=== PATIENT | male | born 1975 | race African-American/Black ===

== ENCOUNTER 2016-08-03 15:12 | Inpatient (IN) | payer MEDICARE, MEDICAID ==
[~2016-08-03] VITALS: Ht 180.3 cm; Wt 71.2 kg
[2016-08-03] MEDS ORDERED: DiphenhydrAMINE 50mg/ml Inj IVP ONE ×2 (16:00→18:00)
[2016-08-03 16:40] LABS: INR 1.1 (0.9-1.1); PROTHROMBIN TIME 11.4 SEC (9.30-11.50)
[2016-08-03 16:46] LABS: TROPONIN I < 0.30 ng/mL (<=0.30)
[2016-08-03 16:49] LABS: ALANINE AMINOTRANSFERASE 78 U/L (3-41); ALBUMIN/GLOBULIN RATIO 1.5 (1.0-2.7); ANION GAP 10 (5-15); ASPARTATE AMINO TRANSFERASE 64 U/L (5-40); CALCIUM 9.2 mg/dL (8.6-10.2); CARBON DIOXIDE 33 mEQ/L (20-30); CHLORIDE 100 mEQ/L (98-107); CREATININE 0.9 mg/dL (0.7-1.2); GLOMERULAR FILTRATION RATE > 60 mL/min (>60); HEMOLYSIS 8; LACTATE DEHYDROGENASE 390 U/L (135-230); SODIUM 143 mEQ/L (135-145); TOTAL PROTEIN 6.4 g/dL (6.6-8.7)
[2016-08-03 16:54] LABS: MEAN CORPUSCULAR HEMOGLOBIN 31.3 PG (27.0-31.0); MEAN CORPUSCULAR HGB CONC 33.3 G/DL (32.0-36.0); MEAN CORPUSCULAR VOLUME 94 FL (80-99); MEAN PLATELET VOLUME 6.3 FL (6.5-10.1); PLATELET COUNT 489 K/UL (150-450); RED BLOOD COUNT 2.43 M/UL (4.70-6.10); RED CELL DISTRIBUTION WIDTH 19.1 % (11.6-14.8); WHITE BLOOD COUNT 19.8 K/UL (4.8-10.8)
[2016-08-03 16:59] VITALS: BP 120/70
[2016-08-03 17:31] LABS: RETICULOCYTE COUNT 1.9 % (0.0-2.0)
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
[2016-08-03] MEDS ORDERED: Cefepime 1gm vial ONE (17:45)
[2016-08-03] MEDS ORDERED: Cefepime HCl 1 GM in D5W 55 ML IVPB ONE (17:45)
[2016-08-03] MEDS ORDERED: Azithromycin Inj IV ONE (17:45)
[2016-08-03] MEDS ORDERED: Azithromycin 500 MG in D5W 275 ML IVPB ONE (17:45)
[2016-08-03] MEDS ORDERED: HYDROmorphone 1mg/ml Carpuject IVP ONE (18:00)
[2016-08-03 18:14] LABS: BASOPHILS % (MANUAL) 1 % (0-2); EOSINOPHILS % (MANUAL) 10 % (0-3); LYMPHOCYTES % (MANUAL) 38 % (20-45); NEUTROPHILS % (MANUAL) 45 % (45-75); NUCLEATED RED BLOOD CELLS 1 /100 WBC; TOTAL CELLS COUNTED 100
[2016-08-03 18:15] LABS: ANISOCYTOSIS 2+; BAND NEUTROPHILS % (MANUAL) 0 % (0-8); HYPOCHROMASIA 2+; PLATELET ESTIMATE INCREASED; POLYCHROMASIA 1+
[2016-08-03 18:16] LABS: MACROCYTES 2+; TARGET CELLS 1+
[2016-08-03 18:21] LABS: SICKLE CELLS OCCASIONAL
[2016-08-03 19:00] VITALS: BP 107/73
[2016-08-03] MEDS ORDERED: HYDROmorphone 1mg/ml Carpuject IVP PRN (19:15)
[2016-08-03] MEDS ORDERED: METHADONE HCL40 M1 PO (19:27)
[2016-08-03] MEDS ORDERED: DILAUDID8 MG PO (19:28)
[2016-08-03] MEDS ORDERED: BENADRYL25 M3 PO (19:28)
[2016-08-03] MEDS ORDERED: HYDREA500 MG PO (19:29)
[2016-08-03] MEDS ORDERED: FOLIC ACID0.4 MG ORAL (19:38)
[2016-08-03] MEDS ORDERED: HYDROMORPHONE HC2 M1 PO (19:40)
[2016-08-03] MEDS ORDERED: FOLIC ACID1 MG ORAL (19:40)
[2016-08-03] MEDS: Heparin 5000 units/ml inj SUBQ SCH (20:22)
[2016-08-03 22:19] LABS: PATH BLOOD SMEAR/OMC SENT TO PATHOLOGIST
[2016-08-03] MEDS: DiphenhydrAMINE 50mg/ml Inj IVP PRN (22:50)
[2016-08-04] VITALS (7 sets, daily range): BP systolic 109–141; BP diastolic 67–90
[2016-08-04] MEDS: DiphenhydrAMINE 50mg/ml Inj IVP PRN ×4 (05:36→21:29)
[2016-08-04 07:12] LABS: MEAN CORPUSCULAR HEMOGLOBIN 30.4 PG (27.0-31.0); MEAN CORPUSCULAR HGB CONC 32.2 G/DL (32.0-36.0); MEAN CORPUSCULAR VOLUME 95 FL (80-99); MEAN PLATELET VOLUME 6.1 FL (6.5-10.1); PLATELET COUNT 433 K/UL (150-450); RED BLOOD COUNT 2.35 M/UL (4.70-6.10); RED CELL DISTRIBUTION WIDTH 19.3 % (11.6-14.8); WHITE BLOOD COUNT 17.7 K/UL (4.8-10.8)
[2016-08-04 07:32] LABS: ALANINE AMINOTRANSFERASE 73 U/L (3-41); ALBUMIN/GLOBULIN RATIO 1.3 (1.0-2.7); ANION GAP 8 (5-15); ASPARTATE AMINO TRANSFERASE 63 U/L (5-40); CALCIUM 8.9 mg/dL (8.6-10.2); CARBON DIOXIDE 33 mEQ/L (20-30); CHLORIDE 103 mEQ/L (98-107); CREATININE 0.8 mg/dL (0.7-1.2); GLOMERULAR FILTRATION RATE > 60 mL/min (>60); HEMOLYSIS 3; POTASSIUM 5.6 mEQ/L (3.4-4.9); SODIUM 144 mEQ/L (135-145); TOTAL PROTEIN 5.9 g/dL (6.6-8.7)
[2016-08-04] MEDS: Heparin 5000 units/ml inj SUBQ SCH (08:43)
[2016-08-04 10:06] LABS: BAND NEUTROPHILS % (MANUAL) 0 % (0-8); BASOPHILS % (MANUAL) 0 % (0-2); EOSINOPHILS % (MANUAL) 14 % (0-3); LYMPHOCYTES % (MANUAL) 33 % (20-45); NEUTROPHILS % (MANUAL) 45 % (45-75); NUCLEATED RED BLOOD CELLS 1 /100 WBC; PLATELET ESTIMATE ADEQUATE; PLATELET MORPHOLOGY NORMAL; POLYCHROMASIA 1+; TOTAL CELLS COUNTED 100
[2016-08-04 10:07] LABS: SICKLE CELLS OCCASIONAL
[2016-08-04 10:08] LABS: ANISOCYTOSIS 2+; HYPOCHROMASIA 2+; MACROCYTES 1+
[2016-08-04] MEDS ORDERED: Sodium Polystyrene Sulfonate 15gm Powder ORAL ONE (10:30)
[2016-08-04 10:54] LABS: OTHERS PATHOLOGIST COMMENT
[2016-08-04] MEDS: Hydroxyurea 500mg cap ORAL SCH ×2 (11:09→18:25)
--- NOTE | 2016-08-04 11:59 | Diagnostic Imaging Report ---
Indication: Chest Pain Comparison: 11/07/11 A single view chest radiograph was obtained. Findings: Vascular congestion and cardiomegaly are present. There is a right chest port which remains in good position. The bones are osteopenic. Impression: Congestive heart failure is suspected.
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
--- NOTE | 2016-08-04 15:05 | History and Physical ---
History of Present Illness General Date patient seen: Aug 03, 2016 Time patient seen: 17:52 Reason for Hospitalization: Pain Present Illness HPI 40 yo M with sickle cell anemia, b/l hip avascular necrosis and chronic pain p/ w chest pain and productive cough. unable to obtain further history as pt is lethargic. Allergies: Coded Allergies: AMPICILLIN (Verified Allergy, Unknown, 08/03/16) KETOROLAC (Verified Allergy, Unknown, 08/03/16) MORPHINE (Verified Allergy, Unknown, 08/03/16) PHENYTOIN (Verified Allergy, Unknown, 08/03/16) Medication History Scheduled Folic Acid* (Folic Acid*), 1 MG ORAL DAILY, (Reported) Hydroxyurea* (Hydrea*), 500 MG PO BID, (Reported) Methadone Hcl (Methadone Hcl), 40 MG PO EVERY 6 HOURS, (Reported) Scheduled PRN Diphenhydramine HCl (Benadryl), 50 MG PO Q4HR PRN for Itching, (Reported) Hydromorphone Hcl (Hydromorphone Hcl), 14 MG PO Q4HR PRN for For Pain, (Reported ) Discontinued Medications Folic Acid (Folic Acid), Unknown Dose ORAL DAILY, (Reported) Discontinued Reason: Prescription changed Hydromorphone Hcl (Dilaudid), 14 MG PO PRN, (Reported) Discontinued Reason: Prescription changed Patient History Healthcare decision maker Resuscitation status Full Code Advanced Directive on File Past Medical/Surgical History Past Medical/Surgical History: (1) Sickle cell crisis (2) Anemia (3) Pneumonia Family History Family History: Patient reports no known family medical history. Social History Social History: (1) No significant social history Review of Systems All Other Systems: negative except mentioned in HPI Physical Exam General Appearance: alert, lethargic, other - in pain HEENT: normocephalic, atraumatic, anicteric, mucous membranes moist, PERRL, EOMI, pharynx normal, no JVD Neck: non-tender, supple Respiratory/Chest: lungs clear, normal breath sounds, no respiratory distress, no accessory muscle use Cardiovascular/Chest: normal peripheral pulses, normal rate, regular rhythm Abdomen: normal bowel sounds, non tender, soft, no mass Extremities: non-tender, other - L foot toe flexion deformities and tender wound on dorsum Skin Exam: warm/dry Neurologic: social insurance adviser 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, no motor/sensory deficits, alert Musculoskeletal: normal muscle bulk Last 24 Hour Vital Signs Date Time Temp Pulse Resp B/P Pulse Ox O2 Delivery O2 Flow Rate FiO2 08/04/16 12:00 97.2 76 20 137/84 100 Nasal Cannula 6.0 08/04/16 08:00 97.2 70 20 121/89 95 Nasal Cannula 6.0 08/04/16 04:00 97.5 72 20 115/76 100 Nasal Cannula 5.0 08/04/16 00:04 97.2 82 21 114/85 95 Room Air 08/03/16 23:20 98.4 08/03/16 19:21 74 13 110/70 100 Nasal Cannula 6.0 08/03/16 19:00 97.2 80 20 107/73 100 Nasal Cannula 6.0 08/03/16 18:56 98.7 08/03/16 16:59 92 29 120/70 100 Nasal Cannula 6.0 08/03/16 16:39 98.7 08/03/16 15:26 98.8 120 16 122/79 88 Room Air Intake and Output 08/03/16 08/04/16 19:00 07:00 Intake Total 55 ml 1350 ml Output Total 650 ml Balance 55 ml 700 ml Intake IV Total 55 ml 1350 ml Output Urine Total 650 ml # Voids 1 2 Laboratory Tests Test 08/03/16 15:55 08/03/16 16:10 08/03/16 21:45 08/04/16 06:00 White Blood Count 19.8 K/UL (4.8-10.8) H 17.7 K/UL (4.8-10.8) H Red Blood Count 2.43 M/UL (4.70-6.10) L 2.35 M/UL (4.70-6.10) L Hemoglobin 7.6 G/DL (14.2-18.0) L 7.2 G/DL (14.2-18.0) L Hematocrit 22.8 % (42.0-52.0) L 22.2 % (42.0-52.0) L Mean Corpuscular Volume 94 FL (80-99) 95 FL (80-99) Mean Corpuscular Hemoglobin 31.3 PG (27.0-31.0) H 30.4 PG (27.0-31.0) Mean Corpuscular Hemoglobin Concent 33.3 G/DL (32.0-36.0) 32.2 G/DL (32.0-36.0) Red Cell Distribution Width 19.1 % (11.6-14.8) H 19.3 % (11.6-14.8) H Platelet Count 489 K/UL (150-450) H 433 K/UL (150-450) Mean Platelet Volume 6.3 FL (6.5-10.1) L 6.1 FL (6.5-10.1) L Neutrophils (%) (Auto) % (45.0-75.0) % (45.0-75.0) Lymphocytes (%) (Auto) % (20.0-45.0) % (20.0-45.0) Monocytes (%) (Auto) % (1.0-10.0) % (1.0-10.0) Eosinophils (%) (Auto) % (0.0-3.0) % (0.0-3.0) Basophils (%) (Auto) % (0.0-2.0) % (0.0-2.0) Differential Total Cells Counted 100 100 Neutrophils % (Manual) 45 % (45-75) 45 % (45-75) Lymphocytes % (Manual) 38 % (20-45) 33 % (20-45) Monocytes % (Manual) 6 % (1-10) 8 % (1-10) Eosinophils % (Manual) 10 % (0-3) H 14 % (0-3) H Basophils % (Manual) 1 % (0-2) 0 % (0-2) Band Neutrophils 0 % (0-8) 0 % (0-8) Nucleated Red Blood Cells 1 /100 WBC 1 /100 WBC Other Cell Type Pathologist comment Platelet Estimate Increased H Adequate Platelet Morphology See comment Normal Giant Platelets Rare Polychromasia 1+ 1+ Hypochromasia 2+ 2+ Anisocytosis 2+ 2+ Macrocytosis 2+ 1+ Sickle Cells Occasional H Occasional H Target Cells 1+ Reticulocyte Count 1.9 % (0.0-2.0) 3.7 % (0.0-2.0) H Prothrombin Time 11.4 SEC (9.30-11.50) Prothromb Time International Ratio 1.1 (0.9-1.1) Activated Partial Thromboplast Time 33 SEC (23-33) Sodium Level 143 mEQ/L (135-145) 144 mEQ/L (135-145) Potassium Level 5.0 mEQ/L (3.4-4.9) H 5.6 mEQ/L (3.4-4.9) H Chloride Level 100 mEQ/L (98-107) 103 mEQ/L (98-107) Carbon Dioxide Level 33 mEQ/L (20-30) H 33 mEQ/L (20-30) H Anion Gap 10 (5-15) 8 (5-15) Blood Urea Nitrogen 24 mg/dL (7-23) H 22 mg/dL (7-23) Creatinine 0.9 mg/dL (0.7-1.2) 0.8 mg/dL (0.7-1.2) Estimat Glomerular Filtration Rate > 60 mL/min (>60) > 60 mL/min (>60) Glucose Level 86 mg/dL (74-106) 81 mg/dL (74-106) Lactic Acid Level 0.70 mmol/L (0.66-2.22) Calcium Level 9.2 mg/dL (8.6-10.2) 8.9 mg/dL (8.6-10.2) Total Bilirubin 1.0 mg/dL (0.0-1.2) 0.9 mg/dL (0.0-1.2) Aspartate Amino Transf (AST/SGOT) 64 U/L (5-40) H 63 U/L (5-40) H Alanine Aminotransferase (ALT/SGPT) 78 U/L (3-41) H 73 U/L (3-41) H Alkaline Phosphatase 199 U/L (40-129) H 160 U/L (40-129) H Lactate Dehydrogenase 390 U/L (135-230) H Total Creatine Kinase 26 U/L (38-174) L Troponin I < 0.30 ng/mL (<=0.30) Pro-B-Type Natriuretic Peptide 599 pg/mL (0-125) H Total Protein 6.4 g/dL (6.6-8.7) L 5.9 g/dL (6.6-8.7) L Albumin 3.9 g/dL (3.5-5.2) 3.4 g/dL (3.5-5.2) L Globulin 2.5 g/dL 2.5 g/dL Albumin/Globulin Ratio 1.5 (1.0-2.7) 1.3 (1.0-2.7) Urine Opiates Screen Positive (NEGATIVE) H Urine Barbiturates Screen Negative (NEGATIVE) Phencyclidine (PCP) Screen Negative (NEGATIVE) Urine Amphetamines Screen Negative (NEGATIVE) Urine Benzodiazepines Screen Negative (NEGATIVE) Urine Cocaine Screen Negative (NEGATIVE) Urine Marijuana (THC) Screen Negative (NEGATIVE) Hemoglobin A Pending Hemoglobin A2 Pending Hemoglobin C Pending Hemoglobin F () Pending Hemoglobin S Pending Variant Hemoglobin Pending Hemoglobin Electrophoresis Interp Pending Hemoglobin Interpretation Pending Hemoglobin Solubility Pending Ferritin 6935 ng/mL (10-230) H Microbiology Date/Time Source Procedure Growth Status 08/03/16 16:15 Nose Influenza Types A,B Antigen (LEANDRO) - Final Complete Height (Feet): 5 Height (Inches): 11.00 Weight (Pounds): 157 Medications Current Medications Medications (Trade) Dose Ordered Sig/Anthony Route PRN Reason Start Time Stop Time Status Last Admin Dose Admin Acetaminophen (Tylenol) 650 mg Q4H PRN ORAL Mild Pain (Pain Scale 1-3) 08/03/16 19:15 09/02/16 19:14 Acetaminophen (Tylenol) 650 mg Q4H PRN ORAL fever 08/03/16 19:15 09/02/16 19:14 Azithromycin 500 mg/Dextrose 275 ml @ 275 mls/hr Q24HRS IV 08/04/16 18:00 08/10/16 18:59 Ceftriaxone Sodium/Dextrose (Rocephin/D5W) 55 ml @ 110 mls/hr Q24H IVPB 08/04/16 20:00 08/11/16 19:59 Dextrose STAT PRN IV Hypoglycemia 08/03/16 19:15 09/02/16 19:14 Diphenhydramine HCl (Benadryl) 25 mg Q6H PRN IVP Itching 08/03/16 22:45 09/02/16 22:44 08/04/16 11:39 Folic Acid (Folate) 1 mg DAILY ORAL 08/04/16 09:00 09/03/16 08:59 08/04/16 08:42 Heparin Sodium (Porcine) (Heparin 5000 units/ml) 5,000 units EVERY 12 HOURS SUBQ 08/03/16 21:00 09/02/16 20:59 08/04/16 08:43 Hydromorphone HCl (Dilaudid) 1 mg Q4H PRN IVP Moderate Pain (Pain Scale 4-6) 08/03/16 19:15 08/10/16 19:14 Hydromorphone HCl (Dilaudid) 2 mg Q4H PRN IVP Severe Pain (Pain Scale 7-10) 08/03/16 19:15 08/10/16 19:14 08/04/16 11:39 Hydroxyurea (Hydrea) 500 mg BID ORAL 08/04/16 09:00 08/09/16 08:59 08/04/16 11:09 Methadone HCl (Methadone HCl) 40 mg Q6HR ORAL 08/04/16 12:00 08/11/16 11:59 08/04/16 12:25 Ondansetron HCl (Zofran) 4 mg Q6H PRN IVP Nausea & Vomiting 08/03/16 19:15 09/02/16 19:14 Sodium Chloride (Sodium Chloride 1000ml bag) 1,000 ml @ 150 mls/hr Q6H40M IVLG 08/03/16 20:00 09/02/16 19:59 08/04/16 11:10 Assessment/Plan Problem List: (1) Sickle cell crisis ICD Codes: D57.00 - Hb-SS disease with crisis, unspecified SNOMED: 494086613 (2) Anemia ICD Codes: D64.9 - Anemia, unspecified SNOMED: 008549597 (3) Pneumonia ICD Codes: J18.9 - Pneumonia, unspecified organism SNOMED: 359847941 Status: progressing Assessment/Plan med surg IV Dil prn pain resume home dose of methadone folate hydroxyurea c/s heme ctm H and H transfuse if hg <7 O2 Nakita Hwang M.D. Aug 04, 2016 15:05
--- NOTE | 2016-08-04 17:14 | General Progress Note ---
Assessment/Plan Problem List: (1) Sickle cell crisis ICD Codes: D57.00 - Hb-SS disease with crisis, unspecified SNOMED: 643568908 (2) Anemia ICD Codes: D64.9 - Anemia, unspecified SNOMED: 843992508 (3) Pneumonia ICD Codes: J18.9 - Pneumonia, unspecified organism SNOMED: 095385349 Assessment/Plan med surg IV Dil prn pain Ceftriaxone and Azithromycin resume home dose of methadone c/s pain, Zarrini folate hydroxyurea c/s heme ctm H and H transfuse if hg <7 O2 IVF, 150-->75 cc/h Subjective Date patient seen: Aug 04, 2016 Time patient seen: 17:13 Allergies: Coded Allergies: AMPICILLIN (Verified Allergy, Unknown, 08/03/16) KETOROLAC (Verified Allergy, Unknown, 08/03/16) MORPHINE (Verified Allergy, Unknown, 08/03/16) PHENYTOIN (Verified Allergy, Unknown, 08/03/16) Subjective pt requesting to have IV benadryl in place of PO; and wants it every 4 hours Objective Last 24 Hour Vital Signs Date Time Temp Pulse Resp B/P Pulse Ox O2 Delivery O2 Flow Rate FiO2 08/04/16 16:00 97.5 88 18 109/71 81 08/04/16 12:00 97.2 76 20 137/84 100 Nasal Cannula 6.0 08/04/16 08:00 97.2 70 20 121/89 95 Nasal Cannula 6.0 08/04/16 04:00 97.5 72 20 115/76 100 Nasal Cannula 5.0 08/04/16 00:04 97.2 82 21 114/85 95 Room Air 08/03/16 23:20 98.4 08/03/16 19:21 74 13 110/70 100 Nasal Cannula 6.0 08/03/16 19:00 97.2 80 20 107/73 100 Nasal Cannula 6.0 08/03/16 18:56 98.7 Intake and Output 08/03/16 08/04/16 19:00 07:00 Intake Total 55 ml 1350 ml Output Total 650 ml Balance 55 ml 700 ml Intake IV Total 55 ml 1350 ml Output Urine Total 650 ml # Voids 1 2 Laboratory Tests 08/03/16 21:45: Hemoglobin A [Pending], Hemoglobin A2 [Pending], Hemoglobin C [Pending], Hemoglobin F () [Pending], Hemoglobin S [Pending], Variant Hemoglobin [ Pending], Hemoglobin Electrophoresis Interp [Pending], Hemoglobin Interpretation [Pending], Hemoglobin Solubility [Pending], Ferritin 6935H 08/04/16 06:00: White Blood Count 17.7H, Red Blood Count 2.35L, Hemoglobin 7.2L, Hematocrit 22.2L, Mean Corpuscular Volume 95, Mean Corpuscular Hemoglobin 30.4, Mean Corpuscular Hemoglobin Concent 32.2, Red Cell Distribution Width 19.3H, Platelet Count 433, Mean Platelet Volume 6.1L, Neutrophils (%) (Auto) , Lymphocytes (%) (Auto) , Monocytes (%) (Auto) , Eosinophils (%) (Auto) , Basophils (%) (Auto) , Differential Total Cells Counted 100, Neutrophils % ( Manual) 45, Lymphocytes % (Manual) 33, Monocytes % (Manual) 8, Eosinophils % ( Manual) 14H, Basophils % (Manual) 0, Band Neutrophils 0, Nucleated Red Blood Cells 1, Platelet Estimate Adequate, Platelet Morphology Normal, Polychromasia 1 +, Hypochromasia 2+, Anisocytosis 2+, Macrocytosis 1+, Sickle Cells OccasionalH , Reticulocyte Count 3.7H, Sodium Level 144, Potassium Level 5.6H, Chloride Level 103, Carbon Dioxide Level 33H, Anion Gap 8, Blood Urea Nitrogen 22, Creatinine 0.8, Estimat Glomerular Filtration Rate > 60, Glucose Level 81, Calcium Level 8.9, Total Bilirubin 0.9, Aspartate Amino Transf (AST/SGOT) 63H, Alanine Aminotransferase (ALT/SGPT) 73H, Alkaline Phosphatase 160H, Total Protein 5.9L, Albumin 3.4L, Globulin 2.5, Albumin/Globulin Ratio 1.3 Height (Feet): 5 Height (Inches): 11.00 Weight (Pounds): 157 Objective General Appearance: alert, awake and in NAD HEENT: normocephalic, atraumatic, anicteric, mucous membranes moist, PERRL, EOMI, pharynx normal, no JVD Neck: non-tender, supple Respiratory/Chest: bibasilar crackles Cardiovascular/Chest: normal peripheral pulses, normal rate, regular rhythm Abdomen: normal bowel sounds, non tender, soft, no mass Extremities: non-tender, other - L foot toe flexion deformities and tender wound on dorsum Skin Exam: warm/dry Neurologic: outpatient interviewing clerk 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, no motor/sensory deficits, alert Musculoskeletal: normal muscle bulk Nakita Borden M.D. Aug 04, 2016 17:14
[2016-08-04] MEDS: Azithromycin 500 MG in D5W 275 ML IV SCH (17:34)
[2016-08-04] MEDS: cefTRIAXone 1 GM in D5W 55 ML IVPB SCH (20:18)
[2016-08-05] MEDS: DiphenhydrAMINE 50mg/ml Inj IVP PRN ×6 (01:34→22:39)
--- NOTE | 2016-08-05 03:27 | Consultation ---
DATE OF CONSULTATION: 08/04/2016 HEMATOLOGY/ONCOLOGY CONSULTATION REQUESTING PHYSICIAN: Nakita Borden M.D. REASON FOR CONSULTATION: Evaluation of sickle cell crisis. IDENTIFICATION: Dear Dr. Borden: The patient is a pleasant 40-year-old male with a past medical history significant for sickle cell anemia, bilateral hip necrosis avascular, history of stroke at the age of 10, and chronic pain, at this time presents with chest pain as well as productive cough. The patient was lethargic in the ER, however, upon presentation to the floor, he was evaluated by me and has been doing well with his sickle cell disease, relatively stable. He has sickle cell crisis and he has been on hydroxyurea 500 mg p.o. b.i.d., gave Dilaudid here in the ER and is getting Dilaudid every four hours on a p.r.n. basis as well as continued folic acid. He has not been seen by scheduling clerk in the recent past. PAST MEDICAL HISTORY: Sickle cell disease, sickle cell anemia, hip avascular necrosis, and chronic pain. PAST SURGICAL HISTORY: None noted. MEDICATIONS: Hydroxyurea and folic acid at home. Medications currently Benadryl, ceftriaxone, methadone, Dilaudid, Zofran, dextrose, hydroxyurea 500 mg p.o. b.i.d., and heparin 5000 units subcutaneously q.12 h. SOCIAL HISTORY: No alcohol, tobacco, or illicit drug use. FAMILY HISTORY: Does have a history of sickle cell as well in the patient's mother who at the age of 33. REVIEW OF SYSTEMS: Constitutional: No fever, chills, or night sweats. Skin: No rashes, lumps, or itching. HEENT: No headache or vision changes. Breasts: No lumps, pain, or discharge. Pulmonary: Improved breathing at this time. Cardiovascular: The patient does have some chest pain and some tightness, however, no palpitations. Gastrointestinal: No nausea, vomiting, or diarrhea. Genitourinary: No dysuria, frequency, or urgency. Musculoskeletal: No joint swelling, muscle pain, or trauma. Neurological: No dizziness, fainting, or seizures. PHYSICAL EXAMINATION: GENERAL: The patient is in no acute distress. VITAL SIGNS: Temperature is 97.5 degrees Fahrenheit, respiratory rate 12, blood pressure 109/71, and pulse oximetry 100% on nasal cannula of six liters. PULMONARY: Decreased breath sounds bilaterally CARDIOVASCULAR: Regular rate. No S3 or S4. GASTROINTESTINAL: Abdomen is soft, nontender, and nondistended. EXTREMITIES: A 1+ edema. LABORATORY AND DIAGNOSTIC DATA: WBC is 17.7, hemoglobin 7.2, hematocrit 22, and platelet count of 433,000. Reticulocyte count is 1.7. Hemoglobin electrophoresis is pending. BUN of 22, creatinine 0.8. INR of 1.1. Urine toxicology reviewed. ASSESSMENT: 1. Sickle cell crisis without any evidence of acute chest syndrome. The patient's reticulocyte count is elevated. Hemoglobin at this time is 7.2. 2. Leukocytosis, reactive process from anemia. 3. Thrombocytosis probably secondary to reactive process. 4. Avascular necrosis. 5. Pain from sickle cell crisis. 6. Chest pain potentially related to pneumonia, is on antibiotics. 7. Productive cough, likely secondary to pneumonia. RECOMMENDATIONS: 1. Monitor counts. 2. Transfuse to maintain hemoglobin above 7. 3. Continue hydroxyurea 500 mg. 4. Continue folic acid. 5. Hemoglobin electrophoresis ordered. 6. Pain management. 7. DVT prophylaxis with SCDs. Order has been placed. 8. Anemia workup to be reviewed. 9. Peripheral smear ordered. 10. Outpatient Hematology followup has been sent out. 11. The patient will need iron chelation therapy as ferritin is 6935. 12. We will need to check the patient for cardiac as well as iron overload. 13. Will need yearly retinal exam. 14. Will consider to increase hydroxyurea as an outpatient. 15. Continue IV fluids. 16. Discussed with staff. Thank you, Dr. Nakita Borden for this kind referral. Please do not hesitate to contact me if you have any further questions. Marco Dutton M.D. DR: SANA JOB#: [id number] CC:
[2016-08-05 03:53] VITALS: BP 138/101
[2016-08-05 08:00] VITALS: BP 106/72
[2016-08-05] MEDS: Hydroxyurea 500mg cap ORAL SCH ×2 (08:52→17:41)
--- NOTE | 2016-08-05 10:34 | Consultation ---
History of Present Illness General Date patient seen: Aug 05, 2016 Chief Complaint: Pain Present Illness Allergies: Coded Allergies: AMPICILLIN (Verified Allergy, Unknown, 08/03/16) KETOROLAC (Verified Allergy, Unknown, 08/03/16) MORPHINE (Verified Allergy, Unknown, 08/03/16) PHENYTOIN (Verified Allergy, Unknown, 08/03/16) Medication History Scheduled Folic Acid* (Folic Acid*), 1 MG ORAL DAILY, (Reported) Hydroxyurea* (Hydrea*), 500 MG PO BID, (Reported) Methadone Hcl (Methadone Hcl), 40 MG PO EVERY 6 HOURS, (Reported) Scheduled PRN Diphenhydramine HCl (Benadryl), 50 MG PO Q4HR PRN for Itching, (Reported) Hydromorphone Hcl (Hydromorphone Hcl), 14 MG PO Q4HR PRN for For Pain, (Reported ) Discontinued Medications Folic Acid (Folic Acid), Unknown Dose ORAL DAILY, (Reported) Discontinued Reason: Prescription changed Hydromorphone Hcl (Dilaudid), 14 MG PO PRN, (Reported) Discontinued Reason: Prescription changed Patient History Healthcare decision maker Resuscitation status Full Code Advanced Directive on File Physical Exam Last 24 Hour Vital Signs Date Time Temp Pulse Resp B/P Pulse Ox O2 Delivery O2 Flow Rate FiO2 08/05/16 08:00 96.9 77 17 106/72 96 Room Air 08/05/16 03:53 97.2 79 18 138/101 99 Nasal Cannula 2.0 08/04/16 23:53 98.8 80 18 141/90 97 Nasal Cannula 2.0 08/04/16 21:58 97.5 08/04/16 20:00 97.5 84 16 112/67 90 Room Air 08/04/16 16:00 97.5 88 18 109/71 81 08/04/16 12:00 97.2 76 20 137/84 100 Nasal Cannula 6.0 Intake and Output 08/04/16 08/05/16 19:00 07:00 Intake Total 1475 ml 1695 ml Output Total 700 ml 1500 ml Balance 775 ml 195 ml Intake Oral 830 ml IV Total 1475 ml 865 ml Output Urine Total 700 ml 1500 ml # Voids 2 3 # Bowel Movements 1 Height (Feet): 5 Height (Inches): 11.00 Weight (Pounds): 157 Medications Current Medications Medications (Trade) Dose Ordered Sig/Anthony Route PRN Reason Start Time Stop Time Status Last Admin Dose Admin Acetaminophen (Tylenol) 650 mg Q4H PRN ORAL Mild Pain (Pain Scale 1-3) 08/03/16 19:15 09/02/16 19:14 Acetaminophen (Tylenol) 650 mg Q4H PRN ORAL fever 08/03/16 19:15 09/02/16 19:14 Azithromycin 500 mg/Dextrose 275 ml @ 275 mls/hr Q24HRS IV 08/04/16 18:00 08/10/16 18:59 08/04/16 17:34 Ceftriaxone Sodium/Dextrose (Rocephin/D5W) 55 ml @ 110 mls/hr Q24H IVPB 08/04/16 20:00 08/11/16 19:59 08/04/16 20:18 Dextrose STAT PRN IV Hypoglycemia 08/03/16 19:15 09/02/16 19:14 Diphenhydramine HCl (Benadryl) 25 mg EVERY 4 HOURS PRN IVP Itching 08/04/16 21:00 09/03/16 20:59 08/05/16 09:53 Folic Acid (Folate) 1 mg DAILY ORAL 08/04/16 09:00 09/03/16 08:59 08/05/16 08:52 Hydromorphone HCl (Dilaudid) 1 mg Q4H PRN IVP Moderate Pain (Pain Scale 4-6) 08/03/16 19:15 08/10/16 19:14 Hydromorphone HCl (Dilaudid) 2 mg Q4H PRN IVP Severe Pain (Pain Scale 7-10) 08/03/16 19:15 08/10/16 19:14 08/05/16 09:54 Hydroxyurea (Hydrea) 500 mg BID ORAL 08/04/16 09:00 08/09/16 08:59 08/05/16 08:52 Methadone HCl 40 mg 40 mg Q6HR ORAL 08/04/16 12:00 08/11/16 11:59 08/05/16 05:35 Ondansetron HCl (Zofran) 4 mg Q6H PRN IVP Nausea & Vomiting 08/03/16 19:15 09/02/16 19:14 Sodium Chloride (Sodium Chloride 1000ml bag) 1,000 ml @ 75 mls/hr [id number] IVLG 08/04/16 18:00 09/03/16 17:59 08/05/16 05:49 Assessment/Plan Assessment/Plan (1) Sickle Cell Disease (2) Sickle Cell Crisis (4) Intractable pain Seen Dictated ANTIONE PHILLIPS Aug 05, 2016 10:34
[2016-08-05 12:00] VITALS: BP 118/82
[2016-08-05 12:14] LABS: MEAN CORPUSCULAR HEMOGLOBIN 30.1 PG (27.0-31.0); MEAN CORPUSCULAR HGB CONC 32.3 G/DL (32.0-36.0); MEAN CORPUSCULAR VOLUME 93 FL (80-99); MEAN PLATELET VOLUME 7.4 FL (6.5-10.1); PLATELET COUNT 416 K/UL (150-450); RED BLOOD COUNT 2.37 M/UL (4.70-6.10); RED CELL DISTRIBUTION WIDTH 18.3 % (11.6-14.8); WHITE BLOOD COUNT 14.6 K/UL (4.8-10.8)
[2016-08-05 12:29] LABS: ALANINE AMINOTRANSFERASE 84 U/L (3-41); ALBUMIN/GLOBULIN RATIO 1.5 (1.0-2.7); ANION GAP 6 (5-15); ASPARTATE AMINO TRANSFERASE 71 U/L (5-40); CALCIUM 8.5 mg/dL (8.6-10.2); CARBON DIOXIDE 34 mEQ/L (20-30); CHLORIDE 102 mEQ/L (98-107); CREATININE 0.7 mg/dL (0.7-1.2); GLOMERULAR FILTRATION RATE > 60 mL/min (>60); HEMOLYSIS 23; SODIUM 142 mEQ/L (135-145); TOTAL PROTEIN 5.8 g/dL (6.6-8.7)
[2016-08-05 12:43] LABS: ANISOCYTOSIS 1+; BAND NEUTROPHILS % (MANUAL) 0 % (0-8); BASOPHILS % (MANUAL) 0 % (0-2); EOSINOPHILS % (MANUAL) 11 % (0-3); HYPOCHROMASIA 1+; LYMPHOCYTES % (MANUAL) 25 % (20-45); NEUTROPHILS % (MANUAL) 53 % (45-75); NUCLEATED RED BLOOD CELLS 1 /100 WBC; PLATELET ESTIMATE ADEQUATE; PLATELET MORPHOLOGY NORMAL; POLYCHROMASIA 1+; TOTAL CELLS COUNTED 100
[2016-08-05 16:00] VITALS: BP 113/75
[2016-08-05] MEDS: Azithromycin 500 MG in D5W 275 ML IV SCH (17:41)
--- NOTE | 2016-08-05 18:50 | General Progress Note ---
Assessment/Plan Problem List: (1) Sickle cell crisis ICD Codes: D57.00 - Hb-SS disease with crisis, unspecified SNOMED: 925009313 (2) Anemia ICD Codes: D64.9 - Anemia, unspecified SNOMED: 588443484 Qualifiers: Qualified Codes: D64.89 - Other specified anemias (3) Pneumonia ICD Codes: J18.9 - Pneumonia, unspecified organism SNOMED: 566204361 Qualifiers: Qualified Codes: J18.9 - Pneumonia, unspecified organism (4) Avascular necrosis of femur head, left ICD Codes: M87.052 - Idiopathic aseptic necrosis of left femur SNOMED: 691087831 (5) Avascular necrosis of femur head, right ICD Codes: M87.051 - Idiopathic aseptic necrosis of right femur SNOMED: 831482959 Assessment/Plan med surg IV Dil prn pain Ceftriaxone and Azithromycin resume home dose of methadone c/s pain, Zarrini; pt started on baclofen and gabapentin folate hydroxyurea c/s heme ctm H and H transfuse if hg <7 O2 dc IVF, 150-->75 cc/h hip XR Subjective Date patient seen: Aug 05, 2016 Time patient seen: 18:48 Allergies: Coded Allergies: AMPICILLIN (Verified Allergy, Unknown, 08/03/16) KETOROLAC (Verified Allergy, Unknown, 08/03/16) MORPHINE (Verified Allergy, Unknown, 08/03/16) PHENYTOIN (Verified Allergy, Unknown, 08/03/16) Subjective pain controlled; no sob/cp; c/o hip pain L>R Objective Last 24 Hour Vital Signs Date Time Temp Pulse Resp B/P Pulse Ox O2 Delivery O2 Flow Rate FiO2 08/05/16 16:00 97.9 80 16 113/75 08/05/16 14:15 96.8 08/05/16 14:15 96.8 08/05/16 12:00 96.9 77 17 118/82 97 Room Air 08/05/16 08:00 96.9 77 17 106/72 96 Room Air 08/05/16 03:53 97.2 79 18 138/101 99 Nasal Cannula 2.0 08/04/16 23:53 98.8 80 18 141/90 97 Nasal Cannula 2.0 08/04/16 20:00 97.5 84 16 112/67 90 Room Air Intake and Output 08/04/16 08/05/16 19:00 07:00 Intake Total 1475 ml 1695 ml Output Total 700 ml 1500 ml Balance 775 ml 195 ml Intake Oral 830 ml IV Total 1475 ml 865 ml Output Urine Total 700 ml 1500 ml # Voids 2 3 # Bowel Movements 1 Laboratory Tests 08/05/16 11:50: White Blood Count 14.6H, Red Blood Count 2.37L, Hemoglobin 7.1L, Hematocrit 22.1L, Mean Corpuscular Volume 93, Mean Corpuscular Hemoglobin 30.1, Mean Corpuscular Hemoglobin Concent 32.3, Red Cell Distribution Width 18.3H, Platelet Count 416, Mean Platelet Volume 7.4, Neutrophils (%) (Auto) , Lymphocytes (%) (Auto) , Monocytes (%) (Auto) , Eosinophils (%) (Auto) , Basophils (%) (Auto) , Differential Total Cells Counted 100, Neutrophils % ( Manual) 53, Lymphocytes % (Manual) 25, Monocytes % (Manual) 11H, Eosinophils % ( Manual) 11H, Basophils % (Manual) 0, Band Neutrophils 0, Nucleated Red Blood Cells 1, Platelet Estimate Adequate, Platelet Morphology Normal, Polychromasia 1 +, Hypochromasia 1+, Anisocytosis 1+, Reticulocyte Count 5.9H, Sodium Level 142 , Potassium Level 5.0H, Chloride Level 102, Carbon Dioxide Level 34H, Anion Gap 6, Blood Urea Nitrogen 16, Creatinine 0.7, Estimat Glomerular Filtration Rate > 60, Glucose Level 93, Calcium Level 8.5L, Total Bilirubin 0.9, Aspartate Amino Transf (AST/SGOT) 71H, Alanine Aminotransferase (ALT/SGPT) 84H, Alkaline Phosphatase 194H, Total Protein 5.8L, Albumin 3.5, Globulin 2.3, Albumin/ Globulin Ratio 1.5 Height (Feet): 5 Height (Inches): 11.00 Weight (Pounds): 157 Objective General Appearance: alert, awake and in NAD HEENT: normocephalic, atraumatic, anicteric, mucous membranes moist, PERRL, EOMI, pharynx normal, no JVD Neck: non-tender, supple Respiratory/Chest: bibasilar crackles Cardiovascular/Chest: normal peripheral pulses, normal rate, regular rhythm Abdomen: normal bowel sounds, non tender, soft, no mass Extremities: non-tender, other - L foot toe flexion deformities and tender wound on dorsum Skin Exam: warm/dry 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 Aug 05, 2016 18:50
--- NOTE | 2016-08-05 19:40 | General Progress Note ---
Assessment/Plan Assessment/Plan ASSEMENT: 1. Sickle cell crisis with no evidence of acute chest syndrome. Hgb is 7.2 at this time 2. Thrombocytosis likely due to reactive process 3. Leukocytosis due to reactive process from Anemia 4 Avascular Necrosis of the hip 5. Pain from the sickle cell crisis 6. pneumonia - on abx RECOMMENDATIONS: - Monitor cell count -continue hydroxyurea 500mg -continue Folic acid -adequate hydration -pain management -DVT Prophylaxis with SCD out patient Hematology follow up - staff Subjective Constitutional: Reports: malaise, no symptoms, other HEENT: Reports: no symptoms Cardiovascular: Reports: no symptoms Respiratory: Reports: no symptoms Gastrointestinal/Abdominal: Reports: no symptoms 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: Reports: no symptoms Endocrine: Reports: no symptoms Hematologic/Lymphatic: Reports: anemia Allergies: Coded Allergies: AMPICILLIN (Verified Allergy, Unknown, 08/03/16) KETOROLAC (Verified Allergy, Unknown, 08/03/16) MORPHINE (Verified Allergy, Unknown, 08/03/16) PHENYTOIN (Verified Allergy, Unknown, 08/03/16) Subjective patient is some pains from sickle cell crisis Objective Last 24 Hour Vital Signs Date Time Temp Pulse Resp B/P Pulse Ox O2 Delivery O2 Flow Rate FiO2 08/05/16 18:58 97.9 08/05/16 18:40 97.9 08/05/16 16:00 97.9 80 16 113/75 08/05/16 12:00 96.9 77 17 118/82 97 Room Air 08/05/16 08:00 96.9 77 17 106/72 96 Room Air 08/05/16 03:53 97.2 79 18 138/101 99 Nasal Cannula 2.0 Intake and Output 08/05/16 08/05/16 11:00 23:00 Intake Total 975 ml 870 ml Output Total 1500 ml Balance -525 ml 870 ml Intake Oral 450 ml 660 ml IV Total 525 ml 210 ml Output Urine Total 1500 ml # Voids 3 Laboratory Tests 08/05/16 11:50: White Blood Count 14.6H, Red Blood Count 2.37L, Hemoglobin 7.1L, Hematocrit 22.1L, Mean Corpuscular Volume 93, Mean Corpuscular Hemoglobin 30.1, Mean Corpuscular Hemoglobin Concent 32.3, Red Cell Distribution Width 18.3H, Platelet Count 416, Mean Platelet Volume 7.4, Neutrophils (%) (Auto) , Lymphocytes (%) (Auto) , Monocytes (%) (Auto) , Eosinophils (%) (Auto) , Basophils (%) (Auto) , Differential Total Cells Counted 100, Neutrophils % ( Manual) 53, Lymphocytes % (Manual) 25, Monocytes % (Manual) 11H, Eosinophils % ( Manual) 11H, Basophils % (Manual) 0, Band Neutrophils 0, Nucleated Red Blood Cells 1, Platelet Estimate Adequate, Platelet Morphology Normal, Polychromasia 1 +, Hypochromasia 1+, Anisocytosis 1+, Reticulocyte Count 5.9H, Sodium Level 142 , Potassium Level 5.0H, Chloride Level 102, Carbon Dioxide Level 34H, Anion Gap 6, Blood Urea Nitrogen 16, Creatinine 0.7, Estimat Glomerular Filtration Rate > 60, Glucose Level 93, Calcium Level 8.5L, Total Bilirubin 0.9, Aspartate Amino Transf (AST/SGOT) 71H, Alanine Aminotransferase (ALT/SGPT) 84H, Alkaline Phosphatase 194H, Total Protein 5.8L, Albumin 3.5, Globulin 2.3, Albumin/ Globulin Ratio 1.5 Height (Feet): 5 Height (Inches): 11.00 Weight (Pounds): 157 General Appearance: no apparent distress EENT: PERRL/EOMI Neck: supple Cardiovascular: normal rate, regular rhythm Respiratory/Chest: no respiratory distress Abdomen: non tender Extremities: non-tender Edema: 1+ Leg (L), 1+ Leg (R) Neurologic: alert Skin: warm/dry Marco Dutton Aug 05, 2016 19:40
[2016-08-05 20:00] VITALS: BP 128/88
[2016-08-05] MEDS: cefTRIAXone 1 GM in D5W 55 ML IVPB SCH (20:14)
[2016-08-06] VITALS: BP 136/94
[2016-08-06] MEDS: DiphenhydrAMINE 50mg/ml Inj IVP PRN ×5 (02:33→20:34)
[2016-08-06 04:00] VITALS: BP 128/86
[2016-08-06 08:14] VITALS: BP 148/76
[2016-08-06] MEDS: Hydroxyurea 500mg cap ORAL SCH ×2 (08:35→19:02)
--- NOTE | 2016-08-06 10:40 | General Progress Note ---
Assessment/Plan Assessment/Plan ASSEMENT: 1. Sickle cell crisis with no evidence of acute chest syndrome. Hgb >7, retic elevated 2. Thrombocytosis likely due to reactive process 3. Leukocytosis due to reactive process from Anemia 4 Avascular Necrosis of the hip 5. Pain from the sickle cell crisis 6. pneumonia - on abx RECOMMENDATIONS: - Monitor cell count - Continue hydroxyurea 500mg - Continue Folic acid - Adequate hydration - Pain management - DVT Prophylaxis with SCD - Out patient Hematology follow up - staff Sincerely, Alfredo Dutton MD Subjective Constitutional: Reports: no symptoms HEENT: Reports: no symptoms Cardiovascular: Reports: no symptoms Respiratory: Reports: no symptoms Gastrointestinal/Abdominal: Reports: poor appetite Genitourinary: Reports: no symptoms 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: Reports: no symptoms Endocrine: Reports: no symptoms Hematologic/Lymphatic: Reports: anemia Allergies: Coded Allergies: AMPICILLIN (Verified Allergy, Unknown, 08/03/16) KETOROLAC (Verified Allergy, Unknown, 08/03/16) MORPHINE (Verified Allergy, Unknown, 08/03/16) PHENYTOIN (Verified Allergy, Unknown, 08/03/16) Subjective no hematemesis, no fevers, no chills. Pain is better Objective Last 24 Hour Vital Signs Date Time Temp Pulse Resp B/P Pulse Ox O2 Delivery O2 Flow Rate FiO2 08/06/16 08:14 98.3 74 21 148/76 97 Nasal Cannula 2.0 08/06/16 04:00 98.8 88 18 128/86 94 Nasal Cannula 2.0 08/06/16 00:00 98.1 83 18 136/94 93 Nasal Cannula 2.0 08/05/16 23:09 97.7 08/05/16 20:00 97.7 83 16 128/88 94 Room Air 08/05/16 18:40 97.9 08/05/16 16:00 97.9 80 16 113/75 08/05/16 12:00 96.9 77 17 118/82 97 Room Air Intake and Output 08/05/16 08/06/16 19:00 07:00 Intake Total 1145 ml 785 ml Output Total 1400 ml Balance 1145 ml -615 ml Intake Oral 660 ml 730 ml IV Total 485 ml 55 ml Output Urine Total 1400 ml # Voids 3 3 Laboratory Tests 08/05/16 11:50: White Blood Count 14.6H, Red Blood Count 2.37L, Hemoglobin 7.1L, Hematocrit 22.1L, Mean Corpuscular Volume 93, Mean Corpuscular Hemoglobin 30.1, Mean Corpuscular Hemoglobin Concent 32.3, Red Cell Distribution Width 18.3H, Platelet Count 416, Mean Platelet Volume 7.4, Neutrophils (%) (Auto) , Lymphocytes (%) (Auto) , Monocytes (%) (Auto) , Eosinophils (%) (Auto) , Basophils (%) (Auto) , Differential Total Cells Counted 100, Neutrophils % ( Manual) 53, Lymphocytes % (Manual) 25, Monocytes % (Manual) 11H, Eosinophils % ( Manual) 11H, Basophils % (Manual) 0, Band Neutrophils 0, Nucleated Red Blood Cells 1, Platelet Estimate Adequate, Platelet Morphology Normal, Polychromasia 1 +, Hypochromasia 1+, Anisocytosis 1+, Reticulocyte Count 5.9H, Sodium Level 142 , Potassium Level 5.0H, Chloride Level 102, Carbon Dioxide Level 34H, Anion Gap 6, Blood Urea Nitrogen 16, Creatinine 0.7, Estimat Glomerular Filtration Rate > 60, Glucose Level 93, Calcium Level 8.5L, Total Bilirubin 0.9, Aspartate Amino Transf (AST/SGOT) 71H, Alanine Aminotransferase (ALT/SGPT) 84H, Alkaline Phosphatase 194H, Total Protein 5.8L, Albumin 3.5, Globulin 2.3, Albumin/ Globulin Ratio 1.5 08/06/16 06:45: Reticulocyte Count [Pending] Height (Feet): 5 Height (Inches): 11.00 Weight (Pounds): 157 General Appearance: alert EENT: TMs normal Neck: supple Cardiovascular: regular rhythm Respiratory/Chest: lungs clear Abdomen: non tender, no mass Extremities: non-tender Edema: 1+ Leg (L), 1+ Leg (R) Edema: mild edema Neurologic: no motor/sensory deficits Skin: warm/dry ALFREDO DUTTON Aug 06, 2016 10:40
--- NOTE | 2016-08-06 10:42 | Diagnostic Imaging Report ---
Indication: Right hip pain Technique: XRAY HIP 2V RIGHT Comparison: None Findings: There is no acute fracture or dislocation. There is subchondral flattening and irregularity of the femoral head. Sclerosis of the femoral head is also seen. Mild right hip joint space narrowing is present. There is prominent spurring of the femoral head and neck junction. Impression: No acute fracture or dislocation. Subchondral flattening and irregularity of the femoral head. Femoral head sclerosis also noted. Please correlate clinically for avascular necrosis. Mild degenerative right hip joint space narrowing with prominent spurring of the femoral head and neck junction.
[2016-08-06 10:56] LABS: MEAN CORPUSCULAR HEMOGLOBIN 30.7 PG (27.0-31.0); MEAN CORPUSCULAR HGB CONC 32.4 G/DL (32.0-36.0); MEAN CORPUSCULAR VOLUME 95 FL (80-99); MEAN PLATELET VOLUME 6.3 FL (6.5-10.1); PLATELET COUNT 408 K/UL (150-450); RED BLOOD COUNT 2.33 M/UL (4.70-6.10); RED CELL DISTRIBUTION WIDTH 19.1 % (11.6-14.8); WHITE BLOOD COUNT 15.2 K/UL (4.8-10.8)
--- NOTE | 2016-08-06 11:01 | Diagnostic Imaging Report ---
Indication: Left hip pain Technique: XRAY HIP 2V LEFT Comparison: None Findings: There is no acute fracture or dislocation. There is flattening and collapse of the left femoral head. Left femoral head sclerosis is also noted. There is degenerative narrowing of the left hip with spurring of the left femoral head and neck junction. Impression: No acute osseous abnormality. Flattening and collapse of the left femoral head with left femoral head sclerosis suggestive of avascular necrosis. Secondary degenerative changes of the left hip. Clinical correlation recommended.
[2016-08-06 12:01] VITALS: BP 130/94
[2016-08-06 13:15] LABS: ANISOCYTOSIS 2+; BAND NEUTROPHILS % (MANUAL) 0 % (0-8); BASOPHILS % (MANUAL) 0 % (0-2); EOSINOPHILS % (MANUAL) 6 % (0-3); HYPOCHROMASIA 1+; LYMPHOCYTES % (MANUAL) 10 % (20-45); NEUTROPHILS % (MANUAL) 72 % (45-75); PLATELET ESTIMATE ADEQUATE; PLATELET MORPHOLOGY NORMAL; POIKILOCYTOSIS 1+; STOMATOCYTES 1+; TOTAL CELLS COUNTED 100
[2016-08-06] MEDS ORDERED: Tubing IV Secondary IV ONE (15:19)
[2016-08-06 16:01] VITALS: BP 119/82
[2016-08-06 16:51] LABS: ALANINE AMINOTRANSFERASE 79 U/L (3-41); ALBUMIN/GLOBULIN RATIO 1.4 (1.0-2.7); ANION GAP 8 (5-15); ASPARTATE AMINO TRANSFERASE 61 U/L (5-40); CALCIUM 9.1 mg/dL (8.6-10.2); CARBON DIOXIDE 34 mEQ/L (20-30); CHLORIDE 100 mEQ/L (98-107); CREATININE 0.8 mg/dL (0.7-1.2); GLOMERULAR FILTRATION RATE > 60 mL/min (>60); HEMOLYSIS 10; SODIUM 142 mEQ/L (135-145); TOTAL PROTEIN 6.2 g/dL (6.6-8.7)
[2016-08-06] MEDS: Azithromycin 500 MG in D5W 275 ML IV SCH (19:03)
[2016-08-06 20:00] VITALS: BP 109/76
[2016-08-06] MEDS: cefTRIAXone 1 GM in D5W 55 ML IVPB SCH (20:33)
--- NOTE | 2016-08-06 21:12 | General Progress Note ---
Assessment/Plan Status: stable Assessment/Plan (1) Sickle cell crisis ICD Codes: D57.00 - Hb-SS disease with crisis, unspecified SNOMED: 298099302 (2) Anemia ICD Codes: D64.9 - Anemia, unspecified SNOMED: 012988100 Qualifiers: Qualified Codes: D64.89 - Other specified anemias (3) Pneumonia ICD Codes: J18.9 - Pneumonia, unspecified organism SNOMED: 035757138 Qualifiers: Qualified Codes: J18.9 - Pneumonia, unspecified organism (4) Avascular necrosis of femur head, left ICD Codes: M87.052 - Idiopathic aseptic necrosis of left femur SNOMED: 100777936 (5) Avascular necrosis of femur head, right ICD Codes: M87.051 - Idiopathic aseptic necrosis of right femur SNOMED: 933376136 Plan IV Dil prn pain, consider PO trial in am Ceftriaxone and Azithromycin c/w home dose of methadone c/s pain, Zarrini; c/w baclofen and gabapentin folate hydroxyurea ctm H and H transfuse if hg <7 O2 encourage po intake trend CHEM, mild hyperkalemia radiology reviewed, hip xr c/w AVN Head of femur c/w all other mgt. time of note may not reflect time of clinical encounter Subjective Date patient seen: Aug 06, 2016 Constitutional: Reports: malaise, weakness HEENT: Reports: no symptoms Cardiovascular: Reports: chest pain Respiratory: Reports: cough, shortness of breath Gastrointestinal/Abdominal: Reports: abdominal pain Genitourinary: Reports: no symptoms 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: Reports: no symptoms Endocrine: Reports: no symptoms Hematologic/Lymphatic: Reports: anemia Allergies: Coded Allergies: AMPICILLIN (Verified Allergy, Unknown, 08/03/16) KETOROLAC (Verified Allergy, Unknown, 08/03/16) MORPHINE (Verified Allergy, Unknown, 08/03/16) PHENYTOIN (Verified Allergy, Unknown, 08/03/16) Subjective no acute events pain controlled w/ IV opiates wants to try to transition to po pain meds tomorrow Objective Last 24 Hour Vital Signs Date Time Temp Pulse Resp B/P Pulse Ox O2 Delivery O2 Flow Rate FiO2 08/06/16 20:01 98.0 08/06/16 20:01 98.0 08/06/16 16:45 98.0 08/06/16 16:01 98.0 83 19 119/82 97 Nasal Cannula 2.0 08/06/16 12:01 97.7 80 20 130/94 97 Nasal Cannula 2.0 08/06/16 08:14 98.3 74 21 148/76 97 Nasal Cannula 2.0 08/06/16 04:00 98.8 88 18 128/86 94 Nasal Cannula 2.0 08/06/16 00:00 98.1 83 18 136/94 93 Nasal Cannula 2.0 Intake and Output 08/05/16 08/06/16 19:00 07:00 Intake Total 1145 ml 785 ml Output Total 1400 ml Balance 1145 ml -615 ml Intake Oral 660 ml 730 ml IV Total 485 ml 55 ml Output Urine Total 1400 ml # Voids 3 3 Laboratory Tests 08/06/16 06:45: White Blood Count 15.2H, Red Blood Count 2.33L, Hemoglobin 7.2L, Hematocrit 22.1L, Mean Corpuscular Volume 95, Mean Corpuscular Hemoglobin 30.7, Mean Corpuscular Hemoglobin Concent 32.4, Red Cell Distribution Width 19.1H, Platelet Count 408, Mean Platelet Volume 6.3L, Neutrophils (%) (Auto) , Lymphocytes (%) (Auto) , Monocytes (%) (Auto) , Eosinophils (%) (Auto) , Basophils (%) (Auto) , Differential Total Cells Counted 100, Neutrophils % ( Manual) 72, Lymphocytes % (Manual) 10L, Monocytes % (Manual) 12H, Eosinophils % (Manual) 6H, Basophils % (Manual) 0, Band Neutrophils 0, Platelet Estimate Adequate, Platelet Morphology Normal, Hypochromasia 1+, Poikilocytosis 1+, Anisocytosis 2+, Stomatocytes 1+, Reticulocyte Count 3.0H 08/06/16 07:30: Sodium Level 142, Potassium Level 5.0H, Chloride Level 100, Carbon Dioxide Level 34H, Anion Gap 8, Blood Urea Nitrogen 18, Creatinine 0.8, Estimat Glomerular Filtration Rate > 60, Glucose Level 74, Calcium Level 9.1, Total Bilirubin 0.8, Aspartate Amino Transf (AST/SGOT) 61H, Alanine Aminotransferase ( ALT/SGPT) 79H, Alkaline Phosphatase 214H, Total Protein 6.2L, Albumin 3.7, Globulin 2.5, Albumin/Globulin Ratio 1.4 Height (Feet): 5 Height (Inches): 11.00 Weight (Pounds): 157 General Appearance: WD/WN, no apparent distress, alert EENT: PERRL/EOMI Neck: supple Cardiovascular: regular rhythm, regularly irregular, no gallop/murmur, no JVD Respiratory/Chest: chest wall non-tender, lungs clear, normal breath sounds, no accessory muscle use Abdomen: normal bowel sounds, non tender, soft, no organomegaly Edema: no edema noted Arm (L), no edema noted Arm (R), no edema noted Leg (L), no edema noted Leg (R), no edema noted Pedal (L), no edema noted Pedal (R), no edema noted Generalized Neurologic: lpn rn 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, no motor/sensory deficits, alert, oriented x 3 Joe Dalton MD Aug 06, 2016 21:12
[2016-08-07] VITALS: BP 145/98
[2016-08-07] MEDS: DiphenhydrAMINE 50mg/ml Inj IVP PRN ×6 (00:37→20:59)
[2016-08-07 04:00] VITALS: BP 129/79
[2016-08-07 06:42] LABS: MEAN CORPUSCULAR HEMOGLOBIN 30.9 PG (27.0-31.0); MEAN CORPUSCULAR HGB CONC 31.9 G/DL (32.0-36.0); MEAN CORPUSCULAR VOLUME 97 FL (80-99); MEAN PLATELET VOLUME 6.4 FL (6.5-10.1); PLATELET COUNT 418 K/UL (150-450); RED BLOOD COUNT 2.47 M/UL (4.70-6.10); RED CELL DISTRIBUTION WIDTH 18.2 % (11.6-14.8); WHITE BLOOD COUNT 17.8 K/UL (4.8-10.8)
[2016-08-07 07:59] LABS: ANION GAP 8 (5-15); CALCIUM 9.5 mg/dL (8.6-10.2); CARBON DIOXIDE 34 mEQ/L (20-30); CHLORIDE 103 mEQ/L (98-107); CREATININE 0.8 mg/dL (0.7-1.2); GLOMERULAR FILTRATION RATE > 60 mL/min (>60); HEMOLYSIS 8; POTASSIUM 4.7 mEQ/L (3.4-4.9); SODIUM 145 mEQ/L (135-145)
[2016-08-07 08:15] VITALS: BP 143/95
[2016-08-07] MEDS: Hydroxyurea 500mg cap ORAL SCH ×2 (08:42→18:13)
--- NOTE | 2016-08-07 09:22 | General Progress Note ---
Assessment/Plan Assessment/Plan ASSEMENT: 1. Sickle cell crisis with no evidence of acute chest syndrome. Hgb >7, retic elevated 2. Thrombocytosis likely due to reactive process 3. Leukocytosis due to reactive process from anemia 4 Avascular Necrosis of the hip 5. Pain from the sickle cell crisis 6. pneumonia - on abx RECOMMENDATIONS: - Monitor cell count - Continue hydroxyurea 500mg bid - Continue Folic acid - Adequate hydration - Pain management recs - DVT Prophylaxis with SCDs - Out patient Hematology follow up - staff Sincerely, Alfredo Dutton MD Subjective Constitutional: Reports: no symptoms HEENT: Reports: no symptoms Cardiovascular: Reports: no symptoms Respiratory: Reports: no symptoms Gastrointestinal/Abdominal: Reports: poor appetite Genitourinary: Reports: no symptoms 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: Reports: no symptoms Endocrine: Reports: no symptoms Hematologic/Lymphatic: Reports: anemia Allergies: Coded Allergies: AMPICILLIN (Verified Allergy, Unknown, 08/03/16) KETOROLAC (Verified Allergy, Unknown, 08/03/16) MORPHINE (Verified Allergy, Unknown, 08/03/16) PHENYTOIN (Verified Allergy, Unknown, 08/03/16) Subjective no hematemesis, no fevers, no chills. Less anemic Objective Last 24 Hour Vital Signs Date Time Temp Pulse Resp B/P Pulse Ox O2 Delivery O2 Flow Rate FiO2 08/07/16 08:15 97.5 78 19 143/95 97 Nasal Cannula 2.0 08/07/16 04:00 97.9 83 20 129/79 100 Nasal Cannula 3.0 08/07/16 00:00 97.0 70 20 145/98 100 Nasal Cannula 3.0 08/06/16 21:04 98.0 08/06/16 20:01 98.0 08/06/16 20:01 98.0 08/06/16 20:00 99.0 94 18 109/76 98 Nasal Cannula 2.0 08/06/16 16:01 98.0 83 19 119/82 97 Nasal Cannula 2.0 08/06/16 12:01 97.7 80 20 130/94 97 Nasal Cannula 2.0 Intake and Output 08/06/16 08/07/16 19:00 07:00 Intake Total 1440 ml 810 ml Output Total 1700 ml 400 ml Balance -260 ml 410 ml Intake Oral 1440 ml 480 ml IV Total 330 ml Output Urine Total 1700 ml 400 ml # Voids 4 1 Laboratory Tests 08/07/16 04:30: White Blood Count 17.8H, Red Blood Count 2.47L, Hemoglobin 7.6L, Hematocrit 23.9L, Mean Corpuscular Volume 97, Mean Corpuscular Hemoglobin 30.9, Mean Corpuscular Hemoglobin Concent 31.9L, Red Cell Distribution Width 18.2H, Platelet Count 418, Mean Platelet Volume 6.4L, Neutrophils (%) (Auto) , Lymphocytes (%) (Auto) , Monocytes (%) (Auto) , Eosinophils (%) (Auto) , Basophils (%) (Auto) , Neutrophils % (Manual) [Pending], Lymphocytes % (Manual) [Pending], Platelet Estimate [Pending], Platelet Morphology [Pending], Sodium Level 145, Potassium Level 4.7, Chloride Level 103, Carbon Dioxide Level 34H, Anion Gap 8, Blood Urea Nitrogen 19, Creatinine 0.8, Estimat Glomerular Filtration Rate > 60, Glucose Level 116H, Calcium Level 9.5 Height (Feet): 5 Height (Inches): 11.00 Weight (Pounds): 157 General Appearance: no apparent distress EENT: TMs normal Neck: normal alignment Cardiovascular: regular rhythm Respiratory/Chest: lungs clear Abdomen: normal bowel sounds Extremities: non-tender Edema: no edema noted Leg (L), no edema noted Leg (R) Edema: mild edema Neurologic: alert Skin: warm/dry ALFREDO DUTTON Aug 07, 2016 09:22
[2016-08-07 10:47] LABS: ANISOCYTOSIS 1+; BAND NEUTROPHILS % (MANUAL) 0 % (0-8); BASOPHILS % (MANUAL) 0 % (0-2); EOSINOPHILS % (MANUAL) 16 % (0-3); HYPOCHROMASIA 1+; LYMPHOCYTES % (MANUAL) 33 % (20-45); NEUTROPHILS % (MANUAL) 42 % (45-75); NUCLEATED RED BLOOD CELLS 1 /100 WBC; PLATELET ESTIMATE ADEQUATE; PLATELET MORPHOLOGY NORMAL; TOTAL CELLS COUNTED 100
[2016-08-07 10:49] LABS: STOMATOCYTES OCCASIONAL
[2016-08-07 10:50] LABS: POLYCHROMASIA OCCASIONAL
[2016-08-07 11:52] VITALS: BP 134/83
--- NOTE | 2016-08-07 13:58 | General Progress Note ---
Assessment/Plan Problem List: (1) Intractable pain ICD Codes: R52 - Pain, unspecified SNOMED: 43632520 (2) Sickle cell crisis ICD Codes: D57.00 - Hb-SS disease with crisis, unspecified SNOMED: 588421380 (3) Avascular necrosis of femur head, right ICD Codes: M87.051 - Idiopathic aseptic necrosis of right femur SNOMED: 863612743 (4) Avascular necrosis of femur head, left ICD Codes: M87.052 - Idiopathic aseptic necrosis of left femur SNOMED: 853057211 Assessment/Plan Pain is controlled on current regimen. Subjective Constitutional: Denies: chills, diaphoresis, fever, malaise, no symptoms, other , weakness HEENT: Denies: blurred vision, double vision, ear discharge, ear pain, eye pain , mouth pain, mouth swelling, no symptoms, nose congestion, nose pain, other, tearing, throat pain, throat swelling Cardiovascular: Denies: chest pain, edema, irregular heart rate, lightheadedness, no symptoms, other, palpitations, syncope Respiratory: Denies: SOB at rest, SOB with excertion, cough, no symptoms, orthopnea, other, shortness of breath, sputum, stridor, wheezing Gastrointestinal/Abdominal: Denies: abdomen distended, abdominal pain, black stools, blood in stool, constipated, diarrhea, difficulty swallowing, nausea, no symptoms, other, poor appetite, poor fluid intake, rectal bleeding, tarry stools, vomiting 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: Denies: anxiety, depressed, emotional problems, headache, no symptoms, numbness, other, paresthesia, pre-existing deficit, seizure, tingling, tremors, weakness Allergies: Coded Allergies: AMPICILLIN (Verified Allergy, Unknown, 08/03/16) KETOROLAC (Verified Allergy, Unknown, 08/03/16) MORPHINE (Verified Allergy, Unknown, 08/03/16) PHENYTOIN (Verified Allergy, Unknown, 08/03/16) Subjective Pt continues to have severe pain. Pain is tolerable on current regimen. Objective Last 24 Hour Vital Signs Date Time Temp Pulse Resp B/P Pulse Ox O2 Delivery O2 Flow Rate FiO2 08/07/16 11:52 98.2 76 20 134/83 95 Nasal Cannula 2.0 08/07/16 08:15 97.5 78 19 143/95 97 Nasal Cannula 2.0 08/07/16 04:00 97.9 83 20 129/79 100 Nasal Cannula 3.0 08/07/16 00:00 97.0 70 20 145/98 100 Nasal Cannula 3.0 08/06/16 21:04 98.0 08/06/16 20:01 98.0 08/06/16 20:01 98.0 08/06/16 20:00 99.0 94 18 109/76 98 Nasal Cannula 2.0 08/06/16 16:01 98.0 83 19 119/82 97 Nasal Cannula 2.0 Intake and Output 08/06/16 08/07/16 18:59 06:59 Intake Total 1440 ml 810 ml Output Total 1700 ml 400 ml Balance -260 ml 410 ml Intake Oral 1440 ml 480 ml IV Total 330 ml Output Urine Total 1700 ml 400 ml # Voids 4 1 Laboratory Tests 08/07/16 04:30: White Blood Count 17.8H, Red Blood Count 2.47L, Hemoglobin 7.6L, Hematocrit 23.9L, Mean Corpuscular Volume 97, Mean Corpuscular Hemoglobin 30.9, Mean Corpuscular Hemoglobin Concent 31.9L, Red Cell Distribution Width 18.2H, Platelet Count 418, Mean Platelet Volume 6.4L, Neutrophils (%) (Auto) , Lymphocytes (%) (Auto) , Monocytes (%) (Auto) , Eosinophils (%) (Auto) , Basophils (%) (Auto) , Differential Total Cells Counted 100, Neutrophils % ( Manual) 42L, Lymphocytes % (Manual) 33, Monocytes % (Manual) 9, Eosinophils % ( Manual) 16H, Basophils % (Manual) 0, Band Neutrophils 0, Nucleated Red Blood Cells 1, Platelet Estimate Adequate, Platelet Morphology Normal, Polychromasia Occasional, Hypochromasia 1+, Anisocytosis 1+, Sickle Cells , Stomatocytes Occasional, Sodium Level 145, Potassium Level 4.7, Chloride Level 103, Carbon Dioxide Level 34H, Anion Gap 8, Blood Urea Nitrogen 19, Creatinine 0.8, Estimat Glomerular Filtration Rate > 60, Glucose Level 116H, Calcium Level 9.5 Height (Feet): 5 Height (Inches): 11.00 Weight (Pounds): 157 General Appearance: WD/WN EENT: PERRL/EOMI Neck: supple Cardiovascular: normal rate, regular rhythm Respiratory/Chest: lungs clear Abdomen: non tender Extremities: normal inspection Edema: no edema noted Arm (L), no edema noted Arm (R), no edema noted Leg (L), no edema noted Leg (R), no edema noted Pedal (L), no edema noted Pedal (R), no edema noted 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
--- NOTE | 2016-08-07 15:50 | General Progress Note ---
Assessment/Plan Status: stable Assessment/Plan (1) Sickle cell crisis ICD Codes: D57.00 - Hb-SS disease with crisis, unspecified SNOMED: 973797979 (2) Anemia ICD Codes: D64.9 - Anemia, unspecified SNOMED: 944622784 Qualifiers: Qualified Codes: D64.89 - Other specified anemias (3) Pneumonia ICD Codes: J18.9 - Pneumonia, unspecified organism SNOMED: 639099988 Qualifiers: Qualified Codes: J18.9 - Pneumonia, unspecified organism (4) Avascular necrosis of femur head, left ICD Codes: M87.052 - Idiopathic aseptic necrosis of left femur SNOMED: 816791986 (5) Avascular necrosis of femur head, right ICD Codes: M87.051 - Idiopathic aseptic necrosis of right femur SNOMED: 381151726 Plan IV Dil prn pain Ceftriaxone and Azithromycin c/w home dose of methadone c/s pain, Zarrini; c/w baclofen and gabapentin folate hydroxyurea ctm H and H transfuse if hg <7 O2 encourage po intake trend CHEM, mild hyperkalemia radiology reviewed, hip xr c/w AVN Head of femur c/w all other mgt. time of note may not reflect time of clinical encounter Subjective Date patient seen: Aug 07, 2016 Allergies: Coded Allergies: AMPICILLIN (Verified Allergy, Unknown, 08/03/16) KETOROLAC (Verified Allergy, Unknown, 08/03/16) MORPHINE (Verified Allergy, Unknown, 08/03/16) PHENYTOIN (Verified Allergy, Unknown, 08/03/16) Subjective no acute events pain controlled w/ IV opiates not yet ready to transition to oral pain meds Objective Last 24 Hour Vital Signs Date Time Temp Pulse Resp B/P Pulse Ox O2 Delivery O2 Flow Rate FiO2 08/07/16 11:52 98.2 76 20 134/83 95 Nasal Cannula 2.0 08/07/16 08:15 97.5 78 19 143/95 97 Nasal Cannula 2.0 08/07/16 04:00 97.9 83 20 129/79 100 Nasal Cannula 3.0 08/07/16 00:00 97.0 70 20 145/98 100 Nasal Cannula 3.0 08/06/16 21:04 98.0 08/06/16 20:01 98.0 08/06/16 20:01 98.0 08/06/16 20:00 99.0 94 18 109/76 98 Nasal Cannula 2.0 08/06/16 16:01 98.0 83 19 119/82 97 Nasal Cannula 2.0 Intake and Output 08/06/16 08/07/16 19:00 07:00 Intake Total 1440 ml 810 ml Output Total 1700 ml 400 ml Balance -260 ml 410 ml Intake Oral 1440 ml 480 ml IV Total 330 ml Output Urine Total 1700 ml 400 ml # Voids 4 1 Laboratory Tests 08/07/16 04:30: White Blood Count 17.8H, Red Blood Count 2.47L, Hemoglobin 7.6L, Hematocrit 23.9L, Mean Corpuscular Volume 97, Mean Corpuscular Hemoglobin 30.9, Mean Corpuscular Hemoglobin Concent 31.9L, Red Cell Distribution Width 18.2H, Platelet Count 418, Mean Platelet Volume 6.4L, Neutrophils (%) (Auto) , Lymphocytes (%) (Auto) , Monocytes (%) (Auto) , Eosinophils (%) (Auto) , Basophils (%) (Auto) , Differential Total Cells Counted 100, Neutrophils % ( Manual) 42L, Lymphocytes % (Manual) 33, Monocytes % (Manual) 9, Eosinophils % ( Manual) 16H, Basophils % (Manual) 0, Band Neutrophils 0, Nucleated Red Blood Cells 1, Platelet Estimate Adequate, Platelet Morphology Normal, Polychromasia Occasional, Hypochromasia 1+, Anisocytosis 1+, Sickle Cells , Stomatocytes Occasional, Sodium Level 145, Potassium Level 4.7, Chloride Level 103, Carbon Dioxide Level 34H, Anion Gap 8, Blood Urea Nitrogen 19, Creatinine 0.8, Estimat Glomerular Filtration Rate > 60, Glucose Level 116H, Calcium Level 9.5 Height (Feet): 5 Height (Inches): 11.00 Weight (Pounds): 157 Joe Dalton MD Aug 07, 2016 15:50
[2016-08-07 16:00] VITALS: BP 113/51
[2016-08-07] MEDS: Azithromycin 500 MG in D5W 275 ML IV SCH (18:14)
[2016-08-07] MEDS: cefTRIAXone 1 GM in D5W 55 ML IVPB SCH (19:35)
[2016-08-08] VITALS (7 sets, daily range): BP systolic 106–132; BP diastolic 74–94
[2016-08-08] MEDS: DiphenhydrAMINE 50mg/ml Inj IVP PRN ×5 (01:02→19:38)
[2016-08-08] MEDS: Hydroxyurea 500mg cap ORAL SCH ×2 (09:02→18:13)
--- NOTE | 2016-08-08 15:42 | General Progress Note ---
Assessment/Plan Assessment/Plan ASSESSMENT: 1. Sickle cell crisis with no evidence of acute chest syndrome. Hgb >7, retic elevated 2. Thrombocytosis likely due to reactive process 3. Leukocytosis due to reactive process from anemia 4 Avascular Necrosis of the hip 5. Pain from the sickle cell crisis 6. pneumonia - on abx RECOMMENDATIONS: - Monitor cell count - Continue hydroxyurea 500mg bid - Continue Folic acid - Adequate hydration - Pain management recs - DVT Prophylaxis with SCDs - Out patient Hematology follow up ( next wk) - staff Sincerely, Marco Dutton MD Subjective Constitutional: Reports: no symptoms HEENT: Reports: no symptoms Cardiovascular: Reports: no symptoms Respiratory: Reports: no symptoms Gastrointestinal/Abdominal: Reports: poor appetite Genitourinary: Reports: no symptoms 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: Reports: no symptoms Endocrine: Reports: no symptoms Hematologic/Lymphatic: Reports: anemia Allergies: Coded Allergies: AMPICILLIN (Verified Allergy, Unknown, 08/03/16) KETOROLAC (Verified Allergy, Unknown, 08/03/16) MORPHINE (Verified Allergy, Unknown, 08/03/16) PHENYTOIN (Verified Allergy, Unknown, 08/03/16) Subjective pain improved, not bleeding Objective Last 24 Hour Vital Signs Date Time Temp Pulse Resp B/P Pulse Ox O2 Delivery O2 Flow Rate FiO2 08/08/16 12:03 97.6 76 21 131/94 95 Room Air 08/08/16 12:00 98.6 74 20 106/74 97 Nasal Cannula 2.0 08/08/16 08:00 98.8 88 20 120/86 97 Nasal Cannula 2.0 08/08/16 07:38 98.1 08/08/16 04:00 98.1 74 20 130/83 98 Nasal Cannula 2.0 08/08/16 00:00 97.2 81 18 132/88 98 Room Air 08/07/16 20:00 97.7 08/07/16 19:13 98.5 08/07/16 16:00 98.5 80 18 113/51 93 Nasal Cannula 5.0 Intake and Output 08/07/16 08/08/16 19:00 07:00 Intake Total 1200 ml 800 ml Output Total 1200 ml 3150 ml Balance 0 ml -2350 ml Intake Oral 1200 ml 800 ml Output Urine Total 1200 ml 3150 ml # Voids 3 Height (Feet): 5 Height (Inches): 11.00 Weight (Pounds): 157 General Appearance: alert EENT: TMs normal Neck: supple Cardiovascular: regular rhythm Respiratory/Chest: lungs clear Abdomen: non tender Extremities: non-tender Edema: no edema noted Leg (L), no edema noted Leg (R) Edema: mild edema Neurologic: no motor/sensory deficits, responsive Skin: warm/dry Marco Dutton Aug 08, 2016 15:42
--- NOTE | 2016-08-08 17:00 | General Progress Note ---
Assessment/Plan Problem List: (1) Sickle cell crisis ICD Codes: D57.00 - Hb-SS disease with crisis, unspecified SNOMED: 393806974 (2) Anemia ICD Codes: D64.9 - Anemia, unspecified SNOMED: 295974576 Qualifiers: Qualified Codes: D64.89 - Other specified anemias (3) Pneumonia ICD Codes: J18.9 - Pneumonia, unspecified organism SNOMED: 012344001 Qualifiers: Qualified Codes: J18.9 - Pneumonia, unspecified organism (4) Avascular necrosis of femur head, left ICD Codes: M87.052 - Idiopathic aseptic necrosis of left femur SNOMED: 057048902 (5) Avascular necrosis of femur head, right ICD Codes: M87.051 - Idiopathic aseptic necrosis of right femur SNOMED: 911779907 Assessment/Plan med surg IV Dil prn pain Ceftriaxone and Azithromycin resume home dose of methadone c/s pain, Zarrini; pt started on baclofen and gabapentin folate hydroxyurea c/s heme ctm H and H transfuse if hg <7 O2 dc IVF, 150-->75 cc/h hip XR c/w avascular necrosis; o/p ortho f/u Subjective Date patient seen: Aug 08, 2016 Time patient seen: 16:59 Allergies: Coded Allergies: AMPICILLIN (Verified Allergy, Unknown, 08/03/16) KETOROLAC (Verified Allergy, Unknown, 08/03/16) MORPHINE (Verified Allergy, Unknown, 08/03/16) PHENYTOIN (Verified Allergy, Unknown, 08/03/16) Subjective pain controlled; no sob/cp; c/o hip pain L>R Objective Last 24 Hour Vital Signs Date Time Temp Pulse Resp B/P Pulse Ox O2 Delivery O2 Flow Rate FiO2 08/08/16 16:00 97.7 85 16 123/82 95 Room Air 08/08/16 12:03 97.6 76 21 131/94 95 Room Air 08/08/16 12:00 98.6 74 20 106/74 97 Nasal Cannula 2.0 08/08/16 08:00 98.8 88 20 120/86 97 Nasal Cannula 2.0 08/08/16 07:38 98.1 08/08/16 04:00 98.1 74 20 130/83 98 Nasal Cannula 2.0 08/08/16 00:00 97.2 81 18 132/88 98 Room Air 08/07/16 20:00 97.7 08/07/16 19:13 98.5 Intake and Output 08/07/16 08/08/16 19:00 07:00 Intake Total 1200 ml 800 ml Output Total 1200 ml 3150 ml Balance 0 ml -2350 ml Intake Oral 1200 ml 800 ml Output Urine Total 1200 ml 3150 ml # Voids 3 Height (Feet): 5 Height (Inches): 11.00 Weight (Pounds): 157 Objective General Appearance: alert, awake and in NAD HEENT: normocephalic, atraumatic, anicteric, mucous membranes moist, PERRL, EOMI, pharynx normal, no JVD Neck: non-tender, supple Respiratory/Chest: bibasilar crackles Cardiovascular/Chest: normal peripheral pulses, normal rate, regular rhythm Abdomen: normal bowel sounds, non tender, soft, no mass Extremities: non-tender, other - L foot toe flexion deformities and tender wound on dorsum Skin Exam: warm/dry 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 Aug 08, 2016 17:00
[2016-08-08] MEDS: Azithromycin 500 MG in D5W 275 ML IV SCH (18:13)
[2016-08-08] MEDS: cefTRIAXone 1 GM in D5W 55 ML IVPB SCH (19:37)
[2016-08-09] VITALS: BP 135/90
[2016-08-09] MEDS: DiphenhydrAMINE 50mg/ml Inj IVP PRN ×4 (00:26→12:32)
[2016-08-09 04:00] VITALS: BP 141/91
[2016-08-09 08:00] VITALS: BP 122/73
--- NOTE | 2016-08-09 10:12 | Discharge Summary ---
Discharge Summary Hospital Course Date of Admission Aug 03, 2016 at 16:15 Date of Discharge 08/09/16 Admitting Diagnosis sickle crisis HPI Yevgeniy Barrett is a 40 year old male who was admitted on Aug 03, 2016 at 16: 15 for Sickle Crisis Consultations Heme Pain Hospital Course pt was admitted to med surg IV Dil prn pain Ceftriaxone and Azithromycin resumed home dose of methadone c/s pain, Zarrini; pt started on baclofen and gabapentin folate hydroxyurea c/s heme Hg stable in 7's O2 IVF, 150-->75 cc/h hip XR c/w avascular necrosis; o/p ortho f/u Discharge Condition Upon Discharge: stable Discharge Disposition Patient was discharged to home Discharge Diagnoses: (1) Sickle cell crisis (2) Anemia (3) Pneumonia (4) Avascular necrosis of femur head, right (5) Intractable pain (6) Avascular necrosis of femur head, left Nakita Borden M.D. Aug 09, 2016 10:12
[2016-08-09 12:00] VITALS: BP 126/69
--- NOTE | 2016-08-09 14:05 | General Progress Note ---
Assessment/Plan Problem List: (1) Intractable pain ICD Codes: R52 - Pain, unspecified SNOMED: 08978769 (2) Avascular necrosis of femur head, left ICD Codes: M87.052 - Idiopathic aseptic necrosis of left femur SNOMED: 543887143 (3) Sickle cell crisis ICD Codes: D57.00 - Hb-SS disease with crisis, unspecified SNOMED: 711275281 (4) Avascular necrosis of femur head, right ICD Codes: M87.051 - Idiopathic aseptic necrosis of right femur SNOMED: 927481362 Assessment/Plan Pain is controlled on current regimen. As discussed in HPI, will give one week prescription and pt will follow up with me if she wants to slowly taper down her narcotics. Subjective Constitutional: Denies: chills, diaphoresis, fever, malaise, no symptoms, other , weakness HEENT: Denies: blurred vision, double vision, ear discharge, ear pain, eye pain , mouth pain, mouth swelling, no symptoms, nose congestion, nose pain, other, tearing, throat pain, throat swelling Cardiovascular: Denies: chest pain, edema, irregular heart rate, lightheadedness, no symptoms, other, palpitations, syncope Respiratory: Denies: SOB at rest, SOB with excertion, cough, no symptoms, orthopnea, other, shortness of breath, sputum, stridor, wheezing Gastrointestinal/Abdominal: Denies: abdomen distended, abdominal pain, black stools, blood in stool, constipated, diarrhea, difficulty swallowing, nausea, no symptoms, other, poor appetite, poor fluid intake, rectal bleeding, tarry stools, vomiting 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: Denies: anxiety, depressed, emotional problems, headache, no symptoms, numbness, other, paresthesia, pre-existing deficit, tingling, tremors, weakness Allergies: Coded Allergies: AMPICILLIN (Verified Allergy, Unknown, 08/03/16) KETOROLAC (Verified Allergy, Unknown, 08/03/16) MORPHINE (Verified Allergy, Unknown, 08/03/16) PHENYTOIN (Verified Allergy, Unknown, 08/03/16) Subjective Pt c/o severe whole body pain specially back and legs. Pt is getting discharge and needs prescription. I d/w pt in length that the amount of narcotic she takes is dangerously high and needs to taper down karlie. I explained pain induced by narcotic. She is on Methadone 40 mg 4 times a day in hospital plus Dilaudid 2 mg IV that used 5 times yesterday as breakthru. I agrred to give her Methadone 40 mg three times carolynn and Dilaudid 8 mg 4 times a day. She agreed. If she wants continue tapering, will come to my office next week and will reduce her meds and if she is not agreeable with tapering, will continue seeing previous doctor. Objective Last 24 Hour Vital Signs Date Time Temp Pulse Resp B/P Pulse Ox O2 Delivery O2 Flow Rate FiO2 08/09/16 08:00 96.8 82 20 122/73 97 Nasal Cannula 6.0 08/09/16 04:00 98.2 79 18 141/91 100 Nasal Cannula 2.0 08/09/16 00:00 97.5 66 18 135/90 100 Nasal Cannula 2.0 08/08/16 20:10 97.7 08/08/16 20:00 97.6 74 16 119/79 98 Room Air 08/08/16 16:00 97.7 85 16 123/82 95 Room Air Intake and Output 08/08/16 08/09/16 19:00 07:00 Intake Total 1420 ml 360 ml Output Total 800 ml 1200 ml Balance 620 ml -840 ml Intake Oral 1420 ml 360 ml Output Urine Total 800 ml 1200 ml # Voids 3 2 # Bowel Movements 1 Height (Feet): 5 Height (Inches): 11.00 Weight (Pounds): 157 General Appearance: WD/WN EENT: PERRL/EOMI Neck: supple Cardiovascular: normal rate, regular rhythm Respiratory/Chest: lungs clear Abdomen: soft Extremities: non-tender Edema: no edema noted Arm (L), no edema noted Arm (R), no edema noted Leg (L), no edema noted Leg (R), no edema noted Pedal (L), no edema noted Pedal (R), no edema noted 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
[2016-08-09] MEDS ORDERED: Tubing IV Secondary IV ONE (15:09)
--- NOTE | 2016-08-09 16:22 | General Progress Note ---
Assessment/Plan Assessment/Plan ASSESSMENT: 1. Sickle cell crisis with no evidence of acute chest syndrome. Hgb >7, retic elevated 2. Thrombocytosis - due to reactive process 3. Leukocytosis due to reactive process from anemia 4 Avascular Necrosis of the hip 5. Pain from the sickle cell crisis 6. Pneumonia - being treated on abx RECOMMENDATIONS: - Monitor cell count - Continue hydroxyurea 500mg bid - Continue Folic acid - Adequate hydration - Pain management recs - DVT Prophylaxis with SCDs - Out patient Hematology follow up ( next wk) - staff Sincerely, Marco Dutton MD Subjective Constitutional: Reports: no symptoms HEENT: Reports: no symptoms Cardiovascular: Reports: no symptoms Respiratory: Reports: no symptoms Gastrointestinal/Abdominal: Reports: poor appetite Genitourinary: Reports: no symptoms 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: Reports: no symptoms Endocrine: Reports: no symptoms Hematologic/Lymphatic: Reports: anemia Allergies: Coded Allergies: AMPICILLIN (Verified Allergy, Unknown, 08/03/16) KETOROLAC (Verified Allergy, Unknown, 08/03/16) MORPHINE (Verified Allergy, Unknown, 08/03/16) PHENYTOIN (Verified Allergy, Unknown, 08/03/16) Subjective pain improved, is not bleeding,h/h stable Objective Last 24 Hour Vital Signs Date Time Temp Pulse Resp B/P Pulse Ox O2 Delivery O2 Flow Rate FiO2 08/09/16 12:00 97.5 81 20 126/69 98 Nasal Cannula 6.0 08/09/16 08:00 96.8 82 20 122/73 97 Nasal Cannula 6.0 08/09/16 04:00 98.2 79 18 141/91 100 Nasal Cannula 2.0 08/09/16 00:00 97.5 66 18 135/90 100 Nasal Cannula 2.0 08/08/16 20:10 97.7 08/08/16 20:00 97.6 74 16 119/79 98 Room Air Intake and Output 08/08/16 08/09/16 19:00 07:00 Intake Total 1420 ml 360 ml Output Total 800 ml 1200 ml Balance 620 ml -840 ml Intake Oral 1420 ml 360 ml Output Urine Total 800 ml 1200 ml # Voids 3 2 # Bowel Movements 1 Height (Feet): 5 Height (Inches): 11.00 Weight (Pounds): 157 General Appearance: no apparent distress EENT: PERRL/EOMI Neck: non-tender Cardiovascular: normal rate Respiratory/Chest: chest wall non-tender Abdomen: non tender Extremities: non-tender Edema: 1+ Leg (L), 1+ Leg (R) Edema: mild edema Neurologic: abnormal gait Skin: warm/dry Marco Dutton Aug 09, 2016 16:22
[2016-08-10 09:16] LABS: HEMOGLOBIN A 57.8 % (94.0-98.0); HEMOGLOBIN A2 3.4 % (0.7-3.1); HGB S 38.8 % (0.0)
--- NOTE | 2016-08-10 17:17 | Consultation ---
DATE OF CONSULTATION: 08/05/2016 PAIN MANAGEMENT CONSULTATION CONSULTING PHYSICIAN: Oleg Perera M.D. PHYSICIAN RN ADVANCED: KATHLEEN Zambrano. REFERRING PHYSICIAN: Darcy Rollins M.D. CHIEF COMPLAINT: Generalized body pain. History Of Present Illness: This is a 40-year-old male who [place] [facility] [place]. The patient has a known history of sickle cell disease. At this time, he is having a sickle cell crisis with generalized body pain and reporting that he has been having avascular necrosis in bilateral hips causing severe pain and more so with movement and walking, awaiting to be seen by orthopedic surgeon as an outpatient for possible total hip replacement. As an outpatient, the patient had been on high doses of narcotics, last being on methadone 10 mg tablet, receiving 140 tablets a month with Dilaudid 4 mg tablets 168 tablets a month was given last on 07/19/[address] Lucia, however about two months ago on 05/17/2016 the patient had been seen Dr. Walker, napper runner/oncologist where he was receiving methadone 10 mg tablet 600 tablets with Dilaudid 4 mg tablets, 1090 tablets a month. The patient has high narcotic tolerance. The patient was admitted to the hospital due to sickle cell crisis, and now is on methadone 40 mg tablet every six hours around the clock with Dilaudid 1 to 2 mg intravenous as needed for moderate to severe pain. The patient now is comfortable and reporting that his pain has been tolerated well on the current medication regimen and he has no other complaints at this time. PAST MEDICAL HISTORY: Sickle cell disease, sickle cell anemia, hip avascular necrosis, chronic pain. PAST SURGICAL HISTORY: Left leg open reduction and internal fixation and tonsillectomy. SOCIAL HISTORY: Denies smoking tobacco, drinking alcohol, or drug abuse. Allergies: Ampicillin, morphine, and phenytoin. REVIEW OF SYSTEMS: Denies rash, fever, chills, sweating, dizziness, drowsiness, blurred vision, sore throat, or change in hearing or weight. No shortness of breath, chest pain, palpitations. No nausea, vomiting, diarrhea, or blood in the stool, or urine. No bowel or bladder incontinence. No dysuria. He is complaining of generalized body pain. PHYSICAL EXAMINATION: GENERAL: Alert, awake, and oriented x3. VITAL SIGNS: Blood pressure 106/72, heart rate 75, oxygen saturation 96%, respirations 17, and temperature 96.9 degrees Fahrenheit. Height is 5 feet 11 inches. Weight is 155 pounds. HEENT: PERRLA. NECK: Range of motion is full in all directions. No tenderness. No adenopathy. LUNGS: Decreased breath sounds bilaterally. HEART: S1 and S2 regular. ABDOMEN: Benign. BACK: Range of motion is decreased in flexion and extension with tenderness to paraspinous muscles. No tenderness to trapezius or rhomboid muscles. EXTREMITIES: Upper extremities, range of motion is full in all directions. Motor is intact. No cyanosis. No clubbing. No edema. Sensory is intact. Reflexes are normal. No adenopathy. Lower extremities, range of motion is decreased due to the patient's clinical condition. Motor is reduced. No cyanosis. No clubbing. Sensory is reduced. Reflexes are unobtainable. No adenopathy. ASSESSMENT AND PLAN: This is a 40-year-old male with sickle cell disease, sickle cell crisis, and intractable pain. The patient will be continued on methadone 40 mg one tablet every six hours around the clock hold for sedation and Dilaudid 1 to 2 mg IV every four hours as needed for moderate to severe pain. The patient was discussed with Dr. Perera and Dr. Perera concurred. We will follow the patient. Oleg Perera M.D. KATHLEEN Zambrano DR: Vitaly JOB#: [id number] CC: LELAND
--- NOTE | 2016-09-10 03:17 | Cardiology Report ---
APPROVED REPORT EKG Measurement Heart [id number] MD 174P49 [id number] Normal sinus rhythm Possible Left atrial enlargement T wave abnormality, consider anterior ischemia Abnormal ECG
== END 2016-08-09 15:10 | disposition home or self-care (01) | DRG 811 ==
LOC: EMR 15:40 → 4E 16:15 → EDBEDREQ 16:36
DX: D57.00 Hb-SS disease with crisis, unspecified (principal); J18.9 Pneumonia, unspecified organism; M87.851 Other osteonecrosis, right femur; M87.852 Other osteonecrosis, left femur; D47.3 Essential (hemorrhagic) thrombocythemia; Z88.6 Allergy status to analgesic agent; Z88.1 Allergy status to other antibiotic agents; Z88.8 Allergy status to other drugs, medicaments and biological substances; Z86.73 Personal history of transient ischemic attack (TIA), and cerebral infarction without residual deficits; R07.89 Other chest pain; S91.302D Unspecified open wound, left foot, subsequent encounter
CPT/HCPCS: 36415; 71010; 73502; 80048; 80053; 80300; 82550; 82728; 83020; 83605; 83615; 83880; 84484; 85007; 85025; 85044; 85060; 85610; 85730; 86710; 86900; 86901; 87040; 93005; J2405

== ENCOUNTER 2016-08-17 01:21 | Emergency (ER) | payer MEDICARE, MEDICAID ==
[~2016-08-17] VITALS: Ht 180.3 cm; Wt 69.4 kg
[~2016-08-17 01:21] MED LIST: BENADRYL25 M3 PO; DILAUDID8 MG PO; FOLIC ACID0.4 MG ORAL; FOLIC ACID1 MG ORAL; HYDREA500 MG PO; HYDROMORPHONE HC2 M1 PO; METHADONE HCL40 M1 PO
[2016-08-17] MEDS ORDERED: HYDROmorphone 1mg/ml Carpuject IVP ONE (01:45)
--- NOTE | 2016-08-17 01:51 | Emergency Room Report ---
History of Present Illness General Chief Complaint: Chest Pain Source: Patient Present Illness HPI This is a 40-year-old male with history of sickle cell. He said heavy dose of pain medication. At one point, he was on hydromorphone 4 mg. He was getting over 2000 tablets a month. Top of that he was getting methadone 10 mg, 1200 tablets a month. He is being weaned down. He also history of asthma and seizure. He said that he had a tonic clonic seizure activity today. Also has shortness of breath and wheezing. His inhaler is not helping. He has severe pain 10 out of 10. Diffuse in nature. No nausea no vomiting. Denies any fever or chills. he is currently on 4 L of nasal cannula oxygen at home. No other complaint Allergies: Coded Allergies: AMPICILLIN (Verified Allergy, Unknown, 08/03/16) KETOROLAC (Verified Allergy, Unknown, 08/03/16) MORPHINE (Verified Allergy, Unknown, 08/03/16) PHENYTOIN (Verified Allergy, Unknown, 08/03/16) Patient History Past Medical History: see triage record, old chart reviewed Past Surgical History: other Pertinent Family History: none Social History: Denies: drug use Immunizations: other Reviewed Nursing Documentation: PMH: Agreed, PSxH: Agreed Nursing Documentation-PMH Hx Asthma: Yes Hx COPD: Yes Hx Cancer: No Hx Gastrointestinal Problems: No Hx Seizures: Yes Review of Systems Eye: Denies: blurred vision, eye pain ENT: Denies: ear pain, nose congestion, throat swelling Respiratory: Reports: cough, shortness of breath, wheezing Cardiovascular: Reports: chest pain, Denies: palpitations Gastrointestinal: Denies: abdominal pain, diarrhea, nausea, vomiting Musculoskeletal: Denies: back pain, joint pain Skin: Denies: rash Neurological: Denies: headache, numbness Endocrine: Denies: increased thirst, increased urine Hematologic/Lymphatic: Denies: easy bruising All Other Systems: negative except mentioned in HPI Physical Exam Vital Signs Date Time Temp Pulse Resp B/P Pulse Ox O2 Delivery O2 Flow Rate FiO2 08/17/16 01:37 100.2 108 28 139/87 95 Nasal Cannula 2.0 vitals with low-grade fever and tachycardia. Sp02 EP Interpretation: abnormal General Appearance: thin, Chronically Ill Head: normocephalic, atraumatic Eyes: bilateral eye EOMI, bilateral eye PERRL ENT: hearing grossly normal, normal pharynx Neck: full range of motion, supple, no meningismus Respiratory: chest non-tender, lungs clear, normal breath sounds Cardiovascular #1: regular rate, rhythm, no murmur Gastrointestinal: normal bowel sounds, non tender, no mass, no organomegaly, no bruit, non-distended Musculoskeletal: back normal, gait/station normal, normal range of motion Psychiatric: mood/affect normal Skin: warm/dry Medical Decision Making Diagnostic Impression: Primary Impression: Sickle cell anemia with crisis Additional Impressions: Leukocytosis Qualified Codes: D72.829 - Elevated white blood cell count, unspecified Seizure disorder Intractable pain Chest pain Qualified Codes: R07.89 - Other chest pain Opiate dependence, continuous Drug-seeking behavior ER Course Patient presents with reported seizure, not witnessed. He also has sickle cell pain, chest pain and cough. He was dropped off. He was admitted here recently. He said that he never been to any other hospital since. There was a armband on him from [facility] on 08/16/2016. I confirm this when I called them. He was also there on July 19, , , . On the [facility] system, patient was over 2000 tablets of hydromorphone and 1200 tablets of methadone. This has been aggressively weaned down. I suspect that he goes to a different hospital for pain medication because of his addiction. He does have an elevated WBC. Chest x-ray findings appear to be chronic. He does have a leukocytosis. I put him on antibiotics. patient was constantly asking me for Dilaudid. He also asked for Ativan. I am uncomfortable giving him multiple doses of narcotics since he is very sedated already. I was waiting for labs to make the final decision of admitting versus discharge.patient wanted to leave. He is competent to make a decision. I will go ahead and place him on antibiotics. He does not drive. He does have a persistent elevated WBC. I suspect this is chronic for him. Lab Results Impression labs with leukocytosis EKG Diagnostic Results Rate: normal Rhythm: NSR ST Segments: no acute changes Rhythm Strip Diag. Results EP Interpretation: yes Rhythm: NSR, no PVC's, no ectopy Chest X-Ray Diagnostic Results EP Interpretation: Yes Findings: no effusion, no pneumothorax, no acute cardiopulmonary disease, other - Chronic right lower infiltrate. No change from prior Number of Views: 1 Last Vital Signs Date Time Temp Pulse Resp B/P Pulse Ox O2 Delivery O2 Flow Rate FiO2 08/17/16 01:43 108 28 Nasal Cannula 2.0 08/17/16 01:37 100.2 139/87 95 Status: improved Disposition: AGAINST MEDICAL ADVICE Condition: Stable Scripts Levofloxacin* (LEVAQUIN*) 500 Mg Tablet 500 MG ORAL DAILY, #30 TAB Prov: JOSÉ MIGUEL MELENDEZ M.D. 08/17/16 Additional Instructions: Followup with your Dr. in 2-3 days. Take your medication. Return if symptom worsen. JOSÉ MIGUEL MELENDEZ M.D. Aug 17, 2016 01:51
[2016-08-17] MEDS ORDERED: Albuterol ud Inhalation HHN ONE (02:00)
[2016-08-17 02:44] LABS: APPEARANCE,URINE CLEAR; KETONES,URINE NEGATIVE (NEGATIVE); LEUKOCYTE ESTERASE ,URINE 1+ (NEGATIVE); MEAN CORPUSCULAR HEMOGLOBIN 32.2 PG (27.0-31.0); MEAN CORPUSCULAR VOLUME 92 FL (80-99); MEAN PLATELET VOLUME 6.5 FL (6.5-10.1); NITRITE,URINE NEGATIVE (NEGATIVE); PH,URINE 6.5 (4.5-8.0); PLATELET COUNT 390 K/UL (150-450); PROTEIN,URINE 3+ (NEGATIVE); RED BLOOD COUNT 3.13 M/UL (4.70-6.10); UROBILINOGEN,URINE NORMAL MG/DL (0.0-1.0); WHITE BLOOD COUNT 19.4 K/UL (4.8-10.8)
[2016-08-17 02:51] LABS: SQUAMOUS EPITHELIAL CELL,UR FEW /LPF (NONE/OCC); WBC,URINE 0 /HPF (0 - 0)
[2016-08-17 02:53] VITALS: BP 135/92
[2016-08-17 02:55] LABS: ALANINE AMINOTRANSFERASE 45 U/L (3-41); ALBUMIN/GLOBULIN RATIO 1.6 (1.0-2.7); ASPARTATE AMINO TRANSFERASE 52 U/L (5-40); CALCIUM 10.6 mg/dL (8.6-10.2); CARBON DIOXIDE 26 mEQ/L (20-30); CREATININE 0.9 mg/dL (0.7-1.2); GLOMERULAR FILTRATION RATE > 60 mL/min (>60); HEMOLYSIS 15; TOTAL PROTEIN 7.5 g/dL (6.6-8.7)
[2016-08-17 02:56] LABS: CHLORIDE 100 mEQ/L (98-107); POTASSIUM 3.9 mEQ/L (3.4-4.9); SODIUM 140 mEQ/L (135-145)
[2016-08-17 03:07] LABS: TROPONIN I < 0.30 ng/mL (<=0.30)
[2016-08-17 03:16] LABS: INR 1.2 (0.9-1.1); PROTHROMBIN TIME 12.6 SEC (9.30-11.50)
[2016-08-17 04:05] VITALS: BP 130/88
[2016-08-17] MEDS ORDERED: LEVAQUIN500 MG ORAL (04:28)
[2016-08-17 04:33] VITALS: BP 128/88
[2016-08-17 04:34] VITALS: BP 130/88
[2016-08-17 04:35] LABS: RETICULOCYTE COUNT 1.8 % (0.0-2.0)
[2016-08-17 12:58] LABS: BILIRUBIN,DIRECT 0.4 mg/dL (0.1-0.3)
--- NOTE | 2016-08-17 14:15 | Cardiology Report ---
APPROVED REPORT EKG Measurement Heart [id number] IA [id number] Sinus tachycardia Incomplete right bundle branch block Abnormal ECG
--- NOTE | 2016-08-18 08:17 | Diagnostic Imaging Report ---
Indication: SOB Technique: One view of the chest Comparison: 08/03/2016 Findings: Bilateral interstitial and alveolar parenchymal disease appears slightly improved, but considerable disease persists. The pleural spaces remain clear. Right chest catheter is again demonstrated. Heart size is upper limit of normal Impression: Somewhat improved but persistent bilateral infiltrates versus edema, since 08/03/2016 Other findings as noted
== END 2016-08-17 04:35 | disposition home or self-care (01) ==
LOC: EMR 01:40
DX: D57.00 Hb-SS disease with crisis, unspecified (principal); D72.829 Elevated white blood cell count, unspecified; J44.9 Chronic obstructive pulmonary disease, unspecified; J45.909 Unspecified asthma, uncomplicated
CPT/HCPCS: 36415; 71010; 80053; 80184; 81003; 82248; 82550; 83605; 84484; 85025; 85044; 85610; 85730; 86710; 87040; 93005; 94640; 94664; 96374; 96375; 99284; J1170; J1956

== ENCOUNTER 2016-09-09 15:21 | Inpatient (IN) | payer MEDICARE, MEDICAID ==
[~2016-09-09] VITALS: Ht 170.2 cm; Wt 68.0 kg
[~2016-09-09 15:21] MED LIST changes: +LEVAQUIN500 MG ORAL
[2016-09-09] MEDS ORDERED: HYDROmorphone 1mg/ml Carpuject IVP ONE ×2 (15:45→17:30)
[2016-09-09] MEDS ORDERED: DiphenhydrAMINE 50mg/ml Inj IVP ONE (15:45)
[2016-09-09 15:57] VITALS: BP 135/86
[2016-09-09 16:09] LABS: MEAN CORPUSCULAR HEMOGLOBIN 29.7 PG (27.0-31.0); MEAN CORPUSCULAR HGB CONC 31.6 G/DL (32.0-36.0); MEAN CORPUSCULAR VOLUME 94 FL (80-99); MEAN PLATELET VOLUME 6.4 FL (6.5-10.1); PLATELET COUNT 397 K/UL (150-450); RED BLOOD COUNT 2.45 M/UL (4.70-6.10); RED CELL DISTRIBUTION WIDTH 18.2 % (11.6-14.8); WHITE BLOOD COUNT 15.1 K/UL (4.8-10.8)
[2016-09-09] MEDS ORDERED: GABAPENTIN400 MG ORAL (16:29)
[2016-09-09 16:40] LABS: ALANINE AMINOTRANSFERASE 73 U/L (3-41); ALBUMIN/GLOBULIN RATIO 1.9 (1.0-2.7); ANION GAP 8 (5-15); ASPARTATE AMINO TRANSFERASE 59 U/L (5-40); CALCIUM 9.5 mg/dL (8.6-10.2); CARBON DIOXIDE 36 mEQ/L (20-30); CHLORIDE 99 mEQ/L (98-107); CREATININE 0.8 mg/dL (0.7-1.2); GLOMERULAR FILTRATION RATE > 60 mL/min (>60); HEMOLYSIS 6; SODIUM 143 mEQ/L (135-145); TOTAL PROTEIN 6.2 g/dL (6.6-8.7)
--- NOTE | 2016-09-09 16:41 | Diagnostic Imaging Report ---
Indication: Chest pain Technique: One view of the chest Comparison: 08/17/2016 Findings: Right chest port catheter is again demonstrated. Again demonstrated is extensive bilateral parenchymal disease, appearing similar to the prior study although may be minimally worse. The heart remains enlarged. The pleural spaces are clear. Impression: Diffuse bilateral parenchymal disease. Similarity to multiple prior studies suggests that there may be a significant chronic fibrotic component, but superimposed acute interstitial edema is not excludable. Physical findings Mild cardiomegaly
[2016-09-09 16:42] LABS: TROPONIN I < 0.30 ng/mL (<=0.30)
--- NOTE | 2016-09-09 16:44 | Emergency Room Report ---
History of Present Illness General Chief Complaint: General Complaint Source: Patient, Medical Record Present Illness HPI 40-year-old male presents ED complaining of chest pain or shortness of breath, leg pain x4 days. Patient has history of sickle cell disease. States he is "having a crisis". Pain is sharp. 10 out of 10. Nonradiating. No other aggravating or leading factors. Denies improved with Dilaudid and methadone at home. Patient states he was recently admitted to the hospital for sickle crisis. Denies fevers or chills. Denies cough. Patient is on home oxygen. Patient states he has had pain and swelling to both legs. Has history of DVT in the past. Currently not on anticoagulation. Denies any other associated symptoms Allergies: Coded Allergies: AMPICILLIN (Verified Allergy, Unknown, 08/03/16) KETOROLAC (Verified Allergy, Unknown, 08/03/16) MORPHINE (Verified Allergy, Unknown, 08/03/16) PHENYTOIN (Verified Allergy, Unknown, 08/03/16) Patient History Past Medical History: asthma, COPD, seizures, other - sickle cell Past Surgical History: none Pertinent Family History: none Social History: Denies: alcohol use, drug use, smoking Immunizations: UTD Reviewed Nursing Documentation: PMH: Agreed, PSxH: Agreed Nursing Documentation-PMH Past Medical History: No History, Except For Hx Asthma: Yes Hx COPD: Yes Hx Cancer: No Hx Gastrointestinal Problems: No Hx Seizures: Yes Review of Systems All Other Systems: negative except mentioned in HPI Physical Exam Vital Signs Date Time Temp Pulse Resp B/P Pulse Ox O2 Delivery O2 Flow Rate FiO2 09/09/16 15:25 98.4 98 18 135/86 94 Nasal Cannula 6.0 Sp02 EP Interpretation: reviewed, normal General Appearance: alert, GCS 15, non-toxic, mild distress Head: normocephalic, atraumatic Eyes: bilateral eye PERRL, bilateral eye normal inspection ENT: hearing grossly normal, normal pharynx, no angioedema, normal voice Neck: full range of motion, supple/symm/no masses Respiratory: chest non-tender, lungs clear, normal breath sounds, speaking full sentences Cardiovascular #1: regular rate, rhythm, no edema Cardiovascular #2: 2+ carotid (R), 2+ carotid (L), 2+ radial (R), 2+ radial (L) , 2+ dorsalis pedis (R), 2+ dorsalis pedis (L) Gastrointestinal: normal bowel sounds, non tender, soft, non-distended, no guarding, no rebound Rectal: deferred Genitourinary: normal inspection, no CVA tenderness Musculoskeletal: back normal, gait/station normal, normal range of motion, non- tender, calf tenderness, swelling Neurologic: alert, oriented x3, responsive, motor strength/tone normal, sensory intact, speech normal Psychiatric: judgement/insight normal, memory normal, mood/affect normal, no suicidal/homicidal ideation Reflexes: 3+ bicep (R), 3+ bicep (L), 3+ tricep (R), 3+ tricep (L), 3+ knee (R) , 3+ knee (L) Skin: normal color, no rash, warm/dry, well hydrated Lymphatic: no adenopathy Medical Decision Making Diagnostic Impression: Primary Impression: Sickle cell pain crisis Additional Impressions: Sickle cell anemia with pain Pneumonia Qualified Codes: J18.9 - Pneumonia, unspecified organism Intractable pain ER Course Hospital Course 40-year-old M presents ED complaining of chest pain and leg pain. sob. h/o sickle cell Differential diagnoses include: HI/unstable angina, sickle cell crisis, sepsis, UTI, pneumonia, PE Clinical course Patient placed on stretcher. on clinical pharmacy coordinator. After initial history and physical I ordered labs, EKG, chest x-ray, pain medications, bilateral DVT studies, CTA chest labs reviewed- WBC 15, Hb/Hct 7/23, electrolyes ok, LDH elevated, retic elevated Chest x-ray- portacath in place. B/l effusion/infiltrates bilateral DVT studies negative CTA chest - no PE, infiltrates noted Abx given. IV fluids given. Given Dilaudid x2 with pain control Case discussed with Dr. Rollins/Sha and he agreed to accept the patient to his service for further care and support I. I feel this is a highly complex case requiring extensive working including EKG/Rhythm strip, Xray/CT/US, Blood/urine lab work, repeat exams while in ED, and administration of strong opiates/narcotics for pain control, admission to hospital or close patient follow up. Diagnosis - sickle cell crisis, anemia, pneumonia, intractable pain admitted to telemetry in serious condition Labs Test 09/09/16 15:55 White Blood Count 15.1 K/UL (4.8-10.8) Red Blood Count 2.45 M/UL (4.70-6.10) Hemoglobin 7.3 G/DL (14.2-18.0) Hematocrit 23.0 % (42.0-52.0) Mean Corpuscular Volume 94 FL (80-99) Mean Corpuscular Hemoglobin 29.7 PG (27.0-31.0) Mean Corpuscular Hemoglobin Concent 31.6 G/DL (32.0-36.0) Red Cell Distribution Width 18.2 % (11.6-14.8) Platelet Count 397 K/UL (150-450) Mean Platelet Volume 6.4 FL (6.5-10.1) Neutrophils (%) (Auto) % (45.0-75.0) Lymphocytes (%) (Auto) % (20.0-45.0) Monocytes (%) (Auto) % (1.0-10.0) Eosinophils (%) (Auto) % (0.0-3.0) Basophils (%) (Auto) % (0.0-2.0) Differential Total Cells Counted 100 Neutrophils % (Manual) 47 % (45-75) Lymphocytes % (Manual) 36 % (20-45) Monocytes % (Manual) 7 % (1-10) Eosinophils % (Manual) 9 % (0-3) Basophils % (Manual) 0 % (0-2) Band Neutrophils 1 % (0-8) Nucleated Red Blood Cells 9 /100 WBC Platelet Estimate Adequate Platelet Morphology Normal Polychromasia 1+ Hypochromasia 1+ Anisocytosis 2+ Macrocytosis 1+ Target Cells Rare Reticulocyte Count 3.6 % (0.0-2.0) Sodium Level 143 mEQ/L (135-145) Potassium Level 5.0 mEQ/L (3.4-4.9) Chloride Level 99 mEQ/L (98-107) Carbon Dioxide Level 36 mEQ/L (20-30) Anion Gap 8 (5-15) Blood Urea Nitrogen 17 mg/dL (7-23) Creatinine 0.8 mg/dL (0.7-1.2) Estimat Glomerular Filtration Rate > 60 mL/min (>60) Glucose Level 89 mg/dL (74-106) Calcium Level 9.5 mg/dL (8.6-10.2) Total Bilirubin 1.0 mg/dL (0.0-1.2) Aspartate Amino Transf (AST/SGOT) 59 U/L (5-40) Alanine Aminotransferase (ALT/SGPT) 73 U/L (3-41) Alkaline Phosphatase 150 U/L (40-129) Lactate Dehydrogenase 456 U/L (135-225) Total Creatine Kinase 28 U/L (38-174) Creatine Kinase MB 1.7 ng/mL (< 6.7) Creatine Kinase MB Relative Index 6.0 Troponin I < 0.30 ng/mL (<=0.30) Pro-B-Type Natriuretic Peptide 632 pg/mL (0-125) Total Protein 6.2 g/dL (6.6-8.7) Albumin 4.1 g/dL (3.5-5.2) Globulin 2.1 g/dL Albumin/Globulin Ratio 1.9 (1.0-2.7) EKG Diagnostic Results Rate: normal Rhythm: NSR ST Segments: no acute changes ASA given to the pt in ED: No Rhythm Strip Diag. Results EP Interpretation: yes Rhythm: NSR, no PVC's, no ectopy Chest X-Ray Diagnostic Results EP Interpretation: No Findings: no pneumothorax, no acute cardiopulmonary disease, other - bilateral parenchymal disease. cardiomegaly. port catheter in right chest Number of Views: 1 CT/MRI/US Diagnostic Results CT/MRI/US Diagnostic Results : Imaging Test Ordered: CTA chest Impression CTA chest - no PE, b/l effusion vs infiltrate Last Vital Signs Date Time Temp Pulse Resp B/P Pulse Ox O2 Delivery O2 Flow Rate FiO2 09/09/16 15:57 98.4 18 135/86 94 Nasal Cannula 6.0 09/09/16 15:25 98 Status: improved Disposition: ADMITTED INPATIENT Condition: Serious Referrals: NOT CHOSEN EITAN/,REFERRING (PCP) CLARE ROYAL M.D. Sep 09, 2016 16:44
[2016-09-09 16:50] LABS: CKMB 1.7 ng/mL (< 6.7)
[2016-09-09 17:00] VITALS: BP 138/96
[2016-09-09 17:51] LABS: BAND NEUTROPHILS % (MANUAL) 1 % (0-8); EOSINOPHILS % (MANUAL) 9 % (0-3); LYMPHOCYTES % (MANUAL) 36 % (20-45); NEUTROPHILS % (MANUAL) 47 % (45-75); NUCLEATED RED BLOOD CELLS 9 /100 WBC; TOTAL CELLS COUNTED 100
[2016-09-09 17:53] LABS: ANISOCYTOSIS 2+; BASOPHILS % (MANUAL) 0 % (0-2); HYPOCHROMASIA 1+; MACROCYTES 1+; PLATELET ESTIMATE ADEQUATE; PLATELET MORPHOLOGY NORMAL; POLYCHROMASIA 1+; TARGET CELLS RARE
[2016-09-09] MEDS ORDERED: Azithromycin 500 MG in NS 275 ML IV ONE (18:30)
[2016-09-09] MEDS ORDERED: Cefepime HCl 1 GM in NS 55 ML IV ONE (18:30)
[2016-09-09 18:39] LABS: RETICULOCYTE COUNT 3.6 % (0.0-2.0)
[2016-09-09] MEDS ORDERED: Cefepime 1gm vial ONE (18:41)
[2016-09-09] MEDS ORDERED: Azithromycin Inj IV ONE (18:41)
[2016-09-09 18:51] VITALS: BP 109/75
[2016-09-09] MEDS ORDERED: HYDROmorphone 1mg/ml Carpuject IVP PRN (21:30)
[2016-09-09] MEDS ORDERED: Zolpidem 5mg tab ORAL PRN (21:30)
[2016-09-09] MEDS: DiphenhydrAMINE 50mg/ml Inj IVP PRN (22:43)
[2016-09-10] VITALS (7 sets, daily range): BP systolic 121–150; BP diastolic 73–100
[2016-09-10] MEDS: DiphenhydrAMINE 50mg/ml Inj IVP PRN ×4 (03:20→19:32)
[2016-09-10] MEDS: Cefepime HCl 1 GM in D5W 55 ML IVPB SCH ×3 (05:37→22:24)
[2016-09-10] MEDS: Hydroxyurea 500mg cap ORAL SCH ×2 (08:14→18:36)
--- NOTE | 2016-09-10 12:50 | History and Physical ---
History of Present Illness General Date patient seen: Sep 10, 2016 Time patient seen: 12:50 Reason for Hospitalization: increased pain, chest pain, SOB Present Illness HPI 40 y/o male with pmh of sickle cell anemia, b/l hip avascular necrosis, chronic pain, opioid dependence who presents with increased pain including chest pain and SOB. Pt c/o chest pain or shortness of breath, leg pain x4 days. Pt states he is "having a crisis". Pain is sharp. 10 out of 10. Nonradiating. No other aggravating or leading factors. Not improved with Dilaudid and methadone at home. Denies fevers or chills. Notes cough productive of yellowish sputum. Patient is on home oxygen. Patient states he has had pain and swelling to both legs. Has history of DVT in the past. Currently not on anticoagulation. Denies any other associated symptoms In ED, pt had CTA chest which was negative PE. There was concern for PNA, and pt was started on cefepime and azithromycin. Allergies: Coded Allergies: AMPICILLIN (Verified Allergy, Unknown, 08/03/16) KETOROLAC (Verified Allergy, Unknown, 08/03/16) MORPHINE (Verified Allergy, Unknown, 08/03/16) PHENYTOIN (Verified Allergy, Unknown, 08/03/16) Medication History Scheduled Folic Acid* (Folic Acid*), 1 MG ORAL DAILY, (Reported) Gabapentin* (Gabapentin*), 500 MG ORAL THREE TIMES A DAY, (Reported) Hydroxyurea* (Hydrea*), 500 MG PO BID, (Reported) Levofloxacin* (Levaquin*), 500 MG ORAL DAILY Methadone Hcl (Methadone Hcl), 60 MG PO EVERY 6 HOURS, (Reported) Scheduled PRN Diphenhydramine HCl (Benadryl), 50 MG PO Q4HR PRN for Itching, (Reported) Hydromorphone Hcl (Hydromorphone Hcl), 14 MG PO Q4HR PRN for For Pain, (Reported ) Patient History History Provided By: Patient Healthcare decision maker Resuscitation status Full Code Advanced Directive on File No Family History Family History: Patient reports no known family medical history. Social History Social History: (1) No significant social history Review of Systems All Other Systems: negative except mentioned in HPI ROS Narrative CONSTITUTIONAL: No weight loss, fever, chills, weakness or fatigue. HEENT: Eyes: No visual loss, blurred vision, double vision or yellow sclerae. Ears, Nose, Throat: No hearing loss, sneezing, congestion, runny nose or sore throat. SKIN: No rash or itching. CARDIOVASCULAR: +chest pain, chest pressure or chest discomfort. No palpitations or edema. RESPIRATORY: +shortness of breath, cough or sputum. GASTROINTESTINAL: No anorexia, nausea, vomiting or diarrhea. No abdominal pain or blood. NEUROLOGICAL: No headache, dizziness, syncope, paralysis, ataxia, numbness or tingling in the extremities. No change in bowel or bladder control. MUSCULOSKELETAL: No muscle, back pain, joint pain or stiffness. HEMATOLOGIC: No anemia, bleeding or bruising. LYMPHATICS: No enlarged nodes. No history of splenectomy. PSYCHIATRIC: No history of depression or anxiety. ENDOCRINOLOGIC: No reports of sweating, cold or heat intolerance. No polyuria or polydipsia. ALLERGIES: No history of asthma, hives, eczema or rhinitis. Physical Exam Physical Exam Narrative General: alert, cooperative, no distress, appears stated age Head: normocephalic, without obvious abnormality, atraumatic Eyes: conjunctivae/corneas clear. PERRL, EOM's intact Throat: lips, mucosa, and tongue normal. MMM Neck: supple, symmetrical, trachea midline, and no JVD Lungs: +rhonchi b/l Heart: regular rate and rhythm, S1, S2 normal, no murmur, click, rub or gallop Abdomen: soft, non-tender, non-distended, bowel sounds normal; no masses or organomegaly Extremities: extremities normal, atraumatic, no cyanosis or edema Pulses: 2+ and symmetric Skin: skin color, texture, turgor normal; no rashes or lesions Neurologic: grossly normal, no focal deficits Last 24 Hour Vital Signs Date Time Temp Pulse Resp B/P Pulse Ox O2 Delivery O2 Flow Rate FiO2 09/10/16 11:37 97.0 78 20 126/85 94 Nasal Cannula 6.0 09/10/16 08:50 98.8 09/10/16 08:50 98.8 09/10/16 08:21 97.3 73 20 150/79 95 Nasal Cannula 6.0 09/10/16 08:00 79 09/10/16 07:10 Room Air 09/10/16 07:10 99 Room Air 09/10/16 04:20 145/95 09/10/16 04:15 98.8 90 19 146/100 95 09/10/16 04:00 84 09/10/16 00:25 98.8 95 20 124/90 99 Room Air 09/10/16 00:00 96 09/09/16 19:00 98.4 95 18 109/75 95 Nasal Cannula 6.0 09/09/16 18:51 95 18 109/75 95 Nasal Cannula 6.0 09/09/16 17:45 98.4 09/09/16 17:29 98.4 09/09/16 17:00 79 18 138/96 100 Nasal Cannula 6.0 09/09/16 15:57 98.4 18 135/86 94 Nasal Cannula 6.0 09/09/16 15:25 98.4 98 18 135/86 94 Nasal Cannula 6.0 Intake and Output 09/09/16 09/10/16 19:00 07:00 Intake Total 0 ml 1255 ml Output Total 1400 ml Balance 0 ml -145 ml Intake Oral 0 ml IV Total 1255 ml Output Urine Total 1400 ml Laboratory Tests Test 09/09/16 15:55 White Blood Count 15.1 K/UL (4.8-10.8) H Red Blood Count 2.45 M/UL (4.70-6.10) L Hemoglobin 7.3 G/DL (14.2-18.0) L Hematocrit 23.0 % (42.0-52.0) L Mean Corpuscular Volume 94 FL (80-99) Mean Corpuscular Hemoglobin 29.7 PG (27.0-31.0) Mean Corpuscular Hemoglobin Concent 31.6 G/DL (32.0-36.0) L Red Cell Distribution Width 18.2 % (11.6-14.8) H Platelet Count 397 K/UL (150-450) Mean Platelet Volume 6.4 FL (6.5-10.1) L Neutrophils (%) (Auto) % (45.0-75.0) Lymphocytes (%) (Auto) % (20.0-45.0) Monocytes (%) (Auto) % (1.0-10.0) Eosinophils (%) (Auto) % (0.0-3.0) Basophils (%) (Auto) % (0.0-2.0) Differential Total Cells Counted 100 Neutrophils % (Manual) 47 % (45-75) Lymphocytes % (Manual) 36 % (20-45) Monocytes % (Manual) 7 % (1-10) Eosinophils % (Manual) 9 % (0-3) H Basophils % (Manual) 0 % (0-2) Band Neutrophils 1 % (0-8) Nucleated Red Blood Cells 9 /100 WBC Platelet Estimate Adequate Platelet Morphology Normal Polychromasia 1+ Hypochromasia 1+ Anisocytosis 2+ Macrocytosis 1+ Target Cells Rare Reticulocyte Count 3.6 % (0.0-2.0) H Sodium Level 143 mEQ/L (135-145) Potassium Level 5.0 mEQ/L (3.4-4.9) H Chloride Level 99 mEQ/L (98-107) Carbon Dioxide Level 36 mEQ/L (20-30) H Anion Gap 8 (5-15) Blood Urea Nitrogen 17 mg/dL (7-23) Creatinine 0.8 mg/dL (0.7-1.2) Estimat Glomerular Filtration Rate > 60 mL/min (>60) Glucose Level 89 mg/dL (74-106) Calcium Level 9.5 mg/dL (8.6-10.2) Total Bilirubin 1.0 mg/dL (0.0-1.2) Aspartate Amino Transf (AST/SGOT) 59 U/L (5-40) H Alanine Aminotransferase (ALT/SGPT) 73 U/L (3-41) H Alkaline Phosphatase 150 U/L (40-129) H Lactate Dehydrogenase 456 U/L (135-225) H Total Creatine Kinase 28 U/L (38-174) L Creatine Kinase MB 1.7 ng/mL (< 6.7) Creatine Kinase MB Relative Index 6.0 Troponin I < 0.30 ng/mL (<=0.30) Pro-B-Type Natriuretic Peptide 632 pg/mL (0-125) H Total Protein 6.2 g/dL (6.6-8.7) L Albumin 4.1 g/dL (3.5-5.2) Globulin 2.1 g/dL Albumin/Globulin Ratio 1.9 (1.0-2.7) Height (Feet): 5 Height (Inches): 7.00 Weight (Pounds): 150 Medications Current Medications Medications (Trade) Dose Ordered Sig/Anthony Route PRN Reason Start Time Stop Time Status Last Admin Dose Admin Azithromycin/ Dextrose (Zithromax/D5W) 275 ml @ 275 mls/hr Q24HRS IV 09/10/16 16:00 09/15/16 16:59 Cefepime HCl 1 gm/ Dextrose 55 ml @ 110 mls/hr EVERY 8 HOURS IVPB 09/10/16 06:00 09/17/16 05:59 09/10/16 05:37 Dextrose STAT PRN IV Hypoglycemia 09/09/16 21:30 10/09/16 21:29 Diphenhydramine HCl (Benadryl) 50 mg Q4H PRN IVP Itching 09/09/16 22:15 10/09/16 22:14 09/10/16 08:15 Folic Acid (Folate) 1 mg DAILY ORAL 09/10/16 09:00 10/10/16 08:59 09/10/16 08:23 Gabapentin (Neurontin) 600 mg THREE TIMES A DAY ORAL 09/10/16 09:00 10/10/16 08:59 09/10/16 08:14 Hydromorphone HCl (Dilaudid) 1 mg Q4HR PRN IVP Moderate Pain (Pain Scale 4-6) 09/09/16 21:30 09/16/16 21:29 Hydromorphone HCl (Dilaudid) 2 mg Q4HR PRN IVP Severe Pain (Pain Scale 7-10) 09/09/16 21:30 09/16/16 21:29 09/10/16 08:23 Hydroxyurea (Hydrea) 500 mg TWICE A DAY ORAL 09/10/16 09:00 09/15/16 08:59 09/10/16 08:14 Methadone HCl (Methadone HCl) 60 mg EVERY 6 HOURS ORAL 09/10/16 00:00 09/17/16 00:00 09/10/16 12:46 Ondansetron HCl (Zofran) 4 mg EVERY 4 HOURS PRN IVP Nausea & Vomiting 09/09/16 21:30 10/09/16 21:29 Sodium Chloride (Sodium Chloride 1000ml bag) 1,000 ml @ 150 mls/hr Q6H40M IVLG 09/09/16 22:30 10/09/16 22:29 09/10/16 12:46 Zolpidem Tartrate (Ambien) 5 mg DAILYPRN PRN ORAL Insomnia 09/09/16 21:30 10/09/16 21:29 Assessment/Plan Problem List: (1) Sickle cell pain crisis ICD Codes: D57.00 - Hb-SS disease with crisis, unspecified SNOMED: 173800396 (2) Interstitial lung disease ICD Codes: J84.9 - Interstitial pulmonary disease, unspecified SNOMED: 15037546, 622714083 (3) Pneumonia ICD Codes: J18.9 - Pneumonia, unspecified organism SNOMED: 363684918 Qualifiers: Qualified Codes: J18.9 - Pneumonia, unspecified organism (4) Intractable pain ICD Codes: R52 - Pain, unspecified SNOMED: 64717539 Status: stable Assessment/Plan - Admit to inpt - Hematology consulted - Pulmonology consulted - Cont abx for possible pneumonia: cefepime and azithro (09/10-) - Check resp culture - Check TTE - Monitor cell counts - Continue hydroxyurea 500mg bid - Continue Folic acid - IVFs - Pain mgmt consulted DVT Prophylaxis: SCD Code Status: Full Hospital Classification Declaration: Based on this initial evaluation, and depending on the patient's clinical course, I anticipate that this patient will require hospitalization for 2-3 days for sickle cell crisis, and close respiratory/hemodynamic monitoring. Disposition: Once the patient is stable to leave the hospital, I anticipate the patient will likely be discharged to the following environment: home vs home w/ hh I spent 72 minutes on this patient's case, and 38 minutes were dedicated to counseling and/or care coordination. Discussed with patient/family, nursing staff, SW/DAGOBERTO, pulm, heme regarding clinical status, treatment course, and disposition planning. Time of note may not reflect time of encounter. Jerri Samaniego M.D. Sep 10, 2016 12:50
[2016-09-10 14:32] LABS: MEAN CORPUSCULAR HEMOGLOBIN 30.9 PG (27.0-31.0); MEAN CORPUSCULAR VOLUME 94 FL (80-99); MEAN PLATELET VOLUME 6.6 FL (6.5-10.1); PLATELET COUNT 405 K/UL (150-450); RED BLOOD COUNT 2.54 M/UL (4.70-6.10); RED CELL DISTRIBUTION WIDTH 19.7 % (11.6-14.8); WHITE BLOOD COUNT 13.4 K/UL (4.8-10.8)
[2016-09-10 14:56] LABS: ANION GAP 10 (5-15); CALCIUM 8.7 mg/dL (8.6-10.2); CARBON DIOXIDE 33 mEQ/L (20-30); CHLORIDE 100 mEQ/L (98-107); CREATININE 0.7 mg/dL (0.7-1.2); GLOMERULAR FILTRATION RATE > 60 mL/min (>60); HEMOLYSIS 11; POTASSIUM 4.8 mEQ/L (3.4-4.9); SODIUM 143 mEQ/L (135-145)
[2016-09-10 15:58] LABS: BASOPHILS % (MANUAL) 1 % (0-2); EOSINOPHILS % (MANUAL) 11 % (0-3); LYMPHOCYTES % (MANUAL) 38 % (20-45); NEUTROPHILS % (MANUAL) 42 % (45-75); TOTAL CELLS COUNTED 100
[2016-09-10] MEDS ORDERED: Azithromycin 500 MG in D5W 275 ML IV SCH (16:00)
[2016-09-10 16:01] LABS: ANISOCYTOSIS 3+; HYPOCHROMASIA 3+; POLYCHROMASIA 1+
[2016-09-10 16:02] LABS: BAND NEUTROPHILS % (MANUAL) 0 % (0-8); PLATELET ESTIMATE ADEQUATE; PLATELET MORPHOLOGY NORMAL; TARGET CELLS 1+
[2016-09-10] MEDS ORDERED: Tubing IV Secondary IV ONE (17:00)
[2016-09-11] VITALS: BP 141/92
[2016-09-11] MEDS: DiphenhydrAMINE 50mg/ml Inj IVP PRN ×5 (00:04→19:04)
[2016-09-11 04:00] VITALS: BP 127/56
[2016-09-11] MEDS: Cefepime HCl 1 GM in D5W 55 ML IVPB SCH ×3 (05:24→22:31)
[2016-09-11 07:38] LABS: ANION GAP 8 (5-15); CALCIUM 8.6 mg/dL (8.6-10.2); CARBON DIOXIDE 34 mEQ/L (20-30); CHLORIDE 101 mEQ/L (98-107); CREATININE 0.7 mg/dL (0.7-1.2); GLOMERULAR FILTRATION RATE > 60 mL/min (>60); HEMOLYSIS 5; POTASSIUM 4.8 mEQ/L (3.4-4.9); SODIUM 143 mEQ/L (135-145)
[2016-09-11 07:43] LABS: MEAN CORPUSCULAR HEMOGLOBIN 31.7 PG (27.0-31.0); MEAN CORPUSCULAR HGB CONC 33.2 G/DL (32.0-36.0); MEAN CORPUSCULAR VOLUME 95 FL (80-99); MEAN PLATELET VOLUME 7.5 FL (6.5-10.1); PLATELET COUNT 387 K/UL (150-450); RED BLOOD COUNT 2.44 M/UL (4.70-6.10); RED CELL DISTRIBUTION WIDTH 20.8 % (11.6-14.8); WHITE BLOOD COUNT 14.7 K/UL (4.8-10.8)
[2016-09-11 07:54] VITALS: BP 145/75
[2016-09-11] MEDS: Hydroxyurea 500mg cap ORAL SCH ×2 (09:19→19:04)
--- NOTE | 2016-09-11 09:22 | General Progress Note ---
Assessment/Plan Assessment/Plan (1) Intractable pain ICD Codes: R52 - Pain, unspecified SNOMED: 28134715 (2) Avascular necrosis of femur head, left ICD Codes: M87.052 - Idiopathic aseptic necrosis of left femur SNOMED: 402178452 (3) Sickle cell crisis ICD Codes: D57.00 - Hb-SS disease with crisis, unspecified SNOMED: 388684727 (4) Avascular necrosis of femur head, right ICD Codes: M87.051 - Idiopathic aseptic necrosis of right femur SNOMED: 476647818 Assessment/Plan Patient will be continued on methadone 60mg PO Q6H around the clock hold for oversedation and he will be changed to Dilaudid 1mg Q3H PRN mod pain and the Dilaudid 2mg will continue Q4H PRN severe pain Pt was d/w Dr. Perera and he concurred. Thank you for courtesy of this consultation. Subjective Date patient seen: Sep 11, 2016 Time patient seen: 08:45 - am Constitutional: Reports: chills HEENT: Denies: blurred vision, double vision, ear discharge, ear pain, eye pain , mouth pain, mouth swelling, nose congestion, nose pain, tearing, throat pain, throat swelling Cardiovascular: Denies: chest pain, edema, irregular heart rate, lightheadedness, palpitations, syncope Respiratory: Denies: SOB at rest, SOB with excertion, cough, orthopnea, shortness of breath, sputum, stridor, wheezing Gastrointestinal/Abdominal: Denies: abdomen distended, abdominal pain, black stools, blood in stool, constipated, diarrhea, difficulty swallowing, nausea, poor appetite, poor fluid intake, rectal bleeding, tarry stools, vomiting Genitourinary: Reports: other, Denies: burning, discharge, flank pain, frequency, hematuria, incontinence, pain, urgency 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: Reports: other, Denies: anxiety, depressed, emotional problems, headache, numbness, paresthesia, pre-existing deficit, seizure, tingling, tremors, weakness Endocrine: Reports: other, Denies: excessive sweating, flushing, increased hunger, increased thirst, increased urine, intolerance to cold, intolerance to heat, unexplained weight gain, unexplained weight loss Hematologic/Lymphatic: Denies: anemia, easy bleeding, easy bruising Allergies: Coded Allergies: AMPICILLIN (Verified Allergy, Unknown, 08/03/16) KETOROLAC (Verified Allergy, Unknown, 08/03/16) MORPHINE (Verified Allergy, Unknown, 08/03/16) PHENYTOIN (Verified Allergy, Unknown, 08/03/16) Subjective Patient was seen by us on prior admission and has been admitted due to sickle cell crisis. At this time pt is on methadone 60mg PO Q6H ATC hold for oversedation and Dilaudid 1-2mg IV PRN Mod to severe pain and says that the Dilaudid 2mg last 3 hrs. I d/w pt about reducing to Q3H however pt refuses. Objective Last 24 Hour Vital Signs Date Time Temp Pulse Resp B/P Pulse Ox O2 Delivery O2 Flow Rate FiO2 09/11/16 07:54 97.0 90 20 145/75 95 Nasal Cannula 6.0 09/11/16 04:00 97.3 88 20 127/56 95 Nasal Cannula 5.0 09/11/16 03:50 92 09/11/16 00:00 97.3 84 20 141/92 96 Nasal Cannula 5.0 09/10/16 23:42 81 09/10/16 20:00 97.7 87 18 121/83 95 Nasal Cannula 6.0 09/10/16 19:29 Nasal Cannula 6.0 09/10/16 19:29 97 Nasal Cannula 6.0 09/10/16 19:01 81 09/10/16 16:00 97.0 87 18 129/73 95 Nasal Cannula 6.0 09/10/16 16:00 85 09/10/16 14:48 97.0 09/10/16 14:48 97.0 09/10/16 12:00 78 09/10/16 11:37 97.0 78 20 126/85 94 Nasal Cannula 6.0 Intake and Output 09/10/16 09/11/16 19:00 07:00 Intake Total 270 ml 2150 ml Output Total 950 ml 1350 ml Balance -680 ml 800 ml Intake Oral 120 ml 240 ml IV Total 150 ml 1910 ml Output Urine Total 950 ml 1350 ml # Voids 4 Laboratory Tests 09/10/16 14:12: White Blood Count 13.4H, Red Blood Count 2.54L, Hemoglobin 7.9L, Hematocrit 23.8L, Mean Corpuscular Volume 94, Mean Corpuscular Hemoglobin 30.9, Mean Corpuscular Hemoglobin Concent 33.0, Red Cell Distribution Width 19.7H, Platelet Count 405, Mean Platelet Volume 6.6, Neutrophils (%) (Auto) , Lymphocytes (%) (Auto) , Monocytes (%) (Auto) , Eosinophils (%) (Auto) , Basophils (%) (Auto) , Differential Total Cells Counted 100, Neutrophils % ( Manual) 42L, Lymphocytes % (Manual) 38, Monocytes % (Manual) 8, Eosinophils % ( Manual) 11H, Basophils % (Manual) 1, Band Neutrophils 0, Platelet Estimate Adequate, Platelet Morphology Normal, Polychromasia 1+, Hypochromasia 3+, Anisocytosis 3+, Target Cells 1+, Sodium Level 143, Potassium Level 4.8, Chloride Level 100, Carbon Dioxide Level 33H, Anion Gap 10, Blood Urea Nitrogen 14, Creatinine 0.7, Estimat Glomerular Filtration Rate > 60, Glucose Level 112H , Calcium Level 8.7 09/11/16 06:40: White Blood Count 14.7H, Red Blood Count 2.44L, Hemoglobin 7.7L, Hematocrit 23.3L, Mean Corpuscular Volume 95, Mean Corpuscular Hemoglobin 31.7H, Mean Corpuscular Hemoglobin Concent 33.2, Red Cell Distribution Width 20.8H, Platelet Count 387, Mean Platelet Volume 7.5, Neutrophils (%) (Auto) , Lymphocytes (%) (Auto) , Monocytes (%) (Auto) , Eosinophils (%) (Auto) , Basophils (%) (Auto) , Neutrophils % (Manual) [Pending], Lymphocytes % (Manual) [Pending], Platelet Estimate [Pending], Platelet Morphology [Pending], Sodium Level 143, Potassium Level 4.8, Chloride Level 101, Carbon Dioxide Level 34H, Anion Gap 8, Blood Urea Nitrogen 14, Creatinine 0.7, Estimat Glomerular Filtration Rate > 60, Glucose Level 96, Calcium Level 8.6 Height (Feet): 5 Height (Inches): 7.00 Weight (Pounds): 150 General Appearance: no apparent distress, alert EENT: PERRL/EOMI, normal ENT inspection Neck: non-tender, normal alignment Cardiovascular: normal rate, regular rhythm Respiratory/Chest: lungs clear, normal breath sounds Abdomen: non tender, soft Edema: no edema noted Arm (L), no edema noted Arm (R), no edema noted Leg (L), no edema noted Leg (R), no edema noted Pedal (L), no edema noted Pedal (R), no edema noted Generalized Neurologic: alert, oriented x 3 Skin: warm/dry ANTIONE PHILLIPS Sep 11, 2016 09:22
[2016-09-11 11:37] VITALS: BP 119/82
[2016-09-11] MEDS ORDERED: HYDROmorphone 1mg/ml Carpuject IVP PRN ×2 (12:00→18:00)
[2016-09-11 12:04] LABS: EOSINOPHILS % (MANUAL) 14 % (0-3); LYMPHOCYTES % (MANUAL) 27 % (20-45); NEUTROPHILS % (MANUAL) 51 % (45-75); NUCLEATED RED BLOOD CELLS 2 /100 WBC; TOTAL CELLS COUNTED 100
[2016-09-11 12:05] LABS: BAND NEUTROPHILS % (MANUAL) 0 % (0-8); BASOPHILS % (MANUAL) 0 % (0-2); PLATELET ESTIMATE ADEQUATE; PLATELET MORPHOLOGY NORMAL
[2016-09-11 12:07] LABS: HYPOCHROMASIA 1+
[2016-09-11 12:09] LABS: ANISOCYTOSIS 3+
[2016-09-11 12:14] LABS: MACROCYTES 1+
[2016-09-11 12:15] LABS: SICKLE CELLS OCCASIONAL
--- NOTE | 2016-09-11 12:52 | General Progress Note ---
Assessment/Plan Problem List: (1) Sickle cell pain crisis ICD Codes: D57.00 - Hb-SS disease with crisis, unspecified SNOMED: 600574876 (2) Interstitial lung disease ICD Codes: J84.9 - Interstitial pulmonary disease, unspecified SNOMED: 66247999, 623876249 (3) Pneumonia ICD Codes: J18.9 - Pneumonia, unspecified organism SNOMED: 765814686 Qualifiers: Qualified Codes: J18.9 - Pneumonia, unspecified organism (4) Intractable pain ICD Codes: R52 - Pain, unspecified SNOMED: 16287986 Status: stable Assessment/Plan - Appreciate hematology, pulmonology, and pain mgmt rec's - Cont abx for possible pneumonia: cefepime and azithro (09/10-) - Check resp culture - Check TTE - Monitor cell counts - Continue hydroxyurea 500mg bid - Continue Folic acid - IVFs - Pain control, bowel regimen, supportive care DVT Prophylaxis: SCD Code Status: Full Hospital Classification Declaration: Based on this initial evaluation, and depending on the patient's clinical course, I anticipate that this patient will require hospitalization for 2-3 days for sickle cell crisis, and close respiratory/hemodynamic monitoring. Disposition: Once the patient is stable to leave the hospital, I anticipate the patient will likely be discharged to the following environment: home vs home w/ hh I spent 45 minutes on this patient's case, and 24 minutes were dedicated to counseling and/or care coordination. Discussed with patient/family, nursing staff, SW/CM, pulm, heme regarding clinical status, treatment course, and disposition planning. Time of note may not reflect time of encounter. Subjective Date patient seen: Sep 11, 2016 Time patient seen: 12:52 ROS Limited/Unobtainable: No Constitutional: Reports: no symptoms HEENT: Reports: no symptoms Cardiovascular: Reports: chest pain Respiratory: Reports: shortness of breath Gastrointestinal/Abdominal: Reports: no symptoms Genitourinary: Reports: no symptoms 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: Reports: no symptoms Endocrine: Reports: no symptoms Hematologic/Lymphatic: Reports: no symptoms Allergies: Coded Allergies: AMPICILLIN (Verified Allergy, Unknown, 08/03/16) KETOROLAC (Verified Allergy, Unknown, 08/03/16) MORPHINE (Verified Allergy, Unknown, 08/03/16) PHENYTOIN (Verified Allergy, Unknown, 08/03/16) All Systems: reviewed and negative except above Subjective Continues to c/o increased pain in chest, back, legs Cough improving SOB improving Objective Last 24 Hour Vital Signs Date Time Temp Pulse Resp B/P Pulse Ox O2 Delivery O2 Flow Rate FiO2 09/11/16 11:37 97.0 85 20 119/82 99 Nasal Cannula 6.0 09/11/16 10:10 97.0 09/11/16 10:10 97.0 09/11/16 08:00 93 09/11/16 07:54 97.0 90 20 145/75 95 Nasal Cannula 6.0 09/11/16 04:00 97.3 88 20 127/56 95 Nasal Cannula 5.0 09/11/16 03:50 92 09/11/16 00:00 97.3 84 20 141/92 96 Nasal Cannula 5.0 09/10/16 23:42 81 09/10/16 20:00 97.7 87 18 121/83 95 Nasal Cannula 6.0 09/10/16 19:29 Nasal Cannula 6.0 09/10/16 19:29 97 Nasal Cannula 6.0 09/10/16 19:01 81 09/10/16 16:00 97.0 87 18 129/73 95 Nasal Cannula 6.0 09/10/16 16:00 85 Intake and Output 09/10/16 09/11/16 19:00 07:00 Intake Total 270 ml 2300 ml Output Total 950 ml 1350 ml Balance -680 ml 950 ml Intake Oral 120 ml 240 ml IV Total 150 ml 2060 ml Output Urine Total 950 ml 1350 ml # Voids 4 Laboratory Tests 09/10/16 14:12: White Blood Count 13.4H, Red Blood Count 2.54L, Hemoglobin 7.9L, Hematocrit 23.8L, Mean Corpuscular Volume 94, Mean Corpuscular Hemoglobin 30.9, Mean Corpuscular Hemoglobin Concent 33.0, Red Cell Distribution Width 19.7H, Platelet Count 405, Mean Platelet Volume 6.6, Neutrophils (%) (Auto) , Lymphocytes (%) (Auto) , Monocytes (%) (Auto) , Eosinophils (%) (Auto) , Basophils (%) (Auto) , Differential Total Cells Counted 100, Neutrophils % ( Manual) 42L, Lymphocytes % (Manual) 38, Monocytes % (Manual) 8, Eosinophils % ( Manual) 11H, Basophils % (Manual) 1, Band Neutrophils 0, Platelet Estimate Adequate, Platelet Morphology Normal, Polychromasia 1+, Hypochromasia 3+, Anisocytosis 3+, Target Cells 1+, Sodium Level 143, Potassium Level 4.8, Chloride Level 100, Carbon Dioxide Level 33H, Anion Gap 10, Blood Urea Nitrogen 14, Creatinine 0.7, Estimat Glomerular Filtration Rate > 60, Glucose Level 112H , Calcium Level 8.7 09/11/16 06:40: White Blood Count 14.7H, Red Blood Count 2.44L, Hemoglobin 7.7L, Hematocrit 23.3L, Mean Corpuscular Volume 95, Mean Corpuscular Hemoglobin 31.7H, Mean Corpuscular Hemoglobin Concent 33.2, Red Cell Distribution Width 20.8H, Platelet Count 387, Mean Platelet Volume 7.5, Neutrophils (%) (Auto) , Lymphocytes (%) (Auto) , Monocytes (%) (Auto) , Eosinophils (%) (Auto) , Basophils (%) (Auto) , Differential Total Cells Counted 100, Neutrophils % ( Manual) 51, Lymphocytes % (Manual) 27, Monocytes % (Manual) 8, Eosinophils % ( Manual) 14H, Basophils % (Manual) 0, Band Neutrophils 0, Platelet Estimate Adequate, Platelet Morphology Normal, Hypochromasia 1+, Anisocytosis 3+, Sodium Level 143, Potassium Level 4.8, Chloride Level 101, Carbon Dioxide Level 34H, Anion Gap 8, Blood Urea Nitrogen 14, Creatinine 0.7, Estimat Glomerular Filtration Rate > 60, Glucose Level 96, Calcium Level 8.6, Nucleated Red Blood Cells 2, Macrocytosis 1+, Sickle Cells OccasionalH Height (Feet): 5 Height (Inches): 7.00 Weight (Pounds): 150 Objective General: alert, cooperative, no distress, appears stated age Head: normocephalic, without obvious abnormality, atraumatic Eyes: conjunctivae/corneas clear. PERRL, EOM's intact Throat: lips, mucosa, and tongue normal. MMM Neck: supple, symmetrical, trachea midline, and no JVD Lungs: +rhonchi b/l Heart: regular rate and rhythm, S1, S2 normal, no murmur, click, rub or gallop Abdomen: soft, non-tender, non-distended, bowel sounds normal; no masses or organomegaly Extremities: extremities normal, atraumatic, no cyanosis or edema Pulses: 2+ and symmetric Skin: skin color, texture, turgor normal; no rashes or lesions Neurologic: grossly normal, no focal deficits Jerri Samaniego M.D. Sep 11, 2016 12:52
--- NOTE | 2016-09-11 13:11 | Consultation ---
History of Present Illness General Date patient seen: Sep 11, 2016 Chief Complaint: General Complaint Referring physician: Dr. Rollins Reason for Consultation: dysnea Present Illness HPI 40-year-old male with hx of sickle cell disease presented to [facility] [place] complaining of chest pain or shortness of breath, leg pain x4 days. Patient stated he is "having a crisis". Pain is sharp. 10 out of 10. Nonradiating. C /O of cough and yellowish sputum. He had a CTA in ER ruling out PE. His CXR showed interstitial infiltrate. ? pulmonary edema vs interstitial infiltrate. Allergies: Coded Allergies: AMPICILLIN (Verified Allergy, Unknown, 08/03/16) KETOROLAC (Verified Allergy, Unknown, 08/03/16) MORPHINE (Verified Allergy, Unknown, 08/03/16) PHENYTOIN (Verified Allergy, Unknown, 08/03/16) Medication History Scheduled Folic Acid* (Folic Acid*), 1 MG ORAL DAILY, (Reported) Gabapentin* (Gabapentin*), 500 MG ORAL THREE TIMES A DAY, (Reported) Hydroxyurea* (Hydrea*), 500 MG PO BID, (Reported) Levofloxacin* (Levaquin*), 500 MG ORAL DAILY Methadone Hcl (Methadone Hcl), 60 MG PO EVERY 6 HOURS, (Reported) Scheduled PRN Diphenhydramine HCl (Benadryl), 50 MG PO Q4HR PRN for Itching, (Reported) Hydromorphone Hcl (Hydromorphone Hcl), 14 MG PO Q4HR PRN for For Pain, (Reported ) Patient History Healthcare decision maker Resuscitation status Full Code Advanced Directive on File No Past Medical/Surgical History Past Medical/Surgical History: (1) Sickle cell pain crisis Review of Systems Constitutional: Reports: malaise, weakness Respiratory: Reports: cough, shortness of breath All Other Systems: negative except mentioned in HPI Physical Exam General Appearance: WD/WN Lines, tubes and drains: peripheral HEENT: normocephalic, atraumatic Neck: non-tender, normal alignment Respiratory/Chest: chest wall non-tender, rhonchi - left, rhonchi - right Breasts: no masses Cardiovascular/Chest: normal peripheral pulses, regular rhythm Abdomen: normal bowel sounds, non tender Last 24 Hour Vital Signs Date Time Temp Pulse Resp B/P Pulse Ox O2 Delivery O2 Flow Rate FiO2 09/11/16 11:37 97.0 85 20 119/82 99 Nasal Cannula 6.0 09/11/16 10:10 97.0 09/11/16 10:10 97.0 09/11/16 08:00 93 09/11/16 07:54 97.0 90 20 145/75 95 Nasal Cannula 6.0 09/11/16 04:00 97.3 88 20 127/56 95 Nasal Cannula 5.0 09/11/16 03:50 92 09/11/16 00:00 97.3 84 20 141/92 96 Nasal Cannula 5.0 09/10/16 23:42 81 09/10/16 20:00 97.7 87 18 121/83 95 Nasal Cannula 6.0 09/10/16 19:29 Nasal Cannula 6.0 09/10/16 19:29 97 Nasal Cannula 6.0 09/10/16 19:01 81 09/10/16 16:00 97.0 87 18 129/73 95 Nasal Cannula 6.0 09/10/16 16:00 85 Intake and Output 09/10/16 09/11/16 19:00 07:00 Intake Total 270 ml 2300 ml Output Total 950 ml 1350 ml Balance -680 ml 950 ml Intake Oral 120 ml 240 ml IV Total 150 ml 2060 ml Output Urine Total 950 ml 1350 ml # Voids 4 Laboratory Tests Test 09/10/16 14:12 09/11/16 06:40 White Blood Count 13.4 K/UL (4.8-10.8) H 14.7 K/UL (4.8-10.8) H Red Blood Count 2.54 M/UL (4.70-6.10) L 2.44 M/UL (4.70-6.10) L Hemoglobin 7.9 G/DL (14.2-18.0) L 7.7 G/DL (14.2-18.0) L Hematocrit 23.8 % (42.0-52.0) L 23.3 % (42.0-52.0) L Mean Corpuscular Volume 94 FL (80-99) 95 FL (80-99) Mean Corpuscular Hemoglobin 30.9 PG (27.0-31.0) 31.7 PG (27.0-31.0) H Mean Corpuscular Hemoglobin Concent 33.0 G/DL (32.0-36.0) 33.2 G/DL (32.0-36.0) Red Cell Distribution Width 19.7 % (11.6-14.8) H 20.8 % (11.6-14.8) H Platelet Count 405 K/UL (150-450) 387 K/UL (150-450) Mean Platelet Volume 6.6 FL (6.5-10.1) 7.5 FL (6.5-10.1) Neutrophils (%) (Auto) % (45.0-75.0) % (45.0-75.0) Lymphocytes (%) (Auto) % (20.0-45.0) % (20.0-45.0) Monocytes (%) (Auto) % (1.0-10.0) % (1.0-10.0) Eosinophils (%) (Auto) % (0.0-3.0) % (0.0-3.0) Basophils (%) (Auto) % (0.0-2.0) % (0.0-2.0) Differential Total Cells Counted 100 100 Neutrophils % (Manual) 42 % (45-75) L 51 % (45-75) Lymphocytes % (Manual) 38 % (20-45) 27 % (20-45) Monocytes % (Manual) 8 % (1-10) 8 % (1-10) Eosinophils % (Manual) 11 % (0-3) H 14 % (0-3) H Basophils % (Manual) 1 % (0-2) 0 % (0-2) Band Neutrophils 0 % (0-8) 0 % (0-8) Platelet Estimate Adequate Adequate Platelet Morphology Normal Normal Polychromasia 1+ Hypochromasia 3+ 1+ Anisocytosis 3+ 3+ Target Cells 1+ Sodium Level 143 mEQ/L (135-145) 143 mEQ/L (135-145) Potassium Level 4.8 mEQ/L (3.4-4.9) 4.8 mEQ/L (3.4-4.9) Chloride Level 100 mEQ/L (98-107) 101 mEQ/L (98-107) Carbon Dioxide Level 33 mEQ/L (20-30) H 34 mEQ/L (20-30) H Anion Gap 10 (5-15) 8 (5-15) Blood Urea Nitrogen 14 mg/dL (7-23) 14 mg/dL (7-23) Creatinine 0.7 mg/dL (0.7-1.2) 0.7 mg/dL (0.7-1.2) Estimat Glomerular Filtration Rate > 60 mL/min (>60) > 60 mL/min (>60) Glucose Level 112 mg/dL (74-106) H 96 mg/dL (74-106) Calcium Level 8.7 mg/dL (8.6-10.2) 8.6 mg/dL (8.6-10.2) Nucleated Red Blood Cells 2 /100 WBC Macrocytosis 1+ Sickle Cells Occasional H Height (Feet): 5 Height (Inches): 7.00 Weight (Pounds): 150 Medications Current Medications Medications (Trade) Dose Ordered Sig/Anthony Route PRN Reason Start Time Stop Time Status Last Admin Dose Admin Azithromycin/ Dextrose (Zithromax/D5W) 275 ml @ 275 mls/hr Q24HRS IV 09/10/16 16:00 09/15/16 16:59 09/10/16 18:34 Cefepime HCl 1 gm/ Dextrose 55 ml @ 110 mls/hr EVERY 8 HOURS IVPB 09/10/16 06:00 09/17/16 05:59 09/11/16 05:24 Dextrose STAT PRN IV Hypoglycemia 09/09/16 21:30 10/09/16 21:29 Diphenhydramine HCl (Benadryl) 50 mg Q4H PRN IVP Itching 09/09/16 22:15 10/09/16 22:14 09/11/16 09:19 Folic Acid (Folate) 1 mg DAILY ORAL 09/10/16 09:00 10/10/16 08:59 09/11/16 09:19 Gabapentin (Neurontin) 600 mg THREE TIMES A DAY ORAL 09/10/16 09:00 10/10/16 08:59 09/11/16 12:27 Hydromorphone HCl (Dilaudid) 1 mg Q3H PRN IVP Moderate Pain (Pain Scale 4-6) 09/11/16 12:00 09/18/16 11:59 Hydromorphone HCl (Dilaudid) 2 mg Q4HR PRN IVP Severe Pain (Pain Scale 7-10) 09/09/16 21:30 09/16/16 21:29 09/11/16 09:19 Hydroxyurea (Hydrea) 500 mg TWICE A DAY ORAL 09/10/16 09:00 09/15/16 08:59 09/11/16 09:19 Methadone HCl (Methadone HCl) 60 mg EVERY 6 HOURS ORAL 09/10/16 00:00 09/17/16 00:00 09/11/16 12:27 Ondansetron HCl (Zofran) 4 mg EVERY 4 HOURS PRN IVP Nausea & Vomiting 09/09/16 21:30 10/09/16 21:29 Sodium Chloride (Sodium Chloride 1000ml bag) 1,000 ml @ 150 mls/hr Q6H40M IVLG 09/09/16 22:30 10/09/16 22:29 09/11/16 03:57 Zolpidem Tartrate (Ambien) 5 mg DAILYPRN PRN ORAL Insomnia 09/09/16 21:30 10/09/16 21:29 Assessment/Plan Problem List: (1) Purulent bronchitis ICD Codes: J41.1 - Mucopurulent chronic bronchitis SNOMED: 08112780 (2) Interstitial lung disease ICD Codes: J84.9 - Interstitial pulmonary disease, unspecified SNOMED: 05444899, 100321986 (3) Sickle cell pain crisis ICD Codes: D57.00 - Hb-SS disease with crisis, unspecified SNOMED: 837279143 Assessment/Plan check sputum for c/s IV antibiotics antitussives Echo to evaluate cardiac function Pt has interstitial lung damage caused by sickle cell disease. KENNEDY MOORE Sep 11, 2016 13:11
--- NOTE | 2016-09-11 14:33 | General Progress Note ---
Assessment/Plan Assessment/Plan ASSESSMENT: 1. Sickle cell crisis with no evidence of acute chest syndrome. Hgb >7, retic elevated 2. Thrombocytosis - due to reactive process 3. Leukocytosis due to reactive process from anemia 4 Avascular Necrosis of the hip 5. Pain from the sickle cell crisis 6. Pneumonia - being treated on abx RECOMMENDATIONS: - Monitor cell count - Continue hydroxyurea 500mg bid - Continue Folic acid - Adequate hydration - Pain management recs - DVT Prophylaxis with SCDs - Out patient Hematology follow up ( next wk) - staff Sincerely, Marco Dutton MD Subjective Constitutional: Reports: no symptoms HEENT: Reports: no symptoms Cardiovascular: Reports: no symptoms Respiratory: Reports: no symptoms Gastrointestinal/Abdominal: Reports: no symptoms Genitourinary: Reports: no symptoms 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: Reports: anxiety Endocrine: Reports: no symptoms Hematologic/Lymphatic: Reports: anemia Allergies: Coded Allergies: AMPICILLIN (Verified Allergy, Unknown, 08/03/16) KETOROLAC (Verified Allergy, Unknown, 08/03/16) MORPHINE (Verified Allergy, Unknown, 08/03/16) PHENYTOIN (Verified Allergy, Unknown, 08/03/16) Subjective stable, no events, afebrile, no chest pain Objective Last 24 Hour Vital Signs Date Time Temp Pulse Resp B/P Pulse Ox O2 Delivery O2 Flow Rate FiO2 09/11/16 14:22 97.0 09/11/16 13:46 97.0 09/11/16 11:37 97.0 85 20 119/82 99 Nasal Cannula 6.0 09/11/16 08:00 93 09/11/16 07:54 97.0 90 20 145/75 95 Nasal Cannula 6.0 09/11/16 04:00 97.3 88 20 127/56 95 Nasal Cannula 5.0 09/11/16 03:50 92 09/11/16 00:00 97.3 84 20 141/92 96 Nasal Cannula 5.0 09/10/16 23:42 81 09/10/16 20:00 97.7 87 18 121/83 95 Nasal Cannula 6.0 09/10/16 19:29 Nasal Cannula 6.0 09/10/16 19:29 97 Nasal Cannula 6.0 09/10/16 19:01 81 09/10/16 16:00 97.0 87 18 129/73 95 Nasal Cannula 6.0 09/10/16 16:00 85 Intake and Output 09/10/16 09/11/16 19:00 07:00 Intake Total 270 ml 2300 ml Output Total 950 ml 1350 ml Balance -680 ml 950 ml Intake Oral 120 ml 240 ml IV Total 150 ml 2060 ml Output Urine Total 950 ml 1350 ml # Voids 4 Laboratory Tests 09/11/16 06:40: White Blood Count 14.7H, Red Blood Count 2.44L, Hemoglobin 7.7L, Hematocrit 23.3L, Mean Corpuscular Volume 95, Mean Corpuscular Hemoglobin 31.7H, Mean Corpuscular Hemoglobin Concent 33.2, Red Cell Distribution Width 20.8H, Platelet Count 387, Mean Platelet Volume 7.5, Neutrophils (%) (Auto) , Lymphocytes (%) (Auto) , Monocytes (%) (Auto) , Eosinophils (%) (Auto) , Basophils (%) (Auto) , Differential Total Cells Counted 100, Neutrophils % ( Manual) 51, Lymphocytes % (Manual) 27, Monocytes % (Manual) 8, Eosinophils % ( Manual) 14H, Basophils % (Manual) 0, Band Neutrophils 0, Nucleated Red Blood Cells 2, Platelet Estimate Adequate, Platelet Morphology Normal, Hypochromasia 1 +, Anisocytosis 3+, Macrocytosis 1+, Sickle Cells OccasionalH, Sodium Level 143 , Potassium Level 4.8, Chloride Level 101, Carbon Dioxide Level 34H, Anion Gap 8 , Blood Urea Nitrogen 14, Creatinine 0.7, Estimat Glomerular Filtration Rate > 60, Glucose Level 96, Calcium Level 8.6 09/11/16 13:40: Sodium Level [Pending], Potassium Level [Pending], Chloride Level [Pending], Carbon Dioxide Level [Pending], Blood Urea Nitrogen [Pending], Creatinine [ Pending], Estimat Glomerular Filtration Rate [Pending], Glucose Level [Pending] , Calcium Level [Pending], Hemoglobin A [Pending], Hemoglobin A2 [Pending], Hemoglobin C [Pending], Hemoglobin F () [Pending], Hemoglobin S [Pending], Variant Hemoglobin [Pending], Hemoglobin Electrophoresis Interp [Pending], Hemoglobin Interpretation [Pending], Hemoglobin Solubility [Pending], Ferritin [ Pending], Total Bilirubin [Pending], Aspartate Amino Transf (AST/SGOT) [Pending] , Alanine Aminotransferase (ALT/SGPT) [Pending], Alkaline Phosphatase [Pending] , Lactate Dehydrogenase [Pending], Total Protein [Pending], Albumin [Pending], Globulin [Pending] Height (Feet): 5 Height (Inches): 7.00 Weight (Pounds): 150 General Appearance: no apparent distress EENT: TMs normal Neck: supple Cardiovascular: regular rhythm Respiratory/Chest: lungs clear Abdomen: soft Extremities: non-tender Edema: 1+ Leg (L), 1+ Leg (R) Edema: mild edema Neurologic: alert Skin: warm/dry Marco Dutton Sep 11, 2016 14:33
[2016-09-11 14:39] LABS: ALANINE AMINOTRANSFERASE 65 U/L (3-41); ALBUMIN/GLOBULIN RATIO 1.7 (1.0-2.7); ANION GAP 9 (5-15); ASPARTATE AMINO TRANSFERASE 45 U/L (5-40); CARBON DIOXIDE 34 mEQ/L (20-30); CHLORIDE 101 mEQ/L (98-107); CREATININE 0.7 mg/dL (0.7-1.2); GLOMERULAR FILTRATION RATE > 60 mL/min (>60); HEMOLYSIS 10; LACTATE DEHYDROGENASE 459 U/L (135-230); POTASSIUM 5.3 mEQ/L (3.4-4.9); SODIUM 144 mEQ/L (135-145); TOTAL PROTEIN 5.8 g/dL (6.6-8.7)
[2016-09-11 15:06] VITALS: BP 115/79
[2016-09-11 15:10] LABS: FERRITIN > 2000 ng/mL (10-230)
[2016-09-11] MEDS: Azithromycin 500 MG in D5W 275 ML IV SCH (16:16)
[2016-09-11 20:00] VITALS: BP 131/73
[2016-09-11] MEDS ORDERED: Zolpidem 5mg tab ORAL PRN (21:00)
[2016-09-12] VITALS: BP 129/76
--- NOTE | 2016-09-12 01:08 | Consultation ---
DATE OF CONSULTATION: 09/10/2016 HEMATOLOGY/ONCOLOGY CONSULTATION: CONSULTING PHYSICIAN: Aquilino Dutton M.D. ATTENDING PHYSICIAN: Darcy Rollins M.D. REASON FOR CONSULTATION: Sickle cell anemia. CURRENT COMPLAINT/HISTORY OF PRESENT ILLNESS: Dear Dr. Rollins, Today, I had an opportunity to see one of your patients, who as you are aware is a 40-year-old delightful gentleman with a history of sickle cell anemia. The patient was brought to the emergency room of [facility] with shortness of breath and leg pain for few days. The patient stated he has had pain a pain crisis. The pain was sharp, 10/10, nonradiating. During evaluation, it was found the patient had a significant anemia. history of significant anemia. MEDICATIONS: 1. Folic acid. 2. Gabapentin. 3. Hydroxyurea. 4. Levofloxacin. 5. Methadone. ALLERGIES: 1. Ketoralac. 2. Morphine. 3. Phenytoin. SOCIAL HISTORY: No history of smoking. No history of alcohol abuse. No history of tobacco use. FAMILY HISTORY: Noncontributory. REVIEW OF SYSTEMS: General description: The patient is not in any significant distress, but looks chronically ill. Respiratory: Mild shortness of breath on exertion. Gastrointestinal: The patient claims constipation. PHYSICAL EXAMINATION: VITAL SIGNS: T-Max 97 degrees , respiratory rate 20, heart rate 80, and blood pressure 130/80. HEENT: Head is normocephalic and atraumatic. NECK: Supple. No thyroid enlargement. No lymphadenopathy. HEART: S1 and S2 regular. ABDOMEN: Soft and benign. No organomegaly present. Bowel sounds present. EXTREMITIES: No cyanosis, clubbing, or edema. LABORATORY DATA: Hemoglobin 7.9, hematocrit 23.8, platelets 405,000, WBC 14.4, occasional sickle cell. Creatinine 0.7. LDH 456. AST 59 and ALT 73. IMPRESSION: 1. Sickle cell disease. 2. Sickle cell crisis. 3. Anemia secondary to sickle cell. 4. Leukocytosis with left shift. 5. Increased liver function test, rule out liver failure. 6. Interstitial lung disease. 7. Dyspnea. 8. Chronic bronchitis. 9. Pain syndrome. RECOMMENDATIONS: 1. Watch count. 2. Watch coagulopathy. 3. PRBC transfusion p.r.n basis. 4. Hydroxyurea p.o. 5. Folic acid p.o. 6. Pain control. 7. Skin care. 8. Nutrition. Aquilino Dutton MD DR: Rolo JOB#: [id number] CC:
[2016-09-12] MEDS: DiphenhydrAMINE 50mg/ml Inj IVP PRN ×6 (01:38→22:23)
[2016-09-12] MEDS ORDERED: HYDROmorphone 1mg/ml Carpuject IVP ONE (02:15)
[2016-09-12 04:00] VITALS: BP 107/61
[2016-09-12] MEDS: Cefepime HCl 1 GM in D5W 55 ML IVPB SCH ×3 (06:06→22:02)
[2016-09-12 07:15] LABS: MEAN CORPUSCULAR HEMOGLOBIN 31.1 PG (27.0-31.0); MEAN CORPUSCULAR HGB CONC 32.9 G/DL (32.0-36.0); MEAN CORPUSCULAR VOLUME 94 FL (80-99); MEAN PLATELET VOLUME 6.6 FL (6.5-10.1); PLATELET COUNT 366 K/UL (150-450); RED BLOOD COUNT 2.49 M/UL (4.70-6.10); RED CELL DISTRIBUTION WIDTH 19.7 % (11.6-14.8); WHITE BLOOD COUNT 15.7 K/UL (4.8-10.8)
[2016-09-12 08:20] LABS: ANION GAP 8 (5-15); CARBON DIOXIDE 34 mEQ/L (20-30); CHLORIDE 102 mEQ/L (98-107); CREATININE 0.7 mg/dL (0.7-1.2); GLOMERULAR FILTRATION RATE > 60 mL/min (>60); HEMOLYSIS 7; POTASSIUM 5.1 mEQ/L (3.4-4.9); SODIUM 144 mEQ/L (135-145)
[2016-09-12 08:26] VITALS: BP 121/81
--- NOTE | 2016-09-12 08:29 | General Progress Note ---
Assessment/Plan Assessment/Plan (1) Intractable pain ICD Codes: R52 - Pain, unspecified SNOMED: 44925913 (2) Avascular necrosis of femur head, left ICD Codes: M87.052 - Idiopathic aseptic necrosis of left femur SNOMED: 197118452 (3) Sickle cell crisis ICD Codes: D57.00 - Hb-SS disease with crisis, unspecified SNOMED: 524159440 (4) Avascular necrosis of femur head, right ICD Codes: M87.051 - Idiopathic aseptic necrosis of right femur SNOMED: 485120323 Assessment/Plan Patient will be reducing his methadone to 50mg Q6H ATC hold for oversedation and continuing the Dilaudid as needed Pt was d/w Dr. Perera and he concurred. Subjective Date patient seen: Sep 12, 2016 Time patient seen: 07:30 - am Allergies: Coded Allergies: AMPICILLIN (Verified Allergy, Unknown, 08/03/16) KETOROLAC (Verified Allergy, Unknown, 08/03/16) MORPHINE (Verified Allergy, Unknown, 08/03/16) PHENYTOIN (Verified Allergy, Unknown, 08/03/16) Subjective Constitutional: Reports: chills HEENT: Denies: blurred vision, double vision, ear discharge, ear pain, eye pain , mouth pain, mouth swelling, nose congestion, nose pain, tearing, throat pain, throat swelling Cardiovascular: Denies: chest pain, edema, irregular heart rate, lightheadedness, palpitations, syncope Respiratory: Denies: SOB at rest, SOB with excertion, cough, orthopnea, shortness of breath, sputum, stridor, wheezing Gastrointestinal/Abdominal: Denies: abdomen distended, abdominal pain, black stools, blood in stool, constipated, diarrhea, difficulty swallowing, nausea, poor appetite, poor fluid intake, rectal bleeding, tarry stools, vomiting Genitourinary: Reports: other, Denies: burning, discharge, flank pain, frequency, hematuria, incontinence, pain, urgency 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: Reports: other, Denies: anxiety, depressed, emotional problems, headache, numbness, paresthesia, pre-existing deficit, seizure, tingling, tremors, weakness Endocrine: Reports: other, Denies: excessive sweating, flushing, increased hunger, increased thirst, increased urine, intolerance to cold, intolerance to heat, unexplained weight gain, unexplained weight loss Hematologic/Lymphatic: Denies: anemia, easy bleeding, easy bruising Subjective Patient is sleepy in bed. I d/w patient about tapering him down on the methadone and he agrees. Objective Last 24 Hour Vital Signs Date Time Temp Pulse Resp B/P Pulse Ox O2 Delivery O2 Flow Rate FiO2 09/12/16 08:26 97.0 86 21 121/81 95 Nasal Cannula 6.0 09/12/16 04:00 98.4 100 20 107/61 94 Room Air 09/12/16 00:09 83 16 99 Nasal Cannula 6.0 44 09/12/16 00:07 83 16 97 Nasal Cannula 6.0 44 09/12/16 00:00 97.9 84 18 129/76 96 Nasal Cannula 5.0 09/11/16 20:00 97.2 81 16 131/73 98 Nasal Cannula 6.0 09/11/16 19:54 99 Nasal Cannula 6.0 44 09/11/16 19:50 Nasal Cannula 44 09/11/16 19:49 99 Nasal Cannula 44 09/11/16 15:06 97.5 85 21 115/79 96 Nasal Cannula 5.0 09/11/16 14:22 97.0 09/11/16 13:46 97.0 09/11/16 11:37 97.0 85 20 119/82 99 Nasal Cannula 6.0 Intake and Output 09/11/16 09/12/16 19:00 07:00 Intake Total 1140 ml 1530 ml Output Total 1700 ml 2300 ml Balance -560 ml -770 ml Intake Oral 240 ml 480 ml IV Total 900 ml 1050 ml Output Urine Total 1700 ml 2300 ml Laboratory Tests 09/11/16 13:40: Hemoglobin A [Pending], Hemoglobin A2 [Pending], Hemoglobin C [Pending], Hemoglobin F () [Pending], Hemoglobin S [Pending], Variant Hemoglobin [ Pending], Hemoglobin Electrophoresis Interp [Pending], Hemoglobin Interpretation [Pending], Hemoglobin Solubility [Pending], Sodium Level 144, Potassium Level 5.3H, Chloride Level 101, Carbon Dioxide Level 34H, Anion Gap 9 , Blood Urea Nitrogen 13, Creatinine 0.7, Estimat Glomerular Filtration Rate > 60, Glucose Level 104, Calcium Level 9.0, Ferritin > 2000H, Total Bilirubin 0.7 , Aspartate Amino Transf (AST/SGOT) 45H, Alanine Aminotransferase (ALT/SGPT) 65H , Alkaline Phosphatase 167H, Lactate Dehydrogenase 459H, Total Protein 5.8L, Albumin 3.7, Globulin 2.1, Albumin/Globulin Ratio 1.7 09/12/16 07:00: Sodium Level 144, Potassium Level 5.1H, Chloride Level 102, Carbon Dioxide Level 34H, Anion Gap 8, Blood Urea Nitrogen 13, Creatinine 0.7, Estimat Glomerular Filtration Rate > 60, Glucose Level 106, Calcium Level 9.0, White Blood Count 15.7H, Red Blood Count 2.49L, Hemoglobin 7.7L, Hematocrit 23.5L, Mean Corpuscular Volume 94, Mean Corpuscular Hemoglobin 31.1H, Mean Corpuscular Hemoglobin Concent 32.9, Red Cell Distribution Width 19.7H, Platelet Count 366, Mean Platelet Volume 6.6, Neutrophils (%) (Auto) , Lymphocytes (%) (Auto) , Monocytes (%) (Auto) , Eosinophils (%) (Auto) , Basophils (%) (Auto) , Neutrophils % (Manual) [Pending], Lymphocytes % (Manual) [Pending], Platelet Estimate [Pending], Platelet Morphology [Pending] Height (Feet): 5 Height (Inches): 7.00 Weight (Pounds): 150 Objective General Appearance: no apparent distress, alert EENT: PERRL/EOMI, normal ENT inspection Neck: non-tender, normal alignment Cardiovascular: normal rate, regular rhythm Respiratory/Chest: decreased breath sounds Abdomen: non tender, soft Edema: no edema noted Arm (L), no edema noted Arm (R), no edema noted Leg (L), no edema noted Leg (R), no edema noted Pedal (L), no edema noted Pedal (R), no edema noted Generalized Neurologic: alert, oriented x 3 Skin: warm/dry ANTIONE PHILLIPS Sep 12, 2016 08:29
--- NOTE | 2016-09-12 08:38 | Diagnostic Imaging Report ---
Indication: Chest pain Technique: Continuous helical transaxial imaging of the chest was obtained from the thoracic inlet to the upper abdomen during rapid intravenous contrast administration. Arterial phase of enhancement obtained. Coronal 2-D reformats were also obtained and maximum intensity projection images in multiple planes. Study obtained in a Siemens sensation [address] Total Dose length Product (DLP): [address] Dose Index Volume (CTDIvol): 23, 51, 13 mGy Comparison: None Findings: The pulmonary artery is well opacified and shows no filling defects. There is no aortic dissection or aneurysm identified within the chest. Fairly extensive interstitial disease noted throughout the lungs. Pulmonary vascularity appears prominent. The heart is enlarged. The findings could be due to congestive heart failure which is probably most likely. Please correlate clinically. There are confluent nodes demonstrated within the mediastinum and pulmonary [place] bilaterally. Findings could be inflammatory or neoplastic. Visualized part of the upper abdomen shows hepatomegaly and multiple gallstones. Renal parenchymal enhancement is patchy and abnormal. Would consider infarcts. Differential includes bacterial nephritis. Spleen is absent. There is a port in the right anterior chest wall noted. There are endplate deformities and depressions involving some of the lower thoracic vertebra. Findings are nonspecific but may be related to sickle cell disease versus Scheuermann's. There is no kyphosis. Impression: No evidence of pulmonary embolus, aortic dissection or aneurysm. Interstitial edema versus pneumonitis. Mediastinal/hilar lymphadenopathy. Inflammatory versus neoplastic. Abnormal kidneys. Infarcts versus bacterial nephritis. 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 Endplate deformities involving 3 contiguous lower thoracic vertebra. Scheuermann's disease versus more likely sickle cell anemia. Dr. Carter has communicated the preliminary results to the Emergency Department. There are no significant discrepancies. The CT scanner at [facility] is accredited by the [employer] and the scans are performed using protocols designed to limit radiation exposure to as low as reasonably achievable to attain images of sufficient resolution adequate for diagnostic evaluation.
[2016-09-12] MEDS: Hydroxyurea 500mg cap ORAL SCH ×2 (08:46→18:20)
--- NOTE | 2016-09-12 08:59 | General Progress Note ---
Assessment/Plan Assessment/Plan ASSESSMENT: 1. Sickle cell crisis with no evidence of acute chest syndrome. Hgb >7, retic elevated 2. Thrombocytosis - due to reactive process 3. Leukocytosis due to reactive process from anemia 4 Avascular Necrosis of the hip 5. Pain from the sickle cell crisis 6. Pneumonia - being treated on abx RECOMMENDATIONS: - Monitor cell count - Continue hydroxyurea 500mg bid - Continue Folic acid - Adequate hydration - Pain management recs - DVT Prophylaxis with SCDs - Out patient Hematology follow up ( next wk, however patient with hx noncompliance) - staff Sincerely, Marco Dutton MD Subjective Constitutional: Reports: no symptoms HEENT: Reports: no symptoms Cardiovascular: Reports: no symptoms Respiratory: Reports: no symptoms Gastrointestinal/Abdominal: Reports: no symptoms, poor appetite Genitourinary: Reports: no symptoms 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: Reports: no symptoms Endocrine: Reports: no symptoms Hematologic/Lymphatic: Reports: anemia Allergies: Coded Allergies: AMPICILLIN (Verified Allergy, Unknown, 08/03/16) KETOROLAC (Verified Allergy, Unknown, 08/03/16) MORPHINE (Verified Allergy, Unknown, 08/03/16) PHENYTOIN (Verified Allergy, Unknown, 08/03/16) Subjective stable, no events, afebrile, no chest pain Objective Last 24 Hour Vital Signs Date Time Temp Pulse Resp B/P Pulse Ox O2 Delivery O2 Flow Rate FiO2 09/12/16 08:26 97.0 86 21 121/81 95 Nasal Cannula 6.0 09/12/16 04:00 98.4 100 20 107/61 94 Room Air 09/12/16 00:09 83 16 99 Nasal Cannula 6.0 44 09/12/16 00:07 83 16 97 Nasal Cannula 6.0 44 09/12/16 00:00 97.9 84 18 129/76 96 Nasal Cannula 5.0 09/11/16 20:00 97.2 81 16 131/73 98 Nasal Cannula 6.0 09/11/16 19:54 99 Nasal Cannula 6.0 44 09/11/16 19:50 Nasal Cannula 44 09/11/16 19:49 99 Nasal Cannula 44 09/11/16 15:06 97.5 85 21 115/79 96 Nasal Cannula 5.0 09/11/16 14:22 97.0 09/11/16 13:46 97.0 09/11/16 11:37 97.0 85 20 119/82 99 Nasal Cannula 6.0 Intake and Output 09/11/16 09/12/16 19:00 07:00 Intake Total 1140 ml 1530 ml Output Total 1700 ml 2300 ml Balance -560 ml -770 ml Intake Oral 240 ml 480 ml IV Total 900 ml 1050 ml Output Urine Total 1700 ml 2300 ml Laboratory Tests 09/11/16 13:40: Hemoglobin A [Pending], Hemoglobin A2 [Pending], Hemoglobin C [Pending], Hemoglobin F () [Pending], Hemoglobin S [Pending], Variant Hemoglobin [ Pending], Hemoglobin Electrophoresis Interp [Pending], Hemoglobin Interpretation [Pending], Hemoglobin Solubility [Pending], Sodium Level 144, Potassium Level 5.3H, Chloride Level 101, Carbon Dioxide Level 34H, Anion Gap 9 , Blood Urea Nitrogen 13, Creatinine 0.7, Estimat Glomerular Filtration Rate > 60, Glucose Level 104, Calcium Level 9.0, Ferritin > 2000H, Total Bilirubin 0.7 , Aspartate Amino Transf (AST/SGOT) 45H, Alanine Aminotransferase (ALT/SGPT) 65H , Alkaline Phosphatase 167H, Lactate Dehydrogenase 459H, Total Protein 5.8L, Albumin 3.7, Globulin 2.1, Albumin/Globulin Ratio 1.7 09/12/16 07:00: Sodium Level 144, Potassium Level 5.1H, Chloride Level 102, Carbon Dioxide Level 34H, Anion Gap 8, Blood Urea Nitrogen 13, Creatinine 0.7, Estimat Glomerular Filtration Rate > 60, Glucose Level 106, Calcium Level 9.0, White Blood Count 15.7H, Red Blood Count 2.49L, Hemoglobin 7.7L, Hematocrit 23.5L, Mean Corpuscular Volume 94, Mean Corpuscular Hemoglobin 31.1H, Mean Corpuscular Hemoglobin Concent 32.9, Red Cell Distribution Width 19.7H, Platelet Count 366, Mean Platelet Volume 6.6, Neutrophils (%) (Auto) , Lymphocytes (%) (Auto) , Monocytes (%) (Auto) , Eosinophils (%) (Auto) , Basophils (%) (Auto) , Neutrophils % (Manual) [Pending], Lymphocytes % (Manual) [Pending], Platelet Estimate [Pending], Platelet Morphology [Pending] Height (Feet): 5 Height (Inches): 7.00 Weight (Pounds): 150 General Appearance: no apparent distress EENT: normal ENT inspection Neck: supple Cardiovascular: normal rate Respiratory/Chest: normal breath sounds Abdomen: no organomegaly Extremities: non-tender Edema: 1+ Leg (L), 1+ Leg (R) Edema: mild edema Neurologic: alert Skin: warm/dry Marco Dutton Sep 12, 2016 08:59
[2016-09-12 10:40] LABS: ANISOCYTOSIS 1+; BAND NEUTROPHILS % (MANUAL) 0 % (0-8); BASOPHILS % (MANUAL) 0 % (0-2); EOSINOPHILS % (MANUAL) 9 % (0-3); LYMPHOCYTES % (MANUAL) 19 % (20-45); NEUTROPHILS % (MANUAL) 66 % (45-75); PLATELET ESTIMATE ADEQUATE; PLATELET MORPHOLOGY NORMAL; TOTAL CELLS COUNTED 100
[2016-09-12] MEDS ORDERED: Tubing IV Secondary IV ONE (10:40)
[2016-09-12 10:43] LABS: HYPOCHROMASIA 2+; MACROCYTES 1+; SICKLE CELLS OCCASIONAL
[2016-09-12 11:22] VITALS: BP 124/75
--- NOTE | 2016-09-12 12:52 | General Progress Note ---
Assessment/Plan Problem List: (1) Sickle cell pain crisis ICD Codes: D57.00 - Hb-SS disease with crisis, unspecified SNOMED: 428561523 (2) Interstitial lung disease Assessment & Plan: likely 2/2 sickle cell disease per pulm ICD Codes: J84.9 - Interstitial pulmonary disease, unspecified SNOMED: 41525275, 693104412 (3) Pneumonia ICD Codes: J18.9 - Pneumonia, unspecified organism SNOMED: 524402727 Qualifiers: Qualified Codes: J18.9 - Pneumonia, unspecified organism (4) Intractable pain ICD Codes: R52 - Pain, unspecified SNOMED: 96723489 (5) Pulmonary HTN Assessment & Plan: Severe per TTE. 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 SNOMED: 85940928 Status: stable Assessment/Plan - Appreciate hematology, pulmonology, and pain mgmt rec's - Cont abx for possible pneumonia: cefepime and azithro (09/10-) - Monitor cell counts - Continue hydroxyurea 500mg bid - Continue Folic acid - IVFs - Pain control, bowel regimen, supportive care DVT Prophylaxis: SCD Code Status: Full Hospital Classification Declaration: Based on this initial evaluation, and depending on the patient's clinical course, I anticipate that this patient will require hospitalization for 1-2 days for sickle cell crisis, and close respiratory/hemodynamic monitoring. Disposition: Once the patient is stable to leave the hospital, I anticipate the patient will likely be discharged to the following environment: home vs home w/ hh I spent 45 minutes on this patient's case, and 24 minutes were dedicated to counseling and/or care coordination. Discussed with patient/family, nursing staff, SW/CM, pulm, heme regarding clinical status, treatment course, and disposition planning. Time of note may not reflect time of encounter. Subjective Date patient seen: Sep 12, 2016 Time patient seen: 12:52 ROS Limited/Unobtainable: No Constitutional: Reports: no symptoms HEENT: Reports: no symptoms Cardiovascular: Reports: no symptoms Respiratory: Reports: no symptoms Gastrointestinal/Abdominal: Reports: no symptoms Genitourinary: Reports: no symptoms 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: Reports: no symptoms Endocrine: Reports: no symptoms Hematologic/Lymphatic: Reports: no symptoms Allergies: Coded Allergies: AMPICILLIN (Verified Allergy, Unknown, 08/03/16) KETOROLAC (Verified Allergy, Unknown, 08/03/16) MORPHINE (Verified Allergy, Unknown, 08/03/16) PHENYTOIN (Verified Allergy, Unknown, 08/03/16) All Systems: reviewed and negative except above Subjective Continues to c/o increased pain in back, legs Chest pain better Cough improving SOB improving Objective Last 24 Hour Vital Signs Date Time Temp Pulse Resp B/P Pulse Ox O2 Delivery O2 Flow Rate FiO2 09/12/16 12:46 94 Venturi Mask 10.0 50 09/12/16 12:46 Venturi Mask 10.0 50 09/12/16 11:22 97.6 94 19 124/75 95 Nasal Cannula 6.0 09/12/16 08:26 97.0 86 21 121/81 95 Nasal Cannula 6.0 09/12/16 04:00 98.4 100 20 107/61 94 Room Air 09/12/16 00:09 83 16 99 Nasal Cannula 6.0 44 09/12/16 00:07 83 16 97 Nasal Cannula 6.0 44 09/12/16 00:00 97.9 84 18 129/76 96 Nasal Cannula 5.0 09/11/16 20:00 97.2 81 16 131/73 98 Nasal Cannula 6.0 09/11/16 19:54 99 Nasal Cannula 6.0 44 09/11/16 19:50 Nasal Cannula 44 09/11/16 19:49 99 Nasal Cannula 44 09/11/16 15:06 97.5 85 21 115/79 96 Nasal Cannula 5.0 09/11/16 14:22 97.0 09/11/16 13:46 97.0 Intake and Output 09/11/16 09/12/16 19:00 07:00 Intake Total 1140 ml 1680 ml Output Total 1700 ml 2300 ml Balance -560 ml -620 ml Intake Oral 240 ml 480 ml IV Total 900 ml 1200 ml Output Urine Total 1700 ml 2300 ml Laboratory Tests 09/11/16 13:40: Hemoglobin A [Pending], Hemoglobin A2 [Pending], Hemoglobin C [Pending], Hemoglobin F () [Pending], Hemoglobin S [Pending], Variant Hemoglobin [ Pending], Hemoglobin Electrophoresis Interp [Pending], Hemoglobin Interpretation [Pending], Hemoglobin Solubility [Pending], Sodium Level 144, Potassium Level 5.3H, Chloride Level 101, Carbon Dioxide Level 34H, Anion Gap 9 , Blood Urea Nitrogen 13, Creatinine 0.7, Estimat Glomerular Filtration Rate > 60, Glucose Level 104, Calcium Level 9.0, Ferritin > 2000H, Total Bilirubin 0.7 , Aspartate Amino Transf (AST/SGOT) 45H, Alanine Aminotransferase (ALT/SGPT) 65H , Alkaline Phosphatase 167H, Lactate Dehydrogenase 459H, Total Protein 5.8L, Albumin 3.7, Globulin 2.1, Albumin/Globulin Ratio 1.7 09/12/16 07:00: Sodium Level 144, Potassium Level 5.1H, Chloride Level 102, Carbon Dioxide Level 34H, Anion Gap 8, Blood Urea Nitrogen 13, Creatinine 0.7, Estimat Glomerular Filtration Rate > 60, Glucose Level 106, Calcium Level 9.0, White Blood Count 15.7H, Red Blood Count 2.49L, Hemoglobin 7.7L, Hematocrit 23.5L, Mean Corpuscular Volume 94, Mean Corpuscular Hemoglobin 31.1H, Mean Corpuscular Hemoglobin Concent 32.9, Red Cell Distribution Width 19.7H, Platelet Count 366, Mean Platelet Volume 6.6, Neutrophils (%) (Auto) , Lymphocytes (%) (Auto) , Monocytes (%) (Auto) , Eosinophils (%) (Auto) , Basophils (%) (Auto) , Differential Total Cells Counted 100, Neutrophils % (Manual) 66, Lymphocytes % ( Manual) 19L, Monocytes % (Manual) 6, Eosinophils % (Manual) 9H, Basophils % ( Manual) 0, Band Neutrophils 0, Platelet Estimate Adequate, Platelet Morphology Normal, Hypochromasia 2+, Anisocytosis 1+, Macrocytosis 1+, Sickle Cells OccasionalH Height (Feet): 5 Height (Inches): 7.00 Weight (Pounds): 150 Objective General: alert, cooperative, no distress, appears stated age Head: normocephalic, without obvious abnormality, atraumatic Eyes: conjunctivae/corneas clear. PERRL, EOM's intact Throat: lips, mucosa, and tongue normal. MMM Neck: supple, symmetrical, trachea midline, and no JVD Lungs: +rhonchi b/l Heart: regular rate and rhythm, S1, S2 normal, no murmur, click, rub or gallop Abdomen: soft, non-tender, non-distended, bowel sounds normal; no masses or organomegaly Extremities: extremities normal, atraumatic, no cyanosis or edema Pulses: 2+ and symmetric Skin: skin color, texture, turgor normal; no rashes or lesions Neurologic: grossly normal, no focal deficits Jerri Samaniego M.D. Sep 12, 2016 12:52
--- NOTE | 2016-09-12 14:43 | Diagnostic Imaging Report ---
APPROVED REPORT CPT Code: 38429 Present Symptoms Lower Extremity Edema: Bilateral BILATERAL: Imaging reveals a patent deep venous system bilaterally. There is no evidence of thrombus within the femoral, popliteal or tibial segments. The greater saphenous veins are also within normal limits. Doppler indicates normal spontaneous flow within these segments.
[2016-09-12] MEDS: Azithromycin 500 MG in D5W 275 ML IV SCH (15:45)
--- NOTE | 2016-09-12 15:46 | Pulmonology Progress Note ---
Assessment/Plan Problems: (1) Purulent bronchitis (2) Interstitial lung disease (3) Sickle cell pain crisis Assessment/Plan Iv fluids f/u LDH, bilirubin Nasal cannula check cultures the changes of the lung are chronic Subjective ROS Limited/Unobtainable: Yes - somn Interval Events: somnolent, no dyspnea, no cough, no chest pain Allergies: Coded Allergies: AMPICILLIN (Verified Allergy, Unknown, 08/03/16) KETOROLAC (Verified Allergy, Unknown, 08/03/16) MORPHINE (Verified Allergy, Unknown, 08/03/16) PHENYTOIN (Verified Allergy, Unknown, 08/03/16) Objective Last 24 Hour Vital Signs Date Time Temp Pulse Resp B/P Pulse Ox O2 Delivery O2 Flow Rate FiO2 09/12/16 12:46 94 Venturi Mask 10.0 50 09/12/16 12:46 Venturi Mask 10.0 50 09/12/16 11:22 97.6 94 19 124/75 95 Nasal Cannula 6.0 09/12/16 08:26 97.0 86 21 121/81 95 Nasal Cannula 6.0 09/12/16 04:00 98.4 100 20 107/61 94 Room Air 09/12/16 00:09 83 16 99 Nasal Cannula 6.0 44 09/12/16 00:07 83 16 97 Nasal Cannula 6.0 44 09/12/16 00:00 97.9 84 18 129/76 96 Nasal Cannula 5.0 09/11/16 20:00 97.2 81 16 131/73 98 Nasal Cannula 6.0 09/11/16 19:54 99 Nasal Cannula 6.0 44 09/11/16 19:50 Nasal Cannula 44 09/11/16 19:49 99 Nasal Cannula 44 Intake and Output 09/11/16 09/12/16 19:00 07:00 Intake Total 1140 ml 1680 ml Output Total 1700 ml 2300 ml Balance -560 ml -620 ml Intake Oral 240 ml 480 ml IV Total 900 ml 1200 ml Output Urine Total 1700 ml 2300 ml General Appearance: WD/WN Respiratory/Chest: chest wall non-tender Abdomen: normal bowel sounds, soft, non tender Extremities: no cyanosis Skin: no rash Microbiology Date/Time Source Procedure Growth Status 09/10/16 00:20 Nasal Nares Left MRSA Culture - Final NO METHICILLIN RESISTANT STAPH AUREUS... Complete Laboratory Tests 09/12/16 07:00: White Blood Count 15.7H, Red Blood Count 2.49L, Hemoglobin 7.7L, Hematocrit 23.5L, Mean Corpuscular Volume 94, Mean Corpuscular Hemoglobin 31.1H, Mean Corpuscular Hemoglobin Concent 32.9, Red Cell Distribution Width 19.7H, Platelet Count 366, Mean Platelet Volume 6.6, Neutrophils (%) (Auto) , Lymphocytes (%) (Auto) , Monocytes (%) (Auto) , Eosinophils (%) (Auto) , Basophils (%) (Auto) , Differential Total Cells Counted 100, Neutrophils % ( Manual) 66, Lymphocytes % (Manual) 19L, Monocytes % (Manual) 6, Eosinophils % ( Manual) 9H, Basophils % (Manual) 0, Band Neutrophils 0, Platelet Estimate Adequate, Platelet Morphology Normal, Hypochromasia 2+, Anisocytosis 1+, Macrocytosis 1+, Sickle Cells OccasionalH, Sodium Level 144, Potassium Level 5.1H, Chloride Level 102, Carbon Dioxide Level 34H, Anion Gap 8, Blood Urea Nitrogen 13, Creatinine 0.7, Estimat Glomerular Filtration Rate > 60, Glucose Level 106, Calcium Level 9.0 Current Medications Medications (Trade) Dose Ordered Sig/Anthony Route PRN Reason Start Time Stop Time Status Last Admin Dose Admin Azithromycin 500 mg/Dextrose 275 ml @ 275 mls/hr Q24HRS IV 09/11/16 16:00 09/15/16 16:01 09/11/16 16:16 Cefepime HCl 1 gm/ Dextrose 55 ml @ 110 mls/hr EVERY 8 HOURS IVPB 09/11/16 22:00 09/18/16 21:59 09/12/16 13:21 Dextrose (Dextrose 50%) STAT PRN IV Hypoglycemia 09/11/16 16:00 10/11/16 15:59 Diphenhydramine HCl (Benadryl) 50 mg Q4H PRN IVP Itching 09/11/16 18:00 10/11/16 17:59 09/12/16 14:05 Folic Acid (Folate) 1 mg DAILY ORAL 09/12/16 09:00 10/12/16 08:59 09/12/16 08:47 Gabapentin (Neurontin) 600 mg THREE TIMES A DAY ORAL 09/11/16 18:00 10/11/16 17:59 09/12/16 13:21 Hydromorphone HCl (Dilaudid) 1 mg Q3H PRN IVP Moderate Pain (Pain Scale 4-6) 09/11/16 18:00 09/18/16 17:59 Hydromorphone HCl (Dilaudid) 2 mg Q4HR PRN IVP Severe Pain (Pain Scale 7-10) 09/11/16 17:00 09/18/16 16:59 09/12/16 14:06 Hydroxyurea (Hydrea) 500 mg TWICE A DAY ORAL 09/11/16 18:00 09/16/16 17:59 09/12/16 08:46 Methadone HCl (Methadone HCl) 50 mg Q6HR ORAL 09/12/16 18:00 09/19/16 17:59 Ondansetron HCl (Zofran) 4 mg EVERY 4 HOURS PRN IVP Nausea & Vomiting 09/11/16 17:00 10/11/16 16:59 Sodium Chloride (Sodium Chloride 1000ml bag) 1,000 ml @ 150 mls/hr Q6H40M IVLG 09/11/16 16:00 10/11/16 15:59 09/12/16 11:51 Zolpidem Tartrate (Ambien) 5 mg DAILYPRN PRN ORAL Insomnia 09/11/16 21:00 10/11/16 20:59 KENNEDY MOORE Sep 12, 2016 15:45
[2016-09-12 16:00] VITALS: BP 118/79
[2016-09-12 19:00] VITALS: BP 134/75
[2016-09-13] VITALS: BP 126/87
[2016-09-13] MEDS: DiphenhydrAMINE 50mg/ml Inj IVP PRN ×5 (02:45→21:04)
[2016-09-13 04:00] VITALS: BP 135/94
[2016-09-13] MEDS: Cefepime HCl 1 GM in D5W 55 ML IVPB SCH ×3 (05:55→21:05)
[2016-09-13 06:48] LABS: MEAN CORPUSCULAR HEMOGLOBIN 30.2 PG (27.0-31.0); MEAN CORPUSCULAR HGB CONC 32.8 G/DL (32.0-36.0); MEAN CORPUSCULAR VOLUME 92 FL (80-99); MEAN PLATELET VOLUME 7.1 FL (6.5-10.1); PLATELET COUNT 335 K/UL (150-450); RED BLOOD COUNT 2.33 M/UL (4.70-6.10); RED CELL DISTRIBUTION WIDTH 18.8 % (11.6-14.8); WHITE BLOOD COUNT 16.9 K/UL (4.8-10.8)
[2016-09-13 07:15] LABS: ALANINE AMINOTRANSFERASE 45 U/L (3-41); ALBUMIN/GLOBULIN RATIO 1.5 (1.0-2.7); ANION GAP 5 (5-15); ASPARTATE AMINO TRANSFERASE 37 U/L (5-40); CALCIUM 9.2 mg/dL (8.6-10.2); CARBON DIOXIDE 36 mEQ/L (20-30); CHLORIDE 100 mEQ/L (98-107); CREATININE 0.7 mg/dL (0.7-1.2); GLOMERULAR FILTRATION RATE > 60 mL/min (>60); HEMOLYSIS 5; SODIUM 141 mEQ/L (135-145); TOTAL PROTEIN 5.9 g/dL (6.6-8.7)
[2016-09-13 08:15] VITALS: BP 144/106
--- NOTE | 2016-09-13 08:19 | General Progress Note ---
Assessment/Plan Assessment/Plan (1) Intractable pain ICD Codes: R52 - Pain, unspecified SNOMED: 19733272 (2) Avascular necrosis of femur head, left ICD Codes: M87.052 - Idiopathic aseptic necrosis of left femur SNOMED: 892138148 (3) Sickle cell crisis ICD Codes: D57.00 - Hb-SS disease with crisis, unspecified SNOMED: 971686832 (4) Avascular necrosis of femur head, right ICD Codes: M87.051 - Idiopathic aseptic necrosis of right femur SNOMED: 473294190 Assessment/Plan Patient will be continue methadone, Dilaudid and Ambien will be increased to 10mg Pt was d/w Dr. Perera and he concurred. Subjective Date patient seen: Sep 13, 2016 Time patient seen: 07:00 - am Allergies: Coded Allergies: AMPICILLIN (Verified Allergy, Unknown, 08/03/16) KETOROLAC (Verified Allergy, Unknown, 08/03/16) MORPHINE (Verified Allergy, Unknown, 08/03/16) PHENYTOIN (Verified Allergy, Unknown, 08/03/16) Subjective Constitutional: Reports: chills HEENT: Denies: blurred vision, double vision, ear discharge, ear pain, eye pain , mouth pain, mouth swelling, nose congestion, nose pain, tearing, throat pain, throat swelling Cardiovascular: Denies: chest pain, edema, irregular heart rate, lightheadedness, palpitations, syncope Respiratory: Denies: SOB at rest, SOB with excertion, cough, orthopnea, shortness of breath, sputum, stridor, wheezing Gastrointestinal/Abdominal: Denies: abdomen distended, abdominal pain, black stools, blood in stool, constipated, diarrhea, difficulty swallowing, nausea, poor appetite, poor fluid intake, rectal bleeding, tarry stools, vomiting Genitourinary: Reports: other, Denies: burning, discharge, flank pain, frequency, hematuria, incontinence, pain, urgency 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: Reports: other, Denies: anxiety, depressed, emotional problems, headache, numbness, paresthesia, pre-existing deficit, seizure, tingling, tremors, weakness Endocrine: Reports: other, Denies: excessive sweating, flushing, increased hunger, increased thirst, increased urine, intolerance to cold, intolerance to heat, unexplained weight gain, unexplained weight loss Hematologic/Lymphatic: Denies: anemia, easy bleeding, easy bruising Subjective Patient is awake and c/o pain. Saying that he was unable to sleep at night. He had received a Ambien which he says was ineffective. I d/w him about medications and SE that can occur he understands. Objective Last 24 Hour Vital Signs Date Time Temp Pulse Resp B/P Pulse Ox O2 Delivery O2 Flow Rate FiO2 09/13/16 05:11 Nasal Cannula 6.0 09/13/16 04:00 97.2 84 20 135/94 95 Nasal Cannula 4.0 09/13/16 00:00 97.9 101 20 126/87 90 Nasal Cannula 2.0 09/12/16 19:51 96 Nasal Cannula 6.0 09/12/16 19:51 Nasal Cannula 6.0 09/12/16 19:00 97.9 97 20 134/75 93 Nasal Cannula 5.0 09/12/16 16:00 97.3 92 20 118/79 93 Nasal Cannula 5.0 09/12/16 12:46 94 Venturi Mask 10.0 50 09/12/16 12:46 Venturi Mask 10.0 50 09/12/16 11:22 97.6 94 19 124/75 95 Nasal Cannula 6.0 09/12/16 08:26 97.0 86 21 121/81 95 Nasal Cannula 6.0 Intake and Output 09/12/16 09/13/16 19:00 07:00 Intake Total 1955 ml 3725 ml Output Total 1900 ml 3000 ml Balance 55 ml 725 ml Intake Oral 520 ml 2320 ml IV Total 1435 ml 1405 ml Output Urine Total 1900 ml 3000 ml # Voids 3 Laboratory Tests 09/13/16 06:00: White Blood Count 16.9H, Red Blood Count 2.33L, Hemoglobin 7.0L, Hematocrit 21.4L, Mean Corpuscular Volume 92, Mean Corpuscular Hemoglobin 30.2, Mean Corpuscular Hemoglobin Concent 32.8, Red Cell Distribution Width 18.8H, Platelet Count 335, Mean Platelet Volume 7.1, Neutrophils (%) (Auto) , Lymphocytes (%) (Auto) , Monocytes (%) (Auto) , Eosinophils (%) (Auto) , Basophils (%) (Auto) , Neutrophils % (Manual) [Pending], Lymphocytes % (Manual) [Pending], Platelet Estimate [Pending], Platelet Morphology [Pending], Sodium Level 141, Potassium Level 5.0H, Chloride Level 100, Carbon Dioxide Level 36H, Anion Gap 5, Blood Urea Nitrogen 13, Creatinine 0.7, Estimat Glomerular Filtration Rate > 60, Glucose Level 87, Calcium Level 9.2, Total Bilirubin 0.8, Aspartate Amino Transf (AST/SGOT) 37, Alanine Aminotransferase (ALT/SGPT) 45H, Alkaline Phosphatase 144H, Total Protein 5.9L, Albumin 3.6, Globulin 2.3, Albumin/Globulin Ratio 1.5 Height (Feet): 5 Height (Inches): 7.00 Weight (Pounds): 150 Objective General Appearance: no apparent distress, alert EENT: PERRL/EOMI, normal ENT inspection Neck: non-tender, normal alignment Cardiovascular: normal rate, regular rhythm Respiratory/Chest: decreased breath sounds Abdomen: non tender, soft Edema: no edema noted Arm (L), no edema noted Arm (R), no edema noted Leg (L), no edema noted Leg (R), no edema noted Pedal (L), no edema noted Pedal (R), no edema noted Generalized Neurologic: alert, oriented x 3 Skin: warm/dry ANTIONE PHILLIPS Sep 13, 2016 08:19
[2016-09-13] MEDS: Hydroxyurea 500mg cap ORAL SCH ×2 (08:23→18:55)
[2016-09-13 08:37] LABS: BAND NEUTROPHILS % (MANUAL) 0 % (0-8); BASOPHILS % (MANUAL) 0 % (0-2); EOSINOPHILS % (MANUAL) 10 % (0-3); LYMPHOCYTES % (MANUAL) 24 % (20-45); NEUTROPHILS % (MANUAL) 59 % (45-75); NUCLEATED RED BLOOD CELLS 1 /100 WBC; PLATELET ESTIMATE ADEQUATE; PLATELET MORPHOLOGY NORMAL; TOTAL CELLS COUNTED 100
[2016-09-13 08:39] LABS: ANISOCYTOSIS 2+
[2016-09-13 08:42] LABS: SICKLE CELLS OCCASIONAL
[2016-09-13 08:43] LABS: HYPOCHROMASIA 1+; POIKILOCYTOSIS 1+
--- NOTE | 2016-09-13 09:35 | General Progress Note ---
Assessment/Plan Assessment/Plan ASSESSMENT: 1. Sickle cell crisis with no evidence of acute chest syndrome. Hgb >7 goal, patient continues to be in pain at this time, has been seen by pain service, adjusting meds as needed. Is on a incentive spirometry. Retic is at 3. Bili is nml. He has a hx of noncompliance, has extremely high opiod tolerance. I have stressed importance of followup in the office, has been noncompliant with this as well. 2. Thrombocytosis - due to reactive process 3. Leukocytosis due to reactive process from anemia 4 Avascular Necrosis of the hip 5. Pain from the sickle cell crisis 6. Pneumonia - being treated on abx RECOMMENDATIONS: - Monitor cell count - Continue hydroxyurea 500mg bid as well as folic acid - Check retic and bili levels daily - Hgb S percentage is pending - Pain management recs - DVT Prophylaxis with SCDs - Out patient Hematology follow up ( next wk, however patient with hx noncompliance) - staff as well as Dr. Mckenna Thank you, Marco Dutton MD Subjective Constitutional: Reports: no symptoms HEENT: Reports: no symptoms Cardiovascular: Reports: no symptoms Respiratory: Reports: no symptoms Gastrointestinal/Abdominal: Reports: no symptoms Genitourinary: Reports: no symptoms 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: Reports: no symptoms Endocrine: Reports: no symptoms Hematologic/Lymphatic: Reports: anemia Allergies: Coded Allergies: AMPICILLIN (Verified Allergy, Unknown, 08/03/16) KETOROLAC (Verified Allergy, Unknown, 08/03/16) MORPHINE (Verified Allergy, Unknown, 08/03/16) PHENYTOIN (Verified Allergy, Unknown, 08/03/16) Subjective stable, no events, afebrile, without chest pain Objective Last 24 Hour Vital Signs Date Time Temp Pulse Resp B/P Pulse Ox O2 Delivery O2 Flow Rate FiO2 09/13/16 08:15 97.7 84 21 144/106 99 09/13/16 05:11 Nasal Cannula 6.0 09/13/16 04:00 97.2 84 20 135/94 95 Nasal Cannula 4.0 09/13/16 00:00 97.9 101 20 126/87 90 Nasal Cannula 2.0 09/12/16 19:51 96 Nasal Cannula 6.0 09/12/16 19:51 Nasal Cannula 6.0 09/12/16 19:00 97.9 97 20 134/75 93 Nasal Cannula 5.0 09/12/16 16:00 97.3 92 20 118/79 93 Nasal Cannula 5.0 09/12/16 12:46 94 Venturi Mask 10.0 50 09/12/16 12:46 Venturi Mask 10.0 50 Intake and Output 09/12/16 09/13/16 17:00 05:00 Intake Total 1955 ml 2125 ml Output Total 3400 ml 1400 ml Balance -1445 ml 725 ml Intake Oral 520 ml 720 ml IV Total 1435 ml 1405 ml Output Urine Total 3400 ml 1400 ml # Voids 3 Laboratory Tests 09/13/16 06:00: White Blood Count 16.9H, Red Blood Count 2.33L, Hemoglobin 7.0L, Hematocrit 21.4L, Mean Corpuscular Volume 92, Mean Corpuscular Hemoglobin 30.2, Mean Corpuscular Hemoglobin Concent 32.8, Red Cell Distribution Width 18.8H, Platelet Count 335, Mean Platelet Volume 7.1, Neutrophils (%) (Auto) , Lymphocytes (%) (Auto) , Monocytes (%) (Auto) , Eosinophils (%) (Auto) , Basophils (%) (Auto) , Differential Total Cells Counted 100, Neutrophils % ( Manual) 59, Lymphocytes % (Manual) 24, Monocytes % (Manual) 7, Eosinophils % ( Manual) 10H, Basophils % (Manual) 0, Band Neutrophils 0, Nucleated Red Blood Cells 1, Platelet Estimate Adequate, Platelet Morphology Normal, Hypochromasia 1 +, Poikilocytosis 1+, Anisocytosis 2+, Sickle Cells OccasionalH, Sodium Level 141, Potassium Level 5.0H, Chloride Level 100, Carbon Dioxide Level 36H, Anion Gap 5, Blood Urea Nitrogen 13, Creatinine 0.7, Estimat Glomerular Filtration Rate > 60, Glucose Level 87, Calcium Level 9.2, Total Bilirubin 0.8, Aspartate Amino Transf (AST/SGOT) 37, Alanine Aminotransferase (ALT/SGPT) 45H, Alkaline Phosphatase 144H, Total Protein 5.9L, Albumin 3.6, Globulin 2.3, Albumin/ Globulin Ratio 1.5 Height (Feet): 5 Height (Inches): 7.00 Weight (Pounds): 150 General Appearance: no apparent distress EENT: TMs normal Neck: supple Cardiovascular: regular rhythm Respiratory/Chest: normal breath sounds Abdomen: soft Extremities: non-tender Edema: 1+ Leg (L), 1+ Leg (R) Edema: mild edema Neurologic: alert Skin: warm/dry Marco Dutton Sep 13, 2016 09:35
[2016-09-13 10:05] LABS: OTHERS PATHOLOGIST COMMENT
[2016-09-13 10:06] LABS: OTHERS PATHOLOGIST COMMENT; SICKLE CELLS OCCASIONAL
--- NOTE | 2016-09-13 11:21 | General Progress Note ---
Assessment/Plan Problem List: (1) Sickle cell pain crisis ICD Codes: D57.00 - Hb-SS disease with crisis, unspecified SNOMED: 059238413 (2) Interstitial lung disease Assessment & Plan: likely 2/2 sickle cell disease per pulm ICD Codes: J84.9 - Interstitial pulmonary disease, unspecified SNOMED: 08991083, 476325832 (3) Pneumonia ICD Codes: J18.9 - Pneumonia, unspecified organism SNOMED: 369653133 Qualifiers: Qualified Codes: J18.9 - Pneumonia, unspecified organism (4) Intractable pain ICD Codes: R52 - Pain, unspecified SNOMED: 15402545 (5) Pulmonary HTN Assessment & Plan: Severe per TTE. 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 SNOMED: 89780508 Status: stable Assessment/Plan - Appreciate hematology, pulmonology, and pain mgmt rec's - Cont abx for possible pneumonia: cefepime and azithro (09/10-) - Monitor cell counts - Continue hydroxyurea 500mg bid - Continue Folic acid - IVFs - Pain control, bowel regimen, supportive care - Transfuse 1U pRBC today per heme DVT Prophylaxis: SCD Code Status: Full Hospital Classification Declaration: Based on this initial evaluation, and depending on the patient's clinical course, I anticipate that this patient will require hospitalization for 1-2 days for sickle cell crisis, and close respiratory/hemodynamic monitoring. Disposition: Once the patient is stable to leave the hospital, I anticipate the patient will likely be discharged to the following environment: home vs home w/ hh I spent 45 minutes on this patient's case, and 24 minutes were dedicated to counseling and/or care coordination. Discussed with patient/family, nursing staff, SW/CM, pulm, heme regarding clinical status, treatment course, and disposition planning. Time of note may not reflect time of encounter. Subjective Date patient seen: Sep 13, 2016 Time patient seen: 11:21 ROS Limited/Unobtainable: No Constitutional: Reports: no symptoms HEENT: Reports: no symptoms Cardiovascular: Reports: no symptoms Respiratory: Reports: cough Gastrointestinal/Abdominal: Reports: no symptoms Genitourinary: Reports: no symptoms 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: Reports: no symptoms Endocrine: Reports: no symptoms Hematologic/Lymphatic: Reports: no symptoms Allergies: Coded Allergies: AMPICILLIN (Verified Allergy, Unknown, 08/03/16) KETOROLAC (Verified Allergy, Unknown, 08/03/16) MORPHINE (Verified Allergy, Unknown, 08/03/16) PHENYTOIN (Verified Allergy, Unknown, 08/03/16) All Systems: reviewed and negative except above Subjective Continues to c/o increased pain in back, legs Chest pain better Cough improving SOB improving Hgb 7 this AM. 1U pRBC ordered to be transfused Objective Last 24 Hour Vital Signs Date Time Temp Pulse Resp B/P Pulse Ox O2 Delivery O2 Flow Rate FiO2 09/13/16 08:15 97.7 84 21 144/106 99 09/13/16 07:15 99 Nasal Cannula 5.0 09/13/16 05:11 Nasal Cannula 6.0 09/13/16 04:00 97.2 84 20 135/94 95 Nasal Cannula 4.0 09/13/16 00:00 97.9 101 20 126/87 90 Nasal Cannula 2.0 09/12/16 19:51 96 Nasal Cannula 6.0 09/12/16 19:51 Nasal Cannula 6.0 09/12/16 19:00 97.9 97 20 134/75 93 Nasal Cannula 5.0 09/12/16 16:00 97.3 92 20 118/79 93 Nasal Cannula 5.0 09/12/16 12:46 94 Venturi Mask 10.0 50 09/12/16 12:46 Venturi Mask 10.0 50 09/12/16 11:22 97.6 94 19 124/75 95 Nasal Cannula 6.0 Intake and Output 09/12/16 09/13/16 19:00 07:00 Intake Total 1955 ml 3725 ml Output Total 1900 ml 3000 ml Balance 55 ml 725 ml Intake Oral 520 ml 2320 ml IV Total 1435 ml 1405 ml Output Urine Total 1900 ml 3000 ml # Voids 3 Laboratory Tests 09/13/16 06:00: White Blood Count 16.9H, Red Blood Count 2.33L, Hemoglobin 7.0L, Hematocrit 21.4L, Mean Corpuscular Volume 92, Mean Corpuscular Hemoglobin 30.2, Mean Corpuscular Hemoglobin Concent 32.8, Red Cell Distribution Width 18.8H, Platelet Count 335, Mean Platelet Volume 7.1, Neutrophils (%) (Auto) , Lymphocytes (%) (Auto) , Monocytes (%) (Auto) , Eosinophils (%) (Auto) , Basophils (%) (Auto) , Differential Total Cells Counted 100, Neutrophils % ( Manual) 59, Lymphocytes % (Manual) 24, Monocytes % (Manual) 7, Eosinophils % ( Manual) 10H, Basophils % (Manual) 0, Band Neutrophils 0, Nucleated Red Blood Cells 1, Platelet Estimate Adequate, Platelet Morphology Normal, Hypochromasia 1 +, Poikilocytosis 1+, Anisocytosis 2+, Sickle Cells OccasionalH, Sodium Level 141, Potassium Level 5.0H, Chloride Level 100, Carbon Dioxide Level 36H, Anion Gap 5, Blood Urea Nitrogen 13, Creatinine 0.7, Estimat Glomerular Filtration Rate > 60, Glucose Level 87, Calcium Level 9.2, Total Bilirubin 0.8, Aspartate Amino Transf (AST/SGOT) 37, Alanine Aminotransferase (ALT/SGPT) 45H, Alkaline Phosphatase 144H, Total Protein 5.9L, Albumin 3.6, Globulin 2.3, Albumin/ Globulin Ratio 1.5 Height (Feet): 5 Height (Inches): 7.00 Weight (Pounds): 150 Objective General: alert, cooperative, no distress, appears stated age Head: normocephalic, without obvious abnormality, atraumatic Eyes: conjunctivae/corneas clear. PERRL, EOM's intact Throat: lips, mucosa, and tongue normal. MMM Neck: supple, symmetrical, trachea midline, and no JVD Lungs: +rhonchi b/l Heart: regular rate and rhythm, S1, S2 normal, no murmur, click, rub or gallop Abdomen: soft, non-tender, non-distended, bowel sounds normal; no masses or organomegaly Extremities: extremities normal, atraumatic, no cyanosis or edema Pulses: 2+ and symmetric Skin: skin color, texture, turgor normal; no rashes or lesions Neurologic: grossly normal, no focal deficits Jerri Samaniego M.D. Sep 13, 2016 11:21
[2016-09-13 11:59] VITALS: BP 145/95
[2016-09-13 16:00] VITALS: BP 135/86
[2016-09-13] MEDS: Azithromycin 500 MG in D5W 275 ML IV SCH (16:44)
[2016-09-13] MEDS ORDERED: Tubing Blood Filter IV ONE (16:46)
[2016-09-13] MEDS ORDERED: NS 550ML IV ONE (16:46)
[2016-09-13 20:00] VITALS: BP 154/109
[2016-09-13] MEDS ORDERED: Zolpidem 5mg tab ORAL PRN ×2 (21:00→22:00)
[2016-09-14] VITALS: BP 122/70
[2016-09-14] MEDS: DiphenhydrAMINE 50mg/ml Inj IVP PRN ×6 (01:30→21:53)
[2016-09-14 04:00] VITALS: BP 146/104
[2016-09-14] MEDS: Cefepime HCl 1 GM in D5W 55 ML IVPB SCH ×3 (05:29→21:53)
[2016-09-14 06:54] LABS: BASOPHILS % (AUTO) 1.6 % (0.0-2.0); EOSINOPHILS % (AUTO) 11.6 % (0.0-3.0); LYMPHOCYTES % (AUTO) 40.2 % (20.0-45.0); MEAN CORPUSCULAR HEMOGLOBIN 30.2 PG (27.0-31.0); MEAN CORPUSCULAR HGB CONC 32.5 G/DL (32.0-36.0); MEAN CORPUSCULAR VOLUME 93 FL (80-99); MEAN PLATELET VOLUME 7.3 FL (6.5-10.1); MONOCYTES % (AUTO) 6.6 % (1.0-10.0); PLATELET COUNT 310 K/UL (150-450); RED BLOOD COUNT 2.95 M/UL (4.70-6.10); RED CELL DISTRIBUTION WIDTH 19.3 % (11.6-14.8); WHITE BLOOD COUNT 14.7 K/UL (4.8-10.8)
[2016-09-14 07:38] LABS: ANION GAP 6 (5-15); CALCIUM 9.4 mg/dL (8.6-10.2); CARBON DIOXIDE 36 mEQ/L (20-30); CHLORIDE 98 mEQ/L (98-107); CREATININE 0.7 mg/dL (0.7-1.2); GLOMERULAR FILTRATION RATE > 60 mL/min (>60); HEMOLYSIS 13; POTASSIUM 5.2 mEQ/L (3.4-4.9); SODIUM 140 mEQ/L (135-145)
[2016-09-14 08:15] VITALS: BP 137/92
--- NOTE | 2016-09-14 08:16 | General Progress Note ---
Assessment/Plan Assessment/Plan (1) Intractable pain ICD Codes: R52 - Pain, unspecified SNOMED: 90205706 (2) Avascular necrosis of femur head, left ICD Codes: M87.052 - Idiopathic aseptic necrosis of left femur SNOMED: 975225103 (3) Sickle cell crisis ICD Codes: D57.00 - Hb-SS disease with crisis, unspecified SNOMED: 075439992 (4) Avascular necrosis of femur head, right ICD Codes: M87.051 - Idiopathic aseptic necrosis of right femur SNOMED: 152308419 Assessment/Plan Patient will be continue methadone, Dilaudid and Ambien Pt was d/w Dr. Perera and he concurred. Subjective Date patient seen: Sep 14, 2016 Time patient seen: 07:30 - am Allergies: Coded Allergies: AMPICILLIN (Verified Allergy, Unknown, 08/03/16) KETOROLAC (Verified Allergy, Unknown, 08/03/16) MORPHINE (Verified Allergy, Unknown, 08/03/16) PHENYTOIN (Verified Allergy, Unknown, 08/03/16) Subjective Constitutional: Reports: chills HEENT: Denies: blurred vision, double vision, ear discharge, ear pain, eye pain , mouth pain, mouth swelling, nose congestion, nose pain, tearing, throat pain, throat swelling Cardiovascular: Denies: chest pain, edema, irregular heart rate, lightheadedness, palpitations, syncope Respiratory: Denies: SOB at rest, SOB with excertion, cough, orthopnea, shortness of breath, sputum, stridor, wheezing Gastrointestinal/Abdominal: Denies: abdomen distended, abdominal pain, black stools, blood in stool, constipated, diarrhea, difficulty swallowing, nausea, poor appetite, poor fluid intake, rectal bleeding, tarry stools, vomiting Genitourinary: Reports: other, Denies: burning, discharge, flank pain, frequency, hematuria, incontinence, pain, urgency 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: Reports: other, Denies: anxiety, depressed, emotional problems, headache, numbness, paresthesia, pre-existing deficit, seizure, tingling, tremors, weakness Endocrine: Reports: other, Denies: excessive sweating, flushing, increased hunger, increased thirst, increased urine, intolerance to cold, intolerance to heat, unexplained weight gain, unexplained weight loss Hematologic/Lymphatic: Denies: anemia, easy bleeding, easy bruising Subjective Pain has been unchanged continues to use medications which has allowed patient to tolerate pain. Objective Last 24 Hour Vital Signs Date Time Temp Pulse Resp B/P Pulse Ox O2 Delivery O2 Flow Rate FiO2 09/14/16 07:13 99 Nasal Cannula 6.0 09/14/16 07:13 Nasal Cannula 6.0 09/14/16 04:00 96.8 76 18 146/104 93 Nasal Cannula 4.0 09/14/16 00:00 97.5 80 18 122/70 93 Nasal Cannula 4.0 09/13/16 20:00 98.1 82 15 154/109 98 Nasal Cannula 09/13/16 19:44 Nasal Cannula 6.0 09/13/16 19:43 100 Nasal Cannula 6.0 09/13/16 16:00 98.2 87 16 135/86 92 Room Air 09/13/16 11:59 97.7 88 20 145/95 97 Nasal Cannula 2.0 Intake and Output 09/13/16 09/14/16 19:00 07:00 Intake Total 560 ml 1010 ml Output Total 700 ml 3200 ml Balance -140 ml -2190 ml Intake Oral 1010 ml IV Total 560 ml Output Urine Total 700 ml 3200 ml # Voids 3 3 Laboratory Tests 09/14/16 05:30: White Blood Count 14.7H, Red Blood Count 2.95L, Hemoglobin 8.9L, Hematocrit 27.4L, Mean Corpuscular Volume 93, Mean Corpuscular Hemoglobin 30.2, Mean Corpuscular Hemoglobin Concent 32.5, Red Cell Distribution Width 19.3H, Platelet Count 310, Mean Platelet Volume 7.3, Neutrophils (%) (Auto) 40.0L, Lymphocytes (%) (Auto) 40.2, Monocytes (%) (Auto) 6.6, Eosinophils (%) (Auto) 11.6H, Basophils (%) (Auto) 1.6, Reticulocyte Count [Pending], Sodium Level 140 , Potassium Level 5.2H, Chloride Level 98, Carbon Dioxide Level 36H, Anion Gap 6 , Blood Urea Nitrogen 15, Creatinine 0.7, Estimat Glomerular Filtration Rate > 60, Glucose Level 98, Calcium Level 9.4, Direct Bilirubin 0.2 Height (Feet): 5 Height (Inches): 7.00 Weight (Pounds): 150 Objective General Appearance: no apparent distress, alert EENT: PERRL/EOMI, normal ENT inspection Neck: non-tender, normal alignment Cardiovascular: normal rate, regular rhythm Respiratory/Chest: decreased breath sounds Abdomen: non tender, soft Edema: no edema noted Arm (L), no edema noted Arm (R), no edema noted Leg (L), no edema noted Leg (R), no edema noted Pedal (L), no edema noted Pedal (R), no edema noted Generalized Neurologic: alert, oriented x 3 Skin: warm/dry ANTIONE PHILLIPS. PCali Sep 14, 2016 08:16
--- NOTE | 2016-09-14 08:19 | General Progress Note ---
Assessment/Plan Assessment/Plan ASSESSMENT: 1. Sickle cell crisis with no evidence of acute chest syndrome. Hgb >7 goal, patient continues to be in pain at this time, has been seen by pain service, adjusting meds as needed. Is on a incentive spirometry. Retic is at 3. Bili is nml. He has a hx of noncompliance, has extremely high opiod tolerance. Being seen by pain service. Also says will come in next week for appt to see me 2. Thrombocytosis - due to reactive process 3. Leukocytosis due to reactive process from anemia 4 Avascular Necrosis of the hip 5. Pain from the sickle cell crisis 6. Pneumonia - being treated on abx RECOMMENDATIONS: - Monitor cell count - Continue hydroxyurea 500mg bid as well as folic acid - Check retic and bili levels daily - Hgb S percentage is pending - Pain management recs - DVT Prophylaxis with SCDs - Out patient Hematology follow up ( next wk, however patient with hx noncompliance) - staff and Dr. Mckenna Thank you, Marco Dutton MD Subjective Constitutional: Reports: no symptoms HEENT: Reports: mouth pain Cardiovascular: Reports: no symptoms Respiratory: Reports: no symptoms Gastrointestinal/Abdominal: Reports: poor appetite Genitourinary: Reports: no symptoms 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: Reports: no symptoms Endocrine: Reports: no symptoms Hematologic/Lymphatic: Reports: anemia Allergies: Coded Allergies: AMPICILLIN (Verified Allergy, Unknown, 08/03/16) KETOROLAC (Verified Allergy, Unknown, 08/03/16) MORPHINE (Verified Allergy, Unknown, 08/03/16) PHENYTOIN (Verified Allergy, Unknown, 08/03/16) Subjective stable, no events, afebrile, is without chest pain Objective Last 24 Hour Vital Signs Date Time Temp Pulse Resp B/P Pulse Ox O2 Delivery O2 Flow Rate FiO2 09/14/16 07:13 99 Nasal Cannula 6.0 09/14/16 07:13 Nasal Cannula 6.0 09/14/16 04:00 96.8 76 18 146/104 93 Nasal Cannula 4.0 09/14/16 00:00 97.5 80 18 122/70 93 Nasal Cannula 4.0 09/13/16 20:00 98.1 82 15 154/109 98 Nasal Cannula 09/13/16 19:44 Nasal Cannula 6.0 09/13/16 19:43 100 Nasal Cannula 6.0 09/13/16 16:00 98.2 87 16 135/86 92 Room Air 09/13/16 11:59 97.7 88 20 145/95 97 Nasal Cannula 2.0 Intake and Output 09/13/16 09/14/16 19:00 07:00 Intake Total 560 ml 1010 ml Output Total 700 ml 3200 ml Balance -140 ml -2190 ml Intake Oral 1010 ml IV Total 560 ml Output Urine Total 700 ml 3200 ml # Voids 3 3 Laboratory Tests 09/14/16 05:30: White Blood Count 14.7H, Red Blood Count 2.95L, Hemoglobin 8.9L, Hematocrit 27.4L, Mean Corpuscular Volume 93, Mean Corpuscular Hemoglobin 30.2, Mean Corpuscular Hemoglobin Concent 32.5, Red Cell Distribution Width 19.3H, Platelet Count 310, Mean Platelet Volume 7.3, Neutrophils (%) (Auto) 40.0L, Lymphocytes (%) (Auto) 40.2, Monocytes (%) (Auto) 6.6, Eosinophils (%) (Auto) 11.6H, Basophils (%) (Auto) 1.6, Reticulocyte Count [Pending], Sodium Level 140 , Potassium Level 5.2H, Chloride Level 98, Carbon Dioxide Level 36H, Anion Gap 6 , Blood Urea Nitrogen 15, Creatinine 0.7, Estimat Glomerular Filtration Rate > 60, Glucose Level 98, Calcium Level 9.4, Direct Bilirubin 0.2 Height (Feet): 5 Height (Inches): 7.00 Weight (Pounds): 150 General Appearance: no apparent distress EENT: normal ENT inspection Neck: supple Cardiovascular: regular rhythm Respiratory/Chest: lungs clear Abdomen: no organomegaly Extremities: non-tender Edema: 1+ Leg (L), 1+ Leg (R) Edema: mild edema Neurologic: alert Skin: warm/dry Marco Dutton Sep 14, 2016 08:19
[2016-09-14 08:42] LABS: FETAL HEMOGLOBIN 0.6 % (0.0-2.0); HEMOGLOBIN A 60.9 % (94.0-98.0); HEMOGLOBIN A2 3.8 % (0.7-3.1); HGB S 34.7 % (0.0)
[2016-09-14] MEDS: Hydroxyurea 500mg cap ORAL SCH ×2 (09:39→17:43)
[2016-09-14 12:15] VITALS: BP 141/91
--- NOTE | 2016-09-14 15:18 | Pulmonology Progress Note ---
Assessment/Plan Problems: (1) Purulent bronchitis (2) Interstitial lung disease (3) Sickle cell pain crisis Assessment/Plan Iv fluids f/u LDH, bilirubin Nasal cannula check cultures the changes of the lung are chronic no sputum yet, continue antibiotics adjust pain meds Subjective Interval Events: later note, 09/13, slightly lethargic, less cough, no sob Allergies: Coded Allergies: AMPICILLIN (Verified Allergy, Unknown, 08/03/16) KETOROLAC (Verified Allergy, Unknown, 08/03/16) MORPHINE (Verified Allergy, Unknown, 08/03/16) PHENYTOIN (Verified Allergy, Unknown, 08/03/16) Objective Last 24 Hour Vital Signs Date Time Temp Pulse Resp B/P Pulse Ox O2 Delivery O2 Flow Rate FiO2 09/14/16 12:57 Nasal Cannula 4.0 09/14/16 12:15 98.8 79 21 141/91 97 09/14/16 10:10 97.7 09/14/16 10:10 97.7 09/14/16 09:00 Nasal Cannula 4.0 09/14/16 08:15 97.7 80 19 137/92 96 09/14/16 07:13 99 Nasal Cannula 6.0 09/14/16 07:13 Nasal Cannula 6.0 09/14/16 04:00 96.8 76 18 146/104 93 Nasal Cannula 4.0 09/14/16 00:00 97.5 80 18 122/70 93 Nasal Cannula 4.0 09/13/16 20:00 98.1 82 15 154/109 98 Nasal Cannula 09/13/16 19:44 Nasal Cannula 6.0 09/13/16 19:43 100 Nasal Cannula 6.0 09/13/16 16:00 98.2 87 16 135/86 92 Room Air Intake and Output 09/13/16 09/14/16 19:00 07:00 Intake Total 560 ml 1010 ml Output Total 700 ml 3200 ml Balance -140 ml -2190 ml Intake Oral 1010 ml IV Total 560 ml Output Urine Total 700 ml 3200 ml # Voids 3 3 Objective General Appearance: WD/WN HEENT: normocephalic, atraumatic, PERRL Respiratory/Chest: lungs clear Breasts: no masses Cardiovascular: normal peripheral pulses Abdomen: normal bowel sounds, soft, non tender Genitourinary: normal external genitalia Extremities: no clubbing 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: 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, no motor/sensory deficits Laboratory Tests 09/14/16 05:30: White Blood Count 14.7H, Red Blood Count 2.95L, Hemoglobin 8.9L, Hematocrit 27.4L, Mean Corpuscular Volume 93, Mean Corpuscular Hemoglobin 30.2, Mean Corpuscular Hemoglobin Concent 32.5, Red Cell Distribution Width 19.3H, Platelet Count 310, Mean Platelet Volume 7.3, Neutrophils (%) (Auto) 40.0L, Lymphocytes (%) (Auto) 40.2, Monocytes (%) (Auto) 6.6, Eosinophils (%) (Auto) 11.6H, Basophils (%) (Auto) 1.6, Reticulocyte Count 2.7H, Sodium Level 140, Potassium Level 5.2H, Chloride Level 98, Carbon Dioxide Level 36H, Anion Gap 6, Blood Urea Nitrogen 15, Creatinine 0.7, Estimat Glomerular Filtration Rate > 60 , Glucose Level 98, Calcium Level 9.4, Direct Bilirubin 0.2 Current Medications Medications (Trade) Dose Ordered Sig/Anthony Route PRN Reason Start Time Stop Time Status Last Admin Dose Admin Azithromycin 500 mg/Dextrose 275 ml @ 275 mls/hr Q24HRS IV 09/11/16 16:00 09/15/16 16:01 09/13/16 16:44 Cefepime HCl 1 gm/ Dextrose 55 ml @ 110 mls/hr EVERY 8 HOURS IVPB 09/11/16 22:00 09/18/16 21:59 09/14/16 13:39 Dextrose (Dextrose 50%) STAT PRN IV Hypoglycemia 09/11/16 16:00 10/11/16 15:59 Diphenhydramine HCl (Benadryl) 50 mg Q4H PRN IVP Itching 09/11/16 18:00 10/11/16 17:59 09/14/16 13:38 Folic Acid (Folate) 1 mg DAILY ORAL 09/12/16 09:00 10/12/16 08:59 09/14/16 09:39 Gabapentin (Neurontin) 600 mg THREE TIMES A DAY ORAL 09/11/16 18:00 10/11/16 17:59 09/14/16 13:38 Hydromorphone HCl (Dilaudid) 1 mg Q3H PRN IVP Severe Breakthru Pain (>7) 09/13/16 09:00 09/20/16 08:59 Hydromorphone HCl (Dilaudid) 2 mg Q4HR PRN IVP Severe Pain (Pain Scale 7-10) 09/11/16 17:00 09/18/16 16:59 09/14/16 13:38 Hydroxyurea (Hydrea) 500 mg TWICE A DAY ORAL 09/11/16 18:00 09/16/16 17:59 09/14/16 09:39 Methadone HCl (Methadone HCl) 50 mg Q6HR ORAL 09/12/16 18:00 09/19/16 17:59 09/14/16 12:12 Ondansetron HCl (Zofran) 4 mg EVERY 4 HOURS PRN IVP Nausea & Vomiting 09/11/16 17:00 10/11/16 16:59 Sodium Chloride (Sodium Chloride 1000ml bag) 1,000 ml @ 150 mls/hr Q6H40M IVLG 09/11/16 16:00 10/11/16 15:59 09/14/16 11:17 Zolpidem Tartrate (Ambien) 5 mg QHS PRN ORAL Insomnia 09/13/16 21:00 10/13/16 20:59 KENNEDY MOORE Sep 14, 2016 15:18
--- NOTE | 2016-09-14 15:40 | General Progress Note ---
Assessment/Plan Problem List: (1) Sickle cell pain crisis ICD Codes: D57.00 - Hb-SS disease with crisis, unspecified SNOMED: 099341254 (2) Interstitial lung disease Assessment & Plan: likely 2/2 sickle cell disease per pulm ICD Codes: J84.9 - Interstitial pulmonary disease, unspecified SNOMED: 22676631, 556576610 (3) Pneumonia ICD Codes: J18.9 - Pneumonia, unspecified organism SNOMED: 300276320 Qualifiers: Qualified Codes: J18.9 - Pneumonia, unspecified organism (4) Intractable pain ICD Codes: R52 - Pain, unspecified SNOMED: 09259484 (5) Pulmonary HTN Assessment & Plan: Severe per TTE. 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 SNOMED: 78935374 Assessment/Plan - Appreciate hematology, pulmonology, and pain mgmt rec's - Cont abx for possible pneumonia: cefepime and azithro (09/10-) - Monitor cell counts - Continue hydroxyurea 500mg bid - Continue Folic acid - IVFs - Pain control, bowel regimen, supportive care - s/p 1U pRBC on 09/13/16 DVT Prophylaxis: SCD Code Status: Full Hospital Classification Declaration: Based on this initial evaluation, and depending on the patient's clinical course, I anticipate that this patient will require hospitalization for 1-2 days for sickle cell crisis, and close respiratory/hemodynamic monitoring. Disposition: Once the patient is stable to leave the hospital, I anticipate the patient will likely be discharged to the following environment: home vs home w/ hh I spent 40 minutes on this patient's case, and 22 minutes were dedicated to counseling and/or care coordination. Discussed with patient/family, nursing staff, SW/CM, pulm, heme regarding clinical status, treatment course, and disposition planning. Time of note may not reflect time of encounter. Subjective Date patient seen: Sep 14, 2016 Time patient seen: 15:40 ROS Limited/Unobtainable: No Constitutional: Reports: no symptoms HEENT: Reports: no symptoms Cardiovascular: Reports: no symptoms Respiratory: Reports: no symptoms Gastrointestinal/Abdominal: Reports: no symptoms Genitourinary: Reports: no symptoms 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: Reports: no symptoms Endocrine: Reports: no symptoms Hematologic/Lymphatic: Reports: no symptoms Allergies: Coded Allergies: AMPICILLIN (Verified Allergy, Unknown, 08/03/16) KETOROLAC (Verified Allergy, Unknown, 08/03/16) MORPHINE (Verified Allergy, Unknown, 08/03/16) PHENYTOIN (Verified Allergy, Unknown, 08/03/16) All Systems: reviewed and negative except above Subjective s/p 1U pRBC yesterday Pain slightly improved overall Cough improving SOB improving Objective Last 24 Hour Vital Signs Date Time Temp Pulse Resp B/P Pulse Ox O2 Delivery O2 Flow Rate FiO2 09/14/16 12:57 Nasal Cannula 4.0 09/14/16 12:15 98.8 79 21 141/91 97 09/14/16 10:10 97.7 09/14/16 10:10 97.7 09/14/16 09:00 Nasal Cannula 4.0 09/14/16 08:15 97.7 80 19 137/92 96 09/14/16 07:13 99 Nasal Cannula 6.0 09/14/16 07:13 Nasal Cannula 6.0 09/14/16 04:00 96.8 76 18 146/104 93 Nasal Cannula 4.0 09/14/16 00:00 97.5 80 18 122/70 93 Nasal Cannula 4.0 09/13/16 20:00 98.1 82 15 154/109 98 Nasal Cannula 09/13/16 19:44 Nasal Cannula 6.0 09/13/16 19:43 100 Nasal Cannula 6.0 09/13/16 16:00 98.2 87 16 135/86 92 Room Air Intake and Output 09/13/16 09/14/16 19:00 07:00 Intake Total 560 ml 1010 ml Output Total 700 ml 3200 ml Balance -140 ml -2190 ml Intake Oral 1010 ml IV Total 560 ml Output Urine Total 700 ml 3200 ml # Voids 3 3 Laboratory Tests 09/14/16 05:30: White Blood Count 14.7H, Red Blood Count 2.95L, Hemoglobin 8.9L, Hematocrit 27.4L, Mean Corpuscular Volume 93, Mean Corpuscular Hemoglobin 30.2, Mean Corpuscular Hemoglobin Concent 32.5, Red Cell Distribution Width 19.3H, Platelet Count 310, Mean Platelet Volume 7.3, Neutrophils (%) (Auto) 40.0L, Lymphocytes (%) (Auto) 40.2, Monocytes (%) (Auto) 6.6, Eosinophils (%) (Auto) 11.6H, Basophils (%) (Auto) 1.6, Reticulocyte Count 2.7H, Sodium Level 140, Potassium Level 5.2H, Chloride Level 98, Carbon Dioxide Level 36H, Anion Gap 6, Blood Urea Nitrogen 15, Creatinine 0.7, Estimat Glomerular Filtration Rate > 60 , Glucose Level 98, Calcium Level 9.4, Direct Bilirubin 0.2 Height (Feet): 5 Height (Inches): 7.00 Weight (Pounds): 150 Objective General: alert, cooperative, no distress, appears stated age Head: normocephalic, without obvious abnormality, atraumatic Eyes: conjunctivae/corneas clear. PERRL, EOM's intact Throat: lips, mucosa, and tongue normal. MMM Neck: supple, symmetrical, trachea midline, and no JVD Lungs: +rhonchi b/l Heart: regular rate and rhythm, S1, S2 normal, no murmur, click, rub or gallop Abdomen: soft, non-tender, non-distended, bowel sounds normal; no masses or organomegaly Extremities: extremities normal, atraumatic, no cyanosis or edema Pulses: 2+ and symmetric Skin: skin color, texture, turgor normal; no rashes or lesions Neurologic: grossly normal, no focal deficits Jerri Samaniego M.D. Sep 14, 2016 15:40
[2016-09-14 16:00] VITALS: BP 132/85
[2016-09-14] MEDS: Azithromycin 500 MG in D5W 275 ML IV SCH (17:25)
[2016-09-14 20:00] VITALS: BP 127/74
[2016-09-15] VITALS: BP 150/99
[2016-09-15] MEDS: DiphenhydrAMINE 50mg/ml Inj IVP PRN ×4 (01:59→14:43)
[2016-09-15 04:00] VITALS: BP 139/101
[2016-09-15] MEDS: Cefepime HCl 1 GM in D5W 55 ML IVPB SCH ×2 (06:27→13:47)
[2016-09-15 07:15] LABS: BASOPHILS % (AUTO) 1.2 % (0.0-2.0); EOSINOPHILS % (AUTO) 12.3 % (0.0-3.0); LYMPHOCYTES % (AUTO) 31.7 % (20.0-45.0); MEAN CORPUSCULAR HEMOGLOBIN 30.1 PG (27.0-31.0); MEAN CORPUSCULAR HGB CONC 33.1 G/DL (32.0-36.0); MEAN CORPUSCULAR VOLUME 91 FL (80-99); MEAN PLATELET VOLUME 8.6 FL (6.5-10.1); MONOCYTES % (AUTO) 7.4 % (1.0-10.0); NEUTROPHILS % (AUTO) 47.4 % (45.0-75.0); PLATELET COUNT 306 K/UL (150-450); RED BLOOD COUNT 3.02 M/UL (4.70-6.10); RED CELL DISTRIBUTION WIDTH 18.8 % (11.6-14.8); WHITE BLOOD COUNT 13.8 K/UL (4.8-10.8)
[2016-09-15 07:16] LABS: ANION GAP 8 (5-15); CALCIUM 9.4 mg/dL (8.6-10.2); CARBON DIOXIDE 34 mEQ/L (20-30); CHLORIDE 99 mEQ/L (98-107); CREATININE 0.8 mg/dL (0.7-1.2); GLOMERULAR FILTRATION RATE > 60 mL/min (>60); HEMOLYSIS 10; POTASSIUM 4.7 mEQ/L (3.4-4.9); SODIUM 141 mEQ/L (135-145)
[2016-09-15 07:45] VITALS: BP 131/95
--- NOTE | 2016-09-15 08:01 | Cardiology Report ---
APPROVED REPORT EXAM: Two-dimensional and M-mode echocardiogram with Doppler and color Doppler. INDICATION Left ventricular function M-Mode DIMENSIONS IVSd0.7 (0.7-1.1cm)Left Atrium (MM)3.5 (1.6-4.0cm) LVDd4.6 (3.5-5.6cm)Aortic Root3.4 (2.0-3.7cm) PWd0.7 (0.7-1.1cm)Aortic Cusp Exc.2.0 (1.5-2.0cm) LVDs3.4 (2.5-4.0cm) PWs0.6 cm Normal left ventricular chamber size, systolic function and wall motion. Left ventricular ejection fraction estimated to be 55-60%. No evidence of left ventricular hypertrophy. Small posterior pericardial effusion. Left cardiac chamber sizes are within normal limits. Moderate right atrial and right ventricular enlargement by 2D. Focal aortic valve sclerosis with adequate cusp excursion Thickened mitral valve leaflets with normal excursion. Mitral annulus and aortic root calcification. Pulmonic valve not well visualized. Normal tricuspid valve structure. IVC is normal in size with physiologic collapse. A color flow and spectral Doppler study was performed and revealed: No aortic regurgitation. Trace mitral regurgitation. Mitral inflow velocities indicates possible pseudo normalization pattern implying significant left ventricular diastolic dysfunction. Moderate tricuspid regurgitation. Tricuspid systolic velocities suggests peak right ventricular systolic pressure of 57 mmHg Consistent with severe pulmonary hypertension.
[2016-09-15] MEDS: Hydroxyurea 500mg cap ORAL SCH (08:27)
--- NOTE | 2016-09-15 08:27 | General Progress Note ---
Assessment/Plan Assessment/Plan (1) Intractable pain ICD Codes: R52 - Pain, unspecified SNOMED: 83880709 (2) Avascular necrosis of femur head, left ICD Codes: M87.052 - Idiopathic aseptic necrosis of left femur SNOMED: 130689710 (3) Sickle cell crisis ICD Codes: D57.00 - Hb-SS disease with crisis, unspecified SNOMED: 233561054 (4) Avascular necrosis of femur head, right ICD Codes: M87.051 - Idiopathic aseptic necrosis of right femur SNOMED: 275302360 Assessment/Plan Patient will be continue methadone, Dilaudid and Ambien A RX was written in anticipation for discharge and he was advised to consult with pain specialist when he discharged. Pt was d/w Dr. Perera and he concurred. Subjective Date patient seen: Sep 15, 2016 Time patient seen: 07:15 - am Allergies: Coded Allergies: AMPICILLIN (Verified Allergy, Unknown, 08/03/16) KETOROLAC (Verified Allergy, Unknown, 08/03/16) MORPHINE (Verified Allergy, Unknown, 08/03/16) PHENYTOIN (Verified Allergy, Unknown, 08/03/16) Subjective Constitutional: Reports: chills HEENT: Denies: blurred vision, double vision, ear discharge, ear pain, eye pain , mouth pain, mouth swelling, nose congestion, nose pain, tearing, throat pain, throat swelling Cardiovascular: Denies: chest pain, edema, irregular heart rate, lightheadedness, palpitations, syncope Respiratory: Denies: SOB at rest, SOB with excertion, cough, orthopnea, shortness of breath, sputum, stridor, wheezing Gastrointestinal/Abdominal: Denies: abdomen distended, abdominal pain, black stools, blood in stool, constipated, diarrhea, difficulty swallowing, nausea, poor appetite, poor fluid intake, rectal bleeding, tarry stools, vomiting Genitourinary: Denies: burning, discharge, flank pain, frequency, hematuria, incontinence, pain, urgency 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: Denies: anxiety, depressed, emotional problems, headache, numbness, paresthesia, pre-existing deficit, seizure, tingling, tremors, weakness Endocrine: Reports: other, Denies: excessive sweating, flushing, increased hunger, increased thirst, increased urine, intolerance to cold, intolerance to heat, unexplained weight gain, unexplained weight loss Hematologic/Lymphatic: Denies: anemia, easy bleeding, easy bruising Subjective He continues to c/o pain throughout is body mostly in his back and joints. The pain is controlled on the methadone and Dilaudid. He will be discharged as per production supv and a RX was written in anticipation for discharge. Patient was advised to consult with a pain specialist when discharged. I explained to patient that if he chooses to f/u with Dr. Perera his medications will be tapered down. Objective Last 24 Hour Vital Signs Date Time Temp Pulse Resp B/P Pulse Ox O2 Delivery O2 Flow Rate FiO2 09/15/16 07:45 98.1 80 20 131/95 95 Room Air 09/15/16 04:00 97.7 78 18 139/101 97 Room Air 09/15/16 00:00 97.9 82 18 150/99 100 Nasal Cannula 5.0 09/14/16 20:00 97.0 71 17 127/74 100 Room Air 09/14/16 19:30 Nasal Cannula 5.0 40 09/14/16 19:30 99 Nasal Cannula 5.0 40 09/14/16 16:00 97.5 79 18 132/85 92 Room Air 09/14/16 14:08 98.8 09/14/16 14:08 98.8 09/14/16 12:57 Nasal Cannula 4.0 09/14/16 12:15 98.8 79 21 141/91 97 09/14/16 09:00 Nasal Cannula 4.0 Intake and Output 09/14/16 09/15/16 19:00 07:00 Intake Total 240 ml 1480 ml Output Total 1500 ml Balance 240 ml -20 ml Intake Oral 240 ml 320 ml IV Total 1160 ml Output Urine Total 1500 ml # Voids 4 # Bowel Movements 1 Laboratory Tests 09/15/16 06:20: White Blood Count 13.8H, Red Blood Count 3.02L, Hemoglobin 9.1L, Hematocrit 27.5L, Mean Corpuscular Volume 91, Mean Corpuscular Hemoglobin 30.1, Mean Corpuscular Hemoglobin Concent 33.1, Red Cell Distribution Width 18.8H, Platelet Count 306, Mean Platelet Volume 8.6, Neutrophils (%) (Auto) 47.4, Lymphocytes (%) (Auto) 31.7, Monocytes (%) (Auto) 7.4, Eosinophils (%) (Auto) 12.3H, Basophils (%) (Auto) 1.2, Reticulocyte Count [Pending], Sodium Level 141 , Potassium Level 4.7, Chloride Level 99, Carbon Dioxide Level 34H, Anion Gap 8 , Blood Urea Nitrogen 18, Creatinine 0.8, Estimat Glomerular Filtration Rate > 60, Glucose Level 113H, Calcium Level 9.4, Direct Bilirubin 0.2 Height (Feet): 5 Height (Inches): 7.00 Weight (Pounds): 150 Objective General Appearance: no apparent distress, alert EENT: PERRL/EOMI, normal ENT inspection Neck: non-tender, normal alignment Cardiovascular: normal rate, regular rhythm Respiratory/Chest: decreased breath sounds Abdomen: non tender, soft Edema: no edema noted Arm (L), no edema noted Arm (R), no edema noted Leg (L), no edema noted Leg (R), no edema noted Pedal (L), no edema noted Pedal (R), no edema noted Generalized Neurologic: alert, oriented x 3 Skin: warm/dry ANTIONE PHILLIPS Sep 15, 2016 08:27
--- NOTE | 2016-09-15 08:29 | Cardiology Report ---
APPROVED REPORT EKG Measurement Heart [id number] Normal sinus rhythm RBBB Abnormal ECG
[2016-09-15] MEDS: HYDROmorphone 1mg/ml Carpuject IVP PRN ×2 (10:29→14:44)
[2016-09-15 11:33] VITALS: BP 129/83
--- NOTE | 2016-09-15 12:23 | General Progress Note ---
Assessment/Plan Assessment/Plan ASSESSMENT: 1. Sickle cell crisis with no evidence of acute chest syndrome. Hgb >7 goal, patient continues to be in pain at this time, has been seen by pain service, adjusting meds as needed. Is on a incentive spirometry. Retic is at 2-3. Mary is nml. He has a hx of noncompliance, has extremely high opiod tolerance. Being seen by pain service. Also says will come in next week for appt to see me ( however, has a hx of noncompliance) 2. Thrombocytosis - due to reactive process 3. Leukocytosis due to reactive process from anemia 4 Avascular Necrosis of the hip 5. Pain from the sickle cell crisis 6. Pneumonia - being treated on abx RECOMMENDATIONS: - Monitor cell count - Continue hydroxyurea 500mg bid as well as folic acid - Check retic as needed - Pain management recs - DVT Prophylaxis with SCDs - Out patient Hematology follow up ( next wk, however patient with hx noncompliance) - staff Thank you, Marco Dutton MD Subjective Constitutional: Reports: no symptoms HEENT: Reports: no symptoms Cardiovascular: Reports: no symptoms Respiratory: Reports: no symptoms Gastrointestinal/Abdominal: Reports: nausea Genitourinary: Reports: no symptoms 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: Reports: no symptoms Endocrine: Reports: no symptoms Hematologic/Lymphatic: Reports: anemia Allergies: Coded Allergies: AMPICILLIN (Verified Allergy, Unknown, 08/03/16) KETOROLAC (Verified Allergy, Unknown, 08/03/16) MORPHINE (Verified Allergy, Unknown, 08/03/16) PHENYTOIN (Verified Allergy, Unknown, 08/03/16) Subjective stable, no events, afebrile, pain same Objective Last 24 Hour Vital Signs Date Time Temp Pulse Resp B/P Pulse Ox O2 Delivery O2 Flow Rate FiO2 09/15/16 11:33 98.1 85 15 129/83 94 Nasal Cannula 09/15/16 08:15 Nasal Cannula 5.0 40 09/15/16 08:15 99 Nasal Cannula 5.0 40 09/15/16 07:45 98.1 80 20 131/95 95 Room Air 09/15/16 04:00 97.7 78 18 139/101 97 Room Air 09/15/16 00:00 97.9 82 18 150/99 100 Nasal Cannula 5.0 09/14/16 20:00 97.0 71 17 127/74 100 Room Air 09/14/16 19:30 Nasal Cannula 5.0 40 09/14/16 19:30 99 Nasal Cannula 5.0 40 09/14/16 16:00 97.5 79 18 132/85 92 Room Air 09/14/16 14:08 98.8 09/14/16 14:08 98.8 09/14/16 12:57 Nasal Cannula 4.0 Intake and Output 09/14/16 09/15/16 19:00 07:00 Intake Total 240 ml 1630 ml Output Total 1500 ml Balance 240 ml 130 ml Intake Oral 240 ml 320 ml IV Total 1310 ml Output Urine Total 1500 ml # Voids 4 # Bowel Movements 1 Laboratory Tests 09/15/16 06:20: White Blood Count 13.8H, Red Blood Count 3.02L, Hemoglobin 9.1L, Hematocrit 27.5L, Mean Corpuscular Volume 91, Mean Corpuscular Hemoglobin 30.1, Mean Corpuscular Hemoglobin Concent 33.1, Red Cell Distribution Width 18.8H, Platelet Count 306, Mean Platelet Volume 8.6, Neutrophils (%) (Auto) 47.4, Lymphocytes (%) (Auto) 31.7, Monocytes (%) (Auto) 7.4, Eosinophils (%) (Auto) 12.3H, Basophils (%) (Auto) 1.2, Reticulocyte Count 3.7H, Sodium Level 141, Potassium Level 4.7, Chloride Level 99, Carbon Dioxide Level 34H, Anion Gap 8, Blood Urea Nitrogen 18, Creatinine 0.8, Estimat Glomerular Filtration Rate > 60 , Glucose Level 113H, Calcium Level 9.4, Direct Bilirubin 0.2 Height (Feet): 5 Height (Inches): 7.00 Weight (Pounds): 150 General Appearance: no apparent distress EENT: TMs normal Neck: supple Cardiovascular: regular rhythm Respiratory/Chest: lungs clear Abdomen: no mass Extremities: non-tender Edema: 1+ Leg (L), 1+ Leg (R) Edema: mild edema Neurologic: alert Skin: warm/dry Marco Dutton Sep 15, 2016 12:23
--- NOTE | 2016-09-15 13:12 | Discharge Summary ---
Discharge Summary Hospital Course Date of Admission Sep 09, 2016 at 17:25 Date of Discharge 09/15/16 Admitting Diagnosis SICKLE CELL CRISIS Reason for Hospitalization: Sickle cell crisis HPI 40 y/o male with pmh of sickle cell anemia, b/l hip avascular necrosis, chronic pain, opioid dependence who presents with increased pain including chest pain and SOB. Pt c/o chest pain or shortness of breath, leg pain x4 days. Pt states he is "having a crisis". Pain is sharp. 10 out of 10. Nonradiating. No other aggravating or leading factors. Not improved with Dilaudid and methadone at home. Denies fevers or chills. Notes cough productive of yellowish sputum. Patient is on home oxygen. Patient states he has had pain and swelling to both legs. Has history of DVT in the past. Currently not on anticoagulation. Denies any other associated symptoms In ED, pt had CTA chest which was negative PE. There was concern for PNA, and pt was started on cefepime and azithromycin. Consultations Pulmonology, Pain mgmt, Hematology Hospital Course Pt was admitted and treated for sickle cell crisis with IVFs, pain meds, O2. She was also treated with course of antibiotics for pneumonia. Pulmonology evaluated patient and stated pt with chronic interstitial changes on CT chest which is likely secondary to sickle cell disease. Pt required 1 unit pRBC transfusion for hgb 7 w/ good response. Once pain controlled, pt was discharged home. Discharge Discharge Disposition Patient was discharged to Home (01) Discharge Diagnoses: (1) Sickle cell crisis (2) Pneumonia (3) Interstitial lung disease (4) Pulmonary HTN (5) Intractable pain Discharge Instructions Discharge Instructions Follow up with: PCP Call MD/Return to Hospital if: fevers/chills, chest pain, SOB Diet: regular Activity: resume normal activities Jerri Samaniego M.D. Sep 15, 2016 13:12
[2016-09-15] MEDS ORDERED: Heplock Flush 100 units/ml 3 ml syr INJ ONE (14:00)
[2016-09-15] MEDS ORDERED: DILAUDID1 MG/1 ML PO (14:58)
[2016-09-15] MEDS ORDERED: DILAUDID4 MG ORAL (14:59)
[2016-09-15] MEDS ORDERED: METHADONE HCL10 MG PO (15:01)
[2016-09-15 15:56] VITALS: BP 141/83
--- NOTE | 2016-09-16 13:45 | Discharge Summary ---
Discharge Summary Hospital Course Date of Admission Sep 09, 2016 at 17:25 Date of Discharge Sep 15, 2016 at 17:43 Admitting Diagnosis SICKLE CELL CRISIS ALETHEA Barrett is a 40 year old male who was admitted on Sep 09, 2016 at 17:25 for Sickle Cell Crisis Hospital Course [id number] Discharge Discharge Disposition Patient was discharged to Home (01) Discharge Diagnoses: Brooklynn Borja NP Sep 16, 2016 13:45
--- NOTE | 2016-09-17 02:28 | Discharge Summary 2 SIG ---
DATE OF ADMISSION: 09/09/2016 DATE OF DISCHARGE: 09/15/2016 CONSULTANTS: 1. Hanna Mckenna M.D. 2. Oleg Perera M.D. 3. Marco Dutton M.D. BRIEF HOSPITAL COURSE: The patient is a 40-year-old male with a history of sickle cell anemia, bilateral hip avascular necrosis, chronic pain and opioid dependence, presented with increased pain and chest pain with shortness of breath and leg pain for 14 days. The pain is 10/10. Not improved with Dilaudid and methadone at home. He also complained of productive cough with yellowish sputum and has been on home O2. He has a history of DVT in the past and currently not on anticoagulation. He complained of pain and swelling to both legs. CT of the chest done at ED was negative for PE. There was concern for pneumonia. During the hospital stay, he was seen by a budget specialist Dr. Mckenna, Hematology Dr. Dutton and pain management Dr. Perera. Reticulocyte count is 2 to 3. Bilirubin is normal. He was given hydroxyurea 500 mg b.i.d. as well as folic acid and was given pain management consisting of methadone and Dilaudid. He was given IV cefepime and azithromycin for possible pneumonia. Hemoglobin went down to 7 and received one unit packed RBC blood transfusion. CT changes in lung are chronic. The patient was eventually discharged home. FINAL DIAGNOSES: 1. Sickle cell pain crisis. 2. Interstitial lung disease likely secondary to sickle cell. 3. Pneumonia. 4. Intractable back pain. 5. Pulmonary hypertension. 6. Acute anemia requiring transfusion. Jerri Samaniego M.D. I have been assigned to dictate discharge summary on this account and I was not involved in the patient's management. Brooklynn Borja N.P. DR: KONSTANTIN JOB#: [id number] CC: LELAND
== END 2016-09-15 17:43 | disposition home or self-care (01) | DRG 811 ==
LOC: EMR 15:27 → 2E 17:25 → EDBEDREQ 17:30 → 2E 09-10 00:45 → 4E 09-11 15:06
PROC: 30233N1 Transfusion of Nonautologous Red Blood Cells into Peripheral Vein, Percutaneous Approach (ICD-10-PCS; principal; 2016-09-13)
DX: D57.00 Hb-SS disease with crisis, unspecified (principal); J18.9 Pneumonia, unspecified organism; J84.9 Interstitial pulmonary disease, unspecified; M87.852 Other osteonecrosis, left femur; M87.851 Other osteonecrosis, right femur; F11.20 Opioid dependence, uncomplicated; Z88.6 Allergy status to analgesic agent; Z88.1 Allergy status to other antibiotic agents; Z88.8 Allergy status to other drugs, medicaments and biological substances; I27.2 Other secondary pulmonary hypertension; Z86.718 Personal history of other venous thrombosis and embolism; G89.29 Other chronic pain; M54.9 Dorsalgia, unspecified; J41.1 Mucopurulent chronic bronchitis; D47.3 Essential (hemorrhagic) thrombocythemia; D64.9 Anemia, unspecified
CPT/HCPCS: 36415; 71010; 71275; 80048; 80053; 82248; 82550; 82553; 82728; 83020; 83615; 83880; 84484; 85007; 85025; 85044; 86850; 86900; 86901; 86920; 87081; 93005; 93306; 93970; 94760

== ENCOUNTER 2016-09-22 15:42 | Emergency (ER) | payer MEDICARE, OTHER ==
[~2016-09-22] VITALS: Ht 180.3 cm; Wt 64.9 kg
[~2016-09-22 15:42] MED LIST changes: +DILAUDID1 MG/1 ML PO; +DILAUDID4 MG ORAL; +GABAPENTIN400 MG ORAL; +METHADONE HCL10 MG PO
[2016-09-22] MEDS ORDERED: Nitroglycerin 2% oint pkt TOPIC ONE (16:00)
[2016-09-22 16:16] VITALS: BP 148/94
[2016-09-22] MEDS ORDERED: NS 55ml IV ONE (16:26)
[2016-09-22] MEDS ORDERED: NS 1000ml 1,900 ML IVLG ONE (16:45)
[2016-09-22] MEDS ORDERED: HYDROmorphone 1 MG, DiphenhydrAMINE 25 MG in NS 55 ML IVPB ONE (17:15)
[2016-09-22] MEDS ORDERED: DiphenhydrAMINE 50mg/ml Inj ONE (17:27)
[2016-09-22] MEDS ORDERED: HYDROmorphone 1mg/ml Carpuject ONE (17:27)
[2016-09-22 17:28] LABS: BASOPHILS % (AUTO) 1.6 % (0.0-2.0); LYMPHOCYTES % (AUTO) 46.7 % (20.0-45.0); MEAN CORPUSCULAR HEMOGLOBIN 29.9 PG (27.0-31.0); MEAN CORPUSCULAR HGB CONC 33.1 G/DL (32.0-36.0); MEAN CORPUSCULAR VOLUME 90 FL (80-99); MEAN PLATELET VOLUME 6.5 FL (6.5-10.1); MONOCYTES % (AUTO) 3.6 % (1.0-10.0); PLATELET COUNT 390 K/UL (150-450); RED BLOOD COUNT 3.51 M/UL (4.70-6.10); RED CELL DISTRIBUTION WIDTH 18.6 % (11.6-14.8); WHITE BLOOD COUNT 14.7 K/UL (4.8-10.8)
[2016-09-22 17:41] LABS: INR 1.3 (0.9-1.1); PROTHROMBIN TIME 13.4 SEC (9.30-11.50)
[2016-09-22 17:45] LABS: TROPONIN I < 0.30 ng/mL (<=0.30)
[2016-09-22 17:46] LABS: ALANINE AMINOTRANSFERASE 26 U/L (3-41); ALBUMIN/GLOBULIN RATIO 1.6 (1.0-2.7); ANION GAP 20 (5-15); ASPARTATE AMINO TRANSFERASE 37 U/L (5-40); CALCIUM 10.8 mg/dL (8.6-10.2); CARBON DIOXIDE 23 mEQ/L (20-30); CHLORIDE 99 mEQ/L (98-107); CREATININE 0.9 mg/dL (0.7-1.2); GLOMERULAR FILTRATION RATE > 60 mL/min (>60); HEMOLYSIS 5; POTASSIUM 3.8 mEQ/L (3.4-4.9); SODIUM 142 mEQ/L (135-145); TOTAL PROTEIN 7.6 g/dL (6.6-8.7)
[2016-09-22 17:54] LABS: APPEARANCE,URINE CLEAR; KETONES,URINE NEGATIVE (NEGATIVE); LEUKOCYTE ESTERASE ,URINE 1+ (NEGATIVE); NITRITE,URINE NEGATIVE (NEGATIVE); PH,URINE 5 (4.5-8.0); PROTEIN,URINE 4+ (NEGATIVE); UROBILINOGEN,URINE NORMAL MG/DL (0.0-1.0)
[2016-09-22 17:57] LABS: CKMB 1.7 ng/mL (< 6.7)
[2016-09-22 18:10] LABS: BILIRUBIN,DIRECT 0.3 mg/dL (0.1-0.3)
[2016-09-22 18:23] VITALS: BP 143/91
[2016-09-22 18:30] LABS: AMORPHOUS SEDIMENT,UR FEW /LPF; BACTERIA,URINE MANY /HPF
[2016-09-22] MEDS ORDERED: HYDROmorphone 1mg/NS 50ml IVPB 50 ML IVPB ONE (20:15)
--- NOTE | 2016-09-22 20:28 | Emergency Room Report ---
History of Present Illness General Chief Complaint: Chest Pain Source: Patient Present Illness HPI This patient has a history of sickle cell disease. The patient is a frequent patient here at [facility]. The patient has a history of narcotic dependence and narcotic seeking behavior. The patient was recently admitted for a sickle cell crises. The patient states he is having a sickle cell crises and chest pain. He has no other complaints. Allergies: Coded Allergies: AMPICILLIN (Verified Allergy, Unknown, 08/03/16) KETOROLAC (Verified Allergy, Unknown, 08/03/16) MORPHINE (Verified Allergy, Unknown, 08/03/16) PHENYTOIN (Verified Allergy, Unknown, 08/03/16) Patient History Past Medical History: see triage record, HTN, COPD, seizures, other - SCD Social History: Reports: smoking, Denies: alcohol use, drug use Reviewed Nursing Documentation: PMH: Agreed, PSxH: Agreed Nursing Documentation-PMH Past Medical History: No History, Except For Hx Cardiac Problems: Yes - Sickle Cell Anemia Hx Asthma: Yes Hx COPD: Yes Hx Cancer: No Hx Gastrointestinal Problems: No Hx Neurological Problems: Yes Hx Seizures: Yes Review of Systems All Other Systems: negative except mentioned in HPI Physical Exam Vital Signs Date Time Temp Pulse Resp B/P Pulse Ox O2 Delivery O2 Flow Rate FiO2 09/22/16 15:51 99.1 114 25 148/94 98 Room Air Sp02 EP Interpretation: reviewed, normal General Appearance: no apparent distress, alert, GCS 15, non-toxic Head: normocephalic, atraumatic Eyes: bilateral eye PERRL, bilateral eye normal inspection ENT: hearing grossly normal, normal pharynx, no angioedema, normal voice Neck: full range of motion, supple/symm/no masses Respiratory: chest non-tender, lungs clear, normal breath sounds, speaking full sentences Cardiovascular #1: regular rate, rhythm, no edema Gastrointestinal: normal bowel sounds, non tender, soft, non-distended, no guarding, no rebound Rectal: deferred Musculoskeletal: back normal, gait/station normal, normal range of motion, non- tender Neurologic: alert, oriented x3, responsive, motor strength/tone normal, sensory intact, speech normal Psychiatric: judgement/insight normal, memory normal, mood/affect normal, no suicidal/homicidal ideation Skin: normal color, no rash, warm/dry, well hydrated Medical Decision Making Diagnostic Impression: Primary Impression: Sickle cell crisis Additional Impressions: Chest pain Abnormal EKG ER Course This patient has a history of sickle cell crisis and presents with chest pain. The patient EKG is changed from a recent EKG with ST segment depressions in leads V. 2, V3 and V4. Given the patient's history of sickle cell disease and new EKG changes, I felt this patient should be admitted for further cardiac evaluation. Initial labs to include CBC, CMP and troponin were noncontributory. The patient is admitted because of new EKG changes concerning for ischemia. Labs Test 09/22/16 17:18 09/22/16 17:45 White Blood Count 14.7 K/UL (4.8-10.8) Red Blood Count 3.51 M/UL (4.70-6.10) Hemoglobin 10.5 G/DL (14.2-18.0) Hematocrit 31.7 % (42.0-52.0) Mean Corpuscular Volume 90 FL (80-99) Mean Corpuscular Hemoglobin 29.9 PG (27.0-31.0) Mean Corpuscular Hemoglobin Concent 33.1 G/DL (32.0-36.0) Red Cell Distribution Width 18.6 % (11.6-14.8) Platelet Count 390 K/UL (150-450) Mean Platelet Volume 6.5 FL (6.5-10.1) Neutrophils (%) (Auto) 48.0 % (45.0-75.0) Lymphocytes (%) (Auto) 46.7 % (20.0-45.0) Monocytes (%) (Auto) 3.6 % (1.0-10.0) Eosinophils (%) (Auto) 0.0 % (0.0-3.0) Basophils (%) (Auto) 1.6 % (0.0-2.0) Prothrombin Time 13.4 SEC (9.30-11.50) Prothromb Time International Ratio 1.3 (0.9-1.1) Activated Partial Thromboplast Time 32 SEC (23-33) Sodium Level 142 mEQ/L (135-145) Potassium Level 3.8 mEQ/L (3.4-4.9) Chloride Level 99 mEQ/L (98-107) Carbon Dioxide Level 23 mEQ/L (20-30) Anion Gap 20 (5-15) Blood Urea Nitrogen 28 mg/dL (7-23) Creatinine 0.9 mg/dL (0.7-1.2) Estimat Glomerular Filtration Rate > 60 mL/min (>60) Glucose Level 132 mg/dL (74-106) Calcium Level 10.8 mg/dL (8.6-10.2) Total Bilirubin 1.5 mg/dL (0.0-1.2) Direct Bilirubin 0.3 mg/dL (0.1-0.3) Aspartate Amino Transf (AST/SGOT) 37 U/L (5-40) Alanine Aminotransferase (ALT/SGPT) 26 U/L (3-41) Alkaline Phosphatase 121 U/L (40-129) Total Creatine Kinase 35 U/L (38-174) Creatine Kinase MB 1.7 ng/mL (< 6.7) Creatine Kinase MB Relative Index 4.8 Troponin I < 0.30 ng/mL (<=0.30) Total Protein 7.6 g/dL (6.6-8.7) Albumin 4.7 g/dL (3.5-5.2) Globulin 2.9 g/dL Albumin/Globulin Ratio 1.6 (1.0-2.7) Urine Color Yellow Urine Appearance Clear Urine pH 5 (4.5-8.0) Urine Specific [place] 1.015 (1.005-1.035) Urine Protein 4+ (NEGATIVE) Urine Glucose (UA) Negative (NEGATIVE) Urine Ketones Negative (NEGATIVE) Urine Occult Blood 4+ (NEGATIVE) Urine Nitrite Negative (NEGATIVE) Urine Bilirubin Negative (NEGATIVE) Urine Urobilinogen Normal MG/DL (0.0-1.0) Urine Leukocyte Esterase 1+ (NEGATIVE) Urine RBC 10-15 /HPF (0 - 0) Urine WBC 5-10 /HPF (0 - 0) Urine Squamous Epithelial Cells None /LPF (NONE/OCC) Urine Amorphous Sediment Few /LPF (NONE) Urine Bacteria Many /HPF (NONE) Urine Opiates Screen Negative (NEGATIVE) Urine Barbiturates Screen Positive (NEGATIVE) Phencyclidine (PCP) Screen Negative (NEGATIVE) Urine Amphetamines Screen Negative (NEGATIVE) Urine Benzodiazepines Screen Negative (NEGATIVE) Urine Cocaine Screen Negative (NEGATIVE) Urine Marijuana (THC) Screen Negative (NEGATIVE) EKG Diagnostic Results Rate: tachycardiac Rhythm: NSR ST Segments: other Other Impression New ST depressions in V2, V3, V4 Rhythm Strip Diag. Results EP Interpretation: yes Rate: 100's Rhythm: no PVC's, no ectopy Other Impression tachycardia Chest X-Ray Diagnostic Results EP Interpretation: Yes Findings: no effusion, no pneumothorax Number of Views: 1 Other Impression Bilateral interstitial disease. Improved from previous. See official report. Last Vital Signs Date Time Temp Pulse Resp B/P Pulse Ox O2 Delivery O2 Flow Rate FiO2 09/22/16 19:13 99.1 09/22/16 18:23 110 25 143/91 98 Room Air Disposition: ADMITTED INPATIENT Condition: Serious Referrals: NOT CHOSEN IPA/,REFERRING (PCP) RICHI BETANCUR D.O. Sep 22, 2016 20:28
[2016-09-22 21:31] VITALS: BP 144/88
[2016-09-22] MEDS ORDERED: DuoNeb 0.5-3(2.5)mg/3ml neb HHN PRN (22:45)
[2016-09-22] MEDS ORDERED: Miralax 17gm pkt ORAL PRN (22:45)
[2016-09-22] MEDS ORDERED: Diltiazem 25mg/5ml IV PRN (22:45)
[2016-09-22] MEDS ORDERED: Nitroglycerin Subl 0.4mg tab (Bottle Of 25) SL PRN (22:45)
[2016-09-22] MEDS ORDERED: Enalaprilat 2.5mg/2ml Inj IV PRN (22:45)
[2016-09-22 22:57] VITALS: BP 142/97
[2016-09-23 00:15] VITALS: BP 150/93
[2016-09-23 00:31] VITALS: BP 142/97
[2016-09-23] MEDS ORDERED: Heparin 5000 units/ml inj SUBQ SCH (09:00)
[2016-09-23] MEDS ORDERED: Hydroxyurea 500mg cap ORAL SCH (09:00)
--- NOTE | 2016-09-26 14:05 | Cardiology Report ---
APPROVED REPORT EKG Measurement Heart [id number] Sinus tachycardia RSR' or QR pattern in V1 suggests right ventricular conduction delay Abnormal ECG
--- NOTE | 2016-10-19 14:38 | Diagnostic Imaging Report ---
Indication: Chest pain Technique: One view of the chest Comparison: 09/09/2016 Findings: Again demonstrated is a right jugular port catheter. There is decreased parenchymal disease remainder the prior study, although considerable interstitial disease persists bilaterally. The heart is borderline enlarged. Impression: Nonspecific bilateral interstitial disease, decreased from prior study 09/09/2016
== END 2016-09-23 00:31 | disposition left against medical advice (07) ==
LOC: EMR 16:25 → UNDOADMIN 22:22 → 2E 22:22 → EMR 09-23 00:31
DX: D57.00 Hb-SS disease with crisis, unspecified (principal); R07.9 Chest pain, unspecified; Z88.1 Allergy status to other antibiotic agents; Z88.5 Allergy status to narcotic agent; I10 Essential (primary) hypertension; J44.9 Chronic obstructive pulmonary disease, unspecified; D57.1 Sickle-cell disease without crisis; J45.909 Unspecified asthma, uncomplicated; Z86.69 Personal history of other diseases of the nervous system and sense organs; R94.31 Abnormal electrocardiogram [ECG] [EKG]
CPT/HCPCS: 36415; 71010; 80053; 80300; 81003; 82248; 82550; 82553; 84484; 85025; 85610; 85730; 87086; 93005; 99285; J1170; J1200

== ENCOUNTER 2016-09-26 15:33 | Inpatient (IN) | payer MEDICARE, OTHER ==
[~2016-09-26] VITALS: Ht 175.3 cm; Wt 70.8 kg
[2016-09-26 16:07] VITALS: BP 112/67
[2016-09-26] MEDS ORDERED: HYDROmorphone 2 MG, DiphenhydrAMINE 25 MG in NS 55 ML IVPB ONE (16:30)
[2016-09-26] MEDS ORDERED: DiphenhydrAMINE 50mg/ml Inj ONE (16:41)
[2016-09-26 17:03] LABS: MEAN CORPUSCULAR HEMOGLOBIN 30.1 PG (27.0-31.0); MEAN CORPUSCULAR HGB CONC 33.1 G/DL (32.0-36.0); MEAN CORPUSCULAR VOLUME 91 FL (80-99); MEAN PLATELET VOLUME 6.6 FL (6.5-10.1); PLATELET COUNT 362 K/UL (150-450); RED BLOOD COUNT 2.66 M/UL (4.70-6.10); RED CELL DISTRIBUTION WIDTH 17.9 % (11.6-14.8); WHITE BLOOD COUNT 18.9 K/UL (4.8-10.8)
[2016-09-26 17:19] LABS: ANION GAP 11 (5-15); CALCIUM 9.9 mg/dL (8.6-10.2); CARBON DIOXIDE 28 mEQ/L (20-30); CHLORIDE 100 mEQ/L (98-107); GLOMERULAR FILTRATION RATE > 60 mL/min (>60); HEMOLYSIS 8; POTASSIUM 4.6 mEQ/L (3.4-4.9); SODIUM 139 mEQ/L (135-145)
[2016-09-26 17:33] VITALS: BP 104/71
--- NOTE | 2016-09-26 17:57 | Emergency Room Report ---
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 vomiting Patient reports that he left AGAINST MEDICAL ADVICE recently However has continued to decompensate since that Denies any lower abdominal pain and as any back or flank pain patient initially complained of chest pain however reports that this is in line with his sickle cell disease Pain is 10 out of 10 diffusely throughout the body Allergies: Coded Allergies: AMPICILLIN (Verified Allergy, Unknown, 08/03/16) KETOROLAC (Verified Allergy, Unknown, 08/03/16) MORPHINE (Verified Allergy, Unknown, 08/03/16) PHENYTOIN (Verified Allergy, Unknown, 08/03/16) Patient History Past Medical History: see triage record Pertinent Family History: none Reviewed Nursing Documentation: PMH: Agreed, PSxH: Agreed Nursing Documentation-PMH Hx Cardiac Problems: Yes - Sickle Cell Anemia Hx Asthma: Yes Hx COPD: Yes Hx Cancer: No Hx Gastrointestinal Problems: No Hx Neurological Problems: Yes Hx Seizures: Yes Review of Systems All Other Systems: negative except mentioned in HPI Physical Exam Vital Signs Date Time Temp Pulse Resp B/P Pulse Ox O2 Delivery O2 Flow Rate FiO2 09/26/16 15:41 98.4 125 16 111/69 81 Nasal Cannula 6.0 Sp02 EP Interpretation: reviewed, normal, abnormal - 81% is interpreted as low , however patient is on oxygen and on 2 L patient saturates 95% which is in normal oxygenation, General Appearance: mild distress - Patient appears weak and uncomfortable Head: normocephalic, atraumatic Eyes: bilateral eye EOMI, bilateral eye PERRL ENT: normal pharynx, no angioedema Neck: supple, thyroid normal Respiratory: lungs clear, normal breath sounds Cardiovascular #1: no gallop, no murmur, tachycardia Gastrointestinal: soft, no mass, no organomegaly Musculoskeletal: normal inspection Neurologic: alert, oriented x3, responsive, 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 III-XII nml as tested Skin: normal color, no rash Lymphatic: no adenopathy Medical Decision Making Diagnostic Impression: Primary Impression: Sickle cell crisis ER Course Patient presents with multiple differentials Is considered complex requiring blood work and hydration along with pain medication Patient's blood work appear somewhat worsened from previous appears dehydrated Given the findings patient requires inpatient care and stabilization Labs Test 09/27/16 05:35 09/28/16 10:00 09/29/16 05:20 White Blood Count 18.2 K/UL (4.8-10.8) 15.9 K/UL (4.8-10.8) 18.7 K/UL (4.8-10.8) Red Blood Count 2.50 M/UL (4.70-6.10) 2.29 M/UL (4.70-6.10) 2.49 M/UL (4.70-6.10) Hemoglobin 7.6 G/DL (14.2-18.0) 6.9 G/DL (14.2-18.0) 7.8 G/DL (14.2-18.0) Hematocrit 22.8 % (42.0-52.0) 20.8 % (42.0-52.0) 22.8 % (42.0-52.0) Mean Corpuscular Volume 91 FL (80-99) 91 FL (80-99) 91 FL (80-99) Mean Corpuscular Hemoglobin 30.6 PG (27.0-31.0) 30.1 PG (27.0-31.0) 31.2 PG (27.0-31.0) Mean Corpuscular Hemoglobin Concent 33.5 G/DL (32.0-36.0) 33.1 G/DL (32.0-36.0) 34.1 G/DL (32.0-36.0) Red Cell Distribution Width 17.4 % (11.6-14.8) 18.2 % (11.6-14.8) 17.8 % (11.6-14.8) Platelet Count 386 K/UL (150-450) 370 K/UL (150-450) 357 K/UL (150-450) Mean Platelet Volume 6.6 FL (6.5-10.1) 6.5 FL (6.5-10.1) 6.7 FL (6.5-10.1) Neutrophils (%) (Auto) % (45.0-75.0) % (45.0-75.0) % (45.0-75.0) Lymphocytes (%) (Auto) % (20.0-45.0) % (20.0-45.0) % (20.0-45.0) Monocytes (%) (Auto) % (1.0-10.0) % (1.0-10.0) % (1.0-10.0) Eosinophils (%) (Auto) % (0.0-3.0) % (0.0-3.0) % (0.0-3.0) Basophils (%) (Auto) % (0.0-2.0) % (0.0-2.0) % (0.0-2.0) Differential Total Cells Counted 100 100 100 Neutrophils % (Manual) 45 % (45-75) 40 % (45-75) 50 % (45-75) Lymphocytes % (Manual) 31 % (20-45) 35 % (20-45) 31 % (20-45) Monocytes % (Manual) 5 % (1-10) 7 % (1-10) 6 % (1-10) Eosinophils % (Manual) 19 % (0-3) 18 % (0-3) 11 % (0-3) Basophils % (Manual) 0 % (0-2) 0 % (0-2) 2 % (0-2) Band Neutrophils 0 % (0-8) 0 % (0-8) 0 % (0-8) Nucleated Red Blood Cells 1 /100 WBC 2 /100 WBC Platelet Estimate Adequate Adequate Adequate Platelet Morphology Normal Normal Normal Hypochromasia 1+ 2+ 3+ Anisocytosis 2+ 1+ 1+ Sickle Cells Occasional Rare Reticulocyte Count 0.7 % (0.0-2.0) Sodium Level 143 mEQ/L (135-145) 146 mEQ/L (135-145) Potassium Level 4.9 mEQ/L (3.4-4.9) 4.8 mEQ/L (3.4-4.9) Chloride Level 104 mEQ/L (98-107) 108 mEQ/L (98-107) Carbon Dioxide Level 30 mEQ/L (20-30) 30 mEQ/L (20-30) Anion Gap 9 (5-15) 8 (5-15) Blood Urea Nitrogen 28 mg/dL (7-23) 19 mg/dL (7-23) Creatinine 0.9 mg/dL (0.7-1.2) 0.8 mg/dL (0.7-1.2) Estimat Glomerular Filtration Rate > 60 mL/min (>60) > 60 mL/min (>60) Glucose Level 98 mg/dL (74-106) 104 mg/dL (74-106) Calcium Level 9.3 mg/dL (8.6-10.2) 8.7 mg/dL (8.6-10.2) Magnesium Level 1.7 mg/dL (1.7-2.5) Total Bilirubin 0.8 mg/dL (0.0-1.2) Direct Bilirubin 0.2 mg/dL (0.1-0.3) Aspartate Amino Transf (AST/SGOT) 20 U/L (5-40) Alanine Aminotransferase (ALT/SGPT) 20 U/L (3-41) Alkaline Phosphatase 117 U/L (40-129) Total Protein 6.0 g/dL (6.6-8.7) Albumin 4.1 g/dL (3.5-5.2) Polychromasia EKG Diagnostic Results Rate: normal Rhythm: NSR ST Segments: no acute changes Rhythm Strip Diag. Results EP Interpretation: yes Rate: 66 Rhythm: NSR, no PVC's, no ectopy Last Vital Signs Date Time Temp Pulse Resp B/P Pulse Ox O2 Delivery O2 Flow Rate FiO2 09/26/16 17:33 96 16 104/71 96 Nasal Cannula 6.0 09/26/16 15:41 98.4 Status: improved Disposition: HOME, SELF-CARE Condition: Improved Referrals: NOT CHOSEN IPA/MD,REFERRING (PCP) Additional Instructions: Patient of the for further inpatient care and improved condition RACHEL SCHMIDT D.O. Sep 26, 2016 17:57
[2016-09-26 18:30] LABS: BASOPHILS % (MANUAL) 1 % (0-2); EOSINOPHILS % (MANUAL) 15 % (0-3); LYMPHOCYTES % (MANUAL) 29 % (20-45); NEUTROPHILS % (MANUAL) 49 % (45-75); TOTAL CELLS COUNTED 100
[2016-09-26 18:31] LABS: ANISOCYTOSIS 1+; BAND NEUTROPHILS % (MANUAL) 0 % (0-8); HYPOCHROMASIA 2+; PLATELET ESTIMATE ADEQUATE; PLATELET MORPHOLOGY NORMAL; POLYCHROMASIA 1+
[2016-09-26 18:47] LABS: RETICULOCYTE COUNT 3.5 % (0.0-2.0)
[2016-09-26 19:01] VITALS: BP 131/98
[2016-09-26 20:45] VITALS: BP 113/69
[2016-09-26] MEDS ORDERED: Zolpidem 5mg tab ORAL PRN (21:30)
[2016-09-26] MEDS ORDERED: DiphenhydrAMINE 50mg/ml Inj IVP PRN (21:30)
[2016-09-26] MEDS ORDERED: HYDROmorphone 2 MG in NS 55 ML IVPB PRN (21:30)
[2016-09-26] MEDS ORDERED: HYDROmorphone 1mg/NS 50ml IVPB 50 ML IVPB PRN (21:30)
[2016-09-26] MEDS ORDERED: DuoNeb 0.5-3(2.5)mg/3ml neb HHN PRN (21:30)
[2016-09-26] MEDS ORDERED: Mylanta II UD 30ml ORAL PRN (21:30)
[2016-09-26 23:09] VITALS: BP 127/74
[2016-09-27] MEDS: Hydroxyurea 500mg cap ORAL SCH ×4 (00:55→18:41)
[2016-09-27 01:00] VITALS: BP 145/92
[2016-09-27 04:00] VITALS: BP 133/83
[2016-09-27 06:41] LABS: MEAN CORPUSCULAR HEMOGLOBIN 30.6 PG (27.0-31.0); MEAN CORPUSCULAR HGB CONC 33.5 G/DL (32.0-36.0); MEAN CORPUSCULAR VOLUME 91 FL (80-99); MEAN PLATELET VOLUME 6.6 FL (6.5-10.1); PLATELET COUNT 386 K/UL (150-450); RED CELL DISTRIBUTION WIDTH 17.4 % (11.6-14.8); WHITE BLOOD COUNT 18.2 K/UL (4.8-10.8)
[2016-09-27 06:58] LABS: BILIRUBIN,DIRECT 0.2 mg/dL (0.1-0.3)
[2016-09-27 06:59] LABS: ANION GAP 9 (5-15); CALCIUM 9.3 mg/dL (8.6-10.2); CARBON DIOXIDE 30 mEQ/L (20-30); CHLORIDE 104 mEQ/L (98-107); CREATININE 0.9 mg/dL (0.7-1.2); GLOMERULAR FILTRATION RATE > 60 mL/min (>60); HEMOLYSIS 8; MAGNESIUM 1.7 mg/dL (1.7-2.5); POTASSIUM 4.9 mEQ/L (3.4-4.9); SODIUM 143 mEQ/L (135-145)
--- NOTE | 2016-09-27 08:46 | History and Physical ---
History of Present Illness General Date patient seen: Sep 27, 2016 Time patient seen: 08:46 Reason for Hospitalization: sickle cell crisis Present Illness HPI 40 y/o male with pmh of sickle cell anemia, b/l hip avascular necrosis, chronic pain, opioid dependence who presents with increased pain. Pt states symptoms are characteristic of his typical sickle cell flare up. He also notes incr nausea and vomiting w/ difficultly taking PO's. Pain is mainly ins lower back, hips and chest. Denies f/c, SOB, cough, abd pain, d/c. Allergies: Coded Allergies: AMPICILLIN (Verified Allergy, Unknown, 08/03/16) KETOROLAC (Verified Allergy, Unknown, 08/03/16) MORPHINE (Verified Allergy, Unknown, 08/03/16) PHENYTOIN (Verified Allergy, Unknown, 08/03/16) Medication History Scheduled Folic Acid* (Folic Acid*), 1 MG ORAL DAILY, (Reported) Gabapentin* (Gabapentin*), 500 MG ORAL THREE TIMES A DAY, (Reported) Hydroxyurea* (Hydrea*), 500 MG PO BID, (Reported) Levofloxacin* (Levaquin*), 500 MG ORAL DAILY Methadone Hcl* (Methadone*), 10 MG PO Q6HR, (Reported) Scheduled PRN Diphenhydramine HCl (Benadryl), 50 MG PO Q4HR PRN for Itching, (Reported) Hydromorphone HCl (Dilaudid), 4 MG ORAL Q6HR PRN for prn, (Reported) Hydromorphone Hcl (Dilaudid), 4 MG PO Q6HR PRN for prn , (Reported) Patient History History Provided By: Patient, Medical Record Healthcare decision maker simone Barrett sister Resuscitation status Full Code Advanced Directive on File No Family History Family History: Patient reports no known family medical history. Social History Social History: (1) No significant social history Review of Systems ROS Narrative CONSTITUTIONAL: No weight loss, fever, chills, weakness or fatigue. HEENT: Eyes: No visual loss, blurred vision, double vision or yellow sclerae. Ears, Nose, Throat: No hearing loss, sneezing, congestion, runny nose or sore throat. SKIN: No rash or itching. CARDIOVASCULAR: +chest pain, chest pressure or chest discomfort. No palpitations or edema. RESPIRATORY: No shortness of breath, cough or sputum. GASTROINTESTINAL: No anorexia, nausea, vomiting or diarrhea. No abdominal pain or blood. NEUROLOGICAL: No headache, dizziness, syncope, paralysis, ataxia, numbness or tingling in the extremities. No change in bowel or bladder control. MUSCULOSKELETAL: +muscle, back pain, joint pain or stiffness. HEMATOLOGIC: No anemia, bleeding or bruising. LYMPHATICS: No enlarged nodes. No history of splenectomy. PSYCHIATRIC: No history of depression or anxiety. ENDOCRINOLOGIC: No reports of sweating, cold or heat intolerance. No polyuria or polydipsia. ALLERGIES: No history of asthma, hives, eczema or rhinitis. Physical Exam Physical Exam Narrative General: alert, cooperative, no distress, appears stated age Head: normocephalic, without obvious abnormality, atraumatic Eyes: conjunctivae/corneas clear. PERRL, EOM's intact Throat: lips, mucosa, and tongue normal. MMM Neck: supple, symmetrical, trachea midline, and no JVD Lungs: clear to auscultation bilaterally Heart: regular rate and rhythm, S1, S2 normal, no murmur, click, rub or gallop Abdomen: soft, non-tender, non-distended, bowel sounds normal; no masses or organomegaly Extremities: extremities normal, atraumatic, no cyanosis or edema Pulses: 2+ and symmetric Skin: skin color, texture, turgor normal; no rashes or lesions Neurologic: grossly normal, no focal deficits Last 24 Hour Vital Signs Date Time Temp Pulse Resp B/P Pulse Ox O2 Delivery O2 Flow Rate FiO2 09/27/16 04:00 97.2 89 18 133/83 100 Nasal Cannula 2.0 09/27/16 01:00 97.0 97 19 145/92 100 Nasal Cannula 6.0 09/26/16 23:10 98.0 86 16 127/74 96 Nasal Cannula 6.0 09/26/16 23:09 98.0 86 16 127/74 96 Nasal Cannula 6.0 09/26/16 20:45 98.0 78 16 113/69 96 Nasal Cannula 6.0 09/26/16 19:01 90 16 131/98 96 Nasal Cannula 6.0 09/26/16 18:14 98.5 09/26/16 17:33 96 16 104/71 96 Nasal Cannula 6.0 09/26/16 16:07 117 16 Nasal Cannula 6.0 09/26/16 16:07 117 16 112/67 92 Nasal Cannula 6.0 09/26/16 15:41 98.4 125 16 111/69 81 Nasal Cannula 6.0 Intake and Output 09/26/16 09/27/16 19:00 07:00 Intake Total 0 ml 1000 ml Output Total 1400 ml Balance 0 ml -400 ml Intake Oral 0 ml 0 ml IV Total 1000 ml Output Urine Total 1400 ml Laboratory Tests Test 09/26/16 16:40 09/27/16 05:35 White Blood Count 18.9 K/UL (4.8-10.8) H 18.2 K/UL (4.8-10.8) H Red Blood Count 2.66 M/UL (4.70-6.10) L 2.50 M/UL (4.70-6.10) L Hemoglobin 8.0 G/DL (14.2-18.0) L 7.6 G/DL (14.2-18.0) L Hematocrit 24.3 % (42.0-52.0) L 22.8 % (42.0-52.0) L Mean Corpuscular Volume 91 FL (80-99) 91 FL (80-99) Mean Corpuscular Hemoglobin 30.1 PG (27.0-31.0) 30.6 PG (27.0-31.0) Mean Corpuscular Hemoglobin Concent 33.1 G/DL (32.0-36.0) 33.5 G/DL (32.0-36.0) Red Cell Distribution Width 17.9 % (11.6-14.8) H 17.4 % (11.6-14.8) H Platelet Count 362 K/UL (150-450) 386 K/UL (150-450) Mean Platelet Volume 6.6 FL (6.5-10.1) 6.6 FL (6.5-10.1) Neutrophils (%) (Auto) % (45.0-75.0) % (45.0-75.0) Lymphocytes (%) (Auto) % (20.0-45.0) % (20.0-45.0) Monocytes (%) (Auto) % (1.0-10.0) % (1.0-10.0) Eosinophils (%) (Auto) % (0.0-3.0) % (0.0-3.0) Basophils (%) (Auto) % (0.0-2.0) % (0.0-2.0) Differential Total Cells Counted 100 Neutrophils % (Manual) 49 % (45-75) Pending Lymphocytes % (Manual) 29 % (20-45) Pending Monocytes % (Manual) 6 % (1-10) Eosinophils % (Manual) 15 % (0-3) H Basophils % (Manual) 1 % (0-2) Band Neutrophils 0 % (0-8) Platelet Estimate Adequate Pending Platelet Morphology Normal Pending Polychromasia 1+ Hypochromasia 2+ Anisocytosis 1+ Reticulocyte Count 3.5 % (0.0-2.0) H Sodium Level 139 mEQ/L (135-145) 143 mEQ/L (135-145) Potassium Level 4.6 mEQ/L (3.4-4.9) 4.9 mEQ/L (3.4-4.9) Chloride Level 100 mEQ/L (98-107) 104 mEQ/L (98-107) Carbon Dioxide Level 28 mEQ/L (20-30) 30 mEQ/L (20-30) Anion Gap 11 (5-15) 9 (5-15) Blood Urea Nitrogen 29 mg/dL (7-23) H 28 mg/dL (7-23) H Creatinine 1.0 mg/dL (0.7-1.2) 0.9 mg/dL (0.7-1.2) Estimat Glomerular Filtration Rate > 60 mL/min (>60) > 60 mL/min (>60) Glucose Level 109 mg/dL (74-106) H 98 mg/dL (74-106) Calcium Level 9.9 mg/dL (8.6-10.2) 9.3 mg/dL (8.6-10.2) Magnesium Level 1.7 mg/dL (1.7-2.5) Total Bilirubin 0.8 mg/dL (0.0-1.2) Direct Bilirubin 0.2 mg/dL (0.1-0.3) Aspartate Amino Transf (AST/SGOT) 20 U/L (5-40) Alanine Aminotransferase (ALT/SGPT) 20 U/L (3-41) Alkaline Phosphatase 117 U/L (40-129) Total Protein 6.0 g/dL (6.6-8.7) L Albumin 4.1 g/dL (3.5-5.2) Height (Feet): 5 Height (Inches): 9.00 Weight (Pounds): 156 Medications Current Medications Medications (Trade) Dose Ordered Sig/Anthony Route PRN Reason Start Time Stop Time Status Last Admin Dose Admin Al Hydroxide/Mg Hydroxide (Mylanta II) 30 ml Q6H PRN ORAL dyspepsia 09/26/16 21:30 10/26/16 21:29 Albuterol/ Ipratropium (DuoNeb 0.5-3(2.5)mg/3ml) 3 ml Q4H PRN HHN Shortness of Breath 09/26/16 21:30 10/01/16 21:29 Dextrose (Dextrose 50%) STAT PRN IV Hypoglycemia 09/26/16 21:30 10/26/16 21:29 Diphenhydramine HCl (Benadryl) 50 mg Q4H PRN ORAL Itching 09/26/16 21:30 10/26/16 21:29 Diphenhydramine HCl 50 mg 50 mg Q4H PRN IVP itching 09/26/16 21:30 10/26/16 21:29 Folic Acid (Folate) 1 mg DAILY ORAL 09/27/16 09:00 10/27/16 08:59 Gabapentin (Neurontin) 600 mg THREE TIMES A DAY ORAL 09/27/16 00:00 10/27/16 00:00 Hydromorphone HCl (Dilaudid Premix 1mg/50ml) 50 ml @ 200 mls/hr Q4H PRN IVPB mod pain 09/26/16 21:30 10/26/16 21:29 Hydromorphone HCl/ Sodium Chloride (Dilaudid/Sodium Chloride) 56 ml @ 224 mls/hr Q4H PRN IVPB severe pain 09/26/16 21:30 10/03/16 21:29 Hydroxyurea (Hydrea) 500 mg BID ORAL 09/27/16 00:00 10/02/16 00:00 09/27/16 00:55 Methadone HCl (Methadone HCl) 50 mg Q6H ORAL 09/26/16 21:30 10/03/16 21:29 UNV Ondansetron HCl 4 mg 4 mg Q4H PRN IVP nausea/vomiting 09/26/16 21:30 10/26/16 21:29 Pantoprazole (Protonix) 40 mg DAILY ORAL 09/27/16 09:00 10/27/16 08:59 Sodium Chloride 1,000 ml @ 150 mls/hr Q6H40M IV 09/27/16 00:00 10/27/16 00:00 09/27/16 00:52 Zolpidem Tartrate (Ambien) 5 mg HSPRN PRN ORAL Insomnia 09/26/16 21:30 10/26/16 21:29 Assessment/Plan Problem List: (1) Sickle cell crisis ICD Codes: D57.00 - Hb-SS disease with crisis, unspecified SNOMED: 283230352 (2) Avascular necrosis of femur head, right ICD Codes: M87.051 - Idiopathic aseptic necrosis of right femur SNOMED: 372906809 (3) Avascular necrosis of femur head, left ICD Codes: M87.052 - Idiopathic aseptic necrosis of left femur SNOMED: 825445890 (4) Interstitial lung disease ICD Codes: J84.9 - Interstitial pulmonary disease, unspecified SNOMED: 70757651, 498200839 (5) Intractable pain ICD Codes: R52 - Pain, unspecified SNOMED: 48859347 Status: stable Assessment/Plan - Admit to inpt - Hematology consulted - Monitor cell counts - Continue hydroxyurea 500mg bid - Continue Folic acid - IVFs - O2 - Pain mgmt consulted DVT Prophylaxis: SCD Code Status: Full Hospital Classification Declaration: Based on this initial evaluation, and depending on the patient's clinical course, I anticipate that this patient will require hospitalization for 2-3 days for sickle cell crisis, and close respiratory/hemodynamic monitoring. Disposition: Once the patient is stable to leave the hospital, I anticipate the patient will likely be discharged to the following environment: home vs home w/ hh I spent 70 minutes on this patient's case, and 36 minutes were dedicated to counseling and/or care coordination. Discussed with patient/family, nursing staff, SW/CM, pain mgmt, heme regarding clinical status, treatment course, and disposition planning. Time of note may not reflect time of encounter. Jerri Samaniego M.D. Sep 27, 2016 08:46
[2016-09-27 08:48] VITALS: BP 123/64
--- NOTE | 2016-09-27 09:04 | General Progress Note ---
Assessment/Plan Assessment/Plan (1) Intractable pain ICD Codes: R52 - Pain, unspecified SNOMED: 27108525 (2) Avascular necrosis of femur head, left ICD Codes: M87.052 - Idiopathic aseptic necrosis of left femur SNOMED: 099170278 (3) Sickle cell crisis ICD Codes: D57.00 - Hb-SS disease with crisis, unspecified SNOMED: 880088387 (4) Avascular necrosis of femur head, right ICD Codes: M87.051 - Idiopathic aseptic necrosis of right femur SNOMED: 121972879 Assessment/Plan Patient will be continue methadone at reduced amount of 20mg Q6H ATC hold for oversedation, Dilaudid 1-2 mg IV Q4H PRN Moderate to severe pain. Parameters were set to hold narcotics for oversedation Pt was d/w Dr. Perera and he concurred. Thank you for the courtesy of this consultation. Subjective Date patient seen: Sep 27, 2016 Time patient seen: 07:30 - am Allergies: Coded Allergies: AMPICILLIN (Verified Allergy, Unknown, 08/03/16) KETOROLAC (Verified Allergy, Unknown, 08/03/16) MORPHINE (Verified Allergy, Unknown, 08/03/16) PHENYTOIN (Verified Allergy, Unknown, 08/03/16) Subjective Constitutional: Reports: chills HEENT: Denies: blurred vision, double vision, ear discharge, ear pain, eye pain , mouth pain, mouth swelling, nose congestion, nose pain, tearing, throat pain, throat swelling Cardiovascular: Denies: chest pain, edema, irregular heart rate, lightheadedness, palpitations, syncope Respiratory: Denies: SOB at rest, SOB with excertion, cough, orthopnea, shortness of breath, sputum, stridor, wheezing Gastrointestinal/Abdominal: Denies: abdomen distended, abdominal pain, black stools, blood in stool, constipated, diarrhea, difficulty swallowing, nausea, poor appetite, poor fluid intake, rectal bleeding, tarry stools, vomiting Genitourinary: Denies: burning, discharge, flank pain, frequency, hematuria, incontinence, pain, urgency 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: Denies: anxiety, depressed, emotional problems, headache, numbness, paresthesia, pre-existing deficit, seizure, tingling, tremors, weakness Endocrine: Reports: other, Denies: excessive sweating, flushing, increased hunger, increased thirst, increased urine, intolerance to cold, intolerance to heat, unexplained weight gain, unexplained weight loss Hematologic/Lymphatic: Denies: anemia, easy bleeding, easy bruising Subjective Patient has been seen on prior admissions and now returns with SCC and continues to c/o pain throughout is body mostly in his back and joints. He was started on Methadone 50mg Q6h and Dilaudid 1-2mg IVPB. However at this time pain is severe we will reduce the methadone to 20mg Q6H ARC hold for over sedation and change the IVPB to IV with parameters to hold narcotic for oversedation. Objective Last 24 Hour Vital Signs Date Time Temp Pulse Resp B/P Pulse Ox O2 Delivery O2 Flow Rate FiO2 09/27/16 08:48 97.0 88 20 123/64 100 Nasal Cannula 4.0 09/27/16 07:12 89 20 Room Air 21 09/27/16 04:00 97.2 89 18 133/83 100 Nasal Cannula 2.0 09/27/16 01:00 97.0 97 19 145/92 100 Nasal Cannula 6.0 09/26/16 23:10 98.0 86 16 127/74 96 Nasal Cannula 6.0 09/26/16 23:09 98.0 86 16 127/74 96 Nasal Cannula 6.0 09/26/16 20:45 98.0 78 16 113/69 96 Nasal Cannula 6.0 09/26/16 19:01 90 16 131/98 96 Nasal Cannula 6.0 09/26/16 18:14 98.5 09/26/16 17:33 96 16 104/71 96 Nasal Cannula 6.0 09/26/16 16:07 117 16 Nasal Cannula 6.0 09/26/16 16:07 117 16 112/67 92 Nasal Cannula 6.0 09/26/16 15:41 98.4 125 16 111/69 81 Nasal Cannula 6.0 Intake and Output 09/26/16 09/27/16 19:00 07:00 Intake Total 0 ml 1000 ml Output Total 1400 ml Balance 0 ml -400 ml Intake Oral 0 ml 0 ml IV Total 1000 ml Output Urine Total 1400 ml Laboratory Tests 09/26/16 16:40: White Blood Count 18.9H, Red Blood Count 2.66L, Hemoglobin 8.0L, Hematocrit 24.3L, Mean Corpuscular Volume 91, Mean Corpuscular Hemoglobin 30.1, Mean Corpuscular Hemoglobin Concent 33.1, Red Cell Distribution Width 17.9H, Platelet Count 362, Mean Platelet Volume 6.6, Neutrophils (%) (Auto) , Lymphocytes (%) (Auto) , Monocytes (%) (Auto) , Eosinophils (%) (Auto) , Basophils (%) (Auto) , Differential Total Cells Counted 100, Neutrophils % ( Manual) 49, Lymphocytes % (Manual) 29, Monocytes % (Manual) 6, Eosinophils % ( Manual) 15H, Basophils % (Manual) 1, Band Neutrophils 0, Platelet Estimate Adequate, Platelet Morphology Normal, Polychromasia 1+, Hypochromasia 2+, Anisocytosis 1+, Reticulocyte Count 3.5H, Sodium Level 139, Potassium Level 4.6 , Chloride Level 100, Carbon Dioxide Level 28, Anion Gap 11, Blood Urea Nitrogen 29H, Creatinine 1.0, Estimat Glomerular Filtration Rate > 60, Glucose Level 109H, Calcium Level 9.9 09/27/16 05:35: White Blood Count 18.2H, Red Blood Count 2.50L, Hemoglobin 7.6L, Hematocrit 22.8L, Mean Corpuscular Volume 91, Mean Corpuscular Hemoglobin 30.6, Mean Corpuscular Hemoglobin Concent 33.5, Red Cell Distribution Width 17.4H, Platelet Count 386, Mean Platelet Volume 6.6, Neutrophils (%) (Auto) , Lymphocytes (%) (Auto) , Monocytes (%) (Auto) , Eosinophils (%) (Auto) , Basophils (%) (Auto) , Neutrophils % (Manual) [Pending], Lymphocytes % (Manual) [Pending], Platelet Estimate [Pending], Platelet Morphology [Pending], Sodium Level 143, Potassium Level 4.9, Chloride Level 104, Carbon Dioxide Level 30, Anion Gap 9, Blood Urea Nitrogen 28H, Creatinine 0.9, Estimat Glomerular Filtration Rate > 60, Glucose Level 98, Calcium Level 9.3, Magnesium Level 1.7, Total Bilirubin 0.8, Direct Bilirubin 0.2, Aspartate Amino Transf (AST/SGOT) 20 , Alanine Aminotransferase (ALT/SGPT) 20, Alkaline Phosphatase 117, Total Protein 6.0L, Albumin 4.1 Height (Feet): 5 Height (Inches): 9.00 Weight (Pounds): 156 Objective General Appearance: no apparent distress, alert EENT: PERRL/EOMI, normal ENT inspection Neck: non-tender, normal alignment Cardiovascular: normal rate, regular rhythm Respiratory/Chest: decreased breath sounds Abdomen: non tender, soft Edema: no edema noted Arm (L), no edema noted Arm (R), no edema noted Leg (L), no edema noted Leg (R), no edema noted Pedal (L), no edema noted Pedal (R), no edema noted Generalized Neurologic: alert, oriented x 3 Skin: warm/dry ANTIONE PHILLIPS Sep 27, 2016 09:04
[2016-09-27] MEDS ORDERED: HYDROmorphone 1mg/ml Carpuject IVP PRN (09:15)
[2016-09-27] MEDS: DiphenhydrAMINE 50mg/ml Inj IVP PRN ×3 (10:29→21:47)
--- NOTE | 2016-09-27 10:39 | Wound Care Consultation ---
Wound Assessment Wound Assessment : Wound Number: #1 Wound Present on Admission: Yes New Wound: No Status Change of Wound: No Wound Location Body Site Modif: left, lateral Wound Location Body Site: foot Wound Type: other - old wound site with full thickness dry , scaly scar tissue. Too Test: Does not Too Wound Thickness: Full Thickness Wound Length: 12.0 Wound Width: 3.0 Percent of Wound [place]/Red: 80 Percent of Wound Purple/Maroon: 20 - noted scattered maroon color to scar tissue remains intact. Wound Drainage Amount: None Wound Drainage Odor: None/Absent Tissue Surrounding Wound: dry, scaly, erythemic Wound General Appearance: Reddened, Open to air Wound Comment #1 left lateral full thickness dry, scaly red/ maroon scar tissue from previous wound site. Recommendation -Local wound care as ordered. -Keep skin clean and dry. -keep skin moisturized. -Optimize nutrition. -Turn and reposition. -Offload affected site. -Offload heels and feet. -Assess and notify MD if any further change of condition is noted. GUALBERTO RIVERA Sep 27, 2016 10:39
[2016-09-27 11:58] LABS: BAND NEUTROPHILS % (MANUAL) 0 % (0-8); BASOPHILS % (MANUAL) 0 % (0-2); EOSINOPHILS % (MANUAL) 19 % (0-3); LYMPHOCYTES % (MANUAL) 31 % (20-45); NEUTROPHILS % (MANUAL) 45 % (45-75); NUCLEATED RED BLOOD CELLS 1 /100 WBC; PLATELET ESTIMATE ADEQUATE; PLATELET MORPHOLOGY NORMAL; TOTAL CELLS COUNTED 100
[2016-09-27 11:59] LABS: ANISOCYTOSIS 2+; HYPOCHROMASIA 1+
[2016-09-27 12:01] LABS: SICKLE CELLS OCCASIONAL
[2016-09-27] MEDS: Vitamin A&D Oint 2oz Tube TOPIC SCH ×2 (12:04→21:49)
[2016-09-27 16:44] VITALS: BP 131/78
[2016-09-27 20:00] VITALS: BP 129/79
[2016-09-28 00:47] VITALS: BP 125/80
[2016-09-28] MEDS: DiphenhydrAMINE 50mg/ml Inj IVP PRN ×5 (01:51→21:41)
--- NOTE | 2016-09-28 07:28 | Consultation ---
DATE OF CONSULTATION: 09/27/2016 HEMATOLOGY/ONCOLOGY CONSULTATION CONSULTING PHYSICIAN: Marco Dutton M.D. REQUESTING PHYSICIAN: 1. Darcy Rollins M.D. 2. Jerri Samaniego M.D. REASON FOR CONSULTATION: Management of sickle cell crisis. IDENTIFICATION DATA: Dear Dr. Guthrie, The patient is a pleasant 40-year-old male with a past medical history significant for sickle cell disease. He was recently admitted on 09/09/2016. He has a past medical history of sickle cell disease with having pain crisis. At this time, I was called by Dr. Jerri Samaniego that the patient has a sickle cell disease with increased nausea and vomiting. Decompensated since last admission. Complaining of chest pain. He is having 10/10 pain throughout the body. He was given Dilaudid and admitted for further evaluation and care. PAST MEDICAL HISTORY: 1. Sickle cell disease. 2. Sickle crisis with pain syndrome. MEDICATIONS: . ALLERGIES: No known drug allergies. SOCIAL HISTORY: No alcohol, tobacco, or illicit drug use. FAMILY HISTORY: Noncontributory. REVIEW OF SYSTEMS: Constitutional: No fever, chills, or night sweats. Skin: No rashes, lumps, or itching. HEENT: No headache, hearing, or vision changes. Breasts: No lumps, pain, or discharge. Pulmonary: No cough, sputum, or shortness of breath. Cardiovascular: No chest pain, tightness, or palpitations. Gastrointestinal: No nausea, vomiting, or diarrhea. Genitourinary: No dysuria, frequency, or urgency. Musculoskeletal: No joint swelling, muscle pain, or trauma. Neurological: No dizziness, fainting, or seizures. PHYSICAL EXAMINATION: GENERAL: The patient is in no acute distress. VITAL SIGNS: Temperature 97.9 degrees Fahrenheit, pulse is 74, respiratory rate 12, blood pressure 131/70, and pulse oximetry is 98% on room air. PULMONARY: Decreased breath sounds. CARDIOVASCULAR: Regular rate. No S3 or S4. ABDOMEN: Soft, nontender, and nondistended. EXTREMITIES: There is 1+ edema. LABORATORY DATA: WBC , hemoglobin , and platelet count 86,000. BUN 20 and creatinine 0.9. ASSESSMENT: 1. Sickle cell crisis acute chest pain. 2. Hemoglobin goal of above 7. 3. The patient seems to be in pain, has been seen by pain service. 4. Adjust the medications as needed. 5. . 6. Bilirubin within normal limits. 7. . 8. in the past. 9. Thrombocytosis secondary to reactive process from anemia. Does not have any evidence of infection . 10. Pneumonia being treated with antibiotics. RECOMMENDATIONS: 1. Monitor counts. 2. Transfuse if necessary. 3. Hemoglobin goal of above 7. 4. management. 5. Bilirubin within normal limits. 6. DVT prophylaxis. 7. Hematology followup. The patient has been noncompliant with four days 8. Discussed with staff. Thank you, Dr. Jerri Samaniego, for this kind referral. Please do not hesitate to contact me if you have any further questions. Marco Dutton M.D. DR: DEMETRICE JOB#: [id number] CC:
[2016-09-28 08:00] VITALS: BP 124/89
--- NOTE | 2016-09-28 08:14 | General Progress Note ---
Assessment/Plan Assessment/Plan ASSESSMENT: 1. Sickle cell crisis with no evidence of acute chest syndrome. Know this patient very well from prior hospital admissions. Has been seen in past by pain service and had been on extraordinarily high doses of pain meds including methadone. Now retic count is low. On prior crisis has presented with elevated retic count. Hgb >7 goal, patient continues to be in pain at this time, on incentive spirometry. Bili is nml. He has a hx of noncompliance, has extremely high opiod tolerance. Also says will come in next week for appt to see me ( however, has a hx of noncompliance) 2. Thrombocytosis - due to reactive process 3. Leukocytosis due to reactive process from anemia 4 Avascular Necrosis of the hip 5. Pain from the sickle cell crisis 6. Pneumonia - being treated on abx RECOMMENDATIONS: - Monitor cell count - Continue hydroxyurea 500mg bid as well as folic acid - Check retic as needed - Pain management recs - DVT Prophylaxis with SCDs - Out patient Hematology follow up (Tu next wk, however patient with hx noncompliance) - staff Thank you, Marco Dutton MD Subjective Constitutional: Reports: no symptoms HEENT: Reports: no symptoms Cardiovascular: Reports: no symptoms Respiratory: Reports: no symptoms Gastrointestinal/Abdominal: Reports: poor appetite Genitourinary: Reports: no symptoms 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: Reports: no symptoms Endocrine: Reports: no symptoms Hematologic/Lymphatic: Reports: anemia Allergies: Coded Allergies: AMPICILLIN (Verified Allergy, Unknown, 08/03/16) KETOROLAC (Verified Allergy, Unknown, 08/03/16) MORPHINE (Verified Allergy, Unknown, 08/03/16) PHENYTOIN (Verified Allergy, Unknown, 08/03/16) Subjective stable, pain continues to persist, is 810, retic low Objective Last 24 Hour Vital Signs Date Time Temp Pulse Resp B/P Pulse Ox O2 Delivery O2 Flow Rate FiO2 09/28/16 07:30 84 20 Nasal Cannula 3.0 32 09/28/16 00:47 98.2 79 19 125/80 99 Nasal Cannula 09/27/16 22:17 98.1 09/27/16 20:39 80 20 Nasal Cannula 3.0 09/27/16 20:00 98.1 86 19 129/79 95 Room Air 09/27/16 16:44 97.9 74 18 131/78 92 Nasal Cannula 5.0 09/27/16 08:48 97.0 88 20 123/64 100 Nasal Cannula 4.0 Intake and Output 09/27/16 09/28/16 19:00 07:00 Intake Total 960 ml 990 ml Output Total 1900 ml 1525 ml Balance -940 ml -535 ml Intake Oral 960 ml 240 ml IV Total 750 ml Output Urine Total 1900 ml 1525 ml Height (Feet): 5 Height (Inches): 9.00 Weight (Pounds): 156 General Appearance: no apparent distress EENT: TMs normal Neck: supple Cardiovascular: regular rhythm Respiratory/Chest: normal breath sounds Abdomen: non tender Extremities: non-tender Edema: 1+ Leg (L), 1+ Leg (R) Edema: mild edema Neurologic: alert Marco Dutton Sep 28, 2016 08:14
[2016-09-28] MEDS: Hydroxyurea 500mg cap ORAL SCH ×2 (08:24→18:26)
[2016-09-28] MEDS: Vitamin A&D Oint 2oz Tube TOPIC SCH ×2 (08:26→21:40)
--- NOTE | 2016-09-28 08:26 | General Progress Note ---
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 Pt was d/w Dr. Perera and he concurred. Subjective Date patient seen: Sep 28, 2016 Time patient seen: 07:45 - am Allergies: Coded Allergies: AMPICILLIN (Verified Allergy, Unknown, 08/03/16) KETOROLAC (Verified Allergy, Unknown, 08/03/16) MORPHINE (Verified Allergy, Unknown, 08/03/16) PHENYTOIN (Verified Allergy, Unknown, 08/03/16) Subjective Constitutional: Reports: chills HEENT: Denies: blurred vision, double vision, ear discharge, ear pain, eye pain , mouth pain, mouth swelling, nose congestion, nose pain, tearing, throat pain, throat swelling Cardiovascular: Denies: chest pain, edema, irregular heart rate, lightheadedness, palpitations, syncope Respiratory: Denies: SOB at rest, SOB with excertion, cough, orthopnea, shortness of breath, sputum, stridor, wheezing Gastrointestinal/Abdominal: Denies: abdomen distended, abdominal pain, black stools, blood in stool, constipated, diarrhea, difficulty swallowing, nausea, poor appetite, poor fluid intake, rectal bleeding, tarry stools, vomiting Genitourinary: Denies: burning, discharge, flank pain, frequency, hematuria, incontinence, pain, urgency 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: Denies: anxiety, depressed, emotional problems, headache, numbness, paresthesia, pre-existing deficit, seizure, tingling, tremors, weakness Endocrine: Reports: other, Denies: excessive sweating, flushing, increased hunger, increased thirst, increased urine, intolerance to cold, intolerance to heat, unexplained weight gain, unexplained weight loss Hematologic/Lymphatic: Denies: anemia, easy bleeding, easy bruising Subjective Pt was unable to tolerated the reduced methadone at 20mg and I d/w pt about increasing to 30mg. Objective Last 24 Hour Vital Signs Date Time Temp Pulse Resp B/P Pulse Ox O2 Delivery O2 Flow Rate FiO2 09/28/16 07:30 84 20 Nasal Cannula 3.0 32 09/28/16 00:47 98.2 79 19 125/80 99 Nasal Cannula 09/27/16 22:17 98.1 09/27/16 20:39 80 20 Nasal Cannula 3.0 09/27/16 20:00 98.1 86 19 129/79 95 Room Air 09/27/16 16:44 97.9 74 18 131/78 92 Nasal Cannula 5.0 09/27/16 08:48 97.0 88 20 123/64 100 Nasal Cannula 4.0 Intake and Output 09/27/16 09/28/16 19:00 07:00 Intake Total 960 ml 990 ml Output Total 1900 ml 1525 ml Balance -940 ml -535 ml Intake Oral 960 ml 240 ml IV Total 750 ml Output Urine Total 1900 ml 1525 ml Height (Feet): 5 Height (Inches): 9.00 Weight (Pounds): 156 Objective General Appearance: no apparent distress, alert EENT: PERRL/EOMI, normal ENT inspection Neck: non-tender, normal alignment Cardiovascular: normal rate, regular rhythm Respiratory/Chest: decreased breath sounds Abdomen: non tender, soft Edema: no edema noted Arm (L), no edema noted Arm (R), no edema noted Leg (L), no edema noted Leg (R), no edema noted Pedal (L), no edema noted Pedal (R), no edema noted Generalized Neurologic: alert, oriented x 3 Skin: warm/dry ANTIONE PHILLIPS Sep 28, 2016 08:26
[2016-09-28 10:29] LABS: MEAN CORPUSCULAR HEMOGLOBIN 30.1 PG (27.0-31.0); MEAN CORPUSCULAR HGB CONC 33.1 G/DL (32.0-36.0); MEAN CORPUSCULAR VOLUME 91 FL (80-99); MEAN PLATELET VOLUME 6.5 FL (6.5-10.1); PLATELET COUNT 370 K/UL (150-450); RED BLOOD COUNT 2.29 M/UL (4.70-6.10); RED CELL DISTRIBUTION WIDTH 18.2 % (11.6-14.8); WHITE BLOOD COUNT 15.9 K/UL (4.8-10.8)
[2016-09-28 10:43] LABS: ANION GAP 8 (5-15); CALCIUM 8.7 mg/dL (8.6-10.2); CARBON DIOXIDE 30 mEQ/L (20-30); CHLORIDE 108 mEQ/L (98-107); CREATININE 0.8 mg/dL (0.7-1.2); GLOMERULAR FILTRATION RATE > 60 mL/min (>60); HEMOLYSIS 6; POTASSIUM 4.8 mEQ/L (3.4-4.9); SODIUM 146 mEQ/L (135-145)
[2016-09-28 11:58] LABS: ANISOCYTOSIS 1+; BAND NEUTROPHILS % (MANUAL) 0 % (0-8); BASOPHILS % (MANUAL) 0 % (0-2); EOSINOPHILS % (MANUAL) 18 % (0-3); HYPOCHROMASIA 2+; LYMPHOCYTES % (MANUAL) 35 % (20-45); NEUTROPHILS % (MANUAL) 40 % (45-75); PLATELET ESTIMATE ADEQUATE; PLATELET MORPHOLOGY NORMAL; TOTAL CELLS COUNTED 100
[2016-09-28 12:00] LABS: SICKLE CELLS RARE
[2016-09-28 12:46] VITALS: BP 118/76
[2016-09-28 13:50] LABS: OTHERS PATHOLOGIST COMMENT
--- NOTE | 2016-09-28 15:20 | General Progress Note ---
Assessment/Plan Problem List: (1) Sickle cell crisis ICD Codes: D57.00 - Hb-SS disease with crisis, unspecified SNOMED: 548856343 (2) Intractable pain ICD Codes: R52 - Pain, unspecified SNOMED: 41684258 (3) Avascular necrosis of femur head, left ICD Codes: M87.052 - Idiopathic aseptic necrosis of left femur SNOMED: 248829276 (4) Avascular necrosis of femur head, right ICD Codes: M87.051 - Idiopathic aseptic necrosis of right femur SNOMED: 353048006 (5) Interstitial lung disease ICD Codes: J84.9 - Interstitial pulmonary disease, unspecified SNOMED: 18485101, 066214939 Status: stable Assessment/Plan - Hematology consulted, appreciate rec's - Transfuse 1U pRBC today given hgb 6.8 - Monitor cell counts - Continue hydroxyurea 500mg bid - Continue Folic acid - IVFs - O2 - Pain mgmt consulted, appreciate rec's - Will consult ortho per pt request given b/l hip pain w/ poor stance/gait DVT Prophylaxis: SCD Code Status: Full Hospital Classification Declaration: Based on this initial evaluation, and depending on the patient's clinical course, I anticipate that this patient will require hospitalization for 2-3 days for sickle cell crisis, and close respiratory/hemodynamic monitoring. Disposition: Once the patient is stable to leave the hospital, I anticipate the patient will likely be discharged to the following environment: home vs home w/ hh I spent 72 minutes on this patient's case, and 38 minutes were dedicated to counseling and/or care coordination. Discussed with patient/family, nursing staff, SW/CM, pulm, heme regarding clinical status, treatment course, and disposition planning. Time of note may not reflect time of encounter. Subjective Date patient seen: Sep 28, 2016 Time patient seen: 15:20 ROS Limited/Unobtainable: No Constitutional: Reports: no symptoms Cardiovascular: Reports: chest pain Respiratory: Reports: no symptoms Genitourinary: Reports: no symptoms 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: Reports: no symptoms Endocrine: Reports: no symptoms Hematologic/Lymphatic: Reports: no symptoms Allergies: Coded Allergies: AMPICILLIN (Verified Allergy, Unknown, 08/03/16) KETOROLAC (Verified Allergy, Unknown, 08/03/16) MORPHINE (Verified Allergy, Unknown, 08/03/16) PHENYTOIN (Verified Allergy, Unknown, 08/03/16) All Systems: reviewed and negative except above Subjective Somnolent but arousable Cont to c/o pain though states controlled w/ current regimen Pt requests ortho consult given b/l hip pain w/ poor stance/gait Objective Last 24 Hour Vital Signs Date Time Temp Pulse Resp B/P Pulse Ox O2 Delivery O2 Flow Rate FiO2 09/28/16 12:59 98.2 09/28/16 12:46 98.2 106 20 118/76 93 Nasal Cannula 4.0 09/28/16 08:00 97.0 84 22 124/89 94 Room Air 09/28/16 07:30 84 20 Nasal Cannula 3.0 32 09/28/16 00:47 98.2 79 19 125/80 99 Nasal Cannula 09/27/16 20:39 80 20 Nasal Cannula 3.0 09/27/16 20:00 98.1 86 19 129/79 95 Room Air 09/27/16 16:44 97.9 74 18 131/78 92 Nasal Cannula 5.0 Intake and Output 09/27/16 09/28/16 19:00 07:00 Intake Total 960 ml 1140 ml Output Total 1900 ml 1525 ml Balance -940 ml -385 ml Intake Oral 960 ml 240 ml IV Total 900 ml Output Urine Total 1900 ml 1525 ml Laboratory Tests 09/28/16 10:00: White Blood Count 15.9H, Red Blood Count 2.29L, Hemoglobin 6.9*L, Hematocrit 20.8L, Mean Corpuscular Volume 91, Mean Corpuscular Hemoglobin 30.1, Mean Corpuscular Hemoglobin Concent 33.1, Red Cell Distribution Width 18.2H, Platelet Count 370, Mean Platelet Volume 6.5, Neutrophils (%) (Auto) , Lymphocytes (%) (Auto) , Monocytes (%) (Auto) , Eosinophils (%) (Auto) , Basophils (%) (Auto) , Differential Total Cells Counted 100, Neutrophils % ( Manual) 40L, Lymphocytes % (Manual) 35, Monocytes % (Manual) 7, Eosinophils % ( Manual) 18H, Basophils % (Manual) 0, Band Neutrophils 0, Platelet Estimate Adequate, Platelet Morphology Normal, Polychromasia , Hypochromasia 2+, Anisocytosis 1+, Sickle Cells RareH, Sodium Level 146H, Potassium Level 4.8, Chloride Level 108H, Carbon Dioxide Level 30, Anion Gap 8, Blood Urea Nitrogen 19, Creatinine 0.8, Estimat Glomerular Filtration Rate > 60, Glucose Level 104, Calcium Level 8.7 Height (Feet): 5 Height (Inches): 9.00 Weight (Pounds): 156 Objective General: alert, cooperative, no distress, appears stated age Head: normocephalic, without obvious abnormality, atraumatic Eyes: conjunctivae/corneas clear. PERRL, EOM's intact Throat: lips, mucosa, and tongue normal. MMM Neck: supple, symmetrical, trachea midline, and no JVD Lungs: clear to auscultation bilaterally Heart: regular rate and rhythm, S1, S2 normal, no murmur, click, rub or gallop Abdomen: soft, non-tender, non-distended, bowel sounds normal; no masses or organomegaly Extremities: extremities normal, atraumatic, no cyanosis or edema Pulses: 2+ and symmetric Skin: skin color, texture, turgor normal; no rashes or lesions Neurologic: grossly normal, no focal deficits Jerri Samaniego M.D. Sep 28, 2016 15:20
[2016-09-28 16:30] VITALS: BP 120/83
[2016-09-28 23:47] VITALS: BP 131/83
[2016-09-29] MEDS: DiphenhydrAMINE 50mg/ml Inj IVP PRN ×5 (02:22→22:12)
[2016-09-29 04:00] VITALS: BP 119/76
--- NOTE | 2016-09-29 07:23 | General Progress Note ---
Assessment/Plan Assessment/Plan ASSESSMENT: 1. Sickle cell crisis with no evidence of acute chest syndrome. Know this patient very well from prior hospital admissions. Has been seen in past by pain service and had been on extraordinarily high doses of pain meds including methadone. Now retic count is low. On prior crisis has presented with elevated retic count. Hgb >7 goal, patient continues to be in pain at this time, on incentive spirometry. Bili is nml. He has a hx of noncompliance, has extremely high opiod tolerance. Also says will come in next week for appt to see me ( however, has a hx of noncompliance) 2. Thrombocytosis - due to reactive process 3. Leukocytosis due to reactive process from anemia 4 Avascular Necrosis of the hip 5. Pain from the sickle cell crisis 6. Pneumonia - being treated on abx RECOMMENDATIONS: - Monitor cell count - Continue hydroxyurea 500mg bid as well as folic acid - Check retic as daily - Pain management recs - DVT Prophylaxis with SCDs - Out patient Hematology follow up ( next wk, however patient with hx noncompliance) - staff Thank you, Marco Dutton MD Subjective Constitutional: Reports: no symptoms HEENT: Reports: no symptoms Cardiovascular: Reports: no symptoms Respiratory: Reports: no symptoms Gastrointestinal/Abdominal: Reports: no symptoms Genitourinary: Reports: no symptoms 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: Reports: no symptoms Endocrine: Reports: no symptoms Hematologic/Lymphatic: Reports: anemia Allergies: Coded Allergies: AMPICILLIN (Verified Allergy, Unknown, 08/03/16) KETOROLAC (Verified Allergy, Unknown, 08/03/16) MORPHINE (Verified Allergy, Unknown, 08/03/16) PHENYTOIN (Verified Allergy, Unknown, 08/03/16) Subjective stable, pain continues to persist, has seen Cj, says has been compliant on hydroxyurea Objective Last 24 Hour Vital Signs Date Time Temp Pulse Resp B/P Pulse Ox O2 Delivery O2 Flow Rate FiO2 09/29/16 04:00 97.9 98 22 119/76 99 Nasal Cannula 3.0 09/28/16 23:47 97.7 131 18 131/83 100 Nasal Cannula 3.0 09/28/16 19:35 98 Nasal Cannula 3.0 32 09/28/16 19:35 Nasal Cannula 3.0 32 09/28/16 19:34 89 20 Nasal Cannula 3.0 32 09/28/16 16:30 98.2 16 120/83 96 Nasal Cannula 6.0 09/28/16 12:59 98.2 09/28/16 12:46 98.2 106 20 118/76 93 Nasal Cannula 4.0 09/28/16 08:00 97.0 84 22 124/89 94 Room Air 09/28/16 07:30 84 20 Nasal Cannula 3.0 32 Intake and Output 09/28/16 09/29/16 19:00 07:00 Intake Total 1050 ml 1880 ml Output Total 1800 ml 2250 ml Balance -750 ml -370 ml Intake Oral 600 ml 980 ml IV Total 450 ml 900 ml Output Urine Total 1800 ml 2250 ml Laboratory Tests 09/28/16 10:00: White Blood Count 15.9H, Red Blood Count 2.29L, Hemoglobin 6.9*L, Hematocrit 20.8L, Mean Corpuscular Volume 91, Mean Corpuscular Hemoglobin 30.1, Mean Corpuscular Hemoglobin Concent 33.1, Red Cell Distribution Width 18.2H, Platelet Count 370, Mean Platelet Volume 6.5, Neutrophils (%) (Auto) , Lymphocytes (%) (Auto) , Monocytes (%) (Auto) , Eosinophils (%) (Auto) , Basophils (%) (Auto) , Differential Total Cells Counted 100, Neutrophils % ( Manual) 40L, Lymphocytes % (Manual) 35, Monocytes % (Manual) 7, Eosinophils % ( Manual) 18H, Basophils % (Manual) 0, Band Neutrophils 0, Platelet Estimate Adequate, Platelet Morphology Normal, Polychromasia , Hypochromasia 2+, Anisocytosis 1+, Sickle Cells RareH, Sodium Level 146H, Potassium Level 4.8, Chloride Level 108H, Carbon Dioxide Level 30, Anion Gap 8, Blood Urea Nitrogen 19, Creatinine 0.8, Estimat Glomerular Filtration Rate > 60, Glucose Level 104, Calcium Level 8.7 09/29/16 05:20: White Blood Count [Pending], Red Blood Count [Pending], Hemoglobin [Pending], Hematocrit [Pending], Mean Corpuscular Volume [Pending], Mean Corpuscular Hemoglobin [Pending], Mean Corpuscular Hemoglobin Concent [Pending], Red Cell Distribution Width [Pending], Platelet Count [Pending], Mean Platelet Volume [ Pending], Neutrophils (%) (Auto) [Pending], Lymphocytes (%) (Auto) [Pending], Monocytes (%) (Auto) [Pending], Eosinophils (%) (Auto) [Pending], Basophils (%) (Auto) [Pending] Height (Feet): 5 Height (Inches): 9.00 Weight (Pounds): 156 General Appearance: alert EENT: TMs normal Neck: supple Cardiovascular: normal rate Respiratory/Chest: lungs clear Abdomen: soft Extremities: non-tender Edema: 1+ Leg (L), 1+ Leg (R) Edema: mild edema Neurologic: alert Skin: warm/dry Marco Dutton Sep 29, 2016 07:23
[2016-09-29 07:28] LABS: MEAN CORPUSCULAR HEMOGLOBIN 31.2 PG (27.0-31.0); MEAN CORPUSCULAR HGB CONC 34.1 G/DL (32.0-36.0); MEAN CORPUSCULAR VOLUME 91 FL (80-99); MEAN PLATELET VOLUME 6.7 FL (6.5-10.1); PLATELET COUNT 357 K/UL (150-450); RED BLOOD COUNT 2.49 M/UL (4.70-6.10); RED CELL DISTRIBUTION WIDTH 17.8 % (11.6-14.8); WHITE BLOOD COUNT 18.7 K/UL (4.8-10.8)
[2016-09-29 08:20] VITALS: BP 155/78
[2016-09-29] MEDS: Hydroxyurea 500mg cap ORAL SCH ×2 (09:07→17:49)
[2016-09-29] MEDS: Vitamin A&D Oint 2oz Tube TOPIC SCH ×2 (09:08→20:51)
--- NOTE | 2016-09-29 09:10 | General Progress Note ---
Assessment/Plan Assessment/Plan (1) Intractable pain ICD Codes: R52 - Pain, unspecified SNOMED: 83305988 (2) Avascular necrosis of femur head, left ICD Codes: M87.052 - Idiopathic aseptic necrosis of left femur SNOMED: 398122318 (3) Sickle cell crisis ICD Codes: D57.00 - Hb-SS disease with crisis, unspecified SNOMED: 382673887 (4) Avascular necrosis of femur head, right ICD Codes: M87.051 - Idiopathic aseptic necrosis of right femur SNOMED: 401229564 Assessment/Plan Patient will be continue methadone and Dilaudid. Pt was d/w Dr. Perera and he concurred. Subjective Date patient seen: Sep 29, 2016 Time patient seen: 07:00 - am Allergies: Coded Allergies: AMPICILLIN (Verified Allergy, Unknown, 08/03/16) KETOROLAC (Verified Allergy, Unknown, 08/03/16) MORPHINE (Verified Allergy, Unknown, 08/03/16) PHENYTOIN (Verified Allergy, Unknown, 08/03/16) Subjective Constitutional: Reports: chills HEENT: Denies: blurred vision, double vision, ear discharge, ear pain, eye pain , mouth pain, mouth swelling, nose congestion, nose pain, tearing, throat pain, throat swelling Cardiovascular: Denies: chest pain, edema, irregular heart rate, lightheadedness, palpitations, syncope Respiratory: Denies: SOB at rest, SOB with excertion, cough, orthopnea, shortness of breath, sputum, stridor, wheezing Gastrointestinal/Abdominal: Denies: abdomen distended, abdominal pain, black stools, blood in stool, constipated, diarrhea, difficulty swallowing, nausea, poor appetite, poor fluid intake, rectal bleeding, tarry stools, vomiting Genitourinary: Denies: burning, discharge, flank pain, frequency, hematuria, incontinence, pain, urgency 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: Denies: anxiety, depressed, emotional problems, headache, numbness, paresthesia, pre-existing deficit, seizure, tingling, tremors, weakness Endocrine: Reports: other, Denies: excessive sweating, flushing, increased hunger, increased thirst, increased urine, intolerance to cold, intolerance to heat, unexplained weight gain, unexplained weight loss Hematologic/Lymphatic: Denies: anemia, easy bleeding, easy bruising Subjective Pts pain is unchanged and continues to use the medication for pain which reduces his pain Objective Last 24 Hour Vital Signs Date Time Temp Pulse Resp B/P Pulse Ox O2 Delivery O2 Flow Rate FiO2 09/29/16 08:20 97.0 86 20 155/78 95 Nasal Cannula 4.0 09/29/16 04:00 97.9 98 22 119/76 99 Nasal Cannula 3.0 09/28/16 23:47 97.7 131 18 131/83 100 Nasal Cannula 3.0 09/28/16 19:35 98 Nasal Cannula 3.0 32 09/28/16 19:35 Nasal Cannula 3.0 32 09/28/16 19:34 89 20 Nasal Cannula 3.0 32 09/28/16 16:30 98.2 16 120/83 96 Nasal Cannula 6.0 09/28/16 12:59 98.2 09/28/16 12:46 98.2 106 20 118/76 93 Nasal Cannula 4.0 Intake and Output 09/28/16 09/29/16 19:00 07:00 Intake Total 1050 ml 2030 ml Output Total 1800 ml 2250 ml Balance -750 ml -220 ml Intake Oral 600 ml 980 ml IV Total 450 ml 1050 ml Output Urine Total 1800 ml 2250 ml Laboratory Tests 09/28/16 10:00: White Blood Count 15.9H, Red Blood Count 2.29L, Hemoglobin 6.9*L, Hematocrit 20.8L, Mean Corpuscular Volume 91, Mean Corpuscular Hemoglobin 30.1, Mean Corpuscular Hemoglobin Concent 33.1, Red Cell Distribution Width 18.2H, Platelet Count 370, Mean Platelet Volume 6.5, Neutrophils (%) (Auto) , Lymphocytes (%) (Auto) , Monocytes (%) (Auto) , Eosinophils (%) (Auto) , Basophils (%) (Auto) , Differential Total Cells Counted 100, Neutrophils % ( Manual) 40L, Lymphocytes % (Manual) 35, Monocytes % (Manual) 7, Eosinophils % ( Manual) 18H, Basophils % (Manual) 0, Band Neutrophils 0, Platelet Estimate Adequate, Platelet Morphology Normal, Polychromasia , Hypochromasia 2+, Anisocytosis 1+, Sickle Cells RareH, Sodium Level 146H, Potassium Level 4.8, Chloride Level 108H, Carbon Dioxide Level 30, Anion Gap 8, Blood Urea Nitrogen 19, Creatinine 0.8, Estimat Glomerular Filtration Rate > 60, Glucose Level 104, Calcium Level 8.7 09/29/16 05:20: White Blood Count 18.7H, Red Blood Count 2.49L, Hemoglobin 7.8L, Hematocrit 22.8L, Mean Corpuscular Volume 91, Mean Corpuscular Hemoglobin 31.2H, Mean Corpuscular Hemoglobin Concent 34.1, Red Cell Distribution Width 17.8H, Platelet Count 357, Mean Platelet Volume 6.7, Neutrophils (%) (Auto) , Lymphocytes (%) (Auto) , Monocytes (%) (Auto) , Eosinophils (%) (Auto) , Basophils (%) (Auto) , Neutrophils % (Manual) [Pending], Lymphocytes % (Manual) [Pending], Platelet Estimate [Pending], Platelet Morphology [Pending] Height (Feet): 5 Height (Inches): 9.00 Weight (Pounds): 156 Objective General Appearance: no apparent distress, alert EENT: PERRL/EOMI, normal ENT inspection Neck: non-tender, normal alignment Cardiovascular: normal rate, regular rhythm Respiratory/Chest: decreased breath sounds Abdomen: non tender, soft Edema: no edema noted Arm (L), no edema noted Arm (R), no edema noted Leg (L), no edema noted Leg (R), no edema noted Pedal (L), no edema noted Pedal (R), no edema noted Generalized Neurologic: alert, oriented x 3 Skin: warm/dry ANTIONE PHILLIPS Sep 29, 2016 09:10
[2016-09-29 10:22] LABS: ANISOCYTOSIS 1+; BAND NEUTROPHILS % (MANUAL) 0 % (0-8); BASOPHILS % (MANUAL) 2 % (0-2); EOSINOPHILS % (MANUAL) 11 % (0-3); HYPOCHROMASIA 3+; LYMPHOCYTES % (MANUAL) 31 % (20-45); NEUTROPHILS % (MANUAL) 50 % (45-75); NUCLEATED RED BLOOD CELLS 2 /100 WBC; PLATELET ESTIMATE ADEQUATE; PLATELET MORPHOLOGY NORMAL; TOTAL CELLS COUNTED 100
[2016-09-29 12:35] VITALS: BP 128/72
[2016-09-29 13:00] VITALS: BP 120/72
[2016-09-29 16:00] VITALS: BP 109/69
[2016-09-29 16:17] LABS: PATH BLOOD SMEAR/OMC SENT TO PATHOLOGIST
[2016-09-29 20:00] VITALS: BP 138/62
--- NOTE | 2016-09-29 21:58 | General Progress Note ---
Assessment/Plan Problem List: (1) Sickle cell crisis ICD Codes: D57.00 - Hb-SS disease with crisis, unspecified SNOMED: 646470516 (2) Intractable pain ICD Codes: R52 - Pain, unspecified SNOMED: 98688153 (3) Avascular necrosis of femur head, left ICD Codes: M87.052 - Idiopathic aseptic necrosis of left femur SNOMED: 807374903 (4) Avascular necrosis of femur head, right ICD Codes: M87.051 - Idiopathic aseptic necrosis of right femur SNOMED: 881501679 (5) Interstitial lung disease ICD Codes: J84.9 - Interstitial pulmonary disease, unspecified SNOMED: 84600043, 389581736 Status: stable Assessment/Plan - Hematology consulted, appreciate rec's - s/p 1U pRBC on 09/28/16 - Monitor cell counts - Continue hydroxyurea 500mg bid - Continue Folic acid - IVFs - O2 - Pain mgmt consulted, appreciate rec's - Ortho consulted per pt request given b/l hip pain w/ poor stance/gait DVT Prophylaxis: SCD Code Status: Full Hospital Classification Declaration: Based on this initial evaluation, and depending on the patient's clinical course, I anticipate that this patient will require hospitalization for 1-2 days for sickle cell crisis, and close respiratory/hemodynamic monitoring. Disposition: Once the patient is stable to leave the hospital, I anticipate the patient will likely be discharged to the following environment: home vs home w/ hh I spent 72 minutes on this patient's case, and 38 minutes were dedicated to counseling and/or care coordination. Discussed with patient/family, nursing staff, SW/CM, pulm, heme regarding clinical status, treatment course, and disposition planning. Time of note may not reflect time of encounter. Subjective Date patient seen: Sep 29, 2016 Time patient seen: 18:00 Constitutional: Reports: no symptoms HEENT: Reports: no symptoms Cardiovascular: Reports: no symptoms Respiratory: Reports: no symptoms Gastrointestinal/Abdominal: Reports: no symptoms Genitourinary: Reports: no symptoms 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: Reports: no symptoms Endocrine: Reports: no symptoms Allergies: Coded Allergies: AMPICILLIN (Verified Allergy, Unknown, 08/03/16) KETOROLAC (Verified Allergy, Unknown, 08/03/16) MORPHINE (Verified Allergy, Unknown, 08/03/16) PHENYTOIN (Verified Allergy, Unknown, 08/03/16) All Systems: reviewed and negative except above Subjective Somnolent but arousable Cont to c/o pain though states controlled w/ current regimen Pt requests ortho consult given b/l hip pain w/ poor stance/gait Objective Last 24 Hour Vital Signs Date Time Temp Pulse Resp B/P Pulse Ox O2 Delivery O2 Flow Rate FiO2 09/29/16 18:49 96.2 09/29/16 18:19 96.2 09/29/16 16:00 96.2 69 16 109/69 97 Nasal Cannula 6.0 09/29/16 13:00 109 20 120/72 96 Nasal Cannula 2.0 109 09/29/16 12:35 98.0 102 20 128/72 95 Nasal Cannula 3.0 09/29/16 08:20 97.0 86 20 155/78 95 Nasal Cannula 4.0 09/29/16 07:30 73 18 Nasal Cannula 3.0 32 09/29/16 07:30 95 Nasal Cannula 3.0 32 09/29/16 07:30 Nasal Cannula 3.0 32 09/29/16 04:00 97.9 98 22 119/76 99 Nasal Cannula 3.0 09/28/16 23:47 97.7 131 18 131/83 100 Nasal Cannula 3.0 Intake and Output 09/28/16 09/29/16 19:00 07:00 Intake Total 1050 ml 2030 ml Output Total 1800 ml 2250 ml Balance -750 ml -220 ml Intake Oral 600 ml 980 ml IV Total 450 ml 1050 ml Output Urine Total 1800 ml 2250 ml Laboratory Tests 09/29/16 05:20: White Blood Count 18.7H, Red Blood Count 2.49L, Hemoglobin 7.8L, Hematocrit 22.8L, Mean Corpuscular Volume 91, Mean Corpuscular Hemoglobin 31.2H, Mean Corpuscular Hemoglobin Concent 34.1, Red Cell Distribution Width 17.8H, Platelet Count 357, Mean Platelet Volume 6.7, Neutrophils (%) (Auto) , Lymphocytes (%) (Auto) , Monocytes (%) (Auto) , Eosinophils (%) (Auto) , Basophils (%) (Auto) , Differential Total Cells Counted 100, Neutrophils % ( Manual) 50, Lymphocytes % (Manual) 31, Monocytes % (Manual) 6, Eosinophils % ( Manual) 11H, Basophils % (Manual) 2, Band Neutrophils 0, Nucleated Red Blood Cells 2, Platelet Estimate Adequate, Platelet Morphology Normal, Hypochromasia 3 +, Anisocytosis 1+ Height (Feet): 5 Height (Inches): 9.00 Weight (Pounds): 156 Objective General: alert, cooperative, no distress, appears stated age Head: normocephalic, without obvious abnormality, atraumatic Eyes: conjunctivae/corneas clear. PERRL, EOM's intact Throat: lips, mucosa, and tongue normal. MMM Neck: supple, symmetrical, trachea midline, and no JVD Lungs: clear to auscultation bilaterally Heart: regular rate and rhythm, S1, S2 normal, no murmur, click, rub or gallop Abdomen: soft, non-tender, non-distended, bowel sounds normal; no masses or organomegaly Extremities: extremities normal, atraumatic, no cyanosis or edema Pulses: 2+ and symmetric Skin: skin color, texture, turgor normal; no rashes or lesions Neurologic: grossly normal, no focal deficits Jerri Samaniego M.D. Sep 29, 2016 21:58
[2016-09-30] VITALS: BP 139/93
[2016-09-30] MEDS: DiphenhydrAMINE 50mg/ml Inj IVP PRN ×6 (02:03→22:31)
[2016-09-30 04:00] VITALS: BP 127/81
[2016-09-30 07:37] LABS: MEAN CORPUSCULAR HEMOGLOBIN 30.5 PG (27.0-31.0); MEAN CORPUSCULAR HGB CONC 32.6 G/DL (32.0-36.0); MEAN CORPUSCULAR VOLUME 94 FL (80-99); MEAN PLATELET VOLUME 6.8 FL (6.5-10.1); PLATELET COUNT 298 K/UL (150-450); RED BLOOD COUNT 2.31 M/UL (4.70-6.10); RED CELL DISTRIBUTION WIDTH 17.5 % (11.6-14.8); WHITE BLOOD COUNT 18.1 K/UL (4.8-10.8)
[2016-09-30 07:44] LABS: ANION GAP 8 (5-15); CALCIUM 9.2 mg/dL (8.6-10.2); CARBON DIOXIDE 32 mEQ/L (20-30); CHLORIDE 107 mEQ/L (98-107); CREATININE 0.8 mg/dL (0.7-1.2); GLOMERULAR FILTRATION RATE > 60 mL/min (>60); HEMOLYSIS 5; POTASSIUM 4.9 mEQ/L (3.4-4.9); SODIUM 147 mEQ/L (135-145)
[2016-09-30 08:00] VITALS: BP 140/90
[2016-09-30] MEDS: Hydroxyurea 500mg cap ORAL SCH ×2 (09:00→17:49)
[2016-09-30] MEDS: Vitamin A&D Oint 2oz Tube TOPIC SCH ×2 (09:27→21:00)
--- NOTE | 2016-09-30 10:23 | General Progress Note ---
Assessment/Plan Assessment/Plan (1) Intractable pain ICD Codes: R52 - Pain, unspecified SNOMED: 68312510 (2) Avascular necrosis of femur head, left ICD Codes: M87.052 - Idiopathic aseptic necrosis of left femur SNOMED: 624581216 (3) Sickle cell crisis ICD Codes: D57.00 - Hb-SS disease with crisis, unspecified SNOMED: 513306225 (4) Avascular necrosis of femur head, right ICD Codes: M87.051 - Idiopathic aseptic necrosis of right femur SNOMED: 922595037 Assessment/Plan Patient will be continue methadone and Dilaudid. RX in anticipation for discharge was written for Dilaudid 4mg 60 tabs and Methadone 10mg 90 tabs. He will consult with pain specialist next week. Pt was d/w Dr. Perera and he concurred. Subjective Date patient seen: Sep 30, 2016 Time patient seen: 08:00 - am Allergies: Coded Allergies: AMPICILLIN (Verified Allergy, Unknown, 08/03/16) KETOROLAC (Verified Allergy, Unknown, 08/03/16) MORPHINE (Verified Allergy, Unknown, 08/03/16) PHENYTOIN (Verified Allergy, Unknown, 08/03/16) Subjective Constitutional: Reports: chills HEENT: Denies: blurred vision, double vision, ear discharge, ear pain, eye pain , mouth pain, mouth swelling, nose congestion, nose pain, tearing, throat pain, throat swelling Cardiovascular: Denies: chest pain, edema, irregular heart rate, lightheadedness, palpitations, syncope Respiratory: Denies: SOB at rest, SOB with excertion, cough, orthopnea, shortness of breath, sputum, stridor, wheezing Gastrointestinal/Abdominal: Denies: abdomen distended, abdominal pain, black stools, blood in stool, constipated, diarrhea, difficulty swallowing, nausea, poor appetite, poor fluid intake, rectal bleeding, tarry stools, vomiting Genitourinary: Denies: burning, discharge, flank pain, frequency, hematuria, incontinence, pain, urgency 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: Denies: anxiety, depressed, emotional problems, headache, numbness, paresthesia, pre-existing deficit, seizure, tingling, tremors, weakness Endocrine: Reports: other, Denies: excessive sweating, flushing, increased hunger, increased thirst, increased urine, intolerance to cold, intolerance to heat, unexplained weight gain, unexplained weight loss Hematologic/Lymphatic: Denies: anemia, easy bleeding, easy bruising Subjective The pain has been tolerated on the medications. He is doing better and is looking forward to being discharged. He says he has found a pain specialist who he will consult with as an out pt next week. Objective Last 24 Hour Vital Signs Date Time Temp Pulse Resp B/P Pulse Ox O2 Delivery O2 Flow Rate FiO2 09/30/16 08:00 98.5 99 20 140/90 95 Nasal Cannula 3.0 09/30/16 04:00 98.2 94 20 127/81 95 Nasal Cannula 3.0 09/30/16 00:00 98.6 100 18 139/93 95 Nasal Cannula 09/29/16 22:42 97.9 09/29/16 20:00 97.9 129 18 138/62 90 Nasal Cannula 6.0 09/29/16 19:25 94 Nasal Cannula 3.0 32 09/29/16 19:25 Nasal Cannula 3.0 32 09/29/16 19:22 82 18 Nasal Cannula 3.0 32 09/29/16 18:49 96.2 09/29/16 18:19 96.2 09/29/16 16:00 96.2 69 16 109/69 97 Nasal Cannula 6.0 09/29/16 13:00 109 20 120/72 96 Nasal Cannula 2.0 109 09/29/16 12:35 98.0 102 20 128/72 95 Nasal Cannula 3.0 Intake and Output 09/29/16 09/30/16 19:00 07:00 Intake Total 1325 ml 1340 ml Output Total 1500 ml 2100 ml Balance -175 ml -760 ml Intake Oral 740 ml IV Total 1325 ml 600 ml Output Urine Total 1500 ml 2100 ml Laboratory Tests 09/30/16 06:00: White Blood Count 18.1H, Red Blood Count 2.31L, Hemoglobin 7.0L, Hematocrit 21.6L, Mean Corpuscular Volume 94, Mean Corpuscular Hemoglobin 30.5, Mean Corpuscular Hemoglobin Concent 32.6, Red Cell Distribution Width 17.5H, Platelet Count 298, Mean Platelet Volume 6.8, Neutrophils (%) (Auto) , Lymphocytes (%) (Auto) , Monocytes (%) (Auto) , Eosinophils (%) (Auto) , Basophils (%) (Auto) , Neutrophils % (Manual) [Pending], Lymphocytes % (Manual) [Pending], Platelet Estimate [Pending], Platelet Morphology [Pending], Reticulocyte Count [Pending], Sodium Level 147H, Potassium Level 4.9, Chloride Level 107, Carbon Dioxide Level 32H, Anion Gap 8, Blood Urea Nitrogen 16, Creatinine 0.8, Estimat Glomerular Filtration Rate > 60, Glucose Level 82, Calcium Level 9.2 Height (Feet): 5 Height (Inches): 9.00 Weight (Pounds): 156 Objective General Appearance: no apparent distress, alert EENT: PERRL/EOMI, normal ENT inspection Neck: non-tender, normal alignment Cardiovascular: normal rate, regular rhythm Respiratory/Chest: decreased breath sounds Abdomen: non tender, soft Edema: no edema noted Arm (L), no edema noted Arm (R), no edema noted Leg (L), no edema noted Leg (R), no edema noted Pedal (L), no edema noted Pedal (R), no edema noted Generalized Neurologic: alert, oriented x 3 Skin: warm/dry ANTIONE PHILLIPS Sep 30, 2016 10:23
[2016-09-30 11:13] LABS: ANISOCYTOSIS 1+; BAND NEUTROPHILS % (MANUAL) 0 % (0-8); BASOPHILS % (MANUAL) 0 % (0-2); EOSINOPHILS % (MANUAL) 10 % (0-3); HYPOCHROMASIA 1+; LYMPHOCYTES % (MANUAL) 22 % (20-45); NEUTROPHILS % (MANUAL) 63 % (45-75); NUCLEATED RED BLOOD CELLS 3 /100 WBC; PLATELET ESTIMATE ADEQUATE; PLATELET MORPHOLOGY NORMAL; TOTAL CELLS COUNTED 100
[2016-09-30 11:14] LABS: SICKLE CELLS RARE
[2016-09-30 12:16] VITALS: BP 136/87
[2016-09-30 16:00] VITALS: BP 132/53
--- NOTE | 2016-09-30 19:44 | General Progress Note ---
Assessment/Plan Problem List: (1) Sickle cell crisis ICD Codes: D57.00 - Hb-SS disease with crisis, unspecified SNOMED: 667432102 (2) Intractable pain ICD Codes: R52 - Pain, unspecified SNOMED: 94873408 (3) Avascular necrosis of femur head, left ICD Codes: M87.052 - Idiopathic aseptic necrosis of left femur SNOMED: 767349561 (4) Avascular necrosis of femur head, right ICD Codes: M87.051 - Idiopathic aseptic necrosis of right femur SNOMED: 400074632 (5) Interstitial lung disease ICD Codes: J84.9 - Interstitial pulmonary disease, unspecified SNOMED: 74329077, 950232542 (6) Leukocytosis ICD Codes: D72.829 - Elevated white blood cell count, unspecified SNOMED: 865615771, 780930443 Status: stable Assessment/Plan - Hematology consulted, appreciate rec's - s/p 1U pRBC on 09/28/16 - Monitor cell counts - Leukocytosis likely reactive. Monitor for signs of infection - Continue hydroxyurea 500mg bid - Continue Folic acid - IVFs - O2 - Pain mgmt consulted, appreciate rec's - Ortho consulted per pt request given b/l hip pain w/ poor stance/gait-- recommends b/l ZECHARIAH. Will need outpt f/u DVT Prophylaxis: SCD Code Status: Full Hospital Classification Declaration: Based on this initial evaluation, and depending on the patient's clinical course, I anticipate that this patient will require hospitalization for 1-2 days for sickle cell crisis, and close respiratory/hemodynamic monitoring. Disposition: Once the patient is stable to leave the hospital, I anticipate the patient will likely be discharged to the following environment: home vs home w/ hh I spent 40 minutes on this patient's case, and 22 minutes were dedicated to counseling and/or care coordination. Discussed with patient/family, nursing staff, SW/CM, pulm, heme regarding clinical status, treatment course, and disposition planning. Time of note may not reflect time of encounter. Subjective Date patient seen: Sep 30, 2016 Time patient seen: 15:00 ROS Limited/Unobtainable: No Constitutional: Reports: no symptoms HEENT: Reports: no symptoms Cardiovascular: Reports: no symptoms Respiratory: Reports: no symptoms Gastrointestinal/Abdominal: Reports: no symptoms Genitourinary: Reports: no symptoms 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: Reports: no symptoms Endocrine: Reports: no symptoms Hematologic/Lymphatic: Reports: no symptoms Allergies: Coded Allergies: AMPICILLIN (Verified Allergy, Unknown, 08/03/16) KETOROLAC (Verified Allergy, Unknown, 08/03/16) MORPHINE (Verified Allergy, Unknown, 08/03/16) PHENYTOIN (Verified Allergy, Unknown, 08/03/16) All Systems: reviewed and negative except above Subjective Pain improving Hgb 7 WBC still elevated at 18--d/w heme/onc likely reactive leukocytosis. Clinically no sign of infection Seen by ortho who recommends b/l ZECHARIAH. Pt needs to f/u outpt Objective Last 24 Hour Vital Signs Date Time Temp Pulse Resp B/P Pulse Ox O2 Delivery O2 Flow Rate FiO2 09/30/16 19:35 Nasal Cannula 4.0 36 09/30/16 19:34 97 Nasal Cannula 4.0 36 09/30/16 19:34 95 18 Nasal Cannula 4.0 36 09/30/16 16:00 97.9 101 18 132/53 93 Nasal Cannula 4.0 09/30/16 15:05 98.7 09/30/16 13:50 98.7 09/30/16 12:16 98.7 98 19 136/87 94 Nasal Cannula 3.0 09/30/16 08:00 98.5 99 20 140/90 95 Nasal Cannula 3.0 09/30/16 07:25 95 Nasal Cannula 3.0 32 09/30/16 07:25 98 20 Nasal Cannula 3.0 32 09/30/16 07:25 Nasal Cannula 3.0 32 09/30/16 04:00 98.2 94 20 127/81 95 Nasal Cannula 3.0 09/30/16 00:00 98.6 100 18 139/93 95 Nasal Cannula 09/29/16 22:42 97.9 09/29/16 20:00 97.9 129 18 138/62 90 Nasal Cannula 6.0 Intake and Output 09/29/16 09/30/16 19:00 07:00 Intake Total 1325 ml 1340 ml Output Total 1500 ml 2100 ml Balance -175 ml -760 ml Intake Oral 740 ml IV Total 1325 ml 600 ml Output Urine Total 1500 ml 2100 ml Laboratory Tests 09/30/16 06:00: White Blood Count 18.1H, Red Blood Count 2.31L, Hemoglobin 7.0L, Hematocrit 21.6L, Mean Corpuscular Volume 94, Mean Corpuscular Hemoglobin 30.5, Mean Corpuscular Hemoglobin Concent 32.6, Red Cell Distribution Width 17.5H, Platelet Count 298, Mean Platelet Volume 6.8, Neutrophils (%) (Auto) , Lymphocytes (%) (Auto) , Monocytes (%) (Auto) , Eosinophils (%) (Auto) , Basophils (%) (Auto) , Differential Total Cells Counted 100, Neutrophils % ( Manual) 63, Lymphocytes % (Manual) 22, Monocytes % (Manual) 5, Eosinophils % ( Manual) 10H, Basophils % (Manual) 0, Band Neutrophils 0, Nucleated Red Blood Cells 3, Platelet Estimate Adequate, Platelet Morphology Normal, Hypochromasia 1 +, Anisocytosis 1+, Sickle Cells RareH, Reticulocyte Count 1.1, Sodium Level 147H, Potassium Level 4.9, Chloride Level 107, Carbon Dioxide Level 32H, Anion Gap 8, Blood Urea Nitrogen 16, Creatinine 0.8, Estimat Glomerular Filtration Rate > 60, Glucose Level 82, Calcium Level 9.2 Height (Feet): 5 Height (Inches): 9.00 Weight (Pounds): 156 Objective General: alert, cooperative, no distress, appears stated age Head: normocephalic, without obvious abnormality, atraumatic Eyes: conjunctivae/corneas clear. PERRL, EOM's intact Throat: lips, mucosa, and tongue normal. MMM Neck: supple, symmetrical, trachea midline, and no JVD Lungs: clear to auscultation bilaterally Heart: regular rate and rhythm, S1, S2 normal, no murmur, click, rub or gallop Abdomen: soft, non-tender, non-distended, bowel sounds normal; no masses or organomegaly Extremities: extremities normal, atraumatic, no cyanosis or edema Pulses: 2+ and symmetric Skin: skin color, texture, turgor normal; no rashes or lesions Neurologic: grossly normal, no focal deficits Jerri Samaniego M.D. Sep 30, 2016 19:44
[2016-09-30 21:00] VITALS: BP 138/81
--- NOTE | 2016-09-30 21:36 | General Progress Note ---
Assessment/Plan Assessment/Plan Assessment/Plan ASSESSMENT: 1. Sickle cell crisis with no evidence of acute chest syndrome. Know this patient very well from prior hospital admissions. Has been seen in past by pain service and had been on extraordinarily high doses of pain meds including methadone. Now retic count is low. On prior crisis has presented with elevated retic count. Hgb >7 goal, patient continues to be in pain at this time, on incentive spirometry. Bili is nml. He has a hx of noncompliance, has extremely high opiod tolerance. Also says will come in next week for appt to see me ( however, has a hx of noncompliance) 2. Thrombocytosis - due to reactive process 3. Leukocytosis due to reactive process from anemia 4 Avascular Necrosis of the hip 5. Pain from the sickle cell crisis 6. Pneumonia - being treated on abx RECOMMENDATIONS: - Monitor cell count - Continue hydroxyurea 500mg bid as well as folic acid - Check retic as daily - Pain management recs - DVT Prophylaxis with SCDs - Out patient Hematology follow up (Tues next wk, however patient with hx noncompliance) - staff Thank you, Abundio Dutton MD Subjective Constitutional: Reports: no symptoms HEENT: Reports: no symptoms Cardiovascular: Reports: no symptoms Respiratory: Reports: no symptoms Gastrointestinal/Abdominal: Reports: no symptoms Genitourinary: Reports: no symptoms 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: Reports: no symptoms Endocrine: Reports: no symptoms Hematologic/Lymphatic: Reports: no symptoms Allergies: Coded Allergies: AMPICILLIN (Verified Allergy, Unknown, 08/03/16) KETOROLAC (Verified Allergy, Unknown, 08/03/16) MORPHINE (Verified Allergy, Unknown, 08/03/16) PHENYTOIN (Verified Allergy, Unknown, 08/03/16) Objective Last 24 Hour Vital Signs Date Time Temp Pulse Resp B/P Pulse Ox O2 Delivery O2 Flow Rate FiO2 09/30/16 21:00 97.7 100 18 138/81 96 Nasal Cannula 4.0 09/30/16 19:35 Nasal Cannula 4.0 36 09/30/16 19:34 97 Nasal Cannula 4.0 36 09/30/16 19:34 95 18 Nasal Cannula 4.0 36 09/30/16 16:00 97.9 101 18 132/53 93 Nasal Cannula 4.0 09/30/16 15:05 98.7 09/30/16 13:50 98.7 09/30/16 12:16 98.7 98 19 136/87 94 Nasal Cannula 3.0 09/30/16 08:00 98.5 99 20 140/90 95 Nasal Cannula 3.0 09/30/16 07:25 95 Nasal Cannula 3.0 32 09/30/16 07:25 98 20 Nasal Cannula 3.0 32 09/30/16 07:25 Nasal Cannula 3.0 32 09/30/16 04:00 98.2 94 20 127/81 95 Nasal Cannula 3.0 09/30/16 00:00 98.6 100 18 139/93 95 Nasal Cannula 09/29/16 22:42 97.9 Intake and Output 09/29/16 09/30/16 19:00 07:00 Intake Total 1325 ml 1340 ml Output Total 1500 ml 2100 ml Balance -175 ml -760 ml Intake Oral 740 ml IV Total 1325 ml 600 ml Output Urine Total 1500 ml 2100 ml Laboratory Tests 09/30/16 06:00: White Blood Count 18.1H, Red Blood Count 2.31L, Hemoglobin 7.0L, Hematocrit 21.6L, Mean Corpuscular Volume 94, Mean Corpuscular Hemoglobin 30.5, Mean Corpuscular Hemoglobin Concent 32.6, Red Cell Distribution Width 17.5H, Platelet Count 298, Mean Platelet Volume 6.8, Neutrophils (%) (Auto) , Lymphocytes (%) (Auto) , Monocytes (%) (Auto) , Eosinophils (%) (Auto) , Basophils (%) (Auto) , Differential Total Cells Counted 100, Neutrophils % ( Manual) 63, Lymphocytes % (Manual) 22, Monocytes % (Manual) 5, Eosinophils % ( Manual) 10H, Basophils % (Manual) 0, Band Neutrophils 0, Nucleated Red Blood Cells 3, Platelet Estimate Adequate, Platelet Morphology Normal, Hypochromasia 1 +, Anisocytosis 1+, Sickle Cells RareH, Reticulocyte Count 1.1, Sodium Level 147H, Potassium Level 4.9, Chloride Level 107, Carbon Dioxide Level 32H, Anion Gap 8, Blood Urea Nitrogen 16, Creatinine 0.8, Estimat Glomerular Filtration Rate > 60, Glucose Level 82, Calcium Level 9.2 Height (Feet): 5 Height (Inches): 9.00 Weight (Pounds): 156 General Appearance: no apparent distress EENT: TMs normal Neck: non-tender Cardiovascular: regular rhythm Abdomen: soft Extremities: non-tender Edema: no edema noted Arm (L), no edema noted Arm (R), no edema noted Leg (L), no edema noted Leg (R), no edema noted Pedal (L), no edema noted Pedal (R), no edema noted Generalized Neurologic: alert Skin: warm/dry Lymphatic: normal anterior cervical (L), normal anterior cervical (R), normal axillary (L), normal axillary (R), normal inguinal (L), normal inguinal (R), normal other, normal posterior cervical (L), normal posterior cervical (R), normal submandibular (L), normal submandibular (R), normal supraclavicular (L), normal supraclavicular (R) ALFREDO DUTTON Sep 30, 2016 21:36
[2016-10-01] VITALS: BP 125/86
[2016-10-01 04:00] VITALS: BP 144/96
[2016-10-01] MEDS: DiphenhydrAMINE 50mg/ml Inj IVP PRN ×2 (04:39→10:36)
[2016-10-01 08:00] VITALS: BP 135/90
[2016-10-01] MEDS: Vitamin A&D Oint 2oz Tube TOPIC SCH (09:00)
[2016-10-01] MEDS: Hydroxyurea 500mg cap ORAL SCH (10:35)
--- NOTE | 2016-10-02 22:21 | General Progress Note ---
Assessment/Plan Assessment/Plan Assessment/Plan ASSESSMENT: 1. Sickle cell crisis with no evidence of acute chest syndrome. Know this patient very well from prior hospital admissions. Has been seen in past by pain service and had been on extraordinarily high doses of pain meds including methadone. Now retic count is low. On prior crisis has presented with elevated retic count. Hgb >7 goal, patient continues to be in pain at this time, on incentive spirometry. Bili is nml. He has a hx of noncompliance, has extremely high opiod tolerance. Also says will come in next week for appt to see me ( however, has a hx of noncompliance) 2. Thrombocytosis - due to reactive process 3. Leukocytosis due to reactive process from anemia 4 Avascular Necrosis of the hip 5. Pain from the sickle cell crisis 6. Pneumonia - being treated on abx RECOMMENDATIONS: - Monitor cell count - Continue hydroxyurea 500mg bid as well as folic acid - Check retic as daily - Pain management recs - DVT Prophylaxis with SCDs - Outpatient Hematology follow up (Tues next wk, however patient with hx noncompliance) - staff Thank you, Abunido Dutton MD Subjective Date patient seen: Oct 01, 2016 Constitutional: Reports: no symptoms HEENT: Reports: no symptoms Cardiovascular: Reports: no symptoms Respiratory: Reports: no symptoms Gastrointestinal/Abdominal: Reports: no symptoms Genitourinary: Reports: no symptoms 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: Reports: no symptoms Endocrine: Reports: no symptoms Hematologic/Lymphatic: Reports: anemia Allergies: Coded Allergies: AMPICILLIN (Verified Allergy, Unknown, 08/03/16) KETOROLAC (Verified Allergy, Unknown, 08/03/16) MORPHINE (Verified Allergy, Unknown, 08/03/16) PHENYTOIN (Verified Allergy, Unknown, 08/03/16) Subjective stable, no events overnight, to be discharged later Objective Intake and Output 10/01/16 10/02/16 19:00 07:00 Intake Total 175 ml Balance 175 ml IV Total 175 ml Height (Feet): 5 Height (Inches): 9.00 Weight (Pounds): 156 General Appearance: no apparent distress EENT: pharynx normal Neck: supple Cardiovascular: regular rhythm Respiratory/Chest: no respiratory distress Abdomen: non tender Extremities: non-tender Edema: 1+ Leg (L), 1+ Leg (R) Edema: mild edema Neurologic: no motor/sensory deficits Skin: warm/dry ALFREDO DUTTON Oct 02, 2016 22:21
--- NOTE | 2016-10-03 08:27 | Discharge Summary ---
Discharge Summary Hospital Course Date of Admission Sep 26, 2016 at 17:12 Date of Discharge Oct 01, 2016 at 12:00 Admitting Diagnosis sickle cell crisis ALETHEA Barrett is a 40 year old male who was admitted on Sep 26, 2016 at 17:12 for Sickle Cell Crisis Hospital Course dc summary # [id number] Discharge Medications Continued Medications: Diphenhydramine HCl (Benadryl) 25 Mg Capsule 50 MG PO Q4HR PRN for Itching, CAP Folic Acid* (Folic Acid*) 1 Mg Tablet 1 MG ORAL DAILY, TAB Gabapentin* (Gabapentin*) 400 Mg Capsule 500 MG ORAL THREE TIMES A DAY, CAP 0 Refills Hydromorphone HCl (Dilaudid) 4 Mg Tablet 4 MG ORAL Q6HR PRN for prn, #60 TAB 0 Refills Hydroxyurea* (Hydrea*) 500 Mg Capsule 500 MG PO BID, CAP Methadone Hcl* (Methadone*) 10 Mg Tablet 10 MG PO Q6HR, #90 TAB 0 Refills Discontinued Medications: Hydromorphone Hcl (Dilaudid) 1 Mg/1 Ml Liquid 4 MG PO Q6HR PRN for prn , #60 ML Levofloxacin* (Levaquin*) 500 Mg Tablet 500 MG ORAL DAILY, #30 TAB Discharge Condition Upon Discharge: stable Discharge Disposition Patient was discharged to Home () Discharge Diagnoses: Discharge Instructions Discharge Instructions Special Instructions I have been assigned to complete a D/C Summary on this account. I was not involved in the patient management Mikayla Camara NP ([facility]anchte[place]) Oct 03, 2016 08:27
--- NOTE | 2016-10-03 16:24 | Discharge Summary ---
Discharge Summary Hospital Course Date of Admission Sep 26, 2016 at 17:12 Date of Discharge Oct 01, 2016 at 12:00 Date of service 10/01/16. Admitting Diagnosis sickle cell crisis ALETHEA Barrett is a 40 year old male who was admitted on Sep 26, 2016 at 17:12 for Sickle Cell Crisis. Pt received one unit PRBC transfusion, IVF for hydration , and was continued on hydroxyurea & folic acid. Pain was controlled w/ IV opiates. Pts pain improved and serial blood draws showed stable hb. Transitioned to po pain meds. Followed in house by hematology, pain management. Was evaluated by orthopedic surgery for bilateral hip pain and bl ZECHARIAH was recommended once pt stable for surgery. Discharge Medications Continued Medications: Diphenhydramine HCl (Benadryl) 25 Mg Capsule 50 MG PO Q4HR PRN for Itching, CAP Folic Acid* (Folic Acid*) 1 Mg Tablet 1 MG ORAL DAILY, TAB Gabapentin* (Gabapentin*) 400 Mg Capsule 500 MG ORAL THREE TIMES A DAY, CAP 0 Refills Hydromorphone HCl (Dilaudid) 4 Mg Tablet 4 MG ORAL Q6HR PRN for prn, #60 TAB 0 Refills Hydroxyurea* (Hydrea*) 500 Mg Capsule 500 MG PO BID, CAP Methadone Hcl* (Methadone*) 10 Mg Tablet 10 MG PO Q6HR, #90 TAB 0 Refills Discontinued Medications: Hydromorphone Hcl (Dilaudid) 1 Mg/1 Ml Liquid 4 MG PO Q6HR PRN for prn , #60 ML Levofloxacin* (Levaquin*) 500 Mg Tablet 500 MG ORAL DAILY, #30 TAB Discharge Condition Upon Discharge: stable Discharge Disposition Patient was discharged to Home () Discharge Diagnoses: (1) Avascular necrosis of femur head, right (2) Avascular necrosis of femur head, left (3) Sickle cell crisis (4) Intractable pain Discharge Instructions Discharge Instructions Follow up with: PCP, Hematology, Orthopedic surgery Diet: regular Activity: as tolerated Joe Dalton MD Oct 03, 2016 16:24
--- NOTE | 2016-10-04 03:38 | Discharge Summary 2 SIG ---
DATE OF ADMISSION: 09/26/2016 DATE OF DISCHARGE: 10/01/2016 REASON FOR ADMISSION: 40-year-old male with history of sickle cell disease, asthma, avascular necrosis, and chronic pain syndrome with opioid dependency, presented to the emergency department with increased pain. The patient reported that symptoms were characteristic of his typical sickle cell crisis flare up. He also reported increased nausea, vomiting, and pain in the lower back, hips, and chest. He denied fever, chills, shortness of breath, cough, abdominal pain, or diarrhea. The patient was admitted for management of a sickle cell crisis. ADMITTING DIAGNOSES: 1. Sickle cell crisis. 2. Avascular necrosis of the right femoral head. 3. Avascular necrosis of the left femoral head. 4. Interstitial lung disease/asthma. 5. Intractable pain. HISTORY OF STAY: The patient was admitted to medical/surgical floor. The patient was started on generous IV fluids. Supplemental oxygen and pulmonary toilet provided as needed. No evidence of asthma exacerbation. Hematology consult was requested. Hydroxyurea and folic acid were continued. Pain management was provided. Technical Services Rep was followed the patient closely. Per web site developer, the patient had no evidence of acute chest syndrome. He was recommended transfusion if hemoglobin below 7. The patient was noted to have leukocytosis. Per web site developer, leukocytosis was likely due to the reactive process of anemia. However, patient with occasional cough, afebrile. Declined chest X ray to be done. Started on empiric antibiotics, s/p treatment for 5 days for presumed community acquired pneumonia. No cough, no congestion, no fevers. At one day, hemoglobin down to 6.9 and hematocrit -20.8. The patient was given one unit of packed red blood cells. DVT prophylaxis provided with sequential compression device. The patient was stable for discharge and follow up with the web site developer as an outpatient. Appointment set up prior to discharge. DISCHARGE DIAGNOSES: 1. Sickle cell crisis. 2. Anemia, status post blood transfusion. 3. Interstitial lung disease/asthma, no evidence of exacerbation. 4. Possible community acquired pneumonia 5. Avascular necrosis of the right femoral head. 6. Avascular necrosis of the left femoral head. 7. Intractable pain due to sickle cell crisis/pain crisis. DISCHARGE MEDICATIONS: See medication reconciliation list. DISCHARGE INSTRUCTIONS: The patient was discharged home. Follow up with the web site developer as an outpatient. Darcy Rollins M.D. I have been assigned to dictate discharge summary on this account and I was not involved in the patient's management. Mikayla Camara (Vanchtein) NShari DR: JOSE JOB#: [id number] CC: LELAND
--- NOTE | 2016-10-04 19:39 | Consultation ---
DATE OF CONSULTATION: 09/30/2016 ORTHOPEDIC CONSULTATION REFERRING PHYSICIAN: Darcy Rollins M.D. DIAGNOSIS: Bilateral hip collapse secondary to avascular necrosis. HISTORY OF PRESENT ILLNESS: The patient is a 40-year-old gentleman with significant past medical history for sickle cell disease and AVN. He has had considerable hardship from his disease. He was recently admitted for sickle cell crisis. He is currently improved, but has difficulty standing upright and taking normal steps because of bilateral hip pain, which has been present for the past 15 years. ALLERGIES: He has no known drug allergies. FAMILY HISTORY: No significant family history. PHYSICAL EXAMINATION: GENERAL: He is in moderate distress. He has a central line in place. Both feet are slightly deformed. He has very limited internal and external rotation in both hips. He is only able to extend to approximately -5 degrees on the right and -10 on the left. DIAGNOSTIC DATA: Bilateral hip radiographs taken in July 2016 reveals femoral head collapse secondary to avascular necrosis. 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 It is very painful for him. At some point, when he is medically optimized, he is welcome to follow up for hip arthroplasty. Thank you for the opportunity to consult. Artie Alvarez M.D. ([facility]) DR: CODY JOB#: [id number] CC: LELAND
== END 2016-10-01 12:00 | disposition home or self-care (01) | DRG 811 ==
LOC: EMR 17:10 → 3E 17:12 → EDBEDREQ 22:53 → 3E 09-27 04:44 → 4W 09-30 07:45 → 3E 09-30 08:20
PROC: 30233N1 Transfusion of Nonautologous Red Blood Cells into Peripheral Vein, Percutaneous Approach (ICD-10-PCS; principal; 2016-09-28)
DX: D57.00 Hb-SS disease with crisis, unspecified (principal); J18.9 Pneumonia, unspecified organism; J84.9 Interstitial pulmonary disease, unspecified; M87.851 Other osteonecrosis, right femur; M87.852 Other osteonecrosis, left femur; D64.9 Anemia, unspecified; D47.3 Essential (hemorrhagic) thrombocythemia; Z88.6 Allergy status to analgesic agent; Z88.8 Allergy status to other drugs, medicaments and biological substances; J45.909 Unspecified asthma, uncomplicated; Z91.19 Patient's noncompliance with other medical treatment and regimen
CPT/HCPCS: 36415; 80048; 80076; 83735; 85007; 85025; 85044; 85060; 86850; 86900; 86901; 86920; 87070; 87181; 87205; 94664; 94760

== ENCOUNTER 2016-10-25 14:41 | Inpatient (IN) | payer MEDICARE, OTHER ==
[~2016-10-25] VITALS: Ht 180.3 cm; Wt 69.4 kg
[2016-10-25 15:01] VITALS: BP 129/58
[2016-10-25] MEDS ORDERED: DiphenhydrAMINE 50mg/ml Inj IVP ONE ×2 (15:30→20:30)
--- NOTE | 2016-10-25 15:32 | Emergency Room Report ---
History of Present Illness General Chief Complaint: Pain Source: Patient Present Illness HPI The patient presents with chest pain and no extremity pain with edema. This is been going on for 3 days. His history of sickle cell. She's been taking Dilaudid 4 mg last dose was 6 hours ago and also methadone 10 mg. The pain is 9 /10 at this time constant. It's more pleuritic on the left-hand side of his chest. He has some shortness of breath. Also hasn't fevers or not documented also productive cough with some green phlegm. He has not been wheezing. The patient has a history of DVT in the past. He states that it was present in his legs. He has not been taking any anticoagulants at this time. The patient denies any nausea vomiting diarrhea change in his bowels dysuria. No skin rashes. He is on home O2. Allergies: Coded Allergies: AMPICILLIN (Verified Allergy, Unknown, 08/03/16) KETOROLAC (Verified Allergy, Unknown, 08/03/16) MORPHINE (Verified Allergy, Unknown, 08/03/16) PHENYTOIN (Verified Allergy, Unknown, 08/03/16) Patient History Past Medical History: see triage record Pertinent Family Hx Narrative Lives at home with his family and children Social History: Reports: smoking Social History Narrative Lives at home with his family and children Reviewed Nursing Documentation: PMH: Agreed, PSxH: Agreed Nursing Documentation-PMH Past Medical History: No History, Except For Hx Cardiac Problems: No - Sickle cell Hx Asthma: Yes Hx COPD: Yes Hx Cancer: No Hx Gastrointestinal Problems: No Hx Neurological Problems: Yes Hx Seizures: Yes Review of Systems All Other Systems: negative except mentioned in HPI Physical Exam Vital Signs Date Time Temp Pulse Resp B/P Pulse Ox O2 Delivery O2 Flow Rate FiO2 10/25/16 14:50 98.2 102 20 118/76 93 Nasal Cannula 6.0 Sp02 EP Interpretation: reviewed, normal General Appearance: no apparent distress, GCS 15, Chronically Ill Head: normocephalic Eyes: bilateral eye conjunctivae pale, bilateral eye other - disconjugate gaze , bilateral eye scleral icterus ENT: moist mucus membranes Neck: supple Respiratory: lungs clear, normal breath sounds Cardiovascular #1: regular rate, rhythm, other - vascular prominence in arms, edema - bilat Cardiovascular #2: 2+ radial (R) Gastrointestinal: normal bowel sounds, soft, no mass, no guarding, no rebound, tenderness - diffuse Musculoskeletal: back normal, digits/nails normal, gait/station normal, normal range of motion, calf tenderness - bilaterally, equivical Ashley's Neurologic: alert, oriented x3, motor strength/tone normal, sensory intact Psychiatric: mood/affect normal Skin: pallor Medical Decision Making Diagnostic Impression: Primary Impression: Sickle cell crisis Additional Impressions: Pulmonary infiltrates DVT (deep venous thrombosis) Qualified Codes: I82.442 - Acute embolism and thrombosis of left tibial vein ER Course Patient with sickle cell presents with chest pain leg edema and pain, and nonproductive cough. Differential is fairly broad including sickle cell crisis , acute sickle chest syndrome, pulmonary embolus, pneumonia, acute myocardial infarction amongst others. Emergent evaluation is undertaken. Labs will be obtained including reticulocyte count, blood cultures lactate. Chest x-ray and EKG will be taken. Also noninvasive vascular study will be done of his lower extremities. Due to edema, no aggressive hydration undertaken. Labs with elevated WBC, low H/H. CXR with bilateral infiltrates (has had in past). Antibiotics begun. BNP minimally elevated. Noninvasive suggests DVT. Lovenox started. Prior CTA, no PE. Patient admitted med Dr. Rollins. Laboratory Tests Test 10/25/16 15:30 10/25/16 16:05 White Blood Count 17.7 K/UL (4.8-10.8) H Red Blood Count 2.59 M/UL (4.70-6.10) L Hemoglobin 8.7 G/DL (14.2-18.0) L Hematocrit 23.6 % (42.0-52.0) L Mean Corpuscular Volume 91 FL (80-99) Mean Corpuscular Hemoglobin 33.7 PG (27.0-31.0) H Mean Corpuscular Hemoglobin Concent 36.9 G/DL (32.0-36.0) H Red Cell Distribution Width 20.1 % (11.6-14.8) H Platelet Count 345 K/UL (150-450) Mean Platelet Volume 8.1 FL (6.5-10.1) Neutrophils (%) (Auto) % (45.0-75.0) Lymphocytes (%) (Auto) % (20.0-45.0) Monocytes (%) (Auto) % (1.0-10.0) Eosinophils (%) (Auto) % (0.0-3.0) Basophils (%) (Auto) % (0.0-2.0) Differential Total Cells Counted 100 Neutrophils % (Manual) 55 % (45-75) Lymphocytes % (Manual) 32 % (20-45) Monocytes % (Manual) 5 % (1-10) Eosinophils % (Manual) 8 % (0-3) H Basophils % (Manual) 0 % (0-2) Band Neutrophils 0 % (0-8) Nucleated Red Blood Cells 5 /100 WBC Platelet Estimate Adequate Platelet Morphology Normal Reticulocyte Count 4.9 % (0.0-2.0) H Prothrombin Time 11.1 SEC (9.30-11.50) Prothrombin Time INR 1.1 (0.9-1.1) PTT 65 SEC (23-33) H Sodium Level 141 mEQ/L (135-145) Potassium Level 4.6 mEQ/L (3.4-4.9) Chloride Level 101 mEQ/L (98-107) Carbon Dioxide Level 28 mEQ/L (20-30) Anion Gap 12 (5-15) Blood Urea Nitrogen 26 mg/dL (7-23) H Creatinine 0.8 mg/dL (0.7-1.2) Estimate Glomerular Filtration Rate > 60 mL/min (>60) Glucose Level 92 mg/dL (74-106) Lactic Acid Level 0.70 mmol/L (0.66-2.22) Calcium Level 8.5 mg/dL (8.6-10.2) L Total Bilirubin 0.9 mg/dL (0.0-1.2) Aspartate Amino Transferase (AST) 38 U/L (5-40) Alanine Aminotransferase (ALT) 28 U/L (3-41) Alkaline Phosphatase 141 U/L (40-129) H Lactate Dehydrogenase 562 U/L (135-230) H Total Creatine Kinase 35 U/L (38-174) L Troponin I < 0.30 ng/mL (<=0.30) Pro-B-Type Natriuretic Peptide 331 pg/mL (0-125) H Total Protein 5.9 g/dL (6.6-8.7) L Albumin 3.8 g/dL (3.5-5.2) Globulin 2.1 g/dL Albumin/Globulin Ratio 1.8 (1.0-2.7) Urine Color Pale yellow Urine Appearance Clear Urine pH 6.5 (4.5-8.0) Urine Specific [place] 1.010 (1.005-1.035) Urine Protein 3+ (NEGATIVE) H Urine Glucose (UA) Negative (NEGATIVE) Urine Ketones Negative (NEGATIVE) Urine Occult Blood 2+ (NEGATIVE) H Urine Nitrite Negative (NEGATIVE) Urine Bilirubin Negative (NEGATIVE) Urine Urobilinogen Normal MG/DL (0.0-1.0) Urine Leukocyte Esterase Negative (NEGATIVE) Urine RBC 0-2 /HPF (0 - 0) H Urine WBC 0-2 /HPF (0 - 0) Urine Squamous Epithelial Cells Occasional /LPF Urine Bacteria None /HPF (NONE) Urine Opiates Screen Positive (NEGATIVE) H Urine Barbiturates Screen Positive (NEGATIVE) H Phencyclidine (PCP) Screen Negative (NEGATIVE) Urine Amphetamines Screen Negative (NEGATIVE) Urine Benzodiazepines Screen Negative (NEGATIVE) Urine Cocaine Screen Negative (NEGATIVE) Urine Marijuana (THC) Screen Negative (NEGATIVE) EKG Diagnostic Results Rate: normal Rhythm: NSR ST Segments: other - ST inversions septally Rhythm Strip Diag. Results EP Interpretation: yes Rhythm: NSR, no PVC's, no ectopy Chest X-Ray Diagnostic Results EP Interpretation: Yes Findings: no effusion, no pneumothorax, other - bilateral infiltrates Number of Views: 1 Last Vital Signs Date Time Temp Pulse Resp B/P Pulse Ox O2 Delivery O2 Flow Rate FiO2 10/25/16 18:25 80 18 116/70 100 Nasal Cannula 6.0 10/25/16 16:44 98.3 Status: improved Disposition: ADMITTED INPATIENT Condition: Serious Artie Coburn M.D. Oct 25, 2016 15:32
[2016-10-25 15:52] VITALS: BP 113/81
[2016-10-25 16:25] LABS: TROPONIN I < 0.30 ng/mL (<=0.30)
[2016-10-25] MEDS ORDERED: NS 55 ML IV ONE (16:26)
[2016-10-25 16:27] LABS: MEAN CORPUSCULAR HEMOGLOBIN 33.7 PG (27.0-31.0); MEAN CORPUSCULAR HGB CONC 36.9 G/DL (32.0-36.0); MEAN CORPUSCULAR VOLUME 91 FL (80-99); MEAN PLATELET VOLUME 8.1 FL (6.5-10.1); PLATELET COUNT 345 K/UL (150-450); RED BLOOD COUNT 2.59 M/UL (4.70-6.10); RED CELL DISTRIBUTION WIDTH 20.1 % (11.6-14.8); WHITE BLOOD COUNT 17.7 K/UL (4.8-10.8)
[2016-10-25 16:28] LABS: ALANINE AMINOTRANSFERASE 28 U/L (3-41); ALBUMIN/GLOBULIN RATIO 1.8 (1.0-2.7); ANION GAP 12 (5-15); ASPARTATE AMINO TRANSFERASE 38 U/L (5-40); CALCIUM 8.5 mg/dL (8.6-10.2); CARBON DIOXIDE 28 mEQ/L (20-30); CHLORIDE 101 mEQ/L (98-107); CREATININE 0.8 mg/dL (0.7-1.2); GLOMERULAR FILTRATION RATE > 60 mL/min (>60); HEMOLYSIS 20; INR 1.1 (0.9-1.1); POTASSIUM 4.6 mEQ/L (3.4-4.9); PROTHROMBIN TIME 11.1 SEC (9.30-11.50); SODIUM 141 mEQ/L (135-145); TOTAL PROTEIN 5.9 g/dL (6.6-8.7)
[2016-10-25] MEDS ORDERED: cefTRIAXone 1 GM in NS 55 ML IVPB ONE (16:30)
[2016-10-25 16:35] LABS: APPEARANCE,URINE CLEAR; KETONES,URINE NEGATIVE (NEGATIVE); LEUKOCYTE ESTERASE ,URINE NEGATIVE (NEGATIVE); NITRITE,URINE NEGATIVE (NEGATIVE); PH,URINE 6.5 (4.5-8.0); PROTEIN,URINE 3+ (NEGATIVE); UROBILINOGEN,URINE NORMAL MG/DL (0.0-1.0)
--- NOTE | 2016-10-25 16:45 | Diagnostic Imaging Report ---
Indication: Chest pain Technique: One view of the chest Comparison: 09/22/2016 Findings: Reticular and hazy alveolar disease is seen in the right mid and lower lung, appearing slightly increased from the prior exam. Mostly linear opacities in the left perihilar region and left lung base appear similar to the previous study, likely represent areas of chronic scarring, although could represent areas of atelectasis. Pleural spaces appear clear. The heart is enlarged. Impression: Hazy infiltrates versus edema in the right lung, slightly increased from 09/22/2016. Linear opacities in the left mid and lower lung likely represent areas of atelectasis or scarring Cardiomegaly
[2016-10-25 17:16] VITALS: BP 101/79
[2016-10-25 18:25] VITALS: BP 116/70
[2016-10-25 18:40] LABS: RBC,URINE 0-2 /HPF (0 - 0); SQUAMOUS EPITHELIAL CELL,UR OCCASIONAL /LPF (NONE/OCC); WBC,URINE 0-2 /HPF (0 - 0)
[2016-10-25 20:22] LABS: BAND NEUTROPHILS % (MANUAL) 0 % (0-8); BASOPHILS % (MANUAL) 0 % (0-2); EOSINOPHILS % (MANUAL) 8 % (0-3); LYMPHOCYTES % (MANUAL) 32 % (20-45); NEUTROPHILS % (MANUAL) 55 % (45-75); NUCLEATED RED BLOOD CELLS 5 /100 WBC; PLATELET ESTIMATE ADEQUATE; TOTAL CELLS COUNTED 100
[2016-10-25 20:24] LABS: PLATELET MORPHOLOGY NORMAL
[2016-10-25 20:25] VITALS: BP 120/76
[2016-10-25] MEDS ORDERED: DuoNeb 0.5-3(2.5)mg/3ml neb HHN PRN (20:30)
[2016-10-25] MEDS ORDERED: Enoxaparin 80mg Inj SUBQ SCH (21:00)
[2016-10-25 22:25] VITALS: BP 118/74
[2016-10-26] VITALS (8 sets, daily range): BP systolic 64–128; BP diastolic 64–85
[2016-10-26] MEDS ORDERED: Heparin 25,000u/D5W 500ml 500 ML IV SCH (01:45)
[2016-10-26] MEDS ORDERED: Heparin 5000 units/ml inj IV ONE (01:45)
[2016-10-26] MEDS: DiphenhydrAMINE 50mg/ml Inj IVP PRN ×6 (02:34→23:33)
[2016-10-26] MEDS: Hydroxyurea 500mg cap ORAL SCH ×2 (09:11→17:27)
[2016-10-26] MEDS: Enoxaparin Sodium 300mg/3ml vial SUBQ SCH ×2 (10:41→20:33)
--- NOTE | 2016-10-26 11:30 | Consultation ---
Consult Note Consult Note DATE OF CONSULTATION: 10/26/2016 HEMATOLOGY/ONCOLOGY CONSULTATION REQUESTING PHYSICIAN: Jerri River M.D. REASON FOR CONSULTATION: Evaluation of sickle cell crisis, DVT IDENTIFICATION: The patient is a pleasant 40-year-old male with a past medical history significant for sickle cell anemia, bilateral hip necrosis avascular, history of stroke at the age of 10, and chronic pain, at this time presents with chest pain as well as productive cough. The patient was lethargic in the ER, however , upon presentation to the floor, he was evaluated by me and has been doing well with his sickle cell disease, relatively stable. He has sickle cell crisis and he has been on hydroxyurea 500 mg p.o. b.i.d., gave Dilaudid here in the ER and is getting Dilaudid every four hours on a p.r.n. basis as well as continued folic acid. 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 PAST MEDICAL HISTORY: Sickle cell disease, sickle cell anemia, hip avascular necrosis, and chronic pain. PAST SURGICAL HISTORY: None noted. MEDICATIONS: Hydroxyurea and folic acid at home. Medications currently Benadryl, ceftriaxone, methadone, Dilaudid, Zofran, dextrose, hydroxyurea 500 mg p.o. b.i.d., and heparin 5000 units subcutaneously q.12 h. SOCIAL HISTORY: No alcohol, tobacco, or illicit drug use. FAMILY HISTORY: Does have a history of sickle cell as well in the patient's mother who at the age of 33. REVIEW OF SYSTEMS: Constitutional: No fever, chills, or night sweats. Skin: No rashes, lumps, or itching. HEENT: No headache or vision changes. Breasts: No lumps, pain, or discharge. Pulmonary: Improved breathing at this time. Cardiovascular: ++chest pain and some tightness, however, no palpitations. Gastrointestinal: No nausea, vomiting, or diarrhea. Genitourinary: No dysuria , frequency, or urgency. Musculoskeletal: No joint swelling, muscle pain, or trauma. Neurological: No dizziness, fainting, or seizures. PHYSICAL EXAMINATION: GENERAL: The patient is in no acute distress. VITAL SIGNS: Temperature is 97.5 degrees Fahrenheit, respiratory rate 12, blood pressure 109/71, and pulse oximetry 100% PULMONARY: Decreased breath sounds bilaterally CARDIOVASCULAR: Regular rate. No S3 or S4. GASTROINTESTINAL: Abdomen is soft, nontender, and nondistended. EXTREMITIES: A 1+ edema. LABORATORY AND DIAGNOSTIC DATA: WBC is 17.7, hemoglobin 7.2, hematocrit 22, and platelet count of 433,000. Reticulocyte count is 4.2 ASSESSMENT: 1. Sickle cell crisis with no evidence of acute chest syndrome. Know this patient very well from prior hospital admissions. Has been seen in past by pain service and had been on extraordinarily high doses of pain meds including methadone. Now retic count is elevated, at 4 on admission. On prior crisis has presented with elevated retic count. Hgb >7 goal, patient continues to be in pain at this time, on incentive spirometry. Bili is nml. He has a hx of noncompliance, has extremely high opiod tolerance. Also says will come in next week for appt to see me (however, has a hx of noncompliance) 2. DVT of the lower ext - await final results --> started on lovenox and coumadin, has not been on anticoagulation recently 3. Leukocytosis due to reactive process from anemia 4 Avascular Necrosis of the hip 5. Pain from the sickle cell crisis 6. Pneumonia hx is now resolved RECOMMENDATIONS: - Await final US results - Continue hydroxyurea 500mg bid as well as folic acid - Check retic as daily - Pain management recs - DVT Prophylaxis with SCDs - Out patient Hematology follow up ( next wk, however patient with hx noncompliance) - staff Thank you, Dr. Jerri River for this kind referral. Please do not hesitate to contact me if you have any further questions. Marco Dutton Oct 26, 2016 11:30
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
[2016-10-26] MEDS ORDERED: guaiFENesin 100mg/5ml Liq ud ORAL PRN (15:00)
--- NOTE | 2016-10-26 15:59 | Consultation ---
History of Present Illness General Date patient seen: Oct 26, 2016 Chief Complaint: Pain Reason for Consultation: abn cxr Present Illness HPI 40 year old with hx of sickle cell disease, severe diastolic heart disease, DVT , presented to ER with chest pain and peripheral edema. . It's more pleuritic on the left-hand side of his chest. He has some shortness of breath. Also hasn't fevers or not documented also productive cough with some green phlegm. He has not been wheezing. His CXR showed pulmonary edema VS infiltrate. There is no fever or chills. His CT angio in aug 2016 didn't show any PE, he had severe pulmonary htn on previous echo. Allergies: Coded Allergies: AMPICILLIN (Verified Allergy, Unknown, 08/03/16) KETOROLAC (Verified Allergy, Unknown, 08/03/16) MORPHINE (Verified Allergy, Unknown, 08/03/16) PHENYTOIN (Verified Allergy, Unknown, 08/03/16) Medication History Scheduled Folic Acid* (Folic Acid*), 1 MG ORAL DAILY, (Reported) Gabapentin* (Gabapentin*), 500 MG ORAL THREE TIMES A DAY, (Reported) Hydromorphone HCl (Dilaudid), 12 MG ORAL EVERY 4 HOURS, (Reported) Hydroxyurea* (Hydrea*), 500 MG PO BID, (Reported) Methadone Hcl* (Methadone*), 50 MG PO Q6HR, (Reported) Scheduled PRN Diphenhydramine HCl (Benadryl), 50 MG PO Q4HR PRN for Itching, (Reported) Patient History Healthcare decision maker Resuscitation status Full Code Advanced Directive on File Review of Systems All Other Systems: negative except mentioned in HPI Physical Exam General Appearance: cachetic Lines, tubes and drains: peripheral, central line HEENT: normocephalic, atraumatic Neck: non-tender, normal alignment Respiratory/Chest: chest wall non-tender, rhonchi - bilaterally Cardiovascular/Chest: normal peripheral pulses, normal rate Abdomen: normal bowel sounds, non tender Genitourinary/Rectal: normal genital exam, heme negative stool Extremities: normal range of motion, non-tender Skin Exam: normal pigmentation Last 24 Hour Vital Signs Date Time Temp Pulse Resp B/P Pulse Ox O2 Delivery O2 Flow Rate FiO2 10/26/16 12:35 97.6 81 19 108/75 94 Nasal Cannula 4.0 10/26/16 12:34 97.6 81 19 108/75 94 Nasal Cannula 4.0 10/26/16 11:09 97.5 10/26/16 08:50 97.5 80 16 128/85 93 Room Air 10/26/16 07:40 85 18 Nasal Cannula 3.0 10/26/16 04:00 98.1 83 19 119/69 94 Nasal Cannula 4.0 10/26/16 00:00 97.8 78 18 108/71 98 Nasal Cannula 4.0 10/25/16 22:30 98.3 79 17 118/74 100 Nasal Cannula 6.0 10/25/16 22:25 97.8 79 17 118/74 100 Nasal Cannula 6.0 10/25/16 21:05 98.3 10/25/16 20:25 97.9 80 19 120/76 100 Nasal Cannula 6.0 10/25/16 18:25 80 18 116/70 100 Nasal Cannula 6.0 10/25/16 17:16 95 25 101/79 97 Nasal Cannula 6.0 10/25/16 16:44 98.3 Intake and Output 10/25/16 10/26/16 18:59 06:59 Intake Total 50 ml 1000 ml Output Total 500 ml 2050 ml Balance -450 ml -1050 ml Intake Oral 1000 ml IV Total 50 ml Output Urine Total 500 ml 2050 ml # Voids 2 # Bowel Movements 1 Laboratory Tests Test 10/25/16 16:05 Urine Color Pale yellow Urine Appearance Clear Urine pH 6.5 (4.5-8.0) Urine Specific [place] 1.010 (1.005-1.035) Urine Protein 3+ (NEGATIVE) H Urine Glucose (UA) Negative (NEGATIVE) Urine Ketones Negative (NEGATIVE) Urine Occult Blood 2+ (NEGATIVE) H Urine Nitrite Negative (NEGATIVE) Urine Bilirubin Negative (NEGATIVE) Urine Urobilinogen Normal MG/DL (0.0-1.0) Urine Leukocyte Esterase Negative (NEGATIVE) Urine RBC 0-2 /HPF (0 - 0) H Urine WBC 0-2 /HPF (0 - 0) Urine Squamous Epithelial Cells Occasional /LPF Urine Bacteria None /HPF (NONE) Urine Opiates Screen Positive (NEGATIVE) H Urine Barbiturates Screen Positive (NEGATIVE) H Phencyclidine (PCP) Screen Negative (NEGATIVE) Urine Amphetamines Screen Negative (NEGATIVE) Urine Benzodiazepines Screen Negative (NEGATIVE) Urine Cocaine Screen Negative (NEGATIVE) Urine Marijuana (THC) Screen Negative (NEGATIVE) Height (Feet): 5 Height (Inches): 11.00 Weight (Pounds): 153 Medications Current Medications Medications (Trade) Dose Ordered Sig/Anthony Route PRN Reason Start Time Stop Time Status Last Admin Dose Admin Albuterol/ Ipratropium 3 ml 3 ml Q4H PRN HHN Shortness of Breath/Wheezing 10/25/16 20:30 10/30/16 20:29 Diphenhydramine HCl (Benadryl) 50 mg Q4H PRN IVP Itching 10/26/16 01:45 11/25/16 01:44 10/26/16 15:19 Enoxaparin Sodium (Lovenox) 70 mg EVERY 12 HOURS SUBQ 10/26/16 11:00 11/25/16 10:59 10/26/16 10:41 Folic Acid (Folate) 1 mg DAILY ORAL 10/26/16 09:00 11/25/16 08:59 10/26/16 09:11 Gabapentin (Neurontin) 600 mg THREE TIMES A DAY ORAL 10/26/16 18:00 11/25/16 17:59 Guaifenesin (Robitussin) 200 mg Q4H PRN ORAL For Cough 10/26/16 15:00 11/25/16 14:59 Hydromorphone HCl (Dilaudid) 2 mg Q4H PRN IVP pain 10/26/16 01:45 11/02/16 01:44 10/26/16 15:19 Hydroxyurea (Hydrea) 500 mg BID ORAL 10/26/16 09:00 10/31/16 08:59 10/26/16 09:11 Methadone HCl (Methadone HCl) 50 mg Q6HR ORAL 10/26/16 12:00 11/02/16 11:59 10/26/16 12:08 Ondansetron HCl (Zofran) 4 mg Q4H PRN IVP Nausea & Vomiting 10/26/16 02:00 11/25/16 01:59 Sodium Chloride (Sodium Chloride 1000ml bag) 1,000 ml @ 75 mls/hr [id number] IV 10/26/16 01:45 11/25/16 01:44 10/26/16 15:27 Warfarin Sodium (Coumadin per pharmacy) 1 ea DAILY PRN MISC Per rx protocol 10/26/16 11:30 11/25/16 11:29 Warfarin Sodium (Coumadin) 5 mg COUMADIN ORAL 10/26/16 17:00 10/31/16 16:59 Assessment/Plan Problem List: (1) Pneumonia ICD Codes: J18.9 - Pneumonia, unspecified organism SNOMED: 901783021 (2) severe diastolic heart disease (3) Pulmonary HTN ICD Codes: I27.2 - Other secondary pulmonary hypertension SNOMED: 60242143 (4) Interstitial lung disease ICD Codes: J84.9 - Interstitial pulmonary disease, unspecified SNOMED: 85071137, 803854779 (5) Sickle cell crisis ICD Codes: D57.00 - Hb-SS disease with crisis, unspecified SNOMED: 619450798 (6) DVT (deep venous thrombosis) ICD Codes: I82.409 - Acute embolism and thrombosis of unspecified deep veins of unspecified lower extremity SNOMED: 505010546 Assessment/Plan respiratory treatment I thinks the findings on CXR are more fluid overload than pneumonia I suggest to dc IV fluids once crisis in under control, we could use some diuretics. f/u cxr and bnp KENNEDY MOORE Oct 26, 2016 15:59
[2016-10-26] MEDS: Warfarin Sodium 5mg ORAL SCH (17:27)
[2016-10-27] VITALS (8 sets, daily range): BP systolic 107–150; BP diastolic 62–93
[2016-10-27] MEDS: DiphenhydrAMINE 50mg/ml Inj IVP PRN ×5 (03:37→20:34)
[2016-10-27 07:02] LABS: INR 1.1 (0.9-1.1); PROTHROMBIN TIME 11.3 SEC (9.30-11.50)
[2016-10-27 07:22] LABS: BASOPHILS % (AUTO) 5.4 % (0.0-2.0); EOSINOPHILS % (AUTO) 7.9 % (0.0-3.0); LYMPHOCYTES % (AUTO) 23.1 % (20.0-45.0); MEAN CORPUSCULAR HEMOGLOBIN 32.9 PG (27.0-31.0); MEAN CORPUSCULAR HGB CONC 34.9 G/DL (32.0-36.0); MEAN CORPUSCULAR VOLUME 94 FL (80-99); MEAN PLATELET VOLUME 7.4 FL (6.5-10.1); MONOCYTES % (AUTO) 11.8 % (1.0-10.0); NEUTROPHILS % (AUTO) 51.8 % (45.0-75.0); PLATELET COUNT 375 K/UL (150-450); RED BLOOD COUNT 2.56 M/UL (4.70-6.10); WHITE BLOOD COUNT 16.9 K/UL (4.8-10.8)
[2016-10-27 07:26] LABS: ALANINE AMINOTRANSFERASE 32 U/L (3-41); ALBUMIN/GLOBULIN RATIO 1.7 (1.0-2.7); ANION GAP 9 (5-15); ASPARTATE AMINO TRANSFERASE 37 U/L (5-40); CALCIUM 9.1 mg/dL (8.6-10.2); CARBON DIOXIDE 31 mEQ/L (20-30); CHLORIDE 104 mEQ/L (98-107); CREATININE 0.8 mg/dL (0.7-1.2); GLOMERULAR FILTRATION RATE > 60 mL/min (>60); HEMOLYSIS 5; POTASSIUM 4.5 mEQ/L (3.4-4.9); SODIUM 144 mEQ/L (135-145)
[2016-10-27] MEDS: Hydroxyurea 500mg cap ORAL SCH ×2 (07:43→17:27)
[2016-10-27] MEDS: Enoxaparin Sodium 300mg/3ml vial SUBQ SCH ×2 (09:00→20:42)
--- NOTE | 2016-10-27 10:24 | Diagnostic Imaging Report ---
Indication: DYSPNEA Technique: One view of the chest Comparison: 10/25/2016 Findings: Again demonstrated is a right chest port catheter. Bilateral diffuse interstitial disease a record of the left, sparing only the left upper lobe, is again demonstrated and appears similar to the previous study. The pleural spaces are clear. Heart is borderline enlarged. Impression: Unchanged, over 2 days, findings as above.
[2016-10-27 10:37] LABS: RETICULOCYTE COUNT 3.5 % (0.0-2.0)
--- NOTE | 2016-10-27 14:23 | Cardiology Report ---
APPROVED REPORT EKG Measurement Heart [id number] DC 174P62 [id number] Normal sinus rhythm T wave abnormality, consider anterolateral ischemia Abnormal ECG
[2016-10-27] MEDS: Warfarin Sodium 5mg ORAL SCH (16:29)
--- NOTE | 2016-10-27 17:07 | Pulmonology Progress Note ---
Assessment/Plan Problems: (1) Pneumonia (2) severe diastolic heart disease (3) Pulmonary HTN (4) Interstitial lung disease (5) Sickle cell crisis (6) DVT (deep venous thrombosis) Assessment/Plan respiratory treatment f/u pulse oximeter titrate fio2 pain control Subjective ROS Limited/Unobtainable: No Interval Events: somnolent Allergies: Coded Allergies: AMPICILLIN (Verified Allergy, Unknown, 08/03/16) KETOROLAC (Verified Allergy, Unknown, 08/03/16) MORPHINE (Verified Allergy, Unknown, 08/03/16) PHENYTOIN (Verified Allergy, Unknown, 08/03/16) Objective Last 24 Hour Vital Signs Date Time Temp Pulse Resp B/P Pulse Ox O2 Delivery O2 Flow Rate FiO2 10/27/16 12:58 98.1 10/27/16 12:00 98.8 78 20 133/93 97 Nasal Cannula 5.0 10/27/16 08:00 96.1 94 18 107/65 94 Nasal Cannula 5.0 10/27/16 07:45 96 Nasal Cannula 5.0 40 10/27/16 07:45 Nasal Cannula 5.0 40 10/27/16 07:45 83 18 Nasal Cannula 5.0 40 10/27/16 04:00 98.2 120 24 150/83 93 10/27/16 00:00 97.7 78 22 140/70 93 Nasal Cannula 4.0 10/26/16 20:40 75 14 Nasal Cannula 3.0 10/26/16 20:00 98.1 73 20 125/64 95 Nasal Cannula 4.0 10/26/16 20:00 98.1 73 20 64/83 95 Nasal Cannula 4.0 Intake and Output 10/26/16 10/27/16 19:00 07:00 Intake Total 1705 ml 828 ml Output Total 400 ml Balance 1305 ml 828 ml Intake Oral 880 ml IV Total 825 ml 828 ml Output Urine Total 400 ml # Voids 2 2 Objective General Appearance: WD/WN, no apparent distress Lines, tubes and drains: peripheral HEENT: normocephalic, atraumatic Neck: non-tender, supple Respiratory/Chest: chest wall non-tender, rhonchi - bilaterally Cardiovascular/Chest: normal peripheral pulses, normal rate Abdomen: normal bowel sounds Genitourinary/Rectal: normal genital exam Extremities: normal range of motion Microbiology Date/Time Source Procedure Growth Status 4/11/17 16:53 Blood Blood Culture - Preliminary NO GROWTH AFTER 24 HOURS Resulted 10/25/16 16:30 Blood Blood Culture - Preliminary NO GROWTH AFTER 24 HOURS Resulted Laboratory Tests 10/27/16 06:20: White Blood Count 16.9H, Red Blood Count 2.56L, Hemoglobin 8.4L, Hematocrit 24.1L, Mean Corpuscular Volume 94, Mean Corpuscular Hemoglobin 32.9H, Mean Corpuscular Hemoglobin Concent 34.9, Red Cell Distribution Width 22.0H, Platelet Count 375, Mean Platelet Volume 7.4, Neutrophils (%) (Auto) 51.8, Lymphocytes (%) (Auto) 23.1, Monocytes (%) (Auto) 11.8H, Eosinophils (%) (Auto) 7.9H, Basophils (%) (Auto) 5.4H, Reticulocyte Count 3.5H, Prothrombin Time 11.3 , Prothromb Time International Ratio 1.1, Sodium Level 144, Potassium Level 4.5 , Chloride Level 104, Carbon Dioxide Level 31H, Anion Gap 9, Blood Urea Nitrogen 21, Creatinine 0.8, Estimat Glomerular Filtration Rate > 60, Glucose Level 143H, Calcium Level 9.1, Total Bilirubin 0.7, Aspartate Amino Transf (AST/ SGOT) 37, Alanine Aminotransferase (ALT/SGPT) 32, Alkaline Phosphatase 131H, Pro -B-Type Natriuretic Peptide 256H, Total Protein 6.0L, Albumin 3.8, Globulin 2.2 , Albumin/Globulin Ratio 1.7 Current Medications Medications (Trade) Dose Ordered Sig/Anthony Route PRN Reason Start Time Stop Time Status Last Admin Dose Admin Albuterol/ Ipratropium (DuoNeb 0.5-3(2.5)mg/3ml) 3 ml Q4H PRN HHN Shortness of Breath/Wheezing 10/25/16 20:30 10/30/16 20:29 Diphenhydramine HCl (Benadryl) 50 mg Q4H PRN IVP Itching 10/26/16 01:45 11/25/16 01:44 10/27/16 16:28 Enoxaparin Sodium (Lovenox) 70 mg EVERY 12 HOURS SUBQ 10/26/16 11:00 11/25/16 10:59 10/27/16 09:00 Folic Acid (Folate) 1 mg DAILY ORAL 10/26/16 09:00 11/25/16 08:59 10/27/16 07:43 Gabapentin (Neurontin) 600 mg THREE TIMES A DAY ORAL 10/26/16 18:00 11/25/16 17:59 10/27/16 12:28 Guaifenesin (Robitussin) 200 mg Q4H PRN ORAL For Cough 10/26/16 15:00 11/25/16 14:59 Hydromorphone HCl (Dilaudid) 2 mg Q4H PRN IVP pain 10/26/16 01:45 11/02/16 01:44 10/27/16 16:28 Hydroxyurea (Hydrea) 500 mg BID ORAL 10/26/16 09:00 10/31/16 08:59 10/27/16 07:43 Methadone HCl (Methadone HCl) 50 mg Q6HR ORAL 10/26/16 12:00 11/02/16 11:59 10/27/16 13:37 Ondansetron HCl (Zofran) 4 mg Q4H PRN IVP Nausea & Vomiting 10/26/16 02:00 11/25/16 01:59 Warfarin Sodium (Coumadin per pharmacy) 1 ea DAILY PRN MISC Per rx protocol 10/26/16 11:30 11/25/16 11:29 Warfarin Sodium (Coumadin) 5 mg COUMADIN ORAL 10/26/16 17:00 10/31/16 16:59 10/27/16 16:29 KENNEDY MOORE Oct 27, 2016 17:06
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
--- NOTE | 2016-10-27 22:37 | General Progress Note ---
Assessment/Plan Assessment/Plan ASSESSMENT: 1. Sickle cell crisis with no evidence of acute chest syndrome. Know this patient very well from prior hospital admissions. Has been seen in past by pain service and had been on extraordinarily high doses of pain meds including methadone. Now retic count is elevated, at 4 on admission. On prior crisis has presented with elevated retic count. Hgb >7 goal, patient continues to be in pain at this time, on incentive spirometry. Bili is nml. He has a hx of noncompliance, has extremely high opioid tolerance. Also says will come in next week for appt to see me (however, has a hx of noncompliance) 2. DVT of the lower ext - await final results --> started on lovenox and coumadin, has not been on anticoagulation recently 3. Leukocytosis due to reactive process from anemia 4 Avascular Necrosis of the hip 5. Pain from the sickle cell crisis 6. Pneumonia hx is now resolved RECOMMENDATIONS: - Await final US results - Continue hydroxyurea 500mg bid as well as folic acid - Check retic as daily - Pain management recs - DVT Prophylaxis with SCDs - Out patient Hematology follow up (Tues next wk, however patient with hx noncompliance) - [facility] staff Subjective Constitutional: Reports: no symptoms HEENT: Reports: no symptoms Cardiovascular: Reports: no symptoms Respiratory: Reports: no symptoms Gastrointestinal/Abdominal: Reports: no symptoms Genitourinary: Reports: no symptoms 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: Reports: no symptoms Endocrine: Reports: no symptoms Hematologic/Lymphatic: Reports: no symptoms Allergies: Coded Allergies: AMPICILLIN (Verified Allergy, Unknown, 08/03/16) KETOROLAC (Verified Allergy, Unknown, 08/03/16) MORPHINE (Verified Allergy, Unknown, 08/03/16) PHENYTOIN (Verified Allergy, Unknown, 08/03/16) Subjective pt complaining of total body pain Objective Last 24 Hour Vital Signs Date Time Temp Pulse Resp B/P Pulse Ox O2 Delivery O2 Flow Rate FiO2 10/27/16 21:18 97.2 91 20 140/89 98 Room Air 10/27/16 21:16 97.1 91 20 140/89 98 Room Air 10/27/16 21:04 98.1 10/27/16 20:00 97.2 91 20 140/89 98 Room Air 10/27/16 19:51 92 18 Nasal Cannula 5.0 40 10/27/16 19:51 Nasal Cannula 5.0 40 10/27/16 19:51 96 Nasal Cannula 5.0 40 10/27/16 16:00 97.2 79 18 125/62 97 Nasal Cannula 5.0 10/27/16 12:00 98.8 78 20 133/93 97 Nasal Cannula 5.0 10/27/16 08:00 96.1 94 18 107/65 94 Nasal Cannula 5.0 10/27/16 07:45 96 Nasal Cannula 5.0 40 10/27/16 07:45 Nasal Cannula 5.0 40 10/27/16 07:45 83 18 Nasal Cannula 5.0 40 10/27/16 04:00 98.2 120 24 150/83 93 10/27/16 00:00 97.7 78 22 140/70 93 Nasal Cannula 4.0 Intake and Output 10/26/16 10/27/16 19:00 07:00 Intake Total 1705 ml 828 ml Output Total 400 ml Balance 1305 ml 828 ml Intake Oral 880 ml IV Total 825 ml 828 ml Output Urine Total 400 ml # Voids 2 2 Laboratory Tests 10/27/16 06:20: White Blood Count 16.9H, Red Blood Count 2.56L, Hemoglobin 8.4L, Hematocrit 24.1L, Mean Corpuscular Volume 94, Mean Corpuscular Hemoglobin 32.9H, Mean Corpuscular Hemoglobin Concent 34.9, Red Cell Distribution Width 22.0H, Platelet Count 375, Mean Platelet Volume 7.4, Neutrophils (%) (Auto) 51.8, Lymphocytes (%) (Auto) 23.1, Monocytes (%) (Auto) 11.8H, Eosinophils (%) (Auto) 7.9H, Basophils (%) (Auto) 5.4H, Reticulocyte Count 3.5H, Prothrombin Time 11.3 , Prothromb Time International Ratio 1.1, Sodium Level 144, Potassium Level 4.5 , Chloride Level 104, Carbon Dioxide Level 31H, Anion Gap 9, Blood Urea Nitrogen 21, Creatinine 0.8, Estimat Glomerular Filtration Rate > 60, Glucose Level 143H, Calcium Level 9.1, Total Bilirubin 0.7, Aspartate Amino Transf (AST/ SGOT) 37, Alanine Aminotransferase (ALT/SGPT) 32, Alkaline Phosphatase 131H, Pro -B-Type Natriuretic Peptide 256H, Total Protein 6.0L, Albumin 3.8, Globulin 2.2 , Albumin/Globulin Ratio 1.7 Height (Feet): 5 Height (Inches): 11.00 Weight (Pounds): 153 General Appearance: no apparent distress EENT: PERRL/EOMI Neck: non-tender Cardiovascular: normal peripheral pulses Respiratory/Chest: chest wall non-tender Abdomen: normal bowel sounds Extremities: normal range of motion Edema: no edema noted Leg (L), no edema noted Leg (R), no edema noted Pedal (L) , no edema noted Pedal (R) 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
[2016-10-28] VITALS (7 sets, daily range): BP systolic 121–134; BP diastolic 73–80
[2016-10-28] MEDS: DiphenhydrAMINE 50mg/ml Inj IVP PRN ×6 (00:33→20:40)
[2016-10-28 07:06] LABS: BASOPHILS % (AUTO) 7.8 % (0.0-2.0); EOSINOPHILS % (AUTO) 8.7 % (0.0-3.0); LYMPHOCYTES % (AUTO) 29.5 % (20.0-45.0); MEAN CORPUSCULAR HEMOGLOBIN 32.6 PG (27.0-31.0); MEAN CORPUSCULAR HGB CONC 34.2 G/DL (32.0-36.0); MEAN CORPUSCULAR VOLUME 95 FL (80-99); MEAN PLATELET VOLUME 8.4 FL (6.5-10.1); NEUTROPHILS % (AUTO) 39.1 % (45.0-75.0); PLATELET COUNT 386 K/UL (150-450); RED BLOOD COUNT 2.64 M/UL (4.70-6.10); RED CELL DISTRIBUTION WIDTH 23.1 % (11.6-14.8); WHITE BLOOD COUNT 12.7 K/UL (4.8-10.8)
[2016-10-28 07:18] LABS: INR 1.1 (0.9-1.1); PROTHROMBIN TIME 11.7 SEC (9.30-11.50)
[2016-10-28 07:22] LABS: ANION GAP 6 (5-15); CARBON DIOXIDE 32 mEQ/L (20-30); CHLORIDE 106 mEQ/L (98-107); CREATININE 0.8 mg/dL (0.7-1.2); GLOMERULAR FILTRATION RATE > 60 mL/min (>60); HEMOLYSIS 19; POTASSIUM 4.8 mEQ/L (3.4-4.9); SODIUM 144 mEQ/L (135-145)
[2016-10-28] MEDS: Hydroxyurea 500mg cap ORAL SCH ×2 (08:47→17:56)
[2016-10-28] MEDS: Enoxaparin Sodium 300mg/3ml vial SUBQ SCH (09:46)
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
[2016-10-28] MEDS ORDERED: DuoNeb 0.5-3(2.5)mg/3ml neb HHN PRN (13:30)
--- NOTE | 2016-10-28 14:46 | General Progress Note ---
Assessment/Plan Status: stable Assessment/Plan ASSESSMENT: 1. Sickle cell crisis with no evidence of acute chest syndrome. Know this patient very well from prior hospital admissions. Has been seen in past by pain service and had been on extraordinarily high doses of pain meds including methadone. Now retic count is elevated, at 4 on admission. On prior crisis has presented with elevated retic count. Hgb >7 goal, patient continues to be in pain at this time, on incentive spirometry. Bili is nml. He has a hx of noncompliance, has extremely high opioid tolerance. Also says will come in next week for appt to see me (however, has a hx of noncompliance) 2. DVT of the lower ext - await final results --> started on lovenox and coumadin-->given noncompliance, begin on xarelto 3. Leukocytosis due to reactive process from anemia 4 Avascular Necrosis of the hip 5. Pain from the sickle cell crisis 6. Pneumonia hx is now resolved RECOMMENDATIONS: - Begin xarelto and will need for 3-6mo - Continue hydroxyurea 500mg bid as well as folic acid - Check retic as daily - Pain management recs - DVT Prophylaxis with SCDs - Out patient Hematology follow up ( next wk, however patient with hx noncompliance) - [facility] staff Subjective Constitutional: Reports: no symptoms HEENT: Reports: no symptoms Cardiovascular: Reports: no symptoms Respiratory: Reports: no symptoms Gastrointestinal/Abdominal: Reports: no symptoms Genitourinary: Reports: no symptoms 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: Reports: no symptoms Endocrine: Reports: no symptoms Allergies: Coded Allergies: AMPICILLIN (Verified Allergy, Unknown, 08/03/16) KETOROLAC (Verified Allergy, Unknown, 08/03/16) MORPHINE (Verified Allergy, Unknown, 08/03/16) PHENYTOIN (Verified Allergy, Unknown, 08/03/16) Subjective pt A/O, in no distress Objective Last 24 Hour Vital Signs Date Time Temp Pulse Resp B/P Pulse Ox O2 Delivery O2 Flow Rate FiO2 10/28/16 13:24 97.6 10/28/16 12:00 97.0 85 18 129/80 98 Room Air 10/28/16 09:08 90 18 Nasal Cannula 5.0 40 10/28/16 09:08 95 Nasal Cannula 5.0 40 10/28/16 09:08 Nasal Cannula 5.0 40 10/28/16 08:00 96.5 80 20 121/73 98 10/28/16 05:03 97.6 87 20 130/74 100 Room Air 10/28/16 04:00 97.6 87 20 130/74 Room Air 10/28/16 00:00 97.2 87 20 126/76 98 Room Air 10/27/16 21:18 97.2 91 20 140/89 98 Room Air 10/27/16 21:16 97.1 91 20 140/89 98 Room Air 10/27/16 20:00 97.2 91 20 140/89 98 Room Air 10/27/16 19:51 92 18 Nasal Cannula 5.0 40 10/27/16 19:51 Nasal Cannula 5.0 40 10/27/16 19:51 96 Nasal Cannula 5.0 40 10/27/16 16:00 97.2 79 18 125/62 97 Nasal Cannula 5.0 Intake and Output 10/27/16 10/28/16 19:00 07:00 Intake Total 450 ml Output Total 960 ml 1200 ml Balance -510 ml -1200 ml Intake Oral 450 ml Output Urine Total 960 ml 1200 ml # Voids 3 2 Laboratory Tests 10/28/16 06:00: White Blood Count 12.7H, Red Blood Count 2.64L, Hemoglobin 8.6L, Hematocrit 25.1L, Mean Corpuscular Volume 95, Mean Corpuscular Hemoglobin 32.6H, Mean Corpuscular Hemoglobin Concent 34.2, Red Cell Distribution Width 23.1H, Platelet Count 386, Mean Platelet Volume 8.4, Neutrophils (%) (Auto) 39.1L, Lymphocytes (%) (Auto) 29.5, Monocytes (%) (Auto) 15.0H, Eosinophils (%) (Auto) 8.7H, Basophils (%) (Auto) 7.8H, Prothrombin Time 11.7H, Prothromb Time International Ratio 1.1, Sodium Level 144, Potassium Level 4.8, Chloride Level 106, Carbon Dioxide Level 32H, Anion Gap 6, Blood Urea Nitrogen 19, Creatinine 0.8, Estimat Glomerular Filtration Rate > 60, Glucose Level 124H, Calcium Level 9.0 Height (Feet): 5 Height (Inches): 11.00 Weight (Pounds): 153 General Appearance: WD/WN EENT: PERRL/EOMI Neck: non-tender Cardiovascular: normal peripheral pulses Respiratory/Chest: chest wall non-tender Abdomen: normal bowel sounds Extremities: normal range of motion Edema: no edema noted Leg (L), no edema noted Leg (R), no edema noted Pedal (L) , no edema noted Pedal (R) Neurologic: alert, oriented x 3 Skin: warm/dry Objective Laboratory: WBC 11.7, Hgb 8.6, Plt 386 Marco Dutton Oct 28, 2016 14:46
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
[2016-10-28] MEDS ORDERED: Warfarin Sodium 7.5mg ORAL SCH (17:00)
[2016-10-29 00:26] VITALS: BP 120/70
[2016-10-29] MEDS: DiphenhydrAMINE 50mg/ml Inj IVP PRN ×6 (00:44→20:43)
[2016-10-29 04:38] VITALS: BP 130/72
[2016-10-29 08:00] VITALS: BP 120/78
[2016-10-29 08:07] LABS: MEAN CORPUSCULAR HEMOGLOBIN 30.8 PG (27.0-31.0); MEAN CORPUSCULAR HGB CONC 32.7 G/DL (32.0-36.0); MEAN CORPUSCULAR VOLUME 94 FL (80-99); MEAN PLATELET VOLUME 7.3 FL (6.5-10.1); PLATELET COUNT 382 K/UL (150-450); RED BLOOD COUNT 2.57 M/UL (4.70-6.10); RED CELL DISTRIBUTION WIDTH 21.7 % (11.6-14.8); WHITE BLOOD COUNT 11.1 K/UL (4.8-10.8)
[2016-10-29 08:13] LABS: INR 1.3 (0.9-1.1); PROTHROMBIN TIME 12.9 SEC (9.30-11.50)
[2016-10-29 08:14] LABS: ANION GAP 7 (5-15); CALCIUM 9.5 mg/dL (8.6-10.2); CARBON DIOXIDE 33 mEQ/L (20-30); CHLORIDE 102 mEQ/L (98-107); GLOMERULAR FILTRATION RATE > 60 mL/min (>60); HEMOLYSIS 12; LACTATE DEHYDROGENASE 572 U/L (135-230); POTASSIUM 5.2 mEQ/L (3.4-4.9); SODIUM 142 mEQ/L (135-145)
[2016-10-29] MEDS: Hydroxyurea 500mg cap ORAL SCH ×2 (08:55→18:17)
[2016-10-29] MEDS: Xarelto 10mg tab ORAL SCH ×2 (08:55→18:17)
[2016-10-29 09:16] LABS: ANISOCYTOSIS 2+; BAND NEUTROPHILS % (MANUAL) 0 % (0-8); BASOPHILS % (MANUAL) 0 % (0-2); EOSINOPHILS % (MANUAL) 13 % (0-3); HYPOCHROMASIA 1+; LYMPHOCYTES % (MANUAL) 27 % (20-45); NEUTROPHILS % (MANUAL) 51 % (45-75); PLATELET ESTIMATE ADEQUATE; PLATELET MORPHOLOGY NORMAL; TOTAL CELLS COUNTED 100
[2016-10-29 09:19] LABS: SICKLE CELLS RARE
[2016-10-29 12:00] VITALS: BP 130/75
[2016-10-29] MEDS ORDERED: Cathflo Alteplase 2mg Inj INJ ONE (12:00)
--- NOTE | 2016-10-29 12:15 | General Progress Note ---
Assessment/Plan Assessment/Plan Problem List: (1) Sickle cell crisis ICD Codes: D57.00 - Hb-SS disease with crisis, unspecified SNOMED: 959783851 (2) Acute deep vein thrombosis (DVT) of both lower extremities ICD Codes: I82.403 - Acute embolism and thrombosis of unspecified deep veins of lower extremity, bilateral SNOMED: 815259090446 (3) Leukocytosis ICD Codes: D72.829 - Elevated white blood cell count, unspecified SNOMED: 701981251, 197690545 (4) Pulmonary infiltrates ICD Codes: R91.8 - Other nonspecific abnormal finding of lung field SNOMED: 140380944 (5) Interstitial lung disease ICD Codes: J84.9 - Interstitial pulmonary disease, unspecified SNOMED: 75462889, 277562623 (6) Pulmonary HTN ICD Codes: I27.2 - Other secondary pulmonary hypertension SNOMED: 74332313 Status: stable Status Narrative - Hematology consulted, appreciate rec's - Monitor cell counts, retic - Continue hydroxyurea 500mg bid - Continue Folic acid - IVFs - O2 - Pain mgmt consulted - Cont lovenox + coumadin for DVT per heme/onc - Appreciate pulm re'cs--CXR w/ more fluid overload than pneumonia so will hold off on antibiotics - Consider diuresis - Check sputum culture - Guaifenesin PRN - Duonebs PRN DVT Prophylaxis: SCD, Lovenox + coumadin Code Status: Full Hospital Classification Declaration: Based on this initial evaluation, and depending on the patient's clinical course, I anticipate that this patient will require hospitalization for 1-2 days for sickle cell crisis, DVT, and close respiratory/hemodynamic monitoring. Disposition: Once the patient is stable to leave the hospital, I anticipate the patient will likely be discharged to the following environment: home vs home w/ hh I spent 40minutes on this patient's case, and 21 minutes were dedicated to counseling and/or care coordination. Discussed with patient/family, nursing staff, SW/CM, heme/onc, pulm regarding clinical status, treatment course, and disposition planning. Time of note may not reflect time of encounter. Subjective Date patient seen: Oct 29, 2016 Time patient seen: 12:13 ROS Limited/Unobtainable: No Allergies: Coded Allergies: AMPICILLIN (Verified Allergy, Unknown, 08/03/16) KETOROLAC (Verified Allergy, Unknown, 08/03/16) MORPHINE (Verified Allergy, Unknown, 08/03/16) PHENYTOIN (Verified Allergy, Unknown, 08/03/16) Subjective No acute overnight events, no new major complaints, sickle cell pain slightly better today, c/o mild headache, requesting tylenol Objective Last 24 Hour Vital Signs Date Time Temp Pulse Resp B/P Pulse Ox O2 Delivery O2 Flow Rate FiO2 10/29/16 09:25 98.2 10/29/16 08:00 98.2 80 18 120/78 96 Nasal Cannula 5.0 10/29/16 06:49 Nasal Cannula 5.0 10/29/16 06:48 99 Nasal Cannula 5.0 10/29/16 06:47 93 18 Nasal Cannula 5.0 10/29/16 04:38 98.2 70 18 130/72 96 Room Air 10/29/16 00:26 98.1 80 19 120/70 97 Room Air 10/28/16 20:00 97.3 85 18 134/77 97 Nasal Cannula 5.0 10/28/16 19:10 98 Nasal Cannula 5.0 40 10/28/16 19:10 Nasal Cannula 5.0 40 10/28/16 19:10 95 18 Nasal Cannula 5.0 40 10/28/16 16:00 97.0 88 18 128/78 98 Nasal Cannula 5.0 Intake and Output 10/28/16 10/29/16 19:00 07:00 Intake Total 500 ml Output Total 950 ml 700 ml Balance -450 ml -700 ml Intake Oral 500 ml Output Urine Total 950 ml 700 ml # Voids 4 Laboratory Tests 10/29/16 07:30: White Blood Count 11.1H, Red Blood Count 2.57L, Hemoglobin 7.9L, Hematocrit 24.1L, Mean Corpuscular Volume 94, Mean Corpuscular Hemoglobin 30.8, Mean Corpuscular Hemoglobin Concent 32.7, Red Cell Distribution Width 21.7H, Platelet Count 382, Mean Platelet Volume 7.3, Neutrophils (%) (Auto) , Lymphocytes (%) (Auto) , Monocytes (%) (Auto) , Eosinophils (%) (Auto) , Basophils (%) (Auto) , Differential Total Cells Counted 100, Neutrophils % ( Manual) 51, Lymphocytes % (Manual) 27, Monocytes % (Manual) 9, Eosinophils % ( Manual) 13H, Basophils % (Manual) 0, Band Neutrophils 0, Platelet Estimate Adequate, Platelet Morphology Normal, Hypochromasia 1+, Anisocytosis 2+, Sickle Cells RareH, Prothrombin Time 12.9H, Prothromb Time International Ratio 1.3H, Sodium Level 142, Potassium Level 5.2H, Chloride Level 102, Carbon Dioxide Level 33H, Anion Gap 7, Blood Urea Nitrogen 22, Creatinine 1.0, Estimat Glomerular Filtration Rate > 60, Glucose Level 114H, Calcium Level 9.5, Lactate Dehydrogenase 572H Height (Feet): 5 Height (Inches): 11.00 Weight (Pounds): 153 Objective General: alert, cooperative, no distress, appears stated age Head: normocephalic, without obvious abnormality, atraumatic Eyes: conjunctivae/corneas clear. PERRL, EOM's intact Throat: lips, mucosa, and tongue normal. MMM Neck: supple, symmetrical, trachea midline, and no JVD Lungs: clear to auscultation bilaterally Heart: regular rate and rhythm, S1, S2 normal, no murmur, click, rub or gallop Abdomen: soft, non-tender, non-distended, bowel sounds normal; no masses or organomegaly Pulses: 2+ and symmetric Skin: skin color, texture, turgor normal; no rashes or lesions Neurologic: grossly normal, no focal deficits ADAM CONTE Oct 29, 2016 12:15
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
[2016-10-29 16:00] VITALS: BP 140/88
--- NOTE | 2016-10-29 17:48 | General Progress Note ---
Assessment/Plan Assessment/Plan ASSESSMENT: 1. Sickle cell crisis with no evidence of acute chest syndrome. Know this patient very well from prior hospital admissions. Has been seen in past by pain service and had been on extraordinarily high doses of pain meds including methadone. Now retic count is elevated, at 4 on admission. On prior crisis has presented with elevated retic count. Hgb >7 goal, patient continues to be in pain at this time, on incentive spirometry. Mary is nml. He has a hx of noncompliance, has extremely high opioid tolerance. Also says will come in next week for appt to see me (however, has a hx of noncompliance) 2. DVT of the lower ext - await final results --> started on lovenox and coumadin-->given noncompliance, begin on xarelto 3. Leukocytosis due to reactive process from anemia--counts decreasing 4 Avascular Necrosis of the hip 5. Pain from the sickle cell crisis 6. Pneumonia hx is now resolved RECOMMENDATIONS: - Begin xarelto and will need for 3-6mo - Transfuse to hgb >7 - Continue hydroxyurea 500mg bid as well as folic acid - Check retic as daily - Pain management recs - DVT Prophylaxis with SCDs --DC lovenox and coumadin d/t noncompliance - Out patient Hematology follow up ( next wk, however patient with hx noncompliance) - [facility] staff Subjective Constitutional: Reports: no symptoms HEENT: Reports: no symptoms Cardiovascular: Reports: no symptoms Respiratory: Reports: no symptoms Gastrointestinal/Abdominal: Reports: no symptoms Genitourinary: Reports: no symptoms 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: Reports: no symptoms Endocrine: Reports: no symptoms Hematologic/Lymphatic: Reports: anemia Allergies: Coded Allergies: AMPICILLIN (Verified Allergy, Unknown, 08/03/16) KETOROLAC (Verified Allergy, Unknown, 08/03/16) MORPHINE (Verified Allergy, Unknown, 08/03/16) PHENYTOIN (Verified Allergy, Unknown, 08/03/16) Subjective pt complains of generalized pain, is drowsy, on supplemental O2 Objective Last 24 Hour Vital Signs Date Time Temp Pulse Resp B/P Pulse Ox O2 Delivery O2 Flow Rate FiO2 10/29/16 17:19 98.2 10/29/16 16:00 98.1 100 18 140/88 100 Nasal Cannula 5.0 10/29/16 13:24 98.2 4/15/17 12:00 97.9 91 18 130/75 96 Nasal Cannula 5.0 10/29/16 08:00 98.2 80 18 120/78 96 Nasal Cannula 5.0 10/29/16 06:49 Nasal Cannula 5.0 10/29/16 06:48 99 Nasal Cannula 5.0 10/29/16 06:47 93 18 Nasal Cannula 5.0 10/29/16 04:38 98.2 70 18 130/72 96 Room Air 10/29/16 00:26 98.1 80 19 120/70 97 Room Air 10/28/16 20:00 97.3 85 18 134/77 97 Nasal Cannula 5.0 10/28/16 19:10 98 Nasal Cannula 5.0 40 10/28/16 19:10 Nasal Cannula 5.0 40 10/28/16 19:10 95 18 Nasal Cannula 5.0 40 Intake and Output 10/28/16 10/29/16 19:00 07:00 Intake Total 500 ml Output Total 950 ml 700 ml Balance -450 ml -700 ml Intake Oral 500 ml Output Urine Total 950 ml 700 ml # Voids 4 Laboratory Tests 10/29/16 07:30: White Blood Count 11.1H, Red Blood Count 2.57L, Hemoglobin 7.9L, Hematocrit 24.1L, Mean Corpuscular Volume 94, Mean Corpuscular Hemoglobin 30.8, Mean Corpuscular Hemoglobin Concent 32.7, Red Cell Distribution Width 21.7H, Platelet Count 382, Mean Platelet Volume 7.3, Neutrophils (%) (Auto) , Lymphocytes (%) (Auto) , Monocytes (%) (Auto) , Eosinophils (%) (Auto) , Basophils (%) (Auto) , Differential Total Cells Counted 100, Neutrophils % ( Manual) 51, Lymphocytes % (Manual) 27, Monocytes % (Manual) 9, Eosinophils % ( Manual) 13H, Basophils % (Manual) 0, Band Neutrophils 0, Platelet Estimate Adequate, Platelet Morphology Normal, Hypochromasia 1+, Anisocytosis 2+, Sickle Cells RareH, Prothrombin Time 12.9H, Prothromb Time International Ratio 1.3H, Sodium Level 142, Potassium Level 5.2H, Chloride Level 102, Carbon Dioxide Level 33H, Anion Gap 7, Blood Urea Nitrogen 22, Creatinine 1.0, Estimat Glomerular Filtration Rate > 60, Glucose Level 114H, Calcium Level 9.5, Lactate Dehydrogenase 572H Height (Feet): 5 Height (Inches): 11.00 Weight (Pounds): 153 General Appearance: mild distress EENT: PERRL/EOMI Neck: non-tender Cardiovascular: normal peripheral pulses Respiratory/Chest: chest wall non-tender Abdomen: normal bowel sounds Extremities: normal range of motion Edema: no edema noted Leg (L), no edema noted Leg (R), no edema noted Pedal (L) , no edema noted Pedal (R) Neurologic: chemist water purification 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 Skin: normal pigmentation ALFREDO FRANK Oct 29, 2016 17:48
[2016-10-29 20:00] VITALS: BP 120/93
[2016-10-30 00:07] VITALS: BP 128/80
[2016-10-30] MEDS: DiphenhydrAMINE 50mg/ml Inj IVP PRN ×6 (00:45→20:47)
[2016-10-30 04:04] VITALS: BP 137/85
[2016-10-30 05:18] LABS: INR 1.4 (0.9-1.1); PROTHROMBIN TIME 14.4 SEC (9.30-11.50)
[2016-10-30] MEDS ORDERED: Xarelto 15mg tab ORAL SCH (07:20)
[2016-10-30 07:49] VITALS: BP 140/90
[2016-10-30] MEDS: Xarelto 15mg tab ORAL SCH ×2 (08:41→20:59)
[2016-10-30] MEDS: Hydroxyurea 500mg cap ORAL SCH ×2 (08:41→17:53)
[2016-10-30 12:00] VITALS: BP 121/70
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
--- NOTE | 2016-10-30 13:56 | General Progress Note ---
Assessment/Plan Assessment/Plan ASSESSMENT: 1. Sickle cell crisis with no evidence of acute chest syndrome. Know this patient very well from prior hospital admissions. Has been seen in past by pain service and had been on extraordinarily high doses of pain meds including methadone. Now retic count is elevated, at 4 on admission. On prior crisis has presented with elevated retic count. Hgb >7 goal, patient continues to be in pain at this time, on incentive spirometry. Mary is nml. He has a hx of noncompliance, has extremely high opioid tolerance. Also says will come in next week for appt to see me (however, has a hx of noncompliance) 2. DVT of the lower ext - await final results --> started on lovenox and coumadin-->given noncompliance, begin on xarelto 3. Leukocytosis due to reactive process from anemia--counts decreasing 4 Avascular Necrosis of the hip 5. Pain from the sickle cell crisis- on pain meds 6. Pneumonia hx is now resolved RECOMMENDATIONS: - Begin xarelto and will need for 3-6mo - Transfuse to hgb >7 - Continue hydroxyurea 500mg bid as well as folic acid - Check retic as daily - Pain management recs - DVT Prophylaxis with SCDs --DC lovenox and coumadin d/t noncompliance - Out patient Hematology follow up ( next wk, however patient with hx noncompliance) - [facility] staff Subjective Constitutional: Reports: no symptoms HEENT: Reports: no symptoms Cardiovascular: Reports: no symptoms Respiratory: Reports: no symptoms Gastrointestinal/Abdominal: Reports: no symptoms Genitourinary: Reports: no symptoms 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: Reports: no symptoms Endocrine: Reports: no symptoms Hematologic/Lymphatic: Reports: anemia Allergies: Coded Allergies: AMPICILLIN (Verified Allergy, Unknown, 08/03/16) KETOROLAC (Verified Allergy, Unknown, 08/03/16) MORPHINE (Verified Allergy, Unknown, 08/03/16) PHENYTOIN (Verified Allergy, Unknown, 08/03/16) Subjective pt A/O, in no distress, no SOB Objective Last 24 Hour Vital Signs Date Time Temp Pulse Resp B/P Pulse Ox O2 Delivery O2 Flow Rate FiO2 10/30/16 10:55 112 20 Nasal Cannula 5.0 10/30/16 10:55 Nasal Cannula 5.0 40 10/30/16 10:55 99 Nasal Cannula 5.0 40 10/30/16 09:18 97.5 10/30/16 07:49 97.5 78 18 140/90 100 Nasal Cannula 5.0 10/30/16 04:04 97.5 78 18 137/85 100 Nasal Cannula 5.0 10/30/16 00:55 97.3 10/30/16 00:07 97.3 85 18 128/80 94 Nasal Cannula 5.0 10/29/16 20:00 97.9 86 19 120/93 97 Nasal Cannula 5.0 10/29/16 19:38 Nasal Cannula 5.0 40 10/29/16 19:38 99 Nasal Cannula 5.0 40 10/29/16 19:38 103 20 Nasal Cannula 5.0 10/29/16 16:00 98.1 100 18 140/88 100 Nasal Cannula 5.0 Intake and Output 10/29/16 10/30/16 19:00 07:00 Intake Total 360 ml Output Total 1800 ml 700 ml Balance -1800 ml -340 ml Intake Oral 360 ml Output Urine Total 1800 ml 700 ml # Voids 2 Laboratory Tests 10/30/16 04:31: Prothrombin Time 14.4H, Prothromb Time International Ratio 1.4H Height (Feet): 5 Height (Inches): 11.00 Weight (Pounds): 153 General Appearance: no apparent distress EENT: PERRL/EOMI Neck: non-tender Cardiovascular: normal peripheral pulses Respiratory/Chest: chest wall non-tender Abdomen: normal bowel sounds Extremities: normal range of motion Edema: no edema noted Leg (L), no edema noted Leg (R), no edema noted Pedal (L) , no edema noted Pedal (R) 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
--- NOTE | 2016-10-30 14:02 | General Progress Note ---
Assessment/Plan Assessment/Plan Problem List: (1) Sickle cell crisis ICD Codes: D57.00 - Hb-SS disease with crisis, unspecified SNOMED: 806332343 (2) Acute deep vein thrombosis (DVT) of both lower extremities ICD Codes: I82.403 - Acute embolism and thrombosis of unspecified deep veins of lower extremity, bilateral SNOMED: 659960944702 (3) Leukocytosis ICD Codes: D72.829 - Elevated white blood cell count, unspecified SNOMED: 695101290, 558966951 (4) Pulmonary infiltrates ICD Codes: R91.8 - Other nonspecific abnormal finding of lung field SNOMED: 793219289 (5) Interstitial lung disease ICD Codes: J84.9 - Interstitial pulmonary disease, unspecified SNOMED: 33227270, 469500143 (6) Pulmonary HTN ICD Codes: I27.2 - Other secondary pulmonary hypertension SNOMED: 54091246 Status: stable Status Narrative - Hematology consulted, appreciate rec's - Monitor cell counts, retic - Continue hydroxyurea 500mg bid - Continue Folic acid - IVFs - O2 - Pain mgmt consulted - Cont lovenox + coumadin for DVT per heme/onc - Appreciate pulm re'cs--CXR w/ more fluid overload than pneumonia so will hold off on antibiotics - Consider diuresis - Check sputum culture - Guaifenesin PRN - Duonebs PRN DVT Prophylaxis: SCD, Lovenox + coumadin Code Status: Full Hospital Classification Declaration: Based on this initial evaluation, and depending on the patient's clinical course, I anticipate that this patient will require hospitalization for 1-2 days for sickle cell crisis, DVT, and close respiratory/hemodynamic monitoring. Disposition: Once the patient is stable to leave the hospital, I anticipate the patient will likely be discharged to the following environment: home vs home w/ hh I spent 40minutes on this patient's case, and 20 minutes were dedicated to counseling and/or care coordination. Discussed with patient/family, nursing staff, SW/CM, heme/onc, pulm regarding clinical status, treatment course, and disposition planning. Time of note may not reflect time of encounter. Subjective Date patient seen: Oct 30, 2016 Time patient seen: 14:02 ROS Limited/Unobtainable: No Allergies: Coded Allergies: AMPICILLIN (Verified Allergy, Unknown, 08/03/16) KETOROLAC (Verified Allergy, Unknown, 08/03/16) MORPHINE (Verified Allergy, Unknown, 08/03/16) PHENYTOIN (Verified Allergy, Unknown, 08/03/16) Subjective No acute overnight events, no new major complaints, sickle cell pain slightly better today, c/o mild headache, requesting tylenol Objective Last 24 Hour Vital Signs Date Time Temp Pulse Resp B/P Pulse Ox O2 Delivery O2 Flow Rate FiO2 10/30/16 10:55 112 20 Nasal Cannula 5.0 10/30/16 10:55 Nasal Cannula 5.0 40 10/30/16 10:55 99 Nasal Cannula 5.0 40 10/30/16 09:18 97.5 10/30/16 07:49 97.5 78 18 140/90 100 Nasal Cannula 5.0 10/30/16 04:04 97.5 78 18 137/85 100 Nasal Cannula 5.0 10/30/16 00:55 97.3 10/30/16 00:07 97.3 85 18 128/80 94 Nasal Cannula 5.0 10/29/16 20:00 97.9 86 19 120/93 97 Nasal Cannula 5.0 10/29/16 19:38 Nasal Cannula 5.0 40 10/29/16 19:38 99 Nasal Cannula 5.0 40 10/29/16 19:38 103 20 Nasal Cannula 5.0 10/29/16 16:00 98.1 100 18 140/88 100 Nasal Cannula 5.0 Intake and Output 10/29/16 10/30/16 19:00 07:00 Intake Total 360 ml Output Total 1800 ml 700 ml Balance -1800 ml -340 ml Intake Oral 360 ml Output Urine Total 1800 ml 700 ml # Voids 2 Laboratory Tests 10/30/16 04:31: Prothrombin Time 14.4H, Prothromb Time International Ratio 1.4H Height (Feet): 5 Height (Inches): 11.00 Weight (Pounds): 153 Objective General: alert, cooperative, no distress, appears stated age Head: normocephalic, without obvious abnormality, atraumatic Eyes: conjunctivae/corneas clear. PERRL, EOM's intact Throat: lips, mucosa, and tongue normal. MMM Neck: supple, symmetrical, trachea midline, and no JVD Lungs: clear to auscultation bilaterally Heart: regular rate and rhythm, S1, S2 normal, no murmur, click, rub or gallop Abdomen: soft, non-tender, non-distended, bowel sounds normal; no masses or organomegaly Pulses: 2+ and symmetric Skin: skin color, texture, turgor normal; no rashes or lesions Neurologic: grossly normal, no focal deficits ADAM CONTE Oct 30, 2016 14:02
[2016-10-30 16:00] VITALS: BP 130/80
[2016-10-30 20:08] VITALS: BP 124/73
[2016-10-31 00:09] VITALS: BP 120/73
[2016-10-31] MEDS: DiphenhydrAMINE 50mg/ml Inj IVP PRN ×6 (00:47→21:13)
[2016-10-31 04:14] VITALS: BP 125/75
[2016-10-31 08:53] VITALS: BP 131/83
[2016-10-31] MEDS: Xarelto 15mg tab ORAL SCH (09:03)
[2016-10-31 10:32] LABS: OTHERS PATHOLOGIST COMMENT
[2016-10-31 12:49] VITALS: BP 127/79
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
[2016-10-31 17:00] VITALS: BP 128/75
--- NOTE | 2016-10-31 17:57 | General Progress Note ---
Assessment/Plan Assessment/Plan ASSESSMENT: 1. Sickle cell crisis with no evidence of acute chest syndrome. Know this patient very well from prior hospital admissions. Has been seen in past by pain service and had been on extraordinarily high doses of pain meds including methadone. Now retic count is elevated, at 4 on admission. On prior crisis has presented with elevated retic count. Hgb >7 goal, patient continues to be in pain at this time, on incentive spirometry. Bilshaina is nml. He has a hx of noncompliance, has extremely high opioid tolerance. Also says will come in next week for appt to see me (however, has a hx of noncompliance) 2. DVT of the lower ext - await final results --> started on lovenox and coumadin-->given noncompliance, begin on xarelto 3. Leukocytosis due to reactive process from anemia--counts decreasing 4 Avascular Necrosis of the hip 5. Pain from the sickle cell crisis- on pain meds 6. Pneumonia hx is now resolved RECOMMENDATIONS: - Continue xarelto and will need for 3-6mo - Transfuse to hgb >7 - Continue hydroxyurea 500mg bid as well as folic acid - Check retic as daily - Pain management recs - DVT Prophylaxis with SCDs - Out patient Hematology follow up - [facility] staff Subjective Constitutional: Reports: no symptoms HEENT: Reports: no symptoms Cardiovascular: Reports: no symptoms Respiratory: Reports: no symptoms Gastrointestinal/Abdominal: Reports: no symptoms Genitourinary: Reports: no symptoms 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: Reports: no symptoms Endocrine: Reports: no symptoms Hematologic/Lymphatic: Reports: anemia Allergies: Coded Allergies: AMPICILLIN (Verified Allergy, Unknown, 08/03/16) KETOROLAC (Verified Allergy, Unknown, 08/03/16) MORPHINE (Verified Allergy, Unknown, 08/03/16) PHENYTOIN (Verified Allergy, Unknown, 08/03/16) Subjective pt continues to have pain, better controlled with opiates Objective Last 24 Hour Vital Signs Date Time Temp Pulse Resp B/P Pulse Ox O2 Delivery O2 Flow Rate FiO2 10/31/16 17:36 97.9 10/31/16 17:14 Nasal Cannula 5.0 40 10/31/16 17:14 99 22 Nasal Cannula 5.0 10/31/16 17:14 99 Nasal Cannula 5.0 40 10/31/16 17:00 97.9 89 20 128/75 96 Room Air 10/31/16 12:49 98.0 85 20 127/79 96 Room Air 10/31/16 08:53 98.4 79 20 131/83 95 Room Air 10/31/16 04:14 98.1 75 18 125/75 98 Nasal Cannula 5.0 10/31/16 01:02 97.9 10/31/16 00:09 97.9 87 19 120/73 96 Nasal Cannula 5.0 10/30/16 20:08 98.1 87 18 124/73 100 Nasal Cannula 5.0 10/30/16 19:54 Nasal Cannula 5.0 40 10/30/16 19:53 99 Nasal Cannula 5.0 40 10/30/16 19:53 106 20 Nasal Cannula 5.0 Intake and Output 10/30/16 10/31/16 19:00 07:00 Intake Total 240 ml Output Total 2025 ml 1400 ml Balance -2025 ml -1160 ml Intake Oral 240 ml Output Urine Total 2025 ml 1400 ml # Voids 2 Height (Feet): 5 Height (Inches): 11.00 Weight (Pounds): 153 General Appearance: lethargic EENT: PERRL/EOMI Neck: non-tender Cardiovascular: normal peripheral pulses Respiratory/Chest: chest wall non-tender Abdomen: normal bowel sounds Extremities: normal range of motion Edema: no edema noted Leg (L), no edema noted Leg (R), no edema noted Pedal (L) , no edema noted Pedal (R) Neurologic: oriented x 3 Skin: warm/dry Marco Dutton Oct 31, 2016 17:57
[2016-10-31 20:00] VITALS: BP 131/71
--- NOTE | 2016-10-31 22:39 | Pulmonology Progress Note ---
Assessment/Plan Problems: (1) Pneumonia (2) severe diastolic heart disease (3) Pulmonary HTN (4) Interstitial lung disease (5) Sickle cell crisis (6) DVT (deep venous thrombosis) Assessment/Plan improving less cough pain is better controlled ok to dc home with outpatient f/u Subjective ROS Limited/Unobtainable: No Constitutional: Reports: fatigue Allergies: Coded Allergies: AMPICILLIN (Verified Allergy, Unknown, 08/03/16) KETOROLAC (Verified Allergy, Unknown, 08/03/16) MORPHINE (Verified Allergy, Unknown, 08/03/16) PHENYTOIN (Verified Allergy, Unknown, 08/03/16) Objective Last 24 Hour Vital Signs Date Time Temp Pulse Resp B/P Pulse Ox O2 Delivery O2 Flow Rate FiO2 10/31/16 20:00 98.2 89 19 131/71 90 Nasal Cannula 5.0 10/31/16 19:18 97 Nasal Cannula 5.0 40 10/31/16 19:18 97 22 Nasal Cannula 5.0 10/31/16 19:18 Nasal Cannula 5.0 40 10/31/16 17:36 97.9 10/31/16 17:14 Nasal Cannula 5.0 40 10/31/16 17:14 99 22 Nasal Cannula 5.0 10/31/16 17:14 99 Nasal Cannula 5.0 40 10/31/16 17:00 97.9 89 20 128/75 96 Room Air 10/31/16 12:49 98.0 85 20 127/79 96 Room Air 10/31/16 08:53 98.4 79 20 131/83 95 Room Air 10/31/16 04:14 98.1 75 18 125/75 98 Nasal Cannula 5.0 10/31/16 01:02 97.9 10/31/16 00:09 97.9 87 19 120/73 96 Nasal Cannula 5.0 Intake and Output 10/30/16 10/31/16 19:00 07:00 Intake Total 240 ml Output Total 2025 ml 1400 ml Balance -2025 ml -1160 ml Intake Oral 240 ml Output Urine Total 2025 ml 1400 ml # Voids 2 Objective General Appearance: WD/WN, no apparent distress Lines, tubes and drains: peripheral HEENT: normocephalic, atraumatic Neck: non-tender, supple Respiratory/Chest: chest wall non-tender, rhonchi - bilaterally Cardiovascular/Chest: normal peripheral pulses, normal rate Abdomen: normal bowel sounds Genitourinary/Rectal: normal genital exam Extremities: normal range of motion Current Medications Medications (Trade) Dose Ordered Sig/Anthony Route PRN Reason Start Time Stop Time Status Last Admin Dose Admin Acetaminophen (Tylenol) 650 mg Q6H PRN ORAL Mild Pain/Temp > 100.5 10/29/16 13:00 11/28/16 12:59 10/31/16 00:03 Albuterol/ Ipratropium (DuoNeb 0.5-3(2.5)mg/3ml) 3 ml Q4H PRN HHN Shortness of Breath/Wheezing 10/28/16 13:30 11/02/16 13:29 Diphenhydramine HCl (Benadryl) 50 mg Q4H PRN IVP Itching 10/26/16 01:45 11/25/16 01:44 10/31/16 21:13 Folic Acid (Folate) 1 mg DAILY ORAL 10/26/16 09:00 11/25/16 08:59 10/31/16 09:03 Gabapentin (Neurontin) 600 mg THREE TIMES A DAY ORAL 10/26/16 18:00 11/25/16 17:59 10/31/16 17:06 Guaifenesin (Robitussin) 200 mg Q4H PRN ORAL For Cough 10/26/16 15:00 11/25/16 14:59 Hydromorphone HCl (Dilaudid) 2 mg Q4H PRN IVP pain 10/26/16 01:45 11/02/16 01:44 10/31/16 21:15 Methadone HCl (Methadone HCl) 50 mg Q6HR ORAL 10/26/16 12:00 11/02/16 11:59 10/31/16 17:13 Ondansetron HCl (Zofran) 4 mg Q4H PRN IVP Nausea & Vomiting 10/26/16 02:00 11/25/16 01:59 Rivaroxaban (Xarelto) 15 mg Q12HR ORAL 10/30/16 09:00 11/29/16 07:19 10/31/16 09:03 KENNEDY MOORE Oct 31, 2016 22:39
[2016-11-01] VITALS: BP 123/92
[2016-11-01] MEDS: Xarelto 15mg tab ORAL SCH ×3 (00:22→21:14)
[2016-11-01] MEDS: DiphenhydrAMINE 50mg/ml Inj IVP PRN ×6 (01:06→23:51)
[2016-11-01 04:00] VITALS: BP 113/69
[2016-11-01 08:37] LABS: EOSINOPHILS % (AUTO) 11.3 % (0.0-3.0); MEAN CORPUSCULAR HEMOGLOBIN 30.3 PG (27.0-31.0); MEAN CORPUSCULAR HGB CONC 32.2 G/DL (32.0-36.0); MEAN CORPUSCULAR VOLUME 94 FL (80-99); MEAN PLATELET VOLUME 7.4 FL (6.5-10.1); MONOCYTES % (AUTO) 5.4 % (1.0-10.0); NEUTROPHILS % (AUTO) 43.3 % (45.0-75.0); PLATELET COUNT 397 K/UL (150-450); RED BLOOD COUNT 2.71 M/UL (4.70-6.10); RED CELL DISTRIBUTION WIDTH 21.5 % (11.6-14.8); WHITE BLOOD COUNT 13.7 K/UL (4.8-10.8)
--- NOTE | 2016-11-01 08:44 | Cardiology Report ---
APPROVED REPORT EXAM: Two-dimensional and M-mode echocardiogram with Doppler and color Doppler. INDICATION LV function M-Mode DIMENSIONS IVSd1.1 (0.7-1.1cm)Left Atrium (MM)3.6 (1.6-4.0cm) LVDd5.4 (3.5-5.6cm)Aortic Root3.1 (2.0-3.7cm) PWd1.5 (0.7-1.1cm)Aortic Cusp Exc.2.2 (1.5-2.0cm) LVDs3.4 (2.5-4.0cm) PWs1.8 cm Normal left ventricular chamber size, systolic function and wall motion. Left ventricular ejection fraction estimated to be 65 %. Mild left ventricular hypertrophy on 2-D. Anterior Echo-free space, may be due to pericardial fat or effusion. Left atrial size at upper limits of normal. Right cardiac chamber sizes are within normal limits. Mild focal aortic valve sclerosis with adequate cusp excursion Mildly thickened mitral valve leaflets with normal excursion. Mild mitral annulus and aortic root calcification. Pulmonic valve not well visualized. Normal tricuspid valve structure. IVC dilated at 2.2cm with slight physiologic collapse suggestive of elevated RAP. A color flow and spectral Doppler study was performed and revealed: No aortic regurgitation. Trace mitral regurgitation. Mitral diastolic velocities suggest normal left ventricular relaxation diastolic function. Mild to moderate tricuspid regurgitation. Tricuspid systolic velocities suggests peak right ventricular systolic pressure of 79 mmHg, consistent with severe pulmonary hypertension. Trace pulmonic regurgitation present.
[2016-11-01 08:57] VITALS: BP 136/101
[2016-11-01 09:26] LABS: ALANINE AMINOTRANSFERASE 64 U/L (3-41); ALBUMIN/GLOBULIN RATIO 1.6 (1.0-2.7); ANION GAP 10 (5-15); ASPARTATE AMINO TRANSFERASE 70 U/L (5-40); CALCIUM 9.7 mg/dL (8.6-10.2); CARBON DIOXIDE 33 mEQ/L (20-30); CHLORIDE 98 mEQ/L (98-107); CREATININE 0.8 mg/dL (0.7-1.2); CRP QUANT 1.6 mg/dL (< 0.5); GLOMERULAR FILTRATION RATE > 60 mL/min (>60); MAGNESIUM 1.9 mg/dL (1.7-2.5); PHOSPHORUS 4.4 mg/dL (2.5-4.8); POTASSIUM 5.1 mEQ/L (3.4-4.9); SODIUM 141 mEQ/L (135-145); TOTAL PROTEIN 6.6 g/dL (6.6-8.7)
[2016-11-01 09:34] LABS: ERYTHROCYTE SEDIMENTATION RATE 22 MM/HR (0-15)
[2016-11-01 09:43] LABS: BILIRUBIN,DIRECT 0.3 mg/dL (0.1-0.3); HEMOLYSIS 19
[2016-11-01 12:37] VITALS: BP 128/91
--- NOTE | 2016-11-01 13:54 | General Progress Note ---
Assessment/Plan Assessment/Plan ASSESSMENT: 1. Sickle cell crisis with no evidence of acute chest syndrome. Know this patient very well from prior hospital admissions. Has been seen in past by pain service and had been on extraordinarily high doses of pain meds including methadone. Now retic count is elevated, at 4 on admission. On prior crisis has presented with elevated retic count. Hgb >7 goal, patient continues to be in pain at this time, on incentive spirometry. Bili is nml. He has a hx of noncompliance, has extremely high opioid tolerance. Also says will come in next week for appt to see me (however, has a hx of noncompliance) 2. DVT of the lower ext - await final results --> started on lovenox and coumadin-->given noncompliance, begin on xarelto 3. Leukocytosis due to reactive process from anemia--counts decreasing 4 Avascular Necrosis of the hip 5. Pain from the sickle cell crisis- on pain meds 6. Pneumonia hx is now resolved RECOMMENDATIONS: - Continue xarelto and will need for 3-6mo - Transfuse to hgb >7 - Continue hydroxyurea 500mg bid as well as folic acid - Check retic as daily - Pain management recs - DVT Prophylaxis with SCDs - Out patient Hematology follow up- okay for DC - [facility] staff Subjective Constitutional: Reports: malaise, no symptoms HEENT: Reports: no symptoms Cardiovascular: Reports: no symptoms Respiratory: Reports: no symptoms Gastrointestinal/Abdominal: Reports: no symptoms Genitourinary: Reports: no symptoms 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: Reports: no symptoms Endocrine: Reports: no symptoms Hematologic/Lymphatic: Reports: anemia Allergies: Coded Allergies: AMPICILLIN (Verified Allergy, Unknown, 08/03/16) KETOROLAC (Verified Allergy, Unknown, 08/03/16) MORPHINE (Verified Allergy, Unknown, 08/03/16) PHENYTOIN (Verified Allergy, Unknown, 08/03/16) Subjective pt continues to have pain, better controlled with opiates, reports feeling unwell for DC Objective Last 24 Hour Vital Signs Date Time Temp Pulse Resp B/P Pulse Ox O2 Delivery O2 Flow Rate FiO2 11/01/16 12:37 97.0 89 19 128/91 95 Nasal Cannula 2.0 11/01/16 12:07 98.1 11/01/16 09:24 98.1 11/01/16 08:57 98.1 79 19 136/101 94 Nasal Cannula 2.0 11/01/16 07:19 93 22 Room Air 11/01/16 07:19 Room Air 11/01/16 07:19 93 Room Air 11/01/16 04:00 97.8 74 19 113/69 Nasal Cannula 5.0 11/01/16 00:00 98.1 89 19 123/92 98 Nasal Cannula 5.0 10/31/16 20:00 98.2 89 19 131/71 90 Nasal Cannula 5.0 10/31/16 19:18 97 Nasal Cannula 5.0 40 10/31/16 19:18 97 22 Nasal Cannula 5.0 10/31/16 19:18 Nasal Cannula 5.0 40 10/31/16 17:14 Nasal Cannula 5.0 40 10/31/16 17:14 99 22 Nasal Cannula 5.0 10/31/16 17:14 99 Nasal Cannula 5.0 40 10/31/16 17:00 97.9 89 20 128/75 96 Room Air Intake and Output 10/31/16 11/01/16 19:00 07:00 Intake Total 480 ml 750 ml Output Total 1400 ml 500 ml Balance -920 ml 250 ml Intake Oral 480 ml 750 ml Output Urine Total 1400 ml 500 ml # Voids 4 Laboratory Tests 11/01/16 08:00: White Blood Count 13.7H, Red Blood Count 2.71L, Hemoglobin 8.2L, Hematocrit 25.4L, Mean Corpuscular Volume 94, Mean Corpuscular Hemoglobin 30.3, Mean Corpuscular Hemoglobin Concent 32.2, Red Cell Distribution Width 21.5H, Platelet Count 397, Mean Platelet Volume 7.4, Neutrophils (%) (Auto) 43.3L, Lymphocytes (%) (Auto) 39.0, Monocytes (%) (Auto) 5.4, Eosinophils (%) (Auto) 11.3H, Basophils (%) (Auto) 1.0, Erythrocyte Sedimentation Rate 22H, Sodium Level 141, Potassium Level 5.1H, Chloride Level 98, Carbon Dioxide Level 33H, Anion Gap 10, Blood Urea Nitrogen 22, Creatinine 0.8, Estimat Glomerular Filtration Rate > 60, Glucose Level 99, Calcium Level 9.7, Phosphorus Level 4.4 , Magnesium Level 1.9, Total Bilirubin 1.1, Direct Bilirubin 0.3, Aspartate Amino Transf (AST/SGOT) 70H, Alanine Aminotransferase (ALT/SGPT) 64H, Alkaline Phosphatase 159H, C-Reactive Protein, Quantitative 1.6H, Total Protein 6.6, Albumin 4.1, Globulin 2.5, Albumin/Globulin Ratio 1.6 Height (Feet): 5 Height (Inches): 11.00 Weight (Pounds): 153 General Appearance: WD/WN EENT: PERRL/EOMI Neck: non-tender Cardiovascular: normal peripheral pulses Respiratory/Chest: chest wall non-tender Abdomen: normal bowel sounds Extremities: normal range of motion Edema: no edema noted Leg (L), no edema noted Leg (R), no edema noted Pedal (L) , no edema noted Pedal (R) Neurologic: oriented x 3 Skin: warm/dry Marco Dutton Nov 01, 2016 13:54
[2016-11-01] MEDS ORDERED: XARELTO15 MG ORAL (14:04)
[2016-11-01] MEDS: HYDROmorphone 4mg tab ORAL PRN ×2 (15:38→22:16)
[2016-11-01 16:12] VITALS: BP 144/95
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
--- NOTE | 2016-11-01 19:20 | Pulmonology Progress Note ---
Assessment/Plan Problems: (1) Pneumonia (2) severe diastolic heart disease (3) Pulmonary HTN (4) Interstitial lung disease (5) Sickle cell crisis (6) DVT (deep venous thrombosis) Assessment/Plan respiratory treatment f/u pulse oximeter titrate fio2 pain control ok to dc home with outpatient f/u Subjective ROS Limited/Unobtainable: No Constitutional: Reports: no symptoms HEENT: Repors: no symptoms Allergies: Coded Allergies: AMPICILLIN (Verified Allergy, Unknown, 08/03/16) KETOROLAC (Verified Allergy, Unknown, 08/03/16) MORPHINE (Verified Allergy, Unknown, 08/03/16) PHENYTOIN (Verified Allergy, Unknown, 08/03/16) Objective Last 24 Hour Vital Signs Date Time Temp Pulse Resp B/P Pulse Ox O2 Delivery O2 Flow Rate FiO2 11/01/16 16:37 97.0 11/01/16 16:12 97.0 79 20 144/95 100 Room Air 11/01/16 15:52 Nasal Cannula 5.0 40 11/01/16 15:52 97 Nasal Cannula 5.0 40 11/01/16 12:37 97.0 89 19 128/91 95 Nasal Cannula 2.0 11/01/16 12:07 98.1 11/01/16 09:24 98.1 11/01/16 08:57 98.1 79 19 136/101 94 Nasal Cannula 2.0 11/01/16 07:19 93 22 Room Air 11/01/16 07:19 Room Air 11/01/16 07:19 93 Room Air 11/01/16 04:00 97.8 74 19 113/69 Nasal Cannula 5.0 11/01/16 00:00 98.1 89 19 123/92 98 Nasal Cannula 5.0 10/31/16 20:00 98.2 89 19 131/71 90 Nasal Cannula 5.0 Intake and Output 10/31/16 11/01/16 19:00 07:00 Intake Total 480 ml 750 ml Output Total 1400 ml 500 ml Balance -920 ml 250 ml Intake Oral 480 ml 750 ml Output Urine Total 1400 ml 500 ml # Voids 4 Objective General Appearance: WD/WN, no apparent distress Lines, tubes and drains: peripheral HEENT: normocephalic, atraumatic Neck: non-tender, supple Respiratory/Chest: chest wall non-tender, rhonchi - bilaterally Cardiovascular/Chest: normal peripheral pulses, normal rate Abdomen: normal bowel sounds Genitourinary/Rectal: normal genital exam Extremities: normal range of motion Laboratory Tests 11/01/16 08:00: White Blood Count 13.7H, Red Blood Count 2.71L, Hemoglobin 8.2L, Hematocrit 25.4L, Mean Corpuscular Volume 94, Mean Corpuscular Hemoglobin 30.3, Mean Corpuscular Hemoglobin Concent 32.2, Red Cell Distribution Width 21.5H, Platelet Count 397, Mean Platelet Volume 7.4, Neutrophils (%) (Auto) 43.3L, Lymphocytes (%) (Auto) 39.0, Monocytes (%) (Auto) 5.4, Eosinophils (%) (Auto) 11.3H, Basophils (%) (Auto) 1.0, Erythrocyte Sedimentation Rate 22H, Sodium Level 141, Potassium Level 5.1H, Chloride Level 98, Carbon Dioxide Level 33H, Anion Gap 10, Blood Urea Nitrogen 22, Creatinine 0.8, Estimat Glomerular Filtration Rate > 60, Glucose Level 99, Calcium Level 9.7, Phosphorus Level 4.4 , Magnesium Level 1.9, Total Bilirubin 1.1, Direct Bilirubin 0.3, Aspartate Amino Transf (AST/SGOT) 70H, Alanine Aminotransferase (ALT/SGPT) 64H, Alkaline Phosphatase 159H, C-Reactive Protein, Quantitative 1.6H, Total Protein 6.6, Albumin 4.1, Globulin 2.5, Albumin/Globulin Ratio 1.6 Current Medications Medications (Trade) Dose Ordered Sig/Anthony Route PRN Reason Start Time Stop Time Status Last Admin Dose Admin Acetaminophen (Tylenol) 650 mg Q6H PRN ORAL Mild Pain/Temp > 100.5 10/29/16 13:00 11/28/16 12:59 11/01/16 08:25 Albuterol/ Ipratropium (DuoNeb 0.5-3(2.5)mg/3ml) 3 ml Q4H PRN HHN Shortness of Breath/Wheezing 10/28/16 13:30 11/02/16 13:29 Diphenhydramine HCl (Benadryl) 50 mg Q4H PRN IVP Itching 10/26/16 01:45 11/25/16 01:44 11/01/16 15:38 Folic Acid (Folate) 1 mg DAILY ORAL 10/26/16 09:00 11/25/16 08:59 11/01/16 08:24 Gabapentin (Neurontin) 600 mg THREE TIMES A DAY ORAL 10/26/16 18:00 11/25/16 17:59 11/01/16 17:14 Guaifenesin (Robitussin) 200 mg Q4H PRN ORAL For Cough 10/26/16 15:00 11/25/16 14:59 Hydromorphone HCl (Dilaudid) 1 mg Q4H PRN IVP for breakthrough pain 11/01/16 18:30 11/08/16 18:29 Hydromorphone HCl (Dilaudid) 12 mg EVERY 4 HOURS PRN ORAL severe pain 11/01/16 14:00 11/08/16 13:59 11/01/16 15:38 Methadone HCl (Methadone HCl) 50 mg Q6HR ORAL 10/26/16 12:00 11/02/16 11:59 11/01/16 17:14 Ondansetron HCl (Zofran) 4 mg Q4H PRN IVP Nausea & Vomiting 10/26/16 02:00 11/25/16 01:59 Rivaroxaban (Xarelto) 15 mg Q12HR ORAL 10/30/16 09:00 11/29/16 07:19 11/01/16 08:26 KENNEDY MOORE Nov 01, 2016 19:20
[2016-11-01] MEDS: HYDROmorphone 1mg/ml Carpuject IVP PRN ×2 (19:50→23:51)
[2016-11-01 20:00] VITALS: BP 120/65
[2016-11-02] VITALS: BP_SYST 118; BP_DIAS 15; BP_DIAS 75
[2016-11-02] MEDS: HYDROmorphone 4mg tab ORAL PRN ×2 (02:21→07:58)
[2016-11-02] MEDS: HYDROmorphone 1mg/ml Carpuject IVP PRN ×2 (03:54→09:19)
[2016-11-02] MEDS: DiphenhydrAMINE 50mg/ml Inj IVP PRN ×2 (03:54→07:58)
[2016-11-02 04:00] VITALS: BP 127/50
[2016-11-02 08:00] VITALS: BP 120/80
[2016-11-02] MEDS: Xarelto 15mg tab ORAL SCH (09:19)
[2016-11-02 12:00] VITALS: BP 118/87
--- NOTE | 2016-11-02 17:08 | General Progress Note ---
Assessment/Plan Assessment/Plan ASSESSMENT: 1. Sickle cell crisis with no evidence of acute chest syndrome. Know this patient very well from prior hospital admissions. Has been seen in past by pain service and had been on extraordinarily high doses of pain meds including methadone. Now retic count is elevated, at 4 on admission. On prior crisis has presented with elevated retic count. Hgb >7 goal, patient continues to be in pain at this time, on incentive spirometry. Mary is nml. He has a hx of noncompliance, has extremely high opioid tolerance. Also says will come in next week for appt to see me (however, has a hx of noncompliance) 2. DVT of the lower ext - await final results --> started on lovenox and coumadin-->given noncompliance, begin on xarelto 3. Leukocytosis due to reactive process from anemia--counts decreasing 4 Avascular Necrosis of the hip 5. Pain from the sickle cell crisis- on pain meds 6. Pneumonia hx is now resolved RECOMMENDATIONS: - Continue xarelto and will need for 3-6mo - Transfuse to hgb >7 - Continue hydroxyurea 500mg bid as well as folic acid - Check retic as daily - Pain management recs - DVT Prophylaxis with SCDs - Out patient Hematology follow up- okay for DC - staff Subjective Constitutional: Reports: no symptoms HEENT: Reports: no symptoms Cardiovascular: Reports: no symptoms Respiratory: Reports: no symptoms Gastrointestinal/Abdominal: Reports: no symptoms Genitourinary: Reports: no symptoms 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: Reports: no symptoms Endocrine: Reports: no symptoms Hematologic/Lymphatic: Reports: anemia Allergies: Coded Allergies: AMPICILLIN (Verified Allergy, Unknown, 08/03/16) KETOROLAC (Verified Allergy, Unknown, 08/03/16) MORPHINE (Verified Allergy, Unknown, 08/03/16) PHENYTOIN (Verified Allergy, Unknown, 08/03/16) Subjective pt continues to use opiates for pain management, DC today, plans to f/u as outpatient Objective Last 24 Hour Vital Signs Date Time Temp Pulse Resp B/P Pulse Ox O2 Delivery O2 Flow Rate FiO2 11/02/16 12:00 97.3 80 19 118/87 97 Room Air 11/02/16 09:49 98.1 11/02/16 08:57 98.1 11/02/16 08:00 98.1 75 17 120/80 91 Room Air 11/02/16 04:00 98.6 87 127/50 Room Air 11/02/16 04:00 95 Nasal Cannula 5.0 11/02/16 03:24 97.9 11/02/16 00:00 100 Nasal Cannula 5.0 11/02/16 00:00 97.9 86 19 118/75 Nasal Cannula 5.0 11/01/16 20:00 97.9 85 21 120/65 92 Nasal Cannula 5.0 11/01/16 19:30 Nasal Cannula 5.0 40 11/01/16 19:30 90 20 Nasal Cannula 2.0 28 11/01/16 19:30 97 Nasal Cannula 5.0 40 Intake and Output 11/01/16 11/02/16 19:00 07:00 Intake Total 360 ml 3000 ml Output Total 1000 ml 1500 ml Balance -640 ml 1500 ml Intake Oral 360 ml 3000 ml Output Urine Total 1000 ml 1500 ml # Voids 3 Height (Feet): 5 Height (Inches): 11.00 Weight (Pounds): 153 General Appearance: WD/WN EENT: normal ENT inspection Neck: non-tender Cardiovascular: normal peripheral pulses Respiratory/Chest: chest wall non-tender Abdomen: normal bowel sounds Extremities: normal range of motion Edema: no edema noted Arm (R), no edema noted Leg (L), no edema noted Leg (R), no edema noted Pedal (L), no edema noted Pedal (R), no edema noted Generalized Neurologic: oriented x 3 Skin: warm/dry Marco Dutton Nov 02, 2016 17:08
--- NOTE | 2016-11-02 17:51 | Discharge Summary ---
Discharge Summary Hospital Course Date of Admission Oct 25, 2016 at 15:45 Date of Discharge Nov 02, 2016 at 12:24 Admitting Diagnosis sickle cell crisis Reason for Hospitalization: sickle cell crisis HPI 40 y/o male with pmh of sickle cell anemia, b/l hip avascular necrosis, chronic pain, opioid dependence who presents with chest pain, back pain, and leg pain. Pt states symptoms are characteristic of his typical sickle cell flare up. He has been having worsening pain for abt 3 days. He also notes a cough with some productive sputum, green in color per ER note. Low grade temp at home. Denies chills, SOB, abd pain, d/c. Denies recent travel, sick contacts, trauma. In ER, concern for PNA--pt given ceftriaxone. Also found to have DVT and given lovenox. Consultations Hematology/oncology, Pulmonology Hospital Course Pt was admitted and continued on IV fluids, O2, pain medications. Pt was seen by heme/onc who switched pt to Xarelto for treatment of DVT. Pt was also seen by pulmonology who stated no evidence of pneumonia, so pt was not continued on antibiotics. Once pt's pain was controlled on PO pain medications, he was discharged home. Pt displayed signs of narcotic abuse. Recommend if pt presents to ED in future to not give IV narcotics if not indicated. Discharge Medications New Medications: Rivaroxaban (Xarelto) 15 Mg Tablet 15 MG ORAL Q12HR for 60 Days, TAB Continued Medications: Diphenhydramine HCl (Benadryl) 25 Mg Capsule 50 MG PO Q4HR PRN for Itching, CAP Folic Acid* (Folic Acid*) 1 Mg Tablet 1 MG ORAL DAILY, TAB Gabapentin* (Gabapentin*) 400 Mg Capsule 500 MG ORAL THREE TIMES A DAY, CAP 0 Refills Hydromorphone HCl (Dilaudid) 4 Mg Tablet 12 MG ORAL EVERY 4 HOURS, #60 TAB 0 Refills Hydroxyurea* (Hydrea*) 500 Mg Capsule 500 MG PO BID, CAP Methadone Hcl* (Methadone*) 10 Mg Tablet 50 MG PO Q6HR, #90 TAB 0 Refills Discharge Condition Upon Discharge: stable Discharge Disposition Patient was discharged to home Discharge Diagnoses: (1) severe diastolic heart disease (2) Acute deep vein thrombosis (DVT) of both lower extremities (3) Interstitial lung disease (4) Pulmonary HTN (5) Leukocytosis (6) Avascular necrosis of femur head, right (7) Avascular necrosis of femur head, left Jerri Samaniego M.D. Nov 02, 2016 17:51
--- NOTE | 2016-11-02 21:45 | Pulmonology Progress Note ---
Assessment/Plan Problems: (1) Pneumonia (2) severe diastolic heart disease (3) Pulmonary HTN (4) Interstitial lung disease (5) Sickle cell crisis (6) DVT (deep venous thrombosis) Assessment/Plan respiratory treatment f/u pulse oximeter titrate fio2 pain control ok to dc home with outpatient f/u pt was seen earlier today prior to discharge. Subjective ROS Limited/Unobtainable: No Interval Events: no new complains, feeling better Allergies: Coded Allergies: AMPICILLIN (Verified Allergy, Unknown, 08/03/16) KETOROLAC (Verified Allergy, Unknown, 08/03/16) MORPHINE (Verified Allergy, Unknown, 08/03/16) PHENYTOIN (Verified Allergy, Unknown, 08/03/16) Objective Last 24 Hour Vital Signs Date Time Temp Pulse Resp B/P Pulse Ox O2 Delivery O2 Flow Rate FiO2 11/02/16 12:00 97.3 80 19 118/87 97 Room Air 11/02/16 09:49 98.1 11/02/16 08:57 98.1 11/02/16 08:00 98.1 75 17 120/80 91 Room Air 11/02/16 04:00 98.6 87 127/50 Room Air 11/02/16 04:00 95 Nasal Cannula 5.0 11/02/16 03:24 97.9 11/02/16 00:00 100 Nasal Cannula 5.0 11/02/16 00:00 97.9 86 19 118/75 Nasal Cannula 5.0 Intake and Output 11/01/16 11/02/16 19:00 07:00 Intake Total 360 ml 3000 ml Output Total 1000 ml 1500 ml Balance -640 ml 1500 ml Intake Oral 360 ml 3000 ml Output Urine Total 1000 ml 1500 ml # Voids 3 Objective General Appearance: WD/WN, no apparent distress Lines, tubes and drains: peripheral HEENT: normocephalic, atraumatic Neck: non-tender, supple Respiratory/Chest: chest wall non-tender, rhonchi - bilaterally Cardiovascular/Chest: normal peripheral pulses, normal rate Abdomen: normal bowel sounds Genitourinary/Rectal: normal genital exam Extremities: normal range of motion KENNEDY MOORE Nov 02, 2016 21:45
--- NOTE | 2016-11-03 23:27 | Diagnostic Imaging Report ---
APPROVED REPORT CPT Code: 96345 Present Symptoms Lower Extremity Pain: Bilateral Shortness of breath Comments: Sickle cell Past History Pulmonary Embolism Study performed with patient seated upright on edge of bed. Limited study due to patient's difficulty cooperating. Limited study of left leg. RIGHT LEG: Venous imaging reveals acute thrombus in the popliteal vein and tibial veins (posterior tibial veins). Remainder of the deep venous system within normal limits. Greater saphenous vein also within normal limits. LEFT LEG: Venous imaging reveals acute thrombus in the tibial veins (posterior tibial veins). Imaging reveals patency of the common femoral and popliteal veins. Greater saphenous vein also within normal limits. Dr. Coburn was notified of abnormal results at 19:30 hrs.
== END 2016-11-02 12:24 | disposition home or self-care (01) | DRG 812 ==
LOC: EMR 15:30 → EDBEDREQ 15:31 → 4W 15:45 → EDBEDREQ 16:01 → 4W 22:07
DX: D57.00 Hb-SS disease with crisis, unspecified (principal); J84.9 Interstitial pulmonary disease, unspecified; I27.2 Other secondary pulmonary hypertension; M87.88 Other osteonecrosis, other site; I82.433 Acute embolism and thrombosis of popliteal vein, bilateral; I82.443 Acute embolism and thrombosis of tibial vein, bilateral; E87.70 Fluid overload, unspecified; Z86.718 Personal history of other venous thrombosis and embolism; Z86.73 Personal history of transient ischemic attack (TIA), and cerebral infarction without residual deficits; Z88.6 Allergy status to analgesic agent; Z88.1 Allergy status to other antibiotic agents; Z88.8 Allergy status to other drugs, medicaments and biological substances; G89.29 Other chronic pain; I51.89 Other ill-defined heart diseases; S91.302D Unspecified open wound, left foot, subsequent encounter; W34.00XD Accidental discharge from unspecified firearms or gun, subsequent encounter; Z91.14 Patient's other noncompliance with medication regimen
CPT/HCPCS: 36415; 71010; 80048; 80053; 80300; 81003; 82248; 82550; 83605; 83615; 83735; 83880; 84100; 84484; 85007; 85025; 85044; 85610; 85651; 85730; 86140; 87040; 87070; 87205; 93005; 93306; 93970; 94664; 94760; J2405

== ENCOUNTER 2016-11-14 14:00 | Emergency (ER) | payer MEDICARE, OTHER ==
[~2016-11-14] VITALS: Ht 180.3 cm; Wt 73.9 kg
[~2016-11-14 14:00] MED LIST changes: +XARELTO15 MG ORAL
[2016-11-14 14:30] VITALS: BP 110/68
[2016-11-14] MEDS ORDERED: HYDROmorphone 1 MG, DiphenhydrAMINE 25 MG in NS 55 ML IVPB ONE (14:45)
--- NOTE | 2016-11-14 14:56 | Emergency Room Report ---
History of Present Illness General Chief Complaint: Pain Source: Patient Present Illness HPI 40 YO Male presents to the ED c/o 04/25 in severity pain to bilateral thighs, hips, back ,and chest. denies N/V/F/C. pt. also reports seizure this am. 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 pt. takes phenobarbital, and Dilaudid. pt. states he is currently on blood thinning medications. denies trauma or fall. pt. states he also has hx of avascular necrosis of the hips. denies abdominal pain, rashes, SOB, Palpitations, LOC, AMS, dizziness, Changes in Vision, Sensation, paresthesias, or a sudden severe headache. Allergies: Coded Allergies: AMPICILLIN (Verified Allergy, Unknown, 08/03/16) KETOROLAC (Verified Allergy, Unknown, 08/03/16) MORPHINE (Verified Allergy, Unknown, 08/03/16) PHENYTOIN (Verified Allergy, Unknown, 08/03/16) Patient History Past Medical History: see triage record Past Surgical History: none Pertinent Family History: none Immunizations: UTD Reviewed Nursing Documentation: PMH: Agreed, PSxH: Agreed Nursing Documentation-PMH Past Medical History: No History, Except For Hx Cardiac Problems: No - Sickle cell Hx Asthma: Yes Hx COPD: Yes Hx Cancer: No Hx Gastrointestinal Problems: No Hx Neurological Problems: Yes Hx Seizures: Yes - related to sickle cell disease Review of Systems All Other Systems: negative except mentioned in HPI Physical Exam Vital Signs Date Time Temp Pulse Resp B/P Pulse Ox O2 Delivery O2 Flow Rate FiO2 11/14/16 14:12 98.4 82 16 110/68 98 Nasal Cannula 6.0 Sp02 EP Interpretation: reviewed, normal, other - Pt is on nasal cannula General Appearance: no apparent distress, alert, GCS 15, non-toxic, Chronically Ill Head: normocephalic, atraumatic Eyes: bilateral eye PERRL, bilateral eye normal inspection ENT: hearing grossly normal, normal pharynx, no angioedema, normal voice Neck: full range of motion, supple/symm/no masses Respiratory: chest non-tender, lungs clear, normal breath sounds, speaking full sentences Cardiovascular #1: regular rate, rhythm, no edema Gastrointestinal: normal bowel sounds, non tender, soft, no guarding, no rebound Rectal: deferred Genitourinary: normal inspection, no CVA tenderness Musculoskeletal: back normal, gait/station normal, normal range of motion, non- tender, tender - bilateral thigh ttp, and low back ttp, no midline ttp. Neurologic: alert, oriented x3, responsive, motor strength/tone normal, sensory intact, speech normal Psychiatric: judgement/insight normal, memory normal, mood/affect normal Skin: normal color, no rash, warm/dry, well hydrated Lymphatic: no adenopathy Medical Decision Making PA Attestation Dr. Davies is my supervising Physician whom patient management has been discussed with. Diagnostic Impression: Primary Impression: Sickle cell crisis ER Course 40 YO Male presents to the ED c/o 04/25 in severity pain to bilateral thighs, hips, back ,and chest. denies N/V/F/C. pt. also reports seizure this am. 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 pt. takes phenobarbital, and Dilaudid. pt. states he is currently on blood thinning medications. denies trauma or fall. pt. states he also has hx of avascular necrosis of the hips Ddx considered but are not limited to Sickle cell crisis, Infection, Cardiac pathology, DVT, Acute chest syndrome, Fracture, Dislocation Vital signs: are WNL, pt. is afebrile H&PE are most consistent with Sickle cell crisis ORDERS: -CBC: elevated WBC's consistent with pt.'s baseline reviewed from previous visits- also consistent with pt. hx of recent seizure, anemia noted -CMP:see results attached. -Total CK: WNL -Troponins, Ck-MB: WNL -Reticulocyte count 3.4 -UA: unremarkable -CXR: No new changes from previous imaging, no atelectasis, or obvious infiltrates- per preliminary read by Dr. Davies ED INTERVENTIONS: - 1 liter NS for hydration. - 1mg + 25mg benadryl / Dilaudid for pain DISCHARGE: At this time pt. is stable for d/c to home. Will provide printed patient care instructions, and any necessary prescriptions. Care plan and follow up instructions have been discussed with the patient prior to discharge. Labs Test 11/14/16 15:05 11/14/16 16:40 White Blood Count 15.8 K/UL (4.8-10.8) Red Blood Count 2.90 M/UL (4.70-6.10) Hemoglobin 9.0 G/DL (14.2-18.0) Hematocrit 26.4 % (42.0-52.0) Mean Corpuscular Volume 91 FL (80-99) Mean Corpuscular Hemoglobin 30.9 PG (27.0-31.0) Mean Corpuscular Hemoglobin Concent 34.0 G/DL (32.0-36.0) Red Cell Distribution Width 20.3 % (11.6-14.8) Platelet Count 493 K/UL (150-450) Mean Platelet Volume 6.5 FL (6.5-10.1) Neutrophils (%) (Auto) 38.2 % (45.0-75.0) Lymphocytes (%) (Auto) 47.2 % (20.0-45.0) Monocytes (%) (Auto) 4.2 % (1.0-10.0) Eosinophils (%) (Auto) 8.6 % (0.0-3.0) Basophils (%) (Auto) 1.7 % (0.0-2.0) Reticulocyte Count 3.0 % (0.0-2.0) Sodium Level 141 mEQ/L (135-145) Potassium Level 5.0 mEQ/L (3.4-4.9) Chloride Level 99 mEQ/L (98-107) Carbon Dioxide Level 31 mEQ/L (20-30) Anion Gap 11 (5-15) Blood Urea Nitrogen 28 mg/dL (7-23) Creatinine 1.0 mg/dL (0.7-1.2) Estimat Glomerular Filtration Rate > 60 mL/min (>60) Glucose Level 101 mg/dL (74-106) Calcium Level 9.6 mg/dL (8.6-10.2) Total Bilirubin 1.1 mg/dL (0.0-1.2) Direct Bilirubin 0.2 mg/dL (0.1-0.3) Aspartate Amino Transf (AST/SGOT) 37 U/L (5-40) Alanine Aminotransferase (ALT/SGPT) 22 U/L (3-41) Alkaline Phosphatase 121 U/L (40-129) Total Creatine Kinase 18 U/L (38-174) Creatine Kinase MB 2.2 ng/mL (< 6.7) Creatine Kinase MB Relative Index 12.2 Troponin I < 0.30 ng/mL (<=0.30) Total Protein 6.6 g/dL (6.6-8.7) Albumin 4.2 g/dL (3.5-5.2) Globulin 2.4 g/dL Albumin/Globulin Ratio 1.7 (1.0-2.7) Urine Color Pale yellow Urine Appearance Clear Urine pH 5 (4.5-8.0) Urine Specific [place] 1.010 (1.005-1.035) Urine Protein 3+ (NEGATIVE) Urine Glucose (UA) Negative (NEGATIVE) Urine Ketones Negative (NEGATIVE) Urine Occult Blood 1+ (NEGATIVE) Urine Nitrite Negative (NEGATIVE) Urine Bilirubin Negative (NEGATIVE) Urine Urobilinogen Normal MG/DL (0.0-1.0) Urine Leukocyte Esterase 1+ (NEGATIVE) Urine RBC 2-4 /HPF (0 - 0) Urine WBC 0-2 /HPF (0 - 0) Urine Squamous Epithelial Cells None /LPF (NONE/OCC) Urine Bacteria Few /HPF (NONE) EKG Diagnostic Results EP Interpretation: Dr. Davies Rate: normal - 77 BPM Rhythm: NSR ST Segments: no acute changes ASA given to the pt in ED: No Last Vital Signs Date Time Temp Pulse Resp B/P Pulse Ox O2 Delivery O2 Flow Rate FiO2 11/14/16 14:30 98.4 16 110/68 98 Nasal Cannula 6.0 11/14/16 14:12 82 Disposition: HOME, SELF-CARE Condition: Stable Patient Instructions: Sickle Cell Anemia, Adult, [id number], Chronic Pain Additional Instructions: Take previously prescribed medications as directed. Follow up with PCP in 3-5 days Return sooner to ED if new symptoms occur, or current symptoms become worse. - Please note that this Emergency Department Report was dictated using GOBA[employer] accountant technology software, occasionally this can lead to erroneous entry secondary to interpretation by the dictation equipment. Matilda Stewart November 14, 2016 14:56
[2016-11-14] MEDS ORDERED: HYDROmorphone 1mg/ml Carpuject ONE (15:04)
[2016-11-14] MEDS ORDERED: DiphenhydrAMINE 50mg/ml Inj ONE (15:04)
[2016-11-14 15:21] LABS: BASOPHILS % (AUTO) 1.7 % (0.0-2.0); EOSINOPHILS % (AUTO) 8.6 % (0.0-3.0); LYMPHOCYTES % (AUTO) 47.2 % (20.0-45.0); MEAN CORPUSCULAR HEMOGLOBIN 30.9 PG (27.0-31.0); MEAN CORPUSCULAR VOLUME 91 FL (80-99); MEAN PLATELET VOLUME 6.5 FL (6.5-10.1); MONOCYTES % (AUTO) 4.2 % (1.0-10.0); NEUTROPHILS % (AUTO) 38.2 % (45.0-75.0); PLATELET COUNT 493 K/UL (150-450); RED CELL DISTRIBUTION WIDTH 20.3 % (11.6-14.8); WHITE BLOOD COUNT 15.8 K/UL (4.8-10.8)
[2016-11-14 15:45] LABS: ALANINE AMINOTRANSFERASE 22 U/L (3-41); ALBUMIN/GLOBULIN RATIO 1.7 (1.0-2.7); ANION GAP 11 (5-15); ASPARTATE AMINO TRANSFERASE 37 U/L (5-40); CALCIUM 9.6 mg/dL (8.6-10.2); CARBON DIOXIDE 31 mEQ/L (20-30); CHLORIDE 99 mEQ/L (98-107); GLOMERULAR FILTRATION RATE > 60 mL/min (>60); HEMOLYSIS 5; SODIUM 141 mEQ/L (135-145); TOTAL PROTEIN 6.6 g/dL (6.6-8.7)
[2016-11-14 15:48] LABS: TROPONIN I < 0.30 ng/mL (<=0.30)
[2016-11-14 15:56] LABS: CKMB 2.2 ng/mL (< 6.7)
[2016-11-14 16:07] LABS: BILIRUBIN,DIRECT 0.2 mg/dL (0.1-0.3)
[2016-11-14] MEDS ORDERED: NS 55ml IV ONE (16:31)
[2016-11-14 16:37] VITALS: BP 122/85
[2016-11-14 16:55] LABS: APPEARANCE,URINE CLEAR; KETONES,URINE NEGATIVE (NEGATIVE); LEUKOCYTE ESTERASE ,URINE 1+ (NEGATIVE); NITRITE,URINE NEGATIVE (NEGATIVE); PH,URINE 5 (4.5-8.0); PROTEIN,URINE 3+ (NEGATIVE); UROBILINOGEN,URINE NORMAL MG/DL (0.0-1.0)
[2016-11-14 17:21] LABS: BACTERIA,URINE FEW /HPF; WBC,URINE 0-2 /HPF (0 - 0)
[2016-11-14 18:51] VITALS: BP 121/73
--- NOTE | 2016-11-15 12:47 | Diagnostic Imaging Report ---
Indication: Chest Pain Comparison: 10/27/69 A single view chest radiograph was obtained. Findings: There is enlargement of the cardiac silhouette with pulmonary vascular prominence, hazy vessel margins and the suggestion of interstitial edema. There is a right chest port again noted. The findings do not appear significant change from the last study. Impression: Suspected interstitial edema
--- NOTE | 2016-11-22 15:55 | Cardiology Report ---
APPROVED REPORT EKG Measurement Heart [id number] Normal sinus rhythm Incomplete right bundle branch block Cannot rule out Anterior infarct, age undetermined Abnormal ECG
== END 2016-11-14 19:19 | disposition home or self-care (01) ==
LOC: EMR 16:30
DX: D57.00 Hb-SS disease with crisis, unspecified (principal); J44.9 Chronic obstructive pulmonary disease, unspecified
CPT/HCPCS: 36415; 71010; 80053; 81003; 82248; 82550; 82553; 84484; 85025; 85044; 93005; 96360; 96361; 96374; 99284; J1170; J1200; J7040

== ENCOUNTER 2016-11-18 13:52 | Inpatient (IN) | payer MEDICARE, OTHER ==
[~2016-11-18] VITALS: Ht 180.3 cm; Wt 73.9 kg
[2016-11-18] MEDS ORDERED: DiphenhydrAMINE 50mg/ml Inj IVP ONE ×2 (14:15→17:15)
[2016-11-18] MEDS ORDERED: HYDROmorphone 1mg/ml Carpuject IVP ONE (14:15)
--- NOTE | 2016-11-18 14:51 | Diagnostic Imaging Report ---
Indication: Chest pain Comparison: 11/14/16 A single view chest radiograph was obtained. Findings: Interstitial edema is suspected although the appearance appears improved since the last study. Heart is mildly enlarged but also improved slightly. Right chest port again noted. Impression: Suspected interstitial edema. Pneumonia not excluded. Findings appear improved since the last study
--- NOTE | 2016-11-18 15:02 | Emergency Room Report ---
History of Present Illness General Chief Complaint: Pain Source: Patient Present Illness HPI The patient presents with several days of productive cough of green phlegm, possible fevers and joint pain. His history of sickle cell is been taking Dilaudid. It's not been controlling the pain. His pain is in his joints ( ankles, shoulders, back, wrists) at this time and also in his chest. Pain is 9/ 10, aching, not radiating. The patient was recently admitted to hospital for similar complaints. Treated with antibiotics at that time. The cough has persisted and is somewhat worsened. He is on home oxygen. He has not heard himself wheezing. No dysuria. Moving bowels with some diarrhea. No vomiting. Prior admitting MD concerned about possible drug seeking behavior. He denies depression/HI/SI. H/O seizures supposedly on dilantin and phenobarbital (though phenobarb was negative in August = + barbs on tox.. H/O avascular necrosis of hips. Allergies: Coded Allergies: AMPICILLIN (Verified Allergy, Unknown, 08/03/16) KETOROLAC (Verified Allergy, Unknown, 08/03/16) MORPHINE (Verified Allergy, Unknown, 08/03/16) PHENYTOIN (Verified Allergy, Unknown, 08/03/16) Patient History Past Medical History: see triage record Social History: Reports: smoking Social History Narrative son just turned [age] Reviewed Nursing Documentation: PMH: Agreed, PSxH: Agreed Nursing Documentation-PMH Past Medical History: No History, Except For Hx Hypertension: Yes Hx Asthma: Yes Hx COPD: Yes Hx Cancer: No Hx Gastrointestinal Problems: No Hx Neurological Problems: Yes Hx Seizures: Yes Review of Systems All Other Systems: negative except mentioned in HPI Physical Exam Vital Signs Date Time Temp Pulse Resp B/P Pulse Ox O2 Delivery O2 Flow Rate FiO2 11/18/16 13:58 97.7 130 22 107/76 81 Nasal Cannula 6.0 Sp02 EP Interpretation: reviewed, abnormal - as interpreted by me on high O2 General Appearance: alert, GCS 15, Chronically Ill Head: normocephalic Eyes: bilateral eye PERRL, bilateral eye scleral icterus ENT: moist mucus membranes Neck: supple Respiratory: crackles, other - portacath Cardiovascular #1: regular rate, rhythm Cardiovascular #2: 2+ radial (R) Gastrointestinal: normal inspection, normal bowel sounds, non tender, no mass, non-distended Musculoskeletal: back normal, gait/station normal, normal range of motion, tender - ankles and other joints Neurologic: alert, oriented x3, motor strength/tone normal, DTRs symmetric, sensory intact Psychiatric: mood/affect normal Skin: normal inspection, warm/dry, other - venous disease Medical Decision Making Diagnostic Impression: Primary Impression: Sickle cell crisis Additional Impressions: Purulent bronchitis Leukocytosis Qualified Codes: D72.829 - Elevated white blood cell count, unspecified ER Course The patient presents with productive cough and exacerbation of sickle cell pain. Differential includes pneumonia, bronchitis, congestive heart failure, acute myocardial infarction, sickle chest syndrome, exacerbation of sickle cell pain, failure of amongst others. The patient needs evaluation with EKG chest x- ray and labs. The patient was treated with gentle IV hydration and also analgesia. Blood cultures will be obtained and lactate. Labs significant for inc WBC, low H/H (not as severe as prior admit), elevated LDH, normal retic count. CXR with increased pineda, but less than prior admission. Discussed admission with Dr. Guthrie. She is concerned about possible drug seeking behavior. Difficult to determine this from ED. Will observe patient. Laboratory Tests Test 11/18/16 15:00 11/18/16 17:27 White Blood Count 13.2 K/UL (4.8-10.8) H Red Blood Count 3.25 M/UL (4.70-6.10) L Hemoglobin 9.9 G/DL (14.2-18.0) L Hematocrit 30.0 % (42.0-52.0) L Mean Corpuscular Volume 92 FL (80-99) Mean Corpuscular Hemoglobin 30.5 PG (27.0-31.0) Mean Corpuscular Hemoglobin Concent 33.1 G/DL (32.0-36.0) Red Cell Distribution Width 19.3 % (11.6-14.8) H Platelet Count 488 K/UL (150-450) H Mean Platelet Volume 6.2 FL (6.5-10.1) L Neutrophils (%) (Auto) 48.0 % (45.0-75.0) Lymphocytes (%) (Auto) 41.3 % (20.0-45.0) Monocytes (%) (Auto) 6.3 % (1.0-10.0) Eosinophils (%) (Auto) 2.9 % (0.0-3.0) Basophils (%) (Auto) 1.5 % (0.0-2.0) Reticulocyte Count 0.9 % (0.0-2.0) Prothrombin Time 12.3 SEC (9.30-11.50) H Prothrombin Time INR 1.2 (0.9-1.1) H PTT 36 SEC (23-33) H Sodium Level 137 mEQ/L (135-145) Potassium Level 4.6 mEQ/L (3.4-4.9) Chloride Level 96 mEQ/L (98-107) L Carbon Dioxide Level 25 mEQ/L (20-30) Anion Gap 16 (5-15) H Blood Urea Nitrogen 27 mg/dL (7-23) H Creatinine 0.8 mg/dL (0.7-1.2) Estimate Glomerular Filtration Rate > 60 mL/min (>60) Glucose Level 121 mg/dL (74-106) H Lactic Acid Level 0.90 mmol/L (0.66-2.22) Calcium Level 9.6 mg/dL (8.6-10.2) Total Bilirubin 1.3 mg/dL (0.0-1.2) H Direct Bilirubin 0.2 mg/dL (0.1-0.3) Aspartate Amino Transferase (AST) 44 U/L (5-40) H Alanine Aminotransferase (ALT) 30 U/L (3-41) Alkaline Phosphatase 120 U/L (40-129) Lactate Dehydrogenase 592 U/L (135-230) H Total Creatine Kinase 14 U/L (38-174) L Troponin I < 0.30 ng/mL (<=0.30) Pro-B-Type Natriuretic Peptide 19 pg/mL (0-125) Total Protein 6.4 g/dL (6.6-8.7) L Albumin 4.2 g/dL (3.5-5.2) Globulin 2.2 g/dL Albumin/Globulin Ratio 1.9 (1.0-2.7) Urine Color Pale yellow Urine Appearance Clear Urine pH 6 (4.5-8.0) Urine Specific [place] 1.010 (1.005-1.035) Urine Protein 3+ (NEGATIVE) H Urine Glucose (UA) Negative (NEGATIVE) Urine Ketones Negative (NEGATIVE) Urine Occult Blood 2+ (NEGATIVE) H Urine Nitrite Negative (NEGATIVE) Urine Bilirubin Negative (NEGATIVE) Urine Urobilinogen Normal MG/DL (0.0-1.0) Urine Leukocyte Esterase Negative (NEGATIVE) Urine RBC 0-2 /HPF (0 - 0) H Urine WBC 0-2 /HPF (0 - 0) Urine Squamous Epithelial Cells None /LPF (NONE/OCC) Urine Bacteria Occasional /HPF (NONE) Urine Opiates Screen Negative (NEGATIVE) Urine Barbiturates Screen Positive (NEGATIVE) H Phencyclidine (PCP) Screen Negative (NEGATIVE) Urine Amphetamines Screen Negative (NEGATIVE) Urine Benzodiazepines Screen Negative (NEGATIVE) Urine Cocaine Screen Negative (NEGATIVE) Urine Marijuana (THC) Screen Negative (NEGATIVE) EKG Diagnostic Results Rate: normal Rhythm: NSR ST Segments: no acute changes - nonspecific ST-T wave changes Rhythm Strip Diag. Results EP Interpretation: yes Rhythm: NSR, no PVC's, no ectopy Chest X-Ray Diagnostic Results EP Interpretation: Yes Findings: no effusion, no pneumothorax, other - portacath, improved L infiltrate Number of Views: 1 Last Vital Signs Date Time Temp Pulse Resp B/P Pulse Ox O2 Delivery O2 Flow Rate FiO2 11/19/16 00:44 Nasal Cannula 11/19/16 00:00 99.0 107 22 129/79 97 2.0 11/18/16 19:40 28 Status: improved Disposition: ADMITTED INPATIENT Condition: Serious Referrals: NON PHYSICIAN (PCP) Artie Coburn M.D. November 18, 2016 15:02
[2016-11-18] MEDS ORDERED: Albuterol ud Inhalation HHN ONE (15:15)
[2016-11-18] MEDS ORDERED: Ipratropium 0.02% Inh Soln 2.5ml UD HHN ONE (15:15)
[2016-11-18] MEDS ORDERED: NS 55 ML IV ONE (15:19)
[2016-11-18 15:24] LABS: BASOPHILS % (AUTO) 1.5 % (0.0-2.0); EOSINOPHILS % (AUTO) 2.9 % (0.0-3.0); LYMPHOCYTES % (AUTO) 41.3 % (20.0-45.0); MEAN CORPUSCULAR HEMOGLOBIN 30.5 PG (27.0-31.0); MEAN CORPUSCULAR HGB CONC 33.1 G/DL (32.0-36.0); MEAN CORPUSCULAR VOLUME 92 FL (80-99); MEAN PLATELET VOLUME 6.2 FL (6.5-10.1); MONOCYTES % (AUTO) 6.3 % (1.0-10.0); PLATELET COUNT 488 K/UL (150-450); RED BLOOD COUNT 3.25 M/UL (4.70-6.10); RED CELL DISTRIBUTION WIDTH 19.3 % (11.6-14.8); WHITE BLOOD COUNT 13.2 K/UL (4.8-10.8)
[2016-11-18 15:35] LABS: INR 1.2 (0.9-1.1); PROTHROMBIN TIME 12.3 SEC (9.30-11.50)
[2016-11-18 15:38] LABS: TROPONIN I < 0.30 ng/mL (<=0.30)
[2016-11-18 15:40] LABS: CHLORIDE 96 mEQ/L (98-107); POTASSIUM 4.6 mEQ/L (3.4-4.9); SODIUM 137 mEQ/L (135-145)
[2016-11-18 15:56] LABS: ALANINE AMINOTRANSFERASE 30 U/L (3-41); ALBUMIN/GLOBULIN RATIO 1.9 (1.0-2.7); ANION GAP 16 (5-15); ASPARTATE AMINO TRANSFERASE 44 U/L (5-40); CALCIUM 9.6 mg/dL (8.6-10.2); CARBON DIOXIDE 25 mEQ/L (20-30); CREATININE 0.8 mg/dL (0.7-1.2); GLOMERULAR FILTRATION RATE > 60 mL/min (>60); HEMOLYSIS 24; TOTAL PROTEIN 6.4 g/dL (6.6-8.7)
[2016-11-18 16:00] VITALS: BP 123/80
[2016-11-18] MEDS ORDERED: cefTRIAXone 1 GM in NS 55 ML IVPB ONE (16:45)
[2016-11-18 17:08] LABS: RETICULOCYTE COUNT 0.9 % (0.0-2.0)
[2016-11-18] MEDS ORDERED: Hydromorphone 0.5mg/0.5ml inj IVP STA (17:09)
[2016-11-18 17:45] LABS: BILIRUBIN,DIRECT 0.2 mg/dL (0.1-0.3); LACTATE DEHYDROGENASE 592 U/L (135-230)
[2016-11-18 17:52] LABS: APPEARANCE,URINE CLEAR; KETONES,URINE NEGATIVE (NEGATIVE); LEUKOCYTE ESTERASE ,URINE NEGATIVE (NEGATIVE); NITRITE,URINE NEGATIVE (NEGATIVE); PH,URINE 6 (4.5-8.0); PROTEIN,URINE 3+ (NEGATIVE); UROBILINOGEN,URINE NORMAL MG/DL (0.0-1.0)
[2016-11-18] MEDS ORDERED: HYDROmorphone 1mg/ml Carpuject IVP PRN (18:00)
[2016-11-18 18:05] LABS: BACTERIA,URINE OCCASIONAL /HPF; RBC,URINE 0-2 /HPF (0 - 0); WBC,URINE 0-2 /HPF (0 - 0)
[2016-11-18] MEDS ORDERED: Milk of Magnesia 30ml Ud ORAL PRN (18:15)
[2016-11-18] MEDS ORDERED: DuoNeb 0.5-3(2.5)mg/3ml neb HHN PRN (18:15)
[2016-11-18] MEDS ORDERED: Miralax 17gm pkt ORAL PRN (18:15)
--- NOTE | 2016-11-18 18:19 | History and Physical ---
History of Present Illness General Date patient seen: November 18, 2016 Time patient seen: 18:19 Reason for Hospitalization: Pain Present Illness HPI 40 y/o male with pmh of sickle cell anemia, b/l hip avascular necrosis, recent acute DVT (on xarelto), chronic pain, opioid dependence who presents with worsening chest pain, back pain, and leg pain. Pt states symptoms are characteristic of his typical sickle cell flare up. He has been having worsening pain for the past few days. He also notes a cough with some productive sputum, green in color. Low grade temp at home. Denies chills, SOB, abd pain, d/c. Denies recent travel, sick contacts, trauma. In ED, pt given IVFs, cefriaxone, dilaudid + benadryl IV. Allergies: Coded Allergies: AMPICILLIN (Verified Allergy, Unknown, 08/03/16) KETOROLAC (Verified Allergy, Unknown, 08/03/16) MORPHINE (Verified Allergy, Unknown, 08/03/16) PHENYTOIN (Verified Allergy, Unknown, 08/03/16) Medication History Scheduled Folic Acid* (Folic Acid*), 1 MG ORAL DAILY, (Reported) Gabapentin* (Gabapentin*), 500 MG ORAL THREE TIMES A DAY, (Reported) Hydromorphone HCl (Dilaudid), 12 MG ORAL EVERY 4 HOURS, (Reported) Hydroxyurea* (Hydrea*), 500 MG PO BID, (Reported) Methadone Hcl* (Methadone*), 50 MG PO Q6HR, (Reported) Rivaroxaban (Xarelto), 15 MG ORAL Q12HR Scheduled PRN Diphenhydramine HCl (Benadryl), 50 MG PO Q4HR PRN for Itching, (Reported) Patient History Healthcare decision maker NONE Resuscitation status Advanced Directive on File Past Medical/Surgical History Past Medical/Surgical History: (1) Interstitial lung disease (2) Pulmonary HTN (3) Avascular necrosis of femur head, right (4) Avascular necrosis of femur head, left (5) Sickle cell disease (6) Acute deep vein thrombosis (DVT) of both lower extremities Family History Family History: Patient reports no known family medical history. Social History Social History: (1) No significant social history Review of Systems Constitutional: Reports: no symptoms Eye: Reports: no symptoms Respiratory: Reports: cough Cardiovascular: Reports: chest pain Gastrointestinal: Reports: no symptoms Genitourinary: Reports: no symptoms Musculoskeletal: Reports: back pain, muscle pain Skin: Reports: no symptoms Psychiatric: Reports: no symptoms Neurological: Reports: no symptoms Endocrine: Reports: no symptoms Hematologic/Lymphatic: Reports: anemia Physical Exam Physical Exam Narrative General: alert, cooperative, no distress, appears stated age Head: normocephalic, without obvious abnormality, atraumatic Eyes: conjunctivae/corneas clear. PERRL, EOM's intact Throat: lips, mucosa, and tongue normal. MMM Neck: supple, symmetrical, trachea midline, and no JVD Lungs: clear to auscultation bilaterally Heart: regular rate and rhythm, S1, S2 normal, no murmur, click, rub or gallop Abdomen: soft, non-tender, non-distended, bowel sounds normal; no masses or organomegaly Extremities: extremities normal, atraumatic, no cyanosis or edema Pulses: 2+ and symmetric Skin: skin color, texture, turgor normal; no rashes or lesions Neurologic: grossly normal, no focal deficits Last 24 Hour Vital Signs Date Time Temp Pulse Resp B/P Pulse Ox O2 Delivery O2 Flow Rate FiO2 11/18/16 17:33 111 20 129/86 99 Nasal Cannula 6.0 11/18/16 16:00 97.5 115 20 123/80 100 Nasal Cannula 6.0 11/18/16 15:35 97 18 100 Nasal Cannula 2.0 28 11/18/16 15:25 95 13 Nasal Cannula 2.0 28 11/18/16 15:25 95 13 100 Nasal Cannula 2.0 28 11/18/16 14:00 114 20 Nasal Cannula 6.0 11/18/16 13:58 97.7 130 22 107/76 81 Nasal Cannula 6.0 Laboratory Tests Test 11/18/16 15:00 11/18/16 17:27 White Blood Count 13.2 K/UL (4.8-10.8) H Red Blood Count 3.25 M/UL (4.70-6.10) L Hemoglobin 9.9 G/DL (14.2-18.0) L Hematocrit 30.0 % (42.0-52.0) L Mean Corpuscular Volume 92 FL (80-99) Mean Corpuscular Hemoglobin 30.5 PG (27.0-31.0) Mean Corpuscular Hemoglobin Concent 33.1 G/DL (32.0-36.0) Red Cell Distribution Width 19.3 % (11.6-14.8) H Platelet Count 488 K/UL (150-450) H Mean Platelet Volume 6.2 FL (6.5-10.1) L Neutrophils (%) (Auto) 48.0 % (45.0-75.0) Lymphocytes (%) (Auto) 41.3 % (20.0-45.0) Monocytes (%) (Auto) 6.3 % (1.0-10.0) Eosinophils (%) (Auto) 2.9 % (0.0-3.0) Basophils (%) (Auto) 1.5 % (0.0-2.0) Reticulocyte Count 0.9 % (0.0-2.0) Prothrombin Time 12.3 SEC (9.30-11.50) H Prothromb Time International Ratio 1.2 (0.9-1.1) H Activated Partial Thromboplast Time 36 SEC (23-33) H Sodium Level 137 mEQ/L (135-145) Potassium Level 4.6 mEQ/L (3.4-4.9) Chloride Level 96 mEQ/L (98-107) L Carbon Dioxide Level 25 mEQ/L (20-30) Anion Gap 16 (5-15) H Blood Urea Nitrogen 27 mg/dL (7-23) H Creatinine 0.8 mg/dL (0.7-1.2) Estimat Glomerular Filtration Rate > 60 mL/min (>60) Glucose Level 121 mg/dL (74-106) H Lactic Acid Level 0.90 mmol/L (0.66-2.22) Calcium Level 9.6 mg/dL (8.6-10.2) Total Bilirubin 1.3 mg/dL (0.0-1.2) H Direct Bilirubin 0.2 mg/dL (0.1-0.3) Aspartate Amino Transf (AST/SGOT) 44 U/L (5-40) H Alanine Aminotransferase (ALT/SGPT) 30 U/L (3-41) Alkaline Phosphatase 120 U/L (40-129) Lactate Dehydrogenase 592 U/L (135-230) H Total Creatine Kinase 14 U/L (38-174) L Troponin I < 0.30 ng/mL (<=0.30) Pro-B-Type Natriuretic Peptide 19 pg/mL (0-125) Total Protein 6.4 g/dL (6.6-8.7) L Albumin 4.2 g/dL (3.5-5.2) Globulin 2.2 g/dL Albumin/Globulin Ratio 1.9 (1.0-2.7) Urine Color Pale yellow Urine Appearance Clear Urine pH 6 (4.5-8.0) Urine Specific [place] 1.010 (1.005-1.035) Urine Protein 3+ (NEGATIVE) H Urine Glucose (UA) Negative (NEGATIVE) Urine Ketones Negative (NEGATIVE) Urine Occult Blood 2+ (NEGATIVE) H Urine Nitrite Negative (NEGATIVE) Urine Bilirubin Negative (NEGATIVE) Urine Urobilinogen Normal MG/DL (0.0-1.0) Urine Leukocyte Esterase Negative (NEGATIVE) Urine RBC 0-2 /HPF (0 - 0) H Urine WBC 0-2 /HPF (0 - 0) Urine Squamous Epithelial Cells None /LPF (NONE/OCC) Urine Bacteria Occasional /HPF (NONE) Urine Opiates Screen Negative (NEGATIVE) Urine Barbiturates Screen Positive (NEGATIVE) H Phencyclidine (PCP) Screen Negative (NEGATIVE) Urine Amphetamines Screen Negative (NEGATIVE) Urine Benzodiazepines Screen Negative (NEGATIVE) Urine Cocaine Screen Negative (NEGATIVE) Urine Marijuana (THC) Screen Negative (NEGATIVE) Height (Feet): 5 Height (Inches): 11.00 Weight (Pounds): 163 Medications Current Medications Medications (Trade) Dose Ordered Sig/Anthony Route PRN Reason Start Time Stop Time Status Last Admin Dose Admin Acetaminophen (Tylenol) 650 mg Q4H PRN ORAL Mild Pain (Pain Scale 1-3) 11/18/16 18:15 12/18/16 18:14 UNV Albuterol/ Ipratropium (DuoNeb 0.5-3(2.5)mg/3ml) 3 ml Q4H PRN HHN SOB, wheezing 11/18/16 18:15 11/23/16 18:14 UNV Albuterol/ Ipratropium (DuoNeb 0.5-3(2.5)mg/3ml) 3 ml Q6H HHN 11/18/16 18:15 11/23/16 18:14 UNV Bisacodyl (Dulcolax) 10 mg HSPRN PRN RECTAL Constipation 11/18/16 18:15 12/18/16 18:14 UNV Dextrose (Dextrose 50%) STAT PRN IV Hypoglycemia 11/18/16 18:15 12/18/16 18:14 UNV Diphenhydramine HCl (Benadryl) 25 mg Q6H PRN ORAL Itching/Pruritis 11/18/16 18:15 12/18/16 18:14 UNV Diphenhydramine HCl (Benadryl) 50 mg Q4HR PRN ORAL Itching 11/18/16 18:15 12/18/16 18:14 UNV Docusate Sodium (Colace) 100 mg EVERY 12 HOURS ORAL 11/18/16 21:00 12/18/16 20:59 UNV Folic Acid (Folate) 1 mg DAILY ORAL 11/19/16 09:00 12/19/16 08:59 UNV Gabapentin (Neurontin) 500 mg THREE TIMES A DAY ORAL 11/19/16 09:00 12/19/16 08:59 UNV Hydromorphone HCl (Dilaudid) 1 mg Q4H PRN IVP Moderate breakthrough pain 11/18/16 18:00 11/25/16 17:59 Hydromorphone HCl (Dilaudid) 12 mg EVERY 4 HOURS PRN ORAL moderate to severe pain 11/18/16 18:15 11/25/16 18:14 UNV Hydromorphone HCl 2 mg 2 mg Q4H PRN IVP Severe breakthrough pain 11/18/16 18:00 11/25/16 17:59 Hydroxyurea (Hydrea) 500 mg BID ORAL 11/18/16 18:15 11/23/16 18:14 UNV Magnesium Hydroxide (Mom) 30 ml HSPRN PRN ORAL Constipation 11/18/16 18:15 12/18/16 18:14 UNV Methadone HCl (Methadone HCl) 30 mg Q6HR ORAL 11/18/16 18:00 11/25/16 17:59 11/18/16 18:14 Ondansetron HCl (Zofran) 4 mg Q6H PRN IVP Nausea & Vomiting 11/18/16 18:15 12/18/16 18:14 UNV Polyethylene Glycol (Miralax) 17 gm HSPRN PRN ORAL Constipation 11/18/16 18:15 12/18/16 18:14 UNV Rivaroxaban (Xarelto) 15 mg Q12HR ORAL 11/18/16 21:00 12/18/16 20:59 UNV Sodium Chloride (0.45% NS 1000ml) 1,000 ml @ 100 mls/hr Q10H IV 11/18/16 19:08 12/18/16 19:07 UNV Sodium Chloride (Sodium Chloride 1000ml bag) 1,000 ml @ 100 mls/hr Q10H IV 11/18/16 14:15 12/18/16 14:14 11/18/16 15:44 Assessment/Plan Problem List: (1) Sickle cell crisis ICD Codes: D57.00 - Hb-SS disease with crisis, unspecified SNOMED: 232271173 (2) Interstitial lung disease ICD Codes: J84.9 - Interstitial pulmonary disease, unspecified SNOMED: 72893170, 507351005 (3) Pulmonary HTN ICD Codes: I27.2 - Other secondary pulmonary hypertension SNOMED: 24058221 (4) Avascular necrosis of femur head, right ICD Codes: M87.051 - Idiopathic aseptic necrosis of right femur SNOMED: 055595824 (5) Avascular necrosis of femur head, left ICD Codes: M87.052 - Idiopathic aseptic necrosis of left femur SNOMED: 679262332 (6) Acute deep vein thrombosis (DVT) of both lower extremities ICD Codes: I82.403 - Acute embolism and thrombosis of unspecified deep veins of lower extremity, bilateral SNOMED: 269166000294 Status: stable Assessment/Plan - Admit to inpt - Hematology consulted, appreciate rec's - Monitor cell counts, retic - Continue hydroxyurea 500mg bid - Continue Folic acid - IVFs - O2 - Pain mgmt consulted - Cont xarelto for DVT - s/p ceftriaxone in ED on 10/25 - No indication for abx at this time - Check sputum culture - Guaifenesin PRN - Duonebs PRN DVT Prophylaxis: SCD, xarelto Code Status: Full Hospital Classification Declaration: Based on this initial evaluation, and depending on the patient's clinical course, I anticipate that this patient will require hospitalization for 2-3 days for sickle cell crisis, and close respiratory/hemodynamic monitoring. Disposition: Once the patient is stable to leave the hospital, I anticipate the patient will likely be discharged to the following environment: home vs home w/ hh I spent 70 minutes on this patient's case, and 38 minutes were dedicated to counseling and/or care coordination. Discussed with patient/family, nursing staff, SW/CM, pain mgmt, heme/onc, regarding clinical status, treatment course, and disposition planning. Time of note may not reflect time of encounter. Jerri Samaniego M.D. November 18, 2016 18:19
[2016-11-18] MEDS: DuoNeb 0.5-3(2.5)mg/3ml neb HHN SCH (19:00)
[2016-11-18 20:00] VITALS: BP 140/90
[2016-11-18] MEDS: Xarelto 15mg tab ORAL SCH (21:14)
[2016-11-18] MEDS: Hydroxyurea 500mg cap ORAL SCH (21:14)
[2016-11-18] MEDS: Docusate 100mg cap ORAL SCH (21:14)
[2016-11-19] VITALS: BP 129/79
[2016-11-19] MEDS: DuoNeb 0.5-3(2.5)mg/3ml neb HHN SCH ×4 (00:44→19:00)
[2016-11-19] MEDS: HYDROmorphone 4mg tab ORAL PRN ×4 (02:07→20:54)
[2016-11-19 04:00] VITALS: BP 117/75
[2016-11-19 07:19] LABS: BASOPHILS % (AUTO) 2.2 % (0.0-2.0); EOSINOPHILS % (AUTO) 4.2 % (0.0-3.0); LYMPHOCYTES % (AUTO) 50.1 % (20.0-45.0); MEAN CORPUSCULAR HEMOGLOBIN 33.1 PG (27.0-31.0); MEAN CORPUSCULAR HGB CONC 35.3 G/DL (32.0-36.0); MEAN CORPUSCULAR VOLUME 94 FL (80-99); MEAN PLATELET VOLUME 6.3 FL (6.5-10.1); MONOCYTES % (AUTO) 8.6 % (1.0-10.0); NEUTROPHILS % (AUTO) 34.8 % (45.0-75.0); PLATELET COUNT 398 K/UL (150-450); RED BLOOD COUNT 2.64 M/UL (4.70-6.10); RED CELL DISTRIBUTION WIDTH 19.6 % (11.6-14.8); WHITE BLOOD COUNT 13.9 K/UL (4.8-10.8)
[2016-11-19 07:44] LABS: ALBUMIN/GLOBULIN RATIO 1.5 (1.0-2.7); ANION GAP 8 (5-15); CARBON DIOXIDE 29 mEQ/L (20-30); CHLORIDE 104 mEQ/L (98-107); CREATININE 0.8 mg/dL (0.7-1.2); GLOMERULAR FILTRATION RATE > 60 mL/min (>60); HEMOLYSIS 12; MAGNESIUM 1.6 mg/dL (1.7-2.5); POTASSIUM 4.3 mEQ/L (3.4-4.9); SODIUM 141 mEQ/L (135-145); TOTAL PROTEIN 5.7 g/dL (6.6-8.7)
[2016-11-19 08:00] VITALS: BP 126/81
[2016-11-19 08:54] LABS: ASPARTATE AMINO TRANSFERASE 40 U/L (5-40)
[2016-11-19 08:55] LABS: ALANINE AMINOTRANSFERASE 25 U/L (3-41)
[2016-11-19] MEDS: Hydroxyurea 500mg cap ORAL SCH ×2 (09:09→20:46)
[2016-11-19] MEDS: Xarelto 15mg tab ORAL SCH ×2 (09:10→20:46)
[2016-11-19] MEDS: Docusate 100mg cap ORAL SCH ×2 (09:10→20:46)
[2016-11-19 12:00] VITALS: BP 120/76
[2016-11-19] MEDS ORDERED: 1/2 NS 1000ml IV ONE (15:24)
[2016-11-19] MEDS: DiphenhydrAMINE 50mg/ml Inj IVP PRN ×2 (15:30→22:12)
[2016-11-19 16:00] VITALS: BP 134/86
--- NOTE | 2016-11-19 17:33 | Cardiology Report ---
APPROVED REPORT EKG Measurement Heart [id number] Normal sinus rhythm T wave abnormality, consider anterolateral ischemia Abnormal ECG
--- NOTE | 2016-11-19 18:56 | Consultation ---
Consult Note Consult Note DATE OF CONSULTATION: 11/18/2016 HEMATOLOGY/ONCOLOGY CONSULTATION REQUESTING PHYSICIAN: Jreri River M.D. REASON FOR CONSULTATION: Evaluation of sickle cell crisis, DVT IDENTIFICATION: The patient is a pleasant 40-year-old male with a past medical history significant for sickle cell anemia, bilateral hip necrosis avascular, history of stroke at the age of 10, and chronic pain, at this time presents with sob and productive cough. The patient was lethargic in the ER, however, upon presentation to the floor, he was evaluated by me and has been doing well with his sickle cell disease, relatively stable. He has sickle cell crisis and he has been on hydroxyurea 500 mg p.o. b.i.d., gave Dilaudid here in the ER and is getting Dilaudid every four hours on a p.r.n. basis as well as continued folic acid. 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 PAST MEDICAL HISTORY: Sickle cell disease, sickle cell anemia, hip avascular necrosis, and chronic pain. PAST SURGICAL HISTORY: None noted. MEDICATIONS: Hydroxyurea and folic acid at home. Medications currently Benadryl, ceftriaxone, methadone, Dilaudid, Zofran, dextrose, hydroxyurea 500 mg p.o. b.i.d., and heparin 5000 units subcutaneously q.12 h. SOCIAL HISTORY: No alcohol, tobacco, or illicit drug use. FAMILY HISTORY: Does have a history of sickle cell as well in the patient's mother who at the age of 33. REVIEW OF SYSTEMS: Constitutional: No fever, chills, or night sweats. Skin: No rashes, lumps, or itching. HEENT: No headache or vision changes. Breasts: No lumps, pain, or discharge. Pulmonary: Improved breathing at this time. Cardiovascular: ++chest pain and some tightness, however, no palpitations. Gastrointestinal: No nausea, vomiting, or diarrhea. Genitourinary: No dysuria , frequency, or urgency. Musculoskeletal: No joint swelling, muscle pain, or trauma. Neurological: No dizziness, fainting, or seizures. PHYSICAL EXAMINATION: GENERAL: The patient is in no acute distress. VITAL SIGNS: Stable, and reviewed PULMONARY: Decreased breath sounds bilaterally CARDIOVASCULAR: Regular rate. No S3 or S4. GASTROINTESTINAL: Abdomen is soft, nontender, and nondistended. EXTREMITIES: A 1+ edema. LABORATORY AND DIAGNOSTIC DATA: WBC is 9.7, hemoglobin 8.9, hematocrit 22, and platelet count of 433,000. Reticulocyte count is 4.2 ASSESSMENT: 1. Sickle cell crisis with no evidence of acute chest syndrome. Know this patient very well from prior hospital admissions. Has been seen in past by pain service and had been on extraordinarily high doses of pain meds including methadone. Now retic count is elevated, at 4 on admission. On prior crisis has presented with elevated retic count. Hgb >7 goal, patient continues to be in pain at this time, on incentive spirometry. Bili is nml. He has a hx of noncompliance, has extremely high opiod tolerance. Also says will come in next week for appt to see me (however, has a hx of noncompliance) 2. DVT of the lower ext - on xarelto 3. Leukocytosis due to reactive process from anemia 4 Avascular Necrosis of the hip 5. Pain from the sickle cell crisis 6. Pneumonia hx is now resolved RECOMMENDATIONS: - Have reviewed prior admission records - Continue hydroxyurea 500mg bid as well as folic acid - Check retic as daily - Pain management recs - DVT Prophylaxis with xarelto - Out patient Hematology follow up ( next wk, however patient with hx noncompliance) - staff Thank you, Dr. Jerri River for this kind referral. Please do not hesitate to contact me if you have any further questions. Marco Dutton. November 19, 2016 18:56
[2016-11-19 20:00] VITALS: BP 115/80
[2016-11-20] VITALS (7 sets, daily range): BP systolic 114–149; BP diastolic 71–90
[2016-11-20] MEDS: DuoNeb 0.5-3(2.5)mg/3ml neb HHN SCH ×4 (01:20→19:40)
[2016-11-20] MEDS: HYDROmorphone 4mg tab ORAL PRN ×4 (02:12→20:38)
[2016-11-20] MEDS: DiphenhydrAMINE 50mg/ml Inj IVP PRN ×5 (04:35→22:46)
[2016-11-20 06:51] LABS: MEAN CORPUSCULAR HEMOGLOBIN 31.3 PG (27.0-31.0); MEAN CORPUSCULAR HGB CONC 33.4 G/DL (32.0-36.0); MEAN CORPUSCULAR VOLUME 94 FL (80-99); MEAN PLATELET VOLUME 6.4 FL (6.5-10.1); PLATELET COUNT 368 K/UL (150-450); RED BLOOD COUNT 2.62 M/UL (4.70-6.10); RED CELL DISTRIBUTION WIDTH 20.3 % (11.6-14.8); WHITE BLOOD COUNT 15.3 K/UL (4.8-10.8)
[2016-11-20 07:14] LABS: ANION GAP 10 (5-15); CARBON DIOXIDE 29 mEQ/L (20-30); CHLORIDE 103 mEQ/L (98-107); CREATININE 0.8 mg/dL (0.7-1.2); GLOMERULAR FILTRATION RATE > 60 mL/min (>60); HEMOLYSIS 0; MAGNESIUM 2.1 mg/dL (1.7-2.5); POTASSIUM 4.9 mEQ/L (3.4-4.9); SODIUM 142 mEQ/L (135-145)
[2016-11-20] MEDS: Xarelto 15mg tab ORAL SCH ×2 (08:26→20:38)
[2016-11-20] MEDS: Hydroxyurea 500mg cap ORAL SCH ×2 (08:26→20:38)
[2016-11-20] MEDS: Docusate 100mg cap ORAL SCH ×2 (08:27→20:38)
--- NOTE | 2016-11-20 09:41 | General Progress Note ---
Assessment/Plan Problem List: (1) Sickle cell crisis ICD Codes: D57.00 - Hb-SS disease with crisis, unspecified SNOMED: 229763671 (2) Pulmonary HTN ICD Codes: I27.2 - Other secondary pulmonary hypertension SNOMED: 73083696 (3) Interstitial lung disease ICD Codes: J84.9 - Interstitial pulmonary disease, unspecified SNOMED: 73073407, 397960085 (4) Avascular necrosis of femur head, right ICD Codes: M87.051 - Idiopathic aseptic necrosis of right femur SNOMED: 535245943 (5) Avascular necrosis of femur head, left ICD Codes: M87.052 - Idiopathic aseptic necrosis of left femur SNOMED: 691010220 (6) Acute deep vein thrombosis (DVT) of both lower extremities ICD Codes: I82.403 - Acute embolism and thrombosis of unspecified deep veins of lower extremity, bilateral SNOMED: 615215152860 Status: stable Assessment/Plan - Hematology consulted, appreciate rec's - Monitor cell counts, retic - Continue hydroxyurea 500mg bid - Continue Folic acid - IVFs - O2 - Pain mgmt consulted - Cont xarelto for DVT - s/p ceftriaxone in ED on 10/25 - No indication for abx at this time - Check sputum culture if pt able to produc - Guaifenesin PRN - Duonebs PRN DVT Prophylaxis: SCD, xarelto Code Status: Full Hospital Classification Declaration: Based on this initial evaluation, and depending on the patient's clinical course, I anticipate that this patient will require hospitalization for 2-3 days for sickle cell crisis, and close respiratory/hemodynamic monitoring. Disposition: Once the patient is stable to leave the hospital, I anticipate the patient will likely be discharged to the following environment: home vs home w/ hh I spent 40 minutes on this patient's case, and 22 minutes were dedicated to counseling and/or care coordination. Discussed with patient/family, nursing staff, SW/CM, pain mgmt, heme/onc regarding clinical status, treatment course, and disposition planning. Time of note may not reflect time of encounter. Subjective Date patient seen: November 19, 2016 Time patient seen: 12:00 Constitutional: Reports: no symptoms HEENT: Reports: no symptoms Cardiovascular: Reports: chest pain Respiratory: Reports: cough Gastrointestinal/Abdominal: Reports: no symptoms Genitourinary: Reports: no symptoms 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: Reports: no symptoms Endocrine: Reports: no symptoms Hematologic/Lymphatic: Reports: anemia Allergies: Coded Allergies: AMPICILLIN (Verified Allergy, Unknown, 08/03/16) KETOROLAC (Verified Allergy, Unknown, 08/03/16) MORPHINE (Verified Allergy, Unknown, 08/03/16) PHENYTOIN (Verified Allergy, Unknown, 08/03/16) All Systems: reviewed and negative except above Subjective Cont to c/o uncontrolled pain--chest, back, leg--typical spots Also c/o cough, chronic SOB able Denies f/c Objective Last 24 Hour Vital Signs Date Time Temp Pulse Resp B/P Pulse Ox O2 Delivery O2 Flow Rate FiO2 11/20/16 08:00 95.2 89 18 120/71 98 Room Air 11/20/16 07:35 Nasal Cannula 5.0 40 11/20/16 07:35 Nasal Cannula 11/20/16 07:35 98 Nasal Cannula 5.0 40 11/20/16 07:35 Nasal Cannula 11/20/16 05:05 96.5 11/20/16 04:00 96.5 83 20 114/75 97 Nasal Cannula 2.0 11/20/16 03:11 98.2 11/20/16 01:18 Nasal Cannula 11/20/16 01:18 Nasal Cannula 11/20/16 00:00 98.2 88 18 127/84 96 Nasal Cannula 2.0 11/19/16 20:00 97.9 95 18 115/80 94 Room Air 11/19/16 19:31 Nasal Cannula 11/19/16 19:22 Nasal Cannula 11/19/16 19:21 Nasal Cannula 5.0 40 11/19/16 19:21 99 Nasal Cannula 5.0 40 11/19/16 16:00 97.7 100 18 134/86 98 Room Air 11/19/16 13:00 Nasal Cannula 11/19/16 13:00 Nasal Cannula 11/19/16 12:00 97.7 76 16 120/76 97 Room Air Intake and Output 11/19/16 11/20/16 19:00 07:00 Intake Total 840 ml 1533 ml Output Total 1000 ml Balance -160 ml 1533 ml Intake Oral 240 ml 780 ml IV Total 600 ml 753 ml Output Urine Total 1000 ml # Voids 2 3 Laboratory Tests 11/20/16 05:10: White Blood Count 15.3H, Red Blood Count 2.62L, Hemoglobin 8.2L, Hematocrit 24.5L, Mean Corpuscular Volume 94, Mean Corpuscular Hemoglobin 31.3H, Mean Corpuscular Hemoglobin Concent 33.4, Red Cell Distribution Width 20.3H, Platelet Count 368, Mean Platelet Volume 6.4L, Neutrophils (%) (Auto) , Lymphocytes (%) (Auto) , Monocytes (%) (Auto) , Eosinophils (%) (Auto) , Basophils (%) (Auto) , Neutrophils % (Manual) [Pending], Lymphocytes % (Manual) [Pending], Platelet Estimate [Pending], Platelet Morphology [Pending], Sodium Level 142, Potassium Level 4.9, Chloride Level 103, Carbon Dioxide Level 29, Anion Gap 10, Blood Urea Nitrogen 28H, Creatinine 0.8, Estimat Glomerular Filtration Rate > 60, Glucose Level 99, Calcium Level 10.0, Magnesium Level 2.1 Height (Feet): 5 Height (Inches): 11.00 Weight (Pounds): 163 Objective General: alert, cooperative, no distress, appears stated age Head: normocephalic, without obvious abnormality, atraumatic Eyes: conjunctivae/corneas clear. PERRL, EOM's intact Throat: lips, mucosa, and tongue normal. MMM Neck: supple, symmetrical, trachea midline, and no JVD Lungs: clear to auscultation bilaterally Heart: regular rate and rhythm, S1, S2 normal, no murmur, click, rub or gallop Abdomen: soft, non-tender, non-distended, bowel sounds normal; no masses or organomegaly Extremities: extremities normal, atraumatic, no cyanosis or edema Pulses: 2+ and symmetric Skin: skin color, texture, turgor normal; no rashes or lesions Neurologic: grossly normal, no focal deficits Jerri Samaniego M.D. November 20, 2016 09:41
[2016-11-20 10:34] LABS: BAND NEUTROPHILS % (MANUAL) 0 % (0-8); BASOPHILS % (MANUAL) 0 % (0-2); EOSINOPHILS % (MANUAL) 9 % (0-3); LYMPHOCYTES % (MANUAL) 40 % (20-45); NEUTROPHILS % (MANUAL) 42 % (45-75); PLATELET ESTIMATE ADEQUATE; PLATELET MORPHOLOGY NORMAL; TOTAL CELLS COUNTED 100
[2016-11-20 10:35] LABS: ANISOCYTOSIS 2+; HYPOCHROMASIA 1+
[2016-11-20 10:36] LABS: SICKLE CELLS RARE
--- NOTE | 2016-11-20 12:20 | General Progress Note ---
Assessment/Plan Assessment/Plan (1) Intractable pain (2) Avascular necrosis of femur head, left (3) Sickle cell crisis (4) Avascular necrosis of femur head, right Patient will be continue methadone,and Dilaudid RX for Methadone 10mg 200 tabs, and Dilaudid 4mg 180 tabs was written for the patient in anticipation for discharged. He was advised to either follow up with Dr. Perera in the office to be tapered off the medication or find another doctor karlie. Pt was d/w Dr. Perera and he concurred. Subjective Date patient seen: November 20, 2016 Time patient seen: 11:30 - am Allergies: Coded Allergies: AMPICILLIN (Verified Allergy, Unknown, 08/03/16) KETOROLAC (Verified Allergy, Unknown, 08/03/16) MORPHINE (Verified Allergy, Unknown, 08/03/16) PHENYTOIN (Verified Allergy, Unknown, 08/03/16) Subjective Subjective Constitutional: Reports: chills HEENT: Denies: blurred vision, double vision, ear discharge, ear pain, eye pain , mouth pain, mouth swelling, nose congestion, nose pain, tearing, throat pain, throat swelling Cardiovascular: Denies: chest pain, edema, irregular heart rate, lightheadedness, palpitations, syncope Respiratory: Denies: SOB at rest, SOB with excertion, cough, orthopnea, shortness of breath, sputum, stridor, wheezing Gastrointestinal/Abdominal: Denies: abdomen distended, abdominal pain, black stools, blood in stool, constipated, diarrhea, difficulty swallowing, nausea, poor appetite, poor fluid intake, rectal bleeding, tarry stools, vomiting Genitourinary: Reports: other, Denies: burning, discharge, flank pain, frequency, hematuria, incontinence, pain, urgency 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: Reports: other, Denies: anxiety, depressed, emotional problems, headache, numbness, paresthesia, pre-existing deficit, seizure, tingling, tremors, weakness Endocrine: Reports: other, Denies: excessive sweating, flushing, increased hunger, increased thirst, increased urine, intolerance to cold, intolerance to heat, unexplained weight gain, unexplained weight loss Hematologic/Lymphatic: Denies: anemia, easy bleeding, easy bruising Subjective Pt is a known patient from prior admission who has been on high doses of methadone and Dilaudid in the past. He has been admitted for pain control for SCS crisis. Pt was started on Methadone 30mg Q6H, Dilaudid 12mg tab Q4H, 1mg IV Q4H, and 2mg IV Q4H. He explains that he has not been able to find physicians as an out pt to take care of him and this is why he keeps being admitted to the hospital. I d/w pt about his medication regimen and tolerance with now the need to be tapered off the medication to a moderate level. He was advised to f/u in Dr. Perera or find a physician karlie. He seems to understand. Objective Last 24 Hour Vital Signs Date Time Temp Pulse Resp B/P Pulse Ox O2 Delivery O2 Flow Rate FiO2 11/20/16 08:00 95.2 89 18 120/71 98 Room Air 11/20/16 07:35 Nasal Cannula 5.0 40 11/20/16 07:35 Nasal Cannula 11/20/16 07:35 98 Nasal Cannula 5.0 40 11/20/16 07:35 Nasal Cannula 11/20/16 05:05 96.5 11/20/16 04:00 96.5 83 20 114/75 97 Nasal Cannula 2.0 11/20/16 03:11 98.2 11/20/16 01:18 Nasal Cannula 11/20/16 01:18 Nasal Cannula 11/20/16 00:00 98.2 88 18 127/84 96 Nasal Cannula 2.0 11/19/16 20:00 97.9 95 18 115/80 94 Room Air 11/19/16 19:31 Nasal Cannula 11/19/16 19:22 Nasal Cannula 11/19/16 19:21 Nasal Cannula 5.0 40 11/19/16 19:21 99 Nasal Cannula 5.0 40 11/19/16 16:00 97.7 100 18 134/86 98 Room Air 11/19/16 13:00 Nasal Cannula 11/19/16 13:00 Nasal Cannula Intake and Output 11/19/16 11/20/16 19:00 07:00 Intake Total 840 ml 1533 ml Output Total 1000 ml Balance -160 ml 1533 ml Intake Oral 240 ml 780 ml IV Total 600 ml 753 ml Output Urine Total 1000 ml # Voids 2 3 Laboratory Tests 11/20/16 05:10: White Blood Count 15.3H, Red Blood Count 2.62L, Hemoglobin 8.2L, Hematocrit 24.5L, Mean Corpuscular Volume 94, Mean Corpuscular Hemoglobin 31.3H, Mean Corpuscular Hemoglobin Concent 33.4, Red Cell Distribution Width 20.3H, Platelet Count 368, Mean Platelet Volume 6.4L, Neutrophils (%) (Auto) , Lymphocytes (%) (Auto) , Monocytes (%) (Auto) , Eosinophils (%) (Auto) , Basophils (%) (Auto) , Differential Total Cells Counted 100, Neutrophils % ( Manual) 42L, Lymphocytes % (Manual) 40, Monocytes % (Manual) 9, Eosinophils % ( Manual) 9H, Basophils % (Manual) 0, Band Neutrophils 0, Platelet Estimate Adequate, Platelet Morphology Normal, Hypochromasia 1+, Anisocytosis 2+, Sickle Cells RareH, Sodium Level 142, Potassium Level 4.9, Chloride Level 103, Carbon Dioxide Level 29, Anion Gap 10, Blood Urea Nitrogen 28H, Creatinine 0.8, Estimat Glomerular Filtration Rate > 60, Glucose Level 99, Calcium Level 10.0, Magnesium Level 2.1 Height (Feet): 5 Height (Inches): 11.00 Weight (Pounds): 163 Objective General Appearance: no apparent distress, alert EENT: PERRL/EOMI, normal ENT inspection Neck: non-tender, normal alignment Cardiovascular: normal rate, regular rhythm Respiratory/Chest: decreased breath sounds Abdomen: non tender, soft Edema: no edema noted Arm (L), no edema noted Arm (R), no edema noted Leg (L), no edema noted Leg (R), no edema noted Pedal (L), no edema noted Pedal (R), no edema noted Generalized Neurologic: alert, oriented x 3 Skin: warm/dry ANTIONE PHILLIPS PCali November 20, 2016 12:20
[2016-11-20] MEDS ORDERED: HYDREA500 MG PO (12:44)
[2016-11-20] MEDS ORDERED: FOLIC ACID1 MG ORAL (12:44)
[2016-11-20] MEDS ORDERED: GABAPENTIN400 MG ORAL (12:44)
[2016-11-20] MEDS ORDERED: 1/2 NS 1000ml IV ONE (16:07)
--- NOTE | 2016-11-20 20:26 | General Progress Note ---
Assessment/Plan Problem List: (1) Sickle cell crisis ICD Codes: D57.00 - Hb-SS disease with crisis, unspecified SNOMED: 304457053 (2) Pulmonary HTN ICD Codes: I27.2 - Other secondary pulmonary hypertension SNOMED: 69759673 (3) Interstitial lung disease ICD Codes: J84.9 - Interstitial pulmonary disease, unspecified SNOMED: 84710279, 225120448 (4) Avascular necrosis of femur head, right ICD Codes: M87.051 - Idiopathic aseptic necrosis of right femur SNOMED: 206297985 (5) Avascular necrosis of femur head, left ICD Codes: M87.052 - Idiopathic aseptic necrosis of left femur SNOMED: 039712158 (6) Acute deep vein thrombosis (DVT) of both lower extremities ICD Codes: I82.403 - Acute embolism and thrombosis of unspecified deep veins of lower extremity, bilateral SNOMED: 499138355327 Status: stable Assessment/Plan - Hematology consulted, appreciate rec's - Monitor cell counts, retic - Continue hydroxyurea 500mg bid - Continue Folic acid - IVFs - O2 - Pain mgmt consulted - Cont xarelto for DVT - s/p ceftriaxone in ED on 10/25 - No indication for abx at this time - Check sputum culture if pt able to produc - Guaifenesin PRN - Duonebs PRN - DC planning for tomorrow DVT Prophylaxis: SCD, xarelto Code Status: Full Hospital Classification Declaration: Based on this initial evaluation, and depending on the patient's clinical course, I anticipate that this patient will require hospitalization for 1-2 days for sickle cell crisis, and close respiratory/hemodynamic monitoring. Disposition: Once the patient is stable to leave the hospital, I anticipate the patient will likely be discharged to the following environment: home vs home w/ hh I spent 39 minutes on this patient's case, and 21 minutes were dedicated to counseling and/or care coordination. Discussed with patient/family, nursing staff, SW/CM, pain mgmt, heme/onc regarding clinical status, treatment course, and disposition planning. Time of note may not reflect time of encounter. Subjective Date patient seen: November 20, 2016 Time patient seen: 12:00 ROS Limited/Unobtainable: No HEENT: Reports: no symptoms Cardiovascular: Reports: chest pain Respiratory: Reports: cough Gastrointestinal/Abdominal: Reports: no symptoms Genitourinary: Reports: no symptoms 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: Reports: no symptoms Endocrine: Reports: no symptoms Hematologic/Lymphatic: Reports: anemia Allergies: Coded Allergies: AMPICILLIN (Verified Allergy, Unknown, 08/03/16) KETOROLAC (Verified Allergy, Unknown, 08/03/16) MORPHINE (Verified Allergy, Unknown, 08/03/16) PHENYTOIN (Verified Allergy, Unknown, 08/03/16) All Systems: reviewed and negative except above Subjective Cont to c/o uncontrolled pain--chest, back, leg--typical spots Also c/o cough, chronic SOB stable Denies f/c Objective Last 24 Hour Vital Signs Date Time Temp Pulse Resp B/P Pulse Ox O2 Delivery O2 Flow Rate FiO2 11/20/16 19:40 100 Nasal Cannula 2.0 28 11/20/16 19:40 Nasal Cannula 2.0 28 11/20/16 19:40 Nasal Cannula 2.0 28 11/20/16 19:40 90 16 100 Nasal Cannula 2.0 28 11/20/16 16:07 99.0 93 20 132/84 95 Room Air 11/20/16 14:12 99.3 11/20/16 12:55 Nasal Cannula 11/20/16 12:55 Nasal Cannula 11/20/16 12:00 99.3 90 16 136/84 95 Nasal Cannula 6.0 11/20/16 08:00 95.2 89 18 120/71 98 Room Air 11/20/16 07:35 Nasal Cannula 5.0 40 11/20/16 07:35 Nasal Cannula 11/20/16 07:35 98 Nasal Cannula 5.0 40 11/20/16 07:35 Nasal Cannula 11/20/16 05:05 96.5 11/20/16 04:00 96.5 83 20 114/75 97 Nasal Cannula 2.0 11/20/16 01:18 Nasal Cannula 11/20/16 01:18 Nasal Cannula 11/20/16 00:00 98.2 88 18 127/84 96 Nasal Cannula 2.0 Intake and Output 11/19/16 11/20/16 19:00 07:00 Intake Total 840 ml 1608 ml Output Total 1000 ml Balance -160 ml 1608 ml Intake Oral 240 ml 780 ml IV Total 600 ml 828 ml Output Urine Total 1000 ml # Voids 2 3 Laboratory Tests 11/20/16 05:10: White Blood Count 15.3H, Red Blood Count 2.62L, Hemoglobin 8.2L, Hematocrit 24.5L, Mean Corpuscular Volume 94, Mean Corpuscular Hemoglobin 31.3H, Mean Corpuscular Hemoglobin Concent 33.4, Red Cell Distribution Width 20.3H, Platelet Count 368, Mean Platelet Volume 6.4L, Neutrophils (%) (Auto) , Lymphocytes (%) (Auto) , Monocytes (%) (Auto) , Eosinophils (%) (Auto) , Basophils (%) (Auto) , Differential Total Cells Counted 100, Neutrophils % ( Manual) 42L, Lymphocytes % (Manual) 40, Monocytes % (Manual) 9, Eosinophils % ( Manual) 9H, Basophils % (Manual) 0, Band Neutrophils 0, Platelet Estimate Adequate, Platelet Morphology Normal, Hypochromasia 1+, Anisocytosis 2+, Sickle Cells RareH, Sodium Level 142, Potassium Level 4.9, Chloride Level 103, Carbon Dioxide Level 29, Anion Gap 10, Blood Urea Nitrogen 28H, Creatinine 0.8, Estimat Glomerular Filtration Rate > 60, Glucose Level 99, Calcium Level 10.0, Magnesium Level 2.1 Height (Feet): 5 Height (Inches): 11.00 Weight (Pounds): 163 Objective General: alert, cooperative, no distress, appears stated age Head: normocephalic, without obvious abnormality, atraumatic Eyes: conjunctivae/corneas clear. PERRL, EOM's intact Throat: lips, mucosa, and tongue normal. MMM Neck: supple, symmetrical, trachea midline, and no JVD Lungs: clear to auscultation bilaterally Heart: regular rate and rhythm, S1, S2 normal, no murmur, click, rub or gallop Abdomen: soft, non-tender, non-distended, bowel sounds normal; no masses or organomegaly Extremities: extremities normal, atraumatic, no cyanosis or edema Pulses: 2+ and symmetric Skin: skin color, texture, turgor normal; no rashes or lesions Neurologic: grossly normal, no focal deficits Jerri Samaniego M.D. November 20, 2016 20:26
--- NOTE | 2016-11-21 00:30 | General Progress Note ---
Assessment/Plan Assessment/Plan ASSESSMENT: 1. Sickle cell crisis with no evidence of acute chest syndrome. Know this patient very well from prior hospital admissions. Has been seen in past by pain service and had been on extraordinarily high doses of pain meds including methadone. Now retic count is elevated, at 4 on admission. On prior crisis has presented with elevated retic count. Hgb >7 goal, patient continues to be in pain at this time, on incentive spirometry. Bili is nml. He has a hx of noncompliance, has extremely high opiod tolerance. Also says will come in next week for appt to see me (however, has a hx of noncompliance) 2. DVT of the lower ext - on xarelto 3. Leukocytosis due to reactive process from anemia 4 Avascular Necrosis of the hip 5. Pain from the sickle cell crisis 6. Pneumonia hx is now resolved RECOMMENDATIONS: - Have reviewed prior admission records - Continue hydroxyurea 500mg bid as well as folic acid - Check retic as daily - Pain management recs - DVT Prophylaxis with xarelto - Out patient Hematology follow up (Tues next wk, however patient with hx noncompliance) - staff Alfredo Dutton M.D. Subjective Constitutional: Reports: no symptoms HEENT: Reports: no symptoms Cardiovascular: Reports: no symptoms Respiratory: Reports: no symptoms Gastrointestinal/Abdominal: Reports: no symptoms Genitourinary: Reports: no symptoms 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: Reports: no symptoms Endocrine: Reports: no symptoms Hematologic/Lymphatic: Reports: no symptoms Allergies: Coded Allergies: AMPICILLIN (Verified Allergy, Unknown, 08/03/16) KETOROLAC (Verified Allergy, Unknown, 08/03/16) MORPHINE (Verified Allergy, Unknown, 08/03/16) PHENYTOIN (Verified Allergy, Unknown, 08/03/16) Objective Last 24 Hour Vital Signs Date Time Temp Pulse Resp B/P Pulse Ox O2 Delivery O2 Flow Rate FiO2 11/20/16 23:59 98.4 95 18 149/90 93 Nasal Cannula 2.0 11/20/16 23:16 98.2 11/20/16 21:37 98.2 11/20/16 21:36 98.2 11/20/16 20:00 98.2 92 18 135/85 97 Nasal Cannula 2.0 11/20/16 19:40 100 Nasal Cannula 2.0 28 11/20/16 19:40 Nasal Cannula 2.0 28 11/20/16 19:40 Nasal Cannula 2.0 28 11/20/16 19:40 90 16 100 Nasal Cannula 2.0 28 11/20/16 16:07 99.0 93 20 132/84 95 Room Air 11/20/16 12:55 Nasal Cannula 11/20/16 12:55 Nasal Cannula 11/20/16 12:00 99.3 90 16 136/84 95 Nasal Cannula 6.0 11/20/16 08:00 95.2 89 18 120/71 98 Room Air 11/20/16 07:35 Nasal Cannula 5.0 40 11/20/16 07:35 Nasal Cannula 11/20/16 07:35 98 Nasal Cannula 5.0 40 11/20/16 07:35 Nasal Cannula 11/20/16 04:00 96.5 83 20 114/75 97 Nasal Cannula 2.0 11/20/16 01:18 Nasal Cannula 11/20/16 01:18 Nasal Cannula Intake and Output 11/20/16 11/21/16 19:00 07:00 Intake Total 1425 ml 300 ml Output Total 2400 ml Balance -975 ml 300 ml Intake Oral 600 ml IV Total 825 ml 300 ml Output Urine Total 2400 ml Laboratory Tests 11/20/16 05:10: White Blood Count 15.3H, Red Blood Count 2.62L, Hemoglobin 8.2L, Hematocrit 24.5L, Mean Corpuscular Volume 94, Mean Corpuscular Hemoglobin 31.3H, Mean Corpuscular Hemoglobin Concent 33.4, Red Cell Distribution Width 20.3H, Platelet Count 368, Mean Platelet Volume 6.4L, Neutrophils (%) (Auto) , Lymphocytes (%) (Auto) , Monocytes (%) (Auto) , Eosinophils (%) (Auto) , Basophils (%) (Auto) , Differential Total Cells Counted 100, Neutrophils % ( Manual) 42L, Lymphocytes % (Manual) 40, Monocytes % (Manual) 9, Eosinophils % ( Manual) 9H, Basophils % (Manual) 0, Band Neutrophils 0, Platelet Estimate Adequate, Platelet Morphology Normal, Hypochromasia 1+, Anisocytosis 2+, Sickle Cells RareH, Sodium Level 142, Potassium Level 4.9, Chloride Level 103, Carbon Dioxide Level 29, Anion Gap 10, Blood Urea Nitrogen 28H, Creatinine 0.8, Estimat Glomerular Filtration Rate > 60, Glucose Level 99, Calcium Level 10.0, Magnesium Level 2.1 Height (Feet): 5 Height (Inches): 11.00 Weight (Pounds): 163 General Appearance: no apparent distress EENT: TMs normal Neck: supple Cardiovascular: normal rate Respiratory/Chest: lungs clear Abdomen: no organomegaly Extremities: non-tender Edema: no edema noted Arm (L), no edema noted Arm (R), no edema noted Leg (L), no edema noted Leg (R), no edema noted Pedal (L), no edema noted Pedal (R), no edema noted Generalized ALFREDO DUTTON November 21, 2016 00:30
[2016-11-21] MEDS: DuoNeb 0.5-3(2.5)mg/3ml neb HHN SCH ×2 (01:29→06:30)
[2016-11-21] MEDS: HYDROmorphone 4mg tab ORAL PRN ×2 (02:44→09:41)
[2016-11-21 04:00] VITALS: BP 146/88
[2016-11-21] MEDS: DiphenhydrAMINE 50mg/ml Inj IVP PRN ×2 (04:47→10:43)
[2016-11-21 08:00] VITALS: BP 143/98
--- NOTE | 2016-11-21 08:12 | General Progress Note ---
Assessment/Plan Assessment/Plan (1) Intractable pain (2) Avascular necrosis of femur head, left (3) Sickle cell crisis (4) Avascular necrosis of femur head, right Patient will be continue methadone,and Dilaudid Pt was d/w Dr. Perera and he concurred. Subjective Date patient seen: November 21, 2016 Time patient seen: 07:15 - am Allergies: Coded Allergies: AMPICILLIN (Verified Allergy, Unknown, 08/03/16) KETOROLAC (Verified Allergy, Unknown, 08/03/16) MORPHINE (Verified Allergy, Unknown, 08/03/16) PHENYTOIN (Verified Allergy, Unknown, 08/03/16) Subjective Subjective Constitutional: Reports: chills HEENT: Denies: blurred vision, double vision, ear discharge, ear pain, eye pain , mouth pain, mouth swelling, nose congestion, nose pain, tearing, throat pain, throat swelling Cardiovascular: Denies: chest pain, edema, irregular heart rate, lightheadedness, palpitations, syncope Respiratory: Denies: SOB at rest, SOB with excertion, cough, orthopnea, shortness of breath, sputum, stridor, wheezing Gastrointestinal/Abdominal: Denies: abdomen distended, abdominal pain, black stools, blood in stool, constipated, diarrhea, difficulty swallowing, nausea, poor appetite, poor fluid intake, rectal bleeding, tarry stools, vomiting Genitourinary: Reports: other, Denies: burning, discharge, flank pain, frequency, hematuria, incontinence, pain, urgency 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: Reports: other, Denies: anxiety, depressed, emotional problems, headache, numbness, paresthesia, pre-existing deficit, seizure, tingling, tremors, weakness Endocrine: Reports: other, Denies: excessive sweating, flushing, increased hunger, increased thirst, increased urine, intolerance to cold, intolerance to heat, unexplained weight gain, unexplained weight loss Hematologic/Lymphatic: Denies: anemia, easy bleeding, easy bruising Subjective His pain has been unchanged and can be severe with movement and walking at times. The pain is tolerated on the medications. Objective Last 24 Hour Vital Signs Date Time Temp Pulse Resp B/P Pulse Ox O2 Delivery O2 Flow Rate FiO2 11/21/16 05:17 98.4 11/21/16 04:00 98.2 91 19 146/88 96 Nasal Cannula 2.0 11/21/16 03:43 98.4 11/21/16 01:29 Nasal Cannula 2.0 28 11/21/16 01:29 Nasal Cannula 2.0 28 11/20/16 23:59 98.4 95 18 149/90 93 Nasal Cannula 2.0 11/20/16 21:36 98.2 11/20/16 20:00 98.2 92 18 135/85 97 Nasal Cannula 2.0 11/20/16 19:40 100 Nasal Cannula 2.0 11/20/16 19:40 Nasal Cannula 2.0 28 11/20/16 19:40 Nasal Cannula 2.0 28 11/20/16 19:40 90 16 100 Nasal Cannula 2.0 11/20/16 16:07 99.0 93 20 132/84 95 Room Air 11/20/16 12:55 Nasal Cannula 11/20/16 12:55 Nasal Cannula 11/20/16 12:00 99.3 90 16 136/84 95 Nasal Cannula 6.0 Intake and Output 11/20/16 11/21/16 19:00 07:00 Intake Total 1425 ml 1465 ml Output Total 2400 ml 1800 ml Balance -975 ml -335 ml Intake Oral 600 ml 640 ml IV Total 825 ml 825 ml Output Urine Total 2400 ml 1800 ml Height (Feet): 5 Height (Inches): 11.00 Weight (Pounds): 163 Objective General Appearance: no apparent distress, alert EENT: PERRL/EOMI, normal ENT inspection Neck: non-tender, normal alignment Cardiovascular: normal rate, regular rhythm Respiratory/Chest: decreased breath sounds Abdomen: non tender, soft Edema: no edema noted Arm (L), no edema noted Arm (R), no edema noted Leg (L), no edema noted Leg (R), no edema noted Pedal (L), no edema noted Pedal (R), no edema noted Generalized Neurologic: alert, oriented x 3 Skin: warm/dry ANTIONE PHILLIPS P.Ilda November 21, 2016 08:12
[2016-11-21] MEDS: Xarelto 15mg tab ORAL SCH (09:40)
[2016-11-21] MEDS: Hydroxyurea 500mg cap ORAL SCH (09:41)
[2016-11-21] MEDS: Docusate 100mg cap ORAL SCH (09:41)
[2016-11-21 11:09] LABS: OTHERS PATHOLOGIST COMMENT
[2016-11-21] MEDS ORDERED: 1/2 NS 1000ml IV ONE (11:09)
--- NOTE | 2016-11-21 15:35 | Discharge Summary ---
Discharge Summary Hospital Course Date of Admission November 18, 2016 at 14:40 Date of Discharge November 21, 2016 at 11:10 Admitting Diagnosis Sickle cell crisis Reason for Hospitalization: Sickle cell crisis HPI 40 y/o male with pmh of sickle cell anemia, b/l hip avascular necrosis, recent acute DVT (on xarelto), chronic pain, opioid dependence who presents with worsening chest pain, back pain, and leg pain. Pt states symptoms are characteristic of his typical sickle cell flare up. He has been having worsening pain for the past few days. He also notes a cough with some productive sputum, green in color. Low grade temp at home. Denies chills, SOB, abd pain, d/c. Denies recent travel, sick contacts, trauma. In ED, pt given IVFs, cefriaxone, dilaudid + benadryl IV. Consultations Pain mgmt, Heme/onc Hospital Course Pt was admitted and treated for sickle cell crisis with IVFs, O2, pain medications. Pain mgmt was consulted given pt's chronic opioid dependence which made pain control very difficult. Pt did not require any transfusions per heme/ onc. Once pt's pain controlled, he was discharged home. Prior to d/c, he was HD stable, tolerating PO, and ambulating w/o assistance. Pt was counseled extensively on medication compliance and importance of outpatient follow-up. Discharge Medications Continued Medications: Diphenhydramine HCl (Benadryl) 25 Mg Capsule 50 MG PO Q4HR PRN for Itching, CAP Folic Acid* (Folic Acid*) 1 Mg Tablet 1 MG ORAL DAILY for 30 Days, #30 TAB 6 Refills (This prescription has been renewed) Gabapentin* (Gabapentin*) 400 Mg Capsule 500 MG ORAL THREE TIMES A DAY for 30 Days, #90 CAP 1 Refill (This prescription has been renewed) Hydromorphone HCl (Dilaudid) 4 Mg Tablet 12 MG ORAL EVERY 4 HOURS, #60 TAB 0 Refills Hydroxyurea* (Hydrea*) 500 Mg Capsule 500 MG PO BID for 30 Days, #30 CAP 6 Refills (This prescription has been renewed ) Methadone Hcl* (Methadone*) 10 Mg Tablet 50 MG PO Q6HR, #90 TAB 0 Refills Rivaroxaban (Xarelto) 15 Mg Tablet 15 MG ORAL Q12HR for 60 Days, TAB Discharge Condition Upon Discharge: stable Discharge Disposition Patient was discharged to Home () Discharge Diagnoses: (1) Sickle cell disease (2) Acute deep vein thrombosis (DVT) of both lower extremities (3) Avascular necrosis of femur head, left (4) Avascular necrosis of femur head, right (5) Pulmonary HTN (6) Interstitial lung disease Jerri Samaniego M.D. November 21, 2016 15:35
--- NOTE | 2016-11-21 19:43 | General Progress Note ---
Assessment/Plan Assessment/Plan ASSESSMENT: 1. Sickle cell crisis with no evidence of acute chest syndrome. Know this patient very well from prior hospital admissions. Has been seen in past by pain service and had been on extraordinarily high doses of pain meds including methadone. Now retic count is elevated, at 4 on admission. On prior crisis has presented with elevated retic count. Hgb >7 goal, patient continues to be in pain at this time, on incentive spirometry. Bili is nml. He has a hx of noncompliance, has extremely high opiod tolerance. Also says will come in next week for appt to see me (however, has a hx of noncompliance) 2. DVT of the lower ext - on xarelto 3. Leukocytosis due to reactive process from anemia 4 Avascular Necrosis of the hip 5. Pain from the sickle cell crisis 6. Pneumonia hx is now resolved RECOMMENDATIONS: - Have reviewed prior admission records - Continue hydroxyurea 500mg bid as well as folic acid - Check retic as daily - Pain management recs - DVT Prophylaxis with xarelto - Out patient Hematology follow up (Tu next wk, however patient with hx noncompliance) - Stable for discharge! Subjective Constitutional: Reports: no symptoms HEENT: Reports: no symptoms Cardiovascular: Reports: no symptoms Respiratory: Reports: no symptoms Gastrointestinal/Abdominal: Reports: no symptoms Genitourinary: Reports: burning 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: Reports: no symptoms Endocrine: Reports: no symptoms Hematologic/Lymphatic: Reports: anemia Allergies: Coded Allergies: AMPICILLIN (Verified Allergy, Unknown, 08/03/16) KETOROLAC (Verified Allergy, Unknown, 08/03/16) MORPHINE (Verified Allergy, Unknown, 08/03/16) PHENYTOIN (Verified Allergy, Unknown, 08/03/16) Subjective to be disharged today, has car home Objective Last 24 Hour Vital Signs Date Time Temp Pulse Resp B/P Pulse Ox O2 Delivery O2 Flow Rate FiO2 11/21/16 08:00 96.8 87 18 143/98 98 Room Air 11/21/16 06:49 Nasal Cannula 2.0 11/21/16 06:49 Nasal Cannula 2.0 11/21/16 06:49 Nasal Cannula 2.0 11/21/16 06:49 94 Nasal Cannula 2.0 11/21/16 05:17 98.4 11/21/16 04:00 98.2 91 19 146/88 96 Nasal Cannula 2.0 11/21/16 03:43 98.4 11/21/16 01:29 Nasal Cannula 2.0 28 11/21/16 01:29 Nasal Cannula 2.0 28 11/20/16 23:59 98.4 95 18 149/90 93 Nasal Cannula 2.0 11/20/16 21:36 98.2 11/20/16 20:00 98.2 92 18 135/85 97 Nasal Cannula 2.0 Intake and Output 11/20/16 11/21/16 19:00 07:00 Intake Total 1425 ml 1465 ml Output Total 2400 ml 1800 ml Balance -975 ml -335 ml Intake Oral 600 ml 640 ml IV Total 825 ml 825 ml Output Urine Total 2400 ml 1800 ml Height (Feet): 5 Height (Inches): 11.00 Weight (Pounds): 163 General Appearance: no apparent distress EENT: TMs normal Neck: supple Cardiovascular: regular rhythm Respiratory/Chest: lungs clear Abdomen: soft Genitourinary/Rectal: normal rectal exam Extremities: non-tender Edema: 1+ Leg (L), 1+ Leg (R) Edema: mild edema Neurologic: alert Skin: warm/dry Marco Dutton November 21, 2016 19:43
== END 2016-11-21 11:10 | disposition home or self-care (01) | DRG 812 ==
LOC: ENRESERVTM → ENRESERVDT → EMR 14:28 → EDBEDREQ 14:38 → 4W 14:40 → EDBEDREQ 14:50 → 4W 17:11
DX: D57.00 Hb-SS disease with crisis, unspecified (principal); J84.9 Interstitial pulmonary disease, unspecified; I27.2 Other secondary pulmonary hypertension; I82.403 Acute embolism and thrombosis of unspecified deep veins of lower extremity, bilateral; M87.851 Other osteonecrosis, right femur; M87.852 Other osteonecrosis, left femur; I10 Essential (primary) hypertension; J40 Bronchitis, not specified as acute or chronic; J45.909 Unspecified asthma, uncomplicated; J44.9 Chronic obstructive pulmonary disease, unspecified; G40.909 Epilepsy, unspecified, not intractable, without status epilepticus; Z88.6 Allergy status to analgesic agent; Z88.1 Allergy status to other antibiotic agents; Z88.8 Allergy status to other drugs, medicaments and biological substances; Z91.19 Patient's noncompliance with other medical treatment and regimen
CPT/HCPCS: 36415; 71010; 80048; 80053; 80300; 81003; 82248; 82550; 83605; 83615; 83735; 83880; 84484; 85007; 85025; 85044; 85610; 85730; 86850; 86900; 86901; 87040; 87081; 93005; 94640; 94664; 94760; J7620

== ENCOUNTER 2017-08-25 18:33 | Inpatient (IN) | payer MEDICARE, OTHER ==
[~2017-08-25] VITALS: Ht 180.3 cm; Wt 75.3 kg
[2017-08-25] MEDS ORDERED: HYDROmorphone 1mg/ml Carpuject IVP ONE ×2 (19:30→21:30)
[2017-08-25] MEDS ORDERED: DiphenhydrAMINE 50mg/ml Inj IVP ONE ×2 (19:30→21:30)
[2017-08-25 20:55] LABS: BASOPHILS % (AUTO) 3.4 % (0.0-2.0); EOSINOPHILS % (AUTO) 3.5 % (0.0-3.0); HEMATOCRIT 31.5 % (42.0-52.0); HEMOGLOBIN 10.1 G/DL (14.2-18.0); MEAN CORPUSCULAR VOLUME 96 FL (80-99); MONOCYTES % (AUTO) 9.9 % (1.0-10.0); NEUTROPHILS % (AUTO) 67.1 % (45.0-75.0); PLATELET COUNT 387 K/UL (150-450); RED BLOOD COUNT 3.29 M/UL (4.70-6.10); RED CELL DISTRIBUTION WIDTH 16.5 % (11.6-14.8); WHITE BLOOD COUNT 13.8 K/UL (4.8-10.8)
[2017-08-25 21:09] LABS: INR 1.2 (0.9-1.1)
[2017-08-25 21:18] LABS: ANION GAP 1 mmol/L (5-15); BLOOD UREA NITROGEN 25 mg/dL (7-18); CALCIUM 9.7 MG/DL (8.5-10.1); CARBON DIOXIDE 32 MMOL/L (21-32); CHLORIDE 105 MMOL/L (98-107); CREATININE 0.8 MG/DL (0.55-1.30); POTASSIUM 4.7 MMOL/L (3.5-5.1); SODIUM 138 MMOL/L (136-145)
[2017-08-25 21:25] LABS: ALANINE AMINOTRANSFERASE 56 U/L (12-78); ALBUMIN 3.3 G/DL (3.4-5.0); ALBUMIN/GLOBULIN RATIO 0.9 (1.0-2.7); ALKALINE PHOSPHATASE 151 U/L (46-116); ASPARTATE AMINO TRANSFERASE 56 U/L (15-37); BILIRUBIN,TOTAL 0.8 MG/DL (0.2-1.0); CREATINE KINASE 23 U/L (26-308)
[2017-08-25] MEDS ORDERED: Miralax 17gm pkt ORAL PRN (22:30)
[2017-08-25] MEDS ORDERED: LORazepam Inj 2mg/ml 1ml IV PRN (22:30)
[2017-08-25] MEDS ORDERED: Zolpidem 5mg tab ORAL PRN (22:30)
[2017-08-25] MEDS ORDERED: Mylanta II UD 30ml ORAL PRN (22:30)
[2017-08-25 23:18] LABS: APPEARANCE,URINE CLEAR; BILIRUBIN, URINE NEGATIVE (NEGATIVE); COLOR,URINE AMBER; GLUCOSE, URINE (UA) NEGATIVE (NEGATIVE); KETONES,URINE NEGATIVE (NEGATIVE); LEUKOCYTE ESTERASE ,URINE NEGATIVE (NEGATIVE); NITRITE,URINE NEGATIVE (NEGATIVE); PH,URINE 6 (4.5-8.0); PROTEIN,URINE 2+ (NEGATIVE); UROBILINOGEN,URINE NORMAL MG/DL (0.0-1.0)
--- NOTE | 2017-08-25 23:21 | Emergency Room Report ---
History of Present Illness General Chief Complaint: Pain Source: Patient, Medical Record Present Illness HPI 41-year-old male presents ED for evaluation. Complaining of cough and body pain starting yesterday. Pain as throbbing, 10 out of 10, nonradiating. Notes cough with productive greenish sputum. Denies fevers or chills. Believes he has pneumonia. Has history of sickle cell disease. PMD is Dr. Dutton. Also complaining of chest pain. Denies shortness of breath. No other aggravating or relieving factors. Denies any other associated symptom Allergies: Coded Allergies: AMPICILLIN (Verified Allergy, Unknown, 08/03/16) KETOROLAC (Verified Allergy, Unknown, 08/03/16) MORPHINE (Verified Allergy, Unknown, 08/03/16) PHENYTOIN (Verified Allergy, Unknown, 08/03/16) Patient History Past Medical History: HTN, asthma, seizures, other - sickle cell Past Surgical History: none Pertinent Family History: none Social History: Denies: smoking, alcohol use, drug use Immunizations: UTD Reviewed Nursing Documentation: PMH: Agreed, PSxH: Agreed Nursing Documentation-PMH Past Medical History: No History, Except For Hx Cardiac Problems: Yes - sickle cell Hx Hypertension: Yes Hx Asthma: Yes Hx COPD: Yes Hx Cancer: No Hx Gastrointestinal Problems: No Hx Neurological Problems: Yes Hx Seizures: Yes Review of Systems All Other Systems: negative except mentioned in HPI Physical Exam Vital Signs Date Time Temp Pulse Resp B/P (MAP) Pulse Ox O2 Delivery O2 Flow Rate FiO2 08/25/17 18:39 97.7 87 18 158/93 96 Nasal Cannula 6.0 Sp02 EP Interpretation: reviewed, normal General Appearance: no apparent distress, alert, GCS 15, non-toxic Head: normocephalic, atraumatic Eyes: bilateral eye normal inspection, bilateral eye PERRL ENT: hearing grossly normal, normal pharynx, no angioedema, normal voice Neck: full range of motion, supple/symm/no masses Respiratory: chest non-tender, lungs clear, normal breath sounds, speaking full sentences Cardiovascular #1: regular rate, rhythm, no edema Cardiovascular #2: 2+ carotid (R), 2+ carotid (L), 2+ radial (R), 2+ radial (L) , 2+ dorsalis pedis (R), 2+ dorsalis pedis (L) Gastrointestinal: normal bowel sounds, non tender, soft, non-distended, no guarding, no rebound Rectal: deferred Genitourinary: normal inspection, no CVA tenderness Musculoskeletal: back normal, gait/station normal, normal range of motion, non- tender Neurologic: alert, oriented x3, responsive, motor strength/tone normal, sensory intact, speech normal Psychiatric: judgement/insight normal, memory normal, mood/affect normal, no suicidal/homicidal ideation Reflexes: 3+ bicep (R), 3+ bicep (L), 3+ tricep (R), 3+ tricep (L), 3+ knee (R) , 3+ knee (L) Skin: normal color, no rash, warm/dry, well hydrated Lymphatic: no adenopathy Medical Decision Making Diagnostic Impression: Primary Impression: Acute chest syndrome due to sickle cell crisis Additional Impression: Pneumonia Qualified Codes: J18.9 - Pneumonia, unspecified organism ER Course Hospital Course 41-year-old M presenting to ED with cough, chest pain, body aches. h/o sickle cell disease Differential diagnoses include: Pneumonia, CHF exacerbation, pneumothorax, fluid overload Clinical course Patient placed on stretcher. On monitor tech. After initial history and physical, I ordered labs, IVFs, EKG, CXR, pain meds Labs -leukocytosis noted, hemoglobin/hematocrit stable, electrolytes ok, LDH elevated, retic count ok CXR - bilateral infiltrates EKG - NSR, no acute ischemic changes interpreted by me Pain improved after medications. Antibiotics given. Case discussed with Dr. Marco Dutton. asked that we admit to Dr Mckenna Case discussed with Dr. Mckenna and he agreed to the patient to his service for further care and support I feel this is a highly complex case requiring extensive working including EKG/ Rhythm strip, Xray/CT/US, Blood/urine lab work, repeat exams while in ED, and administration of strong opiates/narcotics for pain control, admission to hospital or close patient follow up. Diagnosis - pneumonia, acute chest syndrome Patient admitted to floor in serious condition Labs Test 08/25/17 19:50 08/25/17 21:20 White Blood Count 13.8 K/UL (4.8-10.8) Red Blood Count 3.29 M/UL (4.70-6.10) Hemoglobin 10.1 G/DL (14.2-18.0) Hematocrit 31.5 % (42.0-52.0) Mean Corpuscular Volume 96 FL (80-99) Mean Corpuscular Hemoglobin 30.8 PG (27.0-31.0) Mean Corpuscular Hemoglobin Concent 32.2 G/DL (32.0-36.0) Red Cell Distribution Width 16.5 % (11.6-14.8) Platelet Count 387 K/UL (150-450) Mean Platelet Volume 6.7 FL (6.5-10.1) Neutrophils (%) (Auto) 67.1 % (45.0-75.0) Lymphocytes (%) (Auto) 16.0 % (20.0-45.0) Monocytes (%) (Auto) 9.9 % (1.0-10.0) Eosinophils (%) (Auto) 3.5 % (0.0-3.0) Basophils (%) (Auto) 3.4 % (0.0-2.0) Reticulocyte Count 1.9 % (0.0-2.0) Prothrombin Time 12.1 SEC (9.30-11.50) Prothromb Time International Ratio 1.2 (0.9-1.1) Activated Partial Thromboplast Time 99 SEC (23-33) Sodium Level 138 MMOL/L (136-145) Potassium Level 4.7 MMOL/L (3.5-5.1) Chloride Level 105 MMOL/L (98-107) Carbon Dioxide Level 32 MMOL/L (21-32) Anion Gap 1 mmol/L (5-15) Blood Urea Nitrogen 25 mg/dL (7-18) Creatinine 0.8 MG/DL (0.55-1.30) Estimat Glomerular Filtration Rate > 60 mL/min (>60) Glucose Level 91 MG/DL (74-106) Lactic Acid Level 0.30 mmol/L (0.66-2.22) Calcium Level 9.7 MG/DL (8.5-10.1) Total Bilirubin 0.8 MG/DL (0.2-1.0) Aspartate Amino Transf (AST/SGOT) 56 U/L (15-37) Alanine Aminotransferase (ALT/SGPT) 56 U/L (12-78) Alkaline Phosphatase 151 U/L (46-116) Lactate Dehydrogenase 534 U/L (81-234) Total Creatine Kinase 23 U/L (26-308) Creatine Kinase MB 1.0 NG/ML (0.0-3.6) Creatine Kinase MB Relative Index 4.3 Troponin I 0.000 ng/mL (0.000-0.056) Pro-B-Type Natriuretic Peptide 61 pg/mL (0-125) Total Protein 6.8 G/DL (6.4-8.2) Albumin 3.3 G/DL (3.4-5.0) Globulin 3.5 g/dL Albumin/Globulin Ratio 0.9 (1.0-2.7) EKG Diagnostic Results Rate: normal Rhythm: NSR ST Segments: no acute changes ASA given to the pt in ED: No Rhythm Strip Diag. Results EP Interpretation: yes Rhythm: NSR, no PVC's, no ectopy Chest X-Ray Diagnostic Results Chest X-Ray Diagnostic Results : Chest X-Ray Ordered: Yes # of Views/Limited/Complete: 1 View Indication: Chest Pain EP Interpretation: Yes Interpretation: no pneumothorax, other - bialteral interstitial changes Impression: Other - pneumonia Electronically Signed by: Electronically signed by Andrés Yoon MD Last Vital Signs Date Time Temp Pulse Resp B/P (MAP) Pulse Ox O2 Delivery O2 Flow Rate FiO2 08/25/17 18:39 97.7 87 18 158/93 96 Nasal Cannula 6.0 Status: improved Disposition: ADMITTED INPATIENT Condition: Serious Referrals: NOT CHOSEN EITAN/,REFERRING (PCP) ANDRÉS YOON M.D. Aug 25, 2017 23:21
[2017-08-25 23:36] VITALS: BP 110/63
--- NOTE | 2017-08-25 23:45 | History and Physical ---
History of Present Illness General Date patient seen: Aug 25, 2017 Reason for Hospitalization: Purulent bronchitis fever Present Illness HPI 41-year-old male with pmhx sickle cell anemia presents to [facility] Emergency room with complaints of cough and body pain starting yesterday. Pain as throbbing, 10 out of 10, nonradiating. Patient admits to a cough with productive greenish sputum. Denies fevers or chills. Denies shortness of breath. No other aggravating or relieving factors. Denies any other associated symptom Allergies: Coded Allergies: PENTAMIDINE ISETHIONATE (Verified Allergy, Severe, palpitations, 08/27/17) AMPICILLIN (Verified Allergy, Unknown, 08/03/16) KETOROLAC (Verified Allergy, Unknown, 08/03/16) MORPHINE (Verified Allergy, Unknown, 08/03/16) PHENYTOIN (Verified Allergy, Unknown, 08/03/16) Medication History Scheduled Folic Acid* (Folic Acid*), 1 MG ORAL DAILY Gabapentin* (Gabapentin*), 500 MG ORAL THREE TIMES A DAY Hydromorphone HCl (Dilaudid), 12 MG ORAL EVERY 4 HOURS, (Reported) Hydroxyurea* (Hydrea*), 500 MG PO BID Methadone Hcl* (Methadone*), 50 MG PO Q6HR, (Reported) Phenobarbital* (Phenobarbital*), 30 MG ORAL THREE TIMES A DAY, (Reported) Rivaroxaban (Xarelto), 15 MG ORAL Q12HR Scheduled PRN Diphenhydramine HCl (Benadryl), 50 MG PO Q4HR PRN for Itching, (Reported) Patient History Healthcare decision maker Resuscitation status Advanced Directive on File Past Medical/Surgical History Past Medical/Surgical History: (1) Seizure disorder (2) Sickle cell crisis (3) Sickle cell disease (4) Pulmonary HTN (5) severe diastolic heart disease (6) Uncontrolled seizures (7) Intractable pain (8) Purulent bronchitis (9) Dyspnea (10) Leukocytosis (11) Pneumonia (12) Interstitial lung disease (13) Avascular necrosis of femur head, right (14) Avascular necrosis of femur head, left (15) Acute deep vein thrombosis (DVT) of both lower extremities Family History Family History: Patient reports no known family medical history. Review of Systems Constitutional: Reports: malaise, weakness Respiratory: Reports: cough, sputum Physical Exam General Appearance: moderate distress Lines, tubes and drains: peripheral HEENT: normocephalic, atraumatic, anicteric, PERRL Neck: non-tender, normal alignment, supple, normal inspection Respiratory/Chest: chest wall non-tender, normal breath sounds, no respiratory distress, no accessory muscle use Breasts: no masses Cardiovascular/Chest: normal peripheral pulses, normal rate, regular rhythm, no JVD Abdomen: normal bowel sounds, non tender, soft, no organomegaly, no mass Genitourinary/Rectal: normal genital exam, normal rectal exam Extremities: normal range of motion, non-tender, normal inspection, no calf tenderness, normal capillary refill Skin Exam: normal pigmentation, warm/dry 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, no motor/sensory deficits Last 24 Hour Vital Signs Date Time Temp Pulse Resp B/P (MAP) Pulse Ox O2 Delivery O2 Flow Rate FiO2 08/25/17 23:36 97.8 79 18 110/63 98 Nasal Cannula 6.0 08/25/17 18:39 97.7 87 18 158/93 96 Nasal Cannula 6.0 Laboratory Tests Test 08/25/17 19:50 08/25/17 21:20 White Blood Count 13.8 K/UL (4.8-10.8) H Red Blood Count 3.29 M/UL (4.70-6.10) L Hemoglobin 10.1 G/DL (14.2-18.0) L Hematocrit 31.5 % (42.0-52.0) L Mean Corpuscular Volume 96 FL (80-99) Mean Corpuscular Hemoglobin 30.8 PG (27.0-31.0) Mean Corpuscular Hemoglobin Concent 32.2 G/DL (32.0-36.0) Red Cell Distribution Width 16.5 % (11.6-14.8) H Platelet Count 387 K/UL (150-450) Mean Platelet Volume 6.7 FL (6.5-10.1) Neutrophils (%) (Auto) 67.1 % (45.0-75.0) Lymphocytes (%) (Auto) 16.0 % (20.0-45.0) L Monocytes (%) (Auto) 9.9 % (1.0-10.0) Eosinophils (%) (Auto) 3.5 % (0.0-3.0) H Basophils (%) (Auto) 3.4 % (0.0-2.0) H Reticulocyte Count 1.9 % (0.0-2.0) Prothrombin Time 12.1 SEC (9.30-11.50) H Prothromb Time International Ratio 1.2 (0.9-1.1) H Activated Partial Thromboplast Time 99 SEC (23-33) H Sodium Level 138 MMOL/L (136-145) Potassium Level 4.7 MMOL/L (3.5-5.1) Chloride Level 105 MMOL/L (98-107) Carbon Dioxide Level 32 MMOL/L (21-32) Anion Gap 1 mmol/L (5-15) L Blood Urea Nitrogen 25 mg/dL (7-18) H Creatinine 0.8 MG/DL (0.55-1.30) Estimat Glomerular Filtration Rate > 60 mL/min (>60) Glucose Level 91 MG/DL (74-106) Lactic Acid Level 0.30 mmol/L (0.66-2.22) L Calcium Level 9.7 MG/DL (8.5-10.1) Total Bilirubin 0.8 MG/DL (0.2-1.0) Aspartate Amino Transf (AST/SGOT) 56 U/L (15-37) H Alanine Aminotransferase (ALT/SGPT) 56 U/L (12-78) Alkaline Phosphatase 151 U/L (46-116) H Lactate Dehydrogenase 534 U/L (81-234) H Total Creatine Kinase 23 U/L (26-308) L Creatine Kinase MB 1.0 NG/ML (0.0-3.6) Creatine Kinase MB Relative Index 4.3 Troponin I 0.000 ng/mL (0.000-0.056) Pro-B-Type Natriuretic Peptide 61 pg/mL (0-125) Total Protein 6.8 G/DL (6.4-8.2) Albumin 3.3 G/DL (3.4-5.0) L Globulin 3.5 g/dL Albumin/Globulin Ratio 0.9 (1.0-2.7) L Urine Color Randi Urine Appearance Clear Urine pH 6 (4.5-8.0) Urine Specific [place] 1.010 (1.005-1.035) Urine Protein 2+ (NEGATIVE) H Urine Glucose (UA) Negative (NEGATIVE) Urine Ketones Negative (NEGATIVE) Urine Occult Blood Negative (NEGATIVE) Urine Nitrite Negative (NEGATIVE) Urine Bilirubin Negative (NEGATIVE) Urine Ictotest Negative Urine Urobilinogen Normal MG/DL (0.0-1.0) Urine Leukocyte Esterase Negative (NEGATIVE) Urine RBC 0-2 /HPF (0 - 0) H Urine WBC 0-2 /HPF (0 - 0) Urine Squamous Epithelial Cells Occasional /LPF Urine Bacteria Occasional /HPF (NONE) Height (Feet): 5 Height (Inches): 11.00 Weight (Pounds): 166 Medications Current Medications Medications (Trade) Dose Ordered Sig/Anthony Route PRN Reason Start Time Stop Time Status Last Admin Dose Admin Acetaminophen (Tylenol) 650 mg Q4H PRN ORAL fever 08/25/17 22:30 09/24/17 22:29 Al Hydroxide/Mg Hydroxide (Mylanta II) 30 ml Q6H PRN ORAL dyspepsia 08/25/17 22:30 09/24/17 22:29 Dextrose (Dextrose 50%) STAT PRN IV Hypoglycemia 08/25/17 22:30 09/24/17 22:29 Gabapentin (Neurontin) 500 mg THREE TIMES A DAY ORAL 08/26/17 09:00 09/25/17 08:59 Heparin Sodium (Porcine) (Heparin 5000 units/ml) 5,000 units EVERY 12 HOURS SUBQ 08/26/17 09:00 09/25/17 08:59 Hydromorphone HCl (Dilaudid) 2 mg EVERY 3 HOURS PRN IV pain 4-6 08/25/17 22:30 09/01/17 22:29 Hydromorphone HCl (Dilaudid) 3 mg Q3H PRN IVP For Pain 7-10 08/25/17 22:30 09/01/17 22:29 Hydromorphone HCl (Dilaudid) 12 mg EVERY 4 HOURS ORAL 08/26/17 01:00 09/02/17 00:59 Hydroxyurea (Hydrea) 500 mg BID ORAL 08/26/17 09:00 08/31/17 08:59 Lorazepam (Ativan 2mg/ml 1ml) 0.5 mg Q4H PRN IV For Anxiety 08/25/17 22:30 09/01/17 22:29 Methadone HCl (Methadone HCl) 50 mg Q6HR ORAL 08/26/17 00:00 09/02/17 00:00 UNV Ondansetron HCl (Zofran) 4 mg Q6H PRN IVP Nausea & Vomiting 08/25/17 22:30 09/24/17 22:29 Polyethylene Glycol (Miralax) 17 gm HSPRN PRN ORAL Constipation 08/25/17 22:30 09/24/17 22:29 Sodium Chloride 1,000 ml @ 75 mls/hr [id number] IV 08/25/17 22:30 09/24/17 22:29 Zolpidem Tartrate (Ambien) 5 mg HSPRN PRN ORAL Insomnia 08/25/17 22:30 09/01/17 22:29 Assessment/Plan Problem List: (1) severe diastolic heart disease (2) Sickle cell crisis ICD Codes: D57.00 - Hb-SS disease with crisis, unspecified SNOMED: 085348659 (3) Pulmonary HTN ICD Codes: I27.2 - Other secondary pulmonary hypertension SNOMED: 25255163 Status: stable, unchanged Assessment/Plan IV fluids Broad spectrum antibiotics Pain control Ccheck LDH Echo Venous doppler of legs KENNEDY MOORE Aug 25, 2017 23:45
[2017-08-26] MEDS: HYDROmorphone 4mg tab ORAL SCH ×6 (01:08→21:26)
[2017-08-26] MEDS: DiphenhydrAMINE 50mg/ml Inj IVP PRN ×3 (06:50→20:46)
[2017-08-26 08:14] LABS: BASOPHILS % (AUTO) 1.1 % (0.0-2.0); EOSINOPHILS % (AUTO) 7.2 % (0.0-3.0); HEMATOCRIT 29.3 % (42.0-52.0); HEMOGLOBIN 9.7 G/DL (14.2-18.0); LYMPHOCYTES % (AUTO) 34.7 % (20.0-45.0); MEAN CORPUSCULAR VOLUME 96 FL (80-99); MONOCYTES % (AUTO) 4.3 % (1.0-10.0); NEUTROPHILS % (AUTO) 52.8 % (45.0-75.0); PLATELET COUNT 398 K/UL (150-450); RED BLOOD COUNT 3.06 M/UL (4.70-6.10); RED CELL DISTRIBUTION WIDTH 16.6 % (11.6-14.8); WHITE BLOOD COUNT 12.4 K/UL (4.8-10.8)
[2017-08-26 08:30] VITALS: BP 111/67
[2017-08-26 08:43] LABS: ALANINE AMINOTRANSFERASE 59 U/L (12-78); ALBUMIN 3.1 G/DL (3.4-5.0); ALBUMIN/GLOBULIN RATIO 0.9 (1.0-2.7); ALKALINE PHOSPHATASE 155 U/L (46-116); ANION GAP 2 mmol/L (5-15); ASPARTATE AMINO TRANSFERASE 59 U/L (15-37); BILIRUBIN,TOTAL 0.7 MG/DL (0.2-1.0); BLOOD UREA NITROGEN 22 mg/dL (7-18); CALCIUM 9.6 MG/DL (8.5-10.1); CARBON DIOXIDE 33 MMOL/L (21-32); CHLORIDE 105 MMOL/L (98-107); CREATININE 0.8 MG/DL (0.55-1.30); LACTATE DEHYDROGENASE 472 U/L (81-234); POTASSIUM 4.3 MMOL/L (3.5-5.1); SODIUM 140 MMOL/L (136-145)
[2017-08-26] MEDS: Hydroxyurea 500mg cap ORAL SCH ×2 (09:00→10:20)
[2017-08-26] MEDS: Heparin 5000 units/ml inj SUBQ SCH ×2 (09:00→21:00)
--- NOTE | 2017-08-26 10:14 | Diagnostic Imaging Report ---
Indication: Chest pain Technique: XRAY Chest 1v Comparison: 11/18/2016 Findings: Lung volumes are low. Heart size appears enlarged. Portacatheter in place with its tip in the region of the cavoatrial junction. There is interstitial and patchy bilateral airspace opacities. No large pleural effusion. No pneumothorax. No acute osseous abnormality seen. Impression: Mild cardiomegaly with interstitial and patchy bilateral airspace opacities. Findings may be related to interstitial edema with foci of developing alveolar edema. Superimposed pneumonia not excluded. Clinical correlation and follow-up exam recommended. Study obtained via the emergency department however patient admitted to the hospital at time of dictation of the final report.
--- NOTE | 2017-08-26 11:55 | Pulmonology Progress Note ---
Assessment/Plan Problems: (1) Sickle cell crisis (2) severe diastolic heart disease (3) Pulmonary HTN Assessment/Plan pain management iv fluids check LDH Dr. Dutton to see Subjective ROS Limited/Unobtainable: No Allergies: Coded Allergies: AMPICILLIN (Verified Allergy, Unknown, 08/03/16) KETOROLAC (Verified Allergy, Unknown, 08/03/16) MORPHINE (Verified Allergy, Unknown, 08/03/16) PHENYTOIN (Verified Allergy, Unknown, 08/03/16) Objective Last 24 Hour Vital Signs Date Time Temp Pulse Resp B/P (MAP) Pulse Ox O2 Delivery O2 Flow Rate FiO2 08/26/17 10:51 98.8 08/26/17 08:30 98.8 75 18 111/67 Nasal Cannula 08/26/17 00:05 97.8 79 18 110/63 98 Nasal Cannula 6.0 08/25/17 23:36 97.8 79 18 110/63 98 Nasal Cannula 6.0 08/25/17 18:39 97.7 87 18 158/93 96 Nasal Cannula 6.0 Intake and Output 08/25/17 08/26/17 19:00 07:00 Intake Total 200 ml Output Total 1300 ml Balance -1100 ml Intake Oral 200 ml Output Urine Total 1300 ml Objective General Appearance: cachetic HEENT: normocephalic, atraumatic Respiratory/Chest: chest wall non-tender, normal breath sounds Cardiovascular: normal peripheral pulses, normal rate Abdomen: soft, non tender, no organomegaly Genitourinary: normal external genitalia Extremities: no clubbing Skin: no rash, no lesions 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, no motor/sensory deficits, normal mood/affect Lymphatic: no neck adenopathy Microbiology Date/Time Source Procedure Growth Status 08/25/17 23:28 Nasal Nares Influenza Types A,B Antigen (LEANDRO) - Final Complete Laboratory Tests 08/25/17 19:50: White Blood Count 13.8H, Red Blood Count 3.29L, Hemoglobin 10.1L, Hematocrit 31.5L, Mean Corpuscular Volume 96, Mean Corpuscular Hemoglobin 30.8, Mean Corpuscular Hemoglobin Concent 32.2, Red Cell Distribution Width 16.5H, Platelet Count 387, Mean Platelet Volume 6.7, Neutrophils (%) (Auto) 67.1, Lymphocytes (%) (Auto) 16.0L, Monocytes (%) (Auto) 9.9, Eosinophils (%) (Auto) 3.5H, Basophils (%) (Auto) 3.4H, Reticulocyte Count 1.9, Prothrombin Time 12.1H , Prothromb Time International Ratio 1.2H, Activated Partial Thromboplast Time 99H, Sodium Level 138, Potassium Level 4.7, Chloride Level 105, Carbon Dioxide Level 32, Anion Gap 1L, Blood Urea Nitrogen 25H, Creatinine 0.8, Estimat Glomerular Filtration Rate > 60, Glucose Level 91, Lactic Acid Level 0.30L, Calcium Level 9.7, Total Bilirubin 0.8, Aspartate Amino Transf (AST/SGOT) 56H, Alanine Aminotransferase (ALT/SGPT) 56, Alkaline Phosphatase 151H, Lactate Dehydrogenase 534H, Total Creatine Kinase 23L, Creatine Kinase MB 1.0, Creatine Kinase MB Relative Index 4.3, Troponin I 0.000, Pro-B-Type Natriuretic Peptide 61, Total Protein 6.8, Albumin 3.3L, Globulin 3.5, Albumin/Globulin Ratio 0.9L 08/25/17 21:20: Urine Color Randi, Urine Appearance Clear, Urine pH 6, Urine Specific [place] 1.010, Urine Protein 2+H, Urine Glucose (UA) Negative, Urine Ketones Negative, Urine Occult Blood Negative, Urine Nitrite Negative, Urine Bilirubin Negative, Urine Ictotest Negative, Urine Urobilinogen Normal, Urine Leukocyte Esterase Negative, Urine RBC 0-2H, Urine WBC 0-2, Urine Squamous Epithelial Cells Occasional, Urine Bacteria Occasional 08/26/17 07:05: White Blood Count 12.4H, Red Blood Count 3.06L, Hemoglobin 9.7L, Hematocrit 29.3L, Mean Corpuscular Volume 96, Mean Corpuscular Hemoglobin 31.8H, Mean Corpuscular Hemoglobin Concent 33.1, Red Cell Distribution Width 16.6H, Platelet Count 398, Mean Platelet Volume 7.2, Neutrophils (%) (Auto) 52.8, Lymphocytes (%) (Auto) 34.7, Monocytes (%) (Auto) 4.3, Eosinophils (%) (Auto) 7.2H, Basophils (%) (Auto) 1.1, Sodium Level 140, Potassium Level 4.3, Chloride Level 105, Carbon Dioxide Level 33H, Anion Gap 2L, Blood Urea Nitrogen 22H, Creatinine 0.8, Estimat Glomerular Filtration Rate > 60, Glucose Level 96, Calcium Level 9.6, Total Bilirubin 0.7, Aspartate Amino Transf (AST/SGOT) 59H, Alanine Aminotransferase (ALT/SGPT) 59, Alkaline Phosphatase 155H, Lactate Dehydrogenase 472H, Total Protein 6.4, Albumin 3.1L, Globulin 3.3, Albumin/ Globulin Ratio 0.9L Current Medications Medications (Trade) Dose Ordered Sig/Anthony Route PRN Reason Start Time Stop Time Status Last Admin Dose Admin Acetaminophen (Tylenol) 650 mg Q4H PRN ORAL fever 08/25/17 22:30 09/24/17 22:29 Al Hydroxide/Mg Hydroxide (Mylanta II) 30 ml Q6H PRN ORAL dyspepsia 08/25/17 22:30 09/24/17 22:29 Dextrose (Dextrose 50%) STAT PRN IV Hypoglycemia 08/25/17 22:30 09/24/17 22:29 Diphenhydramine HCl (Benadryl) 50 mg Q6H PRN IVP Itching 08/26/17 06:30 09/25/17 06:29 08/26/17 06:50 Gabapentin (Neurontin) 500 mg THREE TIMES A DAY ORAL 08/26/17 09:00 09/25/17 08:59 08/26/17 09:51 Heparin Sodium (Porcine) (Heparin 5000 units/ml) 5,000 units EVERY 12 HOURS SUBQ 08/26/17 09:00 09/25/17 08:59 Hydromorphone HCl (Dilaudid) 2 mg EVERY 3 HOURS PRN IV pain 4-6 08/25/17 22:30 09/01/17 22:29 Hydromorphone HCl (Dilaudid) 3 mg Q3H PRN IVP For Pain 7-10 08/25/17 22:30 09/01/17 22:29 08/26/17 06:07 Hydromorphone HCl (Dilaudid) 12 mg EVERY 4 HOURS ORAL 08/26/17 01:00 09/02/17 00:59 08/26/17 09:52 Hydroxyurea (Hydrea) 500 mg BID ORAL 08/26/17 09:00 08/31/17 08:59 08/26/17 10:20 Lorazepam (Ativan 2mg/ml 1ml) 0.5 mg Q4H PRN IV For Anxiety 08/25/17 22:30 09/01/17 22:29 Methadone HCl (Methadone HCl) 50 mg Q6HR ORAL 08/26/17 00:00 09/02/17 00:00 UNV Ondansetron HCl (Zofran) 4 mg Q6H PRN IVP Nausea & Vomiting 08/25/17 22:30 09/24/17 22:29 Polyethylene Glycol (Miralax) 17 gm HSPRN PRN ORAL Constipation 08/25/17 22:30 09/24/17 22:29 Sodium Chloride 1,000 ml @ 75 mls/hr [id number] IV 08/25/17 22:30 09/24/17 22:29 08/26/17 01:09 Zolpidem Tartrate (Ambien) 5 mg HSPRN PRN ORAL Insomnia 08/25/17 22:30 09/01/17 22:29 08/26/17 01:48 KENNEDY MOORE Aug 26, 2017 11:55
[2017-08-26 12:50] VITALS: BP 113/69
[2017-08-26 16:00] VITALS: BP 104/74
[2017-08-26 21:00] VITALS: BP 138/64
[2017-08-26] MEDS: Dyna-Hex 2% Top Sol 2oz TOPIC SCH (23:45)
[2017-08-27] VITALS: BP 126/89
[2017-08-27] MEDS: HYDROmorphone 4mg tab ORAL SCH ×3 (01:38→09:00)
[2017-08-27] MEDS: DiphenhydrAMINE 50mg/ml Inj IVP PRN ×4 (02:53→21:35)
[2017-08-27 04:00] VITALS: BP 139/86
[2017-08-27 06:45] LABS: EOSINOPHILS % (AUTO) 8.6 % (0.0-3.0); HEMATOCRIT 30.1 % (42.0-52.0); HEMOGLOBIN 9.7 G/DL (14.2-18.0); LYMPHOCYTES % (AUTO) 30.4 % (20.0-45.0); MEAN CORPUSCULAR VOLUME 95 FL (80-99); MONOCYTES % (AUTO) 5.7 % (1.0-10.0); NEUTROPHILS % (AUTO) 54.4 % (45.0-75.0); PLATELET COUNT 441 K/UL (150-450); RED BLOOD COUNT 3.16 M/UL (4.70-6.10); RED CELL DISTRIBUTION WIDTH 16.1 % (11.6-14.8); WHITE BLOOD COUNT 13.3 K/UL (4.8-10.8)
[2017-08-27 07:13] LABS: INR 1.1 (0.9-1.1)
[2017-08-27 08:00] VITALS: BP 112/69
[2017-08-27 08:15] LABS: % IRON SATURATION 86 % (15-50); IRON 177 ug/dL (50-175); TOTAL IRON BINDING CAPACITY 205 ug/dL (250-450)
[2017-08-27] MEDS: Heparin 5000 units/ml inj SUBQ SCH ×2 (09:00→21:00)
[2017-08-27] MEDS: Hydroxyurea 500mg cap ORAL SCH ×2 (09:09→18:21)
--- NOTE | 2017-08-27 10:45 | Pulmonology Progress Note ---
Assessment/Plan Problems: (1) Sickle cell crisis (2) severe diastolic heart disease (3) Pulmonary HTN Assessment/Plan pain management iv fluids check LDH Dr. Dutton to see temp of 99.7. ID evaluaiton Subjective ROS Limited/Unobtainable: No Allergies: Coded Allergies: AMPICILLIN (Verified Allergy, Unknown, 08/03/16) KETOROLAC (Verified Allergy, Unknown, 08/03/16) MORPHINE (Verified Allergy, Unknown, 08/03/16) PHENYTOIN (Verified Allergy, Unknown, 08/03/16) Objective Last 24 Hour Vital Signs Date Time Temp Pulse Resp B/P (MAP) Pulse Ox O2 Delivery O2 Flow Rate FiO2 08/27/17 09:50 98.2 08/27/17 08:00 98.2 69 20 112/69 100 08/27/17 04:00 99.7 73 20 139/86 95 08/27/17 04:00 Nasal Cannula 6.0 08/27/17 00:00 98.3 77 21 126/89 98 08/27/17 00:00 Nasal Cannula 6.0 08/26/17 21:00 98.0 73 21 138/64 100 08/26/17 20:00 Nasal Cannula 6.0 08/26/17 18:32 97.9 08/26/17 16:01 Nasal Cannula 6.0 08/26/17 16:00 97.9 84 20 104/74 96 08/26/17 12:51 98 Nasal Cannula 6.0 08/26/17 12:50 98.0 71 17 113/69 98 Room Air Intake and Output 08/26/17 08/27/17 19:00 07:00 Intake Total 1440 ml 825 ml Output Total 2150 ml 700 ml Balance -710 ml 125 ml Intake Oral 540 ml IV Total 900 ml 825 ml Output Urine Total 2150 ml 700 ml # Voids 1 Objective General Appearance: cachetic HEENT: normocephalic, atraumatic Respiratory/Chest: chest wall non-tender, normal breath sounds Cardiovascular: normal peripheral pulses, normal rate Abdomen: soft, non tender, no organomegaly Genitourinary: normal external genitalia Extremities: no clubbing Skin: no rash, no lesions 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, no motor/sensory deficits, normal mood/affect Lymphatic: no neck adenopathy Microbiology Date/Time Source Procedure Growth Status 08/25/17 20:10 Blood Blood Culture - Preliminary NO GROWTH AFTER 24 HOURS Resulted 08/25/17 19:50 Blood Blood Culture - Preliminary NO GROWTH AFTER 24 HOURS Resulted 08/25/17 23:28 Nasal Nares Influenza Types A,B Antigen (LEANDRO) - Final Complete Laboratory Tests 08/27/17 06:24: White Blood Count 13.3H, Red Blood Count 3.16L, Hemoglobin 9.7L, Hematocrit 30.1L, Mean Corpuscular Volume 95, Mean Corpuscular Hemoglobin 30.6, Mean Corpuscular Hemoglobin Concent 32.1, Red Cell Distribution Width 16.1H, Platelet Count 441, Mean Platelet Volume 7.0, Neutrophils (%) (Auto) 54.4, Lymphocytes (%) (Auto) 30.4, Monocytes (%) (Auto) 5.7, Eosinophils (%) (Auto) 8.6H, Basophils (%) (Auto) 1.0, Neutrophils % (Manual) [Pending], Lymphocytes % (Manual) [Pending], Platelet Estimate [Pending], Platelet Morphology [Pending], Erythrocyte Sedimentation Rate 40H, Reticulocyte Count [Pending], Prothrombin Time 11.1, Prothromb Time International Ratio 1.1, Activated Partial Thromboplast Time 31, Iron Level 177H, Total Iron Binding Capacity 205L, Percent Iron Saturation 86H, Unsaturated Iron Binding 28L, Lactate Dehydrogenase 490H, Vitamin B12 Level 595, Folate 11.5 Current Medications Medications (Trade) Dose Ordered Sig/Anthony Route PRN Reason Start Time Stop Time Status Last Admin Dose Admin Acetaminophen (Tylenol) 650 mg Q4H PRN ORAL fever 08/25/17 22:30 09/24/17 22:29 Al Hydroxide/Mg Hydroxide (Mylanta II) 30 ml Q6H PRN ORAL dyspepsia 08/25/17 22:30 09/24/17 22:29 Chlorhexidine Gluconate (Val-Hex 2%) 1 applic 2000 TOPIC 08/26/17 20:00 09/25/17 19:59 08/26/17 23:45 Dextrose (Dextrose 50%) STAT PRN IV Hypoglycemia 08/25/17 22:30 09/24/17 22:29 Diphenhydramine HCl (Benadryl) 50 mg Q6H PRN IVP Itching 08/26/17 06:30 09/25/17 06:29 08/27/17 02:53 Gabapentin (Neurontin) 500 mg THREE TIMES A DAY ORAL 08/26/17 09:00 09/25/17 08:59 08/27/17 09:07 Heparin Sodium (Porcine) (Heparin 5000 units/ml) 5,000 units EVERY 12 HOURS SUBQ 08/26/17 09:00 09/25/17 08:59 Hydromorphone HCl (Dilaudid) 2 mg EVERY 3 HOURS PRN IV pain 4-6 08/25/17 22:30 09/01/17 22:29 Hydromorphone HCl (Dilaudid) 3 mg Q3H PRN IVP For Pain 7-10 08/25/17 22:30 09/01/17 22:29 08/27/17 09:20 Hydromorphone HCl (Dilaudid) 12 mg EVERY 4 HOURS ORAL 08/26/17 01:00 09/02/17 00:59 08/27/17 04:59 Hydroxyurea (Hydrea) 500 mg BID ORAL 08/26/17 09:00 08/31/17 08:59 08/27/17 09:09 Lorazepam (Ativan 2mg/ml 1ml) 0.5 mg Q4H PRN IV For Anxiety 08/25/17 22:30 09/01/17 22:29 Methadone HCl (Methadone HCl) 50 mg Q6HR ORAL 08/26/17 13:00 09/02/17 12:59 08/27/17 06:13 Ondansetron HCl (Zofran) 4 mg Q6H PRN IVP Nausea & Vomiting 08/25/17 22:30 09/24/17 22:29 Polyethylene Glycol (Miralax) 17 gm HSPRN PRN ORAL Constipation 08/25/17 22:30 09/24/17 22:29 Sodium Chloride 1,000 ml @ 75 mls/hr [id number] IV 08/25/17 22:30 09/24/17 22:29 08/27/17 01:37 Zolpidem Tartrate (Ambien) 5 mg HSPRN PRN ORAL Insomnia 08/25/17 22:30 09/01/17 22:29 08/26/17 01:48 KENNEDY MOORE Aug 27, 2017 10:45
--- NOTE | 2017-08-27 11:10 | Consultation ---
Consult Note Consult Note ID DIC# [id number] RICHARD CHENEY M.D. Aug 27, 2017 11:10
[2017-08-27 11:40] VITALS: BP 112/73
--- NOTE | 2017-08-27 12:21 | General Progress Note ---
Assessment/Plan Assessment/Plan (1) Intractable pain (2) Avascular necrosis of femur head, left (3) Sickle cell crisis (4) Avascular necrosis of femur head, right Patient will be continue methadone and Dilaudid Parameters will be started to hold opioids for oversedation or SBP<90 or DBP<60 or RR<12 Pt was d/w Dr. Perera and he concurred. Thank you for the courtesy of this consultation Subjective Date patient seen: Aug 27, 2017 Time patient seen: 10:00 - am Allergies: Coded Allergies: AMPICILLIN (Verified Allergy, Unknown, 08/03/16) KETOROLAC (Verified Allergy, Unknown, 08/03/16) MORPHINE (Verified Allergy, Unknown, 08/03/16) PHENYTOIN (Verified Allergy, Unknown, 08/03/16) Subjective Constitutional: Reports: chills HEENT: Denies: blurred vision, double vision, ear discharge, ear pain, eye pain , mouth pain, mouth swelling, nose congestion, nose pain, tearing, throat pain, throat swelling Cardiovascular: Denies: chest pain, edema, irregular heart rate, lightheadedness, palpitations, syncope Respiratory: Denies: SOB at rest, SOB with excertion, cough, orthopnea, shortness of breath, sputum, stridor, wheezing Gastrointestinal/Abdominal: Denies: abdomen distended, abdominal pain, black stools, blood in stool, constipated, diarrhea, difficulty swallowing, nausea, poor appetite, poor fluid intake, rectal bleeding, tarry stools, vomiting Genitourinary: Denies: burning, discharge, flank pain, frequency, hematuria, incontinence, pain, urgency 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: Denies: anxiety, depressed, emotional problems, headache, numbness, paresthesia, pre-existing deficit, seizure, tingling, tremors, weakness Endocrine: Reports: other, Denies: excessive sweating, flushing, increased hunger, increased thirst, increased urine, intolerance to cold, intolerance to heat, unexplained weight gain, unexplained weight loss Hematologic/Lymphatic: Denies: anemia, easy bleeding, easy bruising Subjective Patient is a known patient from prior admission and now has been admitted under the care of Dr. Perera with sickle cell crisis. Patient has found a Hem/onc Dr. Garcia who has continued his methadone and Dilaudid as an outpt. He has been started on Methadone 50mg Q6H, Dilaudid 2-3mg IV Q3H PRN mod to sev pain and Dilaudid 12mg PO 1 tab Q4H which will be changed to As needed. D/w Nurse. Objective Last 24 Hour Vital Signs Date Time Temp Pulse Resp B/P (MAP) Pulse Ox O2 Delivery O2 Flow Rate FiO2 08/27/17 11:40 97.6 71 20 112/73 99 08/27/17 09:50 98.2 08/27/17 08:00 98.2 69 20 112/69 100 08/27/17 04:00 99.7 73 20 139/86 95 08/27/17 04:00 Nasal Cannula 6.0 08/27/17 00:00 98.3 77 21 126/89 98 08/27/17 00:00 Nasal Cannula 6.0 08/26/17 21:00 98.0 73 21 138/64 100 08/26/17 20:00 Nasal Cannula 6.0 08/26/17 18:32 97.9 08/26/17 16:01 Nasal Cannula 6.0 08/26/17 16:00 97.9 84 20 104/74 96 08/26/17 12:51 98 Nasal Cannula 6.0 08/26/17 12:50 98.0 71 17 113/69 98 Room Air Intake and Output 08/26/17 08/27/17 19:00 07:00 Intake Total 1440 ml 825 ml Output Total 2150 ml 700 ml Balance -710 ml 125 ml Intake Oral 540 ml IV Total 900 ml 825 ml Output Urine Total 2150 ml 700 ml # Voids 1 Laboratory Tests 08/27/17 06:24: White Blood Count 13.3H, Red Blood Count 3.16L, Hemoglobin 9.7L, Hematocrit 30.1L, Mean Corpuscular Volume 95, Mean Corpuscular Hemoglobin 30.6, Mean Corpuscular Hemoglobin Concent 32.1, Red Cell Distribution Width 16.1H, Platelet Count 441, Mean Platelet Volume 7.0, Neutrophils (%) (Auto) 54.4, Lymphocytes (%) (Auto) 30.4, Monocytes (%) (Auto) 5.7, Eosinophils (%) (Auto) 8.6H, Basophils (%) (Auto) 1.0, Differential Total Cells Counted 100, Neutrophils % (Manual) 56, Lymphocytes % (Manual) 30, Monocytes % (Manual) 6, Eosinophils % (Manual) 8H, Basophils % (Manual) 0, Band Neutrophils 0, Platelet Estimate Adequate, Platelet Morphology Normal, Hypochromasia 2+, Erythrocyte Sedimentation Rate 40H, Reticulocyte Count 1.3, Prothrombin Time 11.1, Prothromb Time International Ratio 1.1, Activated Partial Thromboplast Time 31, Iron Level 177H, Total Iron Binding Capacity 205L, Percent Iron Saturation 86H, Unsaturated Iron Binding 28L, Lactate Dehydrogenase 490H, Vitamin B12 Level 595 , Folate 11.5 Height (Feet): 5 Height (Inches): 11.00 Weight (Pounds): 166 Objective General Appearance: no apparent distress, alert EENT: PERRL/EOMI, normal ENT inspection Neck: non-tender, normal alignment Cardiovascular: normal rate, regular rhythm Respiratory/Chest: decreased breath sounds Abdomen: non tender, soft Edema: no edema noted Arm (L), no edema noted Arm (R), no edema noted Leg (L), no edema noted Leg (R), no edema noted Pedal (L), no edema noted Pedal (R), no edema noted Generalized Neurologic: alert, oriented x 3 Skin: warm/dry ANTIONE PHILLIPS Aug 27, 2017 12:21
[2017-08-27] MEDS: HYDROmorphone 4mg tab ORAL PRN ×2 (14:05→18:20)
--- NOTE | 2017-08-27 15:13 | Cardiology Report ---
APPROVED REPORT EKG Measurement Heart [id number] Normal sinus rhythm T wave abnormality, consider anterior ischemia Abnormal ECG
[2017-08-27 15:48] VITALS: BP 139/86
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
--- NOTE | 2017-08-27 17:30 | Consultation ---
DATE OF CONSULTATION: 08/26/2017 NOTE: POOR AUDIO HEMATOLOGY/ONCOLOGY CONSULTATION CONSULTING PHYSICIAN: Marco Dutton M.D. REQUESTING PHYSICIAN: Hanna Mckenna M.D. REASON FOR CONSULTATION: Evaluation of sickle cell crisis. IDENTIFICATION DATA: Dear Dr. Mckenna, Thank you for the courtesy of this consultation. The patient is a pleasant 41-year-old male, who I have seen multiple times in the past. Past medical history is significant for sickle cell crisis with history of in the past, has been on extraordinary high doses of pain medications including methadone , had elevated sickle cell count, has been on incentive spirometer, history of noncompliance, DVT of the left lower extremity, has been on Xarelto potentially and also has a history of pulmonary embolism. He was on hydroxyurea in the past. He presents to the hospital at this time for sickle cell crisis. Hematology Service was consulted for further evaluation and care. PAST MEDICAL HISTORY: Sickle cell disease/crisis, pulmonary hypertension, and severe diastolic heart failure. MEDICATIONS: Folic acid, hydroxyurea, Dilaudid, methadone, and Xarelto. IMMUNIZATIONS: Up-to-date. ALLERGIES: Ampicillin, , morphine, . SOCIAL HISTORY: Denies any smoking, alcohol, tobacco, or illicit drug use. REVIEW OF SYSTEMS: CONSTITUTIONAL: No fevers or chills, however, he does have some fatigue. SKIN: No rashes, bumps, or itching. HEENT: No headache, hearing or vision changes. BREASTS: No lumps, pain, or discharge. PULMONARY: No cough, sputum, or shortness of breath. GASTROINTESTINAL: No nausea, vomiting, or diarrhea. GENITOURINARY: No dysuria, frequency, or urgency. MUSCULOSKELETAL: No joint swelling, muscle pain, or trauma. PHYSICAL EXAMINATION: VITAL SIGNS: Reviewed. GENERAL: No distress. PULMONARY: Decreased breath sounds. CARDIOVASCULAR: Regular rate. No S3 or S4. ABDOMEN: Soft, nontender, and nondistended. EXTREMITIES: No cyanosis, swelling, or edema. LABORATORY AND DIAGNOSTIC DATA: WBC of 12.4, hemoglobin 9.7, hematocrit 30, and platelet count 298,000. ASSESSMENT AND RECOMMENDATIONS: 1. 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 Current hemoglobin is within normal limits. 2. Deep venous thrombosis of the lower extremity, which was sustained in the right leg and the left leg, bilateral deep venous thrombosis, has been on Xarelto. At this time, to see if his deep venous thrombosis has improved. This has been ordered by Dr. Mckenna. 3. Sickle cell crisis in the past. Continue to monitor recurrence. 4. Pulmonary hypertension. 5. Nausea and vomiting, currently on Zofran on as-needed basis. 6. Coagulopathy due to prior history of Xarelto use. His anticoagulation at this point is currently on heparin subcutaneous. Given his anemia, it is still okay to begin the patient on Xarelto versus a heparin drip. I appreciate the consultation. Marco Dutton M.D. DR: Gonzalo JOB#: [id number] CC:
[2017-08-27 20:00] VITALS: BP 110/77
[2017-08-27] MEDS: Dyna-Hex 2% Top Sol 2oz TOPIC SCH (21:35)
[2017-08-28] VITALS: BP 122/77
--- NOTE | 2017-08-28 00:22 | General Progress Note ---
Assessment/Plan Assessment/Plan 1. 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 --> Current hemoglobin is within normal limits. 2. Deep venous thrombosis of the lower extremity, which was sustained in the right leg and the left leg, --> bilateral deep venous thrombosis, has been on Xarelto. --> INR goal between 2 and 3 4. Pulmonary hypertension. 5. Nausea and vomiting, currently on Zofran on as-needed basis. 6. Coagulopathy due to prior history of Xarelto use. His anticoagulation at this point is currently on heparin subcutaneous. --> Given his anemia, it is still okay to begin the patient on Xarelto versus a heparin drip. Subjective Date patient seen: Aug 27, 2017 Constitutional: Denies: no symptoms, chills, diaphoresis, fever, malaise, weakness, other HEENT: Denies: no symptoms, eye pain, blurred vision, tearing, double vision, ear pain, ear discharge, nose pain, nose congestion, throat pain, throat swelling, mouth pain, mouth swelling, other Cardiovascular: Denies: no symptoms, chest pain, edema, irregular heart rate, lightheadedness, palpitations, syncope, other Respiratory: Denies: no symptoms, cough, orthopnea, shortness of breath, SOB with excertion, SOB at rest, sputum, stridor, wheezing, other Gastrointestinal/Abdominal: Denies: no symptoms, abdomen distended, abdominal pain, black stools, tarry stools, blood in stool, constipated, diarrhea, difficulty swallowing, nausea, poor appetite, poor fluid intake, rectal bleeding , vomiting, other Genitourinary: Denies: no symptoms, burning, discharge, frequency, flank pain, hematuria, incontinence, pain, urgency, other Hematologic/Lymphatic: Reports: anemia Allergies: Coded Allergies: PENTAMIDINE ISETHIONATE (Verified Allergy, Severe, palpitations, 08/27/17) AMPICILLIN (Verified Allergy, Unknown, 08/03/16) KETOROLAC (Verified Allergy, Unknown, 08/03/16) MORPHINE (Verified Allergy, Unknown, 08/03/16) PHENYTOIN (Verified Allergy, Unknown, 08/03/16) Subjective On anticoag. H/H stable. Objective Last 24 Hour Vital Signs Date Time Temp Pulse Resp B/P (MAP) Pulse Ox O2 Delivery O2 Flow Rate FiO2 08/27/17 20:00 97.9 79 20 110/77 100 08/27/17 15:48 97.6 77 20 139/86 97 08/27/17 11:40 97.6 71 20 112/73 99 08/27/17 09:50 98.2 08/27/17 08:00 98.2 69 20 112/69 100 08/27/17 04:00 99.7 73 20 139/86 95 08/27/17 04:00 Nasal Cannula 6.0 Intake and Output 08/27/17 08/28/17 19:00 07:00 Intake Total 795 ml 225 ml Output Total 800 ml Balance -5 ml 225 ml Intake Oral 720 ml IV Total 75 ml 225 ml Output Urine Total 800 ml Laboratory Tests 08/27/17 06:24: White Blood Count 13.3H, Red Blood Count 3.16L, Hemoglobin 9.7L, Hematocrit 30.1L, Mean Corpuscular Volume 95, Mean Corpuscular Hemoglobin 30.6, Mean Corpuscular Hemoglobin Concent 32.1, Red Cell Distribution Width 16.1H, Platelet Count 441, Mean Platelet Volume 7.0, Neutrophils (%) (Auto) 54.4, Lymphocytes (%) (Auto) 30.4, Monocytes (%) (Auto) 5.7, Eosinophils (%) (Auto) 8.6H, Basophils (%) (Auto) 1.0, Differential Total Cells Counted 100, Neutrophils % (Manual) 56, Lymphocytes % (Manual) 30, Monocytes % (Manual) 6, Eosinophils % (Manual) 8H, Basophils % (Manual) 0, Band Neutrophils 0, Platelet Estimate Adequate, Platelet Morphology Normal, Hypochromasia 2+, Erythrocyte Sedimentation Rate 40H, Reticulocyte Count 1.3, Prothrombin Time 11.1, Prothromb Time International Ratio 1.1, Activated Partial Thromboplast Time 31, Iron Level 177H, Total Iron Binding Capacity 205L, Percent Iron Saturation 86H, Unsaturated Iron Binding 28L, Lactate Dehydrogenase 490H, Vitamin B12 Level 595 , Folate 11.5 Height (Feet): 5 Height (Inches): 11.00 Weight (Pounds): 166 General Appearance: no apparent distress Respiratory/Chest: decreased breath sounds Abdomen: non tender, soft Marco Dutton Aug 28, 2017 00:22
[2017-08-28] MEDS: DiphenhydrAMINE 50mg/ml Inj IVP PRN ×2 (03:42→09:52)
[2017-08-28 04:00] VITALS: BP 126/89
[2017-08-28] MEDS: HYDROmorphone 4mg tab ORAL PRN (04:43)
[2017-08-28 07:00] LABS: BASOPHILS % (AUTO) 1.1 % (0.0-2.0); EOSINOPHILS % (AUTO) 10.5 % (0.0-3.0); HEMATOCRIT 28.4 % (42.0-52.0); HEMOGLOBIN 9.4 G/DL (14.2-18.0); LYMPHOCYTES % (AUTO) 27.7 % (20.0-45.0); MEAN CORPUSCULAR VOLUME 94 FL (80-99); MONOCYTES % (AUTO) 4.9 % (1.0-10.0); NEUTROPHILS % (AUTO) 55.7 % (45.0-75.0); PLATELET COUNT 435 K/UL (150-450); RED BLOOD COUNT 3.01 M/UL (4.70-6.10); RED CELL DISTRIBUTION WIDTH 15.8 % (11.6-14.8); WHITE BLOOD COUNT 11.2 K/UL (4.8-10.8)
[2017-08-28 07:06] LABS: ALANINE AMINOTRANSFERASE 64 U/L (12-78); ALBUMIN 3.1 G/DL (3.4-5.0); ALBUMIN/GLOBULIN RATIO 0.9 (1.0-2.7); ALKALINE PHOSPHATASE 183 U/L (46-116); ANION GAP 6 mmol/L (5-15); ASPARTATE AMINO TRANSFERASE 60 U/L (15-37); BILIRUBIN,TOTAL 0.7 MG/DL (0.2-1.0); BLOOD UREA NITROGEN 25 mg/dL (7-18); CALCIUM 9.9 MG/DL (8.5-10.1); CARBON DIOXIDE 31 MMOL/L (21-32); CHLORIDE 104 MMOL/L (98-107); CREATININE 0.9 MG/DL (0.55-1.30); LACTATE DEHYDROGENASE 502 U/L (81-234); POTASSIUM 4.5 MMOL/L (3.5-5.1); SODIUM 141 MMOL/L (136-145)
[2017-08-28 07:20] LABS: PHOSPHORUS 4.1 MG/DL (2.5-4.9)
[2017-08-28 08:00] VITALS: BP 109/73
--- NOTE | 2017-08-28 08:43 | General Progress Note ---
Assessment/Plan Assessment/Plan (1) Intractable pain (2) Avascular necrosis of femur head, left (3) Sickle cell crisis (4) Avascular necrosis of femur head, right Patient will be continued on methadone and Dilaudid Pt was d/w Dr. Perera and he concurred. Subjective Date patient seen: Aug 28, 2017 Time patient seen: 07:30 - am Allergies: Coded Allergies: PENTAMIDINE ISETHIONATE (Verified Allergy, Severe, palpitations, 08/27/17) AMPICILLIN (Verified Allergy, Unknown, 08/03/16) KETOROLAC (Verified Allergy, Unknown, 08/03/16) MORPHINE (Verified Allergy, Unknown, 08/03/16) PHENYTOIN (Verified Allergy, Unknown, 08/03/16) Subjective Constitutional: Reports: chills HEENT: Denies: blurred vision, double vision, ear discharge, ear pain, eye pain , mouth pain, mouth swelling, nose congestion, nose pain, tearing, throat pain, throat swelling Cardiovascular: Denies: chest pain, edema, irregular heart rate, lightheadedness, palpitations, syncope Respiratory: Denies: SOB at rest, SOB with excertion, cough, orthopnea, shortness of breath, sputum, stridor, wheezing Gastrointestinal/Abdominal: Denies: abdomen distended, abdominal pain, black stools, blood in stool, constipated, diarrhea, difficulty swallowing, nausea, poor appetite, poor fluid intake, rectal bleeding, tarry stools, vomiting Genitourinary: Denies: burning, discharge, flank pain, frequency, hematuria, incontinence, pain, urgency 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: Denies: anxiety, depressed, emotional problems, headache, numbness, paresthesia, pre-existing deficit, seizure, tingling, tremors, weakness Endocrine: Reports: other, Denies: excessive sweating, flushing, increased hunger, increased thirst, increased urine, intolerance to cold, intolerance to heat, unexplained weight gain, unexplained weight loss Hematologic/Lymphatic: Denies: anemia, easy bleeding, easy bruising Subjective Patient has been in bed and shows no signs of pain or distress. Pain has been well controlled on the medications. Objective Last 24 Hour Vital Signs Date Time Temp Pulse Resp B/P (MAP) Pulse Ox O2 Delivery O2 Flow Rate FiO2 08/28/17 04:00 97.7 71 18 126/89 91 08/28/17 04:00 Nasal Cannula 6.0 08/28/17 00:00 97.2 68 18 122/77 99 08/28/17 00:00 Nasal Cannula 6.0 08/27/17 20:00 97.9 79 20 110/77 100 08/27/17 20:00 Nasal Cannula 6.0 08/27/17 15:48 97.6 77 20 139/86 97 08/27/17 11:40 97.6 71 20 112/73 99 08/27/17 09:50 98.2 Intake and Output 08/27/17 08/28/17 19:00 07:00 Intake Total 795 ml 825 ml Output Total 800 ml 2500 ml Balance -5 ml -1675 ml Intake Oral 720 ml IV Total 75 ml 825 ml Output Urine Total 800 ml 2500 ml Laboratory Tests 08/28/17 05:23: White Blood Count 11.2H, Red Blood Count 3.01L, Hemoglobin 9.4L, Hematocrit 28.4L, Mean Corpuscular Volume 94, Mean Corpuscular Hemoglobin 31.3H, Mean Corpuscular Hemoglobin Concent 33.2, Red Cell Distribution Width 15.8H, Platelet Count 435, Mean Platelet Volume 7.3, Neutrophils (%) (Auto) 55.7, Lymphocytes (%) (Auto) 27.7, Monocytes (%) (Auto) 4.9, Eosinophils (%) (Auto) 10.5H, Basophils (%) (Auto) 1.1, Erythrocyte Sedimentation Rate [Pending], Phosphorus Level 4.1, Magnesium Level 1.6L, C-Reactive Protein, Quantitative 1.5H 08/28/17 05:25: Sodium Level 141, Potassium Level 4.5, Chloride Level 104, Carbon Dioxide Level 31, Anion Gap 6, Blood Urea Nitrogen 25H, Creatinine 0.9, Estimat Glomerular Filtration Rate > 60, Glucose Level 150H, Calcium Level 9.9, Total Bilirubin 0.7 , Aspartate Amino Transf (AST/SGOT) 60H, Alanine Aminotransferase (ALT/SGPT) 64 , Alkaline Phosphatase 183H, Lactate Dehydrogenase 502H, Total Protein 6.5, Albumin 3.1L, Globulin 3.4, Albumin/Globulin Ratio 0.9L Height (Feet): 5 Height (Inches): 11.00 Weight (Pounds): 166 Objective General Appearance: no apparent distress, alert EENT: PERRL/EOMI, normal ENT inspection Neck: non-tender, normal alignment Cardiovascular: normal rate, regular rhythm Respiratory/Chest: decreased breath sounds Abdomen: non tender, soft Edema: no edema noted Arm (L), no edema noted Arm (R), no edema noted Leg (L), no edema noted Leg (R), no edema noted Pedal (L), no edema noted Pedal (R), no edema noted Generalized Neurologic: alert, oriented x 3 Skin: warm/dry ANTIONE PHILLIPS Aug 28, 2017 08:43
[2017-08-28] MEDS: Heparin 5000 units/ml inj SUBQ SCH (09:00)
[2017-08-28] MEDS: Hydroxyurea 500mg cap ORAL SCH (09:51)
[2017-08-28] MEDS ORDERED: 1/2 NS 1000ml IV ONE (10:09)
[2017-08-28] MEDS ORDERED: Heplock Flush 100 units/ml 3 ml syr INJ ONE (10:45)
--- NOTE | 2017-08-28 15:20 | Pulmonology Progress Note ---
Assessment/Plan Problems: (1) Sickle cell crisis (2) severe diastolic heart disease (3) Pulmonary HTN Assessment/Plan pain management iv fluids check LDH Dr. Dutton to see temp of 99.7. ID evaluaipaul flores planning, pt wants to go home Subjective Allergies: Coded Allergies: PENTAMIDINE ISETHIONATE (Verified Allergy, Severe, palpitations, 08/27/17) AMPICILLIN (Verified Allergy, Unknown, 08/03/16) KETOROLAC (Verified Allergy, Unknown, 08/03/16) MORPHINE (Verified Allergy, Unknown, 08/03/16) PHENYTOIN (Verified Allergy, Unknown, 08/03/16) Objective Last 24 Hour Vital Signs Date Time Temp Pulse Resp B/P (MAP) Pulse Ox O2 Delivery O2 Flow Rate FiO2 08/28/17 08:00 98.3 78 20 109/73 92 08/28/17 04:00 97.7 71 18 126/89 91 08/28/17 04:00 Nasal Cannula 6.0 08/28/17 00:00 97.2 68 18 122/77 99 08/28/17 00:00 Nasal Cannula 6.0 08/27/17 20:00 97.9 79 20 110/77 100 08/27/17 20:00 Nasal Cannula 6.0 08/27/17 15:48 97.6 77 20 139/86 97 Intake and Output 08/27/17 08/28/17 19:00 07:00 Intake Total 795 ml 825 ml Output Total 800 ml 2500 ml Balance -5 ml -1675 ml Intake Oral 720 ml IV Total 75 ml 825 ml Output Urine Total 800 ml 2500 ml Objective General Appearance: cachetic HEENT: normocephalic, atraumatic Respiratory/Chest: chest wall non-tender, normal breath sounds Cardiovascular: normal peripheral pulses, normal rate Abdomen: soft, non tender, no organomegaly Genitourinary: normal external genitalia Extremities: no clubbing Skin: no rash, no lesions 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: 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, no motor/sensory deficits, normal mood/affect Lymphatic: no neck adenopathy Microbiology Date/Time Source Procedure Growth Status 08/25/17 20:10 Blood Blood Culture - Preliminary NO GROWTH AFTER 48 HOURS Resulted 08/25/17 19:50 Blood Blood Culture - Preliminary NO GROWTH AFTER 48 HOURS Resulted 08/25/17 23:28 Nasal Nares Influenza Types A,B Antigen (LEANDRO) - Final Complete Laboratory Tests 08/28/17 05:23: White Blood Count 11.2H, Red Blood Count 3.01L, Hemoglobin 9.4L, Hematocrit 28.4L, Mean Corpuscular Volume 94, Mean Corpuscular Hemoglobin 31.3H, Mean Corpuscular Hemoglobin Concent 33.2, Red Cell Distribution Width 15.8H, Platelet Count 435, Mean Platelet Volume 7.3, Neutrophils (%) (Auto) 55.7, Lymphocytes (%) (Auto) 27.7, Monocytes (%) (Auto) 4.9, Eosinophils (%) (Auto) 10.5H, Basophils (%) (Auto) 1.1, Erythrocyte Sedimentation Rate 35H, Phosphorus Level 4.1, Magnesium Level 1.6L, C-Reactive Protein, Quantitative 1.5H 08/28/17 05:25: Sodium Level 141, Potassium Level 4.5, Chloride Level 104, Carbon Dioxide Level 31, Anion Gap 6, Blood Urea Nitrogen 25H, Creatinine 0.9, Estimat Glomerular Filtration Rate > 60, Glucose Level 150H, Calcium Level 9.9, Total Bilirubin 0.7 , Aspartate Amino Transf (AST/SGOT) 60H, Alanine Aminotransferase (ALT/SGPT) 64 , Alkaline Phosphatase 183H, Lactate Dehydrogenase 502H, Total Protein 6.5, Albumin 3.1L, Globulin 3.4, Albumin/Globulin Ratio 0.9L KENNEDY MOORE Aug 28, 2017 15:20
--- NOTE | 2017-08-28 23:57 | General Progress Note ---
Assessment/Plan Assessment/Plan 1. 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 --> Current hemoglobin is within normal limits. --> Blood transfusion not required unless symptomatic or hgb <7 2. Deep venous thrombosis of the lower extremity, which was sustained in the right leg and the left leg, --> bilateral deep venous thrombosis, has been on Xarelto. --> INR goal between 2 and 3 --> Improved. 4. Pulmonary hypertension. 5. Nausea and vomiting, currently on Zofran on as-needed basis. 6. Coagulopathy due to prior history of Xarelto use. His anticoagulation at this point is currently on heparin subcutaneous. --> Given his anemia, it is still okay to begin the patient on Xarelto versus a heparin drip. Subjective Date patient seen: Aug 28, 2017 Constitutional: Denies: no symptoms, chills, diaphoresis, fever, malaise, weakness, other HEENT: Denies: no symptoms, eye pain, blurred vision, tearing, double vision, ear pain, ear discharge, nose pain, nose congestion, throat pain, throat swelling, mouth pain, mouth swelling, other Cardiovascular: Denies: no symptoms, chest pain, edema, irregular heart rate, lightheadedness, palpitations, syncope, other Respiratory: Denies: no symptoms, cough, orthopnea, shortness of breath, SOB with excertion, SOB at rest, sputum, stridor, wheezing, other Gastrointestinal/Abdominal: Denies: no symptoms, abdomen distended, abdominal pain, black stools, tarry stools, blood in stool, constipated, diarrhea, difficulty swallowing, nausea, poor appetite, poor fluid intake, rectal bleeding , vomiting, other Genitourinary: Denies: no symptoms, burning, discharge, frequency, flank pain, hematuria, incontinence, pain, urgency, other Hematologic/Lymphatic: Reports: anemia Allergies: Coded Allergies: PENTAMIDINE ISETHIONATE (Verified Allergy, Severe, palpitations, 08/27/17) AMPICILLIN (Verified Allergy, Unknown, 08/03/16) KETOROLAC (Verified Allergy, Unknown, 08/03/16) MORPHINE (Verified Allergy, Unknown, 08/03/16) PHENYTOIN (Verified Allergy, Unknown, 08/03/16) Subjective No fever or chills. NAD. Stable. Objective Last 24 Hour Vital Signs Date Time Temp Pulse Resp B/P (MAP) Pulse Ox O2 Delivery O2 Flow Rate FiO2 08/28/17 08:00 98.3 78 20 109/73 92 08/28/17 04:00 97.7 71 18 126/89 91 08/28/17 04:00 Nasal Cannula 6.0 08/28/17 00:00 97.2 68 18 122/77 99 08/28/17 00:00 Nasal Cannula 6.0 Intake and Output 08/27/17 08/28/17 19:00 07:00 Intake Total 795 ml 825 ml Output Total 800 ml 2500 ml Balance -5 ml -1675 ml Intake Oral 720 ml IV Total 75 ml 825 ml Output Urine Total 800 ml 2500 ml Laboratory Tests 08/28/17 05:23: White Blood Count 11.2H, Red Blood Count 3.01L, Hemoglobin 9.4L, Hematocrit 28.4L, Mean Corpuscular Volume 94, Mean Corpuscular Hemoglobin 31.3H, Mean Corpuscular Hemoglobin Concent 33.2, Red Cell Distribution Width 15.8H, Platelet Count 435, Mean Platelet Volume 7.3, Neutrophils (%) (Auto) 55.7, Lymphocytes (%) (Auto) 27.7, Monocytes (%) (Auto) 4.9, Eosinophils (%) (Auto) 10.5H, Basophils (%) (Auto) 1.1, Erythrocyte Sedimentation Rate 35H, Phosphorus Level 4.1, Magnesium Level 1.6L, C-Reactive Protein, Quantitative 1.5H 08/28/17 05:25: Sodium Level 141, Potassium Level 4.5, Chloride Level 104, Carbon Dioxide Level 31, Anion Gap 6, Blood Urea Nitrogen 25H, Creatinine 0.9, Estimat Glomerular Filtration Rate > 60, Glucose Level 150H, Calcium Level 9.9, Total Bilirubin 0.7 , Aspartate Amino Transf (AST/SGOT) 60H, Alanine Aminotransferase (ALT/SGPT) 64 , Alkaline Phosphatase 183H, Lactate Dehydrogenase 502H, Total Protein 6.5, Albumin 3.1L, Globulin 3.4, Albumin/Globulin Ratio 0.9L Height (Feet): 5 Height (Inches): 11.00 Weight (Pounds): 166 General Appearance: no apparent distress Cardiovascular: normal rate Respiratory/Chest: decreased breath sounds Abdomen: non tender, soft Marco Dutton Aug 28, 2017 23:57
--- NOTE | 2017-08-30 14:51 | Discharge Summary ---
Discharge Summary Hospital Course Date of Admission Aug 25, 2017 at 21:32 Date of Discharge Aug 28, 2017 at 11:00 Admitting Diagnosis acute chest syndrome, sickle cell HPI Yevgeniy Barrett is a 41 year old male who was admitted on Aug 25, 2017 at 21:32 for Acute Chest Syndrome,Sickle Cell Hospital Course dc summary #[id number] Discharge Medications Continued Medications: Diphenhydramine HCl (Benadryl) 25 Mg Capsule 50 MG PO Q4HR PRN for Itching, CAP Folic Acid* (Folic Acid*) 1 Mg Tablet 1 MG ORAL DAILY for 30 Days, #30 TAB 6 Refills Gabapentin* (Gabapentin*) 400 Mg Capsule 500 MG ORAL THREE TIMES A DAY for 30 Days, #90 CAP 1 Refill Hydromorphone HCl (Dilaudid) 4 Mg Tablet 12 MG ORAL EVERY 4 HOURS, #60 TAB 0 Refills Hydroxyurea* (Hydrea*) 500 Mg Capsule 500 MG PO BID for 30 Days, #30 CAP 6 Refills Methadone Hcl* (Methadone*) 10 Mg Tablet 50 MG PO Q6HR, #90 TAB 0 Refills Rivaroxaban (Xarelto) 15 Mg Tablet 15 MG ORAL Q12HR for 60 Days, TAB Discharge Condition Upon Discharge: stable Discharge Disposition Patient was discharged to Home (01) Discharge Diagnoses: Discharge Instructions Discharge Instructions Special Instructions I have been assigned to complete a D/C Summary on this account. I was not involved in the patient management Mikayla Camara NP (Vanchtein) Aug 30, 2017 14:51
--- NOTE | 2017-08-31 04:01 | Discharge Summary 2 SIG ---
DATE OF ADMISSION: 08/25/2017 DATE OF DISCHARGE: 08/28/2017 REASON FOR ADMISSION: 41-year-old male with a history of sickle cell disease, hypertension, asthma, and history of DVT, presented to emergency department with complaint of cough and body pain. Pain described as stabbing, 10/10, and nonradiating. No fever. No chills. He also complained of the chest pain, but no shortness of breath. Vital signs showed elevated blood pressure -158/93. Noted leukocytosis -13.8. Hemoglobin and hematocrit stable for sickle cell disease. Hemoglobin -10.1 and hematocrit -31.5. LDH elevated. Reticulocyte count stable. Electrolytes within normal limits. EKG showed normal sinus rhythm. No acute ischemic changes. Troponin negative. Chest x-ray showed mild cardiomegaly with interstitial and patchy bilateral airspace opacities. Finding may be related to interstitial edema with foci of developing alveolar edema. Superimposed pneumonia was not excluded. The patient was admitted with a diagnoses of acute chest syndrome with sickle cell crisis , leukocytosis, and possible pneumonia. HOSPITAL STAY: The patient was admitted to telemetry floor. ID and pain specialist consults were requested along with the spare fixer. Review of previous echocardiogram showed severe diastolic heart failure. The patient appeared to be in sickle cell crisis. The patient was on the IV fluids. Supplemental oxygen provided as needed to keep pulse oximetry above 92%. Pain management provided. Pain specialist consulted. LDH was trending. The patient declined echocardiogram and venous duplex. Infectious Disease doctor seen the patient due to the low-grade fever and leukocytosis, which was likely due to sickle cell crisis. The patient was started on empiric antibiotics at that time. Blood cultures were negative. Influenza screen test was negative. Antibiotics stopped prior to discharge. ID doubted pneumonia. Chest x-ray was suggestive of pulmonary edema. The patient did not have significant cough. Pain specialist seen the patient. Pain management was provided as per pain specialist recommendation. The patient had right and left avascular necrosis of femoral head. The patient also had intractable pain due to sickle cell crisis. Car Salesman closely followed the patient. Per spare fixer, the patient had anemia due to sickle cell disease. Hemoglobin and hematocrit were closely monitored, remained with baseline for this patient. The patient with a history of DVT of the lower extremity. Patient declined Venous Duplex as mentioned above. The patient was on Xarelto at home, continue upon discharge. Pain controlled, tolerated diet. Cough resolved. The patient was stable for discharge. FINAL DIAGNOSES: 1. Severe diastolic heart failure. 2. Sickle cell crisis. 3. Pulmonary hypertension. 4. Anemia secondary to sickle cell disease. 5. History of deep venous thrombosis. 6. Avascular necrosis of femoral head, right. 7. Avascular necrosis of femoral head, left. DISCHARGE MEDICATIONS: See medication reconciliation list. DISCHARGE INSTRUCTIONS: The patient was discharged home. Follow up with the spare fixer as outpatient. Hanna Mckenna M.D. I have been assigned to dictate discharge summary on this account and I was not involved in the patient's management. Mikayla GarciaSt. John'S Episcopal Hospital South ShoreGeorge N.PMoustapha DR: NARCISA JOB#: [id number] CC: LELAND
== END 2017-08-28 11:00 | disposition home or self-care (01) | DRG 811 ==
LOC: EMR 19:20 → 4E 21:32 → EDBEDREQSVC 22:15 → EDBEDREQ 22:32 → 4E 08-26 23:16
DX: D57.01 Hb-SS disease with acute chest syndrome (principal); I50.31 Acute diastolic (congestive) heart failure; J18.9 Pneumonia, unspecified organism; I27.20 Pulmonary hypertension, unspecified; D68.9 Coagulation defect, unspecified; M87.852 Other osteonecrosis, left femur; M87.851 Other osteonecrosis, right femur; Z88.6 Allergy status to analgesic agent; Z88.0 Allergy status to penicillin; Z88.8 Allergy status to other drugs, medicaments and biological substances; I10 Essential (primary) hypertension; Z86.718 Personal history of other venous thrombosis and embolism
CPT/HCPCS: 36415; 71045; 80053; 81003; 82378; 82550; 82553; 82607; 82746; 83540; 83550; 83605; 83615; 83735; 83880; 84100; 84484; 85007; 85025; 85044; 85060; 85610; 85651; 85730; 86140; 86710; 86850; 86900; 86901; 87040; 93005; 99285

== ENCOUNTER 2017-09-18 18:44 | Inpatient (IN) | payer MEDICARE, OTHER ==
[~2017-09-18] VITALS: Ht 180.3 cm; Wt 71.2 kg
[2017-09-18] MEDS ORDERED: NS 250 ML IV ONE (19:11)
[2017-09-18] MEDS ORDERED: DiphenhydrAMINE 50mg/ml Inj IVP ONE (19:30)
[2017-09-18] MEDS ORDERED: Morphine Sulfate 2mg/ml Inj IVP ONE (19:30)
--- NOTE | 2017-09-18 19:53 | Emergency Room Report ---
History of Present Illness General Chief Complaint: Seizure Source: Patient (Lawson Robertson) Present Illness HPI 41 yo male patient presents to ER BIB ambulance s/p seizure a few hours ago. Patient reports seizure was unwitnessed. Reports having a seizure yesterday as well; states previous seizure was a long time before that. Patient reports taking phenobarbital for symptoms. Reports he woke up and called ambulance to bring him in. Reports he urinated himself during seizure; has urine soaked pants with him. Patient has a hx of sickle cell disease. Patient is complaining of chest pain during this time. Patient reports feels like he is having crisis. (Lawson Robertson) Allergies: Coded Allergies: PENTAMIDINE ISETHIONATE (Verified Allergy, Severe, palpitations, 08/27/17) AMPICILLIN (Verified Allergy, Unknown, 08/03/16) KETOROLAC (Verified Allergy, Unknown, 08/03/16) MORPHINE (Verified Allergy, Unknown, 08/03/16) PHENYTOIN (Verified Allergy, Unknown, 08/03/16) Patient History Past Medical History: see triage record Reviewed Nursing Documentation: PMH: Agreed, PSxH: Agreed (Lawson Robertson) Nursing Documentation-PMH Past Medical History: No History, Except For Hx Cardiac Problems: Yes - sickle cell Hx Hypertension: Yes Hx Asthma: Yes Hx COPD: Yes Hx Cancer: No Hx Gastrointestinal Problems: No Hx Neurological Problems: Yes Hx Seizures: Yes (Lawson Robertson) Review of Systems All Other Systems: negative except mentioned in HPI (Lawson Robertson) Physical Exam Vital Signs Date Time Temp Pulse Resp B/P (MAP) Pulse Ox O2 Delivery O2 Flow Rate FiO2 09/18/17 18:50 98.0 84 23 111/72 96 Nasal Cannula 6.0 98.1 Sp02 EP Interpretation: reviewed, normal General Appearance: well appearing, no apparent distress, alert, GCS 15 Head: normocephalic, atraumatic Eyes: bilateral eye normal inspection, bilateral eye PERRL ENT: hearing grossly normal, normal pharynx, no angioedema, normal voice, uvula midline, moist mucus membranes Neck: full range of motion Respiratory: lungs clear, normal breath sounds, no rhonchi, no respiratory distress, no accessory muscle use, no wheezing, speaking full sentences Cardiovascular #1: regular rate, rhythm, no edema Gastrointestinal: non tender, soft, no mass, non-distended, no guarding, no rebound Musculoskeletal: back normal, digits/nails normal, gait/station normal, normal range of motion, non-tender Neurologic: alert, oriented x3, responsive, motor strength/tone normal, sensory intact Psychiatric: mood/affect normal Skin: no rash Lymphatic: no adenopathy (Lawson Robertson) Medical Decision Making PA Attestation Dr. Carballo is my supervising Physician whom patient management has been discussed with. (Lawson Robertson) ER Course Pt. presents to the ED c/o seizure Ddx considered but are not limited to seizure disorder, drug intoxication Began workup for seizure disorder. Vital signs: are WNL, pt. is afebrile Ordered labs, EKG, CXR, and pain medication. ED COURSE: Patient moved to monitored bed. EKG shows T wave inversion; results consistent with previous EKG performed at hospital. Patient care transferred to Dr. Carballo. Patient will be admitted to hospital to (Lawson Robertson PCali) ER Course Patient requiring admission for seizures, had one yesterday and another today. Normally takes phenobarbital, phenobarbital level is low Patient is hypoxic on room air, on nasal cannula, and intractable pain I gave Keppra instead of phenobarbital 2 to risk of having respiratory depression Patient will be admitted to telemetry floor Patient was signed out to Dr Mckenna, who has accepted patient for admission. (Lucie Carballo M.D.) EKG Diagnostic Results Rate: normal Rhythm: NSR ST Segments: other - T wave abnormality ASA given to the pt in ED: No PA Scribe Text Walt Robertson PA-C (Lawson Robertson P.AMoustapha) Rhythm Strip Diag. Results EP Interpretation: yes Rate: 76 Rhythm: NSR, no PVC's, no ectopy PA Scribe Text Walt Robertson PA-C (Lawson Robertson P.AMoustapha) Last Vital Signs Date Time Temp Pulse Resp B/P (MAP) Pulse Ox O2 Delivery O2 Flow Rate FiO2 318 18:50 98.0 84 23 111/72 96 Nasal Cannula 6.0 98.1 (Lawson Robertson P.A.) Disposition: ADMITTED INPATIENT Condition: Serious Lawson Robertson Sep 18, 2017 19:53 Lucie Carballo M.D. Sep 18, 2017 21:25
[2017-09-18 20:16] LABS: APPEARANCE,URINE CLEAR; BILIRUBIN, URINE NEGATIVE (NEGATIVE); COLOR,URINE PALE YELLOW; GLUCOSE, URINE (UA) NEGATIVE (NEGATIVE); KETONES,URINE NEGATIVE (NEGATIVE); LEUKOCYTE ESTERASE ,URINE 1+ (NEGATIVE); NITRITE,URINE NEGATIVE (NEGATIVE); PH,URINE 7 (4.5-8.0); PROTEIN,URINE 3+ (NEGATIVE); UROBILINOGEN,URINE NORMAL MG/DL (0.0-1.0)
[2017-09-18] MEDS ORDERED: PHENOBARBITAL30 MG ORAL (20:41)
[2017-09-18 20:59] LABS: EOSINOPHILS % (AUTO) 10.1 % (0.0-3.0); HEMATOCRIT 24.7 % (42.0-52.0); HEMOGLOBIN 8.3 G/DL (14.2-18.0); LYMPHOCYTES % (AUTO) 30.5 % (20.0-45.0); MEAN CORPUSCULAR VOLUME 91 FL (80-99); MONOCYTES % (AUTO) 6.6 % (1.0-10.0); NEUTROPHILS % (AUTO) 51.8 % (45.0-75.0); PLATELET COUNT 250 K/UL (150-450); RED BLOOD COUNT 2.72 M/UL (4.70-6.10); RED CELL DISTRIBUTION WIDTH 15.1 % (11.6-14.8); WHITE BLOOD COUNT 14.7 K/UL (4.8-10.8)
[2017-09-18 21:02] LABS: ANION GAP 4 mmol/L (5-15); BLOOD UREA NITROGEN 23 mg/dL (7-18); CALCIUM 9.7 MG/DL (8.5-10.1); CARBON DIOXIDE 33 MMOL/L (21-32); CHLORIDE 104 MMOL/L (98-107); CREATININE 0.8 MG/DL (0.55-1.30); POTASSIUM 4.7 MMOL/L (3.5-5.1); SODIUM 141 MMOL/L (136-145)
[2017-09-18 21:06] LABS: ALANINE AMINOTRANSFERASE 64 U/L (12-78); ALBUMIN 3.3 G/DL (3.4-5.0); ALKALINE PHOSPHATASE 154 U/L (46-116); ASPARTATE AMINO TRANSFERASE 44 U/L (15-37); BILIRUBIN,TOTAL 0.7 MG/DL (0.2-1.0)
[2017-09-18 21:10] LABS: INR 1.2 (0.9-1.1)
[2017-09-18] MEDS ORDERED: levETIRAcetam 1,500 MG in D5W 95 ML IVPB SCH (21:30)
[2017-09-18] MEDS ORDERED: Mylanta II UD 30ml ORAL PRN (21:30)
[2017-09-18] MEDS ORDERED: Zolpidem 5mg tab ORAL PRN (21:30)
[2017-09-18] MEDS ORDERED: Miralax 17gm pkt ORAL PRN (21:30)
[2017-09-18] MEDS ORDERED: LORazepam Inj 2mg/ml 1ml IV PRN (21:30)
[2017-09-18 21:57] VITALS: BP 124/78
[2017-09-19] MEDS ORDERED: levETIRAcetam 500mg vial IV ONE (01:07)
[2017-09-19 04:00] VITALS: BP 103/59
[2017-09-19] MEDS: HYDROmorphone 2 MG in NS 50 ML IVPB PRN ×3 (04:15→20:58)
[2017-09-19 08:00] VITALS: BP 126/98
[2017-09-19] MEDS: Heparin 5000 units/ml inj SUBQ SCH ×2 (09:00→20:56)
--- NOTE | 2017-09-19 09:00 | History and Physical ---
History of Present Illness General Date patient seen: Sep 19, 2017 Reason for Hospitalization: Seizure Present Illness HPI 41 year old male with hx of seizures, sickle cell disease presented to ER BIB ambulance s/p seizure a few hours ago. Patient takes phenobarbital for seizures. Reports he woke up and called ambulance to bring him in. Patient is complaining of chest pain during this time. He is c/o generalized body pain as well Allergies: Coded Allergies: PENTAMIDINE ISETHIONATE (Verified Allergy, Severe, palpitations, 08/27/17) AMPICILLIN (Verified Allergy, Unknown, 08/03/16) KETOROLAC (Verified Allergy, Unknown, 08/03/16) MORPHINE (Verified Allergy, Unknown, 08/03/16) PHENYTOIN (Verified Allergy, Unknown, 08/03/16) Medication History Scheduled Folic Acid* (Folic Acid*), 1 MG ORAL DAILY Gabapentin* (Gabapentin*), 500 MG ORAL THREE TIMES A DAY Hydromorphone HCl (Dilaudid), 12 MG ORAL EVERY 4 HOURS, (Reported) Hydroxyurea* (Hydrea*), 500 MG PO BID Methadone Hcl* (Methadone*), 50 MG PO Q6HR, (Reported) Phenobarbital* (Phenobarbital*), 30 MG ORAL THREE TIMES A DAY, (Reported) Rivaroxaban (Xarelto), 15 MG ORAL Q12HR Scheduled PRN Diphenhydramine HCl (Benadryl), 50 MG PO Q4HR PRN for Itching, (Reported) Patient History Healthcare decision maker Resuscitation status Advanced Directive on File Past Medical/Surgical History Past Medical/Surgical History: (1) Seizure disorder (2) severe diastolic heart disease (3) Pulmonary HTN (4) Sickle cell disease Family History Family History: Patient reports no known family medical history. 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 Last 24 Hour Vital Signs Date Time Temp Pulse Resp B/P (MAP) Pulse Ox O2 Delivery O2 Flow Rate FiO2 3/6/18 04:45 98.0 09/19/17 04:15 98.0 09/19/17 04:00 70 09/19/17 04:00 73 18 103/59 100 Nasal Cannula 6.0 09/19/17 00:00 72 09/18/17 22:01 98.0 75 15 124/78 100 Nasal Cannula 6.0 98.0 09/18/17 21:57 98.0 75 15 124/78 100 Nasal Cannula 6.0 98.0 09/18/17 20:52 84 23 Nasal Cannula 6.0 09/18/17 18:50 98.0 84 23 111/72 96 Nasal Cannula 6.0 98.1 Intake and Output 09/18/17 09/19/17 19:00 07:00 Intake Total 200 ml Output Total 650 ml Balance -450 ml Intake Oral 200 ml Output Urine Total 650 ml # Voids 1 Laboratory Tests Test 09/18/17 19:45 09/18/17 20:40 Urine Color Pale yellow Urine Appearance Clear Urine pH 7 (4.5-8.0) Urine Specific [place] 1.010 (1.005-1.035) Urine Protein 3+ (NEGATIVE) H Urine Glucose (UA) Negative (NEGATIVE) Urine Ketones Negative (NEGATIVE) Urine Occult Blood Negative (NEGATIVE) Urine Nitrite Negative (NEGATIVE) Urine Bilirubin Negative (NEGATIVE) Urine Urobilinogen Normal MG/DL (0.0-1.0) Urine Leukocyte Esterase 1+ (NEGATIVE) H Urine RBC 0-2 /HPF (0 - 0) H Urine WBC 2-4 /HPF (0 - 0) Urine Squamous Epithelial Cells None /LPF (NONE/OCC) Urine Bacteria Few /HPF (NONE) White Blood Count 14.7 K/UL (4.8-10.8) H Red Blood Count 2.72 M/UL (4.70-6.10) L Hemoglobin 8.3 G/DL (14.2-18.0) L Hematocrit 24.7 % (42.0-52.0) L Mean Corpuscular Volume 91 FL (80-99) Mean Corpuscular Hemoglobin 30.4 PG (27.0-31.0) Mean Corpuscular Hemoglobin Concent 33.6 G/DL (32.0-36.0) Red Cell Distribution Width 15.1 % (11.6-14.8) H Platelet Count 250 K/UL (150-450) Mean Platelet Volume 6.9 FL (6.5-10.1) Neutrophils (%) (Auto) 51.8 % (45.0-75.0) Lymphocytes (%) (Auto) 30.5 % (20.0-45.0) Monocytes (%) (Auto) 6.6 % (1.0-10.0) Eosinophils (%) (Auto) 10.1 % (0.0-3.0) H Basophils (%) (Auto) 1.0 % (0.0-2.0) Reticulocyte Count 1.9 % (0.0-2.0) Prothrombin Time 12.5 SEC (9.30-11.50) H Prothromb Time International Ratio 1.2 (0.9-1.1) H Activated Partial Thromboplast Time 46 SEC (23-33) H Sodium Level 141 MMOL/L (136-145) Potassium Level 4.7 MMOL/L (3.5-5.1) Chloride Level 104 MMOL/L (98-107) Carbon Dioxide Level 33 MMOL/L (21-32) H Anion Gap 4 mmol/L (5-15) L Blood Urea Nitrogen 23 mg/dL (7-18) H Creatinine 0.8 MG/DL (0.55-1.30) Estimat Glomerular Filtration Rate > 60 mL/min (>60) Glucose Level 103 MG/DL (74-106) Calcium Level 9.7 MG/DL (8.5-10.1) Total Bilirubin 0.7 MG/DL (0.2-1.0) Aspartate Amino Transf (AST/SGOT) 44 U/L (15-37) H Alanine Aminotransferase (ALT/SGPT) 64 U/L (12-78) Alkaline Phosphatase 154 U/L (46-116) H Lactate Dehydrogenase 276 U/L (81-234) H Troponin I 0.000 ng/mL (0.000-0.056) Total Protein 6.5 G/DL (6.4-8.2) Albumin 3.3 G/DL (3.4-5.0) L Globulin 3.2 g/dL Albumin/Globulin Ratio 1.0 (1.0-2.7) Phenobarbital Level 1.9 ug/mL (15-40) L Height (Feet): 5 Height (Inches): 11.00 Weight (Pounds): 157 Medications Current Medications Medications (Trade) Dose Ordered Sig/Anthony Route PRN Reason Start Time Stop Time Status Last Admin Dose Admin Acetaminophen (Tylenol) 650 mg Q4H PRN ORAL fever 09/18/17 21:30 10/18/17 21:29 Al Hydroxide/Mg Hydroxide (Mylanta II) 30 ml Q6H PRN ORAL dyspepsia 09/18/17 21:30 10/18/17 21:29 Dextrose (Dextrose 50%) STAT PRN IV Hypoglycemia 09/18/17 21:30 10/18/17 21:29 Diphenhydramine HCl (Benadryl) 50 mg Q4H PRN ORAL Itching 09/19/17 05:00 10/19/17 04:59 09/19/17 05:37 Heparin Sodium (Porcine) (Heparin 5000 units/ml) 5,000 units EVERY 12 HOURS SUBQ 09/19/17 09:00 10/19/17 08:59 Hydromorphone HCl 2 mg/Sodium Chloride 51 ml @ 200 mls/hr EVERY 3 HOURS PRN IVPB pain 7-10 09/18/17 21:30 09/25/17 21:29 09/19/17 04:15 Lorazepam (Ativan 2mg/ml 1ml) 2 mg EVERY HOUR PRN IV seizures 09/18/17 21:30 09/25/17 21:29 Methadone HCl (Methadone HCl) 50 mg Q6H PRN ORAL Severe Breakthrough Pain 09/19/17 11:30 09/26/17 11:29 Ondansetron HCl (Zofran) 4 mg Q6H PRN IVP Nausea & Vomiting 09/18/17 21:30 10/18/17 21:29 Polyethylene Glycol (Miralax) 17 gm HSPRN PRN ORAL Constipation 09/18/17 21:30 10/18/17 21:29 Zolpidem Tartrate (Ambien) 5 mg HSPRN PRN ORAL Insomnia 09/18/17 21:30 09/25/17 21:29 Assessment/Plan Problem List: (1) Uncontrolled seizures ICD Codes: R56.9 - Unspecified convulsions SNOMED: 02083214 (2) Intractable pain ICD Codes: R52 - Pain, unspecified SNOMED: 18051227 (3) Sickle cell crisis ICD Codes: D57.00 - Hb-SS disease with crisis, unspecified SNOMED: 178866519 (4) Pulmonary HTN ICD Codes: I27.2 - Other secondary pulmonary hypertension SNOMED: 61538926 (5) severe diastolic heart disease Assessment/Plan seizure precaution, neurology evaluation hematology to see pain management wound care of foot ulcer KENNEDY MOORE Sep 19, 2017 08:59
--- NOTE | 2017-09-19 10:37 | Diagnostic Imaging Report ---
Indication: Chest pain Comparison: 08/25/2017 A single view chest radiograph was obtained. Findings: Interstitial opacities are present bilaterally with prominent vascularity. There is a right chest port. Heart is enlarged. Findings appear unchanged. Lungs are osteopenic. IMPRESSION: Interstitial infiltrates versus edema. No significant change
[2017-09-19 12:00] VITALS: BP 128/70
--- NOTE | 2017-09-19 12:28 | Neurology Progress Note ---
Objective Physical Exam Last Vital Signs Date Time Temp Pulse Resp B/P (MAP) Pulse Ox O2 Delivery O2 Flow Rate FiO2 09/19/17 04:45 98.0 09/19/17 04:00 70 09/19/17 04:00 18 103/59 100 Nasal Cannula 6.0 Laboratory Tests Test 09/18/17 19:45 09/18/17 20:40 Urine Color Pale yellow Urine Appearance Clear Urine pH 7 (4.5-8.0) Urine Specific [place] 1.010 (1.005-1.035) Urine Protein 3+ (NEGATIVE) H Urine Glucose (UA) Negative (NEGATIVE) Urine Ketones Negative (NEGATIVE) Urine Occult Blood Negative (NEGATIVE) Urine Nitrite Negative (NEGATIVE) Urine Bilirubin Negative (NEGATIVE) Urine Urobilinogen Normal MG/DL (0.0-1.0) Urine Leukocyte Esterase 1+ (NEGATIVE) H Urine RBC 0-2 /HPF (0 - 0) H Urine WBC 2-4 /HPF (0 - 0) Urine Squamous Epithelial Cells None /LPF (NONE/OCC) Urine Bacteria Few /HPF (NONE) White Blood Count 14.7 K/UL (4.8-10.8) H Red Blood Count 2.72 M/UL (4.70-6.10) L Hemoglobin 8.3 G/DL (14.2-18.0) L Hematocrit 24.7 % (42.0-52.0) L Mean Corpuscular Volume 91 FL (80-99) Mean Corpuscular Hemoglobin 30.4 PG (27.0-31.0) Mean Corpuscular Hemoglobin Concent 33.6 G/DL (32.0-36.0) Red Cell Distribution Width 15.1 % (11.6-14.8) H Platelet Count 250 K/UL (150-450) Mean Platelet Volume 6.9 FL (6.5-10.1) Neutrophils (%) (Auto) 51.8 % (45.0-75.0) Lymphocytes (%) (Auto) 30.5 % (20.0-45.0) Monocytes (%) (Auto) 6.6 % (1.0-10.0) Eosinophils (%) (Auto) 10.1 % (0.0-3.0) H Basophils (%) (Auto) 1.0 % (0.0-2.0) Reticulocyte Count 1.9 % (0.0-2.0) Prothrombin Time 12.5 SEC (9.30-11.50) H Prothromb Time International Ratio 1.2 (0.9-1.1) H Activated Partial Thromboplast Time 46 SEC (23-33) H Sodium Level 141 MMOL/L (136-145) Potassium Level 4.7 MMOL/L (3.5-5.1) Chloride Level 104 MMOL/L (98-107) Carbon Dioxide Level 33 MMOL/L (21-32) H Anion Gap 4 mmol/L (5-15) L Blood Urea Nitrogen 23 mg/dL (7-18) H Creatinine 0.8 MG/DL (0.55-1.30) Estimat Glomerular Filtration Rate > 60 mL/min (>60) Glucose Level 103 MG/DL (74-106) Calcium Level 9.7 MG/DL (8.5-10.1) Total Bilirubin 0.7 MG/DL (0.2-1.0) Aspartate Amino Transf (AST/SGOT) 44 U/L (15-37) H Alanine Aminotransferase (ALT/SGPT) 64 U/L (12-78) Alkaline Phosphatase 154 U/L (46-116) H Lactate Dehydrogenase 276 U/L (81-234) H Troponin I 0.000 ng/mL (0.000-0.056) Total Protein 6.5 G/DL (6.4-8.2) Albumin 3.3 G/DL (3.4-5.0) L Globulin 3.2 g/dL Albumin/Globulin Ratio 1.0 (1.0-2.7) Phenobarbital Level 1.9 ug/mL (15-40) L Impression/Recommendations Problems: (1) Uncontrolled seizures (2) Sickle cell disease Status: unchanged Recommendations #[id number] AMY MUSTAFA Sep 19, 2017 12:28
[2017-09-19] MEDS: DiphenhydrAMINE 50mg/ml Inj IVP PRN ×2 (13:26→20:57)
[2017-09-19 16:00] VITALS: BP 127/84
--- NOTE | 2017-09-19 16:26 | Cardiology Report ---
APPROVED REPORT EKG Measurement Heart [id number] Normal sinus rhythm T wave abnormality, consider anterior ischemia Abnormal ECG
--- NOTE | 2017-09-19 17:28 | Consultation ---
Consult Note Assessment/Plan A/ 1) Osteo? 2) Nonpressure ulcer left foot to level of muscle 3) Sickle Cell Dz P/ 1) MRI of left foot without contrast 2) Ordered wound care 3) Will follow Thank you Kevin Martin DPM Sep 19, 2017 17:28
[2017-09-19 20:00] VITALS: BP 129/87
--- NOTE | 2017-09-19 21:30 | Consultation ---
DATE OF CONSULTATION: 09/19/2017 NEUROLOGICAL CONSULTATION CONSULTING PHYSICIAN: Carl Alvares M.D. REQUESTING PHYSICIAN: Hanna Mckenna M.D. HISTORY OF PRESENT ILLNESS: This is a 41-year-old male, seen in neurological consultation to evaluate the exacerbation of seizure activities. According to the patient, at the age of 10, sustained an acute stroke, following which he developed intermittent generalized seizures, they are described as loss of consciousness and shaking with urinary incontinence, initially treated with Dilantin, later discontinued. He was also placed on phenobarbital, remaining until present time. The frequency of seizures initially quite often, but the last few years only once or twice a year. There was reported two generalized seizures in the last couple of days, seizure was unwitnessed, but during the episode, he reported urinary incontinence. The patient was brought to emergency room. Vital signs were stable, afebrile. Initial laboratory studies revealed chemistry panel with carbon dioxide of 33, BUN of 23. Elevated LDH of 276. Coagulation panel mildly abnormal, INR of 1.2. Urinalysis, 3+ protein. Toxicology panel, 1.9 mg of phenobarbital. Chest x-ray revealed interstitial infiltrates versus edema, but no significant changes. The patient was started on Keppra in order to replace phenobarbital due to having . EKG, normal sinus rhythm. No PVC. No ectopy detected. Patient now is fully alert and able to provide proper medical history. PAST MEDICAL HISTORY: The patient has a history of sickle-cell disease, hypertension, bronchial asthma, COPD, history of DVT, avascular necrosis of both hips, chronic anemia, severe diastolic heart failure and chronic pain syndrome. MEDICATIONS: The patient's treatment prior to admission included Benadryl, Coreg, gabapentin 500 mg t.i.d, Dilaudid 12 mg q.4 h., hydroxyurea, methadone 50 mg q.6 h., phenobarbital 30 mg t.i.d., and Xarelto 50 mg q.12 h. ALLERGIES: Ampicillin, ketorolac, morphine, pentamidine, phenytoin. FAMILY HISTORY: Noncontributory. SOCIAL HISTORY: Lives with his family. Denies alcohol or drug abuse. Denies illicit drug use. REVIEW OF SYMPTOMS: Severe pain, upper back and lower back; generalized aches and pain. Complains of nonhealing left foot wound. Denies headache, dizziness. Denies chest pain or palpitation. No respiratory problems. Denies abdominal pain or discomfort. No urine or bowel incontinence. PHYSICAL EXAMINATION: GENERAL: A well-developed, tall male, not in acute distress, found to be asleep. VITAL SIGNS: Stable. Blood pressure 103/69, afebrile. HEENT: Head normocephalic. There is no evidence of trauma. Eyes, ears, and throat are clear. NECK: Supple. No meningeal signs. MUSCULOSKELETAL: Postoperative scarring to both hips. Palpable tenderness diffusely in the cervical, thoracic, lumbar, paraspinal region, both hips, both legs, both knees. Peripheral pulses 1+ bilaterally. Unable to obtain dorsal pedis bilaterally. MENTAL STATUS: The patient is alert and oriented x3 with no evidence of aphasia or apraxia. Cognitive function appears normal. CRANIAL NERVE II: Pupils both responding to light and accommodation. There is right eye exotropia. Fundi poorly visualized. CRANIAL NERVE V: Normal corneal responses. CRANIAL NERVE VII: No fascial asymmetry. CRANIAL NERVE VIII: Normal hearing. CRANIAL NERVES IX THROUGH XII: Normal limits. MOTOR EXAMINATION: Normal muscle tone. Strength 5/5 in all extremities. Antalgic, both lower extremities. Deep tendon reflexes are depressed bilaterally. Plantar response is mute. SENSORY EXAMINATION: Inconsistent response with decrease in sensation in both feet. Gait not tested, but reported able to ambulate using cane. IMPRESSION: 1. Chronic seizure disorder exacerbation due to noncompliance. 2. Sickle-cell anemia. 3. Chronic pain syndrome, opiate dependent. 4. Hypertension. 5. Chronic obstructive pulmonary disease. 6. Status post deep venous thrombosis. 7. Bilateral hip avascular necrosis. RECOMMENDATION: I agree with maintaining on Keppra 500 mg b.i.d., taper off phenobarbital. Get EEG study. Observe for any further paroxysmal events. Thank you for allowing me to see this interesting patient in neurological consultation. Carl Alvares M.D. DR: Talisha JOB#: [id number] CC:
--- NOTE | 2017-09-19 22:30 | Consultation ---
DATE OF CONSULTATION: 09/19/2017 CONSULTING PHYSICIAN: Kevin Reese D.P.M. REQUESTING PHYSICIAN: Hanna Mckenna M.D. REASON FOR CONSULTATION: Chronic ulcer of the left foot with sickle cell disease. HISTORY OF PRESENT ILLNESS: The patient is a 41-year-old male, who was admitted to [facility] on 09/18/2017 for uncontrolled seizures. The patient states that he has had wounds on his left foot since 2007, has been self-caring and has been followed by several physicians. He states that he has been using Aquacel on it and it has been doing better with that. He states that he does not believe it is infected and does not want to be imaged on the left foot. PAST MEDICAL HISTORY: Significant for sickle cell disease, history of seizures, diastolic heart disease, and pulmonary hypertension. SOCIAL HISTORY: Noncontributory. MEDICATIONS: Per SEP. ALLERGIES: He has allergies to ampicillin, ketorolac, morphine, pentamidine isethionate, and phenytoin. REVIEW OF SYSTEMS: HEENT: The patient denies any headaches, blurred vision, or ringing in the ears. CARDIORESPIRATORY: Currently, he denies any chest pain. Admits to some shortness of breath. GENITOURINARY: The patient denies any urgency, frequency, burning upon urination, or hematuria. GASTROINTESTINAL: The patient denies any constipation, diarrhea, or blood in the stool. PHYSICAL EXAMINATION: VITAL SIGNS: Temperature is 98.0, pulse 83, respirations 18, blood pressure is 128/70, and saturating 100% on six liters. EXTREMITIES: Lower extremity physical exam, vascular, 2+ palpable dorsalis pedis and posterior tibial arteries bilaterally. Feet are equally warm. No edema or cyanosis noted. DERMATOLOGICAL: There is a full-thickness ulceration noted on the dorsolateral aspect of the left foot. There is no bone or tendon exposed. There is no signs of acute infection. Wound base is granular. There is some dry dressing on the dorsum of the wound. The patient appears to be at his wound. Remaining dermatological exam is unremarkable. MUSCULOSKELETAL: The patient has 4/5 muscle strength noted in the anterolateral and posterior muscle groups of bilateral lower extremities. The patient states he ambulates with a walker. He has contractures of his toes on the left foot. NEUROLOGICAL: Protective threshold is intact. LABORATORY DATA: White blood cell count is 14.7, hemoglobin and hematocrit is 8.3 and 24.7, and platelet count is 250. INR is 1.2. Potassium is 4.7, BUN is 23, creatinine is 0.8, and glucose is 103. Albumin is 3.3. No lower extremity imaging is noted. ASSESSMENT: 1. Possible osteomyelitis of the left foot due to the chronic nature of wound. 2. Non-pressure ulcer of the left foot at the level of muscle. 3. Sickle cell disease. PLAN: 1. MRI of the left foot will be ordered without contrast. 2. Ordered wound care consisting of cleansing of the site with normal saline, patting it dry, and applying Xeroform and a dry dressing daily. 3. We will follow. Thank you for the courtesy of this consultation, Dr. Mckenna. Kevin Reese D.P.M. DR: JUAN JOSE JOB#: [id number] CC:
[2017-09-20] VITALS: BP 103/65
[2017-09-20] MEDS: DiphenhydrAMINE 50mg/ml Inj IVP PRN ×3 (03:45→18:26)
[2017-09-20] MEDS: HYDROmorphone 2 MG in NS 50 ML IVPB PRN ×3 (03:46→19:56)
[2017-09-20 04:00] VITALS: BP 111/74
--- NOTE | 2017-09-20 05:30 | Consultation ---
DATE OF CONSULTATION: 09/19/2017 NOTE: "POOR AUDIO" HEMATOLOGY/ONCOLOGY CONSULTATION CONSULTING PHYSICIAN: Marco Dutton M.D. REQUESTING PHYSICIAN: Hanna Mckenna M.D. IDENTIFICATION DATA: Dear Dr. Mckenna, The patient is a pleasant 41-year-old male with past medical history significant for seizure disorder, sickle cell disease, has been admitted multiple times in the past, at this time presents to the ER, brought in by ambulance . The patient again has a history of sickle cell disease, has been taking phenobarbital, complaining of generalized body pain, however, has extremely high . Hematology Service was consulted for further evaluation and treatment. PAST MEDICAL HISTORY: Sickle cell disease. PAST SURGICAL HISTORY: None noted. MEDICATIONS: Folic acid, Neurontin, Dilaudid, hydroxyurea, methadone, phenobarbital, and Xarelto. ALLERGIES: , ampicillin, ketorolac, morphine, and phenytoin. FAMILY HISTORY: Noncontributory. REVIEW OF SYSTEMS: CONSTITUTIONAL: . SKIN: No rashes, bumps, or itching. HEENT: No headache, hearing or vision changes. BREASTS: No lumps, pain, or discharge. PULMONARY: No cough, sputum, or shortness of breath. GASTROINTESTINAL: No nausea, vomiting, or diarrhea. GENITOURINARY: No dysuria, frequency, or urgency. MUSCULOSKELETAL: No joint swelling, muscle pain, or trauma. PHYSICAL EXAMINATION: VITAL SIGNS: Reviewed. GENERAL: No acute distress. PULMONARY: Decreased breath sounds. CARDIOVASCULAR: Regular rate. No S3 or S4. ABDOMEN: Soft, nontender, and nondistended. EXTREMITIES: No cyanosis, swelling, or edema. LABORATORY DATA: INR 1.2, PTT 26. WBC 14.7, hemoglobin 8.3, and platelet count 250,000. BUN is , creatinine is 0.8. . ASSESSMENT AND RECOMMENDATION: 1. Sickle cell, currently does not appear to be in significant crisis. elevated. Continue to closely monitor. 2. Seizure at home, closely monitor. No improvement. Apparently has been seen by Neurology service . 3. Anemia due to underlying chronic disease, closely monitor, due to sickle cell. 4. Coagulopathy, secondary to outpatient blood thinner which the patient has been on. Most recently saw the patient back in August. The patient had been taking Xarelto coagulopathy. 5. Nausea and vomiting. Jazmine on a p.r.n. basis. I appreciate the consultation. Marco Dutton M.D. DR: Joe JOB#: [id number] CC:
[2017-09-20 08:00] VITALS: BP 119/77
--- NOTE | 2017-09-20 08:48 | General Progress Note ---
Assessment/Plan Assessment/Plan (1) Intractable pain (2) Avascular necrosis of femur head, left (3) Sickle cell crisis (4) Avascular necrosis of femur head, right Patient will be continued on methadone and Dilaudid Pt was d/w Dr. Perera and he concurred. Thank you for the courtesy of this consultation. Subjective Date patient seen: Sep 20, 2017 Time patient seen: 07:15 - am Allergies: Coded Allergies: PENTAMIDINE ISETHIONATE (Verified Allergy, Severe, palpitations, 08/27/17) AMPICILLIN (Verified Allergy, Unknown, 08/03/16) KETOROLAC (Verified Allergy, Unknown, 08/03/16) MORPHINE (Verified Allergy, Unknown, 08/03/16) PHENYTOIN (Verified Allergy, Unknown, 08/03/16) Subjective Constitutional: Reports: chills HEENT: Denies: blurred vision, double vision, ear discharge, ear pain, eye pain , mouth pain, mouth swelling, nose congestion, nose pain, tearing, throat pain, throat swelling Cardiovascular: Denies: chest pain, edema, irregular heart rate, lightheadedness, palpitations, syncope Respiratory: Denies: SOB at rest, SOB with excertion, cough, orthopnea, shortness of breath, sputum, stridor, wheezing Gastrointestinal/Abdominal: Denies: abdomen distended, abdominal pain, black stools, blood in stool, constipated, diarrhea, difficulty swallowing, nausea, poor appetite, poor fluid intake, rectal bleeding, tarry stools, vomiting Genitourinary: Denies: burning, discharge, flank pain, frequency, hematuria, incontinence, pain, urgency 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: Denies: anxiety, depressed, emotional problems, headache, numbness, paresthesia, pre-existing deficit, seizure, tingling, tremors, weakness Endocrine: Reports: other, Denies: excessive sweating, flushing, increased hunger, increased thirst, increased urine, intolerance to cold, intolerance to heat, unexplained weight gain, unexplained weight loss Hematologic/Lymphatic: Denies: anemia, easy bleeding, easy bruising Subjective Patient is a known patient from prior admission returned on the care of Dr. Mckenna. He is on Methadone 50mg Tab Q6H PRN and Dilaudid 2mg IVPB Q3H PRN. At this time patient is in bed in no signs of pain or distress. Objective Last 24 Hour Vital Signs Date Time Temp Pulse Resp B/P (MAP) Pulse Ox O2 Delivery O2 Flow Rate FiO2 09/20/17 04:02 76 09/20/17 04:00 97.9 78 20 111/74 100 Nasal Cannula 6.0 97.9 09/20/17 00:01 80 09/20/17 00:00 98.1 86 20 103/65 98 Nasal Cannula 6.0 98.1 09/19/17 20:00 98.1 74 20 129/87 100 98.1 09/19/17 19:50 73 09/19/17 16:00 73 09/19/17 16:00 97.1 73 18 127/84 100 Nasal Cannula 6.0 97.1 09/19/17 13:26 98.0 09/19/17 12:00 97.0 83 18 128/70 100 Nasal Cannula 6.0 97.0 09/19/17 12:00 67 Intake and Output 09/19/17 09/20/17 19:00 07:00 Intake Total 708 ml 566 ml Output Total 1150 ml Balance 708 ml -584 ml Intake Oral 708 ml 566 ml Output Urine Total 1150 ml # Voids 2 Height (Feet): 5 Height (Inches): 11.00 Weight (Pounds): 157 Objective General Appearance: no apparent distress, alert EENT: PERRL/EOMI, normal ENT inspection Neck: non-tender, normal alignment Cardiovascular: normal rate, regular rhythm Respiratory/Chest: decreased breath sounds Abdomen: non tender, soft Edema: no edema noted Arm (L), no edema noted Arm (R), no edema noted Leg (L), no edema noted Leg (R), no edema noted Pedal (L), no edema noted Pedal (R), no edema noted Generalized Neurologic: alert, oriented x 3 Skin: warm/dry ANTIONE PHILLIPS Sep 20, 2017 08:48
[2017-09-20] MEDS: Heparin 5000 units/ml inj SUBQ SCH ×2 (09:00→21:00)
--- NOTE | 2017-09-20 09:24 | Pulmonology Progress Note ---
Assessment/Plan Problems: (1) Uncontrolled seizures (2) Intractable pain (3) Sickle cell crisis (4) Pulmonary HTN (5) severe diastolic heart disease Assessment/Plan no more seizures still c/o of lots of pain check LD, bilirubin symptomatic treatment IV fluids Subjective ROS Limited/Unobtainable: No Constitutional: Reports: no symptoms HEENT: Repors: no symptoms Respiratory: Reports: no symptoms Allergies: Coded Allergies: PENTAMIDINE ISETHIONATE (Verified Allergy, Severe, palpitations, 08/27/17) AMPICILLIN (Verified Allergy, Unknown, 08/03/16) KETOROLAC (Verified Allergy, Unknown, 08/03/16) MORPHINE (Verified Allergy, Unknown, 08/03/16) PHENYTOIN (Verified Allergy, Unknown, 08/03/16) Objective Last 24 Hour Vital Signs Date Time Temp Pulse Resp B/P (MAP) Pulse Ox O2 Delivery O2 Flow Rate FiO2 09/20/17 04:02 76 09/20/17 04:00 97.9 78 20 111/74 100 Nasal Cannula 6.0 97.9 09/20/17 00:01 80 09/20/17 00:00 98.1 86 20 103/65 98 Nasal Cannula 6.0 98.1 09/19/17 20:00 98.1 74 20 129/87 100 98.1 09/19/17 19:50 73 09/19/17 16:00 73 09/19/17 16:00 97.1 73 18 127/84 100 Nasal Cannula 6.0 97.1 09/19/17 13:26 98.0 09/19/17 12:00 97.0 83 18 128/70 100 Nasal Cannula 6.0 97.0 09/19/17 12:00 67 Intake and Output 09/19/17 09/20/17 19:00 07:00 Intake Total 708 ml 566 ml Output Total 1150 ml Balance 708 ml -584 ml Intake Oral 708 ml 566 ml Output Urine Total 1150 ml # Voids 2 Objective General Appearance: WD/WN Lines, tubes and drains: peripheral HEENT: normocephalic, atraumatic Neck: non-tender, normal alignment Respiratory/Chest: chest wall non-tender, lungs clear Breasts: no masses Cardiovascular/Chest: normal peripheral pulses, normal rate Abdomen: normal bowel sounds, non tender Genitourinary/Rectal: normal genital exam, heme negative stool Extremities: normal range of motion, non-tender Skin Exam: normal pigmentation Current Medications Medications (Trade) Dose Ordered Sig/Anthony Route PRN Reason Start Time Stop Time Status Last Admin Dose Admin Acetaminophen (Tylenol) 650 mg Q4H PRN ORAL fever 09/18/17 21:30 10/18/17 21:29 Al Hydroxide/Mg Hydroxide (Mylanta II) 30 ml Q6H PRN ORAL dyspepsia 09/18/17 21:30 10/18/17 21:29 Dextrose (Dextrose 50%) STAT PRN IV Hypoglycemia 09/18/17 21:30 10/18/17 21:29 Diphenhydramine HCl (Benadryl) 50 mg Q6H PRN IVP Itching 09/19/17 09:00 10/19/17 08:59 09/20/17 03:45 Heparin Sodium (Porcine) (Heparin 5000 units/ml) 5,000 units EVERY 12 HOURS SUBQ 09/19/17 09:00 10/19/17 08:59 09/19/17 20:56 Hydromorphone HCl 2 mg/Sodium Chloride 51 ml @ 200 mls/hr EVERY 3 HOURS PRN IVPB pain 7-10 09/18/17 21:30 09/25/17 21:29 09/20/17 03:46 Levetiracetam (Keppra) 500 mg Q12HR ORAL 09/19/17 13:00 10/19/17 12:59 09/19/17 22:06 Lorazepam (Ativan 2mg/ml 1ml) 2 mg EVERY HOUR PRN IV seizures 09/18/17 21:30 09/25/17 21:29 Methadone HCl (Methadone HCl) 50 mg Q6H PRN ORAL Severe Breakthrough Pain 09/19/17 11:30 09/26/17 11:29 09/20/17 06:44 Ondansetron HCl (Zofran) 4 mg Q6H PRN IVP Nausea & Vomiting 09/18/17 21:30 10/18/17 21:29 Polyethylene Glycol (Miralax) 17 gm HSPRN PRN ORAL Constipation 09/18/17 21:30 10/18/17 21:29 Zolpidem Tartrate (Ambien) 5 mg HSPRN PRN ORAL Insomnia 09/18/17 21:30 09/25/17 21:29 KENNEDY MOORE Sep 20, 2017 09:24
[2017-09-20 12:00] VITALS: BP 124/67
--- NOTE | 2017-09-20 12:29 | Neurology Progress Note ---
Interim History Interim History ROS Limited/Unobtainable: No Complaints: alot of pain Events: no sz noted Interim History EEG no sz Objective Physical Exam Last Vital Signs Date Time Temp Pulse Resp B/P (MAP) Pulse Ox O2 Delivery O2 Flow Rate FiO2 09/20/17 10:29 97.5 09/20/17 08:00 69 09/20/17 08:00 18 119/77 98 Nasal Cannula 6.0 General: no acute distress, other - ill appearing Head: normocophalic, atraumatic Neck: no rigidity Neurologic Exam Mental Status: awake, alert Speech: normal speech, no dysarthia Language: normal language, no aphasia Cranial Nerve II: fundus normal, visual mejia, no papilledema Cranial Nerves III, IV, : PERRLA, EOMI, pupils Cranial Nerve V: normal facial sensations, temporales function normal, masseters function normal, pterygoids function normal Cranial Nerve VII: no facial asymmetry, normal facial expressions Cranial Nerve VIII: normal hearing, no nystagmus Cranial Nerve IX: normal palate elevation, gag response Cranial Nerve X: no voice hoarseness Cranial Nerve XI: SCM symmetric, trapezii function normal Cranial Nerve XII: tongue midline, no tongue atrophy/fasciculations Motor System: no involuntary movement, no muscle wasting Sensory: normal pinprick Coordination: normal finger to nose bilaterally Deep Tendon Reflexes: 1+ bicep (L), 1+ bicep (R), 1+ tricep (L), 1+ tricep (R) , 1+ brachioradialis (L), 1+ brachioradialis (R), 1+ knee (L), 1+ knee (R), 1+ ankle (L), 1+ ankle (R) Reflexes: mute plantar (L), mute plantar (R) Impression/Recommendations Problems: (1) Uncontrolled seizures (2) Sickle cell disease Status: unchanged Recommendations #[id number] keppra 250mg bid neuro stable AMY MUSTAFA Sep 20, 2017 12:29
--- NOTE | 2017-09-20 12:40 | Consultation ---
History of Present Illness General Date patient seen: Sep 19, 2017 Chief Complaint: Seizure Present Illness HPI 41-year-old male with seizure disorder, sickle cell disease, presents to the ER. The pt pw depressed mood anhedonia decrease energy and anxiety. insomnia. no si/hi Allergies: Coded Allergies: PENTAMIDINE ISETHIONATE (Verified Allergy, Severe, palpitations, 08/27/17) AMPICILLIN (Verified Allergy, Unknown, 08/03/16) KETOROLAC (Verified Allergy, Unknown, 08/03/16) MORPHINE (Verified Allergy, Unknown, 08/03/16) PHENYTOIN (Verified Allergy, Unknown, 08/03/16) Medication History Scheduled Folic Acid* (Folic Acid*), 1 MG ORAL DAILY Gabapentin* (Gabapentin*), 500 MG ORAL THREE TIMES A DAY Hydromorphone HCl (Dilaudid), 12 MG ORAL EVERY 4 HOURS, (Reported) Hydroxyurea* (Hydrea*), 500 MG PO BID Methadone Hcl* (Methadone*), 50 MG PO Q6HR, (Reported) Phenobarbital* (Phenobarbital*), 30 MG ORAL THREE TIMES A DAY, (Reported) Rivaroxaban (Xarelto), 15 MG ORAL Q12HR Scheduled PRN Diphenhydramine HCl (Benadryl), 50 MG PO Q4HR PRN for Itching, (Reported) Patient History Limited by: medical condition History Provided By: Patient, PMD Healthcare decision maker Resuscitation status Advanced Directive on File Past Medical/Surgical History Past Medical/Surgical History: (1) Dyspnea (2) Purulent bronchitis (3) Leukocytosis (4) Interstitial lung disease (5) Avascular necrosis of femur head, right (6) Avascular necrosis of femur head, left (7) Acute deep vein thrombosis (DVT) of both lower extremities (8) Pneumonia (9) Seizure disorder (10) Sickle cell crisis (11) Sickle cell disease (12) Pulmonary HTN (13) severe diastolic heart disease (14) Uncontrolled seizures (15) Intractable pain Review of Systems Psychiatric: Reports: prior hx, anxiety, depressed feelings, emotional problems Physical Exam General Appearance: no apparent distress, alert, agitated Neurologic: alert, oriented x 3, responsive, depressed affect Last 24 Hour Vital Signs Date Time Temp Pulse Resp B/P (MAP) Pulse Ox O2 Delivery O2 Flow Rate FiO2 09/20/17 10:29 97.5 09/20/17 09:59 97.9 09/20/17 08:00 69 09/20/17 08:00 97.1 67 18 119/77 98 Nasal Cannula 6.0 97.1 09/20/17 04:02 76 09/20/17 04:00 97.9 78 20 111/74 100 Nasal Cannula 6.0 97.9 09/20/17 00:01 80 09/20/17 00:00 98.1 86 20 103/65 98 Nasal Cannula 6.0 98.1 09/19/17 20:00 98.1 74 20 129/87 100 98.1 09/19/17 19:50 73 09/19/17 16:00 73 09/19/17 16:00 97.1 73 18 127/84 100 Nasal Cannula 6.0 97.1 09/19/17 13:26 98.0 Intake and Output 09/19/17 09/20/17 19:00 07:00 Intake Total 708 ml 566 ml Output Total 1150 ml Balance 708 ml -584 ml Intake Oral 708 ml 566 ml Output Urine Total 1150 ml # Voids 2 Height (Feet): 5 Height (Inches): 11.00 Weight (Pounds): 157 Medications Current Medications Medications (Trade) Dose Ordered Sig/Anthony Route PRN Reason Start Time Stop Time Status Last Admin Dose Admin Acetaminophen (Tylenol) 650 mg Q4H PRN ORAL fever 09/18/17 21:30 10/18/17 21:29 Al Hydroxide/Mg Hydroxide (Mylanta II) 30 ml Q6H PRN ORAL dyspepsia 09/18/17 21:30 10/18/17 21:29 Dextrose (Dextrose 50%) STAT PRN IV Hypoglycemia 09/18/17 21:30 10/18/17 21:29 Diphenhydramine HCl (Benadryl) 50 mg Q6H PRN IVP Itching 09/19/17 09:00 10/19/17 08:59 09/20/17 09:59 Heparin Sodium (Porcine) (Heparin 5000 units/ml) 5,000 units EVERY 12 HOURS SUBQ 09/19/17 09:00 10/19/17 08:59 09/19/17 20:56 Hydromorphone HCl 2 mg/Sodium Chloride 51 ml @ 200 mls/hr EVERY 3 HOURS PRN IVPB pain 7-10 09/18/17 21:30 09/25/17 21:29 09/20/17 09:59 Levetiracetam (Keppra) 500 mg Q12HR ORAL 09/19/17 13:00 10/19/17 12:59 09/20/17 09:59 Lorazepam (Ativan 2mg/ml 1ml) 2 mg EVERY HOUR PRN IV seizures 09/18/17 21:30 09/25/17 21:29 Methadone HCl (Methadone HCl) 50 mg Q6H PRN ORAL Severe Breakthrough Pain 09/19/17 11:30 09/26/17 11:29 09/20/17 06:44 Mirtazapine (Remeron) 15 mg BEDTIME ORAL 09/20/17 21:00 10/20/17 20:59 Ondansetron HCl (Zofran) 4 mg Q6H PRN IVP Nausea & Vomiting 09/18/17 21:30 10/18/17 21:29 Polyethylene Glycol (Miralax) 17 gm HSPRN PRN ORAL Constipation 09/18/17 21:30 10/18/17 21:29 Zolpidem Tartrate (Ambien) 5 mg HSPRN PRN ORAL Insomnia 09/18/17 21:30 09/25/17 21:29 Assessment/Plan Status: stable, progressing Assessment/Plan MDD, anxiety d/o -remeron 15mg qhs Deedee Sims M.D. Sep 20, 2017 12:40
--- NOTE | 2017-09-20 13:25 | Podiatric Progress Note ---
Assessment/Plan Patient Yevgeniy Barrett is a 41 year old male who was admitted on Sep 18, 2017 at 20:10 with Problems: Assessment/Plan A/ 1) Osteo? 2) Nonpressure ulcer left foot to level of muscle 3) Sickle Cell Dz P/ 1) MRI of left foot without contrast - pending. MRI machine was down this AM 2) Patient refused dressings. Cont wound care ordered. D/W nursing 3) Will follow Subjective Allergies: Coded Allergies: PENTAMIDINE ISETHIONATE (Verified Allergy, Severe, palpitations, 08/27/17) AMPICILLIN (Verified Allergy, Unknown, 08/03/16) KETOROLAC (Verified Allergy, Unknown, 08/03/16) MORPHINE (Verified Allergy, Unknown, 08/03/16) PHENYTOIN (Verified Allergy, Unknown, 08/03/16) Subjective Resting Objective Exam Last 24 Hour Vital Signs Date Time Temp Pulse Resp B/P (MAP) Pulse Ox O2 Delivery O2 Flow Rate FiO2 09/20/17 10:29 97.5 09/20/17 09:59 97.9 09/20/17 08:00 69 09/20/17 08:00 97.1 67 18 119/77 98 Nasal Cannula 6.0 97.1 09/20/17 04:02 76 09/20/17 04:00 97.9 78 20 111/74 100 Nasal Cannula 6.0 97.9 09/20/17 00:01 80 09/20/17 00:00 98.1 86 20 103/65 98 Nasal Cannula 6.0 98.1 09/19/17 20:00 98.1 74 20 129/87 100 98.1 09/19/17 19:50 73 09/19/17 16:00 73 09/19/17 16:00 97.1 73 18 127/84 100 Nasal Cannula 6.0 97.1 09/19/17 13:26 98.0 Kevin Reese DPM Sep 20, 2017 13:25
[2017-09-20 16:00] VITALS: BP 100/59
--- NOTE | 2017-09-20 17:40 | Wound Care Consultation ---
Wound Assessment Wound Assessment : Wound Number: 1 Wound Present on Admission: Yes New Wound: No Status Change of Wound: No Wound Location Body Site Modif: left, dorsal Wound Location Body Site: foot Wound Type: other - FULL THICKNESS OPEN WOUND non pressure Too Test: Does not Too Wound Thickness: Full Thickness Wound Length: 11.0 Wound Width: 3.5 Wound Depth: 0.4 Percent of Wound [place]/Red: 90 Percent of Wound Bed Yellow/Wh: 10 Wound Drainage Description: Serosanguineous Wound Drainage Amount: Moderate Wound Drainage Odor: None/Absent Tissue Surrounding Wound: Macerated Wound General Appearance: Reddened, Draining Wound Comment #1 left dorsal foot non pressure full thickness wound patient is under the care of dr.nejad alex SHEA orders patient refused to have recommended treatment per md at this time ,site cleansed and dry dressing applied as per pt request. GUALBERTO RIVERA Sep 20, 2017 17:40
[2017-09-20] MEDS ORDERED: Mylanta II UD 30ml ORAL PRN (18:44)
[2017-09-20] MEDS ORDERED: Miralax 17gm pkt ORAL PRN (18:47)
[2017-09-20] MEDS ORDERED: Zolpidem 5mg tab ORAL PRN (18:47)
[2017-09-20] MEDS ORDERED: LORazepam Inj 2mg/ml 1ml IV PRN (19:00)
[2017-09-20 20:00] VITALS: BP 95/63
--- NOTE | 2017-09-20 21:00 | Progress Note ---
DATE: 09/20/2017 SUBJECTIVE: Apparently, the patient became agitated last night. The patient's nurse was stating that the his medication was not given to the patient appropriately. Therefore, the patient was not able to sleep last night as pain medication was not administered appropriately. The patient is depressed, has anhedonia, worthlessness, difficulty with sleep, poor insight and judgment into his mental condition. He is complaining of pain. MENTAL STATUS EXAMINATION: The patient is alert and oriented times self, place, and situation he is in. Mood is depressed. Affect is constricted, congruent with mood. Thought process is concrete. Thought content, no suicidal or homicidal ideation. Cognition is intact. Insight and judgment is poor. ASSESSMENT: 1. Major depressive disorder. 2. Sickle cell anemia. PLAN: We will start the patient on Remeron 15 mg, provide the patient with reality orientation and supportive therapy. Deedee Sims M.D. DR: SHANE JOB#: [id number] CC:
[2017-09-21] VITALS: BP 104/67
[2017-09-21] MEDS: HYDROmorphone 2 MG in NS 50 ML IVPB PRN ×2 (00:13→06:39)
[2017-09-21] MEDS: DiphenhydrAMINE 50mg/ml Inj IVP PRN ×2 (00:36→06:38)
--- NOTE | 2017-09-21 01:49 | General Progress Note ---
Assessment/Plan Assessment/Plan 1. Sickle cell, currently does not appear to be in significant crisis. --> Continue to closely monitor. --> Trend cbc 2. Seizure at home, closely monitor. No improvement. --> Apparently has been seen by Neurology service. 3. Anemia due to underlying chronic disease, closely monitor, due to sickle cell. --> Blood transfusion not required unless symptomatic or hgb <7 --> Monitor and trend cbc. --> Last hemoglobin level was 8.3 4. Coagulopathy, secondary to outpatient blood thinner which the patient has been on. --> Most recently saw the patient back in August. --> The patient had been taking Xarelto for coagulopathy. 5. Nausea and vomiting. Zofran on a p.r.n. basis. Subjective Date patient seen: Sep 20, 2017 Constitutional: Denies: no symptoms, chills, diaphoresis, fever, malaise, weakness, other HEENT: Denies: no symptoms, eye pain, blurred vision, tearing, double vision, ear pain, ear discharge, nose pain, nose congestion, throat pain, throat swelling, mouth pain, mouth swelling, other Cardiovascular: Denies: no symptoms, chest pain, edema, irregular heart rate, lightheadedness, palpitations, syncope, other Respiratory: Denies: no symptoms, cough, orthopnea, shortness of breath, SOB with excertion, SOB at rest, sputum, stridor, wheezing, other Gastrointestinal/Abdominal: Denies: no symptoms, abdomen distended, abdominal pain, black stools, tarry stools, blood in stool, constipated, diarrhea, difficulty swallowing, nausea, poor appetite, poor fluid intake, rectal bleeding , vomiting, other Genitourinary: Denies: no symptoms, burning, discharge, frequency, flank pain, hematuria, incontinence, pain, urgency, other 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: Denies: no symptoms, anxiety, depressed, emotional problems, headache, numbness, paresthesia, pre-existing deficit, seizure, tingling, tremors, weakness, other Hematologic/Lymphatic: Reports: anemia Allergies: Coded Allergies: PENTAMIDINE ISETHIONATE (Verified Allergy, Severe, palpitations, 08/27/17) AMPICILLIN (Verified Allergy, Unknown, 08/03/16) KETOROLAC (Verified Allergy, Unknown, 08/03/16) MORPHINE (Verified Allergy, Unknown, 08/03/16) PHENYTOIN (Verified Allergy, Unknown, 08/03/16) Subjective No major events. No fever or chills. Objective Last 24 Hour Vital Signs Date Time Temp Pulse Resp B/P (MAP) Pulse Ox O2 Delivery O2 Flow Rate FiO2 09/21/17 00:43 97.1 09/21/17 00:13 97.1 09/21/17 00:00 97.9 76 18 104/67 97 97.9 09/20/17 20:00 94 Nasal Cannula 6.0 09/20/17 20:00 99.9 74 19 95/63 94 99.9 09/20/17 19:56 97.1 09/20/17 16:00 97.1 68 18 100/59 100 Nasal Cannula 6.0 97.1 09/20/17 12:00 97.1 74 18 124/67 98 Nasal Cannula 6.0 97.1 09/20/17 12:00 74 09/20/17 10:29 97.5 09/20/17 09:59 97.9 09/20/17 08:00 69 09/20/17 08:00 97.1 67 18 119/77 98 Nasal Cannula 6.0 97.1 09/20/17 04:02 76 09/20/17 04:00 97.9 78 20 111/74 100 Nasal Cannula 6.0 97.9 Intake and Output 09/20/17 09/21/17 18:59 06:59 Intake Total 944 ml 102 ml Output Total 200 ml Balance 744 ml 102 ml Intake Oral 944 ml IV Total 102 ml Output Urine Total 200 ml # Voids 1 Labs Test 09/18/17 19:45 09/18/17 20:40 Urine Color Pale yellow Urine Appearance Clear Urine pH 7 (4.5-8.0) Urine Specific [place] 1.010 (1.005-1.035) Urine Protein 3+ (NEGATIVE) Urine Glucose (UA) Negative (NEGATIVE) Urine Ketones Negative (NEGATIVE) Urine Occult Blood Negative (NEGATIVE) Urine Nitrite Negative (NEGATIVE) Urine Bilirubin Negative (NEGATIVE) Urine Urobilinogen Normal MG/DL (0.0-1.0) Urine Leukocyte Esterase 1+ (NEGATIVE) Urine RBC 0-2 /HPF (0 - 0) Urine WBC 2-4 /HPF (0 - 0) Urine Squamous Epithelial Cells None /LPF (NONE/OCC) Urine Bacteria Few /HPF (NONE) White Blood Count 14.7 K/UL (4.8-10.8) Red Blood Count 2.72 M/UL (4.70-6.10) Hemoglobin 8.3 G/DL (14.2-18.0) Hematocrit 24.7 % (42.0-52.0) Mean Corpuscular Volume 91 FL (80-99) Mean Corpuscular Hemoglobin 30.4 PG (27.0-31.0) Mean Corpuscular Hemoglobin Concent 33.6 G/DL (32.0-36.0) Red Cell Distribution Width 15.1 % (11.6-14.8) Platelet Count 250 K/UL (150-450) Mean Platelet Volume 6.9 FL (6.5-10.1) Neutrophils (%) (Auto) 51.8 % (45.0-75.0) Lymphocytes (%) (Auto) 30.5 % (20.0-45.0) Monocytes (%) (Auto) 6.6 % (1.0-10.0) Eosinophils (%) (Auto) 10.1 % (0.0-3.0) Basophils (%) (Auto) 1.0 % (0.0-2.0) Reticulocyte Count 1.9 % (0.0-2.0) Prothrombin Time 12.5 SEC (9.30-11.50) Prothromb Time International Ratio 1.2 (0.9-1.1) Activated Partial Thromboplast Time 46 SEC (23-33) Sodium Level 141 MMOL/L (136-145) Potassium Level 4.7 MMOL/L (3.5-5.1) Chloride Level 104 MMOL/L (98-107) Carbon Dioxide Level 33 MMOL/L (21-32) Anion Gap 4 mmol/L (5-15) Blood Urea Nitrogen 23 mg/dL (7-18) Creatinine 0.8 MG/DL (0.55-1.30) Estimat Glomerular Filtration Rate > 60 mL/min (>60) Glucose Level 103 MG/DL (74-106) Calcium Level 9.7 MG/DL (8.5-10.1) Total Bilirubin 0.7 MG/DL (0.2-1.0) Aspartate Amino Transf (AST/SGOT) 44 U/L (15-37) Alanine Aminotransferase (ALT/SGPT) 64 U/L (12-78) Alkaline Phosphatase 154 U/L (46-116) Lactate Dehydrogenase 276 U/L (81-234) Troponin I 0.000 ng/mL (0.000-0.056) Total Protein 6.5 G/DL (6.4-8.2) Albumin 3.3 G/DL (3.4-5.0) Globulin 3.2 g/dL Albumin/Globulin Ratio 1.0 (1.0-2.7) Phenobarbital Level 1.9 ug/mL (15-40) Height (Feet): 5 Height (Inches): 11.00 Weight (Pounds): 157 Marco Dutton Sep 21, 2017 01:49
[2017-09-21 04:00] VITALS: BP 138/91
[2017-09-21 07:31] LABS: BASOPHILS % (AUTO) 0.6 % (0.0-2.0); EOSINOPHILS % (AUTO) 10.1 % (0.0-3.0); HEMATOCRIT 26.3 % (42.0-52.0); HEMOGLOBIN 8.8 G/DL (14.2-18.0); LYMPHOCYTES % (AUTO) 35.7 % (20.0-45.0); MEAN CORPUSCULAR VOLUME 91 FL (80-99); NEUTROPHILS % (AUTO) 48.6 % (45.0-75.0); PLATELET COUNT 357 K/UL (150-450); RED BLOOD COUNT 2.88 M/UL (4.70-6.10); WHITE BLOOD COUNT 14.5 K/UL (4.8-10.8)
[2017-09-21 08:15] LABS: ALANINE AMINOTRANSFERASE 79 U/L (12-78); ALBUMIN 3.3 G/DL (3.4-5.0); ALBUMIN/GLOBULIN RATIO 0.9 (1.0-2.7); ALKALINE PHOSPHATASE 172 U/L (46-116); ANION GAP 4 mmol/L (5-15); ASPARTATE AMINO TRANSFERASE 52 U/L (15-37); BILIRUBIN,TOTAL 0.6 MG/DL (0.2-1.0); BLOOD UREA NITROGEN 25 mg/dL (7-18); CALCIUM 9.9 MG/DL (8.5-10.1); CARBON DIOXIDE 31 MMOL/L (21-32); CHLORIDE 104 MMOL/L (98-107); CREATININE 0.8 MG/DL (0.55-1.30); PHOSPHORUS 4.2 MG/DL (2.5-4.9); POTASSIUM 4.9 MMOL/L (3.5-5.1); SODIUM 139 MMOL/L (136-145)
[2017-09-21 08:40] VITALS: BP 94/64
--- NOTE | 2017-09-21 08:44 | General Progress Note ---
Assessment/Plan Assessment/Plan (1) Intractable pain (2) Avascular necrosis of femur head, left (3) Sickle cell crisis (4) Avascular necrosis of femur head, right Patient will be continued on methadone and Dilaudid Pt was d/w Dr. Perera and he concurred. Subjective Date patient seen: Sep 21, 2017 Time patient seen: 07:00 - am Allergies: Coded Allergies: PENTAMIDINE ISETHIONATE (Verified Allergy, Severe, palpitations, 08/27/17) AMPICILLIN (Verified Allergy, Unknown, 08/03/16) KETOROLAC (Verified Allergy, Unknown, 08/03/16) MORPHINE (Verified Allergy, Unknown, 08/03/16) PHENYTOIN (Verified Allergy, Unknown, 08/03/16) Subjective Constitutional: Reports: chills HEENT: Denies: blurred vision, double vision, ear discharge, ear pain, eye pain , mouth pain, mouth swelling, nose congestion, nose pain, tearing, throat pain, throat swelling Cardiovascular: Denies: chest pain, edema, irregular heart rate, lightheadedness, palpitations, syncope Respiratory: Denies: SOB at rest, SOB with excertion, cough, orthopnea, shortness of breath, sputum, stridor, wheezing Gastrointestinal/Abdominal: Denies: abdomen distended, abdominal pain, black stools, blood in stool, constipated, diarrhea, difficulty swallowing, nausea, poor appetite, poor fluid intake, rectal bleeding, tarry stools, vomiting Genitourinary: Denies: burning, discharge, flank pain, frequency, hematuria, incontinence, pain, urgency 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: Denies: anxiety, depressed, emotional problems, headache, numbness, paresthesia, pre-existing deficit, seizure, tingling, tremors, weakness Endocrine: Reports: other, Denies: excessive sweating, flushing, increased hunger, increased thirst, increased urine, intolerance to cold, intolerance to heat, unexplained weight gain, unexplained weight loss Hematologic/Lymphatic: Denies: anemia, easy bleeding, easy bruising Subjective Patient is in bed and shows no signs of pain or distress. His pain has been tolerated and reduced on the Methadone with Dilaudid. Objective Last 24 Hour Vital Signs Date Time Temp Pulse Resp B/P (MAP) Pulse Ox O2 Delivery O2 Flow Rate FiO2 09/21/17 08:40 98.4 78 20 94/64 99 98.4 09/21/17 07:10 98.1 09/21/17 06:39 98.1 09/21/17 04:00 98.1 68 19 138/91 99 98.1 09/21/17 00:13 97.1 09/21/17 00:00 97.9 76 18 104/67 97 97.9 09/21/17 00:00 97 Nasal Cannula 6.0 09/20/17 20:00 94 Nasal Cannula 6.0 09/20/17 20:00 99.9 74 19 95/63 94 99.9 09/20/17 19:56 97.1 09/20/17 16:00 97.1 68 18 100/59 100 Nasal Cannula 6.0 97.1 09/20/17 12:00 97.1 74 18 124/67 98 Nasal Cannula 6.0 97.1 09/20/17 12:00 74 09/20/17 10:29 97.5 09/20/17 09:59 97.9 Intake and Output 09/20/17 09/21/17 19:00 07:00 Intake Total 944 ml 553 ml Output Total 200 ml 2200 ml Balance 744 ml -1647 ml Intake Oral 944 ml 400 ml IV Total 153 ml Output Urine Total 200 ml 2200 ml # Voids 1 Laboratory Tests 09/21/17 05:00: White Blood Count 14.5H, Red Blood Count 2.88L, Hemoglobin 8.8L, Hematocrit 26.3L, Mean Corpuscular Volume 91, Mean Corpuscular Hemoglobin 30.7, Mean Corpuscular Hemoglobin Concent 33.6, Red Cell Distribution Width 15.0H, Platelet Count 357, Mean Platelet Volume 6.5, Neutrophils (%) (Auto) 48.6, Lymphocytes (%) (Auto) 35.7, Monocytes (%) (Auto) 5.0, Eosinophils (%) (Auto) 10.1H, Basophils (%) (Auto) 0.6, Sodium Level 139, Potassium Level 4.9, Chloride Level 104, Carbon Dioxide Level 31, Anion Gap 4L, Blood Urea Nitrogen 25H, Creatinine 0.8, Estimat Glomerular Filtration Rate > 60, Glucose Level 82, Calcium Level 9.9, Phosphorus Level 4.2, Magnesium Level 1.8, Total Bilirubin 0.6, Aspartate Amino Transf (AST/SGOT) 52H, Alanine Aminotransferase (ALT/SGPT) 79H, Alkaline Phosphatase 172H, Total Protein 6.9, Albumin 3.3L, Globulin 3.6, Albumin/Globulin Ratio 0.9L Height (Feet): 5 Height (Inches): 11.00 Weight (Pounds): 157 Objective General Appearance: no apparent distress, alert EENT: PERRL/EOMI, normal ENT inspection Neck: non-tender, normal alignment Cardiovascular: normal rate, regular rhythm Respiratory/Chest: decreased breath sounds Abdomen: non tender, soft Edema: no edema noted Arm (L), no edema noted Arm (R), no edema noted Leg (L), no edema noted Leg (R), no edema noted Pedal (L), no edema noted Pedal (R), no edema noted Generalized Neurologic: alert, oriented x 3 Skin: warm/dry ANTIONE PHILLIPS Sep 21, 2017 08:44
[2017-09-21] MEDS: Heparin 5000 units/ml inj SUBQ SCH (09:00)
[2017-09-21] MEDS ORDERED: ALPRAZolam 0.5mg tab ORAL PRN (09:00)
[2017-09-21] MEDS ORDERED: Heparin 5000 units/ml inj INJ ONE (09:51)
[2017-09-21] MEDS ORDERED: Heplock Flush 100 units/ml 3 ml syr INJ ONE (10:30)
--- NOTE | 2017-09-21 16:51 | General Progress Note ---
Assessment/Plan Status: stable, progressing Assessment/Plan mdd -cont current meds Subjective Date patient seen: Sep 21, 2017 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: Reports: anxiety, depressed, emotional problems Allergies: Coded Allergies: PENTAMIDINE ISETHIONATE (Verified Allergy, Severe, palpitations, 08/27/17) AMPICILLIN (Verified Allergy, Unknown, 08/03/16) KETOROLAC (Verified Allergy, Unknown, 08/03/16) MORPHINE (Verified Allergy, Unknown, 08/03/16) PHENYTOIN (Verified Allergy, Unknown, 08/03/16) Objective Last 24 Hour Vital Signs Date Time Temp Pulse Resp B/P (MAP) Pulse Ox O2 Delivery O2 Flow Rate FiO2 09/21/17 08:40 98.4 78 20 94/64 99 98.4 09/21/17 07:10 98.1 09/21/17 06:39 98.1 09/21/17 04:00 98.1 68 19 138/91 99 98.1 09/21/17 00:13 97.1 09/21/17 00:00 97.9 76 18 104/67 97 97.9 09/21/17 00:00 97 Nasal Cannula 6.0 09/20/17 20:00 94 Nasal Cannula 6.0 09/20/17 20:00 99.9 74 19 95/63 94 99.9 09/20/17 19:56 97.1 Intake and Output 09/20/17 09/21/17 19:00 07:00 Intake Total 944 ml 553 ml Output Total 200 ml 2200 ml Balance 744 ml -1647 ml Intake Oral 944 ml 400 ml IV Total 153 ml Output Urine Total 200 ml 2200 ml # Voids 1 Laboratory Tests 09/21/17 05:00: White Blood Count 14.5H, Red Blood Count 2.88L, Hemoglobin 8.8L, Hematocrit 26.3L, Mean Corpuscular Volume 91, Mean Corpuscular Hemoglobin 30.7, Mean Corpuscular Hemoglobin Concent 33.6, Red Cell Distribution Width 15.0H, Platelet Count 357, Mean Platelet Volume 6.5, Neutrophils (%) (Auto) 48.6, Lymphocytes (%) (Auto) 35.7, Monocytes (%) (Auto) 5.0, Eosinophils (%) (Auto) 10.1H, Basophils (%) (Auto) 0.6, Sodium Level 139, Potassium Level 4.9, Chloride Level 104, Carbon Dioxide Level 31, Anion Gap 4L, Blood Urea Nitrogen 25H, Creatinine 0.8, Estimat Glomerular Filtration Rate > 60, Glucose Level 82, Calcium Level 9.9, Phosphorus Level 4.2, Magnesium Level 1.8, Total Bilirubin 0.6, Aspartate Amino Transf (AST/SGOT) 52H, Alanine Aminotransferase (ALT/SGPT) 79H, Alkaline Phosphatase 172H, Total Protein 6.9, Albumin 3.3L, Globulin 3.6, Albumin/Globulin Ratio 0.9L Height (Feet): 5 Height (Inches): 11.00 Weight (Pounds): 157 General Appearance: no apparent distress, alert Deedee Sims M.D. Sep 21, 2017 16:51
--- NOTE | 2017-09-21 17:04 | Discharge Summary ---
Discharge Summary Hospital Course Date of Admission Sep 18, 2017 at 20:10 Date of Discharge Sep 21, 2017 at 10:45 Admitting Diagnosis SEIZURE,SICKLE CELL CRISIS ALETHEA Barrett is a 41 year old male who was admitted on Sep 18, 2017 at 20:10 for Seizure, Sickle Cell Crisis Hospital Course [id number] Discharge Discharge Disposition Patient was discharged to Home (01) Discharge Diagnoses: Brooklynn Borja NP Sep 21, 2017 17:04
--- NOTE | 2017-09-21 19:11 | Pulmonology Progress Note ---
Assessment/Plan Problems: (1) Uncontrolled seizures (2) Intractable pain (3) Sickle cell crisis (4) Pulmonary HTN (5) severe diastolic heart disease Assessment/Plan no more seizures pain is better controlled pt wants to leave to take care of some business symptomatic treatment IV fluids Subjective ROS Limited/Unobtainable: No Constitutional: Reports: no symptoms HEENT: Repors: no symptoms Respiratory: Reports: no symptoms Allergies: Coded Allergies: PENTAMIDINE ISETHIONATE (Verified Allergy, Severe, palpitations, 08/27/17) AMPICILLIN (Verified Allergy, Unknown, 08/03/16) KETOROLAC (Verified Allergy, Unknown, 08/03/16) MORPHINE (Verified Allergy, Unknown, 08/03/16) PHENYTOIN (Verified Allergy, Unknown, 08/03/16) Objective Last 24 Hour Vital Signs Date Time Temp Pulse Resp B/P (MAP) Pulse Ox O2 Delivery O2 Flow Rate FiO2 09/21/17 08:40 98.4 78 20 94/64 99 98.4 09/21/17 07:10 98.1 09/21/17 06:39 98.1 09/21/17 04:00 98.1 68 19 138/91 99 98.1 09/21/17 00:13 97.1 09/21/17 00:00 97.9 76 18 104/67 97 97.9 09/21/17 00:00 97 Nasal Cannula 6.0 09/20/17 20:00 94 Nasal Cannula 6.0 09/20/17 20:00 99.9 74 19 95/63 94 99.9 09/20/17 19:56 97.1 Intake and Output 09/20/17 09/21/17 19:00 07:00 Intake Total 944 ml 553 ml Output Total 200 ml 2200 ml Balance 744 ml -1647 ml Intake Oral 944 ml 400 ml IV Total 153 ml Output Urine Total 200 ml 2200 ml # Voids 1 Objective General Appearance: WD/WN Lines, tubes and drains: peripheral HEENT: normocephalic, atraumatic Neck: non-tender, normal alignment Respiratory/Chest: chest wall non-tender, lungs clear Breasts: no masses Cardiovascular/Chest: normal peripheral pulses, normal rate Abdomen: normal bowel sounds, non tender Genitourinary/Rectal: normal genital exam, heme negative stool Extremities: normal range of motion, non-tender Skin Exam: normal pigmentation Laboratory Tests 09/21/17 05:00: White Blood Count 14.5H, Red Blood Count 2.88L, Hemoglobin 8.8L, Hematocrit 26.3L, Mean Corpuscular Volume 91, Mean Corpuscular Hemoglobin 30.7, Mean Corpuscular Hemoglobin Concent 33.6, Red Cell Distribution Width 15.0H, Platelet Count 357, Mean Platelet Volume 6.5, Neutrophils (%) (Auto) 48.6, Lymphocytes (%) (Auto) 35.7, Monocytes (%) (Auto) 5.0, Eosinophils (%) (Auto) 10.1H, Basophils (%) (Auto) 0.6, Sodium Level 139, Potassium Level 4.9, Chloride Level 104, Carbon Dioxide Level 31, Anion Gap 4L, Blood Urea Nitrogen 25H, Creatinine 0.8, Estimat Glomerular Filtration Rate > 60, Glucose Level 82, Calcium Level 9.9, Phosphorus Level 4.2, Magnesium Level 1.8, Total Bilirubin 0.6, Aspartate Amino Transf (AST/SGOT) 52H, Alanine Aminotransferase (ALT/SGPT) 79H, Alkaline Phosphatase 172H, Total Protein 6.9, Albumin 3.3L, Globulin 3.6, Albumin/Globulin Ratio 0.9L KENNEDY MOORE Sep 21, 2017 19:10
--- NOTE | 2017-09-22 04:15 | Discharge Summary 2 SIG ---
DATE OF ADMISSION: 09/18/2017 DATE OF DISCHARGE: 09/21/2017 CONSULTANTS: 1. Deedee Sims M.D. 2. Oleg Perera M.D. 3. Marco Dutton M.D. 4. Kevin Reese D.P.M. 5. Carl Alvares M.D. BRIEF HOSPITAL COURSE: The patient is a 41-year-old male with history of seizure disorder and sickle disease, presented to ED, was brought in by ambulance status post seizure. The patient takes phenobarbital for his symptoms. He apparently woke up and called ambulance to take him in. He urinated on himself and his pants were soaked with urine. He also has sickle cell disease and was complaining of chest pain. On evaluation at ED, vital signs were within normal limits. The patient was afebrile. He had an EKG done, which showed T-wave inversion consistent with previous EKGs. Phenobarbital level was low. He was noted to be hypoxic on room air. He was given Keppra and the patient was admitted to telemetry for evaluation of seizure disorder and sickle cell crisis. He was placed on seizure precautions. He underwent neurologic evaluation. Phenobarbital was 1.9. He was continued on Keppra 500 mg b.i.d. to be tapered off phenobarbital. The patient had chronic seizure disorder exacerbation due to noncompliance. He had an ulcer on the left foot that he have been self-caring and had been using Aquacel. He was ordered wound care. However, the patient was refusing dressing, unable to perform MRI as machine was down. The patient had sickle cell, however, does not appear to be in significant crisis. He had anemia due to underlying chronic disease. Retic count was 1.9. He had elevated INR possibly due to Xarelto that the patient had been taking as outpatient. He was seen by pain management and was given methadone and Dilaudid. The patient became agitated and was not able to sleep as pain medication was not administered appropriately. Per the patient, he is depressed and has anhedonia. He was diagnosed with major depressive disorder and was started on Remeron 15 mg. There has been no seizure events. He was eventually discharged home. FINAL DIAGNOSES: 1. Acute exacerbation of seizure disorder. 2. Intractable pain. 3. Sickle cell crisis. 4. Severe diastolic heart disease. 5. Pulmonary hypertension. 6. Elevated liver transaminases. 7. Major depressive disorder. 8. Vascular necrosis of the right femur. 9. Possible osteomyelitis. 10. Non-pressure ulcer of the left foot to the level of muscle, present on admission. DISPOSITION: The patient was discharged home. DISCHARGE MEDICATIONS: Refer to medication list. DISCHARGE INSTRUCTIONS: Follow up with PMD in a week. Hanna Mckenna M.D. I have been assigned to dictate discharge summary on this account and I was not involved in the patient's management. Brooklynn Borja N.P. DR: Mikel JOB#: [id number] CC: LELAND
--- NOTE | 2017-09-22 09:14 | General Progress Note ---
Assessment/Plan Assessment/Plan 1. Sickle cell, currently does not appear to be in significant crisis. --> Continue to closely monitor. --> Trend cbc 2. Seizure at home, closely monitor. --> Apparently has been seen by Neurology service. --> No seizures have been reported 3. Anemia due to underlying chronic disease, closely monitor, due to sickle cell. --> Blood transfusion not required unless symptomatic or hgb <7 --> Monitor and trend cbc. --> Hemoglobin currently 8.8, does not need prbc 4. Coagulopathy, secondary to outpatient blood thinner which the patient has been on. --> Most recently saw the patient back in August. --> The patient had been taking Xarelto for coagulopathy. 5. Nausea and vomiting. Zofran on a p.r.n. basis. Subjective Date patient seen: Sep 21, 2017 Constitutional: Denies: no symptoms, chills, diaphoresis, fever, malaise, weakness, other HEENT: Denies: no symptoms, eye pain, blurred vision, tearing, double vision, ear pain, ear discharge, nose pain, nose congestion, throat pain, throat swelling, mouth pain, mouth swelling, other Cardiovascular: Denies: no symptoms, chest pain, edema, irregular heart rate, lightheadedness, palpitations, syncope, other Respiratory: Denies: no symptoms, cough, orthopnea, shortness of breath, SOB with excertion, SOB at rest, sputum, stridor, wheezing, other Gastrointestinal/Abdominal: Denies: no symptoms, abdomen distended, abdominal pain, black stools, tarry stools, blood in stool, constipated, diarrhea, difficulty swallowing, nausea, poor appetite, poor fluid intake, rectal bleeding , vomiting, other Genitourinary: Denies: no symptoms, burning, discharge, frequency, flank pain, hematuria, incontinence, pain, urgency, other 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: Denies: no symptoms, anxiety, depressed, emotional problems, headache, numbness, paresthesia, pre-existing deficit, seizure, tingling, tremors, weakness, other Hematologic/Lymphatic: Reports: anemia Allergies: Coded Allergies: PENTAMIDINE ISETHIONATE (Verified Allergy, Severe, palpitations, 08/27/17) AMPICILLIN (Verified Allergy, Unknown, 08/03/16) KETOROLAC (Verified Allergy, Unknown, 08/03/16) MORPHINE (Verified Allergy, Unknown, 08/03/16) PHENYTOIN (Verified Allergy, Unknown, 08/03/16) Subjective No seizures. H/H stable. NAD. Objective VS - Last 72 Hours, by Label Date Time Temp Pulse Resp B/P (MAP) Pulse Ox O2 Delivery O2 Flow Rate FiO2 09/21/17 08:40 98.4 78 20 94/64 99 98.4 09/21/17 07:10 98.1 09/21/17 06:39 98.1 09/21/17 04:00 98.1 68 19 138/91 99 98.1 09/21/17 00:13 97.1 09/21/17 00:00 97.9 76 18 104/67 97 97.9 09/21/17 00:00 97 Nasal Cannula 6.0 09/20/17 20:00 94 Nasal Cannula 6.0 09/20/17 20:00 99.9 74 19 95/63 94 99.9 09/20/17 19:56 97.1 09/20/17 16:00 97.1 68 18 100/59 100 Nasal Cannula 6.0 97.1 09/20/17 12:00 97.1 74 18 124/67 98 Nasal Cannula 6.0 97.1 09/20/17 12:00 74 09/20/17 10:29 97.5 09/20/17 09:59 97.9 09/20/17 08:00 69 09/20/17 08:00 97.1 67 18 119/77 98 Nasal Cannula 6.0 97.1 09/20/17 04:02 76 09/20/17 04:00 97.9 78 20 111/74 100 Nasal Cannula 6.0 97.9 09/20/17 00:01 80 09/20/17 00:00 98.1 86 20 103/65 98 Nasal Cannula 6.0 98.1 09/19/17 20:00 98.1 74 20 129/87 100 98.1 09/19/17 19:50 73 09/19/17 16:00 73 09/19/17 16:00 97.1 73 18 127/84 100 Nasal Cannula 6.0 97.1 09/19/17 13:26 98.0 09/19/17 12:00 97.0 83 18 128/70 100 Nasal Cannula 6.0 97.0 09/19/17 12:00 67 Labs Test 09/21/17 05:00 White Blood Count 14.5 K/UL (4.8-10.8) Red Blood Count 2.88 M/UL (4.70-6.10) Hemoglobin 8.8 G/DL (14.2-18.0) Hematocrit 26.3 % (42.0-52.0) Mean Corpuscular Volume 91 FL (80-99) Mean Corpuscular Hemoglobin 30.7 PG (27.0-31.0) Mean Corpuscular Hemoglobin Concent 33.6 G/DL (32.0-36.0) Red Cell Distribution Width 15.0 % (11.6-14.8) Platelet Count 357 K/UL (150-450) Mean Platelet Volume 6.5 FL (6.5-10.1) Neutrophils (%) (Auto) 48.6 % (45.0-75.0) Lymphocytes (%) (Auto) 35.7 % (20.0-45.0) Monocytes (%) (Auto) 5.0 % (1.0-10.0) Eosinophils (%) (Auto) 10.1 % (0.0-3.0) Basophils (%) (Auto) 0.6 % (0.0-2.0) Sodium Level 139 MMOL/L (136-145) Potassium Level 4.9 MMOL/L (3.5-5.1) Chloride Level 104 MMOL/L (98-107) Carbon Dioxide Level 31 MMOL/L (21-32) Anion Gap 4 mmol/L (5-15) Blood Urea Nitrogen 25 mg/dL (7-18) Creatinine 0.8 MG/DL (0.55-1.30) Estimat Glomerular Filtration Rate > 60 mL/min (>60) Glucose Level 82 MG/DL (74-106) Calcium Level 9.9 MG/DL (8.5-10.1) Phosphorus Level 4.2 MG/DL (2.5-4.9) Magnesium Level 1.8 MG/DL (1.8-2.4) Total Bilirubin 0.6 MG/DL (0.2-1.0) Aspartate Amino Transf (AST/SGOT) 52 U/L (15-37) Alanine Aminotransferase (ALT/SGPT) 79 U/L (12-78) Alkaline Phosphatase 172 U/L (46-116) Total Protein 6.9 G/DL (6.4-8.2) Albumin 3.3 G/DL (3.4-5.0) Globulin 3.6 g/dL Albumin/Globulin Ratio 0.9 (1.0-2.7) Height (Feet): 5 Height (Inches): 11.00 Weight (Pounds): 157 Marco Dutton Sep 22, 2017 09:14
== END 2017-09-21 10:45 | disposition home or self-care (01) | DRG 100 ==
LOC: EMR 19:30 → 2E 20:10 → EDBEDREQ 22:17 → 2E 09-19 00:25 → 4W 09-20 17:50
DX: G40.909 Epilepsy, unspecified, not intractable, without status epilepticus (principal); D57.00 Hb-SS disease with crisis, unspecified; I50.30 Unspecified diastolic (congestive) heart failure; I27.20 Pulmonary hypertension, unspecified; L97.825 Non-pressure chronic ulcer of other part of left lower leg with muscle involvement without evidence of necrosis; F11.20 Opioid dependence, uncomplicated; M87.9 Osteonecrosis, unspecified; D63.8 Anemia in other chronic diseases classified elsewhere; R09.02 Hypoxemia; R45.84 Anhedonia; F32.9 Major depressive disorder, single episode, unspecified; I10 Essential (primary) hypertension; Z91.19 Patient's noncompliance with other medical treatment and regimen; J44.9 Chronic obstructive pulmonary disease, unspecified; Z86.718 Personal history of other venous thrombosis and embolism; G89.4 Chronic pain syndrome; Z79.01 Long term (current) use of anticoagulants; R11.2 Nausea with vomiting, unspecified
CPT/HCPCS: 36415; 71045; 80053; 80184; 80299; 81003; 83615; 83735; 84100; 84484; 85025; 85044; 85610; 85730; 93005; 99285

== ENCOUNTER 2017-10-14 15:13 | Emergency (ER) | payer MEDICARE, OTHER ==
[~2017-10-14] VITALS: Ht 180.3 cm; Wt 71.2 kg
[~2017-10-14 15:13] MED LIST changes: +PHENOBARBITAL30 MG ORAL
[2017-10-14] MEDS ORDERED: DiphenhydrAMINE 50mg/ml Inj ONE (15:50)
--- NOTE | 2017-10-14 16:06 | Emergency Room Report ---
History of Present Illness General Chief Complaint: General Complaint Source: Patient, Medical Record Present Illness HPI Patient present with complaints of bilateral upper chest pain Reports that he thinks he might be having sickle cell crisis Denies any neck pain or photophobia Denies any midsternal chest pain Denies any vomiting or diarrhea. Reports that he thinks he might has had a seizure yesterday Denies any fevers or chills Allergies: Coded Allergies: PENTAMIDINE ISETHIONATE (Verified Allergy, Severe, palpitations, 08/27/17) AMPICILLIN (Verified Allergy, Unknown, 08/03/16) KETOROLAC (Verified Allergy, Unknown, 08/03/16) MORPHINE (Verified Allergy, Unknown, 08/03/16) PHENYTOIN (Verified Allergy, Unknown, 08/03/16) Patient History Past Medical History: see triage record Pertinent Family History: none Reviewed Nursing Documentation: PMH: Agreed; PSxH: Agreed Nursing Documentation-PMH Past Medical History: No History, Except For Hx Cardiac Problems: Yes - sickle cell Hx Hypertension: Yes Hx Asthma: Yes Hx COPD: Yes Hx Cancer: No Hx Gastrointestinal Problems: No Hx Neurological Problems: Yes Hx Seizures: Yes Review of Systems All Other Systems: negative except mentioned in HPI Physical Exam Vital Signs Date Time Temp Pulse Resp B/P (MAP) Pulse Ox O2 Delivery O2 Flow Rate FiO2 10/14/17 15:15 98.3 104 20 120/75 94 Nasal Cannula 6.0 98.2 Sp02 EP Interpretation: reviewed, normal General Appearance: well appearing, no apparent distress Head: normocephalic, atraumatic Eyes: left eye other - lazy eye; bilateral eye PERRL ENT: hearing grossly normal, TMs + canals normal, uvula midline, other - poor dentition Neck: full range of motion, supple, no meningismus, no bony tend Respiratory: lungs clear, normal breath sounds, no rhonchi, no respiratory distress, no retraction, no accessory muscle use Cardiovascular #1: normal peripheral pulses, regular rate, rhythm, no edema, no gallop, no JVD, no murmur Gastrointestinal: normal bowel sounds, non tender, soft, no mass, no organomegaly, non-distended, no guarding, no hernia, no pulsatile mass, no rebound Genitourinary: no CVA tenderness Musculoskeletal: other - Patient has chronic wound left foot Neurologic: oriented x3, responsive, motor strength/tone normal, sensory intact Psychiatric: mood/affect normal Skin: palpation normal, other - left foot ulcer Lymphatic: normal inspection, no adenopathy Medical Decision Making Diagnostic Impression: Primary Impression: Myalgia ER Course Patient is complex with multiple comorbidities and past medical history Given the presentation and complaints blood work including imaging was obtained Patient's reticulocyte count remains normal patient was provided with pain medication here 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6-14.8) Platelet Count 334 K/UL (150-450) Mean Platelet Volume 6.7 FL (6.5-10.1) Neutrophils (%) (Auto) 47.4 % (45.0-75.0) Lymphocytes (%) (Auto) 40.7 % (20.0-45.0) Monocytes (%) (Auto) 8.7 % (1.0-10.0) Eosinophils (%) (Auto) 1.8 % (0.0-3.0) Basophils (%) (Auto) 1.4 % (0.0-2.0) Reticulocyte Count 1.4 % (0.0-2.0) Sodium Level 142 MMOL/L (136-145) Potassium Level 4.9 MMOL/L (3.5-5.1) Chloride Level 105 MMOL/L (98-107) Carbon Dioxide Level 31 MMOL/L (21-32) Anion Gap 6 mmol/L (5-15) Blood Urea Nitrogen 43 mg/dL (7-18) Creatinine 1.4 MG/DL (0.55-1.30) Estimat Glomerular Filtration Rate > 60 mL/min (>60) Glucose Level 107 MG/DL (74-106) Calcium Level 9.3 MG/DL (8.5-10.1) Rhythm Strip Diag. Results EP Interpretation: yes Rate: 67 Rhythm: NSR, no PVC's, no ectopy Chest X-Ray Diagnostic Results Chest X-Ray Diagnostic Results : Chest X-Ray Ordered: Yes # of Views/Limited/Complete: 1 View Indication: Shortness of Breath EP Interpretation: Yes Interpretation: no consolidation, no effusion, no pneumothorax, other - similar interstitial disease cardiomegaly no significant change Impression: No acute disease Last Vital Signs Date Time Temp Pulse Resp B/P (MAP) Pulse Ox O2 Delivery O2 Flow Rate FiO2 10/14/17 15:15 98.3 104 20 120/75 94 Nasal Cannula 6.0 98.2 Status: improved Disposition: HOME, SELF-CARE Condition: Improved Additional Instructions: Patient is provided with the discharge instructions notified to follow up with primary doctor in the next 2-3 days otherwise return to the er with any worsening symptoms. Please note that this report is being documented using [employer] technology. This can lead to erroneous entry secondary to incorrect interpretation by the dictating instrument. Griffin Banda DO Oct 14, 2017 16:06
[2017-10-14 16:09] LABS: BASOPHILS % (AUTO) 1.4 % (0.0-2.0); EOSINOPHILS % (AUTO) 1.8 % (0.0-3.0); HEMATOCRIT 24.8 % (42.0-52.0); HEMOGLOBIN 8.6 G/DL (14.2-18.0); LYMPHOCYTES % (AUTO) 40.7 % (20.0-45.0); MEAN CORPUSCULAR VOLUME 91 FL (80-99); MONOCYTES % (AUTO) 8.7 % (1.0-10.0); NEUTROPHILS % (AUTO) 47.4 % (45.0-75.0); PLATELET COUNT 334 K/UL (150-450); RED BLOOD COUNT 2.74 M/UL (4.70-6.10); RED CELL DISTRIBUTION WIDTH 16.6 % (11.6-14.8); WHITE BLOOD COUNT 14.8 K/UL (4.8-10.8)
[2017-10-14 16:25] LABS: ANION GAP 6 mmol/L (5-15); BLOOD UREA NITROGEN 43 mg/dL (7-18); CALCIUM 9.3 MG/DL (8.5-10.1); CARBON DIOXIDE 31 MMOL/L (21-32); CHLORIDE 105 MMOL/L (98-107); CREATININE 1.4 MG/DL (0.55-1.30); POTASSIUM 4.9 MMOL/L (3.5-5.1); SODIUM 142 MMOL/L (136-145)
[2017-10-14 17:20] VITALS: BP 110/85
[2017-10-14] MEDS ORDERED: HYDROmorphone 1mg/ml Carpuject IVP ONE (17:45)
[2017-10-14] MEDS ORDERED: DiphenhydrAMINE 50mg/ml Inj IVP ONE ×2 (17:45→18:00)
[2017-10-14 18:09] VITALS: BP 122/84
--- NOTE | 2017-10-15 17:14 | Diagnostic Imaging Report ---
Indication: Chest pain Technique: XRAY Chest 1v Comparison:09/18/2017 Findings: Compared previous study there is decreased interstitial nodularity. The cardiomediastinal silhouette is unchanged. Scarring is again noted in the left midlung. Some interstitial disease does remain. An infusion port is again noted on the right. Impression: Decreased interstitial disease. No other change.
== END 2017-10-14 18:09 | disposition home or self-care (01) ==
LOC: EMR 16:00
DX: M79.1 Myalgia (principal); I10 Essential (primary) hypertension; J45.909 Unspecified asthma, uncomplicated; J44.9 Chronic obstructive pulmonary disease, unspecified; D57.1 Sickle-cell disease without crisis
CPT/HCPCS: 36415; 71045; 80048; 85025; 85044; 96372; 96374; 96375; 99284; J1170; J1200

== ENCOUNTER 2017-10-16 15:46 | Inpatient (IN) | payer MEDICARE, OTHER ==
[~2017-10-16] VITALS: Ht 180.3 cm; Wt 72.1 kg
[2017-10-16] MEDS ORDERED: Albuterol/Ipratropium 3ml neb HHN ONE (16:30)
--- NOTE | 2017-10-16 16:36 | Emergency Room Report ---
History of Present Illness General Chief Complaint: General Complaint Source: Patient Present Illness HPI Patient is a 41-year-old male brought in by EMS after increased difficulty with breathing. Patient had prior history of sickle cell disease as well as COPD. Patient had previous leg ulcers. Patient ports having increased generalized body pain as well as generalized weakness. Patient reports having a normal hemoglobin of 9. The patient was noted to have increased pain over the past few days. Patient states that he is currently has his medications which include hydroxyurea as well as methadone and Dilaudid . The patient uses oxygen chronically. Allergies: Coded Allergies: PENTAMIDINE ISETHIONATE (Verified Allergy, Severe, palpitations, 08/27/17) AMPICILLIN (Verified Allergy, Unknown, 08/03/16) KETOROLAC (Verified Allergy, Unknown, 08/03/16) MORPHINE (Verified Allergy, Unknown, 08/03/16) PHENYTOIN (Verified Allergy, Unknown, 08/03/16) Patient History Past Medical History: see triage record Reviewed Nursing Documentation: PMH: Agreed; PSxH: Agreed Nursing Documentation-PMH Hx Cardiac Problems: Yes - sickle cell Hx Hypertension: Yes Hx Asthma: Yes Hx COPD: Yes Hx Cancer: No Hx Gastrointestinal Problems: No Hx Neurological Problems: Yes Hx Seizures: Yes Review of Systems All Other Systems: negative except mentioned in HPI Physical Exam Vital Signs Date Time Temp Pulse Resp B/P (MAP) Pulse Ox O2 Delivery O2 Flow Rate FiO2 10/16/17 15:48 98.2 104 20 119/67 88 Nasal Cannula 6.0 98.2 General Appearance: alert, Chronically Ill Eyes: bilateral eye abnormal EOM Gastrointestinal: normal bowel sounds, non tender, soft Neurologic: alert, motor weakness Psychiatric: normal inspection Skin: other - chronic wound to right lower extremity Medical Decision Making Diagnostic Impression: Primary Impression: Sickle cell crisis Additional Impression: Interstitial lung disease ER Course Patient presented for sickle cell pain. Differential diagnosis included but was not limited to have sickle cell pain crisis, aplastic crisis, sequestration , osteomyelitis, acute chest syndrome among others. Because of complexity of patient's case laboratory testing and imaging studies were ordered. The patient was given IV fluids he started on IV pain medications. The patient' s baseline hemoglobin was noted to be approximately 9. Patient was noted to have hemoglobin which is slightly lower. Dr. Mckenna was contacted for inpatient management due to complexity of medical condition. Labs Test 10/16/17 17:06 White Blood Count 15.2 K/UL (4.8-10.8) Red Blood Count 2.34 M/UL (4.70-6.10) Hemoglobin 7.3 G/DL (14.2-18.0) Hematocrit 21.3 % (42.0-52.0) Mean Corpuscular Volume 91 FL (80-99) Mean Corpuscular Hemoglobin 31.2 PG (27.0-31.0) Mean Corpuscular Hemoglobin Concent 34.3 G/DL (32.0-36.0) Red Cell Distribution Width 16.5 % (11.6-14.8) Platelet Count 329 K/UL (150-450) Mean Platelet Volume 7.3 FL (6.5-10.1) Neutrophils (%) (Auto) % (45.0-75.0) Lymphocytes (%) (Auto) % (20.0-45.0) Monocytes (%) (Auto) % (1.0-10.0) Eosinophils (%) (Auto) % (0.0-3.0) Basophils (%) (Auto) % (0.0-2.0) Sodium Level 139 MMOL/L (136-145) Potassium Level 4.9 MMOL/L (3.5-5.1) Chloride Level 104 MMOL/L (98-107) Carbon Dioxide Level 32 MMOL/L (21-32) Anion Gap 3 mmol/L (5-15) Blood Urea Nitrogen 21 mg/dL (7-18) Creatinine 0.9 MG/DL (0.55-1.30) Estimat Glomerular Filtration Rate > 60 mL/min (>60) Glucose Level 99 MG/DL (74-106) Calcium Level 8.9 MG/DL (8.5-10.1) Total Bilirubin 0.9 MG/DL (0.2-1.0) Aspartate Amino Transf (AST/SGOT) 43 U/L (15-37) Alanine Aminotransferase (ALT/SGPT) 53 U/L (12-78) Alkaline Phosphatase 166 U/L (46-116) Troponin I 0.000 ng/mL (0.000-0.056) Total Protein 6.3 G/DL (6.4-8.2) Albumin 3.5 G/DL (3.4-5.0) Globulin 2.8 g/dL Albumin/Globulin Ratio 1.2 (1.0-2.7) Phenobarbital Level 2.6 ug/mL (15-40) Last Vital Signs Date Time Temp Pulse Resp B/P (MAP) Pulse Ox O2 Delivery O2 Flow Rate FiO2 10/16/17 15:48 98.2 104 20 119/67 88 Nasal Cannula 6.0 98.2 Status: improved Disposition: ADMITTED INPATIENT Condition: Serious Referrals: Marco Dutton MD (PCP) Jose Antonio Davies Oct 16, 2017 16:36
--- NOTE | 2017-10-16 17:06 | Diagnostic Imaging Report ---
Indication: Shortness of breath Technique: One view of the chest Comparison: 10/14/2017 Findings: Diffuse right mid and lower lung interstitial and airspace disease, left lower lung interstitial and airspace disease persists. Right chest port catheter is again demonstrated. The heart is mildly enlarged Impression: Unchanged bilateral parenchymal disease, over 2 days. Acute of this is indeterminate, may represent residual acute edema versus chronic fibrotic changes versus combination of both. Correlation with clinical findings is recommended
[2017-10-16 17:29] LABS: HEMATOCRIT 21.3 % (42.0-52.0); HEMOGLOBIN 7.3 G/DL (14.2-18.0); MEAN CORPUSCULAR VOLUME 91 FL (80-99); PLATELET COUNT 329 K/UL (150-450); RED BLOOD COUNT 2.34 M/UL (4.70-6.10); RED CELL DISTRIBUTION WIDTH 16.5 % (11.6-14.8); WHITE BLOOD COUNT 15.2 K/UL (4.8-10.8)
[2017-10-16] MEDS ORDERED: DiphenhydrAMINE 50mg/ml Inj IVP ONE (17:30)
[2017-10-16 17:33] LABS: ANION GAP 3 mmol/L (5-15); BLOOD UREA NITROGEN 21 mg/dL (7-18); CALCIUM 8.9 MG/DL (8.5-10.1); CARBON DIOXIDE 32 MMOL/L (21-32); CHLORIDE 104 MMOL/L (98-107); CREATININE 0.9 MG/DL (0.55-1.30); POTASSIUM 4.9 MMOL/L (3.5-5.1); SODIUM 139 MMOL/L (136-145)
[2017-10-16 17:37] LABS: ALANINE AMINOTRANSFERASE 53 U/L (12-78); ALBUMIN 3.5 G/DL (3.4-5.0); ALBUMIN/GLOBULIN RATIO 1.2 (1.0-2.7); ALKALINE PHOSPHATASE 166 U/L (46-116); ASPARTATE AMINO TRANSFERASE 43 U/L (15-37); BILIRUBIN,TOTAL 0.9 MG/DL (0.2-1.0)
[2017-10-16 18:01] VITALS: BP 119/70
[2017-10-16] MEDS ORDERED: Zolpidem 5mg tab ORAL PRN (20:15)
[2017-10-16] MEDS ORDERED: Miralax 17gm pkt ORAL PRN (20:15)
[2017-10-16] MEDS ORDERED: LORazepam Inj 2mg/ml 1ml IV PRN (20:15)
[2017-10-16] MEDS ORDERED: Mylanta II UD 30ml ORAL PRN (20:15)
[2017-10-16 20:27] VITALS: BP 124/81
[2017-10-16] MEDS: Heparin 5000 units/ml inj SUBQ SCH (21:00)
[2017-10-16] MEDS: DiphenhydrAMINE 50mg/ml Inj IVP PRN (22:25)
--- NOTE | 2017-10-16 22:51 | History and Physical ---
History of Present Illness General Date patient seen: Oct 16, 2017 Reason for Hospitalization: General Complaint Present Illness HPI 41-year-old male with hx of sickle cell disease, COPD brought in by EMS with CC of difficulty with breathing, increased generalized body pain as well as generalized weakness. pt is admitted to telemetry for possible ACS and dyspnea. Allergies: Coded Allergies: PENTAMIDINE ISETHIONATE (Verified Allergy, Severe, palpitations, 08/27/17) AMPICILLIN (Verified Allergy, Unknown, 08/03/16) KETOROLAC (Verified Allergy, Unknown, 08/03/16) MORPHINE (Verified Allergy, Unknown, 08/03/16) PHENYTOIN (Verified Allergy, Unknown, 08/03/16) Medication History Scheduled Folic Acid* (Folic Acid*), 1 MG ORAL DAILY Gabapentin* (Gabapentin*), 500 MG ORAL THREE TIMES A DAY Hydromorphone HCl (Dilaudid), 12 MG ORAL EVERY 4 HOURS, (Reported) Hydroxyurea* (Hydrea*), 500 MG PO BID Methadone Hcl* (Methadone*), 50 MG PO Q6HR, (Reported) Phenobarbital* (Phenobarbital*), 30 MG ORAL THREE TIMES A DAY, (Reported) Rivaroxaban (Xarelto), 15 MG ORAL Q12HR Scheduled PRN Diphenhydramine HCl (Benadryl), 50 MG PO Q4HR PRN for Itching, (Reported) Patient History Healthcare decision maker N Resuscitation status Advanced Directive on File Past Medical/Surgical History Past Medical/Surgical History: (1) Interstitial lung disease (2) Avascular necrosis of femur head, right (3) Seizure disorder (4) Pulmonary HTN Family History Family History: Patient reports no known family medical history. 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 Last 24 Hour Vital Signs Date Time Temp Pulse Resp B/P (MAP) Pulse Ox O2 Delivery O2 Flow Rate FiO2 10/16/17 20:27 208.8 100 16 124/81 95 Room Air 5.0 208.8 10/16/17 18:01 100 18 119/70 94 Room Air 10/16/17 17:42 98.2 10/16/17 17:36 90 18 100 Nasal Cannula 5.0 10/16/17 17:16 87 18 100 Nasal Cannula 5.0 10/16/17 17:14 87 18 Nasal Cannula 5.0 10/16/17 15:48 98.2 104 20 119/67 88 Nasal Cannula 6.0 98.2 Laboratory Tests Test 10/16/17 17:06 White Blood Count 15.2 K/UL (4.8-10.8) H Red Blood Count 2.34 M/UL (4.70-6.10) L Hemoglobin 7.3 G/DL (14.2-18.0) L Hematocrit 21.3 % (42.0-52.0) L Mean Corpuscular Volume 91 FL (80-99) Mean Corpuscular Hemoglobin 31.2 PG (27.0-31.0) H Mean Corpuscular Hemoglobin Concent 34.3 G/DL (32.0-36.0) Red Cell Distribution Width 16.5 % (11.6-14.8) H Platelet Count 329 K/UL (150-450) Mean Platelet Volume 7.3 FL (6.5-10.1) Neutrophils (%) (Auto) % (45.0-75.0) Lymphocytes (%) (Auto) % (20.0-45.0) Monocytes (%) (Auto) % (1.0-10.0) Eosinophils (%) (Auto) % (0.0-3.0) Basophils (%) (Auto) % (0.0-2.0) Differential Total Cells Counted 100 Neutrophils % (Manual) 40 % (45-75) L Lymphocytes % (Manual) 49 % (20-45) H Monocytes % (Manual) 4 % (1-10) Eosinophils % (Manual) 7 % (0-3) H Basophils % (Manual) 0 % (0-2) Band Neutrophils 0 % (0-8) Platelet Estimate Adequate Platelet Morphology Normal Polychromasia 1+ Hypochromasia 2+ Anisocytosis 1+ Target Cells 1+ Reticulocyte Count 1.8 % (0.0-2.0) Sodium Level 139 MMOL/L (136-145) Potassium Level 4.9 MMOL/L (3.5-5.1) Chloride Level 104 MMOL/L (98-107) Carbon Dioxide Level 32 MMOL/L (21-32) Anion Gap 3 mmol/L (5-15) L Blood Urea Nitrogen 21 mg/dL (7-18) H Creatinine 0.9 MG/DL (0.55-1.30) Estimat Glomerular Filtration Rate > 60 mL/min (>60) Glucose Level 99 MG/DL (74-106) Calcium Level 8.9 MG/DL (8.5-10.1) Total Bilirubin 0.9 MG/DL (0.2-1.0) Aspartate Amino Transf (AST/SGOT) 43 U/L (15-37) H Alanine Aminotransferase (ALT/SGPT) 53 U/L (12-78) Alkaline Phosphatase 166 U/L (46-116) H Troponin I 0.000 ng/mL (0.000-0.056) Total Protein 6.3 G/DL (6.4-8.2) L Albumin 3.5 G/DL (3.4-5.0) Globulin 2.8 g/dL Albumin/Globulin Ratio 1.2 (1.0-2.7) Phenobarbital Level 2.6 ug/mL (15-40) L Height (Feet): 5 Height (Inches): 11.00 Weight (Pounds): 159 Medications Current Medications Medications (Trade) Dose Ordered Sig/Anthony Route PRN Reason Start Time Stop Time Status Last Admin Dose Admin Acetaminophen (Tylenol) 650 mg Q4H PRN ORAL fever 10/16/17 20:15 11/15/17 20:14 Al Hydroxide/Mg Hydroxide (Mylanta II) 30 ml Q6H PRN ORAL dyspepsia 10/16/17 20:15 11/15/17 20:14 Dextrose (Dextrose 50%) STAT PRN IV Hypoglycemia 10/16/17 20:15 11/15/17 20:14 Diphenhydramine HCl (Benadryl) 50 mg Q6H PRN IVP Itching 10/16/17 22:00 11/15/17 21:59 10/16/17 22:25 Gabapentin (Neurontin) 100 mg THREE TIMES A DAY ORAL 10/17/17 09:00 11/16/17 08:59 Gabapentin (Neurontin) 400 mg THREE TIMES A DAY ORAL 10/17/17 09:00 11/16/17 08:59 Heparin Sodium (Porcine) (Heparin 5000 units/ml) 5,000 units EVERY 12 HOURS SUBQ 10/16/17 21:00 11/15/17 20:59 Hydromorphone HCl (Dilaudid) 2 mg EVERY 3 HOURS PRN IV pain 4-6 10/16/17 20:15 10/23/17 20:14 Hydromorphone HCl (Dilaudid) 3 mg Q3H PRN IVP For Pain 7-10 10/16/17 20:15 10/23/17 20:14 10/16/17 22:25 Hydroxyurea (Hydrea) 500 mg BID ORAL 10/17/17 09:00 10/22/17 08:59 Lorazepam (Ativan 2mg/ml 1ml) 0.5 mg Q4H PRN IV For Anxiety 10/16/17 20:15 10/23/17 20:14 Methadone HCl (Methadone HCl) 50 mg Q6HR ORAL 10/17/17 00:00 10/24/17 00:00 UNV Ondansetron HCl (Zofran) 4 mg Q6H PRN IVP Nausea & Vomiting 10/16/17 20:15 11/15/17 20:14 Phenobarbital (PHENobarbital) 30 mg THREE TIMES A DAY ORAL 10/17/17 09:00 11/16/17 08:59 Polyethylene Glycol (Miralax) 17 gm HSPRN PRN ORAL Constipation 10/16/17 20:15 11/15/17 20:14 Sodium Chloride 1,000 ml @ 75 mls/hr [id number] IV 10/16/17 20:45 11/15/17 20:44 10/16/17 22:08 Zolpidem Tartrate (Ambien) 5 mg HSPRN PRN ORAL Insomnia 10/16/17 20:15 10/23/17 20:14 Assessment/Plan Problem List: (1) Sickle cell crisis ICD Codes: D57.00 - Hb-SS disease with crisis, unspecified SNOMED: 827770318 (2) Interstitial lung disease ICD Codes: J84.9 - Interstitial pulmonary disease, unspecified SNOMED: 94067683, 898124991 (3) Pulmonary HTN ICD Codes: I27.2 - Other secondary pulmonary hypertension SNOMED: 00916642 (4) Dyspnea ICD Codes: R06.00 - Dyspnea, unspecified SNOMED: 686163167 Assessment/Plan respiratory treatment iv fluids symptomatic treatment check LDH, bilirubin Nasal cannula, titrate fio2 to sat of 92% Hematology evaluation. Hanna Mckenna MD Oct 16, 2017 22:51
[2017-10-17] VITALS (7 sets, daily range): BP systolic 106–139; BP diastolic 74–98
[2017-10-17] MEDS: DiphenhydrAMINE 50mg/ml Inj IVP PRN ×4 (04:59→22:32)
[2017-10-17] MEDS ORDERED: PHENobarbital 32.4mg tab ORAL SCH (09:00)
[2017-10-17] MEDS ORDERED: Hydroxyurea 500mg cap ORAL SCH (09:00)
[2017-10-17] MEDS: Heparin 5000 units/ml inj SUBQ SCH ×2 (09:00→21:00)
[2017-10-17 09:04] LABS: HEMATOCRIT 21.3 % (42.0-52.0); HEMOGLOBIN 7.3 G/DL (14.2-18.0); MEAN CORPUSCULAR VOLUME 91 FL (80-99); PLATELET COUNT 333 K/UL (150-450); RED BLOOD COUNT 2.33 M/UL (4.70-6.10); RED CELL DISTRIBUTION WIDTH 16.6 % (11.6-14.8); WHITE BLOOD COUNT 14.3 K/UL (4.8-10.8)
[2017-10-17] MEDS: PHENobarbital 32.4mg tab ORAL SCH ×3 (09:23→18:48)
[2017-10-17 09:36] LABS: ALANINE AMINOTRANSFERASE 52 U/L (12-78); ALBUMIN 3.2 G/DL (3.4-5.0); ALBUMIN/GLOBULIN RATIO 1.1 (1.0-2.7); ALKALINE PHOSPHATASE 172 U/L (46-116); ANION GAP 2 mmol/L (5-15); ASPARTATE AMINO TRANSFERASE 42 U/L (15-37); BILIRUBIN,TOTAL 0.6 MG/DL (0.2-1.0); BLOOD UREA NITROGEN 18 mg/dL (7-18); CALCIUM 8.6 MG/DL (8.5-10.1); CARBON DIOXIDE 33 MMOL/L (21-32); CHLORIDE 105 MMOL/L (98-107); CREATININE 0.7 MG/DL (0.55-1.30); LACTATE DEHYDROGENASE 379 U/L (81-234); POTASSIUM 4.2 MMOL/L (3.5-5.1); SODIUM 140 MMOL/L (136-145)
[2017-10-17] MEDS ORDERED: DiphenhydrAMINE 50mg/ml Inj IVP PRN (13:00)
--- NOTE | 2017-10-17 13:06 | Pulmonology Progress Note ---
Assessment/Plan Problems: (1) Sickle cell crisis (2) Interstitial lung disease (3) Pulmonary HTN (4) Dyspnea Assessment/Plan improving wants Benardyl to be increased to q4 hours med/surg cxr reviewed. same old interstitial changes f/u LDH, cbc, bilirubin and reti count. Subjective ROS Limited/Unobtainable: No Constitutional: Reports: no symptoms HEENT: Repors: no symptoms Allergies: Coded Allergies: PENTAMIDINE ISETHIONATE (Verified Allergy, Severe, palpitations, 08/27/17) AMPICILLIN (Verified Allergy, Unknown, 08/03/16) KETOROLAC (Verified Allergy, Unknown, 08/03/16) MORPHINE (Verified Allergy, Unknown, 08/03/16) PHENYTOIN (Verified Allergy, Unknown, 08/03/16) Objective Last 24 Hour Vital Signs Date Time Temp Pulse Resp B/P (MAP) Pulse Ox O2 Delivery O2 Flow Rate FiO2 10/17/17 12:00 97.6 86 22 139/98 96 Nasal Cannula 6.0 97.6 10/17/17 11:08 97.9 10/17/17 08:00 91 10/17/17 08:00 97.9 95 21 135/89 99 Nasal Cannula 6.0 97.9 10/17/17 04:00 93 10/17/17 03:59 97.7 87 20 117/75 98 97.7 10/17/17 00:00 88 10/17/17 00:00 97.6 92 20 106/81 100 97.6 10/16/17 21:12 93 10/16/17 20:27 208.8 100 16 124/81 95 Room Air 5.0 208.8 10/16/17 20:15 98.2 100 18 119/70 94 Room Air 5.0 208.8 10/16/17 18:01 100 18 119/70 94 Room Air 10/16/17 17:42 98.2 10/16/17 17:36 90 18 100 Nasal Cannula 5.0 10/16/17 17:16 87 18 100 Nasal Cannula 5.0 10/16/17 17:14 87 18 Nasal Cannula 5.0 10/16/17 15:48 98.2 104 20 119/67 88 Nasal Cannula 6.0 98.2 Intake and Output 10/16/17 10/17/17 19:00 07:00 Intake Total 0 ml Balance 0 ml Intake Oral 0 ml # Voids 6 # Bowel Movements 1 Objective General Appearance: WD/WN Lines, tubes and drains: peripheral HEENT: normocephalic, atraumatic Neck: non-tender, normal alignment Respiratory/Chest: chest wall non-tender, lungs clear, normal breath sounds Cardiovascular/Chest: normal rate Abdomen: normal bowel sounds, non tender Genitourinary/Rectal: normal genital exam Extremities: normal range of motion, non-tender Skin Exam: normal pigmentation 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 Laboratory Tests 10/16/17 17:06: White Blood Count 15.2H, Red Blood Count 2.34L, Hemoglobin 7.3L, Hematocrit 21.3L, Mean Corpuscular Volume 91, Mean Corpuscular Hemoglobin 31.2H, Mean Corpuscular Hemoglobin Concent 34.3, Red Cell Distribution Width 16.5H, Platelet Count 329, Mean Platelet Volume 7.3, Neutrophils (%) (Auto) , Lymphocytes (%) (Auto) , Monocytes (%) (Auto) , Eosinophils (%) (Auto) , Basophils (%) (Auto) , Differential Total Cells Counted 100, Neutrophils % ( Manual) 40L, Lymphocytes % (Manual) 49H, Monocytes % (Manual) 4, Eosinophils % ( Manual) 7H, Basophils % (Manual) 0, Band Neutrophils 0, Platelet Estimate Adequate, Platelet Morphology Normal, Polychromasia 1+, Hypochromasia 2+, Anisocytosis 1+, Target Cells 1+, Reticulocyte Count 1.8, Sodium Level 139, Potassium Level 4.9, Chloride Level 104, Carbon Dioxide Level 32, Anion Gap 3L, Blood Urea Nitrogen 21H, Creatinine 0.9, Estimat Glomerular Filtration Rate > 60 , Glucose Level 99, Calcium Level 8.9, Total Bilirubin 0.9, Aspartate Amino Transf (AST/SGOT) 43H, Alanine Aminotransferase (ALT/SGPT) 53, Alkaline Phosphatase 166H, Troponin I 0.000, Total Protein 6.3L, Albumin 3.5, Globulin 2.8, Albumin/Globulin Ratio 1.2, Phenobarbital Level 2.6L 10/17/17 08:40: White Blood Count 14.3H, Red Blood Count 2.33L, Hemoglobin 7.3L, Hematocrit 21.3L, Mean Corpuscular Volume 91, Mean Corpuscular Hemoglobin 31.5H, Mean Corpuscular Hemoglobin Concent 34.5, Red Cell Distribution Width 16.6H, Platelet Count 333, Mean Platelet Volume 7.1, Neutrophils (%) (Auto) , Lymphocytes (%) (Auto) , Monocytes (%) (Auto) , Eosinophils (%) (Auto) , Basophils (%) (Auto) , Differential Total Cells Counted 100, Neutrophils % ( Manual) 61, Lymphocytes % (Manual) 26, Monocytes % (Manual) 6, Eosinophils % ( Manual) 7H, Basophils % (Manual) 0, Band Neutrophils 0, Platelet Estimate Adequate, Platelet Morphology , Hypochromasia 1+, Anisocytosis 1+, Sodium Level 140, Potassium Level 4.2, Chloride Level 105, Carbon Dioxide Level 33H, Anion Gap 2L, Blood Urea Nitrogen 18, Creatinine 0.7, Estimat Glomerular Filtration Rate > 60, Glucose Level 128H, Calcium Level 8.6, Total Bilirubin 0.6, Aspartate Amino Transf (AST/SGOT) 42H, Alanine Aminotransferase (ALT/SGPT) 52, Alkaline Phosphatase 172H, Total Protein 6.0L, Albumin 3.2L, Globulin 2.8, Albumin/Globulin Ratio 1.1, Giant Platelets 1+, Sickle Cells RareH, Lactate Dehydrogenase 379H Current Medications Medications (Trade) Dose Ordered Sig/Anthony Route PRN Reason Start Time Stop Time Status Last Admin Dose Admin Acetaminophen (Tylenol) 650 mg Q4H PRN ORAL fever 10/16/17 20:15 11/15/17 20:14 Al Hydroxide/Mg Hydroxide (Mylanta II) 30 ml Q6H PRN ORAL dyspepsia 10/16/17 20:15 11/15/17 20:14 Chlorhexidine Gluconate (Val-Hex 2%) 1 applic DAILY@1999 TOPIC 10/17/17 20:00 11/16/17 19:59 Dextrose (Dextrose 50%) STAT PRN IV Hypoglycemia 10/16/17 20:15 11/15/17 20:14 Diphenhydramine HCl (Benadryl) 50 mg Q6H PRN IVP Itching 10/16/17 22:00 11/15/17 21:59 10/17/17 11:08 Gabapentin (Neurontin) 100 mg THREE TIMES A DAY ORAL 10/17/17 09:00 11/16/17 08:59 10/17/17 12:15 Gabapentin (Neurontin) 400 mg THREE TIMES A DAY ORAL 10/17/17 09:00 11/16/17 08:59 10/17/17 12:15 Heparin Sodium (Porcine) (Heparin 5000 units/ml) 5,000 units EVERY 12 HOURS SUBQ 10/16/17 21:00 11/15/17 20:59 Hydromorphone HCl (Dilaudid) 2 mg EVERY 3 HOURS PRN IV pain 4-6 10/16/17 20:15 10/23/17 20:14 10/17/17 11:08 Hydromorphone HCl (Dilaudid) 3 mg Q3H PRN IVP For Pain 7-10 10/16/17 20:15 10/23/17 20:14 10/16/17 22:25 Hydroxyurea (Hydrea) 500 mg BID ORAL 10/17/17 09:00 10/22/17 08:59 10/17/17 09:23 Lorazepam (Ativan 2mg/ml 1ml) 0.5 mg Q4H PRN IV For Anxiety 10/16/17 20:15 10/23/17 20:14 Methadone HCl (Methadone HCl) 50 mg Q6HR ORAL 10/17/17 12:00 10/24/17 11:59 10/17/17 12:16 Ondansetron HCl (Zofran) 4 mg Q6H PRN IVP Nausea & Vomiting 10/16/17 20:15 11/15/17 20:14 Phenobarbital (PHENobarbital) 32.4 mg THREE TIMES A DAY ORAL 10/17/17 09:10 11/16/17 09:09 10/17/17 12:16 Polyethylene Glycol (Miralax) 17 gm HSPRN PRN ORAL Constipation 10/16/17 20:15 11/15/17 20:14 Sodium Chloride 1,000 ml @ 75 mls/hr [id number] IV 10/16/17 20:45 11/15/17 20:44 10/17/17 11:51 Zolpidem Tartrate (Ambien) 5 mg HSPRN PRN ORAL Insomnia 10/16/17 20:15 10/23/17 20:14 Hanna Mckenna MD Oct 17, 2017 13:06
[2017-10-17] MEDS ORDERED: Zolpidem 5mg tab ORAL PRN (17:00)
[2017-10-17] MEDS ORDERED: Mylanta II UD 30ml ORAL PRN (17:00)
[2017-10-17] MEDS ORDERED: Miralax 17gm pkt ORAL PRN (17:00)
[2017-10-17] MEDS ORDERED: LORazepam Inj 2mg/ml 1ml IV PRN (17:00)
--- NOTE | 2017-10-17 17:42 | Cardiology Report ---
APPROVED REPORT EKG Measurement Heart [id number] Normal sinus rhythm Incomplete right bundle branch block Nonspecific T wave abnormality Abnormal ECG
[2017-10-17] MEDS: Hydroxyurea 500mg cap ORAL SCH (17:50)
[2017-10-17] MEDS ORDERED: Dyna-Hex 2% Top Sol 2oz TOPIC SCH ×2 (20:00)
--- NOTE | 2017-10-18 00:15 | Consultation ---
DATE OF CONSULTATION: 10/17/2017 NOTE: POOR AUDIO HEMATOLOGY/ONCOLOGY CONSULTATION CONSULTING PHYSICIAN: Marco Dutton M.D. REQUESTING PHYSICIAN: Hanna Mckenna M.D. REASON FOR CONSULTATION: Evaluation of sickle cell crisis. IDENTIFICATION DATA: Dear Dr. Mckenna, The patient is a pleasant 41-year-old male with past medical history, which is significant for sickle cell disease and COPD, at this time presents to EMS with complaints of difficulty with shortness of breath, increased generalized body pain, and generalized weakness. At this time, admitted to telemetry with ACS, rule out dyspnea. Hematology Service was consulted for further evaluation and treatment. The patient noted to have sickle cell disease. Reticulocyte count 1.8. The patient wants to have Benadryl and morphine as needed reticulocyte counts to fall. PAST MEDICAL HISTORY: Sickle cell disease/crisis, avascular necrosis of the femur, seizure disorder, and pulmonary hypertension. PAST SURGICAL HISTORY: None noted. MEDICATIONS: Neurontin, Dilaudid, hydroxyurea, methadone, folic acid, Xarelto, phenobarbital, . ALLERGIES: Ketorolac, morphine, phenytoin, and ampicillin. FAMILY HISTORY: Noncontributory. REVIEW OF SYSTEMS: CONSTITUTIONAL: No fever, chills, or night sweats. SKIN: No rashes, bumps, or itching. HEENT: No headache, hearing or vision changes. BREASTS: No lumps, pain, or discharge. PULMONARY: No cough, sputum, or shortness of breath. GASTROINTESTINAL: No nausea, vomiting, or diarrhea. GENITOURINARY: No dysuria, frequency, or urgency. MUSCULOSKELETAL: No joint swelling, muscle pain, or trauma. NEUROLOGICAL: Nonfocal. LABORATORY AND DIAGNOSTIC DATA: Currently, hemoglobin of 7.3, platelets are 133,000. BUN of 18 and creatinine 0.7. Toxicology pathology. ASSESSMENT AND RECOMMENDATIONS: 1. Sickle cell crisis. Continue the patient on hydroxyurea. The patient's pain control has been started with Dilaudid and continue the patient on methadone. The patient is once again on Benadryl, however, at this time I do not recommend the use of Benadryl given high opioid tolerance and potential addiction reticulocyte count is currently 1.8. 2. Leukocytosis, likely secondary to sickle cell reactive process, rule out underlying infection x-ray did not show any evidence of interstitial disease, but does have parenchymal disease, did not appear to be acute. 3. Deep venous thrombosis history before. He has been on Xarelto. Currently, off of it. He has completed three months of Xarelto, also has been noncompliant with Xarelto. 4. Anemia due to underlying sickle cell disease. Consider transfusion if hemoglobin is less than 6. 5. Seizure disorder neurology team to closely monitor. 6. Avascular necrosis of the hip, closely monitor for improvement. 7. Hypoalbuminemia due to decreased p.o. intake. 8. I appreciate the consultation. Thank you for the consultation. Marco Dutton M.D. DR: Max JOB#: [id number] CC:
[2017-10-18 04:00] VITALS: BP 129/84
[2017-10-18] MEDS: DiphenhydrAMINE 50mg/ml Inj IVP PRN ×2 (04:04→08:16)
[2017-10-18 07:13] LABS: HEMATOCRIT 22.1 % (42.0-52.0); HEMOGLOBIN 7.2 G/DL (14.2-18.0); MEAN CORPUSCULAR VOLUME 92 FL (80-99); PLATELET COUNT 349 K/UL (150-450); RED BLOOD COUNT 2.39 M/UL (4.70-6.10); RED CELL DISTRIBUTION WIDTH 17.2 % (11.6-14.8); WHITE BLOOD COUNT 14.6 K/UL (4.8-10.8)
[2017-10-18 07:15] LABS: ALANINE AMINOTRANSFERASE 61 U/L (12-78); ALBUMIN 3.4 G/DL (3.4-5.0); ALBUMIN/GLOBULIN RATIO 1.2 (1.0-2.7); ALKALINE PHOSPHATASE 187 U/L (46-116); ANION GAP 3 mmol/L (5-15); ASPARTATE AMINO TRANSFERASE 49 U/L (15-37); BILIRUBIN,TOTAL 0.6 MG/DL (0.2-1.0); BLOOD UREA NITROGEN 21 mg/dL (7-18); CALCIUM 8.7 MG/DL (8.5-10.1); CARBON DIOXIDE 31 MMOL/L (21-32); CHLORIDE 104 MMOL/L (98-107); CREATININE 0.8 MG/DL (0.55-1.30); LACTATE DEHYDROGENASE 379 U/L (81-234); SODIUM 138 MMOL/L (136-145)
[2017-10-18 07:44] LABS: PHOSPHORUS 4.2 MG/DL (2.5-4.9)
[2017-10-18 08:00] VITALS: BP 143/97
[2017-10-18] MEDS: Heparin 5000 units/ml inj SUBQ SCH ×2 (08:13→08:28)
[2017-10-18] MEDS: Hydroxyurea 500mg cap ORAL SCH (08:14)
[2017-10-18] MEDS: PHENobarbital 32.4mg tab ORAL SCH (08:15)
[2017-10-18] MEDS ORDERED: Heplock Flush 100 units/ml 3 ml syr IV ONE (10:15)
[2017-10-18] MEDS ORDERED: 1/2 NS 1000ml IV ONE (10:29)
--- NOTE | 2017-10-18 20:16 | Pulmonology Progress Note ---
Assessment/Plan Problems: (1) Sickle cell crisis (2) Interstitial lung disease (3) Pulmonary HTN (4) Dyspnea Assessment/Plan improving wants Benardyl to be increased to q4 hours med/surg cxr reviewed. same old interstitial changes f/u LDH, cbc, bilirubin and reti count. wants to go home today Subjective ROS Limited/Unobtainable: No Constitutional: Reports: no symptoms HEENT: Repors: no symptoms Respiratory: Reports: no symptoms Allergies: Coded Allergies: PENTAMIDINE ISETHIONATE (Verified Allergy, Severe, palpitations, 08/27/17) AMPICILLIN (Verified Allergy, Unknown, 08/03/16) KETOROLAC (Verified Allergy, Unknown, 08/03/16) MORPHINE (Verified Allergy, Unknown, 08/03/16) PHENYTOIN (Verified Allergy, Unknown, 08/03/16) Objective Last 24 Hour Vital Signs Date Time Temp Pulse Resp B/P (MAP) Pulse Ox O2 Delivery O2 Flow Rate FiO2 10/18/17 08:46 98.1 10/18/17 08:16 98.1 10/18/17 08:00 97.7 20 143/97 98 Nasal Cannula 6.0 97.7 10/18/17 04:18 Nasal Cannula 6.0 10/18/17 04:04 98.1 10/18/17 04:00 98.1 82 18 129/84 97 98.1 10/17/17 23:53 Nasal Cannula 6.0 10/17/17 23:50 98.2 84 18 124/87 98 98.2 10/17/17 22:33 98.5 Intake and Output 10/17/17 10/18/17 19:00 07:00 Intake Total 300 ml 1310 ml Output Total 1200 ml 2200 ml Balance -900 ml -890 ml Intake Oral 860 ml IV Total 300 ml 450 ml Output Urine Total 1200 ml 2200 ml Objective General Appearance: WD/WN Lines, tubes and drains: peripheral HEENT: normocephalic, atraumatic Neck: non-tender, normal alignment Respiratory/Chest: chest wall non-tender, lungs clear, normal breath sounds Cardiovascular/Chest: normal rate Abdomen: normal bowel sounds, non tender Genitourinary/Rectal: normal genital exam Extremities: normal range of motion, non-tender Skin Exam: normal pigmentation 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 Microbiology Date/Time Source Procedure Growth Status 10/17/17 13:50 Foot Left Gram Stain - Final Resulted 10/17/17 13:50 Wound Culture - Preliminary Staphylococcus Aureus Resulted Laboratory Tests 10/18/17 05:05: White Blood Count 14.6H, Red Blood Count 2.39L, Hemoglobin 7.2L, Hematocrit 22.1L, Mean Corpuscular Volume 92, Mean Corpuscular Hemoglobin 30.3, Mean Corpuscular Hemoglobin Concent 32.8, Red Cell Distribution Width 17.2H, Platelet Count 349, Mean Platelet Volume 7.1, Neutrophils (%) (Auto) , Lymphocytes (%) (Auto) , Monocytes (%) (Auto) , Eosinophils (%) (Auto) , Basophils (%) (Auto) , Differential Total Cells Counted 100, Neutrophils % ( Manual) 42L, Lymphocytes % (Manual) 37, Monocytes % (Manual) 8, Eosinophils % ( Manual) 13H, Basophils % (Manual) 0, Band Neutrophils 0, Platelet Estimate Adequate, Platelet Morphology , Giant Platelets 1+, Polychromasia 1+, Hypochromasia 1+, Anisocytosis 2+, Sickle Cells RareH, Prothrombin Time 10.7, Prothromb Time International Ratio 1.0, Activated Partial Thromboplast Time 30, Sodium Level 138, Potassium Level 5.0, Chloride Level 104, Carbon Dioxide Level 31, Anion Gap 3L, Blood Urea Nitrogen 21H, Creatinine 0.8, Estimat Glomerular Filtration Rate > 60, Glucose Level 99, Calcium Level 8.7, Phosphorus Level 4.2 , Magnesium Level 1.8, Total Bilirubin 0.6, Aspartate Amino Transf (AST/SGOT) 49H, Alanine Aminotransferase (ALT/SGPT) 61, Alkaline Phosphatase 187H, Lactate Dehydrogenase 379H, Total Protein 6.3L, Albumin 3.4, Globulin 2.9, Albumin/ Globulin Ratio 1.2 Hanna Mckenna MD Oct 18, 2017 20:16
--- NOTE | 2017-10-19 15:59 | Discharge Summary ---
Discharge Summary Hospital Course Date of Admission Oct 16, 2017 at 17:08 Date of Discharge Oct 18, 2017 at 10:30 Admitting Diagnosis SICKLE CELL CRISIS ALETHEA Barrett is a 41 year old male who was admitted on Oct 16, 2017 at 17:08 for Sickle Cell Crisis Hospital Course [id number] Discharge Discharge Disposition Patient was discharged to Home (01) Brooklynn Borja NP Oct 19, 2017 15:59
--- NOTE | 2017-10-19 21:45 | Discharge Summary 2 SIG ---
DATE OF ADMISSION: 10/16/2017 DATE OF DISCHARGE: 10/18/2017 REHABILITATION DIRECTOR: Marco Dutton M.D. BRIEF HOSPITAL COURSE: The patient is a 41-year-old male with history of sickle cell disease and chronic obstructive pulmonary disease, who was brought in by EMS for complaints of difficulty breathing and increased generalized body pain as well as generalized weakness. He was having increased pain for the past few days. He has been taking hydroxyurea as well as methadone and Dilaudid chronically. On evaluation at ED, blood work showed leukocytosis. WBC was 15 and hemoglobin was 7.3. His baseline was noted to be approximately on the 9. Due to hemoglobin, which was slightly lower than his baseline and pain, he was admitted for sickle cell crisis. He was given IV fluids and pain management. He was followed by high risk case manager. Reticulocyte count was 1.8. He was continued on hydroxyurea. He was given Dilaudid. Leukocytosis was likely secondary to sickle cell reactive process and anemia was secondary to sickle cell disease. No blood transfusion indicated unless hemoglobin drops to less than 6. He was on Xarelto due to prior deep venous thrombosis. He has completed three months of Xarelto and had been noncompliant. Currently, the patient had been off Xarelto. The patient wants to have Benadryl increased to q.4 hours. He had a chest x-ray done that showed unchanged bilateral parenchymal disease. He was eventually discharged home. Access to the Port-A-Cath was discontinued. FINAL DIAGNOSES: 1. Sickle cell crisis. 2. Interstitial lung disease. 3. Pulmonary hypertension. 4. Dyspnea. DISPOSITION: The patient was discharged home. DISCHARGE INSTRUCTIONS: Follow up with PCP in a week. Hanna Mckenna M.D. I have been assigned to dictate discharge summary on this account and I was not involved in the patient's management. Brooklynn Borja N.P. DR: YARELI JOB#: [id number] CC: LELAND
== END 2017-10-18 10:30 | disposition home or self-care (01) | DRG 812 ==
LOC: EMR 16:17 → 2E 17:08 → EDBEDREQ 17:45 → 4W 10-17 16:51
DX: D57.00 Hb-SS disease with crisis, unspecified (principal); J84.9 Interstitial pulmonary disease, unspecified; I27.20 Pulmonary hypertension, unspecified; Z88.6 Allergy status to analgesic agent; Z88.1 Allergy status to other antibiotic agents; Z88.8 Allergy status to other drugs, medicaments and biological substances; R06.00 Dyspnea, unspecified; J44.9 Chronic obstructive pulmonary disease, unspecified; Z86.718 Personal history of other venous thrombosis and embolism; Z91.14 Patient's other noncompliance with medication regimen; G40.909 Epilepsy, unspecified, not intractable, without status epilepticus; E88.09 Other disorders of plasma-protein metabolism, not elsewhere classified
CPT/HCPCS: 36415; 71045; 80053; 80184; 83615; 83735; 84100; 84484; 85007; 85025; 85044; 85610; 85730; 86850; 86900; 86901; 87070; 87181; 87205; 93005; 94640; 94664; 99285; J7620

== ENCOUNTER 2017-11-01 14:27 | Inpatient (IN) | payer MEDICARE, OTHER ==
[~2017-11-01] VITALS: Ht 180.3 cm; Wt 71.2 kg
[2017-11-01 15:35] VITALS: BP 148/84
--- NOTE | 2017-11-01 15:47 | Emergency Room Report ---
History of Present Illness General Chief Complaint: Chest Pain Source: Patient Present Illness HPI This patient has a history of sickle cell disease. He gets recurrent chest pain and recurrent pain crises. He states that he has had swollen legs and chest pain. He states that this has been worse over the past 3 days. He has used his home Dilaudid and other pain medications. He did not call his baby counselor or his pain management physician. He denies fever or chills. He denies nausea or vomiting. He denies cough or congestion. He denies abdominal pain. He has no other complaints. Allergies: Coded Allergies: PENTAMIDINE ISETHIONATE (Verified Allergy, Severe, palpitations, 08/27/17) AMPICILLIN (Verified Allergy, Unknown, 08/03/16) KETOROLAC (Verified Allergy, Unknown, 08/03/16) MORPHINE (Verified Allergy, Unknown, 08/03/16) PHENYTOIN (Verified Allergy, Unknown, 08/03/16) Patient History Past Medical History: see triage record, HTN, CAD, asthma, seizures, other - Pulmonary HTN (on home oxygen), SCD, Hx PE Social History: Denies: smoking, alcohol use, drug use Reviewed Nursing Documentation: PMH: Agreed; PSxH: Agreed Nursing Documentation-PMH Hx Cardiac Problems: Yes - sickle cell Hx Hypertension: Yes Hx Asthma: Yes Hx COPD: Yes Hx Cancer: No Hx Gastrointestinal Problems: No Hx Neurological Problems: Yes Hx Seizures: Yes Review of Systems All Other Systems: negative except mentioned in HPI Physical Exam Vital Signs Date Time Temp Pulse Resp B/P (MAP) Pulse Ox O2 Delivery O2 Flow Rate FiO2 11/01/17 15:01 98.7 108 17 148/84 77 Nasal Cannula 6.0 98.8 Sp02 EP Interpretation: reviewed, abnormal General Appearance: no apparent distress, alert, GCS 15, non-toxic Head: normocephalic, atraumatic Eyes: bilateral eye other - Strabysmus (at baseline) ENT: hearing grossly normal, normal pharynx, no angioedema, normal voice Neck: full range of motion, supple/symm/no masses Respiratory: chest non-tender, lungs clear, normal breath sounds, no respiratory distress, no retraction, no accessory muscle use, speaking full sentences Cardiovascular #1: regular rate, rhythm, no edema Gastrointestinal: normal bowel sounds, non tender, soft, non-distended, no guarding, no rebound Rectal: deferred Musculoskeletal: normal range of motion, other - BLE edema Neurologic: alert, oriented x3, responsive, motor strength/tone normal, sensory intact, speech normal Psychiatric: judgement/insight normal, memory normal, mood/affect normal, no suicidal/homicidal ideation Skin: normal color, no rash, warm/dry, well hydrated Medical Decision Making Diagnostic Impression: Primary Impression: Sickle cell pain crisis ER Course This patient presents with sickle cell pain crises. The patient's anemia is at his baseline. Patient does have pulmonary edema at baseline. He is on oxygen. Here in the emergency department his oxygen saturation was in the high 90s on her oxygen. Possibly his oxygen was malfunctioning. Regardless, the patient has severe pain and is admitted for sickle pain crises. Laboratory Tests Test 11/01/17 17:01 11/01/17 17:32 White Blood Count 15.2 K/UL (4.8-10.8) H Red Blood Count 2.71 M/UL (4.70-6.10) L Hemoglobin 8.5 G/DL (14.2-18.0) L Hematocrit 25.0 % (42.0-52.0) L Mean Corpuscular Volume 92 FL (80-99) Mean Corpuscular Hemoglobin 31.5 PG (27.0-31.0) H Mean Corpuscular Hemoglobin Concent 34.1 G/DL (32.0-36.0) Red Cell Distribution Width 17.3 % (11.6-14.8) H Platelet Count 250 K/UL (150-450) Mean Platelet Volume 8.2 FL (6.5-10.1) Neutrophils (%) (Auto) 51.1 % (45.0-75.0) Lymphocytes (%) (Auto) 31.6 % (20.0-45.0) Monocytes (%) (Auto) 6.6 % (1.0-10.0) Eosinophils (%) (Auto) 8.6 % (0.0-3.0) H Basophils (%) (Auto) 2.1 % (0.0-2.0) H Reticulocyte Count 1.0 % (0.0-2.0) Prothrombin Time 12.7 SEC (9.30-11.50) H Prothrombin Time INR 1.2 (0.9-1.1) H PTT 49 SEC (23-33) H Sodium Level 139 MMOL/L (136-145) Potassium Level 5.0 MMOL/L (3.5-5.1) Chloride Level 103 MMOL/L (98-107) Carbon Dioxide Level 34 MMOL/L (21-32) H Anion Gap 2 mmol/L (5-15) L Blood Urea Nitrogen 37 mg/dL (7-18) H Creatinine 0.9 MG/DL (0.55-1.30) Estimate Glomerular Filtration Rate > 60 mL/min (>60) Glucose Level 104 MG/DL (74-106) Calcium Level 9.4 MG/DL (8.5-10.1) Total Bilirubin 0.9 MG/DL (0.2-1.0) Aspartate Amino Transferase (AST) 42 U/L (15-37) H Alanine Aminotransferase (ALT) 63 U/L (12-78) Alkaline Phosphatase 174 U/L (46-116) H Total Creatine Kinase 15 U/L (26-308) L Creatine Kinase MB < 0.5 NG/ML (0.0-3.6) Creatine Kinase MB Relative Index 3.3 Troponin I 0.000 ng/mL (0.000-0.056) Pro-B-Type Natriuretic Peptide 96 pg/mL (0-125) Total Protein 6.8 G/DL (6.4-8.2) Albumin 3.7 G/DL (3.4-5.0) Globulin 3.1 g/dL Albumin/Globulin Ratio 1.2 (1.0-2.7) Urine Color Pale yellow Urine Appearance Clear Urine pH 7 (4.5-8.0) Urine Specific [place] 1.005 (1.005-1.035) Urine Protein 2+ (NEGATIVE) H Urine Glucose (UA) Negative (NEGATIVE) Urine Ketones Negative (NEGATIVE) Urine Occult Blood Negative (NEGATIVE) Urine Nitrite Negative (NEGATIVE) Urine Bilirubin Negative (NEGATIVE) Urine Urobilinogen Normal MG/DL (0.0-1.0) Urine Leukocyte Esterase 1+ (NEGATIVE) H Urine RBC 0-2 /HPF (0 - 0) H Urine WBC 2-4 /HPF (0 - 0) Urine Squamous Epithelial Cells None /LPF (NONE/OCC) Urine Bacteria Few /HPF (NONE) Urine Opiates Screen Positive (NEGATIVE) H Urine Barbiturates Screen Positive (NEGATIVE) H Phencyclidine (PCP) Screen Negative (NEGATIVE) Urine Amphetamines Screen Negative (NEGATIVE) Urine Benzodiazepines Screen Negative (NEGATIVE) Urine Cocaine Screen Negative (NEGATIVE) Urine Marijuana (THC) Screen Negative (NEGATIVE) EKG Diagnostic Results Rate: normal Rhythm: NSR Other Impression IRBBB, NSST Rhythm Strip Diag. Results EP Interpretation: yes Rate: 90's Rhythm: NSR, no PVC's, no ectopy Chest X-Ray Diagnostic Results Chest X-Ray Diagnostic Results : Chest X-Ray Ordered: Yes # of Views/Limited/Complete: 1 View Indication: Chest Pain EP Interpretation: Yes Interpretation: no effusion, no pneumothorax Impression: Other - Diffuse insterstitial prominence. Similar to previous. Electronically Signed by: Julito Last Vital Signs Date Time Temp Pulse Resp B/P (MAP) Pulse Ox O2 Delivery O2 Flow Rate FiO2 11/01/17 15:01 98.7 108 17 148/84 77 Nasal Cannula 6.0 98.8 Disposition: ADMITTED INPATIENT Condition: Serious RICHI BETANCUR D.O. Nov 01, 2017 15:47
--- NOTE | 2017-11-01 15:56 | Diagnostic Imaging Report ---
Indication: Chest pain Technique: One view of the chest Comparison: October 16, 2017 Findings: Right jugular port catheter again demonstrated. Reticular nodular opacities in the right lung and left lung base appears slightly less prominent on the prior exam, although this may be due to differences in exposure technique as well as slightly improved inspiration on the current exam. No new infiltrates. The heart is upper limits of normal in size. Impression: Bilateral parenchymal disease, as described, acuity indeterminant although similarity to prior study suggests that this is on the basis of chronic fibrotic change. Correlate with clinical findings
[2017-11-01] MEDS ORDERED: HYDROmorphone 1mg/ml Carpuject IVP ONE (17:15)
[2017-11-01 17:28] LABS: BASOPHILS % (AUTO) 2.1 % (0.0-2.0); EOSINOPHILS % (AUTO) 8.6 % (0.0-3.0); HEMOGLOBIN 8.5 G/DL (14.2-18.0); LYMPHOCYTES % (AUTO) 31.6 % (20.0-45.0); MEAN CORPUSCULAR VOLUME 92 FL (80-99); MONOCYTES % (AUTO) 6.6 % (1.0-10.0); NEUTROPHILS % (AUTO) 51.1 % (45.0-75.0); PLATELET COUNT 250 K/UL (150-450); RED BLOOD COUNT 2.71 M/UL (4.70-6.10); RED CELL DISTRIBUTION WIDTH 17.3 % (11.6-14.8); WHITE BLOOD COUNT 15.2 K/UL (4.8-10.8)
[2017-11-01 17:34] LABS: INR 1.2 (0.9-1.1)
[2017-11-01 17:35] LABS: ANION GAP 2 mmol/L (5-15); BLOOD UREA NITROGEN 37 mg/dL (7-18); CALCIUM 9.4 MG/DL (8.5-10.1); CARBON DIOXIDE 34 MMOL/L (21-32); CHLORIDE 103 MMOL/L (98-107); CREATININE 0.9 MG/DL (0.55-1.30); SODIUM 139 MMOL/L (136-145)
[2017-11-01 17:46] LABS: APPEARANCE,URINE CLEAR; BILIRUBIN, URINE NEGATIVE (NEGATIVE); COLOR,URINE PALE YELLOW; GLUCOSE, URINE (UA) NEGATIVE (NEGATIVE); KETONES,URINE NEGATIVE (NEGATIVE); LEUKOCYTE ESTERASE ,URINE 1+ (NEGATIVE); NITRITE,URINE NEGATIVE (NEGATIVE); PH,URINE 7 (4.5-8.0); PROTEIN,URINE 2+ (NEGATIVE); UROBILINOGEN,URINE NORMAL MG/DL (0.0-1.0)
[2017-11-01 17:56] LABS: ALANINE AMINOTRANSFERASE 63 U/L (12-78); ALBUMIN 3.7 G/DL (3.4-5.0); ALBUMIN/GLOBULIN RATIO 1.2 (1.0-2.7); ALKALINE PHOSPHATASE 174 U/L (46-116); ASPARTATE AMINO TRANSFERASE 42 U/L (15-37); BILIRUBIN,TOTAL 0.9 MG/DL (0.2-1.0); CKMB < 0.5 NG/ML (0.0-3.6); CREATINE KINASE 15 U/L (26-308)
[2017-11-01] MEDS ORDERED: DiphenhydrAMINE 50mg/ml Inj IVP ONE (19:00)
[2017-11-01 19:30] VITALS: BP 126/84
[2017-11-01] MEDS ORDERED: DOCUSATE SODIU100 MG ORAL (19:43)
[2017-11-01] MEDS ORDERED: ACETAMINOPHEN325 M1 ORAL (19:43)
[2017-11-01] MEDS ORDERED: PRADAXA150 MG ORAL (19:43)
[2017-11-01] MEDS ORDERED: Zolpidem 5mg tab ORAL PRN (20:15)
[2017-11-01] MEDS ORDERED: LORazepam Inj 2mg/ml 1ml IV PRN (20:15)
[2017-11-01] MEDS ORDERED: Mylanta II UD 30ml ORAL PRN (20:15)
[2017-11-01] MEDS ORDERED: Miralax 17gm pkt ORAL PRN (20:15)
[2017-11-01 20:30] VITALS: BP 119/69
[2017-11-01] MEDS ORDERED: Heparin 5000 units/ml inj SUBQ SCH (21:00)
[2017-11-01] MEDS: PHENobarbital 32.4mg tab ORAL SCH (21:30)
[2017-11-01] MEDS: Dabigatran 150mg cap ORAL SCH (21:30)
[2017-11-01] MEDS: DiphenhydrAMINE 50mg/ml Inj IVP PRN (23:26)
[2017-11-02] VITALS (8 sets, daily range): BP systolic 113–140; BP diastolic 67–92
[2017-11-02] MEDS: DiphenhydrAMINE 50mg/ml Inj IVP PRN ×5 (03:33→20:24)
[2017-11-02] MEDS: Dabigatran 150mg cap ORAL SCH ×2 (08:03→20:23)
[2017-11-02 08:28] LABS: BASOPHILS % (AUTO) 1.7 % (0.0-2.0); EOSINOPHILS % (AUTO) 11.2 % (0.0-3.0); HEMOGLOBIN 8.3 G/DL (14.2-18.0); LYMPHOCYTES % (AUTO) 42.5 % (20.0-45.0); MEAN CORPUSCULAR VOLUME 93 FL (80-99); MONOCYTES % (AUTO) 5.7 % (1.0-10.0); NEUTROPHILS % (AUTO) 38.9 % (45.0-75.0); PLATELET COUNT 272 K/UL (150-450); RED BLOOD COUNT 2.67 M/UL (4.70-6.10); RED CELL DISTRIBUTION WIDTH 17.4 % (11.6-14.8); WHITE BLOOD COUNT 12.8 K/UL (4.8-10.8)
[2017-11-02] MEDS: PHENobarbital 32.4mg tab ORAL SCH ×2 (08:51→20:24)
[2017-11-02 09:02] LABS: ALANINE AMINOTRANSFERASE 226 U/L (12-78); ALBUMIN 3.5 G/DL (3.4-5.0); ALBUMIN/GLOBULIN RATIO 1.1 (1.0-2.7); ALKALINE PHOSPHATASE 158 U/L (46-116); ANION GAP 0 mmol/L (5-15); ASPARTATE AMINO TRANSFERASE 46 U/L (15-37); BILIRUBIN,TOTAL 0.7 MG/DL (0.2-1.0); BLOOD UREA NITROGEN 32 mg/dL (7-18); CALCIUM 9.2 MG/DL (8.5-10.1); CARBON DIOXIDE 36 MMOL/L (21-32); CHLORIDE 103 MMOL/L (98-107); CREATININE 0.9 MG/DL (0.55-1.30); LACTATE DEHYDROGENASE 381 U/L (81-234); POTASSIUM 4.9 MMOL/L (3.5-5.1); SODIUM 139 MMOL/L (136-145)
--- NOTE | 2017-11-02 13:36 | History and Physical ---
History of Present Illness General Date patient seen: Nov 02, 2017 Reason for Hospitalization: Chest Pain Present Illness HPI 41-year-old male with hx of sickle cell disease, COPD brought in by EMS with CC of difficulty with breathing, increased generalized body pain, mostly around hip and knee areas,as well as generalized weakness. pt is admitted to telemetry for possible ACS and dyspnea. Allergies: Coded Allergies: PENTAMIDINE ISETHIONATE (Verified Allergy, Severe, palpitations, 08/27/17) AMPICILLIN (Verified Allergy, Unknown, 08/03/16) KETOROLAC (Verified Allergy, Unknown, 08/03/16) MORPHINE (Verified Allergy, Unknown, 08/03/16) PHENYTOIN (Verified Allergy, Unknown, 08/03/16) Medication History Scheduled Dabigatran Etexilate Mesylate* (Pradaxa*), 150 MG ORAL EVERY 12 HOURS, (Reported ) Docusate Sodium* (Docusate Sodium*), 100 MG ORAL TWICE A DAY, (Reported) Folic Acid* (Folic Acid*), 1 MG ORAL DAILY Hydromorphone HCl (Dilaudid), 14 MG ORAL EVERY 4 HOURS, (Reported) Hydroxyurea* (Hydrea*), 500 MG PO BID Methadone Hcl* (Methadone*), 60 MG PO Q6HR, (Reported) Phenobarbital* (Phenobarbital*), 16.2 MG ORAL BID, (Reported) Scheduled PRN Acetaminophen* (Acetaminophen 325MG Tablet*), 325 MG ORAL Q8HR PRN for Pain Scale (3-5), (Reported) Diphenhydramine HCl (Benadryl), 50 MG PO Q4HR PRN for Itching, (Reported) Patient History Healthcare decision maker Resuscitation status Full Code Advanced Directive on File Family History Family History: Patient reports no known family medical history. Review of Systems Constitutional: Reports: malaise, weakness Physical Exam General Appearance: cachetic Lines, tubes and drains: peripheral HEENT: normocephalic, atraumatic Neck: non-tender, normal alignment Respiratory/Chest: chest wall non-tender, lungs clear Cardiovascular/Chest: normal peripheral pulses, normal rate Abdomen: normal bowel sounds, non tender Genitourinary/Rectal: normal genital exam, normal rectal exam Extremities: normal range of motion, normal inspection Skin Exam: normal pigmentation Neurologic: stock clipper 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 Last 24 Hour Vital Signs Date Time Temp Pulse Resp B/P (MAP) Pulse Ox O2 Delivery O2 Flow Rate FiO2 11/02/17 12:56 97.2 11/02/17 12:26 97.2 11/02/17 12:15 97.2 84 19 122/67 97 Nasal Cannula 6.0 97.2 11/02/17 11:39 82 11/02/17 08:53 81 19 116/77 97 Nasal Cannula 6.0 11/02/17 08:07 96.7 11/02/17 07:47 81 11/02/17 04:00 96.7 84 19 134/92 97 Nasal Cannula 6.0 96.7 11/02/17 04:00 80 11/02/17 00:00 97.4 86 18 132/87 99 Nasal Cannula 6.0 97.4 11/02/17 00:00 87 11/01/17 21:00 97.7 81 17 119/69 95 Nasal Cannula 2.0 98.7 11/01/17 20:30 81 17 119/69 95 Nasal Cannula 2.0 11/01/17 19:30 69 16 126/84 96 Nasal Cannula 2.0 11/01/17 19:10 98.7 11/01/17 17:28 98.7 11/01/17 15:35 98.8 17 148/84 77 Nasal Cannula 6.0 98.8 11/01/17 15:35 108 17 Nasal Cannula 6.0 11/01/17 15:01 98.7 108 17 148/84 77 Nasal Cannula 6.0 98.8 Laboratory Tests Test 11/01/17 17:01 11/01/17 17:32 11/02/17 08:00 White Blood Count 15.2 K/UL (4.8-10.8) H 12.8 K/UL (4.8-10.8) H Red Blood Count 2.71 M/UL (4.70-6.10) L 2.67 M/UL (4.70-6.10) L Hemoglobin 8.5 G/DL (14.2-18.0) L 8.3 G/DL (14.2-18.0) L Hematocrit 25.0 % (42.0-52.0) L 25.0 % (42.0-52.0) L Mean Corpuscular Volume 92 FL (80-99) 93 FL (80-99) Mean Corpuscular Hemoglobin 31.5 PG (27.0-31.0) H 31.0 PG (27.0-31.0) Mean Corpuscular Hemoglobin Concent 34.1 G/DL (32.0-36.0) 33.2 G/DL (32.0-36.0) Red Cell Distribution Width 17.3 % (11.6-14.8) H 17.4 % (11.6-14.8) H Platelet Count 250 K/UL (150-450) 272 K/UL (150-450) Mean Platelet Volume 8.2 FL (6.5-10.1) 8.2 FL (6.5-10.1) Neutrophils (%) (Auto) 51.1 % (45.0-75.0) 38.9 % (45.0-75.0) L Lymphocytes (%) (Auto) 31.6 % (20.0-45.0) 42.5 % (20.0-45.0) Monocytes (%) (Auto) 6.6 % (1.0-10.0) 5.7 % (1.0-10.0) Eosinophils (%) (Auto) 8.6 % (0.0-3.0) H 11.2 % (0.0-3.0) H Basophils (%) (Auto) 2.1 % (0.0-2.0) H 1.7 % (0.0-2.0) Reticulocyte Count 1.0 % (0.0-2.0) Prothrombin Time 12.7 SEC (9.30-11.50) H Prothromb Time International Ratio 1.2 (0.9-1.1) H Activated Partial Thromboplast Time 49 SEC (23-33) H Sodium Level 139 MMOL/L (136-145) 139 MMOL/L (136-145) Potassium Level 5.0 MMOL/L (3.5-5.1) 4.9 MMOL/L (3.5-5.1) Chloride Level 103 MMOL/L (98-107) 103 MMOL/L (98-107) Carbon Dioxide Level 34 MMOL/L (21-32) H 36 MMOL/L (21-32) H Anion Gap 2 mmol/L (5-15) L 0 mmol/L (5-15) L Blood Urea Nitrogen 37 mg/dL (7-18) H 32 mg/dL (7-18) H Creatinine 0.9 MG/DL (0.55-1.30) 0.9 MG/DL (0.55-1.30) Estimat Glomerular Filtration Rate > 60 mL/min (>60) > 60 mL/min (>60) Glucose Level 104 MG/DL (74-106) 123 MG/DL (74-106) H Calcium Level 9.4 MG/DL (8.5-10.1) 9.2 MG/DL (8.5-10.1) Total Bilirubin 0.9 MG/DL (0.2-1.0) 0.7 MG/DL (0.2-1.0) Aspartate Amino Transf (AST/SGOT) 42 U/L (15-37) H 46 U/L (15-37) H Alanine Aminotransferase (ALT/SGPT) 63 U/L (12-78) 226 U/L (12-78) H Alkaline Phosphatase 174 U/L (46-116) H 158 U/L (46-116) H Total Creatine Kinase 15 U/L (26-308) L Creatine Kinase MB < 0.5 NG/ML (0.0-3.6) Creatine Kinase MB Relative Index 3.3 Troponin I 0.000 ng/mL (0.000-0.056) Pro-B-Type Natriuretic Peptide 96 pg/mL (0-125) Total Protein 6.8 G/DL (6.4-8.2) 6.8 G/DL (6.4-8.2) Albumin 3.7 G/DL (3.4-5.0) 3.5 G/DL (3.4-5.0) Globulin 3.1 g/dL 3.3 g/dL Albumin/Globulin Ratio 1.2 (1.0-2.7) 1.1 (1.0-2.7) Urine Color Pale yellow Urine Appearance Clear Urine pH 7 (4.5-8.0) Urine Specific [place] 1.005 (1.005-1.035) Urine Protein 2+ (NEGATIVE) H Urine Glucose (UA) Negative (NEGATIVE) Urine Ketones Negative (NEGATIVE) Urine Occult Blood Negative (NEGATIVE) Urine Nitrite Negative (NEGATIVE) Urine Bilirubin Negative (NEGATIVE) Urine Urobilinogen Normal MG/DL (0.0-1.0) Urine Leukocyte Esterase 1+ (NEGATIVE) H Urine RBC 0-2 /HPF (0 - 0) H Urine WBC 2-4 /HPF (0 - 0) Urine Squamous Epithelial Cells None /LPF (NONE/OCC) Urine Bacteria Few /HPF (NONE) Urine Opiates Screen Positive (NEGATIVE) H Urine Barbiturates Screen Positive (NEGATIVE) H Phencyclidine (PCP) Screen Negative (NEGATIVE) Urine Amphetamines Screen Negative (NEGATIVE) Urine Benzodiazepines Screen Negative (NEGATIVE) Urine Cocaine Screen Negative (NEGATIVE) Urine Marijuana (THC) Screen Negative (NEGATIVE) Lactate Dehydrogenase 381 U/L (81-234) H Height (Feet): 5 Height (Inches): 11.00 Weight (Pounds): 157 Medications Current Medications Medications (Trade) Dose Ordered Sig/Anthony Route PRN Reason Start Time Stop Time Status Last Admin Dose Admin Acetaminophen (Tylenol) 650 mg Q4H PRN ORAL fever 11/01/17 20:15 12/01/17 20:14 Al Hydroxide/Mg Hydroxide (Mylanta II) 30 ml Q6H PRN ORAL dyspepsia 11/01/17 20:15 12/01/17 20:14 Chlorhexidine Gluconate (Val-Hex 2%) 1 applic DAILY@1999 TOPIC 11/02/17 20:00 12/02/17 19:59 Dabigatran (Pradaxa) 150 mg EVERY 12 HOURS ORAL 11/01/17 21:30 12/01/17 21:29 11/02/17 08:03 Dextrose (Dextrose 50%) 25 ml STAT PRN IV Hypoglycemia 60-69 mg/dL 11/01/17 21:00 12/01/17 20:59 Dextrose (Dextrose 50%) 50 ml STAT PRN IV Hypoglycemia 11/01/17 20:15 12/01/17 20:14 Diphenhydramine HCl (Benadryl) 50 mg Q4HR PRN IVP Itching 11/01/17 23:15 12/01/17 23:14 11/02/17 12:25 Hydromorphone HCl (Dilaudid) 2 mg Q3H PRN IV pain 4-6 11/01/17 20:15 11/08/17 20:14 11/02/17 03:33 Hydromorphone HCl (Dilaudid) 3 mg Q3H PRN IVP For Pain 7-10 11/01/17 20:15 11/08/17 20:14 11/02/17 12:26 Lorazepam (Ativan 2mg/ml 1ml) 0.5 mg Q4H PRN IV For Anxiety 11/01/17 20:15 11/08/17 20:14 Methadone HCl (Methadone HCl) 60 mg Q6HR ORAL 11/02/17 00:00 11/09/17 00:00 11/02/17 05:47 Ondansetron HCl (Zofran) 4 mg Q6H PRN IVP Nausea & Vomiting 11/01/17 20:15 12/01/17 20:14 Phenobarbital (PHENobarbital) 16.2 mg Q12HR ORAL 11/01/17 21:30 12/01/17 21:29 11/02/17 08:51 Polyethylene Glycol (Miralax) 17 gm HSPRN PRN ORAL Constipation 11/01/17 20:15 12/01/17 20:14 Sodium Chloride 1,000 ml @ 75 mls/hr [id number] IV 11/01/17 21:00 12/01/17 20:59 11/02/17 10:29 Zolpidem Tartrate (Ambien) 5 mg HSPRN PRN ORAL Insomnia 11/01/17 20:15 11/08/17 20:14 Assessment/Plan Problem List: (1) Sickle cell pain crisis ICD Codes: D57.00 - Hb-SS disease with crisis, unspecified SNOMED: 131367384 (2) Intractable pain ICD Codes: R52 - Pain, unspecified SNOMED: 90664424 (3) Interstitial lung disease ICD Codes: J84.9 - Interstitial pulmonary disease, unspecified SNOMED: 04327918, 013356199 (4) severe diastolic heart disease (5) Pulmonary HTN ICD Codes: I27.2 - Other secondary pulmonary hypertension SNOMED: 23739687 (6) Seizure disorder ICD Codes: G40.909 - Epilepsy, unspecified, not intractable, without status epilepticus SNOMED: 157067315 Assessment/Plan iv fluids titrate fio2 sat of 92% f/u LDH, bilirubin pain management symptomatic treatment respiratory treatment check electrolytes Hanna Mckenna MD Nov 02, 2017 13:36
--- NOTE | 2017-11-02 13:42 | General Progress Note ---
Assessment/Plan Assessment/Plan (1) Intractable pain (2) Avascular necrosis of femur head, left (3) Sickle cell crisis (4) Avascular necrosis of femur head, right Patient will be continued on methadone reduced to Q8H ATC and Dilaudid Parameters will be set to hold opioids for oversedation or SBP<90 or DBP<60 or O2sat<92% or RR<12 Pt was d/w Dr. Perera and he concurred. Subjective Date patient seen: Nov 02, 2017 Time patient seen: 12:45 - pm Allergies: Coded Allergies: PENTAMIDINE ISETHIONATE (Verified Allergy, Severe, palpitations, 08/27/17) AMPICILLIN (Verified Allergy, Unknown, 08/03/16) KETOROLAC (Verified Allergy, Unknown, 08/03/16) MORPHINE (Verified Allergy, Unknown, 08/03/16) PHENYTOIN (Verified Allergy, Unknown, 08/03/16) Subjective Constitutional: Reports: chills HEENT: Denies: blurred vision, double vision, ear discharge, ear pain, eye pain , mouth pain, mouth swelling, nose congestion, nose pain, tearing, throat pain, throat swelling Cardiovascular: Denies: chest pain, edema, irregular heart rate, lightheadedness, palpitations, syncope Respiratory: Denies: SOB at rest, SOB with excertion, cough, orthopnea, shortness of breath, sputum, stridor, wheezing Gastrointestinal/Abdominal: Denies: abdomen distended, abdominal pain, black stools, blood in stool, constipated, diarrhea, difficulty swallowing, nausea, poor appetite, poor fluid intake, rectal bleeding, tarry stools, vomiting Genitourinary: Denies: burning, discharge, flank pain, frequency, hematuria, incontinence, pain, urgency 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: Denies: anxiety, depressed, emotional problems, headache, numbness, paresthesia, pre-existing deficit, seizure, tingling, tremors, weakness Endocrine: Reports: other, Denies: excessive sweating, flushing, increased hunger, increased thirst, increased urine, intolerance to cold, intolerance to heat, unexplained weight gain, unexplained weight loss Hematologic/Lymphatic: Denies: anemia, easy bleeding, easy bruising Subjective Patient is a known patient from prior admission with sickle cell disease and crisis c/o severe pain. As out patient seen Dr Qasabian, Bernard receiving high doses of Methadone 60mg Q8H ATC and Dilaudid 4mg 4-6tabs Q4H PRN pain. However has not been able to control his pain causing him to be admitted. At this time has been started on Methadone 60mg Q6H and Dilaudid 2-3mg IV Q3H PRN mod-severe pain. Objective Last 24 Hour Vital Signs Date Time Temp Pulse Resp B/P (MAP) Pulse Ox O2 Delivery O2 Flow Rate FiO2 11/02/17 12:56 97.2 11/02/17 12:26 97.2 11/02/17 12:15 97.2 84 19 122/67 97 Nasal Cannula 6.0 97.2 11/02/17 11:39 82 11/02/17 08:53 81 19 116/77 97 Nasal Cannula 6.0 11/02/17 08:07 96.7 11/02/17 07:47 81 11/02/17 04:00 96.7 84 19 134/92 97 Nasal Cannula 6.0 96.7 11/02/17 04:00 80 11/02/17 00:00 97.4 86 18 132/87 99 Nasal Cannula 6.0 97.4 11/02/17 00:00 87 11/01/17 21:00 97.7 81 17 119/69 95 Nasal Cannula 2.0 98.7 11/01/17 20:30 81 17 119/69 95 Nasal Cannula 2.0 11/01/17 19:30 69 16 126/84 96 Nasal Cannula 2.0 11/01/17 19:10 98.7 11/01/17 17:28 98.7 11/01/17 15:35 98.8 17 148/84 77 Nasal Cannula 6.0 98.8 11/01/17 15:35 108 17 Nasal Cannula 6.0 11/01/17 15:01 98.7 108 17 148/84 77 Nasal Cannula 6.0 98.8 Laboratory Tests 11/01/17 17:01: White Blood Count 15.2H, Red Blood Count 2.71L, Hemoglobin 8.5L, Hematocrit 25.0L, Mean Corpuscular Volume 92, Mean Corpuscular Hemoglobin 31.5H, Mean Corpuscular Hemoglobin Concent 34.1, Red Cell Distribution Width 17.3H, Platelet Count 250, Mean Platelet Volume 8.2, Neutrophils (%) (Auto) 51.1, Lymphocytes (%) (Auto) 31.6, Monocytes (%) (Auto) 6.6, Eosinophils (%) (Auto) 8.6H, Basophils (%) (Auto) 2.1H, Reticulocyte Count 1.0, Prothrombin Time 12.7H , Prothromb Time International Ratio 1.2H, Activated Partial Thromboplast Time 49H, Sodium Level 139, Potassium Level 5.0, Chloride Level 103, Carbon Dioxide Level 34H, Anion Gap 2L, Blood Urea Nitrogen 37H, Creatinine 0.9, Estimat Glomerular Filtration Rate > 60, Glucose Level 104, Calcium Level 9.4, Total Bilirubin 0.9, Aspartate Amino Transf (AST/SGOT) 42H, Alanine Aminotransferase ( ALT/SGPT) 63, Alkaline Phosphatase 174H, Total Creatine Kinase 15L, Creatine Kinase MB < 0.5, Creatine Kinase MB Relative Index 3.3, Troponin I 0.000, Pro-B- Type Natriuretic Peptide 96, Total Protein 6.8, Albumin 3.7, Globulin 3.1, Albumin/Globulin Ratio 1.2 11/01/17 17:32: Urine Color Pale yellow, Urine Appearance Clear, Urine pH 7, Urine Specific [place] 1.005, Urine Protein 2+H, Urine Glucose (UA) Negative, Urine Ketones Negative, Urine Occult Blood Negative, Urine Nitrite Negative, Urine Bilirubin Negative, Urine Urobilinogen Normal, Urine Leukocyte Esterase 1+H, Urine RBC 0- 2H, Urine WBC 2-4, Urine Squamous Epithelial Cells None, Urine Bacteria Few, Urine Opiates Screen PositiveH, Urine Barbiturates Screen PositiveH, Phencyclidine (PCP) Screen Negative, Urine Amphetamines Screen Negative, Urine Benzodiazepines Screen Negative, Urine Cocaine Screen Negative, Urine Marijuana (THC) Screen Negative 11/02/17 08:00: White Blood Count 12.8H, Red Blood Count 2.67L, Hemoglobin 8.3L, Hematocrit 25.0L, Mean Corpuscular Volume 93, Mean Corpuscular Hemoglobin 31.0, Mean Corpuscular Hemoglobin Concent 33.2, Red Cell Distribution Width 17.4H, Platelet Count 272, Mean Platelet Volume 8.2, Neutrophils (%) (Auto) 38.9L, Lymphocytes (%) (Auto) 42.5, Monocytes (%) (Auto) 5.7, Eosinophils (%) (Auto) 11.2H, Basophils (%) (Auto) 1.7, Sodium Level 139, Potassium Level 4.9, Chloride Level 103, Carbon Dioxide Level 36H, Anion Gap 0L, Blood Urea Nitrogen 32H, Creatinine 0.9, Estimat Glomerular Filtration Rate > 60, Glucose Level 123H , Calcium Level 9.2, Total Bilirubin 0.7, Aspartate Amino Transf (AST/SGOT) 46H , Alanine Aminotransferase (ALT/SGPT) 226H, Alkaline Phosphatase 158H, Total Protein 6.8, Albumin 3.5, Globulin 3.3, Albumin/Globulin Ratio 1.1, Lactate Dehydrogenase 381H Height (Feet): 5 Height (Inches): 11.00 Weight (Pounds): 157 Objective General Appearance: no apparent distress, alert EENT: PERRL/EOMI, normal ENT inspection Neck: non-tender, normal alignment Cardiovascular: normal rate, regular rhythm Respiratory/Chest: decreased breath sounds Abdomen: non tender, soft Edema: no edema noted Neurologic: alert, oriented x 3 Skin: warm/dry ANTIONE PHILLIPS Nov 02, 2017 13:42
[2017-11-02] MEDS ORDERED: LORazepam Inj 2mg/ml 1ml IV PRN (18:00)
[2017-11-02] MEDS ORDERED: Zolpidem 5mg tab ORAL PRN (18:00)
[2017-11-02] MEDS ORDERED: Mylanta II UD 30ml ORAL PRN (18:00)
[2017-11-02] MEDS ORDERED: Miralax 17gm pkt ORAL PRN (18:00)
[2017-11-02] MEDS ORDERED: Dyna-Hex 2% Top Sol 2oz TOPIC SCH ×2 (20:00)
--- NOTE | 2017-11-02 21:22 | Cardiology Report ---
APPROVED REPORT EKG Measurement Heart [id number] Normal sinus rhythm RSR' or QR pattern in V1 suggests right ventricular conduction delay Nonspecific T wave abnormality Prolonged QT Abnormal ECG
[2017-11-03] VITALS: BP 116/80
[2017-11-03] MEDS: DiphenhydrAMINE 50mg/ml Inj IVP PRN ×4 (00:36→13:35)
[2017-11-03 04:00] VITALS: BP 147/88
[2017-11-03 06:42] LABS: BASOPHILS % (AUTO) 2.5 % (0.0-2.0); EOSINOPHILS % (AUTO) 10.4 % (0.0-3.0); HEMATOCRIT 25.6 % (42.0-52.0); HEMOGLOBIN 8.6 G/DL (14.2-18.0); LYMPHOCYTES % (AUTO) 48.6 % (20.0-45.0); MEAN CORPUSCULAR VOLUME 94 FL (80-99); NEUTROPHILS % (AUTO) 33.5 % (45.0-75.0); PLATELET COUNT 323 K/UL (150-450); RED BLOOD COUNT 2.72 M/UL (4.70-6.10); RED CELL DISTRIBUTION WIDTH 17.8 % (11.6-14.8); WHITE BLOOD COUNT 14.4 K/UL (4.8-10.8)
[2017-11-03 07:13] LABS: ALANINE AMINOTRANSFERASE 71 U/L (12-78); ALBUMIN 3.6 G/DL (3.4-5.0); ALBUMIN/GLOBULIN RATIO 1.1 (1.0-2.7); ALKALINE PHOSPHATASE 175 U/L (46-116); ANION GAP 4 mmol/L (5-15); ASPARTATE AMINO TRANSFERASE 49 U/L (15-37); BILIRUBIN,TOTAL 0.6 MG/DL (0.2-1.0); BLOOD UREA NITROGEN 23 mg/dL (7-18); CALCIUM 9.1 MG/DL (8.5-10.1); CARBON DIOXIDE 32 MMOL/L (21-32); CHLORIDE 104 MMOL/L (98-107); CREATININE 0.7 MG/DL (0.55-1.30); LACTATE DEHYDROGENASE 385 U/L (81-234); SODIUM 140 MMOL/L (136-145)
[2017-11-03 08:00] VITALS: BP 110/71
[2017-11-03] MEDS: Dabigatran 150mg cap ORAL SCH (08:48)
[2017-11-03] MEDS: PHENobarbital 32.4mg tab ORAL SCH (08:49)
--- NOTE | 2017-11-03 10:11 | General Progress Note ---
Assessment/Plan Assessment/Plan (1) Intractable pain (2) Avascular necrosis of femur head, left (3) Sickle cell crisis (4) Avascular necrosis of femur head, right Patient will be continued on methadone changed to Q6H PRN and Dilaudid Pt was d/w Dr. Perera and he concurred. Subjective Date patient seen: Nov 03, 2017 Time patient seen: 09:15 - am Allergies: Coded Allergies: PENTAMIDINE ISETHIONATE (Verified Allergy, Severe, palpitations, 08/27/17) AMPICILLIN (Verified Allergy, Unknown, 08/03/16) KETOROLAC (Verified Allergy, Unknown, 08/03/16) MORPHINE (Verified Allergy, Unknown, 08/03/16) PHENYTOIN (Verified Allergy, Unknown, 08/03/16) Subjective Constitutional: Reports: chills HEENT: Denies: blurred vision, double vision, ear discharge, ear pain, eye pain , mouth pain, mouth swelling, nose congestion, nose pain, tearing, throat pain, throat swelling Cardiovascular: Denies: chest pain, edema, irregular heart rate, lightheadedness, palpitations, syncope Respiratory: Denies: SOB at rest, SOB with excertion, cough, orthopnea, shortness of breath, sputum, stridor, wheezing Gastrointestinal/Abdominal: Denies: abdomen distended, abdominal pain, black stools, blood in stool, constipated, diarrhea, difficulty swallowing, nausea, poor appetite, poor fluid intake, rectal bleeding, tarry stools, vomiting Genitourinary: Denies: burning, discharge, flank pain, frequency, hematuria, incontinence, pain, urgency 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: Denies: anxiety, depressed, emotional problems, headache, numbness, paresthesia, pre-existing deficit, seizure, tingling, tremors, weakness Endocrine: Reports: other, Denies: excessive sweating, flushing, increased hunger, increased thirst, increased urine, intolerance to cold, intolerance to heat, unexplained weight gain, unexplained weight loss Hematologic/Lymphatic: Denies: anemia, easy bleeding, easy bruising Subjective His pain has been stable on the methadone and uses the Dilaudid as needed. He has no new complaints. Objective Last 24 Hour Vital Signs Date Time Temp Pulse Resp B/P (MAP) Pulse Ox O2 Delivery O2 Flow Rate FiO2 11/03/17 09:33 97.9 11/03/17 09:03 97.9 11/03/17 04:00 97.9 72 15 147/88 100 97.9 11/03/17 00:00 97.7 78 14 116/80 97 97.7 11/02/17 21:06 100 Nasal Cannula 5.0 11/02/17 21:06 Nasal Cannula 5.0 11/02/17 20:00 98.1 80 14 133/84 100 98.1 11/02/17 18:28 98.6 80 18 113/78 96 Room Air 98.6 11/02/17 17:45 98.6 80 18 113/78 98 Room Air 98.6 11/02/17 16:56 97.2 81 19 140/90 97 Nasal Cannula 6.0 97.2 11/02/17 16:56 97.2 11/02/17 16:26 97.2 11/02/17 12:26 97.2 11/02/17 12:15 97.2 84 19 122/67 97 Nasal Cannula 6.0 97.2 11/02/17 11:39 82 Intake and Output 11/02/17 11/03/17 19:00 07:00 Intake Total 150 ml 1225 ml Output Total 2800 ml Balance 150 ml -1575 ml Intake Oral 300 ml IV Total 150 ml 925 ml Output Urine Total 2800 ml # Voids 3 Laboratory Tests 11/03/17 04:50: White Blood Count 14.4H, Red Blood Count 2.72L, Hemoglobin 8.6L, Hematocrit 25.6L, Mean Corpuscular Volume 94, Mean Corpuscular Hemoglobin 31.5H, Mean Corpuscular Hemoglobin Concent 33.4, Red Cell Distribution Width 17.8H, Platelet Count 323, Mean Platelet Volume 7.5, Neutrophils (%) (Auto) 33.5L, Lymphocytes (%) (Auto) 48.6H, Monocytes (%) (Auto) 5.0, Eosinophils (%) (Auto) 10.4H, Basophils (%) (Auto) 2.5H, Erythrocyte Sedimentation Rate 28H, Sodium Level 140, Potassium Level 5.0, Chloride Level 104, Carbon Dioxide Level 32, Anion Gap 4L, Blood Urea Nitrogen 23H, Creatinine 0.7, Estimat Glomerular Filtration Rate > 60, Glucose Level 81, Calcium Level 9.1, Phosphorus Level 4.0 , Magnesium Level 1.9, Total Bilirubin 0.6, Aspartate Amino Transf (AST/SGOT) 49H, Alanine Aminotransferase (ALT/SGPT) 71, Alkaline Phosphatase 175H, Lactate Dehydrogenase 385H, Total Protein 6.9, Albumin 3.6, Globulin 3.3, Albumin/ Globulin Ratio 1.1 Height (Feet): 5 Height (Inches): 11.00 Weight (Pounds): 157 Objective General Appearance: no apparent distress, alert EENT: PERRL/EOMI, normal ENT inspection Neck: non-tender, normal alignment Cardiovascular: normal rate, regular rhythm Respiratory/Chest: decreased breath sounds Abdomen: non tender, soft Edema: no edema noted Neurologic: alert, oriented x 3 Skin: warm/dry ANTIONE PHILLIPS Nov 03, 2017 10:11
[2017-11-03] MEDS ORDERED: 1/2 NS 1000ml IV ONE ×2 (10:14→14:29)
[2017-11-03 12:00] VITALS: BP 118/67
--- NOTE | 2017-11-03 12:59 | Physician Query ---
--------- THIS DOCUMENT IS A PERMANENT PART OF THE MEDICAL RECORD --------- PLEASE COMPLETE THE DOCUMENT BEFORE SIGNING Dear KENNEDY Hensley Date: 11/03/17 Manager Android/CDS Name: Timothy Delaney Manager Android / CDS Phone #[phone] Exercise your independent professional judgment when responding to query. Question asked do not imply a particular answer is desired/expected Clinical Documentation States: "Severe diastolic heart disease" documented in: H & P (11/02/17) Clinical Findings Show: BNP 96 Diuretic N/A Echocardiogram N/A Please Clarify: Acuity [] Acute [] Chronic [] Acute on Chronic Type [] Systolic [] Diastolic [] Systolic & Diastolic (Combined) [] Left Heart failure [] Other: Etiology [] CHF due to Hypertension [] Cardiomyopathy [] Valvular Heart Disease [] Coronary Artery Disease [] Unable to determine [] Other: Condition Present on Admission: [] Yes [] No []Clinically Undeterminable Please also document in your Progress Notes and/or Discharge Summary and indicate if the condition was present on admission. Dr. KENNEDY MOORE Date/Time MTDD
--- NOTE | 2017-11-03 15:01 | Pulmonology Progress Note ---
Assessment/Plan Problems: (1) Sickle cell pain crisis (2) Intractable pain (3) Interstitial lung disease (4) severe diastolic heart disease (5) Pulmonary HTN (6) Seizure disorder Assessment/Plan iv fluids check LDH, and bilirubin daily analgesics pain management check h/h daily symptomatic treatment. Subjective ROS Limited/Unobtainable: No Interval Events: feeling better, wants to go home now Constitutional: Reports: no symptoms Allergies: Coded Allergies: PENTAMIDINE ISETHIONATE (Verified Allergy, Severe, palpitations, 08/27/17) AMPICILLIN (Verified Allergy, Unknown, 08/03/16) KETOROLAC (Verified Allergy, Unknown, 08/03/16) MORPHINE (Verified Allergy, Unknown, 08/03/16) PHENYTOIN (Verified Allergy, Unknown, 08/03/16) Objective Last 24 Hour Vital Signs Date Time Temp Pulse Resp B/P (MAP) Pulse Ox O2 Delivery O2 Flow Rate FiO2 11/03/17 14:06 97.9 11/03/17 13:36 97.9 11/03/17 12:00 97.9 78 22 118/67 97 Room Air 97.9 11/03/17 09:33 97.9 11/03/17 09:03 97.9 11/03/17 08:00 97.9 84 21 110/71 99 Room Air 97.9 11/03/17 04:00 97.9 72 15 147/88 100 97.9 11/03/17 00:00 97.7 78 14 116/80 97 97.7 11/02/17 21:06 100 Nasal Cannula 5.0 11/02/17 21:06 Nasal Cannula 5.0 11/02/17 20:00 98.1 80 14 133/84 100 98.1 11/02/17 18:28 98.6 80 18 113/78 96 Room Air 98.6 11/02/17 17:45 98.6 80 18 113/78 98 Room Air 98.6 11/02/17 16:56 97.2 81 19 140/90 97 Nasal Cannula 6.0 97.2 11/02/17 16:56 97.2 11/02/17 16:26 97.2 Intake and Output 11/02/17 11/03/17 19:00 07:00 Intake Total 150 ml 1225 ml Output Total 2800 ml Balance 150 ml -1575 ml Intake Oral 300 ml IV Total 150 ml 925 ml Output Urine Total 2800 ml # Voids 3 General Appearance: WD/WN HEENT: normocephalic, atraumatic Respiratory/Chest: chest wall non-tender, lungs clear Cardiovascular: normal peripheral pulses, normal rate Abdomen: normal bowel sounds, no organomegaly Genitourinary: normal external genitalia Extremities: no cyanosis Skin: no rash 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: allergist/md 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 Lymphatic: no neck adenopathy Laboratory Tests 11/03/17 04:50: White Blood Count 14.4H, Red Blood Count 2.72L, Hemoglobin 8.6L, Hematocrit 25.6L, Mean Corpuscular Volume 94, Mean Corpuscular Hemoglobin 31.5H, Mean Corpuscular Hemoglobin Concent 33.4, Red Cell Distribution Width 17.8H, Platelet Count 323, Mean Platelet Volume 7.5, Neutrophils (%) (Auto) 33.5L, Lymphocytes (%) (Auto) 48.6H, Monocytes (%) (Auto) 5.0, Eosinophils (%) (Auto) 10.4H, Basophils (%) (Auto) 2.5H, Erythrocyte Sedimentation Rate 28H, Sodium Level 140, Potassium Level 5.0, Chloride Level 104, Carbon Dioxide Level 32, Anion Gap 4L, Blood Urea Nitrogen 23H, Creatinine 0.7, Estimat Glomerular Filtration Rate > 60, Glucose Level 81, Calcium Level 9.1, Phosphorus Level 4.0 , Magnesium Level 1.9, Total Bilirubin 0.6, Aspartate Amino Transf (AST/SGOT) 49H, Alanine Aminotransferase (ALT/SGPT) 71, Alkaline Phosphatase 175H, Lactate Dehydrogenase 385H, Total Protein 6.9, Albumin 3.6, Globulin 3.3, Albumin/ Globulin Ratio 1.1 Hanna Mckenna MD Nov 03, 2017 15:01
--- NOTE | 2017-11-03 17:05 | Discharge Summary ---
Discharge Summary Hospital Course Date of Admission Nov 01, 2017 at 18:53 Date of Discharge Nov 03, 2017 at 14:30 Admitting Diagnosis SICKLE PAIN CRISIS ALETHEA Barrett is a 41 year old male who was admitted on Nov 01, 2017 at 18:53 for Sickle Pain Crisis Hospital Course [id number] Discharge Discharge Disposition Patient left Brooklynn Rae NP Nov 03, 2017 17:05
--- NOTE | 2017-11-04 00:30 | Discharge Summary 2 SIG ---
DATE OF ADMISSION: 11/01/2017 DATE OF DISCHARGE: 11/03/2017 RESTAURANT OPERATIONS MANAGER: Oleg Perera M.D. BRIEF HOSPITAL COURSE: The patient is a 41-year-old male with history of sickle cell disease and COPD, was brought in by EMS for complaints of difficulty breathing and generalized body pain mostly around the hip and knees as well as generalized weakness. On evaluation at ED, he was noted to have leukocytosis, WBC was 15, hemoglobin was 8, and hematocrit 25. Reticulocyte count of 1. EKG was in normal sinus rhythm and chest x-ray showed diffuse interstitial prominence similar to previous imaging. He was then admitted for sickle cell crisis and was seen by pain specialist. He was given methadone and Dilaudid. Full treatment was not carried out as the patient left against medical advice. FINAL DIAGNOSES: 1. Sickle cell crisis. 2. Intractable pain. 3. Interstitial lung disease. 4. Severe diastolic heart disease, chronic. 5. Pulmonary hypertension. 6. Seizure disorder. DISPOSITION: The patient left AMA. Hanna Mckenna M.D. I have been assigned to dictate discharge summary on this account and I was not involved in the patient's management. Brooklynn Borja N.P. DR: ALESHIA JOB#: [id number] CC:
== END 2017-11-03 14:30 | disposition left against medical advice (07) | DRG 812 ==
LOC: EMR 15:42 → EDBEDREQ 18:47 → 2E 18:53 → EDBEDREQ 20:21 → 4W 11-02 17:31
DX: D57.00 Hb-SS disease with crisis, unspecified (principal); J84.9 Interstitial pulmonary disease, unspecified; I50.32 Chronic diastolic (congestive) heart failure; M87.852 Other osteonecrosis, left femur; M87.851 Other osteonecrosis, right femur; G40.909 Epilepsy, unspecified, not intractable, without status epilepticus; I27.20 Pulmonary hypertension, unspecified; Z88.6 Allergy status to analgesic agent; Z88.1 Allergy status to other antibiotic agents; Z88.8 Allergy status to other drugs, medicaments and biological substances; J44.9 Chronic obstructive pulmonary disease, unspecified
CPT/HCPCS: 36415; 71045; 80053; 80307; 81003; 82550; 82553; 83615; 83735; 83880; 84100; 84484; 85025; 85044; 85610; 85651; 85730; 93005; 94760; 99285; J2405

== ENCOUNTER 2017-11-14 13:32 | Emergency (ER) | payer MEDICARE, OTHER ==
[~2017-11-14] VITALS: Ht 180.3 cm; Wt 73.9 kg
[~2017-11-14 13:32] MED LIST changes: +ACETAMINOPHEN325 M1 ORAL; +DOCUSATE SODIU100 MG ORAL; +PRADAXA150 MG ORAL
[2017-11-14 13:54] VITALS: BP 113/93
--- NOTE | 2017-11-14 14:17 | Emergency Room Report ---
History of Present Illness General Chief Complaint: Pain Source: Patient Present Illness HPI Patient is a 41-year-old male presented after increased generalized weakness. Patient prior history of sickle cell disease. He reports having the recent increased generalized weakness. He was noted to have the recent hospitalization for which he was noted to be somewhat anemic. The patient reports having the similar symptoms previously. The patient had been recently hospitalized at this facility and is followed by Dr. Marco Ocampo Allergies: Coded Allergies: PENTAMIDINE ISETHIONATE (Verified Allergy, Severe, palpitations, 08/27/17) AMPICILLIN (Verified Allergy, Unknown, 08/03/16) KETOROLAC (Verified Allergy, Unknown, 08/03/16) MORPHINE (Verified Allergy, Unknown, 08/03/16) PHENYTOIN (Verified Allergy, Unknown, 08/03/16) Patient History Reviewed Nursing Documentation: PMH: Agreed; PSxH: Agreed Nursing Documentation-PMH Past Medical History: No History, Except For Hx Cardiac Problems: Yes - sickle cell Hx Hypertension: Yes Hx Asthma: Yes Hx COPD: Yes Hx Cancer: No Hx Gastrointestinal Problems: No Hx Neurological Problems: Yes Hx Seizures: Yes Review of Systems All Other Systems: negative except mentioned in HPI Physical Exam Vital Signs Date Time Temp Pulse Resp B/P (MAP) Pulse Ox O2 Delivery O2 Flow Rate FiO2 11/14/17 13:44 98.0 111 12 113/93 95 Nasal Cannula 4.0 98.1 General Appearance: alert, GCS 15, Chronically Ill Eyes: bilateral eye abnormal EOM - disconjugate gaze chronic ENT: hearing grossly normal, normal pharynx Neck: full range of motion, supple, thyroid normal, no meningismus Respiratory: chest non-tender, lungs clear, normal breath sounds, no rhonchi Cardiovascular #1: tachycardia Gastrointestinal: normal inspection, normal bowel sounds, non tender, soft Musculoskeletal: normal inspection, back normal Neurologic: normal inspection, alert, oriented x3, responsive, operations clerk III-XII nml as tested Psychiatric: normal inspection, judgement/insight normal Medical Decision Making Diagnostic Impression: Primary Impression: Sickle cell disease Additional Impression: Interstitial lung disease ER Course Patient presented for sickle cell pain. Differential diagnosis included but was not limited to have sickle cell pain crisis, aplastic crisis, sequestration , osteomyelitis, acute chest syndrome among others. EKG interpreted by me showed sinus tachycardia with a rate of [address] changes patient was noted to have diffuse T wave inversion. Patient was given prescription for azithromycin. Patient was to have adequate doses of narcotic pain medication at home. 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 Patient advised to return if he felt worse. Labs Test 11/14/17 14:27 11/14/17 14:45 White Blood Count 18.0 K/UL (4.8-10.8) Red Blood Count 2.63 M/UL (4.70-6.10) Hemoglobin 8.2 G/DL (14.2-18.0) Hematocrit 23.9 % (42.0-52.0) Mean Corpuscular Volume 91 FL (80-99) Mean Corpuscular Hemoglobin 31.4 PG (27.0-31.0) Mean Corpuscular Hemoglobin Concent 34.5 G/DL (32.0-36.0) Red Cell Distribution Width 16.2 % (11.6-14.8) Platelet Count 354 K/UL (150-450) Mean Platelet Volume 7.0 FL (6.5-10.1) Neutrophils (%) (Auto) % (45.0-75.0) Lymphocytes (%) (Auto) % (20.0-45.0) Monocytes (%) (Auto) % (1.0-10.0) Eosinophils (%) (Auto) % (0.0-3.0) Basophils (%) (Auto) % (0.0-2.0) Differential Total Cells Counted 100 Neutrophils % (Manual) 54 % (45-75) Lymphocytes % (Manual) 32 % (20-45) Monocytes % (Manual) 6 % (1-10) Eosinophils % (Manual) 5 % (0-3) Basophils % (Manual) 1 % (0-2) Band Neutrophils 2 % (0-8) Platelet Estimate Adequate Platelet Morphology Normal Hypochromasia 2+ Anisocytosis 2+ Sodium Level 140 MMOL/L (136-145) Potassium Level 5.1 MMOL/L (3.5-5.1) Chloride Level 105 MMOL/L (98-107) Carbon Dioxide Level 28 MMOL/L (21-32) Anion Gap 7 mmol/L (5-15) Blood Urea Nitrogen 45 mg/dL (7-18) Creatinine 1.2 MG/DL (0.55-1.30) Estimat Glomerular Filtration Rate > 60 mL/min (>60) Glucose Level 112 MG/DL (74-106) Calcium Level 9.3 MG/DL (8.5-10.1) Total Bilirubin 1.1 MG/DL (0.2-1.0) Direct Bilirubin 0.2 MG/DL (0.0-0.3) Aspartate Amino Transf (AST/SGOT) 44 U/L (15-37) Alanine Aminotransferase (ALT/SGPT) 62 U/L (12-78) Alkaline Phosphatase 171 U/L (46-116) Total Protein 7.3 G/DL (6.4-8.2) Albumin 4.0 G/DL (3.4-5.0) Globulin 3.3 g/dL Albumin/Globulin Ratio 1.2 (1.0-2.7) Urine Color Yellow Urine Appearance Clear Urine pH 5 (4.5-8.0) Urine Specific [place] 1.010 (1.005-1.035) Urine Protein 3+ (NEGATIVE) Urine Glucose (UA) Negative (NEGATIVE) Urine Ketones Negative (NEGATIVE) Urine Occult Blood 1+ (NEGATIVE) Urine Nitrite Negative (NEGATIVE) Urine Bilirubin Negative (NEGATIVE) Urine Urobilinogen Normal MG/DL (0.0-1.0) Urine Leukocyte Esterase 1+ (NEGATIVE) Urine RBC 0-2 /HPF (0 - 0) Urine WBC 0-2 /HPF (0 - 0) Urine Squamous Epithelial Cells None /LPF (NONE/OCC) Urine Bacteria Few /HPF (NONE) Urine Opiates Screen Positive (NEGATIVE) Urine Barbiturates Screen Positive (NEGATIVE) Phencyclidine (PCP) Screen Negative (NEGATIVE) Urine Amphetamines Screen Negative (NEGATIVE) Urine Benzodiazepines Screen Negative (NEGATIVE) Urine Cocaine Screen Negative (NEGATIVE) Urine Marijuana (THC) Screen Negative (NEGATIVE) EKG Diagnostic Results Rate: tachycardiac Rhythm: NSR ST Segments: no acute changes Last Vital Signs Date Time Temp Pulse Resp B/P (MAP) Pulse Ox O2 Delivery O2 Flow Rate FiO2 11/14/17 13:54 98.1 107 22 113/93 97 Nasal Cannula 4.0 98.1 Status: improved Disposition: HOME, SELF-CARE Condition: Stable Scripts Azithromycin* (ZITHROMAX*) 250 Mg Tablet 250 MG ORAL DAILY, #6 TAB 0 Refills Take two tables once daily for 1 day, then one tablet once daily for 4 days. Prov: Jose Antonio Davies 11/14/17 Jose Antonio Davies November 14, 2017 14:17
[2017-11-14 14:37] LABS: HEMATOCRIT 23.9 % (42.0-52.0); HEMOGLOBIN 8.2 G/DL (14.2-18.0); MEAN CORPUSCULAR VOLUME 91 FL (80-99); PLATELET COUNT 354 K/UL (150-450); RED BLOOD COUNT 2.63 M/UL (4.70-6.10); RED CELL DISTRIBUTION WIDTH 16.2 % (11.6-14.8)
[2017-11-14 15:00] LABS: APPEARANCE,URINE CLEAR; BILIRUBIN, URINE NEGATIVE (NEGATIVE); GLUCOSE, URINE (UA) NEGATIVE (NEGATIVE); KETONES,URINE NEGATIVE (NEGATIVE); LEUKOCYTE ESTERASE ,URINE 1+ (NEGATIVE); NITRITE,URINE NEGATIVE (NEGATIVE); PH,URINE 5 (4.5-8.0); PROTEIN,URINE 3+ (NEGATIVE); UROBILINOGEN,URINE NORMAL MG/DL (0.0-1.0)
[2017-11-14 15:01] LABS: COLOR,URINE YELLOW
[2017-11-14 15:07] VITALS: BP 98/77
[2017-11-14 15:30] LABS: ANION GAP 7 mmol/L (5-15); BLOOD UREA NITROGEN 45 mg/dL (7-18); CALCIUM 9.3 MG/DL (8.5-10.1); CARBON DIOXIDE 28 MMOL/L (21-32); CHLORIDE 105 MMOL/L (98-107); CREATININE 1.2 MG/DL (0.55-1.30); POTASSIUM 5.1 MMOL/L (3.5-5.1); SODIUM 140 MMOL/L (136-145)
[2017-11-14 15:41] LABS: ALANINE AMINOTRANSFERASE 62 U/L (12-78); ALBUMIN/GLOBULIN RATIO 1.2 (1.0-2.7); ALKALINE PHOSPHATASE 171 U/L (46-116); ASPARTATE AMINO TRANSFERASE 44 U/L (15-37); BILIRUBIN,TOTAL 1.1 MG/DL (0.2-1.0)
[2017-11-14 15:44] LABS: BILIRUBIN,DIRECT 0.2 MG/DL (0.0-0.3)
[2017-11-14] MEDS ORDERED: DiphenhydrAMINE 50mg/ml Inj IVP ONE (16:00)
[2017-11-14] MEDS ORDERED: ZITHROMAX250 MG ORAL (16:06)
[2017-11-14 17:00] VITALS: BP 124/76
--- NOTE | 2017-11-15 15:50 | Cardiology Report ---
APPROVED REPORT EKG Measurement Heart [id number] Sinus tachycardia T wave abnormality, consider anterior ischemia Abnormal ECG
== END 2017-11-14 16:59 | disposition home or self-care (01) ==
LOC: EMR 14:20
DX: D57.1 Sickle-cell disease without crisis (principal); J84.9 Interstitial pulmonary disease, unspecified; I10 Essential (primary) hypertension; J44.9 Chronic obstructive pulmonary disease, unspecified; Z88.5 Allergy status to narcotic agent; Z88.8 Allergy status to other drugs, medicaments and biological substances; Z88.0 Allergy status to penicillin
CPT/HCPCS: 36415; 80053; 80307; 81001; 82248; 85007; 85025; 86850; 86900; 86901; 93005; 96374; 96375; 99284; J1170; J1200

== ENCOUNTER 2018-01-01 15:50 | Inpatient (IN) | payer MEDICARE, OTHER ==
[~2018-01-01] VITALS: Ht 180.3 cm; Wt 79.8 kg
[~2018-01-01 15:50] MED LIST changes: +ZITHROMAX250 MG ORAL
[2018-01-01] MEDS ORDERED: DiphenhydrAMINE 50mg/ml Inj IVP ONE ×2 (16:30→19:15)
--- NOTE | 2018-01-01 16:36 | Emergency Room Report ---
History of Present Illness General Chief Complaint: Chest Pain Source: Patient Present Illness HPI Patient presents with complaints of chest pain Reports some of the family members had a cold and he thinks he might have caught pneumonia from them Denies any headache patient has palpitation sensation Also claims of pain diffusely in the upper joints legs denies any pleurisy Denies any recent trauma Patient has heme oncologist specialty follow-up Allergies: Coded Allergies: PENTAMIDINE ISETHIONATE (Verified Allergy, Severe, palpitations, 08/27/17) AMPICILLIN (Verified Allergy, Unknown, 08/03/16) KETOROLAC (Verified Allergy, Unknown, 08/03/16) MORPHINE (Verified Allergy, Unknown, 08/03/16) PHENYTOIN (Verified Allergy, Unknown, 08/03/16) Patient History Past Medical History: see triage record Pertinent Family History: none Reviewed Nursing Documentation: PMH: Agreed; PSxH: Agreed Nursing Documentation-PMH Past Medical History: No History, Except For Hx Cardiac Problems: Yes - sickle cell Hx Hypertension: Yes Hx Asthma: Yes Hx COPD: Yes Hx Cancer: No Hx Gastrointestinal Problems: No Hx Neurological Problems: Yes Hx Seizures: Yes Review of Systems All Other Systems: negative except mentioned in HPI Physical Exam Vital Signs Date Time Temp Pulse Resp B/P (MAP) Pulse Ox O2 Delivery O2 Flow Rate FiO2 01/01/18 15:58 98.9 138 22 125/78 98 Room Air 99.0 Sp02 EP Interpretation: reviewed, normal General Appearance: no apparent distress Head: normocephalic, atraumatic Eyes: bilateral eye other - Lazy eye on the right side ENT: normal pharynx, no angioedema Neck: supple Respiratory: lungs clear, normal breath sounds Cardiovascular #1: tachycardia Gastrointestinal: non tender, soft Neurologic: alert, oriented x3 Skin: normal color, no rash Lymphatic: no adenopathy Procedures Critical Care Time Critical Care Time 50 minutes for multiple re-evaluations Critical findings concerning for cardiopulmonary end organ disease not including any procedural time Medical Decision Making Diagnostic Impression: Primary Impression: Sickle cell crisis Additional Impressions: severe diastolic heart disease Pulmonary HTN ER Course Patient is a fairly complex patient with multiple differential to consideration including but not limited to cardiac cardiopulmonary and vascular emergencies Given the patient's medical history extensive workup was also initiated Blood work reveals elevated reticulocyte count White blood cell count is higher than previous and hemoglobin is lower Patient requiring extensive pain control IV hydration and admitted for further inpatient care Labs Test 01/01/18 16:48 01/02/18 05:20 White Blood Count 22.0 K/UL (4.8-10.8) 19.4 K/UL (4.8-10.8) Red Blood Count 2.54 M/UL (4.70-6.10) 2.32 M/UL (4.70-6.10) Hemoglobin 7.5 G/DL (14.2-18.0) 7.1 G/DL (14.2-18.0) Hematocrit 22.4 % (42.0-52.0) 20.5 % (42.0-52.0) Mean Corpuscular Volume 88 FL (80-99) 89 FL (80-99) Mean Corpuscular Hemoglobin 29.6 PG (27.0-31.0) 30.6 PG (27.0-31.0) Mean Corpuscular Hemoglobin Concent 33.6 G/DL (32.0-36.0) 34.5 G/DL (32.0-36.0) Red Cell Distribution Width 17.9 % (11.6-14.8) 18.5 % (11.6-14.8) Platelet Count 368 K/UL (150-450) 341 K/UL (150-450) Mean Platelet Volume 6.4 FL (6.5-10.1) 7.3 FL (6.5-10.1) Neutrophils (%) (Auto) % (45.0-75.0) % (45.0-75.0) Lymphocytes (%) (Auto) % (20.0-45.0) % (20.0-45.0) Monocytes (%) (Auto) % (1.0-10.0) % (1.0-10.0) Eosinophils (%) (Auto) % (0.0-3.0) % (0.0-3.0) Basophils (%) (Auto) % (0.0-2.0) % (0.0-2.0) Differential Total Cells Counted 100 100 Neutrophils % (Manual) 62 % (45-75) 54 % (45-75) Lymphocytes % (Manual) 21 % (20-45) 29 % (20-45) Monocytes % (Manual) 9 % (1-10) 8 % (1-10) Eosinophils % (Manual) 7 % (0-3) 9 % (0-3) Basophils % (Manual) 0 % (0-2) 0 % (0-2) Band Neutrophils 1 % (0-8) 0 % (0-8) Platelet Estimate Adequate Adequate Platelet Morphology Normal Normal Hypochromasia 1+ 2+ Anisocytosis 1+ 2+ Reticulocyte Count 2.2 % (0.0-2.0) Sodium Level 140 MMOL/L (136-145) 142 MMOL/L (136-145) Potassium Level 4.5 MMOL/L (3.5-5.1) 5.0 MMOL/L (3.5-5.1) Chloride Level 105 MMOL/L (98-107) 107 MMOL/L (98-107) Carbon Dioxide Level 31 MMOL/L (21-32) 33 MMOL/L (21-32) Anion Gap 4 mmol/L (5-15) 2 mmol/L (5-15) Blood Urea Nitrogen 33 mg/dL (7-18) 23 mg/dL (7-18) Creatinine 1.1 MG/DL (0.55-1.30) 1.0 MG/DL (0.55-1.30) Estimat Glomerular Filtration Rate > 60 mL/min (>60) > 60 mL/min (>60) Glucose Level 121 MG/DL (74-106) 112 MG/DL (74-106) Calcium Level 8.9 MG/DL (8.5-10.1) 8.8 MG/DL (8.5-10.1) Sickle Cells Occasional Total Bilirubin 0.8 MG/DL (0.2-1.0) Aspartate Amino Transf (AST/SGOT) 46 U/L (15-37) Alanine Aminotransferase (ALT/SGPT) 49 U/L (12-78) Alkaline Phosphatase 149 U/L (46-116) Lactate Dehydrogenase 418 U/L (81-234) Total Protein 6.4 G/DL (6.4-8.2) Albumin 3.5 G/DL (3.4-5.0) Globulin 2.9 g/dL Albumin/Globulin Ratio 1.2 (1.0-2.7) Rhythm Strip Diag. Results EP Interpretation: yes Rate: 110 Rhythm: no PVC's, no ectopy, other - Sinus tach Chest X-Ray Diagnostic Results Chest X-Ray Diagnostic Results : Chest X-Ray Ordered: Yes # of Views/Limited/Complete: 1 View Indication: Chest Pain EP Interpretation: Yes Interpretation: no effusion, no pneumothorax, other - Patchy atelectasis cardiomegaly similar to previous presentation however question developing lower infiltrated, Impression: Other - Question acuity possible lower lobe infiltrate Electronically Signed by: Griffin Banda DO Last Vital Signs Date Time Temp Pulse Resp B/P (MAP) Pulse Ox O2 Delivery O2 Flow Rate FiO2 01/01/18 15:58 98.9 138 22 125/78 98 Room Air 99.0 Status: improved Disposition: ADMITTED INPATIENT Condition: Serious Griffin Banda DO Jan 01, 2018 16:36
[2018-01-01 16:46] VITALS: BP 125/78
[2018-01-01 17:04] LABS: HEMATOCRIT 22.4 % (42.0-52.0); HEMOGLOBIN 7.5 G/DL (14.2-18.0); MEAN CORPUSCULAR VOLUME 88 FL (80-99); PLATELET COUNT 368 K/UL (150-450); RED BLOOD COUNT 2.54 M/UL (4.70-6.10); RED CELL DISTRIBUTION WIDTH 17.9 % (11.6-14.8)
[2018-01-01 17:13] LABS: ANION GAP 4 mmol/L (5-15); BLOOD UREA NITROGEN 33 mg/dL (7-18); CALCIUM 8.9 MG/DL (8.5-10.1); CARBON DIOXIDE 31 MMOL/L (21-32); CHLORIDE 105 MMOL/L (98-107); CREATININE 1.1 MG/DL (0.55-1.30); POTASSIUM 4.5 MMOL/L (3.5-5.1); SODIUM 140 MMOL/L (136-145)
[2018-01-01] MEDS ORDERED: Morphine Sulfate 10mg/ml Inj IVP ONE ×2 (17:30→19:15)
--- NOTE | 2018-01-01 17:42 | Diagnostic Imaging Report ---
Indication: Reason For Exam: CP Technique: One view of the chest Comparison: 11/01/2017 Findings: Right chest Mediport unchanged in position with its catheter tip the region of the lower SVC/cavoatrial junction. Heart size and mediastinal contours are stable. Again noted are bilateral reticular nodular opacities suggesting underlying interstitial lung disease, likely chronic. There is increased opacity at the right base compared to the prior exam suggesting superimposed infection. There is no effusion or pneumothorax. No acute osseous abnormality. IMPRESSION: Bilateral interstitial opacities, similar to the prior exam dressing chronic interstitial disease/fibrotic change. Interval development of focal new opacity/increased density involving the right lower lung most concerning for areas of superimposed acute infiltrate. Clinical correlation and follow-up exam recommended.
[2018-01-01] MEDS ORDERED: ACETAMINOPHEN1 EACH ORAL (19:29)
[2018-01-01] MEDS ORDERED: PHENOBARBITAL16.2 MG PO (19:32)
[2018-01-01] MEDS ORDERED: GABAPENTIN300 MG ORAL (19:33)
[2018-01-01] MEDS ORDERED: Mylanta II UD 30ml ORAL PRN (20:35)
[2018-01-01] MEDS ORDERED: Zolpidem 5mg tab ORAL PRN (21:00)
[2018-01-01] MEDS ORDERED: Miralax 17gm pkt ORAL PRN (21:00)
[2018-01-02] VITALS (7 sets, daily range): BP systolic 114–145; BP diastolic 64–93
[2018-01-02] MEDS: LORazepam Inj 2mg/ml 1ml IV PRN (01:53)
[2018-01-02 06:15] LABS: HEMATOCRIT 20.5 % (42.0-52.0); HEMOGLOBIN 7.1 G/DL (14.2-18.0); MEAN CORPUSCULAR VOLUME 89 FL (80-99); PLATELET COUNT 341 K/UL (150-450); RED BLOOD COUNT 2.32 M/UL (4.70-6.10); RED CELL DISTRIBUTION WIDTH 18.5 % (11.6-14.8); WHITE BLOOD COUNT 19.4 K/UL (4.8-10.8)
[2018-01-02 06:32] LABS: ALANINE AMINOTRANSFERASE 49 U/L (12-78); ALBUMIN 3.5 G/DL (3.4-5.0); ALBUMIN/GLOBULIN RATIO 1.2 (1.0-2.7); ALKALINE PHOSPHATASE 149 U/L (46-116); ANION GAP 2 mmol/L (5-15); ASPARTATE AMINO TRANSFERASE 46 U/L (15-37); BILIRUBIN,TOTAL 0.8 MG/DL (0.2-1.0); BLOOD UREA NITROGEN 23 mg/dL (7-18); CALCIUM 8.8 MG/DL (8.5-10.1); CARBON DIOXIDE 33 MMOL/L (21-32); CHLORIDE 107 MMOL/L (98-107); LACTATE DEHYDROGENASE 418 U/L (81-234); SODIUM 142 MMOL/L (136-145)
[2018-01-02] MEDS: DiphenhydrAMINE 50mg/ml Inj IVP PRN ×4 (08:22→21:15)
[2018-01-02] MEDS: Hydroxyurea 500mg cap ORAL SCH ×2 (08:22→17:21)
[2018-01-02] MEDS: Morphine Sulfate 10mg/ml Inj IVP PRN ×4 (08:23→21:15)
--- NOTE | 2018-01-02 08:26 | Consultation ---
Consult Note Consult Note [id number] Job ID Marco Dutton MD Jan 02, 2018 08:26
--- NOTE | 2018-01-02 08:31 | General Progress Note ---
Assessment/Plan Assessment/Plan (1) Intractable pain (2) Avascular necrosis of femur head, left (3) Sickle cell crisis (4) Avascular necrosis of femur head, right Patient will be continued on methadone and Morphine as needed. Pt was d/w Dr. Perera and he concurred. Subjective Date patient seen: Jan 02, 2018 Time patient seen: 07:30 - am Allergies: Coded Allergies: PENTAMIDINE ISETHIONATE (Verified Allergy, Severe, palpitations, 08/27/17) AMPICILLIN (Verified Allergy, Unknown, 08/03/16) KETOROLAC (Verified Allergy, Unknown, 08/03/16) MORPHINE (Verified Allergy, Unknown, 08/03/16) PHENYTOIN (Verified Allergy, Unknown, 08/03/16) Subjective Constitutional: Reports: chills HEENT: Denies: blurred vision, double vision, ear discharge, ear pain, eye pain , mouth pain, mouth swelling, nose congestion, nose pain, tearing, throat pain, throat swelling Cardiovascular: Denies: chest pain, edema, irregular heart rate, lightheadedness, palpitations, syncope Respiratory: Denies: SOB at rest, SOB with excertion, cough, orthopnea, shortness of breath, sputum, stridor, wheezing Gastrointestinal/Abdominal: Denies: abdomen distended, abdominal pain, black stools, blood in stool, constipated, diarrhea, difficulty swallowing, nausea, poor appetite, poor fluid intake, rectal bleeding, tarry stools, vomiting Genitourinary: Denies: burning, discharge, flank pain, frequency, hematuria, incontinence, pain, urgency 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: Denies: anxiety, depressed, emotional problems, headache, numbness, paresthesia, pre-existing deficit, seizure, tingling, tremors, weakness Endocrine: Reports: other, Denies: excessive sweating, flushing, increased hunger, increased thirst, increased urine, intolerance to cold, intolerance to heat, unexplained weight gain, unexplained weight loss Hematologic/Lymphatic: Denies: anemia, easy bleeding, easy bruising Subjective Patient is a known patient from prior admission admitted under the care of Dr. Zarate for sickle cell crisis c/o severe pain. Started on Methadone 60mg Q6H ATC and Morphine 10mg IV Q4h PRN. He has no other complaints at this time. Objective Last 24 Hour Vital Signs Date Time Temp Pulse Resp B/P (MAP) Pulse Ox O2 Delivery O2 Flow Rate FiO2 01/02/18 04:45 97.9 92 20 128/64 97 Nasal Cannula 97.9 01/02/18 00:43 97.9 99 20 145/93 99 Nasal Cannula 97.9 01/01/18 21:45 99.0 22 121/82 98 Room Air 210.2 01/01/18 19:22 99.0 01/01/18 17:34 99.0 01/01/18 16:46 99.0 22 125/78 98 Room Air 99.0 01/01/18 16:46 138 22 Room Air 01/01/18 15:58 98.9 138 22 125/78 98 Room Air 99.0 Intake and Output 01/01/18 01/02/18 19:00 07:00 Intake Total 0 ml Balance 0 ml Intake Oral 0 ml # Voids 3 Laboratory Tests 01/01/18 16:48: White Blood Count 22.0H, Red Blood Count 2.54L, Hemoglobin 7.5L, Hematocrit 22.4L, Mean Corpuscular Volume 88, Mean Corpuscular Hemoglobin 29.6, Mean Corpuscular Hemoglobin Concent 33.6, Red Cell Distribution Width 17.9H, Platelet Count 368, Mean Platelet Volume 6.4L, Neutrophils (%) (Auto) , Lymphocytes (%) (Auto) , Monocytes (%) (Auto) , Eosinophils (%) (Auto) , Basophils (%) (Auto) , Differential Total Cells Counted 100, Neutrophils % ( Manual) 62, Lymphocytes % (Manual) 21, Monocytes % (Manual) 9, Eosinophils % ( Manual) 7H, Basophils % (Manual) 0, Band Neutrophils 1, Platelet Estimate Adequate, Platelet Morphology Normal, Hypochromasia 1+, Anisocytosis 1+, Reticulocyte Count 2.2H, Sodium Level 140, Potassium Level 4.5, Chloride Level 105, Carbon Dioxide Level 31, Anion Gap 4L, Blood Urea Nitrogen 33H, Creatinine 1.1, Estimat Glomerular Filtration Rate > 60, Glucose Level 121H, Calcium Level 8.9 01/02/18 05:20: White Blood Count 19.4H, Red Blood Count 2.32L, Hemoglobin 7.1L, Hematocrit 20.5L, Mean Corpuscular Volume 89, Mean Corpuscular Hemoglobin 30.6, Mean Corpuscular Hemoglobin Concent 34.5, Red Cell Distribution Width 18.5H, Platelet Count 341, Mean Platelet Volume 7.3, Neutrophils (%) (Auto) , Lymphocytes (%) (Auto) , Monocytes (%) (Auto) , Eosinophils (%) (Auto) , Basophils (%) (Auto) , Neutrophils % (Manual) [Pending], Lymphocytes % (Manual) [Pending], Platelet Estimate [Pending], Platelet Morphology [Pending], Sodium Level 142, Potassium Level 5.0, Chloride Level 107, Carbon Dioxide Level 33H, Anion Gap 2L, Blood Urea Nitrogen 23H, Creatinine 1.0, Estimat Glomerular Filtration Rate > 60, Glucose Level 112H, Calcium Level 8.8, Total Bilirubin 0.8 , Aspartate Amino Transf (AST/SGOT) 46H, Alanine Aminotransferase (ALT/SGPT) 49 , Alkaline Phosphatase 149H, Lactate Dehydrogenase 418H, Total Protein 6.4, Albumin 3.5, Globulin 2.9, Albumin/Globulin Ratio 1.2 Height (Feet): 5 Height (Inches): 11.00 Weight (Pounds): 173 Objective General Appearance: no apparent distress, alert EENT: PERRL/EOMI, normal ENT inspection Neck: non-tender, normal alignment Cardiovascular: normal rate, regular rhythm Respiratory/Chest: decreased breath sounds Abdomen: non tender, soft Edema: no edema noted Neurologic: alert, oriented x 3 Skin: warm/dry Cj Anderson Jan 02, 2018 08:31
[2018-01-02] MEDS: Heparin 5000 units/ml inj SUBQ SCH ×2 (08:36→21:00)
[2018-01-02] MEDS: Azithromycin 250 MG in D5W 275 ML IV SCH (10:57)
--- NOTE | 2018-01-02 12:59 | Consultation ---
History of Present Illness General Chief Complaint: Chest Pain Present Illness Allergies: Coded Allergies: PENTAMIDINE ISETHIONATE (Verified Allergy, Severe, palpitations, 08/27/17) AMPICILLIN (Verified Allergy, Unknown, 08/03/16) KETOROLAC (Verified Allergy, Unknown, 08/03/16) MORPHINE (Verified Allergy, Unknown, 08/03/16) PHENYTOIN (Verified Allergy, Unknown, 08/03/16) Medication History Scheduled Acetaminophen/Diphenhydramine (Acetaminophen Pm Caplet), 2 TAB ORAL BEDTIME, ( Reported) Folic Acid* (Folic Acid*), 1 MG ORAL DAILY Gabapentin* (Gabapentin*), 350 MG ORAL THREE TIMES A DAY, (Reported) Hydromorphone HCl (Dilaudid), 14 MG ORAL EVERY 4 HOURS, (Reported) Hydroxyurea* (Hydrea*), 500 MG PO BID Methadone Hcl* (Methadone*), 60 MG PO Q6HR, (Reported) Phenobarbital (Phenobarbital), 16.2 MG PO BID, (Reported) Scheduled PRN Diphenhydramine HCl (Benadryl), 50 MG PO Q4HR PRN for Itching, (Reported) Discontinued Medications Azithromycin* (Zithromax*), 250 MG ORAL DAILY Discontinued Reason: Pt stopped taking med Dabigatran Etexilate Mesylate* (Pradaxa*), 150 MG ORAL EVERY 12 HOURS, (Reported ) Discontinued Reason: Pt stopped taking med Docusate Sodium* (Docusate Sodium*), 100 MG ORAL TWICE A DAY, (Reported) Discontinued Reason: Pt stopped taking med Patient History Healthcare decision maker Resuscitation status Full Code Advanced Directive on File No Physical Exam Last 24 Hour Vital Signs Date Time Temp Pulse Resp B/P (MAP) Pulse Ox O2 Delivery O2 Flow Rate FiO2 01/02/18 11:58 97.1 102 18 127/80 97.1 01/02/18 08:53 97.5 01/02/18 08:47 97.5 86 18 119/79 100 97.5 01/02/18 08:23 97.9 01/02/18 08:00 97.5 86 18 114/79 100 Room Air 97.5 01/02/18 04:45 97.9 92 20 128/64 97 Nasal Cannula 97.9 01/02/18 00:43 97.9 99 20 145/93 99 Nasal Cannula 97.9 01/01/18 21:45 99.0 22 121/82 98 Room Air 210.2 01/01/18 19:22 99.0 01/01/18 17:34 99.0 01/01/18 16:46 99.0 22 125/78 98 Room Air 99.0 01/01/18 16:46 138 22 Room Air 01/01/18 15:58 98.9 138 22 125/78 98 Room Air 99.0 Intake and Output 01/01/18 01/02/18 19:00 07:00 Intake Total 0 ml Balance 0 ml Intake Oral 0 ml # Voids 3 Laboratory Tests Test 01/01/18 16:48 01/02/18 05:20 White Blood Count 22.0 K/UL (4.8-10.8) H 19.4 K/UL (4.8-10.8) H Red Blood Count 2.54 M/UL (4.70-6.10) L 2.32 M/UL (4.70-6.10) L Hemoglobin 7.5 G/DL (14.2-18.0) L 7.1 G/DL (14.2-18.0) L Hematocrit 22.4 % (42.0-52.0) L 20.5 % (42.0-52.0) L Mean Corpuscular Volume 88 FL (80-99) 89 FL (80-99) Mean Corpuscular Hemoglobin 29.6 PG (27.0-31.0) 30.6 PG (27.0-31.0) Mean Corpuscular Hemoglobin Concent 33.6 G/DL (32.0-36.0) 34.5 G/DL (32.0-36.0) Red Cell Distribution Width 17.9 % (11.6-14.8) H 18.5 % (11.6-14.8) H Platelet Count 368 K/UL (150-450) 341 K/UL (150-450) Mean Platelet Volume 6.4 FL (6.5-10.1) L 7.3 FL (6.5-10.1) Neutrophils (%) (Auto) % (45.0-75.0) % (45.0-75.0) Lymphocytes (%) (Auto) % (20.0-45.0) % (20.0-45.0) Monocytes (%) (Auto) % (1.0-10.0) % (1.0-10.0) Eosinophils (%) (Auto) % (0.0-3.0) % (0.0-3.0) Basophils (%) (Auto) % (0.0-2.0) % (0.0-2.0) Differential Total Cells Counted 100 100 Neutrophils % (Manual) 62 % (45-75) 54 % (45-75) Lymphocytes % (Manual) 21 % (20-45) 29 % (20-45) Monocytes % (Manual) 9 % (1-10) 8 % (1-10) Eosinophils % (Manual) 7 % (0-3) H 9 % (0-3) H Basophils % (Manual) 0 % (0-2) 0 % (0-2) Band Neutrophils 1 % (0-8) 0 % (0-8) Platelet Estimate Adequate Adequate Platelet Morphology Normal Normal Hypochromasia 1+ 2+ Anisocytosis 1+ 2+ Reticulocyte Count 2.2 % (0.0-2.0) H Sodium Level 140 MMOL/L (136-145) 142 MMOL/L (136-145) Potassium Level 4.5 MMOL/L (3.5-5.1) 5.0 MMOL/L (3.5-5.1) Chloride Level 105 MMOL/L (98-107) 107 MMOL/L (98-107) Carbon Dioxide Level 31 MMOL/L (21-32) 33 MMOL/L (21-32) H Anion Gap 4 mmol/L (5-15) L 2 mmol/L (5-15) L Blood Urea Nitrogen 33 mg/dL (7-18) H 23 mg/dL (7-18) H Creatinine 1.1 MG/DL (0.55-1.30) 1.0 MG/DL (0.55-1.30) Estimat Glomerular Filtration Rate > 60 mL/min (>60) > 60 mL/min (>60) Glucose Level 121 MG/DL (74-106) H 112 MG/DL (74-106) H Calcium Level 8.9 MG/DL (8.5-10.1) 8.8 MG/DL (8.5-10.1) Sickle Cells Occasional H Total Bilirubin 0.8 MG/DL (0.2-1.0) Aspartate Amino Transf (AST/SGOT) 46 U/L (15-37) H Alanine Aminotransferase (ALT/SGPT) 49 U/L (12-78) Alkaline Phosphatase 149 U/L (46-116) H Lactate Dehydrogenase 418 U/L (81-234) H Total Protein 6.4 G/DL (6.4-8.2) Albumin 3.5 G/DL (3.4-5.0) Globulin 2.9 g/dL Albumin/Globulin Ratio 1.2 (1.0-2.7) Height (Feet): 5 Height (Inches): 11.00 Weight (Pounds): 173 Medications Current Medications Medications (Trade) Dose Ordered Sig/Anthony Route PRN Reason Start Time Stop Time Status Last Admin Dose Admin Acetaminophen (Tylenol) 650 mg Q4H PRN ORAL fever 01/01/18 20:35 01/31/18 20:34 Al Hydroxide/Mg Hydroxide (Mylanta II) 30 ml Q6H PRN ORAL dyspepsia 01/01/18 20:35 01/31/18 20:34 Azithromycin 250 mg/Dextrose 275 ml @ 275 mls/hr Q24HRS IV 01/02/18 10:00 01/06/18 10:59 01/02/18 10:57 Ceftriaxone Sodium 1 gm/ Dextrose 110 ml @ 220 mls/hr Q24H IVPB 01/02/18 13:00 01/09/18 12:59 Dextrose (Dextrose 50%) 25 ml STAT PRN IV Hypoglycemia 01/01/18 20:41 01/31/18 20:40 Dextrose (Dextrose 50%) 50 ml STAT PRN IV Hypoglycemia 01/01/18 20:42 01/31/18 20:41 Diphenhydramine HCl (Benadryl) 50 mg Q4H PRN IVP Itching 01/02/18 08:00 02/01/18 07:59 01/02/18 12:47 Gabapentin (Neurontin) 300 mg THREE TIMES A DAY ORAL 01/02/18 09:00 02/01/18 08:59 01/02/18 08:22 Heparin Sodium (Porcine) (Heparin 5000 units/ml) 5,000 units EVERY 12 HOURS SUBQ 01/02/18 09:00 02/01/18 08:59 Hydroxyurea (Hydrea) 500 mg BID ORAL 01/02/18 09:00 01/07/18 08:59 01/02/18 08:22 Lorazepam (Ativan 2mg/ml 1ml) 0.5 mg Q4H PRN IV For Anxiety 01/01/18 20:35 01/08/18 20:34 01/02/18 01:53 Methadone HCl (Methadone HCl) 60 mg Q6HR ORAL 01/02/18 00:00 01/09/18 00:00 01/02/18 05:30 Morphine Sulfate (Morphine Sulfate) 10 mg Q4H PRN IVP pain 7-10 01/01/18 21:42 01/08/18 21:41 01/02/18 12:48 Ondansetron HCl (Zofran) 4 mg Q6H PRN IVP Nausea & Vomiting 01/01/18 20:35 01/31/18 20:34 Polyethylene Glycol (Miralax) 17 gm HSPRN PRN ORAL Constipation 01/01/18 21:00 01/31/18 20:59 Sodium Chloride 1,000 ml @ 75 mls/hr [id number] IV 01/01/18 23:00 01/31/18 22:59 01/02/18 12:49 Zolpidem Tartrate (Ambien) 5 mg HSPRN PRN ORAL Insomnia 01/01/18 21:00 01/08/18 20:59 Hanna Mckenna MD Jan 02, 2018 12:59
[2018-01-02] MEDS: cefTRIAXone 1 GM in D5W 110 ML IVPB SCH (14:18)
--- NOTE | 2018-01-02 17:48 | History & Physical ---
History and Physical History & Physicial Dictated for Int Med-Dr Zarate no. [id number]. Mehdi Rosales MD Jan 02, 2018 17:48
--- NOTE | 2018-01-02 22:00 | History and Physical Report ---
DATE OF ADMISSION: 01/02/2018 CHIEF COMPLAINT: The patient is a 42-year-old male with history of sickle cell disease presents with a chief complaint of chest pain. HISTORY OF PRESENT ILLNESS: The patient has a history of sickle cell disease. The patient is followed as an outpatient by Dr. Aquilino Dutton. The patient presented to [place] emergency room. The patient was complaining of one-day history of chest pain. There was no radiation to the jaw or to the shoulder. The patient states he may have had an upper respiratory tract infection recently, which may have given him pneumonia. The patient presented to [place] emergency room complaining of chest pain. The patient was admitted for chest pain to rule out acute coronary syndrome. PAST MEDICAL HISTORY: Significant for sickle cell disease. PAST SURGICAL HISTORY: The patient denies. CURRENT MEDICATIONS: 1. Folic acid 1 mg p.o. daily. 2. Gabapentin 300 mg one tablet p.o. 3 times daily. 3. Dilaudid mg p.o. q.4 hours p.r.n. 4. Hydroxyurea 500 mg p.o. twice daily. 5. Methadone 60 mg p.o. q.6 hours. 6. Phenobarbital 16.2 mg p.o. twice daily. ALLERGIES: 1. Ampicillin. 2. Ketoralac. 3. Morphine. 4. Phenytoin. 5. Pentamidine. SOCIAL HISTORY: The patient is single and is unemployed. The patient admits to tobacco use. The patient denies alcohol use. REVIEW OF SYSTEMS: CONSTITUTIONAL: The patient denies weight loss or weight gain. The patient denies fevers or chills. HEENT: The patient denies ear or throat pain. The patient denies headache. CARDIOVASCULAR: The patient complains of chest pain as above. The patient denies palpitations. CHEST: The patient complains of cough. The patient denies wheezes or shortness of breath. ABDOMEN: The patient denies nausea, vomiting, diarrhea, or constipation. GENITOURINARY: The patient denies dysuria or increased frequency of urination. NEUROMUSCULAR: The patient denies seizures or generalized weakness. PHYSICAL EXAMINATION: VITAL SIGNS: Temperature 97.5, respirations 18, pulse 86, and blood pressure 119/79. GENERAL: The patient is a well-developed and well-nourished male, in no apparent distress. HEENT: Eyes, pupils are equal and responsive to light and accommodation. Extraocular movements are intact. NECK: Supple. No lymphadenopathy. CHEST: Lungs are clear to auscultation bilaterally without wheezes or rales. CARDIOVASCULAR: Regular rhythm and rate. S1 and S2 are normal without murmurs, rubs, or gallops. ABDOMEN: Soft, nontender, and nondistended. Positive bowel sounds. No evidence of hepatosplenomegaly. Currently, no rebound or guarding noted. EXTREMITIES: Negative for clubbing, cyanosis, or edema. RECTAL/GENITAL: Refused. NEUROLOGIC: Cranial nerves II through XII are grossly intact without focal deficits. Motor strength is 5/5 bilaterally. Deep tendon reflexes are 2+ plantar. LABORATORY AND DIAGNOSTIC STUDIES: WBC 22.0, hemoglobin 7.5, hematocrit 22.4, and platelets 368,000. Sodium 140, potassium 4.5, chloride 105, CO2 of 31, BUN 33, creatinine 1.1, and glucose 121. Chest x-ray was reported as bilateral interstitial opacities consistent with acute pneumonia. ASSESSMENT: This is a 42-year-old male. 1. Bilateral pneumonia. 2. Chest pain. 3. Sickle cell disease. 4. Sickle cell anemia. 5. Sickle cell crisis. 6. Leukocytosis. TREATMENT: 1. Pneumonia. A Pulmonary consultation has been obtained with Dr. Hanna Mckenna. The patient has been started empirically on azithromycin and ceftriaxone. We will follow recommendations of Pulmonary. 2. Chest pain. This may be secondary to pneumonia as above. Differential includes sickle cell crisis. We will follow recommendations of Hematology/Oncology, Dr. Marco Dutton. 3. Sickle cell disease/sickle cell crisis. As above, a Hematology consultation has been obtained with Dr. Marco Dutton. We will follow recommendations of Dr. Dutton. Continue hydroxyurea as above. 4. Leukocytosis. This may be secondary to pneumonia as above. Mehdi Rosales M.D. DR: RAFIQ JOB#: [id number] CC:
--- NOTE | 2018-01-02 23:52 | Consultation ---
History of Present Illness General Date patient seen: Jan 02, 2018 Chief Complaint: Chest Pain Present Illness HPI 42-year-old male with history of sickle cell disease presents with a chief complaint of chest pain. the pt refuses care at times and is irritable. The pt is not endorsing psychotic sxs. no si/hi. Allergies: Coded Allergies: PENTAMIDINE ISETHIONATE (Verified Allergy, Severe, palpitations, 08/27/17) AMPICILLIN (Verified Allergy, Unknown, 08/03/16) KETOROLAC (Verified Allergy, Unknown, 08/03/16) MORPHINE (Verified Allergy, Unknown, 08/03/16) PHENYTOIN (Verified Allergy, Unknown, 08/03/16) Medication History Scheduled Acetaminophen/Diphenhydramine (Acetaminophen Pm Caplet), 2 TAB ORAL BEDTIME, ( Reported) Folic Acid* (Folic Acid*), 1 MG ORAL DAILY Gabapentin* (Gabapentin*), 350 MG ORAL THREE TIMES A DAY, (Reported) Hydromorphone HCl (Dilaudid), 14 MG ORAL EVERY 4 HOURS, (Reported) Hydroxyurea* (Hydrea*), 500 MG PO BID Methadone Hcl* (Methadone*), 60 MG PO Q6HR, (Reported) Phenobarbital (Phenobarbital), 16.2 MG PO BID, (Reported) Scheduled PRN Diphenhydramine HCl (Benadryl), 50 MG PO Q4HR PRN for Itching, (Reported) Discontinued Medications Azithromycin* (Zithromax*), 250 MG ORAL DAILY Discontinued Reason: Pt stopped taking med Dabigatran Etexilate Mesylate* (Pradaxa*), 150 MG ORAL EVERY 12 HOURS, (Reported ) Discontinued Reason: Pt stopped taking med Docusate Sodium* (Docusate Sodium*), 100 MG ORAL TWICE A DAY, (Reported) Discontinued Reason: Pt stopped taking med Patient History Limited by: medical condition History Provided By: Patient, Medical Record, PMD Healthcare decision maker Resuscitation status Full Code Advanced Directive on File No Past Medical/Surgical History Past Medical/Surgical History: (1) Pneumonia (2) Purulent bronchitis (3) Leukocytosis (4) Uncontrolled seizures (5) Avascular necrosis of femur head, left (6) Acute deep vein thrombosis (DVT) of both lower extremities (7) Myalgia (8) Avascular necrosis of femur head, right (9) Dyspnea (10) Seizure disorder (11) Intractable pain (12) Pain (13) Sickle cell disease (14) Interstitial lung disease (15) Pulmonary HTN (16) severe diastolic heart disease (17) Sickle cell crisis Review of Systems Psychiatric: Reports: prior hx, anxiety, depressed feelings, emotional problems Physical Exam General Appearance: no apparent distress, alert Neurologic: oriented x 3, responsive, depressed affect Last 24 Hour Vital Signs Date Time Temp Pulse Resp B/P (MAP) Pulse Ox O2 Delivery O2 Flow Rate FiO2 01/02/18 21:15 98.2 01/02/18 20:00 98.2 83 18 115/76 98 98.2 01/02/18 17:52 98.6 01/02/18 17:22 98.6 01/02/18 15:54 98.6 97 18 121/66 97 98.6 01/02/18 11:58 97.1 102 18 127/80 97.1 01/02/18 08:47 97.5 86 18 119/79 100 97.5 01/02/18 08:23 97.9 01/02/18 08:00 97.5 86 18 114/79 100 Room Air 97.5 01/02/18 04:45 97.9 92 20 128/64 97 Nasal Cannula 97.9 01/02/18 00:43 97.9 99 20 145/93 99 Nasal Cannula 97.9 Intake and Output 01/01/18 01/02/18 19:00 07:00 Intake Total 0 ml Balance 0 ml Intake Oral 0 ml # Voids 3 Laboratory Tests Test 01/02/18 05:20 White Blood Count 19.4 K/UL (4.8-10.8) H Red Blood Count 2.32 M/UL (4.70-6.10) L Hemoglobin 7.1 G/DL (14.2-18.0) L Hematocrit 20.5 % (42.0-52.0) L Mean Corpuscular Volume 89 FL (80-99) Mean Corpuscular Hemoglobin 30.6 PG (27.0-31.0) Mean Corpuscular Hemoglobin Concent 34.5 G/DL (32.0-36.0) Red Cell Distribution Width 18.5 % (11.6-14.8) H Platelet Count 341 K/UL (150-450) Mean Platelet Volume 7.3 FL (6.5-10.1) Neutrophils (%) (Auto) % (45.0-75.0) Lymphocytes (%) (Auto) % (20.0-45.0) Monocytes (%) (Auto) % (1.0-10.0) Eosinophils (%) (Auto) % (0.0-3.0) Basophils (%) (Auto) % (0.0-2.0) Differential Total Cells Counted 100 Neutrophils % (Manual) 54 % (45-75) Lymphocytes % (Manual) 29 % (20-45) Monocytes % (Manual) 8 % (1-10) Eosinophils % (Manual) 9 % (0-3) H Basophils % (Manual) 0 % (0-2) Band Neutrophils 0 % (0-8) Platelet Estimate Adequate Platelet Morphology Normal Hypochromasia 2+ Anisocytosis 2+ Sickle Cells Occasional H Sodium Level 142 MMOL/L (136-145) Potassium Level 5.0 MMOL/L (3.5-5.1) Chloride Level 107 MMOL/L (98-107) Carbon Dioxide Level 33 MMOL/L (21-32) H Anion Gap 2 mmol/L (5-15) L Blood Urea Nitrogen 23 mg/dL (7-18) H Creatinine 1.0 MG/DL (0.55-1.30) Estimat Glomerular Filtration Rate > 60 mL/min (>60) Glucose Level 112 MG/DL (74-106) H Calcium Level 8.8 MG/DL (8.5-10.1) Total Bilirubin 0.8 MG/DL (0.2-1.0) Aspartate Amino Transf (AST/SGOT) 46 U/L (15-37) H Alanine Aminotransferase (ALT/SGPT) 49 U/L (12-78) Alkaline Phosphatase 149 U/L (46-116) H Lactate Dehydrogenase 418 U/L (81-234) H Total Protein 6.4 G/DL (6.4-8.2) Albumin 3.5 G/DL (3.4-5.0) Globulin 2.9 g/dL Albumin/Globulin Ratio 1.2 (1.0-2.7) Height (Feet): 5 Height (Inches): 11.00 Weight (Pounds): 173 Medications Current Medications Medications (Trade) Dose Ordered Sig/Anthony Route PRN Reason Start Time Stop Time Status Last Admin Dose Admin Acetaminophen (Tylenol) 650 mg Q4H PRN ORAL fever 01/01/18 20:35 01/31/18 20:34 Al Hydroxide/Mg Hydroxide (Mylanta II) 30 ml Q6H PRN ORAL dyspepsia 01/01/18 20:35 01/31/18 20:34 Azithromycin 250 mg/Dextrose 275 ml @ 275 mls/hr Q24HRS IV 01/02/18 10:00 01/06/18 10:59 01/02/18 10:57 Ceftriaxone Sodium 1 gm/ Dextrose 110 ml @ 220 mls/hr Q24H IVPB 01/02/18 13:00 01/09/18 12:59 01/02/18 14:18 Dextrose (Dextrose 50%) 25 ml STAT PRN IV Hypoglycemia 01/01/18 20:41 01/31/18 20:40 Dextrose (Dextrose 50%) 50 ml STAT PRN IV Hypoglycemia 01/01/18 20:42 01/31/18 20:41 Diphenhydramine HCl (Benadryl) 50 mg Q4H PRN IVP Itching 01/02/18 08:00 02/01/18 07:59 01/02/18 21:15 Gabapentin (Neurontin) 300 mg THREE TIMES A DAY ORAL 01/02/18 09:00 02/01/18 08:59 01/02/18 17:22 Heparin Sodium (Porcine) (Heparin 5000 units/ml) 5,000 units EVERY 12 HOURS SUBQ 01/02/18 09:00 02/01/18 08:59 Hydroxyurea (Hydrea) 500 mg BID ORAL 01/02/18 09:00 01/07/18 08:59 01/02/18 17:21 Lorazepam (Ativan 2mg/ml 1ml) 0.5 mg Q4H PRN IV For Anxiety 01/01/18 20:35 01/08/18 20:34 01/02/18 01:53 Methadone HCl (Methadone HCl) 60 mg Q6HR ORAL 01/02/18 00:00 01/09/18 00:00 01/02/18 23:46 Morphine Sulfate (Morphine Sulfate) 10 mg Q4H PRN IVP pain 7-10 01/01/18 21:42 01/08/18 21:41 6/19/18 21:15 Ondansetron HCl (Zofran) 4 mg Q6H PRN IVP Nausea & Vomiting 01/01/18 20:35 01/31/18 20:34 Polyethylene Glycol (Miralax) 17 gm HSPRN PRN ORAL Constipation 01/01/18 21:00 01/31/18 20:59 Sodium Chloride 1,000 ml @ 75 mls/hr [id number] IV 01/01/18 23:00 01/31/18 22:59 01/02/18 12:49 Zolpidem Tartrate (Ambien) 5 mg HSPRN PRN ORAL Insomnia 01/01/18 21:00 01/08/18 20:59 Assessment/Plan Status: stable Assessment/Plan MDD Anxiety d/o -Ativan prn -low dose ssri -ptovided /Deedee Magana M.D. Jan 02, 2018 23:52
[2018-01-03] VITALS (7 sets, daily range): BP systolic 114–137; BP diastolic 70–96
[2018-01-03] MEDS: DiphenhydrAMINE 50mg/ml Inj IVP PRN ×6 (01:14→22:01)
[2018-01-03] MEDS: Morphine Sulfate 10mg/ml Inj IVP PRN ×6 (01:15→22:05)
[2018-01-03 06:38] LABS: HEMATOCRIT 20.6 % (42.0-52.0); HEMOGLOBIN 7.2 G/DL (14.2-18.0); MEAN CORPUSCULAR VOLUME 87 FL (80-99); PLATELET COUNT 326 K/UL (150-450); RED BLOOD COUNT 2.36 M/UL (4.70-6.10)
[2018-01-03 06:52] LABS: ANION GAP 4 mmol/L (5-15); BLOOD UREA NITROGEN 17 mg/dL (7-18); CALCIUM 8.9 MG/DL (8.5-10.1); CARBON DIOXIDE 31 MMOL/L (21-32); CHLORIDE 105 MMOL/L (98-107); CREATININE 0.9 MG/DL (0.55-1.30); POTASSIUM 4.5 MMOL/L (3.5-5.1); SODIUM 140 MMOL/L (136-145)
--- NOTE | 2018-01-03 07:12 | Cardiology Report ---
APPROVED REPORT EKG Measurement Heart [id number] Sinus tachycardia RSR' or QR pattern in V1 suggests right ventricular conduction delay Moderate voltage criteria for LVH, may be normal variant T wave abnormality, consider anterior ischemia Abnormal ECG
--- NOTE | 2018-01-03 07:59 | General Progress Note ---
Assessment/Plan Assessment/Plan (1) Intractable pain (2) Avascular necrosis of femur head, left (3) Sickle cell crisis (4) Avascular necrosis of femur head, right Patient will be continued on methadone and Morphine as needed. Pt was d/w Dr. Perera and he concurred. Subjective Date patient seen: Jan 03, 2018 Time patient seen: 07:45 - am Allergies: Coded Allergies: PENTAMIDINE ISETHIONATE (Verified Allergy, Severe, palpitations, 08/27/17) AMPICILLIN (Verified Allergy, Unknown, 08/03/16) KETOROLAC (Verified Allergy, Unknown, 08/03/16) MORPHINE (Verified Allergy, Unknown, 08/03/16) PHENYTOIN (Verified Allergy, Unknown, 08/03/16) Subjective Constitutional: Reports: chills HEENT: Denies: blurred vision, double vision, ear discharge, ear pain, eye pain , mouth pain, mouth swelling, nose congestion, nose pain, tearing, throat pain, throat swelling Cardiovascular: Denies: chest pain, edema, irregular heart rate, lightheadedness, palpitations, syncope Respiratory: Denies: SOB at rest, SOB with excertion, cough, orthopnea, shortness of breath, sputum, stridor, wheezing Gastrointestinal/Abdominal: Denies: abdomen distended, abdominal pain, black stools, blood in stool, constipated, diarrhea, difficulty swallowing, nausea, poor appetite, poor fluid intake, rectal bleeding, tarry stools, vomiting Genitourinary: Denies: burning, discharge, flank pain, frequency, hematuria, incontinence, pain, urgency 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: Denies: anxiety, depressed, emotional problems, headache, numbness, paresthesia, pre-existing deficit, seizure, tingling, tremors, weakness Endocrine: Reports: other, Denies: excessive sweating, flushing, increased hunger, increased thirst, increased urine, intolerance to cold, intolerance to heat, unexplained weight gain, unexplained weight loss Hematologic/Lymphatic: Denies: anemia, easy bleeding, easy bruising Subjective Patient in bed and shows no signs of distress. His pain has been tolerated on the Methadone and morphine. C/o itching and using Benadryl. Objective Last 24 Hour Vital Signs Date Time Temp Pulse Resp B/P (MAP) Pulse Ox O2 Delivery O2 Flow Rate FiO2 6/20/18 01:45 98.4 01/03/18 00:00 98.4 81 18 137/96 96 Nasal Cannula 2.0 98.4 01/02/18 21:15 98.2 01/02/18 20:00 98.2 83 18 115/76 98 98.2 01/02/18 17:22 98.6 01/02/18 15:54 98.6 97 18 121/66 97 98.6 01/02/18 11:58 97.1 102 18 127/80 97.1 01/02/18 08:47 97.5 86 18 119/79 100 97.5 01/02/18 08:23 97.9 01/02/18 08:00 97.5 86 18 114/79 100 Room Air 97.5 Intake and Output 01/02/18 01/03/18 19:00 07:00 Intake Total 325 ml 1300 ml Output Total 700 ml 1300 ml Balance -375 ml 0 ml Intake Oral 250 ml 400 ml IV Total 75 ml 900 ml Output Urine Total 700 ml 1300 ml # Voids 2 Laboratory Tests 01/03/18 05:30: White Blood Count 21.0H, Red Blood Count 2.36L, Hemoglobin 7.2L, Hematocrit 20.6L, Mean Corpuscular Volume 87, Mean Corpuscular Hemoglobin 30.6, Mean Corpuscular Hemoglobin Concent 35.0, Red Cell Distribution Width 18.0H, Platelet Count 326, Mean Platelet Volume 8.4, Neutrophils (%) (Auto) , Lymphocytes (%) (Auto) , Monocytes (%) (Auto) , Eosinophils (%) (Auto) , Basophils (%) (Auto) , Neutrophils % (Manual) [Pending], Lymphocytes % (Manual) [Pending], Platelet Estimate [Pending], Platelet Morphology [Pending], Sodium Level 140, Potassium Level 4.5, Chloride Level 105, Carbon Dioxide Level 31, Anion Gap 4L, Blood Urea Nitrogen 17, Creatinine 0.9, Estimat Glomerular Filtration Rate > 60, Glucose Level 125H, Calcium Level 8.9, Lactate Dehydrogenase 452H Height (Feet): 5 Height (Inches): 11.00 Weight (Pounds): 173 Objective General Appearance: no apparent distress, alert EENT: PERRL/EOMI, normal ENT inspection Neck: non-tender, normal alignment Cardiovascular: normal rate, regular rhythm Respiratory/Chest: decreased breath sounds Abdomen: non tender, soft Edema: no edema noted Neurologic: alert, oriented x 3 Skin: warm/dry Cj Anderson Jan 03, 2018 07:59
[2018-01-03] MEDS: Heparin 5000 units/ml inj SUBQ SCH ×2 (09:00→21:00)
[2018-01-03] MEDS: Hydroxyurea 500mg cap ORAL SCH ×2 (09:36→17:25)
--- NOTE | 2018-01-03 10:15 | Consultation ---
DATE OF CONSULTATION: 01/02/2018 HEMATOLOGY/ONCOLOGY CONSULTATION CONSULTING PHYSICIAN: Marco Dutton M.D. REQUESTING PHYSICIANS: 1. Wan Zarate M.D. 2. Mehdi Rosales M.D. REASON FOR CONSULTATION: Evaluation of sickle cell crisis. IDENTIFYING DATA: Dear Dr. Rosales and Dr. Zarate, The patient is a pleasant 42-year-old, I have seen him multiple times in the past with history of sickle cell crisis, most recent presentation to the hospital was November 14, most recent admission was November 01, 2017. Reviewed the patient's laboratories. The patient has a sickle cell crisis history confirm sickle cell. Reticulocyte count noted upon admission at this time to be 2.2. WBC was 22,000, which is elevated, increased from the patient's baseline. The patient's baseline is generally less than 20,000 and currently is 22,000. At this time, the patient presents with pain in the lower extremities, noted to have evidence of potential crisis, seen by Dr. Banda where the patient has found that the patient's family had a cold. Denies any headache. 01:15 sensation changes. Complains of diffuse pain in the upper joints. Denies any pleurisy. 01:24 the patient has been taking hydroxyurea and I have asked the patient to come to the clinic for further monitor in the future. Reticulocyte count 2.2, hemoglobin 10.1. Hematology Service was consulted. PAST MEDICAL HISTORY: As noted above. PAST SURGICAL HISTORY: None noted. ALLERGIES: Ampicillin, ketorolac, phenytoin, and pentamidine. REVIEW OF SYSTEMS: CONSTITUTIONAL: No fevers, chills, or night sweats. SKIN: No rashes, bumps, or itching. HEENT: No headache, hearing or visual changes. BREASTS: No lumps, pain, or discharge. PULMONARY: No cough, sputum, or shortness of breath. GASTROINTESTINAL: No nausea, vomiting, or diarrhea. GENITOURINARY: No dysuria, frequency, or urgency. MUSCULOSKELETAL: No joint swelling, muscle pain, or trauma. PHYSICAL EXAMINATION: VITAL SIGNS: Reviewed. GENERAL: No distress. LUNGS: Decreased breath sounds. CARDIOVASCULAR: Regular rate. No S3 or S4. ABDOMEN: Soft, nontender, and nondistended. EXTREMITIES: No cyanosis, swelling, or edema noted. LABORATORY DATA: Reviewed. BUN of 20, creatinine of 1. WBC 19.4, hemoglobin 10.1, and platelet count 221,000. Imaging, x-ray reviewed shows bilateral interstitial opacities similar to prior exam 02:31 opacity involving the right lower lung, which 02:36 areas superimposed acute infiltrate. ASSESSMENT AND RECOMMENDATIONS: 1. Sickle cell crisis. The patient has been admitted multiple times in the past. Potentially, this presentation is secondary to infection. The patient may require antibiotics for pneumonia. I have started on ceftriaxone at this time a total five-day course has been initiated. In addition, the patient has a common cold. 2. Leukocytosis. The patient has a sickle cell crisis which is other cause. Closely monitor, use hydroxyurea fluids as needed. Morphine. 3. Reticulocytosis. Currently reticulocyte is 2.2, evaluate further as needed. No evidence of hemolysis at this particular moment. We will draw the patient's bilirubin if required, if elevated in the near future. 4. Transaminitis, related to iron overload in the past. 5. Noncompliance history, the patient has been admitted multiple times before and at this time recommend the patient to seek Oncology/Hematology followup. 6. Chronic obstructive pulmonary disease history. Pain management and respiratory management. Further monitor. 7. Diastolic heart failure. I appreciate the consultation. Marco Dutton M.D. DR: CHERIE JOB#: [id number] CC:
[2018-01-03] MEDS: Azithromycin 250 MG in D5W 275 ML IV SCH (10:27)
--- NOTE | 2018-01-03 11:04 | General Progress Note ---
Assessment/Plan Assessment/Plan MDD Anxiety -Neurontin -ativan prn Subjective Date patient seen: Jan 03, 2018 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: Reports: anxiety Allergies: Coded Allergies: PENTAMIDINE ISETHIONATE (Verified Allergy, Severe, palpitations, 08/27/17) AMPICILLIN (Verified Allergy, Unknown, 08/03/16) KETOROLAC (Verified Allergy, Unknown, 08/03/16) MORPHINE (Verified Allergy, Unknown, 08/03/16) PHENYTOIN (Verified Allergy, Unknown, 08/03/16) Subjective the pt is on Neurontin which helps anxiety he is asking for blood transfusion. Objective Last 24 Hour Vital Signs Date Time Temp Pulse Resp B/P (MAP) Pulse Ox O2 Delivery O2 Flow Rate FiO2 01/03/18 10:06 98.6 01/03/18 09:36 98.6 01/03/18 08:00 98.6 102 20 127/91 92 Nasal Cannula 2.0 98.6 01/03/18 00:00 98.4 81 18 137/96 96 Nasal Cannula 2.0 98.4 01/02/18 21:15 98.2 01/02/18 20:00 98.2 83 18 115/76 98 98.2 01/02/18 17:22 98.6 01/02/18 15:54 98.6 97 18 121/66 97 98.6 01/02/18 11:58 97.1 102 18 127/80 97.1 Intake and Output 01/02/18 01/03/18 19:00 07:00 Intake Total 325 ml 1300 ml Output Total 700 ml 1300 ml Balance -375 ml 0 ml Intake Oral 250 ml 400 ml IV Total 75 ml 900 ml Output Urine Total 700 ml 1300 ml # Voids 2 Laboratory Tests 01/03/18 05:30: White Blood Count 21.0H, Red Blood Count 2.36L, Hemoglobin 7.2L, Hematocrit 20.6L, Mean Corpuscular Volume 87, Mean Corpuscular Hemoglobin 30.6, Mean Corpuscular Hemoglobin Concent 35.0, Red Cell Distribution Width 18.0H, Platelet Count 326, Mean Platelet Volume 8.4, Neutrophils (%) (Auto) , Lymphocytes (%) (Auto) , Monocytes (%) (Auto) , Eosinophils (%) (Auto) , Basophils (%) (Auto) , Differential Total Cells Counted 100, Neutrophils % ( Manual) 60, Lymphocytes % (Manual) 22, Monocytes % (Manual) 4, Eosinophils % ( Manual) 13H, Basophils % (Manual) 1, Band Neutrophils 0, Platelet Estimate Adequate, Platelet Morphology Normal, Polychromasia , Hypochromasia 2+, Anisocytosis 2+, Sickle Cells OccasionalH, Sodium Level 140, Potassium Level 4.5 , Chloride Level 105, Carbon Dioxide Level 31, Anion Gap 4L, Blood Urea Nitrogen 17, Creatinine 0.9, Estimat Glomerular Filtration Rate > 60, Glucose Level 125H, Calcium Level 8.9, Lactate Dehydrogenase 452H Height (Feet): 5 Height (Inches): 11.00 Weight (Pounds): 177 General Appearance: no apparent distress, alert Neurologic: oriented x 3, responsive, depressed affect Deedee Sims M.D. Jan 03, 2018 11:04
--- NOTE | 2018-01-03 11:42 | General Progress Note ---
Assessment/Plan Status: stable Assessment/Plan #. Sickle cell crisis. The patient has been admitted multiple times in the past for similar symptoms, also with hx of stroke and complications --> continue ceftriaxone, total five-day course for potential infection --> retic and ldh daily --> ivf and pain control, incentive spirometer #. Leukocytosis. The patient has a sickle cell crisis which is other cause. --> Closely monitor, use hydroxyurea fluids as needed. Morphine. #. Transaminitis, related to iron overload in the past. #. Noncompliance history, the patient has been admitted multiple times before and at this time recommend the patient to seek Oncology/Hematology followup. #. Chronic obstructive pulmonary disease history. Pain management and respiratory management. #. Diastolic heart failure. Subjective Date patient seen: Jan 03, 2018 ROS Limited/Unobtainable: Yes Allergies: Coded Allergies: PENTAMIDINE ISETHIONATE (Verified Allergy, Severe, palpitations, 08/27/17) AMPICILLIN (Verified Allergy, Unknown, 08/03/16) KETOROLAC (Verified Allergy, Unknown, 08/03/16) MORPHINE (Verified Allergy, Unknown, 08/03/16) PHENYTOIN (Verified Allergy, Unknown, 08/03/16) All Systems: reviewed and negative except above Subjective Pt in bed and shows no signs of distress. His pain has been tolerated on the Methadone and morphine. C/o itching and using Benadryl Objective Last 24 Hour Vital Signs Date Time Temp Pulse Resp B/P (MAP) Pulse Ox O2 Delivery O2 Flow Rate FiO2 01/03/18 10:06 98.6 01/03/18 09:36 98.6 01/03/18 08:00 98.6 102 20 127/91 92 Nasal Cannula 2.0 98.6 01/03/18 00:00 98.4 81 18 137/96 96 Nasal Cannula 2.0 98.4 01/02/18 21:15 98.2 01/02/18 20:00 98.2 83 18 115/76 98 98.2 01/02/18 17:22 98.6 01/02/18 15:54 98.6 97 18 121/66 97 98.6 01/02/18 11:58 97.1 102 18 127/80 97.1 Intake and Output 01/02/18 01/03/18 19:00 07:00 Intake Total 325 ml 1300 ml Output Total 700 ml 1300 ml Balance -375 ml 0 ml Intake Oral 250 ml 400 ml IV Total 75 ml 900 ml Output Urine Total 700 ml 1300 ml # Voids 2 Laboratory Tests 01/03/18 05:30: White Blood Count 21.0H, Red Blood Count 2.36L, Hemoglobin 7.2L, Hematocrit 20.6L, Mean Corpuscular Volume 87, Mean Corpuscular Hemoglobin 30.6, Mean Corpuscular Hemoglobin Concent 35.0, Red Cell Distribution Width 18.0H, Platelet Count 326, Mean Platelet Volume 8.4, Neutrophils (%) (Auto) , Lymphocytes (%) (Auto) , Monocytes (%) (Auto) , Eosinophils (%) (Auto) , Basophils (%) (Auto) , Differential Total Cells Counted 100, Neutrophils % ( Manual) 60, Lymphocytes % (Manual) 22, Monocytes % (Manual) 4, Eosinophils % ( Manual) 13H, Basophils % (Manual) 1, Band Neutrophils 0, Platelet Estimate Adequate, Platelet Morphology Normal, Polychromasia , Hypochromasia 2+, Anisocytosis 2+, Sickle Cells OccasionalH, Sodium Level 140, Potassium Level 4.5 , Chloride Level 105, Carbon Dioxide Level 31, Anion Gap 4L, Blood Urea Nitrogen 17, Creatinine 0.9, Estimat Glomerular Filtration Rate > 60, Glucose Level 125H, Calcium Level 8.9, Lactate Dehydrogenase 452H Height (Feet): 5 Height (Inches): 11.00 Weight (Pounds): 177 General Appearance: WD/WN, no apparent distress EENT: PERRL/EOMI Neck: normal alignment, supple Cardiovascular: normal peripheral pulses Respiratory/Chest: normal breath sounds, no respiratory distress Abdomen: soft Marco Dutton MD Jan 03, 2018 11:42
--- NOTE | 2018-01-03 12:24 | Internal Med Progress Note ---
Subjective Date of Service: Jan 03, 2018 Physician Name RosalesMehdi Attending Physician Wan Zarate MD Current Medications Medications (Trade) Dose Ordered Sig/Anthony Route PRN Reason Start Time Stop Time Status Last Admin Dose Admin Acetaminophen (Tylenol) 650 mg Q4H PRN ORAL fever 01/01/18 20:35 01/31/18 20:34 Al Hydroxide/Mg Hydroxide (Mylanta II) 30 ml Q6H PRN ORAL dyspepsia 01/01/18 20:35 01/31/18 20:34 Azithromycin 250 mg/Dextrose 275 ml @ 275 mls/hr Q24HRS IV 01/02/18 10:00 01/06/18 10:59 01/03/18 10:27 Ceftriaxone Sodium 1 gm/ Dextrose 110 ml @ 220 mls/hr Q24H IVPB 01/02/18 13:00 01/09/18 12:59 01/02/18 14:18 Dextrose (Dextrose 50%) 25 ml STAT PRN IV Hypoglycemia 01/01/18 20:41 01/31/18 20:40 Dextrose (Dextrose 50%) 50 ml STAT PRN IV Hypoglycemia 01/01/18 20:42 01/31/18 20:41 Diphenhydramine HCl (Benadryl) 50 mg Q4H PRN IVP Itching 01/02/18 08:00 02/01/18 07:59 01/03/18 09:36 Gabapentin (Neurontin) 300 mg THREE TIMES A DAY ORAL 01/02/18 09:00 02/01/18 08:59 01/03/18 09:36 Heparin Sodium (Porcine) (Heparin 5000 units/ml) 5,000 units EVERY 12 HOURS SUBQ 01/02/18 09:00 02/01/18 08:59 Hydroxyurea (Hydrea) 500 mg BID ORAL 01/02/18 09:00 01/07/18 08:59 01/03/18 09:36 Lorazepam (Ativan 2mg/ml 1ml) 0.5 mg Q4H PRN IV For Anxiety 01/01/18 20:35 01/08/18 20:34 01/02/18 01:53 Methadone HCl (Methadone HCl) 60 mg Q6HR ORAL 01/02/18 00:00 01/09/18 00:00 01/03/18 06:31 Morphine Sulfate (Morphine Sulfate) 10 mg Q4H PRN IVP pain 7-10 01/01/18 21:42 01/08/18 21:41 01/03/18 09:36 Ondansetron HCl (Zofran) 4 mg Q6H PRN IVP Nausea & Vomiting 01/01/18 20:35 01/31/18 20:34 Polyethylene Glycol (Miralax) 17 gm HSPRN PRN ORAL Constipation 01/01/18 21:00 01/31/18 20:59 Sodium Chloride 1,000 ml @ 75 mls/hr [id number] IV 01/01/18 23:00 01/31/18 22:59 01/03/18 01:15 Zolpidem Tartrate (Ambien) 5 mg HSPRN PRN ORAL Insomnia 01/01/18 21:00 01/08/18 20:59 Allergies: Coded Allergies: PENTAMIDINE ISETHIONATE (Verified Allergy, Severe, palpitations, 08/27/17) AMPICILLIN (Verified Allergy, Unknown, 08/03/16) KETOROLAC (Verified Allergy, Unknown, 08/03/16) MORPHINE (Verified Allergy, Unknown, 08/03/16) PHENYTOIN (Verified Allergy, Unknown, 08/03/16) ROS Limited/Unobtainable: No Constitutional: Reports: no symptoms HEENT: Reports: no symptoms Cardiovascular: Reports: no symptoms Respiratory: Reports: no symptoms Gastrointestinal/Abdominal: Reports: no symptoms Genitourinary: Reports: no symptoms 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: Reports: no symptoms Subjective 42 YO M admitted with chest pain. Now sickle cell crisis. Cover for Int Kali- Dr Zarate Objective Last Vital Signs Date Time Temp Pulse Resp B/P (MAP) Pulse Ox O2 Delivery O2 Flow Rate FiO2 01/03/18 12:14 98.4 90 20 117/77 Nasal Cannula 98.4 01/03/18 08:00 92 2.0 General Appearance: WD/WN, alert, mild distress EENT: PERRL/EOMI, normal ENT inspection Neck: non-tender, normal alignment, supple, normal inspection Cardiovascular: normal peripheral pulses, normal rate, regular rhythm, no gallop/murmur, no JVD Respiratory/Chest: chest wall non-tender, lungs clear, normal breath sounds, no respiratory distress, no accessory muscle use Abdomen: normal bowel sounds, non tender, soft, no organomegaly, no mass Extremities: normal range of motion, non-tender Neurologic: bottom loader 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, no motor/sensory deficits Skin: normal pigmentation, warm/dry Laboratory Tests Test 01/03/18 05:30 White Blood Count 21.0 K/UL (4.8-10.8) H Red Blood Count 2.36 M/UL (4.70-6.10) L Hemoglobin 7.2 G/DL (14.2-18.0) L Hematocrit 20.6 % (42.0-52.0) L Mean Corpuscular Volume 87 FL (80-99) Mean Corpuscular Hemoglobin 30.6 PG (27.0-31.0) Mean Corpuscular Hemoglobin Concent 35.0 G/DL (32.0-36.0) Red Cell Distribution Width 18.0 % (11.6-14.8) H Platelet Count 326 K/UL (150-450) Mean Platelet Volume 8.4 FL (6.5-10.1) Neutrophils (%) (Auto) % (45.0-75.0) Lymphocytes (%) (Auto) % (20.0-45.0) Monocytes (%) (Auto) % (1.0-10.0) Eosinophils (%) (Auto) % (0.0-3.0) Basophils (%) (Auto) % (0.0-2.0) Differential Total Cells Counted 100 Neutrophils % (Manual) 60 % (45-75) Lymphocytes % (Manual) 22 % (20-45) Monocytes % (Manual) 4 % (1-10) Eosinophils % (Manual) 13 % (0-3) H Basophils % (Manual) 1 % (0-2) Band Neutrophils 0 % (0-8) Platelet Estimate Adequate Platelet Morphology Normal Polychromasia Hypochromasia 2+ Anisocytosis 2+ Sickle Cells Occasional H Sodium Level 140 MMOL/L (136-145) Potassium Level 4.5 MMOL/L (3.5-5.1) Chloride Level 105 MMOL/L (98-107) Carbon Dioxide Level 31 MMOL/L (21-32) Anion Gap 4 mmol/L (5-15) L Blood Urea Nitrogen 17 mg/dL (7-18) Creatinine 0.9 MG/DL (0.55-1.30) Estimat Glomerular Filtration Rate > 60 mL/min (>60) Glucose Level 125 MG/DL (74-106) H Calcium Level 8.9 MG/DL (8.5-10.1) Lactate Dehydrogenase 452 U/L (81-234) H Intake and Output 01/02/18 01/03/18 19:00 07:00 Intake Total 325 ml 1300 ml Output Total 700 ml 1300 ml Balance -375 ml 0 ml Intake Oral 250 ml 400 ml IV Total 75 ml 900 ml Output Urine Total 700 ml 1300 ml # Voids 2 Assessment/Plan Problem List: (1) Chest pain Assessment & Plan: ?sickle cell crisis? (2) Anemia Assessment & Plan: Transfuse 1 unit PRBC today (3) Sickle cell disease (4) Sickle cell crisis Assessment & Plan: See hematology note. Pain management (5) Pneumonia Assessment & Plan: Continue azithromycin and ceftriaxone. Status: not improved Mehdi Rosales MD Jan 03, 2018 12:24
[2018-01-03] MEDS: cefTRIAXone 1 GM in D5W 110 ML IVPB SCH (13:40)
--- NOTE | 2018-01-03 14:24 | Pulmonology Progress Note ---
Assessment/Plan Problems: (1) Sickle cell crisis (2) Intractable pain (3) Interstitial lung disease (4) Seizure disorder (5) Pulmonary HTN (6) severe diastolic heart disease Assessment/Plan IV fluids check LDH, H/H symptomatic treatment check electrolytes doing slightly better Subjective ROS Limited/Unobtainable: No Constitutional: Reports: fatigue, anorexia HEENT: Repors: no symptoms Cardiovascular: Reports: no symptoms Musculoskeletal: Reports: pain, stiffness Allergies: Coded Allergies: PENTAMIDINE ISETHIONATE (Verified Allergy, Severe, palpitations, 08/27/17) AMPICILLIN (Verified Allergy, Unknown, 08/03/16) KETOROLAC (Verified Allergy, Unknown, 08/03/16) MORPHINE (Verified Allergy, Unknown, 08/03/16) PHENYTOIN (Verified Allergy, Unknown, 08/03/16) Objective Last 24 Hour Vital Signs Date Time Temp Pulse Resp B/P (MAP) Pulse Ox O2 Delivery O2 Flow Rate FiO2 01/03/18 14:10 98.4 01/03/18 13:40 98.4 01/03/18 12:14 98.4 90 20 117/77 Nasal Cannula 98.4 01/03/18 09:36 98.6 01/03/18 08:00 98.6 102 20 127/91 92 Nasal Cannula 2.0 98.6 01/03/18 00:00 98.4 81 18 137/96 96 Nasal Cannula 2.0 98.4 01/02/18 21:15 98.2 01/02/18 20:00 98.2 83 18 115/76 98 98.2 01/02/18 17:22 98.6 01/02/18 15:54 98.6 97 18 121/66 97 98.6 Intake and Output 01/02/18 01/03/18 19:00 07:00 Intake Total 325 ml 1300 ml Output Total 700 ml 1300 ml Balance -375 ml 0 ml Intake Oral 250 ml 400 ml IV Total 75 ml 900 ml Output Urine Total 700 ml 1300 ml # Voids 2 General Appearance: WD/WN Respiratory/Chest: chest wall non-tender, normal breath sounds Cardiovascular: normal peripheral pulses, regular rhythm Abdomen: normal bowel sounds, soft, non tender Extremities: no clubbing Skin: no rash Laboratory Tests 01/03/18 05:30: White Blood Count 21.0H, Red Blood Count 2.36L, Hemoglobin 7.2L, Hematocrit 20.6L, Mean Corpuscular Volume 87, Mean Corpuscular Hemoglobin 30.6, Mean Corpuscular Hemoglobin Concent 35.0, Red Cell Distribution Width 18.0H, Platelet Count 326, Mean Platelet Volume 8.4, Neutrophils (%) (Auto) , Lymphocytes (%) (Auto) , Monocytes (%) (Auto) , Eosinophils (%) (Auto) , Basophils (%) (Auto) , Differential Total Cells Counted 100, Neutrophils % ( Manual) 60, Lymphocytes % (Manual) 22, Monocytes % (Manual) 4, Eosinophils % ( Manual) 13H, Basophils % (Manual) 1, Band Neutrophils 0, Platelet Estimate Adequate, Platelet Morphology Normal, Polychromasia , Hypochromasia 2+, Anisocytosis 2+, Sickle Cells OccasionalH, Sodium Level 140, Potassium Level 4.5 , Chloride Level 105, Carbon Dioxide Level 31, Anion Gap 4L, Blood Urea Nitrogen 17, Creatinine 0.9, Estimat Glomerular Filtration Rate > 60, Glucose Level 125H, Calcium Level 8.9, Lactate Dehydrogenase 452H Current Medications Medications (Trade) Dose Ordered Sig/Anthony Route PRN Reason Start Time Stop Time Status Last Admin Dose Admin Acetaminophen (Tylenol) 650 mg Q4H PRN ORAL fever 01/01/18 20:35 01/31/18 20:34 Al Hydroxide/Mg Hydroxide (Mylanta II) 30 ml Q6H PRN ORAL dyspepsia 01/01/18 20:35 01/31/18 20:34 Azithromycin 250 mg/Dextrose 275 ml @ 275 mls/hr Q24HRS IV 01/02/18 10:00 01/06/18 10:59 01/03/18 10:27 Ceftriaxone Sodium 1 gm/ Dextrose 110 ml @ 220 mls/hr Q24H IVPB 01/02/18 13:00 01/09/18 12:59 01/03/18 13:40 Dextrose (Dextrose 50%) 25 ml STAT PRN IV Hypoglycemia 01/01/18 20:41 01/31/18 20:40 Dextrose (Dextrose 50%) 50 ml STAT PRN IV Hypoglycemia 01/01/18 20:42 01/31/18 20:41 Diphenhydramine HCl (Benadryl) 50 mg Q4H PRN IVP Itching 01/02/18 08:00 02/01/18 07:59 01/03/18 13:40 Gabapentin (Neurontin) 300 mg THREE TIMES A DAY ORAL 01/02/18 09:00 02/01/18 08:59 01/03/18 13:40 Heparin Sodium (Porcine) (Heparin 5000 units/ml) 5,000 units EVERY 12 HOURS SUBQ 01/02/18 09:00 02/01/18 08:59 Hydroxyurea (Hydrea) 500 mg BID ORAL 01/02/18 09:00 01/07/18 08:59 01/03/18 09:36 Lorazepam (Ativan 2mg/ml 1ml) 0.5 mg Q4H PRN IV For Anxiety 01/01/18 20:35 01/08/18 20:34 01/02/18 01:53 Methadone HCl (Methadone HCl) 60 mg Q6HR ORAL 01/02/18 00:00 01/09/18 00:00 01/03/18 12:25 Morphine Sulfate (Morphine Sulfate) 10 mg Q4H PRN IVP pain 7-10 01/01/18 21:42 01/08/18 21:41 01/03/18 13:40 Ondansetron HCl (Zofran) 4 mg Q6H PRN IVP Nausea & Vomiting 01/01/18 20:35 01/31/18 20:34 Polyethylene Glycol (Miralax) 17 gm HSPRN PRN ORAL Constipation 01/01/18 21:00 01/31/18 20:59 Sodium Chloride 1,000 ml @ 75 mls/hr [id number] IV 01/01/18 23:00 01/31/18 22:59 01/03/18 01:15 Zolpidem Tartrate (Ambien) 5 mg HSPRN PRN ORAL Insomnia 01/01/18 21:00 01/08/18 20:59 Hanna Mckenna MD Jan 03, 2018 14:24
[2018-01-04] VITALS: BP 118/82
[2018-01-04] MEDS: DiphenhydrAMINE 50mg/ml Inj IVP PRN ×6 (02:27→22:32)
[2018-01-04] MEDS: Morphine Sulfate 10mg/ml Inj IVP PRN ×6 (02:28→22:32)
[2018-01-04 04:00] VITALS: BP 138/88
[2018-01-04 08:00] VITALS: BP 142/100
--- NOTE | 2018-01-04 08:42 | General Progress Note ---
Assessment/Plan Assessment/Plan (1) Intractable pain (2) Avascular necrosis of femur head, left (3) Sickle cell crisis (4) Avascular necrosis of femur head, right Patient will be continued on methadone and Morphine as needed. Pt was d/w Dr. Perera and he concurred. Subjective Date patient seen: Jan 04, 2018 Time patient seen: 07:30 - am Allergies: Coded Allergies: PENTAMIDINE ISETHIONATE (Verified Allergy, Severe, palpitations, 08/27/17) AMPICILLIN (Verified Allergy, Unknown, 08/03/16) KETOROLAC (Verified Allergy, Unknown, 08/03/16) MORPHINE (Verified Allergy, Unknown, 08/03/16) PHENYTOIN (Verified Allergy, Unknown, 08/03/16) Subjective Constitutional: Reports: chills HEENT: Denies: blurred vision, double vision, ear discharge, ear pain, eye pain , mouth pain, mouth swelling, nose congestion, nose pain, tearing, throat pain, throat swelling Cardiovascular: Denies: chest pain, edema, irregular heart rate, lightheadedness, palpitations, syncope Respiratory: Denies: SOB at rest, SOB with excertion, cough, orthopnea, shortness of breath, sputum, stridor, wheezing Gastrointestinal/Abdominal: Denies: abdomen distended, abdominal pain, black stools, blood in stool, constipated, diarrhea, difficulty swallowing, nausea, poor appetite, poor fluid intake, rectal bleeding, tarry stools, vomiting Genitourinary: Denies: burning, discharge, flank pain, frequency, hematuria, incontinence, pain, urgency 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: Denies: anxiety, depressed, emotional problems, headache, numbness, paresthesia, pre-existing deficit, seizure, tingling, tremors, weakness Endocrine: Reports: other, Denies: excessive sweating, flushing, increased hunger, increased thirst, increased urine, intolerance to cold, intolerance to heat, unexplained weight gain, unexplained weight loss Hematologic/Lymphatic: Denies: anemia, easy bleeding, easy bruising Subjective Patient reports continued pain which has been tolerated on the Methadone and Morphine as needed. At this time in bed showing no signs of pain or distress with no other complaints. Objective Last 24 Hour Vital Signs Date Time Temp Pulse Resp B/P (MAP) Pulse Ox O2 Delivery O2 Flow Rate FiO2 6/21/18 08:00 98.0 79 18 142/100 97 98.0 01/04/18 04:00 98.1 78 24 138/88 95 98.1 01/04/18 04:00 98.1 78 20 138/88 97 Nasal Cannula 2.0 98.1 01/04/18 00:00 98.2 90 20 118/82 99 Nasal Cannula 2.0 98.2 01/03/18 20:00 Nasal Cannula 2.0 01/03/18 20:00 98.5 85 24 118/82 98 98.5 01/03/18 18:39 98.3 91 19 127/83 98 Nasal Cannula 2.0 98.3 01/03/18 18:37 98.0 01/03/18 18:24 98.0 98 18 121/83 98 Nasal Cannula 2.0 98.0 01/03/18 18:07 97.5 01/03/18 16:00 97.5 106 20 114/70 90 Room Air 97.5 01/03/18 16:00 Nasal Cannula 2.0 01/03/18 13:40 98.4 01/03/18 12:14 98.4 90 20 117/77 Nasal Cannula 98.4 01/03/18 09:36 98.6 Intake and Output 01/03/18 01/04/18 19:00 07:00 Intake Total 1525 ml 1025 ml Output Total 1300 ml 1200 ml Balance 225 ml -175 ml Intake Oral 840 ml 500 ml IV Total 685 ml 525 ml Output Urine Total 1300 ml 1200 ml # Bowel Movements 2 Height (Feet): 5 Height (Inches): 11.00 Weight (Pounds): 175 Objective General Appearance: no apparent distress, alert EENT: PERRL/EOMI, normal ENT inspection Neck: non-tender, normal alignment Cardiovascular: normal rate, regular rhythm Respiratory/Chest: decreased breath sounds Abdomen: non tender, soft Edema: no edema noted Neurologic: alert, oriented x 3 Skin: warm/dry Cj Anderson Jan 04, 2018 08:42
--- NOTE | 2018-01-04 08:48 | General Progress Note ---
Assessment/Plan Assessment/Plan #. Sickle cell crisis. The patient has been admitted multiple times in the past for similar symptoms, also with hx of stroke and complications --> continue ceftriaxone, total five-day course for potential infection, appreciate pulm recs --> retic and ldh daily --> ivf and pain control, incentive spirometer prn #. Leukocytosis. The patient has a sickle cell crisis which is other cause. --> Closely monitor, use hydroxyurea fluids as needed. Morphine prn #. Transaminitis, related to iron overload in the past. #. Noncompliance history, the patient has been admitted multiple times before and at this time recommend the patient to seek Oncology/Hematology followup. #. Chronic obstructive pulmonary disease history. Pain management and respiratory management. #. Diastolic heart failure. Subjective Allergies: Coded Allergies: PENTAMIDINE ISETHIONATE (Verified Allergy, Severe, palpitations, 08/27/17) AMPICILLIN (Verified Allergy, Unknown, 08/03/16) KETOROLAC (Verified Allergy, Unknown, 08/03/16) MORPHINE (Verified Allergy, Unknown, 08/03/16) PHENYTOIN (Verified Allergy, Unknown, 08/03/16) All Systems: reviewed and negative except above Subjective Pt in bed and shows no signs of distress. His pain has been tolerated on the Methadone/morphine. C/o itching and using Benadryl Objective Last 24 Hour Vital Signs Date Time Temp Pulse Resp B/P (MAP) Pulse Ox O2 Delivery O2 Flow Rate FiO2 01/04/18 08:00 98.0 79 18 142/100 97 98.0 01/04/18 04:00 98.1 78 24 138/88 95 98.1 01/04/18 04:00 98.1 78 20 138/88 97 Nasal Cannula 2.0 98.1 01/04/18 00:00 98.2 90 20 118/82 99 Nasal Cannula 2.0 98.2 01/03/18 20:00 Nasal Cannula 2.0 01/03/18 20:00 98.5 85 24 118/82 98 98.5 01/03/18 18:39 98.3 91 19 127/83 98 Nasal Cannula 2.0 98.3 01/03/18 18:37 98.0 01/03/18 18:24 98.0 98 18 121/83 98 Nasal Cannula 2.0 98.0 01/03/18 18:07 97.5 01/03/18 16:00 97.5 106 20 114/70 90 Room Air 97.5 01/03/18 16:00 Nasal Cannula 2.0 01/03/18 13:40 98.4 01/03/18 12:14 98.4 90 20 117/77 Nasal Cannula 98.4 01/03/18 09:36 98.6 Intake and Output 01/03/18 01/04/18 19:00 07:00 Intake Total 1525 ml 1025 ml Output Total 1300 ml 1200 ml Balance 225 ml -175 ml Intake Oral 840 ml 500 ml IV Total 685 ml 525 ml Output Urine Total 1300 ml 1200 ml # Bowel Movements 2 Height (Feet): 5 Height (Inches): 11.00 Weight (Pounds): 175 General Appearance: lethargic EENT: TMs normal Neck: supple Cardiovascular: regular rhythm Respiratory/Chest: normal breath sounds Abdomen: non tender Extremities: non-tender Edema: no edema noted Leg (L), no edema noted Leg (R) Edema: mild edema Neurologic: normal mood/affect Skin: warm/dry Marco Dutton MD Jan 04, 2018 08:48
[2018-01-04] MEDS: Heparin 5000 units/ml inj SUBQ SCH ×2 (09:00→20:22)
[2018-01-04] MEDS ORDERED: Cathflo Alteplase 2mg Inj INJ ONE (09:00)
[2018-01-04] MEDS: Hydroxyurea 500mg cap ORAL SCH ×2 (09:14→17:47)
[2018-01-04] MEDS: Azithromycin 250 MG in D5W 275 ML IV SCH (10:08)
[2018-01-04 10:44] LABS: ANION GAP 6 mmol/L (5-15); BLOOD UREA NITROGEN 17 mg/dL (7-18); CALCIUM 9.2 MG/DL (8.5-10.1); CARBON DIOXIDE 32 MMOL/L (21-32); CHLORIDE 103 MMOL/L (98-107); CREATININE 0.9 MG/DL (0.55-1.30); POTASSIUM 4.8 MMOL/L (3.5-5.1); SODIUM 141 MMOL/L (136-145)
[2018-01-04 11:48] LABS: HEMATOCRIT 25.6 % (42.0-52.0); HEMOGLOBIN 8.9 G/DL (14.2-18.0); MEAN CORPUSCULAR VOLUME 87 FL (80-99); PLATELET COUNT 319 K/UL (150-450); RED BLOOD COUNT 2.94 M/UL (4.70-6.10); RED CELL DISTRIBUTION WIDTH 16.9 % (11.6-14.8)
[2018-01-04 12:00] VITALS: BP 143/89
--- NOTE | 2018-01-04 12:04 | Pulmonology Progress Note ---
Assessment/Plan Problems: (1) Sickle cell crisis (2) Intractable pain (3) Interstitial lung disease (4) Seizure disorder (5) Pulmonary HTN (6) severe diastolic heart disease Assessment/Plan improving gradually s/p two units of prbc, h/h better bilirubin is negative, but Reit count and LDH are elevated IV fluids check LDH, H/H symptomatic treatment check electrolytes doing slightly better Subjective ROS Limited/Unobtainable: No Interval Events: still c/o pain mostly upper chest Allergies: Coded Allergies: PENTAMIDINE ISETHIONATE (Verified Allergy, Severe, palpitations, 08/27/17) AMPICILLIN (Verified Allergy, Unknown, 08/03/16) KETOROLAC (Verified Allergy, Unknown, 08/03/16) MORPHINE (Verified Allergy, Unknown, 08/03/16) PHENYTOIN (Verified Allergy, Unknown, 08/03/16) Objective Last 24 Hour Vital Signs Date Time Temp Pulse Resp B/P (MAP) Pulse Ox O2 Delivery O2 Flow Rate FiO2 01/04/18 08:00 98.0 79 18 142/100 97 98.0 01/04/18 04:00 98.1 78 24 138/88 95 98.1 01/04/18 04:00 98.1 78 20 138/88 97 Nasal Cannula 2.0 98.1 01/04/18 00:00 98.2 90 20 118/82 99 Nasal Cannula 2.0 98.2 01/03/18 20:00 Nasal Cannula 2.0 01/03/18 20:00 98.5 85 24 118/82 98 98.5 01/03/18 18:39 98.3 91 19 127/83 98 Nasal Cannula 2.0 98.3 01/03/18 18:37 98.0 01/03/18 18:24 98.0 98 18 121/83 98 Nasal Cannula 2.0 98.0 01/03/18 18:07 97.5 01/03/18 16:00 97.5 106 20 114/70 90 Room Air 97.5 01/03/18 16:00 Nasal Cannula 2.0 01/03/18 13:40 98.4 01/03/18 12:14 98.4 90 20 117/77 Nasal Cannula 98.4 Intake and Output 01/03/18 01/04/18 19:00 07:00 Intake Total 1525 ml 1025 ml Output Total 1300 ml 1200 ml Balance 225 ml -175 ml Intake Oral 840 ml 500 ml IV Total 685 ml 525 ml Output Urine Total 1300 ml 1200 ml # Bowel Movements 2 General Appearance: WD/WN HEENT: normocephalic, atraumatic Respiratory/Chest: chest wall non-tender, lungs clear Cardiovascular: normal peripheral pulses, normal rate Abdomen: normal bowel sounds, soft, non tender Genitourinary: normal external genitalia Extremities: no cyanosis, no clubbing 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: fur polisher 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 Laboratory Tests 01/04/18 10:00: Sodium Level 141, Potassium Level 4.8, Chloride Level 103, Carbon Dioxide Level 32, Anion Gap 6, Blood Urea Nitrogen 17, Creatinine 0.9, Estimat Glomerular Filtration Rate > 60, Glucose Level 117H, Calcium Level 9.2, Lactate Dehydrogenase 427H 01/04/18 10:30: White Blood Count 19.0H, Red Blood Count 2.94L, Hemoglobin 8.9L, Hematocrit 25.6L, Mean Corpuscular Volume 87, Mean Corpuscular Hemoglobin 30.3, Mean Corpuscular Hemoglobin Concent 34.8, Red Cell Distribution Width 16.9H, Platelet Count 319, Mean Platelet Volume 8.7, Neutrophils (%) (Auto) , Lymphocytes (%) (Auto) , Monocytes (%) (Auto) , Eosinophils (%) (Auto) , Basophils (%) (Auto) , Neutrophils % (Manual) [Pending], Lymphocytes % (Manual) [Pending], Platelet Estimate [Pending], Platelet Morphology [Pending] Current Medications Medications (Trade) Dose Ordered Sig/Anthony Route PRN Reason Start Time Stop Time Status Last Admin Dose Admin Acetaminophen (Tylenol) 650 mg Q4H PRN ORAL fever 01/01/18 20:35 01/31/18 20:34 Al Hydroxide/Mg Hydroxide (Mylanta II) 30 ml Q6H PRN ORAL dyspepsia 01/01/18 20:35 01/31/18 20:34 Azithromycin 250 mg/Dextrose 275 ml @ 275 mls/hr Q24HRS IV 01/02/18 10:00 01/06/18 10:59 01/04/18 10:08 Ceftriaxone Sodium 1 gm/ Dextrose 110 ml @ 220 mls/hr Q24H IVPB 01/02/18 13:00 01/09/18 12:59 01/03/18 13:40 Chlorhexidine Gluconate (Val-Hex 2%) 1 applic DAILY@2000 TOPIC 01/04/18 20:00 02/03/18 19:59 Dextrose (Dextrose 50%) 25 ml STAT PRN IV Hypoglycemia 01/01/18 20:41 01/31/18 20:40 Dextrose (Dextrose 50%) 50 ml STAT PRN IV Hypoglycemia 01/01/18 20:42 01/31/18 20:41 Diphenhydramine HCl (Benadryl) 50 mg Q4H PRN IVP Itching 01/02/18 08:00 02/01/18 07:59 01/04/18 10:40 Gabapentin (Neurontin) 300 mg THREE TIMES A DAY ORAL 01/02/18 09:00 02/01/18 08:59 01/04/18 09:14 Heparin Sodium (Porcine) (Heparin 5000 units/ml) 5,000 units EVERY 12 HOURS SUBQ 01/02/18 09:00 02/01/18 08:59 Hydroxyurea (Hydrea) 500 mg BID ORAL 01/02/18 09:00 01/07/18 08:59 01/04/18 09:14 Lorazepam (Ativan 2mg/ml 1ml) 0.5 mg Q4H PRN IV For Anxiety 01/01/18 20:35 01/08/18 20:34 01/02/18 01:53 Methadone HCl (Methadone HCl) 60 mg Q6HR ORAL 01/02/18 00:00 01/09/18 00:00 01/04/18 05:34 Morphine Sulfate (Morphine Sulfate) 10 mg Q4H PRN IVP pain 7-10 01/01/18 21:42 01/08/18 21:41 01/04/18 10:34 Ondansetron HCl (Zofran) 4 mg Q6H PRN IVP Nausea & Vomiting 01/01/18 20:35 01/31/18 20:34 Polyethylene Glycol (Miralax) 17 gm HSPRN PRN ORAL Constipation 01/01/18 21:00 01/31/18 20:59 Sodium Chloride 1,000 ml @ 75 mls/hr [id number] IV 01/01/18 23:00 01/31/18 22:59 6/21/18 05:03 Zolpidem Tartrate (Ambien) 5 mg HSPRN PRN ORAL Insomnia 01/01/18 21:00 01/08/18 20:59 Hanna Mckenna MD Jan 04, 2018 12:04
--- NOTE | 2018-01-04 12:24 | General Progress Note ---
Assessment/Plan Assessment/Plan MDD Anxiety -Neurontin -ativan prn Subjective Date patient seen: Jan 04, 2018 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: Reports: anxiety, depressed, emotional problems Allergies: Coded Allergies: PENTAMIDINE ISETHIONATE (Verified Allergy, Severe, palpitations, 08/27/17) AMPICILLIN (Verified Allergy, Unknown, 08/03/16) KETOROLAC (Verified Allergy, Unknown, 08/03/16) MORPHINE (Verified Allergy, Unknown, 08/03/16) PHENYTOIN (Verified Allergy, Unknown, 08/03/16) Subjective the ptc/o more anxiety and depression due to pain ask for Dilaudid Objective Last 24 Hour Vital Signs Date Time Temp Pulse Resp B/P (MAP) Pulse Ox O2 Delivery O2 Flow Rate FiO2 01/04/18 08:00 98.0 79 18 142/100 97 98.0 01/04/18 04:00 98.1 78 24 138/88 95 98.1 01/04/18 04:00 98.1 78 20 138/88 97 Nasal Cannula 2.0 98.1 01/04/18 00:00 98.2 90 20 118/82 99 Nasal Cannula 2.0 98.2 01/03/18 20:00 Nasal Cannula 2.0 01/03/18 20:00 98.5 85 24 118/82 98 98.5 01/03/18 18:39 98.3 91 19 127/83 98 Nasal Cannula 2.0 98.3 01/03/18 18:37 98.0 01/03/18 18:24 98.0 98 18 121/83 98 Nasal Cannula 2.0 98.0 01/03/18 18:07 97.5 01/03/18 16:00 97.5 106 20 114/70 90 Room Air 97.5 01/03/18 16:00 Nasal Cannula 2.0 01/03/18 13:40 98.4 Intake and Output 01/03/18 01/04/18 19:00 07:00 Intake Total 1525 ml 1025 ml Output Total 1300 ml 1200 ml Balance 225 ml -175 ml Intake Oral 840 ml 500 ml IV Total 685 ml 525 ml Output Urine Total 1300 ml 1200 ml # Bowel Movements 2 Laboratory Tests 01/04/18 10:00: Sodium Level 141, Potassium Level 4.8, Chloride Level 103, Carbon Dioxide Level 32, Anion Gap 6, Blood Urea Nitrogen 17, Creatinine 0.9, Estimat Glomerular Filtration Rate > 60, Glucose Level 117H, Calcium Level 9.2, Lactate Dehydrogenase 427H 01/04/18 10:30: White Blood Count 19.0H, Red Blood Count 2.94L, Hemoglobin 8.9L, Hematocrit 25.6L, Mean Corpuscular Volume 87, Mean Corpuscular Hemoglobin 30.3, Mean Corpuscular Hemoglobin Concent 34.8, Red Cell Distribution Width 16.9H, Platelet Count 319, Mean Platelet Volume 8.7, Neutrophils (%) (Auto) , Lymphocytes (%) (Auto) , Monocytes (%) (Auto) , Eosinophils (%) (Auto) , Basophils (%) (Auto) , Differential Total Cells Counted 100, Neutrophils % ( Manual) 48, Lymphocytes % (Manual) 28, Monocytes % (Manual) 7, Eosinophils % ( Manual) 14H, Basophils % (Manual) 3H, Band Neutrophils 0, Nucleated Red Blood Cells 3, Platelet Estimate Adequate, Platelet Morphology Normal, Hypochromasia 2 +, Anisocytosis 1+ Height (Feet): 5 Height (Inches): 11.00 Weight (Pounds): 176 Deedee Sims M.D. Jan 04, 2018 12:24
[2018-01-04] MEDS: cefTRIAXone 1 GM in D5W 110 ML IVPB SCH (12:39)
[2018-01-04] MEDS: LORazepam Inj 2mg/ml 1ml IV PRN ×2 (12:40→20:22)
[2018-01-04] MEDS ORDERED: Sodium Chloride 3% 4ml Nebul Soln INH ONE (14:30)
--- NOTE | 2018-01-04 15:34 | Internal Med Progress Note ---
Subjective Date of Service: Jan 04, 2018 Physician Name RosalesMehdi Attending Physician Wan Zarate MD Current Medications Medications (Trade) Dose Ordered Sig/Anthony Route PRN Reason Start Time Stop Time Status Last Admin Dose Admin Acetaminophen (Tylenol) 650 mg Q4H PRN ORAL fever 01/01/18 20:35 01/31/18 20:34 Al Hydroxide/Mg Hydroxide (Mylanta II) 30 ml Q6H PRN ORAL dyspepsia 01/01/18 20:35 01/31/18 20:34 Azithromycin 250 mg/Dextrose 275 ml @ 275 mls/hr Q24HRS IV 01/02/18 10:00 01/06/18 10:59 01/04/18 10:08 Ceftriaxone Sodium 1 gm/ Dextrose 110 ml @ 220 mls/hr Q24H IVPB 01/02/18 13:00 01/09/18 12:59 01/04/18 12:39 Chlorhexidine Gluconate (Val-Hex 2%) 1 applic DAILY@2000 TOPIC 01/04/18 20:00 02/03/18 19:59 Dextrose (Dextrose 50%) 25 ml STAT PRN IV Hypoglycemia 01/01/18 20:41 01/31/18 20:40 Dextrose (Dextrose 50%) 50 ml STAT PRN IV Hypoglycemia 01/01/18 20:42 01/31/18 20:41 Diphenhydramine HCl (Benadryl) 50 mg Q4H PRN IVP Itching 01/02/18 08:00 02/01/18 07:59 01/04/18 14:42 Gabapentin (Neurontin) 300 mg THREE TIMES A DAY ORAL 01/02/18 09:00 02/01/18 08:59 01/04/18 12:40 Heparin Sodium (Porcine) (Heparin 5000 units/ml) 5,000 units EVERY 12 HOURS SUBQ 01/02/18 09:00 02/01/18 08:59 Hydroxyurea (Hydrea) 500 mg BID ORAL 01/02/18 09:00 01/07/18 08:59 01/04/18 09:14 Lorazepam (Ativan 2mg/ml 1ml) 0.5 mg Q4H PRN IV For Anxiety 01/01/18 20:35 01/08/18 20:34 01/04/18 12:40 Methadone HCl (Methadone HCl) 60 mg Q6HR ORAL 01/02/18 00:00 01/09/18 00:00 01/04/18 12:39 Morphine Sulfate (Morphine Sulfate) 10 mg Q4H PRN IVP pain 7-10 01/01/18 21:42 01/08/18 21:41 01/04/18 14:42 Ondansetron HCl (Zofran) 4 mg Q6H PRN IVP Nausea & Vomiting 01/01/18 20:35 01/31/18 20:34 Polyethylene Glycol (Miralax) 17 gm HSPRN PRN ORAL Constipation 01/01/18 21:00 01/31/18 20:59 Sodium Chloride 1,000 ml @ 75 mls/hr [id number] IV 01/01/18 23:00 01/31/18 22:59 01/04/18 05:03 Zolpidem Tartrate (Ambien) 5 mg HSPRN PRN ORAL Insomnia 01/01/18 21:00 01/08/18 20:59 Allergies: Coded Allergies: PENTAMIDINE ISETHIONATE (Verified Allergy, Severe, palpitations, 08/27/17) AMPICILLIN (Verified Allergy, Unknown, 08/03/16) KETOROLAC (Verified Allergy, Unknown, 08/03/16) MORPHINE (Verified Allergy, Unknown, 08/03/16) PHENYTOIN (Verified Allergy, Unknown, 08/03/16) ROS Limited/Unobtainable: No Constitutional: Reports: no symptoms HEENT: Reports: no symptoms Cardiovascular: Reports: chest pain Respiratory: Reports: cough, shortness of breath Gastrointestinal/Abdominal: Reports: no symptoms Genitourinary: Reports: no symptoms 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: Reports: no symptoms Subjective 42 YO M admitted with chest pain. Now sickle cell crisis. Cover for Int [facility]- Dr Zarate. PICC not functioning this am Objective Last Vital Signs Date Time Temp Pulse Resp B/P (MAP) Pulse Ox O2 Delivery O2 Flow Rate FiO2 01/04/18 12:00 97.8 88 20 143/89 98 97.8 01/04/18 04:00 Nasal Cannula 2.0 Laboratory Tests Test 01/04/18 10:00 01/04/18 10:30 Sodium Level 141 MMOL/L (136-145) Potassium Level 4.8 MMOL/L (3.5-5.1) Chloride Level 103 MMOL/L (98-107) Carbon Dioxide Level 32 MMOL/L (21-32) Anion Gap 6 mmol/L (5-15) Blood Urea Nitrogen 17 mg/dL (7-18) Creatinine 0.9 MG/DL (0.55-1.30) Estimat Glomerular Filtration Rate > 60 mL/min (>60) Glucose Level 117 MG/DL (74-106) H Calcium Level 9.2 MG/DL (8.5-10.1) Lactate Dehydrogenase 427 U/L (81-234) H White Blood Count 19.0 K/UL (4.8-10.8) H Red Blood Count 2.94 M/UL (4.70-6.10) L Hemoglobin 8.9 G/DL (14.2-18.0) L Hematocrit 25.6 % (42.0-52.0) L Mean Corpuscular Volume 87 FL (80-99) Mean Corpuscular Hemoglobin 30.3 PG (27.0-31.0) Mean Corpuscular Hemoglobin Concent 34.8 G/DL (32.0-36.0) Red Cell Distribution Width 16.9 % (11.6-14.8) H Platelet Count 319 K/UL (150-450) Mean Platelet Volume 8.7 FL (6.5-10.1) Neutrophils (%) (Auto) % (45.0-75.0) Lymphocytes (%) (Auto) % (20.0-45.0) Monocytes (%) (Auto) % (1.0-10.0) Eosinophils (%) (Auto) % (0.0-3.0) Basophils (%) (Auto) % (0.0-2.0) Differential Total Cells Counted 100 Neutrophils % (Manual) 48 % (45-75) Lymphocytes % (Manual) 28 % (20-45) Monocytes % (Manual) 7 % (1-10) Eosinophils % (Manual) 14 % (0-3) H Basophils % (Manual) 3 % (0-2) H Band Neutrophils 0 % (0-8) Nucleated Red Blood Cells 3 /100 WBC Platelet Estimate Adequate Platelet Morphology Normal Hypochromasia 2+ Anisocytosis 1+ Intake and Output 01/03/18 01/04/18 19:00 07:00 Intake Total 1525 ml 1025 ml Output Total 1300 ml 1200 ml Balance 225 ml -175 ml Intake Oral 840 ml 500 ml IV Total 685 ml 525 ml Output Urine Total 1300 ml 1200 ml # Bowel Movements 2 Objective General Appearance: WD/WN, alert, mild distress EENT: PERRL/EOMI, normal ENT inspection Neck: non-tender, normal alignment, supple, normal inspection Cardiovascular: normal peripheral pulses, normal rate, regular rhythm, no gallop/murmur, no JVD Respiratory/Chest: chest wall non-tender, lungs clear, normal breath sounds, no respiratory distress, no accessory muscle use Abdomen: normal bowel sounds, non tender, soft, no organomegaly, no mass Extremities: normal range of motion, non-tender Neurologic: broke handler 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, no motor/sensory deficits Skin: normal pigmentation, warm/dry Assessment/Plan Problem List: (1) Chest pain Assessment & Plan: ?sickle cell crisis? (2) Anemia Assessment & Plan: Transfuse 1 unit PRBC today (3) Sickle cell disease (4) Sickle cell crisis Assessment & Plan: See hematology note. Pain management (5) Pneumonia Assessment & Plan: Continue azithromycin and ceftriaxone. Mehdi Rosales MD Jan 04, 2018 15:34
[2018-01-04] MEDS ORDERED: Tubing Blood Filter IV ONE (15:56)
[2018-01-04] MEDS ORDERED: NS 275ml ONE (15:56)
[2018-01-04] MEDS ORDERED: 1/2 NS 1000ml IV ONE (15:56)
[2018-01-04 16:00] VITALS: BP 147/95
[2018-01-04 20:00] VITALS: BP 137/95
[2018-01-04] MEDS ORDERED: Dyna-Hex 2% Top Sol 2oz TOPIC SCH (20:00)
[2018-01-05] VITALS: BP 142/94
[2018-01-05] MEDS: Morphine Sulfate 10mg/ml Inj IVP PRN ×3 (02:41→12:50)
[2018-01-05] MEDS: DiphenhydrAMINE 50mg/ml Inj IVP PRN ×3 (02:41→12:50)
[2018-01-05 04:00] VITALS: BP 140/80
--- NOTE | 2018-01-05 07:25 | Consultation ---
Consult Note Assessment/Plan A/ 1) Osteo? 2) Nonpressure ulcer left foot to level of muscle 3) Sickle Cell Dz P/ 1) MRI of left foot without contrast 2) Ordered wound care 3) Will follow Kevin Reese DPM Jan 05, 2018 07:25
[2018-01-05 07:33] LABS: HEMATOCRIT 26.1 % (42.0-52.0); MEAN CORPUSCULAR VOLUME 88 FL (80-99); PLATELET COUNT 318 K/UL (150-450); RED BLOOD COUNT 2.98 M/UL (4.70-6.10); RED CELL DISTRIBUTION WIDTH 18.5 % (11.6-14.8); WHITE BLOOD COUNT 19.8 K/UL (4.8-10.8)
[2018-01-05 08:00] LABS: ALANINE AMINOTRANSFERASE 61 U/L (12-78); ALBUMIN 3.7 G/DL (3.4-5.0); ALBUMIN/GLOBULIN RATIO 1.1 (1.0-2.7); ALKALINE PHOSPHATASE 178 U/L (46-116); ANION GAP 6 mmol/L (5-15); ASPARTATE AMINO TRANSFERASE 55 U/L (15-37); BILIRUBIN,TOTAL 0.7 MG/DL (0.2-1.0); BLOOD UREA NITROGEN 18 mg/dL (7-18); CALCIUM 9.3 MG/DL (8.5-10.1); CARBON DIOXIDE 32 MMOL/L (21-32); CHLORIDE 102 MMOL/L (98-107); CREATININE 0.8 MG/DL (0.55-1.30); PHOSPHORUS 5.7 MG/DL (2.5-4.9); POTASSIUM 4.8 MMOL/L (3.5-5.1); SODIUM 140 MMOL/L (136-145)
--- NOTE | 2018-01-05 09:03 | General Progress Note ---
Assessment/Plan Assessment/Plan (1) Intractable pain (2) Avascular necrosis of femur head, left (3) Sickle cell crisis (4) Avascular necrosis of femur head, right Patient will be continued on methadone and Morphine as needed. Pt was d/w Dr. Perera and he concurred. Subjective Date patient seen: Jan 05, 2018 Time patient seen: 07:30 - am Allergies: Coded Allergies: PENTAMIDINE ISETHIONATE (Verified Allergy, Severe, palpitations, 08/27/17) AMPICILLIN (Verified Allergy, Unknown, 08/03/16) KETOROLAC (Verified Allergy, Unknown, 08/03/16) MORPHINE (Verified Allergy, Unknown, 08/03/16) PHENYTOIN (Verified Allergy, Unknown, 08/03/16) Subjective Constitutional: Reports: chills HEENT: Denies: blurred vision, double vision, ear discharge, ear pain, eye pain , mouth pain, mouth swelling, nose congestion, nose pain, tearing, throat pain, throat swelling Cardiovascular: Denies: chest pain, edema, irregular heart rate, lightheadedness, palpitations, syncope Respiratory: Denies: SOB at rest, SOB with excertion, cough, orthopnea, shortness of breath, sputum, stridor, wheezing Gastrointestinal/Abdominal: Denies: abdomen distended, abdominal pain, black stools, blood in stool, constipated, diarrhea, difficulty swallowing, nausea, poor appetite, poor fluid intake, rectal bleeding, tarry stools, vomiting Genitourinary: Denies: burning, discharge, flank pain, frequency, hematuria, incontinence, pain, urgency 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: Denies: anxiety, depressed, emotional problems, headache, numbness, paresthesia, pre-existing deficit, seizure, tingling, tremors, weakness Endocrine: Reports: other, Denies: excessive sweating, flushing, increased hunger, increased thirst, increased urine, intolerance to cold, intolerance to heat, unexplained weight gain, unexplained weight loss Hematologic/Lymphatic: Denies: anemia, easy bleeding, easy bruising Subjective Patient has been tolerating the pain on the Methadone and using the Morphine for breakthrough pain having 6 doses in the last 24hrs. Objective Last 24 Hour Vital Signs Date Time Temp Pulse Resp B/P (MAP) Pulse Ox O2 Delivery O2 Flow Rate FiO2 01/05/18 08:41 98.1 01/05/18 08:11 98.1 01/05/18 04:00 98.1 80 19 140/80 100 Nasal Cannula 2.0 98.1 01/05/18 00:00 98.7 82 19 142/94 100 98.7 01/04/18 20:00 98.7 80 18 137/95 98 98.7 01/04/18 16:00 98.0 91 20 147/95 98 98.0 01/04/18 12:00 97.8 88 20 143/89 98 97.8 Intake and Output 01/04/18 01/05/18 19:00 07:00 Intake Total 1860 ml 1150 ml Output Total 500 ml Balance 1860 ml 650 ml Intake Oral 500 ml 400 ml IV Total 1360 ml 750 ml Output Urine Total 500 ml # Voids 2 Laboratory Tests 01/04/18 10:00: Sodium Level 141, Potassium Level 4.8, Chloride Level 103, Carbon Dioxide Level 32, Anion Gap 6, Blood Urea Nitrogen 17, Creatinine 0.9, Estimat Glomerular Filtration Rate > 60, Glucose Level 117H, Calcium Level 9.2, Lactate Dehydrogenase 427H 01/04/18 10:30: White Blood Count 19.0H, Red Blood Count 2.94L, Hemoglobin 8.9L, Hematocrit 25.6L, Mean Corpuscular Volume 87, Mean Corpuscular Hemoglobin 30.3, Mean Corpuscular Hemoglobin Concent 34.8, Red Cell Distribution Width 16.9H, Platelet Count 319, Mean Platelet Volume 8.7, Neutrophils (%) (Auto) , Lymphocytes (%) (Auto) , Monocytes (%) (Auto) , Eosinophils (%) (Auto) , Basophils (%) (Auto) , Differential Total Cells Counted 100, Neutrophils % ( Manual) 48, Lymphocytes % (Manual) 28, Monocytes % (Manual) 7, Eosinophils % ( Manual) 14H, Basophils % (Manual) 3H, Band Neutrophils 0, Nucleated Red Blood Cells 3, Platelet Estimate Adequate, Platelet Morphology Normal, Hypochromasia 2 +, Anisocytosis 1+ 01/05/18 05:00: Sodium Level 140, Potassium Level 4.8, Chloride Level 102, Carbon Dioxide Level 32, Anion Gap 6, Blood Urea Nitrogen 18, Creatinine 0.8, Estimat Glomerular Filtration Rate > 60, Glucose Level 83, Calcium Level 9.3, White Blood Count 19.8H, Red Blood Count 2.98L, Hemoglobin 9.0L, Hematocrit 26.1L, Mean Corpuscular Volume 88, Mean Corpuscular Hemoglobin 30.1, Mean Corpuscular Hemoglobin Concent 34.3, Red Cell Distribution Width 18.5H, Platelet Count 318, Mean Platelet Volume 7.6, Neutrophils (%) (Auto) , Lymphocytes (%) (Auto) , Monocytes (%) (Auto) , Eosinophils (%) (Auto) , Basophils (%) (Auto) , Neutrophils % (Manual) [Pending], Lymphocytes % (Manual) [Pending], Platelet Estimate [Pending], Platelet Morphology [Pending], Phosphorus Level 5.7H, Magnesium Level 1.8, Total Bilirubin 0.7, Aspartate Amino Transf (AST/SGOT) 55H , Alanine Aminotransferase (ALT/SGPT) 61, Alkaline Phosphatase 178H, Total Protein 7.1, Albumin 3.7, Globulin 3.4, Albumin/Globulin Ratio 1.1 Height (Feet): 5 Height (Inches): 11.00 Weight (Pounds): 176 Objective General Appearance: no apparent distress, alert EENT: PERRL/EOMI, normal ENT inspection Neck: non-tender, normal alignment Cardiovascular: normal rate, regular rhythm Respiratory/Chest: decreased breath sounds Abdomen: non tender, soft Edema: no edema noted Neurologic: alert, oriented x 3 Skin: warm/dry Cj Anderson Jan 05, 2018 09:03
--- NOTE | 2018-01-05 09:29 | General Progress Note ---
Assessment/Plan Status: stable Assessment/Plan #. Sickle cell crisis. The patient has been admitted multiple times in the past for similar symptoms, also with hx of stroke and complications --> continue ceftriaxone, total five-day course for potential infection, appreciate pulm recs --> retic and ldh daily --> ivf and pain control, incentive spirometer prn #. Leukocytosis. The patient has a sickle cell crisis which is other cause. --> Closely monitor, use hydroxyurea fluids as needed. --> Morphine prn #. Transaminitis, related to iron overload in the past. #. Noncompliance history, the patient has been admitted multiple times before and at this time recommend the patient to seek Oncology/Hematology followup. #. Chronic obstructive pulmonary disease history. Pain management and respiratory management. #. Diastolic heart failure. Subjective Date patient seen: Jan 05, 2018 ROS Limited/Unobtainable: Yes Allergies: Coded Allergies: PENTAMIDINE ISETHIONATE (Verified Allergy, Severe, palpitations, 08/27/17) AMPICILLIN (Verified Allergy, Unknown, 08/03/16) KETOROLAC (Verified Allergy, Unknown, 08/03/16) MORPHINE (Verified Allergy, Unknown, 08/03/16) PHENYTOIN (Verified Allergy, Unknown, 08/03/16) All Systems: reviewed and negative except above Subjective MRI of L foot scheduled. No signs of distress or sob. Objective Last 24 Hour Vital Signs Date Time Temp Pulse Resp B/P (MAP) Pulse Ox O2 Delivery O2 Flow Rate FiO2 01/05/18 08:41 98.1 01/05/18 08:11 98.1 01/05/18 04:00 98.1 80 19 140/80 100 Nasal Cannula 2.0 98.1 01/05/18 00:00 98.7 82 19 142/94 100 98.7 01/04/18 20:00 98.7 80 18 137/95 98 98.7 01/04/18 16:00 98.0 91 20 147/95 98 98.0 01/04/18 12:00 97.8 88 20 143/89 98 97.8 Intake and Output 01/04/18 01/05/18 19:00 07:00 Intake Total 1860 ml 1150 ml Output Total 500 ml Balance 1860 ml 650 ml Intake Oral 500 ml 400 ml IV Total 1360 ml 750 ml Output Urine Total 500 ml # Voids 2 Laboratory Tests 01/04/18 10:00: Sodium Level 141, Potassium Level 4.8, Chloride Level 103, Carbon Dioxide Level 32, Anion Gap 6, Blood Urea Nitrogen 17, Creatinine 0.9, Estimat Glomerular Filtration Rate > 60, Glucose Level 117H, Calcium Level 9.2, Lactate Dehydrogenase 427H 01/04/18 10:30: White Blood Count 19.0H, Red Blood Count 2.94L, Hemoglobin 8.9L, Hematocrit 25.6L, Mean Corpuscular Volume 87, Mean Corpuscular Hemoglobin 30.3, Mean Corpuscular Hemoglobin Concent 34.8, Red Cell Distribution Width 16.9H, Platelet Count 319, Mean Platelet Volume 8.7, Neutrophils (%) (Auto) , Lymphocytes (%) (Auto) , Monocytes (%) (Auto) , Eosinophils (%) (Auto) , Basophils (%) (Auto) , Differential Total Cells Counted 100, Neutrophils % ( Manual) 48, Lymphocytes % (Manual) 28, Monocytes % (Manual) 7, Eosinophils % ( Manual) 14H, Basophils % (Manual) 3H, Band Neutrophils 0, Nucleated Red Blood Cells 3, Platelet Estimate Adequate, Platelet Morphology Normal, Hypochromasia 2 +, Anisocytosis 1+ 01/05/18 05:00: Sodium Level 140, Potassium Level 4.8, Chloride Level 102, Carbon Dioxide Level 32, Anion Gap 6, Blood Urea Nitrogen 18, Creatinine 0.8, Estimat Glomerular Filtration Rate > 60, Glucose Level 83, Calcium Level 9.3, White Blood Count 19.8H, Red Blood Count 2.98L, Hemoglobin 9.0L, Hematocrit 26.1L, Mean Corpuscular Volume 88, Mean Corpuscular Hemoglobin 30.1, Mean Corpuscular Hemoglobin Concent 34.3, Red Cell Distribution Width 18.5H, Platelet Count 318, Mean Platelet Volume 7.6, Neutrophils (%) (Auto) , Lymphocytes (%) (Auto) , Monocytes (%) (Auto) , Eosinophils (%) (Auto) , Basophils (%) (Auto) , Neutrophils % (Manual) [Pending], Lymphocytes % (Manual) [Pending], Platelet Estimate [Pending], Platelet Morphology [Pending], Phosphorus Level 5.7H, Magnesium Level 1.8, Total Bilirubin 0.7, Aspartate Amino Transf (AST/SGOT) 55H , Alanine Aminotransferase (ALT/SGPT) 61, Alkaline Phosphatase 178H, Total Protein 7.1, Albumin 3.7, Globulin 3.4, Albumin/Globulin Ratio 1.1 Height (Feet): 5 Height (Inches): 11.00 Weight (Pounds): 176 General Appearance: WD/WN, no apparent distress EENT: PERRL/EOMI Neck: normal alignment, supple Cardiovascular: normal peripheral pulses Respiratory/Chest: no respiratory distress Abdomen: soft Marco Dutton MD Jan 05, 2018 09:29
[2018-01-05] MEDS: Hydroxyurea 500mg cap ORAL SCH (10:33)
[2018-01-05] MEDS: Azithromycin 250 MG in D5W 275 ML IV SCH (10:34)
[2018-01-05] MEDS: Heparin 5000 units/ml inj SUBQ SCH (10:34)
--- NOTE | 2018-01-05 11:04 | Consultation ---
History of Present Illness General Date patient seen: Jan 05, 2018 Chief Complaint: Chest Pain Present Illness HPI 42 y/o M with hx of sickle cell disease on hydroxyurea w/ multiple admission for sickle cell crisis (last November 14), dCHF, HTN, Asthma/COPD, seizure disorder presents to ED on 01/01 with b/l lower extremity pain and chest pain. +family members sick with a cold. Found to have leukocytosis (WBC up to 22) and elevated retic count. Noted to have non pressure ulcer L foot down to level of muscle. Denies LERMA, pleurisy, f/c, n/v/d, urinary symptoms, trauma Allergies: Coded Allergies: PENTAMIDINE ISETHIONATE (Verified Allergy, Severe, palpitations, 08/27/17) AMPICILLIN (Verified Allergy, Unknown, 01/05/18) Tolerated CEftriaxone 01/02/18 KETOROLAC (Verified Allergy, Unknown, 08/03/16) MORPHINE (Verified Allergy, Unknown, 08/03/16) PHENYTOIN (Verified Allergy, Unknown, 08/03/16) Medication History Scheduled Acetaminophen/Diphenhydramine (Acetaminophen Pm Caplet), 2 TAB ORAL BEDTIME, ( Reported) Folic Acid* (Folic Acid*), 1 MG ORAL DAILY Gabapentin* (Gabapentin*), 350 MG ORAL THREE TIMES A DAY, (Reported) Hydromorphone HCl (Dilaudid), 14 MG ORAL EVERY 4 HOURS, (Reported) Hydroxyurea* (Hydrea*), 500 MG PO BID Methadone Hcl* (Methadone*), 60 MG PO Q6HR, (Reported) Phenobarbital (Phenobarbital), 16.2 MG PO BID, (Reported) Scheduled PRN Diphenhydramine HCl (Benadryl), 50 MG PO Q4HR PRN for Itching, (Reported) Discontinued Medications Azithromycin* (Zithromax*), 250 MG ORAL DAILY Discontinued Reason: Pt stopped taking med Dabigatran Etexilate Mesylate* (Pradaxa*), 150 MG ORAL EVERY 12 HOURS, (Reported ) Discontinued Reason: Pt stopped taking med Docusate Sodium* (Docusate Sodium*), 100 MG ORAL TWICE A DAY, (Reported) Discontinued Reason: Pt stopped taking med Patient History Healthcare decision maker Resuscitation status Full Code Advanced Directive on File No Patient History Narrative Pmhx: as above Shx: The patient is single and is unemployed. The patient admits to tobacco use. The patient denies alcohol use. Fhx: non contributory Review of Systems All Other Systems: negative except mentioned in HPI Physical Exam Physical Exam Narrative GENERAL: The patient is a well-developed and well-nourished male, in no apparent distress. HEENT: Eyes, pupils are equal and responsive to light and accommodation. Extraocular movements are intact. NECK: Supple. No lymphadenopathy. CHEST: Lungs are clear to auscultation bilaterally without wheezes or rales. CARDIOVASCULAR: Regular rhythm and rate. S1 and S2 are normal without murmurs, rubs, or gallops. ABDOMEN: Soft, nontender, and nondistended. Positive bowel sounds. No evidence of hepatosplenomegaly. Currently, no rebound or guarding noted. EXTREMITIES: Negative for clubbing, cyanosis, or edema. Last 24 Hour Vital Signs Date Time Temp Pulse Resp B/P (MAP) Pulse Ox O2 Delivery O2 Flow Rate FiO2 01/05/18 08:41 98.1 01/05/18 08:11 98.1 01/05/18 04:00 98.1 80 19 140/80 100 Nasal Cannula 2.0 98.1 01/05/18 00:00 98.7 82 19 142/94 100 98.7 01/04/18 20:00 98.7 80 18 137/95 98 98.7 01/04/18 16:00 98.0 91 20 147/95 98 98.0 01/04/18 12:00 97.8 88 20 143/89 98 97.8 Intake and Output 01/04/18 01/05/18 19:00 07:00 Intake Total 1860 ml 1150 ml Output Total 500 ml Balance 1860 ml 650 ml Intake Oral 500 ml 400 ml IV Total 1360 ml 750 ml Output Urine Total 500 ml # Voids 2 Laboratory Tests Test 01/05/18 05:00 White Blood Count 19.8 K/UL (4.8-10.8) H Red Blood Count 2.98 M/UL (4.70-6.10) L Hemoglobin 9.0 G/DL (14.2-18.0) L Hematocrit 26.1 % (42.0-52.0) L Mean Corpuscular Volume 88 FL (80-99) Mean Corpuscular Hemoglobin 30.1 PG (27.0-31.0) Mean Corpuscular Hemoglobin Concent 34.3 G/DL (32.0-36.0) Red Cell Distribution Width 18.5 % (11.6-14.8) H Platelet Count 318 K/UL (150-450) Mean Platelet Volume 7.6 FL (6.5-10.1) Neutrophils (%) (Auto) % (45.0-75.0) Lymphocytes (%) (Auto) % (20.0-45.0) Monocytes (%) (Auto) % (1.0-10.0) Eosinophils (%) (Auto) % (0.0-3.0) Basophils (%) (Auto) % (0.0-2.0) Differential Total Cells Counted 100 Neutrophils % (Manual) 67 % (45-75) Lymphocytes % (Manual) 23 % (20-45) Monocytes % (Manual) 6 % (1-10) Eosinophils % (Manual) 4 % (0-3) H Basophils % (Manual) 0 % (0-2) Band Neutrophils 0 % (0-8) Nucleated Red Blood Cells 6 /100 WBC Platelet Estimate Adequate Platelet Morphology Normal Giant Platelets Occasional Hypochromasia 2+ Poikilocytosis 1+ Anisocytosis 2+ Sickle Cells Occasional H Sodium Level 140 MMOL/L (136-145) Potassium Level 4.8 MMOL/L (3.5-5.1) Chloride Level 102 MMOL/L (98-107) Carbon Dioxide Level 32 MMOL/L (21-32) Anion Gap 6 mmol/L (5-15) Blood Urea Nitrogen 18 mg/dL (7-18) Creatinine 0.8 MG/DL (0.55-1.30) Estimat Glomerular Filtration Rate > 60 mL/min (>60) Glucose Level 83 MG/DL (74-106) Calcium Level 9.3 MG/DL (8.5-10.1) Phosphorus Level 5.7 MG/DL (2.5-4.9) H Magnesium Level 1.8 MG/DL (1.8-2.4) Total Bilirubin 0.7 MG/DL (0.2-1.0) Aspartate Amino Transf (AST/SGOT) 55 U/L (15-37) H Alanine Aminotransferase (ALT/SGPT) 61 U/L (12-78) Alkaline Phosphatase 178 U/L (46-116) H Total Protein 7.1 G/DL (6.4-8.2) Albumin 3.7 G/DL (3.4-5.0) Globulin 3.4 g/dL Albumin/Globulin Ratio 1.1 (1.0-2.7) Height (Feet): 5 Height (Inches): 11.00 Weight (Pounds): 176 Medications Current Medications Medications (Trade) Dose Ordered Sig/Anthony Route PRN Reason Start Time Stop Time Status Last Admin Dose Admin Acetaminophen (Tylenol) 650 mg Q4H PRN ORAL fever 01/01/18 20:35 01/31/18 20:34 Al Hydroxide/Mg Hydroxide (Mylanta II) 30 ml Q6H PRN ORAL dyspepsia 01/01/18 20:35 01/31/18 20:34 Azithromycin 250 mg/Dextrose 275 ml @ 275 mls/hr Q24HRS IV 01/02/18 10:00 01/06/18 10:59 01/05/18 10:34 Ceftriaxone Sodium 1 gm/ Dextrose 110 ml @ 220 mls/hr Q24H IVPB 01/02/18 13:00 01/09/18 12:59 01/04/18 12:39 Chlorhexidine Gluconate (Val-Hex 2%) 1 applic DAILY@2000 TOPIC 01/04/18 20:00 02/03/18 19:59 01/04/18 20:22 Dextrose (Dextrose 50%) 25 ml STAT PRN IV Hypoglycemia 01/01/18 20:41 01/31/18 20:40 Dextrose (Dextrose 50%) 50 ml STAT PRN IV Hypoglycemia 01/01/18 20:42 01/31/18 20:41 Diphenhydramine HCl (Benadryl) 50 mg Q4H PRN IVP Itching 01/02/18 08:00 02/01/18 07:59 01/05/18 08:11 Gabapentin (Neurontin) 300 mg THREE TIMES A DAY ORAL 01/02/18 09:00 02/01/18 08:59 01/05/18 10:33 Heparin Sodium (Porcine) (Heparin 5000 units/ml) 5,000 units EVERY 12 HOURS SUBQ 01/02/18 09:00 02/01/18 08:59 Hydroxyurea (Hydrea) 500 mg BID ORAL 6/19/18 09:00 01/07/18 08:59 01/05/18 10:33 Lorazepam (Ativan 2mg/ml 1ml) 0.5 mg Q4H PRN IV For Anxiety 01/01/18 20:35 01/08/18 20:34 01/04/18 20:22 Methadone HCl (Methadone HCl) 60 mg Q6HR ORAL 01/02/18 00:00 01/09/18 00:00 01/05/18 05:25 Morphine Sulfate (Morphine Sulfate) 10 mg Q4H PRN IVP pain 7-10 01/01/18 21:42 01/08/18 21:41 01/05/18 08:11 Ondansetron HCl (Zofran) 4 mg Q6H PRN IVP Nausea & Vomiting 01/01/18 20:35 01/31/18 20:34 Polyethylene Glycol (Miralax) 17 gm HSPRN PRN ORAL Constipation 01/01/18 21:00 01/31/18 20:59 Sodium Chloride 1,000 ml @ 75 mls/hr [id number] IV 01/01/18 23:00 01/31/18 22:59 01/05/18 05:57 Zolpidem Tartrate (Ambien) 5 mg HSPRN PRN ORAL Insomnia 01/01/18 21:00 01/08/18 20:59 01/05/18 00:20 Assessment/Plan Assessment/Plan Abx: Azithromycin 01/02 Ceftriaxone 01/02- Assessment: Sickle cell crisis Acute on chronic leukocytosis (baseline 12-14); multifactorial 2ry to above and possible super imposed PNA Probable PNA -CXR: bilateral reticular nodular opacities suggesting underlying interstitial lung disease, likely chronic. There is increased opacity at the right base compared to the prior exam suggesting superimposed infection. Afebrile L foot lateral wound- likely 2ryt o ischemia due to vasoocclusive mechanisms- no signs of acute infection -MRI no OM sickle cell disease on hydroxyurea w/ multiple admission for sickle cell crisis (last November 14) dCHF HTN Asthma/COPD seizure disorder Plan: -On Azithromycin and Ceftriaxone #4; ok to discharge on PO Levaquin to complete course. -f.u sp cx -f/u cx -Monitor CBC/BMP, temperatures -wound care per hospital protocol -podiatry, heme/onc f/u Thank you for this consultation. Will continue to follow along with you. Discussed with GRISELDA. Isadora Frankel M.D. Jan 05, 2018 11:04
--- NOTE | 2018-01-05 11:19 | Diagnostic Imaging Report ---
Indication: Large open wound on dorsal surface of foot extending from the 55 tibia Technique: Sagittal, coronal, and axial FSE STIR, and T1 FSE images obtained of the forefoot Comparison: none Findings: There is image degradation due to motion artifact on the axial and coronal STIR images. There is mild dorsal soft tissue edema. No marrow signal abnormality demonstrated. No focal drainable fluid collections are demonstrated. Impression: Minimal dorsal soft tissue edema, likely related to stated clinical history of dorsal ulcer No evidence of osteomyelitis or drainable soft tissue abscess
--- NOTE | 2018-01-05 11:38 | Diagnostic Imaging Report ---
Indication: Reason For Exam: OSTEOMY Technique: Axial, coronal, and sagittal FSE STIR and T1 FSE images obtained of the hindfoot and ankle Comparison: none Findings: There are innumerable scattered focal small areas of low T1 signal throughout the bone marrow of all the visualized bones, more striking in the large bones. No definite associated posterior signal abnormality, although there are scattered tiny foci of subtle increased STIR signal. No angelic marrow edema changes to suggest osteomyelitis are evident. There is a small ankle joint effusion. There is minimal dorsal soft tissue edema. There is also edema of the soft tissues posterior to the distal tibia and deep to the Achilles tendon. No drainable soft tissue fluid collection demonstrated to suggest abscess Impression: No evidence of acute osteomyelitis. Diffusely abnormal marrow signal on T1 images, as described, without definite corresponding STIR abnormality. Given evidence of bony manifestations of likely sickle cell disease on a [address], this most likely represents bone marrow changes related to sickle cell disease, either small infarcts or areas of fibrosis Minimal dorsal soft tissue edema. No evidence of drainable abscess. Small ankle joint effusion
[2018-01-05 12:00] VITALS: BP 138/96
--- NOTE | 2018-01-05 12:35 | Pulmonology Progress Note ---
Assessment/Plan Problems: (1) Sickle cell crisis (2) Intractable pain (3) Interstitial lung disease (4) Seizure disorder (5) Pulmonary HTN (6) severe diastolic heart disease Assessment/Plan improving gradually s/p two units of prbc, h/h better bilirubin is negative, but Reit count and LDH are elevated IV fluids check LDH, H/H symptomatic treatment check electrolytes doing slightly better wants to go home Subjective ROS Limited/Unobtainable: No Constitutional: Reports: no symptoms HEENT: Repors: no symptoms Respiratory: Reports: no symptoms Allergies: Coded Allergies: PENTAMIDINE ISETHIONATE (Verified Allergy, Severe, palpitations, 08/27/17) AMPICILLIN (Verified Allergy, Unknown, 01/05/18) Tolerated CEftriaxone 01/02/18 KETOROLAC (Verified Allergy, Unknown, 08/03/16) MORPHINE (Verified Allergy, Unknown, 08/03/16) PHENYTOIN (Verified Allergy, Unknown, 08/03/16) Objective Last 24 Hour Vital Signs Date Time Temp Pulse Resp B/P (MAP) Pulse Ox O2 Delivery O2 Flow Rate FiO2 01/05/18 08:41 98.1 01/05/18 08:11 98.1 01/05/18 04:00 98.1 80 19 140/80 100 Nasal Cannula 2.0 98.1 01/05/18 00:00 98.7 82 19 142/94 100 98.7 01/04/18 20:00 98.7 80 18 137/95 98 98.7 01/04/18 16:00 98.0 91 20 147/95 98 98.0 Intake and Output 01/04/18 01/05/18 19:00 07:00 Intake Total 1860 ml 1150 ml Output Total 500 ml Balance 1860 ml 650 ml Intake Oral 500 ml 400 ml IV Total 1360 ml 750 ml Output Urine Total 500 ml # Voids 2 General Appearance: WD/WN HEENT: normocephalic, atraumatic Respiratory/Chest: chest wall non-tender, lungs clear Cardiovascular: normal peripheral pulses, normal rate Abdomen: normal bowel sounds, soft, non tender Extremities: no cyanosis Skin: no lesions 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: abnormal gait Laboratory Tests 01/05/18 05:00: White Blood Count 19.8H, Red Blood Count 2.98L, Hemoglobin 9.0L, Hematocrit 26.1L, Mean Corpuscular Volume 88, Mean Corpuscular Hemoglobin 30.1, Mean Corpuscular Hemoglobin Concent 34.3, Red Cell Distribution Width 18.5H, Platelet Count 318, Mean Platelet Volume 7.6, Neutrophils (%) (Auto) , Lymphocytes (%) (Auto) , Monocytes (%) (Auto) , Eosinophils (%) (Auto) , Basophils (%) (Auto) , Differential Total Cells Counted 100, Neutrophils % ( Manual) 67, Lymphocytes % (Manual) 23, Monocytes % (Manual) 6, Eosinophils % ( Manual) 4H, Basophils % (Manual) 0, Band Neutrophils 0, Nucleated Red Blood Cells 6, Platelet Estimate Adequate, Platelet Morphology Normal, Giant Platelets Occasional, Hypochromasia 2+, Poikilocytosis 1+, Anisocytosis 2+, Sickle Cells OccasionalH, Sodium Level 140, Potassium Level 4.8, Chloride Level 102, Carbon Dioxide Level 32, Anion Gap 6, Blood Urea Nitrogen 18, Creatinine 0.8, Estimat Glomerular Filtration Rate > 60, Glucose Level 83, Calcium Level 9.3, Phosphorus Level 5.7H, Magnesium Level 1.8, Total Bilirubin 0.7, Aspartate Amino Transf (AST/SGOT) 55H, Alanine Aminotransferase (ALT/SGPT) 61, Alkaline Phosphatase 178H, Total Protein 7.1, Albumin 3.7, Globulin 3.4, Albumin/ Globulin Ratio 1.1 Current Medications Medications (Trade) Dose Ordered Sig/Anthony Route PRN Reason Start Time Stop Time Status Last Admin Dose Admin Acetaminophen (Tylenol) 650 mg Q4H PRN ORAL fever 01/01/18 20:35 01/31/18 20:34 Al Hydroxide/Mg Hydroxide (Mylanta II) 30 ml Q6H PRN ORAL dyspepsia 01/01/18 20:35 01/31/18 20:34 Azithromycin 250 mg/Dextrose 275 ml @ 275 mls/hr Q24HRS IV 01/02/18 10:00 01/06/18 10:59 01/05/18 10:34 Ceftriaxone Sodium 1 gm/ Dextrose 110 ml @ 220 mls/hr Q24H IVPB 01/02/18 13:00 01/09/18 12:59 01/04/18 12:39 Chlorhexidine Gluconate (Val-Hex 2%) 1 applic DAILY@2000 TOPIC 01/04/18 20:00 02/03/18 19:59 01/04/18 20:22 Dextrose (Dextrose 50%) 25 ml STAT PRN IV Hypoglycemia 01/01/18 20:41 01/31/18 20:40 Dextrose (Dextrose 50%) 50 ml STAT PRN IV Hypoglycemia 01/01/18 20:42 01/31/18 20:41 Diphenhydramine HCl (Benadryl) 50 mg Q4H PRN IVP Itching 01/02/18 08:00 02/01/18 07:59 01/05/18 08:11 Gabapentin (Neurontin) 300 mg THREE TIMES A DAY ORAL 01/02/18 09:00 02/01/18 08:59 01/05/18 12:26 Heparin Sodium (Porcine) (Heparin 5000 units/ml) 5,000 units EVERY 12 HOURS SUBQ 01/02/18 09:00 02/01/18 08:59 Hydroxyurea (Hydrea) 500 mg BID ORAL 01/02/18 09:00 01/07/18 08:59 01/05/18 10:33 Lorazepam (Ativan 2mg/ml 1ml) 0.5 mg Q4H PRN IV For Anxiety 01/01/18 20:35 01/08/18 20:34 01/04/18 20:22 Methadone HCl (Methadone HCl) 60 mg Q6HR ORAL 01/02/18 00:00 01/09/18 00:00 01/05/18 12:24 Morphine Sulfate (Morphine Sulfate) 10 mg Q4H PRN IVP pain 7-10 01/01/18 21:42 01/08/18 21:41 01/05/18 08:11 Ondansetron HCl (Zofran) 4 mg Q6H PRN IVP Nausea & Vomiting 01/01/18 20:35 01/31/18 20:34 Polyethylene Glycol (Miralax) 17 gm HSPRN PRN ORAL Constipation 01/01/18 21:00 01/31/18 20:59 Sodium Chloride 1,000 ml @ 75 mls/hr [id number] IV 01/01/18 23:00 01/31/18 22:59 01/05/18 05:57 Zolpidem Tartrate (Ambien) 5 mg HSPRN PRN ORAL Insomnia 01/01/18 21:00 01/08/18 20:59 01/05/18 00:20 Hanna Mckenna MD Jan 05, 2018 12:35
[2018-01-05] MEDS: cefTRIAXone 1 GM in D5W 110 ML IVPB SCH (13:00)
--- NOTE | 2018-01-05 17:00 | Consultation ---
DATE OF CONSULTATION: 01/05/2018 REFERRING PHYSICIAN: Mehdi Rosales M.D. CONSULTING PHYSICIAN: Kevin Reese D.P.M. REASON FOR CONSULTATION: Painful chronic wound on the dorsum of the left foot. HISTORY OF PRESENT ILLNESS: The patient is a 42-year-old male, who is known to my service from previous admission, was admitted for a sickle cell crisis. The patient states that he has had wounds on his left foot since approximately 2007 and has been performing his own wound care daily. He seems less agitated from previous admission and appears amenable to treatment. PAST MEDICAL HISTORY: Significant for sickle cell disease, history of seizures, diastolic heart disease, and pulmonary hypertension. MEDICATIONS: Per MAR and currently include ceftriaxone, azithromycin, gabapentin, and heparin for DVT prophylaxis. ALLERGIES: He has allergies to ampicillin, ketorolac, morphine, pentamidine isethionate and phenytoin. FAMILY HISTORY: Noncontributory. SOCIAL HISTORY: Noncontributory. REVIEW OF SYSTEMS: HEENT: The patient denies any headaches, blurred vision, or ringing in the ears. CARDIOVASCULAR: The patient denies any chest pain or shortness of breath. GENITOURINARY: The patient denies any urgency, frequency, burning upon urination, or hematuria. GASTROINTESTINAL: The patient denies any constipation, diarrhea or blood in the stool. EXTREMITIES: Lower extremity, vascular, nonpalpable pedal pulses noted bilaterally. Feet are equally warm. No edema or cyanosis noted. DERMATOLOGICAL: There is a full-thickness ulceration noted on the dorsolateral aspect of the left foot. There has been 2 segments nearly coalescing. It is full thickness down to the level of muscle. There is serous drainage noted from the site. No malodor is noted. The periwound skin appears within normal limits and regular. No other ulcers or lesions are noted. LABORATORY AND DIAGNOSTIC DATA: White blood cell count is 19.0, hemoglobin and hematocrit is 8.9 and 25.6, and platelet count 319,000. Sodium is 141, potassium is 4.8, BUN is 17, creatinine is 0.9, and glucose is 117. Albumin is 3.5. No lower extremity imaging is noted. ASSESSMENT: 1. 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 2. Questionable . 3. Sickle cell disease. PLAN: 1. We will order an MRI of the left foot without contrast. This was ordered during a previous admission in September and the patient left AMA without having this study done. He is amenable to having it done today. 2. We will order wound care to consist of Maxorb Ag and dry dressing daily. 3. We will follow. Thank you for the courtesy of this consultation. Kevin Reese D.P.M. DR: COLLEEN JOB#: [id number] CC:
--- NOTE | 2018-01-05 23:09 | General Progress Note ---
Assessment/Plan Assessment/Plan MDD Anxiety -Neurontin -ativan prn Subjective Date patient seen: Jan 05, 2018 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: Reports: anxiety, depressed Allergies: Coded Allergies: PENTAMIDINE ISETHIONATE (Verified Allergy, Severe, palpitations, 08/27/17) AMPICILLIN (Verified Allergy, Unknown, hives, 01/05/18) Tolerated CEftriaxone 01/02/18 KETOROLAC (Verified Allergy, Unknown, 08/03/16) MORPHINE (Verified Allergy, Unknown, 08/03/16) PHENYTOIN (Verified Allergy, Unknown, 08/03/16) Subjective the ptc/o more anxiety and depression Objective Last 24 Hour Vital Signs Date Time Temp Pulse Resp B/P (MAP) Pulse Ox O2 Delivery O2 Flow Rate FiO2 01/05/18 13:20 98.1 01/05/18 12:50 98.1 01/05/18 12:00 98.1 86 18 138/96 100 Nasal Cannula 2.0 98.1 01/05/18 08:11 98.1 01/05/18 04:00 98.1 80 19 140/80 100 Nasal Cannula 2.0 98.1 01/05/18 00:00 98.7 82 19 142/94 100 98.7 Intake and Output 01/04/18 01/05/18 19:00 07:00 Intake Total 1860 ml 1150 ml Output Total 500 ml Balance 1860 ml 650 ml Intake Oral 500 ml 400 ml IV Total 1360 ml 750 ml Output Urine Total 500 ml # Voids 2 Laboratory Tests 01/05/18 05:00: White Blood Count 19.8H, Red Blood Count 2.98L, Hemoglobin 9.0L, Hematocrit 26.1L, Mean Corpuscular Volume 88, Mean Corpuscular Hemoglobin 30.1, Mean Corpuscular Hemoglobin Concent 34.3, Red Cell Distribution Width 18.5H, Platelet Count 318, Mean Platelet Volume 7.6, Neutrophils (%) (Auto) , Lymphocytes (%) (Auto) , Monocytes (%) (Auto) , Eosinophils (%) (Auto) , Basophils (%) (Auto) , Differential Total Cells Counted 100, Neutrophils % ( Manual) 67, Lymphocytes % (Manual) 23, Monocytes % (Manual) 6, Eosinophils % ( Manual) 4H, Basophils % (Manual) 0, Band Neutrophils 0, Nucleated Red Blood Cells 6, Platelet Estimate Adequate, Platelet Morphology Normal, Giant Platelets Occasional, Hypochromasia 2+, Poikilocytosis 1+, Anisocytosis 2+, Sickle Cells OccasionalH, Sodium Level 140, Potassium Level 4.8, Chloride Level 102, Carbon Dioxide Level 32, Anion Gap 6, Blood Urea Nitrogen 18, Creatinine 0.8, Estimat Glomerular Filtration Rate > 60, Glucose Level 83, Calcium Level 9.3, Phosphorus Level 5.7H, Magnesium Level 1.8, Total Bilirubin 0.7, Aspartate Amino Transf (AST/SGOT) 55H, Alanine Aminotransferase (ALT/SGPT) 61, Alkaline Phosphatase 178H, Total Protein 7.1, Albumin 3.7, Globulin 3.4, Albumin/ Globulin Ratio 1.1 Height (Feet): 5 Height (Inches): 11.00 Weight (Pounds): 176 Deedee Sims M.D. Jan 05, 2018 23:09
--- NOTE | 2018-01-07 08:54 | Discharge Summary ---
Discharge Summary Discharge Summary _ DATE OF ADMISSION: 01/01/2018 DATE OF DISCHARGE: 01/05/2018 REASON FOR ADMISSION: 42 years old male with a history of sickle cell disease, COPD/asthma, diastolic dysfunction, pulmonary hypertension, systemic hypertension, multiply admission for sickle cell crisis, last done sign AMA, presented to emergency room with the complaint of generalized diffused pain. He reported that some of his family members had pneumonia, and was thinking he may have caught it as well. Denied fevers, chills. Patient was afebrile. Pulse oximetry was stable on room air. Patient noted to be tachycardic with heart rate 138. Laboratory workup revealed leukocytosis WBC 22, hemoglobin 7.5, hematocrit 22.4. BUN 33, creatinine 1.1. LDH 418. Reticulocyte count 2.2 Chest x-ray revealed: Bilateral interstitial opacities, similar to the prior exam , chronic interstitial disease/fibrotic change. Interval development of focal new opacity/increased density, involving the right lower lung most concerning for acute infiltrate. Patient admitted with diagnosis of probable pneumonia, sickle cell disease, sickle cell anemia ,sickle cell crisis, leukocytosis, severe diastolic CHF and pulmonary hypertension. CONSULTANTS: pulmonary Dr. Mckenna ID specialist Dr. Duran cage tender/oncologist Dr. Dutton psychiatrist pain specialist Dr. Perera HOSPITAL COURSE: Patient admitted. Patient started on generous intravenous hydration and empiric antibiotics. Infectious disease doctor and food beverage attendant followed . Supplemental oxygen provided as needed to keep pulse oximetry above 92%. Pulmonary toilet provided as needed. Incentive spirometry was taught and encouraged. Per infectious disease specialist, patient had acute on chronic leukocytosis. Baseline leukocytosis 12-14. Acute leukocytosis was likely secondary to probable pneumonia as well as the sickle cell crisis. Web Offset Press Feeder closely followed. Patient was continued on folic acid and Hydrea. Hemoglobin and hematocrit were closely monitored. Patient undergone transfusion of 2 units of leukocyte reduced red blood cells. Hemoglobin and hematocrit stable, on the baseline prior to discharge. LDH was the monitored. Patient noted to have transaminitis, likely secondary to iron overload in the past. Web Offset Press Feeder recommended follow-up with the cage tender as outpatient on the regular basis to keep sickle cell disease under control. Pain management provided as per pain specialist recommendation. Pain was addressed and controlled.. Bowel regimen instituted. Renal parameters and electrolytes were closely monitored. Electrolytes were corrected as needed. Nephrotoxins were avoided. Prior to discharge BUN down to 18, creatinine. 0.8 Psychiatrist seen and evaluated the patient and diagnosed patient with major depressive disorder and anxiety disorder. Patient was started on Neurontin. Anxiolytics were on board as needed. Service Desk Manager closely followed patient for left foot chronic non-pressure ulcer to the level of muscle. MRI of the left foot and left ankle revealed no evidence of acute osteomyelitis and no evidence of abscess. Wound care provided as per personal financial advisor recommendation. DVT prophylaxis provided . GI prophylaxis provided . Supportive care provided . Patient clinically improved asnd was stable for discharge home. FINAL DIAGNOSES: Probable bilateral pneumonia Sickle cell crisis Sickle cell anemia status post blood transfusion Sickle cell disease Severe diastolic CHF Pulmonary hypertension Interstitial lung disease Acute on chronic leukocytosis, multifactorial Left foot chronic non-pressure ulcer to the level of the muscle Transaminitis( likely secondary to iron overload in the past) Noncompliance Major depressive disorder Anxiety DISCHARGE MEDICATIONS: See Medication Reconciliation list. DISCHARGE INSTRUCTIONS: Patient was discharged home. Encouraged compliance with medication regimen. Encouraged to follow-up with the cage tender on a regular basis. I have been assigned to dictate discharge summary for this account. I was not involved in the patient's management. Mikayla Camara NP Jan 07, 2018 08:54
== END 2018-01-05 14:35 | disposition home or self-care (01) | DRG 662 ==
LOC: EMR 16:38 → 4W 19:10 → EDBEDREQ 20:14 → 4W 23:39
PROC: 30253N1 (ICD-10-PCS; principal; 2018-01-03)
DX: D57.819 Other sickle-cell disorders with crisis, unspecified (principal); J84.9 Interstitial pulmonary disease, unspecified; J18.9 Pneumonia, unspecified organism; I11.0 Hypertensive heart disease with heart failure; M87.852 Other osteonecrosis, left femur; M87.851 Other osteonecrosis, right femur; I50.30 Unspecified diastolic (congestive) heart failure; I27.20 Pulmonary hypertension, unspecified; F32.9 Major depressive disorder, single episode, unspecified; F41.9 Anxiety disorder, unspecified; J44.0 Chronic obstructive pulmonary disease with (acute) lower respiratory infection; R70.1 Abnormal plasma viscosity; L97.525 Non-pressure chronic ulcer of other part of left foot with muscle involvement without evidence of necrosis; G40.909 Epilepsy, unspecified, not intractable, without status epilepticus; R74.0 Nonspecific elevation of levels of transaminase and lactic acid dehydrogenase [LDH]; Z91.19 Patient's noncompliance with other medical treatment and regimen
CPT/HCPCS: 36415; 71045; 80048; 80053; 83615; 83735; 84100; 85007; 85025; 85044; 86850; 86900; 86901; 86920; 93005; 99285; J2405

== ENCOUNTER 2018-06-16 13:12 | Inpatient (IN) | payer MEDICARE, OTHER ==
[~2018-06-16] VITALS: Ht 180.3 cm; Wt 71.2 kg
[~2018-06-16 13:12] MED LIST changes: +ACETAMINOPHEN1 EACH ORAL; +GABAPENTIN300 MG ORAL; +PHENOBARBITAL16.2 MG PO
[2018-06-16] MEDS ORDERED: DiphenhydrAMINE 50mg/ml Inj IVP ONE ×2 (13:30→15:30)
[2018-06-16 13:53] VITALS: BP 123/74
[2018-06-16 14:32] LABS: HEMATOCRIT 23.3 % (42.0-52.0); HEMOGLOBIN 7.5 G/DL (14.2-18.0); MEAN CORPUSCULAR VOLUME 89 FL (80-99); PLATELET COUNT 348 K/UL (150-450); RED CELL DISTRIBUTION WIDTH 15.9 % (11.6-14.8); WHITE BLOOD COUNT 16.9 K/UL (4.8-10.8)
[2018-06-16 14:40] LABS: INR 1.2 (0.9-1.1)
[2018-06-16 14:43] LABS: ANION GAP 2 mmol/L (5-15); BLOOD UREA NITROGEN 25 mg/dL (7-18); CALCIUM 9.3 MG/DL (8.5-10.1); CARBON DIOXIDE 32 MMOL/L (21-32); CHLORIDE 107 MMOL/L (98-107); CREATININE 0.9 MG/DL (0.55-1.30); POTASSIUM 5.2 MMOL/L (3.5-5.1); SODIUM 141 MMOL/L (136-145)
--- NOTE | 2018-06-16 14:56 | Diagnostic Imaging Report ---
EXAM: XR Chest, 1 View CLINICAL HISTORY: CP TECHNIQUE: Frontal view of the chest. COMPARISON: 01/01/18. FINDINGS: Redemonstrated infusion port in a right internal jugular approach, tip appropriately positioned near the cavoatrial junction. Redemonstrated diffuse interstitial pulmonary infiltrates, similar to prior. Left midlung consolidation is not significantly changed. Question persistent infectious infiltrate superimposed on chronic interstitial lung disease. IMPRESSION: Chronic interstitial pulmonary disease. Persistent left midlung opacity, potentially reflecting infectious airspace consolidation. Redemonstrated right IJ infusion port.
[2018-06-16 14:59] LABS: ALANINE AMINOTRANSFERASE 53 U/L (12-78); ALBUMIN 3.5 G/DL (3.4-5.0); ALBUMIN/GLOBULIN RATIO 1.1 (1.0-2.7); ALKALINE PHOSPHATASE 156 U/L (46-116); ASPARTATE AMINO TRANSFERASE 41 U/L (15-37); BILIRUBIN,TOTAL 1.2 MG/DL (0.2-1.0); CREATINE KINASE 14 U/L (26-308); LACTATE DEHYDROGENASE 413 U/L (81-234)
[2018-06-16 15:00] LABS: BILIRUBIN,DIRECT 0.2 MG/DL (0.0-0.3)
[2018-06-16 15:44] VITALS: BP 116/78
[2018-06-16 15:52] LABS: APPEARANCE,URINE CLEAR; BILIRUBIN, URINE NEGATIVE (NEGATIVE); COLOR,URINE PALE YELLOW; GLUCOSE, URINE (UA) NEGATIVE (NEGATIVE); KETONES,URINE NEGATIVE (NEGATIVE); LEUKOCYTE ESTERASE ,URINE NEGATIVE (NEGATIVE); NITRITE,URINE NEGATIVE (NEGATIVE); PH,URINE 5 (4.5-8.0); PROTEIN,URINE 3+ (NEGATIVE); UROBILINOGEN,URINE NORMAL MG/DL (0.0-1.0)
[2018-06-16] MEDS ORDERED: Mylanta II UD 30ml ORAL PRN (16:00)
[2018-06-16] MEDS ORDERED: LORazepam Inj 2mg/ml 1ml IV PRN (16:00)
[2018-06-16] MEDS ORDERED: Miralax 17gm pkt ORAL PRN (16:00)
[2018-06-16] MEDS ORDERED: Zolpidem 5mg tab ORAL PRN (16:00)
[2018-06-16 16:31] VITALS: BP 133/93
[2018-06-16 20:00] VITALS: BP 109/84
[2018-06-16] MEDS: DiphenhydrAMINE 50mg/ml Inj IVP PRN (20:54)
[2018-06-16] MEDS: Heparin 5000 units/ml inj SUBQ SCH ×2 (20:55→21:00)
--- NOTE | 2018-06-16 21:24 | Emergency Room Report ---
History of Present Illness General Chief Complaint: General Complaint Source: Patient Present Illness HPI Patient presents with body and leg pain which is his usual sickle cell crisis. This has worsened over the last few days, but more today. Has been taking Dilaudid 16 mg at a dose without relief. Pain rated 9/10, back hips and L knee. No fevers or cough. On chronic O2 at home for pulmonary disease. He states he usually gets transfused when Hgb below 7. On hydroxyurea. Also taking methadone 60 mg/d. No NVD, dysuria, headache, neck stiffness. No rashes. Avascular necrosis of hips. Holding L knee extended as feels better this way. H/O seizures - on phenobarbital. In past phenobarbital level has been low. H/O bilateral DVTs LE 2016. Apparently not anticoagulated at this time. Allergies: Coded Allergies: PENTAMIDINE ISETHIONATE (Verified Allergy, Severe, palpitations, 08/27/17) AMPICILLIN (Verified Allergy, Unknown, hives, 01/05/18) Tolerated CEftriaxone 01/02/18 KETOROLAC (Verified Allergy, Unknown, 08/03/16) MORPHINE (Verified Allergy, Unknown, 08/03/16) PHENYTOIN (Verified Allergy, Unknown, 08/03/16) Patient History Past Medical History: see triage record Past Surgical History: other - portacath Social History: Denies: smoking Social History Narrative from home Reviewed Nursing Documentation: PMH: Agreed; PSxH: Agreed Nursing Documentation-PM Past Medical History: No History, Except For Hx Cardiac Problems: Yes Hx Hypertension: Yes Hx Asthma: Yes Hx COPD: Yes Hx Cancer: No Hx Gastrointestinal Problems: No Hx Neurological Problems: Yes Hx Seizures: Yes Review of Systems All Other Systems: negative except mentioned in HPI Physical Exam Vital Signs Date Time Temp Pulse Resp B/P (MAP) Pulse Ox O2 Delivery O2 Flow Rate FiO2 06/16/18 13:19 98.2 105 16 123/74 83 Room Air 06/16/18 13:37 4.0 98 Sp02 EP Interpretation: reviewed, abnormal - interpreted as low by me General Appearance: no apparent distress, GCS 15, non-toxic, Chronically Ill Head: normocephalic, atraumatic Eyes: bilateral eye PERRL, bilateral eye conjunctivae pale ENT: normal pharynx, moist mucus membranes Neck: full range of motion, supple Respiratory: chest non-tender, decreased breath sounds, other - portacath R Cardiovascular #1: no edema, tachycardia Cardiovascular #2: 2+ radial (R), 2+ dorsalis pedis (L) Gastrointestinal: normal bowel sounds, non tender, soft, no mass Genitourinary: no CVA tenderness Musculoskeletal: back normal - but reported pain, digits/nails normal, no calf tenderness, tender - L knee Neurologic: oriented x3, maintenance specialist III-XII nml as tested - dysconjugate gaze, motor strength/tone normal, sensory intact, speech normal Psychiatric: mood/affect normal Skin: warm/dry, pallor Medical Decision Making Diagnostic Impression: Primary Impression: Sickle cell crisis Additional Impressions: Anemia Qualified Codes: D64.89 - Other specified anemias Avascular necrosis of femur head, left Avascular necrosis of femur head, right Hypoxia Chronic interstitial lung disease ER Course Patient presents with sickle cell crisis pain. DDx: sickle cell crisis, anemia , opiate dependence/tolerance, dehydration, acute sickle chest syndrome, PE, gout amongst others. Evaluation with EKG, CXR and labs. Treatment with IV hydration and analgesia. Place on panel monitor. Chronic hypoxia of concern. Not febrile and no cough. EKG without injury. CXR with chronic changes and interstitial disease. Elevated WBC (usual) and anemia (Hgb = 7.5 - last was 9). LDH elevated. Retic low for degree of anemia. + opiates. Uric acid normal. As afebrile, antibiotics not indicated at this time. Improved, but still with pain. Dilaudid repeated. Retic has been this low in past. Concern for possible bone marrow failure and possible need for transfusion. Improved. O2 100% on oxygen. Doubt PE. Admit med Dr. Zarate. Laboratory Tests Test 06/16/18 13:50 06/16/18 15:10 White Blood Count 16.9 K/UL (4.8-10.8) H Red Blood Count 2.60 M/UL (4.70-6.10) L Hemoglobin 7.5 G/DL (14.2-18.0) L Hematocrit 23.3 % (42.0-52.0) L Mean Corpuscular Volume 89 FL (80-99) Mean Corpuscular Hemoglobin 28.7 PG (27.0-31.0) Mean Corpuscular Hemoglobin Concent 32.1 G/DL (32.0-36.0) Red Cell Distribution Width 15.9 % (11.6-14.8) H Platelet Count 348 K/UL (150-450) Mean Platelet Volume 7.6 FL (6.5-10.1) Neutrophils (%) (Auto) % (45.0-75.0) Lymphocytes (%) (Auto) % (20.0-45.0) Monocytes (%) (Auto) % (1.0-10.0) Eosinophils (%) (Auto) % (0.0-3.0) Basophils (%) (Auto) % (0.0-2.0) Differential Total Cells Counted 100 Neutrophils % (Manual) 51 % (45-75) Lymphocytes % (Manual) 39 % (20-45) Monocytes % (Manual) 2 % (1-10) Eosinophils % (Manual) 7 % (0-3) H Basophils % (Manual) 1 % (0-2) Band Neutrophils 0 % (0-8) Platelet Estimate Adequate Platelet Morphology Normal Hypochromasia 3+ Anisocytosis 1+ Reticulocyte Count 1.1 % (0.0-2.0) Prothrombin Time 12.4 SEC (9.30-11.50) H Prothrombin Time INR 1.2 (0.9-1.1) H PTT 33 SEC (23-33) Sodium Level 141 MMOL/L (136-145) Potassium Level 5.2 MMOL/L (3.5-5.1) H Chloride Level 107 MMOL/L (98-107) Carbon Dioxide Level 32 MMOL/L (21-32) Anion Gap 2 mmol/L (5-15) L Blood Urea Nitrogen 25 mg/dL (7-18) H Creatinine 0.9 MG/DL (0.55-1.30) Estimate Glomerular Filtration Rate > 60 mL/min (>60) Glucose Level 98 MG/DL (74-106) Calcium Level 9.3 MG/DL (8.5-10.1) Total Bilirubin 1.2 MG/DL (0.2-1.0) H Direct Bilirubin 0.2 MG/DL (0.0-0.3) Aspartate Amino Transferase (AST) 41 U/L (15-37) H Alanine Aminotransferase (ALT) 53 U/L (12-78) Alkaline Phosphatase 156 U/L (46-116) H Lactate Dehydrogenase 413 U/L (81-234) H Total Creatine Kinase 14 U/L (26-308) L Troponin I 0.003 ng/mL (0.000-0.056) Pro-B-Type Natriuretic Peptide 354 pg/mL (0-125) H Total Protein 6.8 G/DL (6.4-8.2) Albumin 3.5 G/DL (3.4-5.0) Globulin 3.3 g/dL Albumin/Globulin Ratio 1.1 (1.0-2.7) Urine Color Pale yellow Urine Appearance Clear Urine pH 5 (4.5-8.0) Urine Specific [place] 1.010 (1.005-1.035) Urine Protein 3+ (NEGATIVE) H Urine Glucose (UA) Negative (NEGATIVE) Urine Ketones Negative (NEGATIVE) Urine Blood 1+ (NEGATIVE) H Urine Nitrite Negative (NEGATIVE) Urine Bilirubin Negative (NEGATIVE) Urine Urobilinogen Normal MG/DL (0.0-1.0) Urine Leukocyte Esterase Negative (NEGATIVE) Urine RBC 2-4 /HPF (0 - 0) H Urine WBC 0-2 /HPF (0 - 0) Urine Squamous Epithelial Cells None /LPF (NONE/OCC) Urine Bacteria Few /HPF (NONE) Urine Opiates Screen Positive (NEGATIVE) H Urine Barbiturates Screen Negative (NEGATIVE) Phencyclidine (PCP) Screen Negative (NEGATIVE) Urine Amphetamines Screen Negative (NEGATIVE) Urine Benzodiazepines Screen Negative (NEGATIVE) Urine Cocaine Screen Negative (NEGATIVE) Urine Marijuana (THC) Screen Negative (NEGATIVE) EKG Diagnostic Results Rate: tachycardiac ST Segments: no acute changes - LVH, T inversions Rhythm Strip Diag. Results EP Interpretation: yes Rhythm: no PVC's, no ectopy, other - ST Chest X-Ray Diagnostic Results Chest X-Ray Diagnostic Results : Chest X-Ray Ordered: Yes # of Views/Limited/Complete: 1 View Indication: Other EP Interpretation: Yes Interpretation: no effusion, no pneumothorax, other - interstitial lung disease and chronic infiltrate, inc cor and portacath Impression: Other Electronically Signed by: Artie Cobrun MD Last Vital Signs Date Time Temp Pulse Resp B/P (MAP) Pulse Ox O2 Delivery O2 Flow Rate FiO2 06/16/18 17:26 Nasal Cannula 6.0 06/16/18 16:31 98.8 95 20 133/93 (106) 96 06/16/18 16:26 98 Status: improved Disposition: ADMITTED INPATIENT Condition: Serious Referrals: Aquilino Dutton MD (PCP) Artie Coburn MD Jun 16, 2018 21:24
[2018-06-17] VITALS: BP 142/62
[2018-06-17] MEDS: DiphenhydrAMINE 50mg/ml Inj IVP PRN ×6 (01:34→22:26)
[2018-06-17 04:00] VITALS: BP 148/83
[2018-06-17 07:16] LABS: HEMATOCRIT 21.7 % (42.0-52.0); HEMOGLOBIN 7.2 G/DL (14.2-18.0); MEAN CORPUSCULAR VOLUME 89 FL (80-99); PLATELET COUNT 302 K/UL (150-450); RED BLOOD COUNT 2.44 M/UL (4.70-6.10); RED CELL DISTRIBUTION WIDTH 16.3 % (11.6-14.8); WHITE BLOOD COUNT 20.5 K/UL (4.8-10.8)
[2018-06-17 07:52] LABS: ALANINE AMINOTRANSFERASE 50 U/L (12-78); ALBUMIN 3.3 G/DL (3.4-5.0); ALKALINE PHOSPHATASE 163 U/L (46-116); ANION GAP 3 mmol/L (5-15); ASPARTATE AMINO TRANSFERASE 35 U/L (15-37); BLOOD UREA NITROGEN 23 mg/dL (7-18); CALCIUM 9.3 MG/DL (8.5-10.1); CARBON DIOXIDE 33 MMOL/L (21-32); CHLORIDE 105 MMOL/L (98-107); LACTATE DEHYDROGENASE 350 U/L (81-234); POTASSIUM 5.4 MMOL/L (3.5-5.1); SODIUM 141 MMOL/L (136-145)
[2018-06-17 08:00] VITALS: BP 118/85
[2018-06-17] MEDS: Heparin 5000 units/ml inj SUBQ SCH ×2 (08:15→20:04)
--- NOTE | 2018-06-17 11:58 | General Progress Note ---
Assessment/Plan Assessment/Plan (1) Intractable pain (2) Avascular necrosis of femur head, left (3) Sickle cell disease and crisis (4) Avascular necrosis of femur head, right Patient will be continued on methadone and Dilaudid as needed. Pt was d/w Dr. Perera and he concurred. Subjective Date patient seen: Jun 17, 2018 Time patient seen: 10:00 - am Allergies: Coded Allergies: PENTAMIDINE ISETHIONATE (Verified Allergy, Severe, palpitations, 08/27/17) AMPICILLIN (Verified Allergy, Unknown, hives, 01/05/18) Tolerated CEftriaxone 01/02/18 KETOROLAC (Verified Allergy, Unknown, 08/03/16) MORPHINE (Verified Allergy, Unknown, 08/03/16) PHENYTOIN (Verified Allergy, Unknown, 08/03/16) Subjective Constitutional: Reports: chills HEENT: Denies: blurred vision, double vision, ear discharge, ear pain, eye pain , mouth pain, mouth swelling, nose congestion, nose pain, tearing, throat pain, throat swelling Cardiovascular: Denies: chest pain, edema, irregular heart rate, lightheadedness, palpitations, syncope Respiratory: Denies: SOB at rest, SOB with excertion, cough, orthopnea, shortness of breath, sputum, stridor, wheezing Gastrointestinal/Abdominal: Denies: abdomen distended, abdominal pain, black stools, blood in stool, constipated, diarrhea, difficulty swallowing, nausea, poor appetite, poor fluid intake, rectal bleeding, tarry stools, vomiting Genitourinary: Denies: burning, discharge, flank pain, frequency, hematuria, incontinence, pain, urgency 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: Denies: anxiety, depressed, emotional problems, headache, numbness, paresthesia, pre-existing deficit, seizure, tingling, tremors, weakness Endocrine: Reports: other, Denies: excessive sweating, flushing, increased hunger, increased thirst, increased urine, intolerance to cold, intolerance to heat, unexplained weight gain, unexplained weight loss Hematologic/Lymphatic: Denies: anemia, easy bleeding, easy bruising Subjective Patient is a known patient from prior admissions. Has returned due to SS crisis and was started on Methadone 60mg Q6H ATC and Dilaudid 2mg IV Q4H PRN severe pain. He is comfortable in no acute distress at this time. Objective Last 24 Hour Vital Signs Date Time Temp Pulse Resp B/P (MAP) Pulse Ox O2 Delivery O2 Flow Rate FiO2 06/17/18 09:00 Nasal Cannula 2.0 06/17/18 08:00 98.1 89 12 118/85 (96) 99 06/17/18 04:00 98.9 20 148/83 (104) 89 06/17/18 00:00 97.0 16 142/62 (88) 96 06/16/18 21:00 Nasal Cannula 2.0 06/16/18 20:00 98.0 18 109/84 (92) 97 06/16/18 17:26 Nasal Cannula 6.0 06/16/18 16:31 98.8 95 20 133/93 (106) 96 06/16/18 16:26 98.2 90 16 116/78 100 Nasal Cannula 4.0 98 06/16/18 16:02 98.2 06/16/18 15:44 98.2 90 16 116/78 100 Nasal Cannula 4.0 98 06/16/18 15:26 98.2 06/16/18 13:53 98.2 102 16 123/74 97 Nasal Cannula 4.0 98 06/16/18 13:37 105 16 Nasal Cannula 4.0 98 06/16/18 13:19 98.2 105 16 123/74 83 Room Air Intake and Output 06/16/18 06/17/18 19:00 07:00 Intake Total 390 ml 800 ml Output Total 900 ml 2400 ml Balance -510 ml -1600 ml Intake Oral 240 ml 800 ml IV Total 150 ml Output Urine Total 900 ml 2400 ml # Voids 1 3 # Bowel Movements 1 Laboratory Tests 06/16/18 13:50: White Blood Count 16.9H, Red Blood Count 2.60L, Hemoglobin 7.5L, Hematocrit 23.3L, Mean Corpuscular Volume 89, Mean Corpuscular Hemoglobin 28.7, Mean Corpuscular Hemoglobin Concent 32.1, Red Cell Distribution Width 15.9H, Platelet Count 348, Mean Platelet Volume 7.6, Neutrophils (%) (Auto) , Lymphocytes (%) (Auto) , Monocytes (%) (Auto) , Eosinophils (%) (Auto) , Basophils (%) (Auto) , Differential Total Cells Counted 100, Neutrophils % ( Manual) 51, Lymphocytes % (Manual) 39, Monocytes % (Manual) 2, Eosinophils % ( Manual) 7H, Basophils % (Manual) 1, Band Neutrophils 0, Platelet Estimate Adequate, Platelet Morphology Normal, Hypochromasia 3+, Anisocytosis 1+, Reticulocyte Count 1.1, Prothrombin Time 12.4H, Prothromb Time International Ratio 1.2H, Activated Partial Thromboplast Time 33, Sodium Level 141, Potassium Level 5.2H, Chloride Level 107, Carbon Dioxide Level 32, Anion Gap 2L, Blood Urea Nitrogen 25H, Creatinine 0.9, Estimat Glomerular Filtration Rate > 60, Glucose Level 98, Uric Acid 4.1, Calcium Level 9.3, Total Bilirubin 1.2H, Direct Bilirubin 0.2, Aspartate Amino Transf (AST/SGOT) 41H, Alanine Aminotransferase (ALT/SGPT) 53, Alkaline Phosphatase 156H, Lactate Dehydrogenase 413H, Total Creatine Kinase 14L, Troponin I 0.003, Pro-B-Type Natriuretic Peptide 354H, Total Protein 6.8, Albumin 3.5, Globulin 3.3, Albumin/ Globulin Ratio 1.1 06/16/18 15:10: Urine Color Pale yellow, Urine Appearance Clear, Urine pH 5, Urine Specific [place] 1.010, Urine Protein 3+H, Urine Glucose (UA) Negative, Urine Ketones Negative, Urine Blood 1+H, Urine Nitrite Negative, Urine Bilirubin Negative, Urine Urobilinogen Normal, Urine Leukocyte Esterase Negative, Urine RBC 2-4H, Urine WBC 0-2, Urine Squamous Epithelial Cells None, Urine Bacteria Few, Urine Opiates Screen PositiveH, Urine Barbiturates Screen Negative, Phencyclidine (PCP ) Screen Negative, Urine Amphetamines Screen Negative, Urine Benzodiazepines Screen Negative, Urine Cocaine Screen Negative, Urine Marijuana (THC) Screen Negative 06/17/18 05:00: White Blood Count 20.5H, Red Blood Count 2.44L, Hemoglobin 7.2L, Hematocrit 21.7L, Mean Corpuscular Volume 89, Mean Corpuscular Hemoglobin 29.7, Mean Corpuscular Hemoglobin Concent 33.3, Red Cell Distribution Width 16.3H, Platelet Count 302, Mean Platelet Volume 7.4, Neutrophils (%) (Auto) , Lymphocytes (%) (Auto) , Monocytes (%) (Auto) , Eosinophils (%) (Auto) , Basophils (%) (Auto) , Differential Total Cells Counted 100, Neutrophils % ( Manual) 57, Lymphocytes % (Manual) 24, Monocytes % (Manual) 6, Eosinophils % ( Manual) 13H, Basophils % (Manual) 0, Band Neutrophils 0, Platelet Estimate Adequate, Platelet Morphology , Hypochromasia 2+, Anisocytosis 2+, Sodium Level 141, Potassium Level 5.4H, Chloride Level 105, Carbon Dioxide Level 33H, Anion Gap 3L, Blood Urea Nitrogen 23H, Creatinine 1.0, Estimat Glomerular Filtration Rate > 60, Glucose Level 94, Calcium Level 9.3, Total Bilirubin 1.0, Aspartate Amino Transf (AST/SGOT) 35, Alanine Aminotransferase (ALT/SGPT) 50, Alkaline Phosphatase 163H, Lactate Dehydrogenase 350H, Total Protein 6.5, Albumin 3.3L, Globulin 3.2, Albumin/Globulin Ratio 1.0, Nucleated Red Blood Cells , Giant Platelets 1+ Height (Feet): 5 Height (Inches): 11.00 Weight (Pounds): 157 Objective General Appearance: no apparent distress, alert EENT: PERRL/EOMI, normal ENT inspection Neck: non-tender, normal alignment Cardiovascular: normal rate, regular rhythm Respiratory/Chest: decreased breath sounds Abdomen: non tender, soft Edema: no edema noted Neurologic: alert, oriented x 3 Skin: warm/dry Cj Anderson Jun 17, 2018 11:58
[2018-06-17 12:00] VITALS: BP 116/79
--- NOTE | 2018-06-17 12:42 | Consultation ---
History of Present Illness General Date patient seen: Jun 17, 2018 Time patient seen: 11:30 Chief Complaint: General Complaint Referring physician: dr Zarate Reason for Consultation: chronic hypoxemia, asthma Present Illness HPI 42 y/old male with history of sickle cell disease with pain crises, history of DVT bilateral lower extremity ,COPD/asthma, hypertension, diastolic CHF, severe pulmonary HTN, seizure disorder, anemia, substance-abuse, presented to emergency department with generalized body pain along with lower back , bilateral hip and and left knee. Patient chronically oxygen dependent at home No fever , no cough, no congestion, no wheezing, no hemoptysis He denied nausea , vomiting, diarrhea; no headache , no neck stiffness, no rashes, no dysuria . Upon evaluation troponin was negative. EKG revealed no acute ischemic changes. Laboratory workup revealed leukocytosis (usual ) and anemia with hemoglobin 7.5 ( this am -7.2). Elevated LDH. Urine tox screen positive for opiates Noted elevated total bilirubin and AST. Reticulocyte count low for this kind of anemia, and was low in the past. There was question for need of bone marrow biopsy Chest x-ray revealed chronic interstitial disease. Persistent left midlung opacity . Patient was placed on supplemetnal oxygen. Patient was admitted for further management with diagnosis of sickle cell crisis Allergies: Coded Allergies: PENTAMIDINE ISETHIONATE (Verified Allergy, Severe, palpitations, 08/27/17) AMPICILLIN (Verified Allergy, Unknown, hives, 01/05/18) Tolerated CEftriaxone 01/02/18 KETOROLAC (Verified Allergy, Unknown, 08/03/16) MORPHINE (Verified Allergy, Unknown, 08/03/16) PHENYTOIN (Verified Allergy, Unknown, 08/03/16) Medication History Scheduled Acetaminophen/Diphenhydramine (Acetaminophen Pm Caplet), 2 TAB ORAL BEDTIME, ( Reported) Folic Acid* (Folic Acid*), 1 MG ORAL DAILY Gabapentin* (Gabapentin*), 350 MG ORAL THREE TIMES A DAY, (Reported) Hydromorphone HCl (Dilaudid), 14 MG ORAL EVERY 4 HOURS, (Reported) Hydroxyurea* (Hydrea*), 500 MG PO BID Methadone Hcl* (Methadone*), 60 MG PO Q6HR, (Reported) Phenobarbital (Phenobarbital), 16.2 MG PO BID, (Reported) Scheduled PRN Diphenhydramine HCl (Benadryl), 50 MG PO Q4HR PRN for Itching, (Reported) Patient History History Provided By: Patient Healthcare decision maker N Resuscitation status Full Code Advanced Directive on File Past Medical/Surgical History Past Medical/Surgical History: (1) Seizure disorder (2) Interstitial lung disease (3) Acute deep vein thrombosis (DVT) of both lower extremities (4) Sickle cell crisis (5) Anemia (6) Sickle cell disease (7) severe diastolic heart disease (8) Pulmonary HTN Physical Exam Last 24 Hour Vital Signs Date Time Temp Pulse Resp B/P (MAP) Pulse Ox O2 Delivery O2 Flow Rate FiO2 06/17/18 12:00 97.9 85 14 116/79 (91) 99 06/17/18 09:00 Nasal Cannula 2.0 06/17/18 08:00 98.1 89 12 118/85 (96) 99 06/17/18 04:00 98.9 20 148/83 (104) 89 06/17/18 00:00 97.0 16 142/62 (88) 96 06/16/18 21:00 Nasal Cannula 2.0 06/16/18 20:00 98.0 18 109/84 (92) 97 06/16/18 17:26 Nasal Cannula 6.0 06/16/18 16:31 98.8 95 20 133/93 (106) 96 06/16/18 16:26 98.2 90 16 116/78 100 Nasal Cannula 4.0 98 06/16/18 16:02 98.2 06/16/18 15:44 98.2 90 16 116/78 100 Nasal Cannula 4.0 98 06/16/18 15:26 98.2 06/16/18 13:53 98.2 102 16 123/74 97 Nasal Cannula 4.0 98 06/16/18 13:37 105 16 Nasal Cannula 4.0 98 06/16/18 13:19 98.2 105 16 123/74 83 Room Air Intake and Output 06/16/18 06/17/18 19:00 07:00 Intake Total 390 ml 800 ml Output Total 900 ml 2400 ml Balance -510 ml -1600 ml Intake Oral 240 ml 800 ml IV Total 150 ml Output Urine Total 900 ml 2400 ml # Voids 1 3 # Bowel Movements 1 Laboratory Tests Test 06/16/18 13:50 06/16/18 15:10 06/17/18 05:00 White Blood Count 16.9 K/UL (4.8-10.8) H 20.5 K/UL (4.8-10.8) H Red Blood Count 2.60 M/UL (4.70-6.10) L 2.44 M/UL (4.70-6.10) L Hemoglobin 7.5 G/DL (14.2-18.0) L 7.2 G/DL (14.2-18.0) L Hematocrit 23.3 % (42.0-52.0) L 21.7 % (42.0-52.0) L Mean Corpuscular Volume 89 FL (80-99) 89 FL (80-99) Mean Corpuscular Hemoglobin 28.7 PG (27.0-31.0) 29.7 PG (27.0-31.0) Mean Corpuscular Hemoglobin Concent 32.1 G/DL (32.0-36.0) 33.3 G/DL (32.0-36.0) Red Cell Distribution Width 15.9 % (11.6-14.8) H 16.3 % (11.6-14.8) H Platelet Count 348 K/UL (150-450) 302 K/UL (150-450) Mean Platelet Volume 7.6 FL (6.5-10.1) 7.4 FL (6.5-10.1) Neutrophils (%) (Auto) % (45.0-75.0) % (45.0-75.0) Lymphocytes (%) (Auto) % (20.0-45.0) % (20.0-45.0) Monocytes (%) (Auto) % (1.0-10.0) % (1.0-10.0) Eosinophils (%) (Auto) % (0.0-3.0) % (0.0-3.0) Basophils (%) (Auto) % (0.0-2.0) % (0.0-2.0) Differential Total Cells Counted 100 100 Neutrophils % (Manual) 51 % (45-75) 57 % (45-75) Lymphocytes % (Manual) 39 % (20-45) 24 % (20-45) Monocytes % (Manual) 2 % (1-10) 6 % (1-10) Eosinophils % (Manual) 7 % (0-3) H 13 % (0-3) H Basophils % (Manual) 1 % (0-2) 0 % (0-2) Band Neutrophils 0 % (0-8) 0 % (0-8) Platelet Estimate Adequate Adequate Platelet Morphology Normal Hypochromasia 3+ 2+ Anisocytosis 1+ 2+ Reticulocyte Count 1.1 % (0.0-2.0) Prothrombin Time 12.4 SEC (9.30-11.50) H Prothromb Time International Ratio 1.2 (0.9-1.1) H Activated Partial Thromboplast Time 33 SEC (23-33) Sodium Level 141 MMOL/L (136-145) 141 MMOL/L (136-145) Potassium Level 5.2 MMOL/L (3.5-5.1) H 5.4 MMOL/L (3.5-5.1) H Chloride Level 107 MMOL/L (98-107) 105 MMOL/L (98-107) Carbon Dioxide Level 32 MMOL/L (21-32) 33 MMOL/L (21-32) H Anion Gap 2 mmol/L (5-15) L 3 mmol/L (5-15) L Blood Urea Nitrogen 25 mg/dL (7-18) H 23 mg/dL (7-18) H Creatinine 0.9 MG/DL (0.55-1.30) 1.0 MG/DL (0.55-1.30) Estimat Glomerular Filtration Rate > 60 mL/min (>60) > 60 mL/min (>60) Glucose Level 98 MG/DL (74-106) 94 MG/DL (74-106) Uric Acid 4.1 MG/DL (2.6-7.2) Calcium Level 9.3 MG/DL (8.5-10.1) 9.3 MG/DL (8.5-10.1) Total Bilirubin 1.2 MG/DL (0.2-1.0) H 1.0 MG/DL (0.2-1.0) Direct Bilirubin 0.2 MG/DL (0.0-0.3) Aspartate Amino Transf (AST/SGOT) 41 U/L (15-37) H 35 U/L (15-37) Alanine Aminotransferase (ALT/SGPT) 53 U/L (12-78) 50 U/L (12-78) Alkaline Phosphatase 156 U/L (46-116) H 163 U/L (46-116) H Lactate Dehydrogenase 413 U/L (81-234) H 350 U/L (81-234) H Total Creatine Kinase 14 U/L (26-308) L Troponin I 0.003 ng/mL (0.000-0.056) Pro-B-Type Natriuretic Peptide 354 pg/mL (0-125) H Total Protein 6.8 G/DL (6.4-8.2) 6.5 G/DL (6.4-8.2) Albumin 3.5 G/DL (3.4-5.0) 3.3 G/DL (3.4-5.0) L Globulin 3.3 g/dL 3.2 g/dL Albumin/Globulin Ratio 1.1 (1.0-2.7) 1.0 (1.0-2.7) Urine Color Pale yellow Urine Appearance Clear Urine pH 5 (4.5-8.0) Urine Specific [place] 1.010 (1.005-1.035) Urine Protein 3+ (NEGATIVE) H Urine Glucose (UA) Negative (NEGATIVE) Urine Ketones Negative (NEGATIVE) Urine Blood 1+ (NEGATIVE) H Urine Nitrite Negative (NEGATIVE) Urine Bilirubin Negative (NEGATIVE) Urine Urobilinogen Normal MG/DL (0.0-1.0) Urine Leukocyte Esterase Negative (NEGATIVE) Urine RBC 2-4 /HPF (0 - 0) H Urine WBC 0-2 /HPF (0 - 0) Urine Squamous Epithelial Cells None /LPF (NONE/OCC) Urine Bacteria Few /HPF (NONE) Urine Opiates Screen Positive (NEGATIVE) H Urine Barbiturates Screen Negative (NEGATIVE) Phencyclidine (PCP) Screen Negative (NEGATIVE) Urine Amphetamines Screen Negative (NEGATIVE) Urine Benzodiazepines Screen Negative (NEGATIVE) Urine Cocaine Screen Negative (NEGATIVE) Urine Marijuana (THC) Screen Negative (NEGATIVE) Nucleated Red Blood Cells /100 WBC Giant Platelets 1+ Height (Feet): 5 Height (Inches): 11.00 Weight (Pounds): 157 Medications Current Medications Medications (Trade) Dose Ordered Sig/Anthony Route PRN Reason Start Time Stop Time Status Last Admin Dose Admin Acetaminophen (Tylenol) 650 mg Q4H PRN ORAL fever 06/16/18 16:01 07/16/18 16:00 Al Hydroxide/Mg Hydroxide (Mylanta II) 30 ml Q6H PRN ORAL dyspepsia 06/16/18 16:00 07/16/18 15:59 Dextrose (Dextrose 50%) 25 ml Q30M PRN IV Hypoglycemia 06/16/18 16:15 07/16/18 16:02 Dextrose (Dextrose 50%) 50 ml Q30M PRN IV hypoglycemia 06/16/18 16:15 07/16/18 16:14 Diphenhydramine HCl (Benadryl) 50 mg Q4H PRN IVP Itching 06/16/18 18:15 07/16/18 18:14 06/17/18 09:31 Heparin Sodium (Porcine) (Heparin 5000 units/ml) 5,000 units EVERY 12 HOURS SUBQ 06/16/18 21:00 07/16/18 20:59 Hydromorphone HCl (Dilaudid) 2 mg Q4H PRN IVP For Pain 06/16/18 18:15 06/23/18 18:14 06/17/18 09:32 Lorazepam (Ativan 2mg/ml 1ml) 0.5 mg Q4H PRN IV For Anxiety 06/16/18 16:00 06/23/18 15:59 Methadone HCl (Methadone HCl) 60 mg EVERY 6 HOURS ORAL 06/17/18 00:00 06/24/18 00:00 06/17/18 12:12 Ondansetron HCl (Zofran) 4 mg Q6H PRN IVP Nausea & Vomiting 06/16/18 16:00 07/16/18 15:59 Polyethylene Glycol (Miralax) 17 gm HSPRN PRN ORAL Constipation 06/16/18 16:00 07/16/18 15:59 Sodium Chloride 1,000 ml @ 75 mls/hr [id number] IV 06/16/18 16:02 07/16/18 16:01 06/17/18 05:33 Zolpidem Tartrate (Ambien) 5 mg HSPRN PRN ORAL Insomnia 06/16/18 16:00 06/23/18 15:59 Assessment/Plan Assessment/Plan ASSESSMENT Sickle cell crisis Anemia of sickle cell disease Chronic hypoxemic respiratory failure ,requiring home O2 Asthma/COPD Congestive heart failure with diastolic dysfunction Severe pulmonary hypertension Hypertension Seizure disorder Avascular necrosis bilateral hip Hx of DVT BLE PLAN of CARE MS floor O2 titrate to keep pulse ox above 92% pulmonary toilet prn f/up with CXR generous IV fluids DVT prophylaxis venous duplex BLE pain management as per pain specialist recommendations Last echo ( 2016) with pEF and evidence of severe pulmonary hypertension recheck ECHO close monitoring of BP seizure precaution , continue phenobarbital , check level bowel regimen supportive care case discussed and evaluated by supervising physician Mikayla Camara NP Jun 17, 2018 12:42
[2018-06-17] MEDS ORDERED: Albuterol/Ipratropium 3ml neb HHN PRN (13:09)
--- NOTE | 2018-06-17 13:24 | History & Physical ---
History and Physical History & Physicial Dictated for Int Med-Dr Zarate no. [id number]. Mehdi Rosales MD Jun 17, 2018 13:24
--- NOTE | 2018-06-17 13:49 | Consultation ---
Consult Note Consult Note HEME/ONC CONSULTATION REFERRING MD: Wan Zarate REASON FOR CONSULT: Sickle cell crisis DATE OF CONSULT: 06/17/2018 HPI 42 y/old male with history of sickle cell disease with pain crises, history of DVT bilateral lower extremity, COPD/asthma, hypertension, diastolic CHF, severe pulmonary HTN, seizure disorder, anemia, substance-abuse, presented to emergency department with generalized body pain along with lower back , bilateral hip and and left knee. Patient is chronically oxygen dependent at home. Hematology services have been consulted for the evaluation of sickle cell crisis and anemia. Labs and imaging have been reviewed. Pt is known to me and has been seen several times this year for the same chronic medical issues. Allergies: Coded Allergies: PENTAMIDINE ISETHIONATE (Verified Allergy, Severe, palpitations, 08/27/17) AMPICILLIN (Verified Allergy, Unknown, hives, 01/05/18) Tolerated CEftriaxone 01/02/18 KETOROLAC (Verified Allergy, Unknown, 08/03/16) MORPHINE (Verified Allergy, Unknown, 08/03/16) PHENYTOIN (Verified Allergy, Unknown, 08/03/16) Medication History Scheduled Acetaminophen/Diphenhydramine (Acetaminophen Pm Caplet), 2 TAB ORAL BEDTIME, ( Reported) Folic Acid* (Folic Acid*), 1 MG ORAL DAILY Gabapentin* (Gabapentin*), 350 MG ORAL THREE TIMES A DAY, (Reported) Hydromorphone HCl (Dilaudid), 14 MG ORAL EVERY 4 HOURS, (Reported) Hydroxyurea* (Hydrea*), 500 MG PO BID Methadone Hcl* (Methadone*), 60 MG PO Q6HR, (Reported) Phenobarbital (Phenobarbital), 16.2 MG PO BID, (Reported) Scheduled PRN Diphenhydramine HCl (Benadryl), 50 MG PO Q4HR PRN for Itching, (Reported) Patient History History Provided By: Patient Healthcare decision maker N Resuscitation status Full Code Advanced Directive on File Past Medical/Surgical History Past Medical/Surgical History: (1) Seizure disorder (2) Interstitial lung disease (3) Acute deep vein thrombosis (DVT) of both lower extremities (4) Sickle cell crisis (5) Anemia (6) Sickle cell disease (7) severe diastolic heart disease (8) Pulmonary HTN Physical Exam Laboratory Tests Test 06/16/18 13:50 06/16/18 15:10 06/17/18 05:00 White Blood Count 16.9 K/UL (4.8-10.8) H 20.5 K/UL (4.8-10.8) H Red Blood Count 2.60 M/UL (4.70-6.10) L 2.44 M/UL (4.70-6.10) L Hemoglobin 7.5 G/DL (14.2-18.0) L 7.2 G/DL (14.2-18.0) L Hematocrit 23.3 % (42.0-52.0) L 21.7 % (42.0-52.0) L Mean Corpuscular Volume 89 FL (80-99) 89 FL (80-99) Mean Corpuscular Hemoglobin 28.7 PG (27.0-31.0) 29.7 PG (27.0-31.0) Mean Corpuscular Hemoglobin Concent 32.1 G/DL (32.0-36.0) 33.3 G/DL (32.0-36.0) Red Cell Distribution Width 15.9 % (11.6-14.8) H 16.3 % (11.6-14.8) H Platelet Count 348 K/UL (150-450) 302 K/UL (150-450) Mean Platelet Volume 7.6 FL (6.5-10.1) 7.4 FL (6.5-10.1) Neutrophils (%) (Auto) % (45.0-75.0) % (45.0-75.0) Lymphocytes (%) (Auto) % (20.0-45.0) % (20.0-45.0) Monocytes (%) (Auto) % (1.0-10.0) % (1.0-10.0) Eosinophils (%) (Auto) % (0.0-3.0) % (0.0-3.0) Basophils (%) (Auto) % (0.0-2.0) % (0.0-2.0) Differential Total Cells Counted 100 100 Neutrophils % (Manual) 51 % (45-75) 57 % (45-75) Lymphocytes % (Manual) 39 % (20-45) 24 % (20-45) Monocytes % (Manual) 2 % (1-10) 6 % (1-10) Eosinophils % (Manual) 7 % (0-3) H 13 % (0-3) H Basophils % (Manual) 1 % (0-2) 0 % (0-2) Band Neutrophils 0 % (0-8) 0 % (0-8) Platelet Estimate Adequate Adequate Platelet Morphology Normal Hypochromasia 3+ 2+ Anisocytosis 1+ 2+ Reticulocyte Count 1.1 % (0.0-2.0) Prothrombin Time 12.4 SEC (9.30-11.50) H Prothromb Time International Ratio 1.2 (0.9-1.1) H Activated Partial Thromboplast Time 33 SEC (23-33) Sodium Level 141 MMOL/L (136-145) 141 MMOL/L (136-145) Potassium Level 5.2 MMOL/L (3.5-5.1) H 5.4 MMOL/L (3.5-5.1) H Chloride Level 107 MMOL/L (98-107) 105 MMOL/L (98-107) Carbon Dioxide Level 32 MMOL/L (21-32) 33 MMOL/L (21-32) H Anion Gap 2 mmol/L (5-15) L 3 mmol/L (5-15) L Blood Urea Nitrogen 25 mg/dL (7-18) H 23 mg/dL (7-18) H Creatinine 0.9 MG/DL (0.55-1.30) 1.0 MG/DL (0.55-1.30) Estimat Glomerular Filtration Rate > 60 mL/min (>60) > 60 mL/min (>60) Glucose Level 98 MG/DL (74-106) 94 MG/DL (74-106) Uric Acid 4.1 MG/DL (2.6-7.2) Calcium Level 9.3 MG/DL (8.5-10.1) 9.3 MG/DL (8.5-10.1) Total Bilirubin 1.2 MG/DL (0.2-1.0) H 1.0 MG/DL (0.2-1.0) Direct Bilirubin 0.2 MG/DL (0.0-0.3) Aspartate Amino Transf (AST/SGOT) 41 U/L (15-37) H 35 U/L (15-37) Alanine Aminotransferase (ALT/SGPT) 53 U/L (12-78) 50 U/L (12-78) Alkaline Phosphatase 156 U/L (46-116) H 163 U/L (46-116) H Lactate Dehydrogenase 413 U/L (81-234) H 350 U/L (81-234) H Total Creatine Kinase 14 U/L (26-308) L Troponin I 0.003 ng/mL (0.000-0.056) Pro-B-Type Natriuretic Peptide 354 pg/mL (0-125) H Total Protein 6.8 G/DL (6.4-8.2) 6.5 G/DL (6.4-8.2) Albumin 3.5 G/DL (3.4-5.0) 3.3 G/DL (3.4-5.0) L Globulin 3.3 g/dL 3.2 g/dL Albumin/Globulin Ratio 1.1 (1.0-2.7) 1.0 (1.0-2.7) Urine Color Pale yellow Urine Appearance Clear Urine pH 5 (4.5-8.0) Urine Specific [place] 1.010 (1.005-1.035) Urine Protein 3+ (NEGATIVE) H Urine Glucose (UA) Negative (NEGATIVE) Urine Ketones Negative (NEGATIVE) Urine Blood 1+ (NEGATIVE) H Urine Nitrite Negative (NEGATIVE) Urine Bilirubin Negative (NEGATIVE) Urine Urobilinogen Normal MG/DL (0.0-1.0) Urine Leukocyte Esterase Negative (NEGATIVE) Urine RBC 2-4 /HPF (0 - 0) H Urine WBC 0-2 /HPF (0 - 0) Urine Squamous Epithelial Cells None /LPF (NONE/OCC) Urine Bacteria Few /HPF (NONE) Urine Opiates Screen Positive (NEGATIVE) H Urine Barbiturates Screen Negative (NEGATIVE) Phencyclidine (PCP) Screen Negative (NEGATIVE) Urine Amphetamines Screen Negative (NEGATIVE) Urine Benzodiazepines Screen Negative (NEGATIVE) Urine Cocaine Screen Negative (NEGATIVE) Urine Marijuana (THC) Screen Negative (NEGATIVE) Nucleated Red Blood Cells /100 WBC Giant Platelets 1+ Last 24 Hour Vital Signs Date Time Temp Pulse Resp B/P (MAP) Pulse Ox O2 Delivery O2 Flow Rate FiO2 06/17/18 12:00 97.9 85 14 116/79 (91) 99 06/17/18 09:00 Nasal Cannula 2.0 06/17/18 08:00 98.1 89 12 118/85 (96) 99 06/17/18 04:00 98.9 20 148/83 (104) 89 06/17/18 00:00 97.0 16 142/62 (88) 96 06/16/18 21:00 Nasal Cannula 2.0 06/16/18 20:00 98.0 18 109/84 (92) 97 06/16/18 17:26 Nasal Cannula 6.0 06/16/18 16:31 98.8 95 20 133/93 (106) 96 06/16/18 16:26 98.2 90 16 116/78 100 Nasal Cannula 4.0 98 06/16/18 16:02 98.2 06/16/18 15:44 98.2 90 16 116/78 100 Nasal Cannula 4.0 98 06/16/18 15:26 98.2 06/16/18 13:53 98.2 102 16 123/74 97 Nasal Cannula 4.0 98 Current Medications Medications (Trade) Dose Ordered Sig/Anthony Route PRN Reason Start Time Stop Time Status Last Admin Dose Admin Acetaminophen (Tylenol) 650 mg Q4H PRN ORAL fever 06/16/18 16:01 07/16/18 16:00 Al Hydroxide/Mg Hydroxide (Mylanta II) 30 ml Q6H PRN ORAL dyspepsia 06/16/18 16:00 07/16/18 15:59 Albuterol/ Ipratropium (Albuterol/ Ipratropium) 3 ml Q4H PRN HHN Shortness of Breath 06/17/18 13:09 06/22/18 13:08 Dextrose (Dextrose 50%) 25 ml Q30M PRN IV Hypoglycemia 06/16/18 16:15 07/16/18 16:02 Dextrose (Dextrose 50%) 50 ml Q30M PRN IV hypoglycemia 06/16/18 16:15 07/16/18 16:14 Diphenhydramine HCl (Benadryl) 50 mg Q4H PRN IVP Itching 06/16/18 18:15 07/16/18 18:14 06/17/18 13:35 Folic Acid (Folate) 1 mg DAILY ORAL 06/18/18 09:00 07/18/18 08:59 Heparin Sodium (Porcine) (Heparin 5000 units/ml) 5,000 units EVERY 12 HOURS SUBQ 06/16/18 21:00 07/16/18 20:59 Hydromorphone HCl (Dilaudid) 2 mg Q4H PRN IVP For Pain 06/16/18 18:15 06/23/18 18:14 06/17/18 13:35 Hydroxyurea (Hydrea) 500 mg BID ORAL 06/17/18 18:00 06/22/18 17:59 Lorazepam (Ativan 2mg/ml 1ml) 0.5 mg Q4H PRN IV For Anxiety 06/16/18 16:00 06/23/18 15:59 Methadone HCl (Methadone HCl) 60 mg EVERY 6 HOURS ORAL 06/17/18 00:00 06/24/18 00:00 06/17/18 12:12 Ondansetron HCl (Zofran) 4 mg Q6H PRN IVP Nausea & Vomiting 06/16/18 16:00 07/16/18 15:59 Phenobarbital (PHENobarbital) 16.2 mg BID ORAL 06/17/18 18:00 07/17/18 17:59 Polyethylene Glycol (Miralax) 17 gm HSPRN PRN ORAL Constipation 06/16/18 16:00 07/16/18 15:59 Sodium Chloride 1,000 ml @ 75 mls/hr [id number] IV 06/16/18 16:02 07/16/18 16:01 06/17/18 05:33 Zolpidem Tartrate (Ambien) 5 mg HSPRN PRN ORAL Insomnia 06/16/18 16:00 06/23/18 15:59 ASSESSMENT AND RECOMMENDATIONS #. Sickle cell crisis. The patient has been admitted multiple times in the past for similar symptoms, also with hx of stroke and complications --> continue hydroxyurea same dose as outpatient, po meds --> retic and ldh daily --> ivf and pain control, incentive spirometer --> Cont po folic acid daily #. Leukocytosis. The patient has a sickle cell crisis which is other cause. --> Closely monitor for improvement --> use hydroxyurea fluids as needed. Morphine. #. Transaminitis, related to iron overload in the past. #. Noncompliance history, the patient has been admitted multiple times before and at this time recommend the patient to seek Oncology/Hematology followup. #. Chronic obstructive pulmonary disease history. Pain management and respiratory management. #. Diastolic heart failure. GREATLY APPRECIATE CONSULTATION. Marco Dutton MD Jun 17, 2018 13:49
[2018-06-17 15:41] VITALS: BP 113/71
[2018-06-17] MEDS: Hydroxyurea 500mg cap ORAL SCH (18:02)
[2018-06-17] MEDS: PHENobarbital 32.4mg tab ORAL SCH (18:02)
--- NOTE | 2018-06-17 18:15 | History and Physical Report ---
DATE OF ADMISSION: 06/16/2018 CHIEF COMPLAINT: The patient is a 42-year-old male with history of sickle cell disease who presents with chief complaint of generalized pain, sickle cell crisis." PATIENT HISTORY OF PRESENT ILLNESS: The patient has a history of sickle cell disease. The patient was last admitted to [facility] in December 2017. The patient states current history of present illness began three days prior to admission. The patient began to experience pain in his low back. Pain is also in his right side. Pain is also in the bilateral lower extremities. The patient presented to [facility] emergency room. The patient was admitted for sickle cell crisis and generalized pain. REVIEW OF SYSTEMS: CONSTITUTIONAL: The patient denies weight loss or weight gain. The patient denies fevers or chills. HEENT: The patient denies ear or throat pain. The patient denies headache. CARDIOVASCULAR: The patient denies palpitations or chest pain. CHEST: The patient denies wheeze or shortness of breath. ABDOMINAL: The patient complains of right flank pain as above. The patient denies nausea, vomiting, diarrhea, or constipation. GENITOURINARY: The patient denies dysuria or increased frequency of urination. NEUROMUSCULAR: The patient complains of generalized pain, especially in the bilateral knees and hips. PAST MEDICAL HISTORY: Significant for: 1. Sickle cell disease. 2. History of seizure disorder. 3. Avascular necrosis of the bilateral hips. 4. Avascular necrosis of bilateral knees. PAST SURGICAL HISTORY: Significant for: 1. Tonsillectomy and adenoidectomy. 2. Left tibia-fibula fracture. 3. Open reduction and internal fixation of left tibia-fibula fracture. 4. Pneumothorax. CURRENT MEDICATIONS: 1. Folic acid 1 mg p.o. daily. 2. Gabapentin 300 mg p.o. three times daily. 3. Dilaudid 4 mg tablet one tablet p.o. q.4 hours. 4. Hydroxyurea 500 mg p.o. twice daily. 5. Methadone 60 mg p.o. q.6 hours. 6. Phenobarbital 16.2 mg p.o. twice daily. ALLERGIES: 1. Ampicillin. 2. Penicillin. 3. Ketorolac. 4. Morphine. 5. Dilantin 6. Pentamidine. SOCIAL HISTORY: The patient lives with his girlfriend and children. The patient is disabled. The patient denies tobacco or alcohol use. PHYSICAL EXAMINATION: VITAL SIGNS: Temperature 97, respirations 16, pulse 89, blood pressure 142/62. GENERAL: The patient is well-developed and well-nourished male, who is in moderate pain. HEENT: Eyes, pupils are equal and responsive to light and accommodation. Extraocular movements are intact. NECK: Supple without lymphadenopathy. CHEST: Lungs are clear to auscultation bilaterally without wheezes or rales. CARDIOVASCULAR: Regular rhythm and rate. S1 and S2 normal without murmurs, rubs, gallops. ABDOMEN: Soft, nontender, nondistended. Positive bowel sounds. No evidence of hepatosplenomegaly. Currently, no rebound or guarding. EXTREMITIES: Negative for clubbing, cyanosis, or edema. RECTAL/GENITAL: Refused. NEUROLOGICAL: Cranial nerves II through XII are grossly intact without focal deficits. Motor strength is 5/5 bilaterally. Deep tendon reflexes are 2+ plantar. LABORATORY AND DIAGNOSTIC DATA: Chest x-ray showed chronic interstitial pulmonary disease with a left mid lung opacity. Laboratory Studies, WBC 16.9, hemoglobin 7.5 hematocrit 23.3, platelets 348,000. Sodium 141, potassium 5.2, chloride 107, CO2 32, BUN 25, creatinine 0.9, glucose 98. Urinalysis showed 3+ protein, 1+ blood with 2 to 4 rbc's. Urine toxicology was positive for opiates and marijuana. Urine drug screen was positive for opiates. ASSESSMENT: This is a 42-year-old male. 1. Generalized pain. 2. Sickle cell disease. 3. Sickle cell anemia. 4. Pulmonary hypertension. 5. Seizure disorder. 6. Avascular necrosis of bilateral hips. 7. Avascular necrosis of bilateral knees. TREATMENT: 1. Generalized pain. A pain management consultation obtained with Dr. ePrera. We will follow recommendations of pain management. Pain is secondary to sickle cell crisis. 2. Sickle cell disease/sickle cell anemia. A Hematology/Oncology consultation with Dr. Dutton. Transfusions are normally not recommended in sickle cell anemia. We will follow recommendations of Hematology/Oncology. 3. Pulmonary hypertension. A Pulmonary consultation obtained with Dr. Hanna Mckenna. 4. Seizure disorder. Continue phenobarbital as above. 5. Avascular necrosis of bilateral hips. 6. Avascular necrosis of the bilateral knees. Mehdi Solis Rosales DR: Mariaa JOB#: [id number] CC:
[2018-06-17 20:00] VITALS: BP 110/78
[2018-06-18] VITALS: BP 121/79
[2018-06-18] MEDS: DiphenhydrAMINE 50mg/ml Inj IVP PRN ×3 (02:27→10:41)
[2018-06-18 04:05] VITALS: BP 140/74
[2018-06-18 07:41] LABS: HEMATOCRIT 20.8 % (42.0-52.0); HEMOGLOBIN 7.1 G/DL (14.2-18.0); MEAN CORPUSCULAR VOLUME 87 FL (80-99); PLATELET COUNT 351 K/UL (150-450); RED BLOOD COUNT 2.38 M/UL (4.70-6.10); RED CELL DISTRIBUTION WIDTH 15.6 % (11.6-14.8); WHITE BLOOD COUNT 20.4 K/UL (4.8-10.8)
[2018-06-18 07:49] LABS: ALANINE AMINOTRANSFERASE 49 U/L (12-78); ALBUMIN 3.4 G/DL (3.4-5.0); ALKALINE PHOSPHATASE 161 U/L (46-116); ANION GAP 2 mmol/L (5-15); ASPARTATE AMINO TRANSFERASE 36 U/L (15-37); BILIRUBIN,TOTAL 0.9 MG/DL (0.2-1.0); BLOOD UREA NITROGEN 22 mg/dL (7-18); CALCIUM 9.3 MG/DL (8.5-10.1); CARBON DIOXIDE 34 MMOL/L (21-32); CHLORIDE 105 MMOL/L (98-107); CREATININE 0.8 MG/DL (0.55-1.30); LACTATE DEHYDROGENASE 339 U/L (81-234); SODIUM 140 MMOL/L (136-145)
[2018-06-18 08:00] VITALS: BP 135/77
--- NOTE | 2018-06-18 08:48 | General Progress Note ---
Assessment/Plan Assessment/Plan (1) Intractable pain (2) Avascular necrosis of femur head, left (3) Sickle cell disease and crisis (4) Avascular necrosis of femur head, right Patient will be continued on methadone and Dilaudid as needed. Pt was d/w Dr. Perera and he concurred. Subjective Date patient seen: Jun 18, 2018 Time patient seen: 07:00 - am Allergies: Coded Allergies: PENTAMIDINE ISETHIONATE (Verified Allergy, Severe, palpitations, 08/27/17) AMPICILLIN (Verified Allergy, Unknown, hives, 01/05/18) Tolerated CEftriaxone 01/02/18 KETOROLAC (Verified Allergy, Unknown, 08/03/16) MORPHINE (Verified Allergy, Unknown, 08/03/16) PHENYTOIN (Verified Allergy, Unknown, 08/03/16) Subjective Constitutional: Reports: chills HEENT: Denies: blurred vision, double vision, ear discharge, ear pain, eye pain , mouth pain, mouth swelling, nose congestion, nose pain, tearing, throat pain, throat swelling Cardiovascular: Denies: chest pain, edema, irregular heart rate, lightheadedness, palpitations, syncope Respiratory: Denies: SOB at rest, SOB with excertion, cough, orthopnea, shortness of breath, sputum, stridor, wheezing Gastrointestinal/Abdominal: Denies: abdomen distended, abdominal pain, black stools, blood in stool, constipated, diarrhea, difficulty swallowing, nausea, poor appetite, poor fluid intake, rectal bleeding, tarry stools, vomiting Genitourinary: Denies: burning, discharge, flank pain, frequency, hematuria, incontinence, pain, urgency 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: Denies: anxiety, depressed, emotional problems, headache, numbness, paresthesia, pre-existing deficit, seizure, tingling, tremors, weakness Endocrine: Reports: other, Denies: excessive sweating, flushing, increased hunger, increased thirst, increased urine, intolerance to cold, intolerance to heat, unexplained weight gain, unexplained weight loss Hematologic/Lymphatic: Denies: anemia, easy bleeding, easy bruising Subjective Patient continued to c/o pain which has been severe but is being tolerated well on the Methadone scheduled and Dilaudid which he has requested 6 doses of in the last 24hrs. He has no new complaints. Objective Last 24 Hour Vital Signs Date Time Temp Pulse Resp B/P (MAP) Pulse Ox O2 Delivery O2 Flow Rate FiO2 06/18/18 04:05 97.6 90 20 140/74 (96) 98 06/18/18 00:00 97.7 77 20 121/79 (93) 06/17/18 21:00 Room Air 06/17/18 20:13 87 18 Room Air 21 06/17/18 20:00 97.8 98 20 110/78 (89) 98 06/17/18 15:41 97.5 82 14 113/71 (85) 100 06/17/18 12:00 97.9 85 14 116/79 (91) 99 06/17/18 09:00 Nasal Cannula 2.0 Intake and Output 06/17/18 06/18/18 19:00 07:00 Intake Total 995 ml 825 ml Output Total 850 ml 2000 ml Balance 145 ml -1175 ml Intake Oral 920 ml IV Total 75 ml 825 ml Output Urine Total 850 ml 2000 ml # Voids 1 3 # Bowel Movements 1 Laboratory Tests 06/18/18 06:04: White Blood Count 20.4H, Red Blood Count 2.38L, Hemoglobin 7.1L, Hematocrit 20.8L, Mean Corpuscular Volume 87, Mean Corpuscular Hemoglobin 30.0, Mean Corpuscular Hemoglobin Concent 34.4, Red Cell Distribution Width 15.6H, Platelet Count 351, Mean Platelet Volume 7.7, Neutrophils (%) (Auto) , Lymphocytes (%) (Auto) , Monocytes (%) (Auto) , Eosinophils (%) (Auto) , Basophils (%) (Auto) , Differential Total Cells Counted 100, Neutrophils % ( Manual) 47, Lymphocytes % (Manual) 40, Monocytes % (Manual) 3, Eosinophils % ( Manual) 10H, Basophils % (Manual) 0, Band Neutrophils 0, Platelet Estimate Adequate, Platelet Morphology Normal, Polychromasia 1+, Hypochromasia 3+, Poikilocytosis 1+, Anisocytosis 2+, Spherocytes 2+, Sodium Level 140, Potassium Level 5.0, Chloride Level 105, Carbon Dioxide Level 34H, Anion Gap 2L, Blood Urea Nitrogen 22H, Creatinine 0.8, Estimat Glomerular Filtration Rate > 60, Glucose Level 104, Calcium Level 9.3, Total Bilirubin 0.9, Aspartate Amino Transf (AST/SGOT) 36, Alanine Aminotransferase (ALT/SGPT) 49, Alkaline Phosphatase 161H, Lactate Dehydrogenase 339H, Total Protein 6.7, Albumin 3.4, Globulin 3.3, Albumin/Globulin Ratio 1.0, Phenobarbital Level < 1.0L Height (Feet): 5 Height (Inches): 11.00 Weight (Pounds): 157 Objective General Appearance: no apparent distress, alert EENT: PERRL/EOMI, normal ENT inspection Neck: non-tender, normal alignment Cardiovascular: normal rate, regular rhythm Respiratory/Chest: decreased breath sounds Abdomen: non tender, soft Edema: no edema noted Neurologic: alert, oriented x 3 Skin: warm/dry Cj Anderson Jun 18, 2018 08:48
[2018-06-18] MEDS: Hydroxyurea 500mg cap ORAL SCH (09:08)
[2018-06-18] MEDS: PHENobarbital 32.4mg tab ORAL SCH (09:08)
[2018-06-18] MEDS: Heparin 5000 units/ml inj SUBQ SCH (09:09)
--- NOTE | 2018-06-18 13:25 | Cardiology Report ---
APPROVED REPORT EXAM: Two-dimensional and M-mode echocardiogram with Doppler and color Doppler. INDICATION S.O.B M-Mode DIMENSIONS IVSd1.1 (0.7-1.1cm)Left Atrium (MM)2.8 (1.6-4.0cm) LVDd4.9 (3.5-5.6cm)Aortic Root4.3 (2.0-3.7cm) PWd1.4 (0.7-1.1cm)Aortic Cusp Exc.2.0 (1.5-2.0cm) IVSs1.6 cm LVDs3.0 (2.5-4.0cm) PWs1.6 cm Normal left ventricular chamber size, systolic function and wall motion. Left ventricular ejection fraction estimated to be 65-70 %. No evidence of left ventricular hypertrophy. Trivial pericardial effusion. Mild left atrial enlargment . Right cardiac chamber sizes are within normal limits. Focal aortic valve sclerosis with adequate cusp excursion. Thickened mitral valve leaflets with normal excursion. Mitral annulus and aortic root calcification. Normal pulmonic valve structure. Normal tricuspid valve structure. IVC at normal size with physiologic collapse. A color flow and spectral Doppler study was performed and revealed: No aortic regurgitation. Trace mitral regurgitation. Mitral diastolic velocities suggest reduced left ventricular relaxation c/w mild LV diastolic dysfunction (Grade I ). Moderate tricuspid regurgitation. Tricuspid systolic velocities suggests peak right ventricular systolic pressure of 74 mmHg, consistent with severe pulmonary hypertension.
--- NOTE | 2018-06-18 13:28 | General Progress Note ---
Assessment/Plan Status: stable Assessment/Plan #. Sickle cell crisis. The patient has been admitted multiple times in the past for similar symptoms, also with hx of stroke and complications --> continue hydroxyurea same dose as outpatient, po meds --> retic and ldh daily --> ivf and pain control, incentive spirometer --> Cont po folic acid daily #. Leukocytosis. The patient has a sickle cell crisis which is other cause. --> Closely monitor for improvement --> use hydroxyurea fluids as needed. Morphine. #. Transaminitis, related to iron overload in the past. #. Noncompliance history, the patient has been admitted multiple times before and at this time recommend the patient to seek Oncology/Hematology followup. #. Chronic obstructive pulmonary disease history. Pain management and respiratory management. #. Diastolic heart failure. GREATLY APPRECIATE CONSULTATION. Subjective Date patient seen: Jun 18, 2018 Hematologic/Lymphatic: Reports: anemia Allergies: Coded Allergies: PENTAMIDINE ISETHIONATE (Verified Allergy, Severe, palpitations, 08/27/17) AMPICILLIN (Verified Allergy, Unknown, hives, 01/05/18) Tolerated CEftriaxone 01/02/18 KETOROLAC (Verified Allergy, Unknown, 08/03/16) MORPHINE (Verified Allergy, Unknown, 08/03/16) PHENYTOIN (Verified Allergy, Unknown, 08/03/16) All Systems: reviewed and negative except above Subjective Pt awake and alert. No acute events. Pt in stable condition. DC planning. Objective Last 24 Hour Vital Signs Date Time Temp Pulse Resp B/P (MAP) Pulse Ox O2 Delivery O2 Flow Rate FiO2 06/18/18 08:00 98.0 89 20 135/77 (96) 06/18/18 04:05 97.6 90 20 140/74 (96) 98 06/18/18 00:00 97.7 77 20 121/79 (93) 06/17/18 21:00 Room Air 06/17/18 20:13 87 18 Room Air 21 06/17/18 20:00 97.8 98 20 110/78 (89) 98 06/17/18 15:41 97.5 82 14 113/71 (85) 100 Intake and Output 06/17/18 06/18/18 19:00 07:00 Intake Total 995 ml 825 ml Output Total 850 ml 2000 ml Balance 145 ml -1175 ml Intake Oral 920 ml IV Total 75 ml 825 ml Output Urine Total 850 ml 2000 ml # Voids 1 3 # Bowel Movements 1 Laboratory Tests 06/18/18 06:04: White Blood Count 20.4H, Red Blood Count 2.38L, Hemoglobin 7.1L, Hematocrit 20.8L, Mean Corpuscular Volume 87, Mean Corpuscular Hemoglobin 30.0, Mean Corpuscular Hemoglobin Concent 34.4, Red Cell Distribution Width 15.6H, Platelet Count 351, Mean Platelet Volume 7.7, Neutrophils (%) (Auto) , Lymphocytes (%) (Auto) , Monocytes (%) (Auto) , Eosinophils (%) (Auto) , Basophils (%) (Auto) , Differential Total Cells Counted 100, Neutrophils % ( Manual) 47, Lymphocytes % (Manual) 40, Monocytes % (Manual) 3, Eosinophils % ( Manual) 10H, Basophils % (Manual) 0, Band Neutrophils 0, Platelet Estimate Adequate, Platelet Morphology Normal, Polychromasia 1+, Hypochromasia 3+, Poikilocytosis 1+, Anisocytosis 2+, Spherocytes 2+, Sodium Level 140, Potassium Level 5.0, Chloride Level 105, Carbon Dioxide Level 34H, Anion Gap 2L, Blood Urea Nitrogen 22H, Creatinine 0.8, Estimat Glomerular Filtration Rate > 60, Glucose Level 104, Calcium Level 9.3, Total Bilirubin 0.9, Aspartate Amino Transf (AST/SGOT) 36, Alanine Aminotransferase (ALT/SGPT) 49, Alkaline Phosphatase 161H, Lactate Dehydrogenase 339H, Total Protein 6.7, Albumin 3.4, Globulin 3.3, Albumin/Globulin Ratio 1.0, Phenobarbital Level < 1.0L Height (Feet): 5 Height (Inches): 11.00 Weight (Pounds): 157 General Appearance: no apparent distress, alert Marco Dutton MD Jun 18, 2018 13:28
--- NOTE | 2018-06-18 21:40 | Consultation ---
History of Present Illness General Chief Complaint: General Complaint Referring physician: dr Zarate Reason for Consultation: chronic hypoxemia, asthma Present Illness Allergies: Coded Allergies: PENTAMIDINE ISETHIONATE (Verified Allergy, Severe, palpitations, 08/27/17) AMPICILLIN (Verified Allergy, Unknown, hives, 01/05/18) Tolerated CEftriaxone 01/02/18 KETOROLAC (Verified Allergy, Unknown, 08/03/16) MORPHINE (Verified Allergy, Unknown, 08/03/16) PHENYTOIN (Verified Allergy, Unknown, 08/03/16) Medication History Scheduled Acetaminophen/Diphenhydramine (Acetaminophen Pm Caplet), 2 TAB ORAL BEDTIME, ( Reported) Folic Acid* (Folic Acid*), 1 MG ORAL DAILY Gabapentin* (Gabapentin*), 350 MG ORAL THREE TIMES A DAY, (Reported) Hydromorphone HCl (Dilaudid), 14 MG ORAL EVERY 4 HOURS, (Reported) Hydroxyurea* (Hydrea*), 500 MG PO BID Methadone Hcl* (Methadone*), 60 MG PO Q6HR, (Reported) Phenobarbital (Phenobarbital), 16.2 MG PO BID, (Reported) Scheduled PRN Diphenhydramine HCl (Benadryl), 50 MG PO Q4HR PRN for Itching, (Reported) Patient History Healthcare decision maker N Resuscitation status Full Code Advanced Directive on File Physical Exam Last 24 Hour Vital Signs Date Time Temp Pulse Resp B/P (MAP) Pulse Ox O2 Delivery O2 Flow Rate FiO2 06/18/18 08:00 98.0 89 20 135/77 (96) 06/18/18 04:05 97.6 90 20 140/74 (96) 98 06/18/18 00:00 97.7 77 20 121/79 (93) Intake and Output 06/17/18 06/18/18 19:00 07:00 Intake Total 995 ml 825 ml Output Total 850 ml 2000 ml Balance 145 ml -1175 ml Intake Oral 920 ml IV Total 75 ml 825 ml Output Urine Total 850 ml 2000 ml # Voids 1 3 # Bowel Movements 1 Laboratory Tests Test 06/18/18 06:04 White Blood Count 20.4 K/UL (4.8-10.8) H Red Blood Count 2.38 M/UL (4.70-6.10) L Hemoglobin 7.1 G/DL (14.2-18.0) L Hematocrit 20.8 % (42.0-52.0) L Mean Corpuscular Volume 87 FL (80-99) Mean Corpuscular Hemoglobin 30.0 PG (27.0-31.0) Mean Corpuscular Hemoglobin Concent 34.4 G/DL (32.0-36.0) Red Cell Distribution Width 15.6 % (11.6-14.8) H Platelet Count 351 K/UL (150-450) Mean Platelet Volume 7.7 FL (6.5-10.1) Neutrophils (%) (Auto) % (45.0-75.0) Lymphocytes (%) (Auto) % (20.0-45.0) Monocytes (%) (Auto) % (1.0-10.0) Eosinophils (%) (Auto) % (0.0-3.0) Basophils (%) (Auto) % (0.0-2.0) Differential Total Cells Counted 100 Neutrophils % (Manual) 47 % (45-75) Lymphocytes % (Manual) 40 % (20-45) Monocytes % (Manual) 3 % (1-10) Eosinophils % (Manual) 10 % (0-3) H Basophils % (Manual) 0 % (0-2) Band Neutrophils 0 % (0-8) Platelet Estimate Adequate Platelet Morphology Normal Polychromasia 1+ Hypochromasia 3+ Poikilocytosis 1+ Anisocytosis 2+ Spherocytes 2+ Sodium Level 140 MMOL/L (136-145) Potassium Level 5.0 MMOL/L (3.5-5.1) Chloride Level 105 MMOL/L (98-107) Carbon Dioxide Level 34 MMOL/L (21-32) H Anion Gap 2 mmol/L (5-15) L Blood Urea Nitrogen 22 mg/dL (7-18) H Creatinine 0.8 MG/DL (0.55-1.30) Estimat Glomerular Filtration Rate > 60 mL/min (>60) Glucose Level 104 MG/DL (74-106) Calcium Level 9.3 MG/DL (8.5-10.1) Total Bilirubin 0.9 MG/DL (0.2-1.0) Aspartate Amino Transf (AST/SGOT) 36 U/L (15-37) Alanine Aminotransferase (ALT/SGPT) 49 U/L (12-78) Alkaline Phosphatase 161 U/L (46-116) H Lactate Dehydrogenase 339 U/L (81-234) H Total Protein 6.7 G/DL (6.4-8.2) Albumin 3.4 G/DL (3.4-5.0) Globulin 3.3 g/dL Albumin/Globulin Ratio 1.0 (1.0-2.7) Phenobarbital Level < 1.0 ug/mL (15-40) L Height (Feet): 5 Height (Inches): 11.00 Weight (Pounds): 157 Deedee Sims MD Jun 18, 2018 21:40
--- NOTE | 2018-06-18 21:40 | General Progress Note ---
Subjective Allergies: Coded Allergies: PENTAMIDINE ISETHIONATE (Verified Allergy, Severe, palpitations, 08/27/17) AMPICILLIN (Verified Allergy, Unknown, hives, 01/05/18) Tolerated CEftriaxone 01/02/18 KETOROLAC (Verified Allergy, Unknown, 08/03/16) MORPHINE (Verified Allergy, Unknown, 08/03/16) PHENYTOIN (Verified Allergy, Unknown, 08/03/16) Objective Last 24 Hour Vital Signs Date Time Temp Pulse Resp B/P (MAP) Pulse Ox O2 Delivery O2 Flow Rate FiO2 06/18/18 08:00 98.0 89 20 135/77 (96) 06/18/18 04:05 97.6 90 20 140/74 (96) 98 06/18/18 00:00 97.7 77 20 121/79 (93) Intake and Output 06/17/18 06/18/18 19:00 07:00 Intake Total 995 ml 825 ml Output Total 850 ml 2000 ml Balance 145 ml -1175 ml Intake Oral 920 ml IV Total 75 ml 825 ml Output Urine Total 850 ml 2000 ml # Voids 1 3 # Bowel Movements 1 Laboratory Tests 06/18/18 06:04: White Blood Count 20.4H, Red Blood Count 2.38L, Hemoglobin 7.1L, Hematocrit 20.8L, Mean Corpuscular Volume 87, Mean Corpuscular Hemoglobin 30.0, Mean Corpuscular Hemoglobin Concent 34.4, Red Cell Distribution Width 15.6H, Platelet Count 351, Mean Platelet Volume 7.7, Neutrophils (%) (Auto) , Lymphocytes (%) (Auto) , Monocytes (%) (Auto) , Eosinophils (%) (Auto) , Basophils (%) (Auto) , Differential Total Cells Counted 100, Neutrophils % ( Manual) 47, Lymphocytes % (Manual) 40, Monocytes % (Manual) 3, Eosinophils % ( Manual) 10H, Basophils % (Manual) 0, Band Neutrophils 0, Platelet Estimate Adequate, Platelet Morphology Normal, Polychromasia 1+, Hypochromasia 3+, Poikilocytosis 1+, Anisocytosis 2+, Spherocytes 2+, Sodium Level 140, Potassium Level 5.0, Chloride Level 105, Carbon Dioxide Level 34H, Anion Gap 2L, Blood Urea Nitrogen 22H, Creatinine 0.8, Estimat Glomerular Filtration Rate > 60, Glucose Level 104, Calcium Level 9.3, Total Bilirubin 0.9, Aspartate Amino Transf (AST/SGOT) 36, Alanine Aminotransferase (ALT/SGPT) 49, Alkaline Phosphatase 161H, Lactate Dehydrogenase 339H, Total Protein 6.7, Albumin 3.4, Globulin 3.3, Albumin/Globulin Ratio 1.0, Phenobarbital Level < 1.0L Height (Feet): 5 Height (Inches): 11.00 Weight (Pounds): 157 Deedee Sims MD Jun 18, 2018 21:40
--- NOTE | 2018-06-21 08:35 | Discharge Summary ---
Discharge Summary Discharge Summary _ DATE OF ADMISSION: [] 06/16/2018 DATE OF DISCHARGE: 06/18/2018 REASON FOR ADMISSION: 42 years old male with past medical history of sickle cell disease with pain crises, history of DVT bilateral lower extremity, COPD/asthma, hypertension, diastolic congestive heart failure, severe pulmonary hypertension, seizure disorder, anemia of sickle cell disease, presented to emergency department with generalized body pain along with lower back, bilateral hip and left knee pain. Patient chronically oxygen dependent at home. He denied fever, cough ,congestion, wheezing or hemoptysis. He denied nausea, vomiting, diarrhea. No headache, no neck stiffness, no rashes, no dysuria. Upon evaluation troponin was negative. EKG revealed sinus rhythm , no acute ischemic changes. Laboratory workup revealed leukocytosis (usual for him) and anemia with hemoglobin 7.5. Elevated LDH. Urine toxicology screen was positive for opiates. Elevated total bilirubin and AST. Chest x-ray revealed chronic interstitial disease. Persistent left midlung opacity. Patient was admitted for further management with diagnosis of sickle cell crisis. CONSULTANTS: pulmonary Dr. Mckenna air drier machine operator/oncologist Dr. Lopes psychiatrist Pain specialist Dr. Perera HOSPITAL COURSE Patient admitted to medical surgical floor and started on IV hydration. Supplemental oxygen titrated to keep pulse oximetry above 92%. Pulmonary toilet provided as needed. Dental spirometry was encouraged while in the bed. Pain management was addressed as per pain specialist recommendation. Economic Adviser followed. Reticulocyte and LDH were trending. Hydroxyurea and folic acid were continued. Last echo in 2017 revealed preserved ejection fraction and evidence of severe pulmonary hypertension. Repeated echocardiogram at this admission revealed preserved ejection fraction of 65-70%, no evidence of left ventricular hypertrophy. No wall motion abnormality. Moderate tricuspid regurgitation. Right ventricular systolic pressure of 74, consistent with a severe pulmonary hypertension. DVT prophylaxis provided. Patient declined venous duplex bilateral lower extremity. Blood pressure was closely monitored and remained stable. Seizure precautions were maintained. Phenobarbital was continued. Bowel regimen instituted Supportive care provided. Patient was encouraged compliance with medication regimen. Patient stabilized and was ready for discharge home. FINAL DIAGNOSES: Sickle cell crisis Anemia of sickle cell disease, Chronic hypoxemic respiratory failure , requiring home O2 Asthma/COPD Congestive heart failure with diastolic dysfunction Severe pulmonary hypertension Hypertension Seizure disorder Avascular necrosis bilateral hips History of DVT bilateral lower extremity DISCHARGE MEDICATIONS: Medication list was sent with patient DISCHARGE INSTRUCTIONS: Patient was discharged home. Follow up with air drier machine operator in one week. Mikayla Camara NP Jun 21, 2018 08:35
== END 2018-06-18 11:30 | disposition home or self-care (01) | DRG 662 ==
LOC: EMR 13:56 → 4E 14:25 → EDBEDREQ 15:12
DX: D57.00 Hb-SS disease with crisis, unspecified (principal); J96.11 Chronic respiratory failure with hypoxia; I27.20 Pulmonary hypertension, unspecified; M87.852 Other osteonecrosis, left femur; M87.851 Other osteonecrosis, right femur; I11.0 Hypertensive heart disease with heart failure; I50.32 Chronic diastolic (congestive) heart failure; G40.909 Epilepsy, unspecified, not intractable, without status epilepticus; J44.9 Chronic obstructive pulmonary disease, unspecified; Z86.718 Personal history of other venous thrombosis and embolism; Z88.6 Allergy status to analgesic agent; Z88.1 Allergy status to other antibiotic agents; Z88.8 Allergy status to other drugs, medicaments and biological substances
CPT/HCPCS: 36415; 71045; 80053; 80184; 80307; 81003; 82248; 82550; 83615; 83880; 84484; 84550; 85007; 85025; 85044; 85610; 85730; 86850; 86900; 86901; 93306; 94664; 96361; 96374; 96375; 96376; 99285; J2405

== ENCOUNTER 2018-09-10 14:22 | Inpatient (IN) | payer MEDICARE, OTHER ==
[~2018-09-10] VITALS: Ht 180.3 cm; Wt 68.5 kg
[2018-09-10 14:30] VITALS: BP 127/82
[2018-09-10] MEDS ORDERED: Ipratropium 0.02% Inh Soln 2.5ml UD HHN ONE (14:30)
[2018-09-10] MEDS ORDERED: Albuterol ud Inhalation HHN ONE (14:30)
--- NOTE | 2018-09-10 14:30 | NUR ---
ED Nurse Note: Pt presented at ER c/o Sickell cell crisis with general body pain 10/10. pt aao x4 and skin clean and intact. pt presented crossed eye, port a cath on Rt upper chest. 20G of port a cath needle was inserted and good blood return noted. VSS and pt calm and cooperative.
--- NOTE | 2018-09-10 14:32 | NUR ---
ED Nurse Note: pt refused to be on hospital gown as reporting he is allergic to it.
--- NOTE | 2018-09-10 14:37 | Emergency Room Report ---
History of Present Illness General Chief Complaint: General Complaint Source: Patient, Medical Record Present Illness HPI This is a 42-year-old male with a history of sickle cell anemia, seizure disorder, who complains of back pain that radiates to his chest. Associated with coughing. Greenish sputum. This is been going on for several days. His shortness of breath exacerbated by exertion. Alleviated by rest. He does have subjective fever. He states that he has been taking medications with minimal relief. No other associated symptoms. He states is very similar to his pneumonia in the past before. Allergies: Coded Allergies: PENTAMIDINE ISETHIONATE (Verified Allergy, Severe, palpitations, 08/27/17) AMPICILLIN (Verified Allergy, Unknown, hives, 01/05/18) Tolerated CEftriaxone 01/02/18 KETOROLAC (Verified Allergy, Unknown, 08/03/16) MORPHINE (Verified Allergy, Unknown, 08/03/16) PHENYTOIN (Verified Allergy, Unknown, 08/03/16) Patient History Past Medical History: see triage record Past Surgical History: none Pertinent Family History: none Nursing Documentation-[facility] Past Medical History: No History, Except For Hx Cardiac Problems: Yes - sickle cell Hx Hypertension: Yes Hx Asthma: Yes Hx COPD: Yes Hx Cancer: No Hx Gastrointestinal Problems: No Hx Neurological Problems: Yes Hx Seizures: Yes Review of Systems All Other Systems: negative except mentioned in HPI Physical Exam Vital Signs Date Time Temp Pulse Resp B/P (MAP) Pulse Ox O2 Delivery O2 Flow Rate FiO2 09/10/18 14:25 98.1 82 19 100/67 90 Room Air General Appearance: normal inspection, no apparent distress, alert ENT: normal ENT inspection, no angioedema, normal voice Neck: full range of motion, supple Respiratory: no accessory muscle use, rhonchi, wheezing Gastrointestinal: non tender, soft, no rebound Musculoskeletal: normal inspection, digits/nails normal Neurologic: normal inspection, oriented x3 Medical Decision Making Diagnostic Impression: Primary Impression: Pneumonia Additional Impressions: Sickle cell crisis Anemia ER Course Patient presented with significant complexity of risk requiring multiple bedside evaluations. Particularly very concerned about acute chest syndrome. I also considered acute sickle cell crisis and aplastic anemia. The patient is anemic. We will order 1 unit of blood on this patient. And I feel that this may improve his respiratory symptoms. I also did consider sepsis. The patient has been started on antibiotics. My concern is the patient may have a pneumonia. Chest x-ray was abnormal.. Laboratory Tests Test 09/10/18 15:20 09/10/18 16:20 White Blood Count 15.3 K/UL (4.8-10.8) H Red Blood Count 2.32 M/UL (4.70-6.10) L Hemoglobin 6.8 G/DL (14.2-18.0) *L Hematocrit 20.6 % (42.0-52.0) L Mean Corpuscular Volume 89 FL (80-99) Mean Corpuscular Hemoglobin 29.3 PG (27.0-31.0) Mean Corpuscular Hemoglobin Concent 33.0 G/DL (32.0-36.0) Red Cell Distribution Width 18.0 % (11.6-14.8) H Platelet Count 463 K/UL (150-450) H Mean Platelet Volume 6.0 FL (6.5-10.1) L Neutrophils (%) (Auto) % (45.0-75.0) Lymphocytes (%) (Auto) % (20.0-45.0) Monocytes (%) (Auto) % (1.0-10.0) Eosinophils (%) (Auto) % (0.0-3.0) Basophils (%) (Auto) % (0.0-2.0) Differential Total Cells Counted 100 Neutrophils % (Manual) 72 % (45-75) Lymphocytes % (Manual) 13 % (20-45) L Monocytes % (Manual) 5 % (1-10) Eosinophils % (Manual) 10 % (0-3) H Basophils % (Manual) 0 % (0-2) Band Neutrophils 0 % (0-8) Nucleated Red Blood Cells 9 /100 WBC Platelet Estimate Increased H Platelet Morphology Normal Polychromasia 1+ Hypochromasia 2+ Anisocytosis 2+ Microcytosis 1+ Target Cells 1+ Reticulocyte Count 3.0 % (0.0-2.0) H Sodium Level 143 MMOL/L (136-145) Potassium Level 4.7 MMOL/L (3.5-5.1) Chloride Level 108 MMOL/L (98-107) H Carbon Dioxide Level 26 MMOL/L (21-32) Anion Gap 10 mmol/L (5-15) Blood Urea Nitrogen 16 mg/dL (7-18) Creatinine 1.0 MG/DL (0.55-1.30) Estimate Glomerular Filtration Rate > 60 mL/min (>60) Glucose Level 99 MG/DL (74-106) Calcium Level 9.5 MG/DL (8.5-10.1) Total Bilirubin 0.8 MG/DL (0.2-1.0) Aspartate Amino Transferase (AST) 46 U/L (15-37) H Alanine Aminotransferase (ALT) 63 U/L (12-78) Alkaline Phosphatase 214 U/L (46-116) H Total Protein 6.3 G/DL (6.4-8.2) L Albumin 3.6 G/DL (3.4-5.0) Globulin 2.7 g/dL Albumin/Globulin Ratio 1.3 (1.0-2.7) Lactic Acid Level 0.80 mmol/L (0.4-2.0) Microbiology Date/Time Source Procedure Growth Status 09/10/18 15:20 Nasopharynx Influenza Types A,B Antigen (LEANDRO) - Final Complete EKG Diagnostic Results EKG Time: 14:46 Rate: normal Rhythm: NSR ST Segments: no acute changes ASA given to the pt in ED: No Chest X-Ray Diagnostic Results Chest X-Ray Diagnostic Results : Chest X-Ray Ordered: Yes # of Views/Limited/Complete: 1 View Indication: Shortness of Breath Interpretation: other - Suspected interstitial pneumonia Last Vital Signs Date Time Temp Pulse Resp B/P (MAP) Pulse Ox O2 Delivery O2 Flow Rate FiO2 09/10/18 14:25 98.1 82 19 100/67 90 Room Air Disposition: ADMITTED INPATIENT Condition: Serious BHUPENDRA RAMOS Sep 10, 2018 14:37
[2018-09-10] MEDS ORDERED: DiphenhydrAMINE 50mg/ml Inj IVP ONE (15:15)
[2018-09-10 15:44] LABS: HEMATOCRIT 20.6 % (42.0-52.0); MEAN CORPUSCULAR VOLUME 89 FL (80-99); PLATELET COUNT 463 K/UL (150-450); RED BLOOD COUNT 2.32 M/UL (4.70-6.10); WHITE BLOOD COUNT 15.3 K/UL (4.8-10.8)
[2018-09-10 15:48] LABS: HEMOGLOBIN 6.8 G/DL (14.2-18.0)
--- NOTE | 2018-09-10 15:50 | NUR ---
ED Nurse Note: Hgb 6.8 and reported to ERMD.
--- NOTE | 2018-09-10 16:03 | Diagnostic Imaging Report ---
Indication: Dyspnea Comparison: 06/16/2018 A single view chest radiograph was obtained. Findings: There is a right chest port present. Patchy interstitial disease and prominent vascularity demonstrated. Heart is enlarged. The bones are slightly osteopenic. IMPRESSION: Suspected congestive heart failure. Suspect chronic interstitial disease as well
[2018-09-10 16:04] LABS: ANION GAP 10 mmol/L (5-15); BLOOD UREA NITROGEN 16 mg/dL (7-18); CALCIUM 9.5 MG/DL (8.5-10.1); CARBON DIOXIDE 26 MMOL/L (21-32); CHLORIDE 108 MMOL/L (98-107); POTASSIUM 4.7 MMOL/L (3.5-5.1); SODIUM 143 MMOL/L (136-145)
[2018-09-10 16:09] LABS: ALANINE AMINOTRANSFERASE 63 U/L (12-78); ALBUMIN 3.6 G/DL (3.4-5.0); ALBUMIN/GLOBULIN RATIO 1.3 (1.0-2.7); ALKALINE PHOSPHATASE 214 U/L (46-116); ASPARTATE AMINO TRANSFERASE 46 U/L (15-37); BILIRUBIN,TOTAL 0.8 MG/DL (0.2-1.0)
[2018-09-10] MEDS ORDERED: cefTRIAXone 1 GM in NS 55 ML IVPB ONE (16:30)
[2018-09-10] MEDS ORDERED: HYDROmorphone 1mg/ml Carpuject IVP ONE (17:15)
[2018-09-10] MEDS ORDERED: Mylanta II UD 30ml ORAL PRN (17:45)
[2018-09-10] MEDS ORDERED: LORazepam Inj 2mg/ml 1ml IV PRN (17:45)
[2018-09-10] MEDS ORDERED: HYDROmorphone 1mg/ml Carpuject SUBQ PRN (17:45)
[2018-09-10] MEDS ORDERED: Miralax 17gm pkt ORAL PRN (17:45)
--- NOTE | 2018-09-10 18:00 | NUR ---
ED Nurse Note: Report given to GRISELDA Grayson. He was told pt will be transferred after 1900 from his concrete pouring supervisor. will confirm that and will follow that.
[2018-09-10] MEDS ORDERED: UNOBMED (18:02)
[2018-09-10] MEDS ORDERED: Dextrose 50% 25ml Syringe IV PRN (18:15)
--- NOTE | 2018-09-10 18:31 | NUR ---
ED Nurse Note: Called GRISELDA Grayson again and we will transfer pt now.
[2018-09-10 18:50] VITALS: BP 155/98
[2018-09-10] MEDS ORDERED: VIMPAT100 MG PO (18:59)
--- NOTE | 2018-09-10 19:13 | NUR ---
NURSE NOTES: Patient received to room at 1850. Transferred via gurney by emissions repair technician. Transferred safely to bed. VS assessed and stable. Patient on 6L NC. Right upper chest power port accessed with IVF TKO. Called ER and asked Rachel VILLALOBOS if blood was transfused per order from ER MD, order was placed at 1740. Rachel RN reports she did not transfuse blood. Will endorse to fast food shift supervisor to call admitting doctor for order to transfuse blood. Patient's belongings accounted and signed for. Side rails upx3, bed low and locked, call light in reach. Will continue to monitor.
--- NOTE | 2018-09-10 19:15 | NUR ---
HAND-OFF: Report given to Ori VILLALOBOS. Patient in stable condition.
--- NOTE | 2018-09-10 19:25 | NUR ---
NURSE NOTES: Report taken from GRISELDA Stout. Patient came to the floor at 1850. In stable condition, vitals stable. Patient stating that he is in 8/10 pain, generalized. Is asking if he has orders for specific home medications. RN followed up with pharmacy and MD to complete orders. Pharmacy will complete medications in the AM, once they receive approval from patients home pharmacy. Right port-o-cath is c/d/i and patent, IVF 1/2NS @ 75/hr. Argelia endorsed that the patient had yet to receive blood transfusion. Will follow up with lab and begin transfusion. Patient is weak and does not get out of bed. Continue to monitor. Bed in lowest position, call light within reach.
--- NOTE | 2018-09-10 20:15 | History and Physical Report ---
DATE OF ADMISSION: 09/10/2018 CHIEF COMPLAINT: The patient is a 42-year-old male, who presents with a chief complaint of chest pain. HISTORY OF PRESENT ILLNESS: The patient has a history of sickle cell anemia. The patient was last admitted to [facility] in June of 2018. Please see history and physical and discharge summary dictated at that time. History of present illness began several days ago. The patient began to experience a cough. The patient states cough is productive of a greenish sputum. The patient has subjective fevers and chills. The patient now complains of back pain that radiates to the chest. The patient presented to [place] emergency room. The patient is admitted with chest pain and cough to rule out pneumonia. REVIEW OF SYSTEMS: CONSTITUTIONAL: The patient denies weight loss or weight gain. The patient denies fevers or chills. HEENT: The patient denies ear or throat pain. The patient denies headache. CARDIOVASCULAR: The patient denies palpitations or chest pain. CHEST: The patient complains of cough productive of a greenish sputum as above. The patient denies wheezes. ABDOMEN: The patient denies nausea, vomiting, diarrhea, or constipation. GENITOURINARY: The patient denies dysuria or increased frequency of urination. NEUROMUSCULAR: The patient denies seizures or generalized weakness. PAST MEDICAL HISTORY: Significant for, 1. Sickle cell disease. 2. History of seizure disorder. 3. Avascular necrosis of the bilateral hips. 4. Avascular necrosis of bilateral knees. PAST SURGICAL HISTORY: Significant for, 1. Tonsillectomy and adenoidectomy. 2. Left tibia fibula fracture. 3. Open reduction and internal fixation of left tibia fibula fracture. 4. Pneumothorax. CURRENT MEDICATIONS: 1. Tylenol 650 mg p.o. daily. 2. Benadryl 25 mg 2 tablets p.o. q.4 hours p.r.n. 3. Folic acid 1 mg p.o. daily. 4. Gabapentin 300 mg p.o. 3 times daily. 5. Dilaudid 4 mg 3 tablets p.o. q.4 hours. 6. Hydroxyurea 500 mg p.o. twice daily. 7. Vimpat 100 mg p.o. twice daily. 8. Methadone 60 mg p.o. q.6 hours. ALLERGIES: 1. Ampicillin. 2. Ketoralac. 3. Morphine. 4. Pentamidine. 5. . 6. Phenytoin. SOCIAL HISTORY: The patient lives with his girlfriend and children. The patient is disabled. The patient denies tobacco or alcohol use. PHYSICAL EXAMINATION: VITAL SIGNS: Temperature 98.1, respirations 19, pulse 80,and blood pressure 127/82. GENERAL: The patient is a well-developed and well nourished male, in no apparent distress. HEENT: Eyes, pupils are equal and responsive to light and accommodation. Extraocular movements are intact. NECK: Supple without lymphadenopathy. CHEST: Decreased crackles in bilateral bases. Otherwise, clear to auscultation without wheezes or rales. CARDIOVASCULAR: Regular rhythm and rate. S1 and S2 are normal without murmurs, rubs, or gallops. ABDOMEN: Soft, nontender, and nondistended. Positive bowel sounds. No evidence of hepatosplenomegaly. Currently, no rebound or guarding noted. EXTREMITIES: Negative for clubbing, cyanosis, or edema. RECTAL/GENITAL: Refused. NEUROLOGIC: Cranial nerves II through XII are grossly intact without focal deficits. Motor strength is 5/5 bilaterally. Deep tendon reflexes are 2+ plantar. LABORATORY STUDIES: WBC 15.3, hemoglobin 6.8, hematocrit 20.6, and platelets 463,000. Sodium 143, potassium 4.7, chloride 108, CO2 26, BUN 16, creatinine 1.0, and glucose 99. Chest x-ray was reported as suspect congestive heart failure and chronic interstitial disease. ASSESSMENT: This is a 42-year-old male. 1. Probable bronchitis. 2. Sickle cell disease. 3. Severe anemia. 4. History of seizure disorder. 5. Pulmonary hypertension. 6. History of avascular necrosis of the bilateral hips. 7. Avascular necrosis of bilateral knees. TREATMENT: 1. Bronchitis. The patient received ceftriaxone and doxycycline in the emergency room. A Pulmonary consultation has been obtained with Dr. Hanna Mckenna. We will follow recommendations of Pulmonary. 2. Sickle cell disease. 3. Sickle cell anemia. The patient currently has severe anemia. The patient may require transfusion during the hospitalization. 4. Seizure disorder. Continue gabapentin as above. 5. Pulmonary hypertension. Mehdi Rosales M.D. DR: RAFIQ JOB#: [id number] CC:
[2018-09-10 21:00] VITALS: BP 141/97
[2018-09-10] MEDS: Heparin 5000 units/ml inj SUBQ SCH (21:00)
[2018-09-10] MEDS ORDERED: HYDROmorphone 4mg tab ORAL SCH (21:00)
--- NOTE | 2018-09-10 22:30 | NUR ---
NURSE NOTES: Patient due blood transfusion. Patient however was refusing because he has no orders for benadryl or his anti-seizure medication. RN contacted MD immediately, awaiting return call.
[2018-09-10] MEDS ORDERED: DiphenhydrAMINE 50mg/ml Inj IVP STA (22:57)
[2018-09-11] VITALS: BP 148/103
[2018-09-11 04:00] VITALS: BP 156/99
[2018-09-11] MEDS ORDERED: DiphenhydrAMINE 50mg/ml Inj IVP PRN (05:00)
--- NOTE | 2018-09-11 05:24 | NUR ---
NURSE NOTES: Patient stated that he would like to get a breathing treatment. Is having audible wheezing, with some crackles at the base of the lungs. Contacted MD waiting for call back.
[2018-09-11] MEDS: Lacosamide 50mg tablet ORAL SCH ×2 (06:04→18:13)
--- NOTE | 2018-09-11 07:30 | NUR ---
NURSE NOTES: Received pt from GRISELDA PATTERSON. Pt is alert and oriented x4. pt has NC 6L/M. No SOB or acute respiratory distress noted. pt has intact RU chest port is running well. Dr cheung visited pt, all orders noted and carried out. all needs attended, bed is locked and is in the lowest position. call light within easy reach. will continue to monitor.
[2018-09-11 07:33] LABS: ALANINE AMINOTRANSFERASE 62 U/L (12-78); ALBUMIN 3.4 G/DL (3.4-5.0); ALBUMIN/GLOBULIN RATIO 1.2 (1.0-2.7); ALKALINE PHOSPHATASE 192 U/L (46-116); ANION GAP 6 mmol/L (5-15); ASPARTATE AMINO TRANSFERASE 44 U/L (15-37); BILIRUBIN,TOTAL 0.6 MG/DL (0.2-1.0); BLOOD UREA NITROGEN 13 mg/dL (7-18); CALCIUM 9.3 MG/DL (8.5-10.1); CARBON DIOXIDE 28 MMOL/L (21-32); CHLORIDE 108 MMOL/L (98-107); CREATININE 0.9 MG/DL (0.55-1.30); LACTATE DEHYDROGENASE 322 U/L (81-234); POTASSIUM 4.6 MMOL/L (3.5-5.1); SODIUM 142 MMOL/L (136-145)
--- NOTE | 2018-09-11 07:47 | NUR ---
HAND-OFF: Report given to GRISELDA Burrell. Patient in stable condition.
[2018-09-11 07:50] LABS: BASOPHILS % (AUTO) 3.6 % (0.0-2.0); EOSINOPHILS % (AUTO) 8.9 % (0.0-3.0); HEMATOCRIT 25.2 % (42.0-52.0); LYMPHOCYTES % (AUTO) 21.8 % (20.0-45.0); MEAN CORPUSCULAR VOLUME 91 FL (80-99); MONOCYTES % (AUTO) 9.3 % (1.0-10.0); NEUTROPHILS % (AUTO) 56.5 % (45.0-75.0); PLATELET COUNT 413 K/UL (150-450); RED BLOOD COUNT 2.78 M/UL (4.70-6.10); RED CELL DISTRIBUTION WIDTH 17.7 % (11.6-14.8); WHITE BLOOD COUNT 14.5 K/UL (4.8-10.8)
[2018-09-11 07:51] LABS: HEMOGLOBIN 8.4 G/DL (14.2-18.0)
[2018-09-11 08:00] VITALS: BP 134/92
[2018-09-11] MEDS ORDERED: Wixela 250/50 Inhaler - 60 dose INH PRN (08:15)
[2018-09-11] MEDS ORDERED: HydrALAZINE 25mg tab ORAL PRN (08:15)
[2018-09-11] MEDS ORDERED: Lacosamide 50mg tablet ORAL SCH (09:00)
[2018-09-11] MEDS: Heparin 5000 units/ml inj SUBQ SCH ×2 (09:00→20:35)
[2018-09-11] MEDS: Hydroxyurea 500mg cap ORAL SCH ×2 (09:04→18:11)
--- NOTE | 2018-09-11 10:32 | NUR ---
*-* INSURANCE *-* ALL CLINICALS HAVE BEEN FAXED TO: [employer]ONT[employer] P:[phone] F:[phone]
[2018-09-11 12:00] VITALS: BP 147/96
--- NOTE | 2018-09-11 12:13 | Consultation ---
History of Present Illness General Date patient seen: Sep 11, 2018 Chief Complaint: General Complaint Present Illness HPI 42 year old male with history of sickle cell disease, DVT bilateral lower extremity ,COPD/asthma, hypertension, diastolic CHF, severe pulmonary HTN, seizure disorder, anemia, presented to Er with generalized body pain with cough and dyspnea. Patient is chronically oxygen dependent at home Chest x-ray revealed chronic interstitial disease. Persistent left midlung opacity . Patient was admitted for further management with diagnosis of sickle cell crisis and Bronchitis Allergies: Coded Allergies: PENTAMIDINE ISETHIONATE (Verified Allergy, Severe, palpitations, 08/27/17) AMPICILLIN (Verified Allergy, Unknown, hives, 01/05/18) Tolerated CEftriaxone 01/02/18 KETOROLAC (Verified Allergy, Unknown, 08/03/16) MORPHINE (Verified Allergy, Unknown, 08/03/16) PHENYTOIN (Verified Allergy, Unknown, 08/03/16) Medication History Scheduled Acetaminophen/Diphenhydramine (Acetaminophen Pm Caplet), 2 TAB ORAL BEDTIME, ( Reported) Folic Acid* (Folic Acid*), 1 MG ORAL DAILY Gabapentin* (Gabapentin*), 350 MG ORAL THREE TIMES A DAY, (Reported) Hydromorphone HCl (Dilaudid), 14 MG ORAL EVERY 4 HOURS, (Reported) Hydroxyurea* (Hydrea*), 500 MG PO BID Lacosamide (Vimpat), 100 MG PO BID, (Reported) Methadone Hcl* (Methadone*), 60 MG PO Q6HR, (Reported) Scheduled PRN Diphenhydramine HCl (Benadryl), 50 MG PO Q4HR PRN for Itching, (Reported) Miscellaneous Medications Unable to Obtain Medications (Unable To Obtain Meds), (Reported) Discontinued Medications Phenobarbital (Phenobarbital), 16.2 MG PO BID, (Reported) Discontinued Reason: Pt stopped taking med Patient History Healthcare decision maker Resuscitation status Advanced Directive on File Past Medical/Surgical History Past Medical/Surgical History: (1) Avascular necrosis of femur head, right (2) Avascular necrosis of femur head, left (3) Sickle cell disease (4) Interstitial lung disease (5) Pulmonary HTN (6) severe diastolic heart disease (7) Anemia Review of Systems Respiratory: Reports: cough, shortness of breath Musculoskeletal: Reports: back pain, joint pain All Other Systems: negative except mentioned in HPI Physical Exam General Appearance: cachetic Lines, tubes and drains: peripheral HEENT: normocephalic, atraumatic Neck: non-tender, normal alignment Respiratory/Chest: chest wall non-tender, lungs clear Cardiovascular/Chest: normal peripheral pulses, normal rate Abdomen: normal bowel sounds, non tender Extremities: normal range of motion Skin Exam: normal pigmentation Last 24 Hour Vital Signs Date Time Temp Pulse Resp B/P (MAP) Pulse Ox O2 Delivery O2 Flow Rate FiO2 09/11/18 09:00 Nasal Cannula 6.0 09/11/18 08:00 98.8 79 19 134/92 (106) 98 09/11/18 04:00 98.3 81 18 156/99 (118) 100 09/11/18 00:00 98.5 85 17 148/103 (118) 100 09/10/18 21:00 98.3 85 16 141/97 (112) 100 09/10/18 19:01 Nasal Cannula 4.0 09/10/18 18:50 97.9 87 20 155/98 (117) 96 09/10/18 18:30 98.1 80 16 127/82 99 Nasal Cannula 2.0 28 09/10/18 17:40 98.1 09/10/18 15:18 98.1 09/10/18 15:04 72 16 99 Nasal Cannula 2.0 28 09/10/18 14:55 66 16 Nasal Cannula 2.0 28 09/10/18 14:55 66 16 96 Nasal Cannula 2.0 28 09/10/18 14:30 80 19 Room Air 09/10/18 14:30 98.1 80 17 127/82 100 Room Air 09/10/18 14:25 98.1 82 19 100/67 90 Room Air Intake and Output 09/10/18 09/11/18 19:00 07:00 Intake Total 1055 ml Balance 1055 ml Intake Oral 0 ml IV Total 1055 ml # Bowel Movements 1 Laboratory Tests Test 09/10/18 15:20 09/10/18 16:20 09/11/18 05:36 09/11/18 07:00 White Blood Count 15.3 K/UL (4.8-10.8) H 14.5 K/UL (4.8-10.8) H Red Blood Count 2.32 M/UL (4.70-6.10) L 2.78 M/UL (4.70-6.10) L Hemoglobin 6.8 G/DL (14.2-18.0) *L 8.4 G/DL (14.2-18.0) L Hematocrit 20.6 % (42.0-52.0) L 25.2 % (42.0-52.0) L Mean Corpuscular Volume 89 FL (80-99) 91 FL (80-99) Mean Corpuscular Hemoglobin 29.3 PG (27.0-31.0) 29.2 PG (27.0-31.0) Mean Corpuscular Hemoglobin Concent 33.0 G/DL (32.0-36.0) 32.2 G/DL (32.0-36.0) Red Cell Distribution Width 18.0 % (11.6-14.8) H 17.7 % (11.6-14.8) H Platelet Count 463 K/UL (150-450) H 413 K/UL (150-450) Mean Platelet Volume 6.0 FL (6.5-10.1) L 5.9 FL (6.5-10.1) L Neutrophils (%) (Auto) % (45.0-75.0) 56.5 % (45.0-75.0) Lymphocytes (%) (Auto) % (20.0-45.0) 21.8 % (20.0-45.0) Monocytes (%) (Auto) % (1.0-10.0) 9.3 % (1.0-10.0) Eosinophils (%) (Auto) % (0.0-3.0) 8.9 % (0.0-3.0) H Basophils (%) (Auto) % (0.0-2.0) 3.6 % (0.0-2.0) H Differential Total Cells Counted 100 Neutrophils % (Manual) 72 % (45-75) Lymphocytes % (Manual) 13 % (20-45) L Monocytes % (Manual) 5 % (1-10) Eosinophils % (Manual) 10 % (0-3) H Basophils % (Manual) 0 % (0-2) Band Neutrophils 0 % (0-8) Nucleated Red Blood Cells 9 /100 WBC Platelet Estimate Increased H Platelet Morphology Normal Polychromasia 1+ Hypochromasia 2+ Anisocytosis 2+ Microcytosis 1+ Target Cells 1+ Reticulocyte Count 3.0 % (0.0-2.0) H Sodium Level 143 MMOL/L (136-145) 142 MMOL/L (136-145) Potassium Level 4.7 MMOL/L (3.5-5.1) 4.6 MMOL/L (3.5-5.1) Chloride Level 108 MMOL/L (98-107) H 108 MMOL/L (98-107) H Carbon Dioxide Level 26 MMOL/L (21-32) 28 MMOL/L (21-32) Anion Gap 10 mmol/L (5-15) 6 mmol/L (5-15) Blood Urea Nitrogen 16 mg/dL (7-18) 13 mg/dL (7-18) Creatinine 1.0 MG/DL (0.55-1.30) 0.9 MG/DL (0.55-1.30) Estimat Glomerular Filtration Rate > 60 mL/min (>60) > 60 mL/min (>60) Glucose Level 99 MG/DL (74-106) 81 MG/DL (74-106) Calcium Level 9.5 MG/DL (8.5-10.1) 9.3 MG/DL (8.5-10.1) Total Bilirubin 0.8 MG/DL (0.2-1.0) 0.6 MG/DL (0.2-1.0) Aspartate Amino Transf (AST/SGOT) 46 U/L (15-37) H 44 U/L (15-37) H Alanine Aminotransferase (ALT/SGPT) 63 U/L (12-78) 62 U/L (12-78) Alkaline Phosphatase 214 U/L (46-116) H 192 U/L (46-116) H Pro-B-Type Natriuretic Peptide 312 pg/mL (0-125) H Total Protein 6.3 G/DL (6.4-8.2) L 6.2 G/DL (6.4-8.2) L Albumin 3.6 G/DL (3.4-5.0) 3.4 G/DL (3.4-5.0) Globulin 2.7 g/dL 2.8 g/dL Albumin/Globulin Ratio 1.3 (1.0-2.7) 1.2 (1.0-2.7) Lactic Acid Level 0.80 mmol/L (0.4-2.0) Lactate Dehydrogenase 322 U/L (81-234) H Microbiology Date/Time Source Procedure Growth Status 09/10/18 15:20 Nasopharynx Influenza Types A,B Antigen (LEANDRO) - Final Complete Height (Feet): 5 Height (Inches): 11.00 Weight (Pounds): 163 Medications Current Medications Medications (Trade) Dose Ordered Sig/Anthony Route PRN Reason Start Time Stop Time Status Last Admin Dose Admin Acetaminophen (Tylenol) 650 mg Q4H PRN ORAL fever 09/10/18 17:45 10/10/18 17:44 09/10/18 23:22 Al Hydroxide/Mg Hydroxide (Mylanta II) 30 ml Q6H PRN ORAL dyspepsia 09/10/18 17:45 10/10/18 17:44 Dextrose (Dextrose 50%) 25 ml Q30M PRN IV Hypoglycemia 09/10/18 18:15 10/10/18 18:05 Dextrose (Dextrose 50%) 50 ml Q30M PRN IV hypoglycemia 09/10/18 18:15 10/10/18 18:14 Diphenhydramine HCl (Benadryl) 50 mg Q6H PRN IVP Itching 09/11/18 05:00 10/11/18 04:59 09/11/18 06:04 Heparin Sodium (Porcine) (Heparin 5000 units/ml) 5,000 units EVERY 12 HOURS SUBQ 09/10/18 21:00 10/10/18 20:59 09/10/18 21:00 Hydralazine HCl (Apresoline) 25 mg Q6H PRN ORAL SBP>160 09/11/18 08:15 10/11/18 08:14 Hydromorphone HCl (Dilaudid) 2 mg Q3H PRN IV pain 4-6 09/10/18 17:45 09/17/18 17:44 Hydromorphone HCl (Dilaudid) 3 mg Q3H PRN IVP For Pain 7-10 09/10/18 17:45 09/17/18 17:44 09/11/18 06:04 Hydroxyurea (Hydrea) 500 mg BID ORAL 09/11/18 09:00 09/16/18 08:59 09/11/18 09:04 Lacosamide (Vimpat) 100 mg Q12H ORAL 09/11/18 06:00 10/11/18 05:59 09/11/18 06:04 Levofloxacin 100 ml @ 100 mls/hr Q24H IVPB 09/11/18 12:15 09/18/18 12:14 UNV Lorazepam (Ativan 2mg/ml 1ml) 0.5 mg Q4H PRN IV For Anxiety 09/10/18 17:45 09/17/18 17:44 Methadone HCl (Methadone HCl) 60 mg Q6HR ORAL 09/11/18 12:00 09/18/18 11:59 09/11/18 11:50 Ondansetron HCl (Zofran) 4 mg Q6H PRN IVP Nausea & Vomiting 09/10/18 17:45 10/10/18 17:44 Polyethylene Glycol (Miralax) 17 gm HSPRN PRN ORAL Constipation 09/10/18 17:45 10/10/18 17:44 Salmeterol Xinafoate/ Fluticasone (Advair 250/50 Diskus) 1 puffs Q4H PRN INH Shortness of Breath 09/11/18 08:15 10/11/18 08:14 Sodium Chloride 1,000 ml @ 75 mls/hr [id number] IV 09/10/18 17:33 10/10/18 17:32 09/11/18 11:55 Zolpidem Tartrate (Ambien) 5 mg HSPRN PRN ORAL Insomnia 09/10/18 17:45 09/17/18 17:44 Assessment/Plan Problem List: (1) Pneumonia ICD Codes: J18.9 - Pneumonia, unspecified organism SNOMED: 528887785 (2) Interstitial lung disease ICD Codes: J84.9 - Interstitial pulmonary disease, unspecified SNOMED: 78778583, 719722808 (3) Pulmonary HTN ICD Codes: I27.2 - Other secondary pulmonary hypertension SNOMED: 21501636 (4) Sickle cell crisis ICD Codes: D57.00 - Hb-SS disease with crisis, unspecified SNOMED: 326034211 (5) severe diastolic heart disease Assessment/Plan respiratory treatment check sputum analgesics ID evaluation IV abx f/u LDH titrate fio2 to sat Zarrabi,Mirali MD Sep 11, 2018 12:13
[2018-09-11] MEDS ORDERED: Promethazine/Codeine 5ml UD ORAL PRN (12:15)
--- NOTE | 2018-09-11 12:37 | NUR ---
NURSE NOTES: Dr soto visited pt, he is aware T 99.3, all orders noted and carried out. will continue to monitor.
--- NOTE | 2018-09-11 13:29 | Consultation ---
History of Present Illness General Date patient seen: Sep 11, 2018 Chief Complaint: General Complaint Present Illness HPI 42 y/o M with hx of sickle cell anemia, seizure disorder, b/l DVT, avascular necrosis b/k hips, s/p tonsillectomy, L tibia/fibula fx s/p ORIF, pneumothorax, COPD/asthma on home O2, HTN, dCHF, severe pHTN presents to ED on 09/10 with generalized body pain, productive cough of green sputum, subjective fevers and dyspnea. Allergies: Coded Allergies: PENTAMIDINE ISETHIONATE (Verified Allergy, Severe, palpitations, 08/27/17) AMPICILLIN (Verified Allergy, Unknown, hives, 01/05/18) Tolerated CEftriaxone 01/02/18 KETOROLAC (Verified Allergy, Unknown, 08/03/16) MORPHINE (Verified Allergy, Unknown, 08/03/16) PHENYTOIN (Verified Allergy, Unknown, 08/03/16) Medication History Scheduled Acetaminophen/Diphenhydramine (Acetaminophen Pm Caplet), 2 TAB ORAL BEDTIME, ( Reported) Folic Acid* (Folic Acid*), 1 MG ORAL DAILY Gabapentin* (Gabapentin*), 350 MG ORAL THREE TIMES A DAY, (Reported) Hydromorphone HCl (Dilaudid), 14 MG ORAL EVERY 4 HOURS, (Reported) Hydroxyurea* (Hydrea*), 500 MG PO BID Lacosamide (Vimpat), 100 MG PO BID, (Reported) Methadone Hcl* (Methadone*), 60 MG PO Q6HR, (Reported) Scheduled PRN Diphenhydramine HCl (Benadryl), 50 MG PO Q4HR PRN for Itching, (Reported) Miscellaneous Medications Unable to Obtain Medications (Unable To Obtain Meds), (Reported) Discontinued Medications Phenobarbital (Phenobarbital), 16.2 MG PO BID, (Reported) Discontinued Reason: Pt stopped taking med Patient History Healthcare decision maker Resuscitation status Advanced Directive on File Patient History Narrative Pmhx: as above Shx:The patient lives with his girlfriend and children. The patient is disabled. The patient denies tobacco or alcohol use. Fhx: non contributory Review of Systems All Other Systems: negative except mentioned in HPI Physical Exam Physical Exam Narrative GENERAL: The patient is a well-developed and well nourished male, in no apparent distress. HEENT: Eyes, pupils are equal and responsive to light and accommodation. Extraocular movements are intact. NECK: Supple without lymphadenopathy. CHEST: Decreased crackles in bilateral bases. Otherwise, clear to auscultation without wheezes or rales. CARDIOVASCULAR: Regular rhythm and rate. S1 and S2 are normal without murmurs, rubs, or gallops. ABDOMEN: Soft, nontender, and nondistended. Positive bowel sounds. No evidence of hepatosplenomegaly. Currently, no rebound or guarding noted. EXTREMITIES: Negative for clubbing, cyanosis, or edema. NEUROLOGIC: Cranial nerves II through XII are grossly intact without focal deficits. Motor strength is 5/5 bilaterally. Deep tendon reflexes are 2+ plantar. Last 24 Hour Vital Signs Date Time Temp Pulse Resp B/P (MAP) Pulse Ox O2 Delivery O2 Flow Rate FiO2 09/11/18 12:00 99.3 81 20 147/96 (113) 99 09/11/18 09:00 Nasal Cannula 6.0 09/11/18 08:00 98.8 79 19 134/92 (106) 98 09/11/18 04:00 98.3 81 18 156/99 (118) 100 09/11/18 00:00 98.5 85 17 148/103 (118) 100 09/10/18 21:00 98.3 85 16 141/97 (112) 100 09/10/18 19:01 Nasal Cannula 4.0 09/10/18 18:50 97.9 87 20 155/98 (117) 96 09/10/18 18:30 98.1 80 16 127/82 99 Nasal Cannula 2.0 28 09/10/18 17:40 98.1 09/10/18 15:18 98.1 09/10/18 15:04 72 16 99 Nasal Cannula 2.0 28 09/10/18 14:55 66 16 Nasal Cannula 2.0 28 09/10/18 14:55 66 16 96 Nasal Cannula 2.0 28 09/10/18 14:30 80 19 Room Air 09/10/18 14:30 98.1 80 17 127/82 100 Room Air 09/10/18 14:25 98.1 82 19 100/67 90 Room Air Intake and Output 09/10/18 09/11/18 19:00 07:00 Intake Total 1055 ml Balance 1055 ml Intake Oral 0 ml IV Total 1055 ml # Bowel Movements 1 Laboratory Tests Test 09/10/18 15:20 09/10/18 16:20 09/11/18 05:36 09/11/18 07:00 White Blood Count 15.3 K/UL (4.8-10.8) H 14.5 K/UL (4.8-10.8) H Red Blood Count 2.32 M/UL (4.70-6.10) L 2.78 M/UL (4.70-6.10) L Hemoglobin 6.8 G/DL (14.2-18.0) *L 8.4 G/DL (14.2-18.0) L Hematocrit 20.6 % (42.0-52.0) L 25.2 % (42.0-52.0) L Mean Corpuscular Volume 89 FL (80-99) 91 FL (80-99) Mean Corpuscular Hemoglobin 29.3 PG (27.0-31.0) 29.2 PG (27.0-31.0) Mean Corpuscular Hemoglobin Concent 33.0 G/DL (32.0-36.0) 32.2 G/DL (32.0-36.0) Red Cell Distribution Width 18.0 % (11.6-14.8) H 17.7 % (11.6-14.8) H Platelet Count 463 K/UL (150-450) H 413 K/UL (150-450) Mean Platelet Volume 6.0 FL (6.5-10.1) L 5.9 FL (6.5-10.1) L Neutrophils (%) (Auto) % (45.0-75.0) 56.5 % (45.0-75.0) Lymphocytes (%) (Auto) % (20.0-45.0) 21.8 % (20.0-45.0) Monocytes (%) (Auto) % (1.0-10.0) 9.3 % (1.0-10.0) Eosinophils (%) (Auto) % (0.0-3.0) 8.9 % (0.0-3.0) H Basophils (%) (Auto) % (0.0-2.0) 3.6 % (0.0-2.0) H Differential Total Cells Counted 100 Neutrophils % (Manual) 72 % (45-75) Lymphocytes % (Manual) 13 % (20-45) L Monocytes % (Manual) 5 % (1-10) Eosinophils % (Manual) 10 % (0-3) H Basophils % (Manual) 0 % (0-2) Band Neutrophils 0 % (0-8) Nucleated Red Blood Cells 9 /100 WBC Platelet Estimate Increased H Platelet Morphology Normal Polychromasia 1+ Hypochromasia 2+ Anisocytosis 2+ Microcytosis 1+ Target Cells 1+ Reticulocyte Count 3.0 % (0.0-2.0) H Sodium Level 143 MMOL/L (136-145) 142 MMOL/L (136-145) Potassium Level 4.7 MMOL/L (3.5-5.1) 4.6 MMOL/L (3.5-5.1) Chloride Level 108 MMOL/L (98-107) H 108 MMOL/L (98-107) H Carbon Dioxide Level 26 MMOL/L (21-32) 28 MMOL/L (21-32) Anion Gap 10 mmol/L (5-15) 6 mmol/L (5-15) Blood Urea Nitrogen 16 mg/dL (7-18) 13 mg/dL (7-18) Creatinine 1.0 MG/DL (0.55-1.30) 0.9 MG/DL (0.55-1.30) Estimat Glomerular Filtration Rate > 60 mL/min (>60) > 60 mL/min (>60) Glucose Level 99 MG/DL (74-106) 81 MG/DL (74-106) Calcium Level 9.5 MG/DL (8.5-10.1) 9.3 MG/DL (8.5-10.1) Total Bilirubin 0.8 MG/DL (0.2-1.0) 0.6 MG/DL (0.2-1.0) Aspartate Amino Transf (AST/SGOT) 46 U/L (15-37) H 44 U/L (15-37) H Alanine Aminotransferase (ALT/SGPT) 63 U/L (12-78) 62 U/L (12-78) Alkaline Phosphatase 214 U/L (46-116) H 192 U/L (46-116) H Pro-B-Type Natriuretic Peptide 312 pg/mL (0-125) H Total Protein 6.3 G/DL (6.4-8.2) L 6.2 G/DL (6.4-8.2) L Albumin 3.6 G/DL (3.4-5.0) 3.4 G/DL (3.4-5.0) Globulin 2.7 g/dL 2.8 g/dL Albumin/Globulin Ratio 1.3 (1.0-2.7) 1.2 (1.0-2.7) Lactic Acid Level 0.80 mmol/L (0.4-2.0) Lactate Dehydrogenase 322 U/L (81-234) H Microbiology Date/Time Source Procedure Growth Status 09/10/18 15:20 Nasopharynx Influenza Types A,B Antigen (LEANDRO) - Final Complete Height (Feet): 5 Height (Inches): 11.00 Weight (Pounds): 163 Medications Current Medications Medications (Trade) Dose Ordered Sig/Anthony Route PRN Reason Start Time Stop Time Status Last Admin Dose Admin Acetaminophen (Tylenol) 650 mg Q4H PRN ORAL fever 09/10/18 17:45 10/10/18 17:44 09/10/18 23:22 Al Hydroxide/Mg Hydroxide (Mylanta II) 30 ml Q6H PRN ORAL dyspepsia 09/10/18 17:45 10/10/18 17:44 Dextrose (Dextrose 50%) 25 ml Q30M PRN IV Hypoglycemia 09/10/18 18:15 10/10/18 18:05 Dextrose (Dextrose 50%) 50 ml Q30M PRN IV hypoglycemia 09/10/18 18:15 10/10/18 18:14 Diphenhydramine HCl (Benadryl) 25 mg Q6H PRN ORAL Itching 09/11/18 12:15 10/11/18 12:14 Diphenhydramine HCl (Benadryl) 50 mg Q6H PRN IVP Itching 09/11/18 12:45 10/11/18 04:59 Heparin Sodium (Porcine) (Heparin 5000 units/ml) 5,000 units EVERY 12 HOURS SUBQ 09/10/18 21:00 10/10/18 20:59 09/10/18 21:00 Hydralazine HCl (Apresoline) 25 mg Q6H PRN ORAL SBP>160 09/11/18 08:15 10/11/18 08:14 Hydromorphone HCl (Dilaudid) 2 mg Q3H PRN IV pain 4-6 09/10/18 17:45 09/17/18 17:44 Hydromorphone HCl (Dilaudid) 3 mg Q3H PRN IVP For Pain 7-10 09/10/18 17:45 09/17/18 17:44 09/11/18 06:04 Hydroxyurea (Hydrea) 500 mg BID ORAL 09/11/18 09:00 09/16/18 08:59 09/11/18 09:04 Lacosamide (Vimpat) 100 mg Q12H ORAL 09/11/18 06:00 10/11/18 05:59 09/11/18 06:04 Levofloxacin 100 ml @ 100 mls/hr Q24H IVPB 09/11/18 13:00 09/18/18 12:59 Lorazepam (Ativan 2mg/ml 1ml) 0.5 mg Q4H PRN IV For Anxiety 09/10/18 17:45 09/17/18 17:44 Methadone HCl (Methadone HCl) 60 mg Q6HR ORAL 09/11/18 12:00 09/18/18 11:59 09/11/18 11:50 Ondansetron HCl (Zofran) 4 mg Q6H PRN IVP Nausea & Vomiting 09/10/18 17:45 10/10/18 17:44 Polyethylene Glycol (Miralax) 17 gm HSPRN PRN ORAL Constipation 09/10/18 17:45 10/10/18 17:44 Promethazine HCl/ Codeine (Phenergan with Codeine) 5 ml Q4H PRN ORAL For Cough 09/11/18 12:15 10/11/18 12:14 Salmeterol Xinafoate/ Fluticasone (Advair 250/50 Diskus) 1 puffs Q4H PRN INH Shortness of Breath 09/11/18 08:15 10/11/18 08:14 Sodium Chloride 1,000 ml @ 75 mls/hr [id number] IV 09/10/18 17:33 10/10/18 17:32 09/11/18 11:55 Theophylline (Gee-Dur) 100 mg EVERY 12 HOURS ORAL 09/11/18 21:00 10/11/18 20:59 Zolpidem Tartrate (Ambien) 5 mg HSPRN PRN ORAL Insomnia 09/10/18 17:45 09/17/18 17:44 Assessment/Plan Assessment/Plan Abx: Levaquin 09/11- Ceftriaxone x1 09/10 Doxycycline x1 09/10 Assessment: Acute sickle cell crisis Acute bronchitis -CXR: Suspected congestive heart failure. Suspect chronic interstitial disease as well -influenza sc neg Afebrile Leukocytosis, improving sickle cell anemia seizure disorder b/l DVT avascular necrosis b/l hips s/p tonsillectomy L tibia/fibula fx s/p ORIF pneumothorax COPD/asthma on home O2 HTN dCHF severe pHTN Plan: -Continue Levaquin #1 (abx d #2/) -f/u cx -Monitor CBC/CMP, temperatures Thank you for this consultation. Will continue to follow along with you. Discussed with Isadora Lawrence M.D. Sep 11, 2018 13:29
[2018-09-11] MEDS: DiphenhydrAMINE 50mg/ml Inj IVP PRN ×2 (13:30→20:28)
--- NOTE | 2018-09-11 14:10 | NUR ---
CASE MANAGEMENT:REVIEW 42 YR OLD MALE FROM HOME CC: SOB. CHEST PAIN. SICKLE CELL CRISIS W/GENERALIZED BODY PAIN SI: PNEUMONIA. SSC. ANEMIA 98.1 82 19 100/67 90% ON RA WBC+15.3 H/H-6.8/20.6 IS: DUONEB HHN 1L NS BOLUS IV DILAUDID IV ZOFRAN IV BENADRYL IV ROCEPHIN CHEST XRAY : TO MED/SURG UNIT 3 EAST INTERQUAL CRITERIA
[2018-09-11 15:53] VITALS: BP 93/55
--- NOTE | 2018-09-11 16:45 | General Progress Note ---
Assessment/Plan Assessment/Plan (1) Intractable pain (2) Avascular necrosis of femur head, left (3) Sickle cell disease and crisis (4) Avascular necrosis of femur head, right Patient will be continued on methadone and Dilaudid as needed. Pt was d/w Dr. Perera and he concurred. Subjective Date patient seen: Sep 11, 2018 Time patient seen: 04:15 - pm Allergies: Coded Allergies: PENTAMIDINE ISETHIONATE (Verified Allergy, Severe, palpitations, 08/27/17) AMPICILLIN (Verified Allergy, Unknown, hives, 01/05/18) Tolerated CEftriaxone 01/02/18 KETOROLAC (Verified Allergy, Unknown, 08/03/16) MORPHINE (Verified Allergy, Unknown, 08/03/16) PHENYTOIN (Verified Allergy, Unknown, 08/03/16) Subjective Constitutional: Reports: chills HEENT: Denies: blurred vision, double vision, ear discharge, ear pain, eye pain , mouth pain, mouth swelling, nose congestion, nose pain, tearing, throat pain, throat swelling Cardiovascular: Denies: chest pain, edema, irregular heart rate, lightheadedness, palpitations, syncope Respiratory: Denies: SOB at rest, SOB with excertion, cough, orthopnea, shortness of breath, sputum, stridor, wheezing Gastrointestinal/Abdominal: Denies: abdomen distended, abdominal pain, black stools, blood in stool, constipated, diarrhea, difficulty swallowing, nausea, poor appetite, poor fluid intake, rectal bleeding, tarry stools, vomiting Genitourinary: Denies: burning, discharge, flank pain, frequency, hematuria, incontinence, pain, urgency 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: Denies: anxiety, depressed, emotional problems, headache, numbness, paresthesia, pre-existing deficit, seizure, tingling, tremors, weakness Endocrine: Reports: other, Denies: excessive sweating, flushing, increased hunger, increased thirst, increased urine, intolerance to cold, intolerance to heat, unexplained weight gain, unexplained weight loss Hematologic/Lymphatic: Denies: anemia, easy bleeding, easy bruising Subjective Patient is a known patient from prior admission and has been admitted under the care of Dr. Zarate with SS crisis. Was started on Methadone 60mg Q6H ATC, Dilaudid 2mg IV Q4H PRN and Dilaudid 3mg IV Q3H PRN. He is in bed and continued to c/o generalized body pain which has been tolerated on the medications. Objective Last 24 Hour Vital Signs Date Time Temp Pulse Resp B/P (MAP) Pulse Ox O2 Delivery O2 Flow Rate FiO2 09/11/18 15:53 98.6 61 18 93/55 (68) 99 09/11/18 14:02 99.3 09/11/18 12:00 99.3 81 20 147/96 (113) 99 09/11/18 09:00 Nasal Cannula 6.0 09/11/18 08:00 98.8 79 19 134/92 (106) 98 09/11/18 04:00 98.3 81 18 156/99 (118) 100 09/11/18 00:00 98.5 85 17 148/103 (118) 100 09/10/18 21:00 98.3 85 16 141/97 (112) 100 09/10/18 19:01 Nasal Cannula 4.0 09/10/18 18:50 97.9 87 20 155/98 (117) 96 09/10/18 18:30 98.1 80 16 127/82 99 Nasal Cannula 2.0 28 09/10/18 17:40 98.1 Intake and Output 09/10/18 09/11/18 19:00 07:00 Intake Total 1055 ml Balance 1055 ml Intake Oral 0 ml IV Total 1055 ml # Bowel Movements 1 Laboratory Tests 09/11/18 05:36: White Blood Count 14.5H, Red Blood Count 2.78L, Hemoglobin 8.4L, Hematocrit 25.2L, Mean Corpuscular Volume 91, Mean Corpuscular Hemoglobin 29.2, Mean Corpuscular Hemoglobin Concent 32.2, Red Cell Distribution Width 17.7H, Platelet Count 413, Mean Platelet Volume 5.9L, Neutrophils (%) (Auto) 56.5, Lymphocytes (%) (Auto) 21.8, Monocytes (%) (Auto) 9.3, Eosinophils (%) (Auto) 8.9H, Basophils (%) (Auto) 3.6H 09/11/18 07:00: Sodium Level 142, Potassium Level 4.6, Chloride Level 108H, Carbon Dioxide Level 28, Anion Gap 6, Blood Urea Nitrogen 13, Creatinine 0.9, Estimat Glomerular Filtration Rate > 60, Glucose Level 81, Calcium Level 9.3, Total Bilirubin 0.6, Aspartate Amino Transf (AST/SGOT) 44H, Alanine Aminotransferase ( ALT/SGPT) 62, Alkaline Phosphatase 192H, Lactate Dehydrogenase 322H, Total Protein 6.2L, Albumin 3.4, Globulin 2.8, Albumin/Globulin Ratio 1.2 Height (Feet): 5 Height (Inches): 11.00 Weight (Pounds): 163 Objective General Appearance: no apparent distress, alert EENT: PERRL/EOMI, normal ENT inspection Neck: non-tender, normal alignment Cardiovascular: normal rate, regular rhythm Respiratory/Chest: decreased breath sounds Abdomen: non tender, soft Extremities: non-tender Edema: no edema noted Arm (L), no edema noted Arm (R), no edema noted Leg (L), no edema noted Leg (R), no edema noted Pedal (L), no edema noted Pedal (R), no edema noted Generalized Neurologic: alert, oriented x 3 Skin: warm/dry Cj Anderson Sep 11, 2018 16:45
--- NOTE | 2018-09-11 17:24 | Cardiology Report ---
APPROVED REPORT EKG Measurement Heart [id number] Normal sinus rhythm RSR' or QR pattern in V1 suggests right ventricular conduction delay Nonspecific T wave abnormality Abnormal ECG
--- NOTE | 2018-09-11 18:34 | Internal Med Progress Note ---
Subjective Date of Service: Sep 11, 2018 Physician Name Mehdi Rosales Attending Physician Wan Zarate MD Current Medications Medications (Trade) Dose Ordered Sig/Anthony Route PRN Reason Start Time Stop Time Status Last Admin Dose Admin Acetaminophen (Tylenol) 650 mg Q4H PRN ORAL fever 09/10/18 17:45 10/10/18 17:44 09/10/18 23:22 Al Hydroxide/Mg Hydroxide (Mylanta II) 30 ml Q6H PRN ORAL dyspepsia 09/10/18 17:45 10/10/18 17:44 Dextrose (Dextrose 50%) 25 ml Q30M PRN IV Hypoglycemia 09/10/18 18:15 10/10/18 18:05 Dextrose (Dextrose 50%) 50 ml Q30M PRN IV hypoglycemia 09/10/18 18:15 10/10/18 18:14 Diphenhydramine HCl (Benadryl) 25 mg Q6H PRN ORAL Itching 09/11/18 12:15 10/11/18 12:14 Diphenhydramine HCl (Benadryl) 50 mg Q6H PRN IVP Itching 09/11/18 12:45 10/11/18 04:59 09/11/18 13:30 Heparin Sodium (Porcine) (Heparin 5000 units/ml) 5,000 units EVERY 12 HOURS SUBQ 09/10/18 21:00 10/10/18 20:59 09/10/18 21:00 Hydralazine HCl (Apresoline) 25 mg Q6H PRN ORAL SBP>160 09/11/18 08:15 10/11/18 08:14 Hydromorphone HCl (Dilaudid) 2 mg Q3H PRN IV pain 4-6 09/10/18 17:45 09/17/18 17:44 09/11/18 13:32 Hydromorphone HCl (Dilaudid) 3 mg Q3H PRN IVP For Pain 7-10 09/10/18 17:45 09/17/18 17:44 09/11/18 06:04 Hydroxyurea (Hydrea) 500 mg BID ORAL 09/11/18 09:00 09/16/18 08:59 09/11/18 18:11 Lacosamide (Vimpat) 100 mg Q12H ORAL 2/26/19 06:00 10/11/18 05:59 09/11/18 18:13 Levofloxacin 100 ml @ 100 mls/hr Q24H IVPB 09/11/18 13:00 09/18/18 12:59 09/11/18 13:25 Lorazepam (Ativan 2mg/ml 1ml) 0.5 mg Q4H PRN IV For Anxiety 09/10/18 17:45 09/17/18 17:44 Methadone HCl (Methadone HCl) 60 mg Q6HR ORAL 09/11/18 12:00 09/18/18 11:59 09/11/18 18:10 Ondansetron HCl (Zofran) 4 mg Q6H PRN IVP Nausea & Vomiting 09/10/18 17:45 10/10/18 17:44 Polyethylene Glycol (Miralax) 17 gm HSPRN PRN ORAL Constipation 09/10/18 17:45 10/10/18 17:44 Promethazine HCl/ Codeine (Phenergan with Codeine) 5 ml Q4H PRN ORAL For Cough 09/11/18 12:15 10/11/18 12:14 Salmeterol Xinafoate/ Fluticasone (Advair 250/50 Diskus) 1 puffs Q4H PRN INH Shortness of Breath 09/11/18 08:15 10/11/18 08:14 Sodium Chloride 1,000 ml @ 75 mls/hr [id number] IV 09/10/18 17:33 10/10/18 17:32 09/11/18 11:55 Theophylline (Gee-Dur) 100 mg EVERY 12 HOURS ORAL 09/11/18 21:00 10/11/18 20:59 Zolpidem Tartrate (Ambien) 5 mg HSPRN PRN ORAL Insomnia 09/10/18 17:45 09/17/18 17:44 Allergies: Coded Allergies: PENTAMIDINE ISETHIONATE (Verified Allergy, Severe, palpitations, 08/27/17) AMPICILLIN (Verified Allergy, Unknown, hives, 01/05/18) Tolerated CEftriaxone 01/02/18 KETOROLAC (Verified Allergy, Unknown, 08/03/16) MORPHINE (Verified Allergy, Unknown, 08/03/16) PHENYTOIN (Verified Allergy, Unknown, 08/03/16) ROS Limited/Unobtainable: No Constitutional: Reports: no symptoms HEENT: Reports: no symptoms Cardiovascular: Reports: no symptoms Respiratory: Reports: cough Gastrointestinal/Abdominal: Reports: no symptoms Genitourinary: Reports: no symptoms 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: Reports: no symptoms Subjective 42 YO M with sickle cell dis admitted with cough. Now bronchitis and CHF. Cover for Int Med-DR Zarate. Wants dialudid and benadryl q 4 hr. Objective Last Vital Signs Date Time Temp Pulse Resp B/P (MAP) Pulse Ox O2 Delivery O2 Flow Rate FiO2 09/11/18 15:53 98.6 61 18 93/55 (68) 99 09/11/18 09:00 Nasal Cannula 6.0 09/10/18 18:30 28 General Appearance: WD/WN, no apparent distress, alert EENT: PERRL/EOMI, normal ENT inspection Neck: non-tender, normal alignment, supple, normal inspection Cardiovascular: normal peripheral pulses, normal rate, regular rhythm, no gallop/murmur, no JVD Respiratory/Chest: chest wall non-tender, crackles/rales, rhonchi - bilaterally , expiratory wheezing Abdomen: normal bowel sounds, non tender, soft, no organomegaly, no mass Extremities: normal range of motion, non-tender 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, no motor/sensory deficits Skin: normal pigmentation, warm/dry Laboratory Tests Test 09/11/18 05:36 09/11/18 07:00 White Blood Count 14.5 K/UL (4.8-10.8) H Red Blood Count 2.78 M/UL (4.70-6.10) L Hemoglobin 8.4 G/DL (14.2-18.0) L Hematocrit 25.2 % (42.0-52.0) L Mean Corpuscular Volume 91 FL (80-99) Mean Corpuscular Hemoglobin 29.2 PG (27.0-31.0) Mean Corpuscular Hemoglobin Concent 32.2 G/DL (32.0-36.0) Red Cell Distribution Width 17.7 % (11.6-14.8) H Platelet Count 413 K/UL (150-450) Mean Platelet Volume 5.9 FL (6.5-10.1) L Neutrophils (%) (Auto) 56.5 % (45.0-75.0) Lymphocytes (%) (Auto) 21.8 % (20.0-45.0) Monocytes (%) (Auto) 9.3 % (1.0-10.0) Eosinophils (%) (Auto) 8.9 % (0.0-3.0) H Basophils (%) (Auto) 3.6 % (0.0-2.0) H Sodium Level 142 MMOL/L (136-145) Potassium Level 4.6 MMOL/L (3.5-5.1) Chloride Level 108 MMOL/L (98-107) H Carbon Dioxide Level 28 MMOL/L (21-32) Anion Gap 6 mmol/L (5-15) Blood Urea Nitrogen 13 mg/dL (7-18) Creatinine 0.9 MG/DL (0.55-1.30) Estimat Glomerular Filtration Rate > 60 mL/min (>60) Glucose Level 81 MG/DL (74-106) Calcium Level 9.3 MG/DL (8.5-10.1) Total Bilirubin 0.6 MG/DL (0.2-1.0) Aspartate Amino Transf (AST/SGOT) 44 U/L (15-37) H Alanine Aminotransferase (ALT/SGPT) 62 U/L (12-78) Alkaline Phosphatase 192 U/L (46-116) H Lactate Dehydrogenase 322 U/L (81-234) H Total Protein 6.2 G/DL (6.4-8.2) L Albumin 3.4 G/DL (3.4-5.0) Globulin 2.8 g/dL Albumin/Globulin Ratio 1.2 (1.0-2.7) Microbiology Date/Time Source Procedure Growth Status 09/10/18 15:20 Nasopharynx Influenza Types A,B Antigen (LEANDRO) - Final Complete Intake and Output 09/10/18 09/11/18 18:59 06:59 Intake Total 1055 ml Balance 1055 ml Intake Oral 0 ml IV Total 1055 ml # Bowel Movements 1 Assessment/Plan Problem List: (1) Sickle cell disease (2) Anemia Assessment & Plan: Severe. 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
--- NOTE | 2018-09-11 19:30 | NUR ---
NURSE NOTES: Patient in bed, alert and oriented x4, on nasal cannula 6LPM. Patient wanted to have breathing treatment. Will contact MD. Instructed the use of call light. Call light and needs in reach. Bed in lowest position, lock engaged and alarm on Will continue to monitor.
[2018-09-11 20:00] VITALS: BP 122/84
--- NOTE | 2018-09-11 20:03 | NUR ---
NURSE NOTES: pt has order for benedryl Q6 HRS BUT PT REQUEST TO CHENGE FREQUENCY TO q4hrs, called Dr holland, he refused.
--- NOTE | 2018-09-11 20:11 | NUR ---
HAND-OFF: Report given to GRISELDA HERNANDEZ.
[2018-09-11] MEDS: Theophylline ER 100mg ORAL SCH (20:27)
[2018-09-11] MEDS ORDERED: Naloxone 0.4mg/ml Inj IVP PRN (20:45)
--- NOTE | 2018-09-11 21:00 | NUR ---
NURSE NOTES: Dr. Mckenna made aware for patient's request. Waiting for call back.
--- NOTE | 2018-09-11 21:55 | Consultation ---
History of Present Illness General Chief Complaint: General Complaint Present Illness Allergies: Coded Allergies: PENTAMIDINE ISETHIONATE (Verified Allergy, Severe, palpitations, 08/27/17) AMPICILLIN (Verified Allergy, Unknown, hives, 01/05/18) Tolerated CEftriaxone 01/02/18 KETOROLAC (Verified Allergy, Unknown, 08/03/16) MORPHINE (Verified Allergy, Unknown, 08/03/16) PHENYTOIN (Verified Allergy, Unknown, 08/03/16) Medication History Scheduled Acetaminophen/Diphenhydramine (Acetaminophen Pm Caplet), 2 TAB ORAL BEDTIME, ( Reported) Folic Acid* (Folic Acid*), 1 MG ORAL DAILY Gabapentin* (Gabapentin*), 350 MG ORAL THREE TIMES A DAY, (Reported) Hydromorphone HCl (Dilaudid), 14 MG ORAL EVERY 4 HOURS, (Reported) Hydroxyurea* (Hydrea*), 500 MG PO BID Lacosamide (Vimpat), 100 MG PO BID, (Reported) Methadone Hcl* (Methadone*), 60 MG PO Q6HR, (Reported) Scheduled PRN Diphenhydramine HCl (Benadryl), 50 MG PO Q4HR PRN for Itching, (Reported) Miscellaneous Medications Unable to Obtain Medications (Unable To Obtain Meds), (Reported) Discontinued Medications Phenobarbital (Phenobarbital), 16.2 MG PO BID, (Reported) Discontinued Reason: Pt stopped taking med Patient History Healthcare decision maker Resuscitation status Advanced Directive on File Physical Exam Last 24 Hour Vital Signs Date Time Temp Pulse Resp B/P (MAP) Pulse Ox O2 Delivery O2 Flow Rate FiO2 09/11/18 15:53 98.6 61 18 93/55 (68) 99 09/11/18 14:02 99.3 09/11/18 12:00 99.3 81 20 147/96 (113) 99 09/11/18 09:00 Nasal Cannula 6.0 09/11/18 08:00 98.8 79 19 134/92 (106) 98 09/11/18 04:00 98.3 81 18 156/99 (118) 100 09/11/18 00:00 98.5 85 17 148/103 (118) 100 Intake and Output 09/10/18 09/11/18 18:59 06:59 Intake Total 1055 ml Balance 1055 ml Intake Oral 0 ml IV Total 1055 ml # Bowel Movements 1 Laboratory Tests Test 09/11/18 05:36 09/11/18 07:00 White Blood Count 14.5 K/UL (4.8-10.8) H Red Blood Count 2.78 M/UL (4.70-6.10) L Hemoglobin 8.4 G/DL (14.2-18.0) L Hematocrit 25.2 % (42.0-52.0) L Mean Corpuscular Volume 91 FL (80-99) Mean Corpuscular Hemoglobin 29.2 PG (27.0-31.0) Mean Corpuscular Hemoglobin Concent 32.2 G/DL (32.0-36.0) Red Cell Distribution Width 17.7 % (11.6-14.8) H Platelet Count 413 K/UL (150-450) Mean Platelet Volume 5.9 FL (6.5-10.1) L Neutrophils (%) (Auto) 56.5 % (45.0-75.0) Lymphocytes (%) (Auto) 21.8 % (20.0-45.0) Monocytes (%) (Auto) 9.3 % (1.0-10.0) Eosinophils (%) (Auto) 8.9 % (0.0-3.0) H Basophils (%) (Auto) 3.6 % (0.0-2.0) H Sodium Level 142 MMOL/L (136-145) Potassium Level 4.6 MMOL/L (3.5-5.1) Chloride Level 108 MMOL/L (98-107) H Carbon Dioxide Level 28 MMOL/L (21-32) Anion Gap 6 mmol/L (5-15) Blood Urea Nitrogen 13 mg/dL (7-18) Creatinine 0.9 MG/DL (0.55-1.30) Estimat Glomerular Filtration Rate > 60 mL/min (>60) Glucose Level 81 MG/DL (74-106) Calcium Level 9.3 MG/DL (8.5-10.1) Total Bilirubin 0.6 MG/DL (0.2-1.0) Aspartate Amino Transf (AST/SGOT) 44 U/L (15-37) H Alanine Aminotransferase (ALT/SGPT) 62 U/L (12-78) Alkaline Phosphatase 192 U/L (46-116) H Lactate Dehydrogenase 322 U/L (81-234) H Total Protein 6.2 G/DL (6.4-8.2) L Albumin 3.4 G/DL (3.4-5.0) Globulin 2.8 g/dL Albumin/Globulin Ratio 1.2 (1.0-2.7) Height (Feet): 5 Height (Inches): 11.00 Weight (Pounds): 163 Medications Current Medications Medications (Trade) Dose Ordered Sig/Anthony Route PRN Reason Start Time Stop Time Status Last Admin Dose Admin Acetaminophen (Tylenol) 650 mg Q4H PRN ORAL fever 09/10/18 17:45 10/10/18 17:44 09/10/18 23:22 Al Hydroxide/Mg Hydroxide (Mylanta II) 30 ml Q6H PRN ORAL dyspepsia 09/10/18 17:45 10/10/18 17:44 Dextrose (Dextrose 50%) 25 ml Q30M PRN IV Hypoglycemia 09/10/18 18:15 10/10/18 18:05 Dextrose (Dextrose 50%) 50 ml Q30M PRN IV hypoglycemia 09/10/18 18:15 10/10/18 18:14 Diphenhydramine HCl (Benadryl) 25 mg Q6H PRN ORAL Itching 09/11/18 12:15 10/11/18 12:14 Diphenhydramine HCl (Benadryl) 50 mg Q6H PRN IVP Itching 09/11/18 12:45 10/11/18 04:59 09/11/18 20:28 Heparin Sodium (Porcine) (Heparin 5000 units/ml) 5,000 units EVERY 12 HOURS SUBQ 09/10/18 21:00 10/10/18 20:59 09/11/18 20:35 Hydralazine HCl (Apresoline) 25 mg Q6H PRN ORAL SBP>160 09/11/18 08:15 10/11/18 08:14 Hydromorphone HCl (Dilaudid) 2 mg Q3H PRN IV pain 4-6 09/10/18 17:45 09/17/18 17:44 09/11/18 13:32 Hydromorphone HCl (Dilaudid) 3 mg Q3H PRN IVP For Pain 7-10 09/10/18 17:45 09/17/18 17:44 09/11/18 20:34 Hydroxyurea (Hydrea) 500 mg BID ORAL 09/11/18 09:00 09/16/18 08:59 09/11/18 18:11 Lacosamide (Vimpat) 100 mg Q12H ORAL 09/11/18 06:00 10/11/18 05:59 09/11/18 18:13 Levofloxacin 100 ml @ 100 mls/hr Q24H IVPB 09/11/18 13:00 09/18/18 12:59 09/11/18 13:25 Lorazepam (Ativan 2mg/ml 1ml) 0.5 mg Q4H PRN IV For Anxiety 09/10/18 17:45 09/17/18 17:44 Methadone HCl (Methadone HCl) 60 mg Q6HR ORAL 09/11/18 12:00 09/18/18 11:59 09/11/18 18:10 Naloxone HCl (Narcan) 0.2 mg Q30M PRN IVP respritory depression RR<8/min 09/11/18 20:45 10/11/18 20:44 Ondansetron HCl (Zofran) 4 mg Q6H PRN IVP Nausea & Vomiting 09/10/18 17:45 10/10/18 17:44 Polyethylene Glycol (Miralax) 17 gm HSPRN PRN ORAL Constipation 09/10/18 17:45 10/10/18 17:44 Promethazine HCl/ Codeine (Phenergan with Codeine) 5 ml Q4H PRN ORAL For Cough 09/11/18 12:15 10/11/18 12:14 Salmeterol Xinafoate/ Fluticasone (Advair 250/50 Diskus) 1 puffs Q4H PRN INH Shortness of Breath 09/11/18 08:15 10/11/18 08:14 Sodium Chloride 1,000 ml @ 75 mls/hr [id number] IV 09/10/18 17:33 10/10/18 17:32 09/11/18 11:55 Theophylline (Gee-Dur) 100 mg EVERY 12 HOURS ORAL 09/11/18 21:00 10/11/18 20:59 09/11/18 20:27 Zolpidem Tartrate (Ambien) 5 mg HSPRN PRN ORAL Insomnia 09/10/18 17:45 09/17/18 17:44 Assessment/Plan Assessment/Plan Hematology/Oncology Consultation Requesting MD: Wan Zarate Date of Service: 09/11/18 Reason for consultation: Anemia and Leukocytosis HISTORY OF PRESENT ILLNESS: The patient has a history of sickle cell anemia. The patient was last admitted to [facility] in June of 2018. Please see history and physical and discharge summary dictated at that time. The patient now complains of back pain that radiates to the chest. The patient presented to [place] emergency room. The patient is admitted with chest pain and cough to rule out pneumonia. Hematology/Oncology was consulted for Anemia and Leukocytosis. Wbc14.5 and Hgb 8.4 PAST MEDICAL HISTORY: Sickle cell disease, History of seizure disorder, Avascular necrosis of the bilateral hips, Avascular necrosis of bilateral knees. PAST SURGICAL HISTORY: Tonsillectomy and adenoidectomy, Left tibia fibula fracture, Open reduction and internal fixation of left tibia fibula fracture, Pneumothorax. CURRENT MEDICATIONS:,Tylenol 650 mg p.o. daily, Benadryl 25 mg 2 tablets p.o. q.4 hours p.r.n, Folic acid 1 mg p.o. daily, Gabapentin 300 mg p.o. 3 times daily, Dilaudid 4 mg 3 tablets p.o. q.4 hours, Hydroxyurea 500 mg p.o. twice daily, Vimpat 100 mg p.o. twice bin, Methadone 60 mg p.o. q.6 hours. ALLERGIES: Ampicillin, Ketoralac, Morphine, Pentamidine, Phenytoin. SOCIAL HISTORY: The patient lives with his girlfriend and children. The patient is disabled. The patient denies tobacco or alcohol use. PHYSICAL EXAMINATION: VITAL SIGNS: Temperature 98.1, respirations 19, pulse 80,and blood pressure 127 /82. GENERAL: The patient is a well-developed and well nourished male, in no apparent distress. HEENT: Eyes, pupils are equal and responsive to light and accommodation. Extraocular movements are intact. NECK: Supple without lymphadenopathy. CHEST: Decreased crackles in bilateral bases. Otherwise, clear to auscultation without wheezes or rales. CARDIOVASCULAR: Regular rhythm and rate. S1 and S2 are normal without murmurs , rubs, or gallops. ABDOMEN: Soft, nontender, and nondistended. Positive bowel sounds. No evidence of hepatosplenomegaly. Currently, no rebound or guarding noted. EXTREMITIES: Negative for clubbing, cyanosis, or edema. RECTAL/GENITAL: Refused. NEUROLOGIC: Cranial nerves II through XII are grossly intact without focal deficits. Motor strength is 5/5 bilaterally. Deep tendon reflexes are 2+ plantar. REVIEW OF SYSTEMS: CONSTITUTIONAL: The patient denies weight loss or weight gain. The patient denies fevers or chills. HEENT: The patient denies ear or throat pain. The patient denies headache. CARDIOVASCULAR: The patient denies palpitations or chest pain. CHEST: The patient complains of cough productive of a greenish sputum as above. The patient denies wheezes. ABDOMEN: The patient denies nausea, vomiting, diarrhea, or constipation. GENITOURINARY: The patient denies dysuria or increased frequency of urination. NEUROMUSCULAR: The patient denies seizures or generalized weakness. LABORATORY STUDIES: WBC 15.3, hemoglobin 6.8, hematocrit 20.6, and platelets 463,000. ASSESSMENT/Recs # Anemia of chronic disease (or of iron deficiency) due to underlying chronic medical issues, multifactorial --> Anemia workup has been ordered --> No evidence of hemolysis is noted, peripheral smear has been reviewed. --> Hgb goal >7. Transfuse prn. --> Epogen or iron at this time is not particularly indicated --> Medications have been reviewed Leukocytosis. Likely related to underlying infection versus reactive process. --> have reviewed peripheral smear and bandemia/neutrophilia noted --> continue antibiotics if they have been started by ID team --> monitor for resolution # Probable bronchitis, the patient received ceftriaxone and doxycycline in the emergency room. -->A Pulmonary consultation has been obtained with Dr. Hanna Mckenna. We will follow recommendations of Pulmonary. # Sickle cell disease, the patient currently has severe anemia. The patient may require transfusion during the hospitalization # History of seizure disorder, continue gabapentin as above. # Pulmonary hypertension. 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 The timing of this note does not necessarily reflect the time of the patient was seen. Greatly appreciate consultation! Marco Dutton MD Sep 11, 2018 21:55
[2018-09-11] MEDS ORDERED: Tubing IV Blood Pump IV ONE (22:25)
[2018-09-11] MEDS ORDERED: 1/2 NS 1000ml IV ONE (22:25)
[2018-09-11] MEDS ORDERED: NS 275ml ONE (22:25)
[2018-09-12] VITALS: BP 119/79
[2018-09-12 04:00] VITALS: BP 137/83
[2018-09-12] MEDS: DiphenhydrAMINE 50mg/ml Inj IVP PRN ×4 (04:30→21:14)
[2018-09-12] MEDS: Lacosamide 50mg tablet ORAL SCH ×2 (06:06→18:15)
[2018-09-12 07:20] LABS: HEMATOCRIT 26.8 % (42.0-52.0); HEMOGLOBIN 8.6 G/DL (14.2-18.0); MEAN CORPUSCULAR VOLUME 90 FL (80-99); PLATELET COUNT 401 K/UL (150-450); RED BLOOD COUNT 2.96 M/UL (4.70-6.10); RED CELL DISTRIBUTION WIDTH 19.1 % (11.6-14.8); WHITE BLOOD COUNT 17.9 K/UL (4.8-10.8)
[2018-09-12 07:41] LABS: PHOSPHORUS 3.3 MG/DL (2.5-4.9)
[2018-09-12 07:45] LABS: ALANINE AMINOTRANSFERASE 60 U/L (12-78); ALBUMIN 3.3 G/DL (3.4-5.0); ALBUMIN/GLOBULIN RATIO 1.1 (1.0-2.7); ALKALINE PHOSPHATASE 194 U/L (46-116); ANION GAP 7 mmol/L (5-15); ASPARTATE AMINO TRANSFERASE 61 U/L (15-37); BLOOD UREA NITROGEN 17 mg/dL (7-18); CALCIUM 9.1 MG/DL (8.5-10.1); CARBON DIOXIDE 28 MMOL/L (21-32); CHLORIDE 102 MMOL/L (98-107); CREATININE 0.9 MG/DL (0.55-1.30); LACTATE DEHYDROGENASE 382 U/L (81-234); SODIUM 137 MMOL/L (136-145)
[2018-09-12 08:00] VITALS: BP 136/86
--- NOTE | 2018-09-12 08:00 | NUR ---
NURSE NOTES: Received report from April VILLALOBOS. pt a/a/o x4 laying in bed with no signs of distress or other issues at this time. IV on the right chest upper chest emil-cath. pt on O2 at 6L via n/c, with some wheezing, MD is aware. call light within reach. bed in lowest position, side rales up x2. I will be follow up as needed.
--- NOTE | 2018-09-12 08:10 | NUR ---
HAND-OFF: Report given to GRISELDA Lake.
[2018-09-12] MEDS: Hydroxyurea 500mg cap ORAL SCH ×2 (08:25→18:15)
[2018-09-12] MEDS: Theophylline ER 100mg ORAL SCH ×2 (08:25→23:04)
[2018-09-12] MEDS: Heparin 5000 units/ml inj SUBQ SCH ×2 (08:26→23:05)
--- NOTE | 2018-09-12 08:49 | General Progress Note ---
Assessment/Plan Assessment/Plan (1) Intractable pain (2) Avascular necrosis of femur head, left (3) Sickle cell disease and crisis (4) Avascular necrosis of femur head, right Patient will be continued on methadone and Dilaudid as needed. Pt was d/w Dr. Perera and he concurred. Subjective Date patient seen: Sep 12, 2018 Time patient seen: 07:30 - am Allergies: Coded Allergies: PENTAMIDINE ISETHIONATE (Verified Allergy, Severe, palpitations, 08/27/17) AMPICILLIN (Verified Allergy, Unknown, hives, 01/05/18) Tolerated CEftriaxone 01/02/18 KETOROLAC (Verified Allergy, Unknown, 08/03/16) MORPHINE (Verified Allergy, Unknown, 08/03/16) PHENYTOIN (Verified Allergy, Unknown, 08/03/16) Subjective Constitutional: Reports: chills HEENT: Denies: blurred vision, double vision, ear discharge, ear pain, eye pain , mouth pain, mouth swelling, nose congestion, nose pain, tearing, throat pain, throat swelling Cardiovascular: Denies: chest pain, edema, irregular heart rate, lightheadedness, palpitations, syncope Respiratory: Denies: SOB at rest, SOB with excertion, cough, orthopnea, shortness of breath, sputum, stridor, wheezing Gastrointestinal/Abdominal: Denies: abdomen distended, abdominal pain, black stools, blood in stool, constipated, diarrhea, difficulty swallowing, nausea, poor appetite, poor fluid intake, rectal bleeding, tarry stools, vomiting Genitourinary: Denies: burning, discharge, flank pain, frequency, hematuria, incontinence, pain, urgency 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: Denies: anxiety, depressed, emotional problems, headache, numbness, paresthesia, pre-existing deficit, seizure, tingling, tremors, weakness Endocrine: Reports: other, Denies: excessive sweating, flushing, increased hunger, increased thirst, increased urine, intolerance to cold, intolerance to heat, unexplained weight gain, unexplained weight loss Hematologic/Lymphatic: Denies: anemia, easy bleeding, easy bruising Subjective Patient is in bed showing no signs of pain or distress. Pain has been tolerated on the Methadone and Dilaudid. No new complaints at this time. Objective Last 24 Hour Vital Signs Date Time Temp Pulse Resp B/P (MAP) Pulse Ox O2 Delivery O2 Flow Rate FiO2 2/27/19 04:00 98.3 75 18 137/83 (101) 96 09/12/18 00:00 99.4 86 18 119/79 (92) 97 09/11/18 21:00 Nasal Cannula 6.0 09/11/18 20:00 100.1 89 19 122/84 (97) 97 09/11/18 15:53 98.6 61 18 93/55 (68) 99 09/11/18 14:02 99.3 09/11/18 12:00 99.3 81 20 147/96 (113) 99 09/11/18 09:00 Nasal Cannula 6.0 Intake and Output 09/11/18 09/12/18 19:00 07:00 Intake Total 845 ml 825 ml Balance 845 ml 825 ml IV Total 845 ml 825 ml # Bowel Movements 1 Laboratory Tests 09/12/18 06:40: White Blood Count 17.9H, Red Blood Count 2.96L, Hemoglobin 8.6L, Hematocrit 26.8L, Mean Corpuscular Volume 90, Mean Corpuscular Hemoglobin 29.0, Mean Corpuscular Hemoglobin Concent 32.1, Red Cell Distribution Width 19.1H, Platelet Count 401, Mean Platelet Volume 6.1L, Neutrophils (%) (Auto) , Lymphocytes (%) (Auto) , Monocytes (%) (Auto) , Eosinophils (%) (Auto) , Basophils (%) (Auto) , Neutrophils % (Manual) [Pending], Lymphocytes % (Manual) [Pending], Platelet Estimate [Pending], Platelet Morphology [Pending], Erythrocyte Sedimentation Rate 23H, Sodium Level 137, Potassium Level 4.0, Chloride Level 102, Carbon Dioxide Level 28, Anion Gap 7, Blood Urea Nitrogen 17 , Creatinine 0.9, Estimat Glomerular Filtration Rate > 60, Glucose Level 80, Calcium Level 9.1, Phosphorus Level 3.3, Magnesium Level 1.4L, Total Bilirubin 1.0, Aspartate Amino Transf (AST/SGOT) 61H, Alanine Aminotransferase (ALT/SGPT) 60, Alkaline Phosphatase 194H, Lactate Dehydrogenase 382H, C-Reactive Protein, Quantitative 7.4H, Total Protein 6.4, Albumin 3.3L, Globulin 3.1, Albumin/ Globulin Ratio 1.1 Height (Feet): 5 Height (Inches): 11.00 Weight (Pounds): 151 Objective General Appearance: no apparent distress, alert EENT: PERRL/EOMI, normal ENT inspection Neck: non-tender, normal alignment Cardiovascular: normal rate, regular rhythm Respiratory/Chest: decreased breath sounds Abdomen: non tender, soft Extremities: non-tender Edema: no edema noted Arm (L), no edema noted Arm (R), no edema noted Leg (L), no edema noted Leg (R), no edema noted Pedal (L), no edema noted Pedal (R), no edema noted Generalized Neurologic: alert, oriented x 3 Skin: warm/dry Cj Anderson Sep 12, 2018 08:49
[2018-09-12 12:00] VITALS: BP 119/88
--- NOTE | 2018-09-12 12:08 | Internal Med Progress Note ---
Subjective Date of Service: Sep 12, 2018 Physician Name Mehdi Rosales Attending Physician Wan Zarate MD Current Medications Medications (Trade) Dose Ordered Sig/Anthony Route PRN Reason Start Time Stop Time Status Last Admin Dose Admin Acetaminophen (Tylenol) 650 mg Q4H PRN ORAL fever 09/10/18 17:45 10/10/18 17:44 09/10/18 23:22 Al Hydroxide/Mg Hydroxide (Mylanta II) 30 ml Q6H PRN ORAL dyspepsia 09/10/18 17:45 10/10/18 17:44 Dextrose (Dextrose 50%) 25 ml Q30M PRN IV Hypoglycemia 09/10/18 18:15 10/10/18 18:05 Dextrose (Dextrose 50%) 50 ml Q30M PRN IV hypoglycemia 09/10/18 18:15 10/10/18 18:14 Diphenhydramine HCl (Benadryl) 25 mg Q6H PRN ORAL Itching 09/11/18 12:15 10/11/18 12:14 Diphenhydramine HCl (Benadryl) 50 mg Q6H PRN IVP Itching 09/11/18 12:45 10/11/18 04:59 09/12/18 11:34 Heparin Sodium (Porcine) (Heparin 5000 units/ml) 5,000 units EVERY 12 HOURS SUBQ 09/10/18 21:00 10/10/18 20:59 09/12/18 08:26 Hydralazine HCl (Apresoline) 25 mg Q6H PRN ORAL SBP>160 09/11/18 08:15 10/11/18 08:14 Hydromorphone HCl (Dilaudid) 2 mg Q3H PRN IV pain 4-6 09/10/18 17:45 09/17/18 17:44 09/11/18 13:32 Hydromorphone HCl (Dilaudid) 3 mg Q3H PRN IVP For Pain 7-10 09/10/18 17:45 09/17/18 17:44 09/12/18 11:35 Hydroxyurea (Hydrea) 500 mg BID ORAL 09/11/18 09:00 09/16/18 08:59 09/12/18 08:25 Lacosamide (Vimpat) 100 mg Q12H ORAL 2/26/19 06:00 10/11/18 05:59 09/12/18 06:06 Levofloxacin 100 ml @ 100 mls/hr Q24H IVPB 09/11/18 13:00 09/18/18 12:59 09/11/18 13:25 Lorazepam (Ativan 2mg/ml 1ml) 0.5 mg Q4H PRN IV For Anxiety 09/10/18 17:45 09/17/18 17:44 Methadone HCl (Methadone HCl) 60 mg Q6HR ORAL 09/11/18 12:00 09/18/18 11:59 09/12/18 06:03 Naloxone HCl (Narcan) 0.2 mg Q30M PRN IVP respritory depression RR<8/min 09/11/18 20:45 10/11/18 20:44 Ondansetron HCl (Zofran) 4 mg Q6H PRN IVP Nausea & Vomiting 09/10/18 17:45 10/10/18 17:44 Polyethylene Glycol (Miralax) 17 gm HSPRN PRN ORAL Constipation 09/10/18 17:45 10/10/18 17:44 Promethazine HCl/ Codeine (Phenergan with Codeine) 5 ml Q4H PRN ORAL For Cough 09/11/18 12:15 10/11/18 12:14 Salmeterol Xinafoate/ Fluticasone (Advair 250/50 Diskus) 1 puffs Q4H PRN INH Shortness of Breath 09/11/18 08:15 10/11/18 08:14 Sodium Chloride 1,000 ml @ 75 mls/hr [id number] IV 09/10/18 17:33 10/10/18 17:32 09/12/18 03:33 Theophylline (Gee-Dur) 100 mg EVERY 12 HOURS ORAL 09/11/18 21:00 10/11/18 20:59 09/12/18 08:25 Zolpidem Tartrate (Ambien) 5 mg HSPRN PRN ORAL Insomnia 09/10/18 17:45 09/17/18 17:44 Allergies: Coded Allergies: PENTAMIDINE ISETHIONATE (Verified Allergy, Severe, palpitations, 08/27/17) AMPICILLIN (Verified Allergy, Unknown, hives, 01/05/18) Tolerated CEftriaxone 6/19/18 KETOROLAC (Verified Allergy, Unknown, 08/03/16) MORPHINE (Verified Allergy, Unknown, 08/03/16) PHENYTOIN (Verified Allergy, Unknown, 08/03/16) ROS Limited/Unobtainable: No Constitutional: Reports: no symptoms HEENT: Reports: no symptoms Cardiovascular: Reports: no symptoms Respiratory: Reports: no symptoms Gastrointestinal/Abdominal: Reports: no symptoms Genitourinary: Reports: no symptoms 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: Reports: no symptoms Subjective 42 YO M with sickle cell dis admitted with cough. Now bronchitis and CHF. Cover for Int Med-DR Zarate. Objective Last Vital Signs Date Time Temp Pulse Resp B/P (MAP) Pulse Ox O2 Delivery O2 Flow Rate FiO2 09/12/18 10:22 98 Nasal Cannula 5.0 40 09/12/18 08:48 98.3 09/12/18 04:00 75 18 137/83 (101) Laboratory Tests Test 09/12/18 06:40 White Blood Count 17.9 K/UL (4.8-10.8) H Red Blood Count 2.96 M/UL (4.70-6.10) L Hemoglobin 8.6 G/DL (14.2-18.0) L Hematocrit 26.8 % (42.0-52.0) L Mean Corpuscular Volume 90 FL (80-99) Mean Corpuscular Hemoglobin 29.0 PG (27.0-31.0) Mean Corpuscular Hemoglobin Concent 32.1 G/DL (32.0-36.0) Red Cell Distribution Width 19.1 % (11.6-14.8) H Platelet Count 401 K/UL (150-450) Mean Platelet Volume 6.1 FL (6.5-10.1) L Neutrophils (%) (Auto) % (45.0-75.0) Lymphocytes (%) (Auto) % (20.0-45.0) Monocytes (%) (Auto) % (1.0-10.0) Eosinophils (%) (Auto) % (0.0-3.0) Basophils (%) (Auto) % (0.0-2.0) Differential Total Cells Counted 100 Neutrophils % (Manual) 81 % (45-75) H Lymphocytes % (Manual) 8 % (20-45) L Monocytes % (Manual) 7 % (1-10) Eosinophils % (Manual) 2 % (0-3) Basophils % (Manual) 1 % (0-2) Band Neutrophils 1 % (0-8) Platelet Estimate Adequate Platelet Morphology See comment Giant Platelets Rare Polychromasia 1+ Anisocytosis 2+ Target Cells 1+ Erythrocyte Sedimentation Rate 23 MM/HR (0-15) H Sodium Level 137 MMOL/L (136-145) Potassium Level 4.0 MMOL/L (3.5-5.1) Chloride Level 102 MMOL/L (98-107) Carbon Dioxide Level 28 MMOL/L (21-32) Anion Gap 7 mmol/L (5-15) Blood Urea Nitrogen 17 mg/dL (7-18) Creatinine 0.9 MG/DL (0.55-1.30) Estimat Glomerular Filtration Rate > 60 mL/min (>60) Glucose Level 80 MG/DL (74-106) Calcium Level 9.1 MG/DL (8.5-10.1) Phosphorus Level 3.3 MG/DL (2.5-4.9) Magnesium Level 1.4 MG/DL (1.8-2.4) L Total Bilirubin 1.0 MG/DL (0.2-1.0) Aspartate Amino Transf (AST/SGOT) 61 U/L (15-37) H Alanine Aminotransferase (ALT/SGPT) 60 U/L (12-78) Alkaline Phosphatase 194 U/L (46-116) H Lactate Dehydrogenase 382 U/L (81-234) H C-Reactive Protein, Quantitative 7.4 mg/dL (0.00-0.90) H Total Protein 6.4 G/DL (6.4-8.2) Albumin 3.3 G/DL (3.4-5.0) L Globulin 3.1 g/dL Albumin/Globulin Ratio 1.1 (1.0-2.7) Microbiology Date/Time Source Procedure Growth Status 09/10/18 15:20 Blood Blood Culture - Preliminary NO GROWTH AFTER 24 HOURS Resulted 09/10/18 15:05 Blood Blood Culture - Preliminary NO GROWTH AFTER 24 HOURS Resulted 09/10/18 15:20 Nasopharynx Influenza Types A,B Antigen (LEANDRO) - Final Complete Intake and Output 09/11/18 09/12/18 19:00 07:00 Intake Total 845 ml 825 ml Balance 845 ml 825 ml IV Total 845 ml 825 ml # Bowel Movements 1 Objective General Appearance: WD/WN, no apparent distress, alert EENT: PERRL/EOMI, normal ENT inspection Neck: non-tender, normal alignment, supple, normal inspection Cardiovascular: normal peripheral pulses, normal rate, regular rhythm, no gallop/murmur, no JVD Respiratory/Chest: chest wall non-tender, crackles/rales, rhonchi - bilaterally , expiratory wheezing Abdomen: normal bowel sounds, non tender, soft, no organomegaly, no mass Extremities: normal range of motion, non-tender 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 S/P transfusion 1 unit PRBC 09/10/18 (3) Sickle cell crisis Assessment & Plan: Pain management per pain team (4) Seizure disorder (5) Pulmonary HTN Assessment & Plan: Continue hydralazine (6) Avascular necrosis of femur head, right (7) Avascular necrosis of femur head, left (8) Purulent bronchitis Assessment & Plan: Continue levaquin per ID (9) severe diastolic heart disease Status: not improved Mehdi Rosales MD Sep 12, 2018 12:08
[2018-09-12] MEDS ORDERED: Albuterol/Ipratropium 3ml neb HHN PRN (12:15)
--- NOTE | 2018-09-12 12:22 | Infectious Diseases Prog Note ---
Assessment/Plan Assessment/Plan Abx: Levaquin 09/11- Ceftriaxone x1 09/10 Doxycycline x1 09/10 Assessment: Acute sickle cell crisis Acute bronchitis -CXR: Suspected congestive heart failure. Suspect chronic interstitial disease as well -influenza sc neg -sp cx p Afebrile Leukocytosis, incrased- reactive in the setting of acute sickle crisis -Bcx NTD sickle cell anemia seizure disorder b/l DVT avascular necrosis b/l hips s/p tonsillectomy L tibia/fibula fx s/p ORIF pneumothorax COPD/asthma on home O2 HTN dCHF severe pHTN Plan: -Continue Levaquin #2 (abx d #3/) -09/10 SP Ceftriaxone and Doxycycline x1 -f/u cx -Monitor CBC/CMP, temperatures -CXR am Thank you for this consultation. Will continue to follow along with you. Discussed with RN. Subjective Allergies: Coded Allergies: PENTAMIDINE ISETHIONATE (Verified Allergy, Severe, palpitations, 08/27/17) AMPICILLIN (Verified Allergy, Unknown, hives, 01/05/18) Tolerated CEftriaxone 01/02/18 KETOROLAC (Verified Allergy, Unknown, 08/03/16) MORPHINE (Verified Allergy, Unknown, 08/03/16) PHENYTOIN (Verified Allergy, Unknown, 08/03/16) Subjective Tm 100.1 wbc incrased Objective Vital Signs Last 24 Hour Vital Signs Date Time Temp Pulse Resp B/P (MAP) Pulse Ox O2 Delivery O2 Flow Rate FiO2 09/12/18 10:22 98 Nasal Cannula 5.0 40 09/12/18 10:21 Nasal Cannula 5.0 40 09/12/18 08:48 98.3 09/12/18 04:00 98.3 75 18 137/83 (101) 96 09/12/18 00:00 99.4 86 18 119/79 (92) 97 09/11/18 21:00 Nasal Cannula 6.0 09/11/18 20:00 100.1 89 19 122/84 (97) 97 09/11/18 15:53 98.6 61 18 93/55 (68) 99 09/11/18 14:02 99.3 Height (Feet): 5 Height (Inches): 11.00 Weight (Pounds): 151 Objective GENERAL: The patient is a well-developed and well nourished male, in no apparent distress. HEENT: Eyes, pupils are equal and responsive to light and accommodation. Extraocular movements are intact. NECK: Supple without lymphadenopathy. CHEST: Decreased crackles in bilateral bases. Otherwise, clear to auscultation without wheezes or rales. CARDIOVASCULAR: Regular rhythm and rate. S1 and S2 are normal without murmurs, rubs, or gallops. ABDOMEN: Soft, nontender, and nondistended. Positive bowel sounds. No evidence of hepatosplenomegaly. Currently, no rebound or guarding noted. EXTREMITIES: Negative for clubbing, cyanosis, or edema. Microbiology Date/Time Source Procedure Growth Status 09/10/18 15:20 Blood Blood Culture - Preliminary NO GROWTH AFTER 24 HOURS Resulted 09/10/18 15:05 Blood Blood Culture - Preliminary NO GROWTH AFTER 24 HOURS Resulted 09/10/18 15:20 Nasopharynx Influenza Types A,B Antigen (LEANDRO) - Final Complete Laboratory Tests Test 09/12/18 06:40 White Blood Count 17.9 K/UL (4.8-10.8) H Red Blood Count 2.96 M/UL (4.70-6.10) L Hemoglobin 8.6 G/DL (14.2-18.0) L Hematocrit 26.8 % (42.0-52.0) L Mean Corpuscular Volume 90 FL (80-99) Mean Corpuscular Hemoglobin 29.0 PG (27.0-31.0) Mean Corpuscular Hemoglobin Concent 32.1 G/DL (32.0-36.0) Red Cell Distribution Width 19.1 % (11.6-14.8) H Platelet Count 401 K/UL (150-450) Mean Platelet Volume 6.1 FL (6.5-10.1) L Neutrophils (%) (Auto) % (45.0-75.0) Lymphocytes (%) (Auto) % (20.0-45.0) Monocytes (%) (Auto) % (1.0-10.0) Eosinophils (%) (Auto) % (0.0-3.0) Basophils (%) (Auto) % (0.0-2.0) Differential Total Cells Counted 100 Neutrophils % (Manual) 81 % (45-75) H Lymphocytes % (Manual) 8 % (20-45) L Monocytes % (Manual) 7 % (1-10) Eosinophils % (Manual) 2 % (0-3) Basophils % (Manual) 1 % (0-2) Band Neutrophils 1 % (0-8) Platelet Estimate Adequate Platelet Morphology See comment Giant Platelets Rare Polychromasia 1+ Anisocytosis 2+ Target Cells 1+ Erythrocyte Sedimentation Rate 23 MM/HR (0-15) H Sodium Level 137 MMOL/L (136-145) Potassium Level 4.0 MMOL/L (3.5-5.1) Chloride Level 102 MMOL/L (98-107) Carbon Dioxide Level 28 MMOL/L (21-32) Anion Gap 7 mmol/L (5-15) Blood Urea Nitrogen 17 mg/dL (7-18) Creatinine 0.9 MG/DL (0.55-1.30) Estimat Glomerular Filtration Rate > 60 mL/min (>60) Glucose Level 80 MG/DL (74-106) Calcium Level 9.1 MG/DL (8.5-10.1) Phosphorus Level 3.3 MG/DL (2.5-4.9) Magnesium Level 1.4 MG/DL (1.8-2.4) L Total Bilirubin 1.0 MG/DL (0.2-1.0) Aspartate Amino Transf (AST/SGOT) 61 U/L (15-37) H Alanine Aminotransferase (ALT/SGPT) 60 U/L (12-78) Alkaline Phosphatase 194 U/L (46-116) H Lactate Dehydrogenase 382 U/L (81-234) H C-Reactive Protein, Quantitative 7.4 mg/dL (0.00-0.90) H Total Protein 6.4 G/DL (6.4-8.2) Albumin 3.3 G/DL (3.4-5.0) L Globulin 3.1 g/dL Albumin/Globulin Ratio 1.1 (1.0-2.7) Current Medications Medications (Trade) Dose Ordered Sig/Anthony Route PRN Reason Start Time Stop Time Status Last Admin Dose Admin Acetaminophen (Tylenol) 650 mg Q4H PRN ORAL fever 09/10/18 17:45 10/10/18 17:44 09/10/18 23:22 Al Hydroxide/Mg Hydroxide (Mylanta II) 30 ml Q6H PRN ORAL dyspepsia 09/10/18 17:45 10/10/18 17:44 Albuterol/ Ipratropium (Albuterol/ Ipratropium) 3 ml Q4H PRN HHN Shortness of Breath 09/12/18 12:15 09/17/18 12:14 UNV Dextrose (Dextrose 50%) 25 ml Q30M PRN IV Hypoglycemia 09/10/18 18:15 10/10/18 18:05 Dextrose (Dextrose 50%) 50 ml Q30M PRN IV hypoglycemia 09/10/18 18:15 10/10/18 18:14 Diphenhydramine HCl (Benadryl) 25 mg Q6H PRN ORAL Itching 09/11/18 12:15 10/11/18 12:14 Diphenhydramine HCl (Benadryl) 50 mg Q6H PRN IVP Itching 09/11/18 12:45 10/11/18 04:59 09/12/18 11:34 Heparin Sodium (Porcine) (Heparin 5000 units/ml) 5,000 units EVERY 12 HOURS SUBQ 09/10/18 21:00 10/10/18 20:59 09/12/18 08:26 Hydralazine HCl (Apresoline) 25 mg Q6H PRN ORAL SBP>160 09/11/18 08:15 10/11/18 08:14 Hydromorphone HCl (Dilaudid) 2 mg Q3H PRN IV pain 4-6 09/10/18 17:45 09/17/18 17:44 09/11/18 13:32 Hydromorphone HCl (Dilaudid) 3 mg Q3H PRN IVP For Pain 7-10 09/10/18 17:45 09/17/18 17:44 09/12/18 11:35 Hydroxyurea (Hydrea) 500 mg BID ORAL 09/11/18 09:00 09/16/18 08:59 09/12/18 08:25 Lacosamide (Vimpat) 100 mg Q12H ORAL 09/11/18 06:00 10/11/18 05:59 09/12/18 06:06 Levofloxacin 100 ml @ 100 mls/hr Q24H IVPB 09/11/18 13:00 09/18/18 12:59 09/11/18 13:25 Lorazepam (Ativan 2mg/ml 1ml) 0.5 mg Q4H PRN IV For Anxiety 09/10/18 17:45 09/17/18 17:44 Methadone HCl (Methadone HCl) 60 mg Q6HR ORAL 09/11/18 12:00 09/18/18 11:59 09/12/18 06:03 Naloxone HCl (Narcan) 0.2 mg Q30M PRN IVP respritory depression RR<8/min 09/11/18 20:45 10/11/18 20:44 Ondansetron HCl (Zofran) 4 mg Q6H PRN IVP Nausea & Vomiting 09/10/18 17:45 10/10/18 17:44 Polyethylene Glycol (Miralax) 17 gm HSPRN PRN ORAL Constipation 09/10/18 17:45 10/10/18 17:44 Promethazine HCl/ Codeine (Phenergan with Codeine) 5 ml Q4H PRN ORAL For Cough 09/11/18 12:15 10/11/18 12:14 Salmeterol Xinafoate/ Fluticasone (Advair 250/50 Diskus) 1 puffs Q4H PRN INH Shortness of Breath 09/11/18 08:15 10/11/18 08:14 Sodium Chloride 1,000 ml @ 75 mls/hr [id number] IV 09/10/18 17:33 10/10/18 17:32 09/12/18 03:33 Theophylline (Gee-Dur) 100 mg EVERY 12 HOURS ORAL 09/11/18 21:00 10/11/18 20:59 09/12/18 08:25 Zolpidem Tartrate (Ambien) 5 mg HSPRN PRN ORAL Insomnia 09/10/18 17:45 09/17/18 17:44 Isadora Frankel M.D. Sep 12, 2018 12:22
--- NOTE | 2018-09-12 13:28 | Pulmonology Progress Note ---
Assessment/Plan Problems: (1) Pneumonia (2) Interstitial lung disease (3) Pulmonary HTN (4) Sickle cell crisis (5) severe diastolic heart disease Assessment/Plan respiratory treatment q4 check sputum analgesics ID evaluation IV abx f/u LDH titrate fio2 to sat increase benadryl to q4 Subjective ROS Limited/Unobtainable: No Constitutional: Reports: no symptoms HEENT: Repors: no symptoms Allergies: Coded Allergies: PENTAMIDINE ISETHIONATE (Verified Allergy, Severe, palpitations, 08/27/17) AMPICILLIN (Verified Allergy, Unknown, hives, 01/05/18) Tolerated CEftriaxone 01/02/18 KETOROLAC (Verified Allergy, Unknown, 08/03/16) MORPHINE (Verified Allergy, Unknown, 08/03/16) PHENYTOIN (Verified Allergy, Unknown, 08/03/16) Objective Last 24 Hour Vital Signs Date Time Temp Pulse Resp B/P (MAP) Pulse Ox O2 Delivery O2 Flow Rate FiO2 09/12/18 12:05 98.2 09/12/18 12:00 98.2 73 19 119/88 (98) 98 09/12/18 10:22 98 Nasal Cannula 5.0 40 09/12/18 10:21 Nasal Cannula 5.0 40 09/12/18 08:00 98.0 80 20 136/86 (103) 98 09/12/18 04:00 98.3 75 18 137/83 (101) 96 09/12/18 00:00 99.4 86 18 119/79 (92) 97 09/11/18 21:00 Nasal Cannula 6.0 09/11/18 20:00 100.1 89 19 122/84 (97) 97 09/11/18 15:53 98.6 61 18 93/55 (68) 99 09/11/18 14:02 99.3 Intake and Output 09/11/18 09/12/18 19:00 07:00 Intake Total 845 ml 825 ml Balance 845 ml 825 ml IV Total 845 ml 825 ml # Bowel Movements 1 General Appearance: WD/WN HEENT: normocephalic, atraumatic Respiratory/Chest: chest wall non-tender, lungs clear Cardiovascular: normal peripheral pulses, normal rate Abdomen: normal bowel sounds, soft, non tender Genitourinary: normal external genitalia Extremities: no clubbing Skin: no rash Microbiology Date/Time Source Procedure Growth Status 09/10/18 15:20 Blood Blood Culture - Preliminary NO GROWTH AFTER 24 HOURS Resulted 09/10/18 15:05 Blood Blood Culture - Preliminary NO GROWTH AFTER 24 HOURS Resulted 09/10/18 15:20 Nasopharynx Influenza Types A,B Antigen (LEANDRO) - Final Complete Laboratory Tests 09/12/18 06:40: White Blood Count 17.9H, Red Blood Count 2.96L, Hemoglobin 8.6L, Hematocrit 26.8L, Mean Corpuscular Volume 90, Mean Corpuscular Hemoglobin 29.0, Mean Corpuscular Hemoglobin Concent 32.1, Red Cell Distribution Width 19.1H, Platelet Count 401, Mean Platelet Volume 6.1L, Neutrophils (%) (Auto) , Lymphocytes (%) (Auto) , Monocytes (%) (Auto) , Eosinophils (%) (Auto) , Basophils (%) (Auto) , Differential Total Cells Counted 100, Neutrophils % ( Manual) 81H, Lymphocytes % (Manual) 8L, Monocytes % (Manual) 7, Eosinophils % ( Manual) 2, Basophils % (Manual) 1, Band Neutrophils 1, Platelet Estimate Adequate, Platelet Morphology See comment, Giant Platelets Rare, Polychromasia 1 +, Anisocytosis 2+, Target Cells 1+, Erythrocyte Sedimentation Rate 23H, Sodium Level 137, Potassium Level 4.0, Chloride Level 102, Carbon Dioxide Level 28, Anion Gap 7, Blood Urea Nitrogen 17, Creatinine 0.9, Estimat Glomerular Filtration Rate > 60, Glucose Level 80, Calcium Level 9.1, Phosphorus Level 3.3 , Magnesium Level 1.4L, Total Bilirubin 1.0, Aspartate Amino Transf (AST/SGOT) 61H, Alanine Aminotransferase (ALT/SGPT) 60, Alkaline Phosphatase 194H, Lactate Dehydrogenase 382H, C-Reactive Protein, Quantitative 7.4H, Total Protein 6.4, Albumin 3.3L, Globulin 3.1, Albumin/Globulin Ratio 1.1 Current Medications Medications (Trade) Dose Ordered Sig/Anthony Route PRN Reason Start Time Stop Time Status Last Admin Dose Admin Acetaminophen (Tylenol) 650 mg Q4H PRN ORAL fever 09/10/18 17:45 10/10/18 17:44 09/10/18 23:22 Al Hydroxide/Mg Hydroxide (Mylanta II) 30 ml Q6H PRN ORAL dyspepsia 09/10/18 17:45 3/27/19 17:44 Albuterol/ Ipratropium (Albuterol/ Ipratropium) 3 ml Q4H PRN HHN Shortness of Breath 09/12/18 12:15 09/17/18 12:14 Dextrose (Dextrose 50%) 25 ml Q30M PRN IV Hypoglycemia 09/10/18 18:15 10/10/18 18:05 Dextrose (Dextrose 50%) 50 ml Q30M PRN IV hypoglycemia 09/10/18 18:15 10/10/18 18:14 Diphenhydramine HCl (Benadryl) 25 mg Q4H PRN ORAL Itching 09/12/18 13:15 10/12/18 13:14 Diphenhydramine HCl (Benadryl) 50 mg Q4H PRN IVP Itching 09/12/18 15:00 10/12/18 14:59 Heparin Sodium (Porcine) (Heparin 5000 units/ml) 5,000 units EVERY 12 HOURS SUBQ 09/10/18 21:00 10/10/18 20:59 09/12/18 08:26 Hydralazine HCl (Apresoline) 25 mg Q6H PRN ORAL SBP>160 09/11/18 08:15 10/11/18 08:14 Hydromorphone HCl (Dilaudid) 2 mg Q3H PRN IV pain 4-6 09/10/18 17:45 09/17/18 17:44 09/11/18 13:32 Hydromorphone HCl (Dilaudid) 3 mg Q3H PRN IVP For Pain 7-10 09/10/18 17:45 09/17/18 17:44 09/12/18 11:35 Hydroxyurea (Hydrea) 500 mg BID ORAL 09/11/18 09:00 09/16/18 08:59 09/12/18 08:25 Lacosamide (Vimpat) 100 mg Q12H ORAL 09/11/18 06:00 10/11/18 05:59 09/12/18 06:06 Levofloxacin 100 ml @ 100 mls/hr Q24H IVPB 09/11/18 13:00 09/18/18 12:59 09/12/18 12:49 Lorazepam (Ativan 2mg/ml 1ml) 0.5 mg Q4H PRN IV For Anxiety 09/10/18 17:45 09/17/18 17:44 Methadone HCl (Methadone HCl) 60 mg Q6HR ORAL 09/11/18 12:00 09/18/18 11:59 09/12/18 12:49 Naloxone HCl (Narcan) 0.2 mg Q30M PRN IVP respritory depression RR<8/min 09/11/18 20:45 10/11/18 20:44 Ondansetron HCl (Zofran) 4 mg Q6H PRN IVP Nausea & Vomiting 09/10/18 17:45 10/10/18 17:44 Polyethylene Glycol (Miralax) 17 gm HSPRN PRN ORAL Constipation 09/10/18 17:45 10/10/18 17:44 Promethazine HCl/ Codeine (Phenergan with Codeine) 5 ml Q4H PRN ORAL For Cough 09/11/18 12:15 10/11/18 12:14 Salmeterol Xinafoate/ Fluticasone (Advair 250/50 Diskus) 1 puffs Q4H PRN INH Shortness of Breath 09/11/18 08:15 10/11/18 08:14 Sodium Chloride 1,000 ml @ 75 mls/hr [id number] IV 09/10/18 17:33 10/10/18 17:32 09/12/18 03:33 Theophylline (Gee-Dur) 100 mg EVERY 12 HOURS ORAL 09/11/18 21:00 10/11/18 20:59 09/12/18 08:25 Zolpidem Tartrate (Ambien) 5 mg HSPRN PRN ORAL Insomnia 09/10/18 17:45 09/17/18 17:44 Hanna Mckenna MD Sep 12, 2018 13:28
[2018-09-12 16:00] VITALS: BP 128/86
--- NOTE | 2018-09-12 16:11 | NUR ---
CASE MANAGEMENT:REVIEW 09/12/18 SI: PNEUMONIA. SICKLE CELL CRISIS 98.2 73 19 119/88 98% ON 5L/NC WBC+17.9 H/H-8.6/26.8 IS: IV LEVAQUIN Q24 NAVNEET-DUR PO Q12 METHADONE 60MG PO Q6HRS HYDREA PO BID VIMPAT PO Q12 HEPARIN SQ Q12 IV DILAUDID Q3HRS PRN PAIN IVF@75/HR : MED/SURG STATUS 3 EAST DCP: PATIENT IS FROM HOME
--- NOTE | 2018-09-12 16:43 | NUR ---
*-* INSURANCE *-* ALL CLINICALS HAVE BEEN FAXED TO: [employer] P:[phone] F:[phone]
--- NOTE | 2018-09-12 17:30 | NUR ---
NURSE NOTES: RN Called RT for breathing tx due to wheezing however pt REFUSED at this time. he stated that he will like to have it later. RT is aware and they will be back later.
[2018-09-12 20:00] VITALS: BP 134/91
--- NOTE | 2018-09-12 20:00 | NUR ---
HAND-OFF: Report given to Marlys VILLALOBOS, pt in stable condition.
--- NOTE | 2018-09-12 20:09 | General Progress Note ---
Assessment/Plan Assessment/Plan ASSESSMENT/Recs # Anemia of chronic disease (or of iron deficiency) due to underlying chronic medical issues, multifactorial --> Anemia workup has been ordered --> No evidence of hemolysis is noted, peripheral smear has been reviewed. --> Hgb goal >7. Transfuse prn. --> Epogen or iron at this time is not particularly indicated --> Medications have been reviewed Leukocytosis. Likely related to underlying infection versus reactive process. --> have reviewed peripheral smear and bandemia/neutrophilia noted --> continue antibiotics if they have been started by ID team --> monitor for resolution # Probable bronchitis, the patient received ceftriaxone and doxycycline in the emergency room. -->A Pulmonary consultation has been obtained with Dr. Hanna Mckenna. We will follow recommendations of Pulmonary. # Sickle cell disease, the patient currently has severe anemia. The patient may require transfusion during the hospitalization # History of seizure disorder, continue gabapentin as above. # Pulmonary hypertension. 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 The timing of this note does not necessarily reflect the time of the patient was seen. Greatly appreciate consultation! Subjective Constitutional: Denies: no symptoms, chills, diaphoresis, fever, malaise, weakness, other HEENT: Denies: no symptoms, eye pain, blurred vision, tearing, double vision, ear pain, ear discharge, nose pain, nose congestion, throat pain, throat swelling, mouth pain, mouth swelling, other Cardiovascular: Denies: no symptoms, chest pain, edema, irregular heart rate, lightheadedness, palpitations, syncope, other Respiratory: Denies: no symptoms, cough, orthopnea, shortness of breath, SOB with excertion, SOB at rest, sputum, stridor, wheezing, other Gastrointestinal/Abdominal: Denies: no symptoms, abdomen distended, abdominal pain, black stools, tarry stools, blood in stool, constipated, diarrhea, difficulty swallowing, nausea, poor appetite, poor fluid intake, rectal bleeding , vomiting, other 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: Denies: no symptoms, anxiety, depressed, emotional problems, headache, numbness, paresthesia, pre-existing deficit, seizure, tingling, tremors, weakness, other Endocrine: Denies: no symptoms, excessive sweating, flushing, intolerance to cold, intolerance to heat, increased hunger, increased thirst, increased urine, unexplained weight gain, unexplained weight loss, other Hematologic/Lymphatic: Denies: no symptoms, anemia, easy bleeding, easy bruising, other Allergies: Coded Allergies: PENTAMIDINE ISETHIONATE (Verified Allergy, Severe, palpitations, 08/27/17) AMPICILLIN (Verified Allergy, Unknown, hives, 01/05/18) Tolerated CEftriaxone 01/02/18 KETOROLAC (Verified Allergy, Unknown, 08/03/16) MORPHINE (Verified Allergy, Unknown, 08/03/16) PHENYTOIN (Verified Allergy, Unknown, 08/03/16) Subjective 09/12: seen by bedside, awake, comfortable, wbc trending up, no events. Objective Last 24 Hour Vital Signs Date Time Temp Pulse Resp B/P (MAP) Pulse Ox O2 Delivery O2 Flow Rate FiO2 09/12/18 16:12 98.2 09/12/18 12:05 98.2 09/12/18 12:00 98.2 73 19 119/88 (98) 98 09/12/18 10:22 98 Nasal Cannula 5.0 40 09/12/18 10:21 Nasal Cannula 5.0 40 09/12/18 09:00 Nasal Cannula 6.0 09/12/18 08:00 98.0 80 20 136/86 (103) 98 09/12/18 04:00 98.3 75 18 137/83 (101) 96 09/12/18 00:00 99.4 86 18 119/79 (92) 97 09/11/18 21:00 Nasal Cannula 6.0 Intake and Output 09/11/18 09/12/18 18:59 06:59 Intake Total 845 ml 825 ml Balance 845 ml 825 ml IV Total 845 ml 825 ml # Bowel Movements 1 Laboratory Tests 09/12/18 06:40: White Blood Count 17.9H, Red Blood Count 2.96L, Hemoglobin 8.6L, Hematocrit 26.8L, Mean Corpuscular Volume 90, Mean Corpuscular Hemoglobin 29.0, Mean Corpuscular Hemoglobin Concent 32.1, Red Cell Distribution Width 19.1H, Platelet Count 401, Mean Platelet Volume 6.1L, Neutrophils (%) (Auto) , Lymphocytes (%) (Auto) , Monocytes (%) (Auto) , Eosinophils (%) (Auto) , Basophils (%) (Auto) , Differential Total Cells Counted 100, Neutrophils % ( Manual) 81H, Lymphocytes % (Manual) 8L, Monocytes % (Manual) 7, Eosinophils % ( Manual) 2, Basophils % (Manual) 1, Band Neutrophils 1, Platelet Estimate Adequate, Platelet Morphology See comment, Giant Platelets Rare, Polychromasia 1 +, Anisocytosis 2+, Target Cells 1+, Erythrocyte Sedimentation Rate 23H, Sodium Level 137, Potassium Level 4.0, Chloride Level 102, Carbon Dioxide Level 28, Anion Gap 7, Blood Urea Nitrogen 17, Creatinine 0.9, Estimat Glomerular Filtration Rate > 60, Glucose Level 80, Calcium Level 9.1, Phosphorus Level 3.3 , Magnesium Level 1.4L, Total Bilirubin 1.0, Aspartate Amino Transf (AST/SGOT) 61H, Alanine Aminotransferase (ALT/SGPT) 60, Alkaline Phosphatase 194H, Lactate Dehydrogenase 382H, C-Reactive Protein, Quantitative 7.4H, Total Protein 6.4, Albumin 3.3L, Globulin 3.1, Albumin/Globulin Ratio 1.1 Height (Feet): 5 Height (Inches): 11.00 Weight (Pounds): 151 Objective PHYSICAL EXAMINATION GENERAL: The patient is a well-developed and well nourished male, in no apparent distress. HEENT: Eyes, pupils are equal and responsive to light and accommodation. Extraocular movements are intact. NECK: Supple without lymphadenopathy. CHEST: Decreased crackles in bilateral bases. Otherwise, clear to auscultation without wheezes or rales. CARDIOVASCULAR: Regular rhythm and rate. S1 and S2 are normal without murmurs , rubs, or gallops. ABDOMEN: Soft, nontender, and nondistended. Positive bowel sounds. No evidence of hepatosplenomegaly. Currently, no rebound or guarding noted. EXTREMITIES: Negative for clubbing, cyanosis, or edema. Marco Dutton MD Sep 12, 2018 20:09
[2018-09-13] VITALS: BP 126/91
[2018-09-13] MEDS: DiphenhydrAMINE 50mg/ml Inj IVP PRN ×6 (01:27→21:53)
[2018-09-13 04:00] VITALS: BP 140/84
[2018-09-13] MEDS: Lacosamide 50mg tablet ORAL SCH ×2 (06:33→17:49)
[2018-09-13 07:41] LABS: BASOPHILS % (AUTO) 0.2 % (0.0-2.0); EOSINOPHILS % (AUTO) 6.6 % (0.0-3.0); HEMATOCRIT 26.1 % (42.0-52.0); HEMOGLOBIN 8.5 G/DL (14.2-18.0); LYMPHOCYTES % (AUTO) 19.4 % (20.0-45.0); MEAN CORPUSCULAR VOLUME 89 FL (80-99); MONOCYTES % (AUTO) 5.8 % (1.0-10.0); PLATELET COUNT 394 K/UL (150-450); RED BLOOD COUNT 2.91 M/UL (4.70-6.10); RED CELL DISTRIBUTION WIDTH 18.3 % (11.6-14.8); WHITE BLOOD COUNT 14.6 K/UL (4.8-10.8)
[2018-09-13 07:44] LABS: ANION GAP 5 mmol/L (5-15); BLOOD UREA NITROGEN 19 mg/dL (7-18); CALCIUM 9.4 MG/DL (8.5-10.1); CARBON DIOXIDE 29 MMOL/L (21-32); CHLORIDE 104 MMOL/L (98-107); POTASSIUM 4.1 MMOL/L (3.5-5.1); SODIUM 138 MMOL/L (136-145)
--- NOTE | 2018-09-13 07:55 | NUR ---
NURSE NOTES: Report received from outgoing RN, rounds made. Patient sitting in high fowlers position, in bed, drowsy/calm. Right upper Portacath site clean/dry/intact, IV infusing as ordered, without difficulty. Denies SOB/pain/NV. Seizure precautions. Call light in reach, bed in lowest position, will continue to monitor.
[2018-09-13 08:00] VITALS: BP 138/91
[2018-09-13] MEDS: Albuterol/Ipratropium 3ml neb HHN PRN ×2 (09:16→15:23)
[2018-09-13] MEDS: Hydroxyurea 500mg cap ORAL SCH ×2 (09:34→17:49)
[2018-09-13] MEDS: Theophylline ER 100mg ORAL SCH ×2 (09:34→21:54)
[2018-09-13] MEDS: Heparin 5000 units/ml inj SUBQ SCH ×2 (09:35→22:00)
--- NOTE | 2018-09-13 10:48 | NUR ---
RADIOLOGY DEPT CHEST X-RAY DONE.-P.DYE
--- NOTE | 2018-09-13 10:51 | Diagnostic Imaging Report ---
Indication: Shortness of breath Technique: One view of the chest Comparison: 09/10/2018 Findings: Right chest port catheter again demonstrated. Bilateral interstitial and airspace disease is again demonstrated, unchanged. Scarring or atelectasis are seen in the left perihilar region and left lung base. The heart size is upper limits normal Impression: Unchanged, over 3 days, findings as above.
--- NOTE | 2018-09-13 11:32 | Pulmonology Progress Note ---
Assessment/Plan Problems: (1) Pneumonia (2) Interstitial lung disease (3) Pulmonary HTN (4) Sickle cell crisis (5) severe diastolic heart disease Assessment/Plan doing better respiratory treatment q4 check sputum analgesics ID evaluation IV abx f/u LDH titrate fio2 to sat increase benadryl to q4 Subjective ROS Limited/Unobtainable: Yes Constitutional: Reports: no symptoms HEENT: Repors: no symptoms Allergies: Coded Allergies: PENTAMIDINE ISETHIONATE (Verified Allergy, Severe, palpitations, 08/27/17) AMPICILLIN (Verified Allergy, Unknown, hives, 01/05/18) Tolerated CEftriaxone 01/02/18 KETOROLAC (Verified Allergy, Unknown, 08/03/16) MORPHINE (Verified Allergy, Unknown, 08/03/16) PHENYTOIN (Verified Allergy, Unknown, 08/03/16) Objective Last 24 Hour Vital Signs Date Time Temp Pulse Resp B/P (MAP) Pulse Ox O2 Delivery O2 Flow Rate FiO2 09/13/18 09:20 100 Nasal Cannula 6.0 44 09/13/18 09:20 Nasal Cannula 44 09/13/18 08:00 98.1 72 20 138/91 (107) 99 09/13/18 06:03 98.6 09/13/18 04:00 98.6 78 20 140/84 (102) 100 09/13/18 00:00 98.0 75 20 126/91 (103) 100 09/12/18 21:00 Nasal Cannula 6.0 09/12/18 20:00 99.1 80 20 134/91 (105) 98 09/12/18 19:30 Room Air 21 09/12/18 19:30 99 Room Air 21 09/12/18 16:12 98.2 09/12/18 16:00 98.0 78 20 128/86 (100) 98 09/12/18 12:00 98.2 73 19 119/88 (98) 98 Intake and Output 09/12/18 09/13/18 19:00 07:00 Intake Total 75 ml Balance 75 ml IV Total 75 ml General Appearance: WD/WN HEENT: normocephalic, atraumatic Respiratory/Chest: chest wall non-tender, lungs clear Cardiovascular: normal peripheral pulses, normal rate Abdomen: normal bowel sounds, soft, non tender Genitourinary: normal external genitalia Extremities: no cyanosis Skin: no rash 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: upper and bottom lacer hand 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 Microbiology Date/Time Source Procedure Growth Status 09/10/18 15:20 Blood Blood Culture - Preliminary NO GROWTH AFTER 48 HOURS Resulted 09/10/18 15:05 Blood Blood Culture - Preliminary NO GROWTH AFTER 48 HOURS Resulted 09/10/18 15:20 Nasopharynx Influenza Types A,B Antigen (LEANDRO) - Final Complete Laboratory Tests 09/13/18 06:45: White Blood Count 14.6H, Red Blood Count 2.91L, Hemoglobin 8.5L, Hematocrit 26.1L, Mean Corpuscular Volume 89, Mean Corpuscular Hemoglobin 29.3, Mean Corpuscular Hemoglobin Concent 32.8, Red Cell Distribution Width 18.3H, Platelet Count 394, Mean Platelet Volume 6.4L, Neutrophils (%) (Auto) 68.0, Lymphocytes (%) (Auto) 19.4L, Monocytes (%) (Auto) 5.8, Eosinophils (%) (Auto) 6.6H, Basophils (%) (Auto) 0.2, Sodium Level 138, Potassium Level 4.1, Chloride Level 104, Carbon Dioxide Level 29, Anion Gap 5, Blood Urea Nitrogen 19H, Creatinine 1.0, Estimat Glomerular Filtration Rate > 60, Glucose Level 93, Calcium Level 9.4, Lactate Dehydrogenase 417H Current Medications Medications (Trade) Dose Ordered Sig/Anthony Route PRN Reason Start Time Stop Time Status Last Admin Dose Admin Acetaminophen (Tylenol) 650 mg Q4H PRN ORAL fever 09/10/18 17:45 10/10/18 17:44 09/10/18 23:22 Al Hydroxide/Mg Hydroxide (Mylanta II) 30 ml Q6H PRN ORAL dyspepsia 09/10/18 17:45 10/10/18 17:44 Albuterol/ Ipratropium (Albuterol/ Ipratropium) 3 ml Q4H PRN HHN Shortness of Breath 09/12/18 13:30 09/17/18 13:29 09/13/18 09:16 Dextrose (Dextrose 50%) 25 ml Q30M PRN IV Hypoglycemia 09/10/18 18:15 10/10/18 18:05 Dextrose (Dextrose 50%) 50 ml Q30M PRN IV hypoglycemia 09/10/18 18:15 10/10/18 18:14 Diphenhydramine HCl (Benadryl) 25 mg Q4H PRN ORAL Itching 09/12/18 13:15 10/12/18 13:14 Diphenhydramine HCl (Benadryl) 50 mg Q4H PRN IVP Itching 09/12/18 15:00 10/12/18 14:59 09/13/18 09:33 Heparin Sodium (Porcine) (Heparin 5000 units/ml) 5,000 units EVERY 12 HOURS SUBQ 09/10/18 21:00 10/10/18 20:59 09/13/18 09:35 Hydralazine HCl (Apresoline) 25 mg Q6H PRN ORAL SBP>160 09/11/18 08:15 10/11/18 08:14 Hydromorphone HCl (Dilaudid) 2 mg Q3H PRN IV pain 4-6 09/10/18 17:45 09/17/18 17:44 09/12/18 15:42 Hydromorphone HCl (Dilaudid) 3 mg Q3H PRN IVP For Pain 7-10 09/10/18 17:45 09/17/18 17:44 09/13/18 09:34 Hydroxyurea (Hydrea) 500 mg BID ORAL 09/11/18 09:00 09/16/18 08:59 09/13/18 09:34 Lacosamide (Vimpat) 100 mg Q12H ORAL 09/11/18 06:00 10/11/18 05:59 09/13/18 06:33 Levofloxacin 100 ml @ 100 mls/hr Q24H IVPB 09/11/18 13:00 09/18/18 12:59 09/12/18 12:49 Lorazepam (Ativan 2mg/ml 1ml) 0.5 mg Q4H PRN IV For Anxiety 09/10/18 17:45 09/17/18 17:44 Methadone HCl (Methadone HCl) 60 mg Q6HR ORAL 09/11/18 12:00 09/18/18 11:59 09/13/18 07:00 Naloxone HCl (Narcan) 0.2 mg Q30M PRN IVP respritory depression RR<8/min 09/11/18 20:45 10/11/18 20:44 Ondansetron HCl (Zofran) 4 mg Q6H PRN IVP Nausea & Vomiting 09/10/18 17:45 10/10/18 17:44 Polyethylene Glycol (Miralax) 17 gm HSPRN PRN ORAL Constipation 09/10/18 17:45 10/10/18 17:44 Promethazine HCl/ Codeine (Phenergan with Codeine) 5 ml Q4H PRN ORAL For Cough 09/11/18 12:15 10/11/18 12:14 Salmeterol Xinafoate/ Fluticasone (Advair 250/50 Diskus) 1 puffs Q4H PRN INH Shortness of Breath 09/11/18 08:15 10/11/18 08:14 Sodium Chloride 1,000 ml @ 75 mls/hr [id number] IV 09/10/18 17:33 10/10/18 17:32 09/12/18 23:02 Theophylline (Gee-Dur) 100 mg EVERY 12 HOURS ORAL 09/11/18 21:00 10/11/18 20:59 09/13/18 09:34 Zolpidem Tartrate (Ambien) 5 mg HSPRN PRN ORAL Insomnia 09/10/18 17:45 09/17/18 17:44 Hanna Mckenna MD Sep 13, 2018 11:32
[2018-09-13 12:00] VITALS: BP 117/73
--- NOTE | 2018-09-13 14:42 | NUR ---
CASE MANAGEMENT:REVIEW 09/13/18 SI: PNEUMONIA. SICKLE CELL CRISIS 97.7 100 20 117/73 99% ON 6L/NC WBC+14.6 H/H-8.5/26.1 IS: DUONEB HHN Q4HRS PRN IV LEVAQUIN Q24 NAVNEET-DUR PO Q12 METHADONE 60MG PO Q6HRS HYDREA PO BID VIMPAT PO Q12 HEPARIN SQ Q12 IV DILAUDID Q3HRS PRN PAIN IVF@75/HR : MED/SURG STATUS 3 EAST DCP: PATIENT IS FROM HOME
--- NOTE | 2018-09-13 15:46 | General Progress Note ---
Assessment/Plan Assessment/Plan (1) Intractable pain (2) Avascular necrosis of femur head, left (3) Sickle cell disease and crisis (4) Avascular necrosis of femur head, right Patient will be continued on methadone and Dilaudid as needed. Pt was d/w Dr. Perera and he concurred. Subjective Date patient seen: Sep 13, 2018 Time patient seen: 03:30 - pm Allergies: Coded Allergies: PENTAMIDINE ISETHIONATE (Verified Allergy, Severe, palpitations, 08/27/17) AMPICILLIN (Verified Allergy, Unknown, hives, 01/05/18) Tolerated CEftriaxone 01/02/18 KETOROLAC (Verified Allergy, Unknown, 08/03/16) MORPHINE (Verified Allergy, Unknown, 08/03/16) PHENYTOIN (Verified Allergy, Unknown, 08/03/16) Subjective Constitutional: Reports: chills HEENT: Denies: blurred vision, double vision, ear discharge, ear pain, eye pain , mouth pain, mouth swelling, nose congestion, nose pain, tearing, throat pain, throat swelling Cardiovascular: Denies: chest pain, edema, irregular heart rate, lightheadedness, palpitations, syncope Respiratory: Denies: SOB at rest, SOB with excertion, cough, orthopnea, shortness of breath, sputum, stridor, wheezing Gastrointestinal/Abdominal: Denies: abdomen distended, abdominal pain, black stools, blood in stool, constipated, diarrhea, difficulty swallowing, nausea, poor appetite, poor fluid intake, rectal bleeding, tarry stools, vomiting Genitourinary: Denies: burning, discharge, flank pain, frequency, hematuria, incontinence, pain, urgency 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: Denies: anxiety, depressed, emotional problems, headache, numbness, paresthesia, pre-existing deficit, seizure, tingling, tremors, weakness Endocrine: Reports: other, Denies: excessive sweating, flushing, increased hunger, increased thirst, increased urine, intolerance to cold, intolerance to heat, unexplained weight gain, unexplained weight loss Hematologic/Lymphatic: Denies: anemia, easy bleeding, easy bruising Subjective Patient has been tolerating the pain on the Methadone 5 doses and Dilaudid 5 doses in the last 24hrs. He has no new complaints at this time. Objective Last 24 Hour Vital Signs Date Time Temp Pulse Resp B/P (MAP) Pulse Ox O2 Delivery O2 Flow Rate FiO2 09/13/18 15:30 88 18 100 Nasal Cannula 6.0 44 09/13/18 15:23 84 18 98 Nasal Cannula 6.0 44 09/13/18 12:00 97.7 100 20 117/73 (88) 99 09/13/18 09:20 100 Nasal Cannula 6.0 44 09/13/18 09:20 Nasal Cannula 44 09/13/18 09:00 Nasal Cannula 6.0 09/13/18 08:00 98.1 72 20 138/91 (107) 99 09/13/18 06:03 98.6 09/13/18 04:00 98.6 78 20 140/84 (102) 100 09/13/18 00:00 98.0 75 20 126/91 (103) 100 09/12/18 21:00 Nasal Cannula 6.0 09/12/18 20:00 99.1 80 20 134/91 (105) 98 09/12/18 19:30 Room Air 21 09/12/18 19:30 99 Room Air 21 09/12/18 16:12 98.2 09/12/18 16:00 98.0 78 20 128/86 (100) 98 Intake and Output 09/12/18 09/13/18 19:00 07:00 Intake Total 75 ml Balance 75 ml IV Total 75 ml Laboratory Tests 09/13/18 06:45: White Blood Count 14.6H, Red Blood Count 2.91L, Hemoglobin 8.5L, Hematocrit 26.1L, Mean Corpuscular Volume 89, Mean Corpuscular Hemoglobin 29.3, Mean Corpuscular Hemoglobin Concent 32.8, Red Cell Distribution Width 18.3H, Platelet Count 394, Mean Platelet Volume 6.4L, Neutrophils (%) (Auto) 68.0, Lymphocytes (%) (Auto) 19.4L, Monocytes (%) (Auto) 5.8, Eosinophils (%) (Auto) 6.6H, Basophils (%) (Auto) 0.2, Sodium Level 138, Potassium Level 4.1, Chloride Level 104, Carbon Dioxide Level 29, Anion Gap 5, Blood Urea Nitrogen 19H, Creatinine 1.0, Estimat Glomerular Filtration Rate > 60, Glucose Level 93, Calcium Level 9.4, Lactate Dehydrogenase 417H Height (Feet): 5 Height (Inches): 11.00 Weight (Pounds): 151 Objective General Appearance: no apparent distress, alert EENT: PERRL/EOMI, normal ENT inspection Neck: non-tender, normal alignment Cardiovascular: normal rate, regular rhythm Respiratory/Chest: decreased breath sounds Abdomen: non tender, soft Extremities: non-tender Edema: no edema noted Arm (L), no edema noted Arm (R), no edema noted Leg (L), no edema noted Leg (R), no edema noted Pedal (L), no edema noted Pedal (R), no edema noted Generalized Neurologic: alert, oriented x 3 Skin: warm/dry Cj Anderson Sep 13, 2018 15:46
[2018-09-13 16:00] VITALS: BP 113/76
--- NOTE | 2018-09-13 16:46 | Internal Med Progress Note ---
Subjective Date of Service: Sep 13, 2018 Physician Name Rosales,Mehdi Attending Physician Wan Zarate MD Current Medications Medications (Trade) Dose Ordered Sig/Anthony Route PRN Reason Start Time Stop Time Status Last Admin Dose Admin Acetaminophen (Tylenol) 650 mg Q4H PRN ORAL fever 09/10/18 17:45 10/10/18 17:44 09/10/18 23:22 Al Hydroxide/Mg Hydroxide (Mylanta II) 30 ml Q6H PRN ORAL dyspepsia 09/10/18 17:45 10/10/18 17:44 Albuterol/ Ipratropium (Albuterol/ Ipratropium) 3 ml Q4H PRN HHN Shortness of Breath 09/12/18 13:30 09/17/18 13:29 09/13/18 15:23 Dextrose (Dextrose 50%) 25 ml Q30M PRN IV Hypoglycemia 09/10/18 18:15 10/10/18 18:05 Dextrose (Dextrose 50%) 50 ml Q30M PRN IV hypoglycemia 09/10/18 18:15 10/10/18 18:14 Diphenhydramine HCl (Benadryl) 25 mg Q4H PRN ORAL Itching 09/12/18 13:15 10/12/18 13:14 Diphenhydramine HCl (Benadryl) 50 mg Q4H PRN IVP Itching 09/12/18 15:00 10/12/18 14:59 09/13/18 13:48 Heparin Sodium (Porcine) (Heparin 5000 units/ml) 5,000 units EVERY 12 HOURS SUBQ 09/10/18 21:00 10/10/18 20:59 09/13/18 09:35 Hydralazine HCl (Apresoline) 25 mg Q6H PRN ORAL SBP>160 09/11/18 08:15 10/11/18 08:14 Hydromorphone HCl (Dilaudid) 2 mg Q3H PRN IV pain 4-6 09/10/18 17:45 09/17/18 17:44 09/12/18 15:42 Hydromorphone HCl (Dilaudid) 3 mg Q3H PRN IVP For Pain 7-10 09/10/18 17:45 09/17/18 17:44 09/13/18 13:48 Hydroxyurea (Hydrea) 500 mg BID ORAL 09/11/18 09:00 09/16/18 08:59 09/13/18 09:34 Lacosamide (Vimpat) 100 mg Q12H ORAL 09/11/18 06:00 10/11/18 05:59 09/13/18 06:33 Levofloxacin 100 ml @ 100 mls/hr Q24H IVPB 09/11/18 13:00 09/18/18 12:59 09/13/18 12:53 Lorazepam (Ativan 2mg/ml 1ml) 0.5 mg Q4H PRN IV For Anxiety 09/10/18 17:45 09/17/18 17:44 Methadone HCl (Methadone HCl) 60 mg Q6HR ORAL 09/11/18 12:00 09/18/18 11:59 09/13/18 12:45 Naloxone HCl (Narcan) 0.2 mg Q30M PRN IVP respritory depression RR<8/min 09/11/18 20:45 10/11/18 20:44 Ondansetron HCl (Zofran) 4 mg Q6H PRN IVP Nausea & Vomiting 09/10/18 17:45 10/10/18 17:44 Polyethylene Glycol (Miralax) 17 gm HSPRN PRN ORAL Constipation 09/10/18 17:45 10/10/18 17:44 Promethazine HCl/ Codeine (Phenergan with Codeine) 5 ml Q4H PRN ORAL For Cough 09/11/18 12:15 10/11/18 12:14 Salmeterol Xinafoate/ Fluticasone (Advair 250/50 Diskus) 1 puffs Q4H PRN INH Shortness of Breath 09/11/18 08:15 10/11/18 08:14 Sodium Chloride 1,000 ml @ 75 mls/hr [id number] IV 09/10/18 17:33 10/10/18 17:32 09/12/18 23:02 Theophylline (Gee-Dur) 100 mg EVERY 12 HOURS ORAL 09/11/18 21:00 10/11/18 20:59 09/13/18 09:34 Zolpidem Tartrate (Ambien) 5 mg HSPRN PRN ORAL Insomnia 09/10/18 17:45 09/17/18 17:44 Allergies: Coded Allergies: PENTAMIDINE ISETHIONATE (Verified Allergy, Severe, palpitations, 08/27/17) AMPICILLIN (Verified Allergy, Unknown, hives, 01/05/18) Tolerated CEftriaxone 01/02/18 KETOROLAC (Verified Allergy, Unknown, 08/03/16) MORPHINE (Verified Allergy, Unknown, 08/03/16) PHENYTOIN (Verified Allergy, Unknown, 08/03/16) ROS Limited/Unobtainable: No Constitutional: Reports: no symptoms HEENT: Reports: no symptoms Cardiovascular: Reports: no symptoms Respiratory: Reports: no symptoms Gastrointestinal/Abdominal: Reports: no symptoms Genitourinary: Reports: no symptoms 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: Reports: no symptoms Subjective 42 YO M with sickle cell dis admitted with cough. Now bronchitis and CHF. Cover for Int Med-DR Zarate. Objective Last Vital Signs Date Time Temp Pulse Resp B/P (MAP) Pulse Ox O2 Delivery O2 Flow Rate FiO2 09/13/18 15:30 88 18 100 Nasal Cannula 6.0 44 09/13/18 12:00 97.7 117/73 (88) Laboratory Tests Test 09/13/18 06:45 White Blood Count 14.6 K/UL (4.8-10.8) H Red Blood Count 2.91 M/UL (4.70-6.10) L Hemoglobin 8.5 G/DL (14.2-18.0) L Hematocrit 26.1 % (42.0-52.0) L Mean Corpuscular Volume 89 FL (80-99) Mean Corpuscular Hemoglobin 29.3 PG (27.0-31.0) Mean Corpuscular Hemoglobin Concent 32.8 G/DL (32.0-36.0) Red Cell Distribution Width 18.3 % (11.6-14.8) H Platelet Count 394 K/UL (150-450) Mean Platelet Volume 6.4 FL (6.5-10.1) L Neutrophils (%) (Auto) 68.0 % (45.0-75.0) Lymphocytes (%) (Auto) 19.4 % (20.0-45.0) L Monocytes (%) (Auto) 5.8 % (1.0-10.0) Eosinophils (%) (Auto) 6.6 % (0.0-3.0) H Basophils (%) (Auto) 0.2 % (0.0-2.0) Sodium Level 138 MMOL/L (136-145) Potassium Level 4.1 MMOL/L (3.5-5.1) Chloride Level 104 MMOL/L (98-107) Carbon Dioxide Level 29 MMOL/L (21-32) Anion Gap 5 mmol/L (5-15) Blood Urea Nitrogen 19 mg/dL (7-18) H Creatinine 1.0 MG/DL (0.55-1.30) Estimat Glomerular Filtration Rate > 60 mL/min (>60) Glucose Level 93 MG/DL (74-106) Calcium Level 9.4 MG/DL (8.5-10.1) Lactate Dehydrogenase 417 U/L (81-234) H Intake and Output 09/12/18 09/13/18 19:00 07:00 Intake Total 75 ml Balance 75 ml IV Total 75 ml Objective General Appearance: WD/WN, no apparent distress, alert EENT: PERRL/EOMI, normal ENT inspection Neck: non-tender, normal alignment, supple, normal inspection Cardiovascular: normal peripheral pulses, normal rate, regular rhythm, no gallop/murmur, no JVD Respiratory/Chest: chest wall non-tender, crackles/rales, rhonchi - bilaterally , expiratory wheezing Abdomen: normal bowel sounds, non tender, soft, no organomegaly, no mass Extremities: normal range of motion, non-tender 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 S/P transfusion 1 unit PRBC 09/10/18 (3) Sickle cell crisis Assessment & Plan: Pain management per pain team (4) Seizure disorder (5) Pulmonary HTN Assessment & Plan: Continue hydralazine (6) Avascular necrosis of femur head, right (7) Avascular necrosis of femur head, left (8) Purulent bronchitis Assessment & Plan: Continue levaquin per pulmonary (9) severe diastolic heart disease Mehdi Rosales MD Sep 13, 2018 16:46
--- NOTE | 2018-09-13 17:01 | Infectious Diseases Prog Note ---
Assessment/Plan Assessment/Plan Abx: Levaquin 09/11- Ceftriaxone x1 09/10 Doxycycline x1 09/10 Assessment: Acute sickle cell crisis Acute bronchitis -09/13 CXR: Bilateral interstitial and airspace disease is again demonstrated, unchanged. Scarring or atelectasis are seen in the left perihilar region and left lung base. -CXR: Suspected congestive heart failure. Suspect chronic interstitial disease as well -influenza sc neg -sp cx p Afebrile Leukocytosis, incrased- reactive in the setting of acute sickle crisis -Bcx NTD sickle cell anemia seizure disorder b/l DVT avascular necrosis b/l hips s/p tonsillectomy L tibia/fibula fx s/p ORIF pneumothorax COPD/asthma on home O2 HTN dCHF severe pHTN Plan: -Continue Levaquin #3 (abx d #4/) -09/10 SP Ceftriaxone and Doxycycline x1 -f/u cx -Monitor CBC/CMP, temperatures Thank you for this consultation. Will continue to follow along with you. Discussed with RN. Subjective Allergies: Coded Allergies: PENTAMIDINE ISETHIONATE (Verified Allergy, Severe, palpitations, 08/27/17) AMPICILLIN (Verified Allergy, Unknown, hives, 01/05/18) Tolerated CEftriaxone 01/02/18 KETOROLAC (Verified Allergy, Unknown, 08/03/16) MORPHINE (Verified Allergy, Unknown, 08/03/16) PHENYTOIN (Verified Allergy, Unknown, 08/03/16) Subjective afebrile in >36hrs wbc improved Objective Vital Signs Last 24 Hour Vital Signs Date Time Temp Pulse Resp B/P (MAP) Pulse Ox O2 Delivery O2 Flow Rate FiO2 09/13/18 15:30 88 18 100 Nasal Cannula 6.0 44 09/13/18 15:23 84 18 98 Nasal Cannula 6.0 44 09/13/18 12:00 97.7 100 20 117/73 (88) 99 09/13/18 09:20 100 Nasal Cannula 6.0 44 09/13/18 09:20 Nasal Cannula 44 09/13/18 09:00 Nasal Cannula 6.0 09/13/18 08:00 98.1 72 20 138/91 (107) 99 09/13/18 06:03 98.6 09/13/18 04:00 98.6 78 20 140/84 (102) 100 09/13/18 00:00 98.0 75 20 126/91 (103) 100 09/12/18 21:00 Nasal Cannula 6.0 09/12/18 20:00 99.1 80 20 134/91 (105) 98 09/12/18 19:30 Room Air 21 09/12/18 19:30 99 Room Air 21 Height (Feet): 5 Height (Inches): 11.00 Weight (Pounds): 151 Objective GENERAL: The patient is a well-developed and well nourished male, in no apparent distress. HEENT: Eyes, pupils are equal and responsive to light and accommodation. Extraocular movements are intact. NECK: Supple without lymphadenopathy. CHEST: Decreased crackles in bilateral bases. Otherwise, clear to auscultation without wheezes or rales. CARDIOVASCULAR: Regular rhythm and rate. S1 and S2 are normal without murmurs, rubs, or gallops. ABDOMEN: Soft, nontender, and nondistended. Positive bowel sounds. No evidence of hepatosplenomegaly. Currently, no rebound or guarding noted. EXTREMITIES: Negative for clubbing, cyanosis, or edema. Laboratory Tests Test 09/13/18 06:45 White Blood Count 14.6 K/UL (4.8-10.8) H Red Blood Count 2.91 M/UL (4.70-6.10) L Hemoglobin 8.5 G/DL (14.2-18.0) L Hematocrit 26.1 % (42.0-52.0) L Mean Corpuscular Volume 89 FL (80-99) Mean Corpuscular Hemoglobin 29.3 PG (27.0-31.0) Mean Corpuscular Hemoglobin Concent 32.8 G/DL (32.0-36.0) Red Cell Distribution Width 18.3 % (11.6-14.8) H Platelet Count 394 K/UL (150-450) Mean Platelet Volume 6.4 FL (6.5-10.1) L Neutrophils (%) (Auto) 68.0 % (45.0-75.0) Lymphocytes (%) (Auto) 19.4 % (20.0-45.0) L Monocytes (%) (Auto) 5.8 % (1.0-10.0) Eosinophils (%) (Auto) 6.6 % (0.0-3.0) H Basophils (%) (Auto) 0.2 % (0.0-2.0) Sodium Level 138 MMOL/L (136-145) Potassium Level 4.1 MMOL/L (3.5-5.1) Chloride Level 104 MMOL/L (98-107) Carbon Dioxide Level 29 MMOL/L (21-32) Anion Gap 5 mmol/L (5-15) Blood Urea Nitrogen 19 mg/dL (7-18) H Creatinine 1.0 MG/DL (0.55-1.30) Estimat Glomerular Filtration Rate > 60 mL/min (>60) Glucose Level 93 MG/DL (74-106) Calcium Level 9.4 MG/DL (8.5-10.1) Lactate Dehydrogenase 417 U/L (81-234) H Current Medications Medications (Trade) Dose Ordered Sig/Anthony Route PRN Reason Start Time Stop Time Status Last Admin Dose Admin Acetaminophen (Tylenol) 650 mg Q4H PRN ORAL fever 09/10/18 17:45 10/10/18 17:44 09/10/18 23:22 Al Hydroxide/Mg Hydroxide (Mylanta II) 30 ml Q6H PRN ORAL dyspepsia 09/10/18 17:45 10/10/18 17:44 Albuterol/ Ipratropium (Albuterol/ Ipratropium) 3 ml Q4H PRN HHN Shortness of Breath 09/12/18 13:30 09/17/18 13:29 09/13/18 15:23 Dextrose (Dextrose 50%) 25 ml Q30M PRN IV Hypoglycemia 09/10/18 18:15 10/10/18 18:05 Dextrose (Dextrose 50%) 50 ml Q30M PRN IV hypoglycemia 09/10/18 18:15 10/10/18 18:14 Diphenhydramine HCl (Benadryl) 25 mg Q4H PRN ORAL Itching 09/12/18 13:15 10/12/18 13:14 Diphenhydramine HCl (Benadryl) 50 mg Q4H PRN IVP Itching 09/12/18 15:00 10/12/18 14:59 09/13/18 13:48 Heparin Sodium (Porcine) (Heparin 5000 units/ml) 5,000 units EVERY 12 HOURS SUBQ 09/10/18 21:00 10/10/18 20:59 09/13/18 09:35 Hydralazine HCl (Apresoline) 25 mg Q6H PRN ORAL SBP>160 09/11/18 08:15 10/11/18 08:14 Hydromorphone HCl (Dilaudid) 2 mg Q3H PRN IV pain 4-6 09/10/18 17:45 09/17/18 17:44 09/12/18 15:42 Hydromorphone HCl (Dilaudid) 3 mg Q3H PRN IVP For Pain 7-10 09/10/18 17:45 09/17/18 17:44 09/13/18 13:48 Hydroxyurea (Hydrea) 500 mg BID ORAL 09/11/18 09:00 09/16/18 08:59 09/13/18 09:34 Lacosamide (Vimpat) 100 mg Q12H ORAL 09/11/18 06:00 10/11/18 05:59 09/13/18 06:33 Levofloxacin 100 ml @ 100 mls/hr Q24H IVPB 09/11/18 13:00 09/18/18 12:59 09/13/18 12:53 Lorazepam (Ativan 2mg/ml 1ml) 0.5 mg Q4H PRN IV For Anxiety 09/10/18 17:45 09/17/18 17:44 Methadone HCl (Methadone HCl) 60 mg Q6HR ORAL 09/11/18 12:00 09/18/18 11:59 09/13/18 12:45 Naloxone HCl (Narcan) 0.2 mg Q30M PRN IVP respritory depression RR<8/min 09/11/18 20:45 10/11/18 20:44 Ondansetron HCl (Zofran) 4 mg Q6H PRN IVP Nausea & Vomiting 09/10/18 17:45 10/10/18 17:44 Polyethylene Glycol (Miralax) 17 gm HSPRN PRN ORAL Constipation 09/10/18 17:45 10/10/18 17:44 Promethazine HCl/ Codeine (Phenergan with Codeine) 5 ml Q4H PRN ORAL For Cough 09/11/18 12:15 10/11/18 12:14 Salmeterol Xinafoate/ Fluticasone (Advair 250/50 Diskus) 1 puffs Q4H PRN INH Shortness of Breath 09/11/18 08:15 10/11/18 08:14 Sodium Chloride 1,000 ml @ 75 mls/hr [id number] IV 09/10/18 17:33 10/10/18 17:32 09/12/18 23:02 Theophylline (Gee-Dur) 100 mg EVERY 12 HOURS ORAL 09/11/18 21:00 10/11/18 20:59 09/13/18 09:34 Zolpidem Tartrate (Ambien) 5 mg HSPRN PRN ORAL Insomnia 09/10/18 17:45 09/17/18 17:44 Isadora Frankel M.D. Sep 13, 2018 17:01
--- NOTE | 2018-09-13 19:45 | NUR ---
HAND-OFF: Report given to Gianna VILLALOBOS.
[2018-09-13 20:00] VITALS: BP 113/75
--- NOTE | 2018-09-13 20:17 | NUR ---
NURSE NOTES: Received patient in bed, awake, alert and oriented,no acute distress noted or reported, call light is within reach, bed is in low position, locked and alarm is on, will continue to monitor for safety and comfort.
--- NOTE | 2018-09-13 21:11 | General Progress Note ---
Assessment/Plan Assessment/Plan ASSESSMENT/Recs # Anemia of chronic disease (or of iron deficiency) due to underlying chronic medical issues, multifactorial --> Anemia workup has been ordered --> No evidence of hemolysis is noted, peripheral smear has been reviewed. --> Hgb goal >7. Transfuse prn. --> Epogen or iron at this time is not particularly indicated --> Medications have been reviewed Leukocytosis. Likely related to underlying infection versus reactive process. --> have reviewed peripheral smear and bandemia/neutrophilia noted --> continue antibiotics if they have been started by ID team --> monitor for resolution # Probable bronchitis, the patient received ceftriaxone and doxycycline in the emergency room. -->A Pulmonary consultation has been obtained with Dr. Hanna Mckenna. We will follow recommendations of Pulmonary. # Sickle cell disease, the patient currently has severe anemia. The patient may require transfusion during the hospitalization # History of seizure disorder, continue gabapentin as above. # Pulmonary hypertension. 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 The timing of this note does not necessarily reflect the time of the patient was seen. Greatly appreciate consultation! Subjective Constitutional: Denies: no symptoms, chills, diaphoresis, fever, malaise, weakness, other HEENT: Denies: no symptoms, eye pain, blurred vision, tearing, double vision, ear pain, ear discharge, nose pain, nose congestion, throat pain, throat swelling, mouth pain, mouth swelling, other Cardiovascular: Denies: no symptoms, chest pain, edema, irregular heart rate, lightheadedness, palpitations, syncope, other Respiratory: Denies: no symptoms, cough, orthopnea, shortness of breath, SOB with excertion, SOB at rest, sputum, stridor, wheezing, other Gastrointestinal/Abdominal: Denies: no symptoms, abdomen distended, abdominal pain, black stools, tarry stools, blood in stool, constipated, diarrhea, difficulty swallowing, nausea, poor appetite, poor fluid intake, rectal bleeding , vomiting, other Genitourinary: Denies: no symptoms, burning, discharge, frequency, flank pain, hematuria, incontinence, pain, urgency, other 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: Denies: no symptoms, anxiety, depressed, emotional problems, headache, numbness, paresthesia, pre-existing deficit, seizure, tingling, tremors, weakness, other Endocrine: Denies: no symptoms, excessive sweating, flushing, intolerance to cold, intolerance to heat, increased hunger, increased thirst, increased urine, unexplained weight gain, unexplained weight loss, other Allergies: Coded Allergies: PENTAMIDINE ISETHIONATE (Verified Allergy, Severe, palpitations, 08/27/17) AMPICILLIN (Verified Allergy, Unknown, hives, 01/05/18) Tolerated CEftriaxone 01/02/18 KETOROLAC (Verified Allergy, Unknown, 08/03/16) MORPHINE (Verified Allergy, Unknown, 08/03/16) PHENYTOIN (Verified Allergy, Unknown, 08/03/16) Subjective 09/12: seen by bedside, awake, comfortable, wbc trending up, no events. 09/13: Pt is awake, comfortable, no acute distress. wbc trending down Objective Last 24 Hour Vital Signs Date Time Temp Pulse Resp B/P (MAP) Pulse Ox O2 Delivery O2 Flow Rate FiO2 09/13/18 20:20 Nasal Cannula 6.0 44 09/13/18 20:19 99 Nasal Cannula 6.0 44 09/13/18 16:00 99.6 113 20 113/76 (88) 99 09/13/18 15:30 88 18 100 Nasal Cannula 6.0 44 09/13/18 15:23 84 18 98 Nasal Cannula 6.0 44 09/13/18 12:00 97.7 100 20 117/73 (88) 99 09/13/18 09:20 100 Nasal Cannula 6.0 44 09/13/18 09:20 Nasal Cannula 44 09/13/18 09:00 Nasal Cannula 6.0 09/13/18 08:00 98.1 72 20 138/91 (107) 99 09/13/18 06:03 98.6 09/13/18 04:00 98.6 78 20 140/84 (102) 100 09/13/18 00:00 98.0 75 20 126/91 (103) 100 Intake and Output 09/12/18 09/13/18 18:59 06:59 Intake Total 75 ml Balance 75 ml IV Total 75 ml Laboratory Tests 09/13/18 06:45: White Blood Count 14.6H, Red Blood Count 2.91L, Hemoglobin 8.5L, Hematocrit 26.1L, Mean Corpuscular Volume 89, Mean Corpuscular Hemoglobin 29.3, Mean Corpuscular Hemoglobin Concent 32.8, Red Cell Distribution Width 18.3H, Platelet Count 394, Mean Platelet Volume 6.4L, Neutrophils (%) (Auto) 68.0, Lymphocytes (%) (Auto) 19.4L, Monocytes (%) (Auto) 5.8, Eosinophils (%) (Auto) 6.6H, Basophils (%) (Auto) 0.2, Sodium Level 138, Potassium Level 4.1, Chloride Level 104, Carbon Dioxide Level 29, Anion Gap 5, Blood Urea Nitrogen 19H, Creatinine 1.0, Estimat Glomerular Filtration Rate > 60, Glucose Level 93, Calcium Level 9.4, Lactate Dehydrogenase 417H Height (Feet): 5 Height (Inches): 11.00 Weight (Pounds): 151 Objective PHYSICAL EXAMINATION GENERAL: The patient is a well-developed and well nourished male, in no apparent distress. HEENT: Eyes, pupils are equal and responsive to light and accommodation. Extraocular movements are intact. NECK: Supple without lymphadenopathy. CHEST: Decreased crackles in bilateral bases. Otherwise, clear to auscultation without wheezes or rales. CARDIOVASCULAR: Regular rhythm and rate. S1 and S2 are normal without murmurs , rubs, or gallops. ABDOMEN: Soft, nontender, and nondistended. Positive bowel sounds. No evidence of hepatosplenomegaly. Currently, no rebound or guarding noted. EXTREMITIES: Negative for clubbing, cyanosis, or edema. Marco Dutton MD Sep 13, 2018 21:11
[2018-09-14] VITALS: BP 119/71
[2018-09-14] MEDS: Zolpidem 5mg tab ORAL PRN (00:38)
[2018-09-14] MEDS: DiphenhydrAMINE 50mg/ml Inj IVP PRN ×6 (02:01→22:25)
[2018-09-14 04:00] VITALS: BP 115/79
[2018-09-14 05:24] LABS: BASOPHILS % (AUTO) 0.8 % (0.0-2.0); EOSINOPHILS % (AUTO) 5.9 % (0.0-3.0); HEMATOCRIT 25.3 % (42.0-52.0); HEMOGLOBIN 8.3 G/DL (14.2-18.0); LYMPHOCYTES % (AUTO) 34.5 % (20.0-45.0); MEAN CORPUSCULAR VOLUME 91 FL (80-99); MONOCYTES % (AUTO) 6.6 % (1.0-10.0); NEUTROPHILS % (AUTO) 52.1 % (45.0-75.0); PLATELET COUNT 368 K/UL (150-450); RED BLOOD COUNT 2.78 M/UL (4.70-6.10); RED CELL DISTRIBUTION WIDTH 18.2 % (11.6-14.8); WHITE BLOOD COUNT 16.5 K/UL (4.8-10.8)
[2018-09-14 05:38] LABS: ALANINE AMINOTRANSFERASE 65 U/L (12-78); ALBUMIN 3.3 G/DL (3.4-5.0); ALKALINE PHOSPHATASE 204 U/L (46-116); ANION GAP 4 mmol/L (5-15); ASPARTATE AMINO TRANSFERASE 67 U/L (15-37); BILIRUBIN,TOTAL 0.9 MG/DL (0.2-1.0); BLOOD UREA NITROGEN 21 mg/dL (7-18); CALCIUM 9.6 MG/DL (8.5-10.1); CARBON DIOXIDE 30 MMOL/L (21-32); CHLORIDE 104 MMOL/L (98-107); PHOSPHORUS 3.2 MG/DL (2.5-4.9); POTASSIUM 4.6 MMOL/L (3.5-5.1); SODIUM 138 MMOL/L (136-145)
[2018-09-14] MEDS: Lacosamide 50mg tablet ORAL SCH ×2 (06:35→19:23)
--- NOTE | 2018-09-14 07:04 | NUR ---
HAND-OFF: Report given to Yamileth VILLALOBOS.
--- NOTE | 2018-09-14 07:35 | NUR ---
NURSE NOTES: Report received from outgoing Gianna RN, rounds made. Patient sitting in high fowlers position in bed, alert/oriented x4, calm. O2 6LNC in place, no respiratory distress noted. Patient denies need for pain medication at this time. IV infusing to right subclavian portacath, site asymptomatic. Bed in lowest position, call light in reach, will continue to monitor.
[2018-09-14 08:00] VITALS: BP 113/69
[2018-09-14] MEDS: Heparin 5000 units/ml inj SUBQ SCH ×3 (09:00→22:24)
--- NOTE | 2018-09-14 09:05 | General Progress Note ---
Assessment/Plan Assessment/Plan (1) Intractable pain (2) Avascular necrosis of femur head, left (3) Sickle cell disease and crisis (4) Avascular necrosis of femur head, right Patient will be continued on methadone and Dilaudid as needed. Pt was d/w Dr. Perera and he concurred. Subjective Date patient seen: Sep 14, 2018 Time patient seen: 08:30 - am Allergies: Coded Allergies: PENTAMIDINE ISETHIONATE (Verified Allergy, Severe, palpitations, 08/27/17) AMPICILLIN (Verified Allergy, Unknown, hives, 01/05/18) Tolerated CEftriaxone 01/02/18 KETOROLAC (Verified Allergy, Unknown, 08/03/16) MORPHINE (Verified Allergy, Unknown, 08/03/16) PHENYTOIN (Verified Allergy, Unknown, 08/03/16) Subjective Constitutional: Reports: chills HEENT: Denies: blurred vision, double vision, ear discharge, ear pain, eye pain , mouth pain, mouth swelling, nose congestion, nose pain, tearing, throat pain, throat swelling Cardiovascular: Denies: chest pain, edema, irregular heart rate, lightheadedness, palpitations, syncope Respiratory: Denies: SOB at rest, SOB with excertion, cough, orthopnea, shortness of breath, sputum, stridor, wheezing Gastrointestinal/Abdominal: Denies: abdomen distended, abdominal pain, black stools, blood in stool, constipated, diarrhea, difficulty swallowing, nausea, poor appetite, poor fluid intake, rectal bleeding, tarry stools, vomiting Genitourinary: Denies: burning, discharge, flank pain, frequency, hematuria, incontinence, pain, urgency 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: Denies: anxiety, depressed, emotional problems, headache, numbness, paresthesia, pre-existing deficit, seizure, tingling, tremors, weakness Endocrine: Reports: other, Denies: excessive sweating, flushing, increased hunger, increased thirst, increased urine, intolerance to cold, intolerance to heat, unexplained weight gain, unexplained weight loss Hematologic/Lymphatic: Denies: anemia, easy bleeding, easy bruising Subjective Patient is in bed continues to c/o generalized body pain. His pain has been stable on the Methadone and Dilaudid. No new complaints at this time. Objective Last 24 Hour Vital Signs Date Time Temp Pulse Resp B/P (MAP) Pulse Ox O2 Delivery O2 Flow Rate FiO2 09/14/18 07:56 99 Nasal Cannula 6.0 44 09/14/18 07:56 Nasal Cannula 6.0 44 09/14/18 04:00 99.1 81 20 115/79 (91) 09/14/18 00:00 99.1 101 20 119/71 (87) 09/13/18 23:19 Nasal Cannula 6.0 09/13/18 20:20 Nasal Cannula 6.0 44 09/13/18 20:19 99 Nasal Cannula 6.0 44 09/13/18 20:00 99.8 97 18 113/75 (88) 97 09/13/18 16:00 99.6 113 20 113/76 (88) 99 09/13/18 15:30 88 18 100 Nasal Cannula 6.0 44 09/13/18 15:23 84 18 98 Nasal Cannula 6.0 44 09/13/18 12:00 97.7 100 20 117/73 (88) 99 09/13/18 09:20 100 Nasal Cannula 6.0 44 09/13/18 09:20 Nasal Cannula 44 Intake and Output 09/13/18 09/14/18 19:00 07:00 Intake Total 900 ml Balance 900 ml IV Total 900 ml Laboratory Tests 09/14/18 05:15: White Blood Count 16.5H, Red Blood Count 2.78L, Hemoglobin 8.3L, Hematocrit 25.3L, Mean Corpuscular Volume 91, Mean Corpuscular Hemoglobin 30.0, Mean Corpuscular Hemoglobin Concent 33.0, Red Cell Distribution Width 18.2H, Platelet Count 368, Mean Platelet Volume 6.3L, Neutrophils (%) (Auto) 52.1, Lymphocytes (%) (Auto) 34.5, Monocytes (%) (Auto) 6.6, Eosinophils (%) (Auto) 5.9H, Basophils (%) (Auto) 0.8, Erythrocyte Sedimentation Rate 41H, Sodium Level 138, Potassium Level 4.6, Chloride Level 104, Carbon Dioxide Level 30, Anion Gap 4L, Blood Urea Nitrogen 21H, Creatinine 1.0, Estimat Glomerular Filtration Rate > 60, Glucose Level 98, Calcium Level 9.6, Phosphorus Level 3.2 , Magnesium Level 1.7L, Total Bilirubin 0.9, Aspartate Amino Transf (AST/SGOT) 67H, Alanine Aminotransferase (ALT/SGPT) 65, Alkaline Phosphatase 204H, C- Reactive Protein, Quantitative 8.9H, Total Protein 6.5, Albumin 3.3L, Globulin 3.2, Albumin/Globulin Ratio 1.0 Height (Feet): 5 Height (Inches): 11.00 Weight (Pounds): 151 General Appearance: no apparent distress, alert EENT: PERRL/EOMI, normal ENT inspection Neck: non-tender, normal alignment Cardiovascular: normal rate, regular rhythm Respiratory/Chest: decreased breath sounds Abdomen: non tender, soft Extremities: non-tender Edema: no edema noted Arm (L), no edema noted Arm (R), no edema noted Leg (L), no edema noted Leg (R), no edema noted Pedal (L), no edema noted Pedal (R), no edema noted Generalized Neurologic: alert, oriented x 3 Skin: warm/dry Cj Anderson Sep 14, 2018 09:04
[2018-09-14] MEDS: Theophylline ER 100mg ORAL SCH ×2 (09:23→22:24)
[2018-09-14] MEDS: Hydroxyurea 500mg cap ORAL SCH ×2 (09:23→18:14)
--- NOTE | 2018-09-14 10:18 | NUR ---
CASE MANAGEMENT:REVIEW SI: PNEUMONIA. SICKLE CELL CRISIS 99.1 81 20 115/79 99% ON 4L/NC WBC+ 16.5 H/H-8.3/25.3 IS: DUONEB HHN Q4HRS PRN IV LEVAQUIN Q24 NAVNEET-DUR PO Q12 METHADONE 60MG PO Q6HRS HYDREA PO BID VIMPAT PO Q12 HEPARIN SQ Q12 IV DILAUDID Q3HRS PRN PAIN IVF@75/HR : MED/SURG STATUS 3 EAST DCP: PATIENT IS FROM HOME
[2018-09-14 12:00] VITALS: BP 117/81
--- NOTE | 2018-09-14 15:44 | Pulmonology Progress Note ---
Assessment/Plan Problems: (1) Pneumonia (2) Interstitial lung disease (3) Pulmonary HTN (4) Sickle cell crisis (5) severe diastolic heart disease Assessment/Plan feeling better, butn not quite yet respiratory treatment q4 check sputum analgesics ID evaluation IV abx f/u LDH titrate fio2 to sat increase benadryl to q4 Subjective ROS Limited/Unobtainable: No Constitutional: Reports: no symptoms HEENT: Repors: no symptoms Respiratory: Reports: no symptoms Allergies: Coded Allergies: PENTAMIDINE ISETHIONATE (Verified Allergy, Severe, palpitations, 08/27/17) AMPICILLIN (Verified Allergy, Unknown, hives, 01/05/18) Tolerated CEftriaxone 01/02/18 KETOROLAC (Verified Allergy, Unknown, 08/03/16) MORPHINE (Verified Allergy, Unknown, 08/03/16) PHENYTOIN (Verified Allergy, Unknown, 08/03/16) Objective Last 24 Hour Vital Signs Date Time Temp Pulse Resp B/P (MAP) Pulse Ox O2 Delivery O2 Flow Rate FiO2 09/14/18 08:00 98.9 88 20 113/69 (84) 96 09/14/18 07:56 99 Nasal Cannula 6.0 44 09/14/18 07:56 Nasal Cannula 6.0 44 09/14/18 04:00 99.1 81 20 115/79 (91) 09/14/18 00:00 99.1 101 20 119/71 (87) 09/13/18 23:19 Nasal Cannula 6.0 09/13/18 20:20 Nasal Cannula 6.0 44 09/13/18 20:19 99 Nasal Cannula 6.0 44 09/13/18 20:00 99.8 97 18 113/75 (88) 97 09/13/18 16:00 99.6 113 20 113/76 (88) 99 Intake and Output 09/13/18 09/14/18 19:00 07:00 Intake Total 900 ml Balance 900 ml IV Total 900 ml General Appearance: WD/WN HEENT: normocephalic, anicteric Respiratory/Chest: chest wall non-tender, lungs clear Abdomen: normal bowel sounds, no organomegaly Genitourinary: normal external genitalia Skin: no rash Laboratory Tests 09/14/18 05:15: White Blood Count 16.5H, Red Blood Count 2.78L, Hemoglobin 8.3L, Hematocrit 25.3L, Mean Corpuscular Volume 91, Mean Corpuscular Hemoglobin 30.0, Mean Corpuscular Hemoglobin Concent 33.0, Red Cell Distribution Width 18.2H, Platelet Count 368, Mean Platelet Volume 6.3L, Neutrophils (%) (Auto) 52.1, Lymphocytes (%) (Auto) 34.5, Monocytes (%) (Auto) 6.6, Eosinophils (%) (Auto) 5.9H, Basophils (%) (Auto) 0.8, Erythrocyte Sedimentation Rate 41H, Sodium Level 138, Potassium Level 4.6, Chloride Level 104, Carbon Dioxide Level 30, Anion Gap 4L, Blood Urea Nitrogen 21H, Creatinine 1.0, Estimat Glomerular Filtration Rate > 60, Glucose Level 98, Calcium Level 9.6, Phosphorus Level 3.2 , Magnesium Level 1.7L, Total Bilirubin 0.9, Aspartate Amino Transf (AST/SGOT) 67H, Alanine Aminotransferase (ALT/SGPT) 65, Alkaline Phosphatase 204H, C- Reactive Protein, Quantitative 8.9H, Total Protein 6.5, Albumin 3.3L, Globulin 3.2, Albumin/Globulin Ratio 1.0 Current Medications Medications (Trade) Dose Ordered Sig/Anthony Route PRN Reason Start Time Stop Time Status Last Admin Dose Admin Acetaminophen (Tylenol) 650 mg Q4H PRN ORAL fever 09/10/18 17:45 10/10/18 17:44 09/10/18 23:22 Al Hydroxide/Mg Hydroxide (Mylanta II) 30 ml Q6H PRN ORAL dyspepsia 09/10/18 17:45 10/10/18 17:44 Albuterol/ Ipratropium (Albuterol/ Ipratropium) 3 ml Q4H PRN HHN Shortness of Breath 09/12/18 13:30 09/17/18 13:29 09/13/18 15:23 Dextrose (Dextrose 50%) 25 ml Q30M PRN IV Hypoglycemia 09/10/18 18:15 10/10/18 18:05 Dextrose (Dextrose 50%) 50 ml Q30M PRN IV hypoglycemia 09/10/18 18:15 10/10/18 18:14 Diphenhydramine HCl (Benadryl) 25 mg Q4H PRN ORAL Itching 09/12/18 13:15 10/12/18 13:14 Diphenhydramine HCl (Benadryl) 50 mg Q4H PRN IVP Itching 09/12/18 15:00 10/12/18 14:59 09/14/18 14:13 Heparin Sodium (Porcine) (Heparin 5000 units/ml) 5,000 units EVERY 12 HOURS SUBQ 09/10/18 21:00 10/10/18 20:59 09/13/18 22:00 Hydralazine HCl (Apresoline) 25 mg Q6H PRN ORAL SBP>160 09/11/18 08:15 10/11/18 08:14 Hydromorphone HCl (Dilaudid) 2 mg Q3H PRN IV pain 4-6 09/10/18 17:45 09/17/18 17:44 09/12/18 15:42 Hydromorphone HCl (Dilaudid) 3 mg Q3H PRN IVP For Pain 7-10 09/10/18 17:45 09/17/18 17:44 09/14/18 14:13 Hydroxyurea (Hydrea) 500 mg BID ORAL 09/11/18 09:00 09/16/18 08:59 09/14/18 09:23 Lacosamide (Vimpat) 100 mg Q12H ORAL 09/11/18 06:00 10/11/18 05:59 09/14/18 06:35 Levofloxacin 100 ml @ 100 mls/hr Q24H IVPB 09/11/18 13:00 09/18/18 12:59 09/14/18 13:13 Lorazepam (Ativan 2mg/ml 1ml) 0.5 mg Q4H PRN IV For Anxiety 09/10/18 17:45 09/17/18 17:44 Methadone HCl (Methadone HCl) 60 mg Q6HR ORAL 09/11/18 12:00 09/18/18 11:59 09/14/18 12:20 Naloxone HCl (Narcan) 0.2 mg Q30M PRN IVP respritory depression RR<8/min 09/11/18 20:45 10/11/18 20:44 Ondansetron HCl (Zofran) 4 mg Q6H PRN IVP Nausea & Vomiting 09/10/18 17:45 10/10/18 17:44 Polyethylene Glycol (Miralax) 17 gm HSPRN PRN ORAL Constipation 09/10/18 17:45 10/10/18 17:44 Promethazine HCl/ Codeine (Phenergan with Codeine) 5 ml Q4H PRN ORAL For Cough 09/11/18 12:15 10/11/18 12:14 Salmeterol Xinafoate/ Fluticasone (Advair 250/50 Diskus) 1 puffs Q4H PRN INH Shortness of Breath 09/11/18 08:15 10/11/18 08:14 Sodium Chloride 1,000 ml @ 75 mls/hr [id number] IV 09/10/18 17:33 10/10/18 17:32 09/14/18 13:13 Theophylline (Gee-Dur) 100 mg EVERY 12 HOURS ORAL 09/11/18 21:00 10/11/18 20:59 09/14/18 09:23 Zolpidem Tartrate (Ambien) 5 mg HSPRN PRN ORAL Insomnia 09/10/18 17:45 09/17/18 17:44 09/14/18 00:38 Hanna Mckenna MD Sep 14, 2018 15:44
[2018-09-14 16:00] VITALS: BP 113/71
--- NOTE | 2018-09-14 16:09 | Infectious Diseases Prog Note ---
Assessment/Plan Assessment/Plan Abx: Levaquin 09/11- Ceftriaxone x1 09/10 Doxycycline x1 09/10 Assessment: Acute sickle cell crisis Acute bronchitis -09/13 CXR: Bilateral interstitial and airspace disease is again demonstrated, unchanged. Scarring or atelectasis are seen in the left perihilar region and left lung base. -CXR: Suspected congestive heart failure. Suspect chronic interstitial disease as well -influenza sc neg -sp cx p Afebrile Leukocytosis, incrased- reactive in the setting of acute sickle crisis -Bcx NTD sickle cell anemia seizure disorder b/l DVT avascular necrosis b/l hips s/p tonsillectomy L tibia/fibula fx s/p ORIF pneumothorax COPD/asthma on home O2 HTN dCHF severe pHTN Plan: -Continue Levaquin #4 (abx d #/) -09/10 SP Ceftriaxone and Doxycycline x1 -f/u cx -Monitor CBC/CMP, temperatures Thank you for this consultation. Will continue to follow along with you. Discussed with RN. Subjective Allergies: Coded Allergies: PENTAMIDINE ISETHIONATE (Verified Allergy, Severe, palpitations, 08/27/17) AMPICILLIN (Verified Allergy, Unknown, hives, 01/05/18) Tolerated CEftriaxone 01/02/18 KETOROLAC (Verified Allergy, Unknown, 08/03/16) MORPHINE (Verified Allergy, Unknown, 08/03/16) PHENYTOIN (Verified Allergy, Unknown, 08/03/16) Subjective afebrile in >48hrs wbc fluctuating Objective Vital Signs Last 24 Hour Vital Signs Date Time Temp Pulse Resp B/P (MAP) Pulse Ox O2 Delivery O2 Flow Rate FiO2 09/14/18 08:00 98.9 88 20 113/69 (84) 96 09/14/18 07:56 99 Nasal Cannula 6.0 44 09/14/18 07:56 Nasal Cannula 6.0 44 09/14/18 04:00 99.1 81 20 115/79 (91) 09/14/18 00:00 99.1 101 20 119/71 (87) 09/13/18 23:19 Nasal Cannula 6.0 09/13/18 20:20 Nasal Cannula 6.0 44 09/13/18 20:19 99 Nasal Cannula 6.0 44 09/13/18 20:00 99.8 97 18 113/75 (88) 97 Height (Feet): 5 Height (Inches): 11.00 Weight (Pounds): 151 Objective GENERAL: The patient is a well-developed and well nourished male, in no apparent distress. HEENT: Eyes, pupils are equal and responsive to light and accommodation. Extraocular movements are intact. NECK: Supple without lymphadenopathy. CHEST: Decreased crackles in bilateral bases. Otherwise, clear to auscultation without wheezes or rales. CARDIOVASCULAR: Regular rhythm and rate. S1 and S2 are normal without murmurs, rubs, or gallops. ABDOMEN: Soft, nontender, and nondistended. Positive bowel sounds. No evidence of hepatosplenomegaly. Currently, no rebound or guarding noted. EXTREMITIES: Negative for clubbing, cyanosis, or edema. Laboratory Tests Test 09/14/18 05:15 White Blood Count 16.5 K/UL (4.8-10.8) H Red Blood Count 2.78 M/UL (4.70-6.10) L Hemoglobin 8.3 G/DL (14.2-18.0) L Hematocrit 25.3 % (42.0-52.0) L Mean Corpuscular Volume 91 FL (80-99) Mean Corpuscular Hemoglobin 30.0 PG (27.0-31.0) Mean Corpuscular Hemoglobin Concent 33.0 G/DL (32.0-36.0) Red Cell Distribution Width 18.2 % (11.6-14.8) H Platelet Count 368 K/UL (150-450) Mean Platelet Volume 6.3 FL (6.5-10.1) L Neutrophils (%) (Auto) 52.1 % (45.0-75.0) Lymphocytes (%) (Auto) 34.5 % (20.0-45.0) Monocytes (%) (Auto) 6.6 % (1.0-10.0) Eosinophils (%) (Auto) 5.9 % (0.0-3.0) H Basophils (%) (Auto) 0.8 % (0.0-2.0) Erythrocyte Sedimentation Rate 41 MM/HR (0-15) H Sodium Level 138 MMOL/L (136-145) Potassium Level 4.6 MMOL/L (3.5-5.1) Chloride Level 104 MMOL/L (98-107) Carbon Dioxide Level 30 MMOL/L (21-32) Anion Gap 4 mmol/L (5-15) L Blood Urea Nitrogen 21 mg/dL (7-18) H Creatinine 1.0 MG/DL (0.55-1.30) Estimat Glomerular Filtration Rate > 60 mL/min (>60) Glucose Level 98 MG/DL (74-106) Calcium Level 9.6 MG/DL (8.5-10.1) Phosphorus Level 3.2 MG/DL (2.5-4.9) Magnesium Level 1.7 MG/DL (1.8-2.4) L Total Bilirubin 0.9 MG/DL (0.2-1.0) Aspartate Amino Transf (AST/SGOT) 67 U/L (15-37) H Alanine Aminotransferase (ALT/SGPT) 65 U/L (12-78) Alkaline Phosphatase 204 U/L (46-116) H C-Reactive Protein, Quantitative 8.9 mg/dL (0.00-0.90) H Total Protein 6.5 G/DL (6.4-8.2) Albumin 3.3 G/DL (3.4-5.0) L Globulin 3.2 g/dL Albumin/Globulin Ratio 1.0 (1.0-2.7) Current Medications Medications (Trade) Dose Ordered Sig/Anthony Route PRN Reason Start Time Stop Time Status Last Admin Dose Admin Acetaminophen (Tylenol) 650 mg Q4H PRN ORAL fever 09/10/18 17:45 10/10/18 17:44 09/10/18 23:22 Al Hydroxide/Mg Hydroxide (Mylanta II) 30 ml Q6H PRN ORAL dyspepsia 09/10/18 17:45 10/10/18 17:44 Albuterol/ Ipratropium (Albuterol/ Ipratropium) 3 ml Q4H PRN HHN Shortness of Breath 09/12/18 13:30 09/17/18 13:29 09/13/18 15:23 Dextrose (Dextrose 50%) 25 ml Q30M PRN IV Hypoglycemia 09/10/18 18:15 10/10/18 18:05 Dextrose (Dextrose 50%) 50 ml Q30M PRN IV hypoglycemia 09/10/18 18:15 10/10/18 18:14 Diphenhydramine HCl (Benadryl) 25 mg Q4H PRN ORAL Itching 09/12/18 13:15 10/12/18 13:14 Diphenhydramine HCl (Benadryl) 50 mg Q4H PRN IVP Itching 09/12/18 15:00 10/12/18 14:59 09/14/18 14:13 Heparin Sodium (Porcine) (Heparin 5000 units/ml) 5,000 units EVERY 12 HOURS SUBQ 09/10/18 21:00 10/10/18 20:59 09/13/18 22:00 Hydralazine HCl (Apresoline) 25 mg Q6H PRN ORAL SBP>160 09/11/18 08:15 10/11/18 08:14 Hydromorphone HCl (Dilaudid) 2 mg Q3H PRN IV pain 4-6 09/10/18 17:45 09/17/18 17:44 09/12/18 15:42 Hydromorphone HCl (Dilaudid) 3 mg Q3H PRN IVP For Pain 7-10 09/10/18 17:45 09/17/18 17:44 09/14/18 14:13 Hydroxyurea (Hydrea) 500 mg BID ORAL 09/11/18 09:00 09/16/18 08:59 09/14/18 09:23 Lacosamide (Vimpat) 100 mg Q12H ORAL 09/11/18 06:00 10/11/18 05:59 09/14/18 06:35 Levofloxacin 100 ml @ 100 mls/hr Q24H IVPB 09/11/18 13:00 09/18/18 12:59 09/14/18 13:13 Lorazepam (Ativan 2mg/ml 1ml) 0.5 mg Q4H PRN IV For Anxiety 09/10/18 17:45 09/17/18 17:44 Methadone HCl (Methadone HCl) 60 mg Q6HR ORAL 09/11/18 12:00 09/18/18 11:59 09/14/18 12:20 Naloxone HCl (Narcan) 0.2 mg Q30M PRN IVP respritory depression RR<8/min 09/11/18 20:45 10/11/18 20:44 Ondansetron HCl (Zofran) 4 mg Q6H PRN IVP Nausea & Vomiting 09/10/18 17:45 10/10/18 17:44 Polyethylene Glycol (Miralax) 17 gm HSPRN PRN ORAL Constipation 09/10/18 17:45 10/10/18 17:44 Promethazine HCl/ Codeine (Phenergan with Codeine) 5 ml Q4H PRN ORAL For Cough 09/11/18 12:15 10/11/18 12:14 Salmeterol Xinafoate/ Fluticasone (Advair 250/50 Diskus) 1 puffs Q4H PRN INH Shortness of Breath 09/11/18 08:15 10/11/18 08:14 Sodium Chloride 1,000 ml @ 75 mls/hr [id number] IV 09/10/18 17:33 10/10/18 17:32 09/14/18 13:13 Theophylline (Gee-Dur) 100 mg EVERY 12 HOURS ORAL 09/11/18 21:00 10/11/18 20:59 09/14/18 09:23 Zolpidem Tartrate (Ambien) 5 mg HSPRN PRN ORAL Insomnia 09/10/18 17:45 09/17/18 17:44 09/14/18 00:38 Iasdora Frankel M.D. Sep 14, 2018 16:09
--- NOTE | 2018-09-14 16:32 | Internal Med Progress Note ---
Subjective Physician Name Wan Zarate Attending Physician Wan Zarate MD Current Medications Medications (Trade) Dose Ordered Sig/Anthony Route PRN Reason Start Time Stop Time Status Last Admin Dose Admin Acetaminophen (Tylenol) 650 mg Q4H PRN ORAL fever 09/10/18 17:45 10/10/18 17:44 09/10/18 23:22 Al Hydroxide/Mg Hydroxide (Mylanta II) 30 ml Q6H PRN ORAL dyspepsia 09/10/18 17:45 10/10/18 17:44 Albuterol/ Ipratropium (Albuterol/ Ipratropium) 3 ml Q4H PRN HHN Shortness of Breath 09/12/18 13:30 09/17/18 13:29 09/13/18 15:23 Dextrose (Dextrose 50%) 25 ml Q30M PRN IV Hypoglycemia 09/10/18 18:15 10/10/18 18:05 Dextrose (Dextrose 50%) 50 ml Q30M PRN IV hypoglycemia 09/10/18 18:15 10/10/18 18:14 Diphenhydramine HCl (Benadryl) 25 mg Q4H PRN ORAL Itching 09/12/18 13:15 10/12/18 13:14 Diphenhydramine HCl (Benadryl) 50 mg Q4H PRN IVP Itching 09/12/18 15:00 10/12/18 14:59 09/14/18 14:13 Heparin Sodium (Porcine) (Heparin 5000 units/ml) 5,000 units EVERY 12 HOURS SUBQ 09/10/18 21:00 10/10/18 20:59 09/13/18 22:00 Hydralazine HCl (Apresoline) 25 mg Q6H PRN ORAL SBP>160 09/11/18 08:15 10/11/18 08:14 Hydromorphone HCl (Dilaudid) 2 mg Q3H PRN IV pain 4-6 09/10/18 17:45 09/17/18 17:44 09/12/18 15:42 Hydromorphone HCl (Dilaudid) 3 mg Q3H PRN IVP For Pain 7-10 09/10/18 17:45 09/17/18 17:44 09/14/18 14:13 Hydroxyurea (Hydrea) 500 mg BID ORAL 09/11/18 09:00 09/16/18 08:59 09/14/18 09:23 Lacosamide (Vimpat) 100 mg Q12H ORAL 09/11/18 06:00 10/11/18 05:59 09/14/18 06:35 Lorazepam (Ativan 2mg/ml 1ml) 0.5 mg Q4H PRN IV For Anxiety 09/10/18 17:45 09/17/18 17:44 Methadone HCl (Methadone HCl) 60 mg Q6HR ORAL 09/11/18 12:00 09/18/18 11:59 09/14/18 12:20 Naloxone HCl (Narcan) 0.2 mg Q30M PRN IVP respritory depression RR<8/min 09/11/18 20:45 10/11/18 20:44 Ondansetron HCl (Zofran) 4 mg Q6H PRN IVP Nausea & Vomiting 09/10/18 17:45 10/10/18 17:44 Polyethylene Glycol (Miralax) 17 gm HSPRN PRN ORAL Constipation 09/10/18 17:45 10/10/18 17:44 Promethazine HCl/ Codeine (Phenergan with Codeine) 5 ml Q4H PRN ORAL For Cough 09/11/18 12:15 10/11/18 12:14 Salmeterol Xinafoate/ Fluticasone (Advair 250/50 Diskus) 1 puffs Q4H PRN INH Shortness of Breath 09/11/18 08:15 10/11/18 08:14 Sodium Chloride 1,000 ml @ 75 mls/hr [id number] IV 09/10/18 17:33 10/10/18 17:32 09/14/18 13:13 Theophylline (Gee-Dur) 100 mg EVERY 12 HOURS ORAL 09/11/18 21:00 10/11/18 20:59 09/14/18 09:23 Zolpidem Tartrate (Ambien) 5 mg HSPRN PRN ORAL Insomnia 09/10/18 17:45 09/17/18 17:44 09/14/18 00:38 Allergies: Coded Allergies: PENTAMIDINE ISETHIONATE (Verified Allergy, Severe, palpitations, 08/27/17) AMPICILLIN (Verified Allergy, Unknown, hives, 01/05/18) Tolerated CEftriaxone 01/02/18 KETOROLAC (Verified Allergy, Unknown, 08/03/16) MORPHINE (Verified Allergy, Unknown, 08/03/16) PHENYTOIN (Verified Allergy, Unknown, 08/03/16) Subjective Alert, oriented, responsive, denies any chest pain, complained about shortness of breath and cough. Objective Last Vital Signs Date Time Temp Pulse Resp B/P (MAP) Pulse Ox O2 Delivery O2 Flow Rate FiO2 09/14/18 08:00 98.9 88 20 113/69 (84) 96 09/14/18 07:56 Nasal Cannula 6.0 44 Laboratory Tests Test 09/14/18 05:15 White Blood Count 16.5 K/UL (4.8-10.8) H Red Blood Count 2.78 M/UL (4.70-6.10) L Hemoglobin 8.3 G/DL (14.2-18.0) L Hematocrit 25.3 % (42.0-52.0) L Mean Corpuscular Volume 91 FL (80-99) Mean Corpuscular Hemoglobin 30.0 PG (27.0-31.0) Mean Corpuscular Hemoglobin Concent 33.0 G/DL (32.0-36.0) Red Cell Distribution Width 18.2 % (11.6-14.8) H Platelet Count 368 K/UL (150-450) Mean Platelet Volume 6.3 FL (6.5-10.1) L Neutrophils (%) (Auto) 52.1 % (45.0-75.0) Lymphocytes (%) (Auto) 34.5 % (20.0-45.0) Monocytes (%) (Auto) 6.6 % (1.0-10.0) Eosinophils (%) (Auto) 5.9 % (0.0-3.0) H Basophils (%) (Auto) 0.8 % (0.0-2.0) Erythrocyte Sedimentation Rate 41 MM/HR (0-15) H Sodium Level 138 MMOL/L (136-145) Potassium Level 4.6 MMOL/L (3.5-5.1) Chloride Level 104 MMOL/L (98-107) Carbon Dioxide Level 30 MMOL/L (21-32) Anion Gap 4 mmol/L (5-15) L Blood Urea Nitrogen 21 mg/dL (7-18) H Creatinine 1.0 MG/DL (0.55-1.30) Estimat Glomerular Filtration Rate > 60 mL/min (>60) Glucose Level 98 MG/DL (74-106) Calcium Level 9.6 MG/DL (8.5-10.1) Phosphorus Level 3.2 MG/DL (2.5-4.9) Magnesium Level 1.7 MG/DL (1.8-2.4) L Total Bilirubin 0.9 MG/DL (0.2-1.0) Aspartate Amino Transf (AST/SGOT) 67 U/L (15-37) H Alanine Aminotransferase (ALT/SGPT) 65 U/L (12-78) Alkaline Phosphatase 204 U/L (46-116) H C-Reactive Protein, Quantitative 8.9 mg/dL (0.00-0.90) H Total Protein 6.5 G/DL (6.4-8.2) Albumin 3.3 G/DL (3.4-5.0) L Globulin 3.2 g/dL Albumin/Globulin Ratio 1.0 (1.0-2.7) Intake and Output 09/13/18 09/14/18 19:00 07:00 Intake Total 900 ml Balance 900 ml IV Total 900 ml Objective General: No acute distress, awake and alert HEENT: NCAT, sclera anicteric, PERRL, EOMI. Neck: Supple, no significant jugular venous distention, Chest wall: Right-sided [place]. Lungs: Good inspiratory effort, no Wheeze. Bilateral coarse breath sounds, Heart: Regular rate and rhythm, normal S1/S2, no murmur. Abdomen: soft, nontender, nondistended. Normoactive bowel sounds. / Rectal: Refused and deferred. Extremities: No Cyanosis , clubbing or edema. Neuro: A&O x 3, Able to move all extremities Skin: warm, no rashes or lesions Psych: Normal mood and affect Assessment/Plan Assessment/Plan (1) Sickle cell disease (2) Anemia Assessment & Plan: Severe. S/P transfusion 1 unit PRBC 09/10/18 (3) Sickle cell crisis Assessment & Plan: Pain management per pain team (4) Seizure disorder (5) Pulmonary HTN Assessment & Plan: Continue hydralazine (6) Avascular necrosis of femur head, right (7) Avascular necrosis of femur head, left (8) Purulent bronchitis /pneumonia. Assessment & Plan: Complete course of Levaquin. (9) severe diastolic heart disease Plan: DVT prophylaxis with heparin subcu. Continue pain management. Encourage ambulation. DC planning home in 1-2 days. CODE STATUS: Full code. Wan Zarate MD Sep 14, 2018 16:32
--- NOTE | 2018-09-14 19:45 | NUR ---
HAND-OFF: Report given to Faiza VILLALOBOS.
[2018-09-14 20:00] VITALS: BP 104/73
--- NOTE | 2018-09-14 20:00 | NUR ---
NURSE NOTES: Pt lying in bed w/bed in lowest position and call light within reach. Pt A&Ox4; VSS; on 5L NC; and in no apparent distress. Rt chest port-a-cath intact/asymptomatic w/IVF @ 75 ml/hr and skin intact. Pt has no complaints or concerns at this time. Will continue to monitor.
[2018-09-15] VITALS: BP 124/85
--- NOTE | 2018-09-15 00:15 | General Progress Note ---
Assessment/Plan Assessment/Plan ASSESSMENT/Recs # Anemia of chronic disease due to underlying chronic medical issues, multifactorial --> Anemia workup has been reviewed --> No evidence of hemolysis is noted, peripheral smear has been reviewed. --> Hgb goal >7. Transfuse prn. --> Epogen or iron at this time is not particularly indicated --> Medications have been reviewed Leukocytosis. Likely related to underlying infection versus reactive process. --> have reviewed peripheral smear and bandemia/neutrophilia noted --> continue antibiotics if they have been started by ID team --> monitor for resolution # Probable bronchitis, the patient received ceftriaxone and doxycycline in the emergency room. -->A Pulmonary consultation has been obtained with Dr. Hanna Mckenna. We will follow recommendations of Pulmonary. # Sickle cell disease, the patient currently has severe anemia. The patient may require transfusion during the hospitalization # History of seizure disorder, continue gabapentin as above. # Pulmonary hypertension. 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 The timing of this note does not necessarily reflect the time of the patient was seen. Greatly appreciate consultation! Subjective Date patient seen: Sep 14, 2018 Constitutional: Denies: no symptoms, chills, diaphoresis, fever, malaise, weakness, other HEENT: Denies: no symptoms, eye pain, blurred vision, tearing, double vision, ear pain, ear discharge, nose pain, nose congestion, throat pain, throat swelling, mouth pain, mouth swelling, other Cardiovascular: Denies: no symptoms, chest pain, edema, irregular heart rate, lightheadedness, palpitations, syncope, other Respiratory: Denies: no symptoms, cough, orthopnea, shortness of breath, SOB with excertion, SOB at rest, sputum, stridor, wheezing, other Gastrointestinal/Abdominal: Denies: no symptoms, abdomen distended, abdominal pain, black stools, tarry stools, blood in stool, constipated, diarrhea, difficulty swallowing, nausea, poor appetite, poor fluid intake, rectal bleeding , vomiting, other Genitourinary: Denies: no symptoms, burning, discharge, frequency, flank pain, hematuria, incontinence, pain, urgency, other 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: Denies: no symptoms, anxiety, depressed, emotional problems, headache, numbness, paresthesia, pre-existing deficit, seizure, tingling, tremors, weakness, other Endocrine: Denies: no symptoms, excessive sweating, flushing, intolerance to cold, intolerance to heat, increased hunger, increased thirst, increased urine, unexplained weight gain, unexplained weight loss, other Allergies: Coded Allergies: PENTAMIDINE ISETHIONATE (Verified Allergy, Severe, palpitations, 08/27/17) AMPICILLIN (Verified Allergy, Unknown, hives, 01/05/18) Tolerated CEftriaxone 01/02/18 KETOROLAC (Verified Allergy, Unknown, 08/03/16) MORPHINE (Verified Allergy, Unknown, 08/03/16) PHENYTOIN (Verified Allergy, Unknown, 08/03/16) Subjective 09/12: seen by bedside, awake, comfortable, wbc trending up, no events. 09/13: Pt is awake, comfortable, no acute distress. wbc trending down 09/14: Pt is alert, oriented, responsive,complained of shortness of breath and cough, wbc trending up at 16 Objective Last 24 Hour Vital Signs Date Time Temp Pulse Resp B/P (MAP) Pulse Ox O2 Delivery O2 Flow Rate FiO2 09/14/18 21:00 Nasal Cannula 6.0 09/14/18 20:06 98 Nasal Cannula 6.0 44 09/14/18 20:06 Nasal Cannula 6.0 44 09/14/18 20:00 98.0 88 18 104/73 (83) 97 09/14/18 16:00 99.5 89 18 113/71 (85) 97 09/14/18 12:00 98.5 79 19 117/81 (93) 97 09/14/18 09:00 Nasal Cannula 6.0 09/14/18 08:00 98.9 88 20 113/69 (84) 96 09/14/18 07:56 99 Nasal Cannula 6.0 44 09/14/18 07:56 Nasal Cannula 6.0 44 09/14/18 04:00 99.1 81 20 115/79 (91) Intake and Output 09/14/18 09/15/18 19:00 07:00 Intake Total 750 ml 75 ml Balance 750 ml 75 ml IV Total 750 ml 75 ml Laboratory Tests 09/14/18 05:15: White Blood Count 16.5H, Red Blood Count 2.78L, Hemoglobin 8.3L, Hematocrit 25.3L, Mean Corpuscular Volume 91, Mean Corpuscular Hemoglobin 30.0, Mean Corpuscular Hemoglobin Concent 33.0, Red Cell Distribution Width 18.2H, Platelet Count 368, Mean Platelet Volume 6.3L, Neutrophils (%) (Auto) 52.1, Lymphocytes (%) (Auto) 34.5, Monocytes (%) (Auto) 6.6, Eosinophils (%) (Auto) 5.9H, Basophils (%) (Auto) 0.8, Erythrocyte Sedimentation Rate 41H, Sodium Level 138, Potassium Level 4.6, Chloride Level 104, Carbon Dioxide Level 30, Anion Gap 4L, Blood Urea Nitrogen 21H, Creatinine 1.0, Estimat Glomerular Filtration Rate > 60, Glucose Level 98, Calcium Level 9.6, Phosphorus Level 3.2 , Magnesium Level 1.7L, Total Bilirubin 0.9, Aspartate Amino Transf (AST/SGOT) 67H, Alanine Aminotransferase (ALT/SGPT) 65, Alkaline Phosphatase 204H, C- Reactive Protein, Quantitative 8.9H, Total Protein 6.5, Albumin 3.3L, Globulin 3.2, Albumin/Globulin Ratio 1.0 Height (Feet): 5 Height (Inches): 11.00 Weight (Pounds): 151 Objective PHYSICAL EXAMINATION GENERAL: The patient is a well-developed and well nourished male, in no apparent distress. HEENT: Eyes, pupils are equal and responsive to light and accommodation. Extraocular movements are intact. NECK: Supple without lymphadenopathy. CHEST: Decreased crackles in bilateral bases. Otherwise, clear to auscultation without wheezes or rales. CARDIOVASCULAR: Regular rhythm and rate. S1 and S2 are normal without murmurs , rubs, or gallops. ABDOMEN: Soft, nontender, and nondistended. Positive bowel sounds. No evidence of hepatosplenomegaly. Currently, no rebound or guarding noted. EXTREMITIES: Negative for clubbing, cyanosis, or edema. Marco Dutton MD Sep 15, 2018 00:15
--- NOTE | 2018-09-15 00:45 | Consultation ---
DATE OF CONSULTATION: 09/14/2018 CONSULTING PHYSICIAN: Deysi Green M.D. ATTENDING PHYSICIAN: Wan Zarate M.D. REASON FOR CONSULTATION: Wound care prevention, also port site check. HISTORY OF PRESENT ILLNESS: This is a 42-year-old male who was admitted for chest pain and also cough. The patient was admitted for pneumonia and is on antibiotics. PAST MEDICAL HISTORY: 1. Sickle cell disorder. 2. Seizure disorder. 3. Avascular necrosis of bilateral hips. PAST SURGICAL HISTORY: 1. Tonsillectomy and adenoidectomy. 2. Left tibia fracture. 3. 01:49. MEDICATIONS: Tylenol, Benadryl, gabapentin, ceftriaxone, doxycycline, Dilaudid, hydroxyurea, methadone. SOCIAL HISTORY: The patient denies tobacco or alcohol use. REVIEW OF SYSTEMS: A complete 14-point review of systems, the patient denies any weight loss or weight gain or any fevers and chills. HEENT: The patient denies any ear or throat pain or headaches. CARDIOVASCULAR: The patient denies any current chest pain. CHEST: The patient still has a little bit of shortness of breath, but states it is improving. ABDOMINAL: The patient has no nausea or vomiting. NEUROMUSCULAR: The patient has weakness because of the avascular necrosis of his hips. PHYSICAL EXAMINATION: GENERAL: The patient is afebrile. He is alert and oriented, no acute distress. VITAL SIGNS: Stable. HEENT: Pupils are equal, responsive to light. ABDOMEN: Soft, nontender, nondistended. EXTREMITIES: Negative for clubbing, cyanosis or edema. ASSESSMENT: 1. This is a patient who has chronic pain. He was recently admitted for chest pain and is being treated for pneumonia with IV antibiotics. The patient has a port through which he is receiving intravenous antibiotics. The port site looks good, no redness and I recommend just monitoring his port site to make sure there are no signs of infection. 2. The patient stated that he is scheduled for bilateral hip surgery in November because he has chronic pain and generalized weakness. I discussed the patient precautions to prevent any pressure sores while he is here in the hospital for admission and then also after he had the surgery. These recommendations were for him to turn and reposition q.2 h. and to moisturize his skin. Also, I recommended that when he is in bed, to float his heels off the mattress and also make sure to his mattress and also his linens to make sure that they are dry and wrinkle free. Deysi Green M.D. DR: David JOB#: [id number] CC: LELAND
[2018-09-15] MEDS: Zolpidem 5mg tab ORAL PRN (00:59)
--- NOTE | 2018-09-15 01:04 | NUR ---
NURSE NOTES: Patient states he would like his methadone together with Ambien. I have educated the patient that we do not give medications together that can sedate him. Patient has been educated on the risks of taking these two medications very close together. Patient verbalized understanding of risks of taking Methadone and Ambien together. Patient continuously insists that he takes the same medications together and can tolerate the medications. Patient has also been educated that his next dose for Methadone will be available to him at 7:30 in the morning instead of 0600, because he had taken is 1800 dose at a later time. [facility] has been notified to adjust the schedule accordingly.
[2018-09-15] MEDS: DiphenhydrAMINE 50mg/ml Inj IVP PRN ×6 (02:39→23:13)
[2018-09-15 04:00] VITALS: BP 126/82
[2018-09-15] MEDS: Lacosamide 50mg tablet ORAL SCH ×2 (06:55→17:28)
--- NOTE | 2018-09-15 07:24 | NUR ---
HAND-OFF: Report given to GRISELDA Foley.
--- NOTE | 2018-09-15 07:33 | NUR ---
NURSE NOTES: Received pt from GRISELDA Kendall, pt is sleeping, no acute distress. call light w/in reach
[2018-09-15 08:00] VITALS: BP 130/78
[2018-09-15] MEDS: Hydroxyurea 500mg cap ORAL SCH ×2 (09:53→17:28)
[2018-09-15] MEDS: Theophylline ER 100mg ORAL SCH ×2 (09:53→20:47)
[2018-09-15] MEDS: Heparin 5000 units/ml inj SUBQ SCH ×2 (09:56→20:52)
[2018-09-15 12:00] VITALS: BP 113/73
--- NOTE | 2018-09-15 14:50 | Infectious Diseases Prog Note ---
Assessment/Plan Assessment/Plan A: Acute sickle cell crisis Acute bronchitis, Sp RX -09/13 CXR: Bilateral interstitial and airspace disease is again demonstrated, unchanged. Scarring or atelectasis are seen in the left perihilar region and left lung base. -CXR: Suspected congestive heart failure. Suspect chronic interstitial disease as well -influenza sc neg -sp cx p Afebrile Leukocytosis, incrased- reactive in the setting of acute sickle crisis -Bcx NTD sickle cell anemia seizure disorder b/l DVT avascular necrosis b/l hips s/p tonsillectomy L tibia/fibula fx s/p ORIF pneumothorax COPD/asthma on home O2 HTN dCHF severe pHTN Plan: - Monitor pt off of AB Rx - 09/15 Sp Levaquin #4 (abx d #/) -09/10 SP Ceftriaxone and Doxycycline x1 -Monitor CBC/CMP, temperatures Subjective Allergies: Coded Allergies: PENTAMIDINE ISETHIONATE (Verified Allergy, Severe, palpitations, 08/27/17) AMPICILLIN (Verified Allergy, Unknown, hives, 01/05/18) Tolerated CEftriaxone 01/02/18 KETOROLAC (Verified Allergy, Unknown, 08/03/16) MORPHINE (Verified Allergy, Unknown, 08/03/16) PHENYTOIN (Verified Allergy, Unknown, 08/03/16) Subjective Afebrile Objective Vital Signs Last 24 Hour Vital Signs Date Time Temp Pulse Resp B/P (MAP) Pulse Ox O2 Delivery O2 Flow Rate FiO2 09/15/18 12:00 98.7 87 18 113/73 (86) 94 09/15/18 08:23 Nasal Cannula 5.0 09/15/18 08:00 99.0 84 18 130/78 (95) 98 09/15/18 07:52 Nasal Cannula 6.0 44 09/15/18 07:52 99 Nasal Cannula 6.0 44 09/15/18 04:00 98.4 83 18 126/82 (97) 100 09/15/18 00:00 98.7 77 18 124/85 (98) 100 09/14/18 21:00 Nasal Cannula 6.0 09/14/18 20:06 98 Nasal Cannula 6.0 44 09/14/18 20:06 Nasal Cannula 6.0 44 09/14/18 20:00 98.0 88 18 104/73 (83) 97 09/14/18 16:00 99.5 89 18 113/71 (85) 97 Height (Feet): 5 Height (Inches): 11.00 Weight (Pounds): 151 HEENT: atraumatic Respiratory/Chest: normal breath sounds Cardiovascular: regular rhythm Abdomen: soft, non tender Current Medications Medications (Trade) Dose Ordered Sig/Anthony Route PRN Reason Start Time Stop Time Status Last Admin Dose Admin Acetaminophen (Tylenol) 650 mg Q4H PRN ORAL fever 09/10/18 17:45 10/10/18 17:44 09/10/18 23:22 Al Hydroxide/Mg Hydroxide (Mylanta II) 30 ml Q6H PRN ORAL dyspepsia 09/10/18 17:45 10/10/18 17:44 Albuterol/ Ipratropium (Albuterol/ Ipratropium) 3 ml Q4H PRN HHN Shortness of Breath 09/12/18 13:30 09/17/18 13:29 09/13/18 15:23 Dextrose (Dextrose 50%) 25 ml Q30M PRN IV Hypoglycemia 09/10/18 18:15 10/10/18 18:05 Dextrose (Dextrose 50%) 50 ml Q30M PRN IV hypoglycemia 09/10/18 18:15 10/10/18 18:14 Diphenhydramine HCl (Benadryl) 25 mg Q4H PRN ORAL Itching 09/12/18 13:15 10/12/18 13:14 Diphenhydramine HCl (Benadryl) 50 mg Q4H PRN IVP Itching 09/12/18 15:00 10/12/18 14:59 09/15/18 11:06 Heparin Sodium (Porcine) (Heparin 5000 units/ml) 5,000 units EVERY 12 HOURS SUBQ 09/10/18 21:00 10/10/18 20:59 09/15/18 09:56 Hydralazine HCl (Apresoline) 25 mg Q6H PRN ORAL SBP>160 09/11/18 08:15 10/11/18 08:14 Hydromorphone HCl (Dilaudid) 2 mg Q3H PRN IV pain 4-6 09/10/18 17:45 09/17/18 17:44 09/12/18 15:42 Hydromorphone HCl (Dilaudid) 3 mg Q3H PRN IVP For Pain 7-10 09/10/18 17:45 09/17/18 17:44 09/15/18 11:07 Hydroxyurea (Hydrea) 500 mg BID ORAL 09/11/18 09:00 09/16/18 08:59 09/15/18 09:53 Lacosamide (Vimpat) 100 mg Q12H ORAL 09/11/18 06:00 10/11/18 05:59 09/15/18 06:55 Lorazepam (Ativan 2mg/ml 1ml) 0.5 mg Q4H PRN IV For Anxiety 09/10/18 17:45 09/17/18 17:44 Methadone HCl (Methadone HCl) 60 mg Q6H ORAL 09/15/18 01:30 09/18/18 13:29 09/15/18 13:58 Naloxone HCl (Narcan) 0.2 mg Q30M PRN IVP respritory depression RR<8/min 09/11/18 20:45 10/11/18 20:44 Ondansetron HCl (Zofran) 4 mg Q6H PRN IVP Nausea & Vomiting 09/10/18 17:45 10/10/18 17:44 Polyethylene Glycol (Miralax) 17 gm HSPRN PRN ORAL Constipation 09/10/18 17:45 10/10/18 17:44 Promethazine HCl/ Codeine (Phenergan with Codeine) 5 ml Q4H PRN ORAL For Cough 09/11/18 12:15 10/11/18 12:14 Salmeterol Xinafoate/ Fluticasone (Advair 250/50 Diskus) 1 puffs Q4H PRN INH Shortness of Breath 09/11/18 08:15 10/11/18 08:14 Sodium Chloride 1,000 ml @ 75 mls/hr [id number] IV 09/10/18 17:33 10/10/18 17:32 09/15/18 04:13 Theophylline (Gee-Dur) 100 mg EVERY 12 HOURS ORAL 09/11/18 21:00 10/11/18 20:59 09/15/18 09:53 Zolpidem Tartrate (Ambien) 5 mg HSPRN PRN ORAL Insomnia 09/10/18 17:45 09/17/18 17:44 09/15/18 00:59 Piyush Duran MD Sep 15, 2018 14:50
[2018-09-15] MEDS ORDERED: Tubing IV Secondary IV ONE (15:29)
[2018-09-15] MEDS ORDERED: 1/2 NS 1000ml IV ONE (15:29)
[2018-09-15 16:00] VITALS: BP 120/85
--- NOTE | 2018-09-15 16:51 | Internal Med Progress Note ---
Subjective Date of Service: Sep 15, 2018 Physician Name Mehdi Rosales Attending Physician Wan Zarate MD Current Medications Medications (Trade) Dose Ordered Sig/Anthony Route PRN Reason Start Time Stop Time Status Last Admin Dose Admin Acetaminophen (Tylenol) 650 mg Q4H PRN ORAL fever 09/10/18 17:45 10/10/18 17:44 09/10/18 23:22 Al Hydroxide/Mg Hydroxide (Mylanta II) 30 ml Q6H PRN ORAL dyspepsia 09/10/18 17:45 10/10/18 17:44 Albuterol/ Ipratropium (Albuterol/ Ipratropium) 3 ml Q4H PRN HHN Shortness of Breath 09/12/18 13:30 09/17/18 13:29 09/13/18 15:23 Dextrose (Dextrose 50%) 25 ml Q30M PRN IV Hypoglycemia 09/10/18 18:15 10/10/18 18:05 Dextrose (Dextrose 50%) 50 ml Q30M PRN IV hypoglycemia 09/10/18 18:15 10/10/18 18:14 Diphenhydramine HCl (Benadryl) 25 mg Q4H PRN ORAL Itching 09/12/18 13:15 10/12/18 13:14 Diphenhydramine HCl (Benadryl) 50 mg Q4H PRN IVP Itching 09/12/18 15:00 10/12/18 14:59 09/15/18 15:12 Heparin Sodium (Porcine) (Heparin 5000 units/ml) 5,000 units EVERY 12 HOURS SUBQ 09/10/18 21:00 10/10/18 20:59 09/15/18 09:56 Hydralazine HCl (Apresoline) 25 mg Q6H PRN ORAL SBP>160 09/11/18 08:15 10/11/18 08:14 Hydromorphone HCl (Dilaudid) 2 mg Q3H PRN IV pain 4-6 09/10/18 17:45 09/17/18 17:44 09/12/18 15:42 Hydromorphone HCl (Dilaudid) 3 mg Q3H PRN IVP For Pain 7-10 09/10/18 17:45 09/17/18 17:44 09/15/18 15:13 Hydroxyurea (Hydrea) 500 mg BID ORAL 09/11/18 09:00 09/16/18 08:59 09/15/18 09:53 Lacosamide (Vimpat) 100 mg Q12H ORAL 09/11/18 06:00 10/11/18 05:59 09/15/18 06:55 Lorazepam (Ativan 2mg/ml 1ml) 0.5 mg Q4H PRN IV For Anxiety 09/10/18 17:45 09/17/18 17:44 Methadone HCl (Methadone HCl) 60 mg Q6H ORAL 09/15/18 01:30 09/18/18 13:29 09/15/18 13:58 Naloxone HCl (Narcan) 0.2 mg Q30M PRN IVP respritory depression RR<8/min 09/11/18 20:45 10/11/18 20:44 Ondansetron HCl (Zofran) 4 mg Q6H PRN IVP Nausea & Vomiting 09/10/18 17:45 10/10/18 17:44 Polyethylene Glycol (Miralax) 17 gm HSPRN PRN ORAL Constipation 09/10/18 17:45 10/10/18 17:44 Promethazine HCl/ Codeine (Phenergan with Codeine) 5 ml Q4H PRN ORAL For Cough 09/11/18 12:15 10/11/18 12:14 Salmeterol Xinafoate/ Fluticasone (Advair 250/50 Diskus) 1 puffs Q4H PRN INH Shortness of Breath 09/11/18 08:15 10/11/18 08:14 Sodium Chloride 1,000 ml @ 75 mls/hr [id number] IV 09/10/18 17:33 10/10/18 17:32 09/15/18 04:13 Theophylline (Gee-Dur) 100 mg EVERY 12 HOURS ORAL 09/11/18 21:00 10/11/18 20:59 09/15/18 09:53 Zolpidem Tartrate (Ambien) 5 mg HSPRN PRN ORAL Insomnia 09/10/18 17:45 09/17/18 17:44 09/15/18 00:59 Allergies: Coded Allergies: PENTAMIDINE ISETHIONATE (Verified Allergy, Severe, palpitations, 08/27/17) AMPICILLIN (Verified Allergy, Unknown, hives, 01/05/18) Tolerated CEftriaxone 01/02/18 KETOROLAC (Verified Allergy, Unknown, 08/03/16) MORPHINE (Verified Allergy, Unknown, 08/03/16) PHENYTOIN (Verified Allergy, Unknown, 08/03/16) ROS Limited/Unobtainable: No Constitutional: Reports: no symptoms HEENT: Reports: no symptoms Cardiovascular: Reports: no symptoms Respiratory: Reports: no symptoms Gastrointestinal/Abdominal: Reports: no symptoms Genitourinary: Reports: no symptoms 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: Reports: no symptoms Subjective 42 YO M with sickle cell dis admitted with cough. Now bronchitis and CHF. Cover for Int Med-DR Zarate. Objective Last Vital Signs Date Time Temp Pulse Resp B/P (MAP) Pulse Ox O2 Delivery O2 Flow Rate FiO2 09/15/18 14:30 73 16 Nasal Cannula 5.0 40 09/15/18 12:00 98.7 113/73 (86) 94 Intake and Output 09/14/18 09/15/18 19:00 07:00 Intake Total 750 ml 750 ml Output Total 1000 ml Balance 750 ml -250 ml IV Total 750 ml 750 ml Output Urine Total 1000 ml Objective General Appearance: WD/WN, no apparent distress, alert EENT: PERRL/EOMI, normal ENT inspection Neck: non-tender, normal alignment, supple, normal inspection Cardiovascular: normal peripheral pulses, normal rate, regular rhythm, no gallop/murmur, no JVD Respiratory/Chest: chest wall non-tender, crackles/rales, rhonchi - bilaterally , expiratory wheezing Abdomen: normal bowel sounds, non tender, soft, no organomegaly, no mass Extremities: normal range of motion, non-tender Neurologic: quality improvement coordinator (rn) 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, no motor/sensory deficits Skin: normal pigmentation, warm/dry Assessment/Plan Problem List: (1) Sickle cell disease (2) Anemia Assessment & Plan: Severe. S/P transfusion 1 unit PRBC 09/10/18 (3) Sickle cell crisis Assessment & Plan: Pain management per pain team (4) Seizure disorder (5) Pulmonary HTN Assessment & Plan: Continue hydralazine (6) Avascular necrosis of femur head, right (7) Avascular necrosis of femur head, left (8) Purulent bronchitis Assessment & Plan: Continue levaquin per pulmonary (9) severe diastolic heart disease Mehdi Rosales MD Sep 15, 2018 16:51
--- NOTE | 2018-09-15 19:26 | NUR ---
NURSE NOTES: PATIENT IN BED, AWAKE, ALERT, TALKING ON THE PHONE. EXPLAINED THAT SINCE NURSE IS GIVING HIM DILAUDID AND BENADRYL, METHADONE WON'T BE GIVEN UNTIL 2029, PATIENT VERBALIZED UNDERSTANDING. PORTACATH IN PLACE. NO S/S DISTRESS NOTED. BED IN LOWEST POSITION, CALL LIGHT WITHIN REACH. WILL CONTINUE TO MONITOR.
--- NOTE | 2018-09-15 19:55 | NUR ---
HAND-OFF: Report given to GRISELDA Ghosh.
[2018-09-15 20:22] VITALS: BP 129/73
[2018-09-16 00:36] VITALS: BP 112/81
[2018-09-16] MEDS: Zolpidem 5mg tab ORAL PRN (02:15)
--- NOTE | 2018-09-16 02:18 | NUR ---
NURSE NOTES: Patient requested for both Methadone and Ambien. I educated the patient giving both medications together can oversedate him. Patient educated on the risks of taking these two medications together. Patient verbalized understanding of risks of taking Methadone and Ambien together. Patient remains insistent on taking the medications together and can tolerate the medications. Charge nurse made aware and she stated it was okay to give as patient tolerated the medications together the previous nights. Will continue to monitor.
[2018-09-16] MEDS: DiphenhydrAMINE 50mg/ml Inj IVP PRN ×4 (03:24→15:44)
[2018-09-16 04:29] VITALS: BP 137/87
[2018-09-16] MEDS: Lacosamide 50mg tablet ORAL SCH (05:50)
--- NOTE | 2018-09-16 07:30 | NUR ---
HAND-OFF: Report given to ESTEBAN PIERRE RN. ENDORSED TO AM NURSE METHADONE FOR 729 CANNOT BE GIVEN SINCE PATIENT REQUESTED AND RECEIVED BENAGRYL PRN AND DILAUDID PRN MEDICATIONS.
[2018-09-16 07:55] LABS: HEMATOCRIT 24.9 % (42.0-52.0); HEMOGLOBIN 8.1 G/DL (14.2-18.0); LYMPHOCYTES % (AUTO) 46.7 % (20.0-45.0); MEAN CORPUSCULAR VOLUME 90 FL (80-99); MONOCYTES % (AUTO) 5.5 % (1.0-10.0); NEUTROPHILS % (AUTO) 32.8 % (45.0-75.0); PLATELET COUNT 338 K/UL (150-450); RED BLOOD COUNT 2.76 M/UL (4.70-6.10); RED CELL DISTRIBUTION WIDTH 17.2 % (11.6-14.8); WHITE BLOOD COUNT 17.1 K/UL (4.8-10.8)
[2018-09-16 08:00] VITALS: BP 126/75
--- NOTE | 2018-09-16 08:00 | NUR ---
NURSE NOTES: Received patient from GRISELDA Ghosh stable condition reporting pain 8/10 medication given awake alert seating on bed. retail shift manager nurse reported and gave to day shift nurse GRISELDA Mejia the 3 pills found on the bed by EARLENE Cortes.Day shift RN verified if patient has any medication at bedside patient stated no medication at bedside RN asked permission to check the patient belonging and no medication found. retail shift manager and day shift nurse went the pharmacy to identify the pill and medication identified by harley Simmons as Methadone the medication also checked if it matches the medication provided by pharmacy and it matches. The three pill wasted by the pharmacist witnessed and signed by GRISELDA Mejia & harley Simmons.
[2018-09-16 08:22] LABS: ANION GAP 7 mmol/L (5-15); BLOOD UREA NITROGEN 29 mg/dL (7-18); CALCIUM 10.1 MG/DL (8.5-10.1); CARBON DIOXIDE 28 MMOL/L (21-32); CHLORIDE 104 MMOL/L (98-107); CREATININE 0.9 MG/DL (0.55-1.30); POTASSIUM 5.1 MMOL/L (3.5-5.1); SODIUM 139 MMOL/L (136-145)
[2018-09-16] MEDS: Theophylline ER 100mg ORAL SCH (08:32)
[2018-09-16] MEDS: Heparin 5000 units/ml inj SUBQ SCH (08:33)
--- NOTE | 2018-09-16 08:35 | NUR ---
NURSE NOTES: Seen pt, resting in bed at this time. Pt is AAOX3, resp is even, no SOB noted. c/o generalized pain 01/23, no distress noted. will f/u pain med as schedule. IVF infusing well to Right Chest Port intact. Call light w/in reach.
--- NOTE | 2018-09-16 09:29 | General Progress Note ---
Assessment/Plan Assessment/Plan (1) Intractable pain (2) Avascular necrosis of femur head, left (3) Sickle cell disease and crisis (4) Avascular necrosis of femur head, right Patient will be continued on methadone and Dilaudid as needed. Pt was d/w Dr. Perera and he concurred. Subjective Date patient seen: Sep 16, 2018 Time patient seen: 08:30 - am Allergies: Coded Allergies: PENTAMIDINE ISETHIONATE (Verified Allergy, Severe, palpitations, 08/27/17) AMPICILLIN (Verified Allergy, Unknown, hives, 01/05/18) Tolerated CEftriaxone 01/02/18 KETOROLAC (Verified Allergy, Unknown, 08/03/16) MORPHINE (Verified Allergy, Unknown, 08/03/16) PHENYTOIN (Verified Allergy, Unknown, 08/03/16) Subjective Constitutional: Reports: chills HEENT: Denies: blurred vision, double vision, ear discharge, ear pain, eye pain , mouth pain, mouth swelling, nose congestion, nose pain, tearing, throat pain, throat swelling Cardiovascular: Denies: chest pain, edema, irregular heart rate, lightheadedness, palpitations, syncope Respiratory: Denies: SOB at rest, SOB with excertion, cough, orthopnea, shortness of breath, sputum, stridor, wheezing Gastrointestinal/Abdominal: Denies: abdomen distended, abdominal pain, black stools, blood in stool, constipated, diarrhea, difficulty swallowing, nausea, poor appetite, poor fluid intake, rectal bleeding, tarry stools, vomiting Genitourinary: Denies: burning, discharge, flank pain, frequency, hematuria, incontinence, pain, urgency 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: Denies: anxiety, depressed, emotional problems, headache, numbness, paresthesia, pre-existing deficit, seizure, tingling, tremors, weakness Endocrine: Reports: other, Denies: excessive sweating, flushing, increased hunger, increased thirst, increased urine, intolerance to cold, intolerance to heat, unexplained weight gain, unexplained weight loss Hematologic/Lymphatic: Denies: anemia, easy bleeding, easy bruising Subjective Patient is in bed sitting up reporting pain is stable on the Methadone and Dilaudid. He has no new complaints at this time. Objective Last 24 Hour Vital Signs Date Time Temp Pulse Resp B/P (MAP) Pulse Ox O2 Delivery O2 Flow Rate FiO2 09/16/18 08:26 97.6 09/16/18 07:46 75 19 Nasal Cannula 5.0 40 09/16/18 07:46 98 Nasal Cannula 5.0 40 09/16/18 07:46 Nasal Cannula 5.0 40 09/16/18 04:29 97.6 79 18 137/87 (104) 100 09/16/18 00:36 97.7 82 18 112/81 (91) 99 09/15/18 21:19 Nasal Cannula 5.0 09/15/18 21:18 98 Nasal Cannula 5.0 09/15/18 21:00 Nasal Cannula 5.0 09/15/18 20:22 97.6 83 18 129/73 (91) 99 09/15/18 16:00 98.9 78 18 120/85 (97) 94 09/15/18 14:30 73 16 Nasal Cannula 5.0 40 09/15/18 12:00 98.7 87 18 113/73 (86) 94 Intake and Output 09/15/18 09/16/18 18:59 06:59 Intake Total 500 ml 1110 ml Output Total 1000 ml 1000 ml Balance -500 ml 110 ml Intake Oral 500 ml 360 ml IV Total 750 ml Output Urine Total 1000 ml 1000 ml Laboratory Tests 09/16/18 05:40: White Blood Count 17.1H, Red Blood Count 2.76L, Hemoglobin 8.1L, Hematocrit 24.9L, Mean Corpuscular Volume 90, Mean Corpuscular Hemoglobin 29.3, Mean Corpuscular Hemoglobin Concent 32.5, Red Cell Distribution Width 17.2H, Platelet Count 338, Mean Platelet Volume 6.7, Neutrophils (%) (Auto) 32.8L, Lymphocytes (%) (Auto) 46.7H, Monocytes (%) (Auto) 5.5, Eosinophils (%) (Auto) 12.0H, Basophils (%) (Auto) 3.0H, Sodium Level 139, Potassium Level 5.1, Chloride Level 104, Carbon Dioxide Level 28, Anion Gap 7, Blood Urea Nitrogen 29H, Creatinine 0.9, Estimat Glomerular Filtration Rate > 60, Glucose Level 84, Calcium Level 10.1 Height (Feet): 5 Height (Inches): 11.00 Weight (Pounds): 151 Objective General Appearance: no apparent distress, alert EENT: PERRL/EOMI, normal ENT inspection Neck: non-tender, normal alignment Cardiovascular: normal rate, regular rhythm Respiratory/Chest: decreased breath sounds Abdomen: non tender, soft Extremities: non-tender Edema: no edema noted Arm (L), no edema noted Arm (R), no edema noted Leg (L), no edema noted Leg (R), no edema noted Pedal (L), no edema noted Pedal (R), no edema noted Generalized Neurologic: alert, oriented x 3 Skin: warm/dry Cj Anderson Sep 16, 2018 09:29
--- NOTE | 2018-09-16 10:51 | General Progress Note ---
Assessment/Plan Assessment/Plan Assessment/Recs: # Anemia of chronic disease due to underlying chronic medical issues, multifactorial --> Anemia workup has been reviewed --> No evidence of hemolysis is noted, peripheral smear has been reviewed. --> Hgb goal >7. Transfuse prn. --> Epogen or iron at this time is not particularly indicated --> Medications have been reviewed # Leukocytosis. Likely related to underlying infection versus reactive process --> have reviewed peripheral smear and bandemia/neutrophilia noted --> continue antibiotics if they have been started by ID team --> monitor for resolution # Probable bronchitis --> f/u on recs prn with pulm and ID # Sickle cell disease, the patient currently has severe anemia. --> transfuse prn # History of seizure disorder, continue gabapentin as above. # Pulmonary hypertension. 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 The timing of this note does not necessarily reflect the time of the patient was seen. Greatly appreciate consultation! Subjective HEENT: Denies: no symptoms, eye pain, blurred vision, tearing, double vision, ear pain, ear discharge, nose pain, nose congestion, throat pain, throat swelling, mouth pain, mouth swelling, other Cardiovascular: Denies: no symptoms, chest pain, edema, irregular heart rate, lightheadedness, palpitations, syncope, other Respiratory: Denies: no symptoms, cough, orthopnea, shortness of breath, SOB with excertion, SOB at rest, sputum, stridor, wheezing, other Gastrointestinal/Abdominal: Denies: no symptoms, abdomen distended, abdominal pain, black stools, tarry stools, blood in stool, constipated, diarrhea, difficulty swallowing, nausea, poor appetite, poor fluid intake, rectal bleeding , vomiting, other Genitourinary: Denies: no symptoms, burning, discharge, frequency, flank pain, hematuria, incontinence, pain, urgency, other 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: Denies: no symptoms, anxiety, depressed, emotional problems, headache, numbness, paresthesia, pre-existing deficit, seizure, tingling, tremors, weakness, other Endocrine: Denies: no symptoms, excessive sweating, flushing, intolerance to cold, intolerance to heat, increased hunger, increased thirst, increased urine, unexplained weight gain, unexplained weight loss, other Hematologic/Lymphatic: Denies: no symptoms, anemia, easy bleeding, easy bruising, other Allergies: Coded Allergies: PENTAMIDINE ISETHIONATE (Verified Allergy, Severe, palpitations, 08/27/17) AMPICILLIN (Verified Allergy, Unknown, hives, 01/05/18) Tolerated CEftriaxone 01/02/18 KETOROLAC (Verified Allergy, Unknown, 08/03/16) MORPHINE (Verified Allergy, Unknown, 08/03/16) PHENYTOIN (Verified Allergy, Unknown, 08/03/16) Subjective 09/12: seen by bedside, awake, comfortable, wbc trending up, no events. 09/13: Pt is awake, comfortable, no acute distress. wbc trending down 09/14: Pt is alert, oriented, responsive,complained of shortness of breath and cough, wbc trending up at 16 09/16: on methadone and dilaudid on prn basis, no fevers or chills Objective Last 24 Hour Vital Signs Date Time Temp Pulse Resp B/P (MAP) Pulse Ox O2 Delivery O2 Flow Rate FiO2 09/16/18 08:26 97.6 09/16/18 07:46 75 19 Nasal Cannula 5.0 40 09/16/18 07:46 98 Nasal Cannula 5.0 40 09/16/18 07:46 Nasal Cannula 5.0 40 09/16/18 04:29 97.6 79 18 137/87 (104) 100 09/16/18 00:36 97.7 82 18 112/81 (91) 99 09/15/18 21:19 Nasal Cannula 5.0 09/15/18 21:18 98 Nasal Cannula 5.0 09/15/18 21:00 Nasal Cannula 5.0 09/15/18 20:22 97.6 83 18 129/73 (91) 99 09/15/18 16:00 98.9 78 18 120/85 (97) 94 09/15/18 14:30 73 16 Nasal Cannula 5.0 40 09/15/18 12:00 98.7 87 18 113/73 (86) 94 Intake and Output 09/15/18 09/16/18 18:59 06:59 Intake Total 500 ml 1110 ml Output Total 1000 ml 1000 ml Balance -500 ml 110 ml Intake Oral 500 ml 360 ml IV Total 750 ml Output Urine Total 1000 ml 1000 ml Laboratory Tests 09/16/18 05:40: White Blood Count 17.1H, Red Blood Count 2.76L, Hemoglobin 8.1L, Hematocrit 24.9L, Mean Corpuscular Volume 90, Mean Corpuscular Hemoglobin 29.3, Mean Corpuscular Hemoglobin Concent 32.5, Red Cell Distribution Width 17.2H, Platelet Count 338, Mean Platelet Volume 6.7, Neutrophils (%) (Auto) 32.8L, Lymphocytes (%) (Auto) 46.7H, Monocytes (%) (Auto) 5.5, Eosinophils (%) (Auto) 12.0H, Basophils (%) (Auto) 3.0H, Sodium Level 139, Potassium Level 5.1, Chloride Level 104, Carbon Dioxide Level 28, Anion Gap 7, Blood Urea Nitrogen 29H, Creatinine 0.9, Estimat Glomerular Filtration Rate > 60, Glucose Level 84, Calcium Level 10.1 Height (Feet): 5 Height (Inches): 11.00 Weight (Pounds): 151 Objective PHYSICAL EXAMINATION GENERAL: The patient is a well-developed and well nourished HEENT: Eyes, pupils are equal and responsive to light and accommodation. Eomi NECK: Supple without lymphadenopathy. CHEST: Decreased crackles in bilateral bases. CARDIOVASCULAR: Regular rhythm and rate. S1 and S2 are normal without murmurs , rubs, or gallops. ABDOMEN: Soft, nontender, and nondistended. Positive bowel sounds. No evidence of hepatosplenomegaly EXTREMITIES: Negative for clubbing, cyanosis, or edema. Marco Dutton MD Sep 16, 2018 10:51
[2018-09-16 12:00] VITALS: BP 120/83
--- NOTE | 2018-09-16 13:30 | NUR ---
NURSE NOTES: Assessed bowel sounds, patient reports last BM was yesterday 09/15/2018, normal, brown, formed, moderate amount.
--- NOTE | 2018-09-16 13:30 | NUR ---
NURSE NOTES: Report received from Roberto RN at 1330, rounds made. Patient sitting in high fowlers position, in bed on O2 5LNC, no SOB/respiratory distress noted. Patient medicated with scheduled Methadone at this time, pain 7/10, will reassess pain in 30 minutes. IVF infusing to Right Subclavian Portacath, site asymptomatic. Seizure precautions. Call light in reach, bed in lowest position, will continue to monitor.
--- NOTE | 2018-09-16 13:32 | NUR ---
HAND-OFF: Report given to GRISELDA Turner patient stable condition with out no distress endorsed for the nurse to renew the medication requires renewal.
--- NOTE | 2018-09-16 14:18 | NUR ---
NURSE NOTES: Spoke to Dr. Zarate on the phone regarding Methadone 3 tabs found on pt's bed this morning. Med identified by Pharmacy with Roberto VILLALOBOS.
--- NOTE | 2018-09-16 14:26 | NUR ---
CASE MANAGEMENT:REVIEW 09/16/2018 SI: PNEUMONIA. SICKLE CELL CRISIS T 98 HR 75 RR 20 B/P 120/83 SATS 96% ON 5L/NC WBC 17.1 BUN 29 IS: DUONEB HHN Q4HRS PRN IV LEVAQUIN Q24H NAVNEET-DUR PO Q12H METHADONE 60MG PO Q6HRS HYDREA PO BID VIMPAT PO Q12H HEPARIN SQ Q12H IV DILAUDID Q3HRS PRN PAIN IVF@75 mL/HR : MED/SURG STATUS 3 EAST DCP: PATIENT IS FROM HOME
--- NOTE | 2018-09-16 14:32 | NUR ---
CHARGE NURSE NOTE: Pt wants to be discharged, talk to . WBC 17.1. H@H .. notified. He said will come to see him soon. No new orders given.
[2018-09-16] MEDS ORDERED: Zolpidem 5mg tab ORAL PRN (15:15)
--- NOTE | 2018-09-16 15:29 | Pulmonology Progress Note ---
Assessment/Plan Problems: (1) Pneumonia (2) Interstitial lung disease (3) Pulmonary HTN (4) Sickle cell crisis (5) severe diastolic heart disease Assessment/Plan all reviewed wbc still high dc home, prescription for [place] given. respiratory treatment q4 check sputum analgesics titrate fio2 to sat increase benadryl to q4 Subjective ROS Limited/Unobtainable: No Constitutional: Reports: no symptoms HEENT: Repors: no symptoms Respiratory: Reports: no symptoms Allergies: Coded Allergies: PENTAMIDINE ISETHIONATE (Verified Allergy, Severe, palpitations, 08/27/17) AMPICILLIN (Verified Allergy, Unknown, hives, 01/05/18) Tolerated CEftriaxone 01/02/18 KETOROLAC (Verified Allergy, Unknown, 08/03/16) MORPHINE (Verified Allergy, Unknown, 08/03/16) PHENYTOIN (Verified Allergy, Unknown, 08/03/16) Objective Last 24 Hour Vital Signs Date Time Temp Pulse Resp B/P (MAP) Pulse Ox O2 Delivery O2 Flow Rate FiO2 09/16/18 12:24 97.6 09/16/18 12:00 98.0 75 20 120/83 (95) 96 09/16/18 09:00 Nasal Cannula 5.0 09/16/18 08:00 98.0 91 16 126/75 (92) 97 09/16/18 07:46 75 19 Nasal Cannula 5.0 40 09/16/18 07:46 98 Nasal Cannula 5.0 40 09/16/18 07:46 Nasal Cannula 5.0 40 09/16/18 04:29 97.6 79 18 137/87 (104) 100 09/16/18 00:36 97.7 82 18 112/81 (91) 99 09/15/18 21:19 Nasal Cannula 5.0 09/15/18 21:18 98 Nasal Cannula 5.0 09/15/18 21:00 Nasal Cannula 5.0 09/15/18 20:22 97.6 83 18 129/73 (91) 99 09/15/18 16:00 98.9 78 18 120/85 (97) 94 Intake and Output 09/15/18 09/16/18 19:00 07:00 Intake Total 575 ml 1035 ml Output Total 1000 ml 1000 ml Balance -425 ml 35 ml Intake Oral 500 ml 360 ml IV Total 75 ml 675 ml Output Urine Total 1000 ml 1000 ml Objective General Appearance: WD/WN HEENT: atraumatic Respiratory/Chest: chest wall non-tender, normal breath sounds Cardiovascular: normal peripheral pulses, no gallop/murmur Abdomen: soft, non tender Genitourinary: normal external genitalia Skin: no ulcers Laboratory Tests 09/16/18 05:40: White Blood Count 17.1H, Red Blood Count 2.76L, Hemoglobin 8.1L, Hematocrit 24.9L, Mean Corpuscular Volume 90, Mean Corpuscular Hemoglobin 29.3, Mean Corpuscular Hemoglobin Concent 32.5, Red Cell Distribution Width 17.2H, Platelet Count 338, Mean Platelet Volume 6.7, Neutrophils (%) (Auto) 32.8L, Lymphocytes (%) (Auto) 46.7H, Monocytes (%) (Auto) 5.5, Eosinophils (%) (Auto) 12.0H, Basophils (%) (Auto) 3.0H, Sodium Level 139, Potassium Level 5.1, Chloride Level 104, Carbon Dioxide Level 28, Anion Gap 7, Blood Urea Nitrogen 29H, Creatinine 0.9, Estimat Glomerular Filtration Rate > 60, Glucose Level 84, Calcium Level 10.1 Current Medications Medications (Trade) Dose Ordered Sig/Anthony Route PRN Reason Start Time Stop Time Status Last Admin Dose Admin Acetaminophen (Tylenol) 650 mg Q4H PRN ORAL fever 09/10/18 17:45 10/10/18 17:44 09/10/18 23:22 Al Hydroxide/Mg Hydroxide (Mylanta II) 30 ml Q6H PRN ORAL dyspepsia 09/10/18 17:45 10/10/18 17:44 Albuterol/ Ipratropium (Albuterol/ Ipratropium) 3 ml Q4H PRN HHN Shortness of Breath 09/16/18 15:30 09/21/18 15:29 Dextrose (Dextrose 50%) 25 ml Q30M PRN IV Hypoglycemia 09/10/18 18:15 10/10/18 18:05 Dextrose (Dextrose 50%) 50 ml Q30M PRN IV hypoglycemia 09/10/18 18:15 10/10/18 18:14 Diphenhydramine HCl (Benadryl) 25 mg Q4H PRN ORAL Itching 09/12/18 13:15 10/12/18 13:14 Diphenhydramine HCl (Benadryl) 50 mg Q4H PRN IVP Itching 09/12/18 15:00 10/12/18 14:59 09/16/18 11:38 Heparin Sodium (Porcine) (Heparin 5000 units/ml) 5,000 units EVERY 12 HOURS SUBQ 09/10/18 21:00 10/10/18 20:59 09/16/18 08:33 Hydralazine HCl (Apresoline) 25 mg Q6H PRN ORAL SBP>160 09/11/18 08:15 10/11/18 08:14 Hydromorphone HCl (Dilaudid) 2 mg Q3H PRN IV pain 4-6 09/16/18 15:30 09/23/18 15:29 Hydromorphone HCl (Dilaudid) 3 mg Q3H PRN IVP For Pain 7-10 09/16/18 15:30 09/23/18 15:29 Lacosamide (Vimpat) 100 mg Q12H ORAL 09/11/18 06:00 10/11/18 05:59 09/16/18 05:50 Lorazepam (Ativan 2mg/ml 1ml) 0.5 mg Q4H PRN IV For Anxiety 09/16/18 15:30 09/23/18 15:29 Methadone HCl (Methadone HCl) 60 mg Q6H ORAL 09/15/18 01:30 09/18/18 13:29 09/16/18 13:44 Naloxone HCl (Narcan) 0.2 mg Q30M PRN IVP respritory depression RR<8/min 09/11/18 20:45 10/11/18 20:44 Ondansetron HCl (Zofran) 4 mg Q6H PRN IVP Nausea & Vomiting 09/10/18 17:45 10/10/18 17:44 Polyethylene Glycol (Miralax) 17 gm HSPRN PRN ORAL Constipation 09/10/18 17:45 10/10/18 17:44 Promethazine HCl/ Codeine (Phenergan with Codeine) 5 ml Q4H PRN ORAL For Cough 09/11/18 12:15 10/11/18 12:14 Sodium Chloride 1,000 ml @ 75 mls/hr [id number] IV 09/10/18 17:33 10/10/18 17:32 09/16/18 05:54 Theophylline (Gee-Dur) 100 mg EVERY 12 HOURS ORAL 09/11/18 21:00 10/11/18 20:59 09/16/18 08:32 Zolpidem Tartrate (Ambien) 5 mg HSPRN PRN ORAL Insomnia 09/16/18 15:15 09/23/18 15:14 Hanna Mckenna MD Sep 16, 2018 15:29
--- NOTE | 2018-09-16 15:29 | Pulmonology Progress Note ---
Assessment/Plan Problems: (1) Pneumonia (2) Interstitial lung disease (3) Pulmonary HTN (4) Sickle cell crisis (5) severe diastolic heart disease Assessment/Plan all reviewed wbc still high feeling better, butn not quite yet respiratory treatment q4 check sputum analgesics ID evaluation IV abx f/u LDH titrate fio2 to sat increase benadryl to q4 Subjective ROS Limited/Unobtainable: No Interval Events: late note for 09/15 Constitutional: Reports: no symptoms HEENT: Repors: no symptoms Respiratory: Reports: no symptoms Allergies: Coded Allergies: PENTAMIDINE ISETHIONATE (Verified Allergy, Severe, palpitations, 08/27/17) AMPICILLIN (Verified Allergy, Unknown, hives, 01/05/18) Tolerated CEftriaxone 01/02/18 KETOROLAC (Verified Allergy, Unknown, 08/03/16) MORPHINE (Verified Allergy, Unknown, 08/03/16) PHENYTOIN (Verified Allergy, Unknown, 08/03/16) Objective Last 24 Hour Vital Signs Date Time Temp Pulse Resp B/P (MAP) Pulse Ox O2 Delivery O2 Flow Rate FiO2 09/16/18 12:24 97.6 09/16/18 12:00 98.0 75 20 120/83 (95) 96 09/16/18 09:00 Nasal Cannula 5.0 09/16/18 08:00 98.0 91 16 126/75 (92) 97 09/16/18 07:46 75 19 Nasal Cannula 5.0 40 09/16/18 07:46 98 Nasal Cannula 5.0 40 09/16/18 07:46 Nasal Cannula 5.0 40 09/16/18 04:29 97.6 79 18 137/87 (104) 100 09/16/18 00:36 97.7 82 18 112/81 (91) 99 09/15/18 21:19 Nasal Cannula 5.0 09/15/18 21:18 98 Nasal Cannula 5.0 09/15/18 21:00 Nasal Cannula 5.0 09/15/18 20:22 97.6 83 18 129/73 (91) 99 09/15/18 16:00 98.9 78 18 120/85 (97) 94 Intake and Output 09/15/18 09/16/18 19:00 07:00 Intake Total 575 ml 1035 ml Output Total 1000 ml 1000 ml Balance -425 ml 35 ml Intake Oral 500 ml 360 ml IV Total 75 ml 675 ml Output Urine Total 1000 ml 1000 ml General Appearance: WD/WN HEENT: atraumatic Respiratory/Chest: chest wall non-tender, normal breath sounds Cardiovascular: normal peripheral pulses, no gallop/murmur Abdomen: soft, non tender Genitourinary: normal external genitalia Skin: no ulcers Laboratory Tests 09/16/18 05:40: White Blood Count 17.1H, Red Blood Count 2.76L, Hemoglobin 8.1L, Hematocrit 24.9L, Mean Corpuscular Volume 90, Mean Corpuscular Hemoglobin 29.3, Mean Corpuscular Hemoglobin Concent 32.5, Red Cell Distribution Width 17.2H, Platelet Count 338, Mean Platelet Volume 6.7, Neutrophils (%) (Auto) 32.8L, Lymphocytes (%) (Auto) 46.7H, Monocytes (%) (Auto) 5.5, Eosinophils (%) (Auto) 12.0H, Basophils (%) (Auto) 3.0H, Sodium Level 139, Potassium Level 5.1, Chloride Level 104, Carbon Dioxide Level 28, Anion Gap 7, Blood Urea Nitrogen 29H, Creatinine 0.9, Estimat Glomerular Filtration Rate > 60, Glucose Level 84, Calcium Level 10.1 Current Medications Medications (Trade) Dose Ordered Sig/Anthony Route PRN Reason Start Time Stop Time Status Last Admin Dose Admin Acetaminophen (Tylenol) 650 mg Q4H PRN ORAL fever 09/10/18 17:45 10/10/18 17:44 09/10/18 23:22 Al Hydroxide/Mg Hydroxide (Mylanta II) 30 ml Q6H PRN ORAL dyspepsia 09/10/18 17:45 10/10/18 17:44 Albuterol/ Ipratropium (Albuterol/ Ipratropium) 3 ml Q4H PRN HHN Shortness of Breath 09/16/18 15:30 09/21/18 15:29 Dextrose (Dextrose 50%) 25 ml Q30M PRN IV Hypoglycemia 09/10/18 18:15 10/10/18 18:05 Dextrose (Dextrose 50%) 50 ml Q30M PRN IV hypoglycemia 09/10/18 18:15 10/10/18 18:14 Diphenhydramine HCl (Benadryl) 25 mg Q4H PRN ORAL Itching 09/12/18 13:15 10/12/18 13:14 Diphenhydramine HCl (Benadryl) 50 mg Q4H PRN IVP Itching 09/12/18 15:00 10/12/18 14:59 09/16/18 11:38 Heparin Sodium (Porcine) (Heparin 5000 units/ml) 5,000 units EVERY 12 HOURS SUBQ 09/10/18 21:00 10/10/18 20:59 09/16/18 08:33 Hydralazine HCl (Apresoline) 25 mg Q6H PRN ORAL SBP>160 09/11/18 08:15 10/11/18 08:14 Hydromorphone HCl (Dilaudid) 2 mg Q3H PRN IV pain 4-6 09/16/18 15:30 09/23/18 15:29 Hydromorphone HCl (Dilaudid) 3 mg Q3H PRN IVP For Pain 7-10 09/16/18 15:30 09/23/18 15:29 Lacosamide (Vimpat) 100 mg Q12H ORAL 09/11/18 06:00 10/11/18 05:59 09/16/18 05:50 Lorazepam (Ativan 2mg/ml 1ml) 0.5 mg Q4H PRN IV For Anxiety 09/16/18 15:30 09/23/18 15:29 Methadone HCl (Methadone HCl) 60 mg Q6H ORAL 09/15/18 01:30 09/18/18 13:29 09/16/18 13:44 Naloxone HCl (Narcan) 0.2 mg Q30M PRN IVP respritory depression RR<8/min 09/11/18 20:45 10/11/18 20:44 Ondansetron HCl (Zofran) 4 mg Q6H PRN IVP Nausea & Vomiting 09/10/18 17:45 10/10/18 17:44 Polyethylene Glycol (Miralax) 17 gm HSPRN PRN ORAL Constipation 09/10/18 17:45 10/10/18 17:44 Promethazine HCl/ Codeine (Phenergan with Codeine) 5 ml Q4H PRN ORAL For Cough 09/11/18 12:15 10/11/18 12:14 Sodium Chloride 1,000 ml @ 75 mls/hr [id number] IV 09/10/18 17:33 10/10/18 17:32 09/16/18 05:54 Theophylline (Gee-Dur) 100 mg EVERY 12 HOURS ORAL 09/11/18 21:00 10/11/18 20:59 09/16/18 08:32 Zolpidem Tartrate (Ambien) 5 mg HSPRN PRN ORAL Insomnia 09/16/18 15:15 09/23/18 15:14 Hanna Mckenna MD Sep 16, 2018 15:29
[2018-09-16] MEDS ORDERED: LORazepam Inj 2mg/ml 1ml IV PRN (15:30)
[2018-09-16] MEDS ORDERED: Albuterol/Ipratropium 3ml neb HHN PRN (15:30)
[2018-09-16 16:00] VITALS: BP 160/104
[2018-09-16] MEDS ORDERED: NORCO 10-325 T1 EACH ORAL (16:10)
--- NOTE | 2018-09-16 17:35 | Internal Med Progress Note ---
Subjective Date of Service: Sep 16, 2018 Physician Name Mehdi Rosales Attending Physician Wan Zarate MD Current Medications Medications (Trade) Dose Ordered Sig/Anthony Route PRN Reason Start Time Stop Time Status Last Admin Dose Admin Acetaminophen (Tylenol) 650 mg Q4H PRN ORAL fever 09/10/18 17:45 10/10/18 17:44 09/10/18 23:22 Al Hydroxide/Mg Hydroxide (Mylanta II) 30 ml Q6H PRN ORAL dyspepsia 09/10/18 17:45 10/10/18 17:44 Albuterol/ Ipratropium (Albuterol/ Ipratropium) 3 ml Q4H PRN HHN Shortness of Breath 09/16/18 15:30 09/21/18 15:29 Dextrose (Dextrose 50%) 25 ml Q30M PRN IV Hypoglycemia 09/10/18 18:15 10/10/18 18:05 Dextrose (Dextrose 50%) 50 ml Q30M PRN IV hypoglycemia 09/10/18 18:15 10/10/18 18:14 Diphenhydramine HCl (Benadryl) 25 mg Q4H PRN ORAL Itching 09/12/18 13:15 10/12/18 13:14 Diphenhydramine HCl (Benadryl) 50 mg Q4H PRN IVP Itching 09/12/18 15:00 10/12/18 14:59 09/16/18 15:44 Heparin Sodium (Porcine) (Heparin 5000 units/ml) 5,000 units EVERY 12 HOURS SUBQ 09/10/18 21:00 10/10/18 20:59 09/16/18 08:33 Hydralazine HCl (Apresoline) 25 mg Q6H PRN ORAL SBP>160 09/11/18 08:15 10/11/18 08:14 Hydromorphone HCl (Dilaudid) 2 mg Q3H PRN IV pain 4-6 09/16/18 15:30 09/23/18 15:29 Hydromorphone HCl (Dilaudid) 3 mg Q3H PRN IVP For Pain 7-10 09/16/18 15:30 09/23/18 15:29 09/16/18 15:44 Lacosamide (Vimpat) 100 mg Q12H ORAL 09/11/18 06:00 10/11/18 05:59 09/16/18 05:50 Lorazepam (Ativan 2mg/ml 1ml) 0.5 mg Q4H PRN IV For Anxiety 09/16/18 15:30 09/23/18 15:29 Methadone HCl (Methadone HCl) 60 mg Q6H ORAL 09/15/18 01:30 09/18/18 13:29 09/16/18 13:44 Naloxone HCl (Narcan) 0.2 mg Q30M PRN IVP respritory depression RR<8/min 09/11/18 20:45 10/11/18 20:44 Ondansetron HCl (Zofran) 4 mg Q6H PRN IVP Nausea & Vomiting 09/10/18 17:45 10/10/18 17:44 Polyethylene Glycol (Miralax) 17 gm HSPRN PRN ORAL Constipation 09/10/18 17:45 10/10/18 17:44 Promethazine HCl/ Codeine (Phenergan with Codeine) 5 ml Q4H PRN ORAL For Cough 09/11/18 12:15 10/11/18 12:14 Sodium Chloride 1,000 ml @ 75 mls/hr [id number] IV 09/10/18 17:33 10/10/18 17:32 09/16/18 05:54 Theophylline (Gee-Dur) 100 mg EVERY 12 HOURS ORAL 09/11/18 21:00 10/11/18 20:59 09/16/18 08:32 Zolpidem Tartrate (Ambien) 5 mg HSPRN PRN ORAL Insomnia 09/16/18 15:15 09/23/18 15:14 Allergies: Coded Allergies: PENTAMIDINE ISETHIONATE (Verified Allergy, Severe, palpitations, 08/27/17) AMPICILLIN (Verified Allergy, Unknown, hives, 01/05/18) Tolerated CEftriaxone 01/02/18 KETOROLAC (Verified Allergy, Unknown, 08/03/16) MORPHINE (Verified Allergy, Unknown, 08/03/16) PHENYTOIN (Verified Allergy, Unknown, 08/03/16) ROS Limited/Unobtainable: No Constitutional: Reports: no symptoms HEENT: Reports: no symptoms Cardiovascular: Reports: no symptoms Respiratory: Reports: no symptoms Gastrointestinal/Abdominal: Reports: no symptoms Genitourinary: Reports: no symptoms 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: Reports: no symptoms Subjective 42 YO M with sickle cell dis admitted with cough. Now bronchitis and CHF. Cover for Int Med-DR Zarate. Objective Last Vital Signs Date Time Temp Pulse Resp B/P (MAP) Pulse Ox O2 Delivery O2 Flow Rate FiO2 09/16/18 16:00 98.1 94 20 160/104 (122) 96 09/16/18 09:00 Nasal Cannula 5.0 09/16/18 07:46 40 Laboratory Tests Test 09/16/18 05:40 White Blood Count 17.1 K/UL (4.8-10.8) H Red Blood Count 2.76 M/UL (4.70-6.10) L Hemoglobin 8.1 G/DL (14.2-18.0) L Hematocrit 24.9 % (42.0-52.0) L Mean Corpuscular Volume 90 FL (80-99) Mean Corpuscular Hemoglobin 29.3 PG (27.0-31.0) Mean Corpuscular Hemoglobin Concent 32.5 G/DL (32.0-36.0) Red Cell Distribution Width 17.2 % (11.6-14.8) H Platelet Count 338 K/UL (150-450) Mean Platelet Volume 6.7 FL (6.5-10.1) Neutrophils (%) (Auto) 32.8 % (45.0-75.0) L Lymphocytes (%) (Auto) 46.7 % (20.0-45.0) H Monocytes (%) (Auto) 5.5 % (1.0-10.0) Eosinophils (%) (Auto) 12.0 % (0.0-3.0) H Basophils (%) (Auto) 3.0 % (0.0-2.0) H Sodium Level 139 MMOL/L (136-145) Potassium Level 5.1 MMOL/L (3.5-5.1) Chloride Level 104 MMOL/L (98-107) Carbon Dioxide Level 28 MMOL/L (21-32) Anion Gap 7 mmol/L (5-15) Blood Urea Nitrogen 29 mg/dL (7-18) H Creatinine 0.9 MG/DL (0.55-1.30) Estimat Glomerular Filtration Rate > 60 mL/min (>60) Glucose Level 84 MG/DL (74-106) Calcium Level 10.1 MG/DL (8.5-10.1) Intake and Output 09/15/18 09/16/18 19:00 07:00 Intake Total 575 ml 1035 ml Output Total 1000 ml 1000 ml Balance -425 ml 35 ml Intake Oral 500 ml 360 ml IV Total 75 ml 675 ml Output Urine Total 1000 ml 1000 ml Objective General Appearance: WD/WN, no apparent distress, alert EENT: PERRL/EOMI, normal ENT inspection Neck: non-tender, normal alignment, supple, normal inspection Cardiovascular: normal peripheral pulses, normal rate, regular rhythm, no gallop/murmur, no JVD Respiratory/Chest: chest wall non-tender, crackles/rales, rhonchi - bilaterally , expiratory wheezing Abdomen: normal bowel sounds, non tender, soft, no organomegaly, no mass Extremities: normal range of motion, non-tender 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
--- NOTE | 2018-09-16 17:40 | NUR ---
NURSE NOTES: Discharge instructions and prescription x1 reviewed with patient, verbalized understanding. Right subclavian Portacath flushed, clamped then removed, no redness/swelling noted to site, no active bleeding, sterile 4x4 gauze with tegederm dressing cover applied. All belongings, prescription x1 and discharge instructions given to patient. Patient transported down to [facility] via wheelchair with portable O2 tank at 5L per NC and respiratory therapist stand by assist, patient remains stable. Patient discharged home at 1740.
--- NOTE | 2018-09-17 11:20 | NUR ---
*-* INSURANCE *-* updated CLINICALS HAVE BEEN FAXED TO: CARLO MONTES P:[phone] F:[phone]
--- NOTE | 2018-09-18 09:02 | Discharge Summary ---
Discharge Summary Discharge Summary _ DATE OF ADMISSION: 09/10/2018 DATE OF DISCHARGE: 09/16/2018 DISCHARGED BY: Dr. Zarate REASON FOR ADMISSION: 42 years old male with past medical history of sickle cell disease, DVT bilateral lower extremity, COPD/asthma, hypertension, diastolic CHF, severe pulmonary hypertension, seizure disorder, anemia, presented to emergency department with generalized body pain, cough and dyspnea Patient is chronically oxygen dependent at home. Chest x-ray revealed right chest Port-A-Cath. Chronic interstitial disease. Persistent left mid lung opacity. Laboratory workup revealed WBC 15.3. Hemoglobin 6.8, hematocrit 20.6. Pro BNP 312. Stable chemistry and renal parameters. Patient was admitted for further management with diagnosis of sickle cell crisis and bronchitis. CONSULTANTS: pulmonary Dr. Mckenna ID specialist Dr. Duran overhauler/oncologist Dr. Dutton plastic surgeon Dr. Resendez pain specialist Dr. Perera HOSPITAL COURSE: Patient admitted and started on IV hydration, supplemental oxygen and respiratory treatment with handheld nebulizing treatment with bronchodilator. Patient was started on empiric antibiotic. Patient started on Theodur. DVT prophylaxis provided. Pain management was addressed as per pain specialist recommendation Patient demonstrated fever on few occasions. Patient remained with leukocytosis. Patient was followed -up with chest x-ray. which shows not no major changes. Blood cultures were negative. Influenza rapid influenza screen test was negative. Infectious disease specialist closely followed. Antibiotics provided as per infectious disease specialist recommendation. Per ID specialist, leukocytosis was possibly reactive in setting of acute sickle cell crisis. Patient undergone course of antibiotics. Antibiotics were discontinued. Infectious disease specialist recommended to monitor patient off antibiotic. Fevers resolved. Juice Tester followed. Patient had anemia of sickle cell disease as well as the anemia of chronic disease. Hemoglobin and hematocrit were closely monitored with goal to keep hemoglobin above 7 Patient undergone transfusion of 1 unit of packed red blood cells. Prior to discharge hemoglobin 8.1 hematocrit 24.9. Hydroxyurea was continued. Seizure precaution maintained. Vimpat was continued. No evidence of seizure activity while in the hospital. Plastic surgeon seen the patient regarding recommendation for wound care prevention and Port-A-Cath site check. Measures to prevent pressure sores were discussed with patient, and recommendations were provided by plastic surgeon. Patient clinically stabilized and was ready for discharge home FINAL DIAGNOSES: Acute bronchitis Probably pneumonia Diastolic congestive heart failure COPD/asthma Severe pulmonary hypertension Sickle cell disease and crisis Sickle cell anemia Seizure disorder Avascular necrosis of femur head left and right History of bilateral DVT DISCHARGE MEDICATIONS: See Medication Reconciliation list. DISCHARGE INSTRUCTIONS: Patient was discharged home. Follow up with primary care provider in one week. I have been assigned to dictate discharge summary for this account. I was not involved in the patient's management. Mikayla Camara NP Sep 18, 2018 09:02
== END 2018-09-16 17:40 | disposition home or self-care (01) | DRG 193 ==
LOC: EMR 14:56 → 3E 16:34 → EDBEDREQ 17:54
PROC: 30233N1 Transfusion of Nonautologous Red Blood Cells into Peripheral Vein, Percutaneous Approach (ICD-10-PCS; principal; 2018-09-10)
DX: J18.9 Pneumonia, unspecified organism (principal); D57.00 Hb-SS disease with crisis, unspecified; I50.32 Chronic diastolic (congestive) heart failure; M87.852 Other osteonecrosis, left femur; M87.851 Other osteonecrosis, right femur; J84.9 Interstitial pulmonary disease, unspecified; J20.9 Acute bronchitis, unspecified; D63.8 Anemia in other chronic diseases classified elsewhere; I27.20 Pulmonary hypertension, unspecified; G40.909 Epilepsy, unspecified, not intractable, without status epilepticus; I11.0 Hypertensive heart disease with heart failure; Z86.718 Personal history of other venous thrombosis and embolism; Z88.6 Allergy status to analgesic agent; Z88.8 Allergy status to other drugs, medicaments and biological substances; Z99.81 Dependence on supplemental oxygen
CPT/HCPCS: 36415; 71045; 80048; 80053; 83605; 83615; 83735; 83880; 84100; 85007; 85025; 85044; 85651; 86140; 86710; 86850; 86900; 86901; 86920; 87040; 93005; 94640; 94664; 94760; 96361; 96365; 96375; 96376; 99285; J2405; J7620

== ENCOUNTER 2018-10-31 16:06 | Inpatient (IN) | payer MEDICARE, OTHER ==
[~2018-10-31] VITALS: Ht 180.3 cm; Wt 61.2 kg
[~2018-10-31 16:06] MED LIST changes: +NORCO 10-325 T1 EACH ORAL; +UNOBMED; +VIMPAT100 MG PO
[2018-10-31 16:44] VITALS: BP 104/66
[2018-10-31] MEDS ORDERED: HYDROmorphone 1mg/ml Carpuject IVP ONE (16:45)
[2018-10-31] MEDS ORDERED: DiphenhydrAMINE 50mg/ml Inj IVP ONE (16:45)
[2018-10-31] MEDS ORDERED: Metoclopramide 10mg/2ml Inj IVP ONE (16:45)
--- NOTE | 2018-10-31 16:52 | Emergency Room Report ---
History of Present Illness General Chief Complaint: Pain Source: Patient Present Illness HPI Patient presents with complaints of sickle cell crisis reports that He has pain diffusely in the back legs and upper arms Patient reports that 2 weeks ago he was at [facility] was found to have cholecystitis and had surgery for that He is now having continued discomfort in the mid lower abdominal area Denies any vomiting he does feel somewhat nauseous He is passing stool Denies any focal weakness patient is on oxygen at home Allergies: Coded Allergies: PENTAMIDINE ISETHIONATE (Verified Allergy, Severe, palpitations, 08/27/17) AMPICILLIN (Verified Allergy, Unknown, hives, 01/05/18) Tolerated CEftriaxone 01/02/18 KETOROLAC (Verified Allergy, Unknown, 08/03/16) MORPHINE (Verified Allergy, Unknown, 08/03/16) PHENYTOIN (Verified Allergy, Unknown, 08/03/16) Patient History Past Medical History: see triage record Pertinent Family History: none Reviewed Nursing Documentation: PMH: Agreed; PSxH: Agreed Nursing Documentation-PMH Past Medical History: No History, Except For Hx Cardiac Problems: Yes - sickle cell Hx Hypertension: Yes Hx Asthma: Yes Hx COPD: Yes Hx Cancer: No Hx Gastrointestinal Problems: No Hx Neurological Problems: Yes Hx Seizures: Yes Review of Systems All Other Systems: negative except mentioned in HPI Physical Exam Vital Signs Date Time Temp Pulse Resp B/P (MAP) Pulse Ox O2 Delivery O2 Flow Rate FiO2 10/31/18 16:24 99.3 143 14 113/66 77 Room Air Sp02 EP Interpretation: reviewed, normal General Appearance: mild distress Head: normocephalic, atraumatic Eyes: bilateral eye EOMI ENT: dry mucus membranes Neck: supple, thyroid normal Respiratory: no retraction, no accessory muscle use, crackles - Bilaterally Cardiovascular #1: no edema, no gallop, tachycardia Gastrointestinal: no guarding, no hernia, other - Evidence of recent laparoscopic surgery, mild dehiscence in the lower site, mildly decreased bowel sounds Genitourinary: no CVA tenderness Musculoskeletal: normal inspection Neurologic: alert, oriented x3, responsive Skin: no rash, warm/dry Lymphatic: no adenopathy Medical Decision Making Diagnostic Impression: Primary Impression: Sickle cell crisis ER Course Patient is a fairly complex patient with multiple differential to consideration including but not limited to cardiac cardiopulmonary and vascular emergencies Patient required acute intervention with pain medication and IV hydration low work also shows significant abnormalities And patient requires further inpatient care Labs Test 10/31/18 17:45 10/31/18 18:14 11/01/18 17:52 White Blood Count 21.0 K/UL (4.8-10.8) 20.1 K/UL (4.8-10.8) Red Blood Count 2.38 M/UL (4.70-6.10) 2.16 M/UL (4.70-6.10) Hemoglobin 7.3 G/DL (14.2-18.0) 6.7 G/DL (14.2-18.0) Hematocrit 21.4 % (42.0-52.0) 20.2 % (42.0-52.0) Mean Corpuscular Volume 90 FL (80-99) 93 FL (80-99) Mean Corpuscular Hemoglobin 30.8 PG (27.0-31.0) 31.2 PG (27.0-31.0) Mean Corpuscular Hemoglobin Concent 34.3 G/DL (32.0-36.0) 33.4 G/DL (32.0-36.0) Red Cell Distribution Width 18.4 % (11.6-14.8) 19.6 % (11.6-14.8) Platelet Count 350 K/UL (150-450) 377 K/UL (150-450) Mean Platelet Volume 7.4 FL (6.5-10.1) 7.2 FL (6.5-10.1) Neutrophils (%) (Auto) % (45.0-75.0) % (45.0-75.0) Lymphocytes (%) (Auto) % (20.0-45.0) % (20.0-45.0) Monocytes (%) (Auto) % (1.0-10.0) % (1.0-10.0) Eosinophils (%) (Auto) % (0.0-3.0) % (0.0-3.0) Basophils (%) (Auto) % (0.0-2.0) % (0.0-2.0) Differential Total Cells Counted 100 100 Neutrophils % (Manual) 74 % (45-75) 63 % (45-75) Lymphocytes % (Manual) 21 % (20-45) 14 % (20-45) Monocytes % (Manual) 3 % (1-10) 5 % (1-10) Eosinophils % (Manual) 2 % (0-3) 17 % (0-3) Basophils % (Manual) 0 % (0-2) 1 % (0-2) Band Neutrophils 0 % (0-8) 0 % (0-8) Platelet Estimate Adequate Adequate Platelet Morphology Normal Normal Hypochromasia 2+ 2+ Anisocytosis 1+ 2+ Target Cells 1+ 1+ Reticulocyte Count 2.4 % (0.0-2.0) 2.8 % (0.0-2.0) Sodium Level 142 MMOL/L (136-145) 141 MMOL/L (136-145) Potassium Level 5.1 MMOL/L (3.5-5.1) 5.2 MMOL/L (3.5-5.1) Chloride Level 106 MMOL/L (98-107) 106 MMOL/L (98-107) Carbon Dioxide Level 29 MMOL/L (21-32) 29 MMOL/L (21-32) Anion Gap 7 mmol/L (5-15) 6 mmol/L (5-15) Blood Urea Nitrogen 32 mg/dL (7-18) 25 mg/dL (7-18) Creatinine 1.2 MG/DL (0.55-1.30) 1.1 MG/DL (0.55-1.30) Estimat Glomerular Filtration Rate > 60 mL/min (>60) > 60 mL/min (>60) Glucose Level 93 MG/DL (74-106) 121 MG/DL (74-106) Calcium Level 9.4 MG/DL (8.5-10.1) 9.2 MG/DL (8.5-10.1) Total Bilirubin 1.0 MG/DL (0.2-1.0) 0.7 MG/DL (0.2-1.0) Aspartate Amino Transf (AST/SGOT) 64 U/L (15-37) 74 U/L (15-37) Alanine Aminotransferase (ALT/SGPT) 86 U/L (12-78) 91 U/L (12-78) Alkaline Phosphatase 212 U/L (46-116) 248 U/L (46-116) Total Protein 7.2 G/DL (6.4-8.2) 6.9 G/DL (6.4-8.2) Albumin 3.7 G/DL (3.4-5.0) 3.3 G/DL (3.4-5.0) Globulin 3.5 g/dL 3.6 g/dL Albumin/Globulin Ratio 1.1 (1.0-2.7) 0.9 (1.0-2.7) Lipase 78 U/L (73-393) Urine Color Yellow Urine Appearance Clear Urine pH 6 (4.5-8.0) Urine Specific [place] 1.015 (1.005-1.035) Urine Protein 3+ (NEGATIVE) Urine Glucose (UA) Negative (NEGATIVE) Urine Ketones Negative (NEGATIVE) Urine Blood 1+ (NEGATIVE) Urine Nitrite Negative (NEGATIVE) Urine Bilirubin 1+ (NEGATIVE) Urine Ictotest Negative (NEGATIVE) Urine Urobilinogen Normal MG/DL (0.0-1.0) Urine Leukocyte Esterase 1+ (NEGATIVE) Urine RBC 2-4 /HPF (0 - 0) Urine WBC 0-2 /HPF (0 - 0) Urine Squamous Epithelial Cells None /LPF (NONE/OCC) Urine Bacteria Few /HPF (NONE) Ferritin 1664 NG/ML (8-388) Lactate Dehydrogenase 355 U/L (81-234) EKG Diagnostic Results Rate: normal Rhythm: NSR ST Segments: no acute changes Rhythm Strip Diag. Results EP Interpretation: yes Rate: 87 Rhythm: NSR, no PVC's, no ectopy CT/MRI/US Diagnostic Results CT/MRI/US Diagnostic Results : Impression CT abdomen pelvisIMPRESSION: Limited exam without intravenous and oral contrast. Within these limitations: * Surgical clips in the gallbladder fossa. Fluid is also noted in the gallbladder fossa which may related to postoperative change versus seroma. The possibility of bile leak or infected fluid is not excluded. Correlation with timing of surgery and clinical findings is recommended. * Findings suggestive of chronic interstitial lung disease. Component of acute infectious/inflammatory process however cannot be excluded. * Cardiomegaly and mild pericardial effusion. * Autoinfarction of the spleen and bony changes consistent with given history of sickle cell disease. Severe degenerative changes of left hip with flattening and a sclerosis of the left femoral head which may represent sequela of avascular necrosis. * Nonspecific hyperattenuation of the liver, may be sequela of prior deposition or medications. * Mild prominence of the bladder wall, nonspecific. Correlation with urinalysis recommended. Additional findings as above. This corresponds with the [facility] preliminary report. Last Vital Signs Date Time Temp Pulse Resp B/P (MAP) Pulse Ox O2 Delivery O2 Flow Rate FiO2 10/31/18 16:44 98.9 124 24 104/66 98 Room Air Status: improved Disposition: ADMITTED INPATIENT Condition: Serious Griffin Banda DO Oct 31, 2018 16:52
[2018-10-31 18:05] VITALS: BP 103/55
[2018-10-31 18:15] LABS: HEMATOCRIT 21.4 % (42.0-52.0); HEMOGLOBIN 7.3 G/DL (14.2-18.0); MEAN CORPUSCULAR VOLUME 90 FL (80-99); PLATELET COUNT 350 K/UL (150-450); RED BLOOD COUNT 2.38 M/UL (4.70-6.10); RED CELL DISTRIBUTION WIDTH 18.4 % (11.6-14.8)
[2018-10-31 18:18] LABS: ANION GAP 7 mmol/L (5-15); BLOOD UREA NITROGEN 32 mg/dL (7-18); CALCIUM 9.4 MG/DL (8.5-10.1); CARBON DIOXIDE 29 MMOL/L (21-32); CHLORIDE 106 MMOL/L (98-107); CREATININE 1.2 MG/DL (0.55-1.30); POTASSIUM 5.1 MMOL/L (3.5-5.1); SODIUM 142 MMOL/L (136-145)
[2018-10-31 18:23] LABS: ALANINE AMINOTRANSFERASE 86 U/L (12-78); ALBUMIN 3.7 G/DL (3.4-5.0); ALBUMIN/GLOBULIN RATIO 1.1 (1.0-2.7); ALKALINE PHOSPHATASE 212 U/L (46-116); ASPARTATE AMINO TRANSFERASE 64 U/L (15-37)
[2018-10-31 18:40] LABS: APPEARANCE,URINE CLEAR; BILIRUBIN, URINE 1+ (NEGATIVE); GLUCOSE, URINE (UA) NEGATIVE (NEGATIVE); KETONES,URINE NEGATIVE (NEGATIVE); LEUKOCYTE ESTERASE ,URINE 1+ (NEGATIVE); NITRITE,URINE NEGATIVE (NEGATIVE); PH,URINE 6 (4.5-8.0); PROTEIN,URINE 3+ (NEGATIVE); UROBILINOGEN,URINE NORMAL MG/DL (0.0-1.0)
[2018-10-31 18:41] LABS: COLOR,URINE YELLOW
[2018-10-31 19:23] VITALS: BP 103/64
[2018-10-31] MEDS ORDERED: Zolpidem 5mg tab ORAL PRN (19:45)
[2018-10-31] MEDS ORDERED: Mylanta II UD 30ml ORAL PRN (19:45)
[2018-10-31] MEDS ORDERED: Miralax 17gm pkt ORAL PRN (19:45)
[2018-10-31] MEDS ORDERED: LORazepam Inj 2mg/ml 1ml IV PRN (19:45)
[2018-10-31 20:00] VITALS: BP 127/90
[2018-10-31] MEDS: Heparin 5000 units/ml inj SUBQ SCH (22:02)
[2018-11-01] VITALS: BP 111/82
[2018-11-01 04:00] VITALS: BP 106/65
[2018-11-01 08:00] VITALS: BP 108/72
[2018-11-01] MEDS: Heparin 5000 units/ml inj SUBQ SCH ×2 (08:50→21:20)
[2018-11-01] MEDS ORDERED: Hydroxyurea 500mg cap ORAL SCH (09:00)
[2018-11-01] MEDS ORDERED: Lacosamide 50mg tablet ORAL SCH (09:00)
--- NOTE | 2018-11-01 11:17 | Diagnostic Imaging Report ---
Indication: Abdominal pain. History of recent cholecystectomy Technique: Noncontrast CT of the abdomen and pelvis utilizing automated exposure control. Axial, sagittal and coronal reformats presented. CT dose: Total DLP 571.64 mGycm; CTDI vol 11.53 mGy Comparison: Prior CT of the abdomen available for comparison Findings: Please note that evaluation of the abdominal and pelvic viscera and vascular structures is limited without the use of intravenous and oral contrast. Within these limitations the following observations are made: Reticular densities with some small calcifications in the lung bases suggests possible chronic interstitial lung disease. Component infectious/inflammatory process is not excluded. Heart is enlarged. There is hypoattenuation of the blood pool relative to the septum just of anemia. There is a mild pericardial effusion. There is nonspecific hyperattenuation of the liver. There is hepatomegaly versus Luis's lobe configuration with the right hepatic lobe measuring 19 cm in craniocaudal length. Surgical clips are noted in the gallbladder fossa. There does however appear to the fluid within the gallbladder fossa which may be related to postoperative change. Bile leak is not excluded. The spleen is not visualized. Instead there is some faint linear attenuation in the region of the spleen which is mildly calcified suggesting autoinfarction, consistent with known history of sickle cell disease. Adrenal glands unremarkable. Pancreas is mildly atrophic. No definite peripancreatic inflammatory change. Multiple low-attenuation lesions are noted in the bilateral kidneys consistent with simple cysts. There are some subcentimeter high attenuation foci in the bilateral kidneys which may represent small parenchymal calcifications or hyperdense cysts. No evidence of hydronephrosis or obstructing renal stone bilaterally. The bladder is mildly distended. Questionable wall thickening is noted. Prostate does not appear enlarged. Imaged portions of the penis unremarkable. There is no free intraperitoneal air. There is no evidence of bowel obstruction. There is mild distention of the stomach with ingested contents. Moderate stool is noted within the transverse and right colon. There is no free intraperitoneal air. The abdominal aorta is normal in caliber with a few scattered atherosclerotic calcifications. A infrarenal inferior vena cava no filter is noted in place. Migration of some of the legs outside of the wall of the cava outside the ayala of the cava is noted, a common finding in chronic indwelling filters. There is a periumbilical soft tissue stranding with some intermediate attenuation. This may be related to possible dehiscence of the surgical scar. There is a small fat-containing umbilical hernia. Some small mesenteric, inguinal lymph nodes are noted which may be reactive in etiology. Heterogeneity of the osseous structures is noted in shape vertebral bodies. Findings are consistent with sickle cell osseous changes. There is abnormal sclerosis and flattening of the head of the left femur which may be related to degenerative changes or sequela of avascular necrosis. IMPRESSION: Limited exam without intravenous and oral contrast. Within these limitations: * Surgical clips in the gallbladder fossa. Fluid is also noted in the gallbladder fossa which may related to postoperative change versus seroma. The possibility of bile leak or infected fluid is not excluded. Correlation with timing of surgery and clinical findings is recommended. * Findings suggestive of chronic interstitial lung disease. Component of acute infectious/inflammatory process however cannot be excluded. * Cardiomegaly and mild pericardial effusion. * Autoinfarction of the spleen and bony changes consistent with given history of sickle cell disease. Severe degenerative changes of left hip with flattening and a sclerosis of the left femoral head which may represent sequela of avascular necrosis. * Nonspecific hyperattenuation of the liver, may be sequela of prior deposition or medications. * Mild prominence of the bladder wall, nonspecific. Correlation with urinalysis recommended. Additional findings as above. This corresponds with the [facility] preliminary report. The CT scanner at [facility] is accredited by the [employer] and the scans are performed using protocols designed to limit radiation exposure to as low as reasonably achievable to attain images of sufficient resolution adequate for diagnostic evaluation.
--- NOTE | 2018-11-01 11:41 | Consultation ---
History of Present Illness General Date patient seen: Nov 01, 2018 Chief Complaint: Pain Present Illness HPI 42 year old male with history of sickle cell disease, DVT bilateral lower extremity ,COPD/asthma, recent cholecystectomy, hypertension, diastolic CHF, severe pulmonary HTN, seizure disorder, anemia, presented to Er with generalized body pain and dyspnea. Patient is chronically oxygen dependent at home. Patient was admitted for further management with diagnosis of sickle cell crisis Allergies: Coded Allergies: PENTAMIDINE ISETHIONATE (Verified Allergy, Severe, palpitations, 08/27/17) AMPICILLIN (Verified Allergy, Unknown, hives, 01/05/18) Tolerated CEftriaxone 01/02/18 KETOROLAC (Verified Allergy, Unknown, 08/03/16) MORPHINE (Verified Allergy, Unknown, 08/03/16) PHENYTOIN (Verified Allergy, Unknown, 08/03/16) Medication History Scheduled Folic Acid* (Folic Acid*), 1 MG ORAL DAILY Hydromorphone HCl (Dilaudid), 14 MG ORAL EVERY 4 HOURS, (Reported) Hydroxyurea* (Hydrea*), 500 MG PO BID Lacosamide (Vimpat), 100 MG PO BID, (Reported) Methadone Hcl* (Methadone*), 60 MG PO Q6HR, (Reported) Scheduled PRN Diphenhydramine HCl (Benadryl), 50 MG PO Q4HR PRN for Itching, (Reported) Discontinued Medications Gabapentin* (Gabapentin*), 350 MG ORAL THREE TIMES A DAY, (Reported) Discontinued Reason: Pt stopped taking med Hydrocodone Bit/Acetaminophen 10-325* ([place] 10-325*), 1 TAB ORAL Q8HR PRN for For Pain, (Reported) Discontinued Reason: Pt stopped taking med Patient History Healthcare decision maker SELF Resuscitation status Full Code Advanced Directive on File No Past Medical/Surgical History Past Medical/Surgical History: (1) Intractable pain (2) severe diastolic heart disease (3) Pulmonary HTN (4) Interstitial lung disease (5) Seizure disorder (6) Sickle cell disease (7) Avascular necrosis of femur head, left (8) Avascular necrosis of femur head, right Review of Systems All Other Systems: negative except mentioned in HPI Physical Exam General Appearance: cachetic Lines, tubes and drains: peripheral HEENT: normocephalic, atraumatic Neck: non-tender, supple Respiratory/Chest: chest wall non-tender, lungs clear Cardiovascular/Chest: normal peripheral pulses, normal rate Abdomen: normal bowel sounds, non tender Genitourinary/Rectal: normal genital exam Skin Exam: normal pigmentation 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 Last 24 Hour Vital Signs Date Time Temp Pulse Resp B/P (MAP) Pulse Ox O2 Delivery O2 Flow Rate FiO2 11/01/18 09:00 Nasal Cannula 6.0 11/01/18 08:21 6.0 11/01/18 08:00 89 11/01/18 08:00 98.2 80 20 108/72 (84) 99 11/01/18 05:11 98.6 11/01/18 04:00 6.0 11/01/18 04:00 97.7 80 16 106/65 (79) 99 11/01/18 04:00 83 11/01/18 00:00 98.3 90 20 111/82 (92) 99 11/01/18 00:00 88 11/01/18 00:00 6.0 10/31/18 21:00 Nasal Cannula 6.0 10/31/18 20:28 Nasal Cannula 6.0 10/31/18 20:15 98.6 90 13 103/64 100 Nasal Cannula 6.0 90 10/31/18 20:00 88 10/31/18 20:00 98.1 94 16 127/90 (102) 100 10/31/18 19:23 98.9 90 13 103/64 100 Nasal Cannula 6.0 10/31/18 18:05 98.9 91 14 103/55 100 Nasal Cannula 6.0 10/31/18 17:57 98.9 10/31/18 16:44 98.9 124 24 104/66 98 Room Air 10/31/18 16:24 99.3 143 14 113/66 77 Room Air Intake and Output 10/31/18 11/01/18 19:00 07:00 Intake Total 2005 ml Output Total 700 ml Balance 1305 ml Intake Oral 480 ml IV Total 1525 ml Output Urine Total 700 ml Laboratory Tests Test 10/31/18 17:45 10/31/18 18:14 White Blood Count 21.0 K/UL (4.8-10.8) H Red Blood Count 2.38 M/UL (4.70-6.10) L Hemoglobin 7.3 G/DL (14.2-18.0) L Hematocrit 21.4 % (42.0-52.0) L Mean Corpuscular Volume 90 FL (80-99) Mean Corpuscular Hemoglobin 30.8 PG (27.0-31.0) Mean Corpuscular Hemoglobin Concent 34.3 G/DL (32.0-36.0) Red Cell Distribution Width 18.4 % (11.6-14.8) H Platelet Count 350 K/UL (150-450) Mean Platelet Volume 7.4 FL (6.5-10.1) Neutrophils (%) (Auto) % (45.0-75.0) Lymphocytes (%) (Auto) % (20.0-45.0) Monocytes (%) (Auto) % (1.0-10.0) Eosinophils (%) (Auto) % (0.0-3.0) Basophils (%) (Auto) % (0.0-2.0) Differential Total Cells Counted 100 Neutrophils % (Manual) 74 % (45-75) Lymphocytes % (Manual) 21 % (20-45) Monocytes % (Manual) 3 % (1-10) Eosinophils % (Manual) 2 % (0-3) Basophils % (Manual) 0 % (0-2) Band Neutrophils 0 % (0-8) Platelet Estimate Adequate Platelet Morphology Normal Hypochromasia 2+ Anisocytosis 1+ Target Cells 1+ Reticulocyte Count 2.4 % (0.0-2.0) H Sodium Level 142 MMOL/L (136-145) Potassium Level 5.1 MMOL/L (3.5-5.1) Chloride Level 106 MMOL/L (98-107) Carbon Dioxide Level 29 MMOL/L (21-32) Anion Gap 7 mmol/L (5-15) Blood Urea Nitrogen 32 mg/dL (7-18) H Creatinine 1.2 MG/DL (0.55-1.30) Estimat Glomerular Filtration Rate > 60 mL/min (>60) Glucose Level 93 MG/DL (74-106) Calcium Level 9.4 MG/DL (8.5-10.1) Total Bilirubin 1.0 MG/DL (0.2-1.0) Aspartate Amino Transf (AST/SGOT) 64 U/L (15-37) H Alanine Aminotransferase (ALT/SGPT) 86 U/L (12-78) H Alkaline Phosphatase 212 U/L (46-116) H Total Protein 7.2 G/DL (6.4-8.2) Albumin 3.7 G/DL (3.4-5.0) Globulin 3.5 g/dL Albumin/Globulin Ratio 1.1 (1.0-2.7) Lipase 78 U/L (73-393) Urine Color Yellow Urine Appearance Clear Urine pH 6 (4.5-8.0) Urine Specific [place] 1.015 (1.005-1.035) Urine Protein 3+ (NEGATIVE) H Urine Glucose (UA) Negative (NEGATIVE) Urine Ketones Negative (NEGATIVE) Urine Blood 1+ (NEGATIVE) H Urine Nitrite Negative (NEGATIVE) Urine Bilirubin 1+ (NEGATIVE) H Urine Ictotest Negative (NEGATIVE) Urine Urobilinogen Normal MG/DL (0.0-1.0) Urine Leukocyte Esterase 1+ (NEGATIVE) H Urine RBC 2-4 /HPF (0 - 0) H Urine WBC 0-2 /HPF (0 - 0) Urine Squamous Epithelial Cells None /LPF (NONE/OCC) Urine Bacteria Few /HPF (NONE) Height (Feet): 5 Height (Inches): 11.00 Weight (Pounds): 135 Medications Current Medications Medications (Trade) Dose Ordered Sig/Anthony Route PRN Reason Start Time Stop Time Status Last Admin Dose Admin Acetaminophen (Tylenol) 650 mg Q4H PRN ORAL fever 10/31/18 19:45 11/30/18 19:44 Al Hydroxide/Mg Hydroxide (Mylanta II) 30 ml Q6H PRN ORAL dyspepsia 10/31/18 19:45 11/30/18 19:44 Chlorhexidine Gluconate (Val-Hex 2%) 1 applic DAILY@2000 TOPIC 11/01/18 20:00 12/01/18 19:59 Dextrose (Dextrose 50%) 25 ml Q30M PRN IV Hypoglycemia 10/31/18 19:45 11/30/18 19:44 Dextrose (Dextrose 50%) 50 ml Q30M PRN IV Hypoglycemia 10/31/18 20:00 11/30/18 19:59 Diphenhydramine HCl (Benadryl) 50 mg EVERY 4 HOURS PRN IVP Itching 11/01/18 11:45 12/01/18 11:44 UNV Diphenhydramine HCl (Benadryl) 50 mg Q4H PRN ORAL Itching 10/31/18 23:45 11/30/18 23:44 11/01/18 04:41 Folic Acid (Folate) 1 mg DAILY ORAL 11/01/18 09:00 12/01/18 08:59 11/01/18 08:35 Heparin Sodium (Porcine) (Heparin 5000 units/ml) 5,000 units EVERY 12 HOURS SUBQ 10/31/18 21:00 11/30/18 20:59 10/31/18 22:02 Hydromorphone HCl (Dilaudid) 3 mg Q3H PRN IVP For Pain 7-10 10/31/18 19:45 11/07/18 19:44 11/01/18 04:41 Hydroxyurea (Hydrea) 500 mg BID ORAL 11/01/18 09:00 11/06/18 08:59 11/01/18 08:35 Lacosamide (Vimpat) 100 mg BID ORAL 11/01/18 09:00 12/01/18 08:59 11/01/18 08:36 Lorazepam (Ativan 2mg/ml 1ml) 0.5 mg Q4H PRN IV For Anxiety 10/31/18 19:45 11/07/18 19:44 Methadone HCl (Methadone HCl) 60 mg Q6HR ORAL 11/01/18 12:00 11/08/18 11:59 Ondansetron HCl (Zofran) 4 mg Q6H PRN IVP Nausea & Vomiting 10/31/18 19:45 11/30/18 19:44 Polyethylene Glycol (Miralax) 17 gm HSPRN PRN ORAL Constipation 10/31/18 19:45 11/30/18 19:44 Sodium Chloride 1,000 ml @ 75 mls/hr [id number] IV 10/31/18 19:40 11/30/18 19:39 11/01/18 08:50 Zolpidem Tartrate (Ambien) 5 mg HSPRN PRN ORAL Insomnia 10/31/18 19:45 11/07/18 19:44 Assessment/Plan Problem List: (1) Sickle cell crisis ICD Codes: D57.00 - Hb-SS disease with crisis, unspecified SNOMED: 193241763 (2) Interstitial lung disease ICD Codes: J84.9 - Interstitial pulmonary disease, unspecified SNOMED: 62108317, 089285072 (3) Pulmonary HTN ICD Codes: I27.2 - Other secondary pulmonary hypertension SNOMED: 86929630 (4) Protein-calorie malnutrition, severe ICD Codes: E43 - Unspecified severe protein-calorie malnutrition SNOMED: 763982167, 436537228, 057556305 (5) Anemia ICD Codes: D64.9 - Anemia, unspecified SNOMED: 992875131 (6) severe diastolic heart disease (7) Seizure disorder ICD Codes: G40.909 - Epilepsy, unspecified, not intractable, without status epilepticus SNOMED: 172003750 Diagnosis [place] I: IV fluids respiratory treatment check LDH daily Dilaudid+ Benadryl iv prbc prn if hem less than 6 titrate fio2 to sat of 92% Hanna Mckenna MD Nov 01, 2018 11:41
[2018-11-01] MEDS ORDERED: DiphenhydrAMINE 50mg/ml Inj IVP PRN (11:45)
[2018-11-01 12:00] VITALS: BP 107/72
[2018-11-01] MEDS ORDERED: Cathflo Alteplase 2mg Inj INJ SCH ×2 (13:00→13:23)
[2018-11-01] MEDS ORDERED: Mylanta II UD 30ml ORAL PRN (13:23)
[2018-11-01] MEDS ORDERED: Miralax 17gm pkt ORAL PRN (13:26)
[2018-11-01] MEDS ORDERED: LORazepam Inj 2mg/ml 1ml IV PRN (13:26)
[2018-11-01 16:00] VITALS: BP 109/73
[2018-11-01] MEDS: DiphenhydrAMINE 50mg/ml Inj IVP PRN ×2 (17:12→21:18)
[2018-11-01 18:20] LABS: ALANINE AMINOTRANSFERASE 91 U/L (12-78); ALBUMIN 3.3 G/DL (3.4-5.0); ALBUMIN/GLOBULIN RATIO 0.9 (1.0-2.7); ALKALINE PHOSPHATASE 248 U/L (46-116); ANION GAP 6 mmol/L (5-15); ASPARTATE AMINO TRANSFERASE 74 U/L (15-37); BILIRUBIN,TOTAL 0.7 MG/DL (0.2-1.0); BLOOD UREA NITROGEN 25 mg/dL (7-18); CALCIUM 9.2 MG/DL (8.5-10.1); CARBON DIOXIDE 29 MMOL/L (21-32); CHLORIDE 106 MMOL/L (98-107); CREATININE 1.1 MG/DL (0.55-1.30); LACTATE DEHYDROGENASE 355 U/L (81-234); POTASSIUM 5.2 MMOL/L (3.5-5.1); SODIUM 141 MMOL/L (136-145)
[2018-11-01 18:22] LABS: HEMATOCRIT 20.2 % (42.0-52.0); MEAN CORPUSCULAR VOLUME 93 FL (80-99); PLATELET COUNT 377 K/UL (150-450); RED BLOOD COUNT 2.16 M/UL (4.70-6.10); RED CELL DISTRIBUTION WIDTH 19.6 % (11.6-14.8); WHITE BLOOD COUNT 20.1 K/UL (4.8-10.8)
--- NOTE | 2018-11-01 18:27 | Consultation ---
History of Present Illness General Chief Complaint: Pain Present Illness Allergies: Coded Allergies: PENTAMIDINE ISETHIONATE (Verified Allergy, Severe, palpitations, 08/27/17) AMPICILLIN (Verified Allergy, Unknown, hives, 01/05/18) Tolerated CEftriaxone 01/02/18 KETOROLAC (Verified Allergy, Unknown, 08/03/16) MORPHINE (Verified Allergy, Unknown, 08/03/16) PHENYTOIN (Verified Allergy, Unknown, 08/03/16) Medication History Scheduled Folic Acid* (Folic Acid*), 1 MG ORAL DAILY Hydromorphone HCl (Dilaudid), 14 MG ORAL EVERY 4 HOURS, (Reported) Hydroxyurea* (Hydrea*), 500 MG PO BID Lacosamide (Vimpat), 100 MG PO BID, (Reported) Methadone Hcl* (Methadone*), 60 MG PO Q6HR, (Reported) Scheduled PRN Diphenhydramine HCl (Benadryl), 50 MG PO Q4HR PRN for Itching, (Reported) Discontinued Medications Gabapentin* (Gabapentin*), 350 MG ORAL THREE TIMES A DAY, (Reported) Discontinued Reason: Pt stopped taking med Hydrocodone Bit/Acetaminophen 10-325* (Craig 10-325*), 1 TAB ORAL Q8HR PRN for For Pain, (Reported) Discontinued Reason: Pt stopped taking med Patient History Healthcare decision maker SELF Resuscitation status Full Code Advanced Directive on File No Physical Exam Last 24 Hour Vital Signs Date Time Temp Pulse Resp B/P (MAP) Pulse Ox O2 Delivery O2 Flow Rate FiO2 11/01/18 16:00 97.9 94 20 109/73 (85) 92 11/01/18 13:43 Nasal Cannula 6.0 11/01/18 12:00 6.0 11/01/18 12:00 97.3 91 20 107/72 (84) 100 11/01/18 09:00 Nasal Cannula 6.0 11/01/18 08:21 6.0 11/01/18 08:00 89 11/01/18 08:00 98.2 80 20 108/72 (84) 99 11/01/18 05:11 98.6 11/01/18 04:00 6.0 11/01/18 04:00 97.7 80 16 106/65 (79) 99 11/01/18 04:00 83 11/01/18 00:00 98.3 90 20 111/82 (92) 99 11/01/18 00:00 88 11/01/18 00:00 6.0 10/31/18 21:00 Nasal Cannula 6.0 10/31/18 20:28 Nasal Cannula 6.0 10/31/18 20:15 98.6 90 13 103/64 100 Nasal Cannula 6.0 90 10/31/18 20:00 88 10/31/18 20:00 98.1 94 16 127/90 (102) 100 10/31/18 19:23 98.9 90 13 103/64 100 Nasal Cannula 6.0 Intake and Output 10/31/18 11/01/18 19:00 07:00 Intake Total 2005 ml Output Total 700 ml Balance 1305 ml Intake Oral 480 ml IV Total 1525 ml Output Urine Total 700 ml Laboratory Tests Test 11/01/18 17:52 White Blood Count Pending Red Blood Count Pending Hemoglobin Pending Hematocrit Pending Mean Corpuscular Volume Pending Mean Corpuscular Hemoglobin Pending Mean Corpuscular Hemoglobin Concent Pending Red Cell Distribution Width Pending Platelet Count Pending Mean Platelet Volume Pending Neutrophils (%) (Auto) Pending Lymphocytes (%) (Auto) Pending Monocytes (%) (Auto) Pending Eosinophils (%) (Auto) Pending Basophils (%) (Auto) Pending Sodium Level 141 MMOL/L (136-145) Potassium Level 5.2 MMOL/L (3.5-5.1) H Chloride Level 106 MMOL/L (98-107) Carbon Dioxide Level 29 MMOL/L (21-32) Anion Gap 6 mmol/L (5-15) Blood Urea Nitrogen 25 mg/dL (7-18) H Creatinine 1.1 MG/DL (0.55-1.30) Estimat Glomerular Filtration Rate > 60 mL/min (>60) Glucose Level 121 MG/DL (74-106) H Calcium Level 9.2 MG/DL (8.5-10.1) Total Bilirubin 0.7 MG/DL (0.2-1.0) Aspartate Amino Transf (AST/SGOT) 74 U/L (15-37) H Alanine Aminotransferase (ALT/SGPT) 91 U/L (12-78) H Alkaline Phosphatase 248 U/L (46-116) H Lactate Dehydrogenase 355 U/L (81-234) H Total Protein 6.9 G/DL (6.4-8.2) Albumin 3.3 G/DL (3.4-5.0) L Globulin 3.6 g/dL Albumin/Globulin Ratio 0.9 (1.0-2.7) L Height (Feet): 5 Height (Inches): 11.00 Weight (Pounds): 135 Medications Current Medications Medications (Trade) Dose Ordered Sig/Anthony Route PRN Reason Start Time Stop Time Status Last Admin Dose Admin Acetaminophen (Tylenol) 650 mg Q4H PRN ORAL fever 11/01/18 13:23 12/01/18 13:22 Al Hydroxide/Mg Hydroxide (Mylanta II) 30 ml Q6H PRN ORAL dyspepsia 11/01/18 13:23 12/01/18 13:22 Chlorhexidine Gluconate (Val-Hex 2%) 1 applic DAILY@2000 TOPIC 11/01/18 20:00 12/01/18 19:59 Dextrose (Dextrose 50%) 25 ml Q30M PRN IV Hypoglycemia 11/01/18 13:45 11/30/18 19:44 Dextrose (Dextrose 50%) 50 ml Q30M PRN IV Hypoglycemia 11/01/18 13:30 11/30/18 19:59 Diphenhydramine HCl (Benadryl) 50 mg Q4H PRN IVP Itching 11/01/18 13:24 12/01/18 13:23 11/01/18 17:12 Diphenhydramine HCl (Benadryl) 50 mg Q4H PRN ORAL Itching 11/01/18 13:24 12/01/18 13:23 Folic Acid (Folate) 1 mg DAILY ORAL 11/02/18 09:00 12/01/18 08:59 Heparin Sodium (Porcine) (Heparin 5000 units/ml) 5,000 units EVERY 12 HOURS SUBQ 11/01/18 21:00 12/01/18 20:59 Hydromorphone HCl (Dilaudid) 3 mg Q3H PRN IVP For Pain 7-10 11/01/18 13:25 11/08/18 13:24 11/01/18 17:14 Hydroxyurea (Hydrea) 500 mg BID ORAL 11/01/18 18:00 11/06/18 08:59 Lacosamide (Vimpat) 100 mg BID ORAL 11/01/18 18:00 12/01/18 08:59 Lorazepam (Ativan 2mg/ml 1ml) 0.5 mg Q4H PRN IV For Anxiety 11/01/18 13:26 11/08/18 13:25 Methadone HCl (Methadone HCl) 60 mg Q6HR ORAL 11/01/18 18:00 11/08/18 11:59 Ondansetron HCl (Zofran) 4 mg Q6H PRN IVP Nausea & Vomiting 11/01/18 13:26 12/01/18 13:25 Polyethylene Glycol (Miralax) 17 gm HSPRN PRN ORAL Constipation 11/01/18 13:26 12/01/18 13:25 Sodium Chloride 1,000 ml @ 75 mls/hr [id number] IV 11/01/18 13:23 12/01/18 13:22 11/01/18 13:38 Zolpidem Tartrate (Ambien) 5 mg HSPRN PRN ORAL Insomnia 11/01/18 19:45 11/07/18 19:44 Assessment/Plan Assessment: Hematology/Oncology Consultation Requesting MD: Wan Zarate Date of Service: 11/01/18 Reason for consultation: Anemia and Leukocytosis, Sickle cell disease HISTORY OF PRESENT ILLNESS: The patient has a history of sickle cell anemia. The patient was last admitted to [facility] in June of 2018, 08/2018, I last saw him at that time. Please see history and physical and discharge summary dictated at that time. The patient now complains of back pain that radiates to the chest. The patient presented to [place] emergency room. The patient is admitted with chest pain and cough to rule out pneumonia. Hematology/Oncology was consulted for Anemia and Leukocytosis. PAST MEDICAL HISTORY: Sickle cell disease, History of seizure disorder, Avascular necrosis of the bilateral hips, Avascular necrosis of bilateral knees. PAST SURGICAL HISTORY: Tonsillectomy and adenoidectomy, Left tibia fibula fracture, Open reduction and internal fixation of left tibia fibula fracture, Pneumothorax. CURRENT MEDICATIONS:,Tylenol 650 mg p.o. daily, Benadryl 25 mg 2 tablets p.o. q.4 hours p.r.n, Folic acid 1 mg p.o. daily, Gabapentin 300 mg p.o. 3 times daily, Dilaudid 4 mg 3 tablets p.o. q.4 hours, Hydroxyurea 500 mg p.o. twice daily, Vimpat 100 mg p.o. twice bin, Methadone 60 mg p.o. q.6 hours. ALLERGIES: Ampicillin, Ketoralac, Morphine, Pentamidine, Phenytoin. SOCIAL HISTORY: The patient lives with his girlfriend and children. The patient is disabled. The patient denies tobacco or alcohol use. PHYSICAL EXAMINATION: VITAL SIGNS: Temperature 98.1, respirations 19, pulse 80,and blood pressure 127 /82. GENERAL: The patient is a well-developed and well nourished male, in no apparent distress. HEENT: Eyes, pupils are equal and responsive to light and accommodation. Extraocular movements are intact. NECK: Supple without lymphadenopathy. CHEST: Decreased crackles in bilateral bases. Otherwise, clear to auscultation without wheezes or rales. CARDIOVASCULAR: Regular rhythm and rate. S1 and S2 are normal without murmurs , rubs, or gallops. ABDOMEN: Soft, nontender, and nondistended. Positive bowel sounds. No evidence of hepatosplenomegaly. Currently, no rebound or guarding noted. EXTREMITIES: Negative for clubbing, cyanosis, or edema. RECTAL/GENITAL: Refused. NEUROLOGIC: Cranial nerves II through XII are grossly intact without focal deficits. Motor strength is 5/5 bilaterally. Deep tendon reflexes are 2+ plantar. ROS: Constitutional: No fever, no chills, no night sweats, no fatigue Skin: No rashes, lumps, itchiness, dryness HEENT: No LERMA, ear ache, visual changes, double vision, nosebleeds, sore throat, lumps, swollen glands Breasts: No lumps, pain, discharge Pulmonary: No cough, sputum, shortness of breath, coughing up blood, hemoptysis Cardiovascular: No chest pain, tightness, palpitations, syncope, claudication, orthopnea, PND GI: No nausea, vomiting, diarrhea, melena, hematochezia, change in appetite, abdominal pain : No dysuria, frequency, urgency, urinary incontinence, foamy urine Musculoskeletal: No joint swelling or muscle pain, trauma, back pain Neurologic: No dizziness, fainting, seizures, changes in smell or taste Psychiatric: No nervousness, stress, or depression, anxiety, hallucinations Endocrine: No weight change, heat or cold intolerance, tremor, insomnia LABORATORY STUDIES: noted above ASSESSMENT/Recs # Sickl cell disease with crisis presentation with total body pain --> IVF, benadryl, dilaudid --> No evidence of hemolysis is noted, peripheral smear has been reviewed. --> Hgb goal >7. Transfuse prn. --> Epogen or iron at this time is not particularly indicated --> Medications have been reviewed # Leukocytosis. Likely related to underlying infection versus reactive process --> have reviewed peripheral smear and bandemia/neutrophilia noted --> continue antibiotics if they have been started by ID team --> monitor for resolution # DVT of the bilateral lower ext --> hold off on anticoagulation at this time # History of seizure disorder, continue gabapentin as above. # Pulmonary hypertension. # History of avascular necrosis of the bilateral hips. # Avascular necrosis of bilateral knees. The timing of this note does not necessarily reflect the time of the patient was seen. Greatly appreciate consultation! Marco Dutton MD Nov 01, 2018 18:27
--- NOTE | 2018-11-01 18:29 | History & Physical ---
History and Physical History & Physicial Dictated for Int Med-DR Zarate no. [id number]. Mehdi Rosales MD Nov 01, 2018 18:29
[2018-11-01] MEDS: Hydroxyurea 500mg cap ORAL SCH (18:30)
[2018-11-01] MEDS: Lacosamide 50mg tablet ORAL SCH (18:30)
[2018-11-01 18:35] LABS: HEMOGLOBIN 6.7 G/DL (14.2-18.0)
[2018-11-01] MEDS ORDERED: Zolpidem 5mg tab ORAL PRN (19:45)
[2018-11-01 20:00] VITALS: BP 125/70
[2018-11-01] MEDS ORDERED: Dyna-Hex 2% Top Sol 2oz TOPIC SCH ×2 (20:00)
--- NOTE | 2018-11-01 22:00 | History and Physical Report ---
DATE OF ADMISSION: 10/31/2018 CHIEF COMPLAINT: The patient is a 42-year-old male, who presents with chief complaint of generalized pain. HISTORY OF PRESENT ILLNESS: The patient has a history of sickle cell anemia. The patient was last admitted to [facility] in August of 2018 for sickle cell crisis. The patient presented to [place] [facility]. The patient was complaining of bilateral leg and bilateral upper extremity pain. The patient states it began two weeks ago. The patient was admitted to [facility] two weeks ago and underwent laparoscopic cholecystectomy. The patient also complains of abdominal pain. The patient is admitted for generalized pain and sickle cell crisis. REVIEW OF SYSTEMS: CONSTITUTIONAL: The patient denies weight loss or weight gain. The patient denies fevers or chills. HEENT: The patient denies ear or throat pain. The patient denies headache. CARDIOVASCULAR: The patient denies palpitations or chest pain. CHEST: The patient denies wheeze or shortness of breath. ABDOMEN: The patient denies nausea, vomiting, diarrhea, or constipation. GENITOURINARY: The patient denies dysuria or increased frequency of urination. NEUROMUSCULAR: The patient complains of bilateral upper and lower extremity pain. The patient denies seizures or generalized weakness. PAST MEDICAL HISTORY: Significant for: 1. Sickle cell disease. 2. History of seizure disorder. 3. Avascular necrosis of bilateral hips. 4. Avascular necrosis of bilateral knees. PAST SURGICAL HISTORY: Significant for: 1. Laparoscopic cholecystectomy on 10/15/2018. 2. Tonsillectomy and adenoidectomy. 3. Left tibia-fibula fracture open reduction and internal fixation. 4. Pneumothorax. CURRENT MEDICATIONS: 1. Benadryl 25 mg p.o. q.4 h. p.r.n. 2. Folic acid 1 mg p.o. daily. 3. Dilaudid 4 mg p.o. q.4 h. p.r.n. 4. Hydroxyurea 500 mg p.o. twice daily. 5. Vimpat 100 mg p.o. twice daily. 6. Methadone 60 mg p.o. q.6 h. ALLERGIES: 1. Ampicillin. 2. Ketorolac. 3. Morphine. 4. Pentamidine. 5. Phenytoin. SOCIAL HISTORY: The patient is single. The patient denies tobacco or alcohol use. PHYSICAL EXAMINATION: VITAL SIGNS: Temperature 98.6, respirations 20, pulse 80, and blood pressure 108/72. GENERAL: The patient is a well-developed and well-nourished, thin-appearing male, in no apparent distress. HEENT: Eyes, pupils are equal and responsive to light and accommodation. Extraocular movements are intact. NECK: Supple without lymphadenopathy. CHEST: Lungs are clear to auscultation bilaterally without wheezes or rales. CARDIOVASCULAR: Regular rhythm and rate. S1 and S2 normal without murmurs, rubs, or gallops. ABDOMEN: Soft, nontender, and nondistended. Positive bowel sounds. No evidence of hepatosplenomegaly. Currently, no rebound or guarding noted. EXTREMITIES: Negative for clubbing, cyanosis, or edema. RECTAL: Refused. GENITAL: Refused. NEUROLOGIC: Cranial nerves II through XII grossly intact without focal deficits. Motor strength is 5/5 bilaterally. Deep tendon reflexes are 2+ plantar. LABORATORY STUDIES: WBC 21.0, hemoglobin 7.3, hematocrit 21.4, and platelets 350,000. Sodium 142, potassium 5.1, chloride 106, CO2 29, BUN 32, and creatinine 1.2. Glucose 93. Chest x-ray was reported as . CT of the abdomen and pelvis was reported as surgical clips in the gallbladder fossa. ASSESSMENT: This is a 42-year-old male with: 1. Sickle cell crisis. 2. Sickle cell disease. 3. Abdominal pain. 4. Generalized pain. 5. Seizure disorder. 6. Avascular necrosis of bilateral hips. 7. Avascular necrosis of bilateral knees. TREATMENT: 1. Sickle cell crisis. A pain management consultation has been obtained with Dr. Perera. The patient is currently receiving Dilaudid intravenously. We will follow recommendations of pain management. Continue methadone as above. 2. Abdominal pain. This is probably postop pain secondary to laparoscopic cholecystectomy two weeks ago. 3. Seizure disorder. The patient is currently off antiseizure medication. 4. Avascular necrosis of the bilateral hips and knees. Mehdi Rosales M.D. DR: REJI JOB#: [id number] CC:
[2018-11-02] VITALS: BP 123/92
[2018-11-02 01:05] VITALS: BP 123/92
[2018-11-02] MEDS: DiphenhydrAMINE 50mg/ml Inj IVP PRN ×4 (01:36→10:18)
[2018-11-02 04:00] VITALS: BP 122/92
[2018-11-02] MEDS: Hydroxyurea 500mg cap ORAL SCH (09:50)
[2018-11-02] MEDS: Lacosamide 50mg tablet ORAL SCH (09:50)
[2018-11-02] MEDS: Heparin 5000 units/ml inj SUBQ SCH ×2 (09:59→10:22)
[2018-11-02 10:47] LABS: ANION GAP 5 mmol/L (5-15); BLOOD UREA NITROGEN 28 mg/dL (7-18); CALCIUM 10.1 MG/DL (8.5-10.1); CARBON DIOXIDE 30 MMOL/L (21-32); CHLORIDE 106 MMOL/L (98-107); CREATININE 0.9 MG/DL (0.55-1.30); POTASSIUM 5.2 MMOL/L (3.5-5.1); SODIUM 141 MMOL/L (136-145)
--- NOTE | 2018-11-02 12:25 | General Progress Note ---
Assessment/Plan Assessment: ASSESSMENT/Recs # Sickl cell disease with crisis presentation with total body pain --> IVF, benadryl, dilaudid --> No evidence of hemolysis is noted, peripheral smear has been reviewed. --> Hgb goal >7. Transfuse prn. --> Epogen or iron at this time is not particularly indicated --> Medications have been reviewed --> labs from today pending # Leukocytosis. Likely related to underlying infection versus reactive process --> have reviewed peripheral smear and bandemia/neutrophilia noted --> continue antibiotics if they have been started by ID team --> monitor for resolution # DVT of the bilateral lower ext --> hold off on anticoagulation at this time # History of seizure disorder, continue gabapentin as above. # Pulmonary hypertension. # History of avascular necrosis of the bilateral hips. # Avascular necrosis of bilateral knees. The timing of this note does not necessarily reflect the time of the patient was seen. Greatly appreciate consultation! Subjective Constitutional: Denies: no symptoms, chills, diaphoresis, fever, malaise, weakness, other HEENT: Denies: no symptoms, eye pain, blurred vision, tearing, double vision, ear pain, ear discharge, nose pain, nose congestion, throat pain, throat swelling, mouth pain, mouth swelling, other Cardiovascular: Denies: no symptoms, chest pain, edema, irregular heart rate, lightheadedness, palpitations, syncope, other Respiratory: Denies: no symptoms, cough, orthopnea, shortness of breath, SOB with excertion, SOB at rest, sputum, stridor, wheezing, other Gastrointestinal/Abdominal: Denies: no symptoms, abdomen distended, abdominal pain, black stools, tarry stools, blood in stool, constipated, diarrhea, difficulty swallowing, nausea, poor appetite, poor fluid intake, rectal bleeding , vomiting, other Genitourinary: Denies: no symptoms, burning, discharge, frequency, flank pain, hematuria, incontinence, pain, urgency, other 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: Denies: no symptoms, anxiety, depressed, emotional problems, headache, numbness, paresthesia, pre-existing deficit, seizure, tingling, tremors, weakness, other Endocrine: Denies: no symptoms, excessive sweating, flushing, intolerance to cold, intolerance to heat, increased hunger, increased thirst, increased urine, unexplained weight gain, unexplained weight loss, other Allergies: Coded Allergies: PENTAMIDINE ISETHIONATE (Verified Allergy, Severe, palpitations, 08/27/17) AMPICILLIN (Verified Allergy, Unknown, hives, 01/05/18) Tolerated CEftriaxone 01/02/18 KETOROLAC (Verified Allergy, Unknown, 08/03/16) MORPHINE (Verified Allergy, Unknown, 08/03/16) PHENYTOIN (Verified Allergy, Unknown, 08/03/16) Subjective 11/02: patient was seen and examined, wants to go today home Objective Last 24 Hour Vital Signs Date Time Temp Pulse Resp B/P (MAP) Pulse Ox O2 Delivery O2 Flow Rate FiO2 11/02/18 07:45 99 Nasal Cannula 5.0 40 11/02/18 07:45 Nasal Cannula 5.0 40 11/02/18 06:24 98.0 11/02/18 04:00 98.0 80 18 122/92 (102) 11/02/18 03:08 5.0 40 11/02/18 01:58 Nasal Cannula 5.0 40 11/02/18 01:58 99 Nasal Cannula 5.0 40 11/02/18 01:05 98.2 81 123/92 (102) 16 11/02/18 00:00 98.2 81 16 123/92 (102) 82 11/01/18 21:50 6.0 44 11/01/18 21:00 Nasal Cannula 6.0 11/01/18 20:00 98.3 89 18 125/70 (88) 11/01/18 18:55 6.0 44 11/01/18 16:00 97.9 94 20 109/73 (85) 92 11/01/18 13:43 Nasal Cannula 6.0 Intake and Output 11/01/18 11/02/18 19:00 07:00 Intake Total 1410 ml Output Total 2250 ml 1200 ml Balance -840 ml -1200 ml Intake Oral 960 ml IV Total 450 ml Output Urine Total 2250 ml 1200 ml Laboratory Tests 11/01/18 17:52: White Blood Count 20.1H, Red Blood Count 2.16L, Hemoglobin 6.7*L, Hematocrit 20.2L, Mean Corpuscular Volume 93, Mean Corpuscular Hemoglobin 31.2H, Mean Corpuscular Hemoglobin Concent 33.4, Red Cell Distribution Width 19.6H, Platelet Count 377, Mean Platelet Volume 7.2, Neutrophils (%) (Auto) , Lymphocytes (%) (Auto) , Monocytes (%) (Auto) , Eosinophils (%) (Auto) , Basophils (%) (Auto) , Differential Total Cells Counted 100, Neutrophils % ( Manual) 63, Lymphocytes % (Manual) 14L, Monocytes % (Manual) 5, Eosinophils % ( Manual) 17H, Basophils % (Manual) 1, Band Neutrophils 0, Platelet Estimate Adequate, Platelet Morphology Normal, Hypochromasia 2+, Anisocytosis 2+, Target Cells 1+, Reticulocyte Count 2.8H, Sodium Level 141, Potassium Level 5.2H, Chloride Level 106, Carbon Dioxide Level 29, Anion Gap 6, Blood Urea Nitrogen 25H, Creatinine 1.1, Estimat Glomerular Filtration Rate > 60, Glucose Level 121H , Calcium Level 9.2, Ferritin 1664H, Total Bilirubin 0.7, Aspartate Amino Transf (AST/SGOT) 74H, Alanine Aminotransferase (ALT/SGPT) 91H, Alkaline Phosphatase 248H, Lactate Dehydrogenase 355H, Total Protein 6.9, Albumin 3.3L, Globulin 3.6, Albumin/Globulin Ratio 0.9L 11/02/18 10:28: Sodium Level 141, Potassium Level 5.2H, Chloride Level 106, Carbon Dioxide Level 30, Anion Gap 5, Blood Urea Nitrogen 28H, Creatinine 0.9, Estimat Glomerular Filtration Rate > 60, Glucose Level 110H, Calcium Level 10.1, Lactate Dehydrogenase 354H Height (Feet): 5 Height (Inches): 11.00 Weight (Pounds): 135 Objective PHYSICAL EXAMINATION: VITAL SIGNS: Temperature 98.1, respirations 19, pulse 80,and blood pressure 127 /82. GENERAL: The patient is a well-developed and well nourished male, in no apparent distress. HEENT: Eyes, pupils are equal and responsive to light and accommodation. Extraocular movements are intact. NECK: Supple without lymphadenopathy. CHEST: Decreased crackles in bilateral bases. Otherwise, clear to auscultation without wheezes or rales. CARDIOVASCULAR: Regular rhythm and rate. S1 and S2 are normal without murmurs , rubs, or gallops. ABDOMEN: Soft, nontender, and nondistended. Positive bowel sounds. No evidence of hepatosplenomegaly. Currently, no rebound or guarding noted. EXTREMITIES: Negative for clubbing, cyanosis, or edema. RECTAL/GENITAL: Refused. NEUROLOGIC: Cranial nerves II through XII are grossly intact without focal KleynMarco krause MD Nov 02, 2018 12:25
--- NOTE | 2018-11-03 11:56 | Discharge Summary ---
Discharge Summary Discharge Summary _ DATE OF ADMISSION: 10/31/2018 DATE OF DISCHARGE: 11/02/2018 Patient left AGAINST MEDICAL ADVICE REASON FOR ADMISSION: 42 years old male with past medical history of sickle cell disease, DVT bilateral lower extremity, COPD/asthma, recent cholecystectomy, hypertension, diastolic congestive heart failure, severe pulmonary hypertension, seizure disorder, anemia, sickle cell disease, avascular necrosis bilateral hip and knee , presented to emergency department with complaints of generalized body pain and dyspnea. Patient chronically oxygen dependent at home. Upon evaluation patient was tachycardic with heart rate of 143, had a low- grade fever. Pulse oximetry was 77% on room air. Laboratory workup revealed leukocytosis WBC 21, hemoglobin 7.3, hematocrit 21.4 , MCV 90. Reticulocyte count 2.4. Potassium 5.1 . BUN 32 creatinine 1.2,. AST 64, ALT 86. Urinalysis revealed no evidence of urinary tract infection, +3 protein. LDH 355. EKG revealed sinus tachycardia, no acute ischemic changes. CT of the abdomen and pelvis demonstrated findings suggestive of chronic interstitial lung disease. Component of acute infectious/inflammatory process could not be excluded. Cardiomegaly and mild pericardial effusion. Surgical clips in the gallbladder fossa. Fluid noted in the gallbladder fossa, which may be related to postoperative changes versus seroma. Possibility of bile leak or infected fluid was not excluded. Patient was admitted to medical surgical floor for further management. CONSULTANTS: pulmonary Dr. Mckenna environmental engineering technician/oncologist Dr. Dutton [facility] COURSE: Patient admitted and started on intravenous hydration. Supplemental oxygen provided as need to keep pulse oximetry above 92%. Pulmonary toilet provided as needed. Pulse oximetry was stable on oxygen 5 L via nasal cannula. Pain management was addressed with Dilaudid and Benadryl. Hemoglobin and hematocrit were closely monitored with goal to keep hemoglobin above 7. Patient undergone transfusion of 2 units of packed red blood cells for hemoglobin 6.7 Patient was continued on hydroxyurea and folate. DVT prophylaxis provided. Seizure precaution maintained. Vimpat was continued. Bowel regimen instituted. Renal parameters and electrolytes were closely monitored. Electrolytes corrected as needed. BUN from 32 down to 28, creatinine from 1.2 down to 0.9. LDH was followed up and remain elevated above 300. Cylinder Loader followed. Per environmental engineering technician patient had sickle cell disease with crisis presentation with total body pain. No evidence of hemolysis noted. Leukocytosis was likely reactive due to underlying sickle cell disease or possibly related to underlying infection . Peripheral smear revealed bandemia/neutrophilia. Patient had no fevers and later refused blood work to be done. Clinically patient was feeling better and decided to sign AGAINST MEDICAL ADVICE. Family member was at bedside to pick him up. The risks and consequences of signing AGAINST MEDICAL ADVICE were discussed with patient in detail. Patient verbalized understanding, nevertheless signed AMA form and left. FINAL DIAGNOSES: Sickle cell disease with crisis presentation Leukocytosis Interstitial lung disease Pulmonary hypertension Severe protein calorie malnutrition Anemia of sickle cell disease Severe diastolic heart failure Seizure disorder History of avascular necrosis of bilateral hip and bilateral knees I have been assigned to dictate discharge summary for this account. I was not involved in the patient's management. Mikayla Camara NP Nov 03, 2018 11:56
--- NOTE | 2018-11-05 12:04 | Cardiology Report ---
APPROVED REPORT EKG Measurement Heart [id number] Normal sinus rhythm Right bundle branch block Voltage criteria for left ventricular hypertrophy T wave abnormality, consider anterolateral ischemia Abnormal ECG
== END 2018-11-02 11:20 | disposition left against medical advice (07) | DRG 662 ==
LOC: EMR 17:00 → EDBEDREQ 17:00 → 2E 17:25 → EDBEDREQ 17:31 → 4E 11-01 13:10
PROC: 30233N1 Transfusion of Nonautologous Red Blood Cells into Peripheral Vein, Percutaneous Approach (ICD-10-PCS; principal; 2018-11-01)
DX: D57.00 Hb-SS disease with crisis, unspecified (principal); E43 Unspecified severe protein-calorie malnutrition; J84.9 Interstitial pulmonary disease, unspecified; I27.20 Pulmonary hypertension, unspecified; M87.852 Other osteonecrosis, left femur; M87.851 Other osteonecrosis, right femur; I11.0 Hypertensive heart disease with heart failure; I50.32 Chronic diastolic (congestive) heart failure; I50.30 Unspecified diastolic (congestive) heart failure; I82.4Z3 Acute embolism and thrombosis of unspecified deep veins of distal lower extremity, bilateral; Z68.1 Body mass index [BMI] 19.9 or less, adult; J44.9 Chronic obstructive pulmonary disease, unspecified; D64.9 Anemia, unspecified; Z88.6 Allergy status to analgesic agent; Z88.1 Allergy status to other antibiotic agents; Z88.8 Allergy status to other drugs, medicaments and biological substances; G40.909 Epilepsy, unspecified, not intractable, without status epilepticus; G89.18 Other acute postprocedural pain; R10.9 Unspecified abdominal pain; Z90.49 Acquired absence of other specified parts of digestive tract; Z86.718 Personal history of other venous thrombosis and embolism
CPT/HCPCS: 36415; 74176; 80048; 80053; 81003; 82728; 83615; 83690; 85007; 85025; 85044; 86850; 86900; 86901; 86920; 93005; 94760; 96361; 96374; 96375; 99285; J2765

== ENCOUNTER 2018-11-11 15:37 | Emergency (ER) | payer MEDICARE, OTHER ==
[~2018-11-11] VITALS: Ht 180.3 cm; Wt 64.9 kg
--- NOTE | 2018-11-11 15:56 | Emergency Room Report ---
History of Present Illness General Chief Complaint: General Complaint Source: Patient Present Illness HPI Patient is a 42-year-old male presented for increased generalized pain. Patient states symptoms present for 3 days. Patient a prior history of sickle cell disease. Patient had similar symptoms in the past. Patient had multiple prior visits for similar symptoms. Allergies: Coded Allergies: PENTAMIDINE ISETHIONATE (Verified Allergy, Severe, palpitations, 08/27/17) AMPICILLIN (Verified Allergy, Unknown, hives, 01/05/18) Tolerated CEftriaxone 01/02/18 KETOROLAC (Verified Allergy, Unknown, 08/03/16) MORPHINE (Verified Allergy, Unknown, 08/03/16) PHENYTOIN (Verified Allergy, Unknown, 08/03/16) Patient History Past Medical History: see triage record Reviewed Nursing Documentation: PMH: Agreed; PSxH: Agreed Nursing Documentation-PMH Past Medical History: No History, Except For Hx Cardiac Problems: Yes Hx Hypertension: Yes Hx Asthma: Yes Hx COPD: Yes Hx Cancer: No Hx Gastrointestinal Problems: Yes Hx Neurological Problems: Yes Hx Seizures: Yes Review of Systems All Other Systems: negative except mentioned in HPI Physical Exam Vital Signs Date Time Temp Pulse Resp B/P (MAP) Pulse Ox O2 Delivery O2 Flow Rate FiO2 11/11/18 15:49 99.1 82 17 149/97 100 Room Air Sp02 EP Interpretation: reviewed, normal General Appearance: normal inspection, well appearing, no apparent distress, alert, Chronically Ill Head: atraumatic ENT: normal ENT inspection, hearing grossly normal, normal voice Neck: normal inspection, full range of motion, supple, no bony tend Respiratory: normal inspection, lungs clear, normal breath sounds, no respiratory distress, no retraction, no wheezing Cardiovascular #1: regular rate, rhythm, no edema Gastrointestinal: normal inspection, normal bowel sounds, non tender, soft, no guarding, no hernia Genitourinary: no CVA tenderness Musculoskeletal: normal inspection, back normal, normal range of motion Neurologic: alert, oriented x3, responsive, speech normal, other - disconjugate gaze Psychiatric: normal inspection, judgement/insight normal, mood/affect normal Skin: normal inspection, normal color, no rash Medical Decision Making Diagnostic Impression: Primary Impression: Chronic pain Additional Impression: Pulmonary HTN ER Course . Patient presented for sickle cell disease. Differential diagnosis included but was not limited to have sickle cell pain crisis, aplastic crisis, sequestration, osteomyelitis, acute chest syndrome among others. Because of complexity of patient's case laboratory testing and imaging studies were ordered. Patient's laboratory testing was improved from recent labs from 2 weeks ago. Patient was given pain medications with improvement. Patient is known to chronically take oxygen. Patient was discharged home. He is advised to follow-up with his manager of it this week. Labs Test 11/11/18 16:00 White Blood Count 10.2 K/UL (4.8-10.8) Red Blood Count 2.96 M/UL (4.70-6.10) Hemoglobin 8.8 G/DL (14.2-18.0) Hematocrit 26.8 % (42.0-52.0) Mean Corpuscular Volume 90 FL (80-99) Mean Corpuscular Hemoglobin 29.7 PG (27.0-31.0) Mean Corpuscular Hemoglobin Concent 32.9 G/DL (32.0-36.0) Red Cell Distribution Width 17.2 % (11.6-14.8) Platelet Count 367 K/UL (150-450) Mean Platelet Volume 6.1 FL (6.5-10.1) Neutrophils (%) (Auto) 57.3 % (45.0-75.0) Lymphocytes (%) (Auto) 36.3 % (20.0-45.0) Monocytes (%) (Auto) 3.8 % (1.0-10.0) Eosinophils (%) (Auto) 0.3 % (0.0-3.0) Basophils (%) (Auto) 2.3 % (0.0-2.0) Reticulocyte Count 0.5 % (0.0-2.0) Sodium Level 138 MMOL/L (136-145) Potassium Level 3.9 MMOL/L (3.5-5.1) Chloride Level 104 MMOL/L (98-107) Carbon Dioxide Level 26 MMOL/L (21-32) Anion Gap 8 mmol/L (5-15) Blood Urea Nitrogen 21 mg/dL (7-18) Creatinine 0.9 MG/DL (0.55-1.30) Estimat Glomerular Filtration Rate > 60 mL/min (>60) Glucose Level 129 MG/DL (74-106) Calcium Level 10.0 MG/DL (8.5-10.1) Total Bilirubin 0.8 MG/DL (0.2-1.0) Aspartate Amino Transf (AST/SGOT) 77 U/L (15-37) Alanine Aminotransferase (ALT/SGPT) 82 U/L (12-78) Alkaline Phosphatase 208 U/L (46-116) Total Protein 7.3 G/DL (6.4-8.2) Albumin 3.8 G/DL (3.4-5.0) Globulin 3.5 g/dL Albumin/Globulin Ratio 1.1 (1.0-2.7) Last Vital Signs Date Time Temp Pulse Resp B/P (MAP) Pulse Ox O2 Delivery O2 Flow Rate FiO2 11/11/18 15:49 99.1 82 17 149/97 100 Room Air Status: improved Disposition: HOME, SELF-CARE Condition: Stable Jose Antonio Davies MD Nov 11, 2018 15:56
[2018-11-11 16:00] VITALS: BP 149/97
[2018-11-11] MEDS ORDERED: HYDROmorphone 2 MG in NS 55 ML IV ONE (16:00)
--- NOTE | 2018-11-11 16:03 | NUR ---
ED Nurse Note: Patient present at ER c/o sickle cell crisis pain 9/10 in general body. pt has a port-a-cath on Rt upper chest. 20G needle was inserted without complication. pt aao x4 and ambulatory but weak due to severe pain. skin clean and intact. pt calm and cooperative.
[2018-11-11 16:06] LABS: BASOPHILS % (AUTO) 2.3 % (0.0-2.0); EOSINOPHILS % (AUTO) 0.3 % (0.0-3.0); HEMATOCRIT 26.8 % (42.0-52.0); HEMOGLOBIN 8.8 G/DL (14.2-18.0); LYMPHOCYTES % (AUTO) 36.3 % (20.0-45.0); MEAN CORPUSCULAR VOLUME 90 FL (80-99); MONOCYTES % (AUTO) 3.8 % (1.0-10.0); NEUTROPHILS % (AUTO) 57.3 % (45.0-75.0); PLATELET COUNT 367 K/UL (150-450); RED BLOOD COUNT 2.96 M/UL (4.70-6.10); RED CELL DISTRIBUTION WIDTH 17.2 % (11.6-14.8); WHITE BLOOD COUNT 10.2 K/UL (4.8-10.8)
[2018-11-11] MEDS: DiphenhydrAMINE 25mg/10ml Elixir ORAL ONE ×2 (16:07→16:16)
[2018-11-11 16:21] LABS: ANION GAP 8 mmol/L (5-15); BLOOD UREA NITROGEN 21 mg/dL (7-18); CARBON DIOXIDE 26 MMOL/L (21-32); CHLORIDE 104 MMOL/L (98-107); CREATININE 0.9 MG/DL (0.55-1.30); POTASSIUM 3.9 MMOL/L (3.5-5.1); SODIUM 138 MMOL/L (136-145)
[2018-11-11 16:26] LABS: ALANINE AMINOTRANSFERASE 82 U/L (12-78); ALBUMIN 3.8 G/DL (3.4-5.0); ALBUMIN/GLOBULIN RATIO 1.1 (1.0-2.7); ALKALINE PHOSPHATASE 208 U/L (46-116); ASPARTATE AMINO TRANSFERASE 77 U/L (15-37); BILIRUBIN,TOTAL 0.8 MG/DL (0.2-1.0)
--- NOTE | 2018-11-11 16:53 | NUR ---
ED Nurse Note: Pt c/o pain level 7/10. reported to ERMD.
[2018-11-11] MEDS ORDERED: Heparin Sod 1000 units/ml 10ml INJ ONE (17:30)
[2018-11-11 17:38] VITALS: BP 151/79
--- NOTE | 2018-11-11 17:40 | NUR ---
ER DISCHARGE NOTE: Patient is cleared to be discharged per ERMD, pt is aox4, with 2L/via NC with his own portable oxygen tank, with stable vital signs. pt was given dc instructions, pt was able to verbalize understanding, pt id band and port a cath needle removed after heparin flushed without complications. pt is able to ambulate but assisted with wheelchair due to weakness. pt took all belongings.
== END 2018-11-11 17:40 | disposition home or self-care (01) ==
LOC: EMR 16:15
DX: G89.29 Other chronic pain (principal); Z88.6 Allergy status to analgesic agent; Z88.0 Allergy status to penicillin; I10 Essential (primary) hypertension; J44.9 Chronic obstructive pulmonary disease, unspecified; G40.909 Epilepsy, unspecified, not intractable, without status epilepticus; I27.20 Pulmonary hypertension, unspecified; D57.1 Sickle-cell disease without crisis
CPT/HCPCS: 36415; 80053; 85025; 85044; 86850; 86900; 86901; 96374; 96375; 99284; J1170; J1644; J7040

== ENCOUNTER 2018-11-14 14:26 | Inpatient (IN) | payer MEDICARE, OTHER ==
[~2018-11-14] VITALS: Ht 180.3 cm; Wt 66.2 kg
[2018-11-14 14:39] VITALS: BP 125/77
[2018-11-14] MEDS ORDERED: HYDROmorphone 1mg/ml Carpuject IVP ONE (15:15)
[2018-11-14] MEDS ORDERED: DiphenhydrAMINE 50mg/ml Inj IVP ONE (15:15)
--- NOTE | 2018-11-14 15:18 | Emergency Room Report ---
History of Present Illness General Chief Complaint: General Complaint Source: Patient Present Illness HPI 42-year-old male presents ED for evaluation. Patient complaining of chest pain and shortness of breath. Started today. Pain is sharp, 8 out of 10, nonradiating. History of sickle cell disease. States he has a cough which is dry. Also history of seizures. Had a seizure this morning. No head injury. Denies alcohol or drug use. No other aggravating relieving factors. Denies any other associated symptoms Allergies: Coded Allergies: PENTAMIDINE ISETHIONATE (Verified Allergy, Severe, palpitations, 08/27/17) AMPICILLIN (Verified Allergy, Unknown, hives, 01/05/18) Tolerated CEftriaxone 01/02/18 KETOROLAC (Verified Allergy, Unknown, 08/03/16) MORPHINE (Verified Allergy, Unknown, 08/03/16) PHENYTOIN (Verified Allergy, Unknown, 08/03/16) Patient History Past Medical History: HTN, asthma, COPD, seizures, other - sickle cell anemia Past Surgical History: none Pertinent Family History: none Social History: Denies: smoking, alcohol use, drug use Immunizations: UTD Reviewed Nursing Documentation: PMH: Agreed; PSxH: Agreed Nursing Documentation-PMH Past Medical History: No History, Except For Hx Cardiac Problems: Yes - Sickle cell anemia Hx Hypertension: Yes Hx Asthma: Yes Hx COPD: Yes Hx Cancer: No Hx Gastrointestinal Problems: Yes Hx Neurological Problems: Yes Hx Seizures: Yes Review of Systems All Other Systems: negative except mentioned in HPI Physical Exam Vital Signs Date Time Temp Pulse Resp B/P (MAP) Pulse Ox O2 Delivery O2 Flow Rate FiO2 11/14/18 14:35 98.2 106 11 125/77 98 Room Air 11/14/18 14:39 6.0 Sp02 EP Interpretation: reviewed, normal General Appearance: no apparent distress, alert, GCS 15, non-toxic Head: normocephalic, atraumatic Eyes: bilateral eye normal inspection, bilateral eye PERRL ENT: hearing grossly normal, normal pharynx, no angioedema, normal voice Neck: full range of motion, supple/symm/no masses Respiratory: chest non-tender, lungs clear, normal breath sounds, speaking full sentences, other - portacath access on R chest Cardiovascular #1: no edema, tachycardia Cardiovascular #2: 2+ carotid (R), 2+ carotid (L), 2+ radial (R), 2+ radial (L) , 2+ dorsalis pedis (R), 2+ dorsalis pedis (L) Gastrointestinal: normal bowel sounds, non tender, soft, non-distended, no guarding, no rebound Rectal: deferred Genitourinary: normal inspection, no CVA tenderness Musculoskeletal: back normal, gait/station normal, normal range of motion, non- tender Neurologic: alert, oriented x3, responsive, motor strength/tone normal, sensory intact, speech normal Psychiatric: judgement/insight normal, memory normal, mood/affect normal, no suicidal/homicidal ideation Reflexes: 3+ bicep (R), 3+ bicep (L), 3+ tricep (R), 3+ tricep (L), 3+ knee (R) , 3+ knee (L) Skin: normal color, no rash, warm/dry, well hydrated Lymphatic: no adenopathy Medical Decision Making Diagnostic Impression: Primary Impression: Sickle cell crisis Additional Impressions: Acute chest syndrome Seizure disorder ER Course Hospital Course 42 yo M presents with cough, chest pain, generalized pain. 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 After initial history and physical I ordered labs, EKG, chest x-ray, pain medications labs reviewed- WBC > 15, Hb 8.0, electrolyes ok, LFTs elevated, LDH 372 EKG - NSR, no acute ischemic changes interpreted by me Chest x-ray- bilateral hazy opacities - ? infiltrate Abx given. Pain meds given. IV fluids given. Discussed with PMD Dr Dutton Case discussed with Dr. Mckenna (requested by Dr Dutton) and he agreed to accept the patient to his service for further care and support I. I feel this is a highly complex case requiring extensive working including EKG/Rhythm strip, Xray/CT/US, Blood/urine lab work, repeat exams while in ED, and administration of strong opiates/narcotics for pain control, admission to hospital or close patient follow up. Diagnosis - sickle cell crisis, acute chest syndrome, seizure disorder admitted to telemetry in serious condition Labs Test 11/14/18 15:00 White Blood Count 15.7 K/UL (4.8-10.8) Red Blood Count 2.70 M/UL (4.70-6.10) Hemoglobin 8.0 G/DL (14.2-18.0) Hematocrit 25.2 % (42.0-52.0) Mean Corpuscular Volume 93 FL (80-99) Mean Corpuscular Hemoglobin 29.6 PG (27.0-31.0) Mean Corpuscular Hemoglobin Concent 31.7 G/DL (32.0-36.0) Red Cell Distribution Width 17.2 % (11.6-14.8) Platelet Count 241 K/UL (150-450) Mean Platelet Volume 7.6 FL (6.5-10.1) Neutrophils (%) (Auto) 49.7 % (45.0-75.0) Lymphocytes (%) (Auto) 31.8 % (20.0-45.0) Monocytes (%) (Auto) 4.5 % (1.0-10.0) Eosinophils (%) (Auto) 12.6 % (0.0-3.0) Basophils (%) (Auto) 1.4 % (0.0-2.0) Prothrombin Time 12.5 SEC (9.30-11.50) Prothromb Time International Ratio 1.2 (0.9-1.1) Activated Partial Thromboplast Time 32 SEC (23-33) Urine Color Pale yellow Urine Appearance Clear Urine pH 5 (4.5-8.0) Urine Specific [place] 1.010 (1.005-1.035) Urine Protein 3+ (NEGATIVE) Urine Glucose (UA) Negative (NEGATIVE) Urine Ketones Negative (NEGATIVE) Urine Blood Negative (NEGATIVE) Urine Nitrite Negative (NEGATIVE) Urine Bilirubin Negative (NEGATIVE) Urine Urobilinogen Normal MG/DL (0.0-1.0) Urine Leukocyte Esterase 1+ (NEGATIVE) Urine RBC 0-2 /HPF (0 - 0) Urine WBC 0-2 /HPF (0 - 0) Urine Squamous Epithelial Cells None /LPF (NONE/OCC) Urine Bacteria Few /HPF (NONE) Sodium Level 141 MMOL/L (136-145) Potassium Level 4.9 MMOL/L (3.5-5.1) Chloride Level 105 MMOL/L (98-107) Carbon Dioxide Level 32 MMOL/L (21-32) Anion Gap 4 mmol/L (5-15) Blood Urea Nitrogen 29 mg/dL (7-18) Creatinine 0.8 MG/DL (0.55-1.30) Estimat Glomerular Filtration Rate > 60 mL/min (>60) Glucose Level 123 MG/DL (74-106) Calcium Level 9.8 MG/DL (8.5-10.1) Total Bilirubin 0.9 MG/DL (0.2-1.0) Aspartate Amino Transf (AST/SGOT) 77 U/L (15-37) Alanine Aminotransferase (ALT/SGPT) 97 U/L (12-78) Alkaline Phosphatase 235 U/L (46-116) Lactate Dehydrogenase 372 U/L (81-234) Total Creatine Kinase 17 U/L (26-308) Creatine Kinase MB 1.5 NG/ML (0.0-3.6) Creatine Kinase MB Relative Index 8.8 Troponin I 0.004 ng/mL (0.000-0.056) Pro-B-Type Natriuretic Peptide 34 pg/mL (0-125) Total Protein 6.9 G/DL (6.4-8.2) Albumin 3.7 G/DL (3.4-5.0) Globulin 3.2 g/dL Albumin/Globulin Ratio 1.2 (1.0-2.7) EKG Diagnostic Results Rate: tachycardiac Rhythm: NSR ST Segments: no acute changes ASA given to the pt in ED: No Rhythm Strip Diag. Results EP Interpretation: yes Rhythm: NSR, no PVC's, no ectopy Chest X-Ray Diagnostic Results Chest X-Ray Diagnostic Results : Chest X-Ray Ordered: Yes # of Views/Limited/Complete: 1 View Indication: Shortness of Breath EP Interpretation: Yes Interpretation: no pneumothorax, other - bilateral faint opacities. infiltrate vs pulmonary edema Impression: Other - pneumonia Electronically Signed by: Electronically signed by Andrés Yoon MD Last Vital Signs Date Time Temp Pulse Resp B/P (MAP) Pulse Ox O2 Delivery O2 Flow Rate FiO2 11/14/18 14:39 106 11 Nasal Cannula 6.0 11/14/18 14:39 98.2 125/77 98 Status: improved Disposition: ADMITTED INPATIENT Condition: Serious Referrals: NOT CHOSEN IPA/,REFERRING (PCP) Andrés Yoon MD November 14, 2018 15:18
--- NOTE | 2018-11-14 15:22 | Diagnostic Imaging Report ---
Indication: Shortness breath, chest pain Technique: One view of the chest Comparison: 09/13/2018 Findings: Inspiration is suboptimal. Bilateral faint somewhat diffuse airspace opacities are demonstrated. This is similar to the prior exam, possibly exaggerated by the low lung volumes. Right chest port catheter is again demonstrated. The heart is borderline enlarged. Pleural spaces are probably clear. Impression: Bilateral faint hazy mostly airspace opacities, could represent infectious infiltrates or pulmonary edema. Borderline cardiomegaly Other findings as noted
[2018-11-14 15:25] LABS: BASOPHILS % (AUTO) 1.4 % (0.0-2.0); EOSINOPHILS % (AUTO) 12.6 % (0.0-3.0); HEMATOCRIT 25.2 % (42.0-52.0); LYMPHOCYTES % (AUTO) 31.8 % (20.0-45.0); MEAN CORPUSCULAR VOLUME 93 FL (80-99); MONOCYTES % (AUTO) 4.5 % (1.0-10.0); NEUTROPHILS % (AUTO) 49.7 % (45.0-75.0); PLATELET COUNT 241 K/UL (150-450); RED CELL DISTRIBUTION WIDTH 17.2 % (11.6-14.8); WHITE BLOOD COUNT 15.7 K/UL (4.8-10.8)
[2018-11-14 15:31] LABS: APPEARANCE,URINE CLEAR; BILIRUBIN, URINE NEGATIVE (NEGATIVE); COLOR,URINE PALE YELLOW; GLUCOSE, URINE (UA) NEGATIVE (NEGATIVE); KETONES,URINE NEGATIVE (NEGATIVE); LEUKOCYTE ESTERASE ,URINE 1+ (NEGATIVE); NITRITE,URINE NEGATIVE (NEGATIVE); PH,URINE 5 (4.5-8.0); PROTEIN,URINE 3+ (NEGATIVE); UROBILINOGEN,URINE NORMAL MG/DL (0.0-1.0)
[2018-11-14 15:36] LABS: INR 1.2 (0.9-1.1)
[2018-11-14 15:42] LABS: ANION GAP 4 mmol/L (5-15); BLOOD UREA NITROGEN 29 mg/dL (7-18); CALCIUM 9.8 MG/DL (8.5-10.1); CARBON DIOXIDE 32 MMOL/L (21-32); CHLORIDE 105 MMOL/L (98-107); CREATININE 0.8 MG/DL (0.55-1.30); POTASSIUM 4.9 MMOL/L (3.5-5.1); SODIUM 141 MMOL/L (136-145)
[2018-11-14 15:55] LABS: ALANINE AMINOTRANSFERASE 97 U/L (12-78); ALBUMIN 3.7 G/DL (3.4-5.0); ALBUMIN/GLOBULIN RATIO 1.2 (1.0-2.7); ALKALINE PHOSPHATASE 235 U/L (46-116); ASPARTATE AMINO TRANSFERASE 77 U/L (15-37); BILIRUBIN,TOTAL 0.9 MG/DL (0.2-1.0); CKMB 1.5 NG/ML (0.0-3.6); CREATINE KINASE 17 U/L (26-308)
[2018-11-14] MEDS ORDERED: Mylanta II UD 30ml ORAL PRN (16:15)
[2018-11-14] MEDS ORDERED: LORazepam Inj 2mg/ml 1ml IV PRN (16:15)
[2018-11-14] MEDS ORDERED: Miralax 17gm pkt ORAL PRN (16:15)
[2018-11-14] MEDS ORDERED: Dextrose 50% 25ml Syringe IV PRN (16:30)
[2018-11-14 16:35] VITALS: BP 114/78
[2018-11-14] MEDS ORDERED: HYDROmorphone 4mg tab ORAL PRN (17:00)
[2018-11-14] MEDS: Hydroxyurea 500mg cap ORAL SCH (18:41)
[2018-11-14 20:00] VITALS: BP 102/74
[2018-11-14] MEDS: DiphenhydrAMINE 50mg/ml Inj IVP PRN (20:45)
[2018-11-14] MEDS: Heparin 5000 units/ml inj SUBQ SCH (21:47)
[2018-11-14] MEDS: Zolpidem 5mg tab ORAL PRN (23:41)
[2018-11-15] VITALS: BP 111/75
[2018-11-15] MEDS: DiphenhydrAMINE 50mg/ml Inj IVP PRN ×6 (01:12→22:41)
[2018-11-15 04:00] VITALS: BP 101/61
[2018-11-15 07:02] LABS: HEMATOCRIT 21.7 % (42.0-52.0); MEAN CORPUSCULAR VOLUME 93 FL (80-99); PLATELET COUNT 196 K/UL (150-450); RED BLOOD COUNT 2.33 M/UL (4.70-6.10)
[2018-11-15 07:45] LABS: ALANINE AMINOTRANSFERASE 79 U/L (12-78); ALBUMIN 3.2 G/DL (3.4-5.0); ALBUMIN/GLOBULIN RATIO 1.1 (1.0-2.7); ALKALINE PHOSPHATASE 216 U/L (46-116); ANION GAP 6 mmol/L (5-15); ASPARTATE AMINO TRANSFERASE 57 U/L (15-37); BILIRUBIN,TOTAL 0.6 MG/DL (0.2-1.0); BLOOD UREA NITROGEN 24 mg/dL (7-18); CALCIUM 9.5 MG/DL (8.5-10.1); CARBON DIOXIDE 30 MMOL/L (21-32); CHLORIDE 106 MMOL/L (98-107); CREATININE 0.8 MG/DL (0.55-1.30); LACTATE DEHYDROGENASE 297 U/L (81-234); POTASSIUM 4.6 MMOL/L (3.5-5.1); SODIUM 141 MMOL/L (136-145)
[2018-11-15 08:00] VITALS: BP 105/68
[2018-11-15] MEDS: Hydroxyurea 500mg cap ORAL SCH ×2 (08:51→17:07)
[2018-11-15] MEDS: Heparin 5000 units/ml inj SUBQ SCH ×2 (08:52→21:47)
--- NOTE | 2018-11-15 08:52 | General Progress Note ---
Assessment/Plan Assessment/Plan: (1) Intractable pain (2) Avascular necrosis of femur head, left (3) Sickle cell disease and crisis (4) Avascular necrosis of femur head, right Patient will be continued on methadone and Dilaudid as needed. Pt was d/w Dr. Perera and he concurred. Subjective Date patient seen: November 15, 2018 Time patient seen: 07:30 - am Allergies: Coded Allergies: PENTAMIDINE ISETHIONATE (Verified Allergy, Severe, palpitations, 08/27/17) AMPICILLIN (Verified Allergy, Unknown, hives, 01/05/18) Tolerated CEftriaxone 01/02/18 KETOROLAC (Verified Allergy, Unknown, 08/03/16) MORPHINE (Verified Allergy, Unknown, 08/03/16) PHENYTOIN (Verified Allergy, Unknown, 08/03/16) Subjective Constitutional: Reports: chills HEENT: Denies: blurred vision, double vision, ear discharge, ear pain, eye pain , mouth pain, mouth swelling, nose congestion, nose pain, tearing, throat pain, throat swelling Cardiovascular: Denies: chest pain, edema, irregular heart rate, lightheadedness, palpitations, syncope Respiratory: Denies: SOB at rest, SOB with excertion, cough, orthopnea, shortness of breath, sputum, stridor, wheezing Gastrointestinal/Abdominal: Denies: abdomen distended, abdominal pain, black stools, blood in stool, constipated, diarrhea, difficulty swallowing, nausea, poor appetite, poor fluid intake, rectal bleeding, tarry stools, vomiting Genitourinary: Denies: burning, discharge, flank pain, frequency, hematuria, incontinence, pain, urgency 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: Denies: anxiety, depressed, emotional problems, headache, numbness, paresthesia, pre-existing deficit, seizure, tingling, tremors, weakness Endocrine: Reports: other, Denies: excessive sweating, flushing, increased hunger, increased thirst, increased urine, intolerance to cold, intolerance to heat, unexplained weight gain, unexplained weight loss Hematologic/Lymphatic: Denies: anemia, easy bleeding, easy bruising Subjective Patient is a known patient from prior admission and has been admitted under the care of Dr. Mckenna, in bed no signs of pain continues to c/o pain through body. Started on Methadone 60mg Q6H and Dilaudid 2mg IV Q4H PRN as per floor framer. Pain has been tolerated on the current regimen. No new complaints at this time. Objective Last 24 Hour Vital Signs Date Time Temp Pulse Resp B/P (MAP) Pulse Ox O2 Delivery O2 Flow Rate FiO2 11/15/18 08:20 Nasal Cannula 6.0 11/15/18 04:00 98.4 84 20 101/61 (74) 100 11/15/18 04:00 95 11/15/18 00:00 98.5 98 20 111/75 (87) 96 11/15/18 00:00 88 11/14/18 21:00 Nasal Cannula 6.0 11/14/18 20:00 98.1 95 20 102/74 (83) 99 11/14/18 20:00 99 11/14/18 17:57 Room Air 6.0 11/14/18 16:43 98.2 97 17 114/78 100 Nasal Cannula 6.0 11/14/18 16:35 98.2 97 17 114/78 100 Nasal Cannula 6.0 11/14/18 15:54 98.2 11/14/18 14:39 106 11 Nasal Cannula 6.0 11/14/18 14:39 98.2 11 125/77 98 Room Air 11/14/18 14:35 98.2 106 11 125/77 98 Room Air Intake and Output 11/14/18 11/15/18 19:00 07:00 Intake Total 600 ml Output Total 1500 ml Balance -900 ml Intake Oral 600 ml Output Urine Total 1500 ml # Voids 2 Laboratory Tests 11/14/18 15:00: White Blood Count 15.7H, Red Blood Count 2.70L, Hemoglobin 8.0L, Hematocrit 25.2L, Mean Corpuscular Volume 93, Mean Corpuscular Hemoglobin 29.6, Mean Corpuscular Hemoglobin Concent 31.7L, Red Cell Distribution Width 17.2H, Platelet Count 241, Mean Platelet Volume 7.6, Neutrophils (%) (Auto) 49.7, Lymphocytes (%) (Auto) 31.8, Monocytes (%) (Auto) 4.5, Eosinophils (%) (Auto) 12.6H, Basophils (%) (Auto) 1.4, Reticulocyte Count 2.2H, Prothrombin Time 12.5H , Prothromb Time International Ratio 1.2H, Activated Partial Thromboplast Time 32, Urine Color Pale yellow, Urine Appearance Clear, Urine pH 5, Urine Specific [place] 1.010, Urine Protein 3+H, Urine Glucose (UA) Negative, Urine Ketones Negative, Urine Blood Negative, Urine Nitrite Negative, Urine Bilirubin Negative , Urine Urobilinogen Normal, Urine Leukocyte Esterase 1+H, Urine RBC 0-2H, Urine WBC 0-2, Urine Squamous Epithelial Cells None, Urine Bacteria Few, Sodium Level 141, Potassium Level 4.9, Chloride Level 105, Carbon Dioxide Level 32, Anion Gap 4L, Blood Urea Nitrogen 29H, Creatinine 0.8, Estimat Glomerular Filtration Rate > 60, Glucose Level 123H, Calcium Level 9.8, Total Bilirubin 0.9 , Aspartate Amino Transf (AST/SGOT) 77H, Alanine Aminotransferase (ALT/SGPT) 97H , Alkaline Phosphatase 235H, Lactate Dehydrogenase 372H, Total Creatine Kinase 17L, Creatine Kinase MB 1.5, Creatine Kinase MB Relative Index 8.8, Troponin I 0.004, Pro-B-Type Natriuretic Peptide 34, Total Protein 6.9, Albumin 3.7, Globulin 3.2, Albumin/Globulin Ratio 1.2 11/15/18 06:00: White Blood Count 18.0H, Red Blood Count 2.33L, Hemoglobin 7.0L, Hematocrit 21.7L, Mean Corpuscular Volume 93, Mean Corpuscular Hemoglobin 30.1, Mean Corpuscular Hemoglobin Concent 32.3, Red Cell Distribution Width 17.0H, Platelet Count 196, Mean Platelet Volume 7.2, Neutrophils (%) (Auto) , Lymphocytes (%) (Auto) , Monocytes (%) (Auto) , Eosinophils (%) (Auto) , Basophils (%) (Auto) , Sodium Level 141, Potassium Level 4.6, Chloride Level 106 , Carbon Dioxide Level 30, Anion Gap 6, Blood Urea Nitrogen 24H, Creatinine 0.8 , Estimat Glomerular Filtration Rate > 60, Glucose Level 116H, Calcium Level 9.5 , Total Bilirubin 0.6, Aspartate Amino Transf (AST/SGOT) 57H, Alanine Aminotransferase (ALT/SGPT) 79H, Alkaline Phosphatase 216H, Lactate Dehydrogenase 297H, Total Protein 6.2L, Albumin 3.2L, Globulin 3.0, Albumin/ Globulin Ratio 1.1, Neutrophils % (Manual) [Pending], Lymphocytes % (Manual) [ Pending], Platelet Estimate [Pending], Platelet Morphology [Pending] Height (Feet): 5 Height (Inches): 11.00 Weight (Pounds): 140 Objective General Appearance: no apparent distress, alert EENT: PERRL/EOMI, normal ENT inspection Neck: non-tender, normal alignment Cardiovascular: normal rate, regular rhythm Respiratory/Chest: decreased breath sounds Abdomen: non tender, soft Extremities: non-tender Edema: no edema noted Arm (L), no edema noted Arm (R), no edema noted Leg (L), no edema noted Leg (R), no edema noted Pedal (L), no edema noted Pedal (R), no edema noted Generalized Neurologic: alert, oriented x 3 Skin: warm/dry Cj Anderson November 15, 2018 08:52
--- NOTE | 2018-11-15 10:54 | History and Physical ---
History of Present Illness General Date patient seen: November 15, 2018 Reason for Hospitalization: General Complaint Present Illness HPI 42 year old male with history of sickle cell disease, seizures, DVT bilateral lower extremity ,COPD/asthma, recent cholecystectomy, hypertension, diastolic CHF, severe pulmonary HTN, anemia, presented to Er with generalized body pain and dyspnea. Patient is chronically oxygen dependent at home. He also had an episode of seizure which he contributed to hot weather. Patient was admitted for further management with diagnosis of sickle cell crisis Allergies: Coded Allergies: PENTAMIDINE ISETHIONATE (Verified Allergy, Severe, palpitations, 08/27/17) AMPICILLIN (Verified Allergy, Unknown, hives, 01/05/18) Tolerated CEftriaxone 01/02/18 KETOROLAC (Verified Allergy, Unknown, 08/03/16) MORPHINE (Verified Allergy, Unknown, 08/03/16) PHENYTOIN (Verified Allergy, Unknown, 08/03/16) Medication History Scheduled Folic Acid* (Folic Acid*), 1 MG ORAL DAILY Hydromorphone HCl (Dilaudid), 14 MG ORAL EVERY 4 HOURS, (Reported) Hydroxyurea* (Hydrea*), 500 MG PO BID Lacosamide (Vimpat), 100 MG PO BID, (Reported) Methadone Hcl* (Methadone*), 60 MG PO Q6HR, (Reported) Scheduled PRN Diphenhydramine HCl (Benadryl), 50 MG PO Q4HR PRN for Itching, (Reported) Patient History Healthcare decision maker Resuscitation status Full Code Advanced Directive on File Past Medical/Surgical History Past Medical/Surgical History: (1) Protein-calorie malnutrition, severe (2) Chronic pain (3) Avascular necrosis of femur head, right (4) Avascular necrosis of femur head, left (5) Sickle cell disease (6) Seizure disorder (7) Interstitial lung disease (8) Pulmonary HTN (9) severe diastolic heart disease Family History Family History: Patient reports no known family medical history. Review of Systems All Other Systems: negative except mentioned in HPI Physical Exam General Appearance: cachetic Lines, tubes and drains: peripheral HEENT: normocephalic, atraumatic Neck: non-tender, normal alignment, supple Respiratory/Chest: chest wall non-tender, normal breath sounds Breasts: no masses Cardiovascular/Chest: normal peripheral pulses Abdomen: normal bowel sounds Genitourinary/Rectal: normal genital exam Last 24 Hour Vital Signs Date Time Temp Pulse Resp B/P (MAP) Pulse Ox O2 Delivery O2 Flow Rate FiO2 11/15/18 08:20 Nasal Cannula 6.0 11/15/18 08:00 97.5 85 22 105/68 (80) 100 11/15/18 04:00 98.4 84 20 101/61 (74) 100 11/15/18 04:00 95 11/15/18 00:00 98.5 98 20 111/75 (87) 96 11/15/18 00:00 88 11/14/18 21:00 Nasal Cannula 6.0 11/14/18 20:00 98.1 95 20 102/74 (83) 99 11/14/18 20:00 99 11/14/18 17:57 Room Air 6.0 11/14/18 16:43 98.2 97 17 114/78 100 Nasal Cannula 6.0 11/14/18 16:35 98.2 97 17 114/78 100 Nasal Cannula 6.0 11/14/18 15:54 98.2 11/14/18 14:39 106 11 Nasal Cannula 6.0 11/14/18 14:39 98.2 11 125/77 98 Room Air 11/14/18 14:35 98.2 106 11 125/77 98 Room Air Intake and Output 11/14/18 11/15/18 19:00 07:00 Intake Total 600 ml Output Total 1500 ml Balance -900 ml Intake Oral 600 ml Output Urine Total 1500 ml # Voids 2 Laboratory Tests Test 11/14/18 15:00 11/15/18 06:00 White Blood Count 15.7 K/UL (4.8-10.8) H 18.0 K/UL (4.8-10.8) H Red Blood Count 2.70 M/UL (4.70-6.10) L 2.33 M/UL (4.70-6.10) L Hemoglobin 8.0 G/DL (14.2-18.0) L 7.0 G/DL (14.2-18.0) L Hematocrit 25.2 % (42.0-52.0) L 21.7 % (42.0-52.0) L Mean Corpuscular Volume 93 FL (80-99) 93 FL (80-99) Mean Corpuscular Hemoglobin 29.6 PG (27.0-31.0) 30.1 PG (27.0-31.0) Mean Corpuscular Hemoglobin Concent 31.7 G/DL (32.0-36.0) L 32.3 G/DL (32.0-36.0) Red Cell Distribution Width 17.2 % (11.6-14.8) H 17.0 % (11.6-14.8) H Platelet Count 241 K/UL (150-450) 196 K/UL (150-450) Mean Platelet Volume 7.6 FL (6.5-10.1) 7.2 FL (6.5-10.1) Neutrophils (%) (Auto) 49.7 % (45.0-75.0) % (45.0-75.0) Lymphocytes (%) (Auto) 31.8 % (20.0-45.0) % (20.0-45.0) Monocytes (%) (Auto) 4.5 % (1.0-10.0) % (1.0-10.0) Eosinophils (%) (Auto) 12.6 % (0.0-3.0) H % (0.0-3.0) Basophils (%) (Auto) 1.4 % (0.0-2.0) % (0.0-2.0) Reticulocyte Count 2.2 % (0.0-2.0) H Prothrombin Time 12.5 SEC (9.30-11.50) H Prothromb Time International Ratio 1.2 (0.9-1.1) H Activated Partial Thromboplast Time 32 SEC (23-33) Urine Color Pale yellow Urine Appearance Clear Urine pH 5 (4.5-8.0) Urine Specific [place] 1.010 (1.005-1.035) Urine Protein 3+ (NEGATIVE) H Urine Glucose (UA) Negative (NEGATIVE) Urine Ketones Negative (NEGATIVE) Urine Blood Negative (NEGATIVE) Urine Nitrite Negative (NEGATIVE) Urine Bilirubin Negative (NEGATIVE) Urine Urobilinogen Normal MG/DL (0.0-1.0) Urine Leukocyte Esterase 1+ (NEGATIVE) H Urine RBC 0-2 /HPF (0 - 0) H Urine WBC 0-2 /HPF (0 - 0) Urine Squamous Epithelial Cells None /LPF (NONE/OCC) Urine Bacteria Few /HPF (NONE) Sodium Level 141 MMOL/L (136-145) 141 MMOL/L (136-145) Potassium Level 4.9 MMOL/L (3.5-5.1) 4.6 MMOL/L (3.5-5.1) Chloride Level 105 MMOL/L (98-107) 106 MMOL/L (98-107) Carbon Dioxide Level 32 MMOL/L (21-32) 30 MMOL/L (21-32) Anion Gap 4 mmol/L (5-15) L 6 mmol/L (5-15) Blood Urea Nitrogen 29 mg/dL (7-18) H 24 mg/dL (7-18) H Creatinine 0.8 MG/DL (0.55-1.30) 0.8 MG/DL (0.55-1.30) Estimat Glomerular Filtration Rate > 60 mL/min (>60) > 60 mL/min (>60) Glucose Level 123 MG/DL (74-106) H 116 MG/DL (74-106) H Calcium Level 9.8 MG/DL (8.5-10.1) 9.5 MG/DL (8.5-10.1) Total Bilirubin 0.9 MG/DL (0.2-1.0) 0.6 MG/DL (0.2-1.0) Aspartate Amino Transf (AST/SGOT) 77 U/L (15-37) H 57 U/L (15-37) H Alanine Aminotransferase (ALT/SGPT) 97 U/L (12-78) H 79 U/L (12-78) H Alkaline Phosphatase 235 U/L (46-116) H 216 U/L (46-116) H Lactate Dehydrogenase 372 U/L (81-234) H 297 U/L (81-234) H Total Creatine Kinase 17 U/L (26-308) L Creatine Kinase MB 1.5 NG/ML (0.0-3.6) Creatine Kinase MB Relative Index 8.8 Troponin I 0.004 ng/mL (0.000-0.056) Pro-B-Type Natriuretic Peptide 34 pg/mL (0-125) Total Protein 6.9 G/DL (6.4-8.2) 6.2 G/DL (6.4-8.2) L Albumin 3.7 G/DL (3.4-5.0) 3.2 G/DL (3.4-5.0) L Globulin 3.2 g/dL 3.0 g/dL Albumin/Globulin Ratio 1.2 (1.0-2.7) 1.1 (1.0-2.7) Neutrophils % (Manual) Pending Lymphocytes % (Manual) Pending Platelet Estimate Pending Platelet Morphology Pending Microbiology Date/Time Source Procedure Growth Status 11/14/18 14:45 Blood Blood Culture - Preliminary Gram Positive Cocci Resulted Height (Feet): 5 Height (Inches): 11.00 Weight (Pounds): 140 Medications Current Medications Medications (Trade) Dose Ordered Sig/Anthony Route PRN Reason Start Time Stop Time Status Last Admin Dose Admin Acetaminophen (Tylenol) 650 mg Q4H PRN ORAL fever 11/14/18 16:15 12/14/18 16:14 Al Hydroxide/Mg Hydroxide (Mylanta II) 30 ml Q6H PRN ORAL dyspepsia 11/14/18 16:15 12/14/18 16:14 Dextrose (Dextrose 50%) 25 ml Q30M PRN IV Hypoglycemia 11/14/18 16:30 12/14/18 16:16 Dextrose (Dextrose 50%) 50 ml Q30M PRN IV hypoglycemia 11/14/18 16:30 12/14/18 16:29 Diphenhydramine HCl (Benadryl) 50 mg Q4H PRN IVP Itching 11/14/18 20:30 12/14/18 20:29 11/15/18 10:15 Heparin Sodium (Porcine) (Heparin 5000 units/ml) 5,000 units EVERY 12 HOURS SUBQ 11/14/18 21:00 12/14/18 20:59 11/14/18 21:47 Hydromorphone HCl (Dilaudid) 2 mg Q4H PRN IV pain 4-10 11/15/18 08:54 11/22/18 08:53 11/15/18 10:17 Hydroxyurea (Hydrea) 500 mg BID ORAL 11/14/18 18:00 11/19/18 17:59 11/15/18 08:51 Lorazepam (Ativan 2mg/ml 1ml) 0.5 mg Q4H PRN IV For Anxiety 11/14/18 16:15 11/21/18 16:14 Methadone HCl (Methadone HCl) 60 mg Q6HR ORAL 11/14/18 18:00 11/21/18 17:59 11/15/18 07:01 Ondansetron HCl (Zofran) 4 mg Q6H PRN IVP Nausea & Vomiting 11/14/18 16:15 12/14/18 16:14 Polyethylene Glycol (Miralax) 17 gm HSPRN PRN ORAL Constipation 11/14/18 16:15 12/14/18 16:14 Sodium Chloride 1,000 ml @ 75 mls/hr [id number] IV 11/14/18 16:13 12/14/18 16:12 11/15/18 05:50 Zolpidem Tartrate (Ambien) 5 mg HSPRN PRN ORAL Insomnia 11/14/18 16:15 11/21/18 16:14 11/14/18 23:41 Assessment/Plan Problem List: (1) Sickle cell crisis ICD Codes: D57.00 - Hb-SS disease with crisis, unspecified SNOMED: 937061836 (2) Uncontrolled seizures ICD Codes: R56.9 - Unspecified convulsions SNOMED: 70079070 (3) Intractable pain ICD Codes: R52 - Pain, unspecified SNOMED: 13621754 (4) Pulmonary HTN ICD Codes: I27.2 - Other secondary pulmonary hypertension SNOMED: 65029826 (5) Interstitial lung disease ICD Codes: J84.9 - Interstitial pulmonary disease, unspecified SNOMED: 25368327, 819939939 (6) Protein-calorie malnutrition, severe ICD Codes: E43 - Unspecified severe protein-calorie malnutrition SNOMED: 521228728, 658264730, 434411666 Diagnosis Orr I: pain management neuro evaluation prbc prn titrate fio2 to sat of 92% check electrolytes Hanna Mckenna MD November 15, 2018 10:54
--- NOTE | 2018-11-15 13:12 | Consultation ---
History of Present Illness General Chief Complaint: General Complaint Present Illness Allergies: Coded Allergies: PENTAMIDINE ISETHIONATE (Verified Allergy, Severe, palpitations, 08/27/17) AMPICILLIN (Verified Allergy, Unknown, hives, 01/05/18) Tolerated CEftriaxone 01/02/18 KETOROLAC (Verified Allergy, Unknown, 08/03/16) MORPHINE (Verified Allergy, Unknown, 08/03/16) PHENYTOIN (Verified Allergy, Unknown, 08/03/16) Medication History Scheduled Folic Acid* (Folic Acid*), 1 MG ORAL DAILY Hydromorphone HCl (Dilaudid), 14 MG ORAL EVERY 4 HOURS, (Reported) Hydroxyurea* (Hydrea*), 500 MG PO BID Lacosamide (Vimpat), 100 MG PO BID, (Reported) Methadone Hcl* (Methadone*), 60 MG PO Q6HR, (Reported) Scheduled PRN Diphenhydramine HCl (Benadryl), 50 MG PO Q4HR PRN for Itching, (Reported) Patient History Healthcare decision maker Resuscitation status Full Code Advanced Directive on File Physical Exam Last 24 Hour Vital Signs Date Time Temp Pulse Resp B/P (MAP) Pulse Ox O2 Delivery O2 Flow Rate FiO2 11/15/18 10:47 97.5 11/15/18 08:20 Nasal Cannula 6.0 11/15/18 08:00 97.5 85 22 105/68 (80) 100 11/15/18 07:33 85 11/15/18 04:00 98.4 84 20 101/61 (74) 100 11/15/18 04:00 95 11/15/18 00:00 98.5 98 20 111/75 (87) 96 11/15/18 00:00 88 11/14/18 21:00 Nasal Cannula 6.0 11/14/18 20:00 98.1 95 20 102/74 (83) 99 11/14/18 20:00 99 11/14/18 17:57 Room Air 6.0 11/14/18 16:43 98.2 97 17 114/78 100 Nasal Cannula 6.0 11/14/18 16:35 98.2 97 17 114/78 100 Nasal Cannula 6.0 11/14/18 15:54 98.2 11/14/18 14:39 106 11 Nasal Cannula 6.0 11/14/18 14:39 98.2 11 125/77 98 Room Air 11/14/18 14:35 98.2 106 11 125/77 98 Room Air Intake and Output 11/14/18 11/15/18 18:59 06:59 Intake Total 600 ml Output Total 1500 ml Balance -900 ml Intake Oral 600 ml Output Urine Total 1500 ml # Voids 2 Laboratory Tests Test 11/14/18 15:00 11/15/18 06:00 White Blood Count 15.7 K/UL (4.8-10.8) H 18.0 K/UL (4.8-10.8) H Red Blood Count 2.70 M/UL (4.70-6.10) L 2.33 M/UL (4.70-6.10) L Hemoglobin 8.0 G/DL (14.2-18.0) L 7.0 G/DL (14.2-18.0) L Hematocrit 25.2 % (42.0-52.0) L 21.7 % (42.0-52.0) L Mean Corpuscular Volume 93 FL (80-99) 93 FL (80-99) Mean Corpuscular Hemoglobin 29.6 PG (27.0-31.0) 30.1 PG (27.0-31.0) Mean Corpuscular Hemoglobin Concent 31.7 G/DL (32.0-36.0) L 32.3 G/DL (32.0-36.0) Red Cell Distribution Width 17.2 % (11.6-14.8) H 17.0 % (11.6-14.8) H Platelet Count 241 K/UL (150-450) 196 K/UL (150-450) Mean Platelet Volume 7.6 FL (6.5-10.1) 7.2 FL (6.5-10.1) Neutrophils (%) (Auto) 49.7 % (45.0-75.0) % (45.0-75.0) Lymphocytes (%) (Auto) 31.8 % (20.0-45.0) % (20.0-45.0) Monocytes (%) (Auto) 4.5 % (1.0-10.0) % (1.0-10.0) Eosinophils (%) (Auto) 12.6 % (0.0-3.0) H % (0.0-3.0) Basophils (%) (Auto) 1.4 % (0.0-2.0) % (0.0-2.0) Reticulocyte Count 2.2 % (0.0-2.0) H Prothrombin Time 12.5 SEC (9.30-11.50) H Prothromb Time International Ratio 1.2 (0.9-1.1) H Activated Partial Thromboplast Time 32 SEC (23-33) Urine Color Pale yellow Urine Appearance Clear Urine pH 5 (4.5-8.0) Urine Specific [place] 1.010 (1.005-1.035) Urine Protein 3+ (NEGATIVE) H Urine Glucose (UA) Negative (NEGATIVE) Urine Ketones Negative (NEGATIVE) Urine Blood Negative (NEGATIVE) Urine Nitrite Negative (NEGATIVE) Urine Bilirubin Negative (NEGATIVE) Urine Urobilinogen Normal MG/DL (0.0-1.0) Urine Leukocyte Esterase 1+ (NEGATIVE) H Urine RBC 0-2 /HPF (0 - 0) H Urine WBC 0-2 /HPF (0 - 0) Urine Squamous Epithelial Cells None /LPF (NONE/OCC) Urine Bacteria Few /HPF (NONE) Sodium Level 141 MMOL/L (136-145) 141 MMOL/L (136-145) Potassium Level 4.9 MMOL/L (3.5-5.1) 4.6 MMOL/L (3.5-5.1) Chloride Level 105 MMOL/L (98-107) 106 MMOL/L (98-107) Carbon Dioxide Level 32 MMOL/L (21-32) 30 MMOL/L (21-32) Anion Gap 4 mmol/L (5-15) L 6 mmol/L (5-15) Blood Urea Nitrogen 29 mg/dL (7-18) H 24 mg/dL (7-18) H Creatinine 0.8 MG/DL (0.55-1.30) 0.8 MG/DL (0.55-1.30) Estimat Glomerular Filtration Rate > 60 mL/min (>60) > 60 mL/min (>60) Glucose Level 123 MG/DL (74-106) H 116 MG/DL (74-106) H Calcium Level 9.8 MG/DL (8.5-10.1) 9.5 MG/DL (8.5-10.1) Total Bilirubin 0.9 MG/DL (0.2-1.0) 0.6 MG/DL (0.2-1.0) Aspartate Amino Transf (AST/SGOT) 77 U/L (15-37) H 57 U/L (15-37) H Alanine Aminotransferase (ALT/SGPT) 97 U/L (12-78) H 79 U/L (12-78) H Alkaline Phosphatase 235 U/L (46-116) H 216 U/L (46-116) H Lactate Dehydrogenase 372 U/L (81-234) H 297 U/L (81-234) H Total Creatine Kinase 17 U/L (26-308) L Creatine Kinase MB 1.5 NG/ML (0.0-3.6) Creatine Kinase MB Relative Index 8.8 Troponin I 0.004 ng/mL (0.000-0.056) Pro-B-Type Natriuretic Peptide 34 pg/mL (0-125) Total Protein 6.9 G/DL (6.4-8.2) 6.2 G/DL (6.4-8.2) L Albumin 3.7 G/DL (3.4-5.0) 3.2 G/DL (3.4-5.0) L Globulin 3.2 g/dL 3.0 g/dL Albumin/Globulin Ratio 1.2 (1.0-2.7) 1.1 (1.0-2.7) Differential Total Cells Counted 100 Neutrophils % (Manual) 51 % (45-75) Lymphocytes % (Manual) 25 % (20-45) Monocytes % (Manual) 5 % (1-10) Eosinophils % (Manual) 18 % (0-3) H Basophils % (Manual) 0 % (0-2) Myelocytes % 1 % (0-0) H Band Neutrophils 0 % (0-8) Platelet Estimate Adequate Platelet Morphology See comment Giant Platelets Rare Anisocytosis 1+ Microbiology Date/Time Source Procedure Growth Status 11/14/18 14:45 Blood Blood Culture - Preliminary Gram Positive Cocci Resulted Height (Feet): 5 Height (Inches): 11.00 Weight (Pounds): 140 Medications Current Medications Medications (Trade) Dose Ordered Sig/Anthony Route PRN Reason Start Time Stop Time Status Last Admin Dose Admin Acetaminophen (Tylenol) 650 mg Q4H PRN ORAL fever 11/14/18 16:15 12/14/18 16:14 Al Hydroxide/Mg Hydroxide (Mylanta II) 30 ml Q6H PRN ORAL dyspepsia 11/14/18 16:15 12/14/18 16:14 Dextrose (Dextrose 50%) 25 ml Q30M PRN IV Hypoglycemia 11/14/18 16:30 12/14/18 16:16 Dextrose (Dextrose 50%) 50 ml Q30M PRN IV hypoglycemia 11/14/18 16:30 12/14/18 16:29 Diphenhydramine HCl (Benadryl) 50 mg Q4H PRN IVP Itching 11/14/18 20:30 12/14/18 20:29 11/15/18 10:15 Heparin Sodium (Porcine) (Heparin 5000 units/ml) 5,000 units EVERY 12 HOURS SUBQ 11/14/18 21:00 12/14/18 20:59 11/14/18 21:47 Hydromorphone HCl (Dilaudid) 2 mg Q4H PRN IV pain 4-10 11/15/18 08:54 11/22/18 08:53 11/15/18 10:17 Hydroxyurea (Hydrea) 500 mg BID ORAL 11/14/18 18:00 11/19/18 17:59 11/15/18 08:51 Lorazepam (Ativan 2mg/ml 1ml) 0.5 mg Q4H PRN IV For Anxiety 11/14/18 16:15 11/21/18 16:14 Methadone HCl (Methadone HCl) 60 mg Q6HR ORAL 11/14/18 18:00 11/21/18 17:59 11/15/18 12:14 Ondansetron HCl (Zofran) 4 mg Q6H PRN IVP Nausea & Vomiting 11/14/18 16:15 12/14/18 16:14 Polyethylene Glycol (Miralax) 17 gm HSPRN PRN ORAL Constipation 11/14/18 16:15 12/14/18 16:14 Sodium Chloride 1,000 ml @ 75 mls/hr [id number] IV 11/14/18 16:13 12/14/18 16:12 11/15/18 05:50 Zolpidem Tartrate (Ambien) 5 mg HSPRN PRN ORAL Insomnia 11/14/18 16:15 11/21/18 16:14 11/14/18 23:41 Assessment/Plan Assessment/Plan: Hematology/Oncology Consultation Requesting MD: Griffin Mckenna Date of Service: 11/15/18 Reason for consultation: Anemia and Leukocytosis, Sickle cell disease HISTORY OF PRESENT ILLNESS: 42y old male I know well, with a history of sickle cell anemia. The patient was last admitted to [facility] in June of 2018, 08/2018, and 2018 I last saw him at that time. Please see history and physical and discharge summary dictated at that time. The patient now complains of back pain that radiates to the chest. The patient presented to [facility] emergency room. The patient is admitted with chest pain and cough to rule out pneumonia. Hematology/Oncology was consulted for Anemia and Leukocytosis. PAST MEDICAL HISTORY: Sickle cell disease, History of seizure disorder, Avascular necrosis of the bilateral hips, Avascular necrosis of bilateral knees. PAST SURGICAL HISTORY: Tonsillectomy and adenoidectomy, Left tibia fibula fracture, Open reduction and internal fixation of left tibia fibula fracture, Pneumothorax. CURRENT MEDICATIONS:,Tylenol 650 mg p.o. daily, Benadryl 25 mg 2 tablets p.o. q.4 hours p.r.n, Folic acid 1 mg p.o. daily, Gabapentin 300 mg p.o. 3 times daily, Dilaudid 4 mg 3 tablets p.o. q.4 hours, Hydroxyurea 500 mg p.o. twice daily, Vimpat 100 mg p.o. twice bin, Methadone 60 mg p.o. q.6 hours. ALLERGIES: Ampicillin, Ketoralac, Morphine, Pentamidine, Phenytoin. SOCIAL HISTORY: The patient lives with his girlfriend and children. The patient is disabled. The patient denies tobacco or alcohol use. PHYSICAL EXAMINATION: VITAL SIGNS: have been reviewed GENERAL: The patient is a well-developed and well nourished male, in no apparent distress. HEENT: Eyes, pupils are equal and responsive to light and accommodation. Extraocular movements are intact. NECK: Supple without lymphadenopathy. CHEST: Decreased crackles in bilateral bases. Otherwise, clear to auscultation without wheezes or rales. CARDIOVASCULAR: Regular rhythm and rate ABDOMEN: Soft, nontender, and nondistended. Positive bowel sounds. No evidence of hepatosplenomegaly. Currently, no rebound or guarding noted EXTREMITIES: Negative for clubbing, cyanosis, or edema. RECTAL/GENITAL: Refused. NEUROLOGIC: Cranial nerves II through XII are grossly intact without focal deficits. Motor strength is 5/5 bilaterally. Deep tendon reflexes are 2+ plantar. ROS: Constitutional: No fever, no chills, no night sweats, no fatigue Skin: No rashes, lumps, itchiness, dryness HEENT: No LERMA, ear ache, visual changes, double vision, nosebleeds, sore throat, lumps, swollen glands Breasts: No lumps, pain, discharge Pulmonary: No cough, sputum, shortness of breath, coughing up blood, hemoptysis Cardiovascular: No chest pain, tightness, palpitations, syncope, claudication, orthopnea, PND GI: No nausea, vomiting, diarrhea, melena, hematochezia, change in appetite, abdominal pain : No dysuria, frequency, urgency, urinary incontinence, foamy urine Musculoskeletal: No joint swelling or muscle pain, trauma, back pain Neurologic: No dizziness, fainting, seizures, changes in smell or taste Psychiatric: No nervousness, stress, or depression, anxiety, hallucinations Endocrine: No weight change, heat or cold intolerance LABORATORY STUDIES: noted above ASSESSMENT/Recs # Sickl cell disease with crisis presentation with total body pain as well as cp --> IVF, benadryl, dilaudid --> No evidence of hemolysis is noted, peripheral smear has been reviewed. --> Hgb goal >7. Transfuse prn. --> Epogen or iron at this time is not particularly indicated --> Medications have been reviewed # Leukocytosis. Likely related to underlying infection versus reactive process --> have reviewed peripheral smear and bandemia/neutrophilia noted --> continue antibiotics if they have been started by ID team --> monitor for resolution # DVT of the bilateral lower ext --> hold off on anticoagulation at this time # History of seizure disorder, continue gabapentin as above. # Pulmonary hypertension. 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 Greatly appreciate consultation! Marco Dutton MD November 15, 2018 13:12
[2018-11-15 16:00] VITALS: BP 107/64
[2018-11-15] MEDS ORDERED: Vancomycin 1.25gm Premix IVPB SCH (17:00)
--- NOTE | 2018-11-15 17:18 | Consultation ---
Consult Note Consult Note # [id number] A: Bacteremia Leukocytosis sickle cell anemia seizure disorder b/l DVT avascular necrosis b/l hips s/p tonsillectomy L tibia/fibula fx s/p ORIF pneumothorax COPD/asthma on home O2 HTN CHF severe pHTN Plan: cont IV Vanco d# 1 Piyush Duran MD November 15, 2018 17:18
--- NOTE | 2018-11-15 17:44 | Cardiology Report ---
APPROVED REPORT EKG Measurement Heart [id number] ID [id number] Sinus tachycardia Minimal voltage criteria for LVH, may be normal variant T wave abnormality, consider anterior ischemia Abnormal ECG
[2018-11-15 20:00] VITALS: BP 109/69
--- NOTE | 2018-11-15 23:30 | Consultation ---
History of Present Illness General Chief Complaint: General Complaint Reason for Consultation: Dr. Mckenna Present Illness HPI Yevgeniy Barrett is a trans 42 year old male with history of sickle cell disease, seizures, DVT bilateral lower extremity ,COPD/asthma, recent cholecystectomy, hypertension, diastolic CHF, severe pulmonary HTN, anemia, presented to ER with seizure, generalized body pain and dyspnea. The patient is chronically oxygen dependent at home. At time of exam, patient is sitting up in bed and fully oriented and intact. Denies any complaints at this time. Allergies: Coded Allergies: PENTAMIDINE ISETHIONATE (Verified Allergy, Severe, palpitations, 08/27/17) AMPICILLIN (Verified Allergy, Unknown, hives, 01/05/18) Tolerated CEftriaxone 01/02/18 KETOROLAC (Verified Allergy, Unknown, 08/03/16) MORPHINE (Verified Allergy, Unknown, 08/03/16) PHENYTOIN (Verified Allergy, Unknown, 08/03/16) Medication History Scheduled Folic Acid* (Folic Acid*), 1 MG ORAL DAILY Hydromorphone HCl (Dilaudid), 14 MG ORAL EVERY 4 HOURS, (Reported) Hydroxyurea* (Hydrea*), 500 MG PO BID Lacosamide (Vimpat), 100 MG PO BID, (Reported) Methadone Hcl* (Methadone*), 60 MG PO Q6HR, (Reported) Scheduled PRN Diphenhydramine HCl (Benadryl), 50 MG PO Q4HR PRN for Itching, (Reported) Patient History Healthcare decision maker Resuscitation status Full Code Advanced Directive on File Review of Systems Constitutional: Denies: no symptoms, see HPI, chills, sweats, fever, malaise, weakness, other Eye: Denies: no symptoms, see HPI, eye pain, blurred vision, tearing, double vision, nose pain, nose congestion, acuity changes, discharge, other ENT: Denies: no symptoms, see HPI, ear pain, ear discharge, nose pain, nose congestion, throat pain, throat swelling, mouth pain, hearing loss, nasal discharge, other Respiratory: Denies: no symptoms, see HPI, cough, orthopnea, shortness of breath, stridor, wheezing, ATKINSON, sputum, other Cardiovascular: Denies: no symptoms, see HPI, chest pain, edema, palpitations, syncope, PND, other Gastrointestinal: Denies: no symptoms, see HPI, abdominal pain, constipation, diarrhea, nausea, vomiting, melena, hematemesis, other Genitourinary: Denies: no symptoms, see HPI, discharge, dysuria, frequency, hematuria, pain, retention, incontinence, urgency, vag bleed/dc, other Musculoskeletal: Denies: no symptoms, see HPI, back pain, gout, joint pain, joint swelling, muscle pain, muscle stiffness, other Skin: Denies: no symptoms, see HPI, rash, change in color, change in hair/nails , dryness, lesions, other Psychiatric: Denies: no symptoms, see HPI, prior hx, anxiety, depressed feelings, emotional problems, SI, HI, hallucinations, other Neurological: Denies: no symptoms, see HPI, headache, numbness, paresthesia, seizure, tingling, tremors, focal weakness, syncope, dizziness, other Endocrine: Denies: no symptoms, see HPI, excessive sweating, flushing, intolerance to temperature, increased thirst, increased urine, unexplained weight loss, other Physical Exam General Appearance: WD/WN, no apparent distress, alert Lines, tubes and drains: peripheral HEENT: normocephalic, atraumatic, anicteric, mucous membranes moist, PERRL Neck: normal alignment, supple, normal inspection Respiratory/Chest: normal breath sounds, no respiratory distress, no accessory muscle use Cardiovascular/Chest: normal rate, regular rhythm Skin Exam: normal pigmentation, warm/dry Neurologic: 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 admin 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, no motor/sensory deficits, alert, oriented x 3, responsive, normal mood/affect Musculoskeletal: normal muscle bulk, no effusion Last 24 Hour Vital Signs Date Time Temp Pulse Resp B/P (MAP) Pulse Ox O2 Delivery O2 Flow Rate FiO2 11/15/18 20:00 98.1 85 20 109/69 (82) 97 11/15/18 19:06 98.2 11/15/18 16:00 98.2 82 20 107/64 (78) 96 11/15/18 08:20 Nasal Cannula 6.0 11/15/18 08:00 97.5 85 22 105/68 (80) 100 11/15/18 07:33 85 11/15/18 04:00 98.4 84 20 101/61 (74) 100 11/15/18 04:00 95 11/15/18 00:00 98.5 98 20 111/75 (87) 96 11/15/18 00:00 88 Intake and Output 11/14/18 11/15/18 19:00 07:00 Intake Total 600 ml Output Total 1500 ml Balance -900 ml Intake Oral 600 ml Output Urine Total 1500 ml # Voids 2 Laboratory Tests Test 11/15/18 06:00 White Blood Count 18.0 K/UL (4.8-10.8) H Red Blood Count 2.33 M/UL (4.70-6.10) L Hemoglobin 7.0 G/DL (14.2-18.0) L Hematocrit 21.7 % (42.0-52.0) L Mean Corpuscular Volume 93 FL (80-99) Mean Corpuscular Hemoglobin 30.1 PG (27.0-31.0) Mean Corpuscular Hemoglobin Concent 32.3 G/DL (32.0-36.0) Red Cell Distribution Width 17.0 % (11.6-14.8) H Platelet Count 196 K/UL (150-450) Mean Platelet Volume 7.2 FL (6.5-10.1) Neutrophils (%) (Auto) % (45.0-75.0) Lymphocytes (%) (Auto) % (20.0-45.0) Monocytes (%) (Auto) % (1.0-10.0) Eosinophils (%) (Auto) % (0.0-3.0) Basophils (%) (Auto) % (0.0-2.0) Differential Total Cells Counted 100 Neutrophils % (Manual) 51 % (45-75) Lymphocytes % (Manual) 25 % (20-45) Monocytes % (Manual) 5 % (1-10) Eosinophils % (Manual) 18 % (0-3) H Basophils % (Manual) 0 % (0-2) Myelocytes % 1 % (0-0) H Band Neutrophils 0 % (0-8) Platelet Estimate Adequate Platelet Morphology See comment Giant Platelets Rare Anisocytosis 1+ Sodium Level 141 MMOL/L (136-145) Potassium Level 4.6 MMOL/L (3.5-5.1) Chloride Level 106 MMOL/L (98-107) Carbon Dioxide Level 30 MMOL/L (21-32) Anion Gap 6 mmol/L (5-15) Blood Urea Nitrogen 24 mg/dL (7-18) H Creatinine 0.8 MG/DL (0.55-1.30) Estimat Glomerular Filtration Rate > 60 mL/min (>60) Glucose Level 116 MG/DL (74-106) H Calcium Level 9.5 MG/DL (8.5-10.1) Total Bilirubin 0.6 MG/DL (0.2-1.0) Aspartate Amino Transf (AST/SGOT) 57 U/L (15-37) H Alanine Aminotransferase (ALT/SGPT) 79 U/L (12-78) H Alkaline Phosphatase 216 U/L (46-116) H Lactate Dehydrogenase 297 U/L (81-234) H Total Protein 6.2 G/DL (6.4-8.2) L Albumin 3.2 G/DL (3.4-5.0) L Globulin 3.0 g/dL Albumin/Globulin Ratio 1.1 (1.0-2.7) Height (Feet): 5 Height (Inches): 11.00 Weight (Pounds): 140 Medications Current Medications Medications (Trade) Dose Ordered Sig/Anthony Route PRN Reason Start Time Stop Time Status Last Admin Dose Admin Acetaminophen (Tylenol) 650 mg Q4H PRN ORAL fever 11/14/18 16:15 12/14/18 16:14 Al Hydroxide/Mg Hydroxide (Mylanta II) 30 ml Q6H PRN ORAL dyspepsia 11/14/18 16:15 12/14/18 16:14 Dextrose (Dextrose 50%) 25 ml Q30M PRN IV Hypoglycemia 11/14/18 16:30 12/14/18 16:16 Dextrose (Dextrose 50%) 50 ml Q30M PRN IV hypoglycemia 11/14/18 16:30 12/14/18 16:29 Diphenhydramine HCl (Benadryl) 50 mg Q4H PRN IVP Itching 11/14/18 20:30 12/14/18 20:29 11/15/18 22:41 Heparin Sodium (Porcine) (Heparin 5000 units/ml) 5,000 units EVERY 12 HOURS SUBQ 11/14/18 21:00 12/14/18 20:59 11/15/18 21:47 Hydromorphone HCl (Dilaudid) 2 mg Q4H PRN IV pain 4-10 11/15/18 08:54 11/22/18 08:53 11/15/18 22:41 Hydroxyurea (Hydrea) 500 mg BID ORAL 11/14/18 18:00 11/19/18 17:59 11/15/18 17:07 Lorazepam (Ativan 2mg/ml 1ml) 0.5 mg Q4H PRN IV For Anxiety 11/14/18 16:15 11/21/18 16:14 Methadone HCl (Methadone HCl) 60 mg Q6HR ORAL 11/14/18 18:00 11/21/18 17:59 11/15/18 17:07 Ondansetron HCl (Zofran) 4 mg Q6H PRN IVP Nausea & Vomiting 11/14/18 16:15 12/14/18 16:14 Polyethylene Glycol (Miralax) 17 gm HSPRN PRN ORAL Constipation 11/14/18 16:15 12/14/18 16:14 Sodium Chloride 1,000 ml @ 75 mls/hr [id number] IV 11/14/18 16:13 12/14/18 16:12 11/15/18 21:46 Vancomycin HCl (Vanco rx to dose) 1 ea DAILY PRN MISC Per rx protocol 11/15/18 16:00 12/15/18 15:59 Vancomycin HCl 750 mg/Sodium Chloride 275 ml @ 183.333 mls/hr Q8H IVPB 11/16/18 01:00 11/21/18 00:59 Zolpidem Tartrate (Ambien) 5 mg HSPRN PRN ORAL Insomnia 11/14/18 16:15 11/21/18 16:14 11/14/18 23:41 Assessment/Plan Problem List: (1) Chronic pain ICD Codes: G89.29 - Other chronic pain SNOMED: 26245762 (2) Sickle cell disease ICD Codes: D57.1 - Sickle-cell disease without crisis SNOMED: 347469886 (3) Seizure disorder Assessment & Plan: Patient attributes episode of seizure to dehydration and pain. No evidence of focal or general neurological deficit. Continue Lacosamide 100mg BID ICD Codes: G40.909 - Epilepsy, unspecified, not intractable, without status epilepticus SNOMED: 496801693 (4) Anemia ICD Codes: D64.9 - Anemia, unspecified SNOMED: 756770558 Status: stable, tolerating diet, ambulating well Assessment/Plan: Continue Q 4 Neuro OBs Stable at this time. Continued home AEDs No evidence of seizure at this time. Na 135-145 Manage Pain Sickle Cell Treatment as per Donna Gracia N.P. November 15, 2018 23:30
[2018-11-16] VITALS: BP 103/65
[2018-11-16] MEDS: Vancomycin 750mg/NS 275ml IVPB SCH ×4 (00:45→09:05)
--- NOTE | 2018-11-16 00:45 | Consultation ---
DATE OF CONSULTATION: 11/15/2018 INFECTIOUS DISEASE CONSULTATION CONSULTING PHYSICIAN: Piyush Duran M.D. REQUESTING PHYSICIAN: Hanna Mckenna M.D. REASON FOR CONSULTATION: Evaluation of the patient for bacteremia. HISTORY OF PRESENT ILLNESS: The patient is a 42-year-old male with multiple medical problems, as listed below, who was admitted to this medical center due to shortness of breath. The patient was admitted with impression of sickle cell crisis. The patient denies any cough, any sore throat, fever, or chills prior to admission. The patient was found to have leukocytosis and anemia, receiving blood transfusion. The patient's blood culture now 08/18 is growing gram-positive cocci. Infectious Disease consultation has been requested for further evaluation of the patient and antibiotic management. PAST MEDICAL HISTORY: 1. Sickle cell disease. 2. Seizure disorder. 3. Bilateral DVTs. 4. Avascular necrosis of the bilateral hips. 5. History of a tonsillectomy. 6. History of cholecystectomy. 7. History of left tibia and fibula fracture status post ORIF. 8. History of pneumothorax. 9. History of chronic obstructive pulmonary disease and asthma. 10. Hypertension. 11. CHF. 12. Pulmonary hypertension. MEDICATIONS: IV vancomycin. ALLERGIES: Ampicillin, morphine, and phenytoin. SOCIAL HISTORY: Negative for alcohol and drug abuse. FAMILY HISTORY: Not contributing. REVIEW OF SYSTEM: A 10-point review of systems was done and except what was mentioned above has been negative.HEENT: Mild pale conjunctivae. No icterus. NECK: No lymphadenopathy. CHEST: Coarse breath sounds. HEART: S1 and S2. ABDOMEN: Soft. EXTREMITY: No cyanosis or cellulitis. NEUROLOGIC: Awake. LABORATORY DATA: White blood cells 18, hemoglobin 7, and platelets 196,000. UA unremarkable. BUN 24 and creatinine 0.8. ALT, AST, and alkaline phosphatase mildly elevated 297. Blood culture 2/2 is growing gram-positive cocci in clusters. ASSESSMENT: 1. The patient is a 42-year-old male with positive blood culture, contamination versus [id number] infection. Also less likely, need evaluation of the patient for possible lower extremity hardware infection. 2. Afebrile. 3. Leukocytosis possibly due to sickle cell crisis. 4. Chronic transaminitis. PLAN: 1. Continue the patient on IV vancomycin. 2. Monitor CBC. 3. Monitor BMP. 4. Monitor cultures (repeat 2 more sets of blood culture). 5. one set from the periphery. 6. Hepatitis panel. 7. Ultrasound of the liver for evaluation of the gallbladder fossa (prior CT scan showed evidence of fluid in the gallbladder fossa. 8. Based on the patient's clinical course and labs, we will do further recommendations. Thank you, Dr. Mckenna, for allowing me to participate in the care of this patient. I will follow the patient with you during this hospitalization. Piyush Duran M.D. DR: FREDRICK JOB#: [id number] CC:
[2018-11-16] MEDS: Zolpidem 5mg tab ORAL PRN (00:57)
[2018-11-16] MEDS: DiphenhydrAMINE 50mg/ml Inj IVP PRN ×3 (02:50→10:58)
[2018-11-16 04:00] VITALS: BP 111/62
[2018-11-16 08:00] VITALS: BP 129/91
[2018-11-16] MEDS: Heparin 5000 units/ml inj SUBQ SCH (09:00)
[2018-11-16] MEDS: Hydroxyurea 500mg cap ORAL SCH (09:02)
--- NOTE | 2018-11-16 09:09 | General Progress Note ---
Assessment/Plan Assessment/Plan: (1) Intractable pain (2) Avascular necrosis of femur head, left (3) Sickle cell disease and crisis (4) Avascular necrosis of femur head, right Patient will be continued on methadone and Dilaudid. Pt was d/w Dr. Perera and he concurred. Subjective Date patient seen: November 16, 2018 Time patient seen: 07:30 - am Allergies: Coded Allergies: PENTAMIDINE ISETHIONATE (Verified Allergy, Severe, palpitations, 08/27/17) AMPICILLIN (Verified Allergy, Unknown, hives, 01/05/18) Tolerated CEftriaxone 01/02/18 KETOROLAC (Verified Allergy, Unknown, 08/03/16) MORPHINE (Verified Allergy, Unknown, 08/03/16) PHENYTOIN (Verified Allergy, Unknown, 08/03/16) Subjective Constitutional: Reports: chills HEENT: Denies: blurred vision, double vision, ear discharge, ear pain, eye pain , mouth pain, mouth swelling, nose congestion, nose pain, tearing, throat pain, throat swelling Cardiovascular: Denies: chest pain, edema, irregular heart rate, lightheadedness, palpitations, syncope Respiratory: Denies: SOB at rest, SOB with excertion, cough, orthopnea, shortness of breath, sputum, stridor, wheezing Gastrointestinal/Abdominal: Denies: abdomen distended, abdominal pain, black stools, blood in stool, constipated, diarrhea, difficulty swallowing, nausea, poor appetite, poor fluid intake, rectal bleeding, tarry stools, vomiting Genitourinary: Denies: burning, discharge, flank pain, frequency, hematuria, incontinence, pain, urgency 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: Denies: anxiety, depressed, emotional problems, headache, numbness, paresthesia, pre-existing deficit, seizure, tingling, tremors, weakness Endocrine: Reports: other, Denies: excessive sweating, flushing, increased hunger, increased thirst, increased urine, intolerance to cold, intolerance to heat, unexplained weight gain, unexplained weight loss Hematologic/Lymphatic: Denies: anemia, easy bleeding, easy bruising Subjective Patient is in bed and pain has been tolerated on the Methadone and Dilaudid. He has no new complaints at this time. Objective Last 24 Hour Vital Signs Date Time Temp Pulse Resp B/P (MAP) Pulse Ox O2 Delivery O2 Flow Rate FiO2 11/16/18 04:00 97.7 84 20 111/62 (78) 98 11/16/18 00:00 97.4 88 20 103/65 (78) 97 11/15/18 21:00 Nasal Cannula 6.0 11/15/18 20:00 98.1 85 20 109/69 (82) 97 11/15/18 19:06 98.2 11/15/18 16:00 98.2 82 20 107/64 (78) 96 Intake and Output 11/15/18 11/16/18 19:00 07:00 Intake Total 575 ml 1175 ml Output Total 300 ml Balance 275 ml 1175 ml Intake Oral 500 ml IV Total 75 ml 1175 ml Output Urine Total 300 ml # Voids 2 Laboratory Tests 11/16/18 07:27: Lactate Dehydrogenase 344H Height (Feet): 5 Height (Inches): 11.00 Weight (Pounds): 146 Objective General Appearance: no apparent distress, alert EENT: PERRL/EOMI, normal ENT inspection Neck: non-tender, normal alignment Cardiovascular: normal rate, regular rhythm Respiratory/Chest: decreased breath sounds Abdomen: non tender, soft Extremities: non-tender Edema: no edema noted Arm (L), no edema noted Arm (R), no edema noted Leg (L), no edema noted Leg (R), no edema noted Pedal (L), no edema noted Pedal (R), no edema noted Generalized Neurologic: alert, oriented x 3 Skin: warm/dry Cj Anderson November 16, 2018 09:09
--- NOTE | 2018-11-16 10:28 | Pulmonology Progress Note ---
Assessment/Plan Problems: (1) Sickle cell crisis (2) Uncontrolled seizures (3) Intractable pain (4) Pulmonary HTN (5) Interstitial lung disease (6) Protein-calorie malnutrition, severe Assessment/Plan improving no new complains wants to leave today f/u with PMD Subjective ROS Limited/Unobtainable: No Constitutional: Reports: no symptoms HEENT: Repors: no symptoms Respiratory: Reports: no symptoms Allergies: Coded Allergies: PENTAMIDINE ISETHIONATE (Verified Allergy, Severe, palpitations, 08/27/17) AMPICILLIN (Verified Allergy, Unknown, hives, 01/05/18) Tolerated CEftriaxone 01/02/18 KETOROLAC (Verified Allergy, Unknown, 08/03/16) MORPHINE (Verified Allergy, Unknown, 08/03/16) PHENYTOIN (Verified Allergy, Unknown, 08/03/16) Objective Last 24 Hour Vital Signs Date Time Temp Pulse Resp B/P (MAP) Pulse Ox O2 Delivery O2 Flow Rate FiO2 11/16/18 04:00 97.7 84 20 111/62 (78) 98 11/16/18 00:00 97.4 88 20 103/65 (78) 97 11/15/18 21:00 Nasal Cannula 6.0 11/15/18 20:00 98.1 85 20 109/69 (82) 97 11/15/18 19:06 98.2 11/15/18 16:00 98.2 82 20 107/64 (78) 96 Intake and Output 11/15/18 11/16/18 19:00 07:00 Intake Total 575 ml 1175 ml Output Total 300 ml Balance 275 ml 1175 ml Intake Oral 500 ml IV Total 75 ml 1175 ml Output Urine Total 300 ml # Voids 2 General Appearance: cachetic HEENT: normocephalic, atraumatic Respiratory/Chest: chest wall non-tender, lungs clear Cardiovascular: normal peripheral pulses, normal rate Abdomen: normal bowel sounds, soft, non tender, no organomegaly Genitourinary: normal external genitalia 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: 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 Microbiology Date/Time Source Procedure Growth Status 11/14/18 15:00 Blood Blood Culture - Preliminary Staphylococcus Sp Coag Neg Resulted 11/14/18 14:45 Blood Blood Culture - Preliminary Staphylococcus Sp Coag Neg Resulted Laboratory Tests 11/16/18 07:27: Lactate Dehydrogenase 344H Current Medications Medications (Trade) Dose Ordered Sig/Anthony Route PRN Reason Start Time Stop Time Status Last Admin Dose Admin Acetaminophen (Tylenol) 650 mg Q4H PRN ORAL fever 11/14/18 16:15 12/14/18 16:14 Al Hydroxide/Mg Hydroxide (Mylanta II) 30 ml Q6H PRN ORAL dyspepsia 11/14/18 16:15 12/14/18 16:14 Dextrose (Dextrose 50%) 25 ml Q30M PRN IV Hypoglycemia 11/14/18 16:30 12/14/18 16:16 Dextrose (Dextrose 50%) 50 ml Q30M PRN IV hypoglycemia 11/14/18 16:30 12/14/18 16:29 Diphenhydramine HCl (Benadryl) 50 mg Q4H PRN IVP Itching 11/14/18 20:30 12/14/18 20:29 11/16/18 06:46 Heparin Sodium (Porcine) (Heparin 5000 units/ml) 5,000 units EVERY 12 HOURS SUBQ 11/14/18 21:00 12/14/18 20:59 11/15/18 21:47 Hydromorphone HCl (Dilaudid) 2 mg Q4H PRN IV pain 4-10 11/15/18 08:54 11/22/18 08:53 11/16/18 06:47 Hydroxyurea (Hydrea) 500 mg BID ORAL 11/14/18 18:00 11/19/18 17:59 11/16/18 09:02 Lorazepam (Ativan 2mg/ml 1ml) 0.5 mg Q4H PRN IV For Anxiety 11/14/18 16:15 11/21/18 16:14 Methadone HCl (Methadone HCl) 60 mg Q6HR ORAL 11/14/18 18:00 11/21/18 17:59 11/16/18 06:46 Ondansetron HCl (Zofran) 4 mg Q6H PRN IVP Nausea & Vomiting 11/14/18 16:15 12/14/18 16:14 Polyethylene Glycol (Miralax) 17 gm HSPRN PRN ORAL Constipation 11/14/18 16:15 12/14/18 16:14 Sodium Chloride 1,000 ml @ 75 mls/hr [id number] IV 11/14/18 16:13 12/14/18 16:12 11/16/18 09:01 Vancomycin HCl (Vanco rx to dose) 1 ea DAILY PRN MISC Per rx protocol 11/15/18 16:00 12/15/18 15:59 Vancomycin HCl 750 mg/Sodium Chloride 275 ml @ 183.333 mls/hr Q8H IVPB 11/16/18 01:00 11/21/18 00:59 11/16/18 09:05 Zolpidem Tartrate (Ambien) 5 mg HSPRN PRN ORAL Insomnia 11/14/18 16:15 11/21/18 16:14 11/16/18 00:57 Hnana Mckenna MD November 16, 2018 10:28
[2018-11-16] MEDS ORDERED: 1/2 NS 1000ml IV ONE (11:14)
[2018-11-16] MEDS ORDERED: Heplock Flush 100 units/ml 3 ml syr INJ ONE (11:30)
--- NOTE | 2018-11-16 14:17 | General Progress Note ---
Assessment/Plan Assessment/Plan: ASSESSMENT/Recs # Sickl cell disease with crisis presentation with total body pain as well as cp --> IVF, benadryl, dilaudid --> No evidence of hemolysis is noted, peripheral smear has been reviewed. --> Hgb goal >7. Transfuse prn. --> Epogen or iron at this time is not particularly indicated --> Medications have been reviewed --> wants to be discharged TODAY # Leukocytosis. Likely related to underlying infection versus reactive process --> have reviewed peripheral smear and bandemia/neutrophilia noted --> continue antibiotics if they have been started by ID team --> monitor for resolution # DVT of the bilateral lower ext --> hold off on anticoagulation at this time # History of seizure disorder, continue gabapentin as above. # Pulmonary hypertension. 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 Greatly appreciate consultation! Subjective Constitutional: Denies: no symptoms, chills, diaphoresis, fever, malaise, weakness, other HEENT: Denies: no symptoms, eye pain, blurred vision, tearing, double vision, ear pain, ear discharge, nose pain, nose congestion, throat pain, throat swelling, mouth pain, mouth swelling, other Cardiovascular: Denies: no symptoms, chest pain, edema, irregular heart rate, lightheadedness, palpitations, syncope, other Genitourinary: Denies: no symptoms, burning, discharge, frequency, flank pain, hematuria, incontinence, pain, urgency, other 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: Denies: no symptoms, anxiety, depressed, emotional problems, headache, numbness, paresthesia, pre-existing deficit, seizure, tingling, tremors, weakness, other Endocrine: Denies: no symptoms, excessive sweating, flushing, intolerance to cold, intolerance to heat, increased hunger, increased thirst, increased urine, unexplained weight gain, unexplained weight loss, other Hematologic/Lymphatic: Denies: no symptoms, anemia, easy bleeding, easy bruising, other Allergies: Coded Allergies: PENTAMIDINE ISETHIONATE (Verified Allergy, Severe, palpitations, 08/27/17) AMPICILLIN (Verified Allergy, Unknown, hives, 01/05/18) Tolerated CEftriaxone 01/02/18 KETOROLAC (Verified Allergy, Unknown, 1/18/17) MORPHINE (Verified Allergy, Unknown, 08/03/16) PHENYTOIN (Verified Allergy, Unknown, 08/03/16) Subjective 11/16: no events noted, no f/c, wants to go home Objective Last 24 Hour Vital Signs Date Time Temp Pulse Resp B/P (MAP) Pulse Ox O2 Delivery O2 Flow Rate FiO2 11/16/18 04:00 97.7 84 20 111/62 (78) 98 11/16/18 00:00 97.4 88 20 103/65 (78) 97 11/15/18 21:00 Nasal Cannula 6.0 11/15/18 20:00 98.1 85 20 109/69 (82) 97 11/15/18 19:06 98.2 11/15/18 16:00 98.2 82 20 107/64 (78) 96 Intake and Output 11/15/18 11/16/18 19:00 07:00 Intake Total 575 ml 1175 ml Output Total 300 ml Balance 275 ml 1175 ml Intake Oral 500 ml IV Total 75 ml 1175 ml Output Urine Total 300 ml # Voids 2 Laboratory Tests 11/16/18 07:27: Lactate Dehydrogenase 344H Height (Feet): 5 Height (Inches): 11.00 Weight (Pounds): 146 Objective PHYSICAL EXAMINATION: VITAL SIGNS: have been reviewed GENERAL: The patient is a well-developed and well nourished HEENT: Eyes, pupils are equal and responsive to light Extraocular movements are intact. NECK: Supple without lymphadenopathy. CHEST: Decreased crackles in bilateral bases CARDIOVASCULAR: Regular rhythm and rate ABDOMEN: Soft, nontender, and nondistended. EXTREMITIES: Negative for clubbing, cyanosis, or edema. RECTAL/GENITAL: Refused. NEUROLOGIC: Cranial nerves II through XII deficits. Motor strength is 5/5 bilaterally. Marco Dutton MD November 16, 2018 14:17
--- NOTE | 2018-11-17 14:41 | Discharge Summary ---
Discharge Summary Discharge Summary _ DATE OF ADMISSION: 11/14/2018 DATE OF DISCHARGE: 11/16/2018 DISCHARGED BY: Dr. Mckenna REASON FOR ADMISSION: 42 years old male with past medical history of sickle cell disease, seizure disorder, DVT bilateral lower extremity, COPD/asthma, recent cholecystectomy, hypertension, diastolic congestive heart failure, severe pulmonary hypertension , sickle cell anemia, presented to emergency department with generalized body pain and dyspnea. Patient chronically oxygen dependent at home. Patient also reported episode of seizure , which he attributed to heat and dehydration. Upon evaluation in emergency department patient was slightly tachycardic , otherwise vital signs were stable. Laboratory work-up revealed leukocytosis with WBC 15.7; hemoglobin 8 ; stable electrolytes. LFT elevated . LDH 372. EKG revealed normal sinus rhythm , no acute ischemic changes . Chest x-ray revealed bilateral hazy opacities. Patient was started on empiric antibiotic , provided with analgesia , and started on the IV fluids. Supplemental oxygen provided. Patient was subsequently admitted for management of sickle cell crisis. CONSULTANTS: neurologist Dr. Neal ID specialist Dr. Duran lab animal technician/oncologist Dr. Dutton pain specialist Dr. Perera HOSPITAL COURSE: Patient admitted to telemetry floor. Patient started on the IV hydration. Supplemental oxygen provided as needed to keep pulse oximetry above 92%. Pulmonary toilet provided. Urinalysis was negative. Patient started on empiric antibiotics as per ID specialist recommendation. Blood culture revealed 1 out of 4 Staph coagulase negative and 1 out of 4 Staphylococci epidermidis. Per infectious disease specialist, blood culture where likely contaminant. Patient was on IV vancomycin while in the hospital. Patient was recommended to have follow-up blood culture drawn as outpatient. Hemoglobin and hematocrit were closely monitored with goal to keep hemoglobin above 7. Hydrea was continued Patient undergone transfusion of 1 units of packed red blood cells for hemoglobin 7. LDH with small trend down to 344 . Troponin was negative. Patient declined echocardiogram , and it was canceled. DVT prophylaxis provided. Urinalysis was negative. LFT were closely monitored, trending down. Patient declined abdominal ultrasound and hepatitis panel . Pain management was addressed as per pain specialist recommendation. Protein supplement provided for nutritional support. Seizure precaution maintained, no seizure activity while in the hospital. Vimpat continued. Bowel regimen instituted. Patient clinically stabilized and was ready for discharge home. Outpatient follow-up with lab animal technician in 1 week. 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 DISCHARGE INSTRUCTIONS: Patient was discharged home. Follow-up with lab animal technician in 1 week. I have been assigned to dictate discharge summary for this account. I was not involved in the patient's management. Mikayla Camara NP November 17, 2018 14:41
== END 2018-11-16 11:15 | disposition home or self-care (01) | DRG 662 ==
LOC: EMR 14:45 → EDBEDREQ 14:49 → 2E 15:11 → EDBEDREQ 15:34 → 2E 11-15 05:46
DX: D57.00 Hb-SS disease with crisis, unspecified (principal); E43 Unspecified severe protein-calorie malnutrition; J84.9 Interstitial pulmonary disease, unspecified; I27.20 Pulmonary hypertension, unspecified; M87.852 Other osteonecrosis, left femur; M87.851 Other osteonecrosis, right femur; R56.9 Unspecified convulsions; Z86.718 Personal history of other venous thrombosis and embolism; J44.9 Chronic obstructive pulmonary disease, unspecified; R74.0 Nonspecific elevation of levels of transaminase and lactic acid dehydrogenase [LDH]; M87.88 Other osteonecrosis, other site; Z88.6 Allergy status to analgesic agent; Z88.1 Allergy status to other antibiotic agents; Z88.8 Allergy status to other drugs, medicaments and biological substances; G89.29 Other chronic pain
CPT/HCPCS: 36415; 71045; 80053; 81003; 82550; 82553; 83615; 83880; 84484; 85007; 85025; 85044; 85610; 85730; 86850; 86900; 86901; 86920; 87040; 87181; 93005; 96361; 96374; 96375; 99285

== ENCOUNTER 2019-07-16 12:19 | Inpatient (IN) | payer MEDICARE, OTHER ==
[~2019-07-16] VITALS: Ht 180.3 cm; Wt 62.6 kg
[2019-07-16 12:30] VITALS: BP 117/71
--- NOTE | 2019-07-16 12:30 | NUR ---
ED Nurse Note: Patient arrived to ED complaining of sickle cell crisis and increased shortness of breath. He states that he has a hx of pulmonary hypertension and uses 6L of O2 at all times at home. Patient o2 sat is 94% on 6L NC. Patient complaining of 8/10 generalized body aches. 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 MD aware.
[2019-07-16] MEDS ORDERED: HYDROmorphone 2 MG, DiphenhydrAMINE 25 MG in NS 55 ML IV ONE (12:45)
[2019-07-16] MEDS ORDERED: DiphenhydrAMINE 50mg/ml Inj ONE (12:56)
--- NOTE | 2019-07-16 13:11 | Emergency Room Report ---
History of Present Illness General Chief Complaint: General Complaint Source: Patient Present Illness HPI Patient presents with complaints of diffuse body pain cough congestion reports that symptoms started several days ago Denies any vomiting however patient has nausea Denies any diarrhea complains of chest pain as well Especially with cough Feels that there might be a possible infection Denies any recent travel patient has history of sickle cell disease Allergies: Coded Allergies: PENTAMIDINE ISETHIONATE (Verified Allergy, Severe, palpitations, 08/27/17) AMPICILLIN (Verified Allergy, Unknown, hives, 01/05/18) Tolerated CEftriaxone 01/02/18 KETOROLAC (Verified Allergy, Unknown, 08/03/16) MORPHINE (Verified Allergy, Unknown, 08/03/16) PHENYTOIN (Verified Allergy, Unknown, 08/03/16) Patient History Past Medical History: see triage record Reviewed Nursing Documentation: PMH: Agreed; PSxH: Agreed Nursing Documentation-PMH Past Medical History: No History, Except For Hx Hypertension: Yes Hx Asthma: Yes Hx COPD: Yes Hx Cancer: No Hx Gastrointestinal Problems: Yes Hx Neurological Problems: Yes Hx Seizures: Yes Review of Systems All Other Systems: negative except mentioned in HPI Physical Exam Vital Signs Date Time Temp Pulse Resp B/P (MAP) Pulse Ox O2 Delivery O2 Flow Rate FiO2 07/16/19 12:23 100.2 94 28 117/71 (86) 100 Room Air Sp02 EP Interpretation: reviewed, normal General Appearance: no apparent distress Head: normocephalic, atraumatic Eyes: bilateral eye PERRL ENT: EOM grossly intact, normal pharynx Neck: supple Respiratory: no respiratory distress, no retraction, no accessory muscle use, crackles - Bilaterally Cardiovascular #1: regular rate, rhythm Gastrointestinal: non tender, soft Musculoskeletal: normal inspection Neurologic: alert Skin: no rash Lymphatic: no adenopathy Procedures Critical Care Time Critical Care Time 40 minutes for multiple re-evaluations critical findings concerning for cardiopulmonary arrest not including any procedural time Medical Decision Making Diagnostic Impression: Primary Impression: Sickle cell disease Additional Impression: Sickle cell crisis ER Course Patient is a fairly complex patient with multiple differential to consideration including but not limited to cardiac cardiopulmonary and vascular emergencies Patient's white blood cell count is elevated liver function test also abnormal Patient further hydrated pain medication provided I spoke to the patient's heme oncologist and patient will be admitted for further care Labs Test 07/16/19 13:00 White Blood Count 21.5 K/UL (4.8-10.8) Red Blood Count 2.71 M/UL (4.70-6.10) Hemoglobin 8.1 G/DL (14.2-18.0) Hematocrit 25.0 % (42.0-52.0) Mean Corpuscular Volume 93 FL (80-99) Mean Corpuscular Hemoglobin 29.9 PG (27.0-31.0) Mean Corpuscular Hemoglobin Concent 32.3 G/DL (32.0-36.0) Red Cell Distribution Width 16.3 % (11.6-14.8) Platelet Count 400 K/UL (150-450) Mean Platelet Volume 6.4 FL (6.5-10.1) Neutrophils (%) (Auto) % (45.0-75.0) Lymphocytes (%) (Auto) % (20.0-45.0) Monocytes (%) (Auto) % (1.0-10.0) Eosinophils (%) (Auto) % (0.0-3.0) Basophils (%) (Auto) % (0.0-2.0) Sodium Level 134 MMOL/L (136-145) Potassium Level 3.8 MMOL/L (3.5-5.1) Chloride Level 100 MMOL/L (98-107) Carbon Dioxide Level 29 MMOL/L (21-32) Anion Gap 5 mmol/L (5-15) Blood Urea Nitrogen 26 mg/dL (7-18) Creatinine 1.2 MG/DL (0.55-1.30) Estimat Glomerular Filtration Rate > 60 mL/min (>60) Glucose Level 135 MG/DL (74-106) Calcium Level 9.0 MG/DL (8.5-10.1) Total Bilirubin 1.0 MG/DL (0.2-1.0) Aspartate Amino Transf (AST/SGOT) 150 U/L (15-37) Alanine Aminotransferase (ALT/SGPT) 192 U/L (12-78) Alkaline Phosphatase 283 U/L (46-116) Total Creatine Kinase < 7 U/L (26-308) Troponin I 0.000 ng/mL (0.000-0.056) Pro-B-Type Natriuretic Peptide 60 pg/mL (0-125) Total Protein 7.1 G/DL (6.4-8.2) Albumin 3.6 G/DL (3.4-5.0) Globulin 3.5 g/dL Albumin/Globulin Ratio 1.0 (1.0-2.7) Lipase 36 U/L (73-393) Urine Opiates Screen Negative (NEGATIVE) Urine Barbiturates Screen Negative (NEGATIVE) Phencyclidine (PCP) Screen Negative (NEGATIVE) Urine Amphetamines Screen Negative (NEGATIVE) Urine Benzodiazepines Screen Negative (NEGATIVE) Urine Cocaine Screen Negative (NEGATIVE) Urine Marijuana (THC) Screen Negative (NEGATIVE) EKG Diagnostic Results Rate: normal Rhythm: NSR ST Segments: other - Specific ST and T wave changes Rhythm Strip Diag. Results EP Interpretation: yes Rate: 77 Rhythm: NSR, no PVC's, no ectopy Chest X-Ray Diagnostic Results Chest X-Ray Diagnostic Results : Chest X-Ray Ordered: Yes # of Views/Limited/Complete: 1 View Indication: Chest Pain EP Interpretation: Yes Interpretation: no consolidation, no pneumothorax, other - Patchy markings bilaterally question interstitial disease versus fluid versus pneumonia Impression: Other - Bilateral patchy markings similar to previous Electronically Signed by: Name Last Vital Signs Date Time Temp Pulse Resp B/P (MAP) Pulse Ox O2 Delivery O2 Flow Rate FiO2 07/16/19 12:23 100.2 94 28 117/71 (86) 100 Room Air Status: improved Disposition: ADMITTED INPATIENT Condition: Serious Referrals: NOT CHOSEN IPA/,REFERRING (PCP) Griffin Banda DO Jul 16, 2019 13:11
[2019-07-16 13:14] LABS: HEMOGLOBIN 8.1 G/DL (14.2-18.0); MEAN CORPUSCULAR VOLUME 93 FL (80-99); PLATELET COUNT 400 K/UL (150-450); RED BLOOD COUNT 2.71 M/UL (4.70-6.10); RED CELL DISTRIBUTION WIDTH 16.3 % (11.6-14.8); WHITE BLOOD COUNT 21.5 K/UL (4.8-10.8)
[2019-07-16 13:23] LABS: ANION GAP 5 mmol/L (5-15); BLOOD UREA NITROGEN 26 mg/dL (7-18); CARBON DIOXIDE 29 MMOL/L (21-32); CHLORIDE 100 MMOL/L (98-107); CREATININE 1.2 MG/DL (0.55-1.30); POTASSIUM 3.8 MMOL/L (3.5-5.1); SODIUM 134 MMOL/L (136-145)
[2019-07-16 13:34] LABS: ALANINE AMINOTRANSFERASE 192 U/L (12-78); ALBUMIN 3.6 G/DL (3.4-5.0); ALKALINE PHOSPHATASE 283 U/L (46-116); ASPARTATE AMINO TRANSFERASE 150 U/L (15-37); CREATINE KINASE < 7 U/L (26-308)
[2019-07-16 14:15] VITALS: BP 118/74
--- NOTE | 2019-07-16 14:45 | Diagnostic Imaging Report ---
Indication: Cough Technique: One view of the chest Comparison: 11/14/2018 Findings: Right chest port catheter is again demonstrated, although appears to have been exchanged in the interim. Bilateral diffuse interstitial and airspace disease is noted. This appears slightly more extensive than on the prior exam. There is a triangular area of dense consolidation or scarring in the left midlung periphery. Atelectatic changes are seen at the left lung base. Impression: Bilateral interstitial and airspace infiltrates versus edema. Correlate with clinical findings Other findings as noted
[2019-07-16 16:00] VITALS: BP 122/79
--- NOTE | 2019-07-16 16:00 | NUR ---
ED Nurse Note: Dr. Recinos emergency line called at [phone] to get admission orders.
[2019-07-16 16:17] LABS: APPEARANCE,URINE CLEAR; BILIRUBIN, URINE NEGATIVE (NEGATIVE); GLUCOSE, URINE (UA) NEGATIVE (NEGATIVE); KETONES,URINE NEGATIVE (NEGATIVE); LEUKOCYTE ESTERASE ,URINE NEGATIVE (NEGATIVE); NITRITE,URINE NEGATIVE (NEGATIVE); PH,URINE 5 (4.5-8.0); PROTEIN,URINE 2+ (NEGATIVE); UROBILINOGEN,URINE 1 MG/DL (0.0-1.0)
[2019-07-16 16:20] LABS: COLOR,URINE YELLOW
[2019-07-16 17:50] VITALS: BP 119/78
--- NOTE | 2019-07-16 17:51 | Consultation ---
History of Present Illness General Date patient seen: Jul 16, 2019 Chief Complaint: Present Illness Allergies: Coded Allergies: PENTAMIDINE ISETHIONATE (Verified Allergy, Severe, palpitations, 08/27/17) AMPICILLIN (Verified Allergy, Unknown, hives, 01/05/18) Tolerated CEftriaxone 01/02/18 KETOROLAC (Verified Allergy, Unknown, 08/03/16) MORPHINE (Verified Allergy, Unknown, 08/03/16) PHENYTOIN (Verified Allergy, Unknown, 08/03/16) Medication History Scheduled Folic Acid* (Folic Acid*), 1 MG ORAL DAILY Hydromorphone HCl (Dilaudid), 14 MG ORAL EVERY 4 HOURS, (Reported) Hydroxyurea* (HYDREA 500mg*), 500 MG PO BID Lacosamide (Vimpat), 100 MG PO BID, (Reported) Methadone Hcl* (Methadone*), 60 MG PO Q6HR, (Reported) Scheduled PRN Diphenhydramine HCl (Benadryl), 50 MG PO Q4HR PRN for Itching, (Reported) Patient History Healthcare decision maker Resuscitation status Advanced Directive on File Physical Exam Last 24 Hour Vital Signs Date Time Temp Pulse Resp B/P (MAP) Pulse Ox O2 Delivery O2 Flow Rate FiO2 07/16/19 13:32 100.2 07/16/19 12:30 100.2 94 28 117/71 100 Room Air 07/16/19 12:30 94 28 Room Air 07/16/19 12:23 100.2 94 28 117/71 (86) 100 Room Air Laboratory Tests Test 07/16/19 13:00 07/16/19 15:55 White Blood Count 21.5 K/UL (4.8-10.8) H Red Blood Count 2.71 M/UL (4.70-6.10) L Hemoglobin 8.1 G/DL (14.2-18.0) L Hematocrit 25.0 % (42.0-52.0) L Mean Corpuscular Volume 93 FL (80-99) Mean Corpuscular Hemoglobin 29.9 PG (27.0-31.0) Mean Corpuscular Hemoglobin Concent 32.3 G/DL (32.0-36.0) Red Cell Distribution Width 16.3 % (11.6-14.8) H Platelet Count 400 K/UL (150-450) Mean Platelet Volume 6.4 FL (6.5-10.1) L Neutrophils (%) (Auto) % (45.0-75.0) Lymphocytes (%) (Auto) % (20.0-45.0) Monocytes (%) (Auto) % (1.0-10.0) Eosinophils (%) (Auto) % (0.0-3.0) Basophils (%) (Auto) % (0.0-2.0) Differential Total Cells Counted 100 Neutrophils % (Manual) 83 % (45-75) H Lymphocytes % (Manual) 10 % (20-45) L Monocytes % (Manual) 2 % (1-10) Eosinophils % (Manual) 1 % (0-3) Basophils % (Manual) 0 % (0-2) Band Neutrophils 4 % (0-8) Platelet Estimate Adequate Platelet Morphology Giant Platelets 1+ Polychromasia 1+ Anisocytosis 1+ Reticulocyte Count 2.2 % (0.5-2.0) H Sodium Level 134 MMOL/L (136-145) L Potassium Level 3.8 MMOL/L (3.5-5.1) Chloride Level 100 MMOL/L (98-107) Carbon Dioxide Level 29 MMOL/L (21-32) Anion Gap 5 mmol/L (5-15) Blood Urea Nitrogen 26 mg/dL (7-18) H Creatinine 1.2 MG/DL (0.55-1.30) Estimat Glomerular Filtration Rate > 60 mL/min (>60) Glucose Level 135 MG/DL (74-106) H Calcium Level 9.0 MG/DL (8.5-10.1) Total Bilirubin 1.0 MG/DL (0.2-1.0) Aspartate Amino Transf (AST/SGOT) 150 U/L (15-37) H Alanine Aminotransferase (ALT/SGPT) 192 U/L (12-78) H Alkaline Phosphatase 283 U/L (46-116) H Total Creatine Kinase < 7 U/L (26-308) L Troponin I 0.000 ng/mL (0.000-0.056) Pro-B-Type Natriuretic Peptide 60 pg/mL (0-125) Total Protein 7.1 G/DL (6.4-8.2) Albumin 3.6 G/DL (3.4-5.0) Globulin 3.5 g/dL Albumin/Globulin Ratio 1.0 (1.0-2.7) Lipase 36 U/L (73-393) L Urine Opiates Screen Negative (NEGATIVE) Urine Barbiturates Screen Negative (NEGATIVE) Phencyclidine (PCP) Screen Negative (NEGATIVE) Urine Amphetamines Screen Negative (NEGATIVE) Urine Benzodiazepines Screen Negative (NEGATIVE) Urine Cocaine Screen Negative (NEGATIVE) Urine Marijuana (THC) Screen Negative (NEGATIVE) Urine Color Yellow Urine Appearance Clear Urine pH 5 (4.5-8.0) Urine Specific [place] 1.015 (1.005-1.035) Urine Protein 2+ (NEGATIVE) H Urine Glucose (UA) Negative (NEGATIVE) Urine Ketones Negative (NEGATIVE) Urine Blood Negative (NEGATIVE) Urine Nitrite Negative (NEGATIVE) Urine Bilirubin Negative (NEGATIVE) Urine Urobilinogen 1 MG/DL (0.0-1.0) H Urine Leukocyte Esterase Negative (NEGATIVE) Urine RBC 0-2 /HPF (0 - 0) H Urine WBC 0 /HPF (0 - 0) Urine Squamous Epithelial Cells None /LPF (NONE/OCC) Urine Bacteria Occasional /HPF (NONE) Height (Feet): 5 Height (Inches): 11.00 Weight (Pounds): 138 Assessment/Plan Assessment/Plan: (1) Intractable pain (2) Sickle cell disease and Crisis (3) B/L Femur head AVN Seen dictated Cj Anderson Jul 16, 2019 17:51
--- NOTE | 2019-07-16 19:15 | NUR ---
HAND-OFF: Report given to Radha VILLALOBOS.
--- NOTE | 2019-07-16 20:00 | NUR ---
TRANSFER TO FLOOR: Patient transferred to as ordered, per Dr Patricia. Report given to GRISELDA Dumont. Belongings and medications given to . Family and or S/O informed of transfer.
--- NOTE | 2019-07-16 20:32 | General Progress Note ---
Assessment/Plan Assessment/Plan: GI CONSULT Dictated Will evaluate for cause of abnormal LFT Thank you William Shaffer MD Subjective Allergies: Coded Allergies: PENTAMIDINE ISETHIONATE (Verified Allergy, Severe, palpitations, 08/27/17) AMPICILLIN (Verified Allergy, Unknown, hives, 01/05/18) Tolerated CEftriaxone 01/02/18 KETOROLAC (Verified Allergy, Unknown, 08/03/16) MORPHINE (Verified Allergy, Unknown, 08/03/16) PHENYTOIN (Verified Allergy, Unknown, 08/03/16) Objective Last 24 Hour Vital Signs Date Time Temp Pulse Resp B/P (MAP) Pulse Ox O2 Delivery O2 Flow Rate FiO2 07/16/19 13:32 100.2 07/16/19 12:30 100.2 94 28 117/71 100 Room Air 07/16/19 12:30 94 28 Room Air 07/16/19 12:23 100.2 94 28 117/71 (86) 100 Room Air Laboratory Tests 07/16/19 13:00: White Blood Count 21.5H, Red Blood Count 2.71L, Hemoglobin 8.1L, Hematocrit 25.0L, Mean Corpuscular Volume 93, Mean Corpuscular Hemoglobin 29.9, Mean Corpuscular Hemoglobin Concent 32.3, Red Cell Distribution Width 16.3H, Platelet Count 400, Mean Platelet Volume 6.4L, Neutrophils (%) (Auto) , Lymphocytes (%) (Auto) , Monocytes (%) (Auto) , Eosinophils (%) (Auto) , Basophils (%) (Auto) , Differential Total Cells Counted 100, Neutrophils % ( Manual) 83H, Lymphocytes % (Manual) 10L, Monocytes % (Manual) 2, Eosinophils % ( Manual) 1, Basophils % (Manual) 0, Band Neutrophils 4, Platelet Estimate Adequate, Platelet Morphology , Giant Platelets 1+, Polychromasia 1+, Anisocytosis 1+, Reticulocyte Count 2.2H, Sodium Level 134L, Potassium Level 3.8 , Chloride Level 100, Carbon Dioxide Level 29, Anion Gap 5, Blood Urea Nitrogen 26H, Creatinine 1.2, Estimat Glomerular Filtration Rate > 60, Glucose Level 135H , Calcium Level 9.0, Total Bilirubin 1.0, Aspartate Amino Transf (AST/SGOT) 150H , Alanine Aminotransferase (ALT/SGPT) 192H, Alkaline Phosphatase 283H, Total Creatine Kinase < 7L, Troponin I 0.000, Pro-B-Type Natriuretic Peptide 60, Total Protein 7.1, Albumin 3.6, Globulin 3.5, Albumin/Globulin Ratio 1.0, Lipase 36L, Urine Opiates Screen Negative, Urine Barbiturates Screen Negative, Phencyclidine (PCP) Screen Negative, Urine Amphetamines Screen Negative, Urine Benzodiazepines Screen Negative, Urine Cocaine Screen Negative, Urine Marijuana (THC) Screen Negative 07/16/19 15:55: Urine Color Yellow, Urine Appearance Clear, Urine pH 5, Urine Specific [place] 1.015, Urine Protein 2+H, Urine Glucose (UA) Negative, Urine Ketones Negative, Urine Blood Negative, Urine Nitrite Negative, Urine Bilirubin Negative, Urine Urobilinogen 1H, Urine Leukocyte Esterase Negative, Urine RBC 0-2H, Urine WBC 0 , Urine Squamous Epithelial Cells None, Urine Bacteria Occasional Height (Feet): 5 Height (Inches): 11.00 Weight (Pounds): 138 Charlotte Shaffer MD Jul 16, 2019 20:32
[2019-07-16 22:00] VITALS: BP 126/84
--- NOTE | 2019-07-16 22:00 | NUR ---
NURSE NOTES: Pt arrived via gurney from ER. Got report from Radha VILLALOBOS. Initial assessment done. Pt able to answer all of my questions and fully oriented. Pt states 9/10 generalized pain. No s/s of distress or discomfort noted. VS T:100 HR:96 R:20 BP:126/84 O2:98% on 2L nasal cannula. warehouse attendant placed on pt running Sinus Rhythm on the monitor. Belongings list verified. Pt says able to ambulate but weak. Pt is continent. No skin issues noted. Pt resting in bed comfortably. Bed in low and locked position, call light within reach, bedside table within reach. Continue to monitor. Orders given and placed by Dr. Recinos.
[2019-07-16] MEDS: DiphenhydrAMINE 50mg/ml Inj IVP PRN (23:40)
[2019-07-17] VITALS: BP 115/70
--- NOTE | 2019-07-17 03:30 | Consultation ---
DATE OF CONSULTATION: 07/16/2019 PAIN MANAGEMENT CONSULTATION CONSULTING PHYSICIAN: Oleg Perera M.D. REFERRING PHYSICIAN: Griffin Recinos M.D. PHYSICIAN FOREIGN LEGAL CONSULTANT: Marin Zambrano HISTORY OF PRESENT ILLNESS: The patient is a known patient from previous admissions and is now in the ER of [facility] for comprehensive pain management consultation. The patient was admitted due to sickle cell disease and crisis at this time and is in the ER, was given Dilaudid 2 mg IV, and is in bed. As per Dr. Recinos will be admitted. Once admitted, we will put in admitting orders for pain. We were consulted so that the patient would have adequate pain control while here in the hospital. REVIEW OF SYSTEMS: Denies rash, fever, chills, sweating, dizziness, drowsiness, blurred vision, sore throat, change of hearing or weight. No shortness of breath or chest pain. No nausea, vomiting, or blood in stool or urine. No dysuria. PHYSICAL EXAMINATION: GENERAL: Alert, awake, and oriented. VITAL SIGNS: Blood pressure 117/71, heart rate is 94, oxygen saturation is 100%, and respiratory rate is 28. LUNGS: Decreased breath sounds bilaterally. HEART: S1 and S2, regular. ABDOMEN: Soft, nontender. EXTREMITIES: No cyanosis. No clubbing. NEUROLOGICAL: No changes. ASSESSMENT AND PLAN: This is a 43-year-old male with intractable pain, sickle cell disease, sickle cell crisis, bilateral femur avascular necrosis. Patient will be continued on ER medications. Once admitted, we will reassess the patient to restart his methadone, which he takes 60 mg every 6 hours around the clock and any IV Dilaudid as needed, which is usually 2 mg IV every 4 hours as needed for severe pain. The patient was discussed with Dr. Perera and Dr. Perera concurred. We will follow the patient. Thank you very much for the courtesy of this consultation. Oleg Perera M.D. KATHLEEN Zambrano DR: LINDA JOB#: [id number] CC: LELAND
[2019-07-17] MEDS: DiphenhydrAMINE 50mg/ml Inj IVP PRN ×5 (03:44→20:34)
[2019-07-17 04:00] VITALS: BP 119/66
--- NOTE | 2019-07-17 07:19 | NUR ---
HAND-OFF: Report given to Min RN.
--- NOTE | 2019-07-17 07:20 | NUR ---
NURSE NOTES: Report received from Tim VILLALOBOS. Pt in bed awake and orientedx4. No c/o pain. Port A cath on right upper chest patent and flushing well. Bed in lowest position and locked. Side railx2 up for safety. Denied SOB. On 2LPM via N/C noted. Will continue to plan of care.
--- NOTE | 2019-07-17 07:43 | NUR ---
NURSE NOTES: Pt asks the RN to give the IV benadryl and IV dilaudid at the same time for pain. And the patient states that he got the both IV Dilaudid and IV Benadryl at the same time all night long. Jackeline, charge nurse notified and she said since the patient git the meds all night long with other nurses and and he has been stable, he can get the meds at the same time.
[2019-07-17 08:00] VITALS: BP 105/70
[2019-07-17] MEDS: Hydroxyurea 500mg cap ORAL SCH ×2 (09:08→17:30)
[2019-07-17] MEDS: Levofloxacin 750mg tab ORAL SCH (09:08)
[2019-07-17 09:59] LABS: HEMATOCRIT 21.9 % (42.0-52.0); HEMOGLOBIN 7.2 G/DL (14.2-18.0); MEAN CORPUSCULAR VOLUME 91 FL (80-99); PLATELET COUNT 358 K/UL (150-450); RED CELL DISTRIBUTION WIDTH 16.3 % (11.6-14.8)
[2019-07-17 10:46] LABS: ALANINE AMINOTRANSFERASE 142 U/L (12-78); ALBUMIN 3.1 G/DL (3.4-5.0); ALBUMIN/GLOBULIN RATIO 0.9 (1.0-2.7); ALKALINE PHOSPHATASE 256 U/L (46-116); ANION GAP 4 mmol/L (5-15); ASPARTATE AMINO TRANSFERASE 104 U/L (15-37); BILIRUBIN,TOTAL 0.9 MG/DL (0.2-1.0); BLOOD UREA NITROGEN 21 mg/dL (7-18); CALCIUM 8.5 MG/DL (8.5-10.1); CARBON DIOXIDE 28 MMOL/L (21-32); CHLORIDE 103 MMOL/L (98-107); CREATINE KINASE 7 U/L (26-308); CREATININE 1.1 MG/DL (0.55-1.30); POTASSIUM 4.2 MMOL/L (3.5-5.1); SODIUM 135 MMOL/L (136-145)
[2019-07-17 12:00] VITALS: BP 106/65
--- NOTE | 2019-07-17 12:46 | General Progress Note ---
Assessment/Plan Assessment/Plan: Assessment - Sickle cell crisis - leukocytosis - abnormal LFT Recommendations - IVF - Follow LFT - Await hepatitis serologies - am abdominal ultrasound Subjective Allergies: Coded Allergies: PENTAMIDINE ISETHIONATE (Verified Allergy, Severe, palpitations, 08/27/17) AMPICILLIN (Verified Allergy, Unknown, hives, 01/05/18) Tolerated CEftriaxone 01/02/18 KETOROLAC (Verified Allergy, Unknown, 08/03/16) MORPHINE (Verified Allergy, Unknown, 08/03/16) PHENYTOIN (Verified Allergy, Unknown, 08/03/16) Subjective Feels OK no abdominal complaints LFT lower Objective Last 24 Hour Vital Signs Date Time Temp Pulse Resp B/P (MAP) Pulse Ox O2 Delivery O2 Flow Rate FiO2 07/17/19 08:00 2.0 07/17/19 08:00 97.9 79 20 105/70 (82) 95 07/17/19 08:00 88 07/17/19 04:15 99.0 07/17/19 04:00 85 07/17/19 04:00 98.8 87 18 119/66 (83) 100 07/17/19 04:00 2.0 07/17/19 03:11 98 Nasal Cannula 5.0 40 07/17/19 01:51 Nasal Cannula 2.0 07/17/19 00:12 99.0 07/17/19 00:00 99.0 98 18 115/70 (85) 97 07/17/19 00:00 104 07/17/19 00:00 2.0 07/16/19 22:38 Nasal Cannula 2.0 07/16/19 22:00 100.0 96 20 126/84 (98) 98 07/16/19 21:00 98 07/16/19 20:00 100.2 94 28 117/71 100 Room Air 07/16/19 17:50 100.4 97 19 119/78 99 Nasal Cannula 6.0 07/16/19 16:00 100.4 97 23 122/79 100 Nasal Cannula 6.0 94 07/16/19 14:15 100.1 95 22 118/74 98 Nasal Cannula 6.0 07/16/19 13:32 100.2 Intake and Output 07/16/19 07/17/19 19:00 07:00 Intake Total 1000 ml Output Total 1000 ml Balance 1000 ml -1000 ml Intake Oral 0 ml IV Total 1000 ml Output Urine Total 1000 ml # Bowel Movements 4 Laboratory Tests 07/16/19 13:00: White Blood Count 21.5H, Red Blood Count 2.71L, Hemoglobin 8.1L, Hematocrit 25.0L, Mean Corpuscular Volume 93, Mean Corpuscular Hemoglobin 29.9, Mean Corpuscular Hemoglobin Concent 32.3, Red Cell Distribution Width 16.3H, Platelet Count 400, Mean Platelet Volume 6.4L, Neutrophils (%) (Auto) , Lymphocytes (%) (Auto) , Monocytes (%) (Auto) , Eosinophils (%) (Auto) , Basophils (%) (Auto) , Differential Total Cells Counted 100, Neutrophils % ( Manual) 83H, Lymphocytes % (Manual) 10L, Monocytes % (Manual) 2, Eosinophils % ( Manual) 1, Basophils % (Manual) 0, Band Neutrophils 4, Platelet Estimate Adequate, Platelet Morphology , Giant Platelets 1+, Polychromasia 1+, Anisocytosis 1+, Reticulocyte Count 2.2H, Sodium Level 134L, Potassium Level 3.8 , Chloride Level 100, Carbon Dioxide Level 29, Anion Gap 5, Blood Urea Nitrogen 26H, Creatinine 1.2, Estimat Glomerular Filtration Rate > 60, Glucose Level 135H , Calcium Level 9.0, Total Bilirubin 1.0, Aspartate Amino Transf (AST/SGOT) 150H , Alanine Aminotransferase (ALT/SGPT) 192H, Alkaline Phosphatase 283H, Total Creatine Kinase < 7L, Troponin I 0.000, Pro-B-Type Natriuretic Peptide 60, Total Protein 7.1, Albumin 3.6, Globulin 3.5, Albumin/Globulin Ratio 1.0, Lipase 36L, Urine Opiates Screen Negative, Urine Barbiturates Screen Negative, Phencyclidine (PCP) Screen Negative, Urine Amphetamines Screen Negative, Urine Benzodiazepines Screen Negative, Urine Cocaine Screen Negative, Urine Marijuana (THC) Screen Negative 07/16/19 15:55: Urine Color Yellow, Urine Appearance Clear, Urine pH 5, Urine Specific [place] 1.015, Urine Protein 2+H, Urine Glucose (UA) Negative, Urine Ketones Negative, Urine Blood Negative, Urine Nitrite Negative, Urine Bilirubin Negative, Urine Urobilinogen 1H, Urine Leukocyte Esterase Negative, Urine RBC 0-2H, Urine WBC 0 , Urine Squamous Epithelial Cells None, Urine Bacteria Occasional 07/17/19 08:45: White Blood Count 18.0H, Red Blood Count 2.40L, Hemoglobin 7.2L, Hematocrit 21.9L, Mean Corpuscular Volume 91, Mean Corpuscular Hemoglobin 30.0, Mean Corpuscular Hemoglobin Concent 32.8, Red Cell Distribution Width 16.3H, Platelet Count 358, Mean Platelet Volume 6.8, Neutrophils (%) (Auto) , Lymphocytes (%) (Auto) , Monocytes (%) (Auto) , Eosinophils (%) (Auto) , Basophils (%) (Auto) , Differential Total Cells Counted 100, Neutrophils % ( Manual) 88H, Lymphocytes % (Manual) 4L, Monocytes % (Manual) 8, Eosinophils % ( Manual) 0, Basophils % (Manual) 0, Band Neutrophils 0, Platelet Estimate Adequate, Platelet Morphology , Giant Platelets Occasional, Anisocytosis 2+, Sodium Level 135L, Potassium Level 4.2, Chloride Level 103, Carbon Dioxide Level 28, Anion Gap 4L, Blood Urea Nitrogen 21H, Creatinine 1.1, Estimat Glomerular Filtration Rate > 60, Glucose Level 141H, Calcium Level 8.5, Total Bilirubin 0.9, Aspartate Amino Transf (AST/SGOT) 104H, Alanine Aminotransferase (ALT/SGPT) 142H, Alkaline Phosphatase 256H, Total Creatine Kinase 7L, Total Protein 6.4, Albumin 3.1L, Globulin 3.3, Albumin/Globulin Ratio 0.9L, Hypochromasia 1+, Sickle Cells RareH, Hepatitis A IgM Antibody [Pending], Hepatitis B Surface Antigen [Pending], Hepatitis B Core IgM Antibody [Pending], Hepatitis C Antibody [Pending] Height (Feet): 5 Height (Inches): 11.00 Weight (Pounds): 138 Objective Thin AA man NCAT, disconjugate gaze neck supple CTA RR Abd soft ND NT no edema Charlotte Shaffer MD Jul 17, 2019 12:46
[2019-07-17] MEDS: D5 1/2NS 1,000 ML IV SCH ×2 (13:22→20:33)
[2019-07-17 16:00] VITALS: BP 108/65
--- NOTE | 2019-07-17 16:18 | Consultation ---
History of Present Illness General Chief Complaint: General Complaint Present Illness Allergies: Coded Allergies: PENTAMIDINE ISETHIONATE (Verified Allergy, Severe, palpitations, 08/27/17) AMPICILLIN (Verified Allergy, Unknown, hives, 01/05/18) Tolerated CEftriaxone 01/02/18 KETOROLAC (Verified Allergy, Unknown, 08/03/16) MORPHINE (Verified Allergy, Unknown, 08/03/16) PHENYTOIN (Verified Allergy, Unknown, 08/03/16) Medication History Scheduled Folic Acid* (Folic Acid*), 1 MG ORAL DAILY Hydromorphone HCl (Dilaudid), 14 MG ORAL EVERY 4 HOURS, (Reported) Hydroxyurea* (HYDREA 500mg*), 500 MG PO BID Lacosamide (Vimpat), 100 MG PO BID, (Reported) Methadone Hcl* (Methadone*), 60 MG PO Q6HR, (Reported) Scheduled PRN Diphenhydramine HCl (Benadryl), 50 MG PO Q4HR PRN for Itching, (Reported) Patient History Healthcare decision maker N Resuscitation status Advanced Directive on File Physical Exam Last 24 Hour Vital Signs Date Time Temp Pulse Resp B/P (MAP) Pulse Ox O2 Delivery O2 Flow Rate FiO2 07/17/19 16:00 2.0 07/17/19 12:00 2.0 07/17/19 12:00 98.4 81 20 106/65 (79) 100 07/17/19 12:00 78 07/17/19 09:00 Room Air 07/17/19 08:00 2.0 07/17/19 08:00 97.9 79 20 105/70 (82) 95 07/17/19 08:00 88 07/17/19 04:15 99.0 07/17/19 04:00 85 07/17/19 04:00 98.8 87 18 119/66 (83) 100 07/17/19 04:00 2.0 07/17/19 03:11 98 Nasal Cannula 5.0 40 07/17/19 01:51 Nasal Cannula 2.0 07/17/19 00:12 99.0 07/17/19 00:00 99.0 98 18 115/70 (85) 97 07/17/19 00:00 104 07/17/19 00:00 2.0 07/16/19 22:38 Nasal Cannula 2.0 07/16/19 22:00 100.0 96 20 126/84 (98) 98 07/16/19 21:00 98 07/16/19 20:00 100.2 94 28 117/71 100 Room Air 07/16/19 17:50 100.4 97 19 119/78 99 Nasal Cannula 6.0 Intake and Output 07/16/19 07/17/19 19:00 07:00 Intake Total 1000 ml Output Total 1000 ml Balance 1000 ml -1000 ml Intake Oral 0 ml IV Total 1000 ml Output Urine Total 1000 ml # Bowel Movements 4 Laboratory Tests Test 07/17/19 08:45 White Blood Count 18.0 K/UL (4.8-10.8) H Red Blood Count 2.40 M/UL (4.70-6.10) L Hemoglobin 7.2 G/DL (14.2-18.0) L Hematocrit 21.9 % (42.0-52.0) L Mean Corpuscular Volume 91 FL (80-99) Mean Corpuscular Hemoglobin 30.0 PG (27.0-31.0) Mean Corpuscular Hemoglobin Concent 32.8 G/DL (32.0-36.0) Red Cell Distribution Width 16.3 % (11.6-14.8) H Platelet Count 358 K/UL (150-450) Mean Platelet Volume 6.8 FL (6.5-10.1) Neutrophils (%) (Auto) % (45.0-75.0) Lymphocytes (%) (Auto) % (20.0-45.0) Monocytes (%) (Auto) % (1.0-10.0) Eosinophils (%) (Auto) % (0.0-3.0) Basophils (%) (Auto) % (0.0-2.0) Differential Total Cells Counted 100 Neutrophils % (Manual) 88 % (45-75) H Lymphocytes % (Manual) 4 % (20-45) L Monocytes % (Manual) 8 % (1-10) Eosinophils % (Manual) 0 % (0-3) Basophils % (Manual) 0 % (0-2) Band Neutrophils 0 % (0-8) Platelet Estimate Adequate Platelet Morphology Giant Platelets Occasional Hypochromasia 1+ Anisocytosis 2+ Sickle Cells Rare H Sodium Level 135 MMOL/L (136-145) L Potassium Level 4.2 MMOL/L (3.5-5.1) Chloride Level 103 MMOL/L (98-107) Carbon Dioxide Level 28 MMOL/L (21-32) Anion Gap 4 mmol/L (5-15) L Blood Urea Nitrogen 21 mg/dL (7-18) H Creatinine 1.1 MG/DL (0.55-1.30) Estimat Glomerular Filtration Rate > 60 mL/min (>60) Glucose Level 141 MG/DL (74-106) H Calcium Level 8.5 MG/DL (8.5-10.1) Total Bilirubin 0.9 MG/DL (0.2-1.0) Aspartate Amino Transf (AST/SGOT) 104 U/L (15-37) H Alanine Aminotransferase (ALT/SGPT) 142 U/L (12-78) H Alkaline Phosphatase 256 U/L (46-116) H Total Creatine Kinase 7 U/L (26-308) L Total Protein 6.4 G/DL (6.4-8.2) Albumin 3.1 G/DL (3.4-5.0) L Globulin 3.3 g/dL Albumin/Globulin Ratio 0.9 (1.0-2.7) L Hepatitis A IgM Antibody Pending Hepatitis B Surface Antigen Pending Hepatitis B Core IgM Antibody Pending Hepatitis C Antibody Pending Height (Feet): 5 Height (Inches): 11.00 Weight (Pounds): 138 Medications Current Medications Medications (Trade) Dose Ordered Sig/Anthony Route PRN Reason Start Time Stop Time Status Last Admin Dose Admin Acetaminophen (Tylenol) 650 mg Q6H PRN ORAL Mild Pain/Temp > 100.5 07/16/19 22:15 08/15/19 22:14 07/16/19 23:41 Dextrose/Sodium Chloride 1,000 ml @ 125 mls/hr Q8H IV 07/17/19 12:45 08/16/19 12:44 07/17/19 13:22 Diphenhydramine HCl (Benadryl) 50 mg EVERY 4 HOURS PRN IVP Itching 07/16/19 22:15 08/15/19 22:14 07/17/19 12:19 Hydromorphone HCl (Dilaudid) 2 mg Q4H PRN IVP Severe Pain (Pain Scale 7-10) 07/16/19 22:15 07/23/19 22:14 07/17/19 12:19 Hydroxyurea (Hydrea) 500 mg TWICE A DAY ORAL 07/17/19 09:00 07/22/19 08:59 07/17/19 09:08 Levofloxacin (Levaquin) 750 mg DAILY ORAL 07/17/19 09:00 07/24/19 08:59 07/17/19 09:08 Methadone HCl (Methadone HCl) 60 mg Q6H ORAL 07/17/19 09:00 07/24/19 08:59 07/17/19 15:07 Assessment/Plan Assessment/Plan: Hematology/Oncology Consultation Requesting MD:Griffin Patricia Date of Service: 07/17/19 Reason for consultation: Anemia and Leukocytosis, Sickle cell disease HISTORY OF PRESENT ILLNESS: 43y old male I know well, with a history of sickle cell anemia. The patient was last admitted to [facility] in June of 2018, 08/2018, and 2018, 12/2018 I last saw him at that time. Please see history and physical and discharge summary dictated at that time. The patient now complains of back pain that radiates to the chest as well as thigh pain b/l. The patient presented to [place] emergency room. The patient is admitted with chest pain and cough to rule out pneumonia. Hematology/Oncology was consulted for Anemia and Leukocytosis. He was a patient of in the past but has not followed up in clinic. PAST MEDICAL HISTORY: Sickle cell disease, History of seizure disorder, Avascular necrosis of the bilateral hips, Avascular necrosis of bilateral knees. PAST SURGICAL HISTORY: Tonsillectomy and adenoidectomy, Left tibia fibula fracture, Open reduction and internal fixation of left tibia fibula fracture, Pneumothorax. CURRENT MEDICATIONS:,Tylenol 650 mg p.o. daily, Benadryl 25 mg 2 tablets p.o. q.4 hours p.r.n, Folic acid 1 mg p.o. daily, Gabapentin 300 mg p.o. 3 times daily, Dilaudid 4 mg 3 tablets p.o. q.4 hours, Hydroxyurea 500 mg p.o. twice daily, Vimpat 100 mg p.o. twice bin, Methadone 60 mg p.o. q.6 hours. ALLERGIES: Ampicillin, Ketoralac, Morphine, Pentamidine, Phenytoin. SOCIAL HISTORY: The patient lives with his girlfriend and children. The patient is disabled. The patient denies tobacco or alcohol use. PHYSICAL EXAMINATION: VITAL SIGNS: have been reviewed GENERAL: The patient is a well-developed and well nourished male, in no apparent distress. HEENT: Eyes, pupils are equal and responsive to light and accommodation. Extraocular movements are intact. NECK: Supple without lymphadenopathy. CHEST: Decreased crackles in bilateral bases. Otherwise, clear to auscultation without wheezes or rales. CARDIOVASCULAR: Regular rhythm and rate ABDOMEN: Soft, nontender, and nondistended. Positive bowel sounds. No evidence of hepatosplenomegaly. Currently, no rebound or guarding noted EXTREMITIES: Negative for clubbing, cyanosis, or edema. RECTAL/GENITAL: Refused. NEUROLOGIC: Cranial nerves II through XII are grossly intact without focal def ROS: Constitutional: No fever, no chills, no night sweats, no fatigue Skin: No rashes, lumps, itchiness, dryness HEENT: No LERMA, ear ache, visual changes, double vision, nosebleeds, sore throat, lumps, swollen glands Breasts: No lumps, pain, discharge Pulmonary: No cough, sputum, shortness of breath, coughing up blood, hemoptysis Cardiovascular: No chest pain, tightness, palpitations, syncope, claudication, orthopnea, PND GI: No nausea, vomiting, diarrhea, melena, hematochezia, change in appetite, abdominal pain : No dysuria, frequency, urgency, urinary incontinence, foamy urine Musculoskeletal: No joint swelling or muscle pain, trauma, back pain Neurologic: No dizziness, fainting, seizures, changes in smell or taste Psychiatric: No nervousness, stress, or depression, anxiety, hallucinations Endocrine: No weight change, heat or cold intolerance LABORATORY STUDIES: noted above ASSESSMENT/Recs # Sickl cell disease with crisis presentation with total body pain as well as cp --> IVF, benadryl, dilaudid --> No evidence of hemolysis is noted, peripheral smear has been reviewed. --> Hgb goal >7. Transfuse prn. --> Epogen or iron at this time is not particularly indicated --> Medications have been reviewed --> hgb trend 8-->7 # Leukocytosis. Likely related to underlying infection versus reactive process --> have reviewed peripheral smear and bandemia/neutrophilia noted --> continue antibiotics if they have been started by ID team --> monitor for resolution --> trend wbc 21-->17 # DVT of the bilateral lower ext --> hold off on anticoagulation at this time # History of seizure disorder, continue gabapentin as above. # Pulmonary hypertension. 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 Greatly appreciate consultation! Marco Dutton MD Jul 17, 2019 16:18
[2019-07-17] MEDS: Albuterol ud Inhalation HHN PRN (16:50)
--- NOTE | 2019-07-17 18:03 | Cardiac Electrophysiology PN ---
Subjective Subjective [id number] Objective Last 24 Hour Vital Signs Date Time Temp Pulse Resp B/P (MAP) Pulse Ox O2 Delivery O2 Flow Rate FiO2 07/17/19 16:55 84 20 99 Nasal Cannula 4.0 36 85 20 96 07/17/19 16:54 97 Nasal Cannula 4.0 36 07/17/19 16:00 73 07/17/19 16:00 2.0 07/17/19 16:00 98.2 82 20 108/65 (79) 100 07/17/19 12:00 2.0 07/17/19 12:00 98.4 81 20 106/65 (79) 100 07/17/19 12:00 78 07/17/19 09:00 Room Air 07/17/19 08:00 2.0 07/17/19 08:00 97.9 79 20 105/70 (82) 95 07/17/19 08:00 88 07/17/19 04:15 99.0 07/17/19 04:00 85 07/17/19 04:00 98.8 87 18 119/66 (83) 100 07/17/19 04:00 2.0 07/17/19 03:11 98 Nasal Cannula 5.0 40 07/17/19 01:51 Nasal Cannula 2.0 07/17/19 00:12 99.0 07/17/19 00:00 99.0 98 18 115/70 (85) 97 07/17/19 00:00 104 07/17/19 00:00 2.0 07/16/19 22:38 Nasal Cannula 2.0 07/16/19 22:00 100.0 96 20 126/84 (98) 98 07/16/19 21:00 98 07/16/19 20:00 100.2 94 28 117/71 100 Room Air Intake and Output 07/16/19 07/17/19 19:00 07:00 Intake Total 1000 ml Output Total 1000 ml Balance 1000 ml -1000 ml Intake Oral 0 ml IV Total 1000 ml Output Urine Total 1000 ml # Bowel Movements 4 Laboratory Tests Test 07/17/19 08:45 White Blood Count 18.0 K/UL (4.8-10.8) H Red Blood Count 2.40 M/UL (4.70-6.10) L Hemoglobin 7.2 G/DL (14.2-18.0) L Hematocrit 21.9 % (42.0-52.0) L Mean Corpuscular Volume 91 FL (80-99) Mean Corpuscular Hemoglobin 30.0 PG (27.0-31.0) Mean Corpuscular Hemoglobin Concent 32.8 G/DL (32.0-36.0) Red Cell Distribution Width 16.3 % (11.6-14.8) H Platelet Count 358 K/UL (150-450) Mean Platelet Volume 6.8 FL (6.5-10.1) Neutrophils (%) (Auto) % (45.0-75.0) Lymphocytes (%) (Auto) % (20.0-45.0) Monocytes (%) (Auto) % (1.0-10.0) Eosinophils (%) (Auto) % (0.0-3.0) Basophils (%) (Auto) % (0.0-2.0) Differential Total Cells Counted 100 Neutrophils % (Manual) 88 % (45-75) H Lymphocytes % (Manual) 4 % (20-45) L Monocytes % (Manual) 8 % (1-10) Eosinophils % (Manual) 0 % (0-3) Basophils % (Manual) 0 % (0-2) Band Neutrophils 0 % (0-8) Platelet Estimate Adequate Platelet Morphology Giant Platelets Occasional Hypochromasia 1+ Anisocytosis 2+ Sickle Cells Rare H Sodium Level 135 MMOL/L (136-145) L Potassium Level 4.2 MMOL/L (3.5-5.1) Chloride Level 103 MMOL/L (98-107) Carbon Dioxide Level 28 MMOL/L (21-32) Anion Gap 4 mmol/L (5-15) L Blood Urea Nitrogen 21 mg/dL (7-18) H Creatinine 1.1 MG/DL (0.55-1.30) Estimat Glomerular Filtration Rate > 60 mL/min (>60) Glucose Level 141 MG/DL (74-106) H Calcium Level 8.5 MG/DL (8.5-10.1) Total Bilirubin 0.9 MG/DL (0.2-1.0) Aspartate Amino Transf (AST/SGOT) 104 U/L (15-37) H Alanine Aminotransferase (ALT/SGPT) 142 U/L (12-78) H Alkaline Phosphatase 256 U/L (46-116) H Total Creatine Kinase 7 U/L (26-308) L Total Protein 6.4 G/DL (6.4-8.2) Albumin 3.1 G/DL (3.4-5.0) L Globulin 3.3 g/dL Albumin/Globulin Ratio 0.9 (1.0-2.7) L Hepatitis A IgM Antibody Pending Hepatitis B Surface Antigen Pending Hepatitis B Core IgM Antibody Pending Hepatitis C Antibody Pending HIV (1&2) Antibody Rapid Negative (NEGATIVE) Thanh Patten MD Jul 17, 2019 18:03
--- NOTE | 2019-07-17 19:15 | NUR ---
HAND-OFF: Report given to Tim VILLALOBOS. Pt remains stable.
--- NOTE | 2019-07-17 19:16 | NUR ---
NURSE NOTES: Got report from Min RN. Pt in stable condition. Denies any pain. No s/s of distress or discomfort noted. Pt resting in bed comfortably. Bed in low and locked position, call light within reach, bedside table within reach. Continue to monitor.
--- NOTE | 2019-07-17 19:43 | General Progress Note ---
Assessment/Plan Assessment/Plan: (1) Intractable pain (2) Sickle cell disease and Crisis (3) B/L Femur head AVN Patient will be continued on Methadone and Dilaudid D/w Dr. Perera and he concurred. Subjective Date patient seen: Jul 17, 2019 Time patient seen: 07:15 - pm Constitutional: Reports: weakness HEENT: Reports: no symptoms Cardiovascular: Reports: no symptoms Respiratory: Reports: no symptoms Gastrointestinal/Abdominal: Reports: no symptoms Genitourinary: Reports: no symptoms 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: Reports: weakness Hematologic/Lymphatic: Reports: no symptoms Allergies: Coded Allergies: PENTAMIDINE ISETHIONATE (Verified Allergy, Severe, palpitations, 08/27/17) AMPICILLIN (Verified Allergy, Unknown, hives, 01/05/18) Tolerated CEftriaxone 01/02/18 KETOROLAC (Verified Allergy, Unknown, 08/03/16) MORPHINE (Verified Allergy, Unknown, 08/03/16) PHENYTOIN (Verified Allergy, Unknown, 08/03/16) Subjective Patient is in bed and showing no signs of pain or distress. Has been started on the Methadone 60mg Q6H and has gotten 2 doses and Dilaudid 2mg IV Q4H PRN 5 doses in the last 24hrs. Pain has been tolerated on the medications. Objective Last 24 Hour Vital Signs Date Time Temp Pulse Resp B/P (MAP) Pulse Ox O2 Delivery O2 Flow Rate FiO2 07/17/19 16:55 84 20 99 Nasal Cannula 4.0 36 85 20 96 07/17/19 16:54 97 Nasal Cannula 4.0 36 07/17/19 16:00 73 07/17/19 16:00 2.0 07/17/19 16:00 98.2 82 20 108/65 (79) 100 07/17/19 12:00 2.0 07/17/19 12:00 98.4 81 20 106/65 (79) 100 07/17/19 12:00 78 07/17/19 09:00 Room Air 07/17/19 08:00 2.0 07/17/19 08:00 97.9 79 20 105/70 (82) 95 07/17/19 08:00 88 07/17/19 04:15 99.0 07/17/19 04:00 85 07/17/19 04:00 98.8 87 18 119/66 (83) 100 07/17/19 04:00 2.0 07/17/19 03:11 98 Nasal Cannula 5.0 40 07/17/19 01:51 Nasal Cannula 2.0 07/17/19 00:12 99.0 07/17/19 00:00 99.0 98 18 115/70 (85) 97 07/17/19 00:00 104 07/17/19 00:00 2.0 07/16/19 22:38 Nasal Cannula 2.0 07/16/19 22:00 100.0 96 20 126/84 (98) 98 07/16/19 21:00 98 07/16/19 20:00 100.2 94 28 117/71 100 Room Air Intake and Output 07/16/19 07/17/19 19:00 07:00 Intake Total 1000 ml Output Total 1000 ml Balance 1000 ml -1000 ml Intake Oral 0 ml IV Total 1000 ml Output Urine Total 1000 ml # Bowel Movements 4 Laboratory Tests 07/17/19 08:45: White Blood Count 18.0H, Red Blood Count 2.40L, Hemoglobin 7.2L, Hematocrit 21.9L, Mean Corpuscular Volume 91, Mean Corpuscular Hemoglobin 30.0, Mean Corpuscular Hemoglobin Concent 32.8, Red Cell Distribution Width 16.3H, Platelet Count 358, Mean Platelet Volume 6.8, Neutrophils (%) (Auto) , Lymphocytes (%) (Auto) , Monocytes (%) (Auto) , Eosinophils (%) (Auto) , Basophils (%) (Auto) , Differential Total Cells Counted 100, Neutrophils % ( Manual) 88H, Lymphocytes % (Manual) 4L, Monocytes % (Manual) 8, Eosinophils % ( Manual) 0, Basophils % (Manual) 0, Band Neutrophils 0, Platelet Estimate Adequate, Platelet Morphology , Giant Platelets Occasional, Hypochromasia 1+, Anisocytosis 2+, Sickle Cells RareH, Sodium Level 135L, Potassium Level 4.2, Chloride Level 103, Carbon Dioxide Level 28, Anion Gap 4L, Blood Urea Nitrogen 21H, Creatinine 1.1, Estimat Glomerular Filtration Rate > 60, Glucose Level 141H , Calcium Level 8.5, Total Bilirubin 0.9, Aspartate Amino Transf (AST/SGOT) 104H , Alanine Aminotransferase (ALT/SGPT) 142H, Alkaline Phosphatase 256H, Total Creatine Kinase 7L, Total Protein 6.4, Albumin 3.1L, Globulin 3.3, Albumin/ Globulin Ratio 0.9L, Hepatitis A IgM Antibody [Pending], Hepatitis B Surface Antigen [Pending], Hepatitis B Core IgM Antibody [Pending], Hepatitis C Antibody [Pending], HIV (1&2) Antibody Rapid Negative Height (Feet): 5 Height (Inches): 11.00 Weight (Pounds): 138 General Appearance: no apparent distress, alert EENT: PERRL/EOMI, normal ENT inspection Neck: non-tender, normal alignment Cardiovascular: normal rate, regular rhythm Respiratory/Chest: decreased breath sounds Abdomen: non tender, soft Extremities: non-tender Edema: no edema noted Generalized Neurologic: alert, oriented x 3 Skin: normal pigmentation Cj Anderson Jul 17, 2019 19:43
[2019-07-17 20:00] VITALS: BP 138/89
[2019-07-18] VITALS: BP 108/71
[2019-07-18] MEDS: DiphenhydrAMINE 50mg/ml Inj IVP PRN ×6 (00:28→21:20)
--- NOTE | 2019-07-18 03:30 | Consultation ---
DATE OF CONSULTATION: 07/17/2019 CARDIOLOGY CONSULTATION CONSULTING PHYSICIAN: Thanh Patten M.D. REFERRING PHYSICIAN: Griffin Recinos M.D. REASON FOR CONSULTATION: Chest pain and palpitation. HISTORY OF PRESENT ILLNESS: The patient is a 43-year-old male with history of sickle cell anemia, who was last admitted to [facility] in June 2018 and August, October, and December of 2018. The patient presented to the hospital complaining of chest pain as well as thigh pain. The patient was also tachycardic. Cardiology consultation was obtained for further evaluation. REVIEW OF SYSTEMS: Negative other than what is mentioned in the history of present illness. 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 PAST SURGICAL HISTORY: Tonsillectomy and adenectomy, left tibia-fibula fracture with open reduction and internal fixation, history of pneumothorax. MEDICATIONS: Per reconciliation. ALLERGIES: He is allergic to ampicillin, ketorolac, morphine, pentamidine, and phenytoin. SOCIAL HISTORY: He lives with his girlfriend and children and is disabled. PHYSICAL EXAMINATION: VITAL SIGNS: Shows blood pressure of 108/65, pulse 80, respirations 18, and he is afebrile. HEAD AND NECK: Showed no JVD. LUNGS: Clear. CARDIOVASCULAR: Shows regular S1 and S2 with no gallop or murmur. ABDOMEN: Soft. EXTREMITIES: No pitting edema. LABORATORY AND DIAGNOSTIC DATA: Labs showed white count initially of 21.5, down to 18; hemoglobin 7.2; hematocrit 22; and platelet count is 358,000. Sodium 135, potassium 4.2, BUN 21, creatinine 1.1, and glucose 141. AST, ALT, and ALP are elevated at 150, 192, and 283. Troponin is negative. Urine toxicology screen is negative. ASSESSMENT AND PLAN: 1. Chest pain. The patient's first troponin is negative, likely due to sickle cell anemia. He is on hydroxyurea, methadone, and Levaquin. We will get an echocardiogram to evaluate for ejection fraction and wall motion abnormality. 2. Asthma. Proventil. 3. DVT of bilateral lower extremities. 4. Leukocytosis due to underlying infection versus reactive process. Antibiotics per ID team. 5. History of seizure disorder. 6. History of avascular necrosis of bilateral hips. 7. History of pulmonary hypertension. Thank you very much for allowing me to participate in the care of this patient. Please do not hesitate to contact me for any questions regarding my evaluation. Thanh Patten M.D. DR: ROBERT JOB#: [id number] CC:
[2019-07-18 04:00] VITALS: BP 104/69
[2019-07-18] MEDS: D5 1/2NS 1,000 ML IV SCH ×3 (04:36→20:23)
--- NOTE | 2019-07-18 07:25 | NUR ---
HAND-OFF: Report given to Marlys VILLALOBOS.
--- NOTE | 2019-07-18 07:30 | NUR ---
NURSE NOTES recvd pt. Pt is AOX4 and in stable condition, pt is on NC @2L with no sign of resp distress or sob, Rigth upper chest port a cath is running D51/2NS @125/hr. Bed in lowest position, call light within reach, will continue with plan of care
--- NOTE | 2019-07-18 08:18 | Hematology/Onc Progress Note ---
Assessment/Plan Assessment/Plan ASSESSMENT/Recs # Sickle cell disease with crisis presentation with total body pain as well as cp --> IVF, benadryl, dilaudid --> No evidence of hemolysis is noted, peripheral smear has been reviewed. --> Hgb goal >7. Transfuse prn. --> Epogen or iron at this time is not particularly indicated --> Medications have been reviewed --> hgb trend 8-->7.2 # Leukocytosis. Likely related to underlying infection versus reactive process --> have reviewed peripheral smear and bandemia/neutrophilia noted --> continue antibiotics if they have been started by ID team --> monitor for resolution --> trend wbc 21-->17 # DVT of the bilateral lower ext --> hold off on anticoagulation at this time --> cards aware # History of seizure disorder, continue gabapentin as above. # Pulmonary hypertension. 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 Greatly appreciate consultation! Subjective Constitutional: Denies: no symptoms, chills, fever, malaise, weakness, other HEENT: Denies: no symptoms, eye pain, blurred vision, tearing, double vision, ear pain, ear discharge, nose pain, nose congestion, throat pain, throat swelling, mouth pain, mouth swelling, other Cardiovascular: Denies: no symptoms, chest pain, edema, irregular heart rate, lightheadedness, palpitations, syncope, other Respiratory: Denies: no symptoms, cough, shortness of breath, SOB with excertion, SOB at rest, sputum, wheezing, other Gastrointestinal/Abdominal: Denies: no symptoms, abdomen distended, abdominal pain, black stools, tarry stools, blood in stool, constipated, diarrhea, difficulty swallowing, nausea, poor appetite, poor fluid intake, rectal bleeding , vomiting, other Genitourinary: Denies: no symptoms, burning, discharge, frequency, flank pain, hematuria, incontinence, pain, urgency, other 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: Denies: no symptoms, anxiety, depressed, emotional problems, headache, numbness, paresthesia, pre-existing deficit, seizure, tingling, tremors, weakness, other Endocrine: Denies: no symptoms, excessive sweating, flushing, intolerance to cold, intolerance to heat, increased hunger, increased thirst, increased urine, unexplained weight gain, unexplained weight loss, other Allergies: Coded Allergies: PENTAMIDINE ISETHIONATE (Verified Allergy, Severe, palpitations, 08/27/17) AMPICILLIN (Verified Allergy, Unknown, hives, 01/05/18) Tolerated CEftriaxone 01/02/18 KETOROLAC (Verified Allergy, Unknown, 08/03/16) MORPHINE (Verified Allergy, Unknown, 08/03/16) PHENYTOIN (Verified Allergy, Unknown, 08/03/16) Subjective 07/18/19: no bleeding, cbc is pending, continues to complain of cp Objective Objective Current Medications Medications (Trade) Dose Ordered Sig/Anthony Route PRN Reason Start Time Stop Time Status Last Admin Dose Admin Acetaminophen (Tylenol) 650 mg Q6H PRN ORAL Mild Pain/Temp > 100.5 07/16/19 22:15 08/15/19 22:14 07/18/19 02:57 Albuterol Sulfate (Proventil) 2.5 mg Q6HRT PRN HHN Shortness of Breath 07/17/19 16:45 07/22/19 16:44 07/17/19 16:50 Dextrose/Sodium Chloride 1,000 ml @ 125 mls/hr Q8H IV 07/17/19 12:45 08/16/19 12:44 07/17/19 20:33 Diphenhydramine HCl (Benadryl) 50 mg EVERY 4 HOURS PRN IVP Itching 07/16/19 22:15 08/15/19 22:14 07/18/19 04:35 Hydromorphone HCl (Dilaudid) 2 mg Q4H PRN IVP Severe Pain (Pain Scale 7-10) 07/16/19 22:15 07/23/19 22:14 07/18/19 04:36 Hydroxyurea (Hydrea) 500 mg TWICE A DAY ORAL 07/17/19 09:00 07/22/19 08:59 07/17/19 17:30 Levofloxacin (Levaquin) 750 mg DAILY ORAL 07/17/19 09:00 07/24/19 08:59 07/17/19 09:08 Methadone HCl (Methadone HCl) 60 mg Q6H ORAL 07/17/19 09:00 07/24/19 08:59 07/18/19 02:52 Last 24 Hour Vital Signs Date Time Temp Pulse Resp B/P (MAP) Pulse Ox O2 Delivery O2 Flow Rate FiO2 07/18/19 05:06 99.9 07/18/19 04:05 2.0 07/18/19 04:00 100 07/18/19 04:00 99.9 99 18 104/69 (81) 95 07/18/19 03:52 99.8 07/18/19 00:00 97 07/18/19 00:00 99.8 99 18 108/71 (83) 97 07/17/19 21:00 Room Air 07/17/19 20:00 80 18 99 Nasal Cannula 2.0 28 07/17/19 20:00 103 07/17/19 20:00 95 Nasal Cannula 2.0 28 07/17/19 20:00 100.0 104 20 138/89 (105) 97 07/17/19 20:00 2.0 07/17/19 16:55 84 20 99 Nasal Cannula 4.0 36 85 20 96 07/17/19 16:54 97 Nasal Cannula 4.0 36 07/17/19 16:00 73 07/17/19 16:00 2.0 07/17/19 16:00 98.2 82 20 108/65 (79) 100 07/17/19 12:00 2.0 07/17/19 12:00 98.4 81 20 106/65 (79) 100 07/17/19 12:00 78 07/17/19 09:00 Room Air 07/17/19 08:00 2.0 07/17/19 08:00 97.9 79 20 105/70 (82) 95 07/17/19 08:00 88 07/17/19 04:00 85 07/17/19 04:00 98.8 87 18 119/66 (83) 100 07/17/19 04:00 2.0 07/17/19 03:11 98 Nasal Cannula 5.0 40 07/17/19 01:51 Nasal Cannula 2.0 07/17/19 00:00 99.0 98 18 115/70 (85) 97 07/17/19 00:00 104 07/17/19 00:00 2.0 07/16/19 22:38 Nasal Cannula 2.0 07/16/19 22:00 100.0 96 20 126/84 (98) 98 07/16/19 21:00 98 07/16/19 20:00 100.2 94 28 117/71 100 Room Air 07/16/19 17:50 100.4 97 19 119/78 99 Nasal Cannula 6.0 07/16/19 16:00 100.4 97 23 122/79 100 Nasal Cannula 6.0 94 07/16/19 14:15 100.1 95 22 118/74 98 Nasal Cannula 6.0 07/16/19 13:32 100.2 07/16/19 12:30 100.2 94 28 117/71 100 Nasal Cannula 6.0 07/16/19 12:30 94 28 Room Air 07/16/19 12:23 100.2 94 28 117/71 (86) 100 Room Air Intake and Output 07/17/19 07/18/19 19:00 07:00 Intake Total 985 ml Output Total 900 ml Balance 985 ml -900 ml Intake Oral 360 ml IV Total 625 ml Output Urine Total 900 ml # Voids 2 Labs Test 07/16/19 13:00 07/16/19 15:55 07/17/19 08:45 White Blood Count 21.5 K/UL (4.8-10.8) 18.0 K/UL (4.8-10.8) Red Blood Count 2.71 M/UL (4.70-6.10) 2.40 M/UL (4.70-6.10) Hemoglobin 8.1 G/DL (14.2-18.0) 7.2 G/DL (14.2-18.0) Hematocrit 25.0 % (42.0-52.0) 21.9 % (42.0-52.0) Mean Corpuscular Volume 93 FL (80-99) 91 FL (80-99) Mean Corpuscular Hemoglobin 29.9 PG (27.0-31.0) 30.0 PG (27.0-31.0) Mean Corpuscular Hemoglobin Concent 32.3 G/DL (32.0-36.0) 32.8 G/DL (32.0-36.0) Red Cell Distribution Width 16.3 % (11.6-14.8) 16.3 % (11.6-14.8) Platelet Count 400 K/UL (150-450) 358 K/UL (150-450) Mean Platelet Volume 6.4 FL (6.5-10.1) 6.8 FL (6.5-10.1) Neutrophils (%) (Auto) % (45.0-75.0) % (45.0-75.0) Lymphocytes (%) (Auto) % (20.0-45.0) % (20.0-45.0) Monocytes (%) (Auto) % (1.0-10.0) % (1.0-10.0) Eosinophils (%) (Auto) % (0.0-3.0) % (0.0-3.0) Basophils (%) (Auto) % (0.0-2.0) % (0.0-2.0) Differential Total Cells Counted 100 100 Neutrophils % (Manual) 83 % (45-75) 88 % (45-75) Lymphocytes % (Manual) 10 % (20-45) 4 % (20-45) Monocytes % (Manual) 2 % (1-10) 8 % (1-10) Eosinophils % (Manual) 1 % (0-3) 0 % (0-3) Basophils % (Manual) 0 % (0-2) 0 % (0-2) Band Neutrophils 4 % (0-8) 0 % (0-8) Platelet Estimate Adequate Adequate Platelet Morphology Giant Platelets 1+ Occasional Polychromasia 1+ Anisocytosis 1+ 2+ Reticulocyte Count 2.2 % (0.5-2.0) Sodium Level 134 MMOL/L (136-145) 135 MMOL/L (136-145) Potassium Level 3.8 MMOL/L (3.5-5.1) 4.2 MMOL/L (3.5-5.1) Chloride Level 100 MMOL/L (98-107) 103 MMOL/L (98-107) Carbon Dioxide Level 29 MMOL/L (21-32) 28 MMOL/L (21-32) Anion Gap 5 mmol/L (5-15) 4 mmol/L (5-15) Blood Urea Nitrogen 26 mg/dL (7-18) 21 mg/dL (7-18) Creatinine 1.2 MG/DL (0.55-1.30) 1.1 MG/DL (0.55-1.30) Estimat Glomerular Filtration Rate > 60 mL/min (>60) > 60 mL/min (>60) Glucose Level 135 MG/DL (74-106) 141 MG/DL (74-106) Calcium Level 9.0 MG/DL (8.5-10.1) 8.5 MG/DL (8.5-10.1) Total Bilirubin 1.0 MG/DL (0.2-1.0) 0.9 MG/DL (0.2-1.0) Aspartate Amino Transf (AST/SGOT) 150 U/L (15-37) 104 U/L (15-37) Alanine Aminotransferase (ALT/SGPT) 192 U/L (12-78) 142 U/L (12-78) Alkaline Phosphatase 283 U/L (46-116) 256 U/L (46-116) Total Creatine Kinase < 7 U/L (26-308) 7 U/L (26-308) Troponin I 0.000 ng/mL (0.000-0.056) Pro-B-Type Natriuretic Peptide 60 pg/mL (0-125) Total Protein 7.1 G/DL (6.4-8.2) 6.4 G/DL (6.4-8.2) Albumin 3.6 G/DL (3.4-5.0) 3.1 G/DL (3.4-5.0) Globulin 3.5 g/dL 3.3 g/dL Albumin/Globulin Ratio 1.0 (1.0-2.7) 0.9 (1.0-2.7) Lipase 36 U/L (73-393) Urine Opiates Screen Negative (NEGATIVE) Urine Barbiturates Screen Negative (NEGATIVE) Phencyclidine (PCP) Screen Negative (NEGATIVE) Urine Amphetamines Screen Negative (NEGATIVE) Urine Benzodiazepines Screen Negative (NEGATIVE) Urine Cocaine Screen Negative (NEGATIVE) Urine Marijuana (THC) Screen Negative (NEGATIVE) Urine Color Yellow Urine Appearance Clear Urine pH 5 (4.5-8.0) Urine Specific [place] 1.015 (1.005-1.035) Urine Protein 2+ (NEGATIVE) Urine Glucose (UA) Negative (NEGATIVE) Urine Ketones Negative (NEGATIVE) Urine Blood Negative (NEGATIVE) Urine Nitrite Negative (NEGATIVE) Urine Bilirubin Negative (NEGATIVE) Urine Urobilinogen 1 MG/DL (0.0-1.0) Urine Leukocyte Esterase Negative (NEGATIVE) Urine RBC 0-2 /HPF (0 - 0) Urine WBC 0 /HPF (0 - 0) Urine Squamous Epithelial Cells None /LPF (NONE/OCC) Urine Bacteria Occasional /HPF (NONE) Hypochromasia 1+ Sickle Cells Rare HIV (1&2) Antibody Rapid Negative (NEGATIVE) Height (Feet): 5 Height (Inches): 11.00 Weight (Pounds): 138 Objective PHYSICAL EXAMINATION: VITAL SIGNS: have been reviewed GENERAL: The patient is a well-developed and well nourished male, in no apparent distress. HEENT: Eyes, pupils are equal and responsive to light and accommodation. Extraocular movements are intact. NECK: Supple without lymphadenopathy. CHEST: Decreased crackles in bilateral bases. Otherwise, clear to auscultation without wheezes or rales. CARDIOVASCULAR: Regular rhythm and rate ABDOMEN: Soft, nontender, and nondistended. Positive bowel sounds. No evidence of hepatosplenomegaly. Currently, no rebound or guarding noted EXTREMITIES: Negative for clubbing, cyanosis, or edema. RECTAL/GENITAL: Refused. Marco Dutton MD Jul 18, 2019 08:18
[2019-07-18 08:39] VITALS: BP 98/60
[2019-07-18] MEDS: Hydroxyurea 500mg cap ORAL SCH ×2 (08:50→17:25)
[2019-07-18] MEDS: Levofloxacin 750mg tab ORAL SCH (08:50)
--- NOTE | 2019-07-18 10:18 | General Progress Note ---
Assessment/Plan Assessment/Plan: (1) Intractable pain (2) Sickle cell disease and Crisis (3) B/L Femur head AVN Patient will be continued on Methadone and Dilaudid D/w Dr. Perera and he concurred. Subjective Date patient seen: Jul 18, 2019 Time patient seen: 10:15 - am Allergies: Coded Allergies: PENTAMIDINE ISETHIONATE (Verified Allergy, Severe, palpitations, 08/27/17) AMPICILLIN (Verified Allergy, Unknown, hives, 01/05/18) Tolerated CEftriaxone 01/02/18 KETOROLAC (Verified Allergy, Unknown, 08/03/16) MORPHINE (Verified Allergy, Unknown, 08/03/16) PHENYTOIN (Verified Allergy, Unknown, 08/03/16) Subjective Constitutional: Reports: weakness HEENT: Reports: no symptoms Cardiovascular: Reports: no symptoms Respiratory: Reports: no symptoms Gastrointestinal/Abdominal: Reports: no symptoms Genitourinary: Reports: no symptoms 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: Reports: weakness Hematologic/Lymphatic: Reports: no symptoms Subjective Patient has been in bed c/o severe pain receiving the Methadone 4 doses and Dilaudid 6 doses in the last 24hrs. It has allowed patient to tolerate the pain. Objective Last 24 Hour Vital Signs Date Time Temp Pulse Resp B/P (MAP) Pulse Ox O2 Delivery O2 Flow Rate FiO2 07/18/19 09:20 100.6 07/18/19 08:39 100.6 80 18 98/60 (73) 95 07/18/19 08:37 2.0 07/18/19 08:35 Room Air 07/18/19 08:00 83 07/18/19 04:05 2.0 07/18/19 04:00 100 07/18/19 04:00 99.9 99 18 104/69 (81) 95 07/18/19 03:52 99.8 07/18/19 00:00 97 07/18/19 00:00 99.8 99 18 108/71 (83) 97 07/17/19 21:00 Room Air 07/17/19 20:00 80 18 99 Nasal Cannula 2.0 28 07/17/19 20:00 103 07/17/19 20:00 95 Nasal Cannula 2.0 28 07/17/19 20:00 100.0 104 20 138/89 (105) 97 07/17/19 20:00 2.0 07/17/19 16:55 84 20 99 Nasal Cannula 4.0 36 85 20 96 07/17/19 16:54 97 Nasal Cannula 4.0 36 07/17/19 16:00 73 07/17/19 16:00 2.0 07/17/19 16:00 98.2 82 20 108/65 (79) 100 07/17/19 12:00 2.0 07/17/19 12:00 98.4 81 20 106/65 (79) 100 07/17/19 12:00 78 Intake and Output 07/17/19 07/18/19 19:00 07:00 Intake Total 985 ml Output Total 900 ml Balance 985 ml -900 ml Intake Oral 360 ml IV Total 625 ml Output Urine Total 900 ml # Voids 2 Laboratory Tests 07/18/19 10:00: Troponin I [Pending] Height (Feet): 5 Height (Inches): 11.00 Weight (Pounds): 138 Objective General Appearance: no apparent distress, alert EENT: PERRL/EOMI, normal ENT inspection Neck: non-tender, normal alignment Cardiovascular: normal rate, regular rhythm Respiratory/Chest: decreased breath sounds Abdomen: non tender, soft Extremities: non-tender Edema: no edema noted Generalized Neurologic: alert, oriented x 3 Skin: normal pigmentation Cj Anderson Jul 18, 2019 10:18
[2019-07-18 10:34] LABS: ANION GAP 2 mmol/L (5-15); BLOOD UREA NITROGEN 16 mg/dL (7-18); CALCIUM 8.7 MG/DL (8.5-10.1); CARBON DIOXIDE 30 MMOL/L (21-32); CHLORIDE 103 MMOL/L (98-107); POTASSIUM 4.3 MMOL/L (3.5-5.1); SODIUM 135 MMOL/L (136-145)
--- NOTE | 2019-07-18 10:45 | Consultation ---
DATE OF CONSULTATION: 07/16/2019 GASTROENTEROLOGY CONSULTATION CONSULTING PHYSICIAN: Charlotte Shaffer M.D. CHIEF COMPLAINT: I was asked to see this patient by Dr. Griffin Recinos for evaluation of abnormal liver tests. HISTORY OF PRESENT ILLNESS: The patient is a 43-year-old unfortunate man with a history of sickle cell disease, who comes into the hospital due to diffuse and radiating back pain consistent with his previous sickle cell attacks. The patient was also noted to have abnormal liver tests. The patient has had no known history of liver disease that he can recall although his previous tests here at [facility] do show a chronic panel of abnormal liver tests. He has had a cholecystectomy about a year ago for history of gallstones. Denies any abdominal pain, nausea, or vomiting. He has had blood transfusions in the past, but he has never had any intravenous drug use. The patient has had a CT scan of the abdomen about 8 months ago, which did not reveal any severe chronic liver disease. 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 MEDICATIONS: See the chart list for details. ALLERGIES: Penicillin, ketorolac, morphine, pentamidine, and phenytoin. FAMILY HISTORY: Noncontributory. SOCIAL HISTORY: The patient is single. He does not smoke or drink. REVIEW OF SYSTEMS: Otherwise negative. PHYSICAL EXAMINATION: GENERAL: Pleasant, thin man, seen in the emergency room. HEENT: Normocephalic and atraumatic. Sclerae anicteric. Oropharynx clear. NECK: Supple. CHEST: Clear to auscultation. CARDIOVASCULAR: Revealed a regular rate. ABDOMEN: Soft and flat without organomegaly. EXTREMITIES: Revealed no edema. LABORATORY DATA: Noted. The patient had a white count of 21,000. He was anemic. He had a hematocrit of 25. He had an AST and ALT of 150 and 192 respectively with alkaline phosphatase 297. Bilirubin was normal. ASSESSMENT: This patient presents with abnormal liver tests, which appeared to be chronic of unclear etiology. He has had previous abnormal liver tests on previous admissions, although on this admission the levels are somewhat higher. Differential diagnosis is very low, but notably included chronic hepatitis B or C. Mass and lesions of the liver would be another consideration. It could be congestion of liver bed due to sickle cell crisis, which will resolve with management of the sickle cell disease. Other pathologies such as rhabdomyolysis can also be considered. The patient will have hepatitis B and C serologies checked as well as his CPK. It can be very high and oral diet can be given as tolerated. I will first perform an ultrasound imaging of his liver and if necessary a CT scan be repeated. Further workup will be based on results of the above testing. RECOMMENDATIONS: Per above orders and per the orders written in the chart. Thank you for asking me to participate in the care of this patient. Charlotte Shaffer M.D. DR: Salvador JOB#: [id number] CC:
--- NOTE | 2019-07-18 10:46 | Infectious Diseases Prog Note ---
Assessment/Plan Assessment/Plan A; Sepsis Pneumonia Sickle cell crisis Elevated transaminase Penicillin allergy Avascular necrosis of hips P: Continue Levaquin Will f/u abdominal US Subjective ROS Limited/Unobtainable: No Constitutional: Reports: fever, other - Pelt=889.6 Respiratory: Reports: shortness of breath, productive cough Cardiovascular: Reports: no symptoms Gastrointestinal/Abdominal: Reports: no symptoms Musculoskeletal: Reports: pain, other - back & legs pain Allergies: Coded Allergies: PENTAMIDINE ISETHIONATE (Verified Allergy, Severe, palpitations, 08/27/17) AMPICILLIN (Verified Allergy, Unknown, hives, 01/05/18) Tolerated CEftriaxone 01/02/18 KETOROLAC (Verified Allergy, Unknown, 08/03/16) MORPHINE (Verified Allergy, Unknown, 08/03/16) PHENYTOIN (Verified Allergy, Unknown, 08/03/16) Objective Vital Signs Last 24 Hour Vital Signs Date Time Temp Pulse Resp B/P (MAP) Pulse Ox O2 Delivery O2 Flow Rate FiO2 07/18/19 09:20 100.6 07/18/19 08:39 100.6 80 18 98/60 (73) 95 07/18/19 08:37 2.0 07/18/19 08:35 Room Air 07/18/19 08:00 83 07/18/19 04:05 2.0 07/18/19 04:00 100 07/18/19 04:00 99.9 99 18 104/69 (81) 95 07/18/19 03:52 99.8 07/18/19 00:00 97 07/18/19 00:00 99.8 99 18 108/71 (83) 97 07/17/19 21:00 Room Air 07/17/19 20:00 80 18 99 Nasal Cannula 2.0 28 07/17/19 20:00 103 07/17/19 20:00 95 Nasal Cannula 2.0 28 07/17/19 20:00 100.0 104 20 138/89 (105) 97 07/17/19 20:00 2.0 07/17/19 16:55 84 20 99 Nasal Cannula 4.0 36 85 20 96 07/17/19 16:54 97 Nasal Cannula 4.0 36 07/17/19 16:00 73 07/17/19 16:00 2.0 07/17/19 16:00 98.2 82 20 108/65 (79) 100 07/17/19 12:00 2.0 07/17/19 12:00 98.4 81 20 106/65 (79) 100 07/17/19 12:00 78 Height (Feet): 5 Height (Inches): 11.00 Weight (Pounds): 138 General Appearance: no acute distress HEENT: mucous membranes moist Respiratory/Chest: lungs clear Cardiovascular: normal rate Abdomen: soft, non tender Extremities: no edema 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: alert, oriented x 3, responsive Musculoskeletal: atrophy Laboratory Tests Test 07/18/19 08:16 07/18/19 10:00 Sodium Level 135 MMOL/L (136-145) L Potassium Level 4.3 MMOL/L (3.5-5.1) Chloride Level 103 MMOL/L (98-107) Carbon Dioxide Level 30 MMOL/L (21-32) Anion Gap 2 mmol/L (5-15) L Blood Urea Nitrogen 16 mg/dL (7-18) Creatinine 1.0 MG/DL (0.55-1.30) Estimat Glomerular Filtration Rate > 60 mL/min (>60) Glucose Level 126 MG/DL (74-106) H Calcium Level 8.7 MG/DL (8.5-10.1) Troponin I 0.000 ng/mL (0.000-0.056) Current Medications Medications (Trade) Dose Ordered Sig/Anthony Route PRN Reason Start Time Stop Time Status Last Admin Dose Admin Acetaminophen (Tylenol) 650 mg Q6H PRN ORAL Mild Pain/Temp > 100.5 07/16/19 22:15 08/15/19 22:14 07/18/19 09:58 Albuterol Sulfate (Proventil) 2.5 mg Q6HRT PRN HHN Shortness of Breath 07/17/19 16:45 07/22/19 16:44 07/17/19 16:50 Dextrose/Sodium Chloride 1,000 ml @ 125 mls/hr Q8H IV 07/17/19 12:45 08/16/19 12:44 07/17/19 20:33 Diphenhydramine HCl (Benadryl) 50 mg EVERY 4 HOURS PRN IVP Itching 07/16/19 22:15 08/15/19 22:14 07/18/19 08:49 Hydromorphone HCl (Dilaudid) 2 mg Q4H PRN IVP Severe Pain (Pain Scale 7-10) 07/16/19 22:15 07/23/19 22:14 07/18/19 08:50 Hydroxyurea (Hydrea) 500 mg TWICE A DAY ORAL 07/17/19 09:00 07/22/19 08:59 07/18/19 08:50 Levofloxacin (Levaquin) 750 mg DAILY ORAL 07/17/19 09:00 07/24/19 08:59 07/18/19 08:50 Methadone HCl (Methadone HCl) 60 mg Q6H ORAL 07/17/19 09:00 07/24/19 08:59 07/18/19 09:53 Alex Nash MD Jul 18, 2019 10:46
[2019-07-18 11:26] VITALS: BP 105/66
--- NOTE | 2019-07-18 12:16 | Diagnostic Imaging Report ---
Indication: Abnormal liver function tests, abnormal renal function tests Technique: Cole-scale and duplex images of the upper abdomen were obtained Comparison: No comparison sonograms. Reference made to abdomen pelvis CT dated 10/31/2018 Findings: Gallbladder has been removed. . Common bile duct measures 5 mm in diameter. No intrahepatic biliary ductal dilatation. Liver demonstrates normal echogenicity, no focal abnormality. It is mildly enlarged Portal vein and hepatic veins are patent. Pancreas is unremarkable. The spleen cannot be visualized. Left kidney measures 11.5 cm in length. Right kidney measures 11.9 cm length. Both kidneys demonstrate slightly increased echogenicity There is no hydronephrosis. Both kidneys demonstrate cysts and calcifications . Abdominal aorta is partially obscured by bowel gas, visualized portions are non-aneurysmal . Impression: Gallbladder has been surgically removed. 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 Also described on prior CT scan Slightly increased renal echogenicity, suspect chronic medical renal disease. No evidence of hydronephrosis Bilateral renal cysts. Calcifications within both kidneys, appear on prior CT to be more likely parenchymal or within the cyst ayala rather then calyceal Incompletely visualized abdominal aorta
--- NOTE | 2019-07-18 12:45 | Consultation ---
DATE OF CONSULTATION: 07/17/2019 INFECTIOUS DISEASES CONSULTATION CONSULTING PHYSICIAN: Alex aNsh M.D. PRIMARY ATTENDING PHYSICIAN: Griffin Recinos M.D. REASON FOR CONSULTATION: Pneumonia. HISTORY OF PRESENT ILLNESS: This is a 43-year-old male with sickle cell disease, admitted yesterday from home complaining of diffuse body pain. He has cough, congestion, and fever. In the hospital, he had fever of 100.2, had leukocytosis of 21.5, and was admitted with impression of sickle cell crisis. PAST MEDICAL HISTORY: Sickle cell disease, COPD, asthma, has bilateral avascular necrosis of femoral head, seizure disorders, and had previous surgery in the leg. ALLERGIES: Allergic to ampicillin, penicillin, ketorolac, morphine, pentamidine, and phenytoin. MEDICATIONS: Methadone, hydroxyurea, hydromorphone, Benadryl, and Tylenol. SOCIAL HISTORY: Single. Ex-smoker. Denies alcohol and drug abuse. REVIEW OF SYSTEMS: Fever, productive cough, generalized body pain. No sore throat. No runny nose. No nausea. No vomiting. No diarrhea. No problem passing urine. PHYSICAL EXAMINATION: VITAL SIGNS: Temperature 99, pulse 87, and blood pressure 119/66. GENERAL APPEARANCE: No acute distress. Seems to be thin. HEAD AND NECK: Pale conjunctivae. No oral lesion. HEART: Normal rate. LUNGS: Clear. ABDOMEN: Soft and nontender. EXTREMITIES: He has no edema. LABORATORY AND DIAGNOSTIC DATA: WBC 21.5, hemoglobin 8.1, hematocrit 25, and platelet is 400,000. Sodium 134, potassium 3.8, chloride 100, bicarbonate 29, BUN 26, and creatinine 1.2. AST 150, ALT 192, and alkaline phosphatase is 283. Lipase is low at 36. Chest x-ray showed bilateral interstitial and airspace infiltrates versus edema. IMPRESSION: Pneumonia, had leukocytosis, low-grade fever, has sickle cell crisis, has seizure disorder, bilateral avascular necrosis of femoral head, anemia, elevated in transaminase and alkaline phosphatase. RECOMMENDATION: We will start the patient on Levaquin. We will follow up the abdominal ultrasound. We will follow up the labs and clinical course. At the end of my exam, I thank Dr. Recinos for involving me in the care of this patient. Alex Nash M.D. DR: Tootie JOB#: [id number] CC:
--- NOTE | 2019-07-18 13:32 | NUR ---
CASE MANAGEMENT:REVIEW 43 YR OLD MALE WALKED IN TO OUR ER CC: GENERALIZED BODY ACHES. SOB PMH: PULMONARY HYPERTENSION. OXYGEN DEPENDENT SI: SICKLE CELL CRISIS. CHEST PAIN. PNA 100.2 94 28 117/71 100% ON RA WBC+21.5 H/H-8.1/25.0 BUN+26 AST/ALT+150/192 TROPONIN(-) IS: 1L NS BOLUS IV DILAUDID IV BENADRYL CHEST XRAY : TO TELEMETRY DCP: FROM HOME
--- NOTE | 2019-07-18 15:36 | Cardiac Electrophysiology PN ---
Assessment/Plan Assessment/Plan 1. Chest pain. All troponins are negative, likely due to sickle cell anemia. He is on hydroxyurea, methadone, and Levaquin. Echocardiogram showed Nl EF. 2. Asthma. Proventil. 3. DVT of bilateral lower extremities. 4. Leukocytosis due to underlying infection versus reactive process. Antibiotics per ID team. 5. History of seizure disorder. 6. History of avascular necrosis of bilateral hips. 7. History of pulmonary hypertension. Subjective Subjective Alert in NAD. Still has generalized body ache Objective Last 24 Hour Vital Signs Date Time Temp Pulse Resp B/P (MAP) Pulse Ox O2 Delivery O2 Flow Rate FiO2 07/18/19 14:06 93 Nasal Cannula 3.0 32 07/18/19 14:05 79 20 95 Nasal Cannula 3.0 32 07/18/19 13:39 100.0 07/18/19 12:00 86 07/18/19 12:00 2.0 07/18/19 11:26 100.0 89 20 105/66 (79) 97 07/18/19 10:58 99.0 07/18/19 08:39 100.6 80 18 98/60 (73) 95 07/18/19 08:37 2.0 07/18/19 08:35 Room Air 07/18/19 08:00 83 07/18/19 04:05 2.0 07/18/19 04:00 100 07/18/19 04:00 99.9 99 18 104/69 (81) 95 07/18/19 00:00 97 07/18/19 00:00 99.8 99 18 108/71 (83) 97 07/17/19 21:00 Room Air 07/17/19 20:00 80 18 99 Nasal Cannula 2.0 28 07/17/19 20:00 103 07/17/19 20:00 95 Nasal Cannula 2.0 28 07/17/19 20:00 100.0 104 20 138/89 (105) 97 07/17/19 20:00 2.0 07/17/19 16:55 84 20 99 Nasal Cannula 4.0 36 85 20 96 07/17/19 16:54 97 Nasal Cannula 4.0 36 07/17/19 16:00 73 07/17/19 16:00 2.0 07/17/19 16:00 98.2 82 20 108/65 (79) 100 Intake and Output 1/1/20 1/2/20 19:00 07:00 Intake Total 985 ml Output Total 900 ml Balance 985 ml -900 ml Intake Oral 360 ml IV Total 625 ml Output Urine Total 900 ml # Voids 2 Laboratory Tests Test 07/18/19 08:16 07/18/19 10:00 Sodium Level 135 MMOL/L (136-145) L Potassium Level 4.3 MMOL/L (3.5-5.1) Chloride Level 103 MMOL/L (98-107) Carbon Dioxide Level 30 MMOL/L (21-32) Anion Gap 2 mmol/L (5-15) L Blood Urea Nitrogen 16 mg/dL (7-18) Creatinine 1.0 MG/DL (0.55-1.30) Estimat Glomerular Filtration Rate > 60 mL/min (>60) Glucose Level 126 MG/DL (74-106) H Calcium Level 8.7 MG/DL (8.5-10.1) Troponin I 0.000 ng/mL (0.000-0.056) Objective HEAD AND NECK: No JVD. LUNGS: Clear. CARDIOVASCULAR: Regular S1 and S2 with no gallop or murmur. ABDOMEN: Soft. EXTREMITIES: No pitting edema. Thanh Patten MD Jul 18, 2019 15:36
[2019-07-18 16:00] VITALS: BP 102/60
--- NOTE | 2019-07-18 19:20 | NUR ---
Report from Marlys VILLALOBOS. Plan of care was endorsed to me.
[2019-07-18 20:00] VITALS: BP 107/67
--- NOTE | 2019-07-18 20:18 | General Progress Note ---
Assessment/Plan Assessment/Plan: Assessment - Sickle cell crisis - leukocytosis - abnormal LFT - negative U/S and hepatitis serologies Recommendations - IVF - Follow LFT - hepatitis serologies - neg - abdominal ultrasound - s/p mimi - check CK Subjective Allergies: Coded Allergies: PENTAMIDINE ISETHIONATE (Verified Allergy, Severe, palpitations, 08/27/17) AMPICILLIN (Verified Allergy, Unknown, hives, 01/05/18) Tolerated CEftriaxone 01/02/18 KETOROLAC (Verified Allergy, Unknown, 08/03/16) MORPHINE (Verified Allergy, Unknown, 08/03/16) PHENYTOIN (Verified Allergy, Unknown, 08/03/16) Subjective Feels OK no abdominal complaints Objective Last 24 Hour Vital Signs Date Time Temp Pulse Resp B/P (MAP) Pulse Ox O2 Delivery O2 Flow Rate FiO2 07/18/19 17:53 99.1 07/18/19 16:00 2.0 07/18/19 16:00 81 07/18/19 16:00 99.1 83 18 102/60 (74) 95 07/18/19 14:06 93 Nasal Cannula 3.0 32 07/18/19 14:05 79 20 95 Nasal Cannula 3.0 32 07/18/19 12:00 86 07/18/19 12:00 2.0 07/18/19 11:26 100.0 89 20 105/66 (79) 97 07/18/19 10:58 99.0 07/18/19 08:39 100.6 80 18 98/60 (73) 95 07/18/19 08:37 2.0 07/18/19 08:35 Room Air 07/18/19 08:00 83 07/18/19 04:05 2.0 07/18/19 04:00 100 07/18/19 04:00 99.9 99 18 104/69 (81) 95 07/18/19 00:00 97 07/18/19 00:00 99.8 99 18 108/71 (83) 97 07/17/19 21:00 Room Air Intake and Output 07/17/19 07/18/19 19:00 07:00 Intake Total 985 ml Output Total 900 ml Balance 985 ml -900 ml Intake Oral 360 ml IV Total 625 ml Output Urine Total 900 ml # Voids 2 Laboratory Tests 07/18/19 08:16: Sodium Level 135L, Potassium Level 4.3, Chloride Level 103, Carbon Dioxide Level 30, Anion Gap 2L, Blood Urea Nitrogen 16, Creatinine 1.0, Estimat Glomerular Filtration Rate > 60, Glucose Level 126H, Calcium Level 8.7 07/18/19 10:00: Troponin I 0.000 Height (Feet): 5 Height (Inches): 11.00 Weight (Pounds): 138 Objective Thin AA man NCAT, disconjugate gaze neck supple CTA RR Abd soft ND NT no edema Charlotte Shaffer MD Jul 18, 2019 20:18
--- NOTE | 2019-07-18 22:06 | General Progress Note ---
Assessment/Plan Problem List: (1) Chronic pain ICD Codes: G89.29 - Other chronic pain SNOMED: 64348157 (2) Sickle cell disease ICD Codes: D57.1 - Sickle-cell disease without crisis SNOMED: 991330474 (3) Seizure disorder ICD Codes: G40.909 - Epilepsy, unspecified, not intractable, without status epilepticus SNOMED: 313711041 (4) Pulmonary HTN ICD Codes: I27.2 - Other secondary pulmonary hypertension SNOMED: 96148928 (5) Intractable pain ICD Codes: R52 - Pain, unspecified SNOMED: 20707761 (6) Anemia ICD Codes: D64.9 - Anemia, unspecified SNOMED: 085692577 (7) Sickle cell crisis ICD Codes: D57.00 - Hb-SS disease with crisis, unspecified SNOMED: 972273134 Status: progressing Assessment/Plan: pain is improving needs iv fluids sickle cell crisis anemia Subjective ROS Limited/Unobtainable: Yes Allergies: Coded Allergies: PENTAMIDINE ISETHIONATE (Verified Allergy, Severe, palpitations, 08/27/17) AMPICILLIN (Verified Allergy, Unknown, hives, 01/05/18) Tolerated CEftriaxone 01/02/18 KETOROLAC (Verified Allergy, Unknown, 08/03/16) MORPHINE (Verified Allergy, Unknown, 08/03/16) PHENYTOIN (Verified Allergy, Unknown, 08/03/16) Objective Last 24 Hour Vital Signs Date Time Temp Pulse Resp B/P (MAP) Pulse Ox O2 Delivery O2 Flow Rate FiO2 07/18/19 17:53 99.1 07/18/19 16:00 2.0 07/18/19 16:00 81 07/18/19 16:00 99.1 83 18 102/60 (74) 95 07/18/19 14:06 93 Nasal Cannula 3.0 32 07/18/19 14:05 79 20 95 Nasal Cannula 3.0 32 07/18/19 12:00 86 07/18/19 12:00 2.0 07/18/19 11:26 100.0 89 20 105/66 (79) 97 07/18/19 10:58 99.0 07/18/19 08:39 100.6 80 18 98/60 (73) 95 07/18/19 08:37 2.0 07/18/19 08:35 Room Air 07/18/19 08:00 83 07/18/19 04:05 2.0 07/18/19 04:00 100 07/18/19 04:00 99.9 99 18 104/69 (81) 95 07/18/19 00:00 97 07/18/19 00:00 99.8 99 18 108/71 (83) 97 Intake and Output 07/17/19 07/18/19 19:00 07:00 Intake Total 985 ml Output Total 900 ml Balance 985 ml -900 ml Intake Oral 360 ml IV Total 625 ml Output Urine Total 900 ml # Voids 2 Laboratory Tests 07/18/19 08:16: Sodium Level 135L, Potassium Level 4.3, Chloride Level 103, Carbon Dioxide Level 30, Anion Gap 2L, Blood Urea Nitrogen 16, Creatinine 1.0, Estimat Glomerular Filtration Rate > 60, Glucose Level 126H, Calcium Level 8.7 07/18/19 10:00: Troponin I 0.000 Height (Feet): 5 Height (Inches): 11.00 Weight (Pounds): 138 Griffin Recinos MD Jul 18, 2019 22:06
[2019-07-19] VITALS: BP 115/69
[2019-07-19] MEDS: DiphenhydrAMINE 50mg/ml Inj IVP PRN ×6 (01:20→22:23)
[2019-07-19 04:00] VITALS: BP 111/65
[2019-07-19] MEDS: D5 1/2NS 1,000 ML IV SCH ×3 (04:48→21:10)
--- NOTE | 2019-07-19 07:25 | Hematology/Onc Progress Note ---
Assessment/Plan Assessment/Plan ASSESSMENT/Recs # Sickle cell disease with crisis presentation with total body pain as well as cp --> IVF, benadryl, dilaudid --> No evidence of hemolysis is noted, peripheral smear has been reviewed. --> Hgb goal >7. Transfuse prn. --> Epogen or iron at this time is not particularly indicated --> Medications have been reviewed --> hgb trend 8-->7.2 # Leukocytosis. Likely related to underlying infection versus reactive process --> have reviewed peripheral smear and bandemia/neutrophilia noted --> continue antibiotics if they have been started by ID team --> monitor for resolution --> trend wbc 21-->17 # DVT of the bilateral lower ext --> hold off on anticoagulation at this time --> cards aware # History of seizure disorder, continue gabapentin as above. # Pulmonary hypertension. 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 Greatly appreciate consultation! Subjective Constitutional: Denies: no symptoms, chills, fever, malaise, weakness, other HEENT: Denies: no symptoms, eye pain, blurred vision, tearing, double vision, ear pain, ear discharge, nose pain, nose congestion, throat pain, throat swelling, mouth pain, mouth swelling, other Respiratory: Denies: no symptoms, cough, shortness of breath, SOB with excertion, SOB at rest, sputum, wheezing, other Gastrointestinal/Abdominal: Denies: no symptoms, abdomen distended, abdominal pain, black stools, tarry stools, blood in stool, constipated, diarrhea, difficulty swallowing, nausea, poor appetite, poor fluid intake, rectal bleeding , vomiting, other Genitourinary: Denies: no symptoms, burning, discharge, frequency, flank pain, hematuria, incontinence, pain, urgency, other 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: Denies: no symptoms, anxiety, depressed, emotional problems, headache, numbness, paresthesia, pre-existing deficit, seizure, tingling, tremors, weakness, other Allergies: Coded Allergies: PENTAMIDINE ISETHIONATE (Verified Allergy, Severe, palpitations, 08/27/17) AMPICILLIN (Verified Allergy, Unknown, hives, 01/05/18) Tolerated CEftriaxone 01/02/18 KETOROLAC (Verified Allergy, Unknown, 08/03/16) MORPHINE (Verified Allergy, Unknown, 08/03/16) PHENYTOIN (Verified Allergy, Unknown, 08/03/16) Subjective 07/18/19: no bleeding, cbc is pending, continues to complain of cp 07/19: no bleeding, crisis appears better, refusing labs, otherwise feeling better Objective Objective Current Medications Medications (Trade) Dose Ordered Sig/Anthony Route PRN Reason Start Time Stop Time Status Last Admin Dose Admin Acetaminophen (Tylenol) 650 mg Q6H PRN ORAL Mild Pain/Temp > 100.5 07/16/19 22:15 08/15/19 22:14 07/19/19 02:56 Albuterol Sulfate (Proventil) 2.5 mg Q6HRT PRN HHN Shortness of Breath 07/17/19 16:45 07/22/19 16:44 07/17/19 16:50 Dextrose/Sodium Chloride 1,000 ml @ 125 mls/hr Q8H IV 07/17/19 12:45 08/16/19 12:44 07/19/19 04:48 Diphenhydramine HCl (Benadryl) 50 mg EVERY 4 HOURS PRN IVP Itching 07/16/19 22:15 08/15/19 22:14 07/19/19 05:20 Hydromorphone HCl (Dilaudid) 2 mg Q4H PRN IVP Severe Pain (Pain Scale 7-10) 07/16/19 22:15 07/23/19 22:14 07/19/19 05:20 Hydroxyurea (Hydrea) 500 mg TWICE A DAY ORAL 07/17/19 09:00 07/22/19 08:59 07/18/19 17:25 Levofloxacin (Levaquin) 750 mg DAILY ORAL 07/17/19 09:00 07/24/19 08:59 07/18/19 08:50 Methadone HCl (Methadone HCl) 60 mg Q6H ORAL 07/17/19 09:00 07/24/19 08:59 07/19/19 02:51 Last 24 Hour Vital Signs Date Time Temp Pulse Resp B/P (MAP) Pulse Ox O2 Delivery O2 Flow Rate FiO2 07/19/19 05:50 98.4 07/19/19 04:00 2.0 07/19/19 04:00 98.4 87 17 111/65 (80) 98 07/19/19 04:00 86 07/19/19 03:26 98.6 07/19/19 00:00 76 07/19/19 00:00 2.0 07/19/19 00:00 98.6 85 18 115/69 (84) 95 07/18/19 21:00 Room Air 07/18/19 20:00 72 18 97 Nasal Cannula 3.0 32 07/18/19 20:00 95 Nasal Cannula 3.0 32 07/18/19 20:00 98.4 93 18 107/67 (80) 95 07/18/19 16:00 2.0 07/18/19 16:00 81 07/18/19 16:00 99.1 83 18 102/60 (74) 95 07/18/19 14:06 93 Nasal Cannula 3.0 32 07/18/19 14:05 79 20 95 Nasal Cannula 3.0 32 07/18/19 12:00 86 07/18/19 12:00 2.0 07/18/19 11:26 100.0 89 20 105/66 (79) 97 07/18/19 08:39 100.6 80 18 98/60 (73) 95 07/18/19 08:37 2.0 07/18/19 08:35 Room Air 07/18/19 08:00 83 07/18/19 04:05 2.0 07/18/19 04:00 100 07/18/19 04:00 99.9 99 18 104/69 (81) 95 07/18/19 00:00 97 07/18/19 00:00 99.8 99 18 108/71 (83) 97 07/17/19 21:00 Room Air 07/17/19 20:00 80 18 99 Nasal Cannula 2.0 28 07/17/19 20:00 103 07/17/19 20:00 95 Nasal Cannula 2.0 28 07/17/19 20:00 100.0 104 20 138/89 (105) 97 07/17/19 20:00 2.0 07/17/19 16:55 84 20 99 Nasal Cannula 4.0 36 85 20 96 07/17/19 16:54 97 Nasal Cannula 4.0 36 07/17/19 16:00 73 07/17/19 16:00 2.0 07/17/19 16:00 98.2 82 20 108/65 (79) 100 07/17/19 12:00 2.0 07/17/19 12:00 98.4 81 20 106/65 (79) 100 07/17/19 12:00 78 07/17/19 09:00 Room Air 07/17/19 08:00 2.0 07/17/19 08:00 97.9 79 20 105/70 (82) 95 07/17/19 08:00 88 Intake and Output 07/18/19 07/19/19 19:00 07:00 Intake Total 120 ml 240 ml Output Total 450 ml 900 ml Balance -330 ml -660 ml Intake Oral 120 ml 240 ml Output Urine Total 450 ml 900 ml # Voids 6 Labs Test 07/16/19 13:00 07/16/19 15:55 07/17/19 08:45 07/18/19 08:16 White Blood Count 21.5 K/UL (4.8-10.8) 18.0 K/UL (4.8-10.8) Red Blood Count 2.71 M/UL (4.70-6.10) 2.40 M/UL (4.70-6.10) Hemoglobin 8.1 G/DL (14.2-18.0) 7.2 G/DL (14.2-18.0) Hematocrit 25.0 % (42.0-52.0) 21.9 % (42.0-52.0) Mean Corpuscular Volume 93 FL (80-99) 91 FL (80-99) Mean Corpuscular Hemoglobin 29.9 PG (27.0-31.0) 30.0 PG (27.0-31.0) Mean Corpuscular Hemoglobin Concent 32.3 G/DL (32.0-36.0) 32.8 G/DL (32.0-36.0) Red Cell Distribution Width 16.3 % (11.6-14.8) 16.3 % (11.6-14.8) Platelet Count 400 K/UL (150-450) 358 K/UL (150-450) Mean Platelet Volume 6.4 FL (6.5-10.1) 6.8 FL (6.5-10.1) Neutrophils (%) (Auto) % (45.0-75.0) % (45.0-75.0) Lymphocytes (%) (Auto) % (20.0-45.0) % (20.0-45.0) Monocytes (%) (Auto) % (1.0-10.0) % (1.0-10.0) Eosinophils (%) (Auto) % (0.0-3.0) % (0.0-3.0) Basophils (%) (Auto) % (0.0-2.0) % (0.0-2.0) Differential Total Cells Counted 100 100 Neutrophils % (Manual) 83 % (45-75) 88 % (45-75) Lymphocytes % (Manual) 10 % (20-45) 4 % (20-45) Monocytes % (Manual) 2 % (1-10) 8 % (1-10) Eosinophils % (Manual) 1 % (0-3) 0 % (0-3) Basophils % (Manual) 0 % (0-2) 0 % (0-2) Band Neutrophils 4 % (0-8) 0 % (0-8) Platelet Estimate Adequate Adequate Platelet Morphology Giant Platelets 1+ Occasional Polychromasia 1+ Anisocytosis 1+ 2+ Reticulocyte Count 2.2 % (0.5-2.0) Sodium Level 134 MMOL/L (136-145) 135 MMOL/L (136-145) 135 MMOL/L (136-145) Potassium Level 3.8 MMOL/L (3.5-5.1) 4.2 MMOL/L (3.5-5.1) 4.3 MMOL/L (3.5-5.1) Chloride Level 100 MMOL/L (98-107) 103 MMOL/L (98-107) 103 MMOL/L (98-107) Carbon Dioxide Level 29 MMOL/L (21-32) 28 MMOL/L (21-32) 30 MMOL/L (21-32) Anion Gap 5 mmol/L (5-15) 4 mmol/L (5-15) 2 mmol/L (5-15) Blood Urea Nitrogen 26 mg/dL (7-18) 21 mg/dL (7-18) 16 mg/dL (7-18) Creatinine 1.2 MG/DL (0.55-1.30) 1.1 MG/DL (0.55-1.30) 1.0 MG/DL (0.55-1.30) Estimat Glomerular Filtration Rate > 60 mL/min (>60) > 60 mL/min (>60) > 60 mL/min (>60) Glucose Level 135 MG/DL (74-106) 141 MG/DL (74-106) 126 MG/DL (74-106) Calcium Level 9.0 MG/DL (8.5-10.1) 8.5 MG/DL (8.5-10.1) 8.7 MG/DL (8.5-10.1) Total Bilirubin 1.0 MG/DL (0.2-1.0) 0.9 MG/DL (0.2-1.0) Aspartate Amino Transf (AST/SGOT) 150 U/L (15-37) 104 U/L (15-37) Alanine Aminotransferase (ALT/SGPT) 192 U/L (12-78) 142 U/L (12-78) Alkaline Phosphatase 283 U/L (46-116) 256 U/L (46-116) Total Creatine Kinase < 7 U/L (26-308) 7 U/L (26-308) Troponin I 0.000 ng/mL (0.000-0.056) Pro-B-Type Natriuretic Peptide 60 pg/mL (0-125) Total Protein 7.1 G/DL (6.4-8.2) 6.4 G/DL (6.4-8.2) Albumin 3.6 G/DL (3.4-5.0) 3.1 G/DL (3.4-5.0) Globulin 3.5 g/dL 3.3 g/dL Albumin/Globulin Ratio 1.0 (1.0-2.7) 0.9 (1.0-2.7) Lipase 36 U/L (73-393) Urine Opiates Screen Negative (NEGATIVE) Urine Barbiturates Screen Negative (NEGATIVE) Phencyclidine (PCP) Screen Negative (NEGATIVE) Urine Amphetamines Screen Negative (NEGATIVE) Urine Benzodiazepines Screen Negative (NEGATIVE) Urine Cocaine Screen Negative (NEGATIVE) Urine Marijuana (THC) Screen Negative (NEGATIVE) Urine Color Yellow Urine Appearance Clear Urine pH 5 (4.5-8.0) Urine Specific [place] 1.015 (1.005-1.035) Urine Protein 2+ (NEGATIVE) Urine Glucose (UA) Negative (NEGATIVE) Urine Ketones Negative (NEGATIVE) Urine Blood Negative (NEGATIVE) Urine Nitrite Negative (NEGATIVE) Urine Bilirubin Negative (NEGATIVE) Urine Urobilinogen 1 MG/DL (0.0-1.0) Urine Leukocyte Esterase Negative (NEGATIVE) Urine RBC 0-2 /HPF (0 - 0) Urine WBC 0 /HPF (0 - 0) Urine Squamous Epithelial Cells None /LPF (NONE/OCC) Urine Bacteria Occasional /HPF (NONE) Hypochromasia 1+ Sickle Cells Rare Hepatitis A IgM Antibody Negative (Negative) Hepatitis B Surface Antigen Negative (Negative) Hepatitis B Core IgM Antibody Negative (Negative) Hepatitis C Antibody <0.1 s/co ratio HIV (1&2) Antibody Rapid Negative (NEGATIVE) Test 07/18/19 10:00 07/19/19 05:35 Troponin I 0.000 ng/mL (0.000-0.056) Height (Feet): 5 Height (Inches): 11.00 Weight (Pounds): 138 Objective PHYSICAL EXAMINATION: VITAL SIGNS: have been reviewed GENERAL: The patient is a well-developed and well nourished male, in no apparent distress. HEENT: Eyes, pupils are equal and responsive to light and accommodation. Extraocular movements are intact. NECK: Supple without lymphadenopathy. CHEST: Decreased crackles in bilateral bases. Otherwise, clear to auscultation without wheezes or rales. CARDIOVASCULAR: Regular rhythm and rate ABDOMEN: Soft, nontender, and nondistended. Positive bowel sounds. No evidence of hepatosplenomegaly. Currently, no rebound or guarding noted EXTREMITIES: Negative for clubbing, cyanosis, or edema. RECTAL/GENITAL: Refused. Marco Dutton MD Jul 19, 2019 07:25
--- NOTE | 2019-07-19 07:25 | NUR ---
NURSE NOTES: Received report from Heather VILLALOBOS. Pt alert and orientedx4 and able to able needs known. Pt sitting in bed. Bed in lowest position and locked. Call light within easy reach. Side railsx2 up for safety. No c/o pain. Denied SOB. IV site in right upper chest port a cath running with D5 1/2NS@125ml/hr patent and asymptomatic. Will continue to plan of care.
--- NOTE | 2019-07-19 07:25 | NUR ---
Report given to Gildardo RN. Endorsed plan of care.
[2019-07-19 07:31] LABS: HEMATOCRIT 20.3 % (42.0-52.0); HEMOGLOBIN 6.7 G/DL (14.2-18.0); MEAN CORPUSCULAR VOLUME 92 FL (80-99); PLATELET COUNT 310 K/UL (150-450); RED BLOOD COUNT 2.21 M/UL (4.70-6.10); RED CELL DISTRIBUTION WIDTH 16.6 % (11.6-14.8); WHITE BLOOD COUNT 13.4 K/UL (4.8-10.8)
[2019-07-19 07:49] LABS: ALANINE AMINOTRANSFERASE 97 U/L (12-78); ALBUMIN 2.9 G/DL (3.4-5.0); ALBUMIN/GLOBULIN RATIO 0.9 (1.0-2.7); ALKALINE PHOSPHATASE 235 U/L (46-116); ANION GAP 5 mmol/L (5-15); ASPARTATE AMINO TRANSFERASE 61 U/L (15-37); BILIRUBIN,TOTAL 0.6 MG/DL (0.2-1.0); BLOOD UREA NITROGEN 18 mg/dL (7-18); CALCIUM 8.6 MG/DL (8.5-10.1); CARBON DIOXIDE 27 MMOL/L (21-32); CHLORIDE 105 MMOL/L (98-107); POTASSIUM 3.9 MMOL/L (3.5-5.1); SODIUM 137 MMOL/L (136-145)
[2019-07-19 07:58] LABS: CREATINE KINASE < 7 U/L (26-308)
[2019-07-19 08:00] VITALS: BP 111/65
[2019-07-19] MEDS: Hydroxyurea 500mg cap ORAL SCH ×2 (09:21→17:48)
[2019-07-19] MEDS: Levofloxacin 750mg tab ORAL SCH (09:21)
--- NOTE | 2019-07-19 09:50 | General Progress Note ---
Assessment/Plan Assessment/Plan: (1) Intractable pain (2) Sickle cell disease and Crisis (3) B/L Femur head AVN Patient will be continued on Methadone and Dilaudid D/w Dr. Perera and he concurred. Subjective Date patient seen: Jul 19, 2019 Time patient seen: 08:30 - am Allergies: Coded Allergies: PENTAMIDINE ISETHIONATE (Verified Allergy, Severe, palpitations, 08/27/17) AMPICILLIN (Verified Allergy, Unknown, hives, 01/05/18) Tolerated CEftriaxone 01/02/18 KETOROLAC (Verified Allergy, Unknown, 08/03/16) MORPHINE (Verified Allergy, Unknown, 08/03/16) PHENYTOIN (Verified Allergy, Unknown, 08/03/16) Subjective Constitutional: Reports: weakness HEENT: Reports: no symptoms Cardiovascular: Reports: no symptoms Respiratory: Reports: no symptoms Gastrointestinal/Abdominal: Reports: no symptoms Genitourinary: Reports: no symptoms 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: Reports: weakness Hematologic/Lymphatic: Reports: no symptoms Subjective Patient continues to c/o discomfort throughout his body. The pain has been severe at times. Getting the Methadone as scheduled and 6 doses of the Dilaudid in the last 24hrs.He has no new complaints at this time. Objective Last 24 Hour Vital Signs Date Time Temp Pulse Resp B/P (MAP) Pulse Ox O2 Delivery O2 Flow Rate FiO2 07/19/19 08:00 84 18 97 Nasal Cannula 3.0 32 07/19/19 08:00 70 07/19/19 08:00 2.0 07/19/19 08:00 97.9 76 17 111/65 (80) 98 07/19/19 08:00 98 Nasal Cannula 3.0 32 07/19/19 05:50 98.4 07/19/19 04:00 2.0 07/19/19 04:00 98.4 87 17 111/65 (80) 98 07/19/19 04:00 86 07/19/19 03:26 98.6 07/19/19 00:00 76 07/19/19 00:00 2.0 07/19/19 00:00 98.6 85 18 115/69 (84) 95 07/18/19 21:00 Room Air 07/18/19 20:00 72 18 97 Nasal Cannula 3.0 32 07/18/19 20:00 95 Nasal Cannula 3.0 32 07/18/19 20:00 98.4 93 18 107/67 (80) 95 07/18/19 16:00 2.0 07/18/19 16:00 81 07/18/19 16:00 99.1 83 18 102/60 (74) 95 07/18/19 14:06 93 Nasal Cannula 3.0 32 07/18/19 14:05 79 20 95 Nasal Cannula 3.0 32 07/18/19 12:00 86 07/18/19 12:00 2.0 07/18/19 11:26 100.0 89 20 105/66 (79) 97 Intake and Output 07/18/19 07/19/19 19:00 07:00 Intake Total 120 ml 240 ml Output Total 450 ml 900 ml Balance -330 ml -660 ml Intake Oral 120 ml 240 ml Output Urine Total 450 ml 900 ml # Voids 6 Laboratory Tests 07/18/19 10:00: Troponin I 0.000 07/19/19 05:35: White Blood Count 13.4H, Red Blood Count 2.21L, Hemoglobin 6.7*L, Hematocrit 20.3L, Mean Corpuscular Volume 92, Mean Corpuscular Hemoglobin 30.2, Mean Corpuscular Hemoglobin Concent 32.8, Red Cell Distribution Width 16.6H, Platelet Count 310, Mean Platelet Volume 7.1, Neutrophils (%) (Auto) , Lymphocytes (%) (Auto) , Monocytes (%) (Auto) , Eosinophils (%) (Auto) , Basophils (%) (Auto) , Neutrophils % (Manual) [Pending], Lymphocytes % (Manual) [Pending], Platelet Estimate [Pending], Platelet Morphology [Pending], Sodium Level 137, Potassium Level 3.9, Chloride Level 105, Carbon Dioxide Level 27, Anion Gap 5, Blood Urea Nitrogen 18, Creatinine 1.0, Estimat Glomerular Filtration Rate > 60, Glucose Level 124H, Calcium Level 8.6, Total Bilirubin 0.6 , Aspartate Amino Transf (AST/SGOT) 61H, Alanine Aminotransferase (ALT/SGPT) 97H , Alkaline Phosphatase 235H, Total Creatine Kinase < 7L, Total Protein 6.3L, Albumin 2.9L, Globulin 3.4, Albumin/Globulin Ratio 0.9L Height (Feet): 5 Height (Inches): 11.00 Weight (Pounds): 138 Objective General Appearance: no apparent distress, alert EENT: PERRL/EOMI, normal ENT inspection Neck: non-tender, normal alignment Cardiovascular: normal rate, regular rhythm Respiratory/Chest: decreased breath sounds Abdomen: non tender, soft Extremities: non-tender Edema: no edema noted Generalized Neurologic: alert, oriented x 3 Skin: normal pigmentation Cj Anderson Jul 19, 2019 09:50
--- NOTE | 2019-07-19 11:51 | NUR ---
*--* INSURANCE *--* ALL CLINICALS AND REVIEWS HAVE BEEN FAXED TO: [facility] P: [phone] F: [phone]
[2019-07-19 11:57] VITALS: BP 117/72
--- NOTE | 2019-07-19 13:19 | Infectious Diseases Prog Note ---
Assessment/Plan Assessment/Plan A; Sepsis Leukocytosis improving Pneumonia Sickle cell crisis Elevated transaminase Penicillin allergy Avascular necrosis of hips s/p cholecystectomy P: Continue Levaquin Subjective ROS Limited/Unobtainable: No Constitutional: Reports: no symptoms Respiratory: Reports: productive cough Cardiovascular: Reports: no symptoms Gastrointestinal/Abdominal: Reports: no symptoms Musculoskeletal: Reports: pain Allergies: Coded Allergies: PENTAMIDINE ISETHIONATE (Verified Allergy, Severe, palpitations, 08/27/17) AMPICILLIN (Verified Allergy, Unknown, hives, 01/05/18) Tolerated CEftriaxone 01/02/18 KETOROLAC (Verified Allergy, Unknown, 08/03/16) MORPHINE (Verified Allergy, Unknown, 08/03/16) PHENYTOIN (Verified Allergy, Unknown, 08/03/16) Objective Vital Signs Last 24 Hour Vital Signs Date Time Temp Pulse Resp B/P (MAP) Pulse Ox O2 Delivery O2 Flow Rate FiO2 07/19/19 12:00 74 07/19/19 12:00 2.0 07/19/19 11:57 98.4 78 17 117/72 (87) 98 07/19/19 09:00 Room Air 07/19/19 08:00 84 18 97 Nasal Cannula 3.0 32 07/19/19 08:00 70 07/19/19 08:00 2.0 07/19/19 08:00 97.9 76 17 111/65 (80) 98 07/19/19 08:00 98 Nasal Cannula 3.0 32 07/19/19 05:50 98.4 07/19/19 04:00 2.0 07/19/19 04:00 98.4 87 17 111/65 (80) 98 07/19/19 04:00 86 07/19/19 03:26 98.6 07/19/19 00:00 76 07/19/19 00:00 2.0 07/19/19 00:00 98.6 85 18 115/69 (84) 95 07/18/19 21:00 Room Air 07/18/19 20:00 72 18 97 Nasal Cannula 3.0 32 07/18/19 20:00 95 Nasal Cannula 3.0 32 07/18/19 20:00 98.4 93 18 107/67 (80) 95 07/18/19 16:00 2.0 07/18/19 16:00 81 07/18/19 16:00 99.1 83 18 102/60 (74) 95 07/18/19 14:06 93 Nasal Cannula 3.0 32 07/18/19 14:05 79 20 95 Nasal Cannula 3.0 32 Height (Feet): 5 Height (Inches): 11.00 Weight (Pounds): 138 General Appearance: no acute distress HEENT: other - pale conjunctiva Respiratory/Chest: lungs clear Cardiovascular: normal rate Abdomen: soft, non tender Extremities: no edema 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: alert, oriented x 3, responsive Laboratory Tests Test 07/19/19 05:35 White Blood Count 13.4 K/UL (4.8-10.8) H Red Blood Count 2.21 M/UL (4.70-6.10) L Hemoglobin 6.7 G/DL (14.2-18.0) *L Hematocrit 20.3 % (42.0-52.0) L Mean Corpuscular Volume 92 FL (80-99) Mean Corpuscular Hemoglobin 30.2 PG (27.0-31.0) Mean Corpuscular Hemoglobin Concent 32.8 G/DL (32.0-36.0) Red Cell Distribution Width 16.6 % (11.6-14.8) H Platelet Count 310 K/UL (150-450) Mean Platelet Volume 7.1 FL (6.5-10.1) Neutrophils (%) (Auto) % (45.0-75.0) Lymphocytes (%) (Auto) % (20.0-45.0) Monocytes (%) (Auto) % (1.0-10.0) Eosinophils (%) (Auto) % (0.0-3.0) Basophils (%) (Auto) % (0.0-2.0) Differential Total Cells Counted 100 Neutrophils % (Manual) 77 % (45-75) H Lymphocytes % (Manual) 13 % (20-45) L Monocytes % (Manual) 8 % (1-10) Eosinophils % (Manual) 1 % (0-3) Basophils % (Manual) 0 % (0-2) Band Neutrophils 1 % (0-8) Platelet Estimate Adequate Platelet Morphology Normal Hypochromasia 2+ Anisocytosis 2+ Sickle Cells Occasional H Sodium Level 137 MMOL/L (136-145) Potassium Level 3.9 MMOL/L (3.5-5.1) Chloride Level 105 MMOL/L (98-107) Carbon Dioxide Level 27 MMOL/L (21-32) Anion Gap 5 mmol/L (5-15) Blood Urea Nitrogen 18 mg/dL (7-18) Creatinine 1.0 MG/DL (0.55-1.30) Estimat Glomerular Filtration Rate > 60 mL/min (>60) Glucose Level 124 MG/DL (74-106) H Calcium Level 8.6 MG/DL (8.5-10.1) Total Bilirubin 0.6 MG/DL (0.2-1.0) Aspartate Amino Transf (AST/SGOT) 61 U/L (15-37) H Alanine Aminotransferase (ALT/SGPT) 97 U/L (12-78) H Alkaline Phosphatase 235 U/L (46-116) H Total Creatine Kinase < 7 U/L (26-308) L Total Protein 6.3 G/DL (6.4-8.2) L Albumin 2.9 G/DL (3.4-5.0) L Globulin 3.4 g/dL Albumin/Globulin Ratio 0.9 (1.0-2.7) L Current Medications Medications (Trade) Dose Ordered Sig/Anthony Route PRN Reason Start Time Stop Time Status Last Admin Dose Admin Acetaminophen (Tylenol) 650 mg Q6H PRN ORAL Mild Pain/Temp > 100.5 07/16/19 22:15 08/15/19 22:14 07/19/19 10:17 Albuterol Sulfate (Proventil) 2.5 mg Q6HRT PRN HHN Shortness of Breath 07/17/19 16:45 07/22/19 16:44 07/17/19 16:50 Dextrose/Sodium Chloride 1,000 ml @ 125 mls/hr Q8H IV 07/17/19 12:45 08/16/19 12:44 07/19/19 12:52 Diphenhydramine HCl (Benadryl) 50 mg EVERY 4 HOURS PRN IVP Itching 07/16/19 22:15 08/15/19 22:14 07/19/19 09:30 Hydromorphone HCl (Dilaudid) 2 mg Q4H PRN IVP Severe Pain (Pain Scale 7-10) 07/16/19 22:15 07/23/19 22:14 07/19/19 09:29 Hydroxyurea (Hydrea) 500 mg TWICE A DAY ORAL 07/17/19 09:00 07/22/19 08:59 07/19/19 09:21 Levofloxacin (Levaquin) 750 mg DAILY ORAL 07/17/19 09:00 07/24/19 08:59 07/19/19 09:21 Methadone HCl (Methadone HCl) 60 mg Q6H ORAL 07/17/19 09:00 07/24/19 08:59 07/19/19 10:00 Alex Nash MD Jul 19, 2019 13:19
--- NOTE | 2019-07-19 13:27 | NUR ---
CASE MANAGEMENT:REVIEW 07/19/19 SI: SICKLE CELL CRISIS. CHEST PAIN. PNA 98.4 78 17 117/72 98% ON 3L/NC WBC+13.4 H/H-6.7/20.3 IS: IVF@125/HR METHADONE PO Q6HRS HYDREA PO BID IV DILAUDID Q4HRS PRN : TELEMETRY STATUS DCP: FROM HOME PLAN: PAIN MGMT AND HYDRATION
[2019-07-19] MEDS: Albuterol ud Inhalation HHN PRN (14:54)
--- NOTE | 2019-07-19 15:38 | NUR ---
HAND-OFF: Report given to Simeon CUBA. Pt remains stable.
[2019-07-19 16:00] VITALS: BP 110/64
--- NOTE | 2019-07-19 16:07 | General Progress Note ---
Assessment/Plan Assessment/Plan: Assessment - Sickle cell crisis - leukocytosis - abnormal LFT - negative U/S and hepatitis serologies, improved Recommendations - IVF - Follow LFT - hepatitis serologies - neg - abdominal ultrasound - s/p mimi - check CK -neg Subjective Allergies: Coded Allergies: PENTAMIDINE ISETHIONATE (Verified Allergy, Severe, palpitations, 08/27/17) AMPICILLIN (Verified Allergy, Unknown, hives, 01/05/18) Tolerated CEftriaxone 01/02/18 KETOROLAC (Verified Allergy, Unknown, 08/03/16) MORPHINE (Verified Allergy, Unknown, 08/03/16) PHENYTOIN (Verified Allergy, Unknown, 08/03/16) Subjective Feels OK no abdominal complaints LFT improved Objective Last 24 Hour Vital Signs Date Time Temp Pulse Resp B/P (MAP) Pulse Ox O2 Delivery O2 Flow Rate FiO2 07/19/19 15:02 78 20 99 Nasal Cannula 4.0 36 75 19 99 07/19/19 12:00 74 07/19/19 12:00 2.0 07/19/19 11:57 98.4 78 17 117/72 (87) 98 07/19/19 09:00 Room Air 07/19/19 08:00 84 18 97 Nasal Cannula 3.0 32 07/19/19 08:00 70 07/19/19 08:00 2.0 07/19/19 08:00 97.9 76 17 111/65 (80) 98 07/19/19 08:00 98 Nasal Cannula 3.0 32 07/19/19 05:50 98.4 07/19/19 04:00 2.0 07/19/19 04:00 98.4 87 17 111/65 (80) 98 07/19/19 04:00 86 07/19/19 03:26 98.6 07/19/19 00:00 76 07/19/19 00:00 2.0 07/19/19 00:00 98.6 85 18 115/69 (84) 95 07/18/19 21:00 Room Air 07/18/19 20:00 72 18 97 Nasal Cannula 3.0 32 07/18/19 20:00 95 Nasal Cannula 3.0 32 07/18/19 20:00 98.4 93 18 107/67 (80) 95 Intake and Output 07/18/19 07/19/19 19:00 07:00 Intake Total 120 ml 240 ml Output Total 450 ml 900 ml Balance -330 ml -660 ml Intake Oral 120 ml 240 ml Output Urine Total 450 ml 900 ml # Voids 6 Laboratory Tests 07/19/19 05:35: White Blood Count 13.4H, Red Blood Count 2.21L, Hemoglobin 6.7*L, Hematocrit 20.3L, Mean Corpuscular Volume 92, Mean Corpuscular Hemoglobin 30.2, Mean Corpuscular Hemoglobin Concent 32.8, Red Cell Distribution Width 16.6H, Platelet Count 310, Mean Platelet Volume 7.1, Neutrophils (%) (Auto) , Lymphocytes (%) (Auto) , Monocytes (%) (Auto) , Eosinophils (%) (Auto) , Basophils (%) (Auto) , Differential Total Cells Counted 100, Neutrophils % ( Manual) 77H, Lymphocytes % (Manual) 13L, Monocytes % (Manual) 8, Eosinophils % ( Manual) 1, Basophils % (Manual) 0, Band Neutrophils 1, Platelet Estimate Adequate, Platelet Morphology Normal, Hypochromasia 2+, Anisocytosis 2+, Sickle Cells OccasionalH, Sodium Level 137, Potassium Level 3.9, Chloride Level 105, Carbon Dioxide Level 27, Anion Gap 5, Blood Urea Nitrogen 18, Creatinine 1.0, Estimat Glomerular Filtration Rate > 60, Glucose Level 124H, Calcium Level 8.6, Total Bilirubin 0.6, Aspartate Amino Transf (AST/SGOT) 61H, Alanine Aminotransferase (ALT/SGPT) 97H, Alkaline Phosphatase 235H, Total Creatine Kinase < 7L, Total Protein 6.3L, Albumin 2.9L, Globulin 3.4, Albumin/Globulin Ratio 0.9L Height (Feet): 5 Height (Inches): 11.00 Weight (Pounds): 138 Objective Thin AA man NCAT, disconjugate gaze neck supple CTA RR Abd soft ND NT no edema Charlotte Shaffer MD Jul 19, 2019 16:07
--- NOTE | 2019-07-19 16:09 | General Progress Note ---
Assessment/Plan Problem List: (1) Chronic pain ICD Codes: G89.29 - Other chronic pain SNOMED: 64403162 (2) Sickle cell disease ICD Codes: D57.1 - Sickle-cell disease without crisis SNOMED: 739437100 (3) Seizure disorder ICD Codes: G40.909 - Epilepsy, unspecified, not intractable, without status epilepticus SNOMED: 644155480 (4) Pulmonary HTN ICD Codes: I27.2 - Other secondary pulmonary hypertension SNOMED: 03893251 (5) Intractable pain ICD Codes: R52 - Pain, unspecified SNOMED: 79465610 (6) Anemia ICD Codes: D64.9 - Anemia, unspecified SNOMED: 458026998 (7) Sickle cell crisis ICD Codes: D57.00 - Hb-SS disease with crisis, unspecified SNOMED: 598315754 Status: progressing Assessment/Plan: pain is improving needs iv fluids sickle cell crisis anemia is getting blood transfusion dc in am Subjective ROS Limited/Unobtainable: Yes Allergies: Coded Allergies: PENTAMIDINE ISETHIONATE (Verified Allergy, Severe, palpitations, 08/27/17) AMPICILLIN (Verified Allergy, Unknown, hives, 01/05/18) Tolerated CEftriaxone 01/02/18 KETOROLAC (Verified Allergy, Unknown, 08/03/16) MORPHINE (Verified Allergy, Unknown, 08/03/16) PHENYTOIN (Verified Allergy, Unknown, 08/03/16) Objective Last 24 Hour Vital Signs Date Time Temp Pulse Resp B/P (MAP) Pulse Ox O2 Delivery O2 Flow Rate FiO2 07/19/19 15:02 78 20 99 Nasal Cannula 4.0 36 75 19 99 07/19/19 12:00 74 07/19/19 12:00 2.0 07/19/19 11:57 98.4 78 17 117/72 (87) 98 07/19/19 09:00 Room Air 07/19/19 08:00 84 18 97 Nasal Cannula 3.0 32 07/19/19 08:00 70 07/19/19 08:00 2.0 07/19/19 08:00 97.9 76 17 111/65 (80) 98 07/19/19 08:00 98 Nasal Cannula 3.0 32 07/19/19 05:50 98.4 07/19/19 04:00 2.0 07/19/19 04:00 98.4 87 17 111/65 (80) 98 07/19/19 04:00 86 07/19/19 03:26 98.6 07/19/19 00:00 76 07/19/19 00:00 2.0 07/19/19 00:00 98.6 85 18 115/69 (84) 95 07/18/19 21:00 Room Air 07/18/19 20:00 72 18 97 Nasal Cannula 3.0 32 07/18/19 20:00 95 Nasal Cannula 3.0 32 07/18/19 20:00 98.4 93 18 107/67 (80) 95 Intake and Output 07/18/19 07/19/19 19:00 07:00 Intake Total 120 ml 240 ml Output Total 450 ml 900 ml Balance -330 ml -660 ml Intake Oral 120 ml 240 ml Output Urine Total 450 ml 900 ml # Voids 6 Laboratory Tests 07/19/19 05:35: White Blood Count 13.4H, Red Blood Count 2.21L, Hemoglobin 6.7*L, Hematocrit 20.3L, Mean Corpuscular Volume 92, Mean Corpuscular Hemoglobin 30.2, Mean Corpuscular Hemoglobin Concent 32.8, Red Cell Distribution Width 16.6H, Platelet Count 310, Mean Platelet Volume 7.1, Neutrophils (%) (Auto) , Lymphocytes (%) (Auto) , Monocytes (%) (Auto) , Eosinophils (%) (Auto) , Basophils (%) (Auto) , Differential Total Cells Counted 100, Neutrophils % ( Manual) 77H, Lymphocytes % (Manual) 13L, Monocytes % (Manual) 8, Eosinophils % ( Manual) 1, Basophils % (Manual) 0, Band Neutrophils 1, Platelet Estimate Adequate, Platelet Morphology Normal, Hypochromasia 2+, Anisocytosis 2+, Sickle Cells OccasionalH, Sodium Level 137, Potassium Level 3.9, Chloride Level 105, Carbon Dioxide Level 27, Anion Gap 5, Blood Urea Nitrogen 18, Creatinine 1.0, Estimat Glomerular Filtration Rate > 60, Glucose Level 124H, Calcium Level 8.6, Total Bilirubin 0.6, Aspartate Amino Transf (AST/SGOT) 61H, Alanine Aminotransferase (ALT/SGPT) 97H, Alkaline Phosphatase 235H, Total Creatine Kinase < 7L, Total Protein 6.3L, Albumin 2.9L, Globulin 3.4, Albumin/Globulin Ratio 0.9L Height (Feet): 5 Height (Inches): 11.00 Weight (Pounds): 138 Cardiovascular: normal rate Respiratory/Chest: lungs clear Griffin Recinos MD Jul 19, 2019 16:09
--- NOTE | 2019-07-19 18:18 | Cardiac Electrophysiology PN ---
Assessment/Plan Assessment/Plan 1. Chest pain. All troponins are negative, likely due to sickle cell anemia. He is on hydroxyurea, methadone, and Levaquin. Echocardiogram Nl EF. 2. Asthma. Proventil. 3. DVT of bilateral lower extremities. 4. Leukocytosis due to underlying infection versus reactive process. Antibiotics per ID team. 5. History of seizure disorder. 6. History of avascular necrosis of bilateral hips. 7. History of pulmonary hypertension. 8. Sickle cell anemia. Got 1 unit PRBC today AMANUEL RN Subjective Subjective Alert in NAD. Has generalized body ache. Had 1 unit PRBC for Hb 6.7 Objective Last 24 Hour Vital Signs Date Time Temp Pulse Resp B/P (MAP) Pulse Ox O2 Delivery O2 Flow Rate FiO2 07/19/19 16:00 98.4 90 17 110/64 (79) 96 07/19/19 16:00 2.0 07/19/19 15:57 88 07/19/19 15:02 78 20 99 Nasal Cannula 4.0 36 75 19 99 07/19/19 12:00 74 07/19/19 12:00 2.0 07/19/19 11:57 98.4 78 17 117/72 (87) 98 07/19/19 09:00 Room Air 07/19/19 08:00 84 18 97 Nasal Cannula 3.0 32 07/19/19 08:00 70 07/19/19 08:00 2.0 07/19/19 08:00 97.9 76 17 111/65 (80) 98 07/19/19 08:00 98 Nasal Cannula 3.0 32 07/19/19 05:50 98.4 07/19/19 04:00 2.0 07/19/19 04:00 98.4 87 17 111/65 (80) 98 07/19/19 04:00 86 07/19/19 03:26 98.6 07/19/19 00:00 76 07/19/19 00:00 2.0 07/19/19 00:00 98.6 85 18 115/69 (84) 95 07/18/19 21:00 Room Air 07/18/19 20:00 72 18 97 Nasal Cannula 3.0 32 07/18/19 20:00 95 Nasal Cannula 3.0 32 07/18/19 20:00 98.4 93 18 107/67 (80) 95 Intake and Output 07/18/19 07/19/19 19:00 07:00 Intake Total 120 ml 240 ml Output Total 450 ml 900 ml Balance -330 ml -660 ml Intake Oral 120 ml 240 ml Output Urine Total 450 ml 900 ml # Voids 6 Laboratory Tests Test 07/19/19 05:35 White Blood Count 13.4 K/UL (4.8-10.8) H Red Blood Count 2.21 M/UL (4.70-6.10) L Hemoglobin 6.7 G/DL (14.2-18.0) *L Hematocrit 20.3 % (42.0-52.0) L Mean Corpuscular Volume 92 FL (80-99) Mean Corpuscular Hemoglobin 30.2 PG (27.0-31.0) Mean Corpuscular Hemoglobin Concent 32.8 G/DL (32.0-36.0) Red Cell Distribution Width 16.6 % (11.6-14.8) H Platelet Count 310 K/UL (150-450) Mean Platelet Volume 7.1 FL (6.5-10.1) Neutrophils (%) (Auto) % (45.0-75.0) Lymphocytes (%) (Auto) % (20.0-45.0) Monocytes (%) (Auto) % (1.0-10.0) Eosinophils (%) (Auto) % (0.0-3.0) Basophils (%) (Auto) % (0.0-2.0) Differential Total Cells Counted 100 Neutrophils % (Manual) 77 % (45-75) H Lymphocytes % (Manual) 13 % (20-45) L Monocytes % (Manual) 8 % (1-10) Eosinophils % (Manual) 1 % (0-3) Basophils % (Manual) 0 % (0-2) Band Neutrophils 1 % (0-8) Platelet Estimate Adequate Platelet Morphology Normal Hypochromasia 2+ Anisocytosis 2+ Sickle Cells Occasional H Sodium Level 137 MMOL/L (136-145) Potassium Level 3.9 MMOL/L (3.5-5.1) Chloride Level 105 MMOL/L (98-107) Carbon Dioxide Level 27 MMOL/L (21-32) Anion Gap 5 mmol/L (5-15) Blood Urea Nitrogen 18 mg/dL (7-18) Creatinine 1.0 MG/DL (0.55-1.30) Estimat Glomerular Filtration Rate > 60 mL/min (>60) Glucose Level 124 MG/DL (74-106) H Calcium Level 8.6 MG/DL (8.5-10.1) Total Bilirubin 0.6 MG/DL (0.2-1.0) Aspartate Amino Transf (AST/SGOT) 61 U/L (15-37) H Alanine Aminotransferase (ALT/SGPT) 97 U/L (12-78) H Alkaline Phosphatase 235 U/L (46-116) H Total Creatine Kinase < 7 U/L (26-308) L Total Protein 6.3 G/DL (6.4-8.2) L Albumin 2.9 G/DL (3.4-5.0) L Globulin 3.4 g/dL Albumin/Globulin Ratio 0.9 (1.0-2.7) L Objective HEAD AND NECK: No JVD. LUNGS: Clear. CARDIOVASCULAR: Regular S1 and S2 with no gallop or murmur. ABDOMEN: Soft. EXTREMITIES: No pitting edema. Thanh Patten MD Jul 19, 2019 18:18
--- NOTE | 2019-07-19 19:19 | NUR ---
Report from Gildardo RN. She endorsed to me the plan of care.
[2019-07-19 20:00] VITALS: BP 110/77
[2019-07-19] MEDS ORDERED: Albuterol ud Inhalation HHN PRN (20:51)
--- NOTE | 2019-07-19 21:25 | NUR ---
Report given to Kaitlynn RN at bedside. Patient was transferred safely to [address] [place] [address]. Endorsed plan of care to Kaitlynn RN
[2019-07-20] VITALS: BP_SYST 109; BP_SYST 119; BP_DIAS 73; BP_DIAS 78
[2019-07-20] MEDS: DiphenhydrAMINE 50mg/ml Inj IVP PRN ×6 (02:35→22:36)
[2019-07-20] MEDS: D5 1/2NS 1,000 ML IV SCH ×4 (02:42→17:50)
[2019-07-20 04:00] VITALS: BP 109/73
--- NOTE | 2019-07-20 07:10 | NUR ---
NURSE NOTES: Received patient in bed awake. With O2 via NC at 6LPM. No SOB or acute distress. With right portacath intact, dressing intact, no s/s of infection. On pain mgnt. HOB elevated. Bed locked in lowest position. Call light within reach. will continue plan of care.
[2019-07-20 07:25] LABS: HEMATOCRIT 22.8 % (42.0-52.0); HEMOGLOBIN 7.8 G/DL (14.2-18.0); MEAN CORPUSCULAR VOLUME 90 FL (80-99); PLATELET COUNT 351 K/UL (150-450); RED BLOOD COUNT 2.53 M/UL (4.70-6.10); RED CELL DISTRIBUTION WIDTH 16.4 % (11.6-14.8); WHITE BLOOD COUNT 13.3 K/UL (4.8-10.8)
--- NOTE | 2019-07-20 07:45 | NUR ---
HAND-OFF: Report given to GRISELDA AGUERO .
[2019-07-20 08:00] VITALS: BP 117/80
[2019-07-20] MEDS: Levofloxacin 750mg tab ORAL SCH (09:10)
[2019-07-20] MEDS: Hydroxyurea 500mg cap ORAL SCH ×2 (09:10→17:27)
--- NOTE | 2019-07-20 09:56 | Hematology/Onc Progress Note ---
Assessment/Plan Assessment/Plan ASSESSMENT/Recs # Sickle cell disease with crisis presentation with total body pain as well as cp --> IVF, benadryl, dilaudid --> No evidence of hemolysis is noted, peripheral smear has been reviewed. --> Hgb goal >7. Transfuse prn. --> Epogen or iron at this time is not particularly indicated --> Medications have been reviewed --> hgb trend 8-->7.2-->7.8 --> 07/20: Stable for dc # Leukocytosis. Likely related to underlying infection versus reactive process --> have reviewed peripheral smear and bandemia/neutrophilia noted --> continue antibiotics if they have been started by ID team --> monitor for resolution --> trend wbc 21-->17 # DVT of the bilateral lower ext --> hold off on anticoagulation at this time --> cards aware # History of seizure disorder, continue gabapentin as above. # Pulmonary hypertension. 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 Greatly appreciate consultation! Subjective Constitutional: Denies: no symptoms, chills, fever, malaise, weakness, other HEENT: Denies: no symptoms, eye pain, blurred vision, tearing, double vision, ear pain, ear discharge, nose pain, nose congestion, throat pain, throat swelling, mouth pain, mouth swelling, other Cardiovascular: Denies: no symptoms, chest pain, edema, irregular heart rate, lightheadedness, palpitations, syncope, other Respiratory: Denies: no symptoms, cough, shortness of breath, SOB with excertion, SOB at rest, sputum, wheezing, other Gastrointestinal/Abdominal: Denies: no symptoms, abdomen distended, abdominal pain, black stools, tarry stools, blood in stool, constipated, diarrhea, difficulty swallowing, nausea, poor appetite, poor fluid intake, rectal bleeding , vomiting, other Genitourinary: Denies: no symptoms, burning, discharge, frequency, flank pain, hematuria, incontinence, pain, urgency, other 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: Denies: no symptoms, anxiety, depressed, emotional problems, headache, numbness, paresthesia, pre-existing deficit, seizure, tingling, tremors, weakness, other Endocrine: Denies: no symptoms, excessive sweating, flushing, intolerance to cold, intolerance to heat, increased hunger, increased thirst, increased urine, unexplained weight gain, unexplained weight loss, other Allergies: Coded Allergies: PENTAMIDINE ISETHIONATE (Verified Allergy, Severe, palpitations, 08/27/17) AMPICILLIN (Verified Allergy, Unknown, hives, 01/05/18) Tolerated CEftriaxone 01/02/18 KETOROLAC (Verified Allergy, Unknown, 08/03/16) MORPHINE (Verified Allergy, Unknown, 08/03/16) PHENYTOIN (Verified Allergy, Unknown, 08/03/16) Subjective 07/18/19: no bleeding, cbc is pending, continues to complain of cp 07/19: no bleeding, crisis appears better, refusing labs, otherwise feeling better 07/20: is on 6l nc, no bleeding or night sweats, no f/c, ok for dc Objective Objective Current Medications Medications (Trade) Dose Ordered Sig/Anthony Route PRN Reason Start Time Stop Time Status Last Admin Dose Admin Acetaminophen (Tylenol) 650 mg Q6H PRN ORAL Mild Pain/Temp > 100.5 07/19/19 20:51 08/18/19 20:50 07/20/19 09:19 Albuterol Sulfate (Proventil) 2.5 mg Q6HRT PRN HHN Shortness of Breath 07/19/19 20:51 07/24/19 20:50 Dextrose/Sodium Chloride 1,000 ml @ 125 mls/hr Q8H IV 07/19/19 20:51 08/18/19 20:50 07/20/19 02:42 Diphenhydramine HCl (Benadryl) 50 mg Q4H PRN IVP Itching 07/19/19 20:51 08/18/19 20:50 07/20/19 06:35 Hydromorphone HCl (Dilaudid) 2 mg Q4H PRN IVP Severe Pain (Pain Scale 7-10) 07/19/19 20:51 07/26/19 20:50 07/20/19 06:35 Hydroxyurea (Hydrea) 500 mg TWICE A DAY ORAL 07/20/19 09:00 07/22/19 08:59 07/20/19 09:10 Levofloxacin (Levaquin) 750 mg DAILY ORAL 07/20/19 09:00 07/24/19 08:59 07/20/19 09:10 Methadone HCl (Methadone HCl) 60 mg Q6H ORAL 07/19/19 21:00 07/24/19 08:59 07/20/19 09:11 Last 24 Hour Vital Signs Date Time Temp Pulse Resp B/P (MAP) Pulse Ox O2 Delivery O2 Flow Rate FiO2 07/20/19 08:00 97.8 78 18 117/80 (92) 100 07/20/19 04:00 97.9 78 17 109/73 (85) 99 07/20/19 00:00 97.9 78 17 109/73 (85) 99 07/19/19 21:39 98.9 07/19/19 21:00 Room Air 07/19/19 20:00 98.9 77 16 110/77 (88) 96 07/19/19 20:00 77 07/19/19 20:00 6.0 07/19/19 19:43 78 18 98 Nasal Cannula 3.0 32 07/19/19 19:43 98 Nasal Cannula 3.0 32 07/19/19 19:00 98.4 07/19/19 16:00 98.4 90 17 110/64 (79) 96 07/19/19 16:00 2.0 07/19/19 15:57 88 07/19/19 15:02 78 20 99 Nasal Cannula 4.0 36 75 19 99 07/19/19 12:00 74 07/19/19 12:00 2.0 07/19/19 11:57 98.4 78 17 117/72 (87) 98 07/19/19 09:00 Room Air 07/19/19 08:00 84 18 97 Nasal Cannula 3.0 32 07/19/19 08:00 70 07/19/19 08:00 2.0 07/19/19 08:00 97.9 76 17 111/65 (80) 98 07/19/19 08:00 98 Nasal Cannula 3.0 32 07/19/19 04:00 2.0 07/19/19 04:00 98.4 87 17 111/65 (80) 98 07/19/19 04:00 86 07/19/19 03:26 98.6 07/19/19 00:00 76 07/19/19 00:00 2.0 07/19/19 00:00 98.6 85 18 115/69 (84) 95 07/18/19 21:00 Room Air 07/18/19 20:00 72 18 97 Nasal Cannula 3.0 32 07/18/19 20:00 95 Nasal Cannula 3.0 32 07/18/19 20:00 98.4 93 18 107/67 (80) 95 07/18/19 16:00 2.0 07/18/19 16:00 81 07/18/19 16:00 99.1 83 18 102/60 (74) 95 07/18/19 14:06 93 Nasal Cannula 3.0 32 07/18/19 14:05 79 20 95 Nasal Cannula 3.0 32 07/18/19 12:00 86 07/18/19 12:00 2.0 07/18/19 11:26 100.0 89 20 105/66 (79) 97 Intake and Output 07/19/19 07/20/19 19:00 07:00 Intake Total 480 ml 750 ml Output Total 450 ml 1075 ml Balance 30 ml -325 ml Intake Oral 480 ml IV Total 750 ml Output Urine Total 450 ml 1075 ml Labs Test 07/18/19 08:16 07/18/19 10:00 07/19/19 05:35 07/20/19 05:00 Sodium Level 135 MMOL/L (136-145) 137 MMOL/L (136-145) Potassium Level 4.3 MMOL/L (3.5-5.1) 3.9 MMOL/L (3.5-5.1) Chloride Level 103 MMOL/L (98-107) 105 MMOL/L (98-107) Carbon Dioxide Level 30 MMOL/L (21-32) 27 MMOL/L (21-32) Anion Gap 2 mmol/L (5-15) 5 mmol/L (5-15) Blood Urea Nitrogen 16 mg/dL (7-18) 18 mg/dL (7-18) Creatinine 1.0 MG/DL (0.55-1.30) 1.0 MG/DL (0.55-1.30) Estimat Glomerular Filtration Rate > 60 mL/min (>60) > 60 mL/min (>60) Glucose Level 126 MG/DL (74-106) 124 MG/DL (74-106) Calcium Level 8.7 MG/DL (8.5-10.1) 8.6 MG/DL (8.5-10.1) Troponin I 0.000 ng/mL (0.000-0.056) White Blood Count 13.4 K/UL (4.8-10.8) 13.3 K/UL (4.8-10.8) Red Blood Count 2.21 M/UL (4.70-6.10) 2.53 M/UL (4.70-6.10) Hemoglobin 6.7 G/DL (14.2-18.0) 7.8 G/DL (14.2-18.0) Hematocrit 20.3 % (42.0-52.0) 22.8 % (42.0-52.0) Mean Corpuscular Volume 92 FL (80-99) 90 FL (80-99) Mean Corpuscular Hemoglobin 30.2 PG (27.0-31.0) 30.7 PG (27.0-31.0) Mean Corpuscular Hemoglobin Concent 32.8 G/DL (32.0-36.0) 34.1 G/DL (32.0-36.0) Red Cell Distribution Width 16.6 % (11.6-14.8) 16.4 % (11.6-14.8) Platelet Count 310 K/UL (150-450) 351 K/UL (150-450) Mean Platelet Volume 7.1 FL (6.5-10.1) 7.0 FL (6.5-10.1) Neutrophils (%) (Auto) % (45.0-75.0) % (45.0-75.0) Lymphocytes (%) (Auto) % (20.0-45.0) % (20.0-45.0) Monocytes (%) (Auto) % (1.0-10.0) % (1.0-10.0) Eosinophils (%) (Auto) % (0.0-3.0) % (0.0-3.0) Basophils (%) (Auto) % (0.0-2.0) % (0.0-2.0) Differential Total Cells Counted 100 100 Neutrophils % (Manual) 77 % (45-75) 73 % (45-75) Lymphocytes % (Manual) 13 % (20-45) 17 % (20-45) Monocytes % (Manual) 8 % (1-10) 7 % (1-10) Eosinophils % (Manual) 1 % (0-3) 3 % (0-3) Basophils % (Manual) 0 % (0-2) 0 % (0-2) Band Neutrophils 1 % (0-8) 0 % (0-8) Platelet Estimate Adequate Adequate Platelet Morphology Normal Hypochromasia 2+ 1+ Anisocytosis 2+ 1+ Sickle Cells Occasional Rare Total Bilirubin 0.6 MG/DL (0.2-1.0) Aspartate Amino Transf (AST/SGOT) 61 U/L (15-37) Alanine Aminotransferase (ALT/SGPT) 97 U/L (12-78) Alkaline Phosphatase 235 U/L (46-116) Total Creatine Kinase < 7 U/L (26-308) Total Protein 6.3 G/DL (6.4-8.2) Albumin 2.9 G/DL (3.4-5.0) Globulin 3.4 g/dL Albumin/Globulin Ratio 0.9 (1.0-2.7) Giant Platelets Occasional Height (Feet): 5 Height (Inches): 11.00 Weight (Pounds): 138 Objective PHYSICAL EXAMINATION: VITAL SIGNS: have been reviewed GENERAL: The patient is a well-developed and well nourished male, in no apparent distress. HEENT: Eyes, pupils are equal and responsive to light and accommodation. Extraocular movements are intact. NECK: Supple without lymphadenopathy. CHEST: Decreased crackles in bilateral bases. Otherwise, clear to auscultation without wheezes or rales. CARDIOVASCULAR: Regular rhythm and rate ABDOMEN: Soft, nontender, and nondistended. Positive bowel sounds. No evidence of hepatosplenomegaly. Currently, no rebound or guarding noted EXTREMITIES: Negative for clubbing, cyanosis, or edema. RECTAL/GENITAL: Refused. Marco Dutton MD Jul 20, 2019 09:56
--- NOTE | 2019-07-20 10:20 | NUR ---
NURSE NOTES: Patient seen by Dr Dutton, may stay one more day as per MD, with orders for CXR. For pulmo consult, RN made Dr Recinos aware, awaiting name of MD for pulmo consult.
--- NOTE | 2019-07-20 11:47 | NUR ---
RADIOLOGY DEPT., [facility] X-RAY DONE.-P.DYE
[2019-07-20 12:00] VITALS: BP 116/81
--- NOTE | 2019-07-20 12:00 | Diagnostic Imaging Report ---
EXAM: XR Chest, 1 View CLINICAL HISTORY: ABN CHST TECHNIQUE: Frontal view of the chest. COMPARISON: Chest radiograph On 07/16/2019 FINDINGS: Hardware: Right-sided Port-A-Cath terminates in the region of the SVC. Lungs/pleura: Increased bibasilar opacities and patchy opacities throughout the right lung and left midlung. Probable small bilateral pleural effusions. Heart/mediastinum: Stable mild enlargement of the cardiac silhouette. Soft tissues: Unremarkable. Bones: No acute fracture. Upper abdomen: Normal. Other: IVC filter partially visualized. IMPRESSION: Increased bibasilar opacities and patchy opacities throughout the right lung and left midlung which may represent pulmonary edema and atelectasis versus infectious/inflammatory process. Probable small bilateral pleural effusions.
--- NOTE | 2019-07-20 14:17 | Pulmonology Progress Note ---
Assessment/Plan Assessment/Plan Pulmonary Consultation HPI Patient is a 43 year old man with Past Medical History of Asthma, HTN, Sickle Cell Disease, admitted with exacerbation of SCD with complaints of diffuse body pain, cough, congestion for several days. No current vomiting,has had intermittent nausea Less chest pain as well Less cough On Levaquin possible chest infection Denies any recent travel Allergies: PENTAMIDINE ISETHIONATE AMPICILLIN Tolerated CEftriaxone 01/02/18 KETOROLAC MORPHINE PHENYTOIN Past Medical History: Sickle cell disease, Asthma, Seizure history, bilateral AVN hips, Hypertension All Other Systems: negative except mentioned in HPI Physical Exam Vital Signs Noted General Appearance: no apparent distress, on RA Head: normocephalic, atraumatic Eyes: bilateral eye PERRL ENT: EOM grossly intact, normal pharynx Neck: supple Respiratory: no respiratory distress, no retraction, no accessory muscle use, reduced basal BS Cardiovascular: regular rate, rhythm, HS1, HS2 normal Gastrointestinal: non tender, soft Musculoskeletal: normal inspection Neurologic: alert Skin: no rash Lymphatic: no adenopathy Impression: Sickle cell disease with crisis s/p Transfusion, IVF Possible Chest infection Atelectasis Possible volume overload Plan - Continue current antibiotics - HHN - Diurese PRN - Pain Mx - PPX - Monitor labs - PPX - If remains on low level O2 OK to DC with PO Levaquin, bronchodilators, incentive spirometer - Has home O2 Labs Test 07/16/19 13:00 White Blood Count 21.5 K/UL (4.8-10.8) Red Blood Count 2.71 M/UL (4.70-6.10) Hemoglobin 8.1 G/DL (14.2-18.0) Hematocrit 25.0 % (42.0-52.0) Mean Corpuscular Volume 93 FL (80-99) Mean Corpuscular Hemoglobin 29.9 PG (27.0-31.0) Mean Corpuscular Hemoglobin Concent 32.3 G/DL (32.0-36.0) Red Cell Distribution Width 16.3 % (11.6-14.8) Platelet Count 400 K/UL (150-450) Mean Platelet Volume 6.4 FL (6.5-10.1) Neutrophils (%) (Auto) % (45.0-75.0) Lymphocytes (%) (Auto) % (20.0-45.0) Monocytes (%) (Auto) % (1.0-10.0) Eosinophils (%) (Auto) % (0.0-3.0) Basophils (%) (Auto) % (0.0-2.0) Sodium Level 134 MMOL/L (136-145) Potassium Level 3.8 MMOL/L (3.5-5.1) Chloride Level 100 MMOL/L (98-107) Carbon Dioxide Level 29 MMOL/L (21-32) Anion Gap 5 mmol/L (5-15) Blood Urea Nitrogen 26 mg/dL (7-18) Creatinine 1.2 MG/DL (0.55-1.30) Estimat Glomerular Filtration Rate > 60 mL/min (>60) Glucose Level 135 MG/DL (74-106) Calcium Level 9.0 MG/DL (8.5-10.1) Total Bilirubin 1.0 MG/DL (0.2-1.0) Aspartate Amino Transf (AST/SGOT) 150 U/L (15-37) Alanine Aminotransferase (ALT/SGPT) 192 U/L (12-78) Alkaline Phosphatase 283 U/L (46-116) Total Creatine Kinase < 7 U/L (26-308) Troponin I 0.000 ng/mL (0.000-0.056) Pro-B-Type Natriuretic Peptide 60 pg/mL (0-125) Total Protein 7.1 G/DL (6.4-8.2) Albumin 3.6 G/DL (3.4-5.0) Globulin 3.5 g/dL Albumin/Globulin Ratio 1.0 (1.0-2.7) Lipase 36 U/L (73-393) Urine Opiates Screen Negative (NEGATIVE) Urine Barbiturates Screen Negative (NEGATIVE) Phencyclidine (PCP) Screen Negative (NEGATIVE) Urine Amphetamines Screen Negative (NEGATIVE) Urine Benzodiazepines Screen Negative (NEGATIVE) Urine Cocaine Screen Negative (NEGATIVE) Urine Marijuana (THC) Screen Negative (NEGATIVE) EKG: Rhythm: NSR ST Segments: other - Specific ST and T wave changes Chest X-Ray: no consolidation, no pneumothorax, other - Patchy markings bilaterally question interstitial disease versus fluid versus pneumonia Subjective ROS Limited/Unobtainable: No Allergies: Coded Allergies: PENTAMIDINE ISETHIONATE (Verified Allergy, Severe, palpitations, 08/27/17) AMPICILLIN (Verified Allergy, Unknown, hives, 01/05/18) Tolerated CEftriaxone 01/02/18 KETOROLAC (Verified Allergy, Unknown, 08/03/16) MORPHINE (Verified Allergy, Unknown, 08/03/16) PHENYTOIN (Verified Allergy, Unknown, 08/03/16) Objective Last 24 Hour Vital Signs Date Time Temp Pulse Resp B/P (MAP) Pulse Ox O2 Delivery O2 Flow Rate FiO2 07/20/19 12:00 98.2 75 18 116/81 (93) 100 07/20/19 09:00 Room Air 07/20/19 08:00 97.8 78 18 117/80 (92) 100 07/20/19 04:00 97.9 78 17 109/73 (85) 99 07/20/19 00:00 97.9 78 17 109/73 (85) 99 07/19/19 21:39 98.9 07/19/19 21:00 Room Air 07/19/19 20:00 98.9 77 16 110/77 (88) 96 07/19/19 20:00 77 07/19/19 20:00 6.0 07/19/19 19:43 78 18 98 Nasal Cannula 3.0 32 07/19/19 19:43 98 Nasal Cannula 3.0 32 07/19/19 19:00 98.4 07/19/19 16:00 98.4 90 17 110/64 (79) 96 07/19/19 16:00 2.0 07/19/19 15:57 88 07/19/19 15:02 78 20 99 Nasal Cannula 4.0 36 75 19 99 Intake and Output 07/19/19 07/20/19 19:00 07:00 Intake Total 480 ml 750 ml Output Total 450 ml 1075 ml Balance 30 ml -325 ml Intake Oral 480 ml IV Total 750 ml Output Urine Total 450 ml 1075 ml Laboratory Tests 07/20/19 05:00: White Blood Count 13.3H, Red Blood Count 2.53L, Hemoglobin 7.8L, Hematocrit 22.8L, Mean Corpuscular Volume 90, Mean Corpuscular Hemoglobin 30.7, Mean Corpuscular Hemoglobin Concent 34.1, Red Cell Distribution Width 16.4H, Platelet Count 351, Mean Platelet Volume 7.0, Neutrophils (%) (Auto) , Lymphocytes (%) (Auto) , Monocytes (%) (Auto) , Eosinophils (%) (Auto) , Basophils (%) (Auto) , Differential Total Cells Counted 100, Neutrophils % ( Manual) 73, Lymphocytes % (Manual) 17L, Monocytes % (Manual) 7, Eosinophils % ( Manual) 3, Basophils % (Manual) 0, Band Neutrophils 0, Platelet Estimate Adequate, Platelet Morphology , Giant Platelets Occasional, Hypochromasia 1+, Anisocytosis 1+, Sickle Cells RareH Current Medications Medications (Trade) Dose Ordered Sig/Anthony Route PRN Reason Start Time Stop Time Status Last Admin Dose Admin Acetaminophen (Tylenol) 650 mg Q6H PRN ORAL Mild Pain/Temp > 100.5 07/19/19 20:51 08/18/19 20:50 07/20/19 09:19 Albuterol Sulfate (Proventil) 2.5 mg Q6HRT PRN HHN Shortness of Breath 07/19/19 20:51 07/24/19 20:50 Dextrose/Sodium Chloride 1,000 ml @ 125 mls/hr Q8H IV 07/19/19 20:51 08/18/19 20:50 07/20/19 13:01 Diphenhydramine HCl (Benadryl) 50 mg Q4H PRN IVP Itching 07/19/19 20:51 08/18/19 20:50 07/20/19 10:41 Hydromorphone HCl (Dilaudid) 2 mg Q4H PRN IVP Severe Pain (Pain Scale 7-10) 07/19/19 20:51 07/26/19 20:50 07/20/19 10:41 Hydroxyurea (Hydrea) 500 mg TWICE A DAY ORAL 07/20/19 09:00 07/22/19 08:59 07/20/19 09:10 Levofloxacin (Levaquin) 750 mg DAILY ORAL 07/20/19 09:00 07/24/19 08:59 07/20/19 09:10 Methadone HCl (Methadone HCl) 60 mg Q6H ORAL 07/19/19 21:00 07/24/19 08:59 07/20/19 09:11 Artie Finnegan MD Jul 20, 2019 14:17
--- NOTE | 2019-07-20 14:43 | Infectious Diseases Prog Note ---
Assessment/Plan Assessment/Plan A; Sepsis Leukocytosis improving Pneumonia Sickle cell crisis Elevated transaminase Penicillin allergy Avascular necrosis of hips s/p cholecystectomy P: Continue Levaquin Subjective ROS Limited/Unobtainable: Yes Constitutional: Reports: no symptoms Respiratory: Reports: productive cough Cardiovascular: Reports: no symptoms Gastrointestinal/Abdominal: Reports: no symptoms Genitourinary: Reports: no symptoms Hematologic: Reports: other - had blood transfusion Musculoskeletal: Reports: pain Allergies: Coded Allergies: PENTAMIDINE ISETHIONATE (Verified Allergy, Severe, palpitations, 08/27/17) AMPICILLIN (Verified Allergy, Unknown, hives, 01/05/18) Tolerated CEftriaxone 01/02/18 KETOROLAC (Verified Allergy, Unknown, 08/03/16) MORPHINE (Verified Allergy, Unknown, 08/03/16) PHENYTOIN (Verified Allergy, Unknown, 08/03/16) Objective Vital Signs Last 24 Hour Vital Signs Date Time Temp Pulse Resp B/P (MAP) Pulse Ox O2 Delivery O2 Flow Rate FiO2 07/20/19 12:00 98.2 75 18 116/81 (93) 100 07/20/19 09:00 Room Air 07/20/19 08:00 97.8 78 18 117/80 (92) 100 07/20/19 04:00 97.9 78 17 109/73 (85) 99 07/20/19 00:00 97.9 78 17 109/73 (85) 99 07/19/19 21:39 98.9 07/19/19 21:00 Room Air 07/19/19 20:00 98.9 77 16 110/77 (88) 96 07/19/19 20:00 77 07/19/19 20:00 6.0 07/19/19 19:43 78 18 98 Nasal Cannula 3.0 32 07/19/19 19:43 98 Nasal Cannula 3.0 32 07/19/19 19:00 98.4 07/19/19 16:00 98.4 90 17 110/64 (79) 96 07/19/19 16:00 2.0 07/19/19 15:57 88 07/19/19 15:02 78 20 99 Nasal Cannula 4.0 36 75 19 99 Height (Feet): 5 Height (Inches): 11.00 Weight (Pounds): 138 General Appearance: no acute distress HEENT: mucous membranes moist Respiratory/Chest: lungs clear Cardiovascular: normal rate Abdomen: soft, non tender Extremities: no edema 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: alert, oriented x 3, responsive Laboratory Tests Test 07/20/19 05:00 White Blood Count 13.3 K/UL (4.8-10.8) H Red Blood Count 2.53 M/UL (4.70-6.10) L Hemoglobin 7.8 G/DL (14.2-18.0) L Hematocrit 22.8 % (42.0-52.0) L Mean Corpuscular Volume 90 FL (80-99) Mean Corpuscular Hemoglobin 30.7 PG (27.0-31.0) Mean Corpuscular Hemoglobin Concent 34.1 G/DL (32.0-36.0) Red Cell Distribution Width 16.4 % (11.6-14.8) H Platelet Count 351 K/UL (150-450) Mean Platelet Volume 7.0 FL (6.5-10.1) Neutrophils (%) (Auto) % (45.0-75.0) Lymphocytes (%) (Auto) % (20.0-45.0) Monocytes (%) (Auto) % (1.0-10.0) Eosinophils (%) (Auto) % (0.0-3.0) Basophils (%) (Auto) % (0.0-2.0) Differential Total Cells Counted 100 Neutrophils % (Manual) 73 % (45-75) Lymphocytes % (Manual) 17 % (20-45) L Monocytes % (Manual) 7 % (1-10) Eosinophils % (Manual) 3 % (0-3) Basophils % (Manual) 0 % (0-2) Band Neutrophils 0 % (0-8) Platelet Estimate Adequate Platelet Morphology Giant Platelets Occasional Hypochromasia 1+ Anisocytosis 1+ Sickle Cells Rare H Current Medications Medications (Trade) Dose Ordered Sig/Anthony Route PRN Reason Start Time Stop Time Status Last Admin Dose Admin Acetaminophen (Tylenol) 650 mg Q6H PRN ORAL Mild Pain/Temp > 100.5 07/19/19 20:51 08/18/19 20:50 07/20/19 09:19 Albuterol Sulfate (Proventil) 2.5 mg Q6HRT PRN HHN Shortness of Breath 07/19/19 20:51 07/24/19 20:50 Dextrose/Sodium Chloride 1,000 ml @ 125 mls/hr Q8H IV 07/19/19 20:51 08/18/19 20:50 07/20/19 13:01 Diphenhydramine HCl (Benadryl) 50 mg Q4H PRN IVP Itching 07/19/19 20:51 08/18/19 20:50 07/20/19 14:41 Hydromorphone HCl (Dilaudid) 2 mg Q4H PRN IVP Severe Pain (Pain Scale 7-10) 07/19/19 20:51 07/26/19 20:50 07/20/19 14:41 Hydroxyurea (Hydrea) 500 mg TWICE A DAY ORAL 07/20/19 09:00 07/22/19 08:59 07/20/19 09:10 Levofloxacin (Levaquin) 750 mg DAILY ORAL 07/20/19 09:00 07/24/19 08:59 07/20/19 09:10 Methadone HCl (Methadone HCl) 60 mg Q6H ORAL 07/19/19 21:00 07/24/19 08:59 07/20/19 14:41 Alex Nash MD Jul 20, 2019 14:43
[2019-07-20] MEDS: Albuterol/Ipratropium 3ml neb HHN SCH ×3 (15:00→23:00)
[2019-07-20 16:00] VITALS: BP_SYST 105; BP_SYST 120; BP_DIAS 73; BP_DIAS 78
[2019-07-20] MEDS ORDERED: D5 1/2NS 1000ml IV ONE (16:50)
--- NOTE | 2019-07-20 18:40 | General Progress Note ---
Assessment/Plan Problem List: (1) Chronic pain ICD Codes: G89.29 - Other chronic pain SNOMED: 52948418 (2) Sickle cell disease ICD Codes: D57.1 - Sickle-cell disease without crisis SNOMED: 397085080 (3) Seizure disorder ICD Codes: G40.909 - Epilepsy, unspecified, not intractable, without status epilepticus SNOMED: 941113441 (4) Pulmonary HTN ICD Codes: I27.2 - Other secondary pulmonary hypertension SNOMED: 28986950 (5) Intractable pain ICD Codes: R52 - Pain, unspecified SNOMED: 08043001 (6) Anemia ICD Codes: D64.9 - Anemia, unspecified SNOMED: 701444020 (7) Sickle cell crisis ICD Codes: D57.00 - Hb-SS disease with crisis, unspecified SNOMED: 381367149 Status: progressing Assessment/Plan: pain is improving decrease iv fluids fluid overload consulted dr cage sickle cell crisis Subjective Respiratory: Reports: shortness of breath Allergies: Coded Allergies: PENTAMIDINE ISETHIONATE (Verified Allergy, Severe, palpitations, 08/27/17) AMPICILLIN (Verified Allergy, Unknown, hives, 01/05/18) Tolerated CEftriaxone 01/02/18 KETOROLAC (Verified Allergy, Unknown, 08/03/16) MORPHINE (Verified Allergy, Unknown, 08/03/16) PHENYTOIN (Verified Allergy, Unknown, 08/03/16) Objective Last 24 Hour Vital Signs Date Time Temp Pulse Resp B/P (MAP) Pulse Ox O2 Delivery O2 Flow Rate FiO2 07/20/19 16:00 98.0 82 18 120/78 (92) 100 07/20/19 12:00 98.2 75 18 116/81 (93) 100 07/20/19 09:00 Room Air 07/20/19 08:18 78 18 98 Nasal Cannula 3.0 32 07/20/19 08:18 100 Nasal Cannula 3.0 32 07/20/19 08:00 97.8 78 18 117/80 (92) 100 07/20/19 04:00 97.9 78 17 109/73 (85) 99 07/20/19 00:00 97.9 78 17 109/73 (85) 99 07/19/19 21:39 98.9 07/19/19 21:00 Room Air 07/19/19 20:00 98.9 77 16 110/77 (88) 96 07/19/19 20:00 77 07/19/19 20:00 6.0 07/19/19 19:43 78 18 98 Nasal Cannula 3.0 32 07/19/19 19:43 98 Nasal Cannula 3.0 32 07/19/19 19:00 98.4 Intake and Output 07/19/19 07/20/19 19:00 07:00 Intake Total 480 ml 750 ml Output Total 450 ml 1075 ml Balance 30 ml -325 ml Intake Oral 480 ml IV Total 750 ml Output Urine Total 450 ml 1075 ml Laboratory Tests 07/20/19 05:00: White Blood Count 13.3H, Red Blood Count 2.53L, Hemoglobin 7.8L, Hematocrit 22.8L, Mean Corpuscular Volume 90, Mean Corpuscular Hemoglobin 30.7, Mean Corpuscular Hemoglobin Concent 34.1, Red Cell Distribution Width 16.4H, Platelet Count 351, Mean Platelet Volume 7.0, Neutrophils (%) (Auto) , Lymphocytes (%) (Auto) , Monocytes (%) (Auto) , Eosinophils (%) (Auto) , Basophils (%) (Auto) , Differential Total Cells Counted 100, Neutrophils % ( Manual) 73, Lymphocytes % (Manual) 17L, Monocytes % (Manual) 7, Eosinophils % ( Manual) 3, Basophils % (Manual) 0, Band Neutrophils 0, Platelet Estimate Adequate, Platelet Morphology , Giant Platelets Occasional, Hypochromasia 1+, Anisocytosis 1+, Sickle Cells RareH Height (Feet): 5 Height (Inches): 11.00 Weight (Pounds): 138 Respiratory/Chest: rhonchi - bilaterally Griffin Recinos MD Jul 20, 2019 18:40
--- NOTE | 2019-07-20 19:30 | NUR ---
HAND-OFF: Report given to
--- NOTE | 2019-07-20 19:40 | NUR ---
NURSE NOTES Rececived pt in bed ,awake alert and verbal. Breathing on NC @2L ,no acute distress noted. Rigth upper chest port a cath patent. Bed in lowest position, call light within reach, will continue with plan of care
[2019-07-20 20:00] VITALS: BP 126/87
--- NOTE | 2019-07-20 20:45 | General Progress Note ---
Assessment/Plan Status: progressing Assessment/Plan: Assessment - Sickle cell crisis - leukocytosis - abnormal LFT - negative U/S and hepatitis serologies, improved Recommendations - IVF - Follow LFT - hepatitis serologies - neg - abdominal ultrasound - s/p mimi - check CK -neg Subjective Allergies: Coded Allergies: PENTAMIDINE ISETHIONATE (Verified Allergy, Severe, palpitations, 08/27/17) AMPICILLIN (Verified Allergy, Unknown, hives, 01/05/18) Tolerated CEftriaxone 01/02/18 KETOROLAC (Verified Allergy, Unknown, 08/03/16) MORPHINE (Verified Allergy, Unknown, 08/03/16) PHENYTOIN (Verified Allergy, Unknown, 08/03/16) Subjective Feels OK no abdominal complaints LFT improved Objective Last 24 Hour Vital Signs Date Time Temp Pulse Resp B/P (MAP) Pulse Ox O2 Delivery O2 Flow Rate FiO2 07/20/19 20:08 99 Nasal Cannula 3.0 32 07/20/19 20:08 77 18 100 Nasal Cannula 3.0 32 75 18 99 07/20/19 20:05 75 18 99 Nasal Cannula 3.0 32 07/20/19 16:00 98.0 82 18 120/78 (92) 100 07/20/19 12:00 98.2 75 18 116/81 (93) 100 07/20/19 09:00 Room Air 07/20/19 08:18 78 18 98 Nasal Cannula 3.0 32 07/20/19 08:18 100 Nasal Cannula 3.0 32 07/20/19 08:00 97.8 78 18 117/80 (92) 100 07/20/19 04:00 97.9 78 17 109/73 (85) 99 07/20/19 00:00 97.9 78 17 109/73 (85) 99 07/19/19 21:39 98.9 07/19/19 21:00 Room Air Intake and Output 07/19/19 07/20/19 19:00 07:00 Intake Total 480 ml 750 ml Output Total 450 ml 1075 ml Balance 30 ml -325 ml Intake Oral 480 ml IV Total 750 ml Output Urine Total 450 ml 1075 ml Laboratory Tests 07/20/19 05:00: White Blood Count 13.3H, Red Blood Count 2.53L, Hemoglobin 7.8L, Hematocrit 22.8L, Mean Corpuscular Volume 90, Mean Corpuscular Hemoglobin 30.7, Mean Corpuscular Hemoglobin Concent 34.1, Red Cell Distribution Width 16.4H, Platelet Count 351, Mean Platelet Volume 7.0, Neutrophils (%) (Auto) , Lymphocytes (%) (Auto) , Monocytes (%) (Auto) , Eosinophils (%) (Auto) , Basophils (%) (Auto) , Differential Total Cells Counted 100, Neutrophils % ( Manual) 73, Lymphocytes % (Manual) 17L, Monocytes % (Manual) 7, Eosinophils % ( Manual) 3, Basophils % (Manual) 0, Band Neutrophils 0, Platelet Estimate Adequate, Platelet Morphology , Giant Platelets Occasional, Hypochromasia 1+, Anisocytosis 1+, Sickle Cells RareH Height (Feet): 5 Height (Inches): 11.00 Weight (Pounds): 138 Objective Thin AA man NCAT, disconjugate gaze neck supple CTA RR Abd soft ND NT no edema Charlotte Shaffer MD Jul 20, 2019 20:45
[2019-07-21] VITALS (7 sets, daily range): BP systolic 114–144; BP diastolic 43–82
--- NOTE | 2019-07-21 00:39 | NUR ---
NURSE NOTES: Pt refused his breathing treatment. Pt said i am ok and saturating 100% on 2L N/C. Pain medication administered as ordered. Fall precaution is in place. Bed in low and locked position. Call light within reach. will continue to monitor the pt.
[2019-07-21] MEDS: DiphenhydrAMINE 50mg/ml Inj IVP PRN ×6 (02:34→23:24)
--- NOTE | 2019-07-21 02:37 | NUR ---
NURSE NOTES: Pt refused his breathing treatment.
[2019-07-21] MEDS: Albuterol/Ipratropium 3ml neb HHN SCH ×6 (02:47→22:01)
--- NOTE | 2019-07-21 07:35 | NUR ---
NURSE NOTES: Received report from GRISELDA Lantigua. Patient is A&Ox4. On nasal cannula, no signs of distress or labored breathing. Patient has right subclavian portacath with access; dry, intact, and saline locked. Bed in lowest position with call light in reach. Will continue with plan of care.
--- NOTE | 2019-07-21 07:39 | NUR ---
HAND-OFF: Report given to GRISELDA Francisco.
[2019-07-21] MEDS ORDERED: D5 1/2NS 1000ml IV ONE (09:21)
[2019-07-21] MEDS: Hydroxyurea 500mg cap ORAL SCH ×2 (09:53→18:33)
[2019-07-21] MEDS: Levofloxacin 750mg tab ORAL SCH (09:53)
--- NOTE | 2019-07-21 11:00 | NUR ---
NURSE NOTES: *Pharmacy Discrepancy* RN took out Benadryl from Pyxis, got distracted and added Benadryl to Dilaudid drawer. When counting Dilaudid, count was incorrect. RN then reopened Pyxis to retrieve Benadryl from Dilaudid drawer, creating another discrepancy. RN resolved discrepancy with charge nurse, GRISELDA Alva. RN then called pharmacy and spoke to Mariela to report discrepancy.
[2019-07-21 11:37] LABS: BASOPHILS % (AUTO) 0.3 % (0.0-2.0); EOSINOPHILS % (AUTO) 5.9 % (0.0-3.0); HEMATOCRIT 25.5 % (42.0-52.0); HEMOGLOBIN 8.3 G/DL (14.2-18.0); LYMPHOCYTES % (AUTO) 27.4 % (20.0-45.0); MEAN CORPUSCULAR VOLUME 92 FL (80-99); MONOCYTES % (AUTO) 6.4 % (1.0-10.0); PLATELET COUNT 423 K/UL (150-450); RED BLOOD COUNT 2.77 M/UL (4.70-6.10); RED CELL DISTRIBUTION WIDTH 16.4 % (11.6-14.8); WHITE BLOOD COUNT 16.2 K/UL (4.8-10.8)
--- NOTE | 2019-07-21 11:50 | NUR ---
NURSE NOTES: Patient advised me that he did not feel well enough to be discharged as the doctor wanted today. He notified me he is filing an appeal with [employer]. I advised nursing electrician supervisor Braxton as well as MD Recinos and GRISELDA Chavez.
--- NOTE | 2019-07-21 13:57 | Pulmonology Progress Note ---
Assessment/Plan Assessment/Plan Pulmonary Progress Note HPI Patient is a 43 year old man with Past Medical History of Asthma, HTN, Sickle Cell Disease, admitted with exacerbation of SCD with complaints of diffuse body pain, cough, congestion for several days. No current vomiting,has had intermittent nausea Less chest pain as well Less cough On Levaquin possible chest infection Denies any recent travel Less SOB with reduced IVF Allergies: PENTAMIDINE ISETHIONATE AMPICILLIN Tolerated CEftriaxone 01/02/18 KETOROLAC MORPHINE PHENYTOIN Past Medical History: Sickle cell disease, Asthma, Seizure history, bilateral AVN hips, Hypertension All Other Systems: negative except mentioned in HPI Physical Exam Vital Signs Noted General Appearance: no apparent distress, on RA Head: normocephalic, atraumatic Eyes: bilateral eye PERRL ENT: EOM grossly intact, normal pharynx Neck: supple Respiratory: no respiratory distress, no retraction, no accessory muscle use, reduced basal BS Cardiovascular: regular rate, rhythm, HS1, HS2 normal Gastrointestinal: non tender, soft Musculoskeletal: normal inspection Neurologic: alert Skin: no rash Lymphatic: no adenopathy Impression: Sickle cell disease with crisis s/p Transfusion, IVF Possible Chest infection Atelectasis Possible volume overload Plan - Continue current antibiotics - HHN - Diurese PRN - Pain Mx - PPX - Monitor labs - PPX - If remains on low level O2 OK to DC with PO Levaquin, bronchodilators, incentive spirometer - Has home o2 Labs Test 07/16/19 13:00 White Blood Count 21.5 K/UL (4.8-10.8) Red Blood Count 2.71 M/UL (4.70-6.10) Hemoglobin 8.1 G/DL (14.2-18.0) Hematocrit 25.0 % (42.0-52.0) Mean Corpuscular Volume 93 FL (80-99) Mean Corpuscular Hemoglobin 29.9 PG (27.0-31.0) Mean Corpuscular Hemoglobin Concent 32.3 G/DL (32.0-36.0) Red Cell Distribution Width 16.3 % (11.6-14.8) Platelet Count 400 K/UL (150-450) Mean Platelet Volume 6.4 FL (6.5-10.1) Neutrophils (%) (Auto) % (45.0-75.0) Lymphocytes (%) (Auto) % (20.0-45.0) Monocytes (%) (Auto) % (1.0-10.0) Eosinophils (%) (Auto) % (0.0-3.0) Basophils (%) (Auto) % (0.0-2.0) Sodium Level 134 MMOL/L (136-145) Potassium Level 3.8 MMOL/L (3.5-5.1) Chloride Level 100 MMOL/L (98-107) Carbon Dioxide Level 29 MMOL/L (21-32) Anion Gap 5 mmol/L (5-15) Blood Urea Nitrogen 26 mg/dL (7-18) Creatinine 1.2 MG/DL (0.55-1.30) Estimat Glomerular Filtration Rate > 60 mL/min (>60) Glucose Level 135 MG/DL (74-106) Calcium Level 9.0 MG/DL (8.5-10.1) Total Bilirubin 1.0 MG/DL (0.2-1.0) Aspartate Amino Transf (AST/SGOT) 150 U/L (15-37) Alanine Aminotransferase (ALT/SGPT) 192 U/L (12-78) Alkaline Phosphatase 283 U/L (46-116) Total Creatine Kinase < 7 U/L (26-308) Troponin I 0.000 ng/mL (0.000-0.056) Pro-B-Type Natriuretic Peptide 60 pg/mL (0-125) Total Protein 7.1 G/DL (6.4-8.2) Albumin 3.6 G/DL (3.4-5.0) Globulin 3.5 g/dL Albumin/Globulin Ratio 1.0 (1.0-2.7) Lipase 36 U/L (73-393) Urine Opiates Screen Negative (NEGATIVE) Urine Barbiturates Screen Negative (NEGATIVE) Phencyclidine (PCP) Screen Negative (NEGATIVE) Urine Amphetamines Screen Negative (NEGATIVE) Urine Benzodiazepines Screen Negative (NEGATIVE) Urine Cocaine Screen Negative (NEGATIVE) Urine Marijuana (THC) Screen Negative (NEGATIVE) EKG: Rhythm: NSR ST Segments: other - Specific ST and T wave changes Chest X-Ray: no consolidation, no pneumothorax, other - Patchy markings bilaterally question interstitial disease versus fluid versus pneumonia Subjective ROS Limited/Unobtainable: No Allergies: Coded Allergies: PENTAMIDINE ISETHIONATE (Verified Allergy, Severe, palpitations, 08/27/17) AMPICILLIN (Verified Allergy, Unknown, hives, 01/05/18) Tolerated CEftriaxone 01/02/18 KETOROLAC (Verified Allergy, Unknown, 08/03/16) MORPHINE (Verified Allergy, Unknown, 08/03/16) PHENYTOIN (Verified Allergy, Unknown, 08/03/16) Objective Last 24 Hour Vital Signs Date Time Temp Pulse Resp B/P (MAP) Pulse Ox O2 Delivery O2 Flow Rate FiO2 07/21/19 08:59 76 18 98 Nasal Cannula 3.0 32 07/21/19 08:59 98 Nasal Cannula 3.0 32 07/21/19 08:00 97.7 75 17 117/82 (94) 99 07/21/19 04:00 98.0 84 18 144/80 (101) 99 07/21/19 00:00 98.8 88 18 119/78 (92) 98 07/20/19 21:00 Nasal Cannula 2.0 07/20/19 20:08 99 Nasal Cannula 3.0 32 07/20/19 20:08 77 18 100 Nasal Cannula 3.0 32 75 18 99 07/20/19 20:05 75 18 99 Nasal Cannula 3.0 32 07/20/19 20:00 98.9 99 20 126/87 (100) 100 07/20/19 16:00 98.0 82 18 120/78 (92) 100 Intake and Output 07/20/19 07/21/19 19:00 07:00 Intake Total 1070 ml 540 ml Output Total 2000 ml 1300 ml Balance -930 ml -760 ml Intake Oral 720 ml 540 ml IV Total 350 ml Output Urine Total 2000 ml 1300 ml Laboratory Tests 07/21/19 11:00: White Blood Count 16.2H, Red Blood Count 2.77L, Hemoglobin 8.3L, Hematocrit 25.5L, Mean Corpuscular Volume 92, Mean Corpuscular Hemoglobin 29.9, Mean Corpuscular Hemoglobin Concent 32.4, Red Cell Distribution Width 16.4H, Platelet Count 423, Mean Platelet Volume 6.5, Neutrophils (%) (Auto) 60.0, Lymphocytes (%) (Auto) 27.4, Monocytes (%) (Auto) 6.4, Eosinophils (%) (Auto) 5.9H, Basophils (%) (Auto) 0.3 Current Medications Medications (Trade) Dose Ordered Sig/Anthony Route PRN Reason Start Time Stop Time Status Last Admin Dose Admin Acetaminophen (Tylenol) 650 mg Q6H PRN ORAL Mild Pain/Temp > 100.5 07/19/19 20:51 08/18/19 20:50 07/20/19 20:42 Albuterol Sulfate (Proventil) 2.5 mg Q6HRT PRN HHN Shortness of Breath 07/19/19 20:51 07/24/19 20:50 Albuterol/ Ipratropium (Albuterol/ Ipratropium) 3 ml Q4HRT HHN 07/20/19 15:00 07/25/19 14:59 07/20/19 20:04 Dextrose/Sodium Chloride 1,000 ml @ 50 mls/hr Q20H IV 07/20/19 15:00 08/18/19 20:50 07/20/19 17:50 Diphenhydramine HCl (Benadryl) 50 mg Q4H PRN IVP Itching 07/19/19 20:51 08/18/19 20:50 07/21/19 11:13 Hydromorphone HCl (Dilaudid) 2 mg Q4H PRN IVP Severe Pain (Pain Scale 7-10) 07/19/19 20:51 07/26/19 20:50 07/21/19 11:13 Hydroxyurea (Hydrea) 500 mg TWICE A DAY ORAL 07/20/19 09:00 07/22/19 08:59 07/21/19 09:53 Levofloxacin (Levaquin) 750 mg DAILY ORAL 07/20/19 09:00 07/24/19 08:59 07/21/19 09:53 Methadone HCl (Methadone HCl) 60 mg Q6H ORAL 07/19/19 21:00 07/24/19 08:59 07/21/19 09:54 Artie Finnegan MD Jul 21, 2019 13:57
--- NOTE | 2019-07-21 14:30 | NUR ---
CASE MANAGEMENT: Notification from [facility] re: Medicare Appeal. Case control ID: [id number] Addendum: 07/21/19 at 1626 by IMAN SHAFFER Faxed requested documents to [facility]il @ [phone] Addendum: 07/22/19 at 1018 by CHUYITA CONTEH CHECKS STATUS CLINICALS HAVE BEEN RECEIVED.
--- NOTE | 2019-07-21 15:13 | NUR ---
NURSE NOTES: Patient refused scheduled pain medication of methadone. Patient insists on having available PRN doses of Dilaudid and Benadryl. RN explained risks and benefits of this choice and patient still refused. Charge nurse aware.
--- NOTE | 2019-07-21 15:55 | General Progress Note ---
Assessment/Plan Status: progressing Assessment/Plan: Assessment - Sickle cell crisis - leukocytosis - abnormal LFT - negative U/S and hepatitis serologies, improved Recommendations - IVF - Follow LFT - hepatitis serologies - neg - abdominal ultrasound - s/p mimi - check CK -neg Subjective Allergies: Coded Allergies: PENTAMIDINE ISETHIONATE (Verified Allergy, Severe, palpitations, 08/27/17) AMPICILLIN (Verified Allergy, Unknown, hives, 01/05/18) Tolerated CEftriaxone 01/02/18 KETOROLAC (Verified Allergy, Unknown, 08/03/16) MORPHINE (Verified Allergy, Unknown, 08/03/16) PHENYTOIN (Verified Allergy, Unknown, 08/03/16) Subjective Feels OK no abdominal complaints Objective Last 24 Hour Vital Signs Date Time Temp Pulse Resp B/P (MAP) Pulse Ox O2 Delivery O2 Flow Rate FiO2 07/21/19 08:59 76 18 98 Nasal Cannula 3.0 32 07/21/19 08:59 98 Nasal Cannula 3.0 32 07/21/19 08:00 97.7 75 17 117/82 (94) 99 07/21/19 04:00 98.0 84 18 144/80 (101) 99 07/21/19 00:00 98.8 88 18 119/78 (92) 98 07/20/19 21:00 Nasal Cannula 2.0 07/20/19 20:08 99 Nasal Cannula 3.0 32 07/20/19 20:08 77 18 100 Nasal Cannula 3.0 32 75 18 99 07/20/19 20:05 75 18 99 Nasal Cannula 3.0 32 07/20/19 20:00 98.9 99 20 126/87 (100) 100 07/20/19 16:00 98.0 82 18 120/78 (92) 100 Intake and Output 07/20/19 07/21/19 19:00 07:00 Intake Total 1070 ml 540 ml Output Total 2000 ml 1300 ml Balance -930 ml -760 ml Intake Oral 720 ml 540 ml IV Total 350 ml Output Urine Total 2000 ml 1300 ml Laboratory Tests 07/21/19 11:00: White Blood Count 16.2H, Red Blood Count 2.77L, Hemoglobin 8.3L, Hematocrit 25.5L, Mean Corpuscular Volume 92, Mean Corpuscular Hemoglobin 29.9, Mean Corpuscular Hemoglobin Concent 32.4, Red Cell Distribution Width 16.4H, Platelet Count 423, Mean Platelet Volume 6.5, Neutrophils (%) (Auto) 60.0, Lymphocytes (%) (Auto) 27.4, Monocytes (%) (Auto) 6.4, Eosinophils (%) (Auto) 5.9H, Basophils (%) (Auto) 0.3 Height (Feet): 5 Height (Inches): 11.00 Weight (Pounds): 138 Objective Thin AA man NCAT, disconjugate gaze neck supple CTA RR Abd soft ND NT no edema Charlotte Shaffer MD Jul 21, 2019 15:55
--- NOTE | 2019-07-21 16:03 | NUR ---
PT Note Patient is able to safely ambulate with a FWW and bilateral crutches. Patient has own FWW. Patient has multiple steps at home; prefers to use bilateral crutches. Patient is stable in gait with crutches. Recommend for patient to be DC'd home with crutches. No further PT needed at this time.
--- NOTE | 2019-07-21 17:11 | General Progress Note ---
Assessment/Plan Problem List: (1) Chronic pain ICD Codes: G89.29 - Other chronic pain SNOMED: 27131966 (2) Sickle cell disease ICD Codes: D57.1 - Sickle-cell disease without crisis SNOMED: 631982384 (3) Seizure disorder ICD Codes: G40.909 - Epilepsy, unspecified, not intractable, without status epilepticus SNOMED: 620991893 (4) Pulmonary HTN ICD Codes: I27.2 - Other secondary pulmonary hypertension SNOMED: 17863552 (5) Intractable pain ICD Codes: R52 - Pain, unspecified SNOMED: 02705845 (6) Anemia ICD Codes: D64.9 - Anemia, unspecified SNOMED: 807991412 (7) Sickle cell crisis ICD Codes: D57.00 - Hb-SS disease with crisis, unspecified SNOMED: 624618401 Status: progressing Assessment/Plan: stable for dc and is refused to be dc cleared by compensation consultant for dc however refuses to go sickle cell crisis is under control Subjective ROS Limited/Unobtainable: Yes Allergies: Coded Allergies: PENTAMIDINE ISETHIONATE (Verified Allergy, Severe, palpitations, 08/27/17) AMPICILLIN (Verified Allergy, Unknown, hives, 01/05/18) Tolerated CEftriaxone 01/02/18 KETOROLAC (Verified Allergy, Unknown, 08/03/16) MORPHINE (Verified Allergy, Unknown, 08/03/16) PHENYTOIN (Verified Allergy, Unknown, 08/03/16) Objective Last 24 Hour Vital Signs Date Time Temp Pulse Resp B/P (MAP) Pulse Ox O2 Delivery O2 Flow Rate FiO2 07/21/19 08:59 76 18 98 Nasal Cannula 3.0 32 07/21/19 08:59 98 Nasal Cannula 3.0 32 07/21/19 08:00 97.7 75 17 117/82 (94) 99 07/21/19 04:00 98.0 84 18 144/80 (101) 99 07/21/19 00:00 98.8 88 18 119/78 (92) 98 07/20/19 21:00 Nasal Cannula 2.0 07/20/19 20:08 99 Nasal Cannula 3.0 32 07/20/19 20:08 77 18 100 Nasal Cannula 3.0 32 75 18 99 07/20/19 20:05 75 18 99 Nasal Cannula 3.0 32 07/20/19 20:00 98.9 99 20 126/87 (100) 100 Intake and Output 07/20/19 07/21/19 19:00 07:00 Intake Total 1070 ml 540 ml Output Total 2000 ml 1300 ml Balance -930 ml -760 ml Intake Oral 720 ml 540 ml IV Total 350 ml Output Urine Total 2000 ml 1300 ml Laboratory Tests 07/21/19 11:00: White Blood Count 16.2H, Red Blood Count 2.77L, Hemoglobin 8.3L, Hematocrit 25.5L, Mean Corpuscular Volume 92, Mean Corpuscular Hemoglobin 29.9, Mean Corpuscular Hemoglobin Concent 32.4, Red Cell Distribution Width 16.4H, Platelet Count 423, Mean Platelet Volume 6.5, Neutrophils (%) (Auto) 60.0, Lymphocytes (%) (Auto) 27.4, Monocytes (%) (Auto) 6.4, Eosinophils (%) (Auto) 5.9H, Basophils (%) (Auto) 0.3 Height (Feet): 5 Height (Inches): 11.00 Weight (Pounds): 138 Cardiovascular: normal rate Respiratory/Chest: lungs clear Abdomen: soft Griffin Recinos MD Jul 21, 2019 17:11
--- NOTE | 2019-07-21 18:20 | General Progress Note ---
Assessment/Plan Assessment/Plan: (1) Intractable pain (2) Sickle cell disease and Crisis (3) B/L Femur head AVN Patient will be continued on Methadone and Dilaudid D/w Dr. Perera and he concurred. Subjective Date patient seen: Jul 21, 2019 Time patient seen: 05:30 - pm Allergies: Coded Allergies: PENTAMIDINE ISETHIONATE (Verified Allergy, Severe, palpitations, 08/27/17) AMPICILLIN (Verified Allergy, Unknown, hives, 01/05/18) Tolerated CEftriaxone 01/02/18 KETOROLAC (Verified Allergy, Unknown, 08/03/16) MORPHINE (Verified Allergy, Unknown, 08/03/16) PHENYTOIN (Verified Allergy, Unknown, 08/03/16) Subjective Constitutional: Reports: weakness HEENT: Reports: no symptoms Cardiovascular: Reports: no symptoms Respiratory: Reports: no symptoms Gastrointestinal/Abdominal: Reports: no symptoms Genitourinary: Reports: no symptoms 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: Reports: weakness Hematologic/Lymphatic: Reports: no symptoms Subjective Patient is in bed no new complaints at this time. Pain has been stable and tolerated on the Methadone and Dilaudid. No signs of pain or distress. Objective Last 24 Hour Vital Signs Date Time Temp Pulse Resp B/P (MAP) Pulse Ox O2 Delivery O2 Flow Rate FiO2 07/21/19 16:00 98.1 83 17 118/82 (94) 98 07/21/19 12:00 98.6 84 17 131/43 (72) 100 07/21/19 09:00 Nasal Cannula 2.0 07/21/19 08:59 76 18 98 Nasal Cannula 3.0 32 07/21/19 08:59 98 Nasal Cannula 3.0 32 07/21/19 08:00 97.7 75 17 117/82 (94) 99 07/21/19 04:00 98.0 84 18 144/80 (101) 99 07/21/19 00:00 98.8 88 18 119/78 (92) 98 07/20/19 21:00 Nasal Cannula 2.0 07/20/19 20:08 99 Nasal Cannula 3.0 32 07/20/19 20:08 77 18 100 Nasal Cannula 3.0 32 75 18 99 07/20/19 20:05 75 18 99 Nasal Cannula 3.0 32 07/20/19 20:00 98.9 99 20 126/87 (100) 100 Intake and Output 07/20/19 07/21/19 19:00 07:00 Intake Total 1070 ml 540 ml Output Total 2000 ml 1300 ml Balance -930 ml -760 ml Intake Oral 720 ml 540 ml IV Total 350 ml Output Urine Total 2000 ml 1300 ml Laboratory Tests 07/21/19 11:00: White Blood Count 16.2H, Red Blood Count 2.77L, Hemoglobin 8.3L, Hematocrit 25.5L, Mean Corpuscular Volume 92, Mean Corpuscular Hemoglobin 29.9, Mean Corpuscular Hemoglobin Concent 32.4, Red Cell Distribution Width 16.4H, Platelet Count 423, Mean Platelet Volume 6.5, Neutrophils (%) (Auto) 60.0, Lymphocytes (%) (Auto) 27.4, Monocytes (%) (Auto) 6.4, Eosinophils (%) (Auto) 5.9H, Basophils (%) (Auto) 0.3 Height (Feet): 5 Height (Inches): 11.00 Weight (Pounds): 138 Objective General Appearance: no apparent distress, alert EENT: PERRL/EOMI, normal ENT inspection Neck: non-tender, normal alignment Cardiovascular: normal rate, regular rhythm Respiratory/Chest: decreased breath sounds Abdomen: non tender, soft Extremities: non-tender Edema: no edema noted Generalized Neurologic: alert, oriented x 3 Skin: normal pigmentation Cj Adnerson Jul 21, 2019 18:20
--- NOTE | 2019-07-21 19:07 | NUR ---
HAND-OFF: Report given to GRISELDA Ghosh.
--- NOTE | 2019-07-21 19:43 | NUR ---
NURSE NOTES: PATIENT AWAKE, ORIENTED. PAIN MANAGED WITH DILAUDID 2 MG PRN MEDICATION WITH BENADRYL PRN MEDICATION. NO S/S RESPIRATORY DISTRESS NOTED. YOGESH-CATH IN PLACE. BED IN LOWEST POSITION, PATIENT REFUSED BED ALARM TO BE ON EVEN AFTER NURSE EXPLAINED PURPOSE, CALL LIGHT WITHIN REACH, WILL CONTINUE TO MONITOR.
[2019-07-21] MEDS ORDERED: Dyna-Hex 2% Top Sol 2oz TOPIC ONE (22:15)
[2019-07-21] MEDS: Dyna-Hex 2% Top Sol 2oz TOPIC SCH (22:58)
[2019-07-22] MEDS: Albuterol/Ipratropium 3ml neb HHN SCH ×4 (02:58→15:54)
[2019-07-22] MEDS: D5 1/2NS 1,000 ML IV SCH (03:04)
[2019-07-22] MEDS: DiphenhydrAMINE 50mg/ml Inj IVP PRN ×3 (03:22→11:59)
[2019-07-22 03:31] VITALS: BP 129/95
--- NOTE | 2019-07-22 06:59 | Hematology/Onc Progress Note ---
Assessment/Plan Assessment/Plan ASSESSMENT/Recs # Sickle cell disease with crisis presentation with total body pain as well as cp --> IVF, benadryl, dilaudid --> No evidence of hemolysis is noted, peripheral smear has been reviewed. --> Hgb goal >7. Transfuse prn. --> Epogen or iron at this time is not particularly indicated --> Medications have been reviewed --> hgb trend 8-->7.2-->7.8-->8.3 --> 07/20: Stable for dc # Leukocytosis. Likely related to underlying infection versus reactive process --> have reviewed peripheral smear and bandemia/neutrophilia noted --> continue antibiotics if they have been started by ID team --> monitor for resolution --> trend wbc 21-->17-->16 # DVT of the bilateral lower ext --> hold off on anticoagulation at this time --> cards aware # History of seizure disorder, continue gabapentin as above. # Pulmonary hypertension. 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 Greatly appreciate consultation! Subjective Constitutional: Denies: no symptoms, chills, fever, malaise, weakness, other HEENT: Denies: no symptoms, eye pain, blurred vision, tearing, double vision, ear pain, ear discharge, nose pain, nose congestion, throat pain, throat swelling, mouth pain, mouth swelling, other Cardiovascular: Denies: no symptoms, chest pain, edema, irregular heart rate, lightheadedness, palpitations, syncope, other Respiratory: Denies: no symptoms, cough, shortness of breath, SOB with excertion, SOB at rest, sputum, wheezing, other Gastrointestinal/Abdominal: Denies: no symptoms, abdomen distended, abdominal pain, black stools, tarry stools, blood in stool, constipated, diarrhea, difficulty swallowing, nausea, poor appetite, poor fluid intake, rectal bleeding , vomiting, other Genitourinary: Denies: no symptoms, burning, discharge, frequency, flank pain, hematuria, incontinence, pain, urgency, other 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: Denies: no symptoms, anxiety, depressed, emotional problems, headache, numbness, paresthesia, pre-existing deficit, seizure, tingling, tremors, weakness, other Endocrine: Denies: no symptoms, excessive sweating, flushing, intolerance to cold, intolerance to heat, increased hunger, increased thirst, increased urine, unexplained weight gain, unexplained weight loss, other Allergies: Coded Allergies: PENTAMIDINE ISETHIONATE (Verified Allergy, Severe, palpitations, 08/27/17) AMPICILLIN (Verified Allergy, Unknown, hives, 01/05/18) Tolerated CEftriaxone 01/02/18 KETOROLAC (Verified Allergy, Unknown, 08/03/16) MORPHINE (Verified Allergy, Unknown, 08/03/16) PHENYTOIN (Verified Allergy, Unknown, 08/03/16) Subjective 07/18/19: no bleeding, cbc is pending, continues to complain of cp 07/19: no bleeding, crisis appears better, refusing labs, otherwise feeling better 07/20: is on 6l nc, no bleeding or night sweats, no f/c, ok for dc 07/22: less pain, still complaining of fatigue, minor sob, doesn't want to be dc Objective Objective Current Medications Medications (Trade) Dose Ordered Sig/Anthony Route PRN Reason Start Time Stop Time Status Last Admin Dose Admin Acetaminophen (Tylenol) 650 mg Q6H PRN ORAL Mild Pain/Temp > 100.5 07/19/19 20:51 08/18/19 20:50 07/22/19 03:04 Albuterol Sulfate (Proventil) 2.5 mg Q6HRT PRN HHN Shortness of Breath 07/19/19 20:51 07/24/19 20:50 Albuterol/ Ipratropium (Albuterol/ Ipratropium) 3 ml Q4HRT HHN 07/20/19 15:00 07/25/19 14:59 07/20/19 20:04 Chlorhexidine Gluconate (Val-Hex 2%) 1 applic DAILY TOPIC 07/21/19 22:30 08/20/19 22:29 07/21/19 22:58 Dextrose/Sodium Chloride 1,000 ml @ 50 mls/hr Q20H IV 07/20/19 15:00 08/18/19 20:50 07/22/19 03:04 Diphenhydramine HCl (Benadryl) 50 mg Q4H PRN IVP Itching 07/19/19 20:51 08/18/19 20:50 07/22/19 03:22 Hydromorphone HCl (Dilaudid) 2 mg Q4H PRN IVP Severe Pain (Pain Scale 7-10) 07/19/19 20:51 07/26/19 20:50 07/22/19 03:22 Hydroxyurea (Hydrea) 500 mg TWICE A DAY ORAL 07/20/19 09:00 07/22/19 08:59 07/21/19 18:33 Levofloxacin (Levaquin) 750 mg DAILY ORAL 07/20/19 09:00 07/24/19 08:59 07/21/19 09:53 Methadone HCl (Methadone HCl) 60 mg Q6H ORAL 07/19/19 21:00 07/24/19 08:59 07/22/19 02:32 Last 24 Hour Vital Signs Date Time Temp Pulse Resp B/P (MAP) Pulse Ox O2 Delivery O2 Flow Rate FiO2 07/22/19 03:52 97.9 07/22/19 03:46 97.9 07/22/19 03:31 97.9 77 18 129/95 (106) 99 07/21/19 23:29 97.7 81 18 114/81 (92) 99 07/21/19 20:00 Nasal Cannula 2.0 07/21/19 20:00 97.9 73 18 125/80 (95) 96 07/21/19 19:21 71 18 99 Nasal Cannula 3.0 32 07/21/19 19:21 98 Nasal Cannula 3.0 32 07/21/19 16:00 98.1 83 17 118/82 (94) 98 07/21/19 12:00 98.6 84 17 131/43 (72) 100 07/21/19 09:00 Nasal Cannula 2.0 07/21/19 08:59 76 18 98 Nasal Cannula 3.0 32 07/21/19 08:59 98 Nasal Cannula 3.0 32 07/21/19 08:00 97.7 75 17 117/82 (94) 99 07/21/19 04:00 98.0 84 18 144/80 (101) 99 07/21/19 00:00 98.8 88 18 119/78 (92) 98 07/20/19 21:00 Nasal Cannula 2.0 07/20/19 20:08 99 Nasal Cannula 3.0 32 07/20/19 20:08 77 18 100 Nasal Cannula 3.0 32 75 18 99 07/20/19 20:05 75 18 99 Nasal Cannula 3.0 32 07/20/19 20:00 98.9 99 20 126/87 (100) 100 07/20/19 16:00 98.0 82 18 120/78 (92) 100 07/20/19 12:00 98.2 75 18 116/81 (93) 100 07/20/19 09:00 Room Air 07/20/19 08:18 78 18 98 Nasal Cannula 3.0 32 07/20/19 08:18 98 Nasal Cannula 3.0 32 07/20/19 08:00 97.8 78 18 117/80 (92) 100 Intake and Output 07/21/19 07/22/19 19:00 07:00 Intake Total 480 ml 660 ml Output Total 1850 ml 900 ml Balance -1370 ml -240 ml Intake Oral 480 ml 360 ml IV Total 300 ml Output Urine Total 1850 ml 900 ml Labs Test 07/20/19 05:00 07/21/19 11:00 07/22/19 05:00 White Blood Count 13.3 K/UL (4.8-10.8) 16.2 K/UL (4.8-10.8) Red Blood Count 2.53 M/UL (4.70-6.10) 2.77 M/UL (4.70-6.10) Hemoglobin 7.8 G/DL (14.2-18.0) 8.3 G/DL (14.2-18.0) Hematocrit 22.8 % (42.0-52.0) 25.5 % (42.0-52.0) Mean Corpuscular Volume 90 FL (80-99) 92 FL (80-99) Mean Corpuscular Hemoglobin 30.7 PG (27.0-31.0) 29.9 PG (27.0-31.0) Mean Corpuscular Hemoglobin Concent 34.1 G/DL (32.0-36.0) 32.4 G/DL (32.0-36.0) Red Cell Distribution Width 16.4 % (11.6-14.8) 16.4 % (11.6-14.8) Platelet Count 351 K/UL (150-450) 423 K/UL (150-450) Mean Platelet Volume 7.0 FL (6.5-10.1) 6.5 FL (6.5-10.1) Neutrophils (%) (Auto) % (45.0-75.0) 60.0 % (45.0-75.0) Lymphocytes (%) (Auto) % (20.0-45.0) 27.4 % (20.0-45.0) Monocytes (%) (Auto) % (1.0-10.0) 6.4 % (1.0-10.0) Eosinophils (%) (Auto) % (0.0-3.0) 5.9 % (0.0-3.0) Basophils (%) (Auto) % (0.0-2.0) 0.3 % (0.0-2.0) Differential Total Cells Counted 100 Neutrophils % (Manual) 73 % (45-75) Lymphocytes % (Manual) 17 % (20-45) Monocytes % (Manual) 7 % (1-10) Eosinophils % (Manual) 3 % (0-3) Basophils % (Manual) 0 % (0-2) Band Neutrophils 0 % (0-8) Platelet Estimate Adequate Platelet Morphology Giant Platelets Occasional Hypochromasia 1+ Anisocytosis 1+ Sickle Cells Rare Height (Feet): 5 Height (Inches): 11.00 Weight (Pounds): 138 Objective PHYSICAL EXAMINATION: VITAL SIGNS: have been reviewed GENERAL: The patient is a well-developed and well nourished male, in no apparent distress. HEENT: Eyes, pupils are equal and responsive to light and accommodation. Extraocular movements are intact. NECK: Supple without lymphadenopathy. CHEST: Decreased crackles in bilateral bases. Otherwise, clear to auscultation without wheezes or rales. CARDIOVASCULAR: Regular rhythm and rate ABDOMEN: Soft, nontender, and nondistended. Positive bowel sounds. No evidence of hepatosplenomegaly. Currently, no rebound or guarding noted EXTREMITIES: Negative for clubbing, cyanosis, or edema. RECTAL/GENITAL: Refused. Marco Dutton MD Jul 22, 2019 06:59
[2019-07-22 07:04] LABS: ALANINE AMINOTRANSFERASE 69 U/L (12-78); ALBUMIN 3.1 G/DL (3.4-5.0); ALBUMIN/GLOBULIN RATIO 0.8 (1.0-2.7); ALKALINE PHOSPHATASE 235 U/L (46-116); ANION GAP 2 mmol/L (5-15); ASPARTATE AMINO TRANSFERASE 49 U/L (15-37); BILIRUBIN,TOTAL 0.5 MG/DL (0.2-1.0); CALCIUM 9.1 MG/DL (8.5-10.1); CARBON DIOXIDE 32 MMOL/L (21-32); CHLORIDE 105 MMOL/L (98-107); POTASSIUM 4.8 MMOL/L (3.5-5.1); SODIUM 139 MMOL/L (136-145)
[2019-07-22 07:17] LABS: BLOOD UREA NITROGEN 18 mg/dL (7-18)
[2019-07-22 07:19] LABS: BASOPHILS % (AUTO) 0.5 % (0.0-2.0); EOSINOPHILS % (AUTO) 8.5 % (0.0-3.0); HEMATOCRIT 23.8 % (42.0-52.0); LYMPHOCYTES % (AUTO) 33.4 % (20.0-45.0); MEAN CORPUSCULAR VOLUME 91 FL (80-99); MONOCYTES % (AUTO) 6.1 % (1.0-10.0); NEUTROPHILS % (AUTO) 51.5 % (45.0-75.0); PLATELET COUNT 421 K/UL (150-450); RED BLOOD COUNT 2.61 M/UL (4.70-6.10); RED CELL DISTRIBUTION WIDTH 16.3 % (11.6-14.8); WHITE BLOOD COUNT 11.9 K/UL (4.8-10.8)
--- NOTE | 2019-07-22 07:21 | NUR ---
HAND-OFF: Report given to DARIN MACK RN.
--- NOTE | 2019-07-22 07:50 | NUR ---
NURSE NOTES: Received patient on bed, with complaint of pain and request of pain medication. Nurse told patient she'll provide pain medication. Right chest port-a-cath infusing D5 1/2NS@ 50cc/hr. Urinal at bedside. Bed locked and in lowest position possible, call light within easy reach, siderails up x2. Will continue to monitor patient and follow up with the plan of care.
[2019-07-22] MEDS: Dyna-Hex 2% Top Sol 2oz TOPIC SCH (07:58)
[2019-07-22 08:00] VITALS: BP 125/79
[2019-07-22] MEDS: Levofloxacin 750mg tab ORAL SCH (08:09)
--- NOTE | 2019-07-22 08:09 | NUR ---
NURSE NOTES: Nurse called pharmacy, Molly pharmacist told nurse ok to give as it's PO daily.
--- NOTE | 2019-07-22 08:57 | General Progress Note ---
Assessment/Plan Assessment/Plan: (1) Intractable pain (2) Sickle cell disease and Crisis (3) B/L Femur head AVN Patient will be continued on Methadone and Dilaudid D/w Dr. Perera and he concurred. Subjective Date patient seen: Jul 22, 2019 Time patient seen: 07:45 - am Allergies: Coded Allergies: PENTAMIDINE ISETHIONATE (Verified Allergy, Severe, palpitations, 08/27/17) AMPICILLIN (Verified Allergy, Unknown, hives, 01/05/18) Tolerated CEftriaxone 01/02/18 KETOROLAC (Verified Allergy, Unknown, 08/03/16) MORPHINE (Verified Allergy, Unknown, 08/03/16) PHENYTOIN (Verified Allergy, Unknown, 08/03/16) Subjective Constitutional: Reports: weakness HEENT: Reports: no symptoms Cardiovascular: Reports: no symptoms Respiratory: Reports: no symptoms Gastrointestinal/Abdominal: Reports: no symptoms Genitourinary: Reports: no symptoms 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: Reports: weakness Hematologic/Lymphatic: Reports: no symptoms Subjective Patient reports that his pain has been stable tolerated on the Methadone and Dilaudid. No new complaints at this time. Objective Last 24 Hour Vital Signs Date Time Temp Pulse Resp B/P (MAP) Pulse Ox O2 Delivery O2 Flow Rate FiO2 07/22/19 07:42 98 Nasal Cannula 3.0 32 07/22/19 07:42 75 18 99 Nasal Cannula 3.0 32 07/22/19 03:52 97.9 07/22/19 03:46 97.9 07/22/19 03:31 97.9 77 18 129/95 (106) 99 07/21/19 23:29 97.7 81 18 114/81 (92) 99 07/21/19 20:00 Nasal Cannula 2.0 07/21/19 20:00 97.9 73 18 125/80 (95) 96 07/21/19 19:21 71 18 99 Nasal Cannula 3.0 32 07/21/19 19:21 98 Nasal Cannula 3.0 32 07/21/19 16:00 98.1 83 17 118/82 (94) 98 07/21/19 12:00 98.6 84 17 131/43 (72) 100 07/21/19 09:00 Nasal Cannula 2.0 07/21/19 08:59 76 18 98 Nasal Cannula 3.0 32 07/21/19 08:59 98 Nasal Cannula 3.0 32 Intake and Output 07/21/19 07/22/19 19:00 07:00 Intake Total 480 ml 660 ml Output Total 1850 ml 900 ml Balance -1370 ml -240 ml Intake Oral 480 ml 360 ml IV Total 300 ml Output Urine Total 1850 ml 900 ml Laboratory Tests 07/21/19 11:00: White Blood Count 16.2H, Red Blood Count 2.77L, Hemoglobin 8.3L, Hematocrit 25.5L, Mean Corpuscular Volume 92, Mean Corpuscular Hemoglobin 29.9, Mean Corpuscular Hemoglobin Concent 32.4, Red Cell Distribution Width 16.4H, Platelet Count 423, Mean Platelet Volume 6.5, Neutrophils (%) (Auto) 60.0, Lymphocytes (%) (Auto) 27.4, Monocytes (%) (Auto) 6.4, Eosinophils (%) (Auto) 5.9H, Basophils (%) (Auto) 0.3 07/22/19 05:00: White Blood Count 11.9H, Red Blood Count 2.61L, Hemoglobin 8.0L, Hematocrit 23.8L, Mean Corpuscular Volume 91, Mean Corpuscular Hemoglobin 30.5, Mean Corpuscular Hemoglobin Concent 33.4, Red Cell Distribution Width 16.3H, Platelet Count 421, Mean Platelet Volume 7.0, Neutrophils (%) (Auto) 51.5, Lymphocytes (%) (Auto) 33.4, Monocytes (%) (Auto) 6.1, Eosinophils (%) (Auto) 8.5H, Basophils (%) (Auto) 0.5, Sodium Level 139, Potassium Level 4.8, Chloride Level 105, Carbon Dioxide Level 32, Anion Gap 2L, Blood Urea Nitrogen 18, Creatinine 1.0, Estimat Glomerular Filtration Rate > 60, Glucose Level 107H, Calcium Level 9.1, Total Bilirubin 0.5, Aspartate Amino Transf (AST/SGOT) 49H, Alanine Aminotransferase (ALT/SGPT) 69, Alkaline Phosphatase 235H, Total Protein 7.2, Albumin 3.1L, Globulin 4.1, Albumin/Globulin Ratio 0.8L Height (Feet): 5 Height (Inches): 11.00 Weight (Pounds): 138 Objective General Appearance: no apparent distress, alert EENT: PERRL/EOMI, normal ENT inspection Neck: non-tender, normal alignment Cardiovascular: normal rate, regular rhythm Respiratory/Chest: decreased breath sounds Abdomen: non tender, soft Extremities: non-tender Edema: no edema noted Generalized Neurologic: alert, oriented x 3 Skin: normal pigmentation Cj Anderson Jul 22, 2019 08:57
--- NOTE | 2019-07-22 11:58 | Infectious Diseases Prog Note ---
Assessment/Plan Assessment/Plan A; Sepsis Leukocytosis improving Pneumonia Sickle cell crisis Elevated transaminase Penicillin allergy Avascular necrosis of hips s/p cholecystectomy P: Continue Levaquin X 1 day Subjective ROS Limited/Unobtainable: No Constitutional: Reports: no symptoms Cardiovascular: Reports: no symptoms Gastrointestinal/Abdominal: Reports: no symptoms Genitourinary: Reports: no symptoms Musculoskeletal: Reports: pain Allergies: Coded Allergies: PENTAMIDINE ISETHIONATE (Verified Allergy, Severe, palpitations, 08/27/17) AMPICILLIN (Verified Allergy, Unknown, hives, 01/05/18) Tolerated CEftriaxone 01/02/18 KETOROLAC (Verified Allergy, Unknown, 08/03/16) MORPHINE (Verified Allergy, Unknown, 08/03/16) PHENYTOIN (Verified Allergy, Unknown, 08/03/16) Objective Vital Signs Last 24 Hour Vital Signs Date Time Temp Pulse Resp B/P (MAP) Pulse Ox O2 Delivery O2 Flow Rate FiO2 07/22/19 09:00 Nasal Cannula 2.0 07/22/19 08:26 97.9 07/22/19 08:00 98.2 72 18 125/79 (94) 99 07/22/19 07:42 98 Nasal Cannula 3.0 32 07/22/19 07:42 75 18 99 Nasal Cannula 3.0 32 07/22/19 03:46 97.9 07/22/19 03:31 97.9 77 18 129/95 (106) 99 07/21/19 23:29 97.7 81 18 114/81 (92) 99 07/21/19 20:00 Nasal Cannula 2.0 07/21/19 20:00 97.9 73 18 125/80 (95) 96 07/21/19 19:21 71 18 99 Nasal Cannula 3.0 32 07/21/19 19:21 98 Nasal Cannula 3.0 32 07/21/19 16:00 98.1 83 17 118/82 (94) 98 07/21/19 12:00 98.6 84 17 131/43 (72) 100 Height (Feet): 5 Height (Inches): 11.00 Weight (Pounds): 138 General Appearance: no acute distress HEENT: mucous membranes moist Respiratory/Chest: lungs clear Cardiovascular: normal rate Abdomen: soft, non tender Extremities: no edema 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: alert, oriented x 3, responsive Laboratory Tests Test 07/22/19 05:00 White Blood Count 11.9 K/UL (4.8-10.8) H Red Blood Count 2.61 M/UL (4.70-6.10) L Hemoglobin 8.0 G/DL (14.2-18.0) L Hematocrit 23.8 % (42.0-52.0) L Mean Corpuscular Volume 91 FL (80-99) Mean Corpuscular Hemoglobin 30.5 PG (27.0-31.0) Mean Corpuscular Hemoglobin Concent 33.4 G/DL (32.0-36.0) Red Cell Distribution Width 16.3 % (11.6-14.8) H Platelet Count 421 K/UL (150-450) Mean Platelet Volume 7.0 FL (6.5-10.1) Neutrophils (%) (Auto) 51.5 % (45.0-75.0) Lymphocytes (%) (Auto) 33.4 % (20.0-45.0) Monocytes (%) (Auto) 6.1 % (1.0-10.0) Eosinophils (%) (Auto) 8.5 % (0.0-3.0) H Basophils (%) (Auto) 0.5 % (0.0-2.0) Sodium Level 139 MMOL/L (136-145) Potassium Level 4.8 MMOL/L (3.5-5.1) Chloride Level 105 MMOL/L (98-107) Carbon Dioxide Level 32 MMOL/L (21-32) Anion Gap 2 mmol/L (5-15) L Blood Urea Nitrogen 18 mg/dL (7-18) Creatinine 1.0 MG/DL (0.55-1.30) Estimat Glomerular Filtration Rate > 60 mL/min (>60) Glucose Level 107 MG/DL (74-106) H Calcium Level 9.1 MG/DL (8.5-10.1) Total Bilirubin 0.5 MG/DL (0.2-1.0) Aspartate Amino Transf (AST/SGOT) 49 U/L (15-37) H Alanine Aminotransferase (ALT/SGPT) 69 U/L (12-78) Alkaline Phosphatase 235 U/L (46-116) H Total Protein 7.2 G/DL (6.4-8.2) Albumin 3.1 G/DL (3.4-5.0) L Globulin 4.1 g/dL Albumin/Globulin Ratio 0.8 (1.0-2.7) L Current Medications Medications (Trade) Dose Ordered Sig/Anthony Route PRN Reason Start Time Stop Time Status Last Admin Dose Admin Acetaminophen (Tylenol) 650 mg Q6H PRN ORAL Mild Pain/Temp > 100.5 07/19/19 20:51 08/18/19 20:50 07/22/19 03:04 Albuterol Sulfate (Proventil) 2.5 mg Q6HRT PRN HHN Shortness of Breath 07/19/19 20:51 07/24/19 20:50 Albuterol/ Ipratropium (Albuterol/ Ipratropium) 3 ml Q4HRT HHN 07/20/19 15:00 07/25/19 14:59 07/20/19 20:04 Chlorhexidine Gluconate (Val-Hex 2%) 1 applic DAILY TOPIC 07/21/19 22:30 08/20/19 22:29 07/22/19 07:58 Dextrose/Sodium Chloride 1,000 ml @ 50 mls/hr Q20H IV 07/20/19 15:00 08/18/19 20:50 07/22/19 03:04 Diphenhydramine HCl (Benadryl) 50 mg Q4H PRN IVP Itching 07/19/19 20:51 08/18/19 20:50 07/22/19 07:56 Hydromorphone HCl (Dilaudid) 2 mg Q4H PRN IVP Severe Pain (Pain Scale 7-10) 07/19/19 20:51 07/26/19 20:50 07/22/19 07:56 Levofloxacin (Levaquin) 750 mg DAILY ORAL 07/20/19 09:00 07/24/19 08:59 07/22/19 08:09 Methadone HCl (Methadone HCl) 60 mg Q6H ORAL 07/19/19 21:00 07/24/19 08:59 07/22/19 09:51 Alex Nash MD Jul 22, 2019 11:58
[2019-07-22 12:00] VITALS: BP 139/95
[2019-07-22] MEDS ORDERED: CRUTCH1 EACH MC ×2 (13:18→13:20)
[2019-07-22] MEDS ORDERED: Heplock Flush 100 units/ml 3 ml syr INJ SCH (15:00)
--- NOTE | 2019-07-22 15:46 | NUR ---
CASE MANAGEMENT:REVIEW 07/22/19 SI: SICKLE CELL CRISIS. CHEST PAIN. PNA 98.5 68 19 139/95 98% ON 2L/NC WBC 11.9 H/H 8.0/23.8 ALK PHOS 235 AST 49 IS: IV D5NS@50ML/HR LEVAQUIN PO QD HEPARIN SQ X1 METHADONE PO Q6HRS IV DILAUDID Q4HRS PRN : 4E MED SURG DCP: FROM HOME PLAN: PAIN MGMT AND HYDRATION
--- NOTE | 2019-07-22 16:00 | NUR ---
NURSE NOTES: not given methadone at this time as patient is for discharge and currently deny pain. Charge nurse Soheila hughes.
--- NOTE | 2019-07-22 16:40 | NUR ---
NURSE NOTES: patient has been discharged to home: patient lives very far so asked taxi to transport him to a pharmacy on [address] [place] [address] where his GF will pick him up and drive him home. Patient signed belongings list and left with all his belongings, including small oxygen tank and carrier. Given a pair of crutches for patient mobility, refused walker. Taken off access from port-a-cath, after heparinizing with 200 units heparinized solution. No bleeding noted. Left message to his NOK listed on the facesheet. Given discharge packet with medication reconciliation, information on his condition and reminder to follow up with his PCP, oncologist and tassel maker. Given a taxi voucher to patient, [employer] and nurse accompanied him to hospital entrance where his taxi was awaiting him.
--- NOTE | 2019-07-22 22:56 | Pulmonology Progress Note ---
Assessment/Plan Assessment/Plan Pulmonary Progress Note HPI Patient is a 43 year old man with Past Medical History of Asthma, HTN, Sickle Cell Disease, admitted with exacerbation of SCD with complaints of diffuse body pain, cough, congestion for several days. No current vomiting Less chest pain No cough On Levaquin possible chest infection IVF NOW dc Allergies: PENTAMIDINE ISETHIONATE AMPICILLIN Tolerated CEftriaxone 01/02/18 KETOROLAC MORPHINE PHENYTOIN Past Medical History: Sickle cell disease, Asthma, Seizure history, bilateral AVN hips, Hypertension All Other Systems: negative except mentioned in HPI Physical Exam Vital Signs Noted General Appearance: no apparent distress, on RA Head: normocephalic, atraumatic Eyes: bilateral eye PERRL ENT: EOM grossly intact, normal pharynx Neck: supple Respiratory: no respiratory distress, no retraction, no accessory muscle use, ctab Cardiovascular: regular rate, rhythm, HS1, HS2 normal Gastrointestinal: non tender, soft Musculoskeletal: normal inspection Neurologic: alert Skin: no rash Lymphatic: no adenopathy Impression: Sickle cell disease with crisis s/p Transfusion, IVF Possible Chest infection Atelectasis Possible volume overload Plan - Continue current po antibiotics - HHN - Pain Mx - PPX - PPX - OK to DC with PO Levaquin, bronchodilators, incentive spirometer - Has home O2 Labs Noted EKG: Rhythm: NSR ST Segments: other - Specific ST and T wave changes Chest X-Ray: no consolidation, no pneumothorax, other - Patchy markings bilaterally question interstitial disease versus fluid versus pneumonia Subjective ROS Limited/Unobtainable: No Allergies: Coded Allergies: PENTAMIDINE ISETHIONATE (Verified Allergy, Severe, palpitations, 08/27/17) AMPICILLIN (Verified Allergy, Unknown, hives, 01/05/18) Tolerated CEftriaxone 01/02/18 KETOROLAC (Verified Allergy, Unknown, 08/03/16) MORPHINE (Verified Allergy, Unknown, 08/03/16) PHENYTOIN (Verified Allergy, Unknown, 08/03/16) Objective Last 24 Hour Vital Signs Date Time Temp Pulse Resp B/P (MAP) Pulse Ox O2 Delivery O2 Flow Rate FiO2 07/22/19 12:29 98.5 07/22/19 12:00 98.5 68 19 139/95 (110) 98 07/22/19 09:00 Nasal Cannula 2.0 07/22/19 08:00 98.2 72 18 125/79 (94) 99 07/22/19 07:42 98 Nasal Cannula 3.0 32 07/22/19 07:42 75 18 99 Nasal Cannula 3.0 32 07/22/19 03:46 97.9 07/22/19 03:31 97.9 77 18 129/95 (106) 99 07/21/19 23:29 97.7 81 18 114/81 (92) 99 Intake and Output 07/21/19 07/22/19 19:00 07:00 Intake Total 480 ml 710 ml Output Total 1850 ml 900 ml Balance -1370 ml -190 ml Intake Oral 480 ml 360 ml IV Total 350 ml Output Urine Total 1850 ml 900 ml Laboratory Tests 07/22/19 05:00: White Blood Count 11.9H, Red Blood Count 2.61L, Hemoglobin 8.0L, Hematocrit 23.8L, Mean Corpuscular Volume 91, Mean Corpuscular Hemoglobin 30.5, Mean Corpuscular Hemoglobin Concent 33.4, Red Cell Distribution Width 16.3H, Platelet Count 421, Mean Platelet Volume 7.0, Neutrophils (%) (Auto) 51.5, Lymphocytes (%) (Auto) 33.4, Monocytes (%) (Auto) 6.1, Eosinophils (%) (Auto) 8.5H, Basophils (%) (Auto) 0.5, Sodium Level 139, Potassium Level 4.8, Chloride Level 105, Carbon Dioxide Level 32, Anion Gap 2L, Blood Urea Nitrogen 18, Creatinine 1.0, Estimat Glomerular Filtration Rate > 60, Glucose Level 107H, Calcium Level 9.1, Total Bilirubin 0.5, Aspartate Amino Transf (AST/SGOT) 49H, Alanine Aminotransferase (ALT/SGPT) 69, Alkaline Phosphatase 235H, Total Protein 7.2, Albumin 3.1L, Globulin 4.1, Albumin/Globulin Ratio 0.8L Artie Finnegan MD Jul 22, 2019 22:56
--- NOTE | 2019-07-22 23:22 | General Progress Note ---
Assessment/Plan Assessment/Plan: Assessment - Sickle cell crisis - leukocytosis - abnormal LFT - negative U/S and hepatitis serologies, improved Recommendations - IVF - Follow LFT - hepatitis serologies - neg - abdominal ultrasound - s/p mimi - check CK -neg Subjective Allergies: Coded Allergies: PENTAMIDINE ISETHIONATE (Verified Allergy, Severe, palpitations, 08/27/17) AMPICILLIN (Verified Allergy, Unknown, hives, 01/05/18) Tolerated CEftriaxone 01/02/18 KETOROLAC (Verified Allergy, Unknown, 08/03/16) MORPHINE (Verified Allergy, Unknown, 08/03/16) PHENYTOIN (Verified Allergy, Unknown, 08/03/16) Subjective Feels OK no abdominal complaints eating better for discharge today Objective Last 24 Hour Vital Signs Date Time Temp Pulse Resp B/P (MAP) Pulse Ox O2 Delivery O2 Flow Rate FiO2 07/22/19 12:29 98.5 07/22/19 12:00 98.5 68 19 139/95 (110) 98 07/22/19 09:00 Nasal Cannula 2.0 07/22/19 08:00 98.2 72 18 125/79 (94) 99 07/22/19 07:42 98 Nasal Cannula 3.0 32 07/22/19 07:42 75 18 99 Nasal Cannula 3.0 32 07/22/19 03:46 97.9 07/22/19 03:31 97.9 77 18 129/95 (106) 99 07/21/19 23:29 97.7 81 18 114/81 (92) 99 Intake and Output 07/21/19 07/22/19 19:00 07:00 Intake Total 480 ml 710 ml Output Total 1850 ml 900 ml Balance -1370 ml -190 ml Intake Oral 480 ml 360 ml IV Total 350 ml Output Urine Total 1850 ml 900 ml Laboratory Tests 07/22/19 05:00: White Blood Count 11.9H, Red Blood Count 2.61L, Hemoglobin 8.0L, Hematocrit 23.8L, Mean Corpuscular Volume 91, Mean Corpuscular Hemoglobin 30.5, Mean Corpuscular Hemoglobin Concent 33.4, Red Cell Distribution Width 16.3H, Platelet Count 421, Mean Platelet Volume 7.0, Neutrophils (%) (Auto) 51.5, Lymphocytes (%) (Auto) 33.4, Monocytes (%) (Auto) 6.1, Eosinophils (%) (Auto) 8.5H, Basophils (%) (Auto) 0.5, Sodium Level 139, Potassium Level 4.8, Chloride Level 105, Carbon Dioxide Level 32, Anion Gap 2L, Blood Urea Nitrogen 18, Creatinine 1.0, Estimat Glomerular Filtration Rate > 60, Glucose Level 107H, Calcium Level 9.1, Total Bilirubin 0.5, Aspartate Amino Transf (AST/SGOT) 49H, Alanine Aminotransferase (ALT/SGPT) 69, Alkaline Phosphatase 235H, Total Protein 7.2, Albumin 3.1L, Globulin 4.1, Albumin/Globulin Ratio 0.8L Height (Feet): 5 Height (Inches): 11.00 Weight (Pounds): 138 Objective Thin AA man NCAT, disconjugate gaze neck supple CTA RR Abd soft ND NT no edema Charlotte Shaffer MD Jul 22, 2019 23:22
--- NOTE | 2019-07-23 09:35 | NUR ---
*--* INSURANCE *--* ALL CLINICALS AND REVIEWS HAVE BEEN FAXED TO: [facility] P: [phone] F: [phone]
--- NOTE | 2019-07-24 07:41 | Discharge Summary ---
Discharge Summary Discharge Summary _ DATE OF ADMISSION: 07/16/2019 DATE OF DISCHARGE: 07/22/2019 DISCHARGED BY: Dr. Recinos REASON FOR ADMISSION: 43 years old male with past medical history of sickle cell disease, presented with complaint of back pain , radiating to the chest and bilateral thigh pain. Patient had frequent admission prior for sickle cell crisis. Patient also reported cough and congestion, which started few days ago. No fever or chills. No abdominal pain , no diarrhea. Upon evaluation patient was tachypneic with low-grade fever. Laboratory work-up revealed leukocytosis with WBC 21.5 ,hemoglobin 8.1 , hematocrit 25. Stable electrolytes. BUN 26, creatinine 1.2. Glucose 135. Troponin negative. Pro BNP 60 .EKG revealed sinus rhythm with a nonspecific ST and T wave changes. AST 150, ALT 192 . Lipase 26 . Urine toxicology screen was negative . Chest x-ray demonstrated bilateral interstitial and airspace infiltrates versus edema. Patient subsequently admitted for further management. CONSULTANTS: oyster bed worker Dr. Ashton pulmonary Dr. Finnegan ID specialist Dr. Nash GI specialist Dr. Shaffer police cadet/oncologist Dr. Dutton pain specialist Dr. Perera HOSPITAL COURSE: Patient admitted initially to monitored floor. Patient started on generous IV hydration. Supplemental oxygen provided as needed to keep oximetry above 92%. Playback Operator followed. Serial troponin were negative. EKG revealed no acute ischemic changes. Echocardiogram revealed preserved ejection fraction of 60% with no evidence of wall motion abnormality. Right ventricular systolic pressure of 63 consistent with severe pulmonary hypertension. Patient was ruled out for acute myocardial infarction. Per cardiology , chest pain was likely due to sickle cell anemia. Swimming Pool Attendant followed. Patient presented in crisis with total body pain and chest pain. Hemoglobin and hematocrit were closely monitored with goal to keep hemoglobin above 7. Epogen and iron were not particularly indicated at this time. Patient undergone transfusion of 1 unit of packed red blood cells for hemoglobin 6.7. Prior to discharge hemoglobin 8, hematocrit 23.8. Patient with history of DVT bilateral lower extremity. Per police cadet , anticoagulation was hold at this time. Patient was continued on hydroxyurea. Pain management was addressed as per pain specialist recommendation . Pain was eventually controlled. Infectious disease specialist followed. Follow-up chest x-ray revealed increased bibasilar opacity and patchy opacity . Leukocytosis was improving. Patient was on empiric antibiotics. Prior to discharge WBC 11.9, no fevers . Patient completed antibiotic while in the hospital. Bronchodilator treatment provided. Incentive spirometry encouraged while in the bed. GI specialist followed. Abdominal ultrasound revealed borderline hepatomegaly. No evidence of biliary ductal dilatation. 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 Slightly increased renal echogenicity , suspected chronic medical renal disease . No evidence of hydronephrosis. Hepatitis panel was negative. HIV test was nonreactive. LFTs were closely monitored : AST trended down from 150- to 49 and ALT from 192 to 69. Total bilirubin stable. Supportive care provided. Seizure precaution maintained. No evidence of seizure activity while in the hospital;. Patient clinically improved . Patient had oxygen at home. Patient clinically stabilized and was ready for discharge home. FINAL DIAGNOSES: Sepsis Pneumonia Sickle cell disease with pain crisis Sickle cell anemia Asthma History of DVT bilateral lower extremity Seizure disorder Avascular necrosis bilateral hips Pulmonary hypertension Transaminitis Penicillin allergy Status post cholecystectomy DISCHARGE MEDICATIONS: See Medication Reconciliation list. DISCHARGE INSTRUCTIONS: Patient was discharged home. Follow up with police cadet/primary care provider in one week. I have been assigned to dictate discharge summary for this account. I was not involved in the patient's management. Mikayla Camara NP Jul 24, 2019 07:41
== END 2019-07-22 16:40 | disposition home or self-care (01) | DRG 871 ==
LOC: EMR 12:35 → 2E 13:29 → EDBEDREQ 19:12 → 4E 07-19 20:30
PROC: 30233N1 Transfusion of Nonautologous Red Blood Cells into Peripheral Vein, Percutaneous Approach (ICD-10-PCS; principal; 2019-07-19)
DX: A41.9 Sepsis, unspecified organism (principal); D57.01 Hb-SS disease with acute chest syndrome; J18.9 Pneumonia, unspecified organism; M87.852 Other osteonecrosis, left femur; M87.851 Other osteonecrosis, right femur; G40.89 Other seizures; I82.503 Chronic embolism and thrombosis of unspecified deep veins of lower extremity, bilateral; Z88.6 Allergy status to analgesic agent; Z88.1 Allergy status to other antibiotic agents; Z88.8 Allergy status to other drugs, medicaments and biological substances; J44.9 Chronic obstructive pulmonary disease, unspecified; I27.20 Pulmonary hypertension, unspecified; Z90.49 Acquired absence of other specified parts of digestive tract; R74.0 Nonspecific elevation of levels of transaminase and lactic acid dehydrogenase [LDH]; Z88.0 Allergy status to penicillin
CPT/HCPCS: 36415; 71045; 76700; 80048; 80053; 80307; 81003; 82550; 83690; 83880; 84484; 85007; 85025; 85044; 86703; 86705; 86709; 86803; 86850; 86900; 86901; 86920; 87340; 93005; 93306; 94640; 94664; 96361; 96365; 99291; J7030; J7620

== ENCOUNTER 2019-10-24 14:46 | Inpatient (IN) | payer MEDICARE, MEDICAID ==
[~2019-10-24] VITALS: Ht 180.3 cm; Wt 78.0 kg
[~2019-10-24 14:46] MED LIST changes: +CRUTCH1 EACH MC
--- NOTE | 2019-10-24 14:59 | NUR ---
ED Nurse Note: pt placed in private room; droplet precautions observed.
--- NOTE | 2019-10-24 15:00 | NUR ---
ED Nurse Note: patient ambulated to ed c/o sob and lower back sickle cell pain x1 week. pt presents with cough; pt wearing mask. initial spo2 70% at 6lmp during triage. spo2 currently 98%o n 6lmp. per patient, he is usually on 6lmp. pt ao4. vss. pt reports lower back pain 10/10; patient calm and comfortable. ambulates with steady gait. continent x 2; provided patient with urinal. patient refuses to wear gown. attached to monitor; all safety measures met.
--- NOTE | 2019-10-24 15:05 | NUR ---
ED Nurse Note: deyvi marquez, postpone ekg until orderd; confirmed and noted. imaging done at bedside.
[2019-10-24 15:30] VITALS: BP 132/79
[2019-10-24] MEDS ORDERED: HYDROmorphone 2 MG in NS 55 ML IV ONE (15:30)
[2019-10-24] MEDS ORDERED: cefTRIAXone 1 GM in NS 55 ML IVPB ONE (15:30)
--- NOTE | 2019-10-24 15:30 | NUR ---
ED Nurse Note: right upper chest portacath accessed. blood, urine, initial lactic, blood cultures, flu covid 19 and mrsa swabs collected; sent down to lab. patient refused vre cre swab. patient refused to wear hospital gown; states "it makes me itchy". patient agreed to remove shirt; provided patient with blanket. patient calm and cooperative. remains on 6L NC spo2 99%. reports lower back sickle cell pain 10/10. administered analgesics and fluids; patient reports slight relief of pain.
--- NOTE | 2019-10-24 15:34 | Diagnostic Imaging Report ---
Indication: Shortness of breath Technique: One view of the chest Comparison: 07/20/2019 Findings: Bilateral diffuse right greater than left mostly interstitial disease persists. This is very similar to the previous exam as well as earlier studies. There is a right chest port catheter. The heart is borderline enlarged. Impression: Bilateral diffuse right greater than left most interstitial disease, essentially unchanged since prior study 07/20/2019. Suspect findings are mostly chronic, although superimposed acute edema or inflammation also possible. Correlate with clinical findings Right chest port catheter again noted
--- NOTE | 2019-10-24 15:47 | Emergency Room Report ---
History of Present Illness General Chief Complaint: Dyspnea/Respdistress Source: Medical Record (Yemi Solano) Present Illness HPI 43-year-old male with history of sickle cell anemia currently under the care of a choral teacher here complaining of 1 week of generalized body ache, cough and congestion. Patient appears to be having low O2 sat as well as elevated respiratory rate. Patient is afebrile upon arrival. Patient is taking hydromorphone at home. Keeps requesting hydromorphone and Benadryl. Appears to be in no distress at this time. After being in room ER for 30 minutes O2 sat went up to 100%. Diffuse bilateral infiltrates noted on chest x-ray. Denies chest pain, headache and dizziness. Shortness of breath. Has not taken medication for symptom relief. Denies any recent travel. Denies abdominal pain , nausea vomiting diarrhea. Patient reported that he was recently 6L oxygen at home (Yemi Solano) Allergies: Coded Allergies: PENTAMIDINE ISETHIONATE (Verified Allergy, Severe, palpitations, 08/27/17) AMPICILLIN (Verified Allergy, Unknown, hives, 01/05/18) Tolerated CEftriaxone 01/02/18 KETOROLAC (Verified Allergy, Unknown, 08/03/16) MORPHINE (Verified Allergy, Unknown, 08/03/16) PHENYTOIN (Verified Allergy, Unknown, 08/03/16) COVID-19 Screening Contact w/high risk pt: No Recent Travel to affected area: No Experienced COVID-19 symptoms?: Yes COVID-19 symptoms experienced: Shortness of Breath, Cough (Yemi Solano) Patient History Past Medical History: see triage record Past Surgical History: none Pertinent Family History: none Immunizations: UTD Reviewed Nursing Documentation: PMH: Agreed; PSxH: Agreed (Yemi Solano) Nursing Documentation-PMH Hx Hypertension: Yes Hx Asthma: Yes Hx COPD: Yes Hx Cancer: No Hx Gastrointestinal Problems: Yes Hx Neurological Problems: Yes Hx Seizures: Yes (Yemi Solano) Review of Systems All Other Systems: negative except mentioned in HPI (Yemi Solano) Physical Exam Vital Signs Date Time Temp Pulse Resp B/P (MAP) Pulse Ox O2 Delivery O2 Flow Rate FiO2 10/24/19 14:48 98.8 97 25 152/83 (106) 70 Nasal Cannula 2.0 Sp02 EP Interpretation: abnormal - O2 sats 70, respiratory rate 25 General Appearance: no apparent distress, alert, GCS 15, non-toxic Head: normocephalic, atraumatic Eyes: bilateral eye normal inspection, bilateral eye PERRL ENT: hearing grossly normal, normal pharynx, no angioedema, normal voice Respiratory: chest non-tender, no retraction, no accessory muscle use, no wheezing, crackles - Diffuse bilateral, speaking full sentences Cardiovascular #1: regular rate, rhythm, no edema, no murmur Gastrointestinal: non tender, soft, no mass Genitourinary: no CVA tenderness Musculoskeletal: back normal Neurologic: alert, motor strength/tone normal, oriented x3, sensory intact, responsive, speech normal Psychiatric: normal inspection, judgement/insight normal Skin: no rash Lymphatic: no adenopathy (Yemi Solano) Medical Decision Making PA Attestation All diagnoses and treatment plans were reviewed and discussed with my supervising physician Dr. Burton (Yemi Solano) Diagnostic Impression: Primary Impression: Suspected COVID-19 virus infection Additional Impressions: Respiratory distress Sickle cell anemia ER Course 43-year-old male with history of sickle cell anemia currently under the care of a choral teacher here complaining of 1 week of generalized body ache, cough and congestion. Patient appears to be having low O2 sat as well as elevated respiratory rate. Patient is afebrile upon arrival. Patient is taking hydromorphone at home. Keeps requesting hydromorphone and Benadryl. Appears to be in no distress at this time. After being in room ER for 30 minutes O2 sat went up to 100%. Diffuse bilateral infiltrates noted on chest x-ray. Denies chest pain, headache and dizziness. Shortness of breath. Has not taken medication for symptom relief. Denies any recent travel. Denies abdominal pain , nausea vomiting diarrhea.Patient reported that he was recently 6L oxygen at home Ddx considered but are not limited to: Coronavirus, bronchitis, PNA, URI viral, bacterial bronchitis Vital signs: are WNL, pt. is afebrile H&PE are most consistent with: Respiratory distress, coronavirus rule out, sickle cell ORDERS: Sepsis order set, influenza swab, Covid 19 swab, reticulocyte count ED INTERVENTIONS: NS bolus, Dilaudid hydromorphone NS bolus, Rocephin, azithromycin Patient was admitted with diagnosis of respiratory distress, covid rule out, sickle cell to Dr. Patricia under supervision of : Micheal pt stable at time of admission (Yemi Solano) ER Course Patient seen and examined by my PA. He has a history of sickle cell anemia and has had cough and shortness of breath for the past week. Due to patient's chronic comorbidities and suspected coronavirus infection will admit to the hospital. Patient accepted by inpatient hospitalist, Dr. Recinos. Chest x-ray did demonstrate a bilateral infiltrates, which appeared mostly chronic. Patient was placed on isolation. (Rj Burton M.D.) EKG Diagnostic Results Rate: normal Rhythm: NSR ST Segments: no acute changes Other Impression No acute ST changes (Ymei Solano) Chest X-Ray Diagnostic Results Chest X-Ray Diagnostic Results : Chest X-Ray Ordered: Yes # of Views/Limited/Complete: 1 View Indication: Shortness of Breath EP Interpretation: Yes PA Xray: Interpretation reviewed, by supervising MD, and agrees with findings. Interpretation: no effusion, no acute cardiopulmonary disease, other - diffuse infiltrate bilaterally Impression: No acute disease Electronically Signed by: Yemi WANG Scribe Text Radiologist reported findings chronic (Yemi Solano) Last Vital Signs Date Time Temp Pulse Resp B/P (MAP) Pulse Ox O2 Delivery O2 Flow Rate FiO2 10/24/19 14:48 98.8 97 25 152/83 (106) 70 Nasal Cannula 2.0 (Yemi oSlano) Disposition: ADMITTED INPATIENT Condition: Stable Yemi Solano Oct 24, 2019 15:47 Rj Burton M.D. Oct 24, 2019 19:03
[2019-10-24 16:42] LABS: HEMOGLOBIN 7.3 G/DL (14.2-18.0); MEAN CORPUSCULAR VOLUME 90 FL (80-99); PLATELET COUNT 230 K/UL (150-450); RED BLOOD COUNT 2.56 M/UL (4.70-6.10); RED CELL DISTRIBUTION WIDTH 19.1 % (11.6-14.8); WHITE BLOOD COUNT 19.2 K/UL (4.8-10.8)
[2019-10-24 16:44] LABS: INR 1.1 (0.9-1.1)
[2019-10-24 17:15] LABS: ALANINE AMINOTRANSFERASE 89 U/L (12-78); ALBUMIN 3.6 G/DL (3.4-5.0); ALBUMIN/GLOBULIN RATIO 1.2 (1.0-2.7); ALKALINE PHOSPHATASE 210 U/L (46-116); ASPARTATE AMINO TRANSFERASE 64 U/L (15-37); BILIRUBIN,TOTAL 0.9 MG/DL (0.2-1.0); BLOOD UREA NITROGEN 30 mg/dL (7-18); CALCIUM 9.3 MG/DL (8.5-10.1); CKMB 1.4 NG/ML (0.0-3.6); CREATINE KINASE 24 U/L (26-308); CREATININE 1.1 MG/DL (0.55-1.30); POTASSIUM 5.2 MMOL/L (3.5-5.1)
[2019-10-24 17:30] VITALS: BP 117/79
--- NOTE | 2019-10-24 19:00 | NUR ---
ED Nurse Note: patient resting in bed with no acute distress. vss. belongings list completed with patient.
[2019-10-24 19:30] VITALS: BP 121/8
--- NOTE | 2019-10-24 20:29 | NUR ---
ED Nurse Note: patient states pain level 10/10 intolerable. patient restless. notified ermd. received verbal order for dilaudid 2mg ivp; noted and carried out.
--- NOTE | 2019-10-24 21:05 | Pulmonology Progress Note ---
Assessment/Plan Assessment/Plan Pulmonary Consultation HPI 43-year-old male with history of sickle cell anemia admitted complaining of 1 week of generalized body ache, cough and congestion. Noted to have low O2 saturations and tachypnea in the ED, afebrile upon arrival, improved with O2 supplementation. Patient follows with Director Private and Pain Management, is taking hydromorphone at home. Appears to be in no distress at this time. Chronic bilateral infiltrates noted on chest x-ray. Denies chest pain, headache and dizziness. Has shortness of breath. Denies abdominal pain, nausea vomiting diarrhea. Patient is on home oxygen, up to 6L/min at home Allergies: PENTAMIDINE ISETHIONATE (Verified Allergy, Severe, palpitations, 08/27/17) AMPICILLIN (Verified Allergy, Unknown, hives, 01/05/18) Tolerated CEftriaxone 01/02/18 KETOROLAC (Verified Allergy, Unknown, 08/03/16) MORPHINE (Verified Allergy, Unknown, 08/03/16) PHENYTOIN (Verified Allergy, Unknown, 08/03/16) Past Medical History: Sickle Cell Disease, Asthma/COPD, Hypertension, Seizure History, GERD All Other Systems: negative except mentioned in HPI Physical Exam Vital Signs Noted Date Time Temp Pulse Resp B/P (MAP) Pulse Ox O2 Delivery O2 Flow Rate FiO2 10/24/19 14:48 98.8 97 25 152/83 (106) 70 Nasal Cannula 2.0 General Appearance: no apparent distress, alert, GCS 15, non-toxic Head: normocephalic, atraumatic Eyes: bilateral eye normal inspection, bilateral eye PERRL ENT: hearing grossly normal, normal pharynx, no angioedema, normal voice Respiratory: chest non-tender, no retraction, no accessory muscle use, no wheezing, crackles - Diffuse bilateral, speaking full sentences Cardiovascular: regular rate, rhythm, HS1, HS2, RRR, no edema, no murmur Gastrointestinal: non tender, soft, no mass Genitourinary: no CVA tenderness Musculoskeletal: back normal Neurologic: alert, motor strength/tone normal, oriented x3, sensory intact, responsive, speech normal Skin: no rash Impression: Sickle cell disease Chest syndrome Pneumonia versus suspected COVID-19 virus infection Possible SCD exacerbation Respiratory distress Asthma/COPD Hypertension Seizure History GERD Plan O2 PRN IVF IV Antibiotics - Ceftriaxone/Azithromycin Bronchodilators PPX Monitor labs Pain medications Await cultures/viral studies, if Covid19 positive add Hydroxychloroquine 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 EKG: Rate: normal Rhythm: NSR ST Segments: no acute changes Other Impression No acute ST changes Chest X-Ray: no effusion, no acute cardiopulmonary disease, other - diffuse infiltrates bilaterally, appear to be chronic changes Subjective ROS Limited/Unobtainable: No Allergies: Coded Allergies: PENTAMIDINE ISETHIONATE (Verified Allergy, Severe, palpitations, 08/27/17) AMPICILLIN (Verified Allergy, Unknown, hives, 01/05/18) Tolerated CEftriaxone 01/02/18 KETOROLAC (Verified Allergy, Unknown, 08/03/16) MORPHINE (Verified Allergy, Unknown, 08/03/16) PHENYTOIN (Verified Allergy, Unknown, 08/03/16) Objective Last 24 Hour Vital Signs Date Time Temp Pulse Resp B/P (MAP) Pulse Ox O2 Delivery O2 Flow Rate FiO2 10/24/19 19:30 98.7 91 22 121/8 98 Nasal Cannula 6.0 10/24/19 17:30 98.7 93 23 117/79 98 Nasal Cannula 6.0 10/24/19 16:12 98.7 10/24/19 15:30 97 22 Nasal Cannula 6.0 10/24/19 15:30 98.8 92 22 132/79 99 Nasal Cannula 6.0 10/24/19 14:48 98.8 97 25 152/83 (106) 70 Nasal Cannula 2.0 Microbiology Date/Time Source Procedure Growth Status 10/24/19 15:30 Nasal Nares - Final Complete 10/24/19 15:30 Nasal Nares - Final Complete Laboratory Tests 10/24/19 15:30: White Blood Count 19.2H, Red Blood Count 2.56L, Hemoglobin 7.3L, Hematocrit 23.0L, Mean Corpuscular Volume 90, Mean Corpuscular Hemoglobin 28.6, Mean Corpuscular Hemoglobin Concent 31.9L, Red Cell Distribution Width 19.1H, Platelet Count 230, Mean Platelet Volume 8.3, Neutrophils (%) (Auto) , Lymphocytes (%) (Auto) , Monocytes (%) (Auto) , Eosinophils (%) (Auto) , Basophils (%) (Auto) , Differential Total Cells Counted 100, Neutrophils % ( Manual) 57, Lymphocytes % (Manual) 19L, Monocytes % (Manual) 8, Eosinophils % ( Manual) 16H, Basophils % (Manual) 0, Band Neutrophils 0, Platelet Estimate Adequate, Platelet Morphology Normal, Polychromasia 1+, Hypochromasia 2+, Anisocytosis 2+, Reticulocyte Count 0.6, Prothrombin Time 11.7H, Prothromb Time International Ratio 1.1, Activated Partial Thromboplast Time 39H, Sodium Level 140, Potassium Level 5.2H, Chloride Level 108H, Carbon Dioxide Level 38H, Blood Urea Nitrogen 30H, Creatinine 1.1, Estimat Glomerular Filtration Rate > 60, Glucose Level 104, Lactic Acid Level 0.60, Calcium Level 9.3, Total Bilirubin 0.9, Aspartate Amino Transf (AST/SGOT) 64H, Alanine Aminotransferase (ALT/SGPT) 89H, Alkaline Phosphatase 210H, Total Creatine Kinase 24L, Creatine Kinase MB 1.4, Creatine Kinase MB Relative Index 5.8, Troponin I 0.012, Pro-B-Type Natriuretic Peptide 355H, Total Protein 6.5, Albumin 3.6, Globulin 2.9, Albumin/ Globulin Ratio 1.2 10/24/19 15:45: Urine HCG, Qualitative Negative Artie Finnegan MD Oct 24, 2019 21:05
[2019-10-24 21:34] LABS: CHLORIDE 107 MMOL/L (98-107); SODIUM 142 MMOL/L (136-145)
[2019-10-24 21:35] LABS: ANION GAP 6 mmol/L (5-15); CARBON DIOXIDE 29 MMOL/L (21-32)
[2019-10-24 22:56] VITALS: BP 117/77
--- NOTE | 2019-10-24 22:56 | NUR ---
ED Nurse Note: patient resting in bed with no acute distress. provided patient with nourishment. ao4. vss. will continue to monitor.
--- NOTE | 2019-10-25 00:46 | NUR ---
ED Nurse Note: report given to dom bose. patient to be admitted to sdu 236-2 under the care of joycelyn cheng. patient in stable condition. patient on phone in bed with no acute distress. vss.
[2019-10-25 00:59] VITALS: BP 121/77
--- NOTE | 2019-10-25 01:55 | NUR ---
TRANSFER TO FLOOR: Patient transferred to SDU 236-2 as ordered, per MD SHARRI. Report given to CYNTHIA VILLALOBOS. PATIENT STABLE FOR TRANSFER. PATIENT TRANSFERRED VIA GURNEY WITH OLIVIER ALVARADO AND RN. BELONGINGS AND ADMISSION PACKET SENT WITH PATIENT. DROPLET PRECAUTIONS OBSERVED DURING TRANSPORT. ENDORSED PT PERSONAL O2 TANK AND O2 CARRIER.
[2019-10-25 02:00] VITALS: BP 122/86
--- NOTE | 2019-10-25 02:20 | NUR ---
NURSE NOTES: Pt transferred from ED to SDU via gurney without incident. Received patient and report from GRISELDA Fitzgerald. Patient is observed to be alert and oriented x3-4. Pt noted to be aggressive, demanding and exhibiting pain med seeking behavior. Pt stating what medications he wants, what doses hes seeking and the rate in which they are to be given in which combination. Pt states he has 10/10 pain in his back and extremities r/t sickle cell crisis. Pt is currently on 6L NC with no s/sx of acute distress. Pt noted to be SR on tele monitor with a current HR of 95 noted, no s/sx of acute distress. Right upper subclavian portacath noted. Access obtained in ED; dressing remains clean, dry and intact. Pt declining peripheral IV catheter placement per report. Pt refusing to change in to hospital gown. Pt refusing skin line assessment. Skin report to be intact. Pt refusing VRE/CRE swabs. Pt refusing to abide by droplet precautions. Pt education on COVID and hospital policy. Pt refusing to allow 2 side rails to be raised on bed. Pt educated on hospital policy, safety, seizure and fall precautions. Observed by GRISELDA Parson. Pt continues to remove side rail padding. Pt refusing to use call light for assistance despite being ambulatory. Pt refusing to empty pockets to confirm belongings at bedside. Phone remains with patient. Diagnostics reviewed. Fall, Aspiration and Seizure precautions observed. Pt remains resting in bed; Bed remains in the lowest position with the safety wheels engaged, call light within reach, side rails up x3 and bed alarm activated. Will continue plan of care. Will contact admitting physician for orders. Will continue to monitor.
[2019-10-25] MEDS ORDERED: HYDROmorphone 1mg/ml Carpuject IVP PRN (02:30)
--- NOTE | 2019-10-25 02:58 | NUR ---
NURSE NOTES: Attempted to remove Methadone from pyxis system. Insufficient supply noted; hospital wide search prompted "insufficient quantities" error message. Called [facility] and spoke with pharmacist. No other alternatives except to call physician. Will call pain management doctor. Will continue to monitor.
--- NOTE | 2019-10-25 03:05 | NUR ---
NURSE NOTES: Placed a call to Dr Perera in regards to Methadone as well as pt declining Dilaudid without administration of Benadryl IV. Will await call back. Will continue to monitor.
--- NOTE | 2019-10-25 03:16 | NUR ---
NURSE NOTES: Pt states that he has 10/10 pain in his back and extremities r/t sickle cell crisis. Obtained orders for PRN Dilaudid. Pt states he only wants his Dilaudid with Benadryl 50mg IVP given at the same time. Pt refuses Dilaudid administration. Witnessed waste with Shaina Acosta RN. Advised client that Dr Perera has already been called regarding Methadone and will need to wait to here back. Pt upset that doctor not on unit 06/02 and demanding that we just put in the pain management orders that he wants. Charge nurse to speak with pt. Will continue to monitor.
[2019-10-25 04:00] VITALS: BP 120/85
--- NOTE | 2019-10-25 04:06 | NUR ---
NURSE NOTES: Placed an additional call to Dr Perera regarding aforementioned concerns. Will await call back. Will continue to monitor.
[2019-10-25] MEDS: DiphenhydrAMINE 25mg Tab ORAL PRN ×2 (04:25→20:15)
--- NOTE | 2019-10-25 04:33 | NUR ---
NURSE NOTES: Pt elects Benadryl PO and administration of Dilaudid for pain. Pt states hes itching. Both medications administered as ordered. No adverse effects noted. Will continue to monitor.
[2019-10-25] MEDS ORDERED: Azithromycin 500 MG in D5W 275 ML IV SCH (05:00)
--- NOTE | 2019-10-25 05:00 | NUR ---
NURSE NOTES: Pt refusing AM labs draw from both peripheral draw and port a cath. Pt educated but continues to decline. Will continue to monitor.
[2019-10-25] MEDS: HYDROmorphone 4mg tab ORAL SCH ×5 (05:23→22:00)
--- NOTE | 2019-10-25 05:23 | NUR ---
NURSE NOTES: Dilaudid tablets knocked to ground during medication administration. Tablets were wasted, Caleb Espinoza RN witnessed waste. New dilaudid tablets removed from [facility]. Will contact pharmacy.
--- NOTE | 2019-10-25 05:58 | NUR ---
NURSE NOTES: Pt declines administration of IV abx. Pt noted to be verbally aggressive and disagreeable. Attempted to contact Dr Perera for pain management. Spoke with pharmacist at [facility] and noted that Methadone not loaded in Pyxis system. Time changed to 0900 in order to allow for onsite pharmacy to open. Will endorse.
--- NOTE | 2019-10-25 07:17 | NUR ---
HAND-OFF: Report given to GRISELDA Rios. Pt remains stable at this time.
--- NOTE | 2019-10-25 07:20 | NUR ---
NURSE NOTES: Report received from Juliano VILLALOBOS.Pt sitting up on side of bed awake,alert in no resp distress ,no signs of discomfort,SR on the monitor.Pt ,upset ,he did not like his breakfast,will call dietary .
[2019-10-25] MEDS: Albuterol 90mcg Inhaler 8gm INH SCH ×2 (08:01→13:20)
[2019-10-25] MEDS ORDERED: Lacosamide 50mg tablet ORAL SCH (09:00)
[2019-10-25] MEDS ORDERED: Heparin 5000 units/ml inj SUBQ SCH (09:00)
--- NOTE | 2019-10-25 09:00 | NUR ---
NURSE NOTES: Pt refusing V/S,and refuses blood draw,pt very uncooperative.
[2019-10-25] MEDS: Hydroxyurea 500mg cap ORAL SCH ×2 (09:50→18:37)
--- NOTE | 2019-10-25 10:36 | Consultation ---
History of Present Illness General Chief Complaint: Dyspnea/Respdistress Present Illness Allergies: Coded Allergies: PENTAMIDINE ISETHIONATE (Verified Allergy, Severe, palpitations, 08/27/17) AMPICILLIN (Verified Allergy, Unknown, hives, 01/05/18) Tolerated CEftriaxone 01/02/18 KETOROLAC (Verified Allergy, Unknown, 08/03/16) MORPHINE (Verified Allergy, Unknown, 08/03/16) PHENYTOIN (Verified Allergy, Unknown, 08/03/16) Medication History Scheduled Folic Acid* (Folic Acid*), 1 MG ORAL DAILY Hydromorphone HCl (Dilaudid), 14 MG ORAL EVERY 4 HOURS, (Reported) Hydroxyurea* (HYDREA 500mg*), 500 MG PO BID Lacosamide (Vimpat), 100 MG PO BID, (Reported) Methadone Hcl* (Methadone*), 60 MG PO Q6HR, (Reported) Scheduled PRN Diphenhydramine HCl (Benadryl), 50 MG PO Q4HR PRN for Itching, (Reported) Durable Medical Equipment Crutch (Crutch), EACH [facility], (Reported), (DME) Crutch (Crutch), [facility]ACH [facility], (Reported), (DME) Patient History Healthcare decision maker Resuscitation status Full Code Advanced Directive on File Physical Exam Last 24 Hour Vital Signs Date Time Temp Pulse Resp B/P (MAP) Pulse Ox O2 Delivery O2 Flow Rate FiO2 10/25/19 08:02 74 20 98 Nasal Cannula 4.0 36 10/25/19 08:02 76 20 97 Nasal Cannula 4.0 36 10/25/19 04:00 98.0 93 20 120/85 (97) 95 10/25/19 04:00 6.0 10/25/19 04:00 Nasal Cannula 6.0 Nasal Cannula 6.0 10/25/19 03:32 88 10/25/19 02:46 Nasal Cannula 6.0 10/25/19 02:23 81 10/25/19 02:00 98.4 95 20 122/86 (98) 97 10/25/19 01:55 98.7 95 24 122/73 97 Nasal Cannula 6.0 10/25/19 00:59 98.7 96 24 121/77 98 Nasal Cannula 6.0 10/24/19 22:56 98.7 98 26 117/77 97 Nasal Cannula 6.0 10/24/19 21:01 98.7 10/24/19 19:30 98.7 91 22 121/8 98 Nasal Cannula 6.0 10/24/19 17:30 98.7 93 23 117/79 98 Nasal Cannula 6.0 10/24/19 16:12 98.7 10/24/19 15:30 97 22 Nasal Cannula 6.0 10/24/19 15:30 98.8 92 22 132/79 99 Nasal Cannula 6.0 10/24/19 14:48 98.8 97 25 152/83 (106) 70 Nasal Cannula 2.0 Intake and Output 10/24/19 10/25/19 19:00 07:00 Intake Total 245 ml Output Total 700 ml Balance -455 ml Intake Oral 200 ml IV Total 45 ml Output Urine Total 700 ml # Voids 1 Laboratory Tests Test 10/24/19 15:30 10/24/19 15:45 White Blood Count 19.2 K/UL (4.8-10.8) H Red Blood Count 2.56 M/UL (4.70-6.10) L Hemoglobin 7.3 G/DL (14.2-18.0) L Hematocrit 23.0 % (42.0-52.0) L Mean Corpuscular Volume 90 FL (80-99) Mean Corpuscular Hemoglobin 28.6 PG (27.0-31.0) Mean Corpuscular Hemoglobin Concent 31.9 G/DL (32.0-36.0) L Red Cell Distribution Width 19.1 % (11.6-14.8) H Platelet Count 230 K/UL (150-450) Mean Platelet Volume 8.3 FL (6.5-10.1) Neutrophils (%) (Auto) % (45.0-75.0) Lymphocytes (%) (Auto) % (20.0-45.0) Monocytes (%) (Auto) % (1.0-10.0) Eosinophils (%) (Auto) % (0.0-3.0) Basophils (%) (Auto) % (0.0-2.0) Differential Total Cells Counted 100 Neutrophils % (Manual) 57 % (45-75) Lymphocytes % (Manual) 19 % (20-45) L Monocytes % (Manual) 8 % (1-10) Eosinophils % (Manual) 16 % (0-3) H Basophils % (Manual) 0 % (0-2) Band Neutrophils 0 % (0-8) Platelet Estimate Adequate Platelet Morphology Normal Polychromasia 1+ Hypochromasia 2+ Anisocytosis 2+ Reticulocyte Count 0.6 % (0.5-2.0) Prothrombin Time 11.7 SEC (9.30-11.50) H Prothromb Time International Ratio 1.1 (0.9-1.1) Activated Partial Thromboplast Time 39 SEC (23-33) H Sodium Level 142 MMOL/L (136-145) Potassium Level 5.2 MMOL/L (3.5-5.1) H Chloride Level 107 MMOL/L (98-107) Carbon Dioxide Level 29 MMOL/L (21-32) Anion Gap 6 mmol/L (5-15) Blood Urea Nitrogen 30 mg/dL (7-18) H Creatinine 1.1 MG/DL (0.55-1.30) Estimat Glomerular Filtration Rate > 60 mL/min (>60) Glucose Level 104 MG/DL (74-106) Lactic Acid Level 0.60 mmol/L (0.4-2.0) Calcium Level 9.3 MG/DL (8.5-10.1) Total Bilirubin 0.9 MG/DL (0.2-1.0) Aspartate Amino Transf (AST/SGOT) 64 U/L (15-37) H Alanine Aminotransferase (ALT/SGPT) 89 U/L (12-78) H Alkaline Phosphatase 210 U/L (46-116) H Total Creatine Kinase 24 U/L (26-308) L Creatine Kinase MB 1.4 NG/ML (0.0-3.6) Creatine Kinase MB Relative Index 5.8 Troponin I 0.012 ng/mL (0.000-0.056) Pro-B-Type Natriuretic Peptide 355 pg/mL (0-125) H Total Protein 6.5 G/DL (6.4-8.2) Albumin 3.6 G/DL (3.4-5.0) Globulin 2.9 g/dL Albumin/Globulin Ratio 1.2 (1.0-2.7) Urine HCG, Qualitative Negative (NEGATIVE) Microbiology Date/Time Source Procedure Growth Status 10/24/19 15:30 Nasal Nares - Final Complete 10/24/19 15:30 Nasal Nares - Final Complete Height (Feet): 5 Height (Inches): 11.00 Weight (Pounds): 172 Medications Current Medications Medications (Trade) Dose Ordered Sig/Anthony Route PRN Reason Start Time Stop Time Status Last Admin Dose Admin Acetaminophen (Tylenol) 650 mg Q6H PRN ORAL Mild Pain/Fever 10/25/19 02:30 11/24/19 02:29 Albuterol Sulfate (Proventil MDI) 1 puff TIDRT INH 10/25/19 07:00 10/30/19 06:59 10/25/19 08:01 Azithromycin 500 mg/Dextrose 275 ml @ 275 mls/hr Q24H IV 10/25/19 05:00 10/31/19 05:59 Ceftriaxone Sodium 1 gm/ Dextrose 55 ml @ 110 mls/hr Q24H IVPB 10/25/19 16:00 11/01/19 15:59 Dextrose/ Electrolytes 1,000 ml @ 75 mls/hr [id number] IV 10/25/19 11:00 11/24/19 10:59 Diphenhydramine HCl (Benadryl) 25 mg Q4H PRN ORAL Itching 10/25/19 02:45 11/24/19 02:44 10/25/19 04:25 Folic Acid (Folate) 1 mg DAILY ORAL 10/25/19 09:00 11/24/19 08:59 10/25/19 09:50 Heparin Sodium (Porcine) (Heparin 5000 units/ml) 5,000 units EVERY 12 HOURS SUBQ 10/25/19 09:00 12/09/19 08:59 10/25/19 09:56 Hydromorphone HCl (Dilaudid) 1 mg Q3H PRN IVP For Pain 10/25/19 02:30 11/01/19 02:29 10/25/19 04:25 Hydromorphone HCl (Dilaudid) 14 mg Q4H ORAL 10/25/19 06:00 11/01/19 05:59 10/25/19 09:49 Hydroxyurea (Hydrea) 500 mg TWICE A DAY ORAL 10/25/19 09:00 10/30/19 08:59 10/25/19 09:50 Lacosamide (Vimpat) 100 mg Q12HR ORAL 10/25/19 09:00 01/23/20 08:59 10/25/19 09:50 Methadone HCl (Methadone HCl) 60 mg Q6HR ORAL 10/25/19 07:04 11/01/19 07:03 10/25/19 07:12 Ondansetron HCl (Zofran) 4 mg Q6H PRN IVP Nausea & Vomiting 10/25/19 02:30 11/24/19 02:29 Assessment/Plan Assessment/Plan: Hematology/Oncology Consultation Requesting MD:Griffin Patricia Date of Service: 10/25/2019 Reason for consultation: Anemia and Leukocytosis, Sickle cell disease HISTORY OF PRESENT ILLNESS: 43y old male I know well, with a history of sickle cell anemia. The patient was last admitted to [facility] in June of 2018, 08/2018, and 2018, 12/2018, 06/2020 I last saw him at that time. Please see history and physical and discharge summary dictated at that time. The patient now complains of back pain that radiates to the chest as well as thigh pain b/l. The patient presented to [place] emergency room. The patient is admitted with chest pain and cough to rule out pneumonia. Hematology/Oncology was consulted for Anemia and Leukocytosis. He was a patient of in the past but has not followed up in clinic.hgb remains at 7.3 PAST MEDICAL HISTORY: Sickle cell disease, History of seizure disorder, Avascular necrosis of the bilateral hips, Avascular necrosis of bilateral knees. PAST SURGICAL HISTORY: Tonsillectomy and adenoidectomy, Left tibia fibula fracture, Open reduction and internal fixation of left tibia fibula fracture, Pneumothorax. CURRENT MEDICATIONS:,Tylenol 650 mg p.o. daily, Benadryl 25 mg 2 tablets p.o. q.4 hours p.r.n, Folic acid 1 mg p.o. daily, Gabapentin 300 mg p.o. 3 times daily, Dilaudid 4 mg 3 tablets p.o. q.4 hours, Hydroxyurea 500 mg p.o. twice daily, Vimpat 100 mg p.o. twice bin, Methadone 60 mg p.o. q.6 hours. ALLERGIES: Ampicillin, Ketoralac, Morphine, Pentamidine, Phenytoin. SOCIAL HISTORY: The patient lives with his girlfriend and children. The patient is disabled. The patient denies tobacco or alcohol use. PHYSICAL EXAMINATION: VITAL SIGNS: have been reviewed GENERAL: The patient is a well-developed and well nourished male, in no apparent distress. HEENT: Eyes, pupils are equal and responsive to light and accommodation. Extraocular movements are intact. NECK: Supple without lymphadenopathy. CHEST: Decreased crackles in bilateral bases. Otherwise, clear to auscultation without wheezes or rales. CARDIOVASCULAR: Regular rhythm and rate ABDOMEN: Soft, nontender, and nondistended. Positive bowel sounds. No evidence of hepatosplenomegaly. Currently, no rebound or guarding noted EXTREMITIES: Negative for clubbing, cyanosis, or edema. RECTAL/GENITAL: Refused. NEUROLOGIC: Cranial nerves II through XII are grossly intact without focal def ROS: Constitutional: No fever, no chills, no night sweats, no fatigue Skin: No rashes, lumps, itchiness, dryness HEENT: No LERMA, ear ache, visual changes, double vision, nosebleeds, sore throat, lumps, swollen glands Breasts: No lumps, pain, discharge Pulmonary: No cough, sputum, shortness of breath, coughing up blood, hemoptysis Cardiovascular: No chest pain, tightness, palpitations, syncope, claudication, orthopnea, PND GI: No nausea, vomiting, diarrhea, melena, hematochezia, change in appetite, abdominal pain : No dysuria, frequency, urgency, urinary incontinence, foamy urine Musculoskeletal: No joint swelling or muscle pain, trauma, back pain Neurologic: No dizziness, fainting, seizures, changes in smell or taste Psychiatric: No nervousness, stress, or depression, anxiety, hallucinations Endocrine: No weight change, heat or cold intolerance LABORATORY STUDIES: noted above ASSESSMENT/Recs # Sickle cell disease with crisis presentation with total body pain as well as cp --> IVF, benadryl, dilaudid --> No evidence of hemolysis is noted, peripheral smear has been reviewed. --> Hgb goal >7. Transfuse prn. --> Epogen or iron at this time is not particularly indicated --> Medications have been reviewed ==> continue on hydroxyurea --> hgb trend 8-->7.3 # Leukocytosis. Likely related to underlying infection versus reactive process --> have reviewed peripheral smear and bandemia/neutrophilia noted --> continue antibiotics if they have been started by ID team --> monitor for resolution --> trend wbc 21-->17 # DVT of the bilateral lower ext --> hold off on anticoagulation at this time # History of seizure disorder, continue gabapentin as above. # Pulmonary hypertension. 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 Greatly appreciate consultation! Marco Dutton MD Oct 25, 2019 10:36
[2019-10-25] MEDS ORDERED: D5 1/2NS w/KCL 10meq 1,000 ML IV SCH (11:00)
--- NOTE | 2019-10-25 11:12 | NUR ---
CASE MANAGEMENT: INITIAL REVIEW 43 YO M PRESENTED TO ED FROM HOME CC: DYSPNEA PMHx: Sickle Cell Disease, Asthma/COPD, Hypertension, Seizure History, GERD SI: COVID R/O. RESP DISTRESS. SICKLE CELL CRISIS. VS: T 98.8 HR 97 RR 25 B/P 152/83 SATS 70% ON 2L/NC LABS: WBC 19.2 HGB 7.3 HCT 23 K 5.2 AST 64 ALT 89 ALP 210 TOTAL CK 24 BNP 355 IS: NS BOLUS X1 CEFTRIAXONE IV X1 DILAUDID IV X1 Chest X-Ray: no effusion, no acute cardiopulmonary disease, other - diffuse infiltrates bilaterally, appear to be chronic changes EKG: Rate: normal Rhythm: NSR ST Segments: no acute changes PATIENT ADMITTED TO SDU 10/24/2019 @ 1613 DCP: PATIENT TO BE DISCHARGED TO HOME ONCE MEDICALLY CLEARED AND STABLE PLAN OF CARE: ISO/DROPLET PRECAUTIONS Await cultures/viral studies, if Covid19 positive add Hydroxychloroquine IV Antibiotics - Ceftriaxone/Azithromycin Addendum: 10/25/19 at 1126 by Rosaura Sandoval CM INTERQUAL MET
[2019-10-25 12:00] VITALS: BP 119/80
--- NOTE | 2019-10-25 12:17 | Consultation ---
Consult Note Consult Note I was asked to evaluate the patient at the request of Dr. Recinos for fluid and electrolyte management Chief Complaint: Dyspnea/Respdistress 43-year-old male with history of sickle cell anemia currently under the care of a computer project manager here complaining of 1 week of generalized body ache, cough and congestion. Patient appears to be having low O2 sat as well as elevated respiratory rate. Patient is afebrile upon arrival. Patient is taking hydromorphone at home. Keeps requesting hydromorphone and Benadryl. Appears to be in no distress at this time. After being in room ER for 30 minutes O2 sat went up to 100%. Diffuse bilateral infiltrates noted on chest x-ray. Denies chest pain, headache and dizziness. Shortness of breath. Has not taken medication for symptom relief. Denies any recent travel. Denies abdominal pain , nausea vomiting diarrhea. Patient reported that he was recently 6L oxygen at home Coded Allergies: PENTAMIDINE ISETHIONATE (Verified Allergy, Severe, palpitations, 08/27/17) AMPICILLIN (Verified Allergy, Unknown, hives, 01/05/18) Tolerated CEftriaxone 01/02/18 KETOROLAC (Verified Allergy, Unknown, 08/03/16) MORPHINE (Verified Allergy, Unknown, 08/03/16) PHENYTOIN (Verified Allergy, Unknown, 08/03/16) COVID-19 Screening Contact w/high risk pt: No Recent Travel to affected area: No Experienced COVID-19 symptoms?: Yes COVID-19 symptoms experienced: Shortness of Breath, Cough Hx Hypertension: Yes Hx Asthma: Yes Hx COPD: Yes Hx Gastrointestinal Problems: Yes Hx Neurological Problems: Yes Hx Seizures: Yes Assessment/Plan Dehydration HyperKalemia Suspected COVID-19 virus infection Respiratory distress Sickle cell anemia Elevated liver enzymes Hydrate Monitor renal parameters and electrolytes Per orders Per consultants Iglesia Hutchins MD Oct 25, 2019 12:17
[2019-10-25] MEDS ORDERED: D5 1/2NS 1,000 ML IV SCH (12:20)
[2019-10-25] MEDS: Docusate 100mg cap ORAL SCH ×2 (13:12→18:37)
--- NOTE | 2019-10-25 13:20 | NUR ---
Pt. refused MDI. Did not want to be bothered. Pt. alert and responsive with no SOB noted.
--- NOTE | 2019-10-25 15:00 | NUR ---
NURSE NOTES: Pt request to speak with pain medic ,Dr Perera,called and left a note ,awaiting return of call.
[2019-10-25] MEDS ORDERED: cefTRIAXone 1 GM in D5W 55 ML IVPB SCH (16:00)
--- NOTE | 2019-10-25 17:00 | NUR ---
NURSE NOTES: Pt upset that no Dr has come and speak to him,Dr Finnegan came to see pt but pt was asleep but when Dr Finnegan left ,he wanted him to come back to speak to him,but Dr Finnegan was gone.
--- NOTE | 2019-10-25 19:09 | Pulmonology Progress Note ---
Assessment/Plan Assessment/Plan Pulmonary Progress Note HPI 43-year-old male with history of sickle cell anemia admitted complaining of 1 week of generalized body ache, cough and congestion. Noted to have low O2 saturations and tachypnea in the ED, afebrile upon arrival, improved with O2 supplementation. 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 Appears to be in no distress at this time. Chronic bilateral infiltrates noted on chest x-ray. Denies chest pain, headache and dizziness. Has shortness of breath. Denies abdominal pain, nausea vomiting diarrhea. Patient is on home oxygen, up to 6L/min at home, less SOB Allergies: PENTAMIDINE ISETHIONATE (Verified Allergy, Severe, palpitations, 08/27/17) AMPICILLIN (Verified Allergy, Unknown, hives, 01/05/18) Tolerated CEftriaxone 01/02/18 KETOROLAC (Verified Allergy, Unknown, 08/03/16) MORPHINE (Verified Allergy, Unknown, 08/03/16) PHENYTOIN (Verified Allergy, Unknown, 08/03/16) Past Medical History: Sickle Cell Disease, Asthma/COPD, Hypertension, Seizure History, GERD All Other Systems: negative except mentioned in HPI Physical Exam Vital Signs Noted General Appearance: no apparent distress, alert, GCS 15, non-toxic Head: normocephalic, atraumatic Eyes: bilateral eye normal inspection, bilateral eye PERRL ENT: hearing grossly normal, normal pharynx, no angioedema, normal voice Respiratory: chest non-tender, no retraction, no accessory muscle use, no wheezing, crackles - Diffuse bilateral, speaking full sentences Cardiovascular: regular rate, rhythm, HS1, HS2, RRR, no edema, no murmur Gastrointestinal: non tender, soft, no mass Genitourinary: no CVA tenderness Musculoskeletal: back normal Neurologic: alert, motor strength/tone normal, oriented x3, sensory intact, responsive, speech normal Skin: no rash Impression: Sickle cell disease Chest syndrome Pneumonia versus suspected COVID-19 virus infection Possible SCD exacerbation Respiratory distress Asthma/COPD Hypertension Seizure History GERD Plan O2 PRN IVF IV Antibiotics - Ceftriaxone/Azithromycin Bronchodilators PPX Monitor labs Pain medications Await cultures/viral studies, if Covid19 positive add Hydroxychloroquine 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 EKG: Rate: normal Rhythm: NSR ST Segments: no acute changes Other Impression No acute ST changes Chest X-Ray: no effusion, no acute cardiopulmonary disease, other - diffuse infiltrates bilaterally, appear to be chronic changes Subjective ROS Limited/Unobtainable: No Allergies: Coded Allergies: PENTAMIDINE ISETHIONATE (Verified Allergy, Severe, palpitations, 08/27/17) AMPICILLIN (Verified Allergy, Unknown, hives, 01/05/18) Tolerated CEftriaxone 01/02/18 KETOROLAC (Verified Allergy, Unknown, 08/03/16) MORPHINE (Verified Allergy, Unknown, 08/03/16) PHENYTOIN (Verified Allergy, Unknown, 08/03/16) Objective Last 24 Hour Vital Signs Date Time Temp Pulse Resp B/P (MAP) Pulse Ox O2 Delivery O2 Flow Rate FiO2 10/25/19 16:00 Nasal Cannula 6.0 Nasal Cannula 6.0 10/25/19 16:00 82 10/25/19 13:44 Nasal Cannula 4.0 36 10/25/19 13:44 Nasal Cannula 4.0 36 10/25/19 12:00 69 10/25/19 12:00 Nasal Cannula 6.0 Nasal Cannula 6.0 10/25/19 12:00 97.7 83 20 119/80 (93) 100 10/25/19 08:02 74 20 98 Nasal Cannula 4.0 36 10/25/19 08:02 76 20 97 Nasal Cannula 4.0 36 10/25/19 08:00 Nasal Cannula 6.0 Nasal Cannula 6.0 10/25/19 08:00 77 10/25/19 04:00 98.0 93 20 120/85 (97) 95 10/25/19 04:00 6.0 10/25/19 04:00 Nasal Cannula 6.0 Nasal Cannula 6.0 10/25/19 03:32 88 10/25/19 02:46 Nasal Cannula 6.0 10/25/19 02:23 81 10/25/19 02:00 98.4 95 20 122/86 (98) 97 10/25/19 01:55 98.7 95 24 122/73 97 Nasal Cannula 6.0 10/25/19 00:59 98.7 96 24 121/77 98 Nasal Cannula 6.0 10/24/19 22:56 98.7 98 26 117/77 97 Nasal Cannula 6.0 10/24/19 21:01 98.7 10/24/19 19:30 98.7 91 22 121/8 98 Nasal Cannula 6.0 Intake and Output 10/24/19 10/25/19 19:00 07:00 Intake Total 320 ml Output Total 700 ml Balance -380 ml Intake Oral 200 ml IV Total 120 ml Output Urine Total 700 ml # Voids 1 Microbiology Date/Time Source Procedure Growth Status 10/24/19 15:30 Nasal Nares - Final Complete 10/24/19 15:30 Nasal Nares - Final Complete Current Medications Medications (Trade) Dose Ordered Sig/Anthony Route PRN Reason Start Time Stop Time Status Last Admin Dose Admin Acetaminophen (Tylenol) 650 mg Q6H PRN ORAL Mild Pain/Fever 10/25/19 02:30 11/24/19 02:29 Albuterol Sulfate (Proventil MDI) 1 puff TIDRT INH 10/25/19 07:00 10/30/19 06:59 10/25/19 08:01 Azithromycin 500 mg/Dextrose 275 ml @ 275 mls/hr Q24H IV 10/25/19 05:00 10/31/19 05:59 Ceftriaxone Sodium 1 gm/ Dextrose 55 ml @ 110 mls/hr Q24H IVPB 10/25/19 16:00 11/01/19 15:59 Dextrose/Sodium Chloride 1,000 ml @ 75 mls/hr [id number] IV 10/25/19 12:20 11/24/19 12:19 10/25/19 12:20 Diphenhydramine HCl (Benadryl) 25 mg Q4H PRN ORAL Itching 10/25/19 02:45 11/24/19 02:44 10/25/19 04:25 Docusate Sodium (Colace) 100 mg THREE TIMES A DAY ORAL 10/25/19 13:00 11/24/19 12:59 10/25/19 18:37 Folic Acid (Folate) 1 mg DAILY ORAL 10/25/19 09:00 11/24/19 08:59 10/25/19 09:50 Heparin Sodium (Porcine) (Heparin 5000 units/ml) 5,000 units EVERY 12 HOURS SUBQ 10/25/19 09:00 12/09/19 08:59 10/25/19 09:56 Hydromorphone HCl (Dilaudid) 1 mg Q3H PRN IVP For Pain 10/25/19 02:30 11/01/19 02:29 10/25/19 04:25 Hydromorphone HCl (Dilaudid) 14 mg Q4H ORAL 10/25/19 06:00 11/01/19 05:59 10/25/19 19:00 Hydroxyurea (Hydrea) 500 mg TWICE A DAY ORAL 10/25/19 09:00 10/30/19 08:59 10/25/19 18:37 Lacosamide (Vimpat) 100 mg Q12HR ORAL 10/25/19 09:00 01/23/20 08:59 10/25/19 09:50 Methadone HCl (Methadone HCl) 60 mg Q6HR ORAL 10/25/19 07:04 11/01/19 07:03 10/25/19 18:38 Ondansetron HCl (Zofran) 4 mg Q6H PRN IVP Nausea & Vomiting 10/25/19 02:30 11/24/19 02:29 Pantoprazole (Protonix) 40 mg EVERY 12 HOURS ORAL 10/25/19 12:30 11/24/19 12:29 10/25/19 13:12 Artie Finnegan MD Oct 25, 2019 19:09
--- NOTE | 2019-10-25 19:15 | NUR ---
HAND-OFF: Report given to GRISELDA GALVEZ. Pt remains stable at this time.
--- NOTE | 2019-10-25 19:18 | NUR ---
HAND-OFF: Report given to Shaina Acosta RN..
--- NOTE | 2019-10-25 19:20 | NUR ---
Got report from Shaina VILLALOBOS. Pt in stable condition. No s/s of distress or discomfort noted. Pt resting in bed comfortably. Bed in low and locked position, call light within reach, bedside table within reach. Continue to monitor.
[2019-10-25 20:00] VITALS: BP 111/72
[2019-10-25] MEDS: D5 1/2NS 1,000 ML IV SCH (20:45)
[2019-10-25] MEDS: Heparin 5000 units/ml inj SUBQ SCH (21:00)
[2019-10-25] MEDS: Lacosamide 50mg tablet ORAL SCH (21:00)
[2019-10-25] MEDS ORDERED: DiphenhydrAMINE 25mg Tab ORAL PRN (22:45)
[2019-10-26] VITALS: BP 112/70
[2019-10-26] MEDS: HYDROmorphone 1mg/ml Carpuject IVP PRN ×5 (00:15→21:05)
[2019-10-26] MEDS: HYDROmorphone 4mg tab ORAL SCH ×6 (02:00→21:04)
[2019-10-26 04:00] VITALS: BP 106/72
--- NOTE | 2019-10-26 04:00 | History and Physical Report ---
DATE OF ADMISSION: 10/24/2019 HISTORY OF PRESENT ILLNESS: The patient admitted for sickle cell crisis, shortness of breath, rule out COVID comes in with crisis and generalized pain. No fever. He presents with shortness of breath, cough for one week, also, has leukocytosis. Chest x-ray showed edema, rule out pneumonia and has had an x-ray, two views. The patient basically with complaining of cough and congestion. The patient was afebrile. Denies chills. The patient takes hydromorphone. The patient has diffuse bilateral infiltrates on the x-ray. Denies orthopnea. Denies chest pain. Denies leg edema. PAST MEDICAL HISTORY: Significant for history of possible COPD/asthma, GERD, history of seizures. ALLERGIES: Pentamidine, ampicillin, ketorolac, morphine, and Dilantin. FAMILY HISTORY: Noncontributory. SOCIAL HISTORY: Denies history of smoking. Denies history of drug abuse. Denies alcohol abuse. REVIEW OF SYSTEMS: HEENT: Denies headaches. PULMONARY: Reports shortness of breath and cough for about a week. CARDIOVASCULAR: Denies chest pain. Denies orthopnea. EXTREMITIES: Reports pain all over. CENTRAL NERVOUS SYSTEM: Change in speech pattern. Feels weak. PHYSICAL EXAMINATION: VITAL SIGNS: Temperature 97.7, pulse is 83, blood pressure is 119/80. HEENT: PERRLA. NECK: Supple. CHEST: Bibasilar rhonchi. CARDIOVASCULAR: Regular rate and rhythm. No murmurs or extra sounds. GASTROINTESTINAL: Soft bowel sounds. No organomegaly. EXTREMITIES: No edema. Reflexes in both sides. Able to move extremities. X-ray shows diffuse infiltrates. LABORATORY DATA: WBC of 19.2, hemoglobin of 7.3, platelets 230, sodium 142, potassium 5.2, BUN of 30, creatinine 1.1, glucose of 104, AST of 64, ALT of 89, and troponin 0.012. ASSESSMENT AND PLAN: History of COPD, rule out COVID, exam already sent. The patient has bilateral most likely pneumonia, sickle cell crisis, generalized pain and severe anemia. I have asked Dr. Hutchins, Dr. Marco Dutton, Dr. Alex Nash, Dr. Oleg Perera to help with the above-mentioned abnormalities and symptoms. The patient is sick. At this point is very ill and is admitted to [facility] for very close monitoring. Griffin Recinos M.D. DR: Sharee JOB#: [id number] CC:
[2019-10-26] MEDS ORDERED: Azithromycin 500 MG in D5W 275 ML IV SCH (05:00)
[2019-10-26] MEDS: Albuterol 90mcg Inhaler 8gm INH SCH ×3 (07:00→19:00)
--- NOTE | 2019-10-26 07:45 | NUR ---
NURSE NOTES: Nurse report given by GRISELDA Dumont. Patient's awake and sitting at bedside. Patient refused to have blood drawn, nurse explain to patient the need of get blood test per Mds orders, patient still refused. Ao x 4, denies chest pain, no s/s of distress or SOB, complains of generalize pain, 12/24, inform patient will get pain medication along with his morning medication. Bed low and locked, call light within reach, side rails x 3. Present with emil cath on right upper chest. Will continue to monitor.
--- NOTE | 2019-10-26 07:59 | NUR ---
HAND-OFF: Report given to Isis VILLALOBOS.
[2019-10-26] MEDS ORDERED: Hydroxyurea 500mg cap ORAL SCH (09:00)
[2019-10-26] MEDS: Docusate 100mg cap ORAL SCH ×3 (09:00→18:49)
[2019-10-26] MEDS: Heparin 5000 units/ml inj SUBQ SCH ×3 (09:00→21:00)
[2019-10-26] MEDS: Lacosamide 50mg tablet ORAL SCH ×2 (09:03→20:56)
[2019-10-26] MEDS: D5 1/2NS 1,000 ML IV SCH ×2 (10:05→18:57)
--- NOTE | 2019-10-26 10:47 | NUR ---
NURSE NOTES: Left message to Dr. Recinos regarding patient is NEGATIVE for COVID 19. Also left message to inform MD that patient wants to change his pain management medications all through IV access; and patient would like to speak to the MD himself. Left message multiple times to MD and also gave patient MD's office phone numbers. Awaiting for call back. Will continue to monitor.
--- NOTE | 2019-10-26 11:10 | NUR ---
NURSE NOTES: Dr. Recinos called back and informed MD cannot prescribed IV pain medications. Informed to call either Dr. Dutton or Dr. Mckeon regarding pain management. Called Dr. Dutton's office and spoke to Michelle to leave message to DR. Tony. Awaiting for call back.
--- NOTE | 2019-10-26 11:52 | Infectious Diseases Prog Note ---
Assessment/Plan Assessment/Plan antibiotics : ceftriaxone, azithromycin A 1. pneumonia COVID 19 negative 4.9.20 2. sickle cell crisis 3. COPD 4. asthma P 1. continue ceftriaxone, azithromycin 2. will follow up cultures Subjective Constitutional: Denies: fever, chills Respiratory: Denies: shortness of breath, dry cough Gastrointestinal/Abdominal: Denies: nausea, vomiting, diarrhea Musculoskeletal: Denies: pain Allergies: Coded Allergies: PENTAMIDINE ISETHIONATE (Verified Allergy, Severe, palpitations, 08/27/17) AMPICILLIN (Verified Allergy, Unknown, hives, 01/05/18) Tolerated CEftriaxone 01/02/18 KETOROLAC (Verified Allergy, Unknown, 08/03/16) MORPHINE (Verified Allergy, Unknown, 08/03/16) PHENYTOIN (Verified Allergy, Unknown, 08/03/16) Objective Vital Signs Last 24 Hour Vital Signs Date Time Temp Pulse Resp B/P (MAP) Pulse Ox O2 Delivery O2 Flow Rate FiO2 10/26/19 11:08 97.7 10/26/19 09:34 97.7 10/26/19 09:00 Nasal Cannula 6.0 Nasal Cannula 6.0 10/26/19 08:00 70 10/26/19 07:36 Nasal Cannula 4.0 36 10/26/19 07:36 Nasal Cannula 4.0 36 10/26/19 04:35 Nasal Cannula 6.0 Nasal Cannula 6.0 10/26/19 04:00 70 10/26/19 04:00 98.2 78 20 106/72 (83) 100 10/26/19 00:00 75 10/26/19 00:00 97.0 77 20 112/70 (84) 97 10/26/19 00:00 Nasal Cannula 6.0 Nasal Cannula 6.0 10/25/19 20:24 81 10/25/19 20:00 Nasal Cannula 6.0 Nasal Cannula 6.0 10/25/19 20:00 98.3 83 20 111/72 (85) 98 10/25/19 20:00 97.7 10/25/19 19:31 Nasal Cannula 4.0 36 10/25/19 19:31 Nasal Cannula 4.0 36 10/25/19 16:00 Nasal Cannula 6.0 Nasal Cannula 6.0 10/25/19 16:00 82 10/25/19 13:44 Nasal Cannula 4.0 36 10/25/19 13:44 Nasal Cannula 4.0 36 10/25/19 12:00 69 10/25/19 12:00 Nasal Cannula 6.0 Nasal Cannula 6.0 10/25/19 12:00 97.7 83 20 119/80 (93) 100 Height (Feet): 5 Height (Inches): 11.00 Weight (Pounds): 172 Respiratory/Chest: lungs clear Cardiovascular: normal rate, regular rhythm, no gallop/murmur Abdomen: soft, non tender Extremities: no edema Microbiology Date/Time Source Procedure Growth Status 10/24/19 15:45 Blood Blood Culture - Preliminary NO GROWTH AFTER 24 HOURS Resulted 10/24/19 15:30 Blood Blood Culture - Preliminary NO GROWTH AFTER 24 HOURS Resulted 10/24/19 15:30 Nasopharynx Coronavirus COVID-19 PCR (LEANDRO) - Final Complete 10/24/19 15:30 Nasal Nares - Final Complete 10/24/19 15:30 Nasal Nares - Final Complete Current Medications Medications (Trade) Dose Ordered Sig/Anthony Route PRN Reason Start Time Stop Time Status Last Admin Dose Admin Acetaminophen (Tylenol) 650 mg Q6H PRN ORAL Mild Pain/Fever 10/26/19 02:30 11/24/19 02:29 Albuterol Sulfate (Proventil MDI) 1 puff TIDRT INH 10/26/19 07:00 10/30/19 06:59 Azithromycin 500 mg/Dextrose 275 ml @ 275 mls/hr Q24H IV 10/26/19 05:00 11/01/19 05:59 Ceftriaxone Sodium 1 gm/ Dextrose 55 ml @ 110 mls/hr Q24H IVPB 10/26/19 16:00 11/01/19 15:59 Dextrose/Sodium Chloride 1,000 ml @ 75 mls/hr [id number] IV 10/25/19 20:45 11/24/19 12:19 Diphenhydramine HCl (Benadryl) 25 mg Q4H PRN ORAL Itching 10/25/19 22:45 11/24/19 02:44 Docusate Sodium (Colace) 100 mg THREE TIMES A DAY ORAL 10/26/19 09:00 11/24/19 12:59 Folic Acid (Folate) 1 mg DAILY ORAL 10/26/19 09:00 11/24/19 08:59 10/26/19 09:04 Heparin Sodium (Porcine) (Heparin 5000 units/ml) 5,000 units EVERY 12 HOURS SUBQ 10/25/19 21:00 12/09/19 08:59 Hydromorphone HCl (Dilaudid) 1 mg Q3H PRN IVP For Pain 10/25/19 23:30 11/01/19 02:29 10/26/19 09:04 Hydromorphone HCl (Dilaudid) 14 mg Q4H ORAL 10/25/19 22:00 11/01/19 05:59 10/26/19 10:33 Hydroxyurea (Hydrea) 500 mg TWICE A DAY ORAL 10/26/19 09:00 10/30/19 08:59 10/26/19 09:03 Lacosamide (Vimpat) 100 mg Q12HR ORAL 10/25/19 21:00 01/23/20 08:59 10/26/19 09:03 Methadone HCl (Methadone HCl) 60 mg Q6HR ORAL 10/26/19 00:00 11/01/19 07:03 10/26/19 00:15 Ondansetron HCl (Zofran) 4 mg Q6H PRN IVP Nausea & Vomiting 10/26/19 02:30 11/24/19 02:29 Pantoprazole (Protonix) 40 mg EVERY 12 HOURS ORAL 10/25/19 21:00 11/24/19 12:29 10/26/19 09:03 Torin Perez MD Oct 26, 2019 11:52
[2019-10-26 12:00] VITALS: BP 126/63
--- NOTE | 2019-10-26 12:41 | Nephrology Progress Note ---
Assessment/Plan Problem List: (1) Dehydration (2) Electrolyte imbalance Assessment: Hyperkalemia (3) Sickle cell disease (4) Anemia (5) Elevated liver enzymes Assessment Dehydration HyperKalemia Suspected COVID-19 virus infection Respiratory distress Sickle cell anemia Elevated liver enzymes Plan Today's labs pending hydrate Monitor renal parameters and electrolytes Per orders Per consultants Subjective ROS Limited/Unobtainable: No Constitutional: Reports: malaise Objective Objective Last 24 Hour Vital Signs Date Time Temp Pulse Resp B/P (MAP) Pulse Ox O2 Delivery O2 Flow Rate FiO2 10/26/19 12:00 97.1 73 18 126/63 (84) 100 10/26/19 11:08 97.7 10/26/19 09:34 97.7 10/26/19 09:00 Nasal Cannula 6.0 Nasal Cannula 6.0 10/26/19 08:00 70 10/26/19 07:36 Nasal Cannula 4.0 36 10/26/19 07:36 Nasal Cannula 4.0 36 10/26/19 04:35 Nasal Cannula 6.0 Nasal Cannula 6.0 10/26/19 04:00 70 10/26/19 04:00 98.2 78 20 106/72 (83) 100 10/26/19 00:00 75 10/26/19 00:00 97.0 77 20 112/70 (84) 97 10/26/19 00:00 Nasal Cannula 6.0 Nasal Cannula 6.0 10/25/19 20:24 81 10/25/19 20:00 Nasal Cannula 6.0 Nasal Cannula 6.0 10/25/19 20:00 98.3 83 20 111/72 (85) 98 10/25/19 20:00 97.7 10/25/19 19:31 Nasal Cannula 4.0 36 10/25/19 19:31 Nasal Cannula 4.0 36 10/25/19 16:00 Nasal Cannula 6.0 Nasal Cannula 6.0 10/25/19 16:00 82 10/25/19 13:44 Nasal Cannula 4.0 36 10/25/19 13:44 Nasal Cannula 4.0 36 Intake and Output 10/25/19 10/26/19 19:00 07:00 Intake Total 1380 ml Output Total 2500 ml Balance -1120 ml Intake Oral 1080 ml IV Total 300 ml Output Urine Total 2500 ml # Voids 3 Height (Feet): 5 Height (Inches): 11.00 Weight (Pounds): 172 General Appearance: no apparent distress Objective No change Iglesia Hutchins MD Oct 26, 2019 12:41
[2019-10-26 16:00] VITALS: BP 128/90
[2019-10-26] MEDS ORDERED: cefTRIAXone 1 GM in D5W 55 ML IVPB SCH (16:00)
--- NOTE | 2019-10-26 17:55 | NUR ---
NURSE NOTES: Patient called Dr. Dutton and requested nurse to speak to MD. informed that he is not working over the weekends and he ordered to call KATHLEEN Anderson regarding patient's pain management. Endorsed to receiving nurse GRISELDA Rapp. Receiving nurse aware.
--- NOTE | 2019-10-26 18:00 | NUR ---
HAND-OFF: Report given to GRISELDA Rapp. Patient's transferred to [facility] per Dr. Recinos's order. Patient's in stable condition, no s/s of distress or SOB. Patient't belonging list went over with patient and receiving nurse at bedside. 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 Patient's AO x4. IV still intact. Patient has his own oxygen tank that patient request to put at his bedside. Transferred orders in. .
--- NOTE | 2019-10-26 18:01 | NUR ---
NURSE NOTES: Received patient from [facility]ILLALOB[facility]. Right chest portacatheter intact. O2 via nasal cannula connected and regulated to 6LPM. vital signs as follow: T 98.2F, HR 82, RR 18, BP 125/87, O2 sat 100%. A and O x4. Ambulatory. No skin issues noted. Belongings accounted for. HOB elevated. Bed locked in lowest position. Call light within reach. Will continue plan of care.
[2019-10-26] MEDS: Hydroxyurea 500mg cap ORAL SCH (18:50)
[2019-10-26] MEDS: DiphenhydrAMINE 25mg Tab ORAL PRN (19:02)
--- NOTE | 2019-10-26 19:30 | NUR ---
NURSE NOTES: RECEIVED PATIENT FROM GRISELDA AGUERO. PATIENT IS AWAKE, AAOX4, ON NC 6L, NO RESPIRATORY DISTRESS NOTED. PATIENT C/O 9/10 GENERALIZED PAIN. WILL FOLLOW UP WITH PRN DILAUDID. PORT-A-CATH NOTE ON RIGHT UPPER CHEST, INTACT AND PATENT, DRESSING CLEAN AND DRY. BED IS LOCKED AND LOW, BED ALARMS ACTIVE, SIDE RAILS UP X2 AND CALL LIGHT IS WITHIN REACH. WILL CONTINUE TO MONITOR.
--- NOTE | 2019-10-26 19:54 | NUR ---
HAND-OFF: Report given to ronald.
[2019-10-26 20:00] VITALS: BP 140/81
[2019-10-26] MEDS ORDERED: Tubing IV Secondary IV ONE (21:06)
[2019-10-26] MEDS ORDERED: D5W 275ml ONE (21:06)
--- NOTE | 2019-10-26 23:11 | General Progress Note ---
Assessment/Plan Problem List: (1) Chronic pain ICD Codes: G89.29 - Other chronic pain SNOMED: 33351452 (2) Sickle cell anemia ICD Codes: D57.1 - Sickle-cell disease without crisis SNOMED: 982676577 (3) Suspected COVID-19 virus infection ICD Codes: R68.89 - Other general symptoms and signs SNOMED: 087746129 (4) Dehydration ICD Codes: E86.0 - Dehydration SNOMED: 31334472 (5) Electrolyte imbalance ICD Codes: E87.8 - Other disorders of electrolyte and fluid balance, not elsewhere classified SNOMED: 218813536 (6) Sickle cell disease ICD Codes: D57.1 - Sickle-cell disease without crisis SNOMED: 996614509 (7) Seizure disorder ICD Codes: G40.909 - Epilepsy, unspecified, not intractable, without status epilepticus SNOMED: 936546987 (8) Pulmonary HTN ICD Codes: I27.2 - Other secondary pulmonary hypertension SNOMED: 50282620 Status: progressing Assessment/Plan: afebrile chronic pain sickcle cell crisis is improving r/o covid resp insuff Subjective ROS Limited/Unobtainable: Yes Allergies: Coded Allergies: PENTAMIDINE ISETHIONATE (Verified Allergy, Severe, palpitations, 08/27/17) AMPICILLIN (Verified Allergy, Unknown, hives, 01/05/18) Tolerated CEftriaxone 01/02/18 KETOROLAC (Verified Allergy, Unknown, 08/03/16) MORPHINE (Verified Allergy, Unknown, 08/03/16) PHENYTOIN (Verified Allergy, Unknown, 08/03/16) Objective Last 24 Hour Vital Signs Date Time Temp Pulse Resp B/P (MAP) Pulse Ox O2 Delivery O2 Flow Rate FiO2 10/26/19 21:00 Nasal Cannula 6.0 Nasal Cannula 6.0 10/26/19 20:00 97.7 79 18 140/81 (100) 100 10/26/19 16:00 97.7 82 18 128/90 (103) 100 10/26/19 14:46 97.7 10/26/19 13:39 Nasal Cannula 4.0 36 10/26/19 13:39 Nasal Cannula 4.0 36 10/26/19 12:41 97.7 10/26/19 12:00 73 10/26/19 12:00 97.1 73 18 126/63 (84) 100 10/26/19 09:00 Nasal Cannula 6.0 Nasal Cannula 6.0 10/26/19 08:00 70 10/26/19 07:36 Nasal Cannula 4.0 36 10/26/19 07:36 Nasal Cannula 4.0 36 10/26/19 04:35 Nasal Cannula 6.0 Nasal Cannula 6.0 10/26/19 04:00 70 10/26/19 04:00 98.2 78 20 106/72 (83) 100 10/26/19 00:00 75 10/26/19 00:00 97.0 77 20 112/70 (84) 97 10/26/19 00:00 Nasal Cannula 6.0 Nasal Cannula 6.0 Intake and Output 10/25/19 10/26/19 19:00 07:00 Intake Total 1380 ml Output Total 2500 ml Balance -1120 ml Intake Oral 1080 ml IV Total 300 ml Output Urine Total 2500 ml # Voids 3 Height (Feet): 5 Height (Inches): 11.00 Weight (Pounds): 172 Griffin Recinos MD Oct 26, 2019 23:11
[2019-10-27] VITALS: BP 105/68
[2019-10-27] MEDS: HYDROmorphone 4mg tab ORAL SCH ×6 (00:22→21:02)
[2019-10-27] MEDS: HYDROmorphone 1mg/ml Carpuject IVP PRN ×3 (02:16→19:55)
[2019-10-27] MEDS: Azithromycin 500 MG in D5W 275 ML IV SCH (05:43)
[2019-10-27] MEDS: D5 1/2NS 1,000 ML IV SCH ×2 (05:44→19:55)
[2019-10-27] MEDS: Albuterol 90mcg Inhaler 8gm INH SCH ×3 (07:00→20:14)
[2019-10-27 07:53] LABS: HEMATOCRIT 20.3 % (42.0-52.0); MEAN CORPUSCULAR VOLUME 87 FL (80-99); PLATELET COUNT 310 K/UL (150-450); RED BLOOD COUNT 2.34 M/UL (4.70-6.10); RED CELL DISTRIBUTION WIDTH 17.2 % (11.6-14.8); WHITE BLOOD COUNT 12.1 K/UL (4.8-10.8)
[2019-10-27 08:00] VITALS: BP 119/60
[2019-10-27 08:01] LABS: ANION GAP 4 mmol/L (5-15); BLOOD UREA NITROGEN 31 mg/dL (7-18); CALCIUM 9.4 MG/DL (8.5-10.1); CARBON DIOXIDE 32 MMOL/L (21-32); CHLORIDE 106 MMOL/L (98-107); CREATININE 0.9 MG/DL (0.55-1.30); POTASSIUM 4.8 MMOL/L (3.5-5.1); SODIUM 142 MMOL/L (136-145)
--- NOTE | 2019-10-27 08:09 | NUR ---
HAND-OFF: Report given to GRISELDA Krishna. Patient is in stable condition.
--- NOTE | 2019-10-27 08:12 | NUR ---
NURSE NOTES: Handoff received from Kaitlynn Rn. Patient is awake and alert, no acute distress noted. Breathing is even and unlabored on 6L nasal cannula, right chest portacath is patent and asymptomatic, dressing is dry and intact. Patient requested benadryl for itchiness, will medicate as ordered. bed is low and locked, side rails up x2, call light is within reach.
[2019-10-27] MEDS: Heparin 5000 units/ml inj SUBQ SCH ×2 (09:00→21:03)
[2019-10-27] MEDS: DiphenhydrAMINE 25mg Tab ORAL PRN ×2 (09:08→16:55)
[2019-10-27] MEDS: Docusate 100mg cap ORAL SCH ×3 (09:08→17:53)
[2019-10-27] MEDS: Lacosamide 50mg tablet ORAL SCH ×2 (09:08→21:02)
[2019-10-27] MEDS: Hydroxyurea 500mg cap ORAL SCH ×2 (09:09→17:53)
--- NOTE | 2019-10-27 10:53 | NUR ---
NURSE NOTES: Notified Pharmacist Troy about patient's dilaudid PRN, per pharmD it was changed to breakthrough pain and is OK to give.
[2019-10-27 12:00] VITALS: BP 133/80
--- NOTE | 2019-10-27 12:19 | Nephrology Progress Note ---
Assessment/Plan Problem List: (1) Dehydration (2) Electrolyte imbalance Assessment: Hyperkalemia (3) Sickle cell disease (4) Anemia (5) Elevated liver enzymes Assessment Dehydration HyperKalemia Suspected COVID-19 virus infection Respiratory distress Sickle cell anemia Elevated liver enzymes Plan Today's labs reviewed hydrate Monitor renal parameters and electrolytes Per orders Per consultants Subjective ROS Limited/Unobtainable: No Constitutional: Reports: malaise Objective Objective Last 24 Hour Vital Signs Date Time Temp Pulse Resp B/P (MAP) Pulse Ox O2 Delivery O2 Flow Rate FiO2 10/27/19 09:40 97.9 10/27/19 08:00 97.9 81 18 119/60 (79) 98 10/27/19 07:23 Nasal Cannula 4.0 36 10/27/19 07:23 Nasal Cannula 4.0 36 10/27/19 00:00 98.1 79 18 105/68 (80) 100 10/26/19 21:00 Nasal Cannula 6.0 Nasal Cannula 6.0 10/26/19 20:00 97.7 79 18 140/81 (100) 100 10/26/19 19:00 Nasal Cannula 10/26/19 19:00 Nasal Cannula 10/26/19 16:00 97.7 82 18 128/90 (103) 100 10/26/19 14:46 97.7 10/26/19 13:39 Nasal Cannula 4.0 36 10/26/19 13:39 Nasal Cannula 4.0 36 10/26/19 12:41 97.7 Intake and Output 10/26/19 10/27/19 19:00 07:00 Intake Total 60 ml 825 ml Output Total 500 ml 700 ml Balance -440 ml 125 ml Intake Oral 60 ml IV Total 825 ml Output Urine Total 500 ml 700 ml Current Medications Medications (Trade) Dose Ordered Sig/Anthony Route PRN Reason Start Time Stop Time Status Last Admin Dose Admin Acetaminophen (Tylenol) 650 mg Q6H PRN ORAL Mild Pain/Fever 10/26/19 18:00 11/24/19 17:59 Albuterol Sulfate (Proventil MDI) 1 puff TIDRT INH 10/26/19 19:00 10/30/19 06:59 Azithromycin 500 mg/Dextrose 275 ml @ 275 mls/hr Q24H IV 10/27/19 05:00 4/18/20 05:59 10/27/19 05:43 Ceftriaxone Sodium 1 gm/ Dextrose 55 ml @ 110 mls/hr Q24H IVPB 10/27/19 16:00 11/01/19 15:59 Dextrose/Sodium Chloride 1,000 ml @ 75 mls/hr [id number] IV 10/26/19 17:30 11/24/19 12:19 10/27/19 05:44 Diphenhydramine HCl (Benadryl) 25 mg Q4H PRN ORAL Itching 10/26/19 18:00 11/24/19 17:59 10/27/19 09:08 Docusate Sodium (Colace) 100 mg THREE TIMES A DAY ORAL 10/26/19 18:00 11/24/19 12:59 10/27/19 09:08 Folic Acid (Folate) 1 mg DAILY ORAL 10/27/19 09:00 11/24/19 08:59 10/27/19 09:08 Heparin Sodium (Porcine) (Heparin 5000 units/ml) 5,000 units EVERY 12 HOURS SUBQ 10/26/19 21:00 12/09/19 08:59 Hydromorphone HCl (Dilaudid) 1 mg Q3H PRN IVP BREAKTHROUGH PAIN 10/27/19 11:00 11/01/19 02:29 10/27/19 11:01 Hydromorphone HCl (Dilaudid) 14 mg Q4H ORAL 10/27/19 01:00 11/03/19 00:59 10/27/19 09:10 Hydroxyurea (Hydrea) 500 mg TWICE A DAY ORAL 10/26/19 18:00 10/30/19 08:59 10/27/19 09:09 Lacosamide (Vimpat) 100 mg Q12HR ORAL 10/26/19 21:00 01/23/20 08:59 10/27/19 09:08 Methadone HCl (Methadone HCl) 60 mg Q6HR ORAL 10/26/19 18:00 11/01/19 07:03 10/27/19 05:44 Ondansetron HCl (Zofran) 4 mg Q6H PRN IVP Nausea & Vomiting 10/26/19 18:00 11/24/19 17:59 Pantoprazole (Protonix) 40 mg EVERY 12 HOURS ORAL 10/26/19 21:00 11/24/19 12:29 10/27/19 09:08 Laboratory Tests 10/27/19 06:00: White Blood Count 12.1H, Red Blood Count 2.34L, Hemoglobin 7.0L, Hematocrit 20.3L, Mean Corpuscular Volume 87, Mean Corpuscular Hemoglobin 29.9, Mean Corpuscular Hemoglobin Concent 34.5, Red Cell Distribution Width 17.2H, Platelet Count 310, Mean Platelet Volume 7.0, Neutrophils (%) (Auto) , Lymphocytes (%) (Auto) , Monocytes (%) (Auto) , Eosinophils (%) (Auto) , Basophils (%) (Auto) , Differential Total Cells Counted 100, Neutrophils % ( Manual) 46, Lymphocytes % (Manual) 32, Monocytes % (Manual) 6, Eosinophils % ( Manual) 16H, Basophils % (Manual) 0, Band Neutrophils 0, Platelet Estimate Adequate, Platelet Morphology Normal, Hypochromasia 2+, Anisocytosis 2+, Sickle Cells 1+H, Target Cells Occasional, Sodium Level 142, Potassium Level 4.8, Chloride Level 106, Carbon Dioxide Level 32, Anion Gap 4L, Blood Urea Nitrogen 31H, Creatinine 0.9, Estimat Glomerular Filtration Rate > 60, Glucose Level 137H , Calcium Level 9.4 Height (Feet): 5 Height (Inches): 11.00 Weight (Pounds): 172 General Appearance: no apparent distress Objective No change Iglesia Hutchins MD Oct 27, 2019 12:19
[2019-10-27 12:33] LABS: ALANINE AMINOTRANSFERASE 113 U/L (12-78); ALBUMIN 3.5 G/DL (3.4-5.0); ALKALINE PHOSPHATASE 239 U/L (46-116); ASPARTATE AMINO TRANSFERASE 76 U/L (15-37); BILIRUBIN,DIRECT 0.2 MG/DL (0.0-0.3); BILIRUBIN,TOTAL 0.6 MG/DL (0.2-1.0); PHOSPHORUS 4.1 MG/DL (2.5-4.9)
--- NOTE | 2019-10-27 13:50 | Consultation ---
History of Present Illness General Date patient seen: Oct 27, 2019 Chief Complaint: Present Illness Allergies: Coded Allergies: PENTAMIDINE ISETHIONATE (Verified Allergy, Severe, palpitations, 08/27/17) AMPICILLIN (Verified Allergy, Unknown, hives, 01/05/18) Tolerated CEftriaxone 01/02/18 KETOROLAC (Verified Allergy, Unknown, 08/03/16) MORPHINE (Verified Allergy, Unknown, 08/03/16) PHENYTOIN (Verified Allergy, Unknown, 08/03/16) Medication History Scheduled Folic Acid* (Folic Acid*), 1 MG ORAL DAILY Hydromorphone HCl (Dilaudid), 14 MG ORAL EVERY 4 HOURS, (Reported) Hydroxyurea* (HYDREA 500mg*), 500 MG PO BID Lacosamide (Vimpat), 100 MG PO BID, (Reported) Methadone Hcl* (Methadone*), 60 MG PO Q6HR, (Reported) Scheduled PRN Diphenhydramine HCl (Benadryl), 50 MG PO Q4HR PRN for Itching, (Reported) Durable Medical Equipment Crutch (Crutch), EACH [facility], (Reported), (DME) Crutch (Crutch), [facility]ACH [facility], (Reported), (DME) Patient History Healthcare decision maker Resuscitation status Full Code Advanced Directive on File Physical Exam Last 24 Hour Vital Signs Date Time Temp Pulse Resp B/P (MAP) Pulse Ox O2 Delivery O2 Flow Rate FiO2 10/27/19 09:40 97.9 10/27/19 08:00 97.9 81 18 119/60 (79) 98 10/27/19 07:23 Nasal Cannula 4.0 36 10/27/19 07:23 Nasal Cannula 4.0 36 10/27/19 00:00 98.1 79 18 105/68 (80) 100 10/26/19 21:00 Nasal Cannula 6.0 Nasal Cannula 6.0 10/26/19 20:00 97.7 79 18 140/81 (100) 100 10/26/19 19:00 Nasal Cannula 10/26/19 19:00 Nasal Cannula 10/26/19 16:00 97.7 82 18 128/90 (103) 100 10/26/19 14:46 97.7 Intake and Output 10/26/19 10/27/19 19:00 07:00 Intake Total 60 ml 825 ml Output Total 500 ml 700 ml Balance -440 ml 125 ml Intake Oral 60 ml IV Total 825 ml Output Urine Total 500 ml 700 ml Laboratory Tests Test 10/27/19 06:00 White Blood Count 12.1 K/UL (4.8-10.8) H Red Blood Count 2.34 M/UL (4.70-6.10) L Hemoglobin 7.0 G/DL (14.2-18.0) L Hematocrit 20.3 % (42.0-52.0) L Mean Corpuscular Volume 87 FL (80-99) Mean Corpuscular Hemoglobin 29.9 PG (27.0-31.0) Mean Corpuscular Hemoglobin Concent 34.5 G/DL (32.0-36.0) Red Cell Distribution Width 17.2 % (11.6-14.8) H Platelet Count 310 K/UL (150-450) Mean Platelet Volume 7.0 FL (6.5-10.1) Neutrophils (%) (Auto) % (45.0-75.0) Lymphocytes (%) (Auto) % (20.0-45.0) Monocytes (%) (Auto) % (1.0-10.0) Eosinophils (%) (Auto) % (0.0-3.0) Basophils (%) (Auto) % (0.0-2.0) Differential Total Cells Counted 100 Neutrophils % (Manual) 46 % (45-75) Lymphocytes % (Manual) 32 % (20-45) Monocytes % (Manual) 6 % (1-10) Eosinophils % (Manual) 16 % (0-3) H Basophils % (Manual) 0 % (0-2) Band Neutrophils 0 % (0-8) Platelet Estimate Adequate Platelet Morphology Normal Hypochromasia 2+ Anisocytosis 2+ Sickle Cells 1+ H Target Cells Occasional Sodium Level 142 MMOL/L (136-145) Potassium Level 4.8 MMOL/L (3.5-5.1) Chloride Level 106 MMOL/L (98-107) Carbon Dioxide Level 32 MMOL/L (21-32) Anion Gap 4 mmol/L (5-15) L Blood Urea Nitrogen 31 mg/dL (7-18) H Creatinine 0.9 MG/DL (0.55-1.30) Estimat Glomerular Filtration Rate > 60 mL/min (>60) Glucose Level 137 MG/DL (74-106) H Calcium Level 9.4 MG/DL (8.5-10.1) Phosphorus Level 4.1 MG/DL (2.5-4.9) Magnesium Level 1.5 MG/DL (1.8-2.4) L Total Bilirubin 0.6 MG/DL (0.2-1.0) Direct Bilirubin 0.2 MG/DL (0.0-0.3) Aspartate Amino Transf (AST/SGOT) 76 U/L (15-37) H Alanine Aminotransferase (ALT/SGPT) 113 U/L (12-78) H Alkaline Phosphatase 239 U/L (46-116) H Total Protein 6.6 G/DL (6.4-8.2) Albumin 3.5 G/DL (3.4-5.0) Height (Feet): 5 Height (Inches): 11.00 Weight (Pounds): 172 Medications Current Medications Medications (Trade) Dose Ordered Sig/Anthony Route PRN Reason Start Time Stop Time Status Last Admin Dose Admin Acetaminophen (Tylenol) 650 mg Q6H PRN ORAL Mild Pain/Fever 10/26/19 18:00 11/24/19 17:59 Albuterol Sulfate (Proventil MDI) 1 puff TIDRT INH 10/26/19 19:00 10/30/19 06:59 Azithromycin 500 mg/Dextrose 275 ml @ 275 mls/hr Q24H IV 10/27/19 05:00 11/02/19 05:59 10/27/19 05:43 Ceftriaxone Sodium 1 gm/ Dextrose 55 ml @ 110 mls/hr Q24H IVPB 10/27/19 16:00 11/01/19 15:59 Dextrose/Sodium Chloride 1,000 ml @ 75 mls/hr [id number] IV 10/26/19 17:30 11/24/19 12:19 10/27/19 05:44 Diphenhydramine HCl (Benadryl) 25 mg Q4H PRN ORAL Itching 10/26/19 18:00 11/24/19 17:59 10/27/19 09:08 Docusate Sodium (Colace) 100 mg THREE TIMES A DAY ORAL 10/26/19 18:00 11/24/19 12:59 10/27/19 13:02 Folic Acid (Folate) 1 mg DAILY ORAL 10/27/19 09:00 11/24/19 08:59 10/27/19 09:08 Heparin Sodium (Porcine) (Heparin 5000 units/ml) 5,000 units EVERY 12 HOURS SUBQ 10/26/19 21:00 12/09/19 08:59 Hydromorphone HCl (Dilaudid) 1 mg Q3H PRN IVP BREAKTHROUGH PAIN 10/27/19 11:00 11/01/19 02:29 10/27/19 11:01 Hydromorphone HCl (Dilaudid) 14 mg Q4H ORAL 10/27/19 01:00 11/03/19 00:59 10/27/19 13:05 Hydroxyurea (Hydrea) 500 mg TWICE A DAY ORAL 10/26/19 18:00 10/30/19 08:59 10/27/19 09:09 Lacosamide (Vimpat) 100 mg Q12HR ORAL 10/26/19 21:00 01/23/20 08:59 10/27/19 09:08 Methadone HCl (Methadone HCl) 60 mg Q6HR ORAL 10/26/19 18:00 11/01/19 07:03 10/27/19 13:03 Ondansetron HCl (Zofran) 4 mg Q6H PRN IVP Nausea & Vomiting 10/26/19 18:00 11/24/19 17:59 Pantoprazole (Protonix) 40 mg EVERY 12 HOURS ORAL 10/26/19 21:00 11/24/19 12:29 10/27/19 09:08 Assessment/Plan Assessment/Plan: (1) Intractable pain (2) Sickle cell disease and Crisis (3) B/L Femur head AVN seen dictated Cj Anderson Oct 27, 2019 13:49
--- NOTE | 2019-10-27 14:33 | Infectious Diseases Prog Note ---
Assessment/Plan Assessment/Plan A 1. pneumonia COVID19 negative 10.24.19 2. sickle cell crisis 3. COPD 4. asthma P 1. continue ceftriaxone, azithromycin 2. will follow up cultures Subjective ROS Limited/Unobtainable: No Constitutional: Reports: no symptoms Respiratory: Reports: productive cough Cardiovascular: Reports: no symptoms Gastrointestinal/Abdominal: Reports: no symptoms Musculoskeletal: Reports: pain Allergies: Coded Allergies: PENTAMIDINE ISETHIONATE (Verified Allergy, Severe, palpitations, 08/27/17) AMPICILLIN (Verified Allergy, Unknown, hives, 01/05/18) Tolerated CEftriaxone 01/02/18 KETOROLAC (Verified Allergy, Unknown, 08/03/16) MORPHINE (Verified Allergy, Unknown, 08/03/16) PHENYTOIN (Verified Allergy, Unknown, 08/03/16) Objective Vital Signs Last 24 Hour Vital Signs Date Time Temp Pulse Resp B/P (MAP) Pulse Ox O2 Delivery O2 Flow Rate FiO2 10/27/19 09:40 97.9 10/27/19 08:00 97.9 81 18 119/60 (79) 98 10/27/19 07:23 Nasal Cannula 4.0 36 10/27/19 07:23 Nasal Cannula 4.0 36 10/27/19 00:00 98.1 79 18 105/68 (80) 100 10/26/19 21:00 Nasal Cannula 6.0 Nasal Cannula 6.0 10/26/19 20:00 97.7 79 18 140/81 (100) 100 10/26/19 19:00 Nasal Cannula 10/26/19 19:00 Nasal Cannula 10/26/19 16:00 97.7 82 18 128/90 (103) 100 10/26/19 14:46 97.7 Height (Feet): 5 Height (Inches): 11.00 Weight (Pounds): 172 General Appearance: no acute distress HEENT: mucous membranes moist Respiratory/Chest: lungs clear Cardiovascular: normal rate Abdomen: soft, non tender Extremities: no edema 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: alert, oriented x 3, responsive Microbiology Date/Time Source Procedure Growth Status 10/24/19 15:45 Blood Blood Culture - Preliminary NO GROWTH AFTER 48 HOURS Resulted 10/24/19 15:30 Blood Blood Culture - Preliminary NO GROWTH AFTER 48 HOURS Resulted 10/24/19 15:30 Nasopharynx Coronavirus COVID-19 PCR (LEANDRO) - Final Complete 10/24/19 15:30 Nasal Nares - Final Complete 10/24/19 15:30 Nasal Nares - Final Complete Laboratory Tests Test 10/27/19 06:00 White Blood Count 12.1 K/UL (4.8-10.8) H Red Blood Count 2.34 M/UL (4.70-6.10) L Hemoglobin 7.0 G/DL (14.2-18.0) L Hematocrit 20.3 % (42.0-52.0) L Mean Corpuscular Volume 87 FL (80-99) Mean Corpuscular Hemoglobin 29.9 PG (27.0-31.0) Mean Corpuscular Hemoglobin Concent 34.5 G/DL (32.0-36.0) Red Cell Distribution Width 17.2 % (11.6-14.8) H Platelet Count 310 K/UL (150-450) Mean Platelet Volume 7.0 FL (6.5-10.1) Neutrophils (%) (Auto) % (45.0-75.0) Lymphocytes (%) (Auto) % (20.0-45.0) Monocytes (%) (Auto) % (1.0-10.0) Eosinophils (%) (Auto) % (0.0-3.0) Basophils (%) (Auto) % (0.0-2.0) Differential Total Cells Counted 100 Neutrophils % (Manual) 46 % (45-75) Lymphocytes % (Manual) 32 % (20-45) Monocytes % (Manual) 6 % (1-10) Eosinophils % (Manual) 16 % (0-3) H Basophils % (Manual) 0 % (0-2) Band Neutrophils 0 % (0-8) Platelet Estimate Adequate Platelet Morphology Normal Hypochromasia 2+ Anisocytosis 2+ Sickle Cells 1+ H Target Cells Occasional Sodium Level 142 MMOL/L (136-145) Potassium Level 4.8 MMOL/L (3.5-5.1) Chloride Level 106 MMOL/L (98-107) Carbon Dioxide Level 32 MMOL/L (21-32) Anion Gap 4 mmol/L (5-15) L Blood Urea Nitrogen 31 mg/dL (7-18) H Creatinine 0.9 MG/DL (0.55-1.30) Estimat Glomerular Filtration Rate > 60 mL/min (>60) Glucose Level 137 MG/DL (74-106) H Calcium Level 9.4 MG/DL (8.5-10.1) Phosphorus Level 4.1 MG/DL (2.5-4.9) Magnesium Level 1.5 MG/DL (1.8-2.4) L Total Bilirubin 0.6 MG/DL (0.2-1.0) Direct Bilirubin 0.2 MG/DL (0.0-0.3) Aspartate Amino Transf (AST/SGOT) 76 U/L (15-37) H Alanine Aminotransferase (ALT/SGPT) 113 U/L (12-78) H Alkaline Phosphatase 239 U/L (46-116) H Total Protein 6.6 G/DL (6.4-8.2) Albumin 3.5 G/DL (3.4-5.0) Current Medications Medications (Trade) Dose Ordered Sig/Anthony Route PRN Reason Start Time Stop Time Status Last Admin Dose Admin Acetaminophen (Tylenol) 650 mg Q6H PRN ORAL Mild Pain/Fever 10/26/19 18:00 11/24/19 17:59 Albuterol Sulfate (Proventil MDI) 1 puff TIDRT INH 10/26/19 19:00 10/30/19 06:59 Azithromycin 500 mg/Dextrose 275 ml @ 275 mls/hr Q24H IV 10/27/19 05:00 11/02/19 05:59 10/27/19 05:43 Ceftriaxone Sodium 1 gm/ Dextrose 55 ml @ 110 mls/hr Q24H IVPB 10/27/19 16:00 11/01/19 15:59 Dextrose/Sodium Chloride 1,000 ml @ 75 mls/hr [id number] IV 10/26/19 17:30 11/24/19 12:19 10/27/19 05:44 Diphenhydramine HCl (Benadryl) 25 mg Q4H PRN ORAL Itching 10/26/19 18:00 11/24/19 17:59 10/27/19 09:08 Docusate Sodium (Colace) 100 mg THREE TIMES A DAY ORAL 10/26/19 18:00 11/24/19 12:59 10/27/19 13:02 Folic Acid (Folate) 1 mg DAILY ORAL 10/27/19 09:00 11/24/19 08:59 10/27/19 09:08 Heparin Sodium (Porcine) (Heparin 5000 units/ml) 5,000 units EVERY 12 HOURS SUBQ 10/26/19 21:00 12/09/19 08:59 Hydromorphone HCl (Dilaudid) 1 mg Q3H PRN IVP BREAKTHROUGH PAIN 10/27/19 11:00 11/01/19 02:29 10/27/19 11:01 Hydromorphone HCl (Dilaudid) 14 mg Q4H ORAL 10/27/19 01:00 11/03/19 00:59 10/27/19 13:05 Hydroxyurea (Hydrea) 500 mg TWICE A DAY ORAL 10/26/19 18:00 10/30/19 08:59 10/27/19 09:09 Lacosamide (Vimpat) 100 mg Q12HR ORAL 10/26/19 21:00 01/23/20 08:59 10/27/19 09:08 Methadone HCl (Methadone HCl) 60 mg Q6HR ORAL 10/26/19 18:00 11/01/19 07:03 10/27/19 13:03 Ondansetron HCl (Zofran) 4 mg Q6H PRN IVP Nausea & Vomiting 10/26/19 18:00 11/24/19 17:59 Pantoprazole (Protonix) 40 mg EVERY 12 HOURS ORAL 10/26/19 21:00 11/24/19 12:29 10/27/19 09:08 Alex Nash MD Oct 27, 2019 14:33
[2019-10-27] MEDS: cefTRIAXone 1 GM in D5W 55 ML IVPB SCH (16:55)
--- NOTE | 2019-10-27 18:00 | Consultation ---
DATE OF CONSULTATION: 10/27/2019 PAIN MANAGEMENT CONSULTATION CONSULTING PHYSICIAN: Oleg Perera M.D. REFERRING PHYSICIAN: Griffin Recinos M.D. PHYSICIAN APPLIED TECHNOLOGIST: Marin Zambrano CHIEF COMPLAINT: Generalized body pain. HISTORY OF PRESENT ILLNESS: This is a 43-year-old male who has been seen at the Med/Surg floor of [facility] for comprehensive pain management consultation. The patient is a known patient from previous hospital admissions now readmitted under the care of Dr. 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 At this time, he was started on methadone 60 mg every 6 hours around the clock as well as Dilaudid 40 mg every four hours scheduled, 1 mg Dilaudid every there every 3 hours as needed for breakthrough pain. The patient reports that his pain has been tolerated on this medication regimen and we were consulted so that the patient would have adequate pain control while here in the hospital. REVIEW OF SYSTEMS: Denies rash, fever, chills, sweating, dizziness, drowsiness, blurred vision, . No shortness of breath, chest pain, palpitations. No nausea, vomiting, diarrhea, blood in the stool or urine. No dysuria. PHYSICAL EXAMINATION: VITAL SIGNS: The patient is alert, awake, and oriented. VITAL SIGNS: Blood pressure 119/62, heart rate 81, oxygen saturation 98%, respiratory rate 18, temperature 97.9 degrees Fahrenheit. LUNGS: Decreased breath sounds bilaterally. HEART: S1 and S2 regular. ABDOMEN: Soft, nontender. EXTREMITIES: No cyanosis, no clubbing. NEUROLOGICAL: Weakness noted in bilateral upper and lower extremities. ASSESSMENT AND PLAN: This is a 43-year-old male with sickle cell disease, sickle cell crisis, intractable pain, bilateral femur head avascular necrosis. The patient will be continued on Dilaudid and methadone. Parameters will be set to hold opioids for oversedation or lethargy or systolic blood pressure below 90 or diastolic blood pressure over 60 or respiratory rate below 12 or oxygen saturation below 92%. The patient was discussed with Dr. Perera and Dr. Perera concurred. We will follow the patient. Thank you very much for the courtesy of this consultation Oleg Perera M.D. KATHLEEN Zambrano DR: Vitaly JOB#: [id number] CC:
--- NOTE | 2019-10-27 19:48 | NUR ---
HAND-OFF: Report given to KATRIN VILLALOBOS. PAtient is in stable condition.
--- NOTE | 2019-10-27 20:05 | NUR ---
NURSE NOTES: Received patient awake, alert, verbal, sitting in bed, complained of generalized body pain, subsequently given pain meds as ordered.
[2019-10-27 20:09] VITALS: BP 116/74
--- NOTE | 2019-10-27 20:33 | General Progress Note ---
Assessment/Plan Problem List: (1) Chronic pain ICD Codes: G89.29 - Other chronic pain SNOMED: 11753980 (2) Sickle cell anemia ICD Codes: D57.1 - Sickle-cell disease without crisis SNOMED: 112049574 (3) Suspected COVID-19 virus infection ICD Codes: R68.89 - Other general symptoms and signs SNOMED: 739078788 (4) Dehydration ICD Codes: E86.0 - Dehydration SNOMED: 79741944 (5) Electrolyte imbalance ICD Codes: E87.8 - Other disorders of electrolyte and fluid balance, not elsewhere classified SNOMED: 728661206 (6) Sickle cell disease ICD Codes: D57.1 - Sickle-cell disease without crisis SNOMED: 112340585 (7) Seizure disorder ICD Codes: G40.909 - Epilepsy, unspecified, not intractable, without status epilepticus SNOMED: 402157952 (8) Pulmonary HTN ICD Codes: I27.2 - Other secondary pulmonary hypertension SNOMED: 58140889 Status: progressing Assessment/Plan: afebrile chronic pain sickcle cell crisis hb 7 will inform heme/onc no wheezing r/o covid resp insuff Subjective ROS Limited/Unobtainable: Yes Allergies: Coded Allergies: PENTAMIDINE ISETHIONATE (Verified Allergy, Severe, palpitations, 08/27/17) AMPICILLIN (Verified Allergy, Unknown, hives, 01/05/18) Tolerated CEftriaxone 01/02/18 KETOROLAC (Verified Allergy, Unknown, 08/03/16) MORPHINE (Verified Allergy, Unknown, 08/03/16) PHENYTOIN (Verified Allergy, Unknown, 08/03/16) Objective Last 24 Hour Vital Signs Date Time Temp Pulse Resp B/P (MAP) Pulse Ox O2 Delivery O2 Flow Rate FiO2 10/27/19 20:20 Nasal Cannula 6.0 Nasal Cannula 6.0 10/27/19 20:15 Nasal Cannula 4.0 36 10/27/19 20:14 Nasal Cannula 4.0 36 10/27/19 20:09 97.9 76 18 116/74 (88) 99 10/27/19 16:00 97.9 94 18 96 10/27/19 13:20 Nasal Cannula 4.0 36 10/27/19 13:20 Nasal Cannula 4.0 36 10/27/19 12:00 99.1 87 19 133/80 (97) 96 4/12/20 09:40 97.9 10/27/19 09:00 Nasal Cannula 6.0 Nasal Cannula 6.0 10/27/19 08:00 97.9 81 18 119/60 (79) 98 10/27/19 07:23 Nasal Cannula 4.0 36 10/27/19 07:23 Nasal Cannula 4.0 36 10/27/19 00:00 98.1 79 18 105/68 (80) 100 10/26/19 21:00 Nasal Cannula 6.0 Nasal Cannula 6.0 Intake and Output 10/26/19 10/27/19 19:00 07:00 Intake Total 60 ml 825 ml Output Total 500 ml 700 ml Balance -440 ml 125 ml Intake Oral 60 ml IV Total 825 ml Output Urine Total 500 ml 700 ml Laboratory Tests 10/27/19 06:00: White Blood Count 12.1H, Red Blood Count 2.34L, Hemoglobin 7.0L, Hematocrit 20.3L, Mean Corpuscular Volume 87, Mean Corpuscular Hemoglobin 29.9, Mean Corpuscular Hemoglobin Concent 34.5, Red Cell Distribution Width 17.2H, Platelet Count 310, Mean Platelet Volume 7.0, Neutrophils (%) (Auto) , Lymphocytes (%) (Auto) , Monocytes (%) (Auto) , Eosinophils (%) (Auto) , Basophils (%) (Auto) , Differential Total Cells Counted 100, Neutrophils % ( Manual) 46, Lymphocytes % (Manual) 32, Monocytes % (Manual) 6, Eosinophils % ( Manual) 16H, Basophils % (Manual) 0, Band Neutrophils 0, Platelet Estimate Adequate, Platelet Morphology Normal, Hypochromasia 2+, Anisocytosis 2+, Sickle Cells 1+H, Target Cells Occasional, Sodium Level 142, Potassium Level 4.8, Chloride Level 106, Carbon Dioxide Level 32, Anion Gap 4L, Blood Urea Nitrogen 31H, Creatinine 0.9, Estimat Glomerular Filtration Rate > 60, Glucose Level 137H , Calcium Level 9.4, Phosphorus Level 4.1, Magnesium Level 1.5L, Total Bilirubin 0.6, Direct Bilirubin 0.2, Aspartate Amino Transf (AST/SGOT) 76H, Alanine Aminotransferase (ALT/SGPT) 113H, Alkaline Phosphatase 239H, Total Protein 6.6, Albumin 3.5 Height (Feet): 5 Height (Inches): 11.00 Weight (Pounds): 172 Griffin Recinos MD Oct 27, 2019 20:33
[2019-10-27] MEDS ORDERED: DiphenhydrAMINE 50mg/ml Inj IVP SCH (22:00)
--- NOTE | 2019-10-27 23:06 | Pulmonology Progress Note ---
Assessment/Plan Assessment/Plan Pulmonary Progress Note HPI 43-year-old male with history of sickle cell anemia admitted complaining of 1 week of generalized body ache, cough and congestion. Noted to have low O2 saturations and tachypnea in the ED, afebrile upon arrival, improved with O2 supplementation. Patient follows with [facility], is taking hydromorphone at home. Appears to be in no distress at this time. Chronic bilateral infiltrates noted on chest x-ray. Denies chest pain, headache and dizziness. Has shortness of breath. Denies abdominal pain, nausea vomiting diarrhea. Patient is on home oxygen, up to 6L/min at home, less SOB Allergies: PENTAMIDINE ISETHIONATE (Verified Allergy, Severe, palpitations, 08/27/17) AMPICILLIN (Verified Allergy, Unknown, hives, 01/05/18) Tolerated CEftriaxone 01/02/18 KETOROLAC (Verified Allergy, Unknown, 08/03/16) MORPHINE (Verified Allergy, Unknown, 08/03/16) PHENYTOIN (Verified Allergy, Unknown, 08/03/16) Past Medical History: Sickle Cell Disease, Asthma/COPD, Hypertension, Seizure History, GERD All Other Systems: negative except mentioned in HPI Physical Exam Vital Signs Noted General Appearance: no apparent distress, alert, GCS 15, non-toxic Head: normocephalic, atraumatic Eyes: bilateral eye normal inspection, bilateral eye PERRL ENT: hearing grossly normal, normal pharynx, no angioedema, normal voice Respiratory: chest non-tender, no retraction, no accessory muscle use, no wheezing, crackles - Diffuse bilateral, speaking full sentences Cardiovascular: regular rate, rhythm, HS1, HS2, RRR, no edema, no murmur Gastrointestinal: non tender, soft, no mass Genitourinary: no CVA tenderness Musculoskeletal: back normal Neurologic: alert, motor strength/tone normal, oriented x3, sensory intact, responsive, speech normal Skin: no rash Impression: Sickle cell disease Chest syndrome Pneumonia versus suspected COVID-19 virus infection Possible SCD exacerbation Respiratory distress Asthma/COPD Hypertension Seizure History GERD Plan O2 PRN IVF IV Antibiotics - Ceftriaxone/Azithromycin Bronchodilators PPX Monitor labs Pain medications Await cultures/viral studies, if Covid19 positive add Hydroxychloroquine [employer]ER Medications EKG: Rate: normal Rhythm: NSR ST Segments: no acute changes Other Impression No acute ST changes Chest X-Ray: no effusion, no acute cardiopulmonary disease, other - diffuse infiltrates bilaterally, appear to be chronic changes Subjective ROS Limited/Unobtainable: No Respiratory: Reports: shortness of breath Musculoskeletal: Reports: pain Allergies: Coded Allergies: PENTAMIDINE ISETHIONATE (Verified Allergy, Severe, palpitations, 08/27/17) AMPICILLIN (Verified Allergy, Unknown, hives, 01/05/18) Tolerated CEftriaxone 01/02/18 KETOROLAC (Verified Allergy, Unknown, 08/03/16) MORPHINE (Verified Allergy, Unknown, 08/03/16) PHENYTOIN (Verified Allergy, Unknown, 08/03/16) Objective Last 24 Hour Vital Signs Date Time Temp Pulse Resp B/P (MAP) Pulse Ox O2 Delivery O2 Flow Rate FiO2 10/27/19 21:33 97.9 10/27/19 20:20 Nasal Cannula 6.0 Nasal Cannula 6.0 10/27/19 20:15 Nasal Cannula 4.0 36 10/27/19 20:14 Nasal Cannula 4.0 36 10/27/19 20:09 97.9 76 18 116/74 (88) 99 10/27/19 16:00 97.9 94 18 96 10/27/19 13:20 Nasal Cannula 4.0 36 10/27/19 13:20 Nasal Cannula 4.0 36 10/27/19 12:00 99.1 87 19 133/80 (97) 96 10/27/19 09:00 Nasal Cannula 6.0 Nasal Cannula 6.0 10/27/19 08:00 97.9 81 18 119/60 (79) 98 10/27/19 07:23 Nasal Cannula 4.0 36 10/27/19 07:23 Nasal Cannula 4.0 36 10/27/19 00:00 98.1 79 18 105/68 (80) 100 Intake and Output 10/26/19 10/27/19 19:00 07:00 Intake Total 60 ml 825 ml Output Total 500 ml 700 ml Balance -440 ml 125 ml Intake Oral 60 ml IV Total 825 ml Output Urine Total 500 ml 700 ml Laboratory Tests 10/27/19 06:00: White Blood Count 12.1H, Red Blood Count 2.34L, Hemoglobin 7.0L, Hematocrit 20.3L, Mean Corpuscular Volume 87, Mean Corpuscular Hemoglobin 29.9, Mean Corpuscular Hemoglobin Concent 34.5, Red Cell Distribution Width 17.2H, Platelet Count 310, Mean Platelet Volume 7.0, Neutrophils (%) (Auto) , Lymphocytes (%) (Auto) , Monocytes (%) (Auto) , Eosinophils (%) (Auto) , Basophils (%) (Auto) , Differential Total Cells Counted 100, Neutrophils % ( Manual) 46, Lymphocytes % (Manual) 32, Monocytes % (Manual) 6, Eosinophils % ( Manual) 16H, Basophils % (Manual) 0, Band Neutrophils 0, Platelet Estimate Adequate, Platelet Morphology Normal, Hypochromasia 2+, Anisocytosis 2+, Sickle Cells 1+H, Target Cells Occasional, Sodium Level 142, Potassium Level 4.8, Chloride Level 106, Carbon Dioxide Level 32, Anion Gap 4L, Blood Urea Nitrogen 31H, Creatinine 0.9, Estimat Glomerular Filtration Rate > 60, Glucose Level 137H , Calcium Level 9.4, Phosphorus Level 4.1, Magnesium Level 1.5L, Total Bilirubin 0.6, Direct Bilirubin 0.2, Aspartate Amino Transf (AST/SGOT) 76H, Alanine Aminotransferase (ALT/SGPT) 113H, Alkaline Phosphatase 239H, Total Protein 6.6, Albumin 3.5 Current Medications Medications (Trade) Dose Ordered Sig/Anthony Route PRN Reason Start Time Stop Time Status Last Admin Dose Admin Acetaminophen (Tylenol) 650 mg Q6H PRN ORAL Mild Pain/Fever 10/26/19 18:00 11/24/19 17:59 Albuterol Sulfate (Proventil MDI) 1 puff TIDRT INH 10/26/19 19:00 10/30/19 06:59 Azithromycin 500 mg/Dextrose 275 ml @ 275 mls/hr Q24H IV 10/27/19 05:00 11/02/19 05:59 10/27/19 05:43 Ceftriaxone Sodium 1 gm/ Dextrose 55 ml @ 110 mls/hr Q24H IVPB 10/27/19 16:00 11/01/19 15:59 10/27/19 16:55 Dextrose/Sodium Chloride 1,000 ml @ 75 mls/hr [id number] IV 10/26/19 17:30 11/24/19 12:19 10/27/19 19:55 Diphenhydramine HCl (Benadryl) 25 mg Q4H PRN ORAL Itching 10/26/19 18:00 11/24/19 17:59 10/27/19 16:55 Diphenhydramine HCl (Benadryl) 50 mg ONCE IVP 10/28/19 03:00 10/28/19 05:00 Docusate Sodium (Colace) 100 mg THREE TIMES A DAY ORAL 10/26/19 18:00 11/24/19 12:59 10/27/19 17:53 Folic Acid (Folate) 1 mg DAILY ORAL 10/27/19 09:00 11/24/19 08:59 10/27/19 09:08 Heparin Sodium (Porcine) (Heparin 5000 units/ml) 5,000 units EVERY 12 HOURS SUBQ 10/26/19 21:00 12/09/19 08:59 10/27/19 21:03 Hydromorphone HCl (Dilaudid) 1 mg Q3H PRN IVP BREAKTHROUGH PAIN 10/27/19 11:00 11/01/19 02:29 10/27/19 19:55 Hydromorphone HCl (Dilaudid) 14 mg Q4H ORAL 10/27/19 01:00 11/03/19 00:59 10/27/19 21:02 Hydroxyurea (Hydrea) 500 mg TWICE A DAY ORAL 10/26/19 18:00 10/30/19 08:59 10/27/19 17:53 Lacosamide (Vimpat) 100 mg Q12HR ORAL 10/26/19 21:00 01/23/20 08:59 10/27/19 21:02 Methadone HCl (Methadone HCl) 60 mg Q6HR ORAL 10/26/19 18:00 11/01/19 07:03 10/27/19 17:55 Ondansetron HCl (Zofran) 4 mg Q6H PRN IVP Nausea & Vomiting 10/26/19 18:00 11/24/19 17:59 Pantoprazole (Protonix) 40 mg EVERY 12 HOURS ORAL 10/26/19 21:00 11/24/19 12:29 10/27/19 21:02 Artie Finnegan MD Oct 27, 2019 23:06
[2019-10-28 00:06] VITALS: BP 129/90
[2019-10-28] MEDS ORDERED: DiphenhydrAMINE 50mg/ml Inj ONE (00:19)
[2019-10-28] MEDS: HYDROmorphone 4mg tab ORAL SCH ×5 (01:06→17:27)
[2019-10-28] MEDS: HYDROmorphone 1mg/ml Carpuject IVP PRN ×3 (02:44→14:39)
[2019-10-28] MEDS ORDERED: DiphenhydrAMINE 50mg/ml Inj IVP SCH (03:00)
[2019-10-28 04:00] VITALS: BP 119/77
--- NOTE | 2019-10-28 04:00 | NUR ---
NURSE NOTES: Transfused one unit of PRBC. No adverse reaction noted.
[2019-10-28] MEDS: Azithromycin 500 MG in D5W 275 ML IV SCH (05:06)
[2019-10-28] MEDS: DiphenhydrAMINE 25mg Tab ORAL PRN (06:09)
[2019-10-28] MEDS: Albuterol 90mcg Inhaler 8gm INH SCH ×2 (07:00→13:00)
--- NOTE | 2019-10-28 07:18 | NUR ---
HAND-OFF: Report given to Yeimy Raymond RN.
[2019-10-28 07:25] LABS: BASOPHILS % (AUTO) 1.2 % (0.0-2.0); EOSINOPHILS % (AUTO) 8.5 % (0.0-3.0); HEMATOCRIT 24.3 % (42.0-52.0); HEMOGLOBIN 8.3 G/DL (14.2-18.0); LYMPHOCYTES % (AUTO) 49.2 % (20.0-45.0); MEAN CORPUSCULAR VOLUME 87 FL (80-99); MONOCYTES % (AUTO) 3.8 % (1.0-10.0); NEUTROPHILS % (AUTO) 37.3 % (45.0-75.0); PLATELET COUNT 319 K/UL (150-450); RED BLOOD COUNT 2.79 M/UL (4.70-6.10); RED CELL DISTRIBUTION WIDTH 17.4 % (11.6-14.8); WHITE BLOOD COUNT 15.7 K/UL (4.8-10.8)
[2019-10-28 07:30] LABS: ANION GAP 3 mmol/L (5-15); BLOOD UREA NITROGEN 30 mg/dL (7-18); CALCIUM 9.7 MG/DL (8.5-10.1); CARBON DIOXIDE 33 MMOL/L (21-32); CHLORIDE 106 MMOL/L (98-107); CREATININE 0.9 MG/DL (0.55-1.30); POTASSIUM 5.3 MMOL/L (3.5-5.1); SODIUM 142 MMOL/L (136-145)
--- NOTE | 2019-10-28 07:39 | NUR ---
NURSE NOTES: Received patient awake sitting at the edge of the bed, alert, verbal, no sign of distress, no complain of pain, only asking for more food. Called dietary, left message with pt's request. Patient receives D5 1/2 NS 2 75cc/hr through R subclavian Port-A-cath. Call light within easy reach. Will continue to monitor pt and follow up with the plan of care.
--- NOTE | 2019-10-28 07:40 | NUR ---
RESPIRATORY NOTE: At 0725, unable to find Rx Albuterol MDI in the cassette or in pt's room. Informed pharmacist and GRISELDA Gaffney about it. At 0735, diploma pharmacy technician found the RX and gave it to me. Went to pt's room to given it but pt refused, stated that he was fine. GRISELDA Gaffney made aware. Will try again at 1300. Pt is awake, alert, no SOB or resp distress noted.
[2019-10-28 08:00] VITALS: BP 144/80
[2019-10-28] MEDS: Sodium Polystyrene Sulfonate 15gm Powder ORAL SCH ×2 (08:00→08:34)
[2019-10-28] MEDS: Lacosamide 50mg tablet ORAL SCH (08:28)
[2019-10-28] MEDS: Docusate 100mg cap ORAL SCH ×3 (08:29→17:27)
[2019-10-28] MEDS: Hydroxyurea 500mg cap ORAL SCH ×2 (08:29→17:27)
[2019-10-28] MEDS: Heparin 5000 units/ml inj SUBQ SCH (08:32)
--- NOTE | 2019-10-28 09:20 | NUR ---
NURSE NOTES patient refused Kayaxelate, explained the reason why he should take this medication, and possible outcome of not taken, patient still refused, and said he'd like to talk to his dr. Dr Hutchins on the floor, nurse informed pt didn't take Kayaxelate. spoken to pt about medication necessity and possible outcome. patient still refused.
[2019-10-28] MEDS: D5 1/2NS 1,000 ML IV SCH (09:30)
[2019-10-28 12:00] VITALS: BP 136/79
--- NOTE | 2019-10-28 12:18 | Infectious Diseases Prog Note ---
Assessment/Plan Assessment/Plan A 1. pneumonia COVID19 negative 4.9.20 2. sickle cell crisis 3. COPD 4. asthma P 1. can be discharged with PO Levaquin X 3 days 2. Case was D/W primary MD Subjective ROS Limited/Unobtainable: Yes Allergies: Coded Allergies: PENTAMIDINE ISETHIONATE (Verified Allergy, Severe, palpitations, 08/27/17) AMPICILLIN (Verified Allergy, Unknown, hives, 01/05/18) Tolerated CEftriaxone 01/02/18 KETOROLAC (Verified Allergy, Unknown, 08/03/16) MORPHINE (Verified Allergy, Unknown, 08/03/16) PHENYTOIN (Verified Allergy, Unknown, 08/03/16) Objective Vital Signs Last 24 Hour Vital Signs Date Time Temp Pulse Resp B/P (MAP) Pulse Ox O2 Delivery O2 Flow Rate FiO2 10/28/19 10:01 98.1 10/28/19 09:00 98.1 10/28/19 08:00 98.1 90 18 144/80 (101) 97 10/28/19 07:27 78 18 99 Nasal Cannula 4.0 36 10/28/19 07:27 99 Nasal Cannula 4.0 36 10/28/19 04:00 98.1 76 18 119/77 (91) 98 10/28/19 01:06 98.5 10/28/19 00:06 98.5 71 18 129/90 (103) 100 10/27/19 20:20 Nasal Cannula 6.0 Nasal Cannula 6.0 10/27/19 20:15 Nasal Cannula 4.0 36 10/27/19 20:14 Nasal Cannula 4.0 36 10/27/19 20:09 97.9 76 18 116/74 (88) 99 10/27/19 16:00 97.9 94 18 96 10/27/19 13:20 Nasal Cannula 4.0 36 10/27/19 13:20 Nasal Cannula 4.0 36 Height (Feet): 5 Height (Inches): 11.00 Weight (Pounds): 172 General Appearance: no acute distress HEENT: mucous membranes moist Respiratory/Chest: lungs clear Cardiovascular: normal rate Abdomen: soft, non tender Extremities: no edema 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: other - sleeping Laboratory Tests Test 10/28/19 06:00 White Blood Count 15.7 K/UL (4.8-10.8) H Red Blood Count 2.79 M/UL (4.70-6.10) L Hemoglobin 8.3 G/DL (14.2-18.0) L Hematocrit 24.3 % (42.0-52.0) L Mean Corpuscular Volume 87 FL (80-99) Mean Corpuscular Hemoglobin 29.9 PG (27.0-31.0) Mean Corpuscular Hemoglobin Concent 34.3 G/DL (32.0-36.0) Red Cell Distribution Width 17.4 % (11.6-14.8) H Platelet Count 319 K/UL (150-450) Mean Platelet Volume 6.7 FL (6.5-10.1) Neutrophils (%) (Auto) 37.3 % (45.0-75.0) L Lymphocytes (%) (Auto) 49.2 % (20.0-45.0) H Monocytes (%) (Auto) 3.8 % (1.0-10.0) Eosinophils (%) (Auto) 8.5 % (0.0-3.0) H Basophils (%) (Auto) 1.2 % (0.0-2.0) Sodium Level 142 MMOL/L (136-145) Potassium Level 5.3 MMOL/L (3.5-5.1) H Chloride Level 106 MMOL/L (98-107) Carbon Dioxide Level 33 MMOL/L (21-32) H Anion Gap 3 mmol/L (5-15) L Blood Urea Nitrogen 30 mg/dL (7-18) H Creatinine 0.9 MG/DL (0.55-1.30) Estimat Glomerular Filtration Rate > 60 mL/min (>60) Glucose Level 89 MG/DL (74-106) Calcium Level 9.7 MG/DL (8.5-10.1) Current Medications Medications (Trade) Dose Ordered Sig/Anthony Route PRN Reason Start Time Stop Time Status Last Admin Dose Admin Acetaminophen (Tylenol) 650 mg Q6H PRN ORAL Mild Pain/Fever 10/26/19 18:00 11/24/19 17:59 10/28/19 00:35 Albuterol Sulfate (Proventil MDI) 1 puff TIDRT INH 10/26/19 19:00 10/30/19 06:59 Azithromycin 500 mg/Dextrose 275 ml @ 275 mls/hr Q24H IV 10/27/19 05:00 11/02/19 05:59 10/28/19 05:06 Ceftriaxone Sodium 1 gm/ Dextrose 55 ml @ 110 mls/hr Q24H IVPB 10/27/19 16:00 11/01/19 15:59 10/27/19 16:55 Dextrose/Sodium Chloride 1,000 ml @ 75 mls/hr [id number] IV 10/26/19 17:30 11/24/19 12:19 10/27/19 19:55 Diphenhydramine HCl (Benadryl) 25 mg Q4H PRN ORAL Itching 10/26/19 18:00 11/24/19 17:59 10/28/19 06:09 Docusate Sodium (Colace) 100 mg THREE TIMES A DAY ORAL 10/26/19 18:00 11/24/19 12:59 10/28/19 08:29 Folic Acid (Folate) 1 mg DAILY ORAL 10/27/19 09:00 11/24/19 08:59 10/28/19 08:33 Heparin Sodium (Porcine) (Heparin 5000 units/ml) 5,000 units EVERY 12 HOURS SUBQ 10/26/19 21:00 12/09/19 08:59 10/28/19 08:32 Hydromorphone HCl (Dilaudid) 1 mg Q3H PRN IVP BREAKTHROUGH PAIN 10/27/19 11:00 11/01/19 02:29 10/28/19 08:30 Hydromorphone HCl (Dilaudid) 14 mg Q4H ORAL 10/27/19 01:00 11/03/19 00:59 10/28/19 09:31 Hydroxyurea (Hydrea) 500 mg TWICE A DAY ORAL 10/26/19 18:00 10/30/19 08:59 10/28/19 08:29 Lacosamide (Vimpat) 100 mg Q12HR ORAL 10/26/19 21:00 01/23/20 08:59 10/28/19 08:28 Methadone HCl (Methadone HCl) 60 mg Q6HR ORAL 10/26/19 18:00 11/01/19 07:03 10/28/19 11:31 Ondansetron HCl (Zofran) 4 mg Q6H PRN IVP Nausea & Vomiting 10/26/19 18:00 11/24/19 17:59 Pantoprazole (Protonix) 40 mg EVERY 12 HOURS ORAL 10/26/19 21:00 11/24/19 12:29 10/28/19 08:29 Alex Nash MD Oct 28, 2019 12:18
--- NOTE | 2019-10-28 12:35 | Nephrology Progress Note ---
Assessment/Plan Problem List: (1) Hyperkalemia (2) Dehydration (3) Electrolyte imbalance Assessment: Hyperkalemia (4) Sickle cell disease (5) Anemia (6) Elevated liver enzymes Assessment Dehydration HyperKalemia Suspected COVID-19 virus infection Respiratory distress Sickle cell anemia Elevated liver enzymes Plan Today's labs reviewed, potassium is elevated, will give a dose of oral Kayexalate hydrate to be continued Monitor renal parameters and electrolytes Per orders Per consultants Subjective ROS Limited/Unobtainable: No Constitutional: Reports: malaise Objective Objective Last 24 Hour Vital Signs Date Time Temp Pulse Resp B/P (MAP) Pulse Ox O2 Delivery O2 Flow Rate FiO2 10/28/19 10:01 98.1 10/28/19 09:00 98.1 10/28/19 08:00 98.1 90 18 144/80 (101) 97 10/28/19 07:27 78 18 99 Nasal Cannula 4.0 36 10/28/19 07:27 99 Nasal Cannula 4.0 36 10/28/19 04:00 98.1 76 18 119/77 (91) 98 10/28/19 01:06 98.5 10/28/19 00:06 98.5 71 18 129/90 (103) 100 10/27/19 20:20 Nasal Cannula 6.0 Nasal Cannula 6.0 10/27/19 20:15 Nasal Cannula 4.0 36 10/27/19 20:14 Nasal Cannula 4.0 36 10/27/19 20:09 97.9 76 18 116/74 (88) 99 10/27/19 16:00 97.9 94 18 96 10/27/19 13:20 Nasal Cannula 4.0 36 10/27/19 13:20 Nasal Cannula 4.0 36 Intake and Output 10/27/19 10/28/19 19:00 07:00 Intake Total 960 ml 1770 ml Output Total 1200 ml Balance -240 ml 1770 ml Intake Oral 960 ml 800 ml IV Total 720 ml Blood Product 250 ml Output Urine Total 1200 ml # Voids 2 4 Laboratory Tests 10/28/19 06:00: White Blood Count 15.7H, Red Blood Count 2.79L, Hemoglobin 8.3L, Hematocrit 24.3L, Mean Corpuscular Volume 87, Mean Corpuscular Hemoglobin 29.9, Mean Corpuscular Hemoglobin Concent 34.3, Red Cell Distribution Width 17.4H, Platelet Count 319, Mean Platelet Volume 6.7, Neutrophils (%) (Auto) 37.3L, Lymphocytes (%) (Auto) 49.2H, Monocytes (%) (Auto) 3.8, Eosinophils (%) (Auto) 8.5H, Basophils (%) (Auto) 1.2, Sodium Level 142, Potassium Level 5.3H, Chloride Level 106, Carbon Dioxide Level 33H, Anion Gap 3L, Blood Urea Nitrogen 30H, Creatinine 0.9, Estimat Glomerular Filtration Rate > 60, Glucose Level 89, Calcium Level 9.7 Height (Feet): 5 Height (Inches): 11.00 Weight (Pounds): 172 General Appearance: no apparent distress Objective No change Iglesia Hutchins MD Oct 28, 2019 12:35
--- NOTE | 2019-10-28 14:01 | General Progress Note ---
Assessment/Plan Assessment/Plan: (1) Intractable pain (2) Sickle cell disease and Crisis (3) B/L Femur head AVN Patient will be continued on Methadone and Dilaudid D/w Dr. Perera and he concurred. Subjective Date patient seen: Oct 28, 2019 Time patient seen: 01:00 - pm Constitutional: Reports: weakness HEENT: Reports: no symptoms Cardiovascular: Reports: no symptoms Respiratory: Reports: shortness of breath Gastrointestinal/Abdominal: Reports: no symptoms Genitourinary: Reports: no symptoms 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: Reports: weakness Endocrine: Reports: no symptoms Hematologic/Lymphatic: Reports: no symptoms Allergies: Coded Allergies: PENTAMIDINE ISETHIONATE (Verified Allergy, Severe, palpitations, 08/27/17) AMPICILLIN (Verified Allergy, Unknown, hives, 01/05/18) Tolerated CEftriaxone 01/02/18 KETOROLAC (Verified Allergy, Unknown, 08/03/16) MORPHINE (Verified Allergy, Unknown, 08/03/16) PHENYTOIN (Verified Allergy, Unknown, 08/03/16) Subjective Patient continues to c/o pain which has been severe however has been tolerated on the Methadone and Dilaudid. Has no new complaints at this time. Objective Last 24 Hour Vital Signs Date Time Temp Pulse Resp B/P (MAP) Pulse Ox O2 Delivery O2 Flow Rate FiO2 10/28/19 13:19 Nasal Cannula 10/28/19 13:19 Nasal Cannula 10/28/19 12:00 98.5 96 19 136/79 (98) 98 10/28/19 10:01 98.1 10/28/19 09:00 Nasal Cannula 6.0 Nasal Cannula 6.0 10/28/19 09:00 98.1 10/28/19 08:00 98.1 90 18 144/80 (101) 97 10/28/19 07:27 78 18 99 Nasal Cannula 4.0 36 10/28/19 07:27 99 Nasal Cannula 4.0 36 10/28/19 04:00 98.1 76 18 119/77 (91) 98 10/28/19 01:06 98.5 10/28/19 00:06 98.5 71 18 129/90 (103) 100 10/27/19 20:20 Nasal Cannula 6.0 Nasal Cannula 6.0 10/27/19 20:15 Nasal Cannula 4.0 36 10/27/19 20:14 Nasal Cannula 4.0 36 10/27/19 20:09 97.9 76 18 116/74 (88) 99 10/27/19 16:00 97.9 94 18 96 Intake and Output 10/27/19 10/28/19 19:00 07:00 Intake Total 960 ml 1770 ml Output Total 1200 ml Balance -240 ml 1770 ml Intake Oral 960 ml 800 ml IV Total 720 ml Blood Product 250 ml Output Urine Total 1200 ml # Voids 2 4 Laboratory Tests 10/28/19 06:00: White Blood Count 15.7H, Red Blood Count 2.79L, Hemoglobin 8.3L, Hematocrit 24.3L, Mean Corpuscular Volume 87, Mean Corpuscular Hemoglobin 29.9, Mean Corpuscular Hemoglobin Concent 34.3, Red Cell Distribution Width 17.4H, Platelet Count 319, Mean Platelet Volume 6.7, Neutrophils (%) (Auto) 37.3L, Lymphocytes (%) (Auto) 49.2H, Monocytes (%) (Auto) 3.8, Eosinophils (%) (Auto) 8.5H, Basophils (%) (Auto) 1.2, Sodium Level 142, Potassium Level 5.3H, Chloride Level 106, Carbon Dioxide Level 33H, Anion Gap 3L, Blood Urea Nitrogen 30H, Creatinine 0.9, Estimat Glomerular Filtration Rate > 60, Glucose Level 89, Calcium Level 9.7 Height (Feet): 5 Height (Inches): 11.00 Weight (Pounds): 172 General Appearance: no apparent distress, alert EENT: PERRL/EOMI, normal ENT inspection Neck: non-tender, normal alignment Cardiovascular: normal rate, regular rhythm Respiratory/Chest: decreased breath sounds Abdomen: non tender, soft Extremities: swelling Edema: trace edema Neurologic: alert, oriented x 3 Cj Anderson Oct 28, 2019 14:00
--- NOTE | 2019-10-28 14:18 | Hematology/Onc Progress Note ---
Assessment/Plan Assessment/Plan ASSESSMENT/Recs # Sickle cell disease with crisis presentation with total body pain as well as cp --> IVF, benadryl, dilaudid --> No evidence of hemolysis is noted, peripheral smear has been reviewed. --> Hgb goal >7. Transfuse prn. --> Epogen or iron at this time is not particularly indicated --> Medications have been reviewed ==> continue on hydroxyurea --> hgb trend 8-->7.3->8.3 # Leukocytosis. Likely related to underlying infection versus reactive process --> have reviewed peripheral smear and bandemia/neutrophilia noted --> continue antibiotics if they have been started by ID team --> monitor for resolution --> trend wbc 21-->17->16 # DVT of the bilateral lower ext --> hold off on anticoagulation at this time # History of seizure disorder, continue gabapentin as above. # Pulmonary hypertension. 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 Greatly appreciate consultation! Subjective Constitutional: Denies: no symptoms, chills, fever, malaise, weakness, other HEENT: Denies: no symptoms, eye pain, blurred vision, tearing, double vision, ear pain, ear discharge, nose pain, nose congestion, throat pain, throat swelling, mouth pain, mouth swelling, other Cardiovascular: Denies: no symptoms, chest pain, edema, irregular heart rate, lightheadedness, palpitations, syncope, other Respiratory: Denies: no symptoms, cough, shortness of breath, SOB with excertion, SOB at rest, sputum, wheezing, other Gastrointestinal/Abdominal: Denies: no symptoms, abdomen distended, abdominal pain, black stools, tarry stools, blood in stool, constipated, diarrhea, difficulty swallowing, nausea, poor appetite, poor fluid intake, rectal bleeding , vomiting, other Genitourinary: Denies: no symptoms, burning, discharge, frequency, flank pain, hematuria, incontinence, pain, urgency, other 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: Denies: no symptoms, anxiety, depressed, emotional problems, headache, numbness, paresthesia, pre-existing deficit, seizure, tingling, tremors, weakness, other Allergies: Coded Allergies: PENTAMIDINE ISETHIONATE (Verified Allergy, Severe, palpitations, 08/27/17) AMPICILLIN (Verified Allergy, Unknown, hives, 01/05/18) Tolerated CEftriaxone 01/02/18 KETOROLAC (Verified Allergy, Unknown, 08/03/16) MORPHINE (Verified Allergy, Unknown, 08/03/16) PHENYTOIN (Verified Allergy, Unknown, 08/03/16) Subjective 10/27 wants much stronger pain meds this am, wants benadryl iv, and very focused on it, otherwise appears comfortable Objective Objective Current Medications Medications (Trade) Dose Ordered Sig/Anthony Route PRN Reason Start Time Stop Time Status Last Admin Dose Admin Acetaminophen (Tylenol) 650 mg Q6H PRN ORAL Mild Pain/Fever 10/26/19 18:00 11/24/19 17:59 10/28/19 00:35 Albuterol Sulfate (Proventil MDI) 1 puff TIDRT INH 10/26/19 19:00 10/30/19 06:59 Azithromycin 500 mg/Dextrose 275 ml @ 275 mls/hr Q24H IV 10/27/19 05:00 11/02/19 05:59 10/28/19 05:06 Ceftriaxone Sodium 1 gm/ Dextrose 55 ml @ 110 mls/hr Q24H IVPB 10/27/19 16:00 11/01/19 15:59 10/27/19 16:55 Dextrose/Sodium Chloride 1,000 ml @ 75 mls/hr [id number] IV 10/26/19 17:30 11/24/19 12:19 10/27/19 19:55 Diphenhydramine HCl (Benadryl) 25 mg Q4H PRN ORAL Itching 10/26/19 18:00 11/24/19 17:59 10/28/19 06:09 Docusate Sodium (Colace) 100 mg THREE TIMES A DAY ORAL 10/26/19 18:00 11/24/19 12:59 10/28/19 13:29 Folic Acid (Folate) 1 mg DAILY ORAL 10/27/19 09:00 11/24/19 08:59 10/28/19 08:33 Heparin Sodium (Porcine) (Heparin 5000 units/ml) 5,000 units EVERY 12 HOURS SUBQ 10/26/19 21:00 12/09/19 08:59 10/28/19 08:32 Hydromorphone HCl (Dilaudid) 1 mg Q3H PRN IVP BREAKTHROUGH PAIN 10/27/19 11:00 11/01/19 02:29 10/28/19 08:30 Hydromorphone HCl (Dilaudid) 14 mg Q4H ORAL 10/27/19 01:00 11/03/19 00:59 10/28/19 13:30 Hydroxyurea (Hydrea) 500 mg TWICE A DAY ORAL 10/26/19 18:00 10/30/19 08:59 10/28/19 08:29 Lacosamide (Vimpat) 100 mg Q12HR ORAL 10/26/19 21:00 01/23/20 08:59 10/28/19 08:28 Methadone HCl (Methadone HCl) 60 mg Q6HR ORAL 10/26/19 18:00 11/01/19 07:03 10/28/19 11:31 Ondansetron HCl (Zofran) 4 mg Q6H PRN IVP Nausea & Vomiting 10/26/19 18:00 11/24/19 17:59 Pantoprazole (Protonix) 40 mg EVERY 12 HOURS ORAL 10/26/19 21:00 11/24/19 12:29 10/28/19 08:29 Last 24 Hour Vital Signs Date Time Temp Pulse Resp B/P (MAP) Pulse Ox O2 Delivery O2 Flow Rate FiO2 10/28/19 13:19 Nasal Cannula 10/28/19 13:19 Nasal Cannula 10/28/19 12:00 98.5 96 19 136/79 (98) 98 10/28/19 10:01 98.1 10/28/19 09:00 Nasal Cannula 6.0 Nasal Cannula 6.0 10/28/19 09:00 98.1 10/28/19 08:00 98.1 90 18 144/80 (101) 97 10/28/19 07:27 78 18 99 Nasal Cannula 4.0 36 10/28/19 07:27 99 Nasal Cannula 4.0 36 10/28/19 04:00 98.1 76 18 119/77 (91) 98 10/28/19 01:06 98.5 10/28/19 00:06 98.5 71 18 129/90 (103) 100 10/27/19 20:20 Nasal Cannula 6.0 Nasal Cannula 6.0 10/27/19 20:15 Nasal Cannula 4.0 36 10/27/19 20:14 Nasal Cannula 4.0 36 10/27/19 20:09 97.9 76 18 116/74 (88) 99 10/27/19 16:00 97.9 94 18 96 10/27/19 13:20 Nasal Cannula 4.0 36 10/27/19 13:20 Nasal Cannula 4.0 36 10/27/19 12:00 99.1 87 19 133/80 (97) 96 10/27/19 09:00 Nasal Cannula 6.0 Nasal Cannula 6.0 10/27/19 08:00 97.9 81 18 119/60 (79) 98 10/27/19 07:23 Nasal Cannula 4.0 36 10/27/19 07:23 Nasal Cannula 4.0 36 10/27/19 00:00 98.1 79 18 105/68 (80) 100 10/26/19 21:00 Nasal Cannula 6.0 Nasal Cannula 6.0 10/26/19 20:00 97.7 79 18 140/81 (100) 100 10/26/19 19:00 Nasal Cannula 10/26/19 19:00 Nasal Cannula 10/26/19 16:00 97.7 82 18 128/90 (103) 100 10/26/19 14:46 97.7 Intake and Output 10/27/19 10/28/19 19:00 07:00 Intake Total 960 ml 1770 ml Output Total 1200 ml Balance -240 ml 1770 ml Intake Oral 960 ml 800 ml IV Total 720 ml Blood Product 250 ml Output Urine Total 1200 ml # Voids 2 4 Labs Test 10/27/19 06:00 10/28/19 06:00 White Blood Count 12.1 K/UL (4.8-10.8) 15.7 K/UL (4.8-10.8) Red Blood Count 2.34 M/UL (4.70-6.10) 2.79 M/UL (4.70-6.10) Hemoglobin 7.0 G/DL (14.2-18.0) 8.3 G/DL (14.2-18.0) Hematocrit 20.3 % (42.0-52.0) 24.3 % (42.0-52.0) Mean Corpuscular Volume 87 FL (80-99) 87 FL (80-99) Mean Corpuscular Hemoglobin 29.9 PG (27.0-31.0) 29.9 PG (27.0-31.0) Mean Corpuscular Hemoglobin Concent 34.5 G/DL (32.0-36.0) 34.3 G/DL (32.0-36.0) Red Cell Distribution Width 17.2 % (11.6-14.8) 17.4 % (11.6-14.8) Platelet Count 310 K/UL (150-450) 319 K/UL (150-450) Mean Platelet Volume 7.0 FL (6.5-10.1) 6.7 FL (6.5-10.1) Neutrophils (%) (Auto) % (45.0-75.0) 37.3 % (45.0-75.0) Lymphocytes (%) (Auto) % (20.0-45.0) 49.2 % (20.0-45.0) Monocytes (%) (Auto) % (1.0-10.0) 3.8 % (1.0-10.0) Eosinophils (%) (Auto) % (0.0-3.0) 8.5 % (0.0-3.0) Basophils (%) (Auto) % (0.0-2.0) 1.2 % (0.0-2.0) Differential Total Cells Counted 100 Neutrophils % (Manual) 46 % (45-75) Lymphocytes % (Manual) 32 % (20-45) Monocytes % (Manual) 6 % (1-10) Eosinophils % (Manual) 16 % (0-3) Basophils % (Manual) 0 % (0-2) Band Neutrophils 0 % (0-8) Platelet Estimate Adequate Platelet Morphology Normal Hypochromasia 2+ Anisocytosis 2+ Sickle Cells 1+ Target Cells Occasional Sodium Level 142 MMOL/L (136-145) 142 MMOL/L (136-145) Potassium Level 4.8 MMOL/L (3.5-5.1) 5.3 MMOL/L (3.5-5.1) Chloride Level 106 MMOL/L (98-107) 106 MMOL/L (98-107) Carbon Dioxide Level 32 MMOL/L (21-32) 33 MMOL/L (21-32) Anion Gap 4 mmol/L (5-15) 3 mmol/L (5-15) Blood Urea Nitrogen 31 mg/dL (7-18) 30 mg/dL (7-18) Creatinine 0.9 MG/DL (0.55-1.30) 0.9 MG/DL (0.55-1.30) Estimat Glomerular Filtration Rate > 60 mL/min (>60) > 60 mL/min (>60) Glucose Level 137 MG/DL (74-106) 89 MG/DL (74-106) Calcium Level 9.4 MG/DL (8.5-10.1) 9.7 MG/DL (8.5-10.1) Phosphorus Level 4.1 MG/DL (2.5-4.9) Magnesium Level 1.5 MG/DL (1.8-2.4) Total Bilirubin 0.6 MG/DL (0.2-1.0) Direct Bilirubin 0.2 MG/DL (0.0-0.3) Aspartate Amino Transf (AST/SGOT) 76 U/L (15-37) Alanine Aminotransferase (ALT/SGPT) 113 U/L (12-78) Alkaline Phosphatase 239 U/L (46-116) Total Protein 6.6 G/DL (6.4-8.2) Albumin 3.5 G/DL (3.4-5.0) Height (Feet): 5 Height (Inches): 11.00 Weight (Pounds): 172 Objective PHYSICAL EXAMINATION: VITAL SIGNS: have been reviewed GENERAL: The patient is a well-developed and well nourished male, in no apparent distress. HEENT: Eyes, pupils are equal and responsive to light and accommodation. Extraocular movements are intact. NECK: Supple without lymphadenopathy. CHEST: Decreased crackles in bilateral bases. Otherwise, clear to auscultation without wheezes or rales. CARDIOVASCULAR: Regular rhythm and rate ABDOMEN: Soft, nontender, and nondistended. Positive bowel sounds. No evidence of hepatosplenomegaly. Currently, no rebound or guarding noted EXTREMITIES: Negative for clubbing, cyanosis, or edema. RECTAL/GENITAL: Refused. NEUROLOGIC: Cranial nerves II through XII are grossly intact without focal def Marco Dutton MD Oct 28, 2019 14:18
[2019-10-28] MEDS ORDERED: Heplock Flush 100 units/ml 3 ml syr INJ SCH (15:29)
--- NOTE | 2019-10-28 15:31 | NUR ---
NURSE NOTES: notified brother Rudi Bliss [phone] pt will be discharged.
[2019-10-28 16:00] VITALS: BP 140/82
[2019-10-28] MEDS: cefTRIAXone 1 GM in D5W 55 ML IVPB SCH (16:00)
[2019-10-28] MEDS ORDERED: LEVAQUIN750 MG ORAL (18:32)
--- NOTE | 2019-10-28 18:44 | NUR ---
NURSE NOTES: patient is being prepared for discharge, sign off belongings list and leaves with all his belongings including oxygen tank. Taken port-a-cath access, heparinized with 1cc [address] order, after flush 10cc NS. Placed bordered gauze on top. Given discharge packet and 1 sheet of prescription medication, given pamphlet explaining this medication effect, side-effect, mode of use and duration and frequency. patient refused to have MRSA nares collection. He also refused to sign discharge preparation checklist. Patient leaves on wheelchair accompanied by nurse to the lobby. Given a tap card good for 2 buses trip. Patient in stable condition and VS, no complaint of pain or discomfort at the time of discharge.
--- NOTE | 2019-10-28 19:10 | NUR ---
NURSE NOTES: patient discharge was delayed as pt requested surgical mask, given by nurse. Pt also requested shorted nasal cannula, but it was not found as unit doesn't carry it anymore. So pt asked for his long nasal cannula be cut, done by nurse who also took off his ID band. TOW TRUCK DRIVER Malick wheeled pt down.
--- NOTE | 2019-10-28 20:10 | NUR ---
NURSE NOTES: 30' after patient was wheeled to the lobby by EARLENE Teresa, it was found the discharge packet at the patient's room. Left message to patient, sister simone and brother Rudi Bliss to call this unit or come to hospital to cigar packer and picker prescription of atb and discharge packet. Tel number found at facesheet or given by pt when nurse wanted to contact his brother per his request. Explained necessity for pt to take atb ordered as scheduled to recover from his infection, and possible outcome of not taking it.
--- NOTE | 2019-10-28 23:52 | Pulmonology Progress Note ---
Assessment/Plan Assessment/Plan Pulmonary Progress Note HPI 43-year-old male with history of sickle cell anemia admitted complaining of 1 week of generalized body ache, cough and congestion. Noted to have low O2 saturations and tachypnea in the ED, afebrile upon arrival, improved with O2 supplementation. Patient follows with [facility], is taking hydromorphone at home. Appears to be in no distress at this time. Chronic bilateral infiltrates noted on chest x-ray. Denies chest pain, headache and dizziness. Has shortness of breath. Denies abdominal pain, nausea vomiting diarrhea. Patient is on home oxygen, up to 6L/min at home, less SOB Allergies: PENTAMIDINE ISETHIONATE (Verified Allergy, Severe, palpitations, 08/27/17) AMPICILLIN (Verified Allergy, Unknown, hives, 01/05/18) Tolerated CEftriaxone 01/02/18 KETOROLAC (Verified Allergy, Unknown, 08/03/16) MORPHINE (Verified Allergy, Unknown, 08/03/16) PHENYTOIN (Verified Allergy, Unknown, 08/03/16) Past Medical History: Sickle Cell Disease, Asthma/COPD, Hypertension, Seizure History, GERD All Other Systems: negative except mentioned in HPI Physical Exam Vital Signs Noted General Appearance: no apparent distress, alert, GCS 15, non-toxic Head: normocephalic, atraumatic Eyes: bilateral eye normal inspection, bilateral eye PERRL ENT: hearing grossly normal, normal pharynx, no angioedema, normal voice Respiratory: chest non-tender, no retraction, no accessory muscle use, no wheezing, crackles - Diffuse bilateral, speaking full sentences Cardiovascular: regular rate, rhythm, HS1, HS2, RRR, no edema, no murmur Gastrointestinal: non tender, soft, no mass Genitourinary: no CVA tenderness Musculoskeletal: back normal Neurologic: alert, motor strength/tone normal, oriented x3, sensory intact, responsive, speech normal Skin: no rash Impression: Sickle cell disease Chest syndrome Pneumonia versus suspected COVID-19 virus infection Possible SCD exacerbation Respiratory distress Asthma/COPD Hypertension Seizure History GERD Plan O2 PRN IVF IV Antibiotics - Ceftriaxone/Azithromycin Bronchodilators PPX Monitor labs Pain medications Await cultures/viral studies, if Covid19 positive add Hydroxychloroquine 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 EKG: Rate: normal Rhythm: NSR ST Segments: no acute changes Other Impression No acute ST changes Chest X-Ray: no effusion, no acute cardiopulmonary disease, other - diffuse infiltrates bilaterally, appear to be chronic changes Subjective ROS Limited/Unobtainable: No Allergies: Coded Allergies: PENTAMIDINE ISETHIONATE (Verified Allergy, Severe, palpitations, 08/27/17) AMPICILLIN (Verified Allergy, Unknown, hives, 01/05/18) Tolerated CEftriaxone 01/02/18 KETOROLAC (Verified Allergy, Unknown, 08/03/16) MORPHINE (Verified Allergy, Unknown, 08/03/16) PHENYTOIN (Verified Allergy, Unknown, 08/03/16) Objective Last 24 Hour Vital Signs Date Time Temp Pulse Resp B/P (MAP) Pulse Ox O2 Delivery O2 Flow Rate FiO2 10/28/19 17:57 98.7 10/28/19 16:00 98.7 99 18 140/82 (101) 99 10/28/19 15:09 98.5 10/28/19 13:19 Nasal Cannula 10/28/19 13:19 Nasal Cannula 10/28/19 12:00 98.5 96 19 136/79 (98) 98 10/28/19 09:00 Nasal Cannula 6.0 Nasal Cannula 6.0 10/28/19 08:00 98.1 90 18 144/80 (101) 97 10/28/19 07:27 78 18 99 Nasal Cannula 4.0 36 10/28/19 07:27 99 Nasal Cannula 4.0 36 10/28/19 04:00 98.1 76 18 119/77 (91) 98 10/28/19 01:06 98.5 10/28/19 00:06 98.5 71 18 129/90 (103) 100 Intake and Output 10/27/19 10/28/19 19:00 07:00 Intake Total 960 ml 1770 ml Output Total 1200 ml Balance -240 ml 1770 ml Intake Oral 960 ml 800 ml IV Total 720 ml Blood Product 250 ml Output Urine Total 1200 ml # Voids 2 4 Laboratory Tests 10/28/19 06:00: White Blood Count 15.7H, Red Blood Count 2.79L, Hemoglobin 8.3L, Hematocrit 24.3L, Mean Corpuscular Volume 87, Mean Corpuscular Hemoglobin 29.9, Mean Corpuscular Hemoglobin Concent 34.3, Red Cell Distribution Width 17.4H, Platelet Count 319, Mean Platelet Volume 6.7, Neutrophils (%) (Auto) 37.3L, Lymphocytes (%) (Auto) 49.2H, Monocytes (%) (Auto) 3.8, Eosinophils (%) (Auto) 8.5H, Basophils (%) (Auto) 1.2, Sodium Level 142, Potassium Level 5.3H, Chloride Level 106, Carbon Dioxide Level 33H, Anion Gap 3L, Blood Urea Nitrogen 30H, Creatinine 0.9, Estimat Glomerular Filtration Rate > 60, Glucose Level 89, Calcium Level 9.7 Artie Finnegan MD Oct 28, 2019 23:52
--- NOTE | 2019-10-29 10:45 | Consultation ---
DATE OF CONSULTATION: 10/25/2019 INFECTIOUS DISEASES CONSULTATION CONSULTING PHYSICIAN: Alex Nash MD. PRIMARY ATTENDING PHYSICIAN: Griffin Recinos MD. REASON FOR CONSULTATION: Leukocytosis, rule out COVID-19. HISTORY OF PRESENT ILLNESS: The patient is a 43-year-old male admitted yesterday from home complaining of cough, congestion, generalized body pain for one week. The patient had decrease in O2 saturation, increase in respiratory rate in the ER, O2 saturation was 70% at the time of admission and respiratory rate 25 at the time of admission. No fever. PAST MEDICAL HISTORY: Significant for sickle cell disease, hypertension, asthma, COPD, seizure disorder, bilateral avascular necrosis of femoral head, history of cholecystectomy, history of foot surgery. ALLERGIES: Ampicillin, ketorolac, morphine, pentamidine, and phenytoin. MEDICATIONS: Ceftriaxone, heparin, folic acid, hydroxyurea, lacosamide, methadone, albuterol hydromorphone, Zithromax, diphenhydramine, Tylenol, Zofran, hydromorphone, get a dose of ceftriaxone in the ER. SOCIAL HISTORY: Ex-smoker, single. Denies alcohol, drug abuse, but is on methadone. REVIEW OF SYSTEMS: No fever. No chills. Slight coughing that is productive. He has generalized body pain. No problem passing urine. PHYSICAL EXAMINATION: VITAL SIGNS: Temperature 98, pulse 74, blood pressure 120/85. HEAD AND NECK: Pale conjunctiva. External deviation of right eye. HEART: Normal rate. Has a Port-A-Cath in the right side of the chest. LUNGS: Clear. ABDOMEN: Soft and nontender. EXTREMITIES: Edema of both legs. LABORATORY AND DIAGNOSTIC DATA: WBC 19.2, hemoglobin 7.3, hematocrit 23, platelet is 230. Sodium 142, potassium 5.2, chloride 111, bicarb 29, BUN 30, creatinine 1.1. AST 64, ALT 89, alkaline phosphatase 210, albumin is 3.6. Influenza A and B are negative. Chest x-ray showed bilateral diffuse right greater than left mostly interstitial disease, unchanged from previous admission 07/20/2019. Findings are mostly chronic, although, superimposed acute infiltration is also possible. IMPRESSION: Leukocytosis with hypoxemia, we will try to rule out COVID outside , sickle cell crisis, anemia, has history of COPD, asthma, hypertension, avascular necrosis of femoral head. RECOMMENDATION: We will continue with azithromycin and ceftriaxone. We will follow up COVID-19 tests. We will follow up blood culture At the end of my exam, I thank Dr. Recinos for involving me in the care of this patient. Alex Nash M.D. DR: Aditya JOB#: [id number] CC: LELAND
--- NOTE | 2019-10-29 15:09 | Discharge Summary ---
Discharge Summary Discharge Summary _ DATE OF ADMISSION: 10/24/2019 DATE OF DISCHARGE: 10/28/2019 DISCHARGED BY: Dr. Recinos REASON FOR ADMISSION: 43 years old male with past medical history of sickle cell disease , presented with complaint of generalized body aches, cough and congestion for 1 week. Patient was tachypneic with respiratory rate 25 and hypoxic. Patient required supplemental oxygen and after being on oxygen for 30 minutes of oxygen, pulse oximetry improved to 100%. Chest x-ray demonstrated bilateral diffuse, right greater than left , most interstitial disease . Laboratory work-up revealed WBC 19.2, hemoglobin 7.3 ,hematocrit 23. Potassium 5.2. BUN 30, creatinine 1.1. AST 64, ALT 89. Pro BNP 355, troponin 0.012. Lactic acid 0.6. Patient was tested for COVID-19. Patient subsequently admitted to isolation room for further management. CONSULTANTS: pulmonary Dr. Finnegan ID specialist Dr. Alex Nash pain specialist Dr. Perera digital technician Dr. Hutchins bomb squad officer/oncologist Dr. Dutton HOSPITAL COURSE: Patient admitted and initially was on droplet and contact isolation. Patient started on aggressive IV hydration. Supplemental oxygen provided and titrated to keep pulse oximetry above 92%. Hydrea with folic acid continued. Pain management was addressed as per pain specialist recommendation. Blood cultures were negative. Influenza screen was negative. COVID-19 came back negative. Isolation stopped. WBC trending down. No fevers. Patient was empirically treated for pneumonia. Patient was discharged on Levaquin for 3 additional day to complete the course. Hyperkalemia was treated. Hydration continued. Renal parameters and electrolytes were closely monitored ,electrolytes corrected as needed, and nephrotoxins were avoided. Hemoglobin and hematocrit were closely monitored with goal to keep hemoglobin above 7. Patient undergone transfusion of 1 unit of packed red blood cells for hemoglobin 7 and hematocrit 20.3. Prior to discharge hemoglobin 8.3, hematocrit 24.3. Seizure precaution maintained. Vimpat continued. DVT and GI prophylaxis provided. Bowel regimen instituted. Patient clinically stabilized and was ready for discharge FINAL DIAGNOSES: Sickle cell disease with crisis Chest syndrome Pneumonia Suspected COVID-19 infection - ruled out Hyperkalemia Dehydration Elevated liver enzymes Asthma/COPD Bilateral femurs head avascular necrosis Intractable pain Hypertension Seizure disorder GERD DISCHARGE MEDICATIONS: See Medication Reconciliation list. DISCHARGE INSTRUCTIONS: Patient was discharged home. Follow-up with primary care provider in 1 to 2 weeks. I have been assigned to dictate discharge summary for this account. I was not involved in the patient's management. Mikayla Camara NP Oct 29, 2019 15:09
== END 2019-10-28 19:40 | disposition home or self-care (01) | DRG 811 ==
LOC: EMR 15:00 → EDBEDREQ 15:07 → 2W 16:13 → EDBEDREQ 10-25 01:02 → 2E 10-25 20:32 → 4E 10-26 18:03
PROC: 30233N1 Transfusion of Nonautologous Red Blood Cells into Peripheral Vein, Percutaneous Approach (ICD-10-PCS; principal; 2019-10-28)
DX: D57.01 Hb-SS disease with acute chest syndrome (principal); J18.9 Pneumonia, unspecified organism; J44.0 Chronic obstructive pulmonary disease with (acute) lower respiratory infection; M87.852 Other osteonecrosis, left femur; M87.851 Other osteonecrosis, right femur; E87.5 Hyperkalemia; I27.20 Pulmonary hypertension, unspecified; Z88.6 Allergy status to analgesic agent; Z88.1 Allergy status to other antibiotic agents; Z88.8 Allergy status to other drugs, medicaments and biological substances; E86.0 Dehydration; R79.89 Other specified abnormal findings of blood chemistry; G40.909 Epilepsy, unspecified, not intractable, without status epilepticus; R09.02 Hypoxemia; Z87.891 Personal history of nicotine dependence; K21.9 Gastro-esophageal reflux disease without esophagitis; J44.9 Chronic obstructive pulmonary disease, unspecified; G89.29 Other chronic pain
CPT/HCPCS: 36415; 71045; 80048; 80053; 80076; 81025; 82550; 82553; 83605; 83735; 83880; 84100; 84484; 85007; 85025; 85044; 85610; 85730; 86710; 86850; 86900; 86901; 86920; 87040; 87635; 93005; 94640; 96361; 96365; 96375; 99285; J7030

== ENCOUNTER 2019-11-16 14:45 | Emergency (ER) | payer MEDICARE, MEDICAID ==
[~2019-11-16] VITALS: Ht 180.3 cm; Wt 63.0 kg
[~2019-11-16 14:45] MED LIST changes: +LEVAQUIN750 MG ORAL
--- NOTE | 2019-11-16 15:07 | NUR ---
ED Nurse Note: Pt. c/o cough and chills for 3 days, no fever in ER. Pt. is oxigen dependant at home, also c/o chest pain. EKG is done.
[2019-11-16 15:45] VITALS: BP 99/67
[2019-11-16] MEDS ORDERED: HYDROmorphone 1 MG in NS 55 ML IV ONE (15:45)
--- NOTE | 2019-11-16 15:45 | NUR ---
ED Nurse Note: ERPA is at the bedside
[2019-11-16 15:57] LABS: HEMATOCRIT 22.1 % (42.0-52.0); HEMOGLOBIN 7.2 G/DL (14.2-18.0); MEAN CORPUSCULAR VOLUME 88 FL (80-99); PLATELET COUNT 297 K/UL (150-450); RED BLOOD COUNT 2.51 M/UL (4.70-6.10); RED CELL DISTRIBUTION WIDTH 16.7 % (11.6-14.8); WHITE BLOOD COUNT 16.9 K/UL (4.8-10.8)
--- NOTE | 2019-11-16 15:59 | NUR ---
ED Nurse Note: Xray taken
--- NOTE | 2019-11-16 16:05 | NUR ---
ER DISCHARGE NOTE: AMA. pt is aox4, on room air, with stable vital signs. pt was given risk of AMA. Pt was able to verbalize understanding, pt id band and port access dressing was changed without complications. pt is able to ambulate with steady gait. pt took all belongings.
[2019-11-16 16:08] LABS: ANION GAP 4 mmol/L (5-15); BLOOD UREA NITROGEN 39 mg/dL (7-18); CALCIUM 9.9 MG/DL (8.5-10.1); CARBON DIOXIDE 31 MMOL/L (21-32); CHLORIDE 109 MMOL/L (98-107); CREATININE 1.2 MG/DL (0.55-1.30); POTASSIUM 5.2 MMOL/L (3.5-5.1); SODIUM 144 MMOL/L (136-145)
[2019-11-16 16:13] LABS: ALANINE AMINOTRANSFERASE 111 U/L (12-78); ALBUMIN 3.8 G/DL (3.4-5.0); ALBUMIN/GLOBULIN RATIO 1.2 (1.0-2.7); ALKALINE PHOSPHATASE 249 U/L (46-116); ASPARTATE AMINO TRANSFERASE 72 U/L (15-37); BILIRUBIN,TOTAL 0.9 MG/DL (0.2-1.0)
--- NOTE | 2019-11-16 16:29 | Diagnostic Imaging Report ---
EXAM: XR Chest, 1 View CLINICAL HISTORY: PAIN TECHNIQUE: Frontal view of the chest. COMPARISON: Chest radiograph on 10/24/2019 FINDINGS: Hardware: Right-sided Port-A-Cath terminates in the region of the SVC. Lungs/pleura: Patchy opacities in the right lung and left mid and lower lung, concerning for an infectious/inflammatory process. Probable background of chronic interstitial lung changes. No pleural effusion or pneumothorax. Heart/mediastinum: Normal. No cardiomegaly. Soft tissues: Unremarkable. Bones: No acute fracture. Curvature of the spine. Upper abdomen: Normal. IMPRESSION: Patchy opacities in the right lung and left mid and lower lung, concerning for an infectious/inflammatory process. Probable background of chronic interstitial lung changes.
--- NOTE | 2019-11-16 18:53 | Emergency Room Report ---
History of Present Illness General Chief Complaint: Chest Pain Source: Patient Present Illness HPI 43-year-old male with history of sickle cell disease, AAYUSH, and COPD who was recently hospitalized at [facility] for similar symptoms of chest pain and cough, here complaining of 4 days of cough and congestion as well as chest pain. Patient has O2 sat of 80% on 2 L of oxygen upon arrival however after giving 6 L a change 200%. Patient was seen at the beginning of October [address] [facility], got admitted, and was discharged on October 28 on ceftriaxone and azithromycin. Patient had multiple consults by president and cmo, infectious disease , and primary care. Patient takes Dilaudid at home for sickle cell. Patient immediately asked for combination of Dilaudid and Benadryl IV as he says that the medication he is taking at home is not helping him. When told that Benadryl will not be given however Dilaudid will be given in 1 dose patient develops drug-seeking behavior and wants to talk to management and get his Benadryl. Patient decides to sign AGAINST MEDICAL ADVICE and leave as he is not receiving his Benadryl with his Dilaudid. There was no difference between the lab results and chest x-ray results compared to patient labs and imaging discharged that was 2 weeks ago. Patient also tested negative for COVID Allergies: Coded Allergies: PENTAMIDINE ISETHIONATE (Verified Allergy, Severe, palpitations, 08/27/17) AMPICILLIN (Verified Allergy, Unknown, hives, 01/05/18) Tolerated CEftriaxone 01/02/18 KETOROLAC (Verified Allergy, Unknown, 08/03/16) MORPHINE (Verified Allergy, Unknown, 08/03/16) PHENYTOIN (Verified Allergy, Unknown, 08/03/16) COVID-19 Screening Contact w/high risk pt: No Recent Travel to affected area: No Experienced COVID-19 symptoms?: Yes COVID-19 symptoms experienced: Shortness of Breath, Cough Patient History Past Medical History: see triage record Past Surgical History: none Pertinent Family History: none Immunizations: UTD Reviewed Nursing Documentation: PMH: Agreed; PSxH: Agreed Nursing Documentation-PM Past Medical History: No History, Except For Hx Hypertension: Yes Hx Asthma: Yes Hx COPD: Yes Hx Cancer: No Hx Gastrointestinal Problems: Yes Hx Neurological Problems: Yes Hx Seizures: Yes Review of Systems All Other Systems: negative except mentioned in HPI Physical Exam Vital Signs Date Time Temp Pulse Resp B/P (MAP) Pulse Ox O2 Delivery O2 Flow Rate FiO2 11/16/19 14:57 98.4 115 24 97/60 (72) 100 Nasal Cannula 6.0 Sp02 EP Interpretation: reviewed, normal General Appearance: no apparent distress, alert, GCS 15, non-toxic Head: normocephalic, atraumatic Eyes: bilateral eye normal inspection, bilateral eye PERRL ENT: hearing grossly normal, normal pharynx, no angioedema, normal voice Neck: full range of motion, supple/symm/no masses Respiratory: chest non-tender, lungs clear, normal breath sounds, no rhonchi, no respiratory distress, no retraction, speaking full sentences Cardiovascular #1: regular rate, rhythm, no edema Gastrointestinal: normal bowel sounds, non tender, soft, non-distended, no guarding, no rebound Rectal: deferred Genitourinary: no CVA tenderness Musculoskeletal: back normal Neurologic: alert, motor strength/tone normal, oriented x3, sensory intact, responsive, speech normal Psychiatric: judgement/insight normal, memory normal, mood/affect normal, no suicidal/homicidal ideation Skin: no rash Lymphatic: no adenopathy Medical Decision Making PA Attestation All diagnoses and treatment plans were reviewed and discussed with my supervising physician Dr. Burton Diagnostic Impression: Primary Impression: Left against medical advice Additional Impression: Sickle cell crisis acute chest syndrome ER Course 43-year-old male with history of sickle cell disease, AAYUSH, and COPD who was recently hospitalized at [facility] for similar symptoms of chest pain and cough, here complaining of 4 days of cough and congestion as well as chest pain. Patient has O2 sat of 80% on 2 L of oxygen upon arrival however after giving 6 L a change 200%. Patient was seen at the beginning of October 2019 at [place] [facility], got admitted, and was discharged on October 28 on ceftriaxone and azithromycin. Patient had multiple consults by president and cmo, infectious disease , and primary care. Patient takes Dilaudid at home for sickle cell. Patient immediately asked for combination of Dilaudid and Benadryl IV as he says that the medication he is taking at home is not helping him. When told that Benadryl will not be given however Dilaudid will be given in 1 dose patient develops drug-seeking behavior and wants to talk to management and get his Benadryl. Patient decides to sign AGAINST MEDICAL ADVICE and leave as he is not receiving his Benadryl with his Dilaudid. There was no difference between the lab results and chest x-ray results compared to patient labs and imaging discharged that was 2 weeks ago. Patient also tested negative for COVID Ddx considered but are not limited to: NM, Angina, COPD, GERD, sickle cell crisis, pulmonary edema, pleural effusion, pneumonia Vital signs: are WNL, pt. is afebrile H&PE are most consistent with sickle cell chest pain ORDERS: Chest pain work-up ED INTERVENTIONS: Dilaudid Patient signed AGAINST MEDICAL ADVICE did not want to be admitted unless he received multiple doses of Dilaudid and Benadryl. Patient understands the risks of leaving. Patient has full judgment upon signing out AGAINST MEDICAL ADVICE forms EKG Diagnostic Results Rate: normal Rhythm: NSR ST Segments: no acute changes Other Impression No acute ST changes Chest X-Ray Diagnostic Results Chest X-Ray Diagnostic Results : Chest X-Ray Ordered: Yes # of Views/Limited/Complete: 1 View Indication: Chest Pain EP Interpretation: Yes PA Xray: Interpretation reviewed, by supervising MD, and agrees with findings. Interpretation: no effusion, no pneumothorax Impression: No acute disease Electronically Signed by: Yemi WANG Scribyamila Text IMPRESSION: Patchy opacities in the right lung and left mid and lower lung, concerning for an infectious/inflammatory process. Probable background of chronic interstitial lung changes. No changes compared to the most recent chest x-ray Last Vital Signs Date Time Temp Pulse Resp B/P (MAP) Pulse Ox O2 Delivery O2 Flow Rate FiO2 11/16/19 15:49 112 20 Nasal Cannula 6.0 11/16/19 15:45 98.4 99/67 100 Disposition: AGAINST MEDICAL ADVICE Condition: Stable Referrals: Hanna Mckenna MD (PCP) Patient Instructions: Nonspecific Chest Pain Yemi Solano November 16, 2019 18:53
== END 2019-11-16 16:05 | disposition left against medical advice (07) ==
LOC: EMR 15:00
DX: D57.01 Hb-SS disease with acute chest syndrome (principal); I10 Essential (primary) hypertension; J44.9 Chronic obstructive pulmonary disease, unspecified; G40.909 Epilepsy, unspecified, not intractable, without status epilepticus; Z88.0 Allergy status to penicillin; Z88.6 Allergy status to analgesic agent
CPT/HCPCS: 36415; 71045; 80053; 83605; 83880; 84484; 85007; 85025; 85044; 87040; 93005; 99284

== ENCOUNTER 2019-12-07 18:12 | Inpatient (IN) | payer MEDICARE, MEDICAID ==
[~2019-12-07] VITALS: Ht 180.3 cm; Wt 64.9 kg
--- NOTE | 2019-12-07 18:33 | Emergency Room Report ---
History of Present Illness General Chief Complaint: Dyspnea/Respdistress Source: Patient, Medical Record Present Illness HPI Patient is a 43-year-old male who presents after increased cough and difficulty with breathing. Reports having associated diarrhea. Reports taking his medications for sickle cell. Nonproductive cough for several days. Prior history of pulmonary hypertension. Has indwelling Port-A-Cath. Does not know his prior blood counts. States he is followed by Dr. Ocampo.Ports taking his methadone this morning. Allergies: Coded Allergies: PENTAMIDINE ISETHIONATE (Verified Allergy, Severe, palpitations, 08/27/17) AMPICILLIN (Verified Allergy, Unknown, hives, 01/05/18) Tolerated CEftriaxone 01/02/18 KETOROLAC (Verified Allergy, Unknown, 08/03/16) MORPHINE (Verified Allergy, Unknown, 08/03/16) PHENYTOIN (Verified Allergy, Unknown, 08/03/16) COVID-19 Screening Contact w/high risk pt: No Recent Travel to affected area: No Experienced COVID-19 symptoms?: Yes COVID-19 symptoms experienced: Shortness of Breath, Cough COVID-19 Testing performed PROOF COIN COLLECTOR: No Patient History Past Medical History: see triage record, seizures Reviewed Nursing Documentation: PMH: Agreed; PSxH: Agreed Nursing Documentation-PMH Past Medical History: No History, Except For Hx Hypertension: Yes Hx Asthma: Yes Hx COPD: Yes Hx Cancer: No Hx Gastrointestinal Problems: Yes Hx Neurological Problems: Yes Hx Seizures: Yes Review of Systems All Other Systems: negative except mentioned in HPI Physical Exam Vital Signs Date Time Temp Pulse Resp B/P (MAP) Pulse Ox O2 Delivery O2 Flow Rate FiO2 12/07/19 18:24 99.3 110 18 106/67 (80) 100 Nasal Cannula 6.0 Sp02 EP Interpretation: reviewed, normal General Appearance: normal inspection, alert, GCS 15, Chronically Ill Head: atraumatic Eyes: 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 ENT: normal ENT inspection, hearing grossly normal, normal voice Neck: normal inspection, full range of motion, supple, no bony tend Respiratory: normal inspection, lungs clear, normal breath sounds, no respiratory distress, no retraction, no wheezing Cardiovascular #1: regular rate, rhythm, no edema Gastrointestinal: normal inspection, normal bowel sounds, non tender, soft, no guarding, no hernia Genitourinary: no CVA tenderness Musculoskeletal: normal inspection, back normal Neurologic: alert, motor weakness - chronic leg weakness, responsive, speech normal, normal inspection Psychiatric: normal inspection, judgement/insight normal, mood/affect normal Medical Decision Making Diagnostic Impression: Primary Impression: Sickle cell disease Additional Impressions: Sickle cell crisis Pneumonia ER Course Patient presented for shortness of breath. Differential diagnosis include was not limited to pneumonia, acute chest syndrome, anemia, coronavirus infection among others. Because of complexity of patient's case laboratory tests and imaging studies were ordered. Patient was noted to have prior history of sickle cell disease. Laboratory testing showed significant anemia. Chest x- ray showed some hazy infiltrate. White blood count was noted to be negative. Patient was discussed with Dr. Corona Calvillo who agreed to admit the patient due to panel physician. Labs Test 12/07/19 18:37 White Blood Count 16.4 K/UL (4.8-10.8) Red Blood Count 2.29 M/UL (4.70-6.10) Hemoglobin 6.6 G/DL (14.2-18.0) Hematocrit 21.6 % (42.0-52.0) Mean Corpuscular Volume 94 FL (80-99) Mean Corpuscular Hemoglobin 28.9 PG (27.0-31.0) Mean Corpuscular Hemoglobin Concent 30.6 G/DL (32.0-36.0) Red Cell Distribution Width 17.0 % (11.6-14.8) Platelet Count 371 K/UL (150-450) Mean Platelet Volume 7.7 FL (6.5-10.1) Neutrophils (%) (Auto) % (45.0-75.0) Lymphocytes (%) (Auto) % (20.0-45.0) Monocytes (%) (Auto) % (1.0-10.0) Eosinophils (%) (Auto) % (0.0-3.0) Basophils (%) (Auto) % (0.0-2.0) Differential Total Cells Counted 100 Neutrophils % (Manual) 70 % (45-75) Lymphocytes % (Manual) 17 % (20-45) Monocytes % (Manual) 6 % (1-10) Eosinophils % (Manual) 7 % (0-3) Basophils % (Manual) 0 % (0-2) Band Neutrophils 0 % (0-8) Nucleated Red Blood Cells 2 /100 WBC Platelet Estimate Adequate Platelet Morphology See comment Giant Platelets Occasional Hypochromasia 2+ Anisocytosis 2+ Sodium Level 144 MMOL/L (136-145) Potassium Level 5.1 MMOL/L (3.5-5.1) Chloride Level 108 MMOL/L (98-107) Carbon Dioxide Level 35 MMOL/L (21-32) Anion Gap 1 mmol/L (5-15) Blood Urea Nitrogen 27 mg/dL (7-18) Creatinine 1.1 MG/DL (0.55-1.30) Estimat Glomerular Filtration Rate > 60 mL/min (>60) Glucose Level 115 MG/DL (74-106) Calcium Level 9.7 MG/DL (8.5-10.1) Total Bilirubin 0.5 MG/DL (0.2-1.0) Aspartate Amino Transf (AST/SGOT) 60 U/L (15-37) Alanine Aminotransferase (ALT/SGPT) 109 U/L (12-78) Alkaline Phosphatase 215 U/L (46-116) Troponin I 0.008 ng/mL (0.000-0.056) Pro-B-Type Natriuretic Peptide 351 pg/mL (0-125) Total Protein 6.4 G/DL (6.4-8.2) Albumin 3.4 G/DL (3.4-5.0) Globulin 3.0 g/dL Albumin/Globulin Ratio 1.1 (1.0-2.7) Thyroid Stimulating Hormone (TSH) 5.431 uiU/mL (0.358-3.740) Last Vital Signs Date Time Temp Pulse Resp B/P (MAP) Pulse Ox O2 Delivery O2 Flow Rate FiO2 12/07/19 18:24 99.3 110 18 106/67 (80) 100 Nasal Cannula 6.0 Status: unchanged Disposition: ADMITTED INPATIENT Condition: Stable Jose Antonio Davies MD December 07, 2019 18:33
[2019-12-07] MEDS ORDERED: HYDROmorphone 1 MG, DiphenhydrAMINE 25 MG in NS 55 ML IV ONE (18:45)
[2019-12-07 18:52] VITALS: BP 106/67
[2019-12-07 19:11] LABS: HEMATOCRIT 21.6 % (42.0-52.0); MEAN CORPUSCULAR VOLUME 94 FL (80-99); PLATELET COUNT 371 K/UL (150-450); RED BLOOD COUNT 2.29 M/UL (4.70-6.10); WHITE BLOOD COUNT 16.4 K/UL (4.8-10.8)
[2019-12-07 19:12] LABS: HEMOGLOBIN 6.6 G/DL (14.2-18.0)
[2019-12-07 19:19] LABS: ANION GAP 1 mmol/L (5-15); BLOOD UREA NITROGEN 27 mg/dL (7-18); CALCIUM 9.7 MG/DL (8.5-10.1); CARBON DIOXIDE 35 MMOL/L (21-32); CHLORIDE 108 MMOL/L (98-107); CREATININE 1.1 MG/DL (0.55-1.30); POTASSIUM 5.1 MMOL/L (3.5-5.1); SODIUM 144 MMOL/L (136-145)
[2019-12-07 19:31] LABS: ALANINE AMINOTRANSFERASE 109 U/L (12-78); ALBUMIN 3.4 G/DL (3.4-5.0); ALBUMIN/GLOBULIN RATIO 1.1 (1.0-2.7); ALKALINE PHOSPHATASE 215 U/L (46-116); ASPARTATE AMINO TRANSFERASE 60 U/L (15-37); BILIRUBIN,TOTAL 0.5 MG/DL (0.2-1.0)
[2019-12-07 20:08] VITALS: BP 107/72
[2019-12-07] MEDS ORDERED: Azithromycin 500 MG in D5W 275 ML IVPB ONE (20:45)
--- NOTE | 2019-12-07 20:49 | Diagnostic Imaging Report ---
EXAM: XR Chest, 1 View CLINICAL HISTORY: SOB TECHNIQUE: Frontal view of the chest. COMPARISON: 11/16/19 FINDINGS: Study limited to single AP portable chest radiograph. No change in position and a right-sided Port-A-Cath catheter. Negative for significant cardiac enlargement. Again noted are bilateral reticulonodular interstitial changes and linear opacities throughout the left lung base likely reflecting scarring superimposed on chronic interstitial lung disease. Negative for pneumothorax or pleural fluid collections.
[2019-12-07 21:28] VITALS: BP 101/69
[2019-12-07 21:40] LABS: APPEARANCE,URINE CLEAR; BILIRUBIN, URINE NEGATIVE (NEGATIVE); COLOR,URINE PALE YELLOW; GLUCOSE, URINE (UA) NEGATIVE (NEGATIVE); KETONES,URINE NEGATIVE (NEGATIVE); LEUKOCYTE ESTERASE ,URINE 1+ (NEGATIVE); NITRITE,URINE NEGATIVE (NEGATIVE); PH,URINE 6 (4.5-8.0); PROTEIN,URINE 2+ (NEGATIVE); UROBILINOGEN,URINE NORMAL MG/DL (0.0-1.0)
[2019-12-07 23:24] VITALS: BP 111/78
[2019-12-08] MEDS: DiphenhydrAMINE 50mg/ml Inj IVP PRN ×5 (02:30→22:03)
[2019-12-08 08:00] VITALS: BP 106/68
[2019-12-08] MEDS: Lacosamide 50mg tablet ORAL SCH ×2 (08:37→20:30)
[2019-12-08] MEDS: Hydroxyurea 500mg cap ORAL SCH ×2 (08:37→17:44)
[2019-12-08 08:52] LABS: ALANINE AMINOTRANSFERASE 97 U/L (12-78); ALBUMIN 3.3 G/DL (3.4-5.0); ALBUMIN/GLOBULIN RATIO 1.2 (1.0-2.7); ALKALINE PHOSPHATASE 190 U/L (46-116); ANION GAP 2 mmol/L (5-15); ASPARTATE AMINO TRANSFERASE 55 U/L (15-37); BILIRUBIN,TOTAL 0.5 MG/DL (0.2-1.0); BLOOD UREA NITROGEN 23 mg/dL (7-18); CALCIUM 9.2 MG/DL (8.5-10.1); CARBON DIOXIDE 34 MMOL/L (21-32); CHLORIDE 108 MMOL/L (98-107); CREATININE 0.9 MG/DL (0.55-1.30); POTASSIUM 5.2 MMOL/L (3.5-5.1); SODIUM 144 MMOL/L (136-145)
[2019-12-08 09:16] LABS: HEMATOCRIT 19.1 % (42.0-52.0); MEAN CORPUSCULAR VOLUME 88 FL (80-99); PLATELET COUNT 363 K/UL (150-450); RED BLOOD COUNT 2.18 M/UL (4.70-6.10); RED CELL DISTRIBUTION WIDTH 14.9 % (11.6-14.8); WHITE BLOOD COUNT 14.3 K/UL (4.8-10.8)
--- NOTE | 2019-12-08 10:32 | Consultation ---
History of Present Illness General Chief Complaint: Dyspnea/Respdistress Present Illness Allergies: Coded Allergies: PENTAMIDINE ISETHIONATE (Verified Allergy, Severe, palpitations, 08/27/17) AMPICILLIN (Verified Allergy, Unknown, hives, 01/05/18) Tolerated CEftriaxone 01/02/18 KETOROLAC (Verified Allergy, Unknown, 08/03/16) MORPHINE (Verified Allergy, Unknown, 08/03/16) PHENYTOIN (Verified Allergy, Unknown, 08/03/16) Medication History Scheduled Folic Acid* (Folic Acid*), 1 MG ORAL DAILY Hydromorphone HCl (Dilaudid), 14 MG ORAL EVERY 4 HOURS, (Reported) Hydroxyurea* (HYDREA 500mg*), 500 MG PO BID Lacosamide (Vimpat), 100 MG PO BID, (Reported) Levofloxacin* (Levaquin*), 750 MG ORAL DAILY, (Reported) Methadone Hcl* (Methadone*), 60 MG PO Q6HR, (Reported) Scheduled PRN Diphenhydramine HCl (Benadryl), 50 MG PO Q4HR PRN for Itching, (Reported) Durable Medical Equipment Crutch (Crutch), [facility]ACH [facility], (Reported), (DME) Crutch (Crutch), [facility], (Reported), (DME) Patient History Healthcare decision maker Resuscitation status Advanced Directive on File Physical Exam Last 24 Hour Vital Signs Date Time Temp Pulse Resp B/P (MAP) Pulse Ox O2 Delivery O2 Flow Rate FiO2 12/08/19 04:00 84 12/08/19 00:13 Nasal Cannula 4.0 12/08/19 00:00 85 12/07/19 23:24 99.0 89 111/78 (89) 100 12/07/19 23:04 99.3 93 16 101/69 100 Nasal Cannula 4.0 12/07/19 21:28 99.3 93 16 101/69 100 Nasal Cannula 4.0 12/07/19 20:08 99.3 89 17 107/72 100 Nasal Cannula 4.0 12/07/19 19:51 99.3 12/07/19 18:52 99.3 103 18 106/67 100 Nasal Cannula 6.0 12/07/19 18:51 110 18 Nasal Cannula 6.0 12/07/19 18:24 99.3 110 18 106/67 (80) 100 Nasal Cannula 6.0 Intake and Output 12/07/19 12/08/19 19:00 07:00 Intake Total 736 ml Output Total 300 ml Balance 436 ml Intake Oral 236 ml IV Total 500 ml Output Urine Total 300 ml # Bowel Movements 2 Laboratory Tests Test 12/07/19 18:37 12/07/19 21:10 12/08/19 07:00 White Blood Count 16.4 K/UL (4.8-10.8) H Pending Red Blood Count 2.29 M/UL (4.70-6.10) L Pending Hemoglobin 6.6 G/DL (14.2-18.0) *L Pending Hematocrit 21.6 % (42.0-52.0) L Pending Mean Corpuscular Volume 94 FL (80-99) Pending Mean Corpuscular Hemoglobin 28.9 PG (27.0-31.0) Pending Mean Corpuscular Hemoglobin Concent 30.6 G/DL (32.0-36.0) L Pending Red Cell Distribution Width 17.0 % (11.6-14.8) H Pending Platelet Count 371 K/UL (150-450) Pending Mean Platelet Volume 7.7 FL (6.5-10.1) Pending Neutrophils (%) (Auto) % (45.0-75.0) Pending Lymphocytes (%) (Auto) % (20.0-45.0) Pending Monocytes (%) (Auto) % (1.0-10.0) Pending Eosinophils (%) (Auto) % (0.0-3.0) Pending Basophils (%) (Auto) % (0.0-2.0) Pending Differential Total Cells Counted 100 Neutrophils % (Manual) 70 % (45-75) Lymphocytes % (Manual) 17 % (20-45) L Monocytes % (Manual) 6 % (1-10) Eosinophils % (Manual) 7 % (0-3) H Basophils % (Manual) 0 % (0-2) Band Neutrophils 0 % (0-8) Nucleated Red Blood Cells 2 /100 WBC Platelet Estimate Adequate Platelet Morphology See comment Giant Platelets Occasional Hypochromasia 2+ Anisocytosis 2+ Reticulocyte Count 1.2 % (0.5-2.0) Sodium Level 144 MMOL/L (136-145) 144 MMOL/L (136-145) Potassium Level 5.1 MMOL/L (3.5-5.1) 5.2 MMOL/L (3.5-5.1) H Chloride Level 108 MMOL/L (98-107) H 108 MMOL/L (98-107) H Carbon Dioxide Level 35 MMOL/L (21-32) H 34 MMOL/L (21-32) H Anion Gap 1 mmol/L (5-15) L 2 mmol/L (5-15) L Blood Urea Nitrogen 27 mg/dL (7-18) H 23 mg/dL (7-18) H Creatinine 1.1 MG/DL (0.55-1.30) 0.9 MG/DL (0.55-1.30) Estimat Glomerular Filtration Rate > 60 mL/min (>60) > 60 mL/min (>60) Glucose Level 115 MG/DL (74-106) H 128 MG/DL (74-106) H Calcium Level 9.7 MG/DL (8.5-10.1) 9.2 MG/DL (8.5-10.1) Total Bilirubin 0.5 MG/DL (0.2-1.0) 0.5 MG/DL (0.2-1.0) Aspartate Amino Transf (AST/SGOT) 60 U/L (15-37) H 55 U/L (15-37) H Alanine Aminotransferase (ALT/SGPT) 109 U/L (12-78) H 97 U/L (12-78) H Alkaline Phosphatase 215 U/L (46-116) H 190 U/L (46-116) H Troponin I 0.008 ng/mL (0.000-0.056) Pro-B-Type Natriuretic Peptide 351 pg/mL (0-125) H Total Protein 6.4 G/DL (6.4-8.2) 6.1 G/DL (6.4-8.2) L Albumin 3.4 G/DL (3.4-5.0) 3.3 G/DL (3.4-5.0) L Globulin 3.0 g/dL 2.8 g/dL Albumin/Globulin Ratio 1.1 (1.0-2.7) 1.2 (1.0-2.7) Thyroid Stimulating Hormone (TSH) 5.431 uiU/mL (0.358-3.740) Urine Color Pale yellow Urine Appearance Clear Urine pH 6 (4.5-8.0) Urine Specific [place] 1.005 (1.005-1.035) Urine Protein 2+ (NEGATIVE) H Urine Glucose (UA) Negative (NEGATIVE) Urine Ketones Negative (NEGATIVE) Urine Blood Negative (NEGATIVE) Urine Nitrite Negative (NEGATIVE) Urine Bilirubin Negative (NEGATIVE) Urine Urobilinogen Normal MG/DL (0.0-1.0) Urine Leukocyte Esterase 1+ (NEGATIVE) H Urine RBC 0 /HPF (0 - 0) Urine WBC 0-2 /HPF (0 - 0) Urine Squamous Epithelial Cells Occasional /LPF Urine Bacteria None /HPF (NONE) Height (Feet): 5 Height (Inches): 11.00 Weight (Pounds): 143 Medications Current Medications Medications (Trade) Dose Ordered Sig/Anthony Route PRN Reason Start Time Stop Time Status Last Admin Dose Admin Diphenhydramine HCl (Benadryl) 50 mg Q6H PRN IVP Itching 12/08/19 01:30 01/07/20 01:29 12/08/19 08:42 Folic Acid (Folate) 1 mg DAILY ORAL 12/08/19 09:00 01/07/20 08:59 12/08/19 08:37 Hydromorphone HCl (Dilaudid) 2 mg Q4H PRN IVP for severe pain 12/08/19 01:30 12/15/19 01:29 12/08/19 08:38 Hydroxyurea (Hydrea) 500 mg BID ORAL 12/08/19 09:00 12/13/19 08:59 12/08/19 08:37 Lacosamide (Vimpat) 100 mg Q12HR ORAL 12/08/19 09:00 03/07/20 08:59 12/08/19 08:37 Sodium Chloride 1,000 ml @ 125 mls/hr Q8H IV 12/08/19 01:30 01/07/20 01:29 12/08/19 08:36 Assessment/Plan Assessment/Plan: Hematology/Oncology Consultation Requesting MD Corona Calvillo Date of Service: 12/08/2019 Reason for consultation: Anemia and Leukocytosis, Sickle cell disease HISTORY OF PRESENT ILLNESS: 43y old male I know well, with a history of sickle cell anemia. The patient was last admitted to [facility] in June of 2018, 08/2018, and 2018, 12/2018, 06/2020, 11/03 I last saw him at that time. Please see history and physical and discharge summary dictated at that time. The patient now complains of back pain that radiates to the chest as well as thigh pain b/l. The patient presented to [facility] emergency room. The patient is admitted with chest pain and cough to rule out pneumonia. Hematology/Oncology was consulted for Anemia and Leukocytosis. He was a patient of in the past but has not followed up in clinic.hgb remains at 7.3, now 6.6 PAST MEDICAL HISTORY: Sickle cell disease, History of seizure disorder, Avascular necrosis of the bilateral hips, Avascular necrosis of bilateral knees. PAST SURGICAL HISTORY: Tonsillectomy and adenoidectomy, Left tibia fibula fracture, Open reduction and internal fixation of left tibia fibula fracture, Pneumothorax. CURRENT MEDICATIONS:,Tylenol 650 mg p.o. daily, Benadryl 25 mg 2 tablets p.o. q.4 hours p.r.n, Folic acid 1 mg p.o. daily, Gabapentin 300 mg p.o. 3 times daily, Dilaudid 4 mg 3 tablets p.o. q.4 hours, Hydroxyurea 500 mg p.o. twice daily, Vimpat 100 mg p.o. twice bin, Methadone 60 mg p.o. q.6 hours. ALLERGIES: Ampicillin, Ketoralac, Morphine, Pentamidine, Phenytoin. SOCIAL HISTORY: The patient lives with his girlfriend and children. The patient is disabled. The patient denies tobacco or alcohol use. PHYSICAL EXAMINATION: VITAL SIGNS: have been reviewed GENERAL: The patient is a well-developed and well nourished male, in no apparent distress. HEENT: Eyes, pupils are equal and responsive to light and accommodation. Extraocular movements are intact. NECK: Supple without lymphadenopathy. CHEST: Decreased crackles in bilateral bases. Otherwise, clear to auscultation without wheezes or rales. CARDIOVASCULAR: Regular rhythm and rate ABDOMEN: Soft, nontender, and nondistended. Positive bowel sounds. No evidence of hepatosplenomegaly. Currently, no rebound or guarding noted EXTREMITIES: Negative for clubbing, cyanosis, or edema. RECTAL/GENITAL: Refused. NEUROLOGIC: Cranial nerves II through XII are grossly intact without focal def ROS: Constitutional: No fever, no chills, no night sweats, no fatigue Skin: No rashes, lumps, itchiness, dryness HEENT: No LERMA, ear ache, visual changes, double vision, nosebleeds, sore throat, lumps, swollen glands Breasts: No lumps, pain, discharge Pulmonary: No cough, sputum, shortness of breath, coughing up blood, hemoptysis Cardiovascular: No chest pain, tightness, palpitations, syncope, claudication, orthopnea, PND GI: No nausea, vomiting, diarrhea, melena, hematochezia, change in appetite, abdominal pain : No dysuria, frequency, urgency, urinary incontinence, foamy urine Musculoskeletal: No joint swelling or muscle pain, trauma, back pain Neurologic: No dizziness, fainting, seizures, changes in smell or taste Psychiatric: No nervousness, stress, or depression, anxiety, hallucinations Endocrine: No weight change, heat or cold intolerance LABORATORY STUDIES: 12/07 wbc 6, hgb 6.6, plt 371k IMAGING CXR neg for pna ASSESSMENT/Recs # Sickle cell disease with crisis presentation with total body pain as well as cp --> IVF, benadryl, dilaudid --> No evidence of hemolysis is noted, peripheral smear has been reviewed. --> Hgb goal >7. Transfuse prn. --> Epogen or iron at this time is not particularly indicated --> Medications have been reviewed ==> continue on hydroxyurea --> hgb trend 8-->7.3-->6.6 # Leukocytosis. Likely related to underlying infection versus reactive process/ SSD --> have reviewed peripheral smear and bandemia/neutrophilia noted --> continue antibiotics if they have been started by ID team --> monitor for resolution --> trend wbc 21-->17-->16.6 # DVT of the bilateral lower ext --> hold off on anticoagulation at this time # History of seizure disorder, continue gabapentin as above. # Pulmonary hypertension. 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 Greatly appreciate consultation! Marco Dutton MD December 08, 2019 10:32
[2019-12-08 10:34] LABS: HEMOGLOBIN 6.2 G/DL (14.2-18.0)
[2019-12-08 12:00] VITALS: BP 108/77
--- NOTE | 2019-12-08 16:30 | History and Physical Report ---
DATE OF ADMISSION: 12/07/2019 CHIEF COMPLAINT: Diarrhea, sickle-cell pain crisis. HISTORY OF PRESENT ILLNESS: The patient is a 43-year-old male with a history of sickle cell anemia, presented with complaints of severe pain as well as diarrhea. According to the patient, he has had three days of intractable diarrhea. Denies any nausea or vomiting. No melena. No bright red blood per rectum. Denies any fevers or chills. He has had a mild nonproductive cough. On evaluation in the emergency room, the patient had a white count of 16,000, hemoglobin is 6.6, retic count was 1.2. Sodium was 144. The patient was swabbed for COVID and is now admitted for further evaluation and care. PAST MEDICAL HISTORY: As above. PAST SURGICAL HISTORY: Includes a Port-A-Cath. CURRENT MEDICATIONS: Reconciled and reviewed. ALLERGIES: Multiple including ampicillin, Toradol, morphine, pentamidine, Dilantin. FAMILY HISTORY: Noncontributory. SOCIAL HISTORY: Negative for tobacco, ethanol, or drugs. REVIEW OF SYSTEMS: GENERAL: No fevers or chills. HEENT: No headaches or visual changes. CARDIOPULMONARY: No chest pain. Positive cough. Positive shortness of breath. GASTROINTESTINAL: No nausea or vomiting. GENITOURINARY: No urgency or frequency. MUSCULOSKELETAL: Positive joint pains. NEUROLOGIC: No evidence of seizures. PHYSICAL EXAMINATION: VITAL SIGNS: Temperature 99.3, pulse 103, respirations 18, blood pressure 107/72. GENERAL: The patient is well developed, no apparent distress. HEART: Regular rate and rhythm. LUNGS: Clear. ABDOMEN: Soft, nontender, nondistended. EXTREMITIES: Without clubbing, cyanosis, or edema. ASSESSMENT: This is a 43-year-old male, who presents with complaints of diarrhea, sickle-cell pain crisis. PLAN: Check stool for C. diff. Aggressive fluid resuscitation. Follow up COVID. Hematology and Pain Management consultations will be obtained. Corona Calvillo M.D. DR: STEVENSON JOB#: [id number] CC:
[2019-12-08] MEDS: Sodium Polystyrene Sulfonate 15gm Powder ORAL SCH ×2 (19:30→20:30)
[2019-12-08 20:00] VITALS: BP 132/96
[2019-12-09] VITALS: BP 128/85
[2019-12-09] MEDS: DiphenhydrAMINE 50mg/ml Inj IVP PRN ×6 (01:56→22:53)
--- NOTE | 2019-12-09 03:45 | Consultation ---
DATE OF CONSULTATION: 12/07/2019 CARDIOLOGY CONSULTATION REQUESTING PHYSICIAN: Corona Calvillo MD REASON FOR CONSULTATION: Elevated natriuretic peptide assay. HISTORY OF PRESENT ILLNESS: This is a 43-year-old male with sickle cell disease, who presented to the emergency room with cough and shortness of breath. He has been taking his medication regularly. He has not had any fever or chills, but has had a nonproductive cough for several days. The patient is on methadone and has taken that regularly. In the emergency room, he was placed on nasal oxygen and noted to have a low-grade temperature. Concern has been raised over his presenting symptoms, risk factors for COVID-19 and abnormal cardiac studies. PAST MEDICAL HISTORY: Sickle cell disease, pulmonary hypertension, indwelling Port-A-Cath, COPD, hypertension. ALLERGIES: Include morphine, phenytoin, ketorolac, ampicillin, and pentamidine. SOCIAL HISTORY: Negative for smoking, alcohol, or substance abuse. REVIEW OF SYSTEMS: No history of myocardial infarction. He has not had leg swelling. He does have shortness of breath. He does have an elevated natriuretic peptide assay. There is no history of myocardial infarction. He does have pulmonary hypertension. He does have joint pain. There is no history of seizures. He denies change in bowel habits, although has had some diarrhea. There is no history of visual disturbance or hearing loss. There is no history of abnormal blood clotting. PHYSICAL EXAM: VITAL SIGNS: Blood pressure 106/67, pulse 110, respirations 18, temperature 99.3. Oxygen saturation on 6 liters is 100%. NECK: Jugular venous pressure is elevated. LUNGS: Reveal diminished breath sounds with few rales at the bases. CARDIAC: Regular rhythm. Rapid rate. Normal S1, S2 with a fourth heart sound. ABDOMEN: Soft and nontender with no bruits. Extremities are without edema. LABORATORY DATA: White count 16.4, hemoglobin 6.6, platelet count is 371,000. Urinalysis with no active sediment. Sodium 144, potassium 5.1, bicarb 35, BUN 27, creatinine 1.1, glucose 115. Pro-natriuretic peptide is 351. TSH is 5.4. IMPRESSION: 1. Sickle cell crisis. 2. Sickle cell anemia. 3. Acute diastolic congestive heart failure, precipitated by above, secondary sinus tachycardia. 4. Possible hypothyroidism. 5. Pulmonary hypertension likely due to sickling. PLAN: 1. Hydration. Hematology to assess for transfusions, nasal oxygen. 2. DVT prophylaxis. Vitamin supplementation. 3. No role for diuresis at this time. Echocardiogram to follow and assess PA systolic pressures. Artie Geller M.D. DR: JORGE JOB#: [id number] CC:
[2019-12-09 04:00] VITALS: BP 128/86
--- NOTE | 2019-12-09 04:45 | Progress Note ---
DATE: 12/08/2019 CARDIOLOGY PROGRESS NOTE SUBJECTIVE: The patient still has pain, is short of breath. He still has a nonproductive cough. COVID-19 swab is pending. PHYSICAL EXAMINATION: VITAL SIGNS: Blood pressure 108/77, pulse 85, respirations 20, afebrile now. Chest x-ray reviewed and notable for a reticulonodular interstitial disease, likely chronic. LUNGS: With few rales. CARDIAC: Regular. Normal S1, S2. ABDOMEN: Soft. No edema. IMPRESSION: 1. Sickle cell crisis. 2. Acute diastolic congestive heart failure. 3. Hypertension. 4. Pulmonary hypertension. 5. History of pneumothorax. 6. History of avascular necrosis of both hips. 7. Seizure disorder. 8. Bilateral DVTs of lower extremities. PLAN: 1. Hold anticoagulation per dye box operator. Transfuse per dye box operator. Nasal oxygen. 2. Await echocardiogram. Consider addition of afterload reducing therapy for symptoms. 3. Sickle cell crisis, resolved. Artie Geller M.D. : JORGE JOB#: [id number] CC:
--- NOTE | 2019-12-09 07:54 | General Progress Note ---
Assessment/Plan Problem List: (1) Dehydration ICD Codes: E86.0 - Dehydration SNOMED: 12829272 (2) Chronic pain ICD Codes: G89.29 - Other chronic pain SNOMED: 72621153 (3) Hyperkalemia ICD Codes: E87.5 - Hyperkalemia SNOMED: 44614037 (4) Sickle cell disease ICD Codes: D57.1 - Sickle-cell disease without crisis SNOMED: 835180888 (5) Interstitial lung disease ICD Codes: J84.9 - Interstitial pulmonary disease, unspecified SNOMED: 07108188, 524848390 (6) Pulmonary HTN ICD Codes: I27.2 - Other secondary pulmonary hypertension SNOMED: 26034704 (7) Anemia ICD Codes: D64.9 - Anemia, unspecified SNOMED: 174143137 (8) Sickle cell crisis ICD Codes: D57.00 - Hb-SS disease with crisis, unspecified SNOMED: 259271326 (9) Intractable pain ICD Codes: R52 - Pain, unspecified SNOMED: 66762864 Status: stable Assessment/Plan: cont ivf check venous duplex legs o2 pulm eval for hypoxemia renal eval re: hyperkalemia monitor h/h transfuse prn. defer to heme onc. cont isolation await covid. check cdiff tele Subjective ROS Limited/Unobtainable: No Constitutional: Reports: malaise, weakness HEENT: Reports: no symptoms Cardiovascular: Reports: no symptoms Respiratory: Reports: cough, shortness of breath Gastrointestinal/Abdominal: Reports: no symptoms Genitourinary: Reports: no symptoms 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: Reports: no symptoms Endocrine: Reports: no symptoms Hematologic/Lymphatic: Reports: anemia Allergies: Coded Allergies: PENTAMIDINE ISETHIONATE (Verified Allergy, Severe, palpitations, 08/27/17) AMPICILLIN (Verified Allergy, Unknown, hives, 01/05/18) Tolerated CEftriaxone 01/02/18 KETOROLAC (Verified Allergy, Unknown, 08/03/16) MORPHINE (Verified Allergy, Unknown, 08/03/16) PHENYTOIN (Verified Allergy, Unknown, 08/03/16) All Systems: reviewed and negative except above Subjective c/o severe pain. still on o2 at 4L. CXR reviewed. K up. cdiff ordered yesterday for diarrhea. Covid still pending. Objective Last 24 Hour Vital Signs Date Time Temp Pulse Resp B/P (MAP) Pulse Ox O2 Delivery O2 Flow Rate FiO2 12/09/19 06:37 98.4 12/09/19 04:00 88 12/09/19 04:00 98.4 81 18 128/86 (100) 99 12/09/19 00:00 77 12/09/19 00:00 98.2 80 17 128/85 (99) 100 12/08/19 21:00 Nasal Cannula 6.0 12/08/19 20:00 98.1 77 17 132/96 (108) 99 12/08/19 16:00 86 12/08/19 12:00 85 12/08/19 12:00 98.0 77 20 108/77 (87) 100 12/08/19 09:00 Nasal Cannula 6.0 12/08/19 08:00 98.1 74 20 106/68 (81) 98 12/08/19 08:00 82 Intake and Output 12/08/19 12/09/19 19:00 07:00 Intake Total 1658 ml Output Total 400 ml Balance 1658 ml -400 ml IV Total 1375 ml Blood Product 283 ml Output Urine Total 400 ml # Voids 1 # Bowel Movements 1 Height (Feet): 5 Height (Inches): 11.00 Weight (Pounds): 143 General Appearance: WD/WN, alert, thin EENT: PERRL/EOMI, normal ENT inspection Neck: non-tender, normal alignment, supple Cardiovascular: normal peripheral pulses, normal rate, regular rhythm Respiratory/Chest: chest wall non-tender, lungs clear, normal breath sounds, no respiratory distress, no accessory muscle use Abdomen: normal bowel sounds, non tender, soft, no organomegaly Edema: no edema noted Arm (L), no edema noted Arm (R), no edema noted Leg (L), no edema noted Leg (R), no edema noted Pedal (L), no edema noted Pedal (R), no edema noted Generalized Neurologic: assessment counselor 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, alert, oriented x 3 Skin: normal pigmentation Lymphatic: normal anterior cervical (L), normal anterior cervical (R) Corona Calvillo MD December 09, 2019 07:54
[2019-12-09 08:00] VITALS: BP 112/72
[2019-12-09] MEDS: Lacosamide 50mg tablet ORAL SCH ×2 (08:38→20:59)
[2019-12-09] MEDS: Hydroxyurea 500mg cap ORAL SCH ×2 (08:38→18:24)
--- NOTE | 2019-12-09 09:11 | Diagnostic Imaging Report ---
EXAM: XR Chest, 1 View CLINICAL HISTORY: SOB TECHNIQUE: Frontal view of the chest. COMPARISON: Chest x-ray 12/07/19 FINDINGS: Lungs: Worsening right lung interstitial prominence. Slight worsening left lung base airspace disease. Pleural space: Unremarkable. No pneumothorax. Heart: Unremarkable. No cardiomegaly. Mediastinum: Unremarkable. Bones/joints: Unremarkable. Tubes, lines and devices: Stable right chest port. IMPRESSION: Worsening right lung interstitial prominence, query mild interstitial edema or pneumonitis. Slight worsening left lung base airspace disease.
--- NOTE | 2019-12-09 09:49 | Hematology/Onc Progress Note ---
Assessment/Plan Assessment/Plan ASSESSMENT/Recs # Sickle cell disease with crisis presentation with total body pain as well as cp --> IVF, benadryl, dilaudid --> No evidence of hemolysis is noted, peripheral smear has been reviewed. --> Hgb goal >7. Transfuse prn. --> Epogen or iron at this time is not particularly indicated --> Medications have been reviewed ==> continue on hydroxyurea --> hgb trend 8-->7.3-->6.6->6.2 # Leukocytosis. Likely related to underlying infection versus reactive process/ SSD --> have reviewed peripheral smear and bandemia/neutrophilia noted --> continue antibiotics if they have been started by ID team --> monitor for resolution --> trend wbc 21-->17-->16.6 # DVT of the bilateral lower ext --> hold off on anticoagulation at this time # History of seizure disorder, continue gabapentin as above. # Pulmonary hypertension. 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 Greatly appreciate consultation! Subjective HEENT: Denies: no symptoms, eye pain, blurred vision, tearing, double vision, ear pain, ear discharge, nose pain, nose congestion, throat pain, throat swelling, mouth pain, mouth swelling, other Cardiovascular: Denies: no symptoms, chest pain, edema, irregular heart rate, lightheadedness, palpitations, syncope, other Gastrointestinal/Abdominal: Denies: no symptoms, abdomen distended, abdominal pain, black stools, tarry stools, blood in stool, constipated, diarrhea, difficulty swallowing, nausea, poor appetite, poor fluid intake, rectal bleeding , vomiting, other Genitourinary: Denies: no symptoms, burning, discharge, frequency, flank pain, hematuria, incontinence, pain, urgency, other Endocrine: Denies: no symptoms, excessive sweating, flushing, intolerance to cold, intolerance to heat, increased hunger, increased thirst, increased urine, unexplained weight gain, unexplained weight loss, other Allergies: Coded Allergies: PENTAMIDINE ISETHIONATE (Verified Allergy, Severe, palpitations, 08/27/17) AMPICILLIN (Verified Allergy, Unknown, hives, 01/05/18) Tolerated CEftriaxone 01/02/18 KETOROLAC (Verified Allergy, Unknown, 08/03/16) MORPHINE (Verified Allergy, Unknown, 08/03/16) PHENYTOIN (Verified Allergy, Unknown, 08/03/16) Subjective 12/08 labs are noted, no bleeding, hgb remains in the 6s, ferritin elev Objective Objective Current Medications Medications (Trade) Dose Ordered Sig/Anthony Route PRN Reason Start Time Stop Time Status Last Admin Dose Admin Diphenhydramine HCl (Benadryl) 50 mg Q4H PRN IVP Itching 12/08/19 13:00 01/07/20 12:59 12/09/19 06:07 Folic Acid (Folate) 1 mg DAILY ORAL 12/08/19 09:00 01/07/20 08:59 12/09/19 08:38 Hydromorphone HCl (Dilaudid) 2 mg Q4H PRN IVP for severe pain 12/08/19 01:30 12/15/19 01:29 12/09/19 06:07 Hydroxyurea (Hydrea) 500 mg BID ORAL 12/08/19 09:00 12/13/19 08:59 12/09/19 08:38 Lacosamide (Vimpat) 100 mg Q12HR ORAL 12/08/19 09:00 03/07/20 08:59 12/09/19 08:38 Methadone HCl (Methadone HCl) 60 mg EVERY 6 HOURS ORAL 12/08/19 13:00 12/15/19 12:59 12/09/19 06:06 Sodium Chloride 1,000 ml @ 75 mls/hr [id number] IV 12/09/19 08:00 01/08/20 07:59 12/09/19 08:38 Last 24 Hour Vital Signs Date Time Temp Pulse Resp B/P (MAP) Pulse Ox O2 Delivery O2 Flow Rate FiO2 12/09/19 08:00 96.7 75 20 112/72 (85) 96 12/09/19 06:37 98.4 12/09/19 04:00 88 12/09/19 04:00 98.4 81 18 128/86 (100) 99 12/09/19 00:00 77 12/09/19 00:00 98.2 80 17 128/85 (99) 100 12/08/19 21:00 Nasal Cannula 6.0 12/08/19 20:00 98.1 77 17 132/96 (108) 99 12/08/19 16:00 86 12/08/19 12:00 85 12/08/19 12:00 98.0 77 20 108/77 (87) 100 12/08/19 09:00 Nasal Cannula 6.0 12/08/19 08:00 98.1 74 20 106/68 (81) 98 12/08/19 08:00 82 12/08/19 04:00 84 12/08/19 00:13 Nasal Cannula 4.0 12/08/19 00:00 85 12/07/19 23:24 99.0 89 111/78 (89) 100 12/07/19 23:04 99.3 93 16 101/69 100 Nasal Cannula 4.0 12/07/19 21:28 99.3 93 16 101/69 100 Nasal Cannula 4.0 12/07/19 20:08 99.3 89 17 107/72 100 Nasal Cannula 4.0 12/07/19 19:51 99.3 12/07/19 18:52 99.3 103 18 106/67 100 Nasal Cannula 6.0 12/07/19 18:51 110 18 Nasal Cannula 6.0 12/07/19 18:24 99.3 110 18 106/67 (80) 100 Nasal Cannula 6.0 Intake and Output 12/08/19 12/09/19 19:00 07:00 Intake Total 1658 ml Output Total 400 ml Balance 1658 ml -400 ml IV Total 1375 ml Blood Product 283 ml Output Urine Total 400 ml # Voids 1 # Bowel Movements 1 Labs Test 12/07/19 18:37 12/07/19 21:10 12/08/19 07:00 White Blood Count 16.4 K/UL (4.8-10.8) 14.3 K/UL (4.8-10.8) Red Blood Count 2.29 M/UL (4.70-6.10) 2.18 M/UL (4.70-6.10) Hemoglobin 6.6 G/DL (14.2-18.0) 6.2 G/DL (14.2-18.0) Hematocrit 21.6 % (42.0-52.0) 19.1 % (42.0-52.0) Mean Corpuscular Volume 94 FL (80-99) 88 FL (80-99) Mean Corpuscular Hemoglobin 28.9 PG (27.0-31.0) 28.3 PG (27.0-31.0) Mean Corpuscular Hemoglobin Concent 30.6 G/DL (32.0-36.0) 32.3 G/DL (32.0-36.0) Red Cell Distribution Width 17.0 % (11.6-14.8) 14.9 % (11.6-14.8) Platelet Count 371 K/UL (150-450) 363 K/UL (150-450) Mean Platelet Volume 7.7 FL (6.5-10.1) 6.7 FL (6.5-10.1) Neutrophils (%) (Auto) % (45.0-75.0) % (45.0-75.0) Lymphocytes (%) (Auto) % (20.0-45.0) % (20.0-45.0) Monocytes (%) (Auto) % (1.0-10.0) % (1.0-10.0) Eosinophils (%) (Auto) % (0.0-3.0) % (0.0-3.0) Basophils (%) (Auto) % (0.0-2.0) % (0.0-2.0) Differential Total Cells Counted 100 100 Neutrophils % (Manual) 70 % (45-75) 59 % (45-75) Lymphocytes % (Manual) 17 % (20-45) 34 % (20-45) Monocytes % (Manual) 6 % (1-10) 2 % (1-10) Eosinophils % (Manual) 7 % (0-3) 4 % (0-3) Basophils % (Manual) 0 % (0-2) 1 % (0-2) Band Neutrophils 0 % (0-8) 0 % (0-8) Nucleated Red Blood Cells 2 /100 WBC Platelet Estimate Adequate Adequate Platelet Morphology See comment Normal Giant Platelets Occasional Hypochromasia 2+ 4+ Anisocytosis 2+ 1+ Reticulocyte Count 1.2 % (0.5-2.0) Sodium Level 144 MMOL/L (136-145) 144 MMOL/L (136-145) Potassium Level 5.1 MMOL/L (3.5-5.1) 5.2 MMOL/L (3.5-5.1) Chloride Level 108 MMOL/L (98-107) 108 MMOL/L (98-107) Carbon Dioxide Level 35 MMOL/L (21-32) 34 MMOL/L (21-32) Anion Gap 1 mmol/L (5-15) 2 mmol/L (5-15) Blood Urea Nitrogen 27 mg/dL (7-18) 23 mg/dL (7-18) Creatinine 1.1 MG/DL (0.55-1.30) 0.9 MG/DL (0.55-1.30) Estimat Glomerular Filtration Rate > 60 mL/min (>60) > 60 mL/min (>60) Glucose Level 115 MG/DL (74-106) 128 MG/DL (74-106) Calcium Level 9.7 MG/DL (8.5-10.1) 9.2 MG/DL (8.5-10.1) Total Bilirubin 0.5 MG/DL (0.2-1.0) 0.5 MG/DL (0.2-1.0) Aspartate Amino Transf (AST/SGOT) 60 U/L (15-37) 55 U/L (15-37) Alanine Aminotransferase (ALT/SGPT) 109 U/L (12-78) 97 U/L (12-78) Alkaline Phosphatase 215 U/L (46-116) 190 U/L (46-116) Troponin I 0.008 ng/mL (0.000-0.056) Pro-B-Type Natriuretic Peptide 351 pg/mL (0-125) Total Protein 6.4 G/DL (6.4-8.2) 6.1 G/DL (6.4-8.2) Albumin 3.4 G/DL (3.4-5.0) 3.3 G/DL (3.4-5.0) Globulin 3.0 g/dL 2.8 g/dL Albumin/Globulin Ratio 1.1 (1.0-2.7) 1.2 (1.0-2.7) Thyroid Stimulating Hormone (TSH) 5.431 uiU/mL (0.358-3.740) Urine Color Pale yellow Urine Appearance Clear Urine pH 6 (4.5-8.0) Urine Specific [place] 1.005 (1.005-1.035) Urine Protein 2+ (NEGATIVE) Urine Glucose (UA) Negative (NEGATIVE) Urine Ketones Negative (NEGATIVE) Urine Blood Negative (NEGATIVE) Urine Nitrite Negative (NEGATIVE) Urine Bilirubin Negative (NEGATIVE) Urine Urobilinogen Normal MG/DL (0.0-1.0) Urine Leukocyte Esterase 1+ (NEGATIVE) Urine RBC 0 /HPF (0 - 0) Urine WBC 0-2 /HPF (0 - 0) Urine Squamous Epithelial Cells Occasional /LPF Urine Bacteria None /HPF (NONE) Red Blood Cell Morphology Normal Height (Feet): 5 Height (Inches): 11.00 Weight (Pounds): 143 Objective PHYSICAL EXAMINATION: VITAL SIGNS: have been reviewed GENERAL: The patient is a well-developed and well nourished male, in no apparent distress. HEENT: Eyes, pupils are equal and responsive to light and accommodation. Extraocular movements are intact. NECK: Supple without lymphadenopathy. CHEST: Decreased crackles in bilateral bases. Otherwise, clear to auscultation without wheezes or rales. CARDIOVASCULAR: Regular rhythm and rate ABDOMEN: Soft, nontender, and nondistended. Positive bowel sounds. No evidence of hepatosplenomegaly. Currently, no rebound or guarding noted EXTREMITIES: Negative for clubbing, cyanosis, or edema. RECTAL/GENITAL: Refused. NEUROLOGIC: Cranial nerves II through XII are grossly intact without focal def Marco Dutton MD December 09, 2019 09:49
[2019-12-09 12:00] VITALS: BP 114/72
[2019-12-09 16:00] VITALS: BP 109/78
[2019-12-09 20:00] VITALS: BP 133/94
[2019-12-10] VITALS: BP 114/74
--- NOTE | 2019-12-10 01:15 | Progress Note ---
DATE: 12/09/2019 CARDIOLOGY PROGRESS NOTE SUBJECTIVE: The patient is increasingly hypoxic. Chest x-ray reveals worsening infiltrates on the right. PHYSICAL EXAMINATION: VITAL SIGNS: Afebrile, blood pressure 128/86, pulse 81, and respirations 18. LUNGS: With rhonchi. CARDIAC: Regular. Normal S1, S2. No new murmur. ABDOMEN: Soft. EXTREMITIES: No edema. LABORATORY DATA: White count 14.3. Hemoglobin 6.2 yesterday. IMPRESSION: 1. Sickle cell anemia. 2. Acute diastolic congestive heart failure, clinically compensated. 3. Chest x-ray findings are suggestive of worsening heart failure. 4. Pulmonary hypertension. 5. Hypertensive heart disease. PLAN: 1. Antimicrobials. 2. Transfusion per Hematology. 3. Continue anti-failure regimen, nasal oxygen. 4. Current natriuretic peptide assay. Artie Geller M.D. DR: BRYCE JOB#: [id number] CC:
[2019-12-10] MEDS: DiphenhydrAMINE 50mg/ml Inj IVP PRN ×6 (03:05→23:57)
[2019-12-10 04:00] VITALS: BP 122/85
[2019-12-10 07:03] LABS: HEMATOCRIT 18.8 % (42.0-52.0); MEAN CORPUSCULAR VOLUME 88 FL (80-99); PLATELET COUNT 308 K/UL (150-450); RED BLOOD COUNT 2.14 M/UL (4.70-6.10); RED CELL DISTRIBUTION WIDTH 15.2 % (11.6-14.8); WHITE BLOOD COUNT 10.2 K/UL (4.8-10.8)
[2019-12-10 07:04] LABS: HEMOGLOBIN 6.2 G/DL (14.2-18.0)
[2019-12-10 07:16] LABS: ALANINE AMINOTRANSFERASE 158 U/L (12-78); ALBUMIN 2.9 G/DL (3.4-5.0); ALBUMIN/GLOBULIN RATIO 1.1 (1.0-2.7); ALKALINE PHOSPHATASE 233 U/L (46-116); ANION GAP 3 mmol/L (5-15); ASPARTATE AMINO TRANSFERASE 118 U/L (15-37); BILIRUBIN,TOTAL 0.5 MG/DL (0.2-1.0); BLOOD UREA NITROGEN 19 mg/dL (7-18); CALCIUM 8.2 MG/DL (8.5-10.1); CARBON DIOXIDE 29 MMOL/L (21-32); CHLORIDE 111 MMOL/L (98-107); CREATININE 0.7 MG/DL (0.55-1.30); POTASSIUM 4.9 MMOL/L (3.5-5.1); SODIUM 143 MMOL/L (136-145)
--- NOTE | 2019-12-10 07:46 | General Progress Note ---
Assessment/Plan Problem List: (1) Dehydration ICD Codes: E86.0 - Dehydration SNOMED: 94103055 (2) Chronic pain ICD Codes: G89.29 - Other chronic pain SNOMED: 92534081 (3) Hyperkalemia ICD Codes: E87.5 - Hyperkalemia SNOMED: 88176613 (4) Sickle cell disease ICD Codes: D57.1 - Sickle-cell disease without crisis SNOMED: 884929529 (5) Interstitial lung disease ICD Codes: J84.9 - Interstitial pulmonary disease, unspecified SNOMED: 25456237, 645923936 (6) Pulmonary HTN ICD Codes: I27.2 - Other secondary pulmonary hypertension SNOMED: 13288395 (7) Anemia ICD Codes: D64.9 - Anemia, unspecified SNOMED: 685717747 (8) Sickle cell crisis ICD Codes: D57.00 - Hb-SS disease with crisis, unspecified SNOMED: 309628296 (9) Intractable pain ICD Codes: R52 - Pain, unspecified SNOMED: 23610055 Status: stable Assessment/Plan: cont ivf check venous duplex legs o2 pulm eval for hypoxemia renal eval re: hyperkalemia monitor h/h transfuse prn. defer to heme onc. cont isolation await covid. iv abx ordered id called tele Subjective ROS Limited/Unobtainable: No Constitutional: Reports: malaise, weakness HEENT: Reports: no symptoms Cardiovascular: Reports: no symptoms Respiratory: Reports: cough, shortness of breath Gastrointestinal/Abdominal: Reports: no symptoms Genitourinary: Reports: no symptoms 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: Reports: no symptoms Endocrine: Reports: no symptoms Hematologic/Lymphatic: Reports: no symptoms Allergies: Coded Allergies: PENTAMIDINE ISETHIONATE (Verified Allergy, Severe, palpitations, 08/27/17) AMPICILLIN (Verified Allergy, Unknown, hives, 01/05/18) Tolerated CEftriaxone 01/02/18 KETOROLAC (Verified Allergy, Unknown, 08/03/16) MORPHINE (Verified Allergy, Unknown, 08/03/16) PHENYTOIN (Verified Allergy, Unknown, 08/03/16) All Systems: reviewed and negative except above Subjective no events. pain better controlled. cxr with worsening infiltrate/pneumonitis. covid not back yet. no chest pain . Objective Last 24 Hour Vital Signs Date Time Temp Pulse Resp B/P (MAP) Pulse Ox O2 Delivery O2 Flow Rate FiO2 12/10/19 04:00 98.6 73 20 122/85 (97) 96 12/10/19 04:00 82 12/10/19 03:34 98.3 12/10/19 00:00 98.3 85 20 114/74 (87) 96 12/10/19 00:00 88 12/09/19 21:00 Nasal Cannula 4.0 12/09/19 20:00 98.8 80 20 133/94 (107) 100 12/09/19 20:00 85 12/09/19 16:00 98.6 67 19 109/78 (88) 96 12/09/19 16:00 90 12/09/19 12:00 87 12/09/19 12:00 98.1 81 18 114/72 (86) 97 12/09/19 09:00 Nasal Cannula 4.0 12/09/19 08:00 82 12/09/19 08:00 96.7 75 20 112/72 (85) 96 Intake and Output 12/09/19 12/10/19 18:59 06:59 Intake Total 700 ml Balance 700 ml IV Total 700 ml Laboratory Tests 12/10/19 05:00: White Blood Count 10.2, Red Blood Count 2.14L, Hemoglobin 6.2*L, Hematocrit 18.8L, Mean Corpuscular Volume 88, Mean Corpuscular Hemoglobin 28.9, Mean Corpuscular Hemoglobin Concent 32.9, Red Cell Distribution Width 15.2H, Platelet Count 308, Mean Platelet Volume 6.3L, Neutrophils (%) (Auto) , Lymphocytes (%) (Auto) , Monocytes (%) (Auto) , Eosinophils (%) (Auto) , Basophils (%) (Auto) , Neutrophils % (Manual) [Pending], Lymphocytes % (Manual) [Pending], Platelet Estimate [Pending], Platelet Morphology [Pending], Sodium Level 143, Potassium Level 4.9, Chloride Level 111H, Carbon Dioxide Level 29, Anion Gap 3L, Blood Urea Nitrogen 19H, Creatinine 0.7, Estimat Glomerular Filtration Rate > 60, Glucose Level 76, Calcium Level 8.2L, Magnesium Level [ Pending], Total Bilirubin 0.5, Aspartate Amino Transf (AST/SGOT) 118H, Alanine Aminotransferase (ALT/SGPT) 158H, Alkaline Phosphatase 233H, Pro-B-Type Natriuretic Peptide [Pending], Total Protein 5.6L, Albumin 2.9L, Globulin 2.7, Albumin/Globulin Ratio 1.1 Height (Feet): 5 Height (Inches): 11.00 Weight (Pounds): 143 General Appearance: WD/WN, alert, cachetic EENT: PERRL/EOMI, normal ENT inspection Neck: non-tender, normal alignment, supple Cardiovascular: normal peripheral pulses, normal rate Respiratory/Chest: chest wall non-tender, lungs clear, normal breath sounds, no respiratory distress, no accessory muscle use Abdomen: normal bowel sounds, non tender, soft, no organomegaly Edema: no edema noted Arm (L), no edema noted Arm (R), no edema noted Leg (L), no edema noted Leg (R), no edema noted Pedal (L), no edema noted Pedal (R), no edema noted 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
[2019-12-10 08:00] VITALS: BP 120/85
[2019-12-10] MEDS: Hydroxyurea 500mg cap ORAL SCH ×2 (08:47→17:08)
[2019-12-10] MEDS: Lacosamide 50mg tablet ORAL SCH ×2 (08:47→21:23)
[2019-12-10] MEDS: cefTRIAXone 1 GM in D5W 55 ML IVPB SCH (08:48)
--- NOTE | 2019-12-10 10:32 | Hematology/Onc Progress Note ---
Assessment/Plan Assessment/Plan ASSESSMENT/Recs # Sickle cell disease with crisis presentation with total body pain as well as cp --> IVF, benadryl, dilaudid --> No evidence of hemolysis is noted, peripheral smear has been reviewed. --> Hgb goal >7. Transfuse prn. --> Epogen or iron at this time is not particularly indicated --> Medications have been reviewed ==> continue on hydroxyurea --> hgb trend 8-->7.3-->6.6->6.2 # Leukocytosis. Likely related to underlying infection versus reactive process/ SSD --> have reviewed peripheral smear and bandemia/neutrophilia noted --> continue antibiotics if they have been started by ID team --> monitor for resolution --> trend wbc 21-->17-->16.6 # DVT of the bilateral lower ext --> hold off on anticoagulation at this time # History of seizure disorder, continue gabapentin as above. # Pulmonary hypertension. 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 Greatly appreciate consultation! Subjective HEENT: Denies: no symptoms, eye pain, blurred vision, tearing, double vision, ear pain, ear discharge, nose pain, nose congestion, throat pain, throat swelling, mouth pain, mouth swelling, other Cardiovascular: Denies: no symptoms, chest pain, edema, irregular heart rate, lightheadedness, palpitations, syncope, other Respiratory: Denies: no symptoms, cough, shortness of breath, SOB with excertion, SOB at rest, sputum, wheezing, other Gastrointestinal/Abdominal: Denies: no symptoms, abdomen distended, abdominal pain, black stools, tarry stools, blood in stool, constipated, diarrhea, difficulty swallowing, nausea, poor appetite, poor fluid intake, rectal bleeding , vomiting, other Genitourinary: Denies: no symptoms, burning, discharge, frequency, flank pain, hematuria, incontinence, pain, urgency, other 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: Denies: no symptoms, anxiety, depressed, emotional problems, headache, numbness, paresthesia, pre-existing deficit, seizure, tingling, tremors, weakness, other Endocrine: Denies: no symptoms, excessive sweating, flushing, intolerance to cold, intolerance to heat, increased hunger, increased thirst, increased urine, unexplained weight gain, unexplained weight loss, other Allergies: Coded Allergies: PENTAMIDINE ISETHIONATE (Verified Allergy, Severe, palpitations, 08/27/17) AMPICILLIN (Verified Allergy, Unknown, hives, 01/05/18) Tolerated CEftriaxone 01/02/18 KETOROLAC (Verified Allergy, Unknown, 08/03/16) MORPHINE (Verified Allergy, Unknown, 08/03/16) PHENYTOIN (Verified Allergy, Unknown, 08/03/16) Subjective 12/08 labs are noted, no bleeding, hgb remains in the 6s, ferritin elev 12/09 wants to get dialidid this am, no bleeding, meds noted Objective Objective Current Medications Medications (Trade) Dose Ordered Sig/Anthony Route PRN Reason Start Time Stop Time Status Last Admin Dose Admin Ceftriaxone Sodium 1 gm/ Dextrose 55 ml @ 110 mls/hr Q24H IVPB 12/10/19 09:00 12/17/19 08:59 12/10/19 08:48 Diphenhydramine HCl (Benadryl) 50 mg Q4H PRN IVP Itching 12/08/19 13:00 01/07/20 12:59 12/10/19 06:57 Folic Acid (Folate) 1 mg DAILY ORAL 12/08/19 09:00 01/07/20 08:59 12/10/19 08:47 Hydromorphone HCl (Dilaudid) 2 mg Q4H PRN IVP for severe pain 12/08/19 01:30 12/15/19 01:29 12/10/19 06:57 Hydroxyurea (Hydrea) 500 mg BID ORAL 12/08/19 09:00 12/13/19 08:59 12/10/19 08:47 Lacosamide (Vimpat) 100 mg Q12HR ORAL 12/08/19 09:00 03/07/20 08:59 12/10/19 08:47 Methadone HCl (Methadone HCl) 60 mg EVERY 6 HOURS ORAL 12/08/19 13:00 12/15/19 12:59 12/10/19 05:54 Sodium Chloride 1,000 ml @ 75 mls/hr [id number] IV 12/09/19 08:00 01/08/20 07:59 12/09/19 20:59 Vancomycin HCl (Vanco rx to dose) 1 ea DAILY PRN MISC Per rx protocol 12/10/19 07:45 01/09/20 07:44 Vancomycin/Sodium Chloride 275 ml @ 183.333 mls/hr Q12HR@1000,2200 IVPB 12/10/19 10:00 12/15/19 09:59 Last 24 Hour Vital Signs Date Time Temp Pulse Resp B/P (MAP) Pulse Ox O2 Delivery O2 Flow Rate FiO2 12/10/19 09:00 Nasal Cannula 4.0 12/10/19 08:00 98.6 86 18 120/85 (97) 96 12/10/19 08:00 83 12/10/19 07:27 98.6 12/10/19 04:00 98.6 73 20 122/85 (97) 96 12/10/19 04:00 82 12/10/19 00:00 98.3 85 20 114/74 (87) 96 12/10/19 00:00 88 12/09/19 21:00 Nasal Cannula 4.0 12/09/19 20:00 98.8 80 20 133/94 (107) 100 12/09/19 20:00 85 12/09/19 16:00 98.6 67 19 109/78 (88) 96 12/09/19 16:00 90 12/09/19 12:00 87 12/09/19 12:00 98.1 81 18 114/72 (86) 97 12/09/19 09:00 Nasal Cannula 4.0 12/09/19 08:00 82 12/09/19 08:00 96.7 75 20 112/72 (85) 96 12/09/19 04:00 88 12/09/19 04:00 98.4 81 18 128/86 (100) 99 12/09/19 00:00 77 12/09/19 00:00 98.2 80 17 128/85 (99) 100 12/08/19 21:00 Nasal Cannula 6.0 12/08/19 20:00 98.1 77 17 132/96 (108) 99 12/08/19 16:00 86 12/08/19 12:00 85 12/08/19 12:00 98.0 77 20 108/77 (87) 100 Intake and Output 12/09/19 12/10/19 19:00 07:00 Intake Total 700 ml 75 ml Balance 700 ml 75 ml IV Total 700 ml 75 ml Labs Test 12/07/19 18:37 12/07/19 21:10 12/08/19 07:00 12/10/19 05:00 White Blood Count 16.4 K/UL (4.8-10.8) 14.3 K/UL (4.8-10.8) 10.2 K/UL (4.8-10.8) Red Blood Count 2.29 M/UL (4.70-6.10) 2.18 M/UL (4.70-6.10) 2.14 M/UL (4.70-6.10) Hemoglobin 6.6 G/DL (14.2-18.0) 6.2 G/DL (14.2-18.0) 6.2 G/DL (14.2-18.0) Hematocrit 21.6 % (42.0-52.0) 19.1 % (42.0-52.0) 18.8 % (42.0-52.0) Mean Corpuscular Volume 94 FL (80-99) 88 FL (80-99) 88 FL (80-99) Mean Corpuscular Hemoglobin 28.9 PG (27.0-31.0) 28.3 PG (27.0-31.0) 28.9 PG (27.0-31.0) Mean Corpuscular Hemoglobin Concent 30.6 G/DL (32.0-36.0) 32.3 G/DL (32.0-36.0) 32.9 G/DL (32.0-36.0) Red Cell Distribution Width 17.0 % (11.6-14.8) 14.9 % (11.6-14.8) 15.2 % (11.6-14.8) Platelet Count 371 K/UL (150-450) 363 K/UL (150-450) 308 K/UL (150-450) Mean Platelet Volume 7.7 FL (6.5-10.1) 6.7 FL (6.5-10.1) 6.3 FL (6.5-10.1) Neutrophils (%) (Auto) % (45.0-75.0) % (45.0-75.0) % (45.0-75.0) Lymphocytes (%) (Auto) % (20.0-45.0) % (20.0-45.0) % (20.0-45.0) Monocytes (%) (Auto) % (1.0-10.0) % (1.0-10.0) % (1.0-10.0) Eosinophils (%) (Auto) % (0.0-3.0) % (0.0-3.0) % (0.0-3.0) Basophils (%) (Auto) % (0.0-2.0) % (0.0-2.0) % (0.0-2.0) Differential Total Cells Counted 100 100 100 Neutrophils % (Manual) 70 % (45-75) 59 % (45-75) 45 % (45-75) Lymphocytes % (Manual) 17 % (20-45) 34 % (20-45) 44 % (20-45) Monocytes % (Manual) 6 % (1-10) 2 % (1-10) 7 % (1-10) Eosinophils % (Manual) 7 % (0-3) 4 % (0-3) 4 % (0-3) Basophils % (Manual) 0 % (0-2) 1 % (0-2) 0 % (0-2) Band Neutrophils 0 % (0-8) 0 % (0-8) 0 % (0-8) Nucleated Red Blood Cells 2 /100 WBC 2 /100 WBC Platelet Estimate Adequate Adequate Adequate Platelet Morphology See comment Normal Normal Giant Platelets Occasional Hypochromasia 2+ 4+ 2+ Anisocytosis 2+ 1+ 1+ Reticulocyte Count 1.2 % (0.5-2.0) Sodium Level 144 MMOL/L (136-145) 144 MMOL/L (136-145) 143 MMOL/L (136-145) Potassium Level 5.1 MMOL/L (3.5-5.1) 5.2 MMOL/L (3.5-5.1) 4.9 MMOL/L (3.5-5.1) Chloride Level 108 MMOL/L (98-107) 108 MMOL/L (98-107) 111 MMOL/L (98-107) Carbon Dioxide Level 35 MMOL/L (21-32) 34 MMOL/L (21-32) 29 MMOL/L (21-32) Anion Gap 1 mmol/L (5-15) 2 mmol/L (5-15) 3 mmol/L (5-15) Blood Urea Nitrogen 27 mg/dL (7-18) 23 mg/dL (7-18) 19 mg/dL (7-18) Creatinine 1.1 MG/DL (0.55-1.30) 0.9 MG/DL (0.55-1.30) 0.7 MG/DL (0.55-1.30) Estimat Glomerular Filtration Rate > 60 mL/min (>60) > 60 mL/min (>60) > 60 mL/min (>60) Glucose Level 115 MG/DL (74-106) 128 MG/DL (74-106) 76 MG/DL (74-106) Calcium Level 9.7 MG/DL (8.5-10.1) 9.2 MG/DL (8.5-10.1) 8.2 MG/DL (8.5-10.1) Total Bilirubin 0.5 MG/DL (0.2-1.0) 0.5 MG/DL (0.2-1.0) 0.5 MG/DL (0.2-1.0) Aspartate Amino Transf (AST/SGOT) 60 U/L (15-37) 55 U/L (15-37) 118 U/L (15-37) Alanine Aminotransferase (ALT/SGPT) 109 U/L (12-78) 97 U/L (12-78) 158 U/L (12-78) Alkaline Phosphatase 215 U/L (46-116) 190 U/L (46-116) 233 U/L (46-116) Troponin I 0.008 ng/mL (0.000-0.056) Pro-B-Type Natriuretic Peptide 351 pg/mL (0-125) 810 pg/mL (0-125) Total Protein 6.4 G/DL (6.4-8.2) 6.1 G/DL (6.4-8.2) 5.6 G/DL (6.4-8.2) Albumin 3.4 G/DL (3.4-5.0) 3.3 G/DL (3.4-5.0) 2.9 G/DL (3.4-5.0) Globulin 3.0 g/dL 2.8 g/dL 2.7 g/dL Albumin/Globulin Ratio 1.1 (1.0-2.7) 1.2 (1.0-2.7) 1.1 (1.0-2.7) Thyroid Stimulating Hormone (TSH) 5.431 uiU/mL (0.358-3.740) Urine Color Pale yellow Urine Appearance Clear Urine pH 6 (4.5-8.0) Urine Specific [place] 1.005 (1.005-1.035) Urine Protein 2+ (NEGATIVE) Urine Glucose (UA) Negative (NEGATIVE) Urine Ketones Negative (NEGATIVE) Urine Blood Negative (NEGATIVE) Urine Nitrite Negative (NEGATIVE) Urine Bilirubin Negative (NEGATIVE) Urine Urobilinogen Normal MG/DL (0.0-1.0) Urine Leukocyte Esterase 1+ (NEGATIVE) Urine RBC 0 /HPF (0 - 0) Urine WBC 0-2 /HPF (0 - 0) Urine Squamous Epithelial Cells Occasional /LPF Urine Bacteria None /HPF (NONE) Red Blood Cell Morphology Normal Polychromasia 1+ Magnesium Level 1.5 MG/DL (1.8-2.4) Height (Feet): 5 Height (Inches): 11.00 Weight (Pounds): 143 Objective PHYSICAL EXAMINATION: VITAL SIGNS: have been reviewed GENERAL: The patient is a well-developed and well nourished male, in no apparent distress. HEENT: Eyes, pupils are equal and responsive to light and accommodation. Extraocular movements are intact. NECK: Supple without lymphadenopathy. CHEST: Decreased crackles in bilateral bases. Otherwise, clear to auscultation without wheezes or rales. CARDIOVASCULAR: Regular rhythm and rate ABDOMEN: Soft, nontender, and nondistended. Positive bowel sounds. No evidence of hepatosplenomegaly. Currently, no rebound or guarding noted EXTREMITIES: Negative for clubbing, cyanosis, or edema. RECTAL/GENITAL: Refused. NEUROLOGIC: Cranial nerves II through XII are grossly intact without focal def Marco Dutton MD December 10, 2019 10:32
[2019-12-10] MEDS: Vancomycin 1.25gm/NS Premix IVPB SCH ×2 (10:33→21:24)
[2019-12-10 12:00] VITALS: BP 110/85
[2019-12-10 16:00] VITALS: BP 115/72
--- NOTE | 2019-12-10 18:30 | Consultation ---
DATE OF CONSULTATION: 12/10/2019 INFECTIOUS DISEASES CONSULTATION CONSULTING PHYSICIAN: Torin Perez MD. REFERRING PHYSICIAN: Corona Calvillo MD. REASON FOR CONSULTATION: Possible COVID-19 pneumonia. HISTORY OF PRESENTING ILLNESS: This is a 43-year-old male with history of sickle cell disease who came in with pain and diarrhea. he also has a cough. he was found to have leukocytosis. A COVID-19 test has been sent and an Infectious Diseases consultation has been obtained for antibiotics. PAST MEDICAL HISTORY: 1. History of sickle cell disease. 2. Hypertension. 3. COPD. 4. Pulmonary hypertension. SOCIAL HISTORY: he does not smoke, drink, or use drugs. FAMILY HISTORY: Noncontributory. REVIEW OF SYSTEMS: Unable to obtain currently. MEDICATIONS: As an inpatient, he is on IV vancomycin, ceftriaxone, Benadryl, methadone, folic acid, hydroxyurea, lacosamide, hydromorphone. ALLERGIES: 1. Ampicillin. 2. Ketoralac. 3. Morphine. 4. Pentamidine. 5. Phenytoin. PHYSICAL EXAMINATION: VITAL SIGNS: Temperature of 98.6, T-max of 98.8, pulse of 86, respiratory rate 18, blood pressure 120/85, O2 saturation of 96% on 4 liters oxygen. Examination deferred due to possibility of COVID-19. LABORATORY AND DIAGNOSTIC DATA: White count 10.2, white count of 16.4 on 12/07/2019, hemoglobin 6.2, hematocrit 18.8, MCV 88, platelet count of 308 with neutrophils of 45%. Sodium 143, potassium 4.9, chloride 111, bicarb 29, BUN 19, creatinine 0.7, glucose 76, calcium 8.2. Total bilirubin 0.5, AST 118, ALT 158, alkaline phosphatase 233. Beta-natriuretic peptide 810. Total protein 5.6, albumin 2.9. UA showing 0 to 2 white cells. Hepatitis B and C antibodies pending. COVID-19 test is pending. Chest x-ray is showing bilateral interstitial changes and linear opacities to the left lung base. ASSESSMENT: 1. This is a 43-year-old male with history of sickle cell disease, anemia who comes in with diarrhea, cough, and shortness of breath. We would like to rule out COVID-19 as a possibility. 2. Sickle cell disease. 3. Anemia. 4. Hypertension. 5. COPD. PLAN: 1. Continue IV vancomycin and ceftriaxone. 2. Awaiting COVID-19 test results. 3. Continue isolation. 4. We will follow up cultures and adjust antibiotics accordingly. I would like to thank, Dr. Calvillo, for this consultation. Torin Perez M.D. DR: BISMARK JOB#: [id number] CC: Corona Calvillo M.D. [facility]
[2019-12-10 20:00] VITALS: BP 136/91
[2019-12-10] MEDS ORDERED: VIMPAT150 MG PO (20:12)
[2019-12-10] MEDS ORDERED: ACETAMINOPHEN500 M3 ORAL (20:12)
[2019-12-11] VITALS: BP 137/97
[2019-12-11 04:29] VITALS: BP 133/85
[2019-12-11] MEDS: DiphenhydrAMINE 50mg/ml Inj IVP PRN ×2 (04:35→08:51)
[2019-12-11 05:34] LABS: HEMATOCRIT 19.8 % (42.0-52.0); MEAN CORPUSCULAR VOLUME 88 FL (80-99); PLATELET COUNT 320 K/UL (150-450); RED BLOOD COUNT 2.26 M/UL (4.70-6.10); RED CELL DISTRIBUTION WIDTH 15.5 % (11.6-14.8); WHITE BLOOD COUNT 12.6 K/UL (4.8-10.8)
[2019-12-11 05:44] LABS: HEMOGLOBIN 6.6 G/DL (14.2-18.0)
[2019-12-11 06:33] LABS: ALANINE AMINOTRANSFERASE 178 U/L (12-78); ALBUMIN 3.3 G/DL (3.4-5.0); ALBUMIN/GLOBULIN RATIO 1.1 (1.0-2.7); ALKALINE PHOSPHATASE 290 U/L (46-116); ANION GAP 5 mmol/L (5-15); ASPARTATE AMINO TRANSFERASE 113 U/L (15-37); BILIRUBIN,TOTAL 0.5 MG/DL (0.2-1.0); BLOOD UREA NITROGEN 19 mg/dL (7-18); CALCIUM 9.4 MG/DL (8.5-10.1); CARBON DIOXIDE 30 MMOL/L (21-32); CHLORIDE 108 MMOL/L (98-107); CREATININE 0.8 MG/DL (0.55-1.30); POTASSIUM 5.5 MMOL/L (3.5-5.1); SODIUM 143 MMOL/L (136-145)
--- NOTE | 2019-12-11 07:45 | Progress Note ---
DATE: 12/10/2019 SUBJECTIVE: Patient has better pain control. Worsening infiltrate noted on chest x-ray as well as hypoxia. PHYSICAL EXAMINATION: VITAL SIGNS: Blood pressure 122/85, pulse 73, respirations 20. LUNGS: A few rales. CARDIOVASCULAR: Regular rhythm and rate. Normal S1, S2. A 1/6 systolic murmur at lower left sternal border. ABDOMEN: Soft. EXTREMITIES: Trace dependent edema. LABS: Sodium 143, potassium 4.9, bicarb 29, BUN 19, creatinine 0.7. Magnesium 1.5. Pro-natriuretic peptide 810. White count 10, hemoglobin 6.2. IMPRESSION: 1. Sickle cell crisis. 2. Pulmonary hypertension. 3. Community-acquired pneumonia. 4. Hypoxia. 5. Acute diastolic congestive heart failure. 6. Hypertensive heart disease. 7. Worsening anemia. 8. Hypomagnesemia. PLAN: 1. Nasal oxygen. 2. Antimicrobials. 3. IV magnesium. 4. Diuresis. 5. Possible transfusion. 6. Follow up echocardiogram. 7. Consideration for long-term therapy for management of pulmonary hypertension such as . Artie Geller M.D. DR: JATINDER JOB#: [id number] CC:
[2019-12-11 08:00] VITALS: BP 132/93
--- NOTE | 2019-12-11 08:42 | General Progress Note ---
Assessment/Plan Problem List: (1) Dehydration ICD Codes: E86.0 - Dehydration SNOMED: 42370402 (2) Chronic pain ICD Codes: G89.29 - Other chronic pain SNOMED: 62853795 (3) Hyperkalemia ICD Codes: E87.5 - Hyperkalemia SNOMED: 48656453 (4) Sickle cell disease ICD Codes: D57.1 - Sickle-cell disease without crisis SNOMED: 154080393 (5) Interstitial lung disease ICD Codes: J84.9 - Interstitial pulmonary disease, unspecified SNOMED: 07948119, 426860019 (6) Pulmonary HTN ICD Codes: I27.2 - Other secondary pulmonary hypertension SNOMED: 95398028 (7) Anemia ICD Codes: D64.9 - Anemia, unspecified SNOMED: 945380787 (8) Sickle cell crisis ICD Codes: D57.00 - Hb-SS disease with crisis, unspecified SNOMED: 661917784 (9) Intractable pain ICD Codes: R52 - Pain, unspecified SNOMED: 55180396 Status: stable Assessment/Plan: dc ivf kayexylate x 1 check venous duplex legs o2 monitor h/h transfuse prn. defer to heme onc. cont isolation await covid. iv abx ordered id input appreciated tele Subjective ROS Limited/Unobtainable: No Constitutional: Reports: malaise, weakness HEENT: Reports: no symptoms Cardiovascular: Reports: no symptoms Respiratory: Reports: no symptoms Gastrointestinal/Abdominal: Reports: no symptoms Genitourinary: Reports: no symptoms 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: Reports: no symptoms Endocrine: Reports: no symptoms Hematologic/Lymphatic: Reports: no symptoms Allergies: Coded Allergies: PENTAMIDINE ISETHIONATE (Verified Allergy, Severe, palpitations, 08/27/17) AMPICILLIN (Verified Allergy, Unknown, hives, 01/05/18) Tolerated CEftriaxone 01/02/18 KETOROLAC (Verified Allergy, Unknown, 08/03/16) MORPHINE (Verified Allergy, Unknown, 08/03/16) PHENYTOIN (Verified Allergy, Unknown, 08/03/16) All Systems: reviewed and negative except above Subjective no events. pain better controlled. cxr with worsening infiltrate/pneumonitis. covid not back yet. no chest pain. states he wants to go home and that he feels "better." ID and cards noted. K up today. LFTs remain elevated Objective Last 24 Hour Vital Signs Date Time Temp Pulse Resp B/P (MAP) Pulse Ox O2 Delivery O2 Flow Rate FiO2 12/11/19 04:29 98.9 84 19 133/85 (101) 95 12/11/19 04:01 89 12/11/19 00:00 85 12/11/19 00:00 98.0 95 19 137/97 (110) 96 12/10/19 21:00 Nasal Cannula 4.0 12/10/19 20:00 98.6 84 19 136/91 (106) 96 12/10/19 20:00 86 12/10/19 16:17 98.6 12/10/19 16:17 98.6 12/10/19 16:00 98.6 82 18 115/72 (86) 96 12/10/19 15:42 91 12/10/19 12:00 98.6 86 18 110/85 (93) 96 12/10/19 11:44 86 12/10/19 09:00 Nasal Cannula 4.0 Intake and Output 12/10/19 12/11/19 19:00 07:00 Intake Total 150 ml 925.000 ml Balance 150 ml 925.000 ml IV Total 150 ml 925.000 ml Laboratory Tests 12/11/19 05:20: White Blood Count 12.6H, Red Blood Count 2.26L, Hemoglobin 6.6*L, Hematocrit 19.8L, Mean Corpuscular Volume 88, Mean Corpuscular Hemoglobin 29.2, Mean Corpuscular Hemoglobin Concent 33.3, Red Cell Distribution Width 15.5H, Platelet Count 320, Mean Platelet Volume 5.8L, Neutrophils (%) (Auto) , Lymphocytes (%) (Auto) , Monocytes (%) (Auto) , Eosinophils (%) (Auto) , Basophils (%) (Auto) , Neutrophils % (Manual) [Pending], Lymphocytes % (Manual) [Pending], Platelet Estimate [Pending], Platelet Morphology [Pending], Sodium Level 143, Potassium Level 5.5H, Chloride Level 108H, Carbon Dioxide Level 30, Anion Gap 5, Blood Urea Nitrogen 19H, Creatinine 0.8, Estimat Glomerular Filtration Rate > 60, Glucose Level 102, Calcium Level 9.4, Total Bilirubin 0.5 , Aspartate Amino Transf (AST/SGOT) 113H, Alanine Aminotransferase (ALT/SGPT) 178H, Alkaline Phosphatase 290H, Total Protein 6.2L, Albumin 3.3L, Globulin 2.9 , Albumin/Globulin Ratio 1.1 Height (Feet): 5 Height (Inches): 11.00 Weight (Pounds): 143 Objective General Appearance: WD/WN, alert, cachetic EENT: PERRL/EOMI, normal ENT inspection Neck: non-tender, normal alignment, supple Cardiovascular: normal peripheral pulses, normal rate Respiratory/Chest: chest wall non-tender, lungs clear, normal breath sounds, no respiratory distress, no accessory muscle use Abdomen: normal bowel sounds, non tender, soft, no organomegaly Edema: no edema noted Arm (L), no edema noted Arm (R), no edema noted Leg (L), no edema noted Leg (R), no edema noted Pedal (L), no edema noted Pedal (R), no edema noted Generalized Neurologic: labor conciliator 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, alert, oriented x 3, responsive Skin: normal pigmentation Lymphatic: normal anterior cervical (L), normal anterior cervical (R) Corona Calvillo MD December 11, 2019 08:42
[2019-12-11] MEDS ORDERED: Sodium Polystyrene Sulfonate 15gm Powder ORAL SCH (08:45)
[2019-12-11] MEDS: Hydroxyurea 500mg cap ORAL SCH (08:49)
[2019-12-11] MEDS: Lacosamide 50mg tablet ORAL SCH (08:49)
[2019-12-11] MEDS: cefTRIAXone 1 GM in D5W 55 ML IVPB SCH (08:52)
--- NOTE | 2019-12-11 10:14 | Infectious Diseases Prog Note ---
Assessment/Plan Assessment/Plan antibiotics : vancomycin iv, ceftriaxone A 1. r/o COVID-19 pneumonia 2. Sickle cell disease. 3. Anemia. 4. Hypertension. 5. COPD. P 1. Continue IV vancomycin and ceftriaxone. 2. Awaiting COVID-19 test results. 3. Continue isolation. 4. We will follow up cultures and adjust antibiotics accordingly. Subjective ROS Limited/Unobtainable: Yes Constitutional: Denies: fever, chills Respiratory: Denies: shortness of breath, dry cough Gastrointestinal/Abdominal: Denies: nausea, vomiting, diarrhea Musculoskeletal: Reports: pain - decreased Allergies: Coded Allergies: PENTAMIDINE ISETHIONATE (Verified Allergy, Severe, palpitations, 08/27/17) AMPICILLIN (Verified Allergy, Unknown, hives, 01/05/18) Tolerated CEftriaxone 01/02/18 KETOROLAC (Verified Allergy, Unknown, 08/03/16) MORPHINE (Verified Allergy, Unknown, 08/03/16) PHENYTOIN (Verified Allergy, Unknown, 08/03/16) Objective Vital Signs Last 24 Hour Vital Signs Date Time Temp Pulse Resp B/P (MAP) Pulse Ox O2 Delivery O2 Flow Rate FiO2 12/11/19 04:29 98.9 84 19 133/85 (101) 95 12/11/19 04:01 89 12/11/19 00:00 85 12/11/19 00:00 98.0 95 19 137/97 (110) 96 12/10/19 21:00 Nasal Cannula 4.0 12/10/19 20:00 98.6 84 19 136/91 (106) 96 12/10/19 20:00 86 12/10/19 16:17 98.6 12/10/19 16:17 98.6 12/10/19 16:00 98.6 82 18 115/72 (86) 96 12/10/19 15:42 91 12/10/19 12:00 98.6 86 18 110/85 (93) 96 12/10/19 11:44 86 Height (Feet): 5 Height (Inches): 11.00 Weight (Pounds): 143 Laboratory Tests Test 12/11/19 05:20 White Blood Count 12.6 K/UL (4.8-10.8) H Red Blood Count 2.26 M/UL (4.70-6.10) L Hemoglobin 6.6 G/DL (14.2-18.0) *L Hematocrit 19.8 % (42.0-52.0) L Mean Corpuscular Volume 88 FL (80-99) Mean Corpuscular Hemoglobin 29.2 PG (27.0-31.0) Mean Corpuscular Hemoglobin Concent 33.3 G/DL (32.0-36.0) Red Cell Distribution Width 15.5 % (11.6-14.8) H Platelet Count 320 K/UL (150-450) Mean Platelet Volume 5.8 FL (6.5-10.1) L Neutrophils (%) (Auto) % (45.0-75.0) Lymphocytes (%) (Auto) % (20.0-45.0) Monocytes (%) (Auto) % (1.0-10.0) Eosinophils (%) (Auto) % (0.0-3.0) Basophils (%) (Auto) % (0.0-2.0) Differential Total Cells Counted 100 Neutrophils % (Manual) 47 % (45-75) Lymphocytes % (Manual) 32 % (20-45) Monocytes % (Manual) 11 % (1-10) H Eosinophils % (Manual) 10 % (0-3) H Basophils % (Manual) 0 % (0-2) Band Neutrophils 0 % (0-8) Platelet Estimate Adequate Platelet Morphology Normal Polychromasia 1+ Hypochromasia 2+ Anisocytosis 1+ Sodium Level 143 MMOL/L (136-145) Potassium Level 5.5 MMOL/L (3.5-5.1) H Chloride Level 108 MMOL/L (98-107) H Carbon Dioxide Level 30 MMOL/L (21-32) Anion Gap 5 mmol/L (5-15) Blood Urea Nitrogen 19 mg/dL (7-18) H Creatinine 0.8 MG/DL (0.55-1.30) Estimat Glomerular Filtration Rate > 60 mL/min (>60) Glucose Level 102 MG/DL (74-106) Calcium Level 9.4 MG/DL (8.5-10.1) Total Bilirubin 0.5 MG/DL (0.2-1.0) Aspartate Amino Transf (AST/SGOT) 113 U/L (15-37) H Alanine Aminotransferase (ALT/SGPT) 178 U/L (12-78) H Alkaline Phosphatase 290 U/L (46-116) H Total Protein 6.2 G/DL (6.4-8.2) L Albumin 3.3 G/DL (3.4-5.0) L Globulin 2.9 g/dL Albumin/Globulin Ratio 1.1 (1.0-2.7) Current Medications Medications (Trade) Dose Ordered Sig/Anthony Route PRN Reason Start Time Stop Time Status Last Admin Dose Admin Ceftriaxone Sodium 1 gm/ Dextrose 55 ml @ 110 mls/hr Q24H IVPB 12/10/19 09:00 12/17/19 08:59 12/11/19 08:52 Diphenhydramine HCl (Benadryl) 50 mg Q4H PRN IVP Itching 12/08/19 13:00 01/07/20 12:59 12/11/19 08:51 Folic Acid (Folate) 1 mg DAILY ORAL 12/08/19 09:00 01/07/20 08:59 12/11/19 08:50 Hydromorphone HCl (Dilaudid) 2 mg Q4H PRN IVP for severe pain 12/08/19 01:30 12/15/19 01:29 12/11/19 08:51 Hydroxyurea (Hydrea) 500 mg BID ORAL 12/08/19 09:00 12/13/19 08:59 12/11/19 08:49 Lacosamide (Vimpat) 100 mg Q12HR ORAL 12/08/19 09:00 03/07/20 08:59 12/11/19 08:49 Methadone HCl (Methadone HCl) 60 mg EVERY 6 HOURS ORAL 12/08/19 13:00 12/15/19 12:59 12/11/19 06:00 Sodium Chloride 1,000 ml @ 75 mls/hr [id number] IV 12/09/19 08:00 01/08/20 07:59 12/10/19 23:58 Vancomycin HCl (Vanco rx to dose) 1 ea DAILY PRN MISC Per rx protocol 12/10/19 07:45 01/09/20 07:44 Vancomycin/Sodium Chloride 275 ml @ 183.333 mls/hr Q12HR@1000,2200 IVPB 12/10/19 10:00 12/15/19 09:59 12/10/19 21:24 Torin Perez MD December 11, 2019 10:14
[2019-12-11] MEDS: Vancomycin 1.25gm/NS Premix IVPB SCH (10:35)
--- NOTE | 2019-12-12 13:35 | Discharge Summary ---
Discharge Summary Discharge Summary _ DATE OF ADMISSION: 12/07/2019 DATE OF DISCHARGE: 12/11/2019 Patient left AGAINST MEDICAL ADVICE REASON FOR ADMISSION: 44 years old male with past medical history of sickle cell disease , presented with complaints of severe pain and diarrhea. Patient reported 3 days of intractable diarrhea. He denied nausea and vomiting. He denied blood in the stool. No fever or chills. Patient reported mild nonproductive cough. Upon evaluation in emergency room patient had leukocytosis WBC 16, hemoglobin 6.6, reticulocyte count 1.2. Troponin negative , pro BNP 351. AST 60, ALT 109 . Urinalysis revealed no evidence of urinary tract infection. Chest x-ray demonstrated no change in position of right-sided Port-A-Cath. Bilateral reticular nodular interstitial changes and linear opacity throughout the left lung base, likely reflecting scaring superimposed on chronic interstitial lung disease. No evidence of pneumothorax or pleural fluid collection. In emergency department patient received fluids , analgesics, started on empiric antibiotics , swabbed for COVID-19 and admitted for further management. CONSULTANTS: [employer] ID specialist Dr. Perez cost recovery technician/oncologist Dr. Dutton HOSPITAL COURSE: Patient admitted to telemetry floor. Patient initially was kept in isolation. Patient started on aggressive IV hydration. Patient undergone transfusion of 1 unit of packed red blood cells for hemoglobin 6.2 . Folic acid and hydroxyurea continued. Diarrhea resolved. Stool was not collected. LFT were trended, remained elevated. Hepatitis panel was negative. Supplemental oxygen provided and titrated to keep pulse oximetry above 92%. Pulmonary toilet provided. SARS COV2 by PCR on 12/06 came back not detected. Isolation discontinued. Patient was on empiric antibiotic as per ID specialist recommendation. Leukocytosis initially resolved , on day of signing AMA 12.6. No fevers. Renal parameters and electrolytes were closely monitored. Potassium and magnesium corrected. Seizure precaution maintained. Vimpat continued. On 12/10 patient decided to leave AGAINST MEDICAL ADVICE . The risks and consequences of signing AGAINST MEDICAL ADVICE were discussed with patient in detail. Patient verbalized understanding, nevertheless signed AMA form and left. FINAL DIAGNOSES: Sickle cell crisis Anemia of sickle cell disease Suspected COVID-19 infection -ruled out Community-acquired pneumonia Hypoxia Acute diastolic congestive heart failure Hypertensive heart disease Hypomagnesemia COPD Dehydration Hyperkalemia Interstitial lung disease I have been assigned to dictate discharge summary for this account. I was not involved in the patient's management. Mikayla Camara NP December 12, 2019 13:35
== END 2019-12-11 10:35 | disposition left against medical advice (07) | DRG 811 ==
LOC: EMR 18:53 → EDBEDREQ 20:05 → 2E 20:07 → EDBEDREQ 20:49
PROC: 30233N1 Transfusion of Nonautologous Red Blood Cells into Peripheral Vein, Percutaneous Approach (ICD-10-PCS; principal; 2019-12-07)
DX: D57.00 Hb-SS disease with crisis, unspecified (principal); I50.31 Acute diastolic (congestive) heart failure; J18.9 Pneumonia, unspecified organism; J84.9 Interstitial pulmonary disease, unspecified; M87.88 Other osteonecrosis, other site; I82.403 Acute embolism and thrombosis of unspecified deep veins of lower extremity, bilateral; I11.0 Hypertensive heart disease with heart failure; I27.20 Pulmonary hypertension, unspecified; R19.7 Diarrhea, unspecified; G40.909 Epilepsy, unspecified, not intractable, without status epilepticus; Z88.6 Allergy status to analgesic agent; Z88.1 Allergy status to other antibiotic agents; Z88.8 Allergy status to other drugs, medicaments and biological substances; R09.02 Hypoxemia; E83.42 Hypomagnesemia; J44.9 Chronic obstructive pulmonary disease, unspecified; E86.0 Dehydration; E87.5 Hyperkalemia
CPT/HCPCS: 36415; 71045; 80053; 81003; 83735; 83880; 84443; 84484; 85007; 85025; 85044; 86706; 86803; 86850; 86900; 86901; 86920; 87340; 87635; 93306; 99285; J7030